=== PATIENT | male | born 1955 | race Caucasian/White ===

== ENCOUNTER 2016-07-27 00:09 | Inpatient (IN) | payer MEDICARE, MEDICAID ==
[2016-07-27] VITALS (8 sets, daily range): BP systolic 103–149; BP diastolic 57–76
[~2016-07-27] VITALS: Ht 185.4 cm; Wt 72.1 kg
[~2016-07-27 00:09] MED LIST: ACETAMINOP160 MG/54 GT; ALBUTEROL SULF8.5 GM INH; ASCORBIC ACID250 MG GT; ATIVAN1 MG ORAL; ATIVAN4 MG/1 ML IVP; ATORVASTATIN CA10 MG NGT; ATORVASTATIN CA10 MG PO; AUGMENTIN 875-1 EAC1 ORAL; AZO CRANBERRY1 EACH PO; BENADRYL50 MG NG; CIPRO500 MG PO; COGENTIN1 MG ORAL; COLACE100 MG ORAL; CRANBERRY425 MG GT; DEPAKENE L250 MG/5 M GT; DEPAKENE250 MG GT; DEPAKENE250 MG NGT; DEPAKOTE500 MG PO; DEXTROSE 50%-WA50 M1 IV; DIFLUCAN200 MG GT; DILANTIN100 MG ORAL; DIVALPROEX SOD500 MG; DOCUSATE SODIU100 M2 GT; DUONEB 0.5-3(2.53 ML HHN; FAMOTIDINE20 MG GT; FLONASE1 SPRAYS NASAL; HALOPERIDOL1 MG ORAL; HEPARIN SO5000 UNIT6 SUBQ; HEPARIN SO5000 UNITS INJ; HUMALOG 75/255 UNIT1; KEPPRA LIQ100 MG/1 M GT; KEPPRA LIQ100 MG/1 M ORAL; KEPPRA XR750 MG NGT; KEPPRA500 MG ORAL; KEPPRA750 MG GT; KLONOPIN0.5 MG NG; LACTULOSE20 GM/301 ORAL; LANTUS SOL100 UNIT/1 SUBQ; LEVAQUIN750 MG ORAL; LEVEMIR FL100 UNIT/1 SUBQ; LEVETIRACETAM750 MG; LISINOPRIL5 MG; LOPRESSOR25 M1 GT; LORAZEPAM2 MG ORAL; LORAZEPAM2 MG PO; MACROBID100 MG ORAL; METOPROLOL TART25 MG GT; MIRALAX119 GM GT; MIRALAX17 G2 GT; MIRALAX17 GM NGT; MORPHINE 22 MG/1 ML IVP; MULTIVITAMINS1 EAC2 GT; MULTIVITAMINS1 EAC2 ORAL; NEXIUM20 M1 GT; NEXIUM40 MG ORAL; NOVOLOG MI100 UNIT/3 SQ; NOVOLOG MI100 UNITS/ SUBQ; NOVOLOG100 UNIT/3 SUBQ; NOVOLOG100 UNIT/5; NOVOLOG100 UNITS1; NUEDEXTA 20-101 EAC1; NUEDEXTA 20-101 EAC1 PO; OCEAN NASAL2 SPRAYS; OMEPRAZOLE20 M2 ORAL; PEPCID20 MG GT; PEPCID20 MG ORAL; PHENYTOIN SODI100 MG; PHOS-NAK PACKE1 EAC1 GT; POTASSIUM20 MEQ/15 GT; PRINIVIL5 MG NGT; PROCHLORPE10 MG/2 ML IVP; PROSCAR5 MG; PROSCAR5 MG GT; PROSCAR5 MG NGT; PROSCAR5 MG ORAL; PROTONIX40 MG ORAL; PROZAC20 MG ORAL; RANITIDINE HCL150 MG GT; RENVELA0.8 GM GT; RESTORIL30 MG GT; RISPERDAL1 MG ORAL; RISPERDAL2 MG NG; RISPERDAL2 MG ORAL; RISPERIDONE1 MG; RISPERIDONE2 MG; ROCEPHIN 11 GM/50 ML IVPB; TAMSULOSIN HCL0.4 MG; TAMSULOSIN HCL0.4 MG NGT; TYLENOL325 MG GT; TYLENOL650 MG/20. ORAL; VALPROIC A250 MG/51 GT; VALPROIC A500 MG/10 GT; VALPROIC A500 MG/10 ORAL; VANCOMYCIN HCL125 MG GT; VANCOMYCIN1 GM/250 M IVPB; VENTOLIN HFA18 GM INH; VITAMIN C500 M1 GT; VITAMIN C500 M1 ORAL; VITAMIN C500 MG/11 GT; WATER IR; ZANTAC150 MG GT; ZINC SULFATE220 M1 GT; insulin novolog
[2016-07-27] MEDS ORDERED: NS 1000ml 2,200 ML IVLG ONE (00:30)
[2016-07-27] MEDS ORDERED: Acetaminophen 650 MG SUPP RECTAL ONE (00:30)
[2016-07-27] MEDS ORDERED: Tubing IV Cassette IV ONE (01:12)
[2016-07-27 01:23] LABS: KETONES,URINE 3+ (NEGATIVE); LEUKOCYTE ESTERASE ,URINE 2+ (NEGATIVE); NITRITE,URINE NEGATIVE (NEGATIVE); PH,URINE 7 (4.5-8.0); PROTEIN,URINE 2+ (NEGATIVE); UROBILINOGEN,URINE 4 MG/DL (0.0-1.0)
[2016-07-27 01:29] LABS: BASOPHILS % (AUTO) 0.9 % (0.0-2.0); EOSINOPHILS % (AUTO) 0.6 % (0.0-3.0); LYMPHOCYTES % (AUTO) 21.3 % (20.0-45.0); MEAN CORPUSCULAR HEMOGLOBIN 22.3 PG (27.0-31.0); MEAN CORPUSCULAR HGB CONC 31.5 G/DL (32.0-36.0); MEAN CORPUSCULAR VOLUME 71 FL (80-99); MONOCYTES % (AUTO) 11.5 % (1.0-10.0); NEUTROPHILS % (AUTO) 65.8 % (45.0-75.0); PLATELET COUNT 149 K/UL (150-450); RED BLOOD COUNT 7.45 M/UL (4.70-6.10); RED CELL DISTRIBUTION WIDTH 14.1 % (11.6-14.8); WHITE BLOOD COUNT 13.6 K/UL (4.8-10.8)
[2016-07-27 01:37] LABS: INR 1.1 (0.9-1.1); PROTHROMBIN TIME 11.2 SEC (9.30-11.50)
[2016-07-27 01:39] LABS: APPEARANCE,URINE SLIGHTLY CLOUDY
[2016-07-27 01:41] LABS: SQUAMOUS EPITHELIAL CELL,UR FEW /LPF (NONE/OCC)
[2016-07-27 01:42] LABS: BACTERIA,URINE FEW /HPF
[2016-07-27 01:44] LABS: ALANINE AMINOTRANSFERASE 23 U/L (3-41); ALBUMIN/GLOBULIN RATIO 0.8 (1.0-2.7); ANION GAP 16 (5-15); ASPARTATE AMINO TRANSFERASE 22 U/L (5-40); CALCIUM 10.1 mg/dL (8.6-10.2); CARBON DIOXIDE 23 mEQ/L (20-30); CHLORIDE 101 mEQ/L (98-107); CREATININE 0.8 mg/dL (0.7-1.2); GLOMERULAR FILTRATION RATE > 60 mL/min (>60); HEMOLYSIS 46; POTASSIUM 4.8 mEQ/L (3.4-4.9); SODIUM 140 mEQ/L (135-145); TOTAL PROTEIN 8.9 g/dL (6.6-8.7)
[2016-07-27 01:50] LABS: TROPONIN I < 0.30 ng/mL (<=0.30)
[2016-07-27 01:52] LABS: REFLEX LACTIC ACID YES OR NO YES
[2016-07-27] MEDS ORDERED: Zosyn 3.375gm inj ONE (01:57)
[2016-07-27] MEDS ORDERED: NS 100 ML ONE (01:58)
--- NOTE | 2016-07-27 03:51 | Emergency Room Report ---
History of Present Illness General Chief Complaint: Malfunctioning Gastric Tube Source: Medical Record, EMS Present Illness HPI This is a 60-year-old male with multiple medical problems. He resides in a longterm and has a feeding tube. He was just here earlier today for G-tube replacement. A new one was placed and he sent back now because of leaking around it. The new G-tube was only a 16 [place]. No other complaint. Unable to get a further history from the patient. Allergies: Coded Allergies: NO KNOWN DRUG ALLERGIES (Unverified Allergy, Unknown, 08/22/15) Patient History Past Medical History: see triage record, old chart reviewed Past Surgical History: other Pertinent Family History: none Social History: Denies: smoking Immunizations: UTD, other Reviewed Nursing Documentation: PMH: Agreed, PSxH: Agreed Nursing Documentation-PMH Hx Cardiac Problems: Yes Hx Hypertension: Yes Hx Pacemaker: No - SEPSIS Hx Asthma: No - NUSCLE WEAKNESS Hx COPD: Yes Hx Diabetes: Yes Hx Cancer: No Hx Seizures: Yes Hx Speech Problem: Yes Hx Aphasia: Yes Hx Weakness: Yes Review of Systems Eye: Denies: blurred vision, eye pain ENT: Denies: ear pain, nose congestion, throat swelling Respiratory: Denies: cough, shortness of breath Cardiovascular: Denies: chest pain, palpitations Gastrointestinal: Denies: abdominal pain, diarrhea, nausea, vomiting Musculoskeletal: Denies: back pain, joint pain Skin: Denies: rash Neurological: Denies: headache, numbness Endocrine: Denies: increased thirst, increased urine Hematologic/Lymphatic: Denies: easy bruising All Other Systems: limited - Secondary to his condition. Patient is nonverbal. Physical Exam Vital Signs Date Time Temp Pulse Resp B/P Pulse Ox O2 Delivery O2 Flow Rate FiO2 07/27/16 00:10 97.0 131 16 104/71 96 Room Air vitals with fever and tachycardia Sp02 EP Interpretation: reviewed, normal General Appearance: mild distress, Chronically Ill Head: normocephalic, atraumatic Eyes: bilateral eye EOMI, bilateral eye PERRL ENT: hearing grossly normal, normal pharynx Neck: full range of motion, supple, no meningismus Respiratory: chest non-tender, lungs clear, normal breath sounds Cardiovascular #1: regular rate, rhythm - Tachycardia, no murmur Gastrointestinal: normal bowel sounds, non tender, no mass, no organomegaly, no bruit, non-distended, other - G-tube area: This to feeding aching from the stoma. Area is erythematous from the secretion. Musculoskeletal: back normal, other - Extremities contracted Skin: warm/dry Medical Decision Making Diagnostic Impression: Primary Impression: Malfunction of gastrostomy tube Additional Impressions: Dehydration UTI (urinary tract infection) Qualified Codes: N30.00 - Acute cystitis without hematuria Sepsis Qualified Codes: A41.9 - Sepsis, unspecified organism ER Course Patient presents with malfunctioning G-tube. I suspect because 2 small. I replaced with a larger size. There is no leakage. I noticed that he was tachycardic and check a rectal temp he was febrile. Source was probably from urine. Antibiotic started. In November of this year, he grew out Proteus sensitive to Zosyn. Lab Results Impression labs show elevated lactic acid. EKG Diagnostic Results Rate: normal, tachycardiac Rhythm: NSR ST Segments: no acute changes Rhythm Strip Diag. Results EP Interpretation: yes Rate: 110 Rhythm: NSR, no PVC's, no ectopy Chest X-Ray Diagnostic Results EP Interpretation: Yes Findings: no consolidation, no effusion, no pneumothorax, no acute cardiopulmonary disease Number of Views: 1 Other X-Ray Diagnostic Results Other X-Ray Diagnostic Results : X-Ray Ordered: KUB with Gastrografin Date: Jul 27, 2016 Time: 03:50 EP Interpretation: Yes Findings: no fractures, no dislocation, no soft tissue swelling Number of Views: 1 CT/MRI/US Diagnostic Results CT/MRI/US Diagnostic Results : Imaging Test Ordered: CT abdomen and pelvis Impression read by radiologist. No acute process. Last Vital Signs Date Time Temp Pulse Resp B/P Pulse Ox O2 Delivery O2 Flow Rate FiO2 07/27/16 02:16 101.1 125 14 117/72 98 Room Air Status: improved Disposition: ADMITTED INPATIENT Condition: Serious Referrals: TONYA GOOD (PCP) JUSTINE MCCARTHY M.D. Jul 27, 2016 03:51
[2016-07-27 05:26] LABS: CKMB < 1.5 ng/mL (< 6.7)
--- NOTE | 2016-07-27 09:21 | Diagnostic Imaging Report ---
Indication: Abdominal pain Technique: Spiral acquisitions obtained through the abdomen and pelvis. No oral contrast utilized, per emergency room physician request No IV contrast utilized, per referring physician request.. Multiplanar reconstructions were generated. Total dose length product 896 mGycm. CTDIvol(s) 15 mGy Comparison: 04/03/2016 Findings: There is a gastrostomy in place. The balloon is somewhat deep within the gastric lumen rather then pulled up against the inferior gastric wall, but position is otherwise satisfactory. Contrast from previous gastrostomy injection is seen with in the colon. There is some nonspecific mild rectal wall thickening. There is no evidence of diverticulosis or diverticulitis. The appendix is normal. No small bowel distention. No free or loculated intraperitoneal air or fluid. The distal esophagus is unremarkable. The duodenum is unremarkable. Lack of IV contrast limits assessment of solid organs. The gallbladder is nondistended, no gross stones. There is equivocal mild wall thickening, probably an artifact of under distention. The liver, bile ducts, pancreas, spleen, adrenals, right kidney are unremarkable. There is very questionably a tiny left renal calyceal calculus. There is an exophytic lesion coming off of the upper pole of the left kidney which measures 14 mm diameter, demonstrates slightly higher than fluid attenuation, is unchanged in size from the most remote exam of 11/14/2015. A cyst of similar size is demonstrated on a renal ultrasound of 04/04/2016. No retroperitoneal or mesenteric mass or adenopathy. No pelvic mass or adenopathy. Metallic densities are again demonstrated in the left buttock region. A Alexander catheter is present within the bladder. Air within the bladder likely relates to the Alexander catheterization. Fat-containing left inguinal hernia is again demonstrated. The lung bases demonstrate some dependent atelectatic changes. The bones are demineralized. There are degenerative changes of the lumbosacral spine. There is a compression fracture deformity of the L1 vertebral body which is unchanged from previous studies there are inferior endplate compression deformities of the T11 and T10 vertebral bodies which are new since the prior exam. There is a chronic left hip fracture deformity which is unchanged Impression: No definite acute process Equivocal mild gallbladder wall thickening, probably artifact of under distention. Consider ultrasound if there is clinical suspicion for acute cholecystitis area of nonspecific mild rectal wall thickening. Proctitis or mass not excludable. Correlate with clinical findings Gastrostomy in place, somewhat deep within the stomach but position otherwise satisfactory. Note contrast in the colon from recent gastrostomy injection Very questionable tiny left nonobstructive renal calyceal calculus Stable left upper pole renal lesion, probably a cyst based on lack of change from prior studies and apparent presence on recent renal ultrasound L1 vertebral body compression fracture deformity, unchanged. T10 and T11 vertebral body inferior endplate compression fracture deformities, new since 04/03/2016. Consider MRI if this is clinically relevant Left hip fracture deformity, also previously described Other findings as noted, including surgical clips in the left buttock, Alexander catheter, fat-containing left inguinal hernia This agrees with the preliminary interpretation provided overnight by [facility]erad[facility] service. The CT scanner at [facility] is accredited by the [employer] and the scans are performed using protocols designed to limit radiation exposure to as low as reasonably achievable to attain images of sufficient resolution adequate for diagnostic evaluation.
--- NOTE | 2016-07-27 11:29 | Diagnostic Imaging Report ---
Indication: Status post gastrostomy replacement Technique: Supine view of the abdomen after injection of water-soluble contrast into gastrostomy Comparison: none Findings: Contrast opacifies the stomach. No contrast extravasation is demonstrated. The bowel gas pattern is unremarkable. Contrast from previous days gastrostomy injection is demonstrated within the colon. Surgical clips are seen in the left lower quadrant, demonstrated on CT to be within the buttock Impression: Satisfactory position of gastrostomy tube Other findings as noted
[2016-07-27] MEDS ORDERED: Nitroglycerin Subl 0.4mg tab (Bottle Of 25) SL PRN (12:45)
[2016-07-27] MEDS ORDERED: DuoNeb 0.5-3(2.5)mg/3ml neb HHN PRN (12:45)
[2016-07-27] MEDS ORDERED: Morphine Sulfate 2mg/ml Inj IVP PRN (12:45)
[2016-07-27] MEDS ORDERED: Miralax 17gm pkt GT PRN (12:45)
--- NOTE | 2016-07-27 12:52 | Consultation ---
History of Present Illness General Date patient seen: Jul 27, 2016 Chief Complaint: Malfunctioning Gastric Tube Referring physician: Dr. Johnson Reason for Consultation: inpatient management of sepsis Present Illness HPI 60-year-old male with Cerebral Palsy, Gtube, [place] [facility] resident He was just in ER for G-tube replacement. He was sent in again because of tachy cardia and leakage form gtube site. Patient cant give any history and all the information is obtained from the chart. Allergies: Coded Allergies: NO KNOWN DRUG ALLERGIES (Unverified Allergy, Unknown, 08/22/15) Medication History Scheduled Ceftriaxone Sod (Ceftriaxone 1 gm-D5w Bag), 1 GM IVPB DAILY, (Reported) Docusate Sodium (Docusate Sodium), 100 MG GT TWICE A DAY, (Reported) Famotidine (Pepcid), 20 MG GT BEDTIME, (Reported) Finasteride* (Proscar*), 5 MG DAILY, (Reported) Finasteride* (Proscar*), 5 MG ORAL DAILY, (Reported) Fluconazole* (Diflucan*), 200 MG GT DAILY, (Reported) Insulin Glargine (Lantus), 13 SUBQ TWICE A DAY, (Reported) Ipratropium/Albuterol Sulfate (DuoNeb 0.5-3(2.5)mg/3ml), 3 ML HHN Q6HR, ( Reported) Levetiracetam (Keppra), 1,500 MG GT Q12HR, (Reported) Metoprolol Tartrate (Metoprolol Tartrate), 25 MG GT EVERY 12 HOURS, (Reported) Ranitidine Hcl* (Zantac*), 300 MG GT DAILY, (Reported) Risperidone* (Risperdal*), 1 MG ORAL BID Valproic Acid (Depakene), 500 MG GT EVERY 12 HOURS, (Reported) Scheduled PRN Acetaminophen (Acetaminophen), 325 MG ORAL EVERY 6 HOURS PRN for Mild Pain/Temp > 100.5, (Reported) Ipratropium/Albuterol Sulfate (DuoNeb 0.5-3(2.5)mg/3ml), 3 ML HHN Q4HR PRN for Shortness of Breath, (Reported) Polyethylene Glycol 3350* (Miralax*), 17 GM GT DAILY PRN for Constipation, ( Reported) Miscellaneous Medications Insulin Aspart (Novolog Flexpen), (Reported) Insuln Asp Prt/Insulin Aspart (Novolog Mix 70-30 Flexpen Syrn), Unknown Dose SQ, (Reported) Patient History Healthcare decision maker Resuscitation status Advanced Directive on File Past Medical/Surgical History Past Medical/Surgical History: (1) Seizure (2) Schizophrenia (3) Diabetes (4) Hypertension (5) cerebral pulsy with advanced mental retardation (6) Malfunction of gastrostomy tube Social History Social History: (1) skilled nursing resident Review of Systems All Other Systems: negative except mentioned in HPI Physical Exam General Appearance: WD/WN Lines, tubes and drains: peripheral, central line, gtube HEENT: normocephalic, atraumatic Neck: non-tender, normal alignment Respiratory/Chest: chest wall non-tender, lungs clear Cardiovascular/Chest: normal peripheral pulses, normal rate Abdomen: normal bowel sounds, non tender Genitourinary/Rectal: normal genital exam Extremities: normal range of motion Last 24 Hour Vital Signs Date Time Temp Pulse Resp B/P Pulse Ox O2 Delivery O2 Flow Rate FiO2 07/27/16 08:07 99.7 103 14 107/57 96 Room Air 07/27/16 08:00 104 07/27/16 07:39 99.7 103 14 107/57 96 Room Air 07/27/16 05:56 99.7 102 14 106/65 100 Room Air 07/27/16 04:20 99.9 107 13 118/67 98 Room Air 07/27/16 02:16 101.1 125 14 117/72 98 Room Air 07/27/16 01:45 101.1 07/27/16 00:10 97.0 131 16 104/71 96 Room Air Intake and Output 07/26/16 07/27/16 19:00 07:00 Intake Total 2300 ml Balance 2300 ml Intake IV Total 2300 ml Laboratory Tests Test 07/27/16 00:50 07/27/16 03:30 White Blood Count 13.6 K/UL (4.8-10.8) H Red Blood Count 7.45 M/UL (4.70-6.10) H Hemoglobin 16.6 G/DL (14.2-18.0) Hematocrit 52.8 % (42.0-52.0) H Mean Corpuscular Volume 71 FL (80-99) L Mean Corpuscular Hemoglobin 22.3 PG (27.0-31.0) L Mean Corpuscular Hemoglobin Concent 31.5 G/DL (32.0-36.0) L Red Cell Distribution Width 14.1 % (11.6-14.8) Platelet Count 149 K/UL (150-450) L Mean Platelet Volume 12.0 FL (6.5-10.1) H Neutrophils (%) (Auto) 65.8 % (45.0-75.0) Lymphocytes (%) (Auto) 21.3 % (20.0-45.0) Monocytes (%) (Auto) 11.5 % (1.0-10.0) H Eosinophils (%) (Auto) 0.6 % (0.0-3.0) Basophils (%) (Auto) 0.9 % (0.0-2.0) Prothrombin Time 11.2 SEC (9.30-11.50) Prothromb Time International Ratio 1.1 (0.9-1.1) Activated Partial Thromboplast Time 20 SEC (23-33) L Urine Color Yellow Urine Appearance Slightly cloudy Urine pH 7 (4.5-8.0) Urine Specific [place] 1.010 (1.005-1.035) Urine Protein 2+ (NEGATIVE) H Urine Glucose (UA) Negative (NEGATIVE) Urine Ketones 3+ (NEGATIVE) H Urine Occult Blood 2+ (NEGATIVE) H Urine Nitrite Negative (NEGATIVE) Urine Bilirubin Negative (NEGATIVE) Urine Urobilinogen 4 MG/DL (0.0-1.0) H Urine Leukocyte Esterase 2+ (NEGATIVE) H Urine RBC 5-10 /HPF (0 - 0) H Urine WBC 5-10 /HPF (0 - 0) H Urine Squamous Epithelial Cells Few /LPF (NONE/OCC) Urine Bacteria Few /HPF (NONE) Sodium Level 140 mEQ/L (135-145) Potassium Level 4.8 mEQ/L (3.4-4.9) Chloride Level 101 mEQ/L (98-107) Carbon Dioxide Level 23 mEQ/L (20-30) Anion Gap 16 (5-15) H Blood Urea Nitrogen 31 mg/dL (7-23) H Creatinine 0.8 mg/dL (0.7-1.2) Estimat Glomerular Filtration Rate > 60 mL/min (>60) Glucose Level 141 mg/dL (74-106) H Lactic Acid Level 4.00 mmol/L (0.66-2.22) H 1.40 mmol/L (0.66-2.22) Calcium Level 10.1 mg/dL (8.6-10.2) Total Bilirubin 0.5 mg/dL (0.0-1.2) Aspartate Amino Transf (AST/SGOT) 22 U/L (5-40) Alanine Aminotransferase (ALT/SGPT) 23 U/L (3-41) Alkaline Phosphatase 121 U/L (40-129) Total Creatine Kinase 23 U/L (38-174) L Creatine Kinase MB < 1.5 ng/mL (< 6.7) Creatine Kinase MB Relative Index Troponin I < 0.30 ng/mL (<=0.30) Total Protein 8.9 g/dL (6.6-8.7) H Albumin 4.1 g/dL (3.5-5.2) Globulin 4.8 g/dL Albumin/Globulin Ratio 0.8 (1.0-2.7) L Height (Feet): 6 Height (Inches): 1.00 Weight (Pounds): 159 Medications Current Medications Medications (Trade) Dose Ordered Sig/Monalisa Route PRN Reason Start Time Stop Time Status Last Admin Dose Admin Acetaminophen (Tylenol) 650 mg Q4H PRN ORAL fever 07/27/16 12:45 08/26/16 12:44 UNV Albuterol/ Ipratropium 3 ml 3 ml EVERY 4 HOURS PRN HHN Shortness of Breath 07/27/16 12:45 08/01/16 12:44 UNV Cefepime HCl 2 gm/ Dextrose 100 ml @ 100 mls/hr EVERY 12 HOURS IV 07/27/16 21:00 08/03/16 20:59 UNV Finasteride (Proscar) 5 mg DAILY GT 07/28/16 09:00 08/27/16 08:59 UNV Heparin Sodium (Porcine) (Heparin 5000 units/ml) 5,000 units EVERY 12 HOURS SUBQ 07/27/16 21:00 08/26/16 20:59 UNV Levetiracetam (Keppra) 1,500 mg Q12HR GT 07/27/16 21:00 08/26/16 20:59 UNV Morphine Sulfate (Morphine Sulfate) 2 mg EVERY 4 HOURS PRN IVP Moderate Pain (Pain Scale 4-6) 07/27/16 12:45 08/03/16 12:44 UNV Nitroglycerin 0.4 mg 0.4 mg Every 5 Minutes PRN SL Prn Chest Pain 07/27/16 12:45 08/26/16 12:44 UNV Ondansetron HCl (Zofran) 4 mg Q6H PRN IVP Nausea & Vomiting 07/27/16 12:45 08/26/16 12:44 UNV Polyethylene Glycol (Miralax) 17 gm DAILYPRN PRN ORAL Constipation 07/27/16 12:45 08/26/16 12:44 UNV Risperidone (RisperDAL) 1 mg BID ORAL 07/27/16 18:00 08/26/16 17:59 UNV Sodium Chloride (0.45% NS 1000ml) 1,000 ml @ 150 mls/hr Q6H40M IV 07/27/16 12:36 08/26/16 12:35 UNV Temazepam (Restoril) 15 mg HSPRN PRN ORAL Insomnia 07/27/16 12:45 08/03/16 12:44 UNV Valproic Acid (Depakene) 500 mg EVERY 12 HOURS ORAL 07/27/16 21:00 08/26/16 20:59 UNV Vancomycin HCl/ Dextrose (Vancomycin/D5W 250ml) 250 ml @ 167 mls/hr Q24H IV 07/28/16 00:30 08/02/16 00:29 UNV Assessment/Plan Problem List: (1) Hypertension ICD Codes: I10 - Hypertension SNOMED: 31108245 (2) Seizure ICD Codes: R56.9 - Convulsions SNOMED: 86701510 (3) Sepsis ICD Codes: A41.9 - Sepsis SNOMED: 82434394 (4) UTI (urinary tract infection) ICD Codes: N39.0 - Urinary tract infection, site not specified SNOMED: 03947094 Qualifiers: Qualified Codes: N30.00 - Acute cystitis without hematuria (5) Malfunction of gastrostomy tube ICD Codes: K94.23 - Gastrostomy malfunction SNOMED: 819593895 (6) skilled nursing resident ICD Codes: Z59.3 - Problems related to living in residential institution SNOMED: 467415865 (7) cerebral pulsy with advanced mental retardation (8) Schizophrenia ICD Codes: F20.9 - Schizophrenia, unspecified SNOMED: 87819042 Assessment/Plan IV fluids IV antibiotics flowers culture dvt prophylaxis monitor bp and heart rate titrate cardiac meds NEEL LUJAN Jul 27, 2016 12:52
--- NOTE | 2016-07-27 13:47 | Cardiology Report ---
APPROVED REPORT EKG Measurement Heart [id number] Sinus tachycardia Otherwise normal ECG
--- NOTE | 2016-07-27 14:11 | Diagnostic Imaging Report ---
Indication: DYSPNEA Technique: One view of the chest Comparison: 12 hours earlier Findings: Lungs and pleural spaces remain clear. Heart size is normal. Contrast from previous gastrostomy studies is seen within the colon Impression: No acute process
[2016-07-27 15:53] LABS: APPEARANCE,URINE CLEAR; KETONES,URINE 4+ (NEGATIVE); LEUKOCYTE ESTERASE ,URINE 1+ (NEGATIVE); NITRITE,URINE NEGATIVE (NEGATIVE); PH,URINE 8 (4.5-8.0); PROTEIN,URINE 2+ (NEGATIVE); UROBILINOGEN,URINE NORMAL MG/DL (0.0-1.0)
[2016-07-27 15:59] LABS: BACTERIA,URINE FEW /HPF
--- NOTE | 2016-07-27 16:53 | Cardiac Electrophysiology PN ---
Subjective Subjective [id number] Objective Last 24 Hour Vital Signs Date Time Temp Pulse Resp B/P Pulse Ox O2 Delivery O2 Flow Rate FiO2 07/27/16 16:00 97.7 136 33 149/76 96 Room Air 07/27/16 12:00 98.1 113 16 103/67 96 Room Air 07/27/16 08:07 99.7 103 14 107/57 96 Room Air 07/27/16 08:00 104 07/27/16 08:00 97.7 103 18 104/64 97 Room Air 07/27/16 07:39 99.7 103 14 107/57 96 Room Air 07/27/16 05:56 99.7 102 14 106/65 100 Room Air 07/27/16 04:20 99.9 107 13 118/67 98 Room Air 07/27/16 02:16 101.1 125 14 117/72 98 Room Air 07/27/16 01:45 101.1 07/27/16 00:10 97.0 131 16 104/71 96 Room Air Intake and Output 07/26/16 07/27/16 19:00 07:00 Intake Total 2300 ml Balance 2300 ml Intake IV Total 2300 ml Laboratory Tests Test 07/27/16 00:50 07/27/16 03:30 07/27/16 15:00 White Blood Count 13.6 K/UL (4.8-10.8) H Red Blood Count 7.45 M/UL (4.70-6.10) H Hemoglobin 16.6 G/DL (14.2-18.0) Hematocrit 52.8 % (42.0-52.0) H Mean Corpuscular Volume 71 FL (80-99) L Mean Corpuscular Hemoglobin 22.3 PG (27.0-31.0) L Mean Corpuscular Hemoglobin Concent 31.5 G/DL (32.0-36.0) L Red Cell Distribution Width 14.1 % (11.6-14.8) Platelet Count 149 K/UL (150-450) L Mean Platelet Volume 12.0 FL (6.5-10.1) H Neutrophils (%) (Auto) 65.8 % (45.0-75.0) Lymphocytes (%) (Auto) 21.3 % (20.0-45.0) Monocytes (%) (Auto) 11.5 % (1.0-10.0) H Eosinophils (%) (Auto) 0.6 % (0.0-3.0) Basophils (%) (Auto) 0.9 % (0.0-2.0) Prothrombin Time 11.2 SEC (9.30-11.50) Prothromb Time International Ratio 1.1 (0.9-1.1) Activated Partial Thromboplast Time 20 SEC (23-33) L Urine Color Yellow Yellow Urine Appearance Slightly cloudy Clear Urine pH 7 (4.5-8.0) 8 (4.5-8.0) Urine Specific [place] 1.010 (1.005-1.035) 1.015 (1.005-1.035) Urine Protein 2+ (NEGATIVE) H 2+ (NEGATIVE) H Urine Glucose (UA) Negative (NEGATIVE) Negative (NEGATIVE) Urine Ketones 3+ (NEGATIVE) H 4+ (NEGATIVE) H Urine Occult Blood 2+ (NEGATIVE) H 1+ (NEGATIVE) H Urine Nitrite Negative (NEGATIVE) Negative (NEGATIVE) Urine Bilirubin Negative (NEGATIVE) Negative (NEGATIVE) Urine Urobilinogen 4 MG/DL (0.0-1.0) H Normal MG/DL (0.0-1.0) Urine Leukocyte Esterase 2+ (NEGATIVE) H 1+ (NEGATIVE) H Urine RBC 5-10 /HPF (0 - 0) H 2-4 /HPF (0 - 0) H Urine WBC 5-10 /HPF (0 - 0) H 5-10 /HPF (0 - 0) H Urine Squamous Epithelial Cells Few /LPF (NONE/OCC) None /LPF (NONE/OCC) Urine Bacteria Few /HPF (NONE) Few /HPF (NONE) Sodium Level 140 mEQ/L (135-145) Potassium Level 4.8 mEQ/L (3.4-4.9) Chloride Level 101 mEQ/L (98-107) Carbon Dioxide Level 23 mEQ/L (20-30) Anion Gap 16 (5-15) H Blood Urea Nitrogen 31 mg/dL (7-23) H Creatinine 0.8 mg/dL (0.7-1.2) Estimat Glomerular Filtration Rate > 60 mL/min (>60) Glucose Level 141 mg/dL (74-106) H Lactic Acid Level 4.00 mmol/L (0.66-2.22) H 1.40 mmol/L (0.66-2.22) Calcium Level 10.1 mg/dL (8.6-10.2) Total Bilirubin 0.5 mg/dL (0.0-1.2) Aspartate Amino Transf (AST/SGOT) 22 U/L (5-40) Alanine Aminotransferase (ALT/SGPT) 23 U/L (3-41) Alkaline Phosphatase 121 U/L (40-129) Total Creatine Kinase 23 U/L (38-174) L Creatine Kinase MB < 1.5 ng/mL (< 6.7) Creatine Kinase MB Relative Index Troponin I < 0.30 ng/mL (<=0.30) Total Protein 8.9 g/dL (6.6-8.7) H Albumin 4.1 g/dL (3.5-5.2) Globulin 4.8 g/dL Albumin/Globulin Ratio 0.8 (1.0-2.7) L HUMPHREY FRANCO Jul 27, 2016 16:53
--- NOTE | 2016-07-27 17:29 | Wound Care Consultation ---
Wound Assessment Wound Assessment #1: Wound Present on Admission: Yes New Wound: No Status Change of Wound: No Wound Location Body Site Modif: right Wound Location Body Site: heel Wound Type: pressure ulcer Terry Test: Does not Terry Pressure Ulcer Stage: deep tissue injury Wound Thickness: Full Thickness Wound Length: 5.0 Wound Width: 5.0 Wound Depth: utd Percent of Wound Purple/Maroon: 100 Wound Drainage Amount: None Wound Drainage Odor: None/Absent Tissue Surrounding Wound: Erythemic Wound General Appearance: Asymptomatic, Reddened Wound Assessment #2: Wound Number: #2 Wound Present on Admission: Yes New Wound: No Status Change of Wound: No Wound Location Body Site Modif: right Wound Location Body Site: toe - 2nd Wound Type: pressure ulcer Terry Test: Does not Terry Pressure Ulcer Stage: deep tissue injury Wound Thickness: Full Thickness Wound Length: 0.5 Wound Width: 0.5 Wound Depth: utd Percent of Wound Purple/Maroon: 100 Wound Drainage Amount: None Wound Drainage Odor: None/Absent Tissue Surrounding Wound: Intact Wound General Appearance: Asymptomatic, Reddened Wound Assessment #3: Wound Number: #3 Wound Present on Admission: Yes New Wound: No Status Change of Wound: No Wound Location Body Site Modif: right Wound Location Body Site: toe - 3rd Wound Type: pressure ulcer Terry Test: Does not Terry Pressure Ulcer Stage: deep tissue injury Wound Thickness: Full Thickness Wound Length: 0.3 Wound Width: 0.3 Wound Depth: utd Percent of Wound Purple/Maroon: 100 Wound Drainage Amount: None Wound Drainage Odor: None/Absent Tissue Surrounding Wound: Intact Wound General Appearance: Asymptomatic, Reddened Wound Assessment #4: Wound Number: #4 Wound Present on Admission: Yes New Wound: No Status Change of Wound: No Wound Location Body Site Modif: right Wound Location Body Site: toe - 4th Wound Type: pressure ulcer Terry Test: Does not Terry Pressure Ulcer Stage: deep tissue injury Wound Thickness: Full Thickness Wound Length: 0.3 Wound Width: 0.3 Wound Depth: utd Percent of Wound Purple/Maroon: 100 Wound Drainage Amount: None Wound Drainage Odor: None/Absent Tissue Surrounding Wound: Intact Wound General Appearance: Asymptomatic, Reddened Wound Comment #1 Right heel DTI #2 Right 2nd, 3rd,and 4th toe DTI #3 GT site redness with erosion Recommendation -Keep clean and dry -Turn and reposition -Local wound care as ordered -Optimize nutrition -Offload both heels -Low air loss overlay mattress -Assess and f/u accordingly for any changes PAIGE ZIMMERMAN RN Jul 27, 2016 17:29
[2016-07-27] MEDS: Heparin 5000 units/ml inj SUBQ SCH (20:34)
[2016-07-27] MEDS: Valproic Acid 250mg/5ml Liquid GT SCH (20:36)
[2016-07-27] MEDS: levETIRAcetam 500mg/5ml Liquid GT SCH (20:36)
--- NOTE | 2016-07-27 22:27 | Consultation ---
DATE OF CONSULTATION: 07/27/2016 CARDIOLOGY CONSULTATION CONSULTING PHYSICIAN: Sage Araujo M.D. REFERRING PHYSICIAN: Donaldo Johnson D.O. REASON FOR CONSULTATION: Tachycardia with heart rate in the 140s. HISTORY OF PRESENT ILLNESS: The patient is a 60-year-old gentleman with history of cerebral palsy and history of G-tube, who is a correction resident was in the ER for G-tube replacement. He was sent again because of tachycardia and leakage from the G-tube site. The patient is nonverbal and old information was obtained from review of the records and discussion with the nurse and Dr. Gracia. While the patient was in the , the patient was found to be tachycardia with heart rate up to 140s. Cardiology consultation was obtained for further evaluation. PAST MEDICAL HISTORY: 1. Hypertension. 2. History of cerebral palsy. 3. History of dysphagia status post G-tube. 4. Seizure disorder. 5. Schizophrenia. MEDICATIONS: Include Proscar, Diflucan, Lantus, Keppra, Risperdal, and . FAMILY HISTORY: Noncontributory. REVIEW OF SYSTEMS: Cannot be obtained. PHYSICAL EXAMINATION: VITAL SIGNS: Blood pressure is 149/76, pulse 130, respiration 33, and temperature 97.7 degrees. HEAD AND NECK: Shows no JVD. LUNGS: Coarse rhonchi. CARDIOVASCULAR: Irregularly irrregular S1 and S2 with no gallop or murmur. Tachycardic. ABDOMEN: Status post G-tube was clamped. EXTREMITIES: No pitting edema. LABORATORY DATA: His laboratories showed white count 13.7, hematocrit of 16.6, and hematocrit 32.8. Sodium 140, potassium 4.8, BUN 31, creatinine 0.8, and glucose 141. Troponin is negative. ASSESSMENT AND PLAN: 1. Tachycardia. He had an EKG that showed like sinus tachycardia. There is no clear evidence of atrial fibrillation or atrial flutter. It is likely to patient's sepsis. We will give the patient intravenous fluids and continue the patient on intravenous antibiotic. Hopefully, we does not reassure that his heart rate is going to improve. The patient is likely also dehydrated in view of patient's azotemia with BUN of 31 and creatinine of 0.8. His troponin is negative. 2. Gastrostomy tube malfunction. The tube is clamped. The patient is on intravenous antibiotics. 3. Cerebral palsy. 4. Seizure disorder. 5. Schizophrenia. An echocardiogram will also be ordered for further evaluation. Thank you very much, Dr. Johnson, for allowing me to participate in the care of this patient. Please do not hesitate to contact me for any questions regarding my evaluation. The case was discussed with Dr. Gracia as well. Sage Araujo M.D. DR: MYESHA JOB#: [id number] CC:
[2016-07-28] VITALS (8 sets, daily range): BP systolic 84–109; BP diastolic 52–71
[2016-07-28 06:46] LABS: BASOPHILS % (AUTO) 0.6 % (0.0-2.0); EOSINOPHILS % (AUTO) 1.1 % (0.0-3.0); LYMPHOCYTES % (AUTO) 7.8 % (20.0-45.0); MEAN CORPUSCULAR HEMOGLOBIN 22.2 PG (27.0-31.0); MEAN CORPUSCULAR HGB CONC 31.3 G/DL (32.0-36.0); MEAN CORPUSCULAR VOLUME 71 FL (80-99); MEAN PLATELET VOLUME 9.6 FL (6.5-10.1); MONOCYTES % (AUTO) 14.1 % (1.0-10.0); NEUTROPHILS % (AUTO) 76.5 % (45.0-75.0); PLATELET COUNT 188 K/UL (150-450); RED BLOOD COUNT 5.37 M/UL (4.70-6.10); RED CELL DISTRIBUTION WIDTH 13.2 % (11.6-14.8); WHITE BLOOD COUNT 13.2 K/UL (4.8-10.8)
[2016-07-28 06:56] LABS: ALANINE AMINOTRANSFERASE 14 U/L (3-41); ALBUMIN/GLOBULIN RATIO 0.9 (1.0-2.7); ANION GAP 16 (5-15); ASPARTATE AMINO TRANSFERASE 11 U/L (5-40); CALCIUM 8.4 mg/dL (8.6-10.2); CARBON DIOXIDE 21 mEQ/L (20-30); CHLORIDE 104 mEQ/L (98-107); CREATININE 0.7 mg/dL (0.7-1.2); GLOMERULAR FILTRATION RATE > 60 mL/min (>60); HEMOLYSIS 3; SODIUM 141 mEQ/L (135-145); TOTAL PROTEIN 6.5 g/dL (6.6-8.7)
[2016-07-28 07:22] LABS: TROPONIN I < 0.30 ng/mL (<=0.30)
[2016-07-28] MEDS: Valproic Acid 250mg/5ml Liquid GT SCH ×2 (09:41→21:03)
[2016-07-28] MEDS: levETIRAcetam 500mg/5ml Liquid GT SCH ×2 (09:42→21:03)
[2016-07-28] MEDS: Heparin 5000 units/ml inj SUBQ SCH ×2 (09:44→21:11)
--- NOTE | 2016-07-28 11:32 | Pulmonology Progress Note ---
Assessment/Plan Problems: (1) Hypertension (2) Seizure (3) Sepsis (4) UTI (urinary tract infection) (5) Malfunction of gastrostomy tube (6) [facility] resident (7) cerebral pulsy with advanced mental retardation (8) Schizophrenia Respiratory: monitor respiratory rate Cardiac: continue to monitor HR/BP Renal: F/U I&O, keep IV fluid Infectious Disease: check cultures, continue antibiotics Gastrointestinal: hold feedings, other - GI evaluaiton Endocrine: continue sliding scale insulin Hematologic: monitor H/H, transfuse if hgb<8.5 Neurologic: PRN Ativan, PRN Morphine, keep patient comfortable Affect: PRN ativan Time Spent (Minutes): 40 Notes Reviewed: district manager in training, cardio Discussed with: nurses, consultants, case fitter Subjective ROS Limited/Unobtainable: Yes Allergies: Coded Allergies: NO KNOWN DRUG ALLERGIES (Unverified Allergy, Unknown, 08/22/15) Objective Last 24 Hour Vital Signs Date Time Temp Pulse Resp B/P Pulse Ox O2 Delivery O2 Flow Rate FiO2 07/28/16 08:01 97.7 20 98/52 99 Room Air 07/28/16 08:00 87 07/28/16 04:00 97.7 103 21 100/55 96 Room Air 07/28/16 03:47 93 07/28/16 00:00 97.8 93 19 99/71 99 Room Air 07/27/16 23:42 96 07/27/16 20:00 127 07/27/16 20:00 98.1 121 20 115/71 97 Room Air 07/27/16 16:00 97.7 136 33 149/76 96 Room Air 07/27/16 16:00 112 07/27/16 12:00 98.1 113 16 103/67 96 Room Air Intake and Output 07/27/16 07/28/16 19:00 07:00 Intake Total 650 ml 1135 ml Output Total 400 ml 725 ml Balance 250 ml 410 ml Intake Oral 1 ml IV Total 650 ml 1134 ml Output Urine Total 400 ml 725 ml # Bowel Movements 4 General Appearance: WD/WN HEENT: normocephalic Respiratory/Chest: chest wall non-tender, lungs clear Cardiovascular: normal peripheral pulses, normal rate Abdomen: normal bowel sounds, soft, non tender Genitourinary: normal external genitalia Extremities: no cyanosis Skin: no rash, no ulcers Neurologic/Psychiatric: assembler golf 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 head II-XII grossly normal Lymphatic: no neck adenopathy Microbiology Date/Time Source Procedure Growth Status 07/27/16 01:10 Blood Blood Culture - Preliminary NO GROWTH AFTER 24 HOURS Resulted 07/27/16 00:50 Blood Blood Culture - Preliminary NO GROWTH AFTER 24 HOURS Resulted Laboratory Tests 07/27/16 15:00: Urine Color Yellow, Urine Appearance Clear, Urine pH 8, Urine Specific [place] 1.015, Urine Protein 2+H, Urine Glucose (UA) Negative, Urine Ketones 4+H, Urine Occult Blood 1+H, Urine Nitrite Negative, Urine Bilirubin Negative, Urine Urobilinogen Normal, Urine Leukocyte Esterase 1+H, Urine RBC 2-4H, Urine WBC 5- 10H, Urine Squamous Epithelial Cells None, Urine Bacteria Few 07/28/16 06:10: White Blood Count 13.2H, Red Blood Count 5.37, Hemoglobin 11.9L, Hematocrit 38.1L, Mean Corpuscular Volume 71L, Mean Corpuscular Hemoglobin 22.2L, Mean Corpuscular Hemoglobin Concent 31.3L, Red Cell Distribution Width 13.2, Platelet Count 188, Mean Platelet Volume 9.6, Neutrophils (%) (Auto) 76.5H, Lymphocytes (%) (Auto) 7.8L, Monocytes (%) (Auto) 14.1H, Eosinophils (%) (Auto) 1.1, Basophils (%) (Auto) 0.6, Sodium Level 141, Potassium Level 4.0, Chloride Level 104, Carbon Dioxide Level 21, Anion Gap 16H, Blood Urea Nitrogen 16, Creatinine 0.7, Estimat Glomerular Filtration Rate > 60, Glucose Level 135H, Calcium Level 8.4L, Total Bilirubin 0.5, Aspartate Amino Transf (AST/SGOT) 11, Alanine Aminotransferase (ALT/SGPT) 14, Alkaline Phosphatase 81, Troponin I < 0.30, Pro-B-Type Natriuretic Peptide 187H, Total Protein 6.5L, Albumin 3.2L, Globulin 3.3, Albumin/Globulin Ratio 0.9L Current Medications Medications (Trade) Dose Ordered Sig/Monalisa Route PRN Reason Start Time Stop Time Status Last Admin Dose Admin Acetaminophen (Tylenol) 650 mg Q4H PRN ORAL fever 07/27/16 12:45 08/26/16 12:44 Albuterol/ Ipratropium 3 ml 3 ml Q4H PRN HHN Shortness of Breath 07/27/16 12:45 08/01/16 12:44 Cefepime HCl 2 gm/ Dextrose 100 ml @ 100 mls/hr Q12H IV 07/27/16 14:30 08/03/16 14:29 07/28/16 02:00 Finasteride (Proscar) 5 mg DAILY GT 07/28/16 09:00 08/27/16 08:59 07/28/16 09:00 Heparin Sodium (Porcine) (Heparin 5000 units/ml) 5,000 units EVERY 12 HOURS SUBQ 07/27/16 21:00 08/26/16 20:59 07/28/16 09:44 Levetiracetam (Keppra) 1,500 mg Q12HR GT 07/27/16 21:00 08/26/16 20:59 07/28/16 09:42 Morphine Sulfate (Morphine Sulfate) 2 mg Q4H PRN IVP Moderate Pain (Pain Scale 4-6) 07/27/16 12:45 08/03/16 12:44 Nitroglycerin 0.4 mg 0.4 mg Q5M X 3 DOSES PRN SL Prn Chest Pain 07/27/16 12:45 08/26/16 12:44 Ondansetron HCl (Zofran) 4 mg Q6H PRN IVP Nausea & Vomiting 07/27/16 12:45 08/26/16 12:44 Polyethylene Glycol (Miralax) 17 gm DAILYPRN PRN GT Constipation 07/27/16 12:45 08/26/16 12:44 Risperidone (RisperDAL) 1 mg BID ORAL 07/27/16 18:00 08/26/16 17:59 07/28/16 09:40 Sodium Chloride (0.45% NS 1000ml) 1,000 ml @ 150 mls/hr Q6H40M IV 07/27/16 14:00 08/26/16 13:59 07/28/16 09:46 Temazepam (Restoril) 15 mg HSPRN PRN GT Insomnia 07/27/16 12:45 08/03/16 12:44 Valproic Acid (Depakene) 500 mg EVERY 12 HOURS GT 07/27/16 21:00 08/26/16 20:59 12/31/16 09:41 Vancomycin HCl/ Dextrose (Vancomycin/D5W 250ml) 250 ml @ 167 mls/hr Q12H IVPB 07/27/16 15:30 08/01/16 15:29 07/28/16 03:01 NEEL LUJAN Jul 28, 2016 11:32
[2016-07-28] MEDS ORDERED: Morphine Sulfate 2mg/ml Inj IVP PRN (13:00)
[2016-07-28] MEDS ORDERED: Nitroglycerin Subl 0.4mg tab (Bottle Of 25) SL PRN (14:15)
--- NOTE | 2016-07-28 14:37 | Diagnostic Imaging Report ---
Indication: SOB Technique: One view of the chest Comparison: 04/03/2016 Findings: Contrast from recent gastrostomy injection is seen within the colon. Lungs and pleural space are clear except for minimal right perihilar atelectasis. Heart size is normal. There is no significant interim change Impression: No acute process
[2016-07-28] MEDS ORDERED: LORazepam 1mg tab ORAL PRN (14:45)
[2016-07-28] MEDS ORDERED: LORazepam 1mg tab GT PRN (14:58)
[2016-07-28] MEDS ORDERED: Miralax 17gm pkt GT PRN (15:00)
[2016-07-28] MEDS ORDERED: DuoNeb 0.5-3(2.5)mg/3ml neb HHN PRN (15:00)
--- NOTE | 2016-07-28 15:11 | General Progress Note ---
Assessment/Plan Problem List: (1) Acute lower UTI (2) Seizure disorder, complex partial ICD Codes: G40.209 - Localization-related (focal) (partial) symptomatic epilepsy and epileptic syndromes with complex partial seizures, not intractable , without status epilepticus SNOMED: 244840703 (3) Seizure ICD Codes: R56.9 - Seizure SNOMED: 81373885 (4) Hyperlipidemia ICD Codes: E78.5 - Hyperlipidemia SNOMED: 67914509 (5) Schizophrenia ICD Codes: F20.9 - Schizophrenia, unspecified SNOMED: 88732389 (6) Diabetes ICD Codes: E11.9 - Diabetes SNOMED: 00840605 (7) Sepsis ICD Codes: A41.9 - Sepsis SNOMED: 22599287 Status: progressing Assessment/Plan afebrile abx per pulmonary vitals stable cp reviewed chart and labs Subjective ROS Limited/Unobtainable: Yes Constitutional: Reports: no symptoms Allergies: Coded Allergies: NO KNOWN DRUG ALLERGIES (Unverified Allergy, Unknown, 08/22/15) Objective Last 24 Hour Vital Signs Date Time Temp Pulse Resp B/P Pulse Ox O2 Delivery O2 Flow Rate FiO2 07/28/16 12:00 83 07/28/16 12:00 97.8 19 105/61 99 Room Air 07/28/16 08:01 97.7 20 98/52 99 Room Air 07/28/16 08:00 87 07/28/16 04:00 97.7 103 21 100/55 96 Room Air 07/28/16 03:47 93 07/28/16 00:00 97.8 93 19 99/71 99 Room Air 07/27/16 23:42 96 07/27/16 20:00 127 07/27/16 20:00 98.1 121 20 115/71 97 Room Air 07/27/16 16:00 97.7 136 33 149/76 96 Room Air 07/27/16 16:00 112 Intake and Output 07/27/16 07/28/16 19:00 07:00 Intake Total 650 ml 1135 ml Output Total 400 ml 725 ml Balance 250 ml 410 ml Intake Oral 1 ml IV Total 650 ml 1134 ml Output Urine Total 400 ml 725 ml # Bowel Movements 4 Laboratory Tests 07/28/16 06:10: White Blood Count 13.2H, Red Blood Count 5.37, Hemoglobin 11.9L, Hematocrit 38.1L, Mean Corpuscular Volume 71L, Mean Corpuscular Hemoglobin 22.2L, Mean Corpuscular Hemoglobin Concent 31.3L, Red Cell Distribution Width 13.2, Platelet Count 188, Mean Platelet Volume 9.6, Neutrophils (%) (Auto) 76.5H, Lymphocytes (%) (Auto) 7.8L, Monocytes (%) (Auto) 14.1H, Eosinophils (%) (Auto) 1.1, Basophils (%) (Auto) 0.6, Sodium Level 141, Potassium Level 4.0, Chloride Level 104, Carbon Dioxide Level 21, Anion Gap 16H, Blood Urea Nitrogen 16, Creatinine 0.7, Estimat Glomerular Filtration Rate > 60, Glucose Level 135H, Calcium Level 8.4L, Total Bilirubin 0.5, Aspartate Amino Transf (AST/SGOT) 11, Alanine Aminotransferase (ALT/SGPT) 14, Alkaline Phosphatase 81, Troponin I < 0.30, Pro-B-Type Natriuretic Peptide 187H, Total Protein 6.5L, Albumin 3.2L, Globulin 3.3, Albumin/Globulin Ratio 0.9L Height (Feet): 6 Height (Inches): 1.00 Weight (Pounds): 159 EENT: PERRL/EOMI Neck: supple Cardiovascular: normal rate Respiratory/Chest: lungs clear Abdomen: soft Amy Martínez MD Jul 28, 2016 15:11
--- NOTE | 2016-07-28 15:19 | General Progress Note ---
Assessment/Plan Assessment/Plan Assessment (1) Seizure (2) Schizophrenia (3) Diabetes (4) Hypertension (5) cerebral pulsy with advanced mental retardation (6) Malfunction of gastrostomy tube - leakage Recommendations - Trial of TF - GT repositioned - Check C Diff - May need G to J conversion Subjective Allergies: Coded Allergies: NO KNOWN DRUG ALLERGIES (Unverified Allergy, Unknown, 08/22/15) Objective Last 24 Hour Vital Signs Date Time Temp Pulse Resp B/P Pulse Ox O2 Delivery O2 Flow Rate FiO2 07/28/16 12:00 83 07/28/16 12:00 97.8 19 105/61 99 Room Air 07/28/16 08:01 97.7 20 98/52 99 Room Air 07/28/16 08:00 87 07/28/16 04:00 97.7 103 21 100/55 96 Room Air 07/28/16 03:47 93 07/28/16 00:00 97.8 93 19 99/71 99 Room Air 07/27/16 23:42 96 07/27/16 20:00 127 07/27/16 20:00 98.1 121 20 115/71 97 Room Air 07/27/16 16:00 97.7 136 33 149/76 96 Room Air 07/27/16 16:00 112 Intake and Output 07/27/16 07/28/16 19:00 07:00 Intake Total 650 ml 1135 ml Output Total 400 ml 725 ml Balance 250 ml 410 ml Intake Oral 1 ml IV Total 650 ml 1134 ml Output Urine Total 400 ml 725 ml # Bowel Movements 4 Laboratory Tests 07/28/16 06:10: White Blood Count 13.2H, Red Blood Count 5.37, Hemoglobin 11.9L, Hematocrit 38.1L, Mean Corpuscular Volume 71L, Mean Corpuscular Hemoglobin 22.2L, Mean Corpuscular Hemoglobin Concent 31.3L, Red Cell Distribution Width 13.2, Platelet Count 188, Mean Platelet Volume 9.6, Neutrophils (%) (Auto) 76.5H, Lymphocytes (%) (Auto) 7.8L, Monocytes (%) (Auto) 14.1H, Eosinophils (%) (Auto) 1.1, Basophils (%) (Auto) 0.6, Sodium Level 141, Potassium Level 4.0, Chloride Level 104, Carbon Dioxide Level 21, Anion Gap 16H, Blood Urea Nitrogen 16, Creatinine 0.7, Estimat Glomerular Filtration Rate > 60, Glucose Level 135H, Calcium Level 8.4L, Total Bilirubin 0.5, Aspartate Amino Transf (AST/SGOT) 11, Alanine Aminotransferase (ALT/SGPT) 14, Alkaline Phosphatase 81, Troponin I < 0.30, Pro-B-Type Natriuretic Peptide 187H, Total Protein 6.5L, Albumin 3.2L, Globulin 3.3, Albumin/Globulin Ratio 0.9L Height (Feet): 6 Height (Inches): 1.00 Weight (Pounds): 159 ANTHONYEVONKIMBERLY Jul 28, 2016 15:19
--- NOTE | 2016-07-28 15:21 | Cardiac Electrophysiology PN ---
Assessment/Plan Assessment/Plan 1. Sinus Tachycardia. With no evidence of atrial fibrillation or atrial flutter. It is likely to patient's sepsis. Continue intravenous fluids and intravenous antibiotic. The patient is likely also dehydrated in view of patient's azotemia with BUN of 31 and creatinine of 0.8. His troponin is negative. 2. Gastrostomy tube malfunction. The tube is clamped. The patient is on intravenous antibiotics. 3. Cerebral palsy. 4. Seizure disorder. 5. Schizophrenia. DIXON SORENSEN DC tele Subjective Subjective Nonverbal. No events overnight. Comfortable. Objective Last 24 Hour Vital Signs Date Time Temp Pulse Resp B/P Pulse Ox O2 Delivery O2 Flow Rate FiO2 07/28/16 12:00 83 07/28/16 12:00 97.8 19 105/61 99 Room Air 07/28/16 08:01 97.7 20 98/52 99 Room Air 07/28/16 08:00 87 07/28/16 04:00 97.7 103 21 100/55 96 Room Air 07/28/16 03:47 93 07/28/16 00:00 97.8 93 19 99/71 99 Room Air 07/27/16 23:42 96 07/27/16 20:00 127 07/27/16 20:00 98.1 121 20 115/71 97 Room Air 07/27/16 16:00 97.7 136 33 149/76 96 Room Air 07/27/16 16:00 112 Intake and Output 07/27/16 07/28/16 19:00 07:00 Intake Total 650 ml 1135 ml Output Total 400 ml 725 ml Balance 250 ml 410 ml Intake Oral 1 ml IV Total 650 ml 1134 ml Output Urine Total 400 ml 725 ml # Bowel Movements 4 Laboratory Tests Test 07/28/16 06:10 White Blood Count 13.2 K/UL (4.8-10.8) H Red Blood Count 5.37 M/UL (4.70-6.10) Hemoglobin 11.9 G/DL (14.2-18.0) L Hematocrit 38.1 % (42.0-52.0) L Mean Corpuscular Volume 71 FL (80-99) L Mean Corpuscular Hemoglobin 22.2 PG (27.0-31.0) L Mean Corpuscular Hemoglobin Concent 31.3 G/DL (32.0-36.0) L Red Cell Distribution Width 13.2 % (11.6-14.8) Platelet Count 188 K/UL (150-450) Mean Platelet Volume 9.6 FL (6.5-10.1) Neutrophils (%) (Auto) 76.5 % (45.0-75.0) H Lymphocytes (%) (Auto) 7.8 % (20.0-45.0) L Monocytes (%) (Auto) 14.1 % (1.0-10.0) H Eosinophils (%) (Auto) 1.1 % (0.0-3.0) Basophils (%) (Auto) 0.6 % (0.0-2.0) Sodium Level 141 mEQ/L (135-145) Potassium Level 4.0 mEQ/L (3.4-4.9) Chloride Level 104 mEQ/L (98-107) Carbon Dioxide Level 21 mEQ/L (20-30) Anion Gap 16 (5-15) H Blood Urea Nitrogen 16 mg/dL (7-23) Creatinine 0.7 mg/dL (0.7-1.2) Estimat Glomerular Filtration Rate > 60 mL/min (>60) Glucose Level 135 mg/dL (74-106) H Calcium Level 8.4 mg/dL (8.6-10.2) L Total Bilirubin 0.5 mg/dL (0.0-1.2) Aspartate Amino Transf (AST/SGOT) 11 U/L (5-40) Alanine Aminotransferase (ALT/SGPT) 14 U/L (3-41) Alkaline Phosphatase 81 U/L (40-129) Troponin I < 0.30 ng/mL (<=0.30) Pro-B-Type Natriuretic Peptide 187 pg/mL (0-125) H Total Protein 6.5 g/dL (6.6-8.7) L Albumin 3.2 g/dL (3.5-5.2) L Globulin 3.3 g/dL Albumin/Globulin Ratio 0.9 (1.0-2.7) L Microbiology Date/Time Source Procedure Growth Status 07/27/16 01:10 Blood Blood Culture - Preliminary NO GROWTH AFTER 24 HOURS Resulted 07/27/16 00:50 Blood Blood Culture - Preliminary NO GROWTH AFTER 24 HOURS Resulted Objective HEAD AND NECK: Shows no JVD. LUNGS: Coarse rhonchi. CARDIOVASCULAR: Irregularly irrregular S1 and S2 with no gallop or murmur. Tachycardic. ABDOMEN: Status post G-tube was clamped. EXTREMITIES: No pitting edema. HUMPHREY FRANCO Jul 28, 2016 15:21
[2016-07-28] MEDS ORDERED: Tubing IV Secondary IV ONE (17:23)
[2016-07-28] MEDS ORDERED: 1/2 NS 1000ml IV ONE (17:23)
[2016-07-29] VITALS: BP 98/60
--- NOTE | 2016-07-29 00:48 | Consultation ---
DATE OF CONSULTATION: 07/28/2016 GASTROLOGY CONSULTATION CHIEF COMPLAINT: I was asked to see this patient by Dr. Lucie Gracia for evaluation of gastrostomy tube leakage. HISTORY OF PRESENT ILLNESS: The patient is a debilitated 60-year-old white male with a significant medical problems including gastrostomy, tracheostomy and catheter removal, who was brought into the hospital. The patient was noted to have leaking around the gastrostomy tube. Therefore, this consultation was requested. The patient himself is unable to provide any history and most of the information was obtained from the chart. PAST MEDICAL HISTORY: History of hypertension, history of cerebral palsy, history dysphagia status gastrostomy placement, history of schizophrenia and seizure disorder. MEDICATIONS: See chart for details. FAMILY HISTORY: Noncontributory and not available. SOCIAL HISTORY: The patient resides in a detention and requires round the clock care. REVIEW OF SYSTEMS: Otherwise negative. PHYSICAL EXAMINATION: GENERAL: The patient is a debilitated white man, seen in his room. HEENT: Normocephalic and atraumatic. NECK: Supple. CHEST: Coarse breath sounds. CARDIOVASCULAR: Regular rate. ABDOMEN: Soft. Gastrostomy tube appear to be in good position, does not appear to have significant leakage. It was flushed easily. EXTREMITIES: Contractures. NEUROLOGIC: Notable for cerebral palsy. LABORATORY AND DIAGNOSTIC DATA: Laboratory data was noted. ASSESSMENT: Gastrostomy tube appears to be in good position, it was flushed usually, but it does have leakage around it. I will try the patient on some gastrostomy tube feeding the G-tube was mild and compression tension. Should this not follow a problem in further evaluation including possible gastrostomy, jejunostomy conversion may be necessary. In the meantime, the patient's head should be elevated and I will follow him closely with you. RECOMMENDATIONS: Per above discussion and per orders written in the chart. Thank you for asking me to participate in the care of this patient. Jenny Krueger M.D. DR: DANYA JOB#: [id number] CC:
[2016-07-29 04:00] VITALS: BP 95/54
[2016-07-29 07:52] LABS: BASOPHILS % (AUTO) 1.4 % (0.0-2.0); EOSINOPHILS % (AUTO) 4.7 % (0.0-3.0); LYMPHOCYTES % (AUTO) 15.5 % (20.0-45.0); MEAN CORPUSCULAR HEMOGLOBIN 21.8 PG (27.0-31.0); MEAN CORPUSCULAR HGB CONC 30.7 G/DL (32.0-36.0); MEAN CORPUSCULAR VOLUME 71 FL (80-99); MONOCYTES % (AUTO) 13.2 % (1.0-10.0); NEUTROPHILS % (AUTO) 65.2 % (45.0-75.0); PLATELET COUNT 224 K/UL (150-450); RED BLOOD COUNT 5.57 M/UL (4.70-6.10); RED CELL DISTRIBUTION WIDTH 13.4 % (11.6-14.8); WHITE BLOOD COUNT 9.1 K/UL (4.8-10.8)
[2016-07-29 08:00] VITALS: BP 102/72
[2016-07-29 08:20] LABS: ALANINE AMINOTRANSFERASE 13 U/L (3-41); ALBUMIN/GLOBULIN RATIO 0.8 (1.0-2.7); ANION GAP 16 (5-15); ASPARTATE AMINO TRANSFERASE 10 U/L (5-40); CALCIUM 8.8 mg/dL (8.6-10.2); CARBON DIOXIDE 24 mEQ/L (20-30); CHLORIDE 104 mEQ/L (98-107); CREATININE 0.7 mg/dL (0.7-1.2); GLOMERULAR FILTRATION RATE > 60 mL/min (>60); HEMOLYSIS 0; MAGNESIUM 1.9 mg/dL (1.7-2.5); PHOSPHORUS 2.7 mg/dL (2.5-4.8); POTASSIUM 3.9 mEQ/L (3.4-4.9); SODIUM 144 mEQ/L (135-145); TOTAL PROTEIN 7.1 g/dL (6.6-8.7)
--- NOTE | 2016-07-29 08:38 | Consultation ---
DATE OF CONSULTATION: 07/27/2016 HISTORY OF PRESENT ILLNESS: This is a 60-year-old male patient with sepsis and pneumonia. He has confusion and disorganized thought process. This patient is confused and disorganized. The patient came into the hospital on 07/27/2016. He came in because of sepsis and pneumonia, but he has confusion and disorganized thought process, history of paranoid schizophrenia, as well as psychiatric consultation requested. He came in because he had cerebral palsy and G-tube. He had tachycardia. I believe his G-tube sent to [facility] from his facility, which is [facility]. I saw and assessed him at the bedside. He is still confused, disorganized, and altered in mental status, but denies suicidal or homicidal thoughts. PAST MEDICAL HISTORY: The patient has a history of urinary tract infection, hypoglycemia, pancytopenia, hyperlipidemia, seizure disorder, urinary tract infection, hypertension, cerebral palsy. MEDICATIONS ON ADMISSION: This patient is on a psychotropic med regimen consisting of Depakene syrup 500 mg per G-tube twice a day, Risperdal 1 mg twice a day, and of as far as his of care of far as his. ALLERGIES: He has no known drug allergies. SUBSTANCE ABUSE HISTORY: No history of any drug or alcohol use. SOCIAL HISTORY: Financially supported by [employer] and Medicare. He lives in a group home at [facility]. MENTAL STATUS EXAMINATION: This is a 60-year-old male with slight psychomotor retardation. Mood is depressed. Affect guarded and restricted. Thought process is disorganized and illogical. Denies any current suicidal or homicidal thoughts. His insight and judgment is poor. DIAGNOSIS: Paranoid schizophrenia with acute exacerbation. PLAN: Plan for this patient is to treat him with Depakote 500 mg per G-tube q.12 hours and Risperdal 1 mg twice a day to reduce agitation. Continue treatment with psychotropic medications to stabilize his mood. I would like to thank, Dr. Johnson, for this interesting consultation. Chart reviewed and discussed with staff. Seen and assessed at bedside. Enrrique Escudero M.D. DR: MUKUND JOB#: [id number] CC:
--- NOTE | 2016-07-29 08:38 | Progress Note ---
DATE: 07/28/2016 FOLLOWUP NOTE: The patient is a 60-year-old male. On this patient, I am going to add a dose of Ativan as needed, the patient is on psychiatric medication because just in case he continues to get intermittent bouts of agitation, so this patient Ativan 1 mg as p.r.n. to help reduce anxiety and agitation and he will continue to be followed by psychiatry throughout hospital course. Chart is reviewed and discussed with the staff. Seen and assessed at the bedside. Enrrique Escudero M.D. DR: Esa JOB#: [id number] CC:
[2016-07-29 09:00] LABS: ERYTHROCYTE SEDIMENTATION RATE 55 MM/HR (0-20)
[2016-07-29 12:00] VITALS: BP 102/64
[2016-07-29] MEDS: Valproic Acid 250mg/5ml Liquid GT SCH ×2 (12:41→21:27)
[2016-07-29] MEDS: levETIRAcetam 500mg/5ml Liquid GT SCH ×2 (12:43→21:27)
[2016-07-29] MEDS: Heparin 5000 units/ml inj SUBQ SCH ×2 (13:10→21:29)
--- NOTE | 2016-07-29 13:34 | General Progress Note ---
Assessment/Plan Assessment/Plan Assessment (1) Seizure (2) Schizophrenia (3) Diabetes (4) Hypertension (5) cerebral pulsy with advanced mental retardation (6) Malfunction of gastrostomy tube - leakage (7) Anemia Recommendations - Trial of TF - GT replaced - check Iron panel and Stool OB - Check C Diff - May need G to J conversion Subjective Allergies: Coded Allergies: NO KNOWN DRUG ALLERGIES (Unverified Allergy, Unknown, 08/22/15) Subjective awake minimally interactive GT fell out --> replaced with 22 Fr GT catheter by d/w RN re leak Objective Last 24 Hour Vital Signs Date Time Temp Pulse Resp B/P Pulse Ox O2 Delivery O2 Flow Rate FiO2 07/29/16 08:00 97.0 94 18 102/72 100 Room Air 07/29/16 04:00 96.8 81 18 95/54 98 Room Air 07/29/16 00:00 97.3 85 18 98/60 96 Room Air 07/28/16 22:00 99/65 07/28/16 20:30 94/54 07/28/16 20:00 97.7 90 18 84/57 98 07/28/16 16:00 97.7 18 109/64 98 Room Air Intake and Output 07/28/16 07/29/16 19:00 07:00 Intake Total 750 ml 1550 ml Output Total 950 ml 1450 ml Balance -200 ml 100 ml Free Water 100 ml 50 ml IV Total 650 ml 1500 ml Output Urine Total 950 ml 1450 ml Laboratory Tests 07/29/16 02:00: Vancomycin Level Trough 14.7H 07/29/16 04:45: White Blood Count 9.1, Red Blood Count 5.57, Hemoglobin 12.2L, Hematocrit 39.6L , Mean Corpuscular Volume 71L, Mean Corpuscular Hemoglobin 21.8L, Mean Corpuscular Hemoglobin Concent 30.7L, Red Cell Distribution Width 13.4, Platelet Count 224, Mean Platelet Volume 10.0, Neutrophils (%) (Auto) 65.2, Lymphocytes (%) (Auto) 15.5L, Monocytes (%) (Auto) 13.2H, Eosinophils (%) (Auto ) 4.7H, Basophils (%) (Auto) 1.4, Erythrocyte Sedimentation Rate 55H, Sodium Level 144, Potassium Level 3.9, Chloride Level 104, Carbon Dioxide Level 24, Anion Gap 16H, Blood Urea Nitrogen 6L, Creatinine 0.7, Estimat Glomerular Filtration Rate > 60, Glucose Level 93, Calcium Level 8.8, Phosphorus Level 2.7 , Magnesium Level 1.9, Total Bilirubin 0.6, Aspartate Amino Transf (AST/SGOT) 10 , Alanine Aminotransferase (ALT/SGPT) 13, Alkaline Phosphatase 85, Total Protein 7.1, Albumin 3.2L, Globulin 3.9, Albumin/Globulin Ratio 0.8L Height (Feet): 6 Height (Inches): 1.00 Weight (Pounds): 159 Objective Debilitated WM NCAT supple CTA RRR Soft ND NT, (++) GT site erythema with sattelite redness no edema (+) OBS GLORIA CRUZ Jul 29, 2016 13:34
[2016-07-29 14:03] LABS: HEMOLYSIS 11; IRON 50 ug/dL (59-158); TOTAL IRON BINDING CAPACITY 183 ug/dL (250-400)
[2016-07-29] MEDS ORDERED: 1/2 NS 1000ml IV ONE (14:44)
[2016-07-29 16:00] VITALS: BP 102/59
[2016-07-29 20:00] VITALS: BP 96/60
[2016-07-29] MEDS: Vancomycin oral 125mg/2.5ml GT SCH (20:50)
--- NOTE | 2016-07-29 21:29 | Infectious Diseases Prog Note ---
Assessment/Plan Problems: (1) Sepsis Assessment & Plan: Due to UTI and C. diff colitis. Less likely cellulitis. Improved. (2) C. difficile colitis Assessment & Plan: Agree with vancomycin PO. Plan a 10-day course probably. (3) Pyuria Assessment & Plan: Rule-out UTI. Urine culture noted - probably post-antibiotics? Plan an empiric course of cefepime. (4) Dermatitis Assessment & Plan: Mostly chemical around the PEG site. Less likely cellulitis. Continue with vancomycin IV for now. Continue with topica care. (5) Pressure ulcer Assessment & Plan: Multiple DTI. On empiric vancomycin. Topical care. Wound care follow-up. Assessment/Plan Infectious Diseases Consultation Note Fela Leal M.D., Ph.D. (Office: [phone], Pager: [phone]) Thank you for the consultation! Please do not hesitate to call with questions. Cell/Txt msg is [phone]. Referring Physician: Dr. Amy Martínez Reason for consultation: C. diff colitis. Chief Complaint: PEG malfunction. ID: Gee Leach is a 60 year-old male. HPI: (History obtained from: Chart given patient's mental status.) Patient was sent urgently to the ED for evaluation of abdominal distention. Complaint onset was acute and started several days prior to admission. Location of the complaint is the gastrointestinal system. Timing of the complaint is constant. The context for the complaint is patient has history of prior episode but no history of liver disease or cirrhosis. Complaint quality is stable and unchanged. The complaint severity is moderate. No associated symptom. Modifying factors are none. In the ED, patient had leukocytosis and pyuria. Her CXR was read as clear. Today patient's C. diff came back positive. ID consulted for sepsis and C. diff colitis. This appears to be his baseline. On visit, patient is calm but unable to provide much further history. Past Medical History: Cerebral palsy, HTN, Dysphagia s/p PEG, Seizure disorder, Psychiatric disorder. Family History: Not available secondary to patient's mental status. Social History: Tobacco: None currently. EtOH: None currently. Illicit drugs: None currently. Residence: [facility]. Medications: Reviewed. Antibiotics: Vancomycin IV. Vancomycin pGT. Cefepime. Review of systems: Limited secondary to patient's mental status. Constitutional: Not available. Eye: Not available. ENT: Not available. Cardiovascular: Not available. Respiratory: Not available. Gastrointestinal: Not available. Genitourinary: Not available. Musculoskeletal: Not available. Integumentary: Not available. Neurological: Not available. Psychiatric: Not available. Endocrine: Not available. Hematological: Not available. Allergy & Immunology: NKDA. Physical Exam - Vitals: Reveiwed and as noted below. General: Alert. Frail. Eyes: [place] conjunctivae. PERRL. ENMT: Oropharynx clear. Nose/ears are atraumatic. Neck: Neck is symmetrical. No thyroid tenderness. Respiratory: Decreased breath sounds throughout. Normal effort. Cardiovascular: Regular rate and rhythm. No peripheral edema. Gastrointestinal: Soft, non-tender with normoactive bowel sounds. No umbilical hernia. Lymphatic: No cervical or supraclavicular lymphadenopathy. Musculoskeletal: Decreased muscle bulk. Contractures. Skin: Normal palpation. Neurologic: Unable to assess cranial nerves or sensory due to patient condition. Psychiatric: Alert but oriented only to self. Chest: Symmetric. Genitourinary: Deferred. Laboratory: Reviewed and noted. Micro: Extended review of culture results shows: MRSA. UCx - NGTD. Imaging: Images were reviewed personally. CXR - No acute change. Subjective Allergies: Coded Allergies: NO KNOWN DRUG ALLERGIES (Unverified Allergy, Unknown, 08/22/15) Objective Vital Signs Last 24 Hour Vital Signs Date Time Temp Pulse Resp B/P Pulse Ox O2 Delivery O2 Flow Rate FiO2 07/29/16 20:00 97.3 99 22 96/60 94 Room Air 07/29/16 16:00 95.5 95 22 102/59 97 Room Air 07/29/16 12:00 97.6 87 18 102/64 98 Room Air 07/29/16 08:00 97.0 94 18 102/72 100 Room Air 07/29/16 04:00 96.8 81 18 95/54 98 Room Air 07/29/16 00:00 97.3 85 18 98/60 96 Room Air 07/28/16 22:00 99/65 Height (Feet): 6 Height (Inches): 1.00 Weight (Pounds): 159 Microbiology Date/Time Source Procedure Growth Status 07/27/16 15:00 Blood Blood Culture - Preliminary NO GROWTH AFTER 24 HOURS Resulted 07/27/16 14:45 Blood Blood Culture - Preliminary NO GROWTH AFTER 24 HOURS Resulted 07/27/16 01:10 Blood Blood Culture - Preliminary NO GROWTH AFTER 48 HOURS Resulted 07/27/16 00:50 Blood Blood Culture - Preliminary NO GROWTH AFTER 48 HOURS Resulted 07/28/16 02:00 Sputum Gram Stain - Final Resulted 07/28/16 02:00 Sputum Sputum Culture - Preliminary Resulted 07/28/16 19:50 Stool Clostridium difficile Toxin Assay - Final Complete 07/28/16 04:30 Indwelling Cath Urine Culture - Preliminary NO GROWTH Resulted Laboratory Tests Test 07/29/16 02:00 07/29/16 04:45 Vancomycin Level Trough 14.7 ug/mL (5.0-12.0) H White Blood Count 9.1 K/UL (4.8-10.8) Red Blood Count 5.57 M/UL (4.70-6.10) Hemoglobin 12.2 G/DL (14.2-18.0) L Hematocrit 39.6 % (42.0-52.0) L Mean Corpuscular Volume 71 FL (80-99) L Mean Corpuscular Hemoglobin 21.8 PG (27.0-31.0) L Mean Corpuscular Hemoglobin Concent 30.7 G/DL (32.0-36.0) L Red Cell Distribution Width 13.4 % (11.6-14.8) Platelet Count 224 K/UL (150-450) Mean Platelet Volume 10.0 FL (6.5-10.1) Neutrophils (%) (Auto) 65.2 % (45.0-75.0) Lymphocytes (%) (Auto) 15.5 % (20.0-45.0) L Monocytes (%) (Auto) 13.2 % (1.0-10.0) H Eosinophils (%) (Auto) 4.7 % (0.0-3.0) H Basophils (%) (Auto) 1.4 % (0.0-2.0) Erythrocyte Sedimentation Rate 55 MM/HR (0-20) H Sodium Level 144 mEQ/L (135-145) Potassium Level 3.9 mEQ/L (3.4-4.9) Chloride Level 104 mEQ/L (98-107) Carbon Dioxide Level 24 mEQ/L (20-30) Anion Gap 16 (5-15) H Blood Urea Nitrogen 6 mg/dL (7-23) L Creatinine 0.7 mg/dL (0.7-1.2) Estimat Glomerular Filtration Rate > 60 mL/min (>60) Glucose Level 93 mg/dL (74-106) Calcium Level 8.8 mg/dL (8.6-10.2) Phosphorus Level 2.7 mg/dL (2.5-4.8) Magnesium Level 1.9 mg/dL (1.7-2.5) Iron Level 50 ug/dL (59-158) L Total Iron Binding Capacity 183 ug/dL (250-400) L Percent Iron Saturation 27 % (15-50) Unsaturated Iron Binding 133 ug/dL (112-346) Total Bilirubin 0.6 mg/dL (0.0-1.2) Aspartate Amino Transf (AST/SGOT) 10 U/L (5-40) Alanine Aminotransferase (ALT/SGPT) 13 U/L (3-41) Alkaline Phosphatase 85 U/L (40-129) Total Protein 7.1 g/dL (6.6-8.7) Albumin 3.2 g/dL (3.5-5.2) L Globulin 3.9 g/dL Albumin/Globulin Ratio 0.8 (1.0-2.7) L Current Medications Medications (Trade) Dose Ordered Sig/Monalisa Route PRN Reason Start Time Stop Time Status Last Admin Dose Admin Acetaminophen (Tylenol) 650 mg Q4H PRN ORAL fever 07/28/16 15:00 08/27/16 14:59 Albuterol/ Ipratropium (DuoNeb 0.5-3(2.5)mg/3ml) 3 ml Q4H PRN HHN Shortness of Breath 07/28/16 15:00 08/02/16 14:59 Cefepime HCl/ Dextrose (Maxipime/D5W 100ml) 100 ml @ 100 mls/hr Q12HR@0200,1400 IV 07/29/16 02:00 08/02/16 01:59 07/29/16 14:58 Clotrimazole (Lotrimin) 1 applic THREE TIMES A DAY TOPIC 07/29/16 14:30 08/28/16 14:29 07/29/16 15:12 Finasteride (Proscar) 5 mg DAILY GT 07/29/16 09:00 08/28/16 08:59 07/29/16 12:44 Heparin Sodium (Porcine) (Heparin 5000 units/ml) 5,000 units EVERY 12 HOURS SUBQ 07/28/16 21:00 08/27/16 20:59 07/29/16 13:10 Levetiracetam (Keppra) 1,500 mg Q12HR GT 07/28/16 21:00 08/27/16 20:59 07/29/16 12:43 Lorazepam (Ativan) 1 mg Q6H PRN GT For Anxiety 07/28/16 14:58 08/04/16 14:44 Morphine Sulfate (Morphine Sulfate) 2 mg Q4H PRN IVP Moderate Pain (Pain Scale 4-6) 07/28/16 13:00 08/04/16 12:59 Nitroglycerin (Ntg) 0.4 mg Q5M X 3 DOSES PRN SL Prn Chest Pain 07/28/16 14:15 08/27/16 14:14 Ondansetron HCl (Zofran) 4 mg Q6H PRN IVP Nausea & Vomiting 07/28/16 15:00 08/27/16 14:59 Polyethylene Glycol (Miralax) 17 gm DAILYPRN PRN GT Constipation 07/28/16 15:00 08/27/16 14:59 Risperidone (RisperDAL) 1 mg BID ORAL 07/28/16 18:00 08/27/16 17:59 07/29/16 19:02 Sodium Chloride 1,000 ml @ 150 mls/hr Q6H40M IV 07/28/16 15:00 08/27/16 14:59 07/29/16 19:04 Temazepam (Restoril) 15 mg HSPRN PRN GT Insomnia 07/28/16 15:00 08/04/16 14:59 Valproic Acid (Depakene) 500 mg EVERY 12 HOURS GT 07/28/16 21:00 08/27/16 20:59 07/29/16 12:41 Vancomycin HCl (Vanco rx to dose) 1 ea DAILY PRN MISC PRN RX PROTOCOL 07/28/16 15:00 08/27/16 14:59 Vancomycin HCl 125 mg 125 mg Q6H GT 07/29/16 20:00 08/05/16 19:59 07/29/16 20:50 Vancomycin HCl/ Dextrose (Vancomycin/D5W 250ml) 250 ml @ 167 mls/hr Q12H IVPB 07/29/16 19:00 08/03/16 18:59 07/29/16 19:07 FELA LEAL Jul 29, 2016 21:29
[2016-07-30] VITALS: BP 99/59
--- NOTE | 2016-07-30 00:07 | Progress Note ---
DATE: 07/29/2016 SUBJECTIVE: This is a 60-year-old male patient with sepsis and pneumonia. PLAN: I am going to continue treatment with psychotropic medications to stabilize his mood. Encourage him to interact appropriately with staff. Seen and assessed at bedside. Chart reviewed. Discussed with staff. Enrrique Escudero M.D. DR: DEMETRIUS JOB#: [id number] CC:
--- NOTE | 2016-07-30 03:26 | Consultation ---
DATE OF CONSULTATION: TREATING ATTENDING PHYSICIAN: Donaldo Johnson D.O. SUBJECTIVE: The patient is a 60-year-old male. This patient was admitted to the hospital for sepsis and pneumonia. Psychotherapeutic services due to his level of confusion, disorientation and altered mental status. The patient also has a history of paranoid schizophrenia. This clinician assessed this patient. The patient is awake, confused, disorganized, and altered in his mental status. He has been agitated during the daytime. At this time, there is no indication . There is no indication of suicidal or homicidal thoughts of ideation. The patient is anxious. This clinician assessed this patient. PAST MEDICAL HISTORY: Includes a history of hyperlipidemia, seizure disorder, UTI, hypertension, cerebral palsy, hypoglycemia, and thrombocytopenia. ALLERGIES: The patient has no known drug allergies. SUBSTANCE ABUSE HISTORY: There is no indication of alcohol use, illicit substance use, or smoking cigarettes. 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 The patient has had multiple inpatient psychiatric hospitalizations and has been treated with psychotropic medications. SOCIAL HISTORY: The patient is a 60-year-old male. The patient lives in a long term. He is financially sustained to Medicare and [employer]. MENTAL STATUS EXAMINATION: The patient is alert and oriented x1 to person. Mood is depressed. Affect is congruent. Thought process, disorganized. Thought content is confused. The patient has poor attention and concentration. Poor insight, judgment, and impulse control. DIAGNOSES: AXIS I: Paranoid schizophrenia with acute exacerbation. AXIS II: Deferred. AXIS III: Per History and Physical. PLAN: This clinician assessed the patient. Provided the patient with supportive psychotherapy and reality orientation. Encouraging the patient to participate in his treatment. Continue with medication management and behavioral management. This clinician has reviewed the patient's chart. Discussed the chart with nursing staff. Gordo Adams PsyD. DR: ADINA JOB#: [id number] CC:
[2016-07-30 04:00] VITALS: BP 105/65
[2016-07-30] MEDS: Vancomycin oral 125mg/2.5ml GT SCH ×4 (04:27→20:28)
[2016-07-30 08:15] VITALS: BP_SYST 111; BP_DIAS 63; BP_DIAS 98
[2016-07-30] MEDS: Valproic Acid 250mg/5ml Liquid GT SCH ×2 (08:20→20:28)
[2016-07-30] MEDS: levETIRAcetam 500mg/5ml Liquid GT SCH ×2 (08:21→20:28)
[2016-07-30] MEDS: Heparin 5000 units/ml inj SUBQ SCH ×2 (08:25→20:33)
--- NOTE | 2016-07-30 11:49 | General Progress Note ---
Assessment/Plan Problem List: (1) Acute lower UTI (2) Seizure disorder, complex partial ICD Codes: G40.209 - Localization-related (focal) (partial) symptomatic epilepsy and epileptic syndromes with complex partial seizures, not intractable , without status epilepticus SNOMED: 063153536 (3) Seizure ICD Codes: R56.9 - Seizure SNOMED: 38771488 (4) Hyperlipidemia ICD Codes: E78.5 - Hyperlipidemia SNOMED: 16406498 (5) Schizophrenia ICD Codes: F20.9 - Schizophrenia, unspecified SNOMED: 98509682 (6) Diabetes ICD Codes: E11.9 - Diabetes SNOMED: 53665680 (7) Sepsis ICD Codes: A41.9 - Sepsis SNOMED: 02217562 Status: progressing Assessment/Plan afebrile vitals stable no acute events no wheezing reviewed chart and labs Subjective ROS Limited/Unobtainable: Yes Constitutional: Reports: no symptoms Allergies: Coded Allergies: NO KNOWN DRUG ALLERGIES (Unverified Allergy, Unknown, 08/22/15) Objective Last 24 Hour Vital Signs Date Time Temp Pulse Resp B/P Pulse Ox O2 Delivery O2 Flow Rate FiO2 07/30/16 08:15 96.1 84 18 111/98 98 Room Air 07/30/16 04:00 96.6 55 19 105/65 94 Room Air 07/30/16 00:00 97.5 90 20 99/59 97 Room Air 07/29/16 20:00 97.3 99 22 96/60 94 Room Air 07/29/16 16:00 95.5 95 22 102/59 97 Room Air 07/29/16 12:00 97.6 87 18 102/64 98 Room Air Intake and Output 07/29/16 07/30/16 19:00 07:00 Intake Total 305 ml 670 ml Output Total 500 ml 600 ml Balance -195 ml 70 ml Intake Oral 120 ml Free Water 65 ml 30 ml IV Total 550 ml Tube Feeding 120 ml 90 ml Output Urine Total 500 ml 600 ml # Bowel Movements 2 2 Laboratory Tests 07/30/16 04:00: Stool Occult Blood [Pending] Height (Feet): 6 Height (Inches): 1.00 Weight (Pounds): 159 EENT: PERRL/EOMI Neck: supple Cardiovascular: normal rate Respiratory/Chest: lungs clear Abdomen: soft Amy Martínez MD Jul 30, 2016 11:49
[2016-07-30 11:51] VITALS: BP 102/68
--- NOTE | 2016-07-30 15:38 | Infectious Diseases Prog Note ---
Assessment/Plan Problems: (1) C. difficile colitis Assessment & Plan: will continue vancomycin orally for two weeks , avoid antibiotics, antacids and Imodium (2) Malfunction of percutaneous endoscopic gastrostomy (PEG) tube Assessment & Plan: S/P replacement, GI is following (3) Diabetes Assessment & Plan: recommend tight glycemic control to keep fasting less than 120, and premeal less than 130 (4) Dermatitis Assessment & Plan: due to bile acid irritation from the G tube site leakage, continue local skin care and G tube care Subjective ROS Limited/Unobtainable: Yes Allergies: Coded Allergies: NO KNOWN DRUG ALLERGIES (Unverified Allergy, Unknown, 08/22/15) Subjective he is demented, resting in bed, afebrile, not in distress Objective Vital Signs Last 24 Hour Vital Signs Date Time Temp Pulse Resp B/P Pulse Ox O2 Delivery O2 Flow Rate FiO2 07/30/16 11:51 97.4 81 18 102/68 97 Room Air 07/30/16 08:15 96.1 84 18 111/63 98 Room Air 07/30/16 04:00 96.6 55 19 105/65 94 Room Air 07/30/16 00:00 97.5 90 20 99/59 97 Room Air 07/29/16 20:00 97.3 99 22 96/60 94 Room Air 07/29/16 16:00 95.5 95 22 102/59 97 Room Air Height (Feet): 6 Height (Inches): 1.00 Weight (Pounds): 159 General Appearance: WD/WN, no acute distress HEENT: normocephalic, atraumatic, anicteric Respiratory/Chest: chest wall non-tender, lungs clear, normal breath sounds, no respiratory distress, no accessory muscle use Cardiovascular: normal peripheral pulses, normal rate, regular rhythm, no gallop/murmur Abdomen: normal bowel sounds, soft, non tender, no organomegaly, non distended , no mass, no scars, other - G tube site looks better with mild skin irritation Extremities: no cyanosis, no clubbing Skin: no rash, no lesions Microbiology Date/Time Source Procedure Growth Status 07/28/16 02:00 Sputum Gram Stain - Final Resulted 07/28/16 02:00 Sputum Sputum Culture - Preliminary Resulted 07/28/16 19:50 Stool Clostridium difficile Toxin Assay - Final Complete 07/28/16 04:30 Indwelling Cath Urine Culture - Preliminary NO GROWTH AFTER 24 HOURS Resulted Laboratory Tests Test 07/30/16 04:00 Stool Occult Blood Negative (NEGATIVE) Current Medications Medications (Trade) Dose Ordered Sig/Monalisa Route PRN Reason Start Time Stop Time Status Last Admin Dose Admin Acetaminophen (Tylenol) 650 mg Q4H PRN ORAL fever 07/28/16 15:00 08/27/16 14:59 Albuterol/ Ipratropium (DuoNeb 0.5-3(2.5)mg/3ml) 3 ml Q4H PRN HHN Shortness of Breath 07/28/16 15:00 08/02/16 14:59 Clotrimazole (Lotrimin) 1 applic THREE TIMES A DAY TOPIC 07/29/16 14:30 08/28/16 14:29 07/30/16 13:27 Finasteride (Proscar) 5 mg DAILY GT 07/29/16 09:00 08/28/16 08:59 07/30/16 08:21 Heparin Sodium (Porcine) (Heparin 5000 units/ml) 5,000 units EVERY 12 HOURS SUBQ 07/28/16 21:00 08/27/16 20:59 07/30/16 08:25 Levetiracetam (Keppra) 1,500 mg Q12HR GT 07/28/16 21:00 08/27/16 20:59 07/30/16 08:21 Lorazepam (Ativan) 1 mg Q6H PRN GT For Anxiety 07/28/16 14:58 08/04/16 14:44 Morphine Sulfate (Morphine Sulfate) 2 mg Q4H PRN IVP Moderate Pain (Pain Scale 4-6) 07/28/16 13:00 08/04/16 12:59 Nitroglycerin (Ntg) 0.4 mg Q5M X 3 DOSES PRN SL Prn Chest Pain 07/28/16 14:15 08/27/16 14:14 Ondansetron HCl (Zofran) 4 mg Q6H PRN IVP Nausea & Vomiting 07/28/16 15:00 08/27/16 14:59 Polyethylene Glycol (Miralax) 17 gm DAILYPRN PRN GT Constipation 07/28/16 15:00 08/27/16 14:59 Risperidone (RisperDAL) 1 mg BID ORAL 07/28/16 18:00 08/27/16 17:59 07/30/16 08:21 Temazepam (Restoril) 15 mg HSPRN PRN GT Insomnia 07/28/16 15:00 08/04/16 14:59 Valproic Acid (Depakene) 500 mg EVERY 12 HOURS GT 07/28/16 21:00 08/27/16 20:59 07/30/16 08:20 Vancomycin HCl (Vanco rx to dose) 1 ea DAILY PRN MISC PRN RX PROTOCOL 07/28/16 15:00 08/27/16 14:59 Vancomycin HCl (Vancomycin) 125 mg Q6H GT 07/29/16 20:00 08/05/16 19:59 07/30/16 14:25 Tavo Ramirez M.D. Jul 30, 2016 15:38
[2016-07-30 15:45] VITALS: BP 101/67
--- NOTE | 2016-07-30 17:35 | Cardiac Electrophysiology PN ---
Assessment/Plan Assessment/Plan 1. Sinus Tachycardia. Due to sepsis with no evidence of atrial fibrillation or atrial flutter. Continue intravenous fluids and intravenous antibiotic. The patient is likely also dehydrated in view of patient's azotemia with BUN of 31 and creatinine of 0.8. His troponin is negative. 2. Gastrostomy tube malfunction. The tube is clamped. The patient is on intravenous antibiotics. 3. Cerebral palsy. 4. Seizure disorder. 5. Schizophrenia. 6. C diff on Antibiotics per ID DW RN Subjective Subjective Nonverbal. No events overnight. On Abx for C diff. Objective Last 24 Hour Vital Signs Date Time Temp Pulse Resp B/P Pulse Ox O2 Delivery O2 Flow Rate FiO2 07/30/16 15:45 97.7 80 17 101/67 99 Room Air 07/30/16 11:51 97.4 81 18 102/68 97 Room Air 07/30/16 08:15 96.1 84 18 111/63 98 Room Air 07/30/16 04:00 96.6 55 19 105/65 94 Room Air 07/30/16 00:00 97.5 90 20 99/59 97 Room Air 07/29/16 20:00 97.3 99 22 96/60 94 Room Air Intake and Output 07/29/16 07/30/16 19:00 07:00 Intake Total 305 ml 670 ml Output Total 500 ml 600 ml Balance -195 ml 70 ml Intake Oral 120 ml Free Water 65 ml 30 ml IV Total 550 ml Tube Feeding 120 ml 90 ml Output Urine Total 500 ml 600 ml # Bowel Movements 2 2 Laboratory Tests Test 07/30/16 04:00 Stool Occult Blood Negative (NEGATIVE) Microbiology Date/Time Source Procedure Growth Status 07/28/16 02:00 Sputum Gram Stain - Final Resulted 07/28/16 02:00 Sputum Sputum Culture - Preliminary Resulted 07/28/16 19:50 Stool Clostridium difficile Toxin Assay - Final Complete 07/28/16 04:30 Indwelling Cath Urine Culture - Preliminary NO GROWTH AFTER 24 HOURS Resulted Objective HEAD AND NECK: Shows no JVD. LUNGS: Coarse rhonchi. CARDIOVASCULAR: Irregularly irregular S1 and S2 with no gallop or murmur. Tachycardic. ABDOMEN: Status post G-tube was clamped. EXTREMITIES: No pitting edema. HUMPHREY FRANCO Jul 30, 2016 17:35
--- NOTE | 2016-07-30 17:44 | General Progress Note ---
Assessment/Plan Assessment/Plan Assessment (1) Seizure (2) Schizophrenia (3) Diabetes (4) Hypertension (5) cerebral palsy with advanced mental retardation (6) Malfunction of gastrostomy tube - leakage (7) Anemia (8) C Diff Colitis Recommendations - Continue TF - GT replaced - Iron panel and Stool OB noted - Abx for C Diff Subjective Allergies: Coded Allergies: NO KNOWN DRUG ALLERGIES (Unverified Allergy, Unknown, 08/22/15) Subjective awake minimally interactive tolerating TF being Rx'd for C Diff Objective Last 24 Hour Vital Signs Date Time Temp Pulse Resp B/P Pulse Ox O2 Delivery O2 Flow Rate FiO2 07/30/16 15:45 97.7 80 17 101/67 99 Room Air 07/30/16 11:51 97.4 81 18 102/68 97 Room Air 07/30/16 08:15 96.1 84 18 111/63 98 Room Air 07/30/16 04:00 96.6 55 19 105/65 94 Room Air 07/30/16 00:00 97.5 90 20 99/59 97 Room Air 07/29/16 20:00 97.3 99 22 96/60 94 Room Air Intake and Output 07/29/16 07/30/16 18:59 06:59 Intake Total 425 ml 700 ml Output Total 500 ml 600 ml Balance -75 ml 100 ml Intake Oral 120 ml Free Water 65 ml 30 ml IV Total 150 ml 550 ml Tube Feeding 90 ml 120 ml Output Urine Total 500 ml 600 ml # Bowel Movements 2 2 Laboratory Tests 07/30/16 04:00: Stool Occult Blood Negative Height (Feet): 6 Height (Inches): 1.00 Weight (Pounds): 159 Objective Debilitated WM NCAT supple CTA RRR Soft ND NT, (++) GT site erythema with sattelite redness no edema (+) OBS GLORIA CRUZ Jul 30, 2016 17:44
[2016-07-30] MEDS ORDERED: 1/2 NS 1000ml IV ONE (17:47)
--- NOTE | 2016-07-30 18:20 | Pulmonology Progress Note ---
Assessment/Plan Problems: (1) Hypertension (2) Seizure (3) Sepsis (4) UTI (urinary tract infection) (5) Malfunction of gastrostomy tube (6) halfway resident (7) cerebral pulsy with advanced mental retardation (8) Schizophrenia Assessment/Plan Plan Tight BP and BG control Aspiration precautions Seizure precautions Continue ANTBX Subjective ROS Limited/Unobtainable: No Respiratory: Reports: productive cough, shortness of breath, sputum Allergies: Coded Allergies: NO KNOWN DRUG ALLERGIES (Unverified Allergy, Unknown, 08/22/15) Objective Last 24 Hour Vital Signs Date Time Temp Pulse Resp B/P Pulse Ox O2 Delivery O2 Flow Rate FiO2 07/30/16 15:45 97.7 80 17 101/67 99 Room Air 07/30/16 11:51 97.4 81 18 102/68 97 Room Air 07/30/16 08:15 96.1 84 18 111/63 98 Room Air 07/30/16 04:00 96.6 55 19 105/65 94 Room Air 07/30/16 00:00 97.5 90 20 99/59 97 Room Air 07/29/16 20:00 97.3 99 22 96/60 94 Room Air Intake and Output 07/29/16 07/30/16 19:00 07:00 Intake Total 305 ml 670 ml Output Total 500 ml 600 ml Balance -195 ml 70 ml Intake Oral 120 ml Free Water 65 ml 30 ml IV Total 550 ml Tube Feeding 120 ml 90 ml Output Urine Total 500 ml 600 ml # Bowel Movements 2 2 General Appearance: WD/WN HEENT: normocephalic, atraumatic, anicteric, PERRL Respiratory/Chest: chest wall non-tender, lungs clear, normal breath sounds Cardiovascular: normal peripheral pulses, normal rate, regular rhythm, regularly irregular Abdomen: normal bowel sounds, soft, non tender, no organomegaly Genitourinary: normal external genitalia Extremities: no cyanosis, no clubbing Skin: no rash 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, no motor/sensory deficits Microbiology Date/Time Source Procedure Growth Status 07/28/16 02:00 Sputum Gram Stain - Final Resulted 07/28/16 02:00 Sputum Sputum Culture - Preliminary Resulted 07/28/16 19:50 Stool Clostridium difficile Toxin Assay - Final Complete 07/28/16 04:30 Indwelling Cath Urine Culture - Preliminary NO GROWTH AFTER 24 HOURS Resulted Laboratory Tests 07/30/16 04:00: Stool Occult Blood Negative Current Medications Medications (Trade) Dose Ordered Sig/Monalisa Route PRN Reason Start Time Stop Time Status Last Admin Dose Admin Acetaminophen (Tylenol) 650 mg Q4H PRN ORAL fever 07/28/16 15:00 08/27/16 14:59 Albuterol/ Ipratropium (DuoNeb 0.5-3(2.5)mg/3ml) 3 ml Q4H PRN HHN Shortness of Breath 07/28/16 15:00 08/02/16 14:59 Clotrimazole (Lotrimin) 1 applic THREE TIMES A DAY TOPIC 07/29/16 14:30 08/28/16 14:29 07/30/16 13:27 Finasteride (Proscar) 5 mg DAILY GT 07/29/16 09:00 08/28/16 08:59 07/30/16 08:21 Heparin Sodium (Porcine) (Heparin 5000 units/ml) 5,000 units EVERY 12 HOURS SUBQ 07/28/16 21:00 08/27/16 20:59 07/30/16 08:25 Levetiracetam (Keppra) 1,500 mg Q12HR GT 07/28/16 21:00 08/27/16 20:59 07/30/16 08:21 Lorazepam (Ativan) 1 mg Q6H PRN GT For Anxiety 07/28/16 14:58 08/04/16 14:44 Morphine Sulfate (Morphine Sulfate) 2 mg Q4H PRN IVP Moderate Pain (Pain Scale 4-6) 07/28/16 13:00 08/04/16 12:59 Nitroglycerin (Ntg) 0.4 mg Q5M X 3 DOSES PRN SL Prn Chest Pain 07/28/16 14:15 08/27/16 14:14 Ondansetron HCl (Zofran) 4 mg Q6H PRN IVP Nausea & Vomiting 07/28/16 15:00 08/27/16 14:59 Polyethylene Glycol (Miralax) 17 gm DAILYPRN PRN GT Constipation 07/28/16 15:00 08/27/16 14:59 Risperidone (RisperDAL) 1 mg BID ORAL 07/28/16 18:00 08/27/16 17:59 07/30/16 08:21 Temazepam (Restoril) 15 mg HSPRN PRN GT Insomnia 07/28/16 15:00 08/04/16 14:59 Valproic Acid (Depakene) 500 mg EVERY 12 HOURS GT 07/28/16 21:00 08/27/16 20:59 07/30/16 08:20 Vancomycin HCl (Vancomycin) 125 mg Q6H GT 07/29/16 20:00 08/05/16 19:59 07/30/16 14:25 NEEL LUJAN Jul 30, 2016 18:20
[2016-07-30 20:04] VITALS: BP 91/55
[2016-07-31] VITALS (7 sets, daily range): BP systolic 93–109; BP diastolic 55–70
[2016-07-31] MEDS: Vancomycin oral 125mg/2.5ml GT SCH ×4 (01:05→20:04)
--- NOTE | 2016-07-31 04:58 | Progress Note ---
DATE: 07/30/2016 NOTE: "POOR AUDIO QUALITY" TREATING ATTENDING PHYSICIAN: Donaldo Johnson D.O. SUBJECTIVE: The patient is a 60-year-old male with a diagnosis of paranoid schizophrenia. The patient altered mental status, confused, and disorganized. The patient during the daytime. treatment prior to intoxication . PLAN: This clinician assessed this patient and supportive psychotherapy and reality orientation. Encouraging the patient to participate in treatment milieu. increasing the patient's psychotic medication treatment. Continue with medication management and behavioral management. This clinician has reviewed the patient's chart and discussed the treatment with nursing staff. Gordo Adams PsyD. DR: DEYANIRA JOB#: [id number] CC:
[2016-07-31 06:22] LABS: BASOPHILS % (AUTO) 0.6 % (0.0-2.0); EOSINOPHILS % (AUTO) 4.6 % (0.0-3.0); LYMPHOCYTES % (AUTO) 23.8 % (20.0-45.0); MEAN CORPUSCULAR HEMOGLOBIN 21.9 PG (27.0-31.0); MEAN CORPUSCULAR HGB CONC 30.5 G/DL (32.0-36.0); MEAN CORPUSCULAR VOLUME 72 FL (80-99); MEAN PLATELET VOLUME 8.7 FL (6.5-10.1); NEUTROPHILS % (AUTO) 60.9 % (45.0-75.0); PLATELET COUNT 252 K/UL (150-450); RED BLOOD COUNT 5.26 M/UL (4.70-6.10); WHITE BLOOD COUNT 6.9 K/UL (4.8-10.8)
[2016-07-31 07:01] LABS: ALANINE AMINOTRANSFERASE 9 U/L (3-41); ALBUMIN/GLOBULIN RATIO 0.8 (1.0-2.7); ANION GAP 14 (5-15); ASPARTATE AMINO TRANSFERASE 9 U/L (5-40); CALCIUM 8.9 mg/dL (8.6-10.2); CARBON DIOXIDE 27 mEQ/L (20-30); CHLORIDE 104 mEQ/L (98-107); CREATININE 0.5 mg/dL (0.7-1.2); GLOMERULAR FILTRATION RATE > 60 mL/min (>60); HEMOLYSIS 0; MAGNESIUM 2.2 mg/dL (1.7-2.5); PHOSPHORUS 3.1 mg/dL (2.5-4.8); POTASSIUM 3.5 mEQ/L (3.4-4.9); SODIUM 145 mEQ/L (135-145); TOTAL PROTEIN 6.6 g/dL (6.6-8.7)
[2016-07-31] MEDS: Valproic Acid 250mg/5ml Liquid GT SCH ×2 (09:37→20:58)
[2016-07-31] MEDS: levETIRAcetam 500mg/5ml Liquid GT SCH ×2 (09:38→20:57)
[2016-07-31] MEDS: Heparin 5000 units/ml inj SUBQ SCH ×2 (10:26→21:01)
--- NOTE | 2016-07-31 10:43 | GI Progress Note ---
Assessment/Plan Problems: (1) C. difficile colitis ICD Codes: A04.7 - Enterocolitis due to Clostridium difficile SNOMED: 953957837 (2) Malfunction of percutaneous endoscopic gastrostomy (PEG) tube ICD Codes: K94.23 - Gastrostomy malfunction SNOMED: 372986357 (3) Pancytopenia ICD Codes: D61.818 - Other pancytopenia SNOMED: 421073689 Status: unchanged Status Narrative Discussed with Dr. Light. Assessment/Plan Assessment (1) Seizure (2) Schizophrenia (3) Diabetes (4) Hypertension (5) cerebral palsy with advanced mental retardation (6) Malfunction of gastrostomy tube - leakage (7) Anemia (8) C Diff Colitis Recommendations - Continue TF - GT replaced - Iron panel WNL - stool OB negative - Abx for C Diff Subjective Subjective limited Objective Last 24 Hour Vital Signs Date Time Temp Pulse Resp B/P Pulse Ox O2 Delivery O2 Flow Rate FiO2 07/31/16 10:35 88 109/70 95 Room Air 07/31/16 08:18 86 18 Room Air 21 07/31/16 08:00 98.6 124 20 100/61 93 Room Air 07/31/16 04:00 96.0 96 18 107/62 96 07/31/16 00:00 97.9 90 18 98/62 94 Room Air 07/30/16 20:04 98.1 81 18 91/55 94 Room Air 07/30/16 15:45 97.7 80 17 101/67 99 Room Air 07/30/16 11:51 97.4 81 18 102/68 97 Room Air Intake and Output 07/30/16 07/31/16 18:59 06:59 Intake Total 580 ml 135 ml Output Total 750 ml 400 ml Balance -170 ml -265 ml IV Total 250 ml Tube Feeding 330 ml 135 ml Output Urine Total 750 ml 400 ml # Bowel Movements 1 Laboratory Tests Test 07/31/16 04:50 White Blood Count 6.9 K/UL (4.8-10.8) Red Blood Count 5.26 M/UL (4.70-6.10) Hemoglobin 11.5 G/DL (14.2-18.0) L Hematocrit 37.7 % (42.0-52.0) L Mean Corpuscular Volume 72 FL (80-99) L Mean Corpuscular Hemoglobin 21.9 PG (27.0-31.0) L Mean Corpuscular Hemoglobin Concent 30.5 G/DL (32.0-36.0) L Red Cell Distribution Width 13.0 % (11.6-14.8) Platelet Count 252 K/UL (150-450) Mean Platelet Volume 8.7 FL (6.5-10.1) Neutrophils (%) (Auto) 60.9 % (45.0-75.0) Lymphocytes (%) (Auto) 23.8 % (20.0-45.0) Monocytes (%) (Auto) 10.0 % (1.0-10.0) Eosinophils (%) (Auto) 4.6 % (0.0-3.0) H Basophils (%) (Auto) 0.6 % (0.0-2.0) Sodium Level 145 mEQ/L (135-145) Potassium Level 3.5 mEQ/L (3.4-4.9) Chloride Level 104 mEQ/L (98-107) Carbon Dioxide Level 27 mEQ/L (20-30) Anion Gap 14 (5-15) Blood Urea Nitrogen 12 mg/dL (7-23) Creatinine 0.5 mg/dL (0.7-1.2) L Estimat Glomerular Filtration Rate > 60 mL/min (>60) Glucose Level 114 mg/dL (74-106) H Calcium Level 8.9 mg/dL (8.6-10.2) Phosphorus Level 3.1 mg/dL (2.5-4.8) Magnesium Level 2.2 mg/dL (1.7-2.5) Total Bilirubin < 0.2 mg/dL (0.0-1.2) Aspartate Amino Transf (AST/SGOT) 9 U/L (5-40) Alanine Aminotransferase (ALT/SGPT) 9 U/L (3-41) Alkaline Phosphatase 79 U/L (40-129) Total Protein 6.6 g/dL (6.6-8.7) Albumin 3.0 g/dL (3.5-5.2) L Globulin 3.6 g/dL Albumin/Globulin Ratio 0.8 (1.0-2.7) L Height (Feet): 6 Height (Inches): 1.00 Weight (Pounds): 159 General Appearance: no apparent distress, alert Cardiovascular: normal rate Respiratory/Chest: normal breath sounds, no respiratory distress Abdominal Exam: normal bowel sounds, non tender, soft, GT site - c/d/i Chery Mcfarland N.P. Jul 31, 2016 10:43
--- NOTE | 2016-07-31 15:09 | General Progress Note ---
Assessment/Plan Problem List: (1) Acute lower UTI (2) Seizure disorder, complex partial ICD Codes: G40.209 - Localization-related (focal) (partial) symptomatic epilepsy and epileptic syndromes with complex partial seizures, not intractable , without status epilepticus SNOMED: 168485759 (3) Seizure ICD Codes: R56.9 - Seizure SNOMED: 25587114 (4) Hyperlipidemia ICD Codes: E78.5 - Hyperlipidemia SNOMED: 23444095 (5) Schizophrenia ICD Codes: F20.9 - Schizophrenia, unspecified SNOMED: 65766632 (6) Diabetes ICD Codes: E11.9 - Diabetes SNOMED: 20387445 (7) Sepsis ICD Codes: A41.9 - Sepsis SNOMED: 61884490 Status: progressing Assessment/Plan vitals stable no acute event sepsis and pna are improving vitals stable reviewed chart and labs Subjective ROS Limited/Unobtainable: Yes Constitutional: Reports: no symptoms Allergies: Coded Allergies: NO KNOWN DRUG ALLERGIES (Unverified Allergy, Unknown, 08/22/15) Objective Last 24 Hour Vital Signs Date Time Temp Pulse Resp B/P Pulse Ox O2 Delivery O2 Flow Rate FiO2 07/31/16 13:13 96.6 88 18 108/67 97 Room Air 07/31/16 10:35 88 109/70 95 Room Air 07/31/16 08:18 86 18 Room Air 21 07/31/16 08:00 98.6 124 20 100/61 93 Room Air 07/31/16 04:00 96.0 96 18 107/62 96 07/31/16 00:00 97.9 90 18 98/62 94 Room Air 07/30/16 20:04 98.1 81 18 91/55 94 Room Air 07/30/16 15:45 97.7 80 17 101/67 99 Room Air Intake and Output 07/30/16 07/31/16 18:59 06:59 Intake Total 580 ml 135 ml Output Total 750 ml 400 ml Balance -170 ml -265 ml IV Total 250 ml Tube Feeding 330 ml 135 ml Output Urine Total 750 ml 400 ml # Bowel Movements 1 Laboratory Tests 07/31/16 04:50: White Blood Count 6.9, Red Blood Count 5.26, Hemoglobin 11.5L, Hematocrit 37.7L , Mean Corpuscular Volume 72L, Mean Corpuscular Hemoglobin 21.9L, Mean Corpuscular Hemoglobin Concent 30.5L, Red Cell Distribution Width 13.0, Platelet Count 252, Mean Platelet Volume 8.7, Neutrophils (%) (Auto) 60.9, Lymphocytes (%) (Auto) 23.8, Monocytes (%) (Auto) 10.0, Eosinophils (%) (Auto) 4.6H, Basophils (%) (Auto) 0.6, Sodium Level 145, Potassium Level 3.5, Chloride Level 104, Carbon Dioxide Level 27, Anion Gap 14, Blood Urea Nitrogen 12, Creatinine 0.5L, Estimat Glomerular Filtration Rate > 60, Glucose Level 114H, Calcium Level 8.9, Phosphorus Level 3.1, Magnesium Level 2.2, Total Bilirubin < 0.2, Aspartate Amino Transf (AST/SGOT) 9, Alanine Aminotransferase (ALT/SGPT) 9 , Alkaline Phosphatase 79, Total Protein 6.6, Albumin 3.0L, Globulin 3.6, Albumin/Globulin Ratio 0.8L Height (Feet): 6 Height (Inches): 1.00 Weight (Pounds): 159 EENT: PERRL/EOMI Cardiovascular: normal rate Amy Martínez MD Jul 31, 2016 15:09
--- NOTE | 2016-07-31 17:46 | Cardiac Electrophysiology PN ---
Assessment/Plan Assessment/Plan 1. Sinus Tachycardia due to sepsis and dehydration . No atrial fibrillation. Continue intravenous antibiotic and fluids. His troponin is negative. 2. Gastrostomy tube malfunction. GT replaced 3. Cerebral palsy. 4. Seizure disorder. 5. Schizophrenia. 6. C diff on Antibiotics per ID DW RN Subjective Subjective Nonverbal. On Abx for C diff.No cardiac events overnight. Objective Last 24 Hour Vital Signs Date Time Temp Pulse Resp B/P Pulse Ox O2 Delivery O2 Flow Rate FiO2 07/31/16 16:00 97.0 85 18 93/63 97 Room Air 07/31/16 13:13 96.6 88 18 108/67 97 Room Air 07/31/16 10:35 88 109/70 95 Room Air 07/31/16 08:18 86 18 Room Air 21 07/31/16 08:00 98.6 124 20 100/61 93 Room Air 07/31/16 04:00 96.0 96 18 107/62 96 07/31/16 00:00 97.9 90 18 98/62 94 Room Air 07/30/16 20:04 98.1 81 18 91/55 94 Room Air Intake and Output 07/30/16 07/31/16 18:59 06:59 Intake Total 580 ml 135 ml Output Total 750 ml 400 ml Balance -170 ml -265 ml IV Total 250 ml Tube Feeding 330 ml 135 ml Output Urine Total 750 ml 400 ml # Bowel Movements 1 Laboratory Tests Test 07/31/16 04:50 White Blood Count 6.9 K/UL (4.8-10.8) Red Blood Count 5.26 M/UL (4.70-6.10) Hemoglobin 11.5 G/DL (14.2-18.0) L Hematocrit 37.7 % (42.0-52.0) L Mean Corpuscular Volume 72 FL (80-99) L Mean Corpuscular Hemoglobin 21.9 PG (27.0-31.0) L Mean Corpuscular Hemoglobin Concent 30.5 G/DL (32.0-36.0) L Red Cell Distribution Width 13.0 % (11.6-14.8) Platelet Count 252 K/UL (150-450) Mean Platelet Volume 8.7 FL (6.5-10.1) Neutrophils (%) (Auto) 60.9 % (45.0-75.0) Lymphocytes (%) (Auto) 23.8 % (20.0-45.0) Monocytes (%) (Auto) 10.0 % (1.0-10.0) Eosinophils (%) (Auto) 4.6 % (0.0-3.0) H Basophils (%) (Auto) 0.6 % (0.0-2.0) Sodium Level 145 mEQ/L (135-145) Potassium Level 3.5 mEQ/L (3.4-4.9) Chloride Level 104 mEQ/L (98-107) Carbon Dioxide Level 27 mEQ/L (20-30) Anion Gap 14 (5-15) Blood Urea Nitrogen 12 mg/dL (7-23) Creatinine 0.5 mg/dL (0.7-1.2) L Estimat Glomerular Filtration Rate > 60 mL/min (>60) Glucose Level 114 mg/dL (74-106) H Calcium Level 8.9 mg/dL (8.6-10.2) Phosphorus Level 3.1 mg/dL (2.5-4.8) Magnesium Level 2.2 mg/dL (1.7-2.5) Total Bilirubin < 0.2 mg/dL (0.0-1.2) Aspartate Amino Transf (AST/SGOT) 9 U/L (5-40) Alanine Aminotransferase (ALT/SGPT) 9 U/L (3-41) Alkaline Phosphatase 79 U/L (40-129) Total Protein 6.6 g/dL (6.6-8.7) Albumin 3.0 g/dL (3.5-5.2) L Globulin 3.6 g/dL Albumin/Globulin Ratio 0.8 (1.0-2.7) L Microbiology Date/Time Source Procedure Growth Status 07/28/16 19:50 Stool Clostridium difficile Toxin Assay - Final Complete Objective HEAD AND NECK: Shows no JVD. LUNGS: Coarse rhonchi. CARDIOVASCULAR: Irregularly irregular S1 and S2 with no gallop or murmur. Tachycardic. ABDOMEN: Status post G-tube was clamped. EXTREMITIES: No pitting edema. HUMPHREY FRANCO Jul 31, 2016 17:46
--- NOTE | 2016-07-31 17:51 | Infectious Diseases Prog Note ---
Assessment/Plan Problems: (1) C. difficile colitis Assessment & Plan: will continue vancomycin orally for two weeks , avoid antibiotics, antacids and Imodium (2) Malfunction of percutaneous endoscopic gastrostomy (PEG) tube Assessment & Plan: S/P replacement, GI is following (3) Diabetes Assessment & Plan: recommend tight glycemic control to keep fasting less than 120, and premeal less than 130 (4) Dermatitis Assessment & Plan: due to bile acid irritation from the G tube site leakage, continue local skin care and G tube care (5) Pseudomonas aeruginosa colonization Assessment & Plan: in the sputum, no evidence of pneumonia, no need for antibiotics therapy Subjective ROS Limited/Unobtainable: Yes Allergies: Coded Allergies: NO KNOWN DRUG ALLERGIES (Unverified Allergy, Unknown, 08/22/15) Subjective he is demented, resting in bed, afebrile, not in distress Objective Vital Signs Last 24 Hour Vital Signs Date Time Temp Pulse Resp B/P Pulse Ox O2 Delivery O2 Flow Rate FiO2 07/31/16 16:00 97.0 85 18 93/63 97 Room Air 07/31/16 13:13 96.6 88 18 108/67 97 Room Air 07/31/16 10:35 88 109/70 95 Room Air 07/31/16 08:18 86 18 Room Air 21 07/31/16 08:00 98.6 124 20 100/61 93 Room Air 07/31/16 04:00 96.0 96 18 107/62 96 07/31/16 00:00 97.9 90 18 98/62 94 Room Air 07/30/16 20:04 98.1 81 18 91/55 94 Room Air Height (Feet): 6 Height (Inches): 1.00 Weight (Pounds): 159 General Appearance: WD/WN, no acute distress HEENT: normocephalic, atraumatic, anicteric, mucous membranes moist Respiratory/Chest: chest wall non-tender, lungs clear, normal breath sounds, no respiratory distress, no accessory muscle use Cardiovascular: normal peripheral pulses, normal rate, regular rhythm, no gallop/murmur Abdomen: normal bowel sounds, soft, non tender, no organomegaly, non distended , no mass, no scars Extremities: no cyanosis, no clubbing Skin: no rash, no lesions Microbiology Date/Time Source Procedure Growth Status 07/28/16 19:50 Stool Clostridium difficile Toxin Assay - Final Complete Laboratory Tests Test 07/31/16 04:50 White Blood Count 6.9 K/UL (4.8-10.8) Red Blood Count 5.26 M/UL (4.70-6.10) Hemoglobin 11.5 G/DL (14.2-18.0) L Hematocrit 37.7 % (42.0-52.0) L Mean Corpuscular Volume 72 FL (80-99) L Mean Corpuscular Hemoglobin 21.9 PG (27.0-31.0) L Mean Corpuscular Hemoglobin Concent 30.5 G/DL (32.0-36.0) L Red Cell Distribution Width 13.0 % (11.6-14.8) Platelet Count 252 K/UL (150-450) Mean Platelet Volume 8.7 FL (6.5-10.1) Neutrophils (%) (Auto) 60.9 % (45.0-75.0) Lymphocytes (%) (Auto) 23.8 % (20.0-45.0) Monocytes (%) (Auto) 10.0 % (1.0-10.0) Eosinophils (%) (Auto) 4.6 % (0.0-3.0) H Basophils (%) (Auto) 0.6 % (0.0-2.0) Sodium Level 145 mEQ/L (135-145) Potassium Level 3.5 mEQ/L (3.4-4.9) Chloride Level 104 mEQ/L (98-107) Carbon Dioxide Level 27 mEQ/L (20-30) Anion Gap 14 (5-15) Blood Urea Nitrogen 12 mg/dL (7-23) Creatinine 0.5 mg/dL (0.7-1.2) L Estimat Glomerular Filtration Rate > 60 mL/min (>60) Glucose Level 114 mg/dL (74-106) H Calcium Level 8.9 mg/dL (8.6-10.2) Phosphorus Level 3.1 mg/dL (2.5-4.8) Magnesium Level 2.2 mg/dL (1.7-2.5) Total Bilirubin < 0.2 mg/dL (0.0-1.2) Aspartate Amino Transf (AST/SGOT) 9 U/L (5-40) Alanine Aminotransferase (ALT/SGPT) 9 U/L (3-41) Alkaline Phosphatase 79 U/L (40-129) Total Protein 6.6 g/dL (6.6-8.7) Albumin 3.0 g/dL (3.5-5.2) L Globulin 3.6 g/dL Albumin/Globulin Ratio 0.8 (1.0-2.7) L Current Medications Medications (Trade) Dose Ordered Sig/Monalisa Route PRN Reason Start Time Stop Time Status Last Admin Dose Admin Acetaminophen (Tylenol) 650 mg Q4H PRN ORAL fever 07/28/16 15:00 08/27/16 14:59 Albuterol/ Ipratropium (DuoNeb 0.5-3(2.5)mg/3ml) 3 ml Q4H PRN HHN Shortness of Breath 07/28/16 15:00 08/02/16 14:59 Clotrimazole (Lotrimin) 1 applic THREE TIMES A DAY TOPIC 07/29/16 14:30 08/28/16 14:29 07/31/16 13:48 Finasteride (Proscar) 5 mg DAILY GT 07/29/16 09:00 08/28/16 08:59 07/31/16 09:38 Heparin Sodium (Porcine) (Heparin 5000 units/ml) 5,000 units EVERY 12 HOURS SUBQ 07/28/16 21:00 08/27/16 20:59 07/31/16 10:26 Levetiracetam (Keppra) 1,500 mg Q12HR GT 07/28/16 21:00 08/27/16 20:59 07/31/16 09:38 Lorazepam (Ativan) 1 mg Q6H PRN GT For Anxiety 07/28/16 14:58 08/04/16 14:44 Morphine Sulfate (Morphine Sulfate) 2 mg Q4H PRN IVP Moderate Pain (Pain Scale 4-6) 07/28/16 13:00 08/04/16 12:59 Nitroglycerin (Ntg) 0.4 mg Q5M X 3 DOSES PRN SL Prn Chest Pain 07/28/16 14:15 08/27/16 14:14 Ondansetron HCl (Zofran) 4 mg Q6H PRN IVP Nausea & Vomiting 07/28/16 15:00 08/27/16 14:59 Polyethylene Glycol (Miralax) 17 gm DAILYPRN PRN GT Constipation 07/28/16 15:00 08/27/16 14:59 Risperidone (RisperDAL) 1 mg BID ORAL 07/28/16 18:00 08/27/16 17:59 07/31/16 09:38 Temazepam (Restoril) 15 mg HSPRN PRN GT Insomnia 07/28/16 15:00 08/04/16 14:59 Valproic Acid (Depakene) 500 mg EVERY 12 HOURS GT 07/28/16 21:00 08/27/16 20:59 07/31/16 09:37 Vancomycin HCl (Vancomycin) 125 mg Q6H GT 07/29/16 20:00 08/05/16 19:59 07/31/16 15:00 Tavo Ramirez M.D. Jul 31, 2016 17:51
--- NOTE | 2016-07-31 17:51 | Pulmonology Progress Note ---
Assessment/Plan Problems: (1) Hypertension (2) Seizure (3) Sepsis (4) UTI (urinary tract infection) (5) Malfunction of gastrostomy tube (6) snf resident (7) cerebral pulsy with advanced mental retardation (8) Schizophrenia Assessment/Plan Plan Tight BP and BG control Gastroenterology to follow up Holding feeding IVF hydration Aspiration precautions Seizure precautions Subjective Constitutional: Reports: anorexia, fatigue Gastrointestinal/Abdominal: Reports: bloating, constipation, nausea Allergies: Coded Allergies: NO KNOWN DRUG ALLERGIES (Unverified Allergy, Unknown, 08/22/15) Objective Last 24 Hour Vital Signs Date Time Temp Pulse Resp B/P Pulse Ox O2 Delivery O2 Flow Rate FiO2 07/31/16 16:00 97.0 85 18 93/63 97 Room Air 07/31/16 13:13 96.6 88 18 108/67 97 Room Air 07/31/16 10:35 88 109/70 95 Room Air 07/31/16 08:18 86 18 Room Air 21 07/31/16 08:00 98.6 124 20 100/61 93 Room Air 07/31/16 04:00 96.0 96 18 107/62 96 07/31/16 00:00 97.9 90 18 98/62 94 Room Air 07/30/16 20:04 98.1 81 18 91/55 94 Room Air Intake and Output 07/30/16 07/31/16 19:00 07:00 Intake Total 610 ml 105 ml Output Total 750 ml 400 ml Balance -140 ml -295 ml IV Total 250 ml Tube Feeding 360 ml 105 ml Output Urine Total 750 ml 400 ml # Bowel Movements 1 General Appearance: no acute distress HEENT: normocephalic, atraumatic, PERRL Respiratory/Chest: chest wall non-tender, decreased breath sounds, accessory muscle use Cardiovascular: normal peripheral pulses, normal rate, regular rhythm, no JVD Abdomen: hypoactive bowel sounds, distended, guarding, tender, rebound tenderness, other - dysfunctional feeding tube Genitourinary: normal external genitalia Skin: no rash, no lesions 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, no motor/sensory deficits Microbiology Date/Time Source Procedure Growth Status 07/28/16 19:50 Stool Clostridium difficile Toxin Assay - Final Complete Laboratory Tests 07/31/16 04:50: White Blood Count 6.9, Red Blood Count 5.26, Hemoglobin 11.5L, Hematocrit 37.7L , Mean Corpuscular Volume 72L, Mean Corpuscular Hemoglobin 21.9L, Mean Corpuscular Hemoglobin Concent 30.5L, Red Cell Distribution Width 13.0, Platelet Count 252, Mean Platelet Volume 8.7, Neutrophils (%) (Auto) 60.9, Lymphocytes (%) (Auto) 23.8, Monocytes (%) (Auto) 10.0, Eosinophils (%) (Auto) 4.6H, Basophils (%) (Auto) 0.6, Sodium Level 145, Potassium Level 3.5, Chloride Level 104, Carbon Dioxide Level 27, Anion Gap 14, Blood Urea Nitrogen 12, Creatinine 0.5L, Estimat Glomerular Filtration Rate > 60, Glucose Level 114H, Calcium Level 8.9, Phosphorus Level 3.1, Magnesium Level 2.2, Total Bilirubin < 0.2, Aspartate Amino Transf (AST/SGOT) 9, Alanine Aminotransferase (ALT/SGPT) 9 , Alkaline Phosphatase 79, Total Protein 6.6, Albumin 3.0L, Globulin 3.6, Albumin/Globulin Ratio 0.8L Current Medications Medications (Trade) Dose Ordered Sig/Monalisa Route PRN Reason Start Time Stop Time Status Last Admin Dose Admin Acetaminophen (Tylenol) 650 mg Q4H PRN ORAL fever 07/28/16 15:00 08/27/16 14:59 Albuterol/ Ipratropium (DuoNeb 0.5-3(2.5)mg/3ml) 3 ml Q4H PRN HHN Shortness of Breath 07/28/16 15:00 08/02/16 14:59 Clotrimazole (Lotrimin) 1 applic THREE TIMES A DAY TOPIC 07/29/16 14:30 08/28/16 14:29 07/31/16 13:48 Finasteride (Proscar) 5 mg DAILY GT 07/29/16 09:00 08/28/16 08:59 07/31/16 09:38 Heparin Sodium (Porcine) (Heparin 5000 units/ml) 5,000 units EVERY 12 HOURS SUBQ 07/28/16 21:00 08/27/16 20:59 07/31/16 10:26 Levetiracetam (Keppra) 1,500 mg Q12HR GT 07/28/16 21:00 08/27/16 20:59 1/3/17 09:38 Lorazepam (Ativan) 1 mg Q6H PRN GT For Anxiety 07/28/16 14:58 08/04/16 14:44 Morphine Sulfate (Morphine Sulfate) 2 mg Q4H PRN IVP Moderate Pain (Pain Scale 4-6) 07/28/16 13:00 08/04/16 12:59 Nitroglycerin (Ntg) 0.4 mg Q5M X 3 DOSES PRN SL Prn Chest Pain 07/28/16 14:15 08/27/16 14:14 Ondansetron HCl (Zofran) 4 mg Q6H PRN IVP Nausea & Vomiting 07/28/16 15:00 08/27/16 14:59 Polyethylene Glycol (Miralax) 17 gm DAILYPRN PRN GT Constipation 07/28/16 15:00 08/27/16 14:59 Risperidone (RisperDAL) 1 mg BID ORAL 07/28/16 18:00 08/27/16 17:59 07/31/16 09:38 Temazepam (Restoril) 15 mg HSPRN PRN GT Insomnia 07/28/16 15:00 08/04/16 14:59 Valproic Acid (Depakene) 500 mg EVERY 12 HOURS GT 07/28/16 21:00 08/27/16 20:59 07/31/16 09:37 Vancomycin HCl (Vancomycin) 125 mg Q6H GT 07/29/16 20:00 08/05/16 19:59 07/31/16 15:00 NEEL LUJAN Jul 31, 2016 17:51
[2016-08-01] VITALS (7 sets, daily range): BP systolic 95–127; BP diastolic 56–71
[2016-08-01] MEDS: Vancomycin oral 125mg/2.5ml GT SCH ×4 (02:56→20:42)
[2016-08-01 06:16] LABS: BASOPHILS % (AUTO) 0.8 % (0.0-2.0); EOSINOPHILS % (AUTO) 4.3 % (0.0-3.0); LYMPHOCYTES % (AUTO) 23.7 % (20.0-45.0); MEAN CORPUSCULAR HEMOGLOBIN 22.2 PG (27.0-31.0); MEAN CORPUSCULAR HGB CONC 30.6 G/DL (32.0-36.0); MEAN CORPUSCULAR VOLUME 73 FL (80-99); MEAN PLATELET VOLUME 9.3 FL (6.5-10.1); MONOCYTES % (AUTO) 11.3 % (1.0-10.0); NEUTROPHILS % (AUTO) 59.9 % (45.0-75.0); PLATELET COUNT 272 K/UL (150-450); RED BLOOD COUNT 5.63 M/UL (4.70-6.10); RED CELL DISTRIBUTION WIDTH 12.8 % (11.6-14.8); WHITE BLOOD COUNT 8.2 K/UL (4.8-10.8)
[2016-08-01 06:25] LABS: ANION GAP 11 (5-15); CALCIUM 9.2 mg/dL (8.6-10.2); CARBON DIOXIDE 29 mEQ/L (20-30); CHLORIDE 106 mEQ/L (98-107); CREATININE 0.6 mg/dL (0.7-1.2); GLOMERULAR FILTRATION RATE > 60 mL/min (>60); HEMOLYSIS 0; POTASSIUM 3.7 mEQ/L (3.4-4.9); SODIUM 146 mEQ/L (135-145)
[2016-08-01] MEDS: Valproic Acid 250mg/5ml Liquid GT SCH ×2 (09:00→20:42)
[2016-08-01] MEDS: levETIRAcetam 500mg/5ml Liquid GT SCH ×2 (09:02→20:42)
[2016-08-01] MEDS: Heparin 5000 units/ml inj SUBQ SCH ×2 (09:05→20:44)
--- NOTE | 2016-08-01 10:18 | GI Progress Note ---
Assessment/Plan Problems: (1) C. difficile colitis ICD Codes: A04.7 - Enterocolitis due to Clostridium difficile SNOMED: 965293807 (2) Malfunction of percutaneous endoscopic gastrostomy (PEG) tube ICD Codes: K94.23 - Gastrostomy malfunction SNOMED: 789178048 (3) Pancytopenia ICD Codes: D61.818 - Other pancytopenia SNOMED: 419725464 Status: stable Status Narrative Discussed with Dr. Light. Assessment/Plan Assessment (1) Seizure (2) Schizophrenia (3) Diabetes (4) Hypertension (5) cerebral palsy with advanced mental retardation (6) Malfunction of gastrostomy tube - leakage (7) Anemia (8) C Diff Colitis Recommendations - Continue TF - GT replaced - Iron panel WNL - stool OB negative - Abx for C Diff Subjective Subjective limited Objective Last 24 Hour Vital Signs Date Time Temp Pulse Resp B/P Pulse Ox O2 Delivery O2 Flow Rate FiO2 08/01/16 08:49 98.4 87 20 99/68 98 Room Air 08/01/16 04:00 97.3 18 127/71 98 Room Air 08/01/16 00:00 96.9 86 20 97/64 97 Room Air 07/31/16 20:00 96.4 98 22 95/55 95 Room Air 07/31/16 16:00 97.0 85 18 93/63 97 Room Air 07/31/16 13:13 96.6 88 18 108/67 97 Room Air 07/31/16 10:35 88 109/70 95 Room Air Intake and Output 07/31/16 08/01/16 19:00 07:00 Intake Total 570 ml 555 ml Output Total 400 ml 750 ml Balance 170 ml -195 ml Free Water 30 ml 60 ml Tube Feeding 540 ml 495 ml Output Urine Total 400 ml 750 ml Laboratory Tests Test 08/01/16 04:40 White Blood Count 8.2 K/UL (4.8-10.8) Red Blood Count 5.63 M/UL (4.70-6.10) Hemoglobin 12.5 G/DL (14.2-18.0) L Hematocrit 40.9 % (42.0-52.0) L Mean Corpuscular Volume 73 FL (80-99) L Mean Corpuscular Hemoglobin 22.2 PG (27.0-31.0) L Mean Corpuscular Hemoglobin Concent 30.6 G/DL (32.0-36.0) L Red Cell Distribution Width 12.8 % (11.6-14.8) Platelet Count 272 K/UL (150-450) Mean Platelet Volume 9.3 FL (6.5-10.1) Neutrophils (%) (Auto) 59.9 % (45.0-75.0) Lymphocytes (%) (Auto) 23.7 % (20.0-45.0) Monocytes (%) (Auto) 11.3 % (1.0-10.0) H Eosinophils (%) (Auto) 4.3 % (0.0-3.0) H Basophils (%) (Auto) 0.8 % (0.0-2.0) Sodium Level 146 mEQ/L (135-145) H Potassium Level 3.7 mEQ/L (3.4-4.9) Chloride Level 106 mEQ/L (98-107) Carbon Dioxide Level 29 mEQ/L (20-30) Anion Gap 11 (5-15) Blood Urea Nitrogen 20 mg/dL (7-23) Creatinine 0.6 mg/dL (0.7-1.2) L Estimat Glomerular Filtration Rate > 60 mL/min (>60) Glucose Level 123 mg/dL (74-106) H Calcium Level 9.2 mg/dL (8.6-10.2) Height (Feet): 6 Height (Inches): 1.00 Weight (Pounds): 159 General Appearance: no apparent distress, alert Cardiovascular: normal rate Respiratory/Chest: normal breath sounds, no respiratory distress Abdominal Exam: normal bowel sounds, non tender, soft, GT site - c/d/i Chery Mcfarland N.PAnna Aug 01, 2016 10:18
--- NOTE | 2016-08-01 14:55 | General Progress Note ---
Assessment/Plan Problem List: (1) Acute lower UTI (2) Seizure disorder, complex partial ICD Codes: G40.209 - Localization-related (focal) (partial) symptomatic epilepsy and epileptic syndromes with complex partial seizures, not intractable , without status epilepticus SNOMED: 241455739 (3) Seizure ICD Codes: R56.9 - Seizure SNOMED: 82249410 (4) Hyperlipidemia ICD Codes: E78.5 - Hyperlipidemia SNOMED: 46174793 (5) Schizophrenia ICD Codes: F20.9 - Schizophrenia, unspecified SNOMED: 24368326 (6) Diabetes ICD Codes: E11.9 - Diabetes SNOMED: 96845718 (7) Sepsis ICD Codes: A41.9 - Sepsis SNOMED: 37903698 Status: progressing Assessment/Plan afebrile vitals stable no wheezing reviewed chart and labs clinically improving Subjective ROS Limited/Unobtainable: Yes Constitutional: Reports: no symptoms Allergies: Coded Allergies: NO KNOWN DRUG ALLERGIES (Unverified Allergy, Unknown, 08/22/15) Objective Last 24 Hour Vital Signs Date Time Temp Pulse Resp B/P Pulse Ox O2 Delivery O2 Flow Rate FiO2 08/01/16 12:00 97.0 93 20 95/56 95 Room Air 08/01/16 08:49 98.4 87 20 99/68 98 Room Air 08/01/16 04:00 97.3 18 127/71 98 Room Air 08/01/16 00:00 96.9 86 20 97/64 97 Room Air 07/31/16 20:00 96.4 98 22 95/55 95 Room Air 07/31/16 16:00 97.0 85 18 93/63 97 Room Air Intake and Output 07/31/16 08/01/16 19:00 07:00 Intake Total 570 ml 600 ml Output Total 400 ml 750 ml Balance 170 ml -150 ml Free Water 30 ml 60 ml Tube Feeding 540 ml 540 ml Output Urine Total 400 ml 750 ml Laboratory Tests 08/01/16 04:40: White Blood Count 8.2, Red Blood Count 5.63, Hemoglobin 12.5L, Hematocrit 40.9L , Mean Corpuscular Volume 73L, Mean Corpuscular Hemoglobin 22.2L, Mean Corpuscular Hemoglobin Concent 30.6L, Red Cell Distribution Width 12.8, Platelet Count 272, Mean Platelet Volume 9.3, Neutrophils (%) (Auto) 59.9, Lymphocytes (%) (Auto) 23.7, Monocytes (%) (Auto) 11.3H, Eosinophils (%) (Auto) 4.3H, Basophils (%) (Auto) 0.8, Sodium Level 146H, Potassium Level 3.7, Chloride Level 106, Carbon Dioxide Level 29, Anion Gap 11, Blood Urea Nitrogen 20, Creatinine 0.6L, Estimat Glomerular Filtration Rate > 60, Glucose Level 123H , Calcium Level 9.2 Height (Feet): 6 Height (Inches): 1.00 Weight (Pounds): 159 EENT: PERRL/EOMI Neck: supple Cardiovascular: normal rate Respiratory/Chest: lungs clear Abdomen: soft Amy Martínez MD Aug 01, 2016 14:55
--- NOTE | 2016-08-01 15:57 | Progress Note ---
DATE: 07/31/2016 PSYCHOTHERAPY CONSULTATION PROGRESS NOTE: TREATING ATTENDING PHYSICIAN: Donaldo Johnson D.O. SUBJECTIVE: The patient is a 60-year-old male with a diagnosis of paranoid schizophrenia. The patient has been very disorganized, confused, and altered mental status, unable to get a viable plan for self-care and safety. The patient has been irritable and agitated. The patient has been managed . The patient has reality orientation, , mental status. Encouraging the patient to participate in treatment. Continue with medication management and behavioral management. This clinician has reviewed the patient's chart and discussed the treatment with nursing staff. Gordo Adams PsyD. DR: JENNIFER JOB#: [id number] CC:
--- NOTE | 2016-08-01 16:10 | Cardiac Electrophysiology PN ---
Assessment/Plan Assessment/Plan 1. Sinus Tachycardia due to sepsis and dehydration . No atrial fibrillation or mi. 2. Gastrostomy tube malfunction. GT replaced 3. Cerebral palsy. 4. Seizure disorder. 5. Schizophrenia. 6. C diff on Antibiotics per ID DW RN Subjective Subjective Nonverbal. RN at bedside.On nonmonitored bed.No cardiac events overnight. Objective Last 24 Hour Vital Signs Date Time Temp Pulse Resp B/P Pulse Ox O2 Delivery O2 Flow Rate FiO2 08/01/16 12:00 97.0 93 20 95/56 95 Room Air 08/01/16 08:49 98.4 87 20 99/68 98 Room Air 08/01/16 04:00 97.3 18 127/71 98 Room Air 08/01/16 00:00 96.9 86 20 97/64 97 Room Air 07/31/16 20:00 96.4 98 22 95/55 95 Room Air Intake and Output 07/31/16 08/01/16 18:59 06:59 Intake Total 525 ml 600 ml Output Total 400 ml 750 ml Balance 125 ml -150 ml Free Water 30 ml 60 ml Tube Feeding 495 ml 540 ml Output Urine Total 400 ml 750 ml Laboratory Tests Test 08/01/16 04:40 White Blood Count 8.2 K/UL (4.8-10.8) Red Blood Count 5.63 M/UL (4.70-6.10) Hemoglobin 12.5 G/DL (14.2-18.0) L Hematocrit 40.9 % (42.0-52.0) L Mean Corpuscular Volume 73 FL (80-99) L Mean Corpuscular Hemoglobin 22.2 PG (27.0-31.0) L Mean Corpuscular Hemoglobin Concent 30.6 G/DL (32.0-36.0) L Red Cell Distribution Width 12.8 % (11.6-14.8) Platelet Count 272 K/UL (150-450) Mean Platelet Volume 9.3 FL (6.5-10.1) Neutrophils (%) (Auto) 59.9 % (45.0-75.0) Lymphocytes (%) (Auto) 23.7 % (20.0-45.0) Monocytes (%) (Auto) 11.3 % (1.0-10.0) H Eosinophils (%) (Auto) 4.3 % (0.0-3.0) H Basophils (%) (Auto) 0.8 % (0.0-2.0) Sodium Level 146 mEQ/L (135-145) H Potassium Level 3.7 mEQ/L (3.4-4.9) Chloride Level 106 mEQ/L (98-107) Carbon Dioxide Level 29 mEQ/L (20-30) Anion Gap 11 (5-15) Blood Urea Nitrogen 20 mg/dL (7-23) Creatinine 0.6 mg/dL (0.7-1.2) L Estimat Glomerular Filtration Rate > 60 mL/min (>60) Glucose Level 123 mg/dL (74-106) H Calcium Level 9.2 mg/dL (8.6-10.2) Objective HEAD AND NECK: Shows no JVD. LUNGS: Coarse rhonchi. CARDIOVASCULAR: Irregularly irregular S1 and S2 with no gallop or murmur. Tachycardic. ABDOMEN: Status post G-tube EXTREMITIES: No pitting edema. HUMPHREY FRANCO Aug 01, 2016 16:10
--- NOTE | 2016-08-01 17:21 | Infectious Diseases Prog Note ---
Assessment/Plan Problems: (1) C. difficile colitis Assessment & Plan: will continue vancomycin orally for two weeks , avoid antibiotics, antacids and Imodium (2) Malfunction of percutaneous endoscopic gastrostomy (PEG) tube Assessment & Plan: S/P replacement, GI is following (3) Diabetes Assessment & Plan: recommend tight glycemic control to keep fasting less than 120, and premeal less than 130 (4) Dermatitis Assessment & Plan: due to bile acid irritation from the G tube site leakage, continue local skin care and G tube care (5) Pseudomonas aeruginosa colonization Assessment & Plan: in the sputum, no evidence of pneumonia, no need for antibiotics therapy Subjective ROS Limited/Unobtainable: Yes Allergies: Coded Allergies: NO KNOWN DRUG ALLERGIES (Unverified Allergy, Unknown, 08/22/15) Subjective he is demented, resting in bed, afebrile, not in distress Objective Vital Signs Last 24 Hour Vital Signs Date Time Temp Pulse Resp B/P Pulse Ox O2 Delivery O2 Flow Rate FiO2 08/01/16 16:00 97.5 90 20 98/63 95 Room Air 08/01/16 12:00 97.0 93 20 95/56 95 Room Air 08/01/16 08:49 98.4 87 20 99/68 98 Room Air 08/01/16 04:00 97.3 18 127/71 98 Room Air 08/01/16 00:00 96.9 86 20 97/64 97 Room Air 07/31/16 20:00 96.4 98 22 95/55 95 Room Air Height (Feet): 6 Height (Inches): 1.00 Weight (Pounds): 159 General Appearance: WD/WN, no acute distress HEENT: normocephalic, atraumatic, anicteric, mucous membranes moist Respiratory/Chest: chest wall non-tender, lungs clear, normal breath sounds, no respiratory distress, no accessory muscle use Cardiovascular: normal peripheral pulses, normal rate, regular rhythm Abdomen: normal bowel sounds, soft, non tender, no organomegaly, non distended , no mass Extremities: no cyanosis, no clubbing Skin: no rash, no lesions Laboratory Tests Test 08/01/16 04:40 White Blood Count 8.2 K/UL (4.8-10.8) Red Blood Count 5.63 M/UL (4.70-6.10) Hemoglobin 12.5 G/DL (14.2-18.0) L Hematocrit 40.9 % (42.0-52.0) L Mean Corpuscular Volume 73 FL (80-99) L Mean Corpuscular Hemoglobin 22.2 PG (27.0-31.0) L Mean Corpuscular Hemoglobin Concent 30.6 G/DL (32.0-36.0) L Red Cell Distribution Width 12.8 % (11.6-14.8) Platelet Count 272 K/UL (150-450) Mean Platelet Volume 9.3 FL (6.5-10.1) Neutrophils (%) (Auto) 59.9 % (45.0-75.0) Lymphocytes (%) (Auto) 23.7 % (20.0-45.0) Monocytes (%) (Auto) 11.3 % (1.0-10.0) H Eosinophils (%) (Auto) 4.3 % (0.0-3.0) H Basophils (%) (Auto) 0.8 % (0.0-2.0) Sodium Level 146 mEQ/L (135-145) H Potassium Level 3.7 mEQ/L (3.4-4.9) Chloride Level 106 mEQ/L (98-107) Carbon Dioxide Level 29 mEQ/L (20-30) Anion Gap 11 (5-15) Blood Urea Nitrogen 20 mg/dL (7-23) Creatinine 0.6 mg/dL (0.7-1.2) L Estimat Glomerular Filtration Rate > 60 mL/min (>60) Glucose Level 123 mg/dL (74-106) H Calcium Level 9.2 mg/dL (8.6-10.2) Current Medications Medications (Trade) Dose Ordered Sig/Monalisa Route PRN Reason Start Time Stop Time Status Last Admin Dose Admin Acetaminophen (Tylenol) 650 mg Q4H PRN ORAL fever 07/28/16 15:00 08/27/16 14:59 Albuterol/ Ipratropium (DuoNeb 0.5-3(2.5)mg/3ml) 3 ml Q4H PRN HHN Shortness of Breath 07/28/16 15:00 08/02/16 14:59 Clotrimazole (Lotrimin) 1 applic THREE TIMES A DAY TOPIC 07/29/16 14:30 08/28/16 14:29 1/4/17 13:30 Finasteride (Proscar) 5 mg DAILY GT 07/29/16 09:00 08/28/16 08:59 08/01/16 09:01 Heparin Sodium (Porcine) (Heparin 5000 units/ml) 5,000 units EVERY 12 HOURS SUBQ 07/28/16 21:00 08/27/16 20:59 08/01/16 09:05 Levetiracetam (Keppra) 1,500 mg Q12HR GT 07/28/16 21:00 08/27/16 20:59 08/01/16 09:02 Lorazepam (Ativan) 1 mg Q6H PRN GT For Anxiety 07/28/16 14:58 08/04/16 14:44 Morphine Sulfate (Morphine Sulfate) 2 mg Q4H PRN IVP Moderate Pain (Pain Scale 4-6) 07/28/16 13:00 08/04/16 12:59 Nitroglycerin (Ntg) 0.4 mg Q5M X 3 DOSES PRN SL Prn Chest Pain 07/28/16 14:15 08/27/16 14:14 Ondansetron HCl (Zofran) 4 mg Q6H PRN IVP Nausea & Vomiting 07/28/16 15:00 08/27/16 14:59 Polyethylene Glycol (Miralax) 17 gm DAILYPRN PRN GT Constipation 07/28/16 15:00 08/27/16 14:59 Risperidone (RisperDAL) 1 mg BID ORAL 07/28/16 18:00 08/27/16 17:59 08/01/16 09:01 Temazepam (Restoril) 15 mg HSPRN PRN GT Insomnia 07/28/16 15:00 08/04/16 14:59 Valproic Acid (Depakene) 500 mg EVERY 12 HOURS GT 07/28/16 21:00 08/27/16 20:59 08/01/16 09:00 Vancomycin HCl (Vancomycin) 125 mg Q6H GT 07/29/16 20:00 08/05/16 19:59 08/01/16 13:30 Tavo Ramirez M.D. Aug 01, 2016 17:21
--- NOTE | 2016-08-01 18:12 | Pulmonology Progress Note ---
Assessment/Plan Problems: (1) Hypertension (2) Seizure (3) Sepsis (4) UTI (urinary tract infection) (5) Malfunction of gastrostomy tube (6) custodial resident (7) cerebral pulsy with advanced mental retardation (8) Schizophrenia Assessment/Plan Plan Tight BP and BG control Gastroenterology to follow up Holding feeding IVF hydration Aspiration precautions Seizure precautions Subjective ROS Limited/Unobtainable: Yes Constitutional: Reports: anorexia, fatigue Neurologic: Reports: confusion, seizures, weakness Allergies: Coded Allergies: NO KNOWN DRUG ALLERGIES (Unverified Allergy, Unknown, 08/22/15) Objective Last 24 Hour Vital Signs Date Time Temp Pulse Resp B/P Pulse Ox O2 Delivery O2 Flow Rate FiO2 08/01/16 16:00 97.5 90 20 98/63 95 Room Air 08/01/16 12:00 97.0 93 20 95/56 95 Room Air 08/01/16 08:49 98.4 87 20 99/68 98 Room Air 08/01/16 04:00 97.3 18 127/71 98 Room Air 08/01/16 00:00 96.9 86 20 97/64 97 Room Air 07/31/16 20:00 96.4 98 22 95/55 95 Room Air Intake and Output 07/31/16 08/01/16 19:00 07:00 Intake Total 570 ml 600 ml Output Total 400 ml 750 ml Balance 170 ml -150 ml Free Water 30 ml 60 ml Tube Feeding 540 ml 540 ml Output Urine Total 400 ml 750 ml General Appearance: no acute distress HEENT: normocephalic, atraumatic, PERRL Respiratory/Chest: chest wall non-tender, decreased breath sounds, accessory muscle use Cardiovascular: normal peripheral pulses, normal rate, regular rhythm, no JVD Abdomen: normal bowel sounds, soft, non tender, no organomegaly Genitourinary: normal external genitalia Extremities: no cyanosis Skin: no rash, no lesions 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, no motor/sensory deficits Laboratory Tests 08/01/16 04:40: White Blood Count 8.2, Red Blood Count 5.63, Hemoglobin 12.5L, Hematocrit 40.9L , Mean Corpuscular Volume 73L, Mean Corpuscular Hemoglobin 22.2L, Mean Corpuscular Hemoglobin Concent 30.6L, Red Cell Distribution Width 12.8, Platelet Count 272, Mean Platelet Volume 9.3, Neutrophils (%) (Auto) 59.9, Lymphocytes (%) (Auto) 23.7, Monocytes (%) (Auto) 11.3H, Eosinophils (%) (Auto) 4.3H, Basophils (%) (Auto) 0.8, Sodium Level 146H, Potassium Level 3.7, Chloride Level 106, Carbon Dioxide Level 29, Anion Gap 11, Blood Urea Nitrogen 20, Creatinine 0.6L, Estimat Glomerular Filtration Rate > 60, Glucose Level 123H , Calcium Level 9.2 Current Medications Medications (Trade) Dose Ordered Sig/Monalisa Route PRN Reason Start Time Stop Time Status Last Admin Dose Admin Acetaminophen (Tylenol) 650 mg Q4H PRN ORAL fever 07/28/16 15:00 08/27/16 14:59 Albuterol/ Ipratropium (DuoNeb 0.5-3(2.5)mg/3ml) 3 ml Q4H PRN HHN Shortness of Breath 07/28/16 15:00 08/02/16 14:59 Clotrimazole (Lotrimin) 1 applic THREE TIMES A DAY TOPIC 07/29/16 14:30 08/28/16 14:29 08/01/16 17:42 Finasteride (Proscar) 5 mg DAILY GT 07/29/16 09:00 08/28/16 08:59 08/01/16 09:01 Heparin Sodium (Porcine) (Heparin 5000 units/ml) 5,000 units EVERY 12 HOURS SUBQ 07/28/16 21:00 08/27/16 20:59 08/01/16 09:05 Levetiracetam (Keppra) 1,500 mg Q12HR GT 07/28/16 21:00 08/27/16 20:59 08/01/16 09:02 Lorazepam (Ativan) 1 mg Q6H PRN GT For Anxiety 07/28/16 14:58 08/04/16 14:44 Morphine Sulfate (Morphine Sulfate) 2 mg Q4H PRN IVP Moderate Pain (Pain Scale 4-6) 07/28/16 13:00 08/04/16 12:59 Nitroglycerin (Ntg) 0.4 mg Q5M X 3 DOSES PRN SL Prn Chest Pain 07/28/16 14:15 08/27/16 14:14 Ondansetron HCl (Zofran) 4 mg Q6H PRN IVP Nausea & Vomiting 07/28/16 15:00 08/27/16 14:59 Polyethylene Glycol (Miralax) 17 gm DAILYPRN PRN GT Constipation 07/28/16 15:00 08/27/16 14:59 Risperidone (RisperDAL) 1 mg BID ORAL 07/28/16 18:00 08/27/16 17:59 08/01/16 17:42 Temazepam (Restoril) 15 mg HSPRN PRN GT Insomnia 07/28/16 15:00 08/04/16 14:59 Valproic Acid (Depakene) 500 mg EVERY 12 HOURS GT 07/28/16 21:00 08/27/16 20:59 08/01/16 09:00 Vancomycin HCl (Vancomycin) 125 mg Q6H GT 07/29/16 20:00 08/05/16 19:59 08/01/16 13:30 NEEL LUJAN Aug 01, 2016 18:12
[2016-08-02] VITALS: BP 96/61
[2016-08-02] MEDS: Vancomycin oral 125mg/2.5ml GT SCH ×4 (03:03→18:03)
[2016-08-02 04:00] VITALS: BP 90/57
--- NOTE | 2016-08-02 06:07 | Consultation ---
DATE OF CONSULTATION: 08/01/2016 PSYCHOTHERAPY CONSULTATION PROGRESS NOTE: CONSULTING PHYSICIAN: Gordo Adams M.D. TREATING ATTENDING: Donaldo Johnson D.O. HISTORY OF PRESENT ILLNESS: The patient is a 60-year-old male under the care of Dr. Donaldo Johnson awake the patient has been irritable, agitated, and anxious treatment. has poor insight, poor judgment, and poor impulse control. Requires hospitalization for stabilization of his symptoms. providing the patient with supportive psychotherapy, reality orientation, and coping skills. Encouraging the patient to participate in treatment. Continue with medication management and behavioral management. This clinician has reviewed the patient's chart. Discussed the treatment with nursing staff. Gordo Adams PsyD. DR: Donna JOB#: [id number] CC:
[2016-08-02 07:03] LABS: BASOPHILS % (AUTO) 0.7 % (0.0-2.0); EOSINOPHILS % (AUTO) 2.9 % (0.0-3.0); LYMPHOCYTES % (AUTO) 23.3 % (20.0-45.0); MEAN CORPUSCULAR HEMOGLOBIN 22.7 PG (27.0-31.0); MEAN CORPUSCULAR HGB CONC 31.1 G/DL (32.0-36.0); MEAN CORPUSCULAR VOLUME 73 FL (80-99); MEAN PLATELET VOLUME 8.2 FL (6.5-10.1); NEUTROPHILS % (AUTO) 64.1 % (45.0-75.0); PLATELET COUNT 280 K/UL (150-450); RED BLOOD COUNT 5.49 M/UL (4.70-6.10); RED CELL DISTRIBUTION WIDTH 12.9 % (11.6-14.8); WHITE BLOOD COUNT 8.6 K/UL (4.8-10.8)
[2016-08-02 07:19] LABS: ANION GAP 11 (5-15); CALCIUM 9.3 mg/dL (8.6-10.2); CARBON DIOXIDE 28 mEQ/L (20-30); CHLORIDE 106 mEQ/L (98-107); CREATININE 0.6 mg/dL (0.7-1.2); GLOMERULAR FILTRATION RATE > 60 mL/min (>60); HEMOLYSIS 0; POTASSIUM 4.5 mEQ/L (3.4-4.9); SODIUM 145 mEQ/L (135-145)
[2016-08-02] MEDS: Valproic Acid 250mg/5ml Liquid GT SCH ×2 (08:33→22:31)
[2016-08-02] MEDS: levETIRAcetam 500mg/5ml Liquid GT SCH ×2 (08:34→22:32)
[2016-08-02] MEDS: Heparin 5000 units/ml inj SUBQ SCH ×2 (08:35→22:38)
[2016-08-02 08:47] VITALS: BP 91/65
--- NOTE | 2016-08-02 11:47 | GI Progress Note ---
Assessment/Plan Problems: (1) C. difficile colitis ICD Codes: A04.7 - Enterocolitis due to Clostridium difficile SNOMED: 884571584 (2) Malfunction of percutaneous endoscopic gastrostomy (PEG) tube ICD Codes: K94.23 - Gastrostomy malfunction SNOMED: 552753794 (3) Pancytopenia ICD Codes: D61.818 - Other pancytopenia SNOMED: 951651640 Status: stable Status Narrative Discussed with Dr. Light. Assessment/Plan Assessment (1) Seizure (2) Schizophrenia (3) Diabetes (4) Hypertension (5) cerebral palsy with advanced mental retardation (6) Malfunction of gastrostomy tube - leakage (7) Anemia (8) C Diff Colitis Recommendations - ok for DC per GI standpoint - Continue TF - GT replaced/site care daily/prn - Iron panel WNL - stool OB negative - Abx for C Diff Subjective Subjective limited Objective Last 24 Hour Vital Signs Date Time Temp Pulse Resp B/P Pulse Ox O2 Delivery O2 Flow Rate FiO2 08/02/16 10:35 80 18 Room Air 08/02/16 08:47 98.4 85 20 91/65 97 Room Air 08/02/16 04:00 97.5 92 18 90/57 95 Room Air 08/02/16 00:00 97.2 73 18 96/61 96 Room Air 08/01/16 20:00 97.2 98 20 95/63 94 Room Air 08/01/16 19:00 88 18 Room Air 21 08/01/16 16:00 97.5 90 20 98/63 95 Room Air 08/01/16 12:00 97.0 93 20 95/56 95 Room Air Intake and Output 08/01/16 08/02/16 19:00 07:00 Intake Total 570 ml 660 ml Output Total 350 ml 1300 ml Balance 220 ml -640 ml Free Water 30 ml 120 ml Tube Feeding 540 ml 540 ml Output Urine Total 350 ml 1300 ml # Bowel Movements 1 Laboratory Tests Test 08/02/16 05:50 White Blood Count 8.6 K/UL (4.8-10.8) Red Blood Count 5.49 M/UL (4.70-6.10) Hemoglobin 12.5 G/DL (14.2-18.0) L Hematocrit 40.1 % (42.0-52.0) L Mean Corpuscular Volume 73 FL (80-99) L Mean Corpuscular Hemoglobin 22.7 PG (27.0-31.0) L Mean Corpuscular Hemoglobin Concent 31.1 G/DL (32.0-36.0) L Red Cell Distribution Width 12.9 % (11.6-14.8) Platelet Count 280 K/UL (150-450) Mean Platelet Volume 8.2 FL (6.5-10.1) Neutrophils (%) (Auto) 64.1 % (45.0-75.0) Lymphocytes (%) (Auto) 23.3 % (20.0-45.0) Monocytes (%) (Auto) 9.0 % (1.0-10.0) Eosinophils (%) (Auto) 2.9 % (0.0-3.0) Basophils (%) (Auto) 0.7 % (0.0-2.0) Sodium Level 145 mEQ/L (135-145) Potassium Level 4.5 mEQ/L (3.4-4.9) Chloride Level 106 mEQ/L (98-107) Carbon Dioxide Level 28 mEQ/L (20-30) Anion Gap 11 (5-15) Blood Urea Nitrogen 23 mg/dL (7-23) Creatinine 0.6 mg/dL (0.7-1.2) L Estimat Glomerular Filtration Rate > 60 mL/min (>60) Glucose Level 110 mg/dL (74-106) H Calcium Level 9.3 mg/dL (8.6-10.2) Height (Feet): 6 Height (Inches): 1.00 Weight (Pounds): 159 General Appearance: no apparent distress, alert Cardiovascular: normal rate Respiratory/Chest: no respiratory distress Abdominal Exam: site - c/d/i Chery Mcfarland N.P. Aug 02, 2016 11:47
[2016-08-02 12:08] VITALS: BP 99/66
--- NOTE | 2016-08-02 12:54 | General Progress Note ---
Assessment/Plan Problem List: (1) Acute lower UTI (2) Seizure disorder, complex partial ICD Codes: G40.209 - Localization-related (focal) (partial) symptomatic epilepsy and epileptic syndromes with complex partial seizures, not intractable , without status epilepticus SNOMED: 686185522 (3) Seizure ICD Codes: R56.9 - Seizure SNOMED: 74443897 (4) Hyperlipidemia ICD Codes: E78.5 - Hyperlipidemia SNOMED: 65866161 (5) Schizophrenia ICD Codes: F20.9 - Schizophrenia, unspecified SNOMED: 98195468 (6) Diabetes ICD Codes: E11.9 - Diabetes SNOMED: 67901742 (7) Sepsis ICD Codes: A41.9 - Sepsis SNOMED: 09033201 Status: progressing Assessment/Plan vitals stable dm htn afebrile vitals stable no acute events Subjective ROS Limited/Unobtainable: Yes Constitutional: Reports: no symptoms Allergies: Coded Allergies: NO KNOWN DRUG ALLERGIES (Unverified Allergy, Unknown, 08/22/15) Objective Last 24 Hour Vital Signs Date Time Temp Pulse Resp B/P Pulse Ox O2 Delivery O2 Flow Rate FiO2 08/02/16 12:08 98.0 82 20 99/66 97 Room Air 08/02/16 10:35 80 18 Room Air 21 08/02/16 08:47 98.4 85 20 91/65 97 Room Air 08/02/16 04:00 97.5 92 18 90/57 95 Room Air 08/02/16 00:00 97.2 73 18 96/61 96 Room Air 08/01/16 20:00 97.2 98 20 95/63 94 Room Air 08/01/16 19:00 88 18 Room Air 21 08/01/16 16:00 97.5 90 20 98/63 95 Room Air Intake and Output 08/01/16 08/02/16 19:00 07:00 Intake Total 570 ml 660 ml Output Total 350 ml 1300 ml Balance 220 ml -640 ml Free Water 30 ml 120 ml Tube Feeding 540 ml 540 ml Output Urine Total 350 ml 1300 ml # Bowel Movements 1 Laboratory Tests 08/02/16 05:50: White Blood Count 8.6, Red Blood Count 5.49, Hemoglobin 12.5L, Hematocrit 40.1L , Mean Corpuscular Volume 73L, Mean Corpuscular Hemoglobin 22.7L, Mean Corpuscular Hemoglobin Concent 31.1L, Red Cell Distribution Width 12.9, Platelet Count 280, Mean Platelet Volume 8.2, Neutrophils (%) (Auto) 64.1, Lymphocytes (%) (Auto) 23.3, Monocytes (%) (Auto) 9.0, Eosinophils (%) (Auto) 2.9, Basophils (%) (Auto) 0.7, Sodium Level 145, Potassium Level 4.5, Chloride Level 106, Carbon Dioxide Level 28, Anion Gap 11, Blood Urea Nitrogen 23, Creatinine 0.6L, Estimat Glomerular Filtration Rate > 60, Glucose Level 110H, Calcium Level 9.3 Height (Feet): 6 Height (Inches): 1.00 Weight (Pounds): 159 EENT: PERRL/EOMI Neck: supple Cardiovascular: normal rate Respiratory/Chest: lungs clear Amy Martínez MD Aug 02, 2016 12:54
[2016-08-02 16:13] VITALS: BP 100/63
--- NOTE | 2016-08-02 17:03 | Infectious Diseases Prog Note ---
Assessment/Plan Problems: (1) C. difficile colitis Assessment & Plan: will continue vancomycin orally for two weeks , avoid antibiotics, antacids and Imodium (2) Malfunction of percutaneous endoscopic gastrostomy (PEG) tube Assessment & Plan: S/P replacement, GI is following (3) Diabetes Assessment & Plan: recommend tight glycemic control to keep fasting less than 120, and premeal less than 130 (4) Dermatitis Assessment & Plan: due to bile acid irritation from the G tube site leakage, continue local skin care and G tube care (5) Pseudomonas aeruginosa colonization Assessment & Plan: in the sputum, no evidence of pneumonia, no need for antibiotics therapy Subjective Constitutional: Reports: no symptoms HEENT: Reports: no symptoms Respiratory: Reports: no symptoms Cardiovascular: Reports: no symptoms Gastrointestinal/Abdominal: Reports: no symptoms Genitourinary: Reports: no symptoms Neurologic: Reports: no symptoms Psychiatric: Reports: no symptoms Skin: Reports: no symptoms Allergies: Coded Allergies: NO KNOWN DRUG ALLERGIES (Unverified Allergy, Unknown, 08/22/15) Subjective he is demented, resting in bed, afebrile, not in distress Objective Vital Signs Last 24 Hour Vital Signs Date Time Temp Pulse Resp B/P Pulse Ox O2 Delivery O2 Flow Rate FiO2 08/02/16 16:13 97.5 84 14 100/63 98 Room Air 08/02/16 12:08 98.0 82 20 99/66 97 Room Air 08/02/16 10:35 80 18 Room Air 21 08/02/16 08:47 98.4 85 20 91/65 97 Room Air 08/02/16 04:00 97.5 92 18 90/57 95 Room Air 08/02/16 00:00 97.2 73 18 96/61 96 Room Air 08/01/16 20:00 97.2 98 20 95/63 94 Room Air 08/01/16 19:00 88 18 Room Air 21 Height (Feet): 6 Height (Inches): 1.00 Weight (Pounds): 159 General Appearance: WD/WN, no acute distress HEENT: normocephalic, atraumatic, anicteric, mucous membranes moist Respiratory/Chest: chest wall non-tender, lungs clear, normal breath sounds, no respiratory distress, no accessory muscle use Cardiovascular: normal peripheral pulses, normal rate, regular rhythm, no gallop/murmur Abdomen: normal bowel sounds, soft, non tender, no organomegaly, non distended , no mass Extremities: no cyanosis, no clubbing Skin: no rash, no lesions Laboratory Tests Test 08/02/16 05:50 White Blood Count 8.6 K/UL (4.8-10.8) Red Blood Count 5.49 M/UL (4.70-6.10) Hemoglobin 12.5 G/DL (14.2-18.0) L Hematocrit 40.1 % (42.0-52.0) L Mean Corpuscular Volume 73 FL (80-99) L Mean Corpuscular Hemoglobin 22.7 PG (27.0-31.0) L Mean Corpuscular Hemoglobin Concent 31.1 G/DL (32.0-36.0) L Red Cell Distribution Width 12.9 % (11.6-14.8) Platelet Count 280 K/UL (150-450) Mean Platelet Volume 8.2 FL (6.5-10.1) Neutrophils (%) (Auto) 64.1 % (45.0-75.0) Lymphocytes (%) (Auto) 23.3 % (20.0-45.0) Monocytes (%) (Auto) 9.0 % (1.0-10.0) Eosinophils (%) (Auto) 2.9 % (0.0-3.0) Basophils (%) (Auto) 0.7 % (0.0-2.0) Sodium Level 145 mEQ/L (135-145) Potassium Level 4.5 mEQ/L (3.4-4.9) Chloride Level 106 mEQ/L (98-107) Carbon Dioxide Level 28 mEQ/L (20-30) Anion Gap 11 (5-15) Blood Urea Nitrogen 23 mg/dL (7-23) Creatinine 0.6 mg/dL (0.7-1.2) L Estimat Glomerular Filtration Rate > 60 mL/min (>60) Glucose Level 110 mg/dL (74-106) H Calcium Level 9.3 mg/dL (8.6-10.2) Current Medications Medications (Trade) Dose Ordered Sig/Monalisa Route PRN Reason Start Time Stop Time Status Last Admin Dose Admin Acetaminophen (Tylenol) 650 mg Q4H PRN ORAL fever 07/28/16 15:00 08/27/16 14:59 Clotrimazole (Lotrimin) 1 applic THREE TIMES A DAY TOPIC 07/29/16 14:30 08/28/16 14:29 08/02/16 12:57 Finasteride (Proscar) 5 mg DAILY GT 07/29/16 09:00 08/28/16 08:59 08/02/16 08:33 Heparin Sodium (Porcine) (Heparin 5000 units/ml) 5,000 units EVERY 12 HOURS SUBQ 07/28/16 21:00 08/27/16 20:59 08/02/16 08:35 Levetiracetam (Keppra) 1,500 mg Q12HR GT 07/28/16 21:00 08/27/16 20:59 08/02/16 08:34 Lorazepam (Ativan) 1 mg Q6H PRN GT For Anxiety 07/28/16 14:58 08/04/16 14:44 Morphine Sulfate (Morphine Sulfate) 2 mg Q4H PRN IVP Moderate Pain (Pain Scale 4-6) 07/28/16 13:00 08/04/16 12:59 Nitroglycerin (Ntg) 0.4 mg Q5M X 3 DOSES PRN SL Prn Chest Pain 07/28/16 14:15 08/27/16 14:14 Ondansetron HCl (Zofran) 4 mg Q6H PRN IVP Nausea & Vomiting 07/28/16 15:00 08/27/16 14:59 Polyethylene Glycol (Miralax) 17 gm DAILYPRN PRN GT Constipation 07/28/16 15:00 08/27/16 14:59 Risperidone (RisperDAL) 1 mg BID ORAL 07/28/16 18:00 08/27/16 17:59 08/02/16 08:33 Temazepam (Restoril) 15 mg HSPRN PRN GT Insomnia 07/28/16 15:00 08/04/16 14:59 Valproic Acid (Depakene) 500 mg EVERY 12 HOURS GT 07/28/16 21:00 08/27/16 20:59 08/02/16 08:33 Vancomycin HCl (Vancomycin) 125 mg Q6H GT 07/29/16 20:00 08/05/16 19:59 08/02/16 14:03 Tavo Ramirez M.D. Aug 02, 2016 17:03
--- NOTE | 2016-08-02 18:32 | Cardiac Electrophysiology PN ---
Assessment/Plan Assessment/Plan 1. Sinus Tachycardia due to sepsis and dehydration. 2. Gastrostomy tube malfunction. GT replaced 3. Cerebral palsy. 4. Seizure disorder. 5. Schizophrenia. 6. C. diff on Antibiotics DW RN Subjective Subjective Nonverbal.No cardiac events overnight.Gets GT feeding. Objective Last 24 Hour Vital Signs Date Time Temp Pulse Resp B/P Pulse Ox O2 Delivery O2 Flow Rate FiO2 08/02/16 16:13 97.5 84 14 100/63 98 Room Air 08/02/16 12:08 98.0 82 20 99/66 97 Room Air 08/02/16 10:35 80 18 Room Air 21 08/02/16 08:47 98.4 85 20 91/65 97 Room Air 08/02/16 04:00 97.5 92 18 90/57 95 Room Air 08/02/16 00:00 97.2 73 18 96/61 96 Room Air 08/01/16 20:00 97.2 98 20 95/63 94 Room Air 08/01/16 19:00 88 18 Room Air 21 Intake and Output 08/01/16 08/02/16 19:00 07:00 Intake Total 570 ml 660 ml Output Total 350 ml 1300 ml Balance 220 ml -640 ml Free Water 30 ml 120 ml Tube Feeding 540 ml 540 ml Output Urine Total 350 ml 1300 ml # Bowel Movements 1 Laboratory Tests Test 08/02/16 05:50 White Blood Count 8.6 K/UL (4.8-10.8) Red Blood Count 5.49 M/UL (4.70-6.10) Hemoglobin 12.5 G/DL (14.2-18.0) L Hematocrit 40.1 % (42.0-52.0) L Mean Corpuscular Volume 73 FL (80-99) L Mean Corpuscular Hemoglobin 22.7 PG (27.0-31.0) L Mean Corpuscular Hemoglobin Concent 31.1 G/DL (32.0-36.0) L Red Cell Distribution Width 12.9 % (11.6-14.8) Platelet Count 280 K/UL (150-450) Mean Platelet Volume 8.2 FL (6.5-10.1) Neutrophils (%) (Auto) 64.1 % (45.0-75.0) Lymphocytes (%) (Auto) 23.3 % (20.0-45.0) Monocytes (%) (Auto) 9.0 % (1.0-10.0) Eosinophils (%) (Auto) 2.9 % (0.0-3.0) Basophils (%) (Auto) 0.7 % (0.0-2.0) Sodium Level 145 mEQ/L (135-145) Potassium Level 4.5 mEQ/L (3.4-4.9) Chloride Level 106 mEQ/L (98-107) Carbon Dioxide Level 28 mEQ/L (20-30) Anion Gap 11 (5-15) Blood Urea Nitrogen 23 mg/dL (7-23) Creatinine 0.6 mg/dL (0.7-1.2) L Estimat Glomerular Filtration Rate > 60 mL/min (>60) Glucose Level 110 mg/dL (74-106) H Calcium Level 9.3 mg/dL (8.6-10.2) Objective HEAD AND NECK: Shows no JVD. LUNGS: Coarse rhonchi. CARDIOVASCULAR: Irregularly irregular S1 and S2 with no gallop or murmur. Tachycardic. ABDOMEN: G-tube intact EXTREMITIES: No pitting edema. HUMPHREY FRANCO Aug 02, 2016 18:32
--- NOTE | 2016-08-02 18:35 | Pulmonology Progress Note ---
Assessment/Plan Problems: (1) Hypertension (2) Seizure (3) Sepsis (4) UTI (urinary tract infection) (5) Malfunction of gastrostomy tube (6) [facility] resident (7) cerebral pulsy with advanced mental retardation (8) Schizophrenia Assessment/Plan Assessment/Plan Plan Tight BP and BG control Aspiration precautions Seizure precautions Continue ANTBX Subjective ROS Limited/Unobtainable: Yes Constitutional: Reports: anorexia, fatigue Gastrointestinal/Abdominal: Reports: bloating, constipation, nausea Neurologic: Reports: confusion, weakness Allergies: Coded Allergies: NO KNOWN DRUG ALLERGIES (Unverified Allergy, Unknown, 08/22/15) Objective Last 24 Hour Vital Signs Date Time Temp Pulse Resp B/P Pulse Ox O2 Delivery O2 Flow Rate FiO2 08/02/16 16:13 97.5 84 14 100/63 98 Room Air 08/02/16 12:08 98.0 82 20 99/66 97 Room Air 08/02/16 10:35 80 18 Room Air 21 08/02/16 08:47 98.4 85 20 91/65 97 Room Air 08/02/16 04:00 97.5 92 18 90/57 95 Room Air 08/02/16 00:00 97.2 73 18 96/61 96 Room Air 08/01/16 20:00 97.2 98 20 95/63 94 Room Air 08/01/16 19:00 88 18 Room Air 21 Intake and Output 08/01/16 08/02/16 19:00 07:00 Intake Total 570 ml 660 ml Output Total 350 ml 1300 ml Balance 220 ml -640 ml Free Water 30 ml 120 ml Tube Feeding 540 ml 540 ml Output Urine Total 350 ml 1300 ml # Bowel Movements 1 General Appearance: no acute distress HEENT: normocephalic, atraumatic, PERRL Respiratory/Chest: chest wall non-tender, decreased breath sounds, accessory muscle use, rhonchi Cardiovascular: normal peripheral pulses, normal rate, regular rhythm, no JVD Abdomen: hypoactive bowel sounds, distended, guarding, tender, rebound tenderness, other - dysfunctional feeding tube Genitourinary: normal external genitalia Extremities: no cyanosis Skin: no rash, no lesions Neurologic/Psychiatric: abnormal CN, motor weakness, sensory deficit, disoriented, unresponsiveness, aphasia, depressed affect Laboratory Tests 08/02/16 05:50: White Blood Count 8.6, Red Blood Count 5.49, Hemoglobin 12.5L, Hematocrit 40.1L , Mean Corpuscular Volume 73L, Mean Corpuscular Hemoglobin 22.7L, Mean Corpuscular Hemoglobin Concent 31.1L, Red Cell Distribution Width 12.9, Platelet Count 280, Mean Platelet Volume 8.2, Neutrophils (%) (Auto) 64.1, Lymphocytes (%) (Auto) 23.3, Monocytes (%) (Auto) 9.0, Eosinophils (%) (Auto) 2.9, Basophils (%) (Auto) 0.7, Sodium Level 145, Potassium Level 4.5, Chloride Level 106, Carbon Dioxide Level 28, Anion Gap 11, Blood Urea Nitrogen 23, Creatinine 0.6L, Estimat Glomerular Filtration Rate > 60, Glucose Level 110H, Calcium Level 9.3 Current Medications Medications (Trade) Dose Ordered Sig/Monalisa Route PRN Reason Start Time Stop Time Status Last Admin Dose Admin Acetaminophen (Tylenol) 650 mg Q4H PRN ORAL fever 07/28/16 15:00 08/27/16 14:59 Clotrimazole (Lotrimin) 1 applic THREE TIMES A DAY TOPIC 07/29/16 14:30 08/28/16 14:29 08/02/16 18:04 Finasteride (Proscar) 5 mg DAILY GT 07/29/16 09:00 08/28/16 08:59 08/02/16 08:33 Heparin Sodium (Porcine) (Heparin 5000 units/ml) 5,000 units EVERY 12 HOURS SUBQ 07/28/16 21:00 08/27/16 20:59 08/02/16 08:35 Levetiracetam (Keppra) 1,500 mg Q12HR GT 07/28/16 21:00 08/27/16 20:59 08/02/16 08:34 Lorazepam (Ativan) 1 mg Q6H PRN GT For Anxiety 07/28/16 14:58 08/04/16 14:44 Morphine Sulfate (Morphine Sulfate) 2 mg Q4H PRN IVP Moderate Pain (Pain Scale 4-6) 07/28/16 13:00 08/04/16 12:59 Nitroglycerin (Ntg) 0.4 mg Q5M X 3 DOSES PRN SL Prn Chest Pain 07/28/16 14:15 08/27/16 14:14 Ondansetron HCl (Zofran) 4 mg Q6H PRN IVP Nausea & Vomiting 07/28/16 15:00 08/27/16 14:59 Polyethylene Glycol (Miralax) 17 gm DAILYPRN PRN GT Constipation 07/28/16 15:00 08/27/16 14:59 Risperidone (RisperDAL) 1 mg BID ORAL 07/28/16 18:00 08/27/16 17:59 08/02/16 18:03 Temazepam (Restoril) 15 mg HSPRN PRN GT Insomnia 07/28/16 15:00 08/04/16 14:59 Valproic Acid (Depakene) 500 mg EVERY 12 HOURS GT 07/28/16 21:00 08/27/16 20:59 08/02/16 08:33 Vancomycin HCl (Vancomycin) 125 mg Q6H GT 07/29/16 20:00 08/05/16 19:59 08/02/16 18:03 NEEL LUJAN Aug 02, 2016 18:35
[2016-08-02 20:00] VITALS: BP 107/67
[2016-08-03] VITALS: BP 105/66
[2016-08-03] MEDS: Vancomycin oral 125mg/2.5ml GT SCH ×4 (02:08→20:45)
[2016-08-03 04:00] VITALS: BP 93/59
[2016-08-03 08:00] VITALS: BP 90/61
[2016-08-03] MEDS: Valproic Acid 250mg/5ml Liquid GT SCH ×2 (08:58→20:45)
[2016-08-03] MEDS: Heparin 5000 units/ml inj SUBQ SCH ×2 (09:05→21:00)
--- NOTE | 2016-08-03 09:21 | Pulmonology Progress Note ---
Assessment/Plan Assessment/Plan ASSESSMENT sepsis ST 2 to sepsis and dehydration C dif colitis dehydration dysphagia, G tub malfunctioning G tube, s/p replacement seizure disorder cerebral palsy with advanced mental retardation anemia PLAN OF CARE [facility] floor tachycardia resolved off IVF abx, ID follows Vanco po x 2 weeks sputum cx + Pseudomonas- colonized as per ID CXR negative O2 HHN prn urine cx and blood cx negative s/p IVF strict aspiration precautions, GT feeding, monitor tolerance, site care secure precautions, continue Depakote and Keppra DVT prophylaxis monitor HH, at baseline, stool OB negative dc plan as per pMD case discussed and evaluated by supervising physician Subjective Allergies: Coded Allergies: NO KNOWN DRUG ALLERGIES (Unverified Allergy, Unknown, 08/22/15) Subjective afebrile, no leukocytosis, no signs of respiratory distress diarrhea diminished Objective Last 24 Hour Vital Signs Date Time Temp Pulse Resp B/P Pulse Ox O2 Delivery O2 Flow Rate FiO2 08/03/16 04:00 97.2 88 18 93/59 95 Room Air 08/03/16 00:00 97.7 95 17 105/66 95 Room Air 08/02/16 20:00 97.0 96 14 107/67 98 Room Air 08/02/16 19:00 83 16 Room Air 21 08/02/16 16:13 97.5 84 14 100/63 98 Room Air 08/02/16 12:08 98.0 82 20 99/66 97 Room Air 08/02/16 10:35 80 18 Room Air 21 Intake and Output 08/02/16 08/03/16 18:59 06:59 Intake Total 700 ml 700 ml Output Total 400 ml 375 ml Balance 300 ml 325 ml Free Water 160 ml 160 ml Tube Feeding 540 ml 540 ml Output Urine Total 400 ml 375 ml # Bowel Movements 2 2 General Appearance: no acute distress, cachetic, other - bedridden, nonverbal, chronically ill looking HEENT: normocephalic, atraumatic, anicteric, no JVD Respiratory/Chest: no respiratory distress, no accessory muscle use, decreased breath sounds Cardiovascular: normal rate, regularly irregular Abdomen: normal bowel sounds, soft, non tender, non distended, other - G tube Genitourinary: normal external genitalia Extremities: no edema Neurologic/Psychiatric: abnormal gait - bedridden , other - contracted LE, bedridden, nonverbal Musculoskeletal: atrophy - BLE, Current Medications Medications (Trade) Dose Ordered Sig/Monalisa Route PRN Reason Start Time Stop Time Status Last Admin Dose Admin Acetaminophen (Tylenol) 650 mg Q4H PRN ORAL fever 07/28/16 15:00 08/27/16 14:59 Clotrimazole (Lotrimin) 1 applic THREE TIMES A DAY TOPIC 07/29/16 14:30 08/28/16 14:29 08/02/16 18:04 Finasteride (Proscar) 5 mg DAILY GT 07/29/16 09:00 08/28/16 08:59 08/03/16 08:58 Heparin Sodium (Porcine) (Heparin 5000 units/ml) 5,000 units EVERY 12 HOURS SUBQ 07/28/16 21:00 08/27/16 20:59 08/03/16 09:05 Levetiracetam (Keppra) 1,500 mg Q12HR GT 07/28/16 21:00 08/27/16 20:59 08/02/16 22:32 Lorazepam (Ativan) 1 mg Q6H PRN GT For Anxiety 07/28/16 14:58 08/04/16 14:44 Morphine Sulfate (Morphine Sulfate) 2 mg Q4H PRN IVP Moderate Pain (Pain Scale 4-6) 07/28/16 13:00 08/04/16 12:59 Nitroglycerin (Ntg) 0.4 mg Q5M X 3 DOSES PRN SL Prn Chest Pain 07/28/16 14:15 08/27/16 14:14 Ondansetron HCl (Zofran) 4 mg Q6H PRN IVP Nausea & Vomiting 07/28/16 15:00 08/27/16 14:59 Polyethylene Glycol (Miralax) 17 gm DAILYPRN PRN GT Constipation 07/28/16 15:00 08/27/16 14:59 Risperidone (RisperDAL) 1 mg BID ORAL 07/28/16 18:00 08/27/16 17:59 08/02/16 18:03 Temazepam (Restoril) 15 mg HSPRN PRN GT Insomnia 07/28/16 15:00 08/04/16 14:59 Valproic Acid (Depakene) 500 mg EVERY 12 HOURS GT 07/28/16 21:00 08/27/16 20:59 08/03/16 08:58 Vancomycin HCl (Vancomycin) 125 mg Q6H GT 07/29/16 20:00 08/05/16 19:59 08/03/16 08:58 Thang (Mitch)Lia NP Aug 03, 2016 09:21
--- NOTE | 2016-08-03 10:00 | Cardiac Electrophysiology PN ---
Assessment/Plan Assessment/Plan 1. Sinus Tachycardia due to sepsis and dehydration.Resolved 2. Gastrostomy tube malfunction. GT intact 3. Cerebral palsy. 4. Seizure disorder. 5. Schizophrenia. 6. C. diff on GT Bárbara METCALF RN Subjective Subjective Nonverbal.Comfortable with no cardiac events overnight on GT feeding. Objective Last 24 Hour Vital Signs Date Time Temp Pulse Resp B/P Pulse Ox O2 Delivery O2 Flow Rate FiO2 08/03/16 08:00 96.8 86 16 90/61 95 Room Air 08/03/16 04:00 97.2 88 18 93/59 95 Room Air 08/03/16 00:00 97.7 95 17 105/66 95 Room Air 08/02/16 20:00 97.0 96 14 107/67 98 Room Air 08/02/16 19:00 83 16 Room Air 21 08/02/16 16:13 97.5 84 14 100/63 98 Room Air 08/02/16 12:08 98.0 82 20 99/66 97 Room Air 08/02/16 10:35 80 18 Room Air 21 Intake and Output 08/02/16 08/03/16 19:00 07:00 Intake Total 700 ml 655 ml Output Total 400 ml 375 ml Balance 300 ml 280 ml Free Water 160 ml 160 ml Tube Feeding 540 ml 495 ml Output Urine Total 400 ml 375 ml # Bowel Movements 2 2 Labs Test 08/02/16 05:50 White Blood Count 8.6 K/UL (4.8-10.8) Red Blood Count 5.49 M/UL (4.70-6.10) Hemoglobin 12.5 G/DL (14.2-18.0) Hematocrit 40.1 % (42.0-52.0) Mean Corpuscular Volume 73 FL (80-99) Mean Corpuscular Hemoglobin 22.7 PG (27.0-31.0) Mean Corpuscular Hemoglobin Concent 31.1 G/DL (32.0-36.0) Red Cell Distribution Width 12.9 % (11.6-14.8) Platelet Count 280 K/UL (150-450) Mean Platelet Volume 8.2 FL (6.5-10.1) Neutrophils (%) (Auto) 64.1 % (45.0-75.0) Lymphocytes (%) (Auto) 23.3 % (20.0-45.0) Monocytes (%) (Auto) 9.0 % (1.0-10.0) Eosinophils (%) (Auto) 2.9 % (0.0-3.0) Basophils (%) (Auto) 0.7 % (0.0-2.0) Sodium Level 145 mEQ/L (135-145) Potassium Level 4.5 mEQ/L (3.4-4.9) Chloride Level 106 mEQ/L (98-107) Carbon Dioxide Level 28 mEQ/L (20-30) Anion Gap 11 (5-15) Blood Urea Nitrogen 23 mg/dL (7-23) Creatinine 0.6 mg/dL (0.7-1.2) Estimat Glomerular Filtration Rate > 60 mL/min (>60) Glucose Level 110 mg/dL (74-106) Calcium Level 9.3 mg/dL (8.6-10.2) Current Medications Medications (Trade) Dose Ordered Sig/Monalisa Route PRN Reason Start Time Stop Time Status Last Admin Dose Admin Acetaminophen (Tylenol) 650 mg Q4H PRN ORAL fever 07/28/16 15:00 08/27/16 14:59 Clotrimazole (Lotrimin) 1 applic THREE TIMES A DAY TOPIC 07/29/16 14:30 08/28/16 14:29 08/02/16 18:04 Finasteride (Proscar) 5 mg DAILY GT 07/29/16 09:00 08/28/16 08:59 08/03/16 08:58 Heparin Sodium (Porcine) (Heparin 5000 units/ml) 5,000 units EVERY 12 HOURS SUBQ 07/28/16 21:00 08/27/16 20:59 08/03/16 09:05 Levetiracetam (Keppra) 1,500 mg Q12HR GT 07/28/16 21:00 08/27/16 20:59 08/02/16 22:32 Lorazepam (Ativan) 1 mg Q6H PRN GT For Anxiety 07/28/16 14:58 08/04/16 14:44 Morphine Sulfate (Morphine Sulfate) 2 mg Q4H PRN IVP Moderate Pain (Pain Scale 4-6) 07/28/16 13:00 08/04/16 12:59 Nitroglycerin (Ntg) 0.4 mg Q5M X 3 DOSES PRN SL Prn Chest Pain 07/28/16 14:15 08/27/16 14:14 Ondansetron HCl (Zofran) 4 mg Q6H PRN IVP Nausea & Vomiting 07/28/16 15:00 08/27/16 14:59 Polyethylene Glycol (Miralax) 17 gm DAILYPRN PRN GT Constipation 07/28/16 15:00 08/27/16 14:59 Risperidone (RisperDAL) 1 mg BID ORAL 07/28/16 18:00 08/27/16 17:59 08/02/16 18:03 Temazepam (Restoril) 15 mg HSPRN PRN GT Insomnia 07/28/16 15:00 08/04/16 14:59 Valproic Acid (Depakene) 500 mg EVERY 12 HOURS GT 07/28/16 21:00 08/27/16 20:59 08/03/16 08:58 Vancomycin HCl (Vancomycin) 125 mg Q6H GT 07/29/16 20:00 08/05/16 19:59 08/03/16 08:58 Objective HEAD AND NECK: Shows no JVD. LUNGS: Coarse rhonchi. CARDIOVASCULAR: Irregularly irregular S1 and S2 with no gallop or murmur. Tachycardic. ABDOMEN: G-tube intact EXTREMITIES: No pitting edema. HUMPHREY FRANCO Aug 03, 2016 10:00
[2016-08-03] MEDS: levETIRAcetam 500mg/5ml Liquid GT SCH ×2 (10:55→20:45)
[2016-08-03 12:00] VITALS: BP 95/59
--- NOTE | 2016-08-03 13:14 | GI Progress Note ---
Assessment/Plan Problems: (1) C. difficile colitis ICD Codes: A04.7 - Enterocolitis due to Clostridium difficile SNOMED: 412125311 (2) Malfunction of percutaneous endoscopic gastrostomy (PEG) tube ICD Codes: K94.23 - Gastrostomy malfunction SNOMED: 820298263 (3) Pancytopenia ICD Codes: D61.818 - Other pancytopenia SNOMED: 335613048 Status: stable, unchanged Status Narrative Discussed with Dr. Light. Assessment/Plan Assessment (1) Seizure (2) Schizophrenia (3) Diabetes (4) Hypertension (5) cerebral palsy with advanced mental retardation (6) Malfunction of gastrostomy tube - leakage (7) Anemia (8) C Diff Colitis Recommendations - ok for DC per GI standpoint - Continue TF - GT replaced/site care daily/prn - Iron panel WNL - stool OB negative - Abx for C Diff Subjective Subjective limited Objective Last 24 Hour Vital Signs Date Time Temp Pulse Resp B/P Pulse Ox O2 Delivery O2 Flow Rate FiO2 08/03/16 08:00 96.8 86 16 90/61 95 Room Air 08/03/16 04:00 97.2 88 18 93/59 95 Room Air 08/03/16 00:00 97.7 95 17 105/66 95 Room Air 08/02/16 20:00 97.0 96 14 107/67 98 Room Air 08/02/16 19:00 83 16 Room Air 21 08/02/16 16:13 97.5 84 14 100/63 98 Room Air Intake and Output 08/02/16 08/03/16 19:00 07:00 Intake Total 700 ml 655 ml Output Total 400 ml 375 ml Balance 300 ml 280 ml Free Water 160 ml 160 ml Tube Feeding 540 ml 495 ml Output Urine Total 400 ml 375 ml # Bowel Movements 2 2 Height (Feet): 6 Height (Inches): 1.00 Weight (Pounds): 159 General Appearance: no apparent distress, alert Cardiovascular: normal rate Respiratory/Chest: no respiratory distress Abdominal Exam: site - c/d/i Chery Mcfarland N.P. Aug 03, 2016 13:14
[2016-08-03] MEDS ORDERED: Sterile Water Irrig 1000ml IRRIG ONE (15:19)
[2016-08-03 16:00] VITALS: BP 92/52
--- NOTE | 2016-08-03 16:01 | General Progress Note ---
Assessment/Plan Problem List: (1) Acute lower UTI (2) Seizure disorder, complex partial ICD Codes: G40.209 - Localization-related (focal) (partial) symptomatic epilepsy and epileptic syndromes with complex partial seizures, not intractable , without status epilepticus SNOMED: 537440019 (3) Seizure ICD Codes: R56.9 - Seizure SNOMED: 24637043 (4) Hyperlipidemia ICD Codes: E78.5 - Hyperlipidemia SNOMED: 02736644 (5) Schizophrenia ICD Codes: F20.9 - Schizophrenia, unspecified SNOMED: 93577814 (6) Diabetes ICD Codes: E11.9 - Diabetes SNOMED: 98262633 (7) Sepsis ICD Codes: A41.9 - Sepsis SNOMED: 47788584 Status: progressing Assessment/Plan afebrile vitals stable no wheezing dm htn psych depression reviewed chart and labs Subjective ROS Limited/Unobtainable: Yes Allergies: Coded Allergies: NO KNOWN DRUG ALLERGIES (Unverified Allergy, Unknown, 08/22/15) Objective Last 24 Hour Vital Signs Date Time Temp Pulse Resp B/P Pulse Ox O2 Delivery O2 Flow Rate FiO2 08/03/16 12:00 96.6 15 95/59 96 Room Air 08/03/16 08:00 96.8 86 16 90/61 95 Room Air 08/03/16 04:00 97.2 88 18 93/59 95 Room Air 08/03/16 00:00 97.7 95 17 105/66 95 Room Air 08/02/16 20:00 97.0 96 14 107/67 98 Room Air 08/02/16 19:00 83 16 Room Air 21 08/02/16 16:13 97.5 84 14 100/63 98 Room Air Intake and Output 08/02/16 08/03/16 18:59 06:59 Intake Total 700 ml 700 ml Output Total 400 ml 375 ml Balance 300 ml 325 ml Free Water 160 ml 160 ml Tube Feeding 540 ml 540 ml Output Urine Total 400 ml 375 ml # Bowel Movements 2 2 Height (Feet): 6 Height (Inches): 1.00 Weight (Pounds): 159 EENT: PERRL/EOMI Neck: supple Cardiovascular: normal rate Respiratory/Chest: lungs clear Abdomen: soft Amy Martínez MD Aug 03, 2016 16:01
--- NOTE | 2016-08-03 16:50 | Infectious Diseases Prog Note ---
Assessment/Plan Problems: (1) C. difficile colitis Assessment & Plan: will continue vancomycin orally for two weeks , avoid antibiotics, antacids and Imodium (2) Malfunction of percutaneous endoscopic gastrostomy (PEG) tube Assessment & Plan: S/P replacement, GI is following (3) Diabetes Assessment & Plan: recommend tight glycemic control to keep fasting less than 120, and premeal less than 130 (4) Dermatitis Assessment & Plan: due to bile acid irritation from the G tube site leakage, continue local skin care and G tube care (5) Pseudomonas aeruginosa colonization Assessment & Plan: in the sputum, no evidence of pneumonia, no need for antibiotics therapy Subjective ROS Limited/Unobtainable: Yes Allergies: Coded Allergies: NO KNOWN DRUG ALLERGIES (Unverified Allergy, Unknown, 08/22/15) Subjective he is demented, resting in bed, afebrile, not in distress Objective Vital Signs Last 24 Hour Vital Signs Date Time Temp Pulse Resp B/P Pulse Ox O2 Delivery O2 Flow Rate FiO2 08/03/16 12:00 96.6 15 95/59 96 Room Air 08/03/16 08:00 96.8 86 16 90/61 95 Room Air 08/03/16 04:00 97.2 88 18 93/59 95 Room Air 08/03/16 00:00 97.7 95 17 105/66 95 Room Air 08/02/16 20:00 97.0 96 14 107/67 98 Room Air 08/02/16 19:00 83 16 Room Air 21 Height (Feet): 6 Height (Inches): 1.00 Weight (Pounds): 159 General Appearance: WD/WN, no acute distress HEENT: normocephalic, atraumatic, anicteric Respiratory/Chest: chest wall non-tender, lungs clear, normal breath sounds, no respiratory distress, no accessory muscle use Cardiovascular: normal peripheral pulses, normal rate, regular rhythm Abdomen: normal bowel sounds, soft, non tender, no organomegaly, non distended , no mass Extremities: no cyanosis, no clubbing Skin: no rash, no lesions, no ulcers Current Medications Medications (Trade) Dose Ordered Sig/Monalisa Route PRN Reason Start Time Stop Time Status Last Admin Dose Admin Acetaminophen (Tylenol) 650 mg Q4H PRN ORAL fever 07/28/16 15:00 08/27/16 14:59 Clotrimazole (Lotrimin) 1 applic THREE TIMES A DAY TOPIC 07/29/16 14:30 08/28/16 14:29 08/03/16 12:50 Finasteride (Proscar) 5 mg DAILY GT 07/29/16 09:00 08/28/16 08:59 08/03/16 08:58 Heparin Sodium (Porcine) (Heparin 5000 units/ml) 5,000 units EVERY 12 HOURS SUBQ 07/28/16 21:00 08/27/16 20:59 08/03/16 09:05 Levetiracetam (Keppra) 1,500 mg Q12HR GT 07/28/16 21:00 08/27/16 20:59 08/03/16 10:55 Lorazepam (Ativan) 1 mg Q6H PRN GT For Anxiety 07/28/16 14:58 08/04/16 14:44 Morphine Sulfate (Morphine Sulfate) 2 mg Q4H PRN IVP Moderate Pain (Pain Scale 4-6) 07/28/16 13:00 08/04/16 12:59 Nitroglycerin (Ntg) 0.4 mg Q5M X 3 DOSES PRN SL Prn Chest Pain 07/28/16 14:15 08/27/16 14:14 Ondansetron HCl (Zofran) 4 mg Q6H PRN IVP Nausea & Vomiting 07/28/16 15:00 08/27/16 14:59 Polyethylene Glycol (Miralax) 17 gm DAILYPRN PRN GT Constipation 07/28/16 15:00 08/27/16 14:59 Risperidone (RisperDAL) 1 mg BID ORAL 07/28/16 18:00 08/27/16 17:59 08/03/16 10:55 Temazepam (Restoril) 15 mg HSPRN PRN GT Insomnia 07/28/16 15:00 08/04/16 14:59 Valproic Acid (Depakene) 500 mg EVERY 12 HOURS GT 07/28/16 21:00 08/27/16 20:59 08/03/16 08:58 Vancomycin HCl (Vancomycin) 125 mg Q6H GT 07/29/16 20:00 08/05/16 19:59 08/03/16 12:55 Tavo Ramirez M.D. Aug 03, 2016 16:50
[2016-08-03 20:00] VITALS: BP 99/61
--- NOTE | 2016-08-03 20:08 | Progress Note ---
DATE: 08/02/2016 Psychotherapy Consultation Progress Note CONSULTING PHYSICIAN: Gordo Adams M.D. TREATING ATTENDING: Donaldo Johnson D.O. HISTORY OF PRESENT ILLNESS: The patient is a 60-year-old male. The patient has been very confused and disorganized thoughts in his mood status. The patient has diagnosis of paranoid schizophrenia with acute exacerbation. He has been very helpless, hopeless, depressed and himself. He has poor attention and concentration. Poor insight, judgment, and impulse control. IMPRESSION: This clinician assessed this patient today. Provided the patient with supportive psychotherapy, reality orientation, and monitor the patient's mental status. Continue with medication management and behavioral management. This clinician has reviewed the patient's chart. Discussed the treatment with nursing staff. Gordo Adams PsyD. DR: ADINA JOB#: [id number] CC:
[2016-08-04] VITALS: BP 89/59
--- NOTE | 2016-08-04 01:57 | Progress Note ---
DATE: 08/03/2016 PSYCHOTHERAPY CONSULTATION PROGRESS NOTE TREATING ATTENDING PHYSICIAN: Donaldo Johnson D.O. SUBJECTIVE: The patient is a 60-year-old male. The patient has been very helpless and hopeless, altered mental status, confused and disorganized, irritable during the daytime. . MENTAL STATUS EXAMINATION: Mood is depressed. Affect is blunted. Thought process is disorganized. The patient has poor attention and concentration, poor insight, judgment, and impulse control. PLAN: This clinician assessed the patient. Provided the patient with supportive psychotherapy, reality orientation, and coping skills. Encouraging the patient to participate in treatment. Continue with medication management and behavioral management. This clinician has reviewed the patient's chart and discussed the treatment with nursing staff. Gordo Adams PsyD. DR: Roberta JOB#: [id number] CC:
[2016-08-04] MEDS: Vancomycin oral 125mg/2.5ml GT SCH ×4 (02:57→21:29)
[2016-08-04 04:00] VITALS: BP 92/63
[2016-08-04 07:11] LABS: BASOPHILS % (AUTO) 0.9 % (0.0-2.0); EOSINOPHILS % (AUTO) 3.6 % (0.0-3.0); LYMPHOCYTES % (AUTO) 30.6 % (20.0-45.0); MEAN CORPUSCULAR HEMOGLOBIN 22.9 PG (27.0-31.0); MEAN CORPUSCULAR HGB CONC 32.4 G/DL (32.0-36.0); MEAN CORPUSCULAR VOLUME 71 FL (80-99); MEAN PLATELET VOLUME 9.2 FL (6.5-10.1); MONOCYTES % (AUTO) 10.1 % (1.0-10.0); NEUTROPHILS % (AUTO) 54.8 % (45.0-75.0); PLATELET COUNT 305 K/UL (150-450); RED BLOOD COUNT 5.55 M/UL (4.70-6.10); RED CELL DISTRIBUTION WIDTH 13.5 % (11.6-14.8); WHITE BLOOD COUNT 7.9 K/UL (4.8-10.8)
[2016-08-04 07:18] LABS: ANION GAP 12 (5-15); CALCIUM 9.2 mg/dL (8.6-10.2); CARBON DIOXIDE 28 mEQ/L (20-30); CHLORIDE 104 mEQ/L (98-107); CREATININE 0.6 mg/dL (0.7-1.2); GLOMERULAR FILTRATION RATE > 60 mL/min (>60); HEMOLYSIS 2; POTASSIUM 4.7 mEQ/L (3.4-4.9); SODIUM 144 mEQ/L (135-145)
[2016-08-04] MEDS: levETIRAcetam 500mg/5ml Liquid GT SCH ×2 (08:23→21:29)
[2016-08-04] MEDS: Valproic Acid 250mg/5ml Liquid GT SCH ×2 (08:23→21:28)
[2016-08-04] MEDS: Heparin 5000 units/ml inj SUBQ SCH ×2 (08:28→21:33)
[2016-08-04 08:33] VITALS: BP 97/58
--- NOTE | 2016-08-04 09:10 | Pulmonology Progress Note ---
Assessment/Plan Assessment/Plan ASSESSMENT sepsis ST 2 to sepsis and dehydration C dif colitis dehydration dysphagia, G tub malfunctioning G tube, s/p replacement seizure disorder cerebral palsy with advanced mental retardation anemia PLAN OF CARE MS floor tachycardia resolved off IVF abx, ID follows Vanco po x 2 weeks total sputum cx + Pseudomonas- colonized as per ID CXR negative O2 HHN prn urine cx and blood cx negative s/p IVF strict aspiration precautions, GT feeding, monitor tolerance, site care secure precautions, continue Depakote and Keppra DVT prophylaxis monitor HH, at baseline, stool OB negative dc plan as per pMD case discussed and evaluated by supervising physician Subjective Allergies: Coded Allergies: NO KNOWN DRUG ALLERGIES (Unverified Allergy, Unknown, 08/22/15) Subjective afebrile, no leukocytosis, no signs of respiratory distress diarrhea diminished tachy overall resolved Objective Last 24 Hour Vital Signs Date Time Temp Pulse Resp B/P Pulse Ox O2 Delivery O2 Flow Rate FiO2 08/04/16 08:33 98.2 90 20 97/58 95 Room Air 08/04/16 04:00 97.3 93 19 92/63 93 Room Air 08/04/16 00:00 97.5 102 19 89/59 94 Room Air 08/03/16 20:00 97.8 88 18 99/61 96 Room Air 08/03/16 16:00 97.5 96 18 92/52 95 Room Air 08/03/16 12:00 96.6 15 95/59 96 Room Air Intake and Output 08/03/16 08/04/16 19:00 07:00 Intake Total 790 ml 760 ml Output Total 680 ml 950 ml Balance 110 ml -190 ml Free Water 250 ml 310 ml Tube Feeding 540 ml 450 ml Output Urine Total 680 ml 950 ml # Bowel Movements 2 3 Objective General Appearance: no acute distress, cachetic, bedridden, nonverbal, chronically ill looking HEENT: normocephalic, atraumatic, anicteric, no JVD Respiratory/Chest: no respiratory distress, no accessory muscle use, decreased breath sounds Cardiovascular: normal rate, regularly irregular Abdomen: normal bowel sounds, soft, non tender, non distended, G tube Genitourinary: normal external genitalia Extremities: no edema Neurologic/Psychiatric: abnormal gait - bedridden , contracted LE, bedridden, nonverbal Musculoskeletal: atrophy BLE with contractures Laboratory Tests 08/04/16 05:10: White Blood Count 7.9, Red Blood Count 5.55, Hemoglobin 12.7L, Hematocrit 39.2L , Mean Corpuscular Volume 71L, Mean Corpuscular Hemoglobin 22.9L, Mean Corpuscular Hemoglobin Concent 32.4, Red Cell Distribution Width 13.5, Platelet Count 305, Mean Platelet Volume 9.2, Neutrophils (%) (Auto) 54.8, Lymphocytes (% ) (Auto) 30.6, Monocytes (%) (Auto) 10.1H, Eosinophils (%) (Auto) 3.6H, Basophils (%) (Auto) 0.9, Sodium Level 144, Potassium Level 4.7, Chloride Level 104, Carbon Dioxide Level 28, Anion Gap 12, Blood Urea Nitrogen 29H, Creatinine 0.6L, Estimat Glomerular Filtration Rate > 60, Glucose Level 123H, Calcium Level 9.2 Current Medications Medications (Trade) Dose Ordered Sig/Monalisa Route PRN Reason Start Time Stop Time Status Last Admin Dose Admin Acetaminophen (Tylenol) 650 mg Q4H PRN ORAL fever 07/28/16 15:00 08/27/16 14:59 Clotrimazole (Lotrimin) 1 applic THREE TIMES A DAY TOPIC 07/29/16 14:30 08/28/16 14:29 08/04/16 08:28 Finasteride (Proscar) 5 mg DAILY GT 07/29/16 09:00 08/28/16 08:59 08/04/16 08:23 Heparin Sodium (Porcine) (Heparin 5000 units/ml) 5,000 units EVERY 12 HOURS SUBQ 07/28/16 21:00 08/27/16 20:59 08/04/16 08:28 Levetiracetam (Keppra) 1,500 mg Q12HR GT 07/28/16 21:00 08/27/16 20:59 08/04/16 08:23 Lorazepam (Ativan) 1 mg Q6H PRN GT For Anxiety 07/28/16 14:58 08/04/16 14:44 Morphine Sulfate (Morphine Sulfate) 2 mg Q4H PRN IVP Moderate Pain (Pain Scale 4-6) 07/28/16 13:00 08/04/16 12:59 Nitroglycerin (Ntg) 0.4 mg Q5M X 3 DOSES PRN SL Prn Chest Pain 07/28/16 14:15 08/27/16 14:14 Ondansetron HCl (Zofran) 4 mg Q6H PRN IVP Nausea & Vomiting 07/28/16 15:00 08/27/16 14:59 Polyethylene Glycol (Miralax) 17 gm DAILYPRN PRN GT Constipation 07/28/16 15:00 08/27/16 14:59 Risperidone (RisperDAL) 1 mg BID ORAL 07/28/16 18:00 08/27/16 17:59 08/04/16 08:23 Temazepam (Restoril) 15 mg HSPRN PRN GT Insomnia 07/28/16 15:00 08/04/16 14:59 Valproic Acid (Depakene) 500 mg EVERY 12 HOURS GT 07/28/16 21:00 08/27/16 20:59 08/04/16 08:23 Vancomycin HCl (Vancomycin) 125 mg Q6H GT 07/29/16 20:00 08/05/16 19:59 08/04/16 08:23 Thang Hernandezhayley)Lia NP Aug 04, 2016 09:10
[2016-08-04] MEDS ORDERED: DuoNeb 0.5-3(2.5)mg/3ml neb HHN PRN (09:15)
[2016-08-04 12:15] VITALS: BP 99/56
--- NOTE | 2016-08-04 12:27 | General Progress Note ---
Assessment/Plan Problem List: (1) Acute lower UTI (2) Seizure disorder, complex partial ICD Codes: G40.209 - Localization-related (focal) (partial) symptomatic epilepsy and epileptic syndromes with complex partial seizures, not intractable , without status epilepticus SNOMED: 408920095 (3) Seizure ICD Codes: R56.9 - Seizure SNOMED: 37858004 (4) Hyperlipidemia ICD Codes: E78.5 - Hyperlipidemia SNOMED: 24775571 (5) Schizophrenia ICD Codes: F20.9 - Schizophrenia, unspecified SNOMED: 98284523 (6) Diabetes ICD Codes: E11.9 - Diabetes SNOMED: 47685649 (7) Sepsis ICD Codes: A41.9 - Sepsis SNOMED: 87849055 Status: progressing Assessment/Plan afebrile vitals stable no wheezing no acute events no wheezing Subjective ROS Limited/Unobtainable: Yes Constitutional: Reports: no symptoms Allergies: Coded Allergies: NO KNOWN DRUG ALLERGIES (Unverified Allergy, Unknown, 08/22/15) Objective Last 24 Hour Vital Signs Date Time Temp Pulse Resp B/P Pulse Ox O2 Delivery O2 Flow Rate FiO2 08/04/16 12:15 98.4 94 20 99/56 96 Room Air 08/04/16 08:33 98.2 90 20 97/58 95 Room Air 08/04/16 04:00 97.3 93 19 92/63 93 Room Air 08/04/16 00:00 97.5 102 19 89/59 94 Room Air 08/03/16 20:00 97.8 88 18 99/61 96 Room Air 08/03/16 16:00 97.5 96 18 92/52 95 Room Air Intake and Output 08/03/16 08/04/16 19:00 07:00 Intake Total 790 ml 835 ml Output Total 680 ml 950 ml Balance 110 ml -115 ml Free Water 250 ml 340 ml Tube Feeding 540 ml 495 ml Output Urine Total 680 ml 950 ml # Bowel Movements 2 3 Laboratory Tests 08/04/16 05:10: White Blood Count 7.9, Red Blood Count 5.55, Hemoglobin 12.7L, Hematocrit 39.2L , Mean Corpuscular Volume 71L, Mean Corpuscular Hemoglobin 22.9L, Mean Corpuscular Hemoglobin Concent 32.4, Red Cell Distribution Width 13.5, Platelet Count 305, Mean Platelet Volume 9.2, Neutrophils (%) (Auto) 54.8, Lymphocytes (% ) (Auto) 30.6, Monocytes (%) (Auto) 10.1H, Eosinophils (%) (Auto) 3.6H, Basophils (%) (Auto) 0.9, Sodium Level 144, Potassium Level 4.7, Chloride Level 104, Carbon Dioxide Level 28, Anion Gap 12, Blood Urea Nitrogen 29H, Creatinine 0.6L, Estimat Glomerular Filtration Rate > 60, Glucose Level 123H, Calcium Level 9.2 Height (Feet): 6 Height (Inches): 1.00 Weight (Pounds): 159 EENT: PERRL/EOMI Neck: supple Cardiovascular: normal rate Abdomen: soft Amy Martínez MD Aug 04, 2016 12:27
[2016-08-04] MEDS ORDERED: Morphine Sulfate 2mg/ml Inj IVP PRN (13:00)
--- NOTE | 2016-08-04 13:24 | Cardiac Electrophysiology PN ---
Assessment/Plan Assessment/Plan 1. Sinus Tachycardia due to sepsis and dehydration.Resolved 2. Gastrostomy tube malfunction. GT intact 3. Cerebral palsy. 4. Seizure disorder. 5. Schizophrenia. 6. C. diff on GT Vanco 7. Placement DW RN Subjective Subjective Nonverbal with no cardiac events overnight on GT feeding. Objective Last 24 Hour Vital Signs Date Time Temp Pulse Resp B/P Pulse Ox O2 Delivery O2 Flow Rate FiO2 08/04/16 12:15 98.4 94 20 99/56 96 Room Air 08/04/16 08:33 98.2 90 20 97/58 95 Room Air 08/04/16 04:00 97.3 93 19 92/63 93 Room Air 08/04/16 00:00 97.5 102 19 89/59 94 Room Air 08/03/16 20:00 97.8 88 18 99/61 96 Room Air 08/03/16 16:00 97.5 96 18 92/52 95 Room Air Intake and Output 08/03/16 08/04/16 19:00 07:00 Intake Total 790 ml 835 ml Output Total 680 ml 950 ml Balance 110 ml -115 ml Free Water 250 ml 340 ml Tube Feeding 540 ml 495 ml Output Urine Total 680 ml 950 ml # Bowel Movements 2 3 Laboratory Tests Test 08/04/16 05:10 White Blood Count 7.9 K/UL (4.8-10.8) Red Blood Count 5.55 M/UL (4.70-6.10) Hemoglobin 12.7 G/DL (14.2-18.0) L Hematocrit 39.2 % (42.0-52.0) L Mean Corpuscular Volume 71 FL (80-99) L Mean Corpuscular Hemoglobin 22.9 PG (27.0-31.0) L Mean Corpuscular Hemoglobin Concent 32.4 G/DL (32.0-36.0) Red Cell Distribution Width 13.5 % (11.6-14.8) Platelet Count 305 K/UL (150-450) Mean Platelet Volume 9.2 FL (6.5-10.1) Neutrophils (%) (Auto) 54.8 % (45.0-75.0) Lymphocytes (%) (Auto) 30.6 % (20.0-45.0) Monocytes (%) (Auto) 10.1 % (1.0-10.0) H Eosinophils (%) (Auto) 3.6 % (0.0-3.0) H Basophils (%) (Auto) 0.9 % (0.0-2.0) Sodium Level 144 mEQ/L (135-145) Potassium Level 4.7 mEQ/L (3.4-4.9) Chloride Level 104 mEQ/L (98-107) Carbon Dioxide Level 28 mEQ/L (20-30) Anion Gap 12 (5-15) Blood Urea Nitrogen 29 mg/dL (7-23) H Creatinine 0.6 mg/dL (0.7-1.2) L Estimat Glomerular Filtration Rate > 60 mL/min (>60) Glucose Level 123 mg/dL (74-106) H Calcium Level 9.2 mg/dL (8.6-10.2) Objective HEAD AND NECK: Shows no JVD. LUNGS: Coarse rhonchi. CARDIOVASCULAR: Irregularly irregular S1 and S2 with no gallop or murmur. Tachycardic. ABDOMEN: G-tube intact EXTREMITIES: No pitting edema. HUMPHREY FRANCO Aug 04, 2016 13:24
[2016-08-04] MEDS ORDERED: LORazepam 1mg tab GT PRN (14:58)
--- NOTE | 2016-08-04 15:19 | Infectious Diseases Prog Note ---
Assessment/Plan Problems: (1) C. difficile colitis Assessment & Plan: will continue vancomycin orally for two weeks , avoid antibiotics, antacids and Imodium (2) Malfunction of percutaneous endoscopic gastrostomy (PEG) tube Assessment & Plan: S/P replacement, GI is following (3) Diabetes Assessment & Plan: recommend tight glycemic control to keep fasting less than 120, and premeal less than 130 (4) Dermatitis Assessment & Plan: due to bile acid irritation from the G tube site leakage, continue local skin care and G tube care (5) Pseudomonas aeruginosa colonization Assessment & Plan: in the sputum, no evidence of pneumonia, no need for antibiotics therapy Subjective ROS Limited/Unobtainable: Yes Allergies: Coded Allergies: NO KNOWN DRUG ALLERGIES (Unverified Allergy, Unknown, 08/22/15) Subjective he is demented, resting in bed, afebrile, not in distress Objective Vital Signs Last 24 Hour Vital Signs Date Time Temp Pulse Resp B/P Pulse Ox O2 Delivery O2 Flow Rate FiO2 08/04/16 12:15 98.4 94 20 99/56 96 Room Air 08/04/16 08:33 98.2 90 20 97/58 95 Room Air 08/04/16 04:00 97.3 93 19 92/63 93 Room Air 08/04/16 00:00 97.5 102 19 89/59 94 Room Air 08/03/16 20:00 97.8 88 18 99/61 96 Room Air 08/03/16 16:00 97.5 96 18 92/52 95 Room Air Height (Feet): 6 Height (Inches): 1.00 Weight (Pounds): 159 General Appearance: WD/WN, no acute distress HEENT: normocephalic, atraumatic, anicteric Respiratory/Chest: chest wall non-tender, lungs clear, normal breath sounds, no respiratory distress, no accessory muscle use Cardiovascular: normal peripheral pulses, normal rate, regular rhythm, no gallop/murmur Abdomen: normal bowel sounds, soft, non tender, no organomegaly, non distended , no mass, other - peg tube site dermatitis Extremities: no cyanosis, no clubbing Skin: no rash, no lesions Laboratory Tests Test 08/04/16 05:10 White Blood Count 7.9 K/UL (4.8-10.8) Red Blood Count 5.55 M/UL (4.70-6.10) Hemoglobin 12.7 G/DL (14.2-18.0) L Hematocrit 39.2 % (42.0-52.0) L Mean Corpuscular Volume 71 FL (80-99) L Mean Corpuscular Hemoglobin 22.9 PG (27.0-31.0) L Mean Corpuscular Hemoglobin Concent 32.4 G/DL (32.0-36.0) Red Cell Distribution Width 13.5 % (11.6-14.8) Platelet Count 305 K/UL (150-450) Mean Platelet Volume 9.2 FL (6.5-10.1) Neutrophils (%) (Auto) 54.8 % (45.0-75.0) Lymphocytes (%) (Auto) 30.6 % (20.0-45.0) Monocytes (%) (Auto) 10.1 % (1.0-10.0) H Eosinophils (%) (Auto) 3.6 % (0.0-3.0) H Basophils (%) (Auto) 0.9 % (0.0-2.0) Sodium Level 144 mEQ/L (135-145) Potassium Level 4.7 mEQ/L (3.4-4.9) Chloride Level 104 mEQ/L (98-107) Carbon Dioxide Level 28 mEQ/L (20-30) Anion Gap 12 (5-15) Blood Urea Nitrogen 29 mg/dL (7-23) H Creatinine 0.6 mg/dL (0.7-1.2) L Estimat Glomerular Filtration Rate > 60 mL/min (>60) Glucose Level 123 mg/dL (74-106) H Calcium Level 9.2 mg/dL (8.6-10.2) Current Medications Medications (Trade) Dose Ordered Sig/Monalisa Route PRN Reason Start Time Stop Time Status Last Admin Dose Admin Acetaminophen (Tylenol) 650 mg Q4H PRN ORAL fever 07/28/16 15:00 08/27/16 14:59 Albuterol/ Ipratropium (DuoNeb 0.5-3(2.5)mg/3ml) 3 ml Q4H PRN HHN Shortness of Breath 08/04/16 09:15 08/09/16 09:14 Clotrimazole (Lotrimin) 1 applic THREE TIMES A DAY TOPIC 07/29/16 14:30 08/28/16 14:29 08/04/16 13:30 Finasteride (Proscar) 5 mg DAILY GT 07/29/16 09:00 08/28/16 08:59 08/04/16 08:23 Heparin Sodium (Porcine) (Heparin 5000 units/ml) 5,000 units EVERY 12 HOURS SUBQ 07/28/16 21:00 08/27/16 20:59 08/04/16 08:28 Levetiracetam (Keppra) 1,500 mg Q12HR GT 07/28/16 21:00 08/27/16 20:59 08/04/16 08:23 Lorazepam (Ativan) 1 mg Q6H PRN GT For Anxiety 08/04/16 14:58 08/10/16 14:58 Morphine Sulfate (Morphine Sulfate) 2 mg Q4H PRN IVP Moderate Pain (Pain Scale 4-6) 08/04/16 13:00 08/11/16 13:00 Nitroglycerin (Ntg) 0.4 mg Q5M X 3 DOSES PRN SL Prn Chest Pain 07/28/16 14:15 08/27/16 14:14 Ondansetron HCl (Zofran) 4 mg Q6H PRN IVP Nausea & Vomiting 07/28/16 15:00 08/27/16 14:59 Polyethylene Glycol (Miralax) 17 gm DAILYPRN PRN GT Constipation 07/28/16 15:00 08/27/16 14:59 Risperidone (RisperDAL) 1 mg BID ORAL 07/28/16 18:00 08/27/16 17:59 08/04/16 08:23 Temazepam (Restoril) 15 mg HSPRN PRN GT Insomnia 08/04/16 09:15 08/11/16 09:15 Valproic Acid (Depakene) 500 mg EVERY 12 HOURS GT 07/28/16 21:00 08/27/16 20:59 08/04/16 08:23 Vancomycin HCl (Vancomycin) 125 mg Q6H GT 07/29/16 20:00 08/05/16 19:59 08/04/16 13:30 Tavo Ramirez M.D. Aug 04, 2016 15:19
[2016-08-04 16:01] VITALS: BP 99/62
[2016-08-04 20:00] VITALS: BP 93/65
[2016-08-05] VITALS: BP 92/58
[2016-08-05] MEDS: Vancomycin oral 125mg/2.5ml GT SCH ×4 (02:21→21:25)
[2016-08-05 04:00] VITALS: BP 96/61
[2016-08-05 08:00] VITALS: BP 94/69
[2016-08-05] MEDS: levETIRAcetam 500mg/5ml Liquid GT SCH ×2 (09:07→21:27)
[2016-08-05] MEDS: Heparin 5000 units/ml inj SUBQ SCH ×2 (09:09→21:26)
[2016-08-05] MEDS: Valproic Acid 250mg/5ml Liquid GT SCH ×2 (09:23→21:27)
--- NOTE | 2016-08-05 10:26 | General Progress Note ---
Assessment/Plan Problem List: (1) Pneumonia ICD Codes: J18.9 - Pneumonia, unspecified organism SNOMED: 555221313 (2) Sepsis ICD Codes: A41.9 - Sepsis, unspecified organism SNOMED: 18967587 (3) Attention to G-tube ICD Codes: Z43.1 - Encounter for attention to gastrostomy SNOMED: 082346291, 557171801 (4) Altered level of consciousness ICD Codes: R40.4 - Transient alteration of awareness SNOMED: 3433893 (5) Seizure disorder, partial, intractable ICD Codes: G40.119 - Seizure disorder, partial, intractable SNOMED: 453026593 Status: stable, progressing, tolerating diet Assessment/Plan o2 pulm tx abx ot pt diet psyc care cbc bmp in am Subjective Constitutional: Reports: weakness Allergies: Coded Allergies: NO KNOWN DRUG ALLERGIES (Unverified Allergy, Unknown, 08/22/15) All Systems: reviewed and negative except above Subjective sleepy calm Objective Last 24 Hour Vital Signs Date Time Temp Pulse Resp B/P Pulse Ox O2 Delivery O2 Flow Rate FiO2 08/05/16 07:56 92 18 Room Air 21 08/05/16 04:00 97.7 91 18 96/61 93 Room Air 08/05/16 00:00 97.9 101 18 92/58 95 Room Air 08/04/16 22:38 100 18 Room Air 08/04/16 20:00 98.1 101 18 93/65 93 Room Air 08/04/16 16:01 98.6 86 20 99/62 96 Room Air 08/04/16 12:15 98.4 94 20 99/56 96 Room Air Intake and Output 08/04/16 08/05/16 19:00 07:00 Intake Total 670 ml 630 ml Output Total 250 ml 700 ml Balance 420 ml -70 ml Free Water 130 ml 90 ml Tube Feeding 540 ml 540 ml Output Urine Total 250 ml 700 ml # Bowel Movements 2 Height (Feet): 6 Height (Inches): 1.00 Weight (Pounds): 159 General Appearance: lethargic, confused EENT: normal ENT inspection Neck: normal alignment Cardiovascular: normal peripheral pulses, normal rate, regular rhythm Respiratory/Chest: chest wall non-tender, lungs clear, normal breath sounds Abdomen: normal bowel sounds, non tender, soft Extremities: normal inspection Edema: no edema noted Arm (L), no edema noted Arm (R), no edema noted Leg (L), no edema noted Leg (R), no edema noted Pedal (L), no edema noted Pedal (R), no edema noted Generalized Neurologic: motor weakness Skin: normal pigmentation, warm/dry TONYA GOOD Aug 05, 2016 10:26
--- NOTE | 2016-08-05 10:31 | Cardiology Report ---
APPROVED REPORT EXAM: Two-dimensional and M-mode echocardiogram with Doppler and color Doppler. INDICATION Congestive Heart Failure M-Mode DIMENSIONS Left Atrium (MM)3.2 (1.6-4.0cm) Aortic Root2.7 (2.0-3.7cm) Aortic Cusp Exc.1.7 (1.5-2.0cm) Technically difficult study due to poor acoustic windows. M-mode measurements not obtainable due to cardiac structure. Normal left ventricular chamber size, systolic function and wall motion. Left ventricular ejection fraction estimated to be 60-65 %. No evidence of left ventricular hypertrophy. No evidence of pericardial fat or effusion. Mild left atrial enlargement. Right cardiac chamber sizes are within normal limits. Focal aortic valve sclerosis with adequate cusp excursion Thickened mitral valve leaflets with normal excursion. Mitral annulus and aortic root calcification. Pulmonic valve not well visualized. Normal tricuspid valve structure. IVC is normal in size with physiologic collapse. A color flow and spectral Doppler study was performed and revealed: No aortic regurgitation. No mitral regurgitation. Left ventricular diastolic dysfunction grade 1. No tricuspid regurgitation. Tricuspid systolic velocities suggests peak right ventricular systolic pressure of 11 mmHg
--- NOTE | 2016-08-05 11:58 | General Progress Note ---
Assessment/Plan Problem List: (1) Seizure disorder, partial, intractable ICD Codes: G40.119 - Seizure disorder, partial, intractable SNOMED: 479979249 (2) Altered level of consciousness ICD Codes: R40.4 - Transient alteration of awareness SNOMED: 1184641 (3) cerebral pulsy with advanced mental retardation (4) Hypertension ICD Codes: I10 - Hypertension SNOMED: 76334644 (5) Diabetes ICD Codes: E11.9 - Diabetes SNOMED: 47871875 Assessment/Plan TF fu labs fu neurology Subjective ROS Limited/Unobtainable: Yes Allergies: Coded Allergies: NO KNOWN DRUG ALLERGIES (Unverified Allergy, Unknown, 08/22/15) All Systems: reviewed and negative except above Objective Last 24 Hour Vital Signs Date Time Temp Pulse Resp B/P Pulse Ox O2 Delivery O2 Flow Rate FiO2 08/05/16 08:00 97.3 96 18 94/69 95 Room Air 08/05/16 07:56 92 18 Room Air 21 08/05/16 04:00 97.7 91 18 96/61 93 Room Air 08/05/16 00:00 97.9 101 18 92/58 95 Room Air 08/04/16 22:38 100 18 Room Air 08/04/16 20:00 98.1 101 18 93/65 93 Room Air 08/04/16 16:01 98.6 86 20 99/62 96 Room Air 08/04/16 12:15 98.4 94 20 99/56 96 Room Air Intake and Output 08/04/16 08/05/16 19:00 07:00 Intake Total 670 ml 630 ml Output Total 250 ml 700 ml Balance 420 ml -70 ml Free Water 130 ml 90 ml Tube Feeding 540 ml 540 ml Output Urine Total 250 ml 700 ml # Bowel Movements 2 Height (Feet): 6 Height (Inches): 1.00 Weight (Pounds): 159 General Appearance: no apparent distress EENT: normal ENT inspection Neck: supple Cardiovascular: normal rate Respiratory/Chest: decreased breath sounds Abdomen: normal bowel sounds, non tender, soft Extremities: non-tender BUTCH ALMAGUER Aug 05, 2016 11:58
[2016-08-05 12:00] VITALS: BP 100/69
--- NOTE | 2016-08-05 13:55 | Wound Nurse Progress Note ---
Wound RN Progress Note Wound Consult Reassessment done on this Pt. GT site with redness looks better from the last time I saw this Pt. Cont same treatment as ordered with Triad cream for GT site. Right heel with DTI no skin breakdown noted as well as the toes. will cont the same treatment. will reassess the Pt in a timely manner and as needed for any changes. PAIGE ZIMMERMAN RN Aug 05, 2016 13:55
--- NOTE | 2016-08-05 13:57 | Cardiac Electrophysiology PN ---
Assessment/Plan Assessment/Plan 1. Sinus Tachycardia due to sepsis and dehydration.Resolved 2. Gastrostomy tube malfunction. GT intact 3. Cerebral palsy. 4. Seizure disorder. 5. Schizophrenia. 6. C. diff on GT Vanco 7. Placement DW RN DC planning Subjective Subjective Nonverbal with no events getting GT feeding. Objective Last 24 Hour Vital Signs Date Time Temp Pulse Resp B/P Pulse Ox O2 Delivery O2 Flow Rate FiO2 08/05/16 08:00 97.3 96 18 94/69 95 Room Air 08/05/16 07:56 92 18 Room Air 21 08/05/16 04:00 97.7 91 18 96/61 93 Room Air 08/05/16 00:00 97.9 101 18 92/58 95 Room Air 08/04/16 22:38 100 18 Room Air 08/04/16 20:00 98.1 101 18 93/65 93 Room Air 08/04/16 16:01 98.6 86 20 99/62 96 Room Air Intake and Output 08/04/16 08/05/16 19:00 07:00 Intake Total 670 ml 630 ml Output Total 250 ml 700 ml Balance 420 ml -70 ml Free Water 130 ml 90 ml Tube Feeding 540 ml 540 ml Output Urine Total 250 ml 700 ml # Bowel Movements 2 Labs Test 08/04/16 05:10 White Blood Count 7.9 K/UL (4.8-10.8) Red Blood Count 5.55 M/UL (4.70-6.10) Hemoglobin 12.7 G/DL (14.2-18.0) Hematocrit 39.2 % (42.0-52.0) Mean Corpuscular Volume 71 FL (80-99) Mean Corpuscular Hemoglobin 22.9 PG (27.0-31.0) Mean Corpuscular Hemoglobin Concent 32.4 G/DL (32.0-36.0) Red Cell Distribution Width 13.5 % (11.6-14.8) Platelet Count 305 K/UL (150-450) Mean Platelet Volume 9.2 FL (6.5-10.1) Neutrophils (%) (Auto) 54.8 % (45.0-75.0) Lymphocytes (%) (Auto) 30.6 % (20.0-45.0) Monocytes (%) (Auto) 10.1 % (1.0-10.0) Eosinophils (%) (Auto) 3.6 % (0.0-3.0) Basophils (%) (Auto) 0.9 % (0.0-2.0) Sodium Level 144 mEQ/L (135-145) Potassium Level 4.7 mEQ/L (3.4-4.9) Chloride Level 104 mEQ/L (98-107) Carbon Dioxide Level 28 mEQ/L (20-30) Anion Gap 12 (5-15) Blood Urea Nitrogen 29 mg/dL (7-23) Creatinine 0.6 mg/dL (0.7-1.2) Estimat Glomerular Filtration Rate > 60 mL/min (>60) Glucose Level 123 mg/dL (74-106) Calcium Level 9.2 mg/dL (8.6-10.2) Objective HEAD AND NECK: Shows no JVD. LUNGS: Coarse rhonchi. CARDIOVASCULAR: Irregularly irregular S1 and S2 with no gallop or murmur. Tachycardic. ABDOMEN: G-tube intact EXTREMITIES: No pitting edema. HUMPHREY FRANCO Aug 05, 2016 13:57
--- NOTE | 2016-08-05 14:02 | Pulmonology Progress Note ---
Assessment/Plan Assessment/Plan ASSESSMENT sepsis ST 2 to sepsis and dehydration C dif colitis dehydration dysphagia, G tub malfunctioning G tube, s/p replacement seizure disorder cerebral palsy with advanced mental retardation anemia PLAN OF CARE MS floor tachycardia resolved off IVF abx, ID follows Vanco po x 2 weeks total sputum cx + Pseudomonas- colonized as per ID CXR negative O2 HHN prn urine cx and blood cx negative strict aspiration precautions, GT feeding, monitor tolerance, site care secure precautions, continue Depakote and Keppra DVT prophylaxis monitor HH, at baseline, stool OB negative dc plan as per PMD case discussed and evaluated by supervising physician Subjective Allergies: Coded Allergies: NO KNOWN DRUG ALLERGIES (Unverified Allergy, Unknown, 08/22/15) Subjective afebrile, no leukocytosis, no signs of respiratory distress diarrhea decreased tachy resolved Objective Last 24 Hour Vital Signs Date Time Temp Pulse Resp B/P Pulse Ox O2 Delivery O2 Flow Rate FiO2 08/05/16 08:00 97.3 96 18 94/69 95 Room Air 08/05/16 07:56 92 18 Room Air 21 08/05/16 04:00 97.7 91 18 96/61 93 Room Air 08/05/16 00:00 97.9 101 18 92/58 95 Room Air 08/04/16 22:38 100 18 Room Air 08/04/16 20:00 98.1 101 18 93/65 93 Room Air 08/04/16 16:01 98.6 86 20 99/62 96 Room Air Intake and Output 08/04/16 08/05/16 19:00 07:00 Intake Total 670 ml 630 ml Output Total 250 ml 700 ml Balance 420 ml -70 ml Free Water 130 ml 90 ml Tube Feeding 540 ml 540 ml Output Urine Total 250 ml 700 ml # Bowel Movements 2 Objective General Appearance: no acute distress, cachetic, bedridden, nonverbal, chronically ill looking HEENT: normocephalic, atraumatic, anicteric, no JVD Respiratory/Chest: no respiratory distress, no accessory muscle use, decreased breath sounds Cardiovascular: normal rate, regularly irregular Abdomen: normal bowel sounds, soft, non tender, non distended, G tube Genitourinary: normal external genitalia Extremities: no edema Neurologic/Psychiatric: abnormal gait - bedridden , contracted LE, bedridden, nonverbal Musculoskeletal: atrophy BLE with contractures Current Medications Medications (Trade) Dose Ordered Sig/Monalisa Route PRN Reason Start Time Stop Time Status Last Admin Dose Admin Acetaminophen (Tylenol) 650 mg Q4H PRN ORAL fever 07/28/16 15:00 08/27/16 14:59 Albuterol/ Ipratropium (DuoNeb 0.5-3(2.5)mg/3ml) 3 ml Q4H PRN HHN Shortness of Breath 08/04/16 09:15 08/09/16 09:14 Clotrimazole (Lotrimin) 1 applic THREE TIMES A DAY TOPIC 07/29/16 14:30 08/28/16 14:29 08/05/16 09:09 Finasteride (Proscar) 5 mg DAILY GT 07/29/16 09:00 08/28/16 08:59 08/05/16 09:07 Heparin Sodium (Porcine) (Heparin 5000 units/ml) 5,000 units EVERY 12 HOURS SUBQ 07/28/16 21:00 08/27/16 20:59 08/05/16 09:09 Levetiracetam (Keppra) 1,500 mg Q12HR GT 07/28/16 21:00 08/27/16 20:59 08/05/16 09:07 Lorazepam (Ativan) 1 mg Q6H PRN GT For Anxiety 08/04/16 14:58 08/10/16 14:58 Morphine Sulfate (Morphine Sulfate) 2 mg Q4H PRN IVP Moderate Pain (Pain Scale 4-6) 08/04/16 13:00 08/11/16 13:00 Nitroglycerin (Ntg) 0.4 mg Q5M X 3 DOSES PRN SL Prn Chest Pain 07/28/16 14:15 08/27/16 14:14 Ondansetron HCl (Zofran) 4 mg Q6H PRN IVP Nausea & Vomiting 07/28/16 15:00 08/27/16 14:59 Polyethylene Glycol (Miralax) 17 gm DAILYPRN PRN GT Constipation 07/28/16 15:00 08/27/16 14:59 Risperidone (RisperDAL) 1 mg BID ORAL 07/28/16 18:00 08/27/16 17:59 08/05/16 09:07 Temazepam (Restoril) 15 mg HSPRN PRN GT Insomnia 08/04/16 09:15 08/11/16 09:15 Valproic Acid (Depakene) 500 mg EVERY 12 HOURS GT 07/28/16 21:00 08/27/16 20:59 08/05/16 09:23 Vancomycin HCl (Vancomycin) 125 mg Q6H GT 07/29/16 20:00 08/12/16 19:59 08/05/16 09:07 Thang Rao)Lia NP Aug 05, 2016 14:02
[2016-08-05 16:00] VITALS: BP 102/64
--- NOTE | 2016-08-05 18:18 | Infectious Diseases Prog Note ---
Assessment/Plan Problems: (1) C. difficile colitis Assessment & Plan: will continue vancomycin orally for two weeks , avoid antibiotics, antacids and Imodium (2) Malfunction of percutaneous endoscopic gastrostomy (PEG) tube Assessment & Plan: S/P replacement, GI is following (3) Diabetes Assessment & Plan: recommend tight glycemic control to keep fasting less than 120, and premeal less than 130 (4) Dermatitis Assessment & Plan: due to bile acid irritation from the G tube site leakage, continue local skin care and G tube care (5) Pseudomonas aeruginosa colonization Assessment & Plan: in the sputum, no evidence of pneumonia, no need for antibiotics therapy Subjective ROS Limited/Unobtainable: Yes Allergies: Coded Allergies: NO KNOWN DRUG ALLERGIES (Unverified Allergy, Unknown, 08/22/15) Subjective he is demented, resting in bed, afebrile, not in distress Objective Vital Signs Last 24 Hour Vital Signs Date Time Temp Pulse Resp B/P Pulse Ox O2 Delivery O2 Flow Rate FiO2 08/05/16 16:00 98.4 110 18 102/64 95 Room Air 08/05/16 12:00 97.7 108 18 100/69 95 Room Air 08/05/16 08:00 97.3 96 18 94/69 95 Room Air 08/05/16 07:56 92 18 Room Air 21 08/05/16 04:00 97.7 91 18 96/61 93 Room Air 08/05/16 00:00 97.9 101 18 92/58 95 Room Air 08/04/16 22:38 100 18 Room Air 08/04/16 20:00 98.1 101 18 93/65 93 Room Air Height (Feet): 6 Height (Inches): 1.00 Weight (Pounds): 159 General Appearance: WD/WN, no acute distress HEENT: normocephalic, atraumatic, anicteric Respiratory/Chest: chest wall non-tender, lungs clear, normal breath sounds, no respiratory distress Cardiovascular: normal peripheral pulses, normal rate, regular rhythm, no gallop/murmur Abdomen: normal bowel sounds, soft, non tender, no organomegaly, non distended , no mass, no scars Extremities: no cyanosis, no clubbing Skin: no rash, no lesions, other - contact dermatitis around the G tube Current Medications Medications (Trade) Dose Ordered Sig/Monalisa Route PRN Reason Start Time Stop Time Status Last Admin Dose Admin Acetaminophen (Tylenol) 650 mg Q4H PRN ORAL fever 07/28/16 15:00 08/27/16 14:59 Albuterol/ Ipratropium (DuoNeb 0.5-3(2.5)mg/3ml) 3 ml Q4H PRN HHN Shortness of Breath 08/04/16 09:15 08/09/16 09:14 Clotrimazole (Lotrimin) 1 applic THREE TIMES A DAY TOPIC 07/29/16 14:30 08/28/16 14:29 08/05/16 14:56 Finasteride (Proscar) 5 mg DAILY GT 07/29/16 09:00 08/28/16 08:59 08/05/16 09:07 Heparin Sodium (Porcine) (Heparin 5000 units/ml) 5,000 units EVERY 12 HOURS SUBQ 07/28/16 21:00 08/27/16 20:59 08/05/16 09:09 Levetiracetam (Keppra) 1,500 mg Q12HR GT 07/28/16 21:00 08/27/16 20:59 08/05/16 09:07 Lorazepam (Ativan) 1 mg Q6H PRN GT For Anxiety 08/04/16 14:58 08/10/16 14:58 Morphine Sulfate (Morphine Sulfate) 2 mg Q4H PRN IVP Moderate Pain (Pain Scale 4-6) 08/04/16 13:00 08/11/16 13:00 Nitroglycerin (Ntg) 0.4 mg Q5M X 3 DOSES PRN SL Prn Chest Pain 07/28/16 14:15 08/27/16 14:14 Ondansetron HCl (Zofran) 4 mg Q6H PRN IVP Nausea & Vomiting 07/28/16 15:00 08/27/16 14:59 Polyethylene Glycol (Miralax) 17 gm DAILYPRN PRN GT Constipation 07/28/16 15:00 08/27/16 14:59 Risperidone (RisperDAL) 1 mg BID ORAL 07/28/16 18:00 08/27/16 17:59 08/05/16 09:07 Temazepam (Restoril) 15 mg HSPRN PRN GT Insomnia 08/04/16 09:15 08/11/16 09:15 Valproic Acid (Depakene) 500 mg EVERY 12 HOURS GT 07/28/16 21:00 08/27/16 20:59 08/05/16 09:23 Vancomycin HCl (Vancomycin) 125 mg Q6H GT 07/29/16 20:00 08/12/16 19:59 08/05/16 15:06 Tavo Ramirez M.D. Aug 05, 2016 18:18
[2016-08-05 20:00] VITALS: BP 103/67
[2016-08-06] VITALS: BP 116/69
[2016-08-06] MEDS: Vancomycin oral 125mg/2.5ml GT SCH ×4 (01:54→19:53)
[2016-08-06 04:00] VITALS: BP 109/73
[2016-08-06 06:31] LABS: BASOPHILS % (AUTO) 0.7 % (0.0-2.0); EOSINOPHILS % (AUTO) 0.8 % (0.0-3.0); LYMPHOCYTES % (AUTO) 15.4 % (20.0-45.0); MEAN CORPUSCULAR HGB CONC 29.9 G/DL (32.0-36.0); MEAN CORPUSCULAR VOLUME 74 FL (80-99); MEAN PLATELET VOLUME 8.3 FL (6.5-10.1); MONOCYTES % (AUTO) 8.5 % (1.0-10.0); NEUTROPHILS % (AUTO) 74.7 % (45.0-75.0); PLATELET COUNT 336 K/UL (150-450); RED BLOOD COUNT 6.01 M/UL (4.70-6.10); RED CELL DISTRIBUTION WIDTH 13.6 % (11.6-14.8); WHITE BLOOD COUNT 13.1 K/UL (4.8-10.8)
[2016-08-06 06:55] LABS: ANION GAP 16 (5-15); CALCIUM 9.4 mg/dL (8.6-10.2); CARBON DIOXIDE 25 mEQ/L (20-30); CHLORIDE 101 mEQ/L (98-107); CREATININE 0.6 mg/dL (0.7-1.2); GLOMERULAR FILTRATION RATE > 60 mL/min (>60); HEMOLYSIS 0; POTASSIUM 4.4 mEQ/L (3.4-4.9); SODIUM 142 mEQ/L (135-145)
[2016-08-06 08:00] VITALS: BP 111/74
[2016-08-06] MEDS: levETIRAcetam 500mg/5ml Liquid GT SCH ×2 (08:34→21:40)
[2016-08-06] MEDS: Valproic Acid 250mg/5ml Liquid GT SCH ×2 (08:35→21:40)
[2016-08-06] MEDS: Heparin 5000 units/ml inj SUBQ SCH ×2 (08:37→21:42)
--- NOTE | 2016-08-06 11:33 | GI Progress Note ---
Assessment/Plan Problems: (1) C. difficile colitis ICD Codes: A04.7 - Enterocolitis due to Clostridium difficile SNOMED: 018048700 (2) Malfunction of percutaneous endoscopic gastrostomy (PEG) tube ICD Codes: K94.23 - Gastrostomy malfunction SNOMED: 789439797 (3) Pancytopenia ICD Codes: D61.818 - Other pancytopenia SNOMED: 910548503 Status: unchanged Status Narrative Discussed with Dr. Light. Assessment/Plan Assessment (1) Seizure (2) Schizophrenia (3) Diabetes (4) Hypertension (5) cerebral palsy with advanced mental retardation (6) Malfunction of gastrostomy tube - leakage (7) Anemia (8) C Diff Colitis Recommendations - ok for DC per GI standpoint - Continue TF - GT replaced/site care daily/prn - Iron panel WNL - stool OB negative - Abx for C Diff Subjective Subjective limited Objective Last 24 Hour Vital Signs Date Time Temp Pulse Resp B/P Pulse Ox O2 Delivery O2 Flow Rate FiO2 08/06/16 08:30 86 18 Room Air 21 08/06/16 08:00 97.9 120 20 111/74 95 Room Air 08/06/16 04:43 99.0 119 08/06/16 04:00 101.5 120 22 109/73 94 Room Air 08/06/16 00:00 99.0 116 20 116/69 94 Room Air 08/05/16 20:05 88 18 Room Air 21 08/05/16 20:00 98.2 102 20 103/67 95 Room Air 08/05/16 18:46 85 08/05/16 16:00 98.4 110 18 102/64 95 Room Air 08/05/16 12:00 97.7 108 18 100/69 95 Room Air Intake and Output 08/05/16 08/06/16 19:00 07:00 Intake Total 300 ml 135 ml Output Total 500 ml 575 ml Balance -200 ml -440 ml Free Water 30 ml Tube Feeding 270 ml 135 ml Output Urine Total 500 ml 575 ml # Bowel Movements 1 Laboratory Tests Test 08/06/16 05:55 White Blood Count 13.1 K/UL (4.8-10.8) H Red Blood Count 6.01 M/UL (4.70-6.10) Hemoglobin 13.2 G/DL (14.2-18.0) L Hematocrit 44.3 % (42.0-52.0) Mean Corpuscular Volume 74 FL (80-99) L Mean Corpuscular Hemoglobin 22.0 PG (27.0-31.0) L Mean Corpuscular Hemoglobin Concent 29.9 G/DL (32.0-36.0) L Red Cell Distribution Width 13.6 % (11.6-14.8) Platelet Count 336 K/UL (150-450) Mean Platelet Volume 8.3 FL (6.5-10.1) Neutrophils (%) (Auto) 74.7 % (45.0-75.0) Lymphocytes (%) (Auto) 15.4 % (20.0-45.0) L Monocytes (%) (Auto) 8.5 % (1.0-10.0) Eosinophils (%) (Auto) 0.8 % (0.0-3.0) Basophils (%) (Auto) 0.7 % (0.0-2.0) Sodium Level 142 mEQ/L (135-145) Potassium Level 4.4 mEQ/L (3.4-4.9) Chloride Level 101 mEQ/L (98-107) Carbon Dioxide Level 25 mEQ/L (20-30) Anion Gap 16 (5-15) H Blood Urea Nitrogen 31 mg/dL (7-23) H Creatinine 0.6 mg/dL (0.7-1.2) L Estimat Glomerular Filtration Rate > 60 mL/min (>60) Glucose Level 155 mg/dL (74-106) H Calcium Level 9.4 mg/dL (8.6-10.2) Height (Feet): 6 Height (Inches): 1.00 Weight (Pounds): 159 General Appearance: alert Cardiovascular: normal rate, tachycardia Respiratory/Chest: no respiratory distress Abdominal Exam: other - [facility] Chery Melgar N.P. Aug 06, 2016 11:33
[2016-08-06 12:00] VITALS: BP 103/64
--- NOTE | 2016-08-06 14:24 | General Progress Note ---
Assessment/Plan Problem List: (1) Pneumonia ICD Codes: J18.9 - Pneumonia, unspecified organism SNOMED: 970769052 (2) Sepsis ICD Codes: A41.9 - Sepsis, unspecified organism SNOMED: 63524558 (3) Attention to G-tube ICD Codes: Z43.1 - Encounter for attention to gastrostomy SNOMED: 278256054, 337533437 (4) Altered level of consciousness ICD Codes: R40.4 - Transient alteration of awareness SNOMED: 7223766 (5) Seizure disorder, partial, intractable ICD Codes: G40.119 - Seizure disorder, partial, intractable SNOMED: 628146380 Status: stable, progressing, tolerating diet Assessment/Plan o2 pulm tx abx ot pt diet psyc care cbc bmp in am Subjective Constitutional: Reports: weakness Allergies: Coded Allergies: NO KNOWN DRUG ALLERGIES (Unverified Allergy, Unknown, 08/22/15) All Systems: reviewed and negative except above Subjective sleepy calm Objective Last 24 Hour Vital Signs Date Time Temp Pulse Resp B/P Pulse Ox O2 Delivery O2 Flow Rate FiO2 08/06/16 12:00 97.9 108 18 103/64 96 Room Air 08/06/16 08:30 86 18 Room Air 21 08/06/16 08:00 97.9 120 20 111/74 95 Room Air 08/06/16 04:43 99.0 119 08/06/16 04:00 101.5 120 22 109/73 94 Room Air 08/06/16 00:00 99.0 116 20 116/69 94 Room Air 08/05/16 20:05 88 18 Room Air 21 08/05/16 20:00 98.2 102 20 103/67 95 Room Air 08/05/16 18:46 85 08/05/16 16:00 98.4 110 18 102/64 95 Room Air Intake and Output 08/05/16 08/06/16 19:00 07:00 Intake Total 300 ml 180 ml Output Total 500 ml 575 ml Balance -200 ml -395 ml Free Water 30 ml Tube Feeding 270 ml 180 ml Output Urine Total 500 ml 575 ml # Bowel Movements 1 Laboratory Tests 08/06/16 05:55: White Blood Count 13.1H, Red Blood Count 6.01, Hemoglobin 13.2L, Hematocrit 44.3 , Mean Corpuscular Volume 74L, Mean Corpuscular Hemoglobin 22.0L, Mean Corpuscular Hemoglobin Concent 29.9L, Red Cell Distribution Width 13.6, Platelet Count 336, Mean Platelet Volume 8.3, Neutrophils (%) (Auto) 74.7, Lymphocytes (%) (Auto) 15.4L, Monocytes (%) (Auto) 8.5, Eosinophils (%) (Auto) 0.8, Basophils (%) (Auto) 0.7, Sodium Level 142, Potassium Level 4.4, Chloride Level 101, Carbon Dioxide Level 25, Anion Gap 16H, Blood Urea Nitrogen 31H, Creatinine 0.6L, Estimat Glomerular Filtration Rate > 60, Glucose Level 155H, Calcium Level 9.4 Height (Feet): 6 Height (Inches): 1.00 Weight (Pounds): 159 General Appearance: lethargic EENT: normal ENT inspection Neck: normal alignment Cardiovascular: normal peripheral pulses, normal rate, regular rhythm Respiratory/Chest: chest wall non-tender, lungs clear, decreased breath sounds Abdomen: normal bowel sounds, non tender, soft Extremities: normal inspection Edema: no edema noted Arm (L), no edema noted Arm (R), no edema noted Leg (L), no edema noted Leg (R), no edema noted Pedal (L), no edema noted Pedal (R), no edema noted Generalized Neurologic: motor weakness Skin: normal pigmentation, warm/dry TONYA GOOD Aug 06, 2016 14:24
[2016-08-06 16:00] VITALS: BP 96/68
[2016-08-06] MEDS ORDERED: Amikacin Rx to dose MISC PRN (17:00)
--- NOTE | 2016-08-06 17:02 | Infectious Diseases Prog Note ---
Assessment/Plan Problems: (1) Sepsis Assessment & Plan: with fever and leukocytosis, will start amikacin to cover for possible pseudomonas aeruginosa pneumonia and vancomycin empirically for now , check CXR, and send blood culture (2) C. difficile colitis Assessment & Plan: will continue vancomycin orally for two weeks , avoid antibiotics, antacids and Imodium (3) Malfunction of percutaneous endoscopic gastrostomy (PEG) tube Assessment & Plan: S/P replacement, GI is following (4) Diabetes Assessment & Plan: recommend tight glycemic control to keep fasting less than 120, and premeal less than 130 (5) Dermatitis Assessment & Plan: due to bile acid irritation from the G tube site leakage, continue local skin care and G tube care Subjective ROS Limited/Unobtainable: Yes Allergies: Coded Allergies: NO KNOWN DRUG ALLERGIES (Unverified Allergy, Unknown, 08/22/15) Subjective he is nonverbal, demented, resting in bed, developed fever today , no diarrhea as per nursing staff. Objective Vital Signs Last 24 Hour Vital Signs Date Time Temp Pulse Resp B/P Pulse Ox O2 Delivery O2 Flow Rate FiO2 08/06/16 12:00 97.9 108 18 103/64 96 Room Air 08/06/16 08:30 86 18 Room Air 21 08/06/16 08:00 97.9 120 20 111/74 95 Room Air 08/06/16 04:43 99.0 119 08/06/16 04:00 101.5 120 22 109/73 94 Room Air 08/06/16 00:00 99.0 116 20 116/69 94 Room Air 08/05/16 20:05 88 18 Room Air 21 08/05/16 20:00 98.2 102 20 103/67 95 Room Air 08/05/16 18:46 85 Height (Feet): 6 Height (Inches): 1.00 Weight (Pounds): 159 General Appearance: WD/WN, no acute distress HEENT: normocephalic, atraumatic, anicteric, mucous membranes moist Respiratory/Chest: chest wall non-tender, lungs clear, normal breath sounds, no respiratory distress, no accessory muscle use Cardiovascular: normal peripheral pulses, normal rate, regular rhythm, no gallop/murmur Abdomen: normal bowel sounds, soft, non tender, no organomegaly, non distended , no mass, no scars Extremities: no cyanosis, no clubbing Skin: no rash, no lesions Laboratory Tests Test 08/06/16 05:55 White Blood Count 13.1 K/UL (4.8-10.8) H Red Blood Count 6.01 M/UL (4.70-6.10) Hemoglobin 13.2 G/DL (14.2-18.0) L Hematocrit 44.3 % (42.0-52.0) Mean Corpuscular Volume 74 FL (80-99) L Mean Corpuscular Hemoglobin 22.0 PG (27.0-31.0) L Mean Corpuscular Hemoglobin Concent 29.9 G/DL (32.0-36.0) L Red Cell Distribution Width 13.6 % (11.6-14.8) Platelet Count 336 K/UL (150-450) Mean Platelet Volume 8.3 FL (6.5-10.1) Neutrophils (%) (Auto) 74.7 % (45.0-75.0) Lymphocytes (%) (Auto) 15.4 % (20.0-45.0) L Monocytes (%) (Auto) 8.5 % (1.0-10.0) Eosinophils (%) (Auto) 0.8 % (0.0-3.0) Basophils (%) (Auto) 0.7 % (0.0-2.0) Sodium Level 142 mEQ/L (135-145) Potassium Level 4.4 mEQ/L (3.4-4.9) Chloride Level 101 mEQ/L (98-107) Carbon Dioxide Level 25 mEQ/L (20-30) Anion Gap 16 (5-15) H Blood Urea Nitrogen 31 mg/dL (7-23) H Creatinine 0.6 mg/dL (0.7-1.2) L Estimat Glomerular Filtration Rate > 60 mL/min (>60) Glucose Level 155 mg/dL (74-106) H Calcium Level 9.4 mg/dL (8.6-10.2) Current Medications Medications (Trade) Dose Ordered Sig/Monalisa Route PRN Reason Start Time Stop Time Status Last Admin Dose Admin Acetaminophen (Tylenol) 650 mg Q4H PRN ORAL fever 07/28/16 15:00 08/27/16 14:59 Albuterol/ Ipratropium (DuoNeb 0.5-3(2.5)mg/3ml) 3 ml Q4H PRN HHN Shortness of Breath 08/04/16 09:15 08/09/16 09:14 Amikacin Protocol (Amikacin pharmacy to dose) 1 ea DAILY PRN MISC Per rx protocol 08/06/16 17:00 09/05/16 16:59 UNV Clotrimazole (Lotrimin) 1 applic THREE TIMES A DAY TOPIC 07/29/16 14:30 08/28/16 14:29 08/06/16 12:07 Finasteride (Proscar) 5 mg DAILY GT 07/29/16 09:00 08/28/16 08:59 08/06/16 08:39 Heparin Sodium (Porcine) (Heparin 5000 units/ml) 5,000 units EVERY 12 HOURS SUBQ 07/28/16 21:00 08/27/16 20:59 08/06/16 08:37 Levetiracetam (Keppra) 1,500 mg Q12HR GT 07/28/16 21:00 08/27/16 20:59 08/06/16 08:34 Lorazepam (Ativan) 1 mg Q6H PRN GT For Anxiety 08/04/16 14:58 08/10/16 14:58 Morphine Sulfate (Morphine Sulfate) 2 mg Q4H PRN IVP Moderate Pain (Pain Scale 4-6) 08/04/16 13:00 08/11/16 13:00 Nitroglycerin (Ntg) 0.4 mg Q5M X 3 DOSES PRN SL Prn Chest Pain 07/28/16 14:15 08/27/16 14:14 Ondansetron HCl (Zofran) 4 mg Q6H PRN IVP Nausea & Vomiting 07/28/16 15:00 08/27/16 14:59 Polyethylene Glycol (Miralax) 17 gm DAILYPRN PRN GT Constipation 07/28/16 15:00 08/27/16 14:59 Risperidone (RisperDAL) 1 mg BID ORAL 07/28/16 18:00 08/27/16 17:59 08/06/16 08:35 Temazepam (Restoril) 15 mg HSPRN PRN GT Insomnia 08/04/16 09:15 08/11/16 09:15 Valproic Acid (Depakene) 500 mg EVERY 12 HOURS GT 07/28/16 21:00 08/27/16 20:59 08/06/16 08:35 Vancomycin HCl (Vancomycin) 125 mg Q6H GT 07/29/16 20:00 08/12/16 19:59 08/06/16 14:19 Tavo Ramirez M.D. Aug 06, 2016 17:02
--- NOTE | 2016-08-06 17:34 | Pulmonology Progress Note ---
Assessment/Plan Problems: (1) Hypertension (2) Seizure (3) Sepsis (4) UTI (urinary tract infection) (5) Malfunction of gastrostomy tube (6) [facility] resident (7) cerebral pulsy with advanced mental retardation (8) Schizophrenia Assessment/Plan Assessment/Plan Plan Tight BP and BG control Aspiration precautions Seizure precautions Continue ANTBX GI to follow up with resect to repairing feeding tube Subjective ROS Limited/Unobtainable: Yes Constitutional: Reports: anorexia, fatigue Gastrointestinal/Abdominal: Reports: bloating, constipation, nausea Allergies: Coded Allergies: NO KNOWN DRUG ALLERGIES (Unverified Allergy, Unknown, 08/22/15) Objective Last 24 Hour Vital Signs Date Time Temp Pulse Resp B/P Pulse Ox O2 Delivery O2 Flow Rate FiO2 08/06/16 16:00 98.2 103 21 96/68 95 Room Air 08/06/16 12:00 97.9 108 18 103/64 96 Room Air 08/06/16 08:30 86 18 Room Air 21 08/06/16 08:00 97.9 120 20 111/74 95 Room Air 08/06/16 04:43 99.0 119 08/06/16 04:00 101.5 120 22 109/73 94 Room Air 08/06/16 00:00 99.0 116 20 116/69 94 Room Air 08/05/16 20:05 88 18 Room Air 21 08/05/16 20:00 98.2 102 20 103/67 95 Room Air 08/05/16 18:46 85 Intake and Output 08/05/16 08/06/16 19:00 07:00 Intake Total 300 ml 180 ml Output Total 500 ml 575 ml Balance -200 ml -395 ml Free Water 30 ml Tube Feeding 270 ml 180 ml Output Urine Total 500 ml 575 ml # Bowel Movements 1 HEENT: normocephalic, atraumatic, PERRL Respiratory/Chest: chest wall non-tender, normal breath sounds, no respiratory distress Cardiovascular: normal peripheral pulses, normal rate, regular rhythm, no JVD Abdomen: normal bowel sounds, distended, guarding, tender, other - dysfunctional feeding tube Genitourinary: normal external genitalia Extremities: no cyanosis Skin: no rash, no lesions Neurologic/Psychiatric: 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 grossly normal, responsive, disoriented, depressed affect Laboratory Tests 08/06/16 05:55: White Blood Count 13.1H, Red Blood Count 6.01, Hemoglobin 13.2L, Hematocrit 44.3 , Mean Corpuscular Volume 74L, Mean Corpuscular Hemoglobin 22.0L, Mean Corpuscular Hemoglobin Concent 29.9L, Red Cell Distribution Width 13.6, Platelet Count 336, Mean Platelet Volume 8.3, Neutrophils (%) (Auto) 74.7, Lymphocytes (%) (Auto) 15.4L, Monocytes (%) (Auto) 8.5, Eosinophils (%) (Auto) 0.8, Basophils (%) (Auto) 0.7, Sodium Level 142, Potassium Level 4.4, Chloride Level 101, Carbon Dioxide Level 25, Anion Gap 16H, Blood Urea Nitrogen 31H, Creatinine 0.6L, Estimat Glomerular Filtration Rate > 60, Glucose Level 155H, Calcium Level 9.4 Current Medications Medications (Trade) Dose Ordered Sig/Monalisa Route PRN Reason Start Time Stop Time Status Last Admin Dose Admin Acetaminophen (Tylenol) 650 mg Q4H PRN ORAL fever 07/28/16 15:00 08/27/16 14:59 Albuterol/ Ipratropium (DuoNeb 0.5-3(2.5)mg/3ml) 3 ml Q4H PRN HHN Shortness of Breath 08/04/16 09:15 08/09/16 09:14 Amikacin Protocol 1 ea 1 ea DAILY PRN MISC Per rx protocol 08/06/16 17:00 09/05/16 16:59 UNV Clotrimazole (Lotrimin) 1 applic THREE TIMES A DAY TOPIC 07/29/16 14:30 08/28/16 14:29 08/06/16 12:07 Finasteride (Proscar) 5 mg DAILY GT 07/29/16 09:00 08/28/16 08:59 08/06/16 08:39 Heparin Sodium (Porcine) (Heparin 5000 units/ml) 5,000 units EVERY 12 HOURS SUBQ 07/28/16 21:00 08/27/16 20:59 08/06/16 08:37 Levetiracetam (Keppra) 1,500 mg Q12HR GT 07/28/16 21:00 08/27/16 20:59 08/06/16 08:34 Lorazepam (Ativan) 1 mg Q6H PRN GT For Anxiety 08/04/16 14:58 08/10/16 14:58 Morphine Sulfate (Morphine Sulfate) 2 mg Q4H PRN IVP Moderate Pain (Pain Scale 4-6) 08/04/16 13:00 08/11/16 13:00 Nitroglycerin (Ntg) 0.4 mg Q5M X 3 DOSES PRN SL Prn Chest Pain 07/28/16 14:15 08/27/16 14:14 Ondansetron HCl (Zofran) 4 mg Q6H PRN IVP Nausea & Vomiting 07/28/16 15:00 08/27/16 14:59 Polyethylene Glycol (Miralax) 17 gm DAILYPRN PRN GT Constipation 07/28/16 15:00 08/27/16 14:59 Risperidone (RisperDAL) 1 mg BID ORAL 07/28/16 18:00 08/27/16 17:59 08/06/16 08:35 Temazepam (Restoril) 15 mg HSPRN PRN GT Insomnia 08/04/16 09:15 08/11/16 09:15 Valproic Acid (Depakene) 500 mg EVERY 12 HOURS GT 07/28/16 21:00 08/27/16 20:59 08/06/16 08:35 Vancomycin HCl (Vancomycin) 125 mg Q6H GT 07/29/16 20:00 08/12/16 19:59 08/06/16 14:19 Vancomycin HCl/ Dextrose (Vancomycin/D5W 250ml) 250 ml @ 167 mls/hr Q12HR IVPB 08/06/16 17:00 08/11/16 16:59 NEEL HUBER Aug 06, 2016 17:34
[2016-08-06 20:00] VITALS: BP 108/67
[2016-08-07] VITALS (7 sets, daily range): BP systolic 86–135; BP diastolic 52–69
[2016-08-07] MEDS: Vancomycin oral 125mg/2.5ml GT SCH ×4 (01:22→22:33)
[2016-08-07] MEDS: levETIRAcetam 500mg/5ml Liquid GT SCH ×2 (08:08→22:34)
[2016-08-07] MEDS: Valproic Acid 250mg/5ml Liquid GT SCH ×2 (08:10→22:33)
[2016-08-07] MEDS: Heparin 5000 units/ml inj SUBQ SCH ×2 (08:11→22:35)
[2016-08-07 08:37] LABS: EOSINOPHILS % (AUTO) 2.7 % (0.0-3.0); LYMPHOCYTES % (AUTO) 19.7 % (20.0-45.0); MEAN CORPUSCULAR HEMOGLOBIN 21.4 PG (27.0-31.0); MEAN CORPUSCULAR HGB CONC 29.5 G/DL (32.0-36.0); MEAN CORPUSCULAR VOLUME 73 FL (80-99); MONOCYTES % (AUTO) 11.4 % (1.0-10.0); NEUTROPHILS % (AUTO) 65.3 % (45.0-75.0); PLATELET COUNT 356 K/UL (150-450); RED BLOOD COUNT 6.04 M/UL (4.70-6.10); RED CELL DISTRIBUTION WIDTH 13.8 % (11.6-14.8)
[2016-08-07 08:45] LABS: ANION GAP 13 (5-15); CALCIUM 9.4 mg/dL (8.6-10.2); CARBON DIOXIDE 27 mEQ/L (20-30); CHLORIDE 102 mEQ/L (98-107); CREATININE 0.7 mg/dL (0.7-1.2); GLOMERULAR FILTRATION RATE > 60 mL/min (>60); HEMOLYSIS 1; POTASSIUM 4.6 mEQ/L (3.4-4.9); SODIUM 142 mEQ/L (135-145)
--- NOTE | 2016-08-07 11:33 | GI Progress Note ---
Assessment/Plan Problems: (1) C. difficile colitis ICD Codes: A04.7 - Enterocolitis due to Clostridium difficile SNOMED: 471755134 (2) Malfunction of percutaneous endoscopic gastrostomy (PEG) tube ICD Codes: K94.23 - Gastrostomy malfunction SNOMED: 427769064 (3) Pancytopenia ICD Codes: D61.818 - Other pancytopenia SNOMED: 970982344 Status: stable, unchanged Status Narrative Discussed with Dr. Light. Assessment/Plan Assessment (1) Seizure (2) Schizophrenia (3) Diabetes (4) Hypertension (5) cerebral palsy with advanced mental retardation (6) Malfunction of gastrostomy tube - leakage (7) Anemia (8) C Diff Colitis Recommendations - ok for DC per GI standpoint - Continue TF - GT replaced/site care daily/prn - Iron panel WNL - stool OB negative - Abx for C Diff - ordered H2 Subjective Subjective limited Objective Last 24 Hour Vital Signs Date Time Temp Pulse Resp B/P Pulse Ox O2 Delivery O2 Flow Rate FiO2 08/07/16 08:00 97.2 101 18 90/52 94 Room Air 08/07/16 07:56 93 20 Room Air 21 08/07/16 04:00 98.1 104 22 93/60 98 Room Air 08/07/16 00:00 98.1 108 22 105/65 95 Room Air 08/06/16 20:00 98.2 100 20 108/67 96 Room Air 08/06/16 19:30 90 20 Room Air 21 08/06/16 16:00 98.2 103 21 96/68 95 Room Air 08/06/16 12:00 97.9 108 18 103/64 96 Room Air Intake and Output 08/06/16 08/07/16 19:00 07:00 Intake Total 660 ml 526 ml Output Total 300 ml 600 ml Balance 360 ml -74 ml Free Water 120 ml 30 ml IV Total 271 ml Tube Feeding 540 ml 225 ml Output Urine Total 300 ml 600 ml # Bowel Movements 1 Laboratory Tests Test 08/07/16 08:00 White Blood Count 10.0 K/UL (4.8-10.8) Red Blood Count 6.04 M/UL (4.70-6.10) Hemoglobin 12.9 G/DL (14.2-18.0) L Hematocrit 43.9 % (42.0-52.0) Mean Corpuscular Volume 73 FL (80-99) L Mean Corpuscular Hemoglobin 21.4 PG (27.0-31.0) L Mean Corpuscular Hemoglobin Concent 29.5 G/DL (32.0-36.0) L Red Cell Distribution Width 13.8 % (11.6-14.8) Platelet Count 356 K/UL (150-450) Mean Platelet Volume 9.0 FL (6.5-10.1) Neutrophils (%) (Auto) 65.3 % (45.0-75.0) Lymphocytes (%) (Auto) 19.7 % (20.0-45.0) L Monocytes (%) (Auto) 11.4 % (1.0-10.0) H Eosinophils (%) (Auto) 2.7 % (0.0-3.0) Basophils (%) (Auto) 1.0 % (0.0-2.0) Sodium Level 142 mEQ/L (135-145) Potassium Level 4.6 mEQ/L (3.4-4.9) Chloride Level 102 mEQ/L (98-107) Carbon Dioxide Level 27 mEQ/L (20-30) Anion Gap 13 (5-15) Blood Urea Nitrogen 34 mg/dL (7-23) H Creatinine 0.7 mg/dL (0.7-1.2) Estimat Glomerular Filtration Rate > 60 mL/min (>60) Glucose Level 168 mg/dL (74-106) H Calcium Level 9.4 mg/dL (8.6-10.2) Random Amikacin Level 2.5 ug/mL Height (Feet): 6 Height (Inches): 1.00 Weight (Pounds): 159 General Appearance: no apparent distress, alert Cardiovascular: normal rate Respiratory/Chest: normal breath sounds, no respiratory distress Abdominal Exam: site Chery Mcfarland N.P. Aug 07, 2016 11:33
--- NOTE | 2016-08-07 14:33 | General Progress Note ---
Assessment/Plan Problem List: (1) Pneumonia ICD Codes: J18.9 - Pneumonia, unspecified organism SNOMED: 897733951 (2) Sepsis ICD Codes: A41.9 - Sepsis, unspecified organism SNOMED: 81436029 (3) Attention to G-tube ICD Codes: Z43.1 - Encounter for attention to gastrostomy SNOMED: 576307546, 598213051 (4) Altered level of consciousness ICD Codes: R40.4 - Transient alteration of awareness SNOMED: 0897313 (5) Seizure disorder, partial, intractable ICD Codes: G40.119 - Seizure disorder, partial, intractable SNOMED: 003052752 Status: stable, progressing, tolerating diet Assessment/Plan o2 pulm tx abx ot pt diet psyc care dc if clear by pulm and id Subjective Constitutional: Reports: weakness Allergies: Coded Allergies: NO KNOWN DRUG ALLERGIES (Unverified Allergy, Unknown, 08/22/15) All Systems: reviewed and negative except above Subjective sleepy calm Objective Last 24 Hour Vital Signs Date Time Temp Pulse Resp B/P Pulse Ox O2 Delivery O2 Flow Rate FiO2 08/07/16 12:00 97.7 117 18 135/69 95 Room Air 08/07/16 08:00 97.2 101 18 90/52 94 Room Air 08/07/16 07:56 93 20 Room Air 21 08/07/16 04:00 98.1 104 22 93/60 98 Room Air 08/07/16 00:00 98.1 108 22 105/65 95 Room Air 08/06/16 20:00 98.2 100 20 108/67 96 Room Air 08/06/16 19:30 90 20 Room Air 21 08/06/16 16:00 98.2 103 21 96/68 95 Room Air Intake and Output 08/06/16 08/07/16 19:00 07:00 Intake Total 660 ml 526 ml Output Total 300 ml 600 ml Balance 360 ml -74 ml Free Water 120 ml 30 ml IV Total 271 ml Tube Feeding 540 ml 225 ml Output Urine Total 300 ml 600 ml # Bowel Movements 1 Laboratory Tests 08/07/16 08:00: White Blood Count 10.0, Red Blood Count 6.04, Hemoglobin 12.9L, Hematocrit 43.9 , Mean Corpuscular Volume 73L, Mean Corpuscular Hemoglobin 21.4L, Mean Corpuscular Hemoglobin Concent 29.5L, Red Cell Distribution Width 13.8, Platelet Count 356, Mean Platelet Volume 9.0, Neutrophils (%) (Auto) 65.3, Lymphocytes (%) (Auto) 19.7L, Monocytes (%) (Auto) 11.4H, Eosinophils (%) (Auto ) 2.7, Basophils (%) (Auto) 1.0, Sodium Level 142, Potassium Level 4.6, Chloride Level 102, Carbon Dioxide Level 27, Anion Gap 13, Blood Urea Nitrogen 34H, Creatinine 0.7, Estimat Glomerular Filtration Rate > 60, Glucose Level 168H , Calcium Level 9.4, Random Amikacin Level 2.5 Height (Feet): 6 Height (Inches): 1.00 Weight (Pounds): 159 General Appearance: lethargic, confused EENT: normal ENT inspection Neck: normal alignment Cardiovascular: normal peripheral pulses, normal rate, regular rhythm Respiratory/Chest: chest wall non-tender, lungs clear, normal breath sounds Abdomen: normal bowel sounds, non tender, soft Extremities: normal inspection Edema: no edema noted Arm (L), no edema noted Arm (R), no edema noted Leg (L), no edema noted Leg (R), no edema noted Pedal (L), no edema noted Pedal (R), no edema noted Generalized Neurologic: motor weakness Skin: normal pigmentation, warm/dry TONYA GOOD Aug 07, 2016 14:33
[2016-08-07] MEDS ORDERED: VANCOMYCIN HCL125 MG PO (15:28)
[2016-08-07] MEDS ORDERED: VANCOMYCIN1 GM/2502 IVPB (15:29)
[2016-08-07] MEDS ORDERED: AMIKIN500 MG/2 M IM (15:33)
[2016-08-07] MEDS ORDERED: AMIKACIN S500 MG/2 M IJ (15:33)
--- NOTE | 2016-08-07 18:23 | Pulmonology Progress Note ---
Assessment/Plan Problems: (1) Hypertension (2) Seizure (3) Sepsis (4) UTI (urinary tract infection) (5) Malfunction of gastrostomy tube (6) alf resident (7) cerebral pulsy with advanced mental retardation (8) Schizophrenia Assessment/Plan Assessment/Plan Plan Tight BP and BG control Aspiration precautions Seizure precautions Continue ANTBX Subjective ROS Limited/Unobtainable: Yes Constitutional: Reports: anorexia, fatigue Gastrointestinal/Abdominal: Reports: bloating, nausea Neurologic: Reports: confusion, weakness Allergies: Coded Allergies: NO KNOWN DRUG ALLERGIES (Unverified Allergy, Unknown, 08/22/15) Objective Last 24 Hour Vital Signs Date Time Temp Pulse Resp B/P Pulse Ox O2 Delivery O2 Flow Rate FiO2 08/07/16 16:00 97.2 94 20 94/60 94 Room Air 08/07/16 12:00 97.7 117 18 135/69 95 Room Air 08/07/16 08:00 97.2 101 18 90/52 94 Room Air 08/07/16 07:56 93 20 Room Air 21 08/07/16 04:00 98.1 104 22 93/60 98 Room Air 08/07/16 00:00 98.1 108 22 105/65 95 Room Air 08/06/16 20:00 98.2 100 20 108/67 96 Room Air 08/06/16 19:30 90 20 Room Air 21 Intake and Output 08/06/16 08/07/16 19:00 07:00 Intake Total 660 ml 526 ml Output Total 300 ml 600 ml Balance 360 ml -74 ml Free Water 120 ml 30 ml IV Total 271 ml Tube Feeding 540 ml 225 ml Output Urine Total 300 ml 600 ml # Bowel Movements 1 General Appearance: no acute distress HEENT: normocephalic, atraumatic, PERRL Respiratory/Chest: chest wall non-tender, decreased breath sounds, accessory muscle use Cardiovascular: normal peripheral pulses, normal rate, regular rhythm, no JVD Abdomen: normal bowel sounds, absent bowel sounds, distended, rebound tenderness, other - dysfunctional feeding tube Genitourinary: normal external genitalia Extremities: no cyanosis Skin: lesions 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, responsive, disoriented, depressed affect Laboratory Tests 08/07/16 08:00: White Blood Count 10.0, Red Blood Count 6.04, Hemoglobin 12.9L, Hematocrit 43.9 , Mean Corpuscular Volume 73L, Mean Corpuscular Hemoglobin 21.4L, Mean Corpuscular Hemoglobin Concent 29.5L, Red Cell Distribution Width 13.8, Platelet Count 356, Mean Platelet Volume 9.0, Neutrophils (%) (Auto) 65.3, Lymphocytes (%) (Auto) 19.7L, Monocytes (%) (Auto) 11.4H, Eosinophils (%) (Auto ) 2.7, Basophils (%) (Auto) 1.0, Sodium Level 142, Potassium Level 4.6, Chloride Level 102, Carbon Dioxide Level 27, Anion Gap 13, Blood Urea Nitrogen 34H, Creatinine 0.7, Estimat Glomerular Filtration Rate > 60, Glucose Level 168H , Calcium Level 9.4, Random Amikacin Level 2.5 Current Medications Medications (Trade) Dose Ordered Sig/Monalisa Route PRN Reason Start Time Stop Time Status Last Admin Dose Admin Acetaminophen (Tylenol) 650 mg Q4H PRN ORAL fever 07/28/16 15:00 08/27/16 14:59 Albuterol/ Ipratropium (DuoNeb 0.5-3(2.5)mg/3ml) 3 ml Q4H PRN HHN Shortness of Breath 08/04/16 09:15 08/09/16 09:14 Amikacin Protocol 1 ea 1 ea DAILY PRN MISC Per rx protocol 08/06/16 17:00 09/05/16 16:59 Amikacin Sulfate/ Sodium Chloride (Amikin/Sodium Chloride 100ml bag) 104 ml @ 200 mls/hr Q24H IV 08/06/16 20:00 08/13/16 19:59 08/06/16 21:04 Clotrimazole (Lotrimin) 1 applic THREE TIMES A DAY TOPIC 07/29/16 14:30 08/28/16 14:29 08/07/16 17:20 Famotidine (Pepcid I.v.) 20 mg Q12HR IVP 08/07/16 21:00 09/06/16 20:59 Finasteride (Proscar) 5 mg DAILY GT 07/29/16 09:00 08/28/16 08:59 08/07/16 08:07 Heparin Sodium (Porcine) (Heparin 5000 units/ml) 5,000 units EVERY 12 HOURS SUBQ 07/28/16 21:00 08/27/16 20:59 08/07/16 08:11 Levetiracetam (Keppra) 1,500 mg Q12HR GT 07/28/16 21:00 08/27/16 20:59 08/07/16 08:08 Lorazepam (Ativan) 1 mg Q6H PRN GT For Anxiety 08/04/16 14:58 08/10/16 14:58 Morphine Sulfate (Morphine Sulfate) 2 mg Q4H PRN IVP Moderate Pain (Pain Scale 4-6) 08/04/16 13:00 08/11/16 13:00 Nitroglycerin (Ntg) 0.4 mg Q5M X 3 DOSES PRN SL Prn Chest Pain 07/28/16 14:15 08/27/16 14:14 Ondansetron HCl (Zofran) 4 mg Q6H PRN IVP Nausea & Vomiting 07/28/16 15:00 08/27/16 14:59 Polyethylene Glycol (Miralax) 17 gm DAILYPRN PRN GT Constipation 07/28/16 15:00 08/27/16 14:59 Risperidone (RisperDAL) 1 mg BID ORAL 07/28/16 18:00 08/27/16 17:59 08/07/16 17:20 Temazepam (Restoril) 15 mg HSPRN PRN GT Insomnia 08/04/16 09:15 08/11/16 09:15 Valproic Acid (Depakene) 500 mg EVERY 12 HOURS GT 07/28/16 21:00 08/27/16 20:59 08/07/16 08:10 Vancomycin HCl (Vancomycin) 125 mg Q6H GT 07/29/16 20:00 08/12/16 19:59 08/07/16 13:38 Vancomycin HCl 1.25 gm/Dextrose 250 ml @ 167 mls/hr Q12HR IVPB 08/06/16 21:00 08/11/16 20:59 08/07/16 08:13 NEEL LUJAN Aug 07, 2016 18:23
--- NOTE | 2016-08-07 18:28 | Infectious Diseases Prog Note ---
Assessment/Plan Problems: (1) Sepsis Assessment & Plan: with fever and leukocytosis, continue amikacin to cover for possible pseudomonas aeruginosa pneumonia and vancomycin empirically for two weeks , await blood culture . EOT 08/21/16 (2) C. difficile colitis Assessment & Plan: will continue vancomycin orally for two weeks total , avoid antacids and Imodium, EOT 08/12/16 (3) Malfunction of percutaneous endoscopic gastrostomy (PEG) tube Assessment & Plan: S/P replacement, GI is following (4) Diabetes Assessment & Plan: recommend tight glycemic control to keep fasting less than 120, and premeal less than 130 (5) Dermatitis Assessment & Plan: due to bile acid irritation from the G tube site leakage, continue local skin care and G tube care Subjective ROS Limited/Unobtainable: Yes Allergies: Coded Allergies: NO KNOWN DRUG ALLERGIES (Unverified Allergy, Unknown, 08/22/15) Subjective he is nonverbal, demented, resting in bed, developed fever today , no diarrhea as per nursing staff. Objective Vital Signs Last 24 Hour Vital Signs Date Time Temp Pulse Resp B/P Pulse Ox O2 Delivery O2 Flow Rate FiO2 08/07/16 16:00 97.2 94 20 94/60 94 Room Air 08/07/16 12:00 97.7 117 18 135/69 95 Room Air 08/07/16 08:00 97.2 101 18 90/52 94 Room Air 08/07/16 07:56 93 20 Room Air 21 08/07/16 04:00 98.1 104 22 93/60 98 Room Air 08/07/16 00:00 98.1 108 22 105/65 95 Room Air 08/06/16 20:00 98.2 100 20 108/67 96 Room Air 08/06/16 19:30 90 20 Room Air 21 Height (Feet): 6 Height (Inches): 1.00 Weight (Pounds): 159 General Appearance: WD/WN, no acute distress HEENT: normocephalic, atraumatic, anicteric Respiratory/Chest: chest wall non-tender, lungs clear, normal breath sounds, no respiratory distress, no accessory muscle use Cardiovascular: normal peripheral pulses, normal rate, regular rhythm, no gallop/murmur Abdomen: normal bowel sounds, soft, non tender, no organomegaly, non distended , no mass Extremities: no cyanosis, no clubbing Skin: no rash, no lesions Laboratory Tests Test 08/07/16 08:00 White Blood Count 10.0 K/UL (4.8-10.8) Red Blood Count 6.04 M/UL (4.70-6.10) Hemoglobin 12.9 G/DL (14.2-18.0) L Hematocrit 43.9 % (42.0-52.0) Mean Corpuscular Volume 73 FL (80-99) L Mean Corpuscular Hemoglobin 21.4 PG (27.0-31.0) L Mean Corpuscular Hemoglobin Concent 29.5 G/DL (32.0-36.0) L Red Cell Distribution Width 13.8 % (11.6-14.8) Platelet Count 356 K/UL (150-450) Mean Platelet Volume 9.0 FL (6.5-10.1) Neutrophils (%) (Auto) 65.3 % (45.0-75.0) Lymphocytes (%) (Auto) 19.7 % (20.0-45.0) L Monocytes (%) (Auto) 11.4 % (1.0-10.0) H Eosinophils (%) (Auto) 2.7 % (0.0-3.0) Basophils (%) (Auto) 1.0 % (0.0-2.0) Sodium Level 142 mEQ/L (135-145) Potassium Level 4.6 mEQ/L (3.4-4.9) Chloride Level 102 mEQ/L (98-107) Carbon Dioxide Level 27 mEQ/L (20-30) Anion Gap 13 (5-15) Blood Urea Nitrogen 34 mg/dL (7-23) H Creatinine 0.7 mg/dL (0.7-1.2) Estimat Glomerular Filtration Rate > 60 mL/min (>60) Glucose Level 168 mg/dL (74-106) H Calcium Level 9.4 mg/dL (8.6-10.2) Random Amikacin Level 2.5 ug/mL Current Medications Medications (Trade) Dose Ordered Sig/Monalisa Route PRN Reason Start Time Stop Time Status Last Admin Dose Admin Acetaminophen (Tylenol) 650 mg Q4H PRN ORAL fever 07/28/16 15:00 08/27/16 14:59 Albuterol/ Ipratropium (DuoNeb 0.5-3(2.5)mg/3ml) 3 ml Q4H PRN HHN Shortness of Breath 08/04/16 09:15 08/09/16 09:14 Amikacin Protocol 1 ea 1 ea DAILY PRN MISC Per rx protocol 08/06/16 17:00 09/05/16 16:59 Amikacin Sulfate/ Sodium Chloride (Amikin/Sodium Chloride 100ml bag) 104 ml @ 200 mls/hr Q24H IV 08/06/16 20:00 08/13/16 19:59 08/06/16 21:04 Clotrimazole (Lotrimin) 1 applic THREE TIMES A DAY TOPIC 07/29/16 14:30 08/28/16 14:29 08/07/16 17:20 Famotidine (Pepcid I.v.) 20 mg Q12HR IVP 08/07/16 21:00 09/06/16 20:59 Finasteride (Proscar) 5 mg DAILY GT 07/29/16 09:00 08/28/16 08:59 08/07/16 08:07 Heparin Sodium (Porcine) (Heparin 5000 units/ml) 5,000 units EVERY 12 HOURS SUBQ 07/28/16 21:00 08/27/16 20:59 08/07/16 08:11 Levetiracetam (Keppra) 1,500 mg Q12HR GT 07/28/16 21:00 08/27/16 20:59 08/07/16 08:08 Lorazepam (Ativan) 1 mg Q6H PRN GT For Anxiety 08/04/16 14:58 08/10/16 14:58 Morphine Sulfate (Morphine Sulfate) 2 mg Q4H PRN IVP Moderate Pain (Pain Scale 4-6) 08/04/16 13:00 08/11/16 13:00 Nitroglycerin (Ntg) 0.4 mg Q5M X 3 DOSES PRN SL Prn Chest Pain 07/28/16 14:15 08/27/16 14:14 Ondansetron HCl (Zofran) 4 mg Q6H PRN IVP Nausea & Vomiting 07/28/16 15:00 08/27/16 14:59 Polyethylene Glycol (Miralax) 17 gm DAILYPRN PRN GT Constipation 07/28/16 15:00 08/27/16 14:59 Risperidone (RisperDAL) 1 mg BID ORAL 07/28/16 18:00 08/27/16 17:59 08/07/16 17:20 Temazepam (Restoril) 15 mg HSPRN PRN GT Insomnia 08/04/16 09:15 08/11/16 09:15 Valproic Acid (Depakene) 500 mg EVERY 12 HOURS GT 07/28/16 21:00 08/27/16 20:59 08/07/16 08:10 Vancomycin HCl (Vancomycin) 125 mg Q6H GT 07/29/16 20:00 08/12/16 19:59 08/07/16 13:38 Vancomycin HCl 1.25 gm/Dextrose 250 ml @ 167 mls/hr Q12HR IVPB 08/06/16 21:00 08/11/16 20:59 08/07/16 08:13 Tavo Ramirez M.D. Aug 07, 2016 18:28
--- NOTE | 2016-08-07 18:39 | Cardiac Electrophysiology PN ---
Assessment/Plan Assessment/Plan 1. Sinus Tachycardia due to sepsis and dehydration.Resolved 2. Gastrostomy tube malfunction. Resolved 3. Cerebral palsy. 4. Seizure disorder. 5. Schizophrenia. 6. C. diff on GT Vanco 7. Placement DW RN Subjective Subjective Nonverbal with no events seems comfortable Objective Last 24 Hour Vital Signs Date Time Temp Pulse Resp B/P Pulse Ox O2 Delivery O2 Flow Rate FiO2 08/07/16 16:00 97.2 94 20 94/60 94 Room Air 08/07/16 12:00 97.7 117 18 135/69 95 Room Air 08/07/16 08:00 97.2 101 18 90/52 94 Room Air 08/07/16 07:56 93 20 Room Air 21 08/07/16 04:00 98.1 104 22 93/60 98 Room Air 08/07/16 00:00 98.1 108 22 105/65 95 Room Air 08/06/16 20:00 98.2 100 20 108/67 96 Room Air 08/06/16 19:30 90 20 Room Air 21 Intake and Output 08/06/16 08/07/16 19:00 07:00 Intake Total 660 ml 526 ml Output Total 300 ml 600 ml Balance 360 ml -74 ml Free Water 120 ml 30 ml IV Total 271 ml Tube Feeding 540 ml 225 ml Output Urine Total 300 ml 600 ml # Bowel Movements 1 Laboratory Tests Test 08/07/16 08:00 White Blood Count 10.0 K/UL (4.8-10.8) Red Blood Count 6.04 M/UL (4.70-6.10) Hemoglobin 12.9 G/DL (14.2-18.0) L Hematocrit 43.9 % (42.0-52.0) Mean Corpuscular Volume 73 FL (80-99) L Mean Corpuscular Hemoglobin 21.4 PG (27.0-31.0) L Mean Corpuscular Hemoglobin Concent 29.5 G/DL (32.0-36.0) L Red Cell Distribution Width 13.8 % (11.6-14.8) Platelet Count 356 K/UL (150-450) Mean Platelet Volume 9.0 FL (6.5-10.1) Neutrophils (%) (Auto) 65.3 % (45.0-75.0) Lymphocytes (%) (Auto) 19.7 % (20.0-45.0) L Monocytes (%) (Auto) 11.4 % (1.0-10.0) H Eosinophils (%) (Auto) 2.7 % (0.0-3.0) Basophils (%) (Auto) 1.0 % (0.0-2.0) Sodium Level 142 mEQ/L (135-145) Potassium Level 4.6 mEQ/L (3.4-4.9) Chloride Level 102 mEQ/L (98-107) Carbon Dioxide Level 27 mEQ/L (20-30) Anion Gap 13 (5-15) Blood Urea Nitrogen 34 mg/dL (7-23) H Creatinine 0.7 mg/dL (0.7-1.2) Estimat Glomerular Filtration Rate > 60 mL/min (>60) Glucose Level 168 mg/dL (74-106) H Calcium Level 9.4 mg/dL (8.6-10.2) Random Amikacin Level 2.5 ug/mL Objective HEAD AND NECK: Shows no JVD. LUNGS: Coarse rhonchi. CARDIOVASCULAR: Irregularly irregular S1 and S2 with no gallop or murmur. Tachycardic. ABDOMEN: G-tube intact EXTREMITIES: No pitting edema. HUMPHREY FRANCO Aug 07, 2016 18:39
[2016-08-07] MEDS ORDERED: Famotidine 20 MG/ 2ML VIAL IVP SCH (21:00)
[2016-08-08 00:10] VITALS: BP 97/58
[2016-08-08] MEDS: Vancomycin oral 125mg/2.5ml GT SCH ×4 (02:52→18:36)
[2016-08-08 04:00] VITALS: BP 99/58
[2016-08-08] MEDS: Valproic Acid 250mg/5ml Liquid GT SCH ×2 (08:58→21:45)
[2016-08-08] MEDS: levETIRAcetam 500mg/5ml Liquid GT SCH ×2 (08:59→21:46)
[2016-08-08] MEDS: Heparin 5000 units/ml inj SUBQ SCH ×2 (09:02→21:48)
[2016-08-08 09:13] LABS: EOSINOPHILS % (AUTO) 5.2 % (0.0-3.0); LYMPHOCYTES % (AUTO) 22.7 % (20.0-45.0); MEAN CORPUSCULAR HEMOGLOBIN 22.2 PG (27.0-31.0); MEAN CORPUSCULAR HGB CONC 31.4 G/DL (32.0-36.0); MEAN CORPUSCULAR VOLUME 71 FL (80-99); MEAN PLATELET VOLUME 9.1 FL (6.5-10.1); MONOCYTES % (AUTO) 12.2 % (1.0-10.0); NEUTROPHILS % (AUTO) 58.9 % (45.0-75.0); PLATELET COUNT 326 K/UL (150-450); RED BLOOD COUNT 5.52 M/UL (4.70-6.10); RED CELL DISTRIBUTION WIDTH 13.7 % (11.6-14.8); WHITE BLOOD COUNT 8.2 K/UL (4.8-10.8)
[2016-08-08 09:25] LABS: ANION GAP 12 (5-15); CALCIUM 9.2 mg/dL (8.6-10.2); CARBON DIOXIDE 28 mEQ/L (20-30); CHLORIDE 104 mEQ/L (98-107); CREATININE 0.7 mg/dL (0.7-1.2); GLOMERULAR FILTRATION RATE > 60 mL/min (>60); HEMOLYSIS 0; SODIUM 144 mEQ/L (135-145)
--- NOTE | 2016-08-08 10:33 | Cardiac Electrophysiology PN ---
Assessment/Plan Assessment/Plan 1. Sinus Tachycardia due to sepsis and dehydration that resolved 2. Gastrostomy tube malfunction thst resolved 3. Cerebral palsy. 4. Seizure disorder. 5. Schizophrenia. 6. C. diff on GT Vanco 7. Placement issue DW RN Subjective Subjective No new events seems comfortable. RN at bedside. Awaiting placement. Objective Last 24 Hour Vital Signs Date Time Temp Pulse Resp B/P Pulse Ox O2 Delivery O2 Flow Rate FiO2 08/08/16 04:00 97.5 99 20 99/58 97 Room Air 08/08/16 00:10 98.1 101 20 97/58 98 Room Air 08/07/16 20:36 103 18 Room Air 21 08/07/16 19:48 97.7 102 20 108/67 96 Room Air 08/07/16 19:00 97.0 100 20 86/60 94 Room Air 08/07/16 16:00 97.2 94 20 94/60 94 Room Air 08/07/16 12:00 97.7 117 18 135/69 95 Room Air Intake and Output 08/07/16 08/08/16 18:59 06:59 Intake Total 630 ml 830 ml Output Total 300 ml 1000 ml Balance 330 ml -170 ml Free Water 90 ml 90 ml IV Total 200 ml Tube Feeding 540 ml 540 ml Output Urine Total 300 ml 1000 ml # Bowel Movements 1 Laboratory Tests Test 08/08/16 08:25 White Blood Count 8.2 K/UL (4.8-10.8) Red Blood Count 5.52 M/UL (4.70-6.10) Hemoglobin 12.2 G/DL (14.2-18.0) L Hematocrit 38.9 % (42.0-52.0) L Mean Corpuscular Volume 71 FL (80-99) L Mean Corpuscular Hemoglobin 22.2 PG (27.0-31.0) L Mean Corpuscular Hemoglobin Concent 31.4 G/DL (32.0-36.0) L Red Cell Distribution Width 13.7 % (11.6-14.8) Platelet Count 326 K/UL (150-450) Mean Platelet Volume 9.1 FL (6.5-10.1) Neutrophils (%) (Auto) 58.9 % (45.0-75.0) Lymphocytes (%) (Auto) 22.7 % (20.0-45.0) Monocytes (%) (Auto) 12.2 % (1.0-10.0) H Eosinophils (%) (Auto) 5.2 % (0.0-3.0) H Basophils (%) (Auto) 1.0 % (0.0-2.0) Sodium Level 144 mEQ/L (135-145) Potassium Level 4.0 mEQ/L (3.4-4.9) Chloride Level 104 mEQ/L (98-107) Carbon Dioxide Level 28 mEQ/L (20-30) Anion Gap 12 (5-15) Blood Urea Nitrogen 34 mg/dL (7-23) H Creatinine 0.7 mg/dL (0.7-1.2) Estimat Glomerular Filtration Rate > 60 mL/min (>60) Glucose Level 135 mg/dL (74-106) H Calcium Level 9.2 mg/dL (8.6-10.2) Vancomycin Level Trough 11.5 ug/mL (5.0-12.0) Current Medications Medications (Trade) Dose Ordered Sig/Monalisa Route PRN Reason Start Time Stop Time Status Last Admin Dose Admin Acetaminophen (Tylenol) 650 mg Q4H PRN ORAL fever 07/28/16 15:00 08/27/16 14:59 Albuterol/ Ipratropium (DuoNeb 0.5-3(2.5)mg/3ml) 3 ml Q4H PRN HHN Shortness of Breath 08/04/16 09:15 08/09/16 09:14 Amikacin Protocol 1 ea 1 ea DAILY PRN MISC Per rx protocol 08/06/16 17:00 09/05/16 16:59 Amikacin Sulfate/ Sodium Chloride (Amikin/Sodium Chloride 100ml bag) 104 ml @ 200 mls/hr Q24H IV 08/06/16 20:00 08/13/16 19:59 08/07/16 22:10 Clotrimazole (Lotrimin) 1 applic THREE TIMES A DAY TOPIC 07/29/16 14:30 08/28/16 14:29 08/08/16 09:04 Finasteride (Proscar) 5 mg DAILY GT 07/29/16 09:00 08/28/16 08:59 08/08/16 09:03 Heparin Sodium (Porcine) (Heparin 5000 units/ml) 5,000 units EVERY 12 HOURS SUBQ 07/28/16 21:00 08/27/16 20:59 08/08/16 09:02 Levetiracetam (Keppra) 1,500 mg Q12HR GT 07/28/16 21:00 08/27/16 20:59 08/08/16 08:59 Lorazepam (Ativan) 1 mg Q6H PRN GT For Anxiety 08/04/16 14:58 08/10/16 14:58 Morphine Sulfate (Morphine Sulfate) 2 mg Q4H PRN IVP Moderate Pain (Pain Scale 4-6) 08/04/16 13:00 08/11/16 13:00 Nitroglycerin (Ntg) 0.4 mg Q5M X 3 DOSES PRN SL Prn Chest Pain 07/28/16 14:15 08/27/16 14:14 Ondansetron HCl (Zofran) 4 mg Q6H PRN IVP Nausea & Vomiting 07/28/16 15:00 08/27/16 14:59 Polyethylene Glycol (Miralax) 17 gm DAILYPRN PRN GT Constipation 07/28/16 15:00 08/27/16 14:59 Risperidone (RisperDAL) 1 mg BID ORAL 07/28/16 18:00 08/27/16 17:59 08/08/16 08:59 Temazepam (Restoril) 15 mg HSPRN PRN GT Insomnia 08/04/16 09:15 08/11/16 09:15 Valproic Acid (Depakene) 500 mg EVERY 12 HOURS GT 07/28/16 21:00 08/27/16 20:59 08/08/16 08:58 Vancomycin HCl (Vancomycin) 125 mg Q6H GT 07/29/16 20:00 08/12/16 19:59 08/08/16 08:58 Vancomycin HCl 1.25 gm/Dextrose 250 ml @ 167 mls/hr Q12HR IVPB 08/06/16 21:00 08/11/16 20:59 08/08/16 09:00 Microbiology Date/Time Source Procedure Growth Status 08/06/16 21:25 Blood Blood Culture - Preliminary NO GROWTH AFTER 24 HOURS Resulted Objective HEAD AND NECK: Shows no JVD. LUNGS: Coarse rhonchi. CARDIOVASCULAR: Irregularly irregular S1 and S2 with no gallop or murmur. Tachycardic. ABDOMEN: G-tube intact EXTREMITIES: No pitting edema. HUMPHREY FRANCO Aug 08, 2016 10:33
[2016-08-08 12:00] VITALS: BP 102/70
--- NOTE | 2016-08-08 15:23 | General Progress Note ---
Assessment/Plan Problem List: (1) Pneumonia ICD Codes: J18.9 - Pneumonia, unspecified organism SNOMED: 538827014 (2) Sepsis ICD Codes: A41.9 - Sepsis, unspecified organism SNOMED: 37998147 (3) Attention to G-tube ICD Codes: Z43.1 - Encounter for attention to gastrostomy SNOMED: 439866275, 979120120 (4) Altered level of consciousness ICD Codes: R40.4 - Transient alteration of awareness SNOMED: 4963712 (5) Seizure disorder, partial, intractable ICD Codes: G40.119 - Seizure disorder, partial, intractable SNOMED: 349748495 Status: stable, progressing, tolerating diet Assessment/Plan o2 pulm tx abx ot pt diet psyc care dc if clear by pulm and id Subjective Constitutional: Reports: weakness Allergies: Coded Allergies: NO KNOWN DRUG ALLERGIES (Unverified Allergy, Unknown, 08/22/15) All Systems: reviewed and negative except above Subjective sleepy calm Objective Last 24 Hour Vital Signs Date Time Temp Pulse Resp B/P Pulse Ox O2 Delivery O2 Flow Rate FiO2 08/08/16 12:00 98.1 100 21 102/70 97 Room Air 08/08/16 04:00 97.5 99 20 99/58 97 Room Air 08/08/16 00:10 98.1 101 20 97/58 98 Room Air 08/07/16 20:36 103 18 Room Air 21 08/07/16 19:48 97.7 102 20 108/67 96 Room Air 08/07/16 19:00 97.0 100 20 86/60 94 Room Air 08/07/16 16:00 97.2 94 20 94/60 94 Room Air Intake and Output 08/07/16 08/08/16 19:00 07:00 Intake Total 630 ml 785 ml Output Total 300 ml 1000 ml Balance 330 ml -215 ml Free Water 90 ml 90 ml IV Total 200 ml Tube Feeding 540 ml 495 ml Output Urine Total 300 ml 1000 ml # Bowel Movements 1 Laboratory Tests 08/08/16 08:25: White Blood Count 8.2, Red Blood Count 5.52, Hemoglobin 12.2L, Hematocrit 38.9L , Mean Corpuscular Volume 71L, Mean Corpuscular Hemoglobin 22.2L, Mean Corpuscular Hemoglobin Concent 31.4L, Red Cell Distribution Width 13.7, Platelet Count 326, Mean Platelet Volume 9.1, Neutrophils (%) (Auto) 58.9, Lymphocytes (%) (Auto) 22.7, Monocytes (%) (Auto) 12.2H, Eosinophils (%) (Auto) 5.2H, Basophils (%) (Auto) 1.0, Sodium Level 144, Potassium Level 4.0, Chloride Level 104, Carbon Dioxide Level 28, Anion Gap 12, Blood Urea Nitrogen 34H, Creatinine 0.7, Estimat Glomerular Filtration Rate > 60, Glucose Level 135H, Calcium Level 9.2, Vancomycin Level Trough 11.5 Height (Feet): 6 Height (Inches): 1.00 Weight (Pounds): 159 General Appearance: lethargic, confused EENT: normal ENT inspection Neck: normal alignment Cardiovascular: normal peripheral pulses, normal rate, regular rhythm Respiratory/Chest: chest wall non-tender, lungs clear, normal breath sounds Abdomen: normal bowel sounds, non tender, soft Extremities: normal inspection Edema: no edema noted Arm (L), no edema noted Arm (R), no edema noted Leg (L), no edema noted Leg (R), no edema noted Pedal (L), no edema noted Pedal (R), no edema noted Generalized Neurologic: motor weakness Skin: normal pigmentation, warm/dry TONYA GOOD Aug 08, 2016 15:23
[2016-08-08 16:00] VITALS: BP 111/72
--- NOTE | 2016-08-08 16:03 | GI Progress Note ---
Assessment/Plan Problems: (1) C. difficile colitis ICD Codes: A04.7 - Enterocolitis due to Clostridium difficile SNOMED: 797030757 (2) Malfunction of percutaneous endoscopic gastrostomy (PEG) tube ICD Codes: K94.23 - Gastrostomy malfunction SNOMED: 436567832 (3) Pancytopenia ICD Codes: D61.818 - Other pancytopenia SNOMED: 318106699 Status: stable, unchanged Status Narrative Discussed with Dr. Light. Assessment/Plan Assessment (1) Seizure (2) Schizophrenia (3) Diabetes (4) Hypertension (5) cerebral palsy with advanced mental retardation (6) Malfunction of gastrostomy tube - leakage (7) Anemia (8) C Diff Colitis Recommendations - ok for DC per GI standpoint - Continue TF - GT replaced/site care daily/prn - Iron panel WNL - stool OB negative - Abx for C Diff - H2 Subjective Subjective limited Objective Last 24 Hour Vital Signs Date Time Temp Pulse Resp B/P Pulse Ox O2 Delivery O2 Flow Rate FiO2 08/08/16 12:00 98.1 100 21 102/70 97 Room Air 08/08/16 04:00 97.5 99 20 99/58 97 Room Air 08/08/16 00:10 98.1 101 20 97/58 98 Room Air 08/07/16 20:36 103 18 Room Air 21 08/07/16 19:48 97.7 102 20 108/67 96 Room Air 08/07/16 19:00 97.0 100 20 86/60 94 Room Air Intake and Output 08/07/16 08/08/16 19:00 07:00 Intake Total 630 ml 785 ml Output Total 300 ml 1000 ml Balance 330 ml -215 ml Free Water 90 ml 90 ml IV Total 200 ml Tube Feeding 540 ml 495 ml Output Urine Total 300 ml 1000 ml # Bowel Movements 1 Laboratory Tests Test 08/08/16 08:25 White Blood Count 8.2 K/UL (4.8-10.8) Red Blood Count 5.52 M/UL (4.70-6.10) Hemoglobin 12.2 G/DL (14.2-18.0) L Hematocrit 38.9 % (42.0-52.0) L Mean Corpuscular Volume 71 FL (80-99) L Mean Corpuscular Hemoglobin 22.2 PG (27.0-31.0) L Mean Corpuscular Hemoglobin Concent 31.4 G/DL (32.0-36.0) L Red Cell Distribution Width 13.7 % (11.6-14.8) Platelet Count 326 K/UL (150-450) Mean Platelet Volume 9.1 FL (6.5-10.1) Neutrophils (%) (Auto) 58.9 % (45.0-75.0) Lymphocytes (%) (Auto) 22.7 % (20.0-45.0) Monocytes (%) (Auto) 12.2 % (1.0-10.0) H Eosinophils (%) (Auto) 5.2 % (0.0-3.0) H Basophils (%) (Auto) 1.0 % (0.0-2.0) Sodium Level 144 mEQ/L (135-145) Potassium Level 4.0 mEQ/L (3.4-4.9) Chloride Level 104 mEQ/L (98-107) Carbon Dioxide Level 28 mEQ/L (20-30) Anion Gap 12 (5-15) Blood Urea Nitrogen 34 mg/dL (7-23) H Creatinine 0.7 mg/dL (0.7-1.2) Estimat Glomerular Filtration Rate > 60 mL/min (>60) Glucose Level 135 mg/dL (74-106) H Calcium Level 9.2 mg/dL (8.6-10.2) Vancomycin Level Trough 11.5 ug/mL (5.0-12.0) Height (Feet): 6 Height (Inches): 1.00 Weight (Pounds): 159 General Appearance: no apparent distress Cardiovascular: normal rate Respiratory/Chest: no respiratory distress Abdominal Exam: GT site - c/d/i Chery Mcfarland N.P. Aug 08, 2016 16:03
--- NOTE | 2016-08-08 18:38 | Infectious Diseases Prog Note ---
Assessment/Plan Problems: (1) Sepsis Assessment & Plan: continue amikacin to cover for possible pseudomonas aeruginosa pneumonia and vancomycin empirically for two weeks , await final blood culture . EOT 08/21/16 (2) C. difficile colitis Assessment & Plan: will continue vancomycin orally for two weeks total , avoid antacids and Imodium, EOT 08/12/16 (3) Malfunction of percutaneous endoscopic gastrostomy (PEG) tube Assessment & Plan: S/P replacement, GI is following (4) Diabetes Assessment & Plan: recommend tight glycemic control to keep fasting less than 120, and premeal less than 130 (5) Dermatitis Assessment & Plan: due to bile acid irritation from the G tube site leakage, continue local skin care and G tube care Subjective ROS Limited/Unobtainable: Yes Allergies: Coded Allergies: NO KNOWN DRUG ALLERGIES (Unverified Allergy, Unknown, 08/22/15) Subjective he is nonverbal, demented, resting in bed, developed fever today , no diarrhea as per nursing staff. Objective Vital Signs Last 24 Hour Vital Signs Date Time Temp Pulse Resp B/P Pulse Ox O2 Delivery O2 Flow Rate FiO2 08/08/16 16:00 98.2 100 22 111/72 94 Room Air 08/08/16 12:00 98.1 100 21 102/70 97 Room Air 08/08/16 07:25 91 18 Room Air 21 08/08/16 04:00 97.5 99 20 99/58 97 Room Air 08/08/16 00:10 98.1 101 20 97/58 98 Room Air 08/07/16 20:36 103 18 Room Air 21 08/07/16 19:48 97.7 102 20 108/67 96 Room Air 08/07/16 19:00 97.0 100 20 86/60 94 Room Air Height (Feet): 6 Height (Inches): 1.00 Weight (Pounds): 159 General Appearance: WD/WN, no acute distress HEENT: normocephalic, atraumatic, anicteric, mucous membranes moist Respiratory/Chest: normal breath sounds, no respiratory distress, no accessory muscle use, decreased breath sounds Cardiovascular: normal peripheral pulses, normal rate, regular rhythm, no gallop/murmur Abdomen: normal bowel sounds, soft, non tender, no organomegaly, non distended , no mass, no scars Extremities: no cyanosis, no clubbing Skin: no rash, no lesions, other - dermatitis at the tube feeding site Microbiology Date/Time Source Procedure Growth Status 08/06/16 21:25 Blood Blood Culture - Preliminary NO GROWTH AFTER 24 HOURS Resulted Laboratory Tests Test 08/08/16 08:25 White Blood Count 8.2 K/UL (4.8-10.8) Red Blood Count 5.52 M/UL (4.70-6.10) Hemoglobin 12.2 G/DL (14.2-18.0) L Hematocrit 38.9 % (42.0-52.0) L Mean Corpuscular Volume 71 FL (80-99) L Mean Corpuscular Hemoglobin 22.2 PG (27.0-31.0) L Mean Corpuscular Hemoglobin Concent 31.4 G/DL (32.0-36.0) L Red Cell Distribution Width 13.7 % (11.6-14.8) Platelet Count 326 K/UL (150-450) Mean Platelet Volume 9.1 FL (6.5-10.1) Neutrophils (%) (Auto) 58.9 % (45.0-75.0) Lymphocytes (%) (Auto) 22.7 % (20.0-45.0) Monocytes (%) (Auto) 12.2 % (1.0-10.0) H Eosinophils (%) (Auto) 5.2 % (0.0-3.0) H Basophils (%) (Auto) 1.0 % (0.0-2.0) Sodium Level 144 mEQ/L (135-145) Potassium Level 4.0 mEQ/L (3.4-4.9) Chloride Level 104 mEQ/L (98-107) Carbon Dioxide Level 28 mEQ/L (20-30) Anion Gap 12 (5-15) Blood Urea Nitrogen 34 mg/dL (7-23) H Creatinine 0.7 mg/dL (0.7-1.2) Estimat Glomerular Filtration Rate > 60 mL/min (>60) Glucose Level 135 mg/dL (74-106) H Calcium Level 9.2 mg/dL (8.6-10.2) Vancomycin Level Trough 11.5 ug/mL (5.0-12.0) Current Medications Medications (Trade) Dose Ordered Sig/Monalisa Route PRN Reason Start Time Stop Time Status Last Admin Dose Admin Acetaminophen (Tylenol) 650 mg Q4H PRN ORAL fever 07/28/16 15:00 08/27/16 14:59 Albuterol/ Ipratropium (DuoNeb 0.5-3(2.5)mg/3ml) 3 ml Q4H PRN HHN Shortness of Breath 08/04/16 09:15 08/09/16 09:14 Amikacin Protocol 1 ea 1 ea DAILY PRN MISC Per rx protocol 08/06/16 17:00 09/05/16 16:59 Amikacin Sulfate 1000 mg/Sodium Chloride 104 ml @ 200 mls/hr Q24H IV 08/06/16 20:00 08/13/16 19:59 08/07/16 22:10 Clotrimazole (Lotrimin) 1 applic THREE TIMES A DAY TOPIC 07/29/16 14:30 08/28/16 14:29 08/08/16 14:32 Finasteride (Proscar) 5 mg DAILY GT 07/29/16 09:00 08/28/16 08:59 08/08/16 09:03 Heparin Sodium (Porcine) (Heparin 5000 units/ml) 5,000 units EVERY 12 HOURS SUBQ 07/28/16 21:00 08/27/16 20:59 08/08/16 09:02 Levetiracetam (Keppra) 1,500 mg Q12HR GT 07/28/16 21:00 08/27/16 20:59 08/08/16 08:59 Lorazepam (Ativan) 1 mg Q6H PRN GT For Anxiety 08/04/16 14:58 08/10/16 14:58 Morphine Sulfate (Morphine Sulfate) 2 mg Q4H PRN IVP Moderate Pain (Pain Scale 4-6) 08/04/16 13:00 08/11/16 13:00 Nitroglycerin (Ntg) 0.4 mg Q5M X 3 DOSES PRN SL Prn Chest Pain 07/28/16 14:15 08/27/16 14:14 Ondansetron HCl (Zofran) 4 mg Q6H PRN IVP Nausea & Vomiting 07/28/16 15:00 08/27/16 14:59 Polyethylene Glycol (Miralax) 17 gm DAILYPRN PRN GT Constipation 07/28/16 15:00 08/27/16 14:59 Risperidone (RisperDAL) 1 mg BID ORAL 07/28/16 18:00 08/27/16 17:59 08/08/16 08:59 Temazepam (Restoril) 15 mg HSPRN PRN GT Insomnia 08/04/16 09:15 08/11/16 09:15 Valproic Acid (Depakene) 500 mg EVERY 12 HOURS GT 07/28/16 21:00 08/27/16 20:59 08/08/16 08:58 Vancomycin HCl (Vancomycin) 125 mg Q6H GT 07/29/16 20:00 08/12/16 19:59 08/08/16 15:08 Vancomycin HCl/ Dextrose (Vancomycin/D5W 250ml) 300 ml @ 150 mls/hr Q12HR IVPB 08/08/16 21:00 08/13/16 20:59 Tavo Ramirez M.D. Aug 08, 2016 18:38
--- NOTE | 2016-08-08 19:01 | Pulmonology Progress Note ---
Assessment/Plan Problems: (1) Hypertension (2) Seizure (3) Sepsis (4) UTI (urinary tract infection) (5) Malfunction of gastrostomy tube (6) [facility] resident (7) cerebral pulsy with advanced mental retardation (8) Schizophrenia Assessment/Plan Assessment/Plan Plan Tight BP and BG control Aspiration precautions Seizure precautions Continue ANTBX Subjective ROS Limited/Unobtainable: Yes Constitutional: Reports: anorexia, fatigue Neurologic: Reports: confusion, weakness Allergies: Coded Allergies: NO KNOWN DRUG ALLERGIES (Unverified Allergy, Unknown, 08/22/15) Objective Last 24 Hour Vital Signs Date Time Temp Pulse Resp B/P Pulse Ox O2 Delivery O2 Flow Rate FiO2 08/08/16 16:00 98.2 100 22 111/72 94 Room Air 08/08/16 12:00 98.1 100 21 102/70 97 Room Air 08/08/16 07:25 91 18 Room Air 21 08/08/16 04:00 97.5 99 20 99/58 97 Room Air 08/08/16 00:10 98.1 101 20 97/58 98 Room Air 08/07/16 20:36 103 18 Room Air 21 08/07/16 19:48 97.7 102 20 108/67 96 Room Air Intake and Output 08/07/16 08/08/16 19:00 07:00 Intake Total 630 ml 785 ml Output Total 300 ml 1000 ml Balance 330 ml -215 ml Free Water 90 ml 90 ml IV Total 200 ml Tube Feeding 540 ml 495 ml Output Urine Total 300 ml 1000 ml # Bowel Movements 1 General Appearance: no acute distress HEENT: normocephalic, atraumatic, PERRL Respiratory/Chest: chest wall non-tender, chest wall tender, decreased breath sounds, accessory muscle use Cardiovascular: normal peripheral pulses, normal rate, regular rhythm, no JVD Abdomen: hypoactive bowel sounds, absent bowel sounds, distended, guarding, tender, rebound tenderness, other - dysfunctional feeding tube Genitourinary: normal external genitalia Extremities: no cyanosis Skin: no rash, no lesions 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, responsive, disoriented, depressed affect Microbiology Date/Time Source Procedure Growth Status 08/06/16 21:25 Blood Blood Culture - Preliminary NO GROWTH AFTER 24 HOURS Resulted Laboratory Tests 08/08/16 08:25: White Blood Count 8.2, Red Blood Count 5.52, Hemoglobin 12.2L, Hematocrit 38.9L , Mean Corpuscular Volume 71L, Mean Corpuscular Hemoglobin 22.2L, Mean Corpuscular Hemoglobin Concent 31.4L, Red Cell Distribution Width 13.7, Platelet Count 326, Mean Platelet Volume 9.1, Neutrophils (%) (Auto) 58.9, Lymphocytes (%) (Auto) 22.7, Monocytes (%) (Auto) 12.2H, Eosinophils (%) (Auto) 5.2H, Basophils (%) (Auto) 1.0, Sodium Level 144, Potassium Level 4.0, Chloride Level 104, Carbon Dioxide Level 28, Anion Gap 12, Blood Urea Nitrogen 34H, Creatinine 0.7, Estimat Glomerular Filtration Rate > 60, Glucose Level 135H, Calcium Level 9.2, Vancomycin Level Trough 11.5 Current Medications Medications (Trade) Dose Ordered Sig/Monalisa Route PRN Reason Start Time Stop Time Status Last Admin Dose Admin Acetaminophen (Tylenol) 650 mg Q4H PRN ORAL fever 07/28/16 15:00 08/27/16 14:59 Albuterol/ Ipratropium (DuoNeb 0.5-3(2.5)mg/3ml) 3 ml Q4H PRN HHN Shortness of Breath 08/04/16 09:15 08/09/16 09:14 Amikacin Protocol 1 ea 1 ea DAILY PRN MISC Per rx protocol 08/06/16 17:00 09/05/16 16:59 Amikacin Sulfate 1000 mg/Sodium Chloride 104 ml @ 200 mls/hr Q24H IV 08/06/16 20:00 08/13/16 19:59 08/08/16 18:36 Clotrimazole (Lotrimin) 1 applic THREE TIMES A DAY TOPIC 07/29/16 14:30 08/28/16 14:29 08/08/16 18:35 Finasteride (Proscar) 5 mg DAILY GT 07/29/16 09:00 08/28/16 08:59 08/08/16 09:03 Heparin Sodium (Porcine) (Heparin 5000 units/ml) 5,000 units EVERY 12 HOURS SUBQ 07/28/16 21:00 08/27/16 20:59 08/08/16 09:02 Levetiracetam (Keppra) 1,500 mg Q12HR GT 07/28/16 21:00 08/27/16 20:59 08/08/16 08:59 Lorazepam (Ativan) 1 mg Q6H PRN GT For Anxiety 08/04/16 14:58 08/10/16 14:58 Morphine Sulfate (Morphine Sulfate) 2 mg Q4H PRN IVP Moderate Pain (Pain Scale 4-6) 08/04/16 13:00 08/11/16 13:00 Nitroglycerin (Ntg) 0.4 mg Q5M X 3 DOSES PRN SL Prn Chest Pain 07/28/16 14:15 08/27/16 14:14 Ondansetron HCl (Zofran) 4 mg Q6H PRN IVP Nausea & Vomiting 07/28/16 15:00 08/27/16 14:59 Polyethylene Glycol (Miralax) 17 gm DAILYPRN PRN GT Constipation 07/28/16 15:00 08/27/16 14:59 Risperidone (RisperDAL) 1 mg BID ORAL 07/28/16 18:00 08/27/16 17:59 08/08/16 18:35 Temazepam (Restoril) 15 mg HSPRN PRN GT Insomnia 08/04/16 09:15 08/11/16 09:15 Valproic Acid (Depakene) 500 mg EVERY 12 HOURS GT 07/28/16 21:00 08/27/16 20:59 08/08/16 08:58 Vancomycin HCl (Vancomycin) 125 mg Q6H GT 07/29/16 20:00 08/12/16 19:59 08/08/16 18:36 Vancomycin HCl/ Dextrose (Vancomycin/D5W 250ml) 300 ml @ 150 mls/hr Q12HR IVPB 08/08/16 21:00 08/13/16 20:59 NEEL LUJAN Aug 08, 2016 19:01
[2016-08-08 20:00] VITALS: BP 99/68
[2016-08-08] MEDS: Vancomycin 1.5 GM in D5W 300 ML IVPB SCH (21:46)
[2016-08-09] VITALS: BP 109/75
[2016-08-09] MEDS: Vancomycin oral 125mg/2.5ml GT SCH ×4 (02:00→17:53)
[2016-08-09 04:00] VITALS: BP 100/62
[2016-08-09 07:45] LABS: EOSINOPHILS % (AUTO) 4.2 % (0.0-3.0); MEAN CORPUSCULAR HEMOGLOBIN 22.1 PG (27.0-31.0); MEAN CORPUSCULAR HGB CONC 31.4 G/DL (32.0-36.0); MEAN CORPUSCULAR VOLUME 70 FL (80-99); MEAN PLATELET VOLUME 9.8 FL (6.5-10.1); MONOCYTES % (AUTO) 8.2 % (1.0-10.0); NEUTROPHILS % (AUTO) 61.5 % (45.0-75.0); PLATELET COUNT 348 K/UL (150-450); RED BLOOD COUNT 5.51 M/UL (4.70-6.10); RED CELL DISTRIBUTION WIDTH 13.3 % (11.6-14.8); WHITE BLOOD COUNT 8.3 K/UL (4.8-10.8)
[2016-08-09 07:55] LABS: ANION GAP 16 (5-15); CALCIUM 9.1 mg/dL (8.6-10.2); CARBON DIOXIDE 25 mEQ/L (20-30); CHLORIDE 102 mEQ/L (98-107); CREATININE 0.7 mg/dL (0.7-1.2); GLOMERULAR FILTRATION RATE > 60 mL/min (>60); HEMOLYSIS 1; POTASSIUM 4.1 mEQ/L (3.4-4.9); SODIUM 143 mEQ/L (135-145)
[2016-08-09 08:28] VITALS: BP 103/71
[2016-08-09] MEDS: Valproic Acid 250mg/5ml Liquid GT SCH ×2 (08:35→21:17)
[2016-08-09] MEDS: levETIRAcetam 500mg/5ml Liquid GT SCH ×2 (08:35→21:17)
[2016-08-09] MEDS: Vancomycin 1.5 GM in D5W 300 ML IVPB SCH ×2 (08:55→22:28)
[2016-08-09] MEDS: Heparin 5000 units/ml inj SUBQ SCH ×2 (10:59→21:20)
[2016-08-09 12:23] VITALS: BP 110/75
--- NOTE | 2016-08-09 14:54 | General Progress Note ---
Assessment/Plan Problem List: (1) Pneumonia ICD Codes: J18.9 - Pneumonia, unspecified organism SNOMED: 804496985 (2) Sepsis ICD Codes: A41.9 - Sepsis, unspecified organism SNOMED: 58362684 (3) Attention to G-tube ICD Codes: Z43.1 - Encounter for attention to gastrostomy SNOMED: 712931326, 458653032 (4) Altered level of consciousness ICD Codes: R40.4 - Transient alteration of awareness SNOMED: 2863734 (5) Seizure disorder, partial, intractable ICD Codes: G40.119 - Seizure disorder, partial, intractable SNOMED: 515327060 Status: stable, progressing, tolerating diet Assessment/Plan o2 pulm tx abx ot pt diet psyc care dc if clear by pulm and id Subjective Constitutional: Reports: weakness Allergies: Coded Allergies: NO KNOWN DRUG ALLERGIES (Unverified Allergy, Unknown, 08/22/15) All Systems: reviewed and negative except above Subjective sleepy calm Objective Last 24 Hour Vital Signs Date Time Temp Pulse Resp B/P Pulse Ox O2 Delivery O2 Flow Rate FiO2 08/09/16 12:23 98.0 105 20 110/75 99 Room Air 08/09/16 08:28 98.4 109 20 103/71 94 Room Air 08/09/16 07:08 89 18 Room Air 21 08/09/16 04:00 96.8 105 18 100/62 95 Room Air 08/09/16 00:00 97.2 104 18 109/75 95 Room Air 08/08/16 20:00 98 18 Room Air 21 08/08/16 20:00 97.2 100 19 99/68 99 Room Air 08/08/16 16:00 98.2 100 22 111/72 94 Room Air Intake and Output 08/08/16 08/09/16 19:00 07:00 Intake Total 490 ml 1119 ml Output Total 300 ml 550 ml Balance 190 ml 569 ml Free Water 130 ml 220 ml IV Total 404 ml Tube Feeding 360 ml 495 ml Output Urine Total 300 ml 550 ml # Voids 1 Laboratory Tests 08/09/16 05:50: White Blood Count 8.3, Red Blood Count 5.51, Hemoglobin 12.2L, Hematocrit 38.7L , Mean Corpuscular Volume 70L, Mean Corpuscular Hemoglobin 22.1L, Mean Corpuscular Hemoglobin Concent 31.4L, Red Cell Distribution Width 13.3, Platelet Count 348, Mean Platelet Volume 9.8, Neutrophils (%) (Auto) 61.5, Lymphocytes (%) (Auto) 25.0, Monocytes (%) (Auto) 8.2, Eosinophils (%) (Auto) 4.2H, Basophils (%) (Auto) 1.0, Sodium Level 143, Potassium Level 4.1, Chloride Level 102, Carbon Dioxide Level 25, Anion Gap 16H, Blood Urea Nitrogen 32H, Creatinine 0.7, Estimat Glomerular Filtration Rate > 60, Glucose Level 126H, Calcium Level 9.1 Height (Feet): 6 Height (Inches): 1.00 Weight (Pounds): 159 General Appearance: lethargic EENT: normal ENT inspection Neck: normal alignment Cardiovascular: normal peripheral pulses, normal rate, regular rhythm Respiratory/Chest: chest wall non-tender, lungs clear, normal breath sounds Abdomen: normal bowel sounds, non tender, soft Extremities: normal inspection Edema: no edema noted Arm (L), no edema noted Arm (R), no edema noted Leg (L), no edema noted Leg (R), no edema noted Pedal (L), no edema noted Pedal (R), no edema noted Generalized Neurologic: motor weakness Skin: normal pigmentation, warm/dry TONYA GOOD Aug 09, 2016 14:54
--- NOTE | 2016-08-09 15:11 | GI Progress Note ---
Assessment/Plan Problems: (1) C. difficile colitis ICD Codes: A04.7 - Enterocolitis due to Clostridium difficile SNOMED: 733104418 (2) Malfunction of percutaneous endoscopic gastrostomy (PEG) tube ICD Codes: K94.23 - Gastrostomy malfunction SNOMED: 658322355 (3) Pancytopenia ICD Codes: D61.818 - Other pancytopenia SNOMED: 036909735 Status: stable, unchanged Status Narrative Discussed with Dr. Light. Assessment/Plan Assessment (1) Seizure (2) Schizophrenia (3) Diabetes (4) Hypertension (5) cerebral palsy with advanced mental retardation (6) Malfunction of gastrostomy tube - leakage (7) Anemia (8) C Diff Colitis Recommendations - ok for DC per GI standpoint - Continue TF - GT replaced/site care daily/prn - Iron panel WNL - stool OB negative - Abx for C Diff - H2 Subjective Subjective limited Objective Last 24 Hour Vital Signs Date Time Temp Pulse Resp B/P Pulse Ox O2 Delivery O2 Flow Rate FiO2 08/09/16 12:23 98.0 105 20 110/75 99 Room Air 08/09/16 08:28 98.4 109 20 103/71 94 Room Air 08/09/16 07:08 89 18 Room Air 21 08/09/16 04:00 96.8 105 18 100/62 95 Room Air 08/09/16 00:00 97.2 104 18 109/75 95 Room Air 08/08/16 20:00 98 18 Room Air 21 08/08/16 20:00 97.2 100 19 99/68 99 Room Air 08/08/16 16:00 98.2 100 22 111/72 94 Room Air Intake and Output 08/08/16 08/09/16 19:00 07:00 Intake Total 490 ml 1119 ml Output Total 300 ml 550 ml Balance 190 ml 569 ml Free Water 130 ml 220 ml IV Total 404 ml Tube Feeding 360 ml 495 ml Output Urine Total 300 ml 550 ml # Voids 1 Laboratory Tests Test 08/09/16 05:50 White Blood Count 8.3 K/UL (4.8-10.8) Red Blood Count 5.51 M/UL (4.70-6.10) Hemoglobin 12.2 G/DL (14.2-18.0) L Hematocrit 38.7 % (42.0-52.0) L Mean Corpuscular Volume 70 FL (80-99) L Mean Corpuscular Hemoglobin 22.1 PG (27.0-31.0) L Mean Corpuscular Hemoglobin Concent 31.4 G/DL (32.0-36.0) L Red Cell Distribution Width 13.3 % (11.6-14.8) Platelet Count 348 K/UL (150-450) Mean Platelet Volume 9.8 FL (6.5-10.1) Neutrophils (%) (Auto) 61.5 % (45.0-75.0) Lymphocytes (%) (Auto) 25.0 % (20.0-45.0) Monocytes (%) (Auto) 8.2 % (1.0-10.0) Eosinophils (%) (Auto) 4.2 % (0.0-3.0) H Basophils (%) (Auto) 1.0 % (0.0-2.0) Sodium Level 143 mEQ/L (135-145) Potassium Level 4.1 mEQ/L (3.4-4.9) Chloride Level 102 mEQ/L (98-107) Carbon Dioxide Level 25 mEQ/L (20-30) Anion Gap 16 (5-15) H Blood Urea Nitrogen 32 mg/dL (7-23) H Creatinine 0.7 mg/dL (0.7-1.2) Estimat Glomerular Filtration Rate > 60 mL/min (>60) Glucose Level 126 mg/dL (74-106) H Calcium Level 9.1 mg/dL (8.6-10.2) Height (Feet): 6 Height (Inches): 1.00 Weight (Pounds): 159 General Appearance: no apparent distress Cardiovascular: normal rate Respiratory/Chest: normal breath sounds Abdominal Exam: normal bowel sounds, non tender, soft, GT site - c/d/i Chery Mcfarland N.P. Aug 09, 2016 15:11
--- NOTE | 2016-08-09 15:45 | Infectious Diseases Prog Note ---
Assessment/Plan Problems: (1) Sepsis Assessment & Plan: continue amikacin to cover for pseudomonas aeruginosa pneumonia and vancomycin empirically for two weeks , blood culture showed no growth so far. EOT 08/21/16 (2) C. difficile colitis Assessment & Plan: will continue vancomycin orally for two weeks total , avoid antacids and Imodium, EOT 08/12/16 (3) Malfunction of percutaneous endoscopic gastrostomy (PEG) tube Assessment & Plan: S/P replacement, GI is following (4) Diabetes Assessment & Plan: recommend tight glycemic control to keep fasting less than 120, and premeal less than 130 (5) Dermatitis Assessment & Plan: due to bile acid irritation from the G tube site leakage, continue local skin care and G tube care Subjective ROS Limited/Unobtainable: Yes Allergies: Coded Allergies: NO KNOWN DRUG ALLERGIES (Unverified Allergy, Unknown, 08/22/15) Subjective he is nonverbal, demented, resting in bed, developed fever today , no diarrhea as per nursing staff. Objective Vital Signs Last 24 Hour Vital Signs Date Time Temp Pulse Resp B/P Pulse Ox O2 Delivery O2 Flow Rate FiO2 08/09/16 12:23 98.0 105 20 110/75 99 Room Air 08/09/16 08:28 98.4 109 20 103/71 94 Room Air 08/09/16 07:08 89 18 Room Air 21 08/09/16 04:00 96.8 105 18 100/62 95 Room Air 08/09/16 00:00 97.2 104 18 109/75 95 Room Air 08/08/16 20:00 98 18 Room Air 21 08/08/16 20:00 97.2 100 19 99/68 99 Room Air 08/08/16 16:00 98.2 100 22 111/72 94 Room Air Height (Feet): 6 Height (Inches): 1.00 Weight (Pounds): 159 General Appearance: WD/WN, no acute distress HEENT: normocephalic, atraumatic, anicteric, mucous membranes moist Respiratory/Chest: chest wall non-tender, normal breath sounds, no respiratory distress, no accessory muscle use, decreased breath sounds Cardiovascular: normal peripheral pulses, normal rate, regular rhythm, no gallop/murmur, no JVD Abdomen: normal bowel sounds, soft, non tender, no organomegaly, non distended , no mass, no scars Extremities: no cyanosis, no clubbing Skin: no rash, no lesions, no ulcers Microbiology Date/Time Source Procedure Growth Status 08/06/16 21:25 Blood Blood Culture - Preliminary NO GROWTH AFTER 48 HOURS Resulted Laboratory Tests Test 08/09/16 05:50 White Blood Count 8.3 K/UL (4.8-10.8) Red Blood Count 5.51 M/UL (4.70-6.10) Hemoglobin 12.2 G/DL (14.2-18.0) L Hematocrit 38.7 % (42.0-52.0) L Mean Corpuscular Volume 70 FL (80-99) L Mean Corpuscular Hemoglobin 22.1 PG (27.0-31.0) L Mean Corpuscular Hemoglobin Concent 31.4 G/DL (32.0-36.0) L Red Cell Distribution Width 13.3 % (11.6-14.8) Platelet Count 348 K/UL (150-450) Mean Platelet Volume 9.8 FL (6.5-10.1) Neutrophils (%) (Auto) 61.5 % (45.0-75.0) Lymphocytes (%) (Auto) 25.0 % (20.0-45.0) Monocytes (%) (Auto) 8.2 % (1.0-10.0) Eosinophils (%) (Auto) 4.2 % (0.0-3.0) H Basophils (%) (Auto) 1.0 % (0.0-2.0) Sodium Level 143 mEQ/L (135-145) Potassium Level 4.1 mEQ/L (3.4-4.9) Chloride Level 102 mEQ/L (98-107) Carbon Dioxide Level 25 mEQ/L (20-30) Anion Gap 16 (5-15) H Blood Urea Nitrogen 32 mg/dL (7-23) H Creatinine 0.7 mg/dL (0.7-1.2) Estimat Glomerular Filtration Rate > 60 mL/min (>60) Glucose Level 126 mg/dL (74-106) H Calcium Level 9.1 mg/dL (8.6-10.2) Current Medications Medications (Trade) Dose Ordered Sig/Monalisa Route PRN Reason Start Time Stop Time Status Last Admin Dose Admin Acetaminophen (Tylenol) 650 mg Q4H PRN ORAL fever 07/28/16 15:00 08/27/16 14:59 Amikacin Protocol 1 ea 1 ea DAILY PRN MISC Per rx protocol 08/06/16 17:00 09/05/16 16:59 Amikacin Sulfate 1000 mg/Sodium Chloride 104 ml @ 200 mls/hr Q24H IV 08/06/16 20:00 08/13/16 19:59 08/08/16 18:36 Clotrimazole (Lotrimin) 1 applic THREE TIMES A DAY TOPIC 07/29/16 14:30 08/28/16 14:29 08/09/16 14:32 Finasteride (Proscar) 5 mg DAILY GT 07/29/16 09:00 08/28/16 08:59 08/09/16 08:35 Heparin Sodium (Porcine) (Heparin 5000 units/ml) 5,000 units EVERY 12 HOURS SUBQ 07/28/16 21:00 08/27/16 20:59 08/09/16 10:59 Levetiracetam (Keppra) 1,500 mg Q12HR GT 07/28/16 21:00 08/27/16 20:59 08/09/16 08:35 Lorazepam (Ativan) 1 mg Q6H PRN GT For Anxiety 08/04/16 14:58 08/10/16 14:58 Morphine Sulfate (Morphine Sulfate) 2 mg Q4H PRN IVP Moderate Pain (Pain Scale 4-6) 08/04/16 13:00 08/11/16 13:00 Nitroglycerin (Ntg) 0.4 mg Q5M X 3 DOSES PRN SL Prn Chest Pain 07/28/16 14:15 08/27/16 14:14 Ondansetron HCl (Zofran) 4 mg Q6H PRN IVP Nausea & Vomiting 07/28/16 15:00 08/27/16 14:59 Polyethylene Glycol (Miralax) 17 gm DAILYPRN PRN GT Constipation 07/28/16 15:00 08/27/16 14:59 Risperidone (RisperDAL) 1 mg BID ORAL 07/28/16 18:00 08/27/16 17:59 08/09/16 08:35 Temazepam (Restoril) 15 mg HSPRN PRN GT Insomnia 08/04/16 09:15 08/11/16 09:15 Valproic Acid (Depakene) 500 mg EVERY 12 HOURS GT 07/28/16 21:00 08/27/16 20:59 08/09/16 08:35 Vancomycin HCl (Vancomycin) 125 mg Q6H GT 07/29/16 20:00 08/12/16 19:59 08/09/16 14:33 Vancomycin HCl/ Dextrose (Vancomycin/D5W 250ml) 300 ml @ 150 mls/hr Q12HR IVPB 08/08/16 21:00 08/13/16 20:59 08/09/16 08:55 Tavo Ramirez M.D. Aug 09, 2016 15:45
[2016-08-09 16:24] VITALS: BP 106/72
--- NOTE | 2016-08-09 17:26 | Cardiac Electrophysiology PN ---
Assessment/Plan Assessment/Plan 1. Sinus Tachycardia due to sepsis and dehydration that resolved 2. Gastrostomy tube malfunction that resolved 3. Cerebral palsy. 4. Seizure disorder. 5. Schizophrenia. 6. C. diff on GT Vanco 7. Placement issue DW RN Will sign off Will be glad to reevaluate if any new issues arise Subjective Subjective No new events RN at bedside. Pending placement. Objective Last 24 Hour Vital Signs Date Time Temp Pulse Resp B/P Pulse Ox O2 Delivery O2 Flow Rate FiO2 08/09/16 16:24 98.4 110 20 106/72 99 Room Air 08/09/16 12:23 98.0 105 20 110/75 99 Room Air 08/09/16 08:28 98.4 109 20 103/71 94 Room Air 08/09/16 07:08 89 18 Room Air 21 08/09/16 04:00 96.8 105 18 100/62 95 Room Air 08/09/16 00:00 97.2 104 18 109/75 95 Room Air 08/08/16 20:00 98 18 Room Air 21 08/08/16 20:00 97.2 100 19 99/68 99 Room Air Intake and Output 08/08/16 08/09/16 19:00 07:00 Intake Total 490 ml 1119 ml Output Total 300 ml 550 ml Balance 190 ml 569 ml Free Water 130 ml 220 ml IV Total 404 ml Tube Feeding 360 ml 495 ml Output Urine Total 300 ml 550 ml # Voids 1 Laboratory Tests Test 08/09/16 05:50 White Blood Count 8.3 K/UL (4.8-10.8) Red Blood Count 5.51 M/UL (4.70-6.10) Hemoglobin 12.2 G/DL (14.2-18.0) L Hematocrit 38.7 % (42.0-52.0) L Mean Corpuscular Volume 70 FL (80-99) L Mean Corpuscular Hemoglobin 22.1 PG (27.0-31.0) L Mean Corpuscular Hemoglobin Concent 31.4 G/DL (32.0-36.0) L Red Cell Distribution Width 13.3 % (11.6-14.8) Platelet Count 348 K/UL (150-450) Mean Platelet Volume 9.8 FL (6.5-10.1) Neutrophils (%) (Auto) 61.5 % (45.0-75.0) Lymphocytes (%) (Auto) 25.0 % (20.0-45.0) Monocytes (%) (Auto) 8.2 % (1.0-10.0) Eosinophils (%) (Auto) 4.2 % (0.0-3.0) H Basophils (%) (Auto) 1.0 % (0.0-2.0) Sodium Level 143 mEQ/L (135-145) Potassium Level 4.1 mEQ/L (3.4-4.9) Chloride Level 102 mEQ/L (98-107) Carbon Dioxide Level 25 mEQ/L (20-30) Anion Gap 16 (5-15) H Blood Urea Nitrogen 32 mg/dL (7-23) H Creatinine 0.7 mg/dL (0.7-1.2) Estimat Glomerular Filtration Rate > 60 mL/min (>60) Glucose Level 126 mg/dL (74-106) H Calcium Level 9.1 mg/dL (8.6-10.2) Microbiology Date/Time Source Procedure Growth Status 08/06/16 21:25 Blood Blood Culture - Preliminary NO GROWTH AFTER 48 HOURS Resulted Objective HEAD AND NECK: Shows no JVD. LUNGS: Coarse rhonchi. CARDIOVASCULAR: Irregularly irregular S1 and S2 with no gallop or murmur. Tachycardic. ABDOMEN: G-tube intact EXTREMITIES: No pitting edema. HUMPHREY FRANCO Aug 09, 2016 17:26
--- NOTE | 2016-08-09 19:16 | Pulmonology Progress Note ---
Assessment/Plan Problems: (1) Hypertension (2) Seizure (3) Sepsis (4) UTI (urinary tract infection) (5) Malfunction of gastrostomy tube (6) care home resident (7) cerebral pulsy with advanced mental retardation (8) Schizophrenia Assessment/Plan Plan Tight BP and BG control Aspiration precautions Seizure precautions Continue ANTBX Subjective ROS Limited/Unobtainable: Yes Constitutional: Reports: anorexia, fatigue Gastrointestinal/Abdominal: Reports: bloating, constipation, nausea Neurologic: Reports: confusion, weakness Allergies: Coded Allergies: NO KNOWN DRUG ALLERGIES (Unverified Allergy, Unknown, 08/22/15) Objective Last 24 Hour Vital Signs Date Time Temp Pulse Resp B/P Pulse Ox O2 Delivery O2 Flow Rate FiO2 08/09/16 16:24 98.4 110 20 106/72 99 Room Air 08/09/16 12:23 98.0 105 20 110/75 99 Room Air 08/09/16 08:28 98.4 109 20 103/71 94 Room Air 08/09/16 07:08 89 18 Room Air 21 08/09/16 04:00 96.8 105 18 100/62 95 Room Air 08/09/16 00:00 97.2 104 18 109/75 95 Room Air 08/08/16 20:00 98 18 Room Air 21 08/08/16 20:00 97.2 100 19 99/68 99 Room Air Intake and Output 08/08/16 08/09/16 19:00 07:00 Intake Total 490 ml 1119 ml Output Total 300 ml 550 ml Balance 190 ml 569 ml Free Water 130 ml 220 ml IV Total 404 ml Tube Feeding 360 ml 495 ml Output Urine Total 300 ml 550 ml # Voids 1 General Appearance: no acute distress HEENT: normocephalic, atraumatic, PERRL Respiratory/Chest: chest wall non-tender, decreased breath sounds, accessory muscle use, rhonchi Cardiovascular: normal peripheral pulses, normal rate, regular rhythm, no JVD Abdomen: hypoactive bowel sounds, distended, guarding, tender, rebound tenderness, other Genitourinary: normal external genitalia Extremities: no cyanosis Skin: no rash 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, responsive, disoriented, depressed affect Microbiology Date/Time Source Procedure Growth Status 08/06/16 21:25 Blood Blood Culture - Preliminary NO GROWTH AFTER 48 HOURS Resulted Laboratory Tests 08/09/16 05:50: White Blood Count 8.3, Red Blood Count 5.51, Hemoglobin 12.2L, Hematocrit 38.7L , Mean Corpuscular Volume 70L, Mean Corpuscular Hemoglobin 22.1L, Mean Corpuscular Hemoglobin Concent 31.4L, Red Cell Distribution Width 13.3, Platelet Count 348, Mean Platelet Volume 9.8, Neutrophils (%) (Auto) 61.5, Lymphocytes (%) (Auto) 25.0, Monocytes (%) (Auto) 8.2, Eosinophils (%) (Auto) 4.2H, Basophils (%) (Auto) 1.0, Sodium Level 143, Potassium Level 4.1, Chloride Level 102, Carbon Dioxide Level 25, Anion Gap 16H, Blood Urea Nitrogen 32H, Creatinine 0.7, Estimat Glomerular Filtration Rate > 60, Glucose Level 126H, Calcium Level 9.1 Current Medications Medications (Trade) Dose Ordered Sig/Monalisa Route PRN Reason Start Time Stop Time Status Last Admin Dose Admin Acetaminophen (Tylenol) 650 mg Q4H PRN ORAL fever 07/28/16 15:00 08/27/16 14:59 Amikacin Protocol 1 ea 1 ea DAILY PRN MISC Per rx protocol 08/06/16 17:00 09/05/16 16:59 Amikacin Sulfate 1000 mg/Sodium Chloride 104 ml @ 200 mls/hr Q24H IV 08/06/16 20:00 08/20/16 23:59 08/08/16 18:36 Clotrimazole (Lotrimin) 1 applic THREE TIMES A DAY TOPIC 07/29/16 14:30 08/28/16 14:29 08/09/16 17:53 Finasteride (Proscar) 5 mg DAILY GT 07/29/16 09:00 08/28/16 08:59 08/09/16 08:35 Heparin Sodium (Porcine) (Heparin 5000 units/ml) 5,000 units EVERY 12 HOURS SUBQ 07/28/16 21:00 08/27/16 20:59 08/09/16 10:59 Levetiracetam (Keppra) 1,500 mg Q12HR GT 07/28/16 21:00 08/27/16 20:59 08/09/16 08:35 Lorazepam (Ativan) 1 mg Q6H PRN GT For Anxiety 08/04/16 14:58 08/10/16 14:58 Morphine Sulfate (Morphine Sulfate) 2 mg Q4H PRN IVP Moderate Pain (Pain Scale 4-6) 08/04/16 13:00 08/11/16 13:00 Nitroglycerin (Ntg) 0.4 mg Q5M X 3 DOSES PRN SL Prn Chest Pain 07/28/16 14:15 08/27/16 14:14 Ondansetron HCl (Zofran) 4 mg Q6H PRN IVP Nausea & Vomiting 07/28/16 15:00 08/27/16 14:59 Polyethylene Glycol (Miralax) 17 gm DAILYPRN PRN GT Constipation 07/28/16 15:00 08/27/16 14:59 Risperidone (RisperDAL) 1 mg BID ORAL 07/28/16 18:00 08/27/16 17:59 08/09/16 17:52 Temazepam (Restoril) 15 mg HSPRN PRN GT Insomnia 08/04/16 09:15 08/11/16 09:15 Valproic Acid (Depakene) 500 mg EVERY 12 HOURS GT 07/28/16 21:00 08/27/16 20:59 08/09/16 08:35 Vancomycin HCl (Vancomycin) 125 mg Q6H GT 07/29/16 20:00 08/12/16 19:59 08/09/16 17:53 Vancomycin HCl/ Dextrose (Vancomycin/D5W 250ml) 300 ml @ 150 mls/hr Q12HR IVPB 08/08/16 21:00 08/20/16 23:59 08/09/16 08:55 NEEL LUJAN Aug 09, 2016 19:16
[2016-08-09 20:00] VITALS: BP 98/62
[2016-08-10] VITALS (7 sets, daily range): BP systolic 91–105; BP diastolic 56–68
[2016-08-10] MEDS: Vancomycin oral 125mg/2.5ml GT SCH ×4 (02:03→18:38)
[2016-08-10] MEDS: Valproic Acid 250mg/5ml Liquid GT SCH ×2 (08:35→22:18)
[2016-08-10] MEDS: levETIRAcetam 500mg/5ml Liquid GT SCH ×2 (08:35→22:18)
[2016-08-10] MEDS: Heparin 5000 units/ml inj SUBQ SCH ×2 (08:36→22:24)
--- NOTE | 2016-08-10 08:45 | General Progress Note ---
Assessment/Plan Problem List: (1) Pneumonia ICD Codes: J18.9 - Pneumonia, unspecified organism SNOMED: 246772599 (2) Sepsis ICD Codes: A41.9 - Sepsis, unspecified organism SNOMED: 49717910 (3) Attention to G-tube ICD Codes: Z43.1 - Encounter for attention to gastrostomy SNOMED: 228598664, 825019216 (4) Altered level of consciousness ICD Codes: R40.4 - Transient alteration of awareness SNOMED: 6342181 (5) Seizure disorder, partial, intractable ICD Codes: G40.119 - Seizure disorder, partial, intractable SNOMED: 050883854 Status: stable, progressing, tolerating diet Assessment/Plan o2 pulm tx abx ot pt diet psyc care dc if clear by pulm and id Subjective Constitutional: Reports: weakness Allergies: Coded Allergies: NO KNOWN DRUG ALLERGIES (Unverified Allergy, Unknown, 08/22/15) All Systems: reviewed and negative except above Subjective sleepy calm Objective Last 24 Hour Vital Signs Date Time Temp Pulse Resp B/P Pulse Ox O2 Delivery O2 Flow Rate FiO2 08/10/16 08:34 98.0 87 18 96/59 98 Room Air 08/10/16 04:00 97.7 93 18 94/68 96 Room Air 08/10/16 00:00 97.5 104 18 94/61 97 Room Air 08/09/16 20:00 97.7 97 18 98/62 99 Room Air 08/09/16 16:24 98.4 110 20 106/72 99 Room Air 08/09/16 12:23 98.0 105 20 110/75 99 Room Air Intake and Output 08/09/16 08/10/16 19:00 07:00 Intake Total 970 ml 1179 ml Output Total 400 ml Balance 570 ml 1179 ml Free Water 130 ml 280 ml IV Total 300 ml 404 ml Tube Feeding 540 ml 495 ml Output Urine Total 400 ml Height (Feet): 6 Height (Inches): 1.00 Weight (Pounds): 159 General Appearance: lethargic EENT: normal ENT inspection Neck: normal alignment Cardiovascular: normal peripheral pulses, normal rate, regular rhythm Respiratory/Chest: chest wall non-tender, lungs clear, normal breath sounds Abdomen: normal bowel sounds, non tender, soft Extremities: normal inspection Edema: no edema noted Arm (L), no edema noted Arm (R), no edema noted Leg (L), no edema noted Leg (R), no edema noted Pedal (L), no edema noted Pedal (R), no edema noted Generalized Neurologic: motor weakness Skin: normal pigmentation, warm/dry TONYA GOOD Aug 10, 2016 08:45
[2016-08-10 09:22] LABS: BASOPHILS % (AUTO) 0.9 % (0.0-2.0); EOSINOPHILS % (AUTO) 6.8 % (0.0-3.0); LYMPHOCYTES % (AUTO) 23.7 % (20.0-45.0); MEAN CORPUSCULAR HEMOGLOBIN 21.5 PG (27.0-31.0); MEAN CORPUSCULAR HGB CONC 30.6 G/DL (32.0-36.0); MEAN CORPUSCULAR VOLUME 70 FL (80-99); MEAN PLATELET VOLUME 8.9 FL (6.5-10.1); MONOCYTES % (AUTO) 12.5 % (1.0-10.0); PLATELET COUNT 329 K/UL (150-450); RED BLOOD COUNT 5.52 M/UL (4.70-6.10); RED CELL DISTRIBUTION WIDTH 13.7 % (11.6-14.8); WHITE BLOOD COUNT 7.3 K/UL (4.8-10.8)
[2016-08-10 09:49] LABS: ANION GAP 14 (5-15); CALCIUM 8.9 mg/dL (8.6-10.2); CARBON DIOXIDE 26 mEQ/L (20-30); CHLORIDE 102 mEQ/L (98-107); CREATININE 0.6 mg/dL (0.7-1.2); GLOMERULAR FILTRATION RATE > 60 mL/min (>60); HEMOLYSIS 0; POTASSIUM 4.2 mEQ/L (3.4-4.9); SODIUM 142 mEQ/L (135-145)
[2016-08-10] MEDS: Vancomycin 1.5 GM in D5W 300 ML IVPB SCH ×2 (10:17→21:00)
--- NOTE | 2016-08-10 13:45 | GI Progress Note ---
Assessment/Plan Problems: (1) C. difficile colitis ICD Codes: A04.7 - Enterocolitis due to Clostridium difficile SNOMED: 770802040 (2) Malfunction of percutaneous endoscopic gastrostomy (PEG) tube ICD Codes: K94.23 - Gastrostomy malfunction SNOMED: 169372227 (3) Pancytopenia ICD Codes: D61.818 - Other pancytopenia SNOMED: 979956731 Status: stable, unchanged Status Narrative Discussed with Dr. Light. Assessment/Plan Assessment (1) Seizure (2) Schizophrenia (3) Diabetes (4) Hypertension (5) cerebral palsy with advanced mental retardation (6) Malfunction of gastrostomy tube - leakage (7) Anemia (8) C Diff Colitis Recommendations - ok for DC per GI standpoint - Continue TF - GT replaced/site care daily/prn - Iron panel WNL - stool OB negative - Abx for C Diff - H2 Subjective Subjective limited Objective Last 24 Hour Vital Signs Date Time Temp Pulse Resp B/P Pulse Ox O2 Delivery O2 Flow Rate FiO2 08/10/16 11:42 98.4 86 18 105/65 99 Room Air 08/10/16 08:34 98.0 87 18 96/59 98 Room Air 08/10/16 04:00 97.7 93 18 94/68 96 Room Air 08/10/16 00:00 97.5 104 18 94/61 97 Room Air 08/09/16 20:00 97.7 97 18 98/62 99 Room Air 08/09/16 16:24 98.4 110 20 106/72 99 Room Air Intake and Output 08/09/16 08/10/16 19:00 07:00 Intake Total 970 ml 1179 ml Output Total 400 ml Balance 570 ml 1179 ml Free Water 130 ml 280 ml IV Total 300 ml 404 ml Tube Feeding 540 ml 495 ml Output Urine Total 400 ml Laboratory Tests Test 08/10/16 08:30 White Blood Count 7.3 K/UL (4.8-10.8) Red Blood Count 5.52 M/UL (4.70-6.10) Hemoglobin 11.9 G/DL (14.2-18.0) L Hematocrit 38.8 % (42.0-52.0) L Mean Corpuscular Volume 70 FL (80-99) L Mean Corpuscular Hemoglobin 21.5 PG (27.0-31.0) L Mean Corpuscular Hemoglobin Concent 30.6 G/DL (32.0-36.0) L Red Cell Distribution Width 13.7 % (11.6-14.8) Platelet Count 329 K/UL (150-450) Mean Platelet Volume 8.9 FL (6.5-10.1) Neutrophils (%) (Auto) 56.0 % (45.0-75.0) Lymphocytes (%) (Auto) 23.7 % (20.0-45.0) Monocytes (%) (Auto) 12.5 % (1.0-10.0) H Eosinophils (%) (Auto) 6.8 % (0.0-3.0) H Basophils (%) (Auto) 0.9 % (0.0-2.0) Sodium Level 142 mEQ/L (135-145) Potassium Level 4.2 mEQ/L (3.4-4.9) Chloride Level 102 mEQ/L (98-107) Carbon Dioxide Level 26 mEQ/L (20-30) Anion Gap 14 (5-15) Blood Urea Nitrogen 30 mg/dL (7-23) H Creatinine 0.6 mg/dL (0.7-1.2) L Estimat Glomerular Filtration Rate > 60 mL/min (>60) Glucose Level 145 mg/dL (74-106) H Calcium Level 8.9 mg/dL (8.6-10.2) Vancomycin Level Trough 15.4 ug/mL (5.0-12.0) H Height (Feet): 6 Height (Inches): 1.00 Weight (Pounds): 159 General Appearance: alert Cardiovascular: normal rate Respiratory/Chest: normal breath sounds, no respiratory distress Abdominal Exam: normal bowel sounds, non tender, soft, GT site - c/d/i Chery Mcfarland NCalvin Aug 10, 2016 13:45
--- NOTE | 2016-08-10 16:54 | Pulmonology Progress Note ---
Assessment/Plan Problems: (1) Hypertension (2) Seizure (3) Sepsis (4) UTI (urinary tract infection) (5) Malfunction of gastrostomy tube (6) custodial resident (7) cerebral pulsy with advanced mental retardation (8) Schizophrenia Assessment/Plan Assessment/Plan Plan Tight BP and BG control Aspiration precautions Seizure precautions Continue ANTBX Subjective ROS Limited/Unobtainable: Yes Constitutional: Reports: anorexia, fatigue Gastrointestinal/Abdominal: Reports: bloating, constipation, nausea Neurologic: Reports: confusion, weakness Allergies: Coded Allergies: NO KNOWN DRUG ALLERGIES (Unverified Allergy, Unknown, 08/22/15) Objective Last 24 Hour Vital Signs Date Time Temp Pulse Resp B/P Pulse Ox O2 Delivery O2 Flow Rate FiO2 08/10/16 15:31 97.3 88 20 91/56 95 Room Air 08/10/16 11:42 98.4 86 18 105/65 99 Room Air 08/10/16 08:34 98.0 87 18 96/59 98 Room Air 08/10/16 04:00 97.7 93 18 94/68 96 Room Air 08/10/16 00:00 97.5 104 18 94/61 97 Room Air 08/09/16 20:00 97.7 97 18 98/62 99 Room Air Intake and Output 08/09/16 08/10/16 19:00 07:00 Intake Total 970 ml 1224 ml Output Total 400 ml Balance 570 ml 1224 ml Free Water 130 ml 280 ml IV Total 300 ml 404 ml Tube Feeding 540 ml 540 ml Output Urine Total 400 ml General Appearance: no acute distress HEENT: normocephalic, atraumatic, PERRL Respiratory/Chest: chest wall non-tender, decreased breath sounds, accessory muscle use Cardiovascular: normal peripheral pulses, normal rate, regular rhythm, no JVD Abdomen: hypoactive bowel sounds, distended, guarding, tender, rebound tenderness Genitourinary: normal external genitalia Extremities: no cyanosis Skin: no rash, no lesions 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, 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, disoriented, depressed affect Laboratory Tests 08/10/16 08:30: White Blood Count 7.3, Red Blood Count 5.52, Hemoglobin 11.9L, Hematocrit 38.8L , Mean Corpuscular Volume 70L, Mean Corpuscular Hemoglobin 21.5L, Mean Corpuscular Hemoglobin Concent 30.6L, Red Cell Distribution Width 13.7, Platelet Count 329, Mean Platelet Volume 8.9, Neutrophils (%) (Auto) 56.0, Lymphocytes (%) (Auto) 23.7, Monocytes (%) (Auto) 12.5H, Eosinophils (%) (Auto) 6.8H, Basophils (%) (Auto) 0.9, Sodium Level 142, Potassium Level 4.2, Chloride Level 102, Carbon Dioxide Level 26, Anion Gap 14, Blood Urea Nitrogen 30H, Creatinine 0.6L, Estimat Glomerular Filtration Rate > 60, Glucose Level 145H, Calcium Level 8.9, Vancomycin Level Trough 15.4H Current Medications Medications (Trade) Dose Ordered Sig/Monalisa Route PRN Reason Start Time Stop Time Status Last Admin Dose Admin Acetaminophen (Tylenol) 650 mg Q4H PRN ORAL fever 07/28/16 15:00 08/27/16 14:59 Amikacin Protocol 1 ea 1 ea DAILY PRN MISC Per rx protocol 08/06/16 17:00 09/05/16 16:59 Amikacin Sulfate 1000 mg/Sodium Chloride 104 ml @ 200 mls/hr Q24H IV 08/06/16 20:00 08/20/16 23:59 08/09/16 21:16 Clotrimazole (Lotrimin) 1 applic THREE TIMES A DAY TOPIC 07/29/16 14:30 08/28/16 14:29 08/10/16 13:30 Finasteride (Proscar) 5 mg DAILY GT 07/29/16 09:00 08/28/16 08:59 08/10/16 08:34 Heparin Sodium (Porcine) (Heparin 5000 units/ml) 5,000 units EVERY 12 HOURS SUBQ 07/28/16 21:00 08/27/16 20:59 08/10/16 08:36 Levetiracetam (Keppra) 1,500 mg Q12HR GT 07/28/16 21:00 08/27/16 20:59 08/10/16 08:35 Morphine Sulfate (Morphine Sulfate) 2 mg Q4H PRN IVP Moderate Pain (Pain Scale 4-6) 08/04/16 13:00 08/11/16 13:00 Nitroglycerin (Ntg) 0.4 mg Q5M X 3 DOSES PRN SL Prn Chest Pain 07/28/16 14:15 08/27/16 14:14 Ondansetron HCl (Zofran) 4 mg Q6H PRN IVP Nausea & Vomiting 07/28/16 15:00 08/27/16 14:59 Polyethylene Glycol (Miralax) 17 gm DAILYPRN PRN GT Constipation 07/28/16 15:00 08/27/16 14:59 Risperidone (RisperDAL) 1 mg BID ORAL 07/28/16 18:00 08/27/16 17:59 08/10/16 09:44 Temazepam (Restoril) 15 mg HSPRN PRN GT Insomnia 08/04/16 09:15 08/11/16 09:15 Valproic Acid (Depakene) 500 mg EVERY 12 HOURS GT 07/28/16 21:00 08/27/16 20:59 08/10/16 08:35 Vancomycin HCl (Vancomycin) 125 mg Q6H GT 07/29/16 20:00 08/12/16 23:59 08/10/16 13:30 Vancomycin HCl/ Dextrose (Vancomycin/D5W 250ml) 300 ml @ 150 mls/hr Q12HR IVPB 08/08/16 21:00 08/20/16 23:59 08/10/16 10:17 NEEL LUJAN Aug 10, 2016 16:54
[2016-08-10] MEDS ORDERED: Sterile Water For Irrig 2000ml IRRIG ONE (18:15)
[2016-08-10] MEDS ORDERED: Tubing IV Secondary IV ONE (18:15)
--- NOTE | 2016-08-10 19:22 | Infectious Diseases Prog Note ---
Assessment/Plan Problems: (1) Sepsis Assessment & Plan: continue amikacin to cover for pseudomonas aeruginosa pneumonia and vancomycin empirically for two weeks , blood culture showed no growth so far. EOT 08/21/16 (2) C. difficile colitis Assessment & Plan: will continue vancomycin orally for two weeks total , avoid antacids and Imodium, EOT 08/12/16 (3) Malfunction of percutaneous endoscopic gastrostomy (PEG) tube Assessment & Plan: S/P replacement, GI is following (4) Diabetes Assessment & Plan: recommend tight glycemic control to keep fasting less than 120, and premeal less than 130 (5) Dermatitis Assessment & Plan: due to bile acid irritation from the G tube site leakage, continue local skin care and G tube care Subjective ROS Limited/Unobtainable: Yes Allergies: Coded Allergies: NO KNOWN DRUG ALLERGIES (Unverified Allergy, Unknown, 08/22/15) Subjective he is nonverbal, demented, resting in bed, developed fever today , no diarrhea as per nursing staff. Objective Vital Signs Last 24 Hour Vital Signs Date Time Temp Pulse Resp B/P Pulse Ox O2 Delivery O2 Flow Rate FiO2 08/10/16 15:31 97.3 88 20 91/56 95 Room Air 08/10/16 11:42 98.4 86 18 105/65 99 Room Air 08/10/16 08:34 98.0 87 18 96/59 98 Room Air 08/10/16 04:00 97.7 93 18 94/68 96 Room Air 08/10/16 00:00 97.5 104 18 94/61 97 Room Air 08/09/16 20:00 97.7 97 18 98/62 99 Room Air Height (Feet): 6 Height (Inches): 1.00 Weight (Pounds): 159 General Appearance: WD/WN, no acute distress HEENT: normocephalic, atraumatic, anicteric, PERRL Respiratory/Chest: chest wall non-tender, lungs clear, normal breath sounds, no respiratory distress, no accessory muscle use Cardiovascular: normal peripheral pulses, normal rate, regular rhythm, no gallop/murmur, no JVD Abdomen: normal bowel sounds, soft, non tender, no organomegaly, non distended , no mass, no scars Extremities: no cyanosis, no clubbing Skin: no rash, no lesions, no ulcers Laboratory Tests Test 08/10/16 08:30 White Blood Count 7.3 K/UL (4.8-10.8) Red Blood Count 5.52 M/UL (4.70-6.10) Hemoglobin 11.9 G/DL (14.2-18.0) L Hematocrit 38.8 % (42.0-52.0) L Mean Corpuscular Volume 70 FL (80-99) L Mean Corpuscular Hemoglobin 21.5 PG (27.0-31.0) L Mean Corpuscular Hemoglobin Concent 30.6 G/DL (32.0-36.0) L Red Cell Distribution Width 13.7 % (11.6-14.8) Platelet Count 329 K/UL (150-450) Mean Platelet Volume 8.9 FL (6.5-10.1) Neutrophils (%) (Auto) 56.0 % (45.0-75.0) Lymphocytes (%) (Auto) 23.7 % (20.0-45.0) Monocytes (%) (Auto) 12.5 % (1.0-10.0) H Eosinophils (%) (Auto) 6.8 % (0.0-3.0) H Basophils (%) (Auto) 0.9 % (0.0-2.0) Sodium Level 142 mEQ/L (135-145) Potassium Level 4.2 mEQ/L (3.4-4.9) Chloride Level 102 mEQ/L (98-107) Carbon Dioxide Level 26 mEQ/L (20-30) Anion Gap 14 (5-15) Blood Urea Nitrogen 30 mg/dL (7-23) H Creatinine 0.6 mg/dL (0.7-1.2) L Estimat Glomerular Filtration Rate > 60 mL/min (>60) Glucose Level 145 mg/dL (74-106) H Calcium Level 8.9 mg/dL (8.6-10.2) Vancomycin Level Trough 15.4 ug/mL (5.0-12.0) H Current Medications Medications (Trade) Dose Ordered Sig/Monalisa Route PRN Reason Start Time Stop Time Status Last Admin Dose Admin Acetaminophen (Tylenol) 650 mg Q4H PRN ORAL fever 07/28/16 15:00 08/27/16 14:59 Amikacin Protocol 1 ea 1 ea DAILY PRN MISC Per rx protocol 08/06/16 17:00 2/8/17 16:59 Amikacin Sulfate 1000 mg/Sodium Chloride 104 ml @ 200 mls/hr Q24H IV 08/06/16 20:00 08/20/16 23:59 08/09/16 21:16 Clotrimazole (Lotrimin) 1 applic THREE TIMES A DAY TOPIC 07/29/16 14:30 08/28/16 14:29 08/10/16 18:37 Finasteride (Proscar) 5 mg DAILY GT 07/29/16 09:00 08/28/16 08:59 08/10/16 08:34 Heparin Sodium (Porcine) (Heparin 5000 units/ml) 5,000 units EVERY 12 HOURS SUBQ 07/28/16 21:00 08/27/16 20:59 08/10/16 08:36 Levetiracetam (Keppra) 1,500 mg Q12HR GT 07/28/16 21:00 08/27/16 20:59 08/10/16 08:35 Morphine Sulfate (Morphine Sulfate) 2 mg Q4H PRN IVP Moderate Pain (Pain Scale 4-6) 08/04/16 13:00 08/11/16 13:00 Nitroglycerin (Ntg) 0.4 mg Q5M X 3 DOSES PRN SL Prn Chest Pain 07/28/16 14:15 08/27/16 14:14 Ondansetron HCl (Zofran) 4 mg Q6H PRN IVP Nausea & Vomiting 07/28/16 15:00 08/27/16 14:59 Polyethylene Glycol (Miralax) 17 gm DAILYPRN PRN GT Constipation 07/28/16 15:00 08/27/16 14:59 Risperidone (RisperDAL) 1 mg BID ORAL 07/28/16 18:00 08/27/16 17:59 08/10/16 18:37 Temazepam (Restoril) 15 mg HSPRN PRN GT Insomnia 08/04/16 09:15 08/11/16 09:15 Valproic Acid (Depakene) 500 mg EVERY 12 HOURS GT 07/28/16 21:00 08/27/16 20:59 08/10/16 08:35 Vancomycin HCl (Vancomycin) 125 mg Q6H GT 07/29/16 20:00 08/12/16 23:59 08/10/16 18:38 Vancomycin HCl/ Dextrose (Vancomycin/D5W 250ml) 300 ml @ 150 mls/hr Q12HR IVPB 08/08/16 21:00 08/20/16 23:59 08/10/16 10:17 Tavo Ramirez M.D. Aug 10, 2016 19:22
[2016-08-11] VITALS (7 sets, daily range): BP systolic 89–111; BP diastolic 56–72
[2016-08-11] MEDS: Vancomycin 1.5 GM in D5W 300 ML IVPB SCH ×2 (01:10→14:00)
[2016-08-11] MEDS: Vancomycin oral 125mg/2.5ml GT SCH ×4 (02:00→19:49)
[2016-08-11 07:26] LABS: BASOPHILS % (AUTO) 0.9 % (0.0-2.0); EOSINOPHILS % (AUTO) 6.7 % (0.0-3.0); LYMPHOCYTES % (AUTO) 33.3 % (20.0-45.0); MEAN CORPUSCULAR HEMOGLOBIN 22.2 PG (27.0-31.0); MEAN CORPUSCULAR HGB CONC 31.8 G/DL (32.0-36.0); MEAN CORPUSCULAR VOLUME 70 FL (80-99); MEAN PLATELET VOLUME 9.1 FL (6.5-10.1); MONOCYTES % (AUTO) 5.5 % (1.0-10.0); NEUTROPHILS % (AUTO) 53.6 % (45.0-75.0); PLATELET COUNT 327 K/UL (150-450); RED BLOOD COUNT 5.29 M/UL (4.70-6.10)
[2016-08-11 07:34] LABS: ANION GAP 15 (5-15); CALCIUM 8.7 mg/dL (8.6-10.2); CARBON DIOXIDE 25 mEQ/L (20-30); CHLORIDE 100 mEQ/L (98-107); CREATININE 0.6 mg/dL (0.7-1.2); GLOMERULAR FILTRATION RATE > 60 mL/min (>60); HEMOLYSIS 2; POTASSIUM 4.2 mEQ/L (3.4-4.9); SODIUM 140 mEQ/L (135-145)
[2016-08-11] MEDS: Valproic Acid 250mg/5ml Liquid GT SCH ×2 (08:48→20:50)
[2016-08-11] MEDS: levETIRAcetam 500mg/5ml Liquid GT SCH ×2 (08:49→20:50)
[2016-08-11] MEDS: Heparin 5000 units/ml inj SUBQ SCH ×2 (09:00→20:51)
--- NOTE | 2016-08-11 13:43 | General Progress Note ---
Assessment/Plan Problem List: (1) Acute lower UTI (2) Seizure disorder, complex partial ICD Codes: G40.209 - Localization-related (focal) (partial) symptomatic epilepsy and epileptic syndromes with complex partial seizures, not intractable , without status epilepticus SNOMED: 256626633 (3) Seizure ICD Codes: R56.9 - Seizure SNOMED: 40776706 (4) Hyperlipidemia ICD Codes: E78.5 - Hyperlipidemia SNOMED: 89980402 (5) Schizophrenia ICD Codes: F20.9 - Schizophrenia, unspecified SNOMED: 45796493 (6) Diabetes ICD Codes: E11.9 - Diabetes SNOMED: 27082016 (7) Sepsis ICD Codes: A41.9 - Sepsis SNOMED: 75371134 Status: progressing Assessment/Plan reviewed chart an labs no acute events vitals stable afebrile Subjective ROS Limited/Unobtainable: Yes Constitutional: Reports: no symptoms Allergies: Coded Allergies: NO KNOWN DRUG ALLERGIES (Unverified Allergy, Unknown, 08/22/15) Objective Last 24 Hour Vital Signs Date Time Temp Pulse Resp B/P Pulse Ox O2 Delivery O2 Flow Rate FiO2 08/11/16 12:02 98.0 86 20 99/62 99 Room Air 08/11/16 08:25 98.2 88 20 101/66 99 Room Air 08/11/16 04:18 97.2 93 18 101/65 96 Room Air 08/10/16 23:51 97.9 92 19 100/60 96 Room Air 08/10/16 20:00 98.8 90 20 97/59 96 Room Air 08/10/16 15:31 97.3 88 20 91/56 95 Room Air Intake and Output 08/10/16 08/11/16 19:00 07:00 Intake Total 1000 ml 715 ml Output Total 200 ml 950 ml Balance 800 ml -235 ml Free Water 160 ml 220 ml IV Total 300 ml Tube Feeding 540 ml 495 ml Output Urine Total 200 ml 950 ml # Bowel Movements 1 Laboratory Tests 08/11/16 04:55: White Blood Count 8.0, Red Blood Count 5.29, Hemoglobin 11.7L, Hematocrit 36.9L , Mean Corpuscular Volume 70L, Mean Corpuscular Hemoglobin 22.2L, Mean Corpuscular Hemoglobin Concent 31.8L, Red Cell Distribution Width 13.0, Platelet Count 327, Mean Platelet Volume 9.1, Neutrophils (%) (Auto) 53.6, Lymphocytes (%) (Auto) 33.3, Monocytes (%) (Auto) 5.5, Eosinophils (%) (Auto) 6.7H, Basophils (%) (Auto) 0.9, Sodium Level 140, Potassium Level 4.2, Chloride Level 100, Carbon Dioxide Level 25, Anion Gap 15, Blood Urea Nitrogen 26H, Creatinine 0.6L, Estimat Glomerular Filtration Rate > 60, Glucose Level 133H, Calcium Level 8.7 Height (Feet): 6 Height (Inches): 1.00 Weight (Pounds): 159 EENT: PERRL/EOMI Neck: supple Cardiovascular: normal rate Respiratory/Chest: lungs clear Abdomen: soft Amy Martínez MD Aug 11, 2016 13:43
--- NOTE | 2016-08-11 15:24 | Infectious Diseases Prog Note ---
Assessment/Plan Problems: (1) Sepsis Assessment & Plan: continue amikacin to cover for pseudomonas aeruginosa pneumonia and vancomycin empirically for two weeks , blood culture showed no growth so far. EOT 08/21/16 (2) C. difficile colitis Assessment & Plan: will continue vancomycin orally for two weeks total , avoid antacids and Imodium, EOT 08/12/16 (3) Malfunction of percutaneous endoscopic gastrostomy (PEG) tube Assessment & Plan: S/P replacement, GI is following (4) Diabetes Assessment & Plan: recommend tight glycemic control to keep fasting less than 120, and premeal less than 130 (5) Dermatitis Assessment & Plan: due to bile acid irritation from the G tube site leakage, continue local skin care and G tube care Subjective ROS Limited/Unobtainable: Yes Allergies: Coded Allergies: NO KNOWN DRUG ALLERGIES (Unverified Allergy, Unknown, 08/22/15) Subjective he is nonverbal, demented, resting in bed, developed fever today , no diarrhea as per nursing staff. Objective Vital Signs Last 24 Hour Vital Signs Date Time Temp Pulse Resp B/P Pulse Ox O2 Delivery O2 Flow Rate FiO2 08/11/16 12:02 98.0 86 20 99/62 99 Room Air 08/11/16 08:25 98.2 88 20 101/66 99 Room Air 08/11/16 04:18 97.2 93 18 101/65 96 Room Air 08/10/16 23:51 97.9 92 19 100/60 96 Room Air 08/10/16 20:00 98.8 90 20 97/59 96 Room Air 08/10/16 15:31 97.3 88 20 91/56 95 Room Air Height (Feet): 6 Height (Inches): 1.00 Weight (Pounds): 159 General Appearance: WD/WN, no acute distress HEENT: normocephalic, atraumatic, anicteric, mucous membranes moist Respiratory/Chest: chest wall non-tender, lungs clear, normal breath sounds, no respiratory distress, no accessory muscle use Cardiovascular: normal peripheral pulses, normal rate, regular rhythm, no gallop/murmur Abdomen: normal bowel sounds, soft, non tender, no organomegaly, non distended , no mass Extremities: no cyanosis, no clubbing Skin: no rash, no lesions Laboratory Tests Test 08/11/16 04:55 White Blood Count 8.0 K/UL (4.8-10.8) Red Blood Count 5.29 M/UL (4.70-6.10) Hemoglobin 11.7 G/DL (14.2-18.0) L Hematocrit 36.9 % (42.0-52.0) L Mean Corpuscular Volume 70 FL (80-99) L Mean Corpuscular Hemoglobin 22.2 PG (27.0-31.0) L Mean Corpuscular Hemoglobin Concent 31.8 G/DL (32.0-36.0) L Red Cell Distribution Width 13.0 % (11.6-14.8) Platelet Count 327 K/UL (150-450) Mean Platelet Volume 9.1 FL (6.5-10.1) Neutrophils (%) (Auto) 53.6 % (45.0-75.0) Lymphocytes (%) (Auto) 33.3 % (20.0-45.0) Monocytes (%) (Auto) 5.5 % (1.0-10.0) Eosinophils (%) (Auto) 6.7 % (0.0-3.0) H Basophils (%) (Auto) 0.9 % (0.0-2.0) Sodium Level 140 mEQ/L (135-145) Potassium Level 4.2 mEQ/L (3.4-4.9) Chloride Level 100 mEQ/L (98-107) Carbon Dioxide Level 25 mEQ/L (20-30) Anion Gap 15 (5-15) Blood Urea Nitrogen 26 mg/dL (7-23) H Creatinine 0.6 mg/dL (0.7-1.2) L Estimat Glomerular Filtration Rate > 60 mL/min (>60) Glucose Level 133 mg/dL (74-106) H Calcium Level 8.7 mg/dL (8.6-10.2) Current Medications Medications (Trade) Dose Ordered Sig/Monalisa Route PRN Reason Start Time Stop Time Status Last Admin Dose Admin Acetaminophen (Tylenol) 650 mg Q4H PRN ORAL fever 07/28/16 15:00 08/27/16 14:59 Amikacin Protocol 1 ea 1 ea DAILY PRN MISC Per rx protocol 08/06/16 17:00 09/05/16 16:59 Amikacin Sulfate 1000 mg/Sodium Chloride 104 ml @ 200 mls/hr Q24H IV 08/06/16 20:00 08/20/16 23:59 08/10/16 22:18 Clotrimazole (Lotrimin) 1 applic THREE TIMES A DAY TOPIC 07/29/16 14:30 08/28/16 14:29 08/11/16 13:55 Finasteride (Proscar) 5 mg DAILY GT 07/29/16 09:00 08/28/16 08:59 08/11/16 08:49 Heparin Sodium (Porcine) (Heparin 5000 units/ml) 5,000 units EVERY 12 HOURS SUBQ 07/28/16 21:00 08/27/16 20:59 08/11/16 09:00 Levetiracetam (Keppra) 1,500 mg Q12HR GT 07/28/16 21:00 08/27/16 20:59 08/11/16 08:49 Nitroglycerin (Ntg) 0.4 mg Q5M X 3 DOSES PRN SL Prn Chest Pain 07/28/16 14:15 08/27/16 14:14 Ondansetron HCl (Zofran) 4 mg Q6H PRN IVP Nausea & Vomiting 07/28/16 15:00 08/27/16 14:59 Polyethylene Glycol (Miralax) 17 gm DAILYPRN PRN GT Constipation 07/28/16 15:00 08/27/16 14:59 Risperidone (RisperDAL) 1 mg BID ORAL 07/28/16 18:00 08/27/16 17:59 08/11/16 08:49 Valproic Acid (Depakene) 500 mg EVERY 12 HOURS GT 07/28/16 21:00 08/27/16 20:59 08/11/16 08:48 Vancomycin HCl (Vancomycin) 125 mg Q6H GT 07/29/16 20:00 08/12/16 23:59 08/11/16 14:38 Vancomycin HCl/ Dextrose (Vancomycin/D5W 250ml) 300 ml @ 150 mls/hr Q12HR@0100,1300 IVPB 08/11/16 13:00 08/16/16 12:59 08/11/16 14:00 Tavo Ramirez M.D. Aug 11, 2016 15:24
--- NOTE | 2016-08-11 16:20 | Pulmonology Progress Note ---
Assessment/Plan Problems: (1) Hypertension (2) Seizure (3) Sepsis (4) UTI (urinary tract infection) (5) Malfunction of gastrostomy tube (6) prison resident (7) cerebral pulsy with advanced mental retardation (8) Schizophrenia Assessment/Plan Assessment/Plan GI to follow up LOC and mentation monitored Tight BP and BG control Aspiration precautions Seizure precautions Continue ANTBX Subjective ROS Limited/Unobtainable: Yes Constitutional: Reports: fatigue Neurologic: Reports: confusion, weakness Allergies: Coded Allergies: NO KNOWN DRUG ALLERGIES (Unverified Allergy, Unknown, 08/22/15) Objective Last 24 Hour Vital Signs Date Time Temp Pulse Resp B/P Pulse Ox O2 Delivery O2 Flow Rate FiO2 08/11/16 16:07 98.7 91 20 91/66 95 Room Air 08/11/16 12:02 98.0 86 20 99/62 99 Room Air 08/11/16 08:25 98.2 88 20 101/66 99 Room Air 08/11/16 04:18 97.2 93 18 101/65 96 Room Air 08/10/16 23:51 97.9 92 19 100/60 96 Room Air 08/10/16 20:00 98.8 90 20 97/59 96 Room Air Intake and Output 08/10/16 08/11/16 19:00 07:00 Intake Total 1000 ml 715 ml Output Total 200 ml 950 ml Balance 800 ml -235 ml Free Water 160 ml 220 ml IV Total 300 ml Tube Feeding 540 ml 495 ml Output Urine Total 200 ml 950 ml # Bowel Movements 1 General Appearance: no acute distress HEENT: normocephalic, atraumatic, PERRL Respiratory/Chest: chest wall non-tender, decreased breath sounds, accessory muscle use, rhonchi Cardiovascular: normal peripheral pulses, normal rate, regular rhythm, no JVD Abdomen: normal bowel sounds, soft, non tender, no organomegaly Genitourinary: normal external genitalia Extremities: no cyanosis Skin: lesions Neurologic/Psychiatric: abnormal CN, motor weakness, sensory deficit, disoriented, unresponsiveness, depressed affect Laboratory Tests 08/11/16 04:55: White Blood Count 8.0, Red Blood Count 5.29, Hemoglobin 11.7L, Hematocrit 36.9L , Mean Corpuscular Volume 70L, Mean Corpuscular Hemoglobin 22.2L, Mean Corpuscular Hemoglobin Concent 31.8L, Red Cell Distribution Width 13.0, Platelet Count 327, Mean Platelet Volume 9.1, Neutrophils (%) (Auto) 53.6, Lymphocytes (%) (Auto) 33.3, Monocytes (%) (Auto) 5.5, Eosinophils (%) (Auto) 6.7H, Basophils (%) (Auto) 0.9, Sodium Level 140, Potassium Level 4.2, Chloride Level 100, Carbon Dioxide Level 25, Anion Gap 15, Blood Urea Nitrogen 26H, Creatinine 0.6L, Estimat Glomerular Filtration Rate > 60, Glucose Level 133H, Calcium Level 8.7 Current Medications Medications (Trade) Dose Ordered Sig/Monalisa Route PRN Reason Start Time Stop Time Status Last Admin Dose Admin Acetaminophen (Tylenol) 650 mg Q4H PRN ORAL fever 07/28/16 15:00 08/27/16 14:59 Amikacin Protocol 1 ea 1 ea DAILY PRN MISC Per rx protocol 08/06/16 17:00 09/05/16 16:59 Amikacin Sulfate 1000 mg/Sodium Chloride 104 ml @ 200 mls/hr Q24H IV 08/06/16 20:00 08/20/16 23:59 08/10/16 22:18 Clotrimazole (Lotrimin) 1 applic THREE TIMES A DAY TOPIC 07/29/16 14:30 08/28/16 14:29 08/11/16 13:55 Finasteride (Proscar) 5 mg DAILY GT 07/29/16 09:00 08/28/16 08:59 08/11/16 08:49 Heparin Sodium (Porcine) (Heparin 5000 units/ml) 5,000 units EVERY 12 HOURS SUBQ 07/28/16 21:00 08/27/16 20:59 08/11/16 09:00 Levetiracetam (Keppra) 1,500 mg Q12HR GT 07/28/16 21:00 08/27/16 20:59 08/11/16 08:49 Nitroglycerin (Ntg) 0.4 mg Q5M X 3 DOSES PRN SL Prn Chest Pain 07/28/16 14:15 08/27/16 14:14 Ondansetron HCl (Zofran) 4 mg Q6H PRN IVP Nausea & Vomiting 07/28/16 15:00 08/27/16 14:59 Polyethylene Glycol (Miralax) 17 gm DAILYPRN PRN GT Constipation 07/28/16 15:00 08/27/16 14:59 Risperidone (RisperDAL) 1 mg BID ORAL 07/28/16 18:00 08/27/16 17:59 08/11/16 08:49 Valproic Acid (Depakene) 500 mg EVERY 12 HOURS GT 07/28/16 21:00 08/27/16 20:59 08/11/16 08:48 Vancomycin HCl (Vancomycin) 125 mg Q6H GT 07/29/16 20:00 08/12/16 23:59 08/11/16 14:38 Vancomycin HCl/ Dextrose (Vancomycin/D5W 250ml) 300 ml @ 150 mls/hr Q12HR@0100,1300 IVPB 08/11/16 13:00 08/16/16 12:59 08/11/16 14:00 NEEL LUJAN Aug 11, 2016 16:20
[2016-08-12] MEDS: Vancomycin 1.5 GM in D5W 300 ML IVPB SCH ×2 (00:57→14:39)
[2016-08-12] MEDS: Vancomycin oral 125mg/2.5ml GT SCH ×4 (02:12→20:08)
[2016-08-12 04:09] VITALS: BP 96/60
[2016-08-12 08:00] VITALS: BP 91/65
[2016-08-12] MEDS: Valproic Acid 250mg/5ml Liquid GT SCH ×2 (08:22→21:31)
[2016-08-12] MEDS: levETIRAcetam 500mg/5ml Liquid GT SCH ×2 (08:22→21:31)
[2016-08-12] MEDS: Heparin 5000 units/ml inj SUBQ SCH ×2 (08:36→21:32)
[2016-08-12 12:00] VITALS: BP 100/60
--- NOTE | 2016-08-12 13:33 | General Progress Note ---
Assessment/Plan Problem List: (1) Acute lower UTI (2) Seizure disorder, complex partial ICD Codes: G40.209 - Localization-related (focal) (partial) symptomatic epilepsy and epileptic syndromes with complex partial seizures, not intractable , without status epilepticus SNOMED: 993920396 (3) Seizure ICD Codes: R56.9 - Seizure SNOMED: 00603876 (4) Hyperlipidemia ICD Codes: E78.5 - Hyperlipidemia SNOMED: 78251380 (5) Schizophrenia ICD Codes: F20.9 - Schizophrenia, unspecified SNOMED: 74296403 (6) Diabetes ICD Codes: E11.9 - Diabetes SNOMED: 39362750 (7) Sepsis ICD Codes: A41.9 - Sepsis SNOMED: 70151705 Status: progressing Assessment/Plan reviewed chart an labs dm afebrile vitals stable no wheezing reviewed chart and labs Subjective ROS Limited/Unobtainable: Yes Constitutional: Reports: no symptoms Allergies: Coded Allergies: NO KNOWN DRUG ALLERGIES (Unverified Allergy, Unknown, 08/22/15) Objective Last 24 Hour Vital Signs Date Time Temp Pulse Resp B/P Pulse Ox O2 Delivery O2 Flow Rate FiO2 08/12/16 12:00 98.2 74 20 100/60 99 Room Air 08/12/16 08:00 97.2 78 20 91/65 97 Room Air 08/12/16 04:09 98.1 93 18 96/60 97 Room Air 08/11/16 23:58 97.3 93 19 111/72 97 Room Air 08/11/16 21:00 93/63 08/11/16 20:14 97.0 91 20 89/56 100 Room Air 08/11/16 16:07 98.7 91 20 91/66 95 Room Air Intake and Output 08/11/16 08/12/16 19:00 07:00 Intake Total 645 ml 944 ml Output Total 400 ml 650 ml Balance 245 ml 294 ml Free Water 30 ml 180 ml IV Total 300 ml 404 ml Tube Feeding 315 ml 360 ml Output Urine Total 400 ml 650 ml # Voids 1 Height (Feet): 6 Height (Inches): 1.00 Weight (Pounds): 159 EENT: PERRL/EOMI Neck: normal inspection Cardiovascular: normal rate Respiratory/Chest: lungs clear Abdomen: soft Amy Martínez MD Aug 12, 2016 13:32
[2016-08-12 16:00] VITALS: BP 99/65
--- NOTE | 2016-08-12 17:43 | Infectious Diseases Prog Note ---
Assessment/Plan Problems: (1) Sepsis Assessment & Plan: continue amikacin to cover for pseudomonas aeruginosa pneumonia and vancomycin empirically for two weeks , blood culture showed no growth so far. EOT 08/21/16 (2) C. difficile colitis Assessment & Plan: will continue vancomycin orally for two weeks total , avoid antacids and Imodium, EOT 08/12/16 (3) Malfunction of percutaneous endoscopic gastrostomy (PEG) tube Assessment & Plan: S/P replacement, GI is following (4) Diabetes Assessment & Plan: recommend tight glycemic control to keep fasting less than 120, and premeal less than 130 (5) Dermatitis Assessment & Plan: due to bile acid irritation from the G tube site leakage, continue local skin care and G tube care Subjective ROS Limited/Unobtainable: Yes Allergies: Coded Allergies: NO KNOWN DRUG ALLERGIES (Unverified Allergy, Unknown, 08/22/15) Subjective he is nonverbal, demented, resting in bed, developed fever today , no diarrhea as per nursing staff. Objective Vital Signs Last 24 Hour Vital Signs Date Time Temp Pulse Resp B/P Pulse Ox O2 Delivery O2 Flow Rate FiO2 08/12/16 12:00 98.2 74 20 100/60 99 Room Air 08/12/16 08:00 97.2 78 20 91/65 97 Room Air 08/12/16 04:09 98.1 93 18 96/60 97 Room Air 08/11/16 23:58 97.3 93 19 111/72 97 Room Air 08/11/16 21:00 93/63 08/11/16 20:14 97.0 91 20 89/56 100 Room Air Height (Feet): 6 Height (Inches): 1.00 Weight (Pounds): 159 General Appearance: WD/WN, no acute distress HEENT: normocephalic, atraumatic, anicteric, mucous membranes moist, PERRL Respiratory/Chest: chest wall non-tender, lungs clear, normal breath sounds, no respiratory distress, no accessory muscle use Cardiovascular: normal peripheral pulses, normal rate, regular rhythm, no gallop/murmur Abdomen: normal bowel sounds, soft, non tender, no organomegaly, non distended , no mass, no scars Extremities: no cyanosis, no clubbing Skin: no rash, no lesions, no ulcers Current Medications Medications (Trade) Dose Ordered Sig/Monalisa Route PRN Reason Start Time Stop Time Status Last Admin Dose Admin Acetaminophen (Tylenol) 650 mg Q4H PRN ORAL fever 07/28/16 15:00 08/27/16 14:59 Amikacin Protocol 1 ea 1 ea DAILY PRN MISC Per rx protocol 08/06/16 17:00 09/05/16 16:59 Amikacin Sulfate 1000 mg/Sodium Chloride 104 ml @ 200 mls/hr Q24H IV 08/06/16 20:00 08/20/16 23:59 08/11/16 19:49 Clotrimazole (Lotrimin) 1 applic THREE TIMES A DAY TOPIC 07/29/16 14:30 08/28/16 14:29 08/12/16 14:25 Finasteride (Proscar) 5 mg DAILY GT 07/29/16 09:00 08/28/16 08:59 08/12/16 08:23 Heparin Sodium (Porcine) (Heparin 5000 units/ml) 5,000 units EVERY 12 HOURS SUBQ 07/28/16 21:00 08/27/16 20:59 08/12/16 08:36 Levetiracetam (Keppra) 1,500 mg Q12HR GT 07/28/16 21:00 08/27/16 20:59 08/12/16 08:22 Nitroglycerin (Ntg) 0.4 mg Q5M X 3 DOSES PRN SL Prn Chest Pain 07/28/16 14:15 08/27/16 14:14 Ondansetron HCl (Zofran) 4 mg Q6H PRN IVP Nausea & Vomiting 07/28/16 15:00 08/27/16 14:59 Polyethylene Glycol (Miralax) 17 gm DAILYPRN PRN GT Constipation 07/28/16 15:00 08/27/16 14:59 Risperidone (RisperDAL) 1 mg BID ORAL 07/28/16 18:00 08/27/16 17:59 08/12/16 08:23 Valproic Acid (Depakene) 500 mg EVERY 12 HOURS GT 07/28/16 21:00 08/27/16 20:59 08/12/16 08:22 Vancomycin HCl (Vancomycin) 125 mg Q6H GT 07/29/16 20:00 08/12/16 23:59 08/12/16 14:25 Vancomycin HCl/ Dextrose (Vancomycin/D5W 250ml) 300 ml @ 150 mls/hr Q12HR@0100,1300 IVPB 08/11/16 13:00 08/16/16 12:59 08/12/16 14:39 Tavo Ramirez M.D. Aug 12, 2016 17:43
--- NOTE | 2016-08-12 19:13 | Pulmonology Progress Note ---
Assessment/Plan Problems: (1) Hypertension (2) Seizure (3) Sepsis (4) UTI (urinary tract infection) (5) Malfunction of gastrostomy tube (6) longterm resident (7) cerebral pulsy with advanced mental retardation (8) Schizophrenia Assessment/Plan Plan Tight BP and BG control Aspiration precautions Seizure precautions Continue ANTBX Subjective ROS Limited/Unobtainable: Yes Neurologic: Reports: confusion, seizures, weakness Allergies: Coded Allergies: NO KNOWN DRUG ALLERGIES (Unverified Allergy, Unknown, 08/22/15) Objective Last 24 Hour Vital Signs Date Time Temp Pulse Resp B/P Pulse Ox O2 Delivery O2 Flow Rate FiO2 08/12/16 16:00 98.0 76 20 99/65 97 Room Air 08/12/16 12:00 98.2 74 20 100/60 99 Room Air 08/12/16 08:00 97.2 78 20 91/65 97 Room Air 08/12/16 04:09 98.1 93 18 96/60 97 Room Air 08/11/16 23:58 97.3 93 19 111/72 97 Room Air 08/11/16 21:00 93/63 08/11/16 20:14 97.0 91 20 89/56 100 Room Air Intake and Output 08/11/16 08/12/16 19:00 07:00 Intake Total 645 ml 944 ml Output Total 400 ml 650 ml Balance 245 ml 294 ml Free Water 30 ml 180 ml IV Total 300 ml 404 ml Tube Feeding 315 ml 360 ml Output Urine Total 400 ml 650 ml # Voids 1 General Appearance: no acute distress HEENT: normocephalic, atraumatic, PERRL Respiratory/Chest: chest wall non-tender, normal breath sounds, no respiratory distress Cardiovascular: normal peripheral pulses, normal rate, regular rhythm, no JVD Abdomen: normal bowel sounds, soft, non tender, no organomegaly, non distended Genitourinary: normal external genitalia Extremities: no cyanosis 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, no motor/sensory deficits Current Medications Medications (Trade) Dose Ordered Sig/Monalisa Route PRN Reason Start Time Stop Time Status Last Admin Dose Admin Acetaminophen (Tylenol) 650 mg Q4H PRN ORAL fever 07/28/16 15:00 08/27/16 14:59 Amikacin Protocol 1 ea 1 ea DAILY PRN MISC Per rx protocol 08/06/16 17:00 09/05/16 16:59 Amikacin Sulfate 1000 mg/Sodium Chloride 104 ml @ 200 mls/hr Q24H IV 08/06/16 20:00 08/20/16 23:59 08/11/16 19:49 Clotrimazole (Lotrimin) 1 applic THREE TIMES A DAY TOPIC 07/29/16 14:30 08/28/16 14:29 08/12/16 14:25 Finasteride (Proscar) 5 mg DAILY GT 07/29/16 09:00 08/28/16 08:59 08/12/16 08:23 Heparin Sodium (Porcine) (Heparin 5000 units/ml) 5,000 units EVERY 12 HOURS SUBQ 07/28/16 21:00 08/27/16 20:59 08/12/16 08:36 Levetiracetam (Keppra) 1,500 mg Q12HR GT 07/28/16 21:00 08/27/16 20:59 08/12/16 08:22 Nitroglycerin (Ntg) 0.4 mg Q5M X 3 DOSES PRN SL Prn Chest Pain 07/28/16 14:15 08/27/16 14:14 Ondansetron HCl (Zofran) 4 mg Q6H PRN IVP Nausea & Vomiting 07/28/16 15:00 08/27/16 14:59 Polyethylene Glycol (Miralax) 17 gm DAILYPRN PRN GT Constipation 07/28/16 15:00 08/27/16 14:59 Risperidone (RisperDAL) 1 mg BID ORAL 07/28/16 18:00 08/27/16 17:59 08/12/16 08:23 Valproic Acid (Depakene) 500 mg EVERY 12 HOURS GT 07/28/16 21:00 08/27/16 20:59 08/12/16 08:22 Vancomycin HCl (Vancomycin) 125 mg Q6H GT 07/29/16 20:00 08/12/16 23:59 08/12/16 14:25 Vancomycin HCl/ Dextrose (Vancomycin/D5W 250ml) 300 ml @ 150 mls/hr Q12HR@0100,1300 IVPB 08/11/16 13:00 08/16/16 12:59 08/12/16 14:39 NEEL LUJAN Aug 12, 2016 19:13
[2016-08-12 20:00] VITALS: BP 93/60
[2016-08-13] VITALS: BP 91/59
[2016-08-13] MEDS: Vancomycin 1.5 GM in D5W 300 ML IVPB SCH ×2 (00:43→12:32)
[2016-08-13 04:00] VITALS: BP 88/60
[2016-08-13 08:00] VITALS: BP 105/57
[2016-08-13] MEDS: Valproic Acid 250mg/5ml Liquid GT SCH ×2 (08:56→20:19)
[2016-08-13] MEDS: levETIRAcetam 500mg/5ml Liquid GT SCH ×2 (08:56→20:19)
[2016-08-13] MEDS: Heparin 5000 units/ml inj SUBQ SCH ×2 (08:58→20:19)
--- NOTE | 2016-08-13 10:33 | GI Progress Note ---
Assessment/Plan Problems: (1) C. difficile colitis ICD Codes: A04.7 - Enterocolitis due to Clostridium difficile SNOMED: 332080071 (2) Malfunction of percutaneous endoscopic gastrostomy (PEG) tube ICD Codes: K94.23 - Gastrostomy malfunction SNOMED: 287557927 (3) Pancytopenia ICD Codes: D61.818 - Other pancytopenia SNOMED: 549121814 Status: stable, unchanged Status Narrative Discussed with Dr. Light. Assessment/Plan Assessment (1) Seizure (2) Schizophrenia (3) Diabetes (4) Hypertension (5) cerebral palsy with advanced mental retardation (6) Malfunction of gastrostomy tube - leakage (7) Anemia (8) C Diff Colitis Recommendations - ok for DC per GI standpoint - Continue TF - GT replaced/site care daily/prn - Iron panel WNL - stool OB negative - Abx for C Diff - H2 Subjective Subjective limited Objective Last 24 Hour Vital Signs Date Time Temp Pulse Resp B/P Pulse Ox O2 Delivery O2 Flow Rate FiO2 08/13/16 08:00 97.5 93 19 105/57 96 Room Air 08/13/16 04:00 97.7 79 18 88/60 97 Room Air 08/13/16 00:00 97.5 94 22 91/59 97 Room Air 08/12/16 20:00 97.7 86 20 93/60 98 Room Air 08/12/16 16:00 98.0 76 20 99/65 97 Room Air 08/12/16 12:00 98.2 74 20 100/60 99 Room Air Intake and Output 08/12/16 08/13/16 19:00 07:00 Intake Total 390 ml 524 ml Output Total 350 ml 1175 ml Balance 40 ml -651 ml Free Water 30 ml 60 ml IV Total 104 ml Tube Feeding 360 ml 360 ml Output Urine Total 350 ml 1175 ml # Voids 1 # Bowel Movements 2 Height (Feet): 6 Height (Inches): 1.00 Weight (Pounds): 159 General Appearance: no apparent distress, alert Cardiovascular: normal rate Respiratory/Chest: normal breath sounds, no respiratory distress Abdominal Exam: normal bowel sounds, soft, GT site - c/d/i Chery Mcfarland N.P. Aug 13, 2016 10:33
--- NOTE | 2016-08-13 11:51 | General Progress Note ---
Assessment/Plan Problem List: (1) Acute lower UTI (2) Seizure disorder, complex partial ICD Codes: G40.209 - Localization-related (focal) (partial) symptomatic epilepsy and epileptic syndromes with complex partial seizures, not intractable , without status epilepticus SNOMED: 093458485 (3) Seizure ICD Codes: R56.9 - Seizure SNOMED: 79243112 (4) Hyperlipidemia ICD Codes: E78.5 - Hyperlipidemia SNOMED: 49626977 (5) Schizophrenia ICD Codes: F20.9 - Schizophrenia, unspecified SNOMED: 95008352 (6) Diabetes ICD Codes: E11.9 - Diabetes SNOMED: 58660075 (7) Sepsis ICD Codes: A41.9 - Sepsis SNOMED: 39241371 Status: progressing Assessment/Plan dm check bg afebrile vitlas stable no change Subjective ROS Limited/Unobtainable: Yes Constitutional: Reports: no symptoms Allergies: Coded Allergies: NO KNOWN DRUG ALLERGIES (Unverified Allergy, Unknown, 08/22/15) Objective Last 24 Hour Vital Signs Date Time Temp Pulse Resp B/P Pulse Ox O2 Delivery O2 Flow Rate FiO2 08/13/16 08:00 97.5 93 19 105/57 96 Room Air 08/13/16 04:00 97.7 79 18 88/60 97 Room Air 08/13/16 00:00 97.5 94 22 91/59 97 Room Air 08/12/16 20:00 97.7 86 20 93/60 98 Room Air 08/12/16 16:00 98.0 76 20 99/65 97 Room Air 08/12/16 12:00 98.2 74 20 100/60 99 Room Air Intake and Output 08/12/16 08/13/16 19:00 07:00 Intake Total 390 ml 524 ml Output Total 350 ml 1175 ml Balance 40 ml -651 ml Free Water 30 ml 60 ml IV Total 104 ml Tube Feeding 360 ml 360 ml Output Urine Total 350 ml 1175 ml # Voids 1 # Bowel Movements 2 Height (Feet): 6 Height (Inches): 1.00 Weight (Pounds): 159 EENT: PERRL/EOMI Neck: supple Cardiovascular: normal rate Respiratory/Chest: lungs clear Abdomen: non tender Amy Martínez MD Aug 13, 2016 11:51
[2016-08-13 12:00] VITALS: BP 95/61
--- NOTE | 2016-08-13 12:31 | Cardiac Electrophysiology PN ---
Assessment/Plan Assessment/Plan 1. Sinus Tachycardia due to sepsis and dehydration 2. Sepsis. On amikacin to cover for pseudomonas aeruginosa pneumonia and vancomycin empirically for two weeks 3. Cerebral palsy. 4. Seizure disorder. 5. Schizophrenia. 6. C. diff on GT Vanco 7. S/P Gastrostomy tube malfunction. Subjective Subjective Comfortable in NAD. Getting G tube feeding. Objective Last 24 Hour Vital Signs Date Time Temp Pulse Resp B/P Pulse Ox O2 Delivery O2 Flow Rate FiO2 08/13/16 12:00 97.9 91 19 95/61 95 Room Air 08/13/16 08:00 97.5 93 19 105/57 96 Room Air 08/13/16 04:00 97.7 79 18 88/60 97 Room Air 08/13/16 00:00 97.5 94 22 91/59 97 Room Air 08/12/16 20:00 97.7 86 20 93/60 98 Room Air 08/12/16 16:00 98.0 76 20 99/65 97 Room Air Intake and Output 08/12/16 08/13/16 19:00 07:00 Intake Total 390 ml 524 ml Output Total 350 ml 1175 ml Balance 40 ml -651 ml Free Water 30 ml 60 ml IV Total 104 ml Tube Feeding 360 ml 360 ml Output Urine Total 350 ml 1175 ml # Voids 1 # Bowel Movements 2 Current Medications Medications (Trade) Dose Ordered Sig/Monalisa Route PRN Reason Start Time Stop Time Status Last Admin Dose Admin Acetaminophen (Tylenol) 650 mg Q4H PRN ORAL fever 07/28/16 15:00 08/27/16 14:59 Amikacin Protocol 1 ea 1 ea DAILY PRN MISC Per rx protocol 08/06/16 17:00 09/05/16 16:59 Amikacin Sulfate 1000 mg/Sodium Chloride 104 ml @ 200 mls/hr Q24H IV 08/06/16 20:00 08/20/16 23:59 08/12/16 20:08 Clotrimazole (Lotrimin) 1 applic THREE TIMES A DAY TOPIC 07/29/16 14:30 08/28/16 14:29 08/13/16 08:55 Finasteride (Proscar) 5 mg DAILY GT 07/29/16 09:00 08/28/16 08:59 08/13/16 08:56 Heparin Sodium (Porcine) (Heparin 5000 units/ml) 5,000 units EVERY 12 HOURS SUBQ 07/28/16 21:00 08/27/16 20:59 08/13/16 08:58 Levetiracetam (Keppra) 1,500 mg Q12HR GT 07/28/16 21:00 08/27/16 20:59 08/13/16 08:56 Nitroglycerin (Ntg) 0.4 mg Q5M X 3 DOSES PRN SL Prn Chest Pain 07/28/16 14:15 08/27/16 14:14 Ondansetron HCl (Zofran) 4 mg Q6H PRN IVP Nausea & Vomiting 07/28/16 15:00 08/27/16 14:59 Polyethylene Glycol (Miralax) 17 gm DAILYPRN PRN GT Constipation 07/28/16 15:00 08/27/16 14:59 Risperidone (RisperDAL) 1 mg BID ORAL 07/28/16 18:00 08/27/16 17:59 08/13/16 08:56 Valproic Acid (Depakene) 500 mg EVERY 12 HOURS GT 07/28/16 21:00 08/27/16 20:59 08/13/16 08:56 Vancomycin HCl/ Dextrose (Vancomycin/D5W 250ml) 300 ml @ 150 mls/hr Q12HR@0100,1300 IVPB 08/11/16 13:00 08/16/16 12:59 08/13/16 00:43 Objective HEAD AND NECK: Shows no JVD. LUNGS: Coarse rhonchi. CARDIOVASCULAR: Irregularly irregular S1 and S2 with no gallop or murmur. Tachycardic. ABDOMEN: G-tube intact EXTREMITIES: No pitting edema. HUMPHREY FRANCO Aug 13, 2016 12:31
--- NOTE | 2016-08-13 16:05 | Infectious Diseases Prog Note ---
Assessment/Plan Problems: (1) Sepsis Assessment & Plan: continue amikacin to cover for pseudomonas aeruginosa pneumonia and vancomycin empirically for two weeks , blood culture showed no growth so far. EOT 08/21/16 (2) C. difficile colitis Assessment & Plan: received vancomycin orally for two weeks total , improved. (3) Malfunction of percutaneous endoscopic gastrostomy (PEG) tube Assessment & Plan: S/P replacement, GI is following (4) Diabetes Assessment & Plan: recommend tight glycemic control to keep fasting less than 120, and premeal less than 130 (5) Dermatitis Assessment & Plan: due to bile acid irritation from the G tube site leakage, continue local skin care and G tube care Subjective ROS Limited/Unobtainable: Yes Allergies: Coded Allergies: NO KNOWN DRUG ALLERGIES (Unverified Allergy, Unknown, 08/22/15) Subjective he is nonverbal, demented, resting in bed, developed fever today , no diarrhea as per nursing staff. Objective Vital Signs Last 24 Hour Vital Signs Date Time Temp Pulse Resp B/P Pulse Ox O2 Delivery O2 Flow Rate FiO2 08/13/16 12:00 97.9 91 19 95/61 95 Room Air 08/13/16 08:00 97.5 93 19 105/57 96 Room Air 08/13/16 04:00 97.7 79 18 88/60 97 Room Air 08/13/16 00:00 97.5 94 22 91/59 97 Room Air 08/12/16 20:00 97.7 86 20 93/60 98 Room Air Height (Feet): 6 Height (Inches): 1.00 Weight (Pounds): 159 General Appearance: WD/WN, no acute distress HEENT: normocephalic, atraumatic, anicteric, mucous membranes moist Respiratory/Chest: chest wall non-tender, lungs clear, normal breath sounds, no respiratory distress, no accessory muscle use Cardiovascular: normal peripheral pulses, normal rate, regular rhythm, no gallop/murmur Abdomen: normal bowel sounds, soft, non tender, no organomegaly, non distended , no mass Extremities: no cyanosis, no clubbing Skin: no rash, no lesions Current Medications Medications (Trade) Dose Ordered Sig/Monalisa Route PRN Reason Start Time Stop Time Status Last Admin Dose Admin Acetaminophen (Tylenol) 650 mg Q4H PRN ORAL fever 07/28/16 15:00 08/27/16 14:59 Amikacin Protocol 1 ea 1 ea DAILY PRN MISC Per rx protocol 08/06/16 17:00 09/05/16 16:59 Amikacin Sulfate 1000 mg/Sodium Chloride 104 ml @ 200 mls/hr Q24H IV 08/06/16 20:00 08/20/16 23:59 08/12/16 20:08 Clotrimazole (Lotrimin) 1 applic THREE TIMES A DAY TOPIC 07/29/16 14:30 08/28/16 14:29 08/13/16 12:32 Finasteride (Proscar) 5 mg DAILY GT 07/29/16 09:00 08/28/16 08:59 08/13/16 08:56 Heparin Sodium (Porcine) (Heparin 5000 units/ml) 5,000 units EVERY 12 HOURS SUBQ 07/28/16 21:00 08/27/16 20:59 08/13/16 08:58 Levetiracetam (Keppra) 1,500 mg Q12HR GT 07/28/16 21:00 08/27/16 20:59 08/13/16 08:56 Nitroglycerin (Ntg) 0.4 mg Q5M X 3 DOSES PRN SL Prn Chest Pain 07/28/16 14:15 08/27/16 14:14 Ondansetron HCl (Zofran) 4 mg Q6H PRN IVP Nausea & Vomiting 07/28/16 15:00 08/27/16 14:59 Polyethylene Glycol (Miralax) 17 gm DAILYPRN PRN GT Constipation 07/28/16 15:00 08/27/16 14:59 Risperidone (RisperDAL) 1 mg BID ORAL 07/28/16 18:00 08/27/16 17:59 08/13/16 08:56 Valproic Acid (Depakene) 500 mg EVERY 12 HOURS GT 07/28/16 21:00 08/27/16 20:59 08/13/16 08:56 Vancomycin HCl/ Dextrose (Vancomycin/D5W 250ml) 300 ml @ 150 mls/hr Q12HR@0100,1300 IVPB 08/11/16 13:00 08/16/16 12:59 08/13/16 12:32 Tavo Ramirez M.D. Aug 13, 2016 16:05
[2016-08-13 16:09] VITALS: BP 94/62
--- NOTE | 2016-08-13 16:21 | Pulmonology Progress Note ---
Assessment/Plan Problems: (1) Hypertension (2) Seizure (3) Sepsis (4) UTI (urinary tract infection) (5) Malfunction of gastrostomy tube (6) skilled nursing resident (7) cerebral pulsy with advanced mental retardation (8) Schizophrenia Assessment/Plan Plan Tight BP and BG control Aspiration precautions Seizure precautions Continue ANTBX Subjective Constitutional: Reports: anorexia, fatigue Neurologic: Reports: seizures, weakness Allergies: Coded Allergies: NO KNOWN DRUG ALLERGIES (Unverified Allergy, Unknown, 08/22/15) Objective Last 24 Hour Vital Signs Date Time Temp Pulse Resp B/P Pulse Ox O2 Delivery O2 Flow Rate FiO2 08/13/16 16:09 100.4 95 19 94/62 98 Room Air 08/13/16 12:00 97.9 91 19 95/61 95 Room Air 08/13/16 08:00 97.5 93 19 105/57 96 Room Air 08/13/16 04:00 97.7 79 18 88/60 97 Room Air 08/13/16 00:00 97.5 94 22 91/59 97 Room Air 08/12/16 20:00 97.7 86 20 93/60 98 Room Air Intake and Output 08/12/16 08/13/16 19:00 07:00 Intake Total 390 ml 569 ml Output Total 350 ml 1175 ml Balance 40 ml -606 ml Free Water 30 ml 60 ml IV Total 104 ml Tube Feeding 360 ml 405 ml Output Urine Total 350 ml 1175 ml # Voids 1 # Bowel Movements 2 General Appearance: no acute distress HEENT: normocephalic, atraumatic, PERRL Respiratory/Chest: chest wall non-tender, lungs clear Cardiovascular: normal peripheral pulses, normal rate, regular rhythm, no JVD Abdomen: normal bowel sounds, soft, non tender, no organomegaly Genitourinary: normal external genitalia Extremities: no cyanosis Skin: no rash, no lesions 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, no motor/sensory deficits Current Medications Medications (Trade) Dose Ordered Sig/Monalisa Route PRN Reason Start Time Stop Time Status Last Admin Dose Admin Acetaminophen (Tylenol) 650 mg Q4H PRN ORAL fever 07/28/16 15:00 08/27/16 14:59 Amikacin Protocol 1 ea 1 ea DAILY PRN MISC Per rx protocol 08/06/16 17:00 09/05/16 16:59 Amikacin Sulfate 1000 mg/Sodium Chloride 104 ml @ 200 mls/hr Q24H IV 08/06/16 20:00 08/20/16 23:59 08/12/16 20:08 Clotrimazole (Lotrimin) 1 applic THREE TIMES A DAY TOPIC 07/29/16 14:30 08/28/16 14:29 08/13/16 12:32 Finasteride (Proscar) 5 mg DAILY GT 07/29/16 09:00 08/28/16 08:59 08/13/16 08:56 Heparin Sodium (Porcine) (Heparin 5000 units/ml) 5,000 units EVERY 12 HOURS SUBQ 07/28/16 21:00 08/27/16 20:59 08/13/16 08:58 Levetiracetam (Keppra) 1,500 mg Q12HR GT 07/28/16 21:00 08/27/16 20:59 08/13/16 08:56 Nitroglycerin (Ntg) 0.4 mg Q5M X 3 DOSES PRN SL Prn Chest Pain 07/28/16 14:15 08/27/16 14:14 Ondansetron HCl (Zofran) 4 mg Q6H PRN IVP Nausea & Vomiting 07/28/16 15:00 08/27/16 14:59 Polyethylene Glycol (Miralax) 17 gm DAILYPRN PRN GT Constipation 07/28/16 15:00 08/27/16 14:59 Risperidone (RisperDAL) 1 mg BID ORAL 07/28/16 18:00 08/27/16 17:59 08/13/16 08:56 Valproic Acid (Depakene) 500 mg EVERY 12 HOURS GT 07/28/16 21:00 08/27/16 20:59 08/13/16 08:56 Vancomycin HCl/ Dextrose (Vancomycin/D5W 250ml) 300 ml @ 150 mls/hr Q12HR@0100,1300 IVPB 08/11/16 13:00 08/16/16 12:59 08/13/16 12:32 NEEL LUJAN Aug 13, 2016 16:21
[2016-08-13 20:09] VITALS: BP 95/66
[2016-08-14] VITALS: BP 100/62
[2016-08-14] MEDS: Vancomycin 1.5 GM in D5W 300 ML IVPB SCH ×2 (00:31→17:24)
[2016-08-14 04:00] VITALS: BP 92/61
[2016-08-14 07:29] LABS: BASOPHILS % (AUTO) 0.8 % (0.0-2.0); EOSINOPHILS % (AUTO) 4.9 % (0.0-3.0); LYMPHOCYTES % (AUTO) 30.5 % (20.0-45.0); MEAN CORPUSCULAR HEMOGLOBIN 21.6 PG (27.0-31.0); MEAN CORPUSCULAR VOLUME 70 FL (80-99); MEAN PLATELET VOLUME 9.5 FL (6.5-10.1); MONOCYTES % (AUTO) 9.5 % (1.0-10.0); NEUTROPHILS % (AUTO) 54.3 % (45.0-75.0); PLATELET COUNT 352 K/UL (150-450); RED BLOOD COUNT 5.73 M/UL (4.70-6.10); RED CELL DISTRIBUTION WIDTH 13.7 % (11.6-14.8); WHITE BLOOD COUNT 7.4 K/UL (4.8-10.8)
[2016-08-14 07:38] LABS: ANION GAP 13 (5-15); CALCIUM 9.3 mg/dL (8.6-10.2); CARBON DIOXIDE 28 mEQ/L (20-30); CHLORIDE 96 mEQ/L (98-107); CREATININE 0.7 mg/dL (0.7-1.2); GLOMERULAR FILTRATION RATE > 60 mL/min (>60); HEMOLYSIS 4; SODIUM 137 mEQ/L (135-145)
[2016-08-14 08:11] VITALS: BP 95/64
--- NOTE | 2016-08-14 10:28 | GI Progress Note ---
Assessment/Plan Problems: (1) C. difficile colitis ICD Codes: A04.7 - Enterocolitis due to Clostridium difficile SNOMED: 140078314 (2) Malfunction of percutaneous endoscopic gastrostomy (PEG) tube ICD Codes: K94.23 - Gastrostomy malfunction SNOMED: 488960889 (3) Pancytopenia ICD Codes: D61.818 - Other pancytopenia SNOMED: 814822920 Status: stable, unchanged Status Narrative Discussed with Dr. Light. Assessment/Plan Assessment (1) Seizure (2) Schizophrenia (3) Diabetes (4) Hypertension (5) cerebral palsy with advanced mental retardation (6) Malfunction of gastrostomy tube - leakage (7) Anemia (8) C Diff Colitis Recommendations - ok for DC per GI standpoint - Continue TF - GT replaced/site care daily/prn - Iron panel WNL - stool OB negative - Abx for C Diff - H2 Subjective Subjective limited Objective Last 24 Hour Vital Signs Date Time Temp Pulse Resp B/P Pulse Ox O2 Delivery O2 Flow Rate FiO2 08/14/16 08:11 98.4 88 20 95/64 95 Room Air 08/14/16 04:00 97.3 96 18 92/61 95 Room Air 08/14/16 00:00 97.7 97 18 100/62 96 Room Air 08/13/16 20:09 98.1 93 21 95/66 94 Room Air 08/13/16 17:29 98.1 08/13/16 16:09 100.4 95 19 94/62 98 Room Air 08/13/16 12:00 97.9 91 19 95/61 95 Room Air Intake and Output 08/13/16 08/14/16 19:00 07:00 Intake Total 930 ml 1034 ml Output Total 500 ml 600 ml Balance 430 ml 434 ml Free Water 90 ml 90 ml IV Total 300 ml 404 ml Tube Feeding 540 ml 540 ml Output Urine Total 500 ml 600 ml # Voids 1 # Bowel Movements 1 Laboratory Tests Test 08/14/16 05:45 White Blood Count 7.4 K/UL (4.8-10.8) Red Blood Count 5.73 M/UL (4.70-6.10) Hemoglobin 12.4 G/DL (14.2-18.0) L Hematocrit 39.9 % (42.0-52.0) L Mean Corpuscular Volume 70 FL (80-99) L Mean Corpuscular Hemoglobin 21.6 PG (27.0-31.0) L Mean Corpuscular Hemoglobin Concent 31.0 G/DL (32.0-36.0) L Red Cell Distribution Width 13.7 % (11.6-14.8) Platelet Count 352 K/UL (150-450) Mean Platelet Volume 9.5 FL (6.5-10.1) Neutrophils (%) (Auto) 54.3 % (45.0-75.0) Lymphocytes (%) (Auto) 30.5 % (20.0-45.0) Monocytes (%) (Auto) 9.5 % (1.0-10.0) Eosinophils (%) (Auto) 4.9 % (0.0-3.0) H Basophils (%) (Auto) 0.8 % (0.0-2.0) Sodium Level 137 mEQ/L (135-145) Potassium Level 4.0 mEQ/L (3.4-4.9) Chloride Level 96 mEQ/L (98-107) L Carbon Dioxide Level 28 mEQ/L (20-30) Anion Gap 13 (5-15) Blood Urea Nitrogen 23 mg/dL (7-23) Creatinine 0.7 mg/dL (0.7-1.2) Estimat Glomerular Filtration Rate > 60 mL/min (>60) Glucose Level 103 mg/dL (74-106) Calcium Level 9.3 mg/dL (8.6-10.2) Pro-B-Type Natriuretic Peptide 60 pg/mL (0-125) Height (Feet): 6 Height (Inches): 1.00 Weight (Pounds): 159 General Appearance: no apparent distress Cardiovascular: normal rate Respiratory/Chest: normal breath sounds, no respiratory distress Abdominal Exam: normal bowel sounds, non tender, soft, GT site - c/d/i Chery Mcfarland N.P. Aug 14, 2016 10:28
[2016-08-14] MEDS: Heparin 5000 units/ml inj SUBQ SCH ×2 (10:41→21:58)
[2016-08-14] MEDS: levETIRAcetam 500mg/5ml Liquid GT SCH ×2 (10:44→21:51)
[2016-08-14] MEDS: Valproic Acid 250mg/5ml Liquid GT SCH ×2 (10:44→21:51)
[2016-08-14 11:56] VITALS: BP 99/65
--- NOTE | 2016-08-14 13:36 | General Progress Note ---
Assessment/Plan Problem List: (1) Pneumonia ICD Codes: J18.9 - Pneumonia, unspecified organism SNOMED: 179207597 (2) Sepsis ICD Codes: A41.9 - Sepsis, unspecified organism SNOMED: 39236560 (3) Attention to G-tube ICD Codes: Z43.1 - Encounter for attention to gastrostomy SNOMED: 709493180, 341251929 (4) Altered level of consciousness ICD Codes: R40.4 - Transient alteration of awareness SNOMED: 1036051 (5) Seizure disorder, partial, intractable ICD Codes: G40.119 - Seizure disorder, partial, intractable SNOMED: 868913131 Status: stable, progressing, tolerating diet Assessment/Plan o2 pulm tx abx ot pt diet psyc care dc if clear by pulm and id Subjective Constitutional: Reports: weakness Allergies: Coded Allergies: NO KNOWN DRUG ALLERGIES (Unverified Allergy, Unknown, 08/22/15) All Systems: reviewed and negative except above Subjective sleepy calm Objective Last 24 Hour Vital Signs Date Time Temp Pulse Resp B/P Pulse Ox O2 Delivery O2 Flow Rate FiO2 08/14/16 11:56 98.0 86 20 99/65 95 Room Air 08/14/16 08:11 98.4 88 20 95/64 95 Room Air 08/14/16 04:00 97.3 96 18 92/61 95 Room Air 08/14/16 00:00 97.7 97 18 100/62 96 Room Air 08/13/16 20:09 98.1 93 21 95/66 94 Room Air 08/13/16 17:29 98.1 08/13/16 16:09 100.4 95 19 94/62 98 Room Air Intake and Output 08/13/16 08/14/16 18:59 06:59 Intake Total 930 ml 1034 ml Output Total 500 ml 600 ml Balance 430 ml 434 ml Free Water 90 ml 90 ml IV Total 300 ml 404 ml Tube Feeding 540 ml 540 ml Output Urine Total 500 ml 600 ml # Voids 1 # Bowel Movements 1 Laboratory Tests 08/14/16 05:45: White Blood Count 7.4, Red Blood Count 5.73, Hemoglobin 12.4L, Hematocrit 39.9L , Mean Corpuscular Volume 70L, Mean Corpuscular Hemoglobin 21.6L, Mean Corpuscular Hemoglobin Concent 31.0L, Red Cell Distribution Width 13.7, Platelet Count 352, Mean Platelet Volume 9.5, Neutrophils (%) (Auto) 54.3, Lymphocytes (%) (Auto) 30.5, Monocytes (%) (Auto) 9.5, Eosinophils (%) (Auto) 4.9H, Basophils (%) (Auto) 0.8, Sodium Level 137, Potassium Level 4.0, Chloride Level 96L, Carbon Dioxide Level 28, Anion Gap 13, Blood Urea Nitrogen 23, Creatinine 0.7, Estimat Glomerular Filtration Rate > 60, Glucose Level 103, Calcium Level 9.3, Pro-B-Type Natriuretic Peptide 60 Height (Feet): 6 Height (Inches): 1.00 Weight (Pounds): 159 General Appearance: lethargic EENT: normal ENT inspection Neck: normal alignment Cardiovascular: normal peripheral pulses, normal rate, regular rhythm Respiratory/Chest: chest wall non-tender, lungs clear, normal breath sounds Abdomen: normal bowel sounds, non tender, soft Extremities: normal inspection Edema: no edema noted Arm (L), no edema noted Arm (R), no edema noted Leg (L), no edema noted Leg (R), no edema noted Pedal (L), no edema noted Pedal (R), no edema noted Generalized Neurologic: motor weakness Skin: normal pigmentation, warm/dry TONYA GOOD Aug 14, 2016 13:36
--- NOTE | 2016-08-14 14:56 | Diagnostic Imaging Report ---
Indications: Cough Technique: Portable AP chest Findings: Comparison: None Cardiac silhouette remains normal in size. Pulmonary vasculature remains within normal limits. Lungs and pleura remain clear. IMPRESSION: No evidence of acute disease, unchanged
[2016-08-14 15:57] VITALS: BP 90/62
--- NOTE | 2016-08-14 16:56 | Infectious Diseases Prog Note ---
Assessment/Plan Problems: (1) Sepsis Assessment & Plan: continue amikacin to cover for pseudomonas aeruginosa pneumonia and vancomycin empirically for two weeks , blood culture showed no growth so far. EOT 08/21/16 (2) C. difficile colitis Assessment & Plan: received vancomycin orally for two weeks total , improved. (3) Malfunction of percutaneous endoscopic gastrostomy (PEG) tube Assessment & Plan: S/P replacement, GI is following (4) Diabetes Assessment & Plan: recommend tight glycemic control to keep fasting less than 120, and premeal less than 130 (5) Dermatitis Assessment & Plan: due to bile acid irritation from the G tube site leakage, continue local skin care and G tube care Subjective ROS Limited/Unobtainable: Yes Allergies: Coded Allergies: NO KNOWN DRUG ALLERGIES (Unverified Allergy, Unknown, 08/22/15) Subjective he is nonverbal, demented, resting in bed, developed fever today , no diarrhea as per nursing staff. Objective Vital Signs Last 24 Hour Vital Signs Date Time Temp Pulse Resp B/P Pulse Ox O2 Delivery O2 Flow Rate FiO2 08/14/16 15:57 98.4 87 19 90/62 97 Room Air 08/14/16 11:56 98.0 86 20 99/65 95 Room Air 08/14/16 08:11 98.4 88 20 95/64 95 Room Air 08/14/16 04:00 97.3 96 18 92/61 95 Room Air 08/14/16 00:00 97.7 97 18 100/62 96 Room Air 08/13/16 20:09 98.1 93 21 95/66 94 Room Air 08/13/16 17:29 98.1 Height (Feet): 6 Height (Inches): 1.00 Weight (Pounds): 159 General Appearance: WD/WN, no acute distress HEENT: normocephalic, atraumatic, anicteric, mucous membranes moist Respiratory/Chest: chest wall non-tender, lungs clear, normal breath sounds, no respiratory distress, no accessory muscle use Cardiovascular: normal peripheral pulses, normal rate, regular rhythm, no gallop/murmur Abdomen: normal bowel sounds, soft, non tender, no organomegaly, non distended , no mass Extremities: no cyanosis, no clubbing Skin: no rash, no lesions Laboratory Tests Test 08/14/16 05:45 White Blood Count 7.4 K/UL (4.8-10.8) Red Blood Count 5.73 M/UL (4.70-6.10) Hemoglobin 12.4 G/DL (14.2-18.0) L Hematocrit 39.9 % (42.0-52.0) L Mean Corpuscular Volume 70 FL (80-99) L Mean Corpuscular Hemoglobin 21.6 PG (27.0-31.0) L Mean Corpuscular Hemoglobin Concent 31.0 G/DL (32.0-36.0) L Red Cell Distribution Width 13.7 % (11.6-14.8) Platelet Count 352 K/UL (150-450) Mean Platelet Volume 9.5 FL (6.5-10.1) Neutrophils (%) (Auto) 54.3 % (45.0-75.0) Lymphocytes (%) (Auto) 30.5 % (20.0-45.0) Monocytes (%) (Auto) 9.5 % (1.0-10.0) Eosinophils (%) (Auto) 4.9 % (0.0-3.0) H Basophils (%) (Auto) 0.8 % (0.0-2.0) Sodium Level 137 mEQ/L (135-145) Potassium Level 4.0 mEQ/L (3.4-4.9) Chloride Level 96 mEQ/L (98-107) L Carbon Dioxide Level 28 mEQ/L (20-30) Anion Gap 13 (5-15) Blood Urea Nitrogen 23 mg/dL (7-23) Creatinine 0.7 mg/dL (0.7-1.2) Estimat Glomerular Filtration Rate > 60 mL/min (>60) Glucose Level 103 mg/dL (74-106) Calcium Level 9.3 mg/dL (8.6-10.2) Pro-B-Type Natriuretic Peptide 60 pg/mL (0-125) Current Medications Medications (Trade) Dose Ordered Sig/Monalisa Route PRN Reason Start Time Stop Time Status Last Admin Dose Admin Acetaminophen (Tylenol) 650 mg Q4H PRN ORAL fever 07/28/16 15:00 08/27/16 14:59 08/13/16 16:26 Amikacin Protocol 1 ea 1 ea DAILY PRN MISC Per rx protocol 08/06/16 17:00 09/05/16 16:59 Amikacin Sulfate 1000 mg/Sodium Chloride 104 ml @ 200 mls/hr Q24H IV 08/06/16 20:00 08/21/16 19:59 08/13/16 20:52 Clotrimazole (Lotrimin) 1 applic THREE TIMES A DAY TOPIC 07/29/16 14:30 08/28/16 14:29 08/14/16 14:08 Finasteride (Proscar) 5 mg DAILY GT 07/29/16 09:00 08/28/16 08:59 08/14/16 10:45 Heparin Sodium (Porcine) (Heparin 5000 units/ml) 5,000 units EVERY 12 HOURS SUBQ 07/28/16 21:00 08/27/16 20:59 08/14/16 10:41 Levetiracetam (Keppra) 1,500 mg Q12HR GT 07/28/16 21:00 08/27/16 20:59 08/14/16 10:44 Nitroglycerin (Ntg) 0.4 mg Q5M X 3 DOSES PRN SL Prn Chest Pain 07/28/16 14:15 08/27/16 14:14 Ondansetron HCl (Zofran) 4 mg Q6H PRN IVP Nausea & Vomiting 07/28/16 15:00 08/27/16 14:59 Polyethylene Glycol (Miralax) 17 gm DAILYPRN PRN GT Constipation 07/28/16 15:00 08/27/16 14:59 Risperidone (RisperDAL) 1 mg BID ORAL 07/28/16 18:00 08/27/16 17:59 08/14/16 10:45 Valproic Acid (Depakene) 500 mg EVERY 12 HOURS GT 07/28/16 21:00 08/27/16 20:59 08/14/16 10:44 Vancomycin HCl/ Dextrose (Vancomycin/D5W 250ml) 300 ml @ 150 mls/hr Q12HR@0100,1300 IVPB 08/11/16 13:00 08/21/16 12:59 08/14/16 00:31 Tavo Ramirez M.D. Aug 14, 2016 16:56
--- NOTE | 2016-08-14 17:04 | Cardiac Electrophysiology PN ---
Assessment/Plan Assessment/Plan 1. Sinus Tachycardia due to sepsis and dehydration. Improved. 2. Sepsis. On amikacin to cover for pseudomonas aeruginosa pneumonia and vancomycin 3. Cerebral palsy. 4. Seizure disorder. 5. Schizophrenia. 6. C. diff 7. S/P Gastrostomy tube malfunction. DW Dr Graica Subjective Subjective Comfortable in NAD. Getting G tube feeding.awaiting placement. Objective Last 24 Hour Vital Signs Date Time Temp Pulse Resp B/P Pulse Ox O2 Delivery O2 Flow Rate FiO2 08/14/16 15:57 98.4 87 19 90/62 97 Room Air 08/14/16 11:56 98.0 86 20 99/65 95 Room Air 08/14/16 08:11 98.4 88 20 95/64 95 Room Air 08/14/16 04:00 97.3 96 18 92/61 95 Room Air 08/14/16 00:00 97.7 97 18 100/62 96 Room Air 08/13/16 20:09 98.1 93 21 95/66 94 Room Air 08/13/16 17:29 98.1 Intake and Output 08/13/16 08/14/16 19:00 07:00 Intake Total 930 ml 1034 ml Output Total 500 ml 600 ml Balance 430 ml 434 ml Free Water 90 ml 90 ml IV Total 300 ml 404 ml Tube Feeding 540 ml 540 ml Output Urine Total 500 ml 600 ml # Voids 1 # Bowel Movements 1 Laboratory Tests Test 08/14/16 05:45 White Blood Count 7.4 K/UL (4.8-10.8) Red Blood Count 5.73 M/UL (4.70-6.10) Hemoglobin 12.4 G/DL (14.2-18.0) L Hematocrit 39.9 % (42.0-52.0) L Mean Corpuscular Volume 70 FL (80-99) L Mean Corpuscular Hemoglobin 21.6 PG (27.0-31.0) L Mean Corpuscular Hemoglobin Concent 31.0 G/DL (32.0-36.0) L Red Cell Distribution Width 13.7 % (11.6-14.8) Platelet Count 352 K/UL (150-450) Mean Platelet Volume 9.5 FL (6.5-10.1) Neutrophils (%) (Auto) 54.3 % (45.0-75.0) Lymphocytes (%) (Auto) 30.5 % (20.0-45.0) Monocytes (%) (Auto) 9.5 % (1.0-10.0) Eosinophils (%) (Auto) 4.9 % (0.0-3.0) H Basophils (%) (Auto) 0.8 % (0.0-2.0) Sodium Level 137 mEQ/L (135-145) Potassium Level 4.0 mEQ/L (3.4-4.9) Chloride Level 96 mEQ/L (98-107) L Carbon Dioxide Level 28 mEQ/L (20-30) Anion Gap 13 (5-15) Blood Urea Nitrogen 23 mg/dL (7-23) Creatinine 0.7 mg/dL (0.7-1.2) Estimat Glomerular Filtration Rate > 60 mL/min (>60) Glucose Level 103 mg/dL (74-106) Calcium Level 9.3 mg/dL (8.6-10.2) Pro-B-Type Natriuretic Peptide 60 pg/mL (0-125) Objective HEAD AND NECK: Shows no JVD. LUNGS: Coarse rhonchi. CARDIOVASCULAR: Irregularly irregular S1 and S2 with no gallop or murmur. Tachycardic. ABDOMEN: G-tube intact EXTREMITIES: No pitting edema. HUMPHREY FRANCO Aug 14, 2016 17:04
--- NOTE | 2016-08-14 17:09 | Pulmonology Progress Note ---
Assessment/Plan Problems: (1) Hypertension (2) Seizure (3) Sepsis (4) UTI (urinary tract infection) (5) Malfunction of gastrostomy tube (6) snf resident (7) cerebral pulsy with advanced mental retardation (8) Schizophrenia Assessment/Plan Plan Tight BP and BG control Aspiration precautions Seizure precautions Continue ANTBX Subjective ROS Limited/Unobtainable: Yes Gastrointestinal/Abdominal: Reports: bloating, nausea, vomiting Neurologic: Reports: confusion, weakness Allergies: Coded Allergies: NO KNOWN DRUG ALLERGIES (Unverified Allergy, Unknown, 08/22/15) Objective Last 24 Hour Vital Signs Date Time Temp Pulse Resp B/P Pulse Ox O2 Delivery O2 Flow Rate FiO2 08/14/16 15:57 98.4 87 19 90/62 97 Room Air 08/14/16 11:56 98.0 86 20 99/65 95 Room Air 08/14/16 08:11 98.4 88 20 95/64 95 Room Air 08/14/16 04:00 97.3 96 18 92/61 95 Room Air 08/14/16 00:00 97.7 97 18 100/62 96 Room Air 08/13/16 20:09 98.1 93 21 95/66 94 Room Air 08/13/16 17:29 98.1 Intake and Output 08/13/16 08/14/16 19:00 07:00 Intake Total 930 ml 1034 ml Output Total 500 ml 600 ml Balance 430 ml 434 ml Free Water 90 ml 90 ml IV Total 300 ml 404 ml Tube Feeding 540 ml 540 ml Output Urine Total 500 ml 600 ml # Voids 1 # Bowel Movements 1 General Appearance: no acute distress HEENT: normocephalic, atraumatic, anicteric, PERRL Respiratory/Chest: chest wall non-tender, decreased breath sounds, accessory muscle use Cardiovascular: normal peripheral pulses, normal rate, regular rhythm, no JVD Abdomen: hypoactive bowel sounds, distended, guarding, tender, rebound tenderness, other - dysfuntional feeding tube Extremities: no cyanosis Skin: rash, lesions Neurologic/Psychiatric: abnormal CN, motor weakness, sensory deficit, disoriented, unresponsiveness Laboratory Tests 08/14/16 05:45: White Blood Count 7.4, Red Blood Count 5.73, Hemoglobin 12.4L, Hematocrit 39.9L , Mean Corpuscular Volume 70L, Mean Corpuscular Hemoglobin 21.6L, Mean Corpuscular Hemoglobin Concent 31.0L, Red Cell Distribution Width 13.7, Platelet Count 352, Mean Platelet Volume 9.5, Neutrophils (%) (Auto) 54.3, Lymphocytes (%) (Auto) 30.5, Monocytes (%) (Auto) 9.5, Eosinophils (%) (Auto) 4.9H, Basophils (%) (Auto) 0.8, Sodium Level 137, Potassium Level 4.0, Chloride Level 96L, Carbon Dioxide Level 28, Anion Gap 13, Blood Urea Nitrogen 23, Creatinine 0.7, Estimat Glomerular Filtration Rate > 60, Glucose Level 103, Calcium Level 9.3, Pro-B-Type Natriuretic Peptide 60 Current Medications Medications (Trade) Dose Ordered Sig/Monalisa Route PRN Reason Start Time Stop Time Status Last Admin Dose Admin Acetaminophen (Tylenol) 650 mg Q4H PRN ORAL fever 07/28/16 15:00 08/27/16 14:59 08/13/16 16:26 Amikacin Protocol 1 ea 1 ea DAILY PRN MISC Per rx protocol 08/06/16 17:00 09/05/16 16:59 Amikacin Sulfate 1000 mg/Sodium Chloride 104 ml @ 200 mls/hr Q24H IV 08/06/16 20:00 08/21/16 19:59 08/13/16 20:52 Clotrimazole (Lotrimin) 1 applic THREE TIMES A DAY TOPIC 07/29/16 14:30 08/28/16 14:29 08/14/16 14:08 Finasteride (Proscar) 5 mg DAILY GT 07/29/16 09:00 08/28/16 08:59 08/14/16 10:45 Heparin Sodium (Porcine) (Heparin 5000 units/ml) 5,000 units EVERY 12 HOURS SUBQ 07/28/16 21:00 08/27/16 20:59 08/14/16 10:41 Levetiracetam (Keppra) 1,500 mg Q12HR GT 07/28/16 21:00 08/27/16 20:59 08/14/16 10:44 Nitroglycerin (Ntg) 0.4 mg Q5M X 3 DOSES PRN SL Prn Chest Pain 07/28/16 14:15 08/27/16 14:14 Ondansetron HCl (Zofran) 4 mg Q6H PRN IVP Nausea & Vomiting 07/28/16 15:00 08/27/16 14:59 Polyethylene Glycol (Miralax) 17 gm DAILYPRN PRN GT Constipation 07/28/16 15:00 08/27/16 14:59 Risperidone (RisperDAL) 1 mg BID ORAL 07/28/16 18:00 08/27/16 17:59 08/14/16 10:45 Valproic Acid (Depakene) 500 mg EVERY 12 HOURS GT 07/28/16 21:00 08/27/16 20:59 08/14/16 10:44 Vancomycin HCl/ Dextrose (Vancomycin/D5W 250ml) 300 ml @ 150 mls/hr Q12HR@0100,1300 IVPB 08/11/16 13:00 08/21/16 12:59 08/14/16 00:31 NEEL LUJAN Aug 14, 2016 17:09
[2016-08-14 20:02] VITALS: BP 89/60
[2016-08-15] VITALS (7 sets, daily range): BP systolic 90–99; BP diastolic 48–93
[2016-08-15] MEDS: Vancomycin 1.5 GM in D5W 300 ML IVPB SCH ×2 (00:35→13:07)
[2016-08-15 06:28] LABS: BASOPHILS % (AUTO) 1.1 % (0.0-2.0); EOSINOPHILS % (AUTO) 5.3 % (0.0-3.0); LYMPHOCYTES % (AUTO) 31.7 % (20.0-45.0); MEAN CORPUSCULAR HGB CONC 31.8 G/DL (32.0-36.0); MEAN CORPUSCULAR VOLUME 69 FL (80-99); MEAN PLATELET VOLUME 9.4 FL (6.5-10.1); MONOCYTES % (AUTO) 10.9 % (1.0-10.0); PLATELET COUNT 325 K/UL (150-450); RED BLOOD COUNT 5.46 M/UL (4.70-6.10); RED CELL DISTRIBUTION WIDTH 13.9 % (11.6-14.8); WHITE BLOOD COUNT 7.2 K/UL (4.8-10.8)
[2016-08-15 07:00] LABS: ANION GAP 14 (5-15); CARBON DIOXIDE 22 mEQ/L (20-30); CHLORIDE 97 mEQ/L (98-107); CREATININE 0.6 mg/dL (0.7-1.2); GLOMERULAR FILTRATION RATE > 60 mL/min (>60); HEMOLYSIS 3; POTASSIUM 4.7 mEQ/L (3.4-4.9); SODIUM 133 mEQ/L (135-145)
[2016-08-15] MEDS: Heparin 5000 units/ml inj SUBQ SCH ×2 (09:27→21:24)
[2016-08-15] MEDS: levETIRAcetam 500mg/5ml Liquid GT SCH ×2 (09:30→21:15)
[2016-08-15] MEDS: Valproic Acid 250mg/5ml Liquid GT SCH ×2 (09:30→21:14)
--- NOTE | 2016-08-15 10:45 | GI Progress Note ---
Assessment/Plan Problems: (1) C. difficile colitis ICD Codes: A04.7 - Enterocolitis due to Clostridium difficile SNOMED: 305229039 (2) Malfunction of percutaneous endoscopic gastrostomy (PEG) tube ICD Codes: K94.23 - Gastrostomy malfunction SNOMED: 691546126 (3) Pancytopenia ICD Codes: D61.818 - Other pancytopenia SNOMED: 749309446 Status: stable, unchanged Status Narrative Discussed with Dr. Light. Assessment/Plan Assessment (1) Seizure (2) Schizophrenia (3) Diabetes (4) Hypertension (5) cerebral palsy with advanced mental retardation (6) Malfunction of gastrostomy tube - leakage (7) Anemia (8) C Diff Colitis Recommendations - ok for DC per GI standpoint - Continue TF - GT replaced/site care daily/prn - Iron panel WNL - stool OB negative - Abx for C Diff - H2 Subjective Subjective limited Objective Last 24 Hour Vital Signs Date Time Temp Pulse Resp B/P Pulse Ox O2 Delivery O2 Flow Rate FiO2 08/15/16 08:27 98.4 94 20 92/63 97 Room Air 08/15/16 04:00 97.0 97 18 92/57 97 Room Air 08/15/16 00:00 97.3 96 18 90/48 95 Room Air 08/14/16 20:02 97.7 90 18 89/60 98 Room Air 08/14/16 15:57 98.4 87 19 90/62 97 Room Air 08/14/16 11:56 98.0 86 20 99/65 95 Room Air Intake and Output 08/14/16 08/15/16 19:00 07:00 Intake Total 540 ml 850 ml Output Total 150 ml 300 ml Balance 390 ml 550 ml Free Water 100 ml IV Total 300 ml Tube Feeding 540 ml 450 ml Output Urine Total 150 ml 300 ml # Voids 1 Laboratory Tests Test 08/15/16 04:45 White Blood Count 7.2 K/UL (4.8-10.8) Red Blood Count 5.46 M/UL (4.70-6.10) Hemoglobin 12.0 G/DL (14.2-18.0) L Hematocrit 37.7 % (42.0-52.0) L Mean Corpuscular Volume 69 FL (80-99) L Mean Corpuscular Hemoglobin 22.0 PG (27.0-31.0) L Mean Corpuscular Hemoglobin Concent 31.8 G/DL (32.0-36.0) L Red Cell Distribution Width 13.9 % (11.6-14.8) Platelet Count 325 K/UL (150-450) Mean Platelet Volume 9.4 FL (6.5-10.1) Neutrophils (%) (Auto) 51.0 % (45.0-75.0) Lymphocytes (%) (Auto) 31.7 % (20.0-45.0) Monocytes (%) (Auto) 10.9 % (1.0-10.0) H Eosinophils (%) (Auto) 5.3 % (0.0-3.0) H Basophils (%) (Auto) 1.1 % (0.0-2.0) Sodium Level 133 mEQ/L (135-145) L Potassium Level 4.7 mEQ/L (3.4-4.9) Chloride Level 97 mEQ/L (98-107) L Carbon Dioxide Level 22 mEQ/L (20-30) Anion Gap 14 (5-15) Blood Urea Nitrogen 24 mg/dL (7-23) H Creatinine 0.6 mg/dL (0.7-1.2) L Estimat Glomerular Filtration Rate > 60 mL/min (>60) Glucose Level 111 mg/dL (74-106) H Calcium Level 9.0 mg/dL (8.6-10.2) Height (Feet): 6 Height (Inches): 1.00 Weight (Pounds): 159 General Appearance: no apparent distress, alert Cardiovascular: normal rate Respiratory/Chest: normal breath sounds, no respiratory distress Abdominal Exam: normal bowel sounds, non tender, soft, GT site - c/d/i Chery Mcfarland NCalvin Aug 15, 2016 10:45
--- NOTE | 2016-08-15 14:35 | General Progress Note ---
Assessment/Plan Problem List: (1) Pneumonia ICD Codes: J18.9 - Pneumonia, unspecified organism SNOMED: 417428856 (2) Sepsis ICD Codes: A41.9 - Sepsis, unspecified organism SNOMED: 31915847 (3) Attention to G-tube ICD Codes: Z43.1 - Encounter for attention to gastrostomy SNOMED: 346722457, 714336803 (4) Altered level of consciousness ICD Codes: R40.4 - Transient alteration of awareness SNOMED: 0321530 (5) Seizure disorder, partial, intractable ICD Codes: G40.119 - Seizure disorder, partial, intractable SNOMED: 374954169 Status: stable, progressing, tolerating diet Assessment/Plan o2 pulm tx abx ot pt diet psyc care dc if clear by pulm and id Subjective Constitutional: Reports: weakness Allergies: Coded Allergies: NO KNOWN DRUG ALLERGIES (Unverified Allergy, Unknown, 08/22/15) All Systems: reviewed and negative except above Subjective sleepy calm Objective Last 24 Hour Vital Signs Date Time Temp Pulse Resp B/P Pulse Ox O2 Delivery O2 Flow Rate FiO2 08/15/16 11:48 98.2 88 20 97/57 98 Room Air 08/15/16 08:27 98.4 94 20 92/63 97 Room Air 08/15/16 04:00 97.0 97 18 92/57 97 Room Air 08/15/16 00:00 97.3 96 18 90/48 95 Room Air 08/14/16 20:02 97.7 90 18 89/60 98 Room Air 08/14/16 15:57 98.4 87 19 90/62 97 Room Air Intake and Output 08/14/16 08/15/16 19:00 07:00 Intake Total 540 ml 850 ml Output Total 150 ml 300 ml Balance 390 ml 550 ml Free Water 100 ml IV Total 300 ml Tube Feeding 540 ml 450 ml Output Urine Total 150 ml 300 ml # Voids 1 Laboratory Tests 08/15/16 04:45: White Blood Count 7.2, Red Blood Count 5.46, Hemoglobin 12.0L, Hematocrit 37.7L , Mean Corpuscular Volume 69L, Mean Corpuscular Hemoglobin 22.0L, Mean Corpuscular Hemoglobin Concent 31.8L, Red Cell Distribution Width 13.9, Platelet Count 325, Mean Platelet Volume 9.4, Neutrophils (%) (Auto) 51.0, Lymphocytes (%) (Auto) 31.7, Monocytes (%) (Auto) 10.9H, Eosinophils (%) (Auto) 5.3H, Basophils (%) (Auto) 1.1, Sodium Level 133L, Potassium Level 4.7, Chloride Level 97L, Carbon Dioxide Level 22, Anion Gap 14, Blood Urea Nitrogen 24H, Creatinine 0.6L, Estimat Glomerular Filtration Rate > 60, Glucose Level 111H, Calcium Level 9.0 Height (Feet): 6 Height (Inches): 1.00 Weight (Pounds): 159 General Appearance: lethargic EENT: normal ENT inspection Neck: normal alignment Cardiovascular: normal peripheral pulses, normal rate, regular rhythm Respiratory/Chest: chest wall non-tender, lungs clear, normal breath sounds Abdomen: normal bowel sounds, non tender, soft Extremities: normal inspection Edema: no edema noted Arm (L), no edema noted Arm (R), no edema noted Leg (L), no edema noted Leg (R), no edema noted Pedal (L), no edema noted Pedal (R), no edema noted Generalized Neurologic: motor weakness Skin: normal pigmentation, warm/dry TONYA GOOD Aug 15, 2016 14:34
--- NOTE | 2016-08-15 15:46 | Cardiac Electrophysiology PN ---
Assessment/Plan Assessment/Plan 1. Sinus Tachycardia due to sepsis and dehydration. 2. Pseudomonas aeruginosa pneumonia and sepsis. On amikacin and vancomycin 3. Cerebral palsy. 4. Seizure disorder. 5. Schizophrenia. 6. C. diff 7. S/P Gastrostomy tube malfunction. DW Dr Gracia Subjective Subjective Comfortable in NAD.On broadspectrum iv antibiotics. Objective Last 24 Hour Vital Signs Date Time Temp Pulse Resp B/P Pulse Ox O2 Delivery O2 Flow Rate FiO2 08/15/16 11:48 98.2 88 20 97/57 98 Room Air 08/15/16 08:27 98.4 94 20 92/63 97 Room Air 08/15/16 04:00 97.0 97 18 92/57 97 Room Air 08/15/16 00:00 97.3 96 18 90/48 95 Room Air 08/14/16 20:02 97.7 90 18 89/60 98 Room Air 08/14/16 15:57 98.4 87 19 90/62 97 Room Air Intake and Output 08/14/16 08/15/16 19:00 07:00 Intake Total 540 ml 850 ml Output Total 150 ml 300 ml Balance 390 ml 550 ml Free Water 100 ml IV Total 300 ml Tube Feeding 540 ml 450 ml Output Urine Total 150 ml 300 ml # Voids 1 Laboratory Tests Test 08/15/16 04:45 White Blood Count 7.2 K/UL (4.8-10.8) Red Blood Count 5.46 M/UL (4.70-6.10) Hemoglobin 12.0 G/DL (14.2-18.0) L Hematocrit 37.7 % (42.0-52.0) L Mean Corpuscular Volume 69 FL (80-99) L Mean Corpuscular Hemoglobin 22.0 PG (27.0-31.0) L Mean Corpuscular Hemoglobin Concent 31.8 G/DL (32.0-36.0) L Red Cell Distribution Width 13.9 % (11.6-14.8) Platelet Count 325 K/UL (150-450) Mean Platelet Volume 9.4 FL (6.5-10.1) Neutrophils (%) (Auto) 51.0 % (45.0-75.0) Lymphocytes (%) (Auto) 31.7 % (20.0-45.0) Monocytes (%) (Auto) 10.9 % (1.0-10.0) H Eosinophils (%) (Auto) 5.3 % (0.0-3.0) H Basophils (%) (Auto) 1.1 % (0.0-2.0) Sodium Level 133 mEQ/L (135-145) L Potassium Level 4.7 mEQ/L (3.4-4.9) Chloride Level 97 mEQ/L (98-107) L Carbon Dioxide Level 22 mEQ/L (20-30) Anion Gap 14 (5-15) Blood Urea Nitrogen 24 mg/dL (7-23) H Creatinine 0.6 mg/dL (0.7-1.2) L Estimat Glomerular Filtration Rate > 60 mL/min (>60) Glucose Level 111 mg/dL (74-106) H Calcium Level 9.0 mg/dL (8.6-10.2) Current Medications Medications (Trade) Dose Ordered Sig/Monalisa Route PRN Reason Start Time Stop Time Status Last Admin Dose Admin Acetaminophen (Tylenol) 650 mg Q4H PRN ORAL fever 07/28/16 15:00 08/27/16 14:59 08/13/16 16:26 Amikacin Protocol 1 ea 1 ea DAILY PRN MISC Per rx protocol 08/06/16 17:00 09/05/16 16:59 Amikacin Sulfate 1000 mg/Sodium Chloride 104 ml @ 200 mls/hr Q24H IV 08/06/16 20:00 08/21/16 19:59 08/14/16 22:16 Clotrimazole (Lotrimin) 1 applic THREE TIMES A DAY TOPIC 07/29/16 14:30 08/28/16 14:29 08/15/16 13:09 Finasteride (Proscar) 5 mg DAILY GT 07/29/16 09:00 08/28/16 08:59 08/15/16 09:30 Heparin Sodium (Porcine) (Heparin 5000 units/ml) 5,000 units EVERY 12 HOURS SUBQ 07/28/16 21:00 08/27/16 20:59 08/15/16 09:27 Levetiracetam (Keppra) 1,500 mg Q12HR GT 07/28/16 21:00 08/27/16 20:59 08/15/16 09:30 Nitroglycerin (Ntg) 0.4 mg Q5M X 3 DOSES PRN SL Prn Chest Pain 07/28/16 14:15 08/27/16 14:14 Ondansetron HCl (Zofran) 4 mg Q6H PRN IVP Nausea & Vomiting 07/28/16 15:00 08/27/16 14:59 Polyethylene Glycol (Miralax) 17 gm DAILYPRN PRN GT Constipation 07/28/16 15:00 08/27/16 14:59 Risperidone (RisperDAL) 1 mg BID ORAL 07/28/16 18:00 08/27/16 17:59 08/15/16 09:31 Valproic Acid (Depakene) 500 mg EVERY 12 HOURS GT 07/28/16 21:00 08/27/16 20:59 08/15/16 09:30 Vancomycin HCl/ Dextrose (Vancomycin/D5W 250ml) 300 ml @ 150 mls/hr Q12HR@0100,1300 IVPB 08/11/16 13:00 08/21/16 12:59 08/15/16 13:07 Objective HEAD AND NECK: Shows no JVD. LUNGS: Coarse rhonchi. CARDIOVASCULAR: Irregularly irregular S1 and S2 with no gallop or murmur. Tachycardic. ABDOMEN: G-tube intact EXTREMITIES: No pitting edema. HUMPHREY FRANCO Aug 15, 2016 15:46
--- NOTE | 2016-08-15 17:12 | Infectious Diseases Prog Note ---
Assessment/Plan Problems: (1) Sepsis Assessment & Plan: continue amikacin to cover for pseudomonas aeruginosa pneumonia and vancomycin empirically for two weeks , blood culture showed no growth so far. EOT 08/21/16 (2) C. difficile colitis Assessment & Plan: received vancomycin orally for two weeks total , improved. (3) Malfunction of percutaneous endoscopic gastrostomy (PEG) tube Assessment & Plan: S/P replacement, GI is following (4) Diabetes Assessment & Plan: recommend tight glycemic control to keep fasting less than 120, and premeal less than 130 (5) Dermatitis Assessment & Plan: due to bile acid irritation from the G tube site leakage, continue local skin care and G tube care Subjective ROS Limited/Unobtainable: Yes Allergies: Coded Allergies: NO KNOWN DRUG ALLERGIES (Unverified Allergy, Unknown, 08/22/15) Subjective he is nonverbal, demented, resting in bed, developed fever today , no diarrhea as per nursing staff. Objective Vital Signs Last 24 Hour Vital Signs Date Time Temp Pulse Resp B/P Pulse Ox O2 Delivery O2 Flow Rate FiO2 08/15/16 16:21 98.0 85 20 99/68 98 Room Air 08/15/16 11:48 98.2 88 20 97/57 98 Room Air 08/15/16 08:27 98.4 94 20 92/63 97 Room Air 08/15/16 04:00 97.0 97 18 92/57 97 Room Air 08/15/16 00:00 97.3 96 18 90/48 95 Room Air 08/14/16 20:02 97.7 90 18 89/60 98 Room Air Height (Feet): 6 Height (Inches): 1.00 Weight (Pounds): 159 General Appearance: WD/WN, no acute distress HEENT: normocephalic, atraumatic, anicteric, mucous membranes moist, PERRL Respiratory/Chest: chest wall non-tender, lungs clear, normal breath sounds, no respiratory distress, no accessory muscle use Cardiovascular: normal peripheral pulses, normal rate, regular rhythm, no gallop/murmur, no JVD Abdomen: normal bowel sounds, soft, non tender, no organomegaly, non distended , no mass Extremities: no cyanosis, no clubbing Skin: no rash, no lesions, no ulcers Laboratory Tests Test 08/15/16 04:45 White Blood Count 7.2 K/UL (4.8-10.8) Red Blood Count 5.46 M/UL (4.70-6.10) Hemoglobin 12.0 G/DL (14.2-18.0) L Hematocrit 37.7 % (42.0-52.0) L Mean Corpuscular Volume 69 FL (80-99) L Mean Corpuscular Hemoglobin 22.0 PG (27.0-31.0) L Mean Corpuscular Hemoglobin Concent 31.8 G/DL (32.0-36.0) L Red Cell Distribution Width 13.9 % (11.6-14.8) Platelet Count 325 K/UL (150-450) Mean Platelet Volume 9.4 FL (6.5-10.1) Neutrophils (%) (Auto) 51.0 % (45.0-75.0) Lymphocytes (%) (Auto) 31.7 % (20.0-45.0) Monocytes (%) (Auto) 10.9 % (1.0-10.0) H Eosinophils (%) (Auto) 5.3 % (0.0-3.0) H Basophils (%) (Auto) 1.1 % (0.0-2.0) Sodium Level 133 mEQ/L (135-145) L Potassium Level 4.7 mEQ/L (3.4-4.9) Chloride Level 97 mEQ/L (98-107) L Carbon Dioxide Level 22 mEQ/L (20-30) Anion Gap 14 (5-15) Blood Urea Nitrogen 24 mg/dL (7-23) H Creatinine 0.6 mg/dL (0.7-1.2) L Estimat Glomerular Filtration Rate > 60 mL/min (>60) Glucose Level 111 mg/dL (74-106) H Calcium Level 9.0 mg/dL (8.6-10.2) Current Medications Medications (Trade) Dose Ordered Sig/Monalisa Route PRN Reason Start Time Stop Time Status Last Admin Dose Admin Acetaminophen (Tylenol) 650 mg Q4H PRN ORAL fever 07/28/16 15:00 08/27/16 14:59 08/13/16 16:26 Amikacin Protocol 1 ea 1 ea DAILY PRN MISC Per rx protocol 08/06/16 17:00 09/05/16 16:59 Amikacin Sulfate 1000 mg/Sodium Chloride 104 ml @ 200 mls/hr Q24H IV 08/06/16 20:00 08/21/16 19:59 08/14/16 22:16 Clotrimazole (Lotrimin) 1 applic THREE TIMES A DAY TOPIC 07/29/16 14:30 08/28/16 14:29 08/15/16 13:09 Finasteride (Proscar) 5 mg DAILY GT 07/29/16 09:00 08/28/16 08:59 08/15/16 09:30 Heparin Sodium (Porcine) (Heparin 5000 units/ml) 5,000 units EVERY 12 HOURS SUBQ 07/28/16 21:00 08/27/16 20:59 08/15/16 09:27 Levetiracetam (Keppra) 1,500 mg Q12HR GT 07/28/16 21:00 08/27/16 20:59 08/15/16 09:30 Nitroglycerin (Ntg) 0.4 mg Q5M X 3 DOSES PRN SL Prn Chest Pain 07/28/16 14:15 08/27/16 14:14 Ondansetron HCl (Zofran) 4 mg Q6H PRN IVP Nausea & Vomiting 07/28/16 15:00 08/27/16 14:59 Polyethylene Glycol (Miralax) 17 gm DAILYPRN PRN GT Constipation 07/28/16 15:00 08/27/16 14:59 Risperidone (RisperDAL) 1 mg BID ORAL 07/28/16 18:00 08/27/16 17:59 08/15/16 09:31 Valproic Acid (Depakene) 500 mg EVERY 12 HOURS GT 07/28/16 21:00 08/27/16 20:59 08/15/16 09:30 Vancomycin HCl/ Dextrose (Vancomycin/D5W 250ml) 300 ml @ 150 mls/hr Q12HR@0100,1300 IVPB 08/11/16 13:00 08/21/16 12:59 08/15/16 13:07 Tavo Ramirez M.D. Aug 15, 2016 17:12
--- NOTE | 2016-08-15 18:00 | Pulmonology Progress Note ---
Assessment/Plan Problems: (1) Hypertension (2) Seizure (3) Sepsis (4) UTI (urinary tract infection) (5) Malfunction of gastrostomy tube (6) [facility] resident (7) cerebral pulsy with advanced mental retardation (8) Schizophrenia Assessment/Plan Plan Tight BP and BG control Aspiration precautions Seizure precautions Continue ANTBX Subjective ROS Limited/Unobtainable: No Constitutional: Reports: anorexia Gastrointestinal/Abdominal: Reports: bloating, constipation, nausea Genitourinary: Reports: dysuria, frequency, urgency Allergies: Coded Allergies: NO KNOWN DRUG ALLERGIES (Unverified Allergy, Unknown, 08/22/15) Objective Last 24 Hour Vital Signs Date Time Temp Pulse Resp B/P Pulse Ox O2 Delivery O2 Flow Rate FiO2 08/15/16 16:21 98.0 85 20 99/68 98 Room Air 08/15/16 11:48 98.2 88 20 97/57 98 Room Air 08/15/16 08:27 98.4 94 20 92/63 97 Room Air 08/15/16 04:00 97.0 97 18 92/57 97 Room Air 08/15/16 00:00 97.3 96 18 90/48 95 Room Air 08/14/16 20:02 97.7 90 18 89/60 98 Room Air Intake and Output 08/14/16 08/15/16 19:00 07:00 Intake Total 540 ml 850 ml Output Total 150 ml 300 ml Balance 390 ml 550 ml Free Water 100 ml IV Total 300 ml Tube Feeding 540 ml 450 ml Output Urine Total 150 ml 300 ml # Voids 1 General Appearance: no acute distress HEENT: normocephalic, atraumatic, anicteric, PERRL Respiratory/Chest: chest wall non-tender, decreased breath sounds, accessory muscle use Cardiovascular: normal peripheral pulses, normal rate, regular rhythm, no JVD Abdomen: absent bowel sounds, distended, guarding, tender, rebound tenderness Genitourinary: normal external genitalia Extremities: no cyanosis Skin: no rash 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 normal, no motor/sensory deficits Laboratory Tests 08/15/16 04:45: White Blood Count 7.2, Red Blood Count 5.46, Hemoglobin 12.0L, Hematocrit 37.7L , Mean Corpuscular Volume 69L, Mean Corpuscular Hemoglobin 22.0L, Mean Corpuscular Hemoglobin Concent 31.8L, Red Cell Distribution Width 13.9, Platelet Count 325, Mean Platelet Volume 9.4, Neutrophils (%) (Auto) 51.0, Lymphocytes (%) (Auto) 31.7, Monocytes (%) (Auto) 10.9H, Eosinophils (%) (Auto) 5.3H, Basophils (%) (Auto) 1.1, Sodium Level 133L, Potassium Level 4.7, Chloride Level 97L, Carbon Dioxide Level 22, Anion Gap 14, Blood Urea Nitrogen 24H, Creatinine 0.6L, Estimat Glomerular Filtration Rate > 60, Glucose Level 111H, Calcium Level 9.0 Current Medications Medications (Trade) Dose Ordered Sig/Monalisa Route PRN Reason Start Time Stop Time Status Last Admin Dose Admin Acetaminophen (Tylenol) 650 mg Q4H PRN ORAL fever 07/28/16 15:00 08/27/16 14:59 08/13/16 16:26 Amikacin Protocol 1 ea 1 ea DAILY PRN MISC Per rx protocol 08/06/16 17:00 09/05/16 16:59 Amikacin Sulfate 1000 mg/Sodium Chloride 104 ml @ 200 mls/hr Q24H IV 08/06/16 20:00 08/21/16 19:59 08/14/16 22:16 Clotrimazole (Lotrimin) 1 applic THREE TIMES A DAY TOPIC 07/29/16 14:30 08/28/16 14:29 08/15/16 17:39 Finasteride (Proscar) 5 mg DAILY GT 07/29/16 09:00 08/28/16 08:59 08/15/16 09:30 Heparin Sodium (Porcine) (Heparin 5000 units/ml) 5,000 units EVERY 12 HOURS SUBQ 07/28/16 21:00 08/27/16 20:59 08/15/16 09:27 Levetiracetam (Keppra) 1,500 mg Q12HR GT 07/28/16 21:00 08/27/16 20:59 08/15/16 09:30 Nitroglycerin (Ntg) 0.4 mg Q5M X 3 DOSES PRN SL Prn Chest Pain 07/28/16 14:15 08/27/16 14:14 Ondansetron HCl (Zofran) 4 mg Q6H PRN IVP Nausea & Vomiting 07/28/16 15:00 08/27/16 14:59 Polyethylene Glycol (Miralax) 17 gm DAILYPRN PRN GT Constipation 07/28/16 15:00 08/27/16 14:59 Risperidone (RisperDAL) 1 mg BID ORAL 07/28/16 18:00 08/27/16 17:59 08/15/16 17:39 Valproic Acid (Depakene) 500 mg EVERY 12 HOURS GT 07/28/16 21:00 08/27/16 20:59 08/15/16 09:30 Vancomycin HCl/ Dextrose (Vancomycin/D5W 250ml) 300 ml @ 150 mls/hr Q12HR@0100,1300 IVPB 08/11/16 13:00 08/21/16 12:59 08/15/16 13:07 NEEL LUJAN Aug 15, 2016 18:00
[2016-08-16] MEDS: Vancomycin 1.5 GM in D5W 300 ML IVPB SCH ×2 (00:41→12:48)
[2016-08-16 04:00] VITALS: BP 90/60
[2016-08-16 07:00] LABS: BASOPHILS % (AUTO) 1.1 % (0.0-2.0); EOSINOPHILS % (AUTO) 5.2 % (0.0-3.0); LYMPHOCYTES % (AUTO) 30.6 % (20.0-45.0); MEAN CORPUSCULAR HEMOGLOBIN 21.8 PG (27.0-31.0); MEAN CORPUSCULAR HGB CONC 31.3 G/DL (32.0-36.0); MEAN CORPUSCULAR VOLUME 70 FL (80-99); MONOCYTES % (AUTO) 10.8 % (1.0-10.0); NEUTROPHILS % (AUTO) 52.3 % (45.0-75.0); PLATELET COUNT 311 K/UL (150-450); RED BLOOD COUNT 5.34 M/UL (4.70-6.10); RED CELL DISTRIBUTION WIDTH 13.7 % (11.6-14.8)
[2016-08-16 07:41] LABS: ANION GAP 14 (5-15); CALCIUM 8.9 mg/dL (8.6-10.2); CARBON DIOXIDE 25 mEQ/L (20-30); CHLORIDE 96 mEQ/L (98-107); CREATININE 0.6 mg/dL (0.7-1.2); GLOMERULAR FILTRATION RATE > 60 mL/min (>60); HEMOLYSIS 3; POTASSIUM 4.5 mEQ/L (3.4-4.9); SODIUM 135 mEQ/L (135-145)
[2016-08-16 08:13] VITALS: BP 96/59
[2016-08-16] MEDS: Valproic Acid 250mg/5ml Liquid GT SCH ×2 (10:27→20:48)
[2016-08-16] MEDS: levETIRAcetam 500mg/5ml Liquid GT SCH ×2 (10:28→20:48)
[2016-08-16] MEDS: Heparin 5000 units/ml inj SUBQ SCH ×2 (10:29→20:49)
--- NOTE | 2016-08-16 10:33 | GI Progress Note ---
Assessment/Plan Problems: (1) C. difficile colitis ICD Codes: A04.7 - Enterocolitis due to Clostridium difficile SNOMED: 818320059 (2) Malfunction of percutaneous endoscopic gastrostomy (PEG) tube ICD Codes: K94.23 - Gastrostomy malfunction SNOMED: 901430976 (3) Pancytopenia ICD Codes: D61.818 - Other pancytopenia SNOMED: 475476880 Status: stable, unchanged Status Narrative Discussed with . Assessment/Plan Assessment (1) Seizure (2) Schizophrenia (3) Diabetes (4) Hypertension (5) cerebral palsy with advanced mental retardation (6) Malfunction of gastrostomy tube - leakage (7) Anemia (8) C Diff Colitis Recommendations - ok for DC per GI standpoint - Continue TF - GT replaced/site care daily/prn - Iron panel WNL - stool OB negative - Abx for C Diff - H2 Subjective Subjective limited Objective Last 24 Hour Vital Signs Date Time Temp Pulse Resp B/P Pulse Ox O2 Delivery O2 Flow Rate FiO2 08/16/16 08:13 97.6 90 20 96/59 98 Room Air 08/16/16 04:00 96.8 92 18 90/60 97 Room Air 08/15/16 23:08 97.5 90 18 96/93 97 08/15/16 20:00 97.5 92 18 90/62 96 Room Air 08/15/16 16:21 98.0 85 20 99/68 98 Room Air 08/15/16 11:48 98.2 88 20 97/57 98 Room Air Intake and Output 08/15/16 08/16/16 19:00 07:00 Intake Total 690 ml 914 ml Output Total 450 ml 350 ml Balance 240 ml 564 ml Free Water 150 ml 60 ml IV Total 404 ml Tube Feeding 540 ml 450 ml Output Urine Total 450 ml 350 ml # Bowel Movements 1 Laboratory Tests Test 08/16/16 05:40 White Blood Count 7.0 K/UL (4.8-10.8) Red Blood Count 5.34 M/UL (4.70-6.10) Hemoglobin 11.6 G/DL (14.2-18.0) L Hematocrit 37.1 % (42.0-52.0) L Mean Corpuscular Volume 70 FL (80-99) L Mean Corpuscular Hemoglobin 21.8 PG (27.0-31.0) L Mean Corpuscular Hemoglobin Concent 31.3 G/DL (32.0-36.0) L Red Cell Distribution Width 13.7 % (11.6-14.8) Platelet Count 311 K/UL (150-450) Mean Platelet Volume 10.0 FL (6.5-10.1) Neutrophils (%) (Auto) 52.3 % (45.0-75.0) Lymphocytes (%) (Auto) 30.6 % (20.0-45.0) Monocytes (%) (Auto) 10.8 % (1.0-10.0) H Eosinophils (%) (Auto) 5.2 % (0.0-3.0) H Basophils (%) (Auto) 1.1 % (0.0-2.0) Sodium Level 135 mEQ/L (135-145) Potassium Level 4.5 mEQ/L (3.4-4.9) Chloride Level 96 mEQ/L (98-107) L Carbon Dioxide Level 25 mEQ/L (20-30) Anion Gap 14 (5-15) Blood Urea Nitrogen 22 mg/dL (7-23) Creatinine 0.6 mg/dL (0.7-1.2) L Estimat Glomerular Filtration Rate > 60 mL/min (>60) Glucose Level 91 mg/dL (74-106) Calcium Level 8.9 mg/dL (8.6-10.2) Height (Feet): 6 Height (Inches): 1.00 Weight (Pounds): 159 General Appearance: no apparent distress, alert Cardiovascular: normal rate Respiratory/Chest: normal breath sounds, no respiratory distress Abdominal Exam: site - c/d/i Chery Mcfarland N.P. Aug 16, 2016 10:33
[2016-08-16 12:05] VITALS: BP 94/62
--- NOTE | 2016-08-16 14:58 | General Progress Note ---
Assessment/Plan Problem List: (1) Pneumonia ICD Codes: J18.9 - Pneumonia, unspecified organism SNOMED: 999625514 (2) Sepsis ICD Codes: A41.9 - Sepsis, unspecified organism SNOMED: 66466731 (3) Attention to G-tube ICD Codes: Z43.1 - Encounter for attention to gastrostomy SNOMED: 853718777, 981528566 (4) Altered level of consciousness ICD Codes: R40.4 - Transient alteration of awareness SNOMED: 4979470 (5) Seizure disorder, partial, intractable ICD Codes: G40.119 - Seizure disorder, partial, intractable SNOMED: 352811083 Status: stable, progressing, tolerating diet Assessment/Plan o2 pulm tx abx ot pt diet psyc care dc if clear by pulm and id Subjective Constitutional: Reports: weakness Allergies: Coded Allergies: NO KNOWN DRUG ALLERGIES (Unverified Allergy, Unknown, 08/22/15) All Systems: reviewed and negative except above Subjective sleepy calm Objective Last 24 Hour Vital Signs Date Time Temp Pulse Resp B/P Pulse Ox O2 Delivery O2 Flow Rate FiO2 08/16/16 12:05 98.2 95 20 94/62 98 Room Air 08/16/16 08:13 97.6 90 20 96/59 98 Room Air 08/16/16 04:00 96.8 92 18 90/60 97 Room Air 08/15/16 23:08 97.5 90 18 96/93 97 08/15/16 20:00 97.5 92 18 90/62 96 Room Air 08/15/16 16:21 98.0 85 20 99/68 98 Room Air Intake and Output 08/15/16 08/16/16 19:00 07:00 Intake Total 690 ml 914 ml Output Total 450 ml 350 ml Balance 240 ml 564 ml Free Water 150 ml 60 ml IV Total 404 ml Tube Feeding 540 ml 450 ml Output Urine Total 450 ml 350 ml # Bowel Movements 1 Laboratory Tests 08/16/16 05:40: White Blood Count 7.0, Red Blood Count 5.34, Hemoglobin 11.6L, Hematocrit 37.1L , Mean Corpuscular Volume 70L, Mean Corpuscular Hemoglobin 21.8L, Mean Corpuscular Hemoglobin Concent 31.3L, Red Cell Distribution Width 13.7, Platelet Count 311, Mean Platelet Volume 10.0, Neutrophils (%) (Auto) 52.3, Lymphocytes (%) (Auto) 30.6, Monocytes (%) (Auto) 10.8H, Eosinophils (%) (Auto) 5.2H, Basophils (%) (Auto) 1.1, Sodium Level 135, Potassium Level 4.5, Chloride Level 96L, Carbon Dioxide Level 25, Anion Gap 14, Blood Urea Nitrogen 22, Creatinine 0.6L, Estimat Glomerular Filtration Rate > 60, Glucose Level 91, Calcium Level 8.9 Height (Feet): 6 Height (Inches): 1.00 Weight (Pounds): 159 General Appearance: lethargic EENT: normal ENT inspection Neck: normal alignment Cardiovascular: normal peripheral pulses, normal rate, regular rhythm Respiratory/Chest: chest wall non-tender, lungs clear, normal breath sounds Abdomen: normal bowel sounds, non tender, soft Extremities: normal inspection Edema: no edema noted Arm (L), no edema noted Arm (R), no edema noted Leg (L), no edema noted Leg (R), no edema noted Pedal (L), no edema noted Pedal (R), no edema noted Generalized Neurologic: motor weakness Skin: normal pigmentation, warm/dry TONYA GOOD Aug 16, 2016 14:58
[2016-08-16 16:00] VITALS: BP 101/64
--- NOTE | 2016-08-16 16:03 | Cardiac Electrophysiology PN ---
Assessment/Plan Assessment/Plan 1. Sinus Tachycardia due to sepsis and dehydration. 2. Pseudomonas aeruginosa pneumonia and sepsis. On amikacin. 3. Cerebral palsy. 4. Seizure disorder.Keppra 5. Schizophrenia. Risperdal 6. C. Diff On Vancomycin. 7. S/P Gastrostomy tube malfunction. Subjective Subjective Comfortable in NAD.On broadspectrum iv antibiotics.Off tele. Objective Last 24 Hour Vital Signs Date Time Temp Pulse Resp B/P Pulse Ox O2 Delivery O2 Flow Rate FiO2 08/16/16 12:05 98.2 95 20 94/62 98 Room Air 08/16/16 08:13 97.6 90 20 96/59 98 Room Air 08/16/16 04:00 96.8 92 18 90/60 97 Room Air 08/15/16 23:08 97.5 90 18 96/93 97 08/15/16 20:00 97.5 92 18 90/62 96 Room Air 08/15/16 16:21 98.0 85 20 99/68 98 Room Air Intake and Output 08/15/16 08/16/16 19:00 07:00 Intake Total 690 ml 914 ml Output Total 450 ml 350 ml Balance 240 ml 564 ml Free Water 150 ml 60 ml IV Total 404 ml Tube Feeding 540 ml 450 ml Output Urine Total 450 ml 350 ml # Bowel Movements 1 Laboratory Tests Test 08/16/16 05:40 White Blood Count 7.0 K/UL (4.8-10.8) Red Blood Count 5.34 M/UL (4.70-6.10) Hemoglobin 11.6 G/DL (14.2-18.0) L Hematocrit 37.1 % (42.0-52.0) L Mean Corpuscular Volume 70 FL (80-99) L Mean Corpuscular Hemoglobin 21.8 PG (27.0-31.0) L Mean Corpuscular Hemoglobin Concent 31.3 G/DL (32.0-36.0) L Red Cell Distribution Width 13.7 % (11.6-14.8) Platelet Count 311 K/UL (150-450) Mean Platelet Volume 10.0 FL (6.5-10.1) Neutrophils (%) (Auto) 52.3 % (45.0-75.0) Lymphocytes (%) (Auto) 30.6 % (20.0-45.0) Monocytes (%) (Auto) 10.8 % (1.0-10.0) H Eosinophils (%) (Auto) 5.2 % (0.0-3.0) H Basophils (%) (Auto) 1.1 % (0.0-2.0) Sodium Level 135 mEQ/L (135-145) Potassium Level 4.5 mEQ/L (3.4-4.9) Chloride Level 96 mEQ/L (98-107) L Carbon Dioxide Level 25 mEQ/L (20-30) Anion Gap 14 (5-15) Blood Urea Nitrogen 22 mg/dL (7-23) Creatinine 0.6 mg/dL (0.7-1.2) L Estimat Glomerular Filtration Rate > 60 mL/min (>60) Glucose Level 91 mg/dL (74-106) Calcium Level 8.9 mg/dL (8.6-10.2) Objective HEAD AND NECK: Shows no JVD. LUNGS: Coarse rhonchi. CARDIOVASCULAR: Irregularly irregular S1 and S2 with no gallop or murmur. Tachycardic. ABDOMEN: G-tube intact EXTREMITIES: No pitting edema. HUMPHREY FRANCO Aug 16, 2016 16:03
--- NOTE | 2016-08-16 17:35 | Infectious Diseases Prog Note ---
Assessment/Plan Problems: (1) Sepsis Assessment & Plan: continue amikacin to cover for pseudomonas aeruginosa pneumonia and vancomycin empirically for two weeks , blood culture showed no growth so far. EOT 08/21/16 (2) C. difficile colitis Assessment & Plan: received vancomycin orally for two weeks total , improved. (3) Malfunction of percutaneous endoscopic gastrostomy (PEG) tube Assessment & Plan: S/P replacement, GI is following (4) Diabetes Assessment & Plan: recommend tight glycemic control to keep fasting less than 120, and premeal less than 130 (5) Dermatitis Assessment & Plan: due to bile acid irritation from the G tube site leakage, continue local skin care and G tube care Subjective ROS Limited/Unobtainable: Yes Allergies: Coded Allergies: NO KNOWN DRUG ALLERGIES (Unverified Allergy, Unknown, 08/22/15) Subjective he is nonverbal, demented, resting in bed, developed fever today , no diarrhea as per nursing staff. Objective Vital Signs Last 24 Hour Vital Signs Date Time Temp Pulse Resp B/P Pulse Ox O2 Delivery O2 Flow Rate FiO2 08/16/16 16:00 99.0 93 22 101/64 96 Room Air 08/16/16 12:05 98.2 95 20 94/62 98 Room Air 08/16/16 08:13 97.6 90 20 96/59 98 Room Air 08/16/16 04:00 96.8 92 18 90/60 97 Room Air 08/15/16 23:08 97.5 90 18 96/93 97 08/15/16 20:00 97.5 92 18 90/62 96 Room Air Height (Feet): 6 Height (Inches): 1.00 Weight (Pounds): 159 General Appearance: WD/WN, no acute distress HEENT: normocephalic, atraumatic, anicteric, mucous membranes moist Respiratory/Chest: chest wall non-tender, lungs clear, normal breath sounds, no respiratory distress, no accessory muscle use Cardiovascular: normal peripheral pulses, normal rate, regular rhythm, no gallop/murmur, no JVD Abdomen: normal bowel sounds, soft, non tender, no organomegaly, non distended , no mass Extremities: no cyanosis, no clubbing Skin: no rash, no lesions, no ulcers Laboratory Tests Test 08/16/16 05:40 White Blood Count 7.0 K/UL (4.8-10.8) Red Blood Count 5.34 M/UL (4.70-6.10) Hemoglobin 11.6 G/DL (14.2-18.0) L Hematocrit 37.1 % (42.0-52.0) L Mean Corpuscular Volume 70 FL (80-99) L Mean Corpuscular Hemoglobin 21.8 PG (27.0-31.0) L Mean Corpuscular Hemoglobin Concent 31.3 G/DL (32.0-36.0) L Red Cell Distribution Width 13.7 % (11.6-14.8) Platelet Count 311 K/UL (150-450) Mean Platelet Volume 10.0 FL (6.5-10.1) Neutrophils (%) (Auto) 52.3 % (45.0-75.0) Lymphocytes (%) (Auto) 30.6 % (20.0-45.0) Monocytes (%) (Auto) 10.8 % (1.0-10.0) H Eosinophils (%) (Auto) 5.2 % (0.0-3.0) H Basophils (%) (Auto) 1.1 % (0.0-2.0) Sodium Level 135 mEQ/L (135-145) Potassium Level 4.5 mEQ/L (3.4-4.9) Chloride Level 96 mEQ/L (98-107) L Carbon Dioxide Level 25 mEQ/L (20-30) Anion Gap 14 (5-15) Blood Urea Nitrogen 22 mg/dL (7-23) Creatinine 0.6 mg/dL (0.7-1.2) L Estimat Glomerular Filtration Rate > 60 mL/min (>60) Glucose Level 91 mg/dL (74-106) Calcium Level 8.9 mg/dL (8.6-10.2) Current Medications Medications (Trade) Dose Ordered Sig/Monalisa Route PRN Reason Start Time Stop Time Status Last Admin Dose Admin Acetaminophen (Tylenol) 650 mg Q4H PRN ORAL fever 07/28/16 15:00 08/27/16 14:59 08/13/16 16:26 Amikacin Protocol 1 ea 1 ea DAILY PRN MISC Per rx protocol 08/06/16 17:00 09/05/16 16:59 Amikacin Sulfate 1000 mg/Sodium Chloride 104 ml @ 200 mls/hr Q24H IV 08/06/16 20:00 08/21/16 19:59 08/15/16 21:19 Clotrimazole (Lotrimin) 1 applic THREE TIMES A DAY TOPIC 07/29/16 14:30 08/28/16 14:29 08/16/16 14:39 Finasteride (Proscar) 5 mg DAILY GT 07/29/16 09:00 08/28/16 08:59 08/16/16 10:28 Heparin Sodium (Porcine) (Heparin 5000 units/ml) 5,000 units EVERY 12 HOURS SUBQ 07/28/16 21:00 08/27/16 20:59 08/16/16 10:29 Levetiracetam (Keppra) 1,500 mg Q12HR GT 07/28/16 21:00 08/27/16 20:59 08/16/16 10:28 Nitroglycerin (Ntg) 0.4 mg Q5M X 3 DOSES PRN SL Prn Chest Pain 07/28/16 14:15 08/27/16 14:14 Ondansetron HCl (Zofran) 4 mg Q6H PRN IVP Nausea & Vomiting 07/28/16 15:00 08/27/16 14:59 Polyethylene Glycol (Miralax) 17 gm DAILYPRN PRN GT Constipation 07/28/16 15:00 08/27/16 14:59 Risperidone (RisperDAL) 1 mg BID ORAL 07/28/16 18:00 08/27/16 17:59 08/16/16 10:28 Valproic Acid (Depakene) 500 mg EVERY 12 HOURS GT 07/28/16 21:00 08/27/16 20:59 08/16/16 10:27 Vancomycin HCl/ Dextrose (Vancomycin/D5W 250ml) 300 ml @ 150 mls/hr Q12HR@0100,1300 IVPB 08/11/16 13:00 08/21/16 12:59 08/16/16 12:48 Tavo Ramirez M.D. Aug 16, 2016 17:35
--- NOTE | 2016-08-16 18:07 | Pulmonology Progress Note ---
Assessment/Plan Problems: (1) Hypertension (2) Seizure (3) Sepsis (4) UTI (urinary tract infection) (5) Malfunction of gastrostomy tube (6) snf resident (7) cerebral pulsy with advanced mental retardation (8) Schizophrenia Assessment/Plan improving all labs and notes revewed Tight BP and BG control Aspiration precautions Seizure precautions Continue ANTBX Subjective ROS Limited/Unobtainable: Yes Allergies: Coded Allergies: NO KNOWN DRUG ALLERGIES (Unverified Allergy, Unknown, 08/22/15) All Systems: reviewed and negative except above Objective Last 24 Hour Vital Signs Date Time Temp Pulse Resp B/P Pulse Ox O2 Delivery O2 Flow Rate FiO2 08/16/16 16:00 99.0 93 22 101/64 96 Room Air 08/16/16 12:05 98.2 95 20 94/62 98 Room Air 08/16/16 08:13 97.6 90 20 96/59 98 Room Air 08/16/16 04:00 96.8 92 18 90/60 97 Room Air 08/15/16 23:08 97.5 90 18 96/93 97 08/15/16 20:00 97.5 92 18 90/62 96 Room Air Intake and Output 08/15/16 08/16/16 19:00 07:00 Intake Total 690 ml 914 ml Output Total 450 ml 350 ml Balance 240 ml 564 ml Free Water 150 ml 60 ml IV Total 404 ml Tube Feeding 540 ml 450 ml Output Urine Total 450 ml 350 ml # Bowel Movements 1 General Appearance: WD/WN HEENT: normocephalic Respiratory/Chest: chest wall non-tender, lungs clear Cardiovascular: normal peripheral pulses, normal rate Abdomen: normal bowel sounds, soft, non tender Skin: no rash 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 Lymphatic: no neck adenopathy Laboratory Tests 08/16/16 05:40: White Blood Count 7.0, Red Blood Count 5.34, Hemoglobin 11.6L, Hematocrit 37.1L , Mean Corpuscular Volume 70L, Mean Corpuscular Hemoglobin 21.8L, Mean Corpuscular Hemoglobin Concent 31.3L, Red Cell Distribution Width 13.7, Platelet Count 311, Mean Platelet Volume 10.0, Neutrophils (%) (Auto) 52.3, Lymphocytes (%) (Auto) 30.6, Monocytes (%) (Auto) 10.8H, Eosinophils (%) (Auto) 5.2H, Basophils (%) (Auto) 1.1, Sodium Level 135, Potassium Level 4.5, Chloride Level 96L, Carbon Dioxide Level 25, Anion Gap 14, Blood Urea Nitrogen 22, Creatinine 0.6L, Estimat Glomerular Filtration Rate > 60, Glucose Level 91, Calcium Level 8.9 Current Medications Medications (Trade) Dose Ordered Sig/Monalisa Route PRN Reason Start Time Stop Time Status Last Admin Dose Admin Acetaminophen (Tylenol) 650 mg Q4H PRN ORAL fever 07/28/16 15:00 08/27/16 14:59 08/13/16 16:26 Amikacin Protocol 1 ea 1 ea DAILY PRN MISC Per rx protocol 08/06/16 17:00 09/05/16 16:59 Amikacin Sulfate 1000 mg/Sodium Chloride 104 ml @ 200 mls/hr Q24H IV 08/06/16 20:00 08/21/16 19:59 08/15/16 21:19 Clotrimazole (Lotrimin) 1 applic THREE TIMES A DAY TOPIC 07/29/16 14:30 08/28/16 14:29 08/16/16 17:54 Finasteride (Proscar) 5 mg DAILY GT 07/29/16 09:00 08/28/16 08:59 08/16/16 10:28 Heparin Sodium (Porcine) (Heparin 5000 units/ml) 5,000 units EVERY 12 HOURS SUBQ 07/28/16 21:00 08/27/16 20:59 08/16/16 10:29 Levetiracetam (Keppra) 1,500 mg Q12HR GT 07/28/16 21:00 08/27/16 20:59 08/16/16 10:28 Nitroglycerin (Ntg) 0.4 mg Q5M X 3 DOSES PRN SL Prn Chest Pain 07/28/16 14:15 08/27/16 14:14 Ondansetron HCl (Zofran) 4 mg Q6H PRN IVP Nausea & Vomiting 07/28/16 15:00 08/27/16 14:59 Polyethylene Glycol (Miralax) 17 gm DAILYPRN PRN GT Constipation 07/28/16 15:00 08/27/16 14:59 Risperidone (RisperDAL) 1 mg BID ORAL 07/28/16 18:00 08/27/16 17:59 08/16/16 17:54 Valproic Acid (Depakene) 500 mg EVERY 12 HOURS GT 07/28/16 21:00 08/27/16 20:59 08/16/16 10:27 Vancomycin HCl/ Dextrose (Vancomycin/D5W 250ml) 300 ml @ 150 mls/hr Q12HR@0100,1300 IVPB 08/11/16 13:00 08/21/16 12:59 08/16/16 12:48 NEEL LUJAN Aug 16, 2016 18:07
[2016-08-16 20:00] VITALS: BP 90/60
--- NOTE | 2016-08-16 20:57 | Progress Note ---
DATE: 07/30/2016 PSYCHIATRIC PROGRESS NOTE SUBJECTIVE: The patient is a 60-year-old male patient, who is confused and disorganized. Poor cognition secondary to the progression of his medical illness. PLAN: We will continue treatment per G-tube q.12 hours and Risperdal 1 mg twice a day. The chart was reviewed and discussed with staff. Enrrique Escudero M.D. DR: JAVIER JOB#: [id number] CC:
--- NOTE | 2016-08-16 21:08 | Progress Note ---
DATE: 07/31/2016 SUBJECTIVE: This is a 60-year-old patient. PLAN: The patient is treated with Depakene 500 mg per G-tube q.12 hours and Risperdal 1 mg twice a day. Enrrique Escudero M.D. DR: DEMETRIUS JOB#: [id number] CC:
--- NOTE | 2016-08-16 21:17 | Progress Note ---
DATE: 08/05/2016 SUBJECTIVE: This is a 60-year-old patient. He is confused and disorganized. PLAN: Continue treatment with Depakene 500 mg per G-tube q.12 hours and Risperdal 1 mg twice a day. Chart reviewed and discussed with staff. Seen and assessed at bedside. Enrrique Escudero M.D. DR: DEMETRIUS JOB#: [id number] CC:
--- NOTE | 2016-08-16 21:17 | Progress Note ---
DATE: 08/03/2016 PSYCHIATRIC PROGRESS NOTE PLAN: We will treat this patient with 500 mg per G-tube q.12 hours and Risperdal 1 mg twice a day to reduce any further decline in his cognition and reduce agitation. Chart was reviewed and discussed with staff. He was seen and assessed in his room. Enrrique Escudero M.D. DR: JAVIER JOB#: [id number] CC:
--- NOTE | 2016-08-16 21:17 | Progress Note ---
DATE: 08/01/2016 SUBJECTIVE: This is a 60-year-old male. PLAN: The patient is treated with Depakene 500 mg per G-tube q.12 hours and Risperdal 1 mg twice a day. Chart reviewed and discussed with staff. schizoaffective bipolar type. Enrrique Escudero M.D. DR: DEMETRIUS JOB#: [id number] CC:
--- NOTE | 2016-08-16 21:27 | Progress Note ---
DATE: 08/10/2016 SUBJECTIVE: This is a 60-year-old male patient. PLAN: Plan for this patient is to treat him with a psych med regimen consistent of Depakene 500 mg per G-tube q.12 hours and Risperdal 1 mg twice a day. Chart reviewed. Discussed with staff. Seen and assessed at bedside. Enrrique Escudero M.D. DR: DEMETRIUS JOB#: [id number] CC:
--- NOTE | 2016-08-16 21:27 | Progress Note ---
DATE: 08/02/2016 SUBJECTIVE: This is a 60-year-old male treated with Depakote 500 mg twice a day and 1 mg twice a day to stabilize his mood. Chart reviewed and discussed with staff. The patient is seen and assessed in his room. Enrrique Escudero M.D. DR: Teodora JOB#: [id number] CC:
--- NOTE | 2016-08-16 21:28 | Progress Note ---
DATE: 08/12/2016 SUBJECTIVE: The patient is a 60-year-old male patient. The patient is on Depakote 500 mg per G-tube q.12 h. and Risperdal 1 mg twice a day. Chart was reviewed and discussed with staff. The patient was seen and assessed at bedside. Enrrique Escudero M.D. DR: JORDAN JOB#: [id number] CC:
--- NOTE | 2016-08-16 21:28 | Progress Note ---
DATE: 08/08/2016 SUBJECTIVE: The patient is treated with Depakene 500 mg p.o. per G-tube q.12 h. and Risperdal 1 mg twice a day. PLAN: Chart reviewed. Discussed with staff. Seen and assessed at bedside. Continue treatment with Risperdal 1 mg twice a day and Depakene 500 mg per G-tube q.12 h. Enrrique Escudero M.D. DR: MARKELL JOB#: [id number] CC:
--- NOTE | 2016-08-16 21:28 | Progress Note ---
DATE: 08/04/2016 SUBJECTIVE: The patient is seen and assessed in his room. PLAN: Plan is to treat him with Depakene 500 mg per G-tube q.12 h. and Risperdal 1 mg twice a day. Chart reviewed and discussed with staff. Seen and assessed at bedside. Enrrique Escudero M.D. DR: RANI JOB#: [id number] CC:
--- NOTE | 2016-08-16 21:37 | Progress Note ---
DATE: 08/09/2016 We will treat this patient with Depakene 500 mg twice a day per G-tube q.12 h. and Risperdal 1 mg twice a day. Chart reviewed and discussed with staff. Seen and assessed at bedside. Continue treatment with psychotropic medications to stabilize his mood. Encourage him to interact appropriately with staff. Supportive therapy provided. Enrrique Escudero M.D. DR: MUKUND JOB#: [id number] CC:
--- NOTE | 2016-08-16 21:37 | Progress Note ---
DATE: 08/11/2016 SUBJECTIVE: This is a 60-year-old male patient. PLAN: Treat him with Depakene 500 mg per G-tube q.12 hours and Risperdal 1 mg twice a day to stabilize his mood. with psychiatric problems. The patient is seen and assessed in his room. Chart reviewed. Discussed with staff. Enrrique Escudero M.D. DR: DEMETRIUS JOB#: [id number] CC:
--- NOTE | 2016-08-16 21:47 | Progress Note ---
DATE: 08/07/2016 SUBJECTIVE: This is a 60-year-old patient. PLAN: The patient is treated with Depakene 500 mg per G-tube q.12 hours and Risperdal 1 mg twice a day. Chart reviewed and discussed with staff. Seen and assessed at bedside. Enrrique Escudero M.D. DR: DEMETRIUS JOB#: [id number] CC:
--- NOTE | 2016-08-16 21:58 | Progress Note ---
DATE: 08/06/2016 PLAN: The patient is treated with Risperdal 1 mg twice a day and Depakene 500 mg q.12 hours. Chart was reviewed and discussed with staff. He was seen and assessed at bedside. Enrrique Escudero M.D. DR: JAVIER JOB#: [id number] CC:
[2016-08-17] VITALS (7 sets, daily range): BP systolic 91–122; BP diastolic 61–71
[2016-08-17] MEDS: Vancomycin 1.5 GM in D5W 300 ML IVPB SCH ×2 (01:42→14:28)
[2016-08-17 07:12] LABS: BASOPHILS % (AUTO) 1.1 % (0.0-2.0); EOSINOPHILS % (AUTO) 4.6 % (0.0-3.0); MEAN CORPUSCULAR HEMOGLOBIN 21.7 PG (27.0-31.0); MEAN CORPUSCULAR HGB CONC 31.3 G/DL (32.0-36.0); MEAN CORPUSCULAR VOLUME 70 FL (80-99); MEAN PLATELET VOLUME 10.5 FL (6.5-10.1); NEUTROPHILS % (AUTO) 56.3 % (45.0-75.0); PLATELET COUNT 312 K/UL (150-450); RED BLOOD COUNT 5.66 M/UL (4.70-6.10); RED CELL DISTRIBUTION WIDTH 13.8 % (11.6-14.8); WHITE BLOOD COUNT 7.9 K/UL (4.8-10.8)
--- NOTE | 2016-08-17 07:19 | Pulmonology Progress Note ---
Assessment/Plan Assessment/Plan ASSESSMENT sepsis ST 2 to sepsis and dehydration -resolved C dif colitis PNA dehydration dysphagia, G tube malfunctioning G tube, s/p replacement seizure disorder cerebral palsy with advanced mental retardation anemia PLAN OF CARE MS floor tachycardia resolved cardio follows, BP on low side,baseline off IVF abx, ID follows stool+ Cdif, Vanco po x 2 weeks total sputum cx + Pseudomonas- colonized as per ID urine and blood cx negative CXR negative O2 HHN prn strict aspiration precautions, GT feeding, monitor tolerance, site care secure precautions, continue Depakote and Keppra DVT prophylaxis monitor HH, at baseline, stool OB negative dc plan as per PMD case discussed and evaluated by supervising physician Subjective Allergies: Coded Allergies: NO KNOWN DRUG ALLERGIES (Unverified Allergy, Unknown, 08/22/15) Subjective afebrile, no leukocytosis, no signs of respiratory distress diarrhea decreased tachy resolved tolerates TF Objective Last 24 Hour Vital Signs Date Time Temp Pulse Resp B/P Pulse Ox O2 Delivery O2 Flow Rate FiO2 08/17/16 03:56 97.2 97 18 91/67 97 Room Air 08/17/16 00:00 97.7 99 18 94/61 95 Room Air 08/16/16 20:00 98.1 94 20 90/60 96 Room Air 08/16/16 16:00 99.0 93 22 101/64 96 Room Air 08/16/16 12:05 98.2 95 20 94/62 98 Room Air 08/16/16 08:13 97.6 90 20 96/59 98 Room Air Intake and Output 08/16/16 08/17/16 18:59 06:59 Intake Total 705 ml 910 ml Output Total 800 ml 1700 ml Balance -95 ml -790 ml Intake Oral 100 ml Free Water 160 ml 70 ml IV Total 300 ml Tube Feeding 445 ml 540 ml Output Urine Total 800 ml 1700 ml # Voids 1 1 # Bowel Movements 1 2 Objective General Appearance: no acute distress, cachetic, bedridden, nonverbal, chronically ill looking HEENT: normocephalic, atraumatic, anicteric, no JVD Respiratory/Chest: no respiratory distress, no accessory muscle use, decreased breath sounds Cardiovascular: normal rate, regularly irregular Abdomen: normal bowel sounds, soft, non tender, non distended, G tube Genitourinary: normal external genitalia Extremities: no edema Neurologic/Psychiatric: abnormal gait, bedridden , contracted LE, bedridden, nonverbal Musculoskeletal: atrophy BLE with contractures Laboratory Tests 08/17/16 04:55: White Blood Count 7.9, Red Blood Count 5.66, Hemoglobin 12.3L, Hematocrit 39.3L , Mean Corpuscular Volume 70L, Mean Corpuscular Hemoglobin 21.7L, Mean Corpuscular Hemoglobin Concent 31.3L, Red Cell Distribution Width 13.8, Platelet Count 312, Mean Platelet Volume 10.5H, Neutrophils (%) (Auto) 56.3, Lymphocytes (%) (Auto) 25.0, Monocytes (%) (Auto) 13.0H, Eosinophils (%) (Auto) 4.6H, Basophils (%) (Auto) 1.1, Sodium Level [Pending], Potassium Level [Pending ], Chloride Level [Pending], Carbon Dioxide Level [Pending], Blood Urea Nitrogen [Pending], Creatinine [Pending], Estimat Glomerular Filtration Rate [ Pending], Glucose Level [Pending], Calcium Level [Pending] Current Medications Medications (Trade) Dose Ordered Sig/Monalisa Route PRN Reason Start Time Stop Time Status Last Admin Dose Admin Acetaminophen (Tylenol) 650 mg Q4H PRN ORAL fever 07/28/16 15:00 08/27/16 14:59 08/13/16 16:26 Amikacin Protocol 1 ea 1 ea DAILY PRN MISC Per rx protocol 08/06/16 17:00 09/05/16 16:59 Amikacin Sulfate 1000 mg/Sodium Chloride 104 ml @ 200 mls/hr Q24H IV 08/06/16 20:00 08/21/16 19:59 08/16/16 20:47 Clotrimazole (Lotrimin) 1 applic THREE TIMES A DAY TOPIC 07/29/16 14:30 08/28/16 14:29 08/16/16 17:54 Finasteride (Proscar) 5 mg DAILY GT 07/29/16 09:00 08/28/16 08:59 08/16/16 10:28 Heparin Sodium (Porcine) (Heparin 5000 units/ml) 5,000 units EVERY 12 HOURS SUBQ 07/28/16 21:00 08/27/16 20:59 1/19/17 20:49 Levetiracetam (Keppra) 1,500 mg Q12HR GT 07/28/16 21:00 08/27/16 20:59 08/16/16 20:48 Nitroglycerin (Ntg) 0.4 mg Q5M X 3 DOSES PRN SL Prn Chest Pain 07/28/16 14:15 08/27/16 14:14 Ondansetron HCl (Zofran) 4 mg Q6H PRN IVP Nausea & Vomiting 07/28/16 15:00 08/27/16 14:59 Polyethylene Glycol (Miralax) 17 gm DAILYPRN PRN GT Constipation 07/28/16 15:00 08/27/16 14:59 Risperidone (RisperDAL) 1 mg BID ORAL 07/28/16 18:00 08/27/16 17:59 08/16/16 17:54 Valproic Acid (Depakene) 500 mg EVERY 12 HOURS GT 07/28/16 21:00 08/27/16 20:59 08/16/16 20:48 Vancomycin HCl/ Dextrose (Vancomycin/D5W 250ml) 300 ml @ 150 mls/hr Q12HR@0100,1300 IVPB 08/11/16 13:00 08/21/16 12:59 08/17/16 01:42 Thang Hernandezhayley)Lia NP Aug 17, 2016 07:19
[2016-08-17 07:22] LABS: ANION GAP 14 (5-15); CARBON DIOXIDE 24 mEQ/L (20-30); CHLORIDE 98 mEQ/L (98-107); CREATININE 0.6 mg/dL (0.7-1.2); GLOMERULAR FILTRATION RATE > 60 mL/min (>60); HEMOLYSIS 2; POTASSIUM 4.5 mEQ/L (3.4-4.9); SODIUM 136 mEQ/L (135-145)
[2016-08-17] MEDS ORDERED: DuoNeb 0.5-3(2.5)mg/3ml neb HHN PRN (07:30)
[2016-08-17] MEDS: Heparin 5000 units/ml inj SUBQ SCH ×2 (09:43→20:10)
[2016-08-17] MEDS: levETIRAcetam 500mg/5ml Liquid GT SCH ×2 (09:44→20:10)
[2016-08-17] MEDS: Valproic Acid 250mg/5ml Liquid GT SCH ×2 (11:01→20:09)
--- NOTE | 2016-08-17 11:37 | GI Progress Note ---
Assessment/Plan Problems: (1) C. difficile colitis ICD Codes: A04.7 - Enterocolitis due to Clostridium difficile SNOMED: 312342517 (2) Malfunction of percutaneous endoscopic gastrostomy (PEG) tube ICD Codes: K94.23 - Gastrostomy malfunction SNOMED: 316877182 (3) Pancytopenia ICD Codes: D61.818 - Other pancytopenia SNOMED: 074395865 Status: stable, unchanged Status Narrative Discussed with Dr. Light. Assessment/Plan Assessment (1) Seizure (2) Schizophrenia (3) Diabetes (4) Hypertension (5) cerebral palsy with advanced mental retardation (6) Malfunction of gastrostomy tube - leakage (7) Anemia (8) C Diff Colitis Recommendations - ok for DC per GI standpoint - Continue TF - GT replaced/site care daily/prn - Iron panel WNL - stool OB negative - Abx for C Diff - H2 Subjective Subjective limited Objective Last 24 Hour Vital Signs Date Time Temp Pulse Resp B/P Pulse Ox O2 Delivery O2 Flow Rate FiO2 08/17/16 08:30 98.2 96 18 110/69 98 Room Air 08/17/16 03:56 97.2 97 18 91/67 97 Room Air 08/17/16 00:00 97.7 99 18 94/61 95 Room Air 08/16/16 20:00 98.1 94 20 90/60 96 Room Air 08/16/16 16:00 99.0 93 22 101/64 96 Room Air 08/16/16 12:05 98.2 95 20 94/62 98 Room Air Intake and Output 08/16/16 08/17/16 19:00 07:00 Intake Total 750 ml 865 ml Output Total 800 ml 1700 ml Balance -50 ml -835 ml Intake Oral 100 ml Free Water 160 ml 70 ml IV Total 300 ml Tube Feeding 490 ml 495 ml Output Urine Total 800 ml 1700 ml # Voids 1 1 # Bowel Movements 1 2 Laboratory Tests Test 08/17/16 04:55 White Blood Count 7.9 K/UL (4.8-10.8) Red Blood Count 5.66 M/UL (4.70-6.10) Hemoglobin 12.3 G/DL (14.2-18.0) L Hematocrit 39.3 % (42.0-52.0) L Mean Corpuscular Volume 70 FL (80-99) L Mean Corpuscular Hemoglobin 21.7 PG (27.0-31.0) L Mean Corpuscular Hemoglobin Concent 31.3 G/DL (32.0-36.0) L Red Cell Distribution Width 13.8 % (11.6-14.8) Platelet Count 312 K/UL (150-450) Mean Platelet Volume 10.5 FL (6.5-10.1) H Neutrophils (%) (Auto) 56.3 % (45.0-75.0) Lymphocytes (%) (Auto) 25.0 % (20.0-45.0) Monocytes (%) (Auto) 13.0 % (1.0-10.0) H Eosinophils (%) (Auto) 4.6 % (0.0-3.0) H Basophils (%) (Auto) 1.1 % (0.0-2.0) Sodium Level 136 mEQ/L (135-145) Potassium Level 4.5 mEQ/L (3.4-4.9) Chloride Level 98 mEQ/L (98-107) Carbon Dioxide Level 24 mEQ/L (20-30) Anion Gap 14 (5-15) Blood Urea Nitrogen 17 mg/dL (7-23) Creatinine 0.6 mg/dL (0.7-1.2) L Estimat Glomerular Filtration Rate > 60 mL/min (>60) Glucose Level 121 mg/dL (74-106) H Calcium Level 9.0 mg/dL (8.6-10.2) Height (Feet): 6 Height (Inches): 1.00 Weight (Pounds): 159 General Appearance: alert Cardiovascular: normal rate Respiratory/Chest: normal breath sounds, no respiratory distress Abdominal Exam: GT site - c/d/i Objective no changes Chery Mcfarland N.P. Aug 17, 2016 11:37
[2016-08-17] MEDS ORDERED: Amikacin 1,000 MG in NS 110 ML IV SCH (14:15)
--- NOTE | 2016-08-17 14:19 | General Progress Note ---
Assessment/Plan Problem List: (1) Pneumonia ICD Codes: J18.9 - Pneumonia, unspecified organism SNOMED: 460658044 (2) Sepsis ICD Codes: A41.9 - Sepsis, unspecified organism SNOMED: 04800349 (3) Attention to G-tube ICD Codes: Z43.1 - Encounter for attention to gastrostomy SNOMED: 896356442, 657255858 (4) Altered level of consciousness ICD Codes: R40.4 - Transient alteration of awareness SNOMED: 3298191 (5) Seizure disorder, partial, intractable ICD Codes: G40.119 - Seizure disorder, partial, intractable SNOMED: 066798137 Status: stable, progressing, tolerating diet Assessment/Plan o2 pulm tx abx ot pt diet psyc care dc if clear by pulm and id Subjective Constitutional: Reports: weakness Allergies: Coded Allergies: NO KNOWN DRUG ALLERGIES (Unverified Allergy, Unknown, 08/22/15) All Systems: reviewed and negative except above Subjective sleepy calm Objective Last 24 Hour Vital Signs Date Time Temp Pulse Resp B/P Pulse Ox O2 Delivery O2 Flow Rate FiO2 08/17/16 11:51 98.4 95 20 122/71 96 Room Air 08/17/16 08:30 98.2 96 18 110/69 98 Room Air 08/17/16 03:56 97.2 97 18 91/67 97 Room Air 08/17/16 00:00 97.7 99 18 94/61 95 Room Air 08/16/16 20:00 98.1 94 20 90/60 96 Room Air 08/16/16 16:00 99.0 93 22 101/64 96 Room Air Intake and Output 08/16/16 08/17/16 19:00 07:00 Intake Total 750 ml 865 ml Output Total 800 ml 1700 ml Balance -50 ml -835 ml Intake Oral 100 ml Free Water 160 ml 70 ml IV Total 300 ml Tube Feeding 490 ml 495 ml Output Urine Total 800 ml 1700 ml # Voids 1 1 # Bowel Movements 1 2 Laboratory Tests 08/17/16 04:55: White Blood Count 7.9, Red Blood Count 5.66, Hemoglobin 12.3L, Hematocrit 39.3L , Mean Corpuscular Volume 70L, Mean Corpuscular Hemoglobin 21.7L, Mean Corpuscular Hemoglobin Concent 31.3L, Red Cell Distribution Width 13.8, Platelet Count 312, Mean Platelet Volume 10.5H, Neutrophils (%) (Auto) 56.3, Lymphocytes (%) (Auto) 25.0, Monocytes (%) (Auto) 13.0H, Eosinophils (%) (Auto) 4.6H, Basophils (%) (Auto) 1.1, Sodium Level 136, Potassium Level 4.5, Chloride Level 98, Carbon Dioxide Level 24, Anion Gap 14, Blood Urea Nitrogen 17, Creatinine 0.6L, Estimat Glomerular Filtration Rate > 60, Glucose Level 121H, Calcium Level 9.0 08/17/16 11:45: Vancomycin Level Trough 18.3H Height (Feet): 6 Height (Inches): 1.00 Weight (Pounds): 159 General Appearance: lethargic, confused EENT: normal ENT inspection Neck: normal alignment Cardiovascular: normal peripheral pulses, normal rate, regular rhythm Respiratory/Chest: chest wall non-tender, lungs clear, normal breath sounds Abdomen: normal bowel sounds, non tender, soft Extremities: normal inspection Edema: no edema noted Arm (L), no edema noted Arm (R), no edema noted Leg (L), no edema noted Leg (R), no edema noted Pedal (L), no edema noted Pedal (R), no edema noted Generalized Neurologic: motor weakness Skin: normal pigmentation, warm/dry TONYA GOOD Aug 17, 2016 14:19
--- NOTE | 2016-08-17 16:49 | Cardiac Electrophysiology PN ---
Assessment/Plan Assessment/Plan 1. Sinus Tachycardia due to sepsis and dehydration. 2. Pseudomonas aeruginosa pneumonia and sepsis. On amikacin. 3. Cerebral palsy. 4. Seizure disorder.Keppra 5. Schizophrenia. Risperdal 6. C. Diff On Vancomycin. 7. S/P Gastrostomy tube malfunction. Subjective Subjective Comfortable in NAD.No significant change. On broadspectrum iv antibiotics.On Med surge. Objective Last 24 Hour Vital Signs Date Time Temp Pulse Resp B/P Pulse Ox O2 Delivery O2 Flow Rate FiO2 08/17/16 16:09 98.4 102 20 102/71 98 Room Air 08/17/16 11:51 98.4 95 20 122/71 96 Room Air 08/17/16 08:30 98.2 96 18 110/69 98 Room Air 08/17/16 03:56 97.2 97 18 91/67 97 Room Air 08/17/16 00:00 97.7 99 18 94/61 95 Room Air 08/16/16 20:00 98.1 94 20 90/60 96 Room Air Intake and Output 08/16/16 08/17/16 19:00 07:00 Intake Total 750 ml 865 ml Output Total 800 ml 1700 ml Balance -50 ml -835 ml Intake Oral 100 ml Free Water 160 ml 70 ml IV Total 300 ml Tube Feeding 490 ml 495 ml Output Urine Total 800 ml 1700 ml # Voids 1 1 # Bowel Movements 1 2 Laboratory Tests Test 08/17/16 04:55 08/17/16 11:45 White Blood Count 7.9 K/UL (4.8-10.8) Red Blood Count 5.66 M/UL (4.70-6.10) Hemoglobin 12.3 G/DL (14.2-18.0) L Hematocrit 39.3 % (42.0-52.0) L Mean Corpuscular Volume 70 FL (80-99) L Mean Corpuscular Hemoglobin 21.7 PG (27.0-31.0) L Mean Corpuscular Hemoglobin Concent 31.3 G/DL (32.0-36.0) L Red Cell Distribution Width 13.8 % (11.6-14.8) Platelet Count 312 K/UL (150-450) Mean Platelet Volume 10.5 FL (6.5-10.1) H Neutrophils (%) (Auto) 56.3 % (45.0-75.0) Lymphocytes (%) (Auto) 25.0 % (20.0-45.0) Monocytes (%) (Auto) 13.0 % (1.0-10.0) H Eosinophils (%) (Auto) 4.6 % (0.0-3.0) H Basophils (%) (Auto) 1.1 % (0.0-2.0) Sodium Level 136 mEQ/L (135-145) Potassium Level 4.5 mEQ/L (3.4-4.9) Chloride Level 98 mEQ/L (98-107) Carbon Dioxide Level 24 mEQ/L (20-30) Anion Gap 14 (5-15) Blood Urea Nitrogen 17 mg/dL (7-23) Creatinine 0.6 mg/dL (0.7-1.2) L Estimat Glomerular Filtration Rate > 60 mL/min (>60) Glucose Level 121 mg/dL (74-106) H Calcium Level 9.0 mg/dL (8.6-10.2) Vancomycin Level Trough 18.3 ug/mL (5.0-12.0) H Objective HEAD AND NECK: Shows no JVD. LUNGS: Coarse rhonchi. CARDIOVASCULAR: Irregularly irregular S1 and S2 with no gallop or murmur. Tachycardic. ABDOMEN: G-tube intact EXTREMITIES: No pitting edema. HUMPHREY FRANCO Aug 17, 2016 16:49
--- NOTE | 2016-08-17 17:29 | Infectious Diseases Prog Note ---
Assessment/Plan Problems: (1) Sepsis Assessment & Plan: continue amikacin to cover for pseudomonas aeruginosa pneumonia and vancomycin empirically for two weeks , blood culture showed no growth so far. EOT 08/21/16 (2) C. difficile colitis Assessment & Plan: received vancomycin orally for two weeks total , improved. (3) Malfunction of percutaneous endoscopic gastrostomy (PEG) tube Assessment & Plan: S/P replacement, GI is following (4) Diabetes Assessment & Plan: recommend tight glycemic control to keep fasting less than 120, and premeal less than 130 (5) Dermatitis Assessment & Plan: due to bile acid irritation from the G tube site leakage, continue local skin care and G tube care Subjective ROS Limited/Unobtainable: Yes Allergies: Coded Allergies: NO KNOWN DRUG ALLERGIES (Unverified Allergy, Unknown, 08/22/15) Subjective he is nonverbal, demented, resting in bed, developed fever today , no diarrhea as per nursing staff. Objective Vital Signs Last 24 Hour Vital Signs Date Time Temp Pulse Resp B/P Pulse Ox O2 Delivery O2 Flow Rate FiO2 08/17/16 16:09 98.4 102 20 102/71 98 Room Air 08/17/16 11:51 98.4 95 20 122/71 96 Room Air 08/17/16 08:30 98.2 96 18 110/69 98 Room Air 08/17/16 03:56 97.2 97 18 91/67 97 Room Air 08/17/16 00:00 97.7 99 18 94/61 95 Room Air 08/16/16 20:00 98.1 94 20 90/60 96 Room Air Height (Feet): 6 Height (Inches): 1.00 Weight (Pounds): 159 General Appearance: WD/WN, no acute distress HEENT: normocephalic, atraumatic, anicteric, mucous membranes moist Respiratory/Chest: chest wall non-tender, lungs clear, normal breath sounds, no respiratory distress, no accessory muscle use Cardiovascular: normal peripheral pulses, normal rate, regular rhythm, no gallop/murmur, no JVD Abdomen: normal bowel sounds, soft, non tender, no organomegaly, non distended , no mass, no scars Extremities: no cyanosis, no clubbing Skin: no rash, no lesions Laboratory Tests Test 08/17/16 04:55 08/17/16 11:45 White Blood Count 7.9 K/UL (4.8-10.8) Red Blood Count 5.66 M/UL (4.70-6.10) Hemoglobin 12.3 G/DL (14.2-18.0) L Hematocrit 39.3 % (42.0-52.0) L Mean Corpuscular Volume 70 FL (80-99) L Mean Corpuscular Hemoglobin 21.7 PG (27.0-31.0) L Mean Corpuscular Hemoglobin Concent 31.3 G/DL (32.0-36.0) L Red Cell Distribution Width 13.8 % (11.6-14.8) Platelet Count 312 K/UL (150-450) Mean Platelet Volume 10.5 FL (6.5-10.1) H Neutrophils (%) (Auto) 56.3 % (45.0-75.0) Lymphocytes (%) (Auto) 25.0 % (20.0-45.0) Monocytes (%) (Auto) 13.0 % (1.0-10.0) H Eosinophils (%) (Auto) 4.6 % (0.0-3.0) H Basophils (%) (Auto) 1.1 % (0.0-2.0) Sodium Level 136 mEQ/L (135-145) Potassium Level 4.5 mEQ/L (3.4-4.9) Chloride Level 98 mEQ/L (98-107) Carbon Dioxide Level 24 mEQ/L (20-30) Anion Gap 14 (5-15) Blood Urea Nitrogen 17 mg/dL (7-23) Creatinine 0.6 mg/dL (0.7-1.2) L Estimat Glomerular Filtration Rate > 60 mL/min (>60) Glucose Level 121 mg/dL (74-106) H Calcium Level 9.0 mg/dL (8.6-10.2) Vancomycin Level Trough 18.3 ug/mL (5.0-12.0) H Current Medications Medications (Trade) Dose Ordered Sig/Monalisa Route PRN Reason Start Time Stop Time Status Last Admin Dose Admin Acetaminophen (Tylenol) 650 mg Q4H PRN ORAL fever 07/28/16 15:00 08/27/16 14:59 08/13/16 16:26 Albuterol/ Ipratropium 3 ml 3 ml Q4H PRN HHN Shortness of Breath 08/17/16 07:30 08/22/16 07:29 Amikacin Protocol 1 ea 1 ea DAILY PRN MISC Per rx protocol 08/06/16 17:00 09/05/16 16:59 Amikacin Sulfate 1000 mg/Sodium Chloride 114 ml @ 228 mls/hr Q24H IV 08/17/16 20:00 08/22/16 19:59 Clotrimazole (Lotrimin) 1 applic THREE TIMES A DAY TOPIC 07/29/16 14:30 08/28/16 14:29 08/17/16 14:28 Finasteride (Proscar) 5 mg DAILY GT 07/29/16 09:00 08/28/16 08:59 08/17/16 09:44 Heparin Sodium (Porcine) (Heparin 5000 units/ml) 5,000 units EVERY 12 HOURS SUBQ 07/28/16 21:00 08/27/16 20:59 08/17/16 09:43 Levetiracetam (Keppra) 1,500 mg Q12HR GT 07/28/16 21:00 08/27/16 20:59 08/17/16 09:44 Nitroglycerin (Ntg) 0.4 mg Q5M X 3 DOSES PRN SL Prn Chest Pain 07/28/16 14:15 08/27/16 14:14 Ondansetron HCl (Zofran) 4 mg Q6H PRN IVP Nausea & Vomiting 07/28/16 15:00 08/27/16 14:59 Polyethylene Glycol (Miralax) 17 gm DAILYPRN PRN GT Constipation 07/28/16 15:00 08/27/16 14:59 Risperidone (RisperDAL) 1 mg BID ORAL 07/28/16 18:00 08/27/16 17:59 08/17/16 09:44 Valproic Acid (Depakene) 500 mg EVERY 12 HOURS GT 07/28/16 21:00 08/27/16 20:59 08/17/16 11:01 Vancomycin HCl/ Dextrose (Vancomycin/D5W) 300 ml @ 150 mls/hr Q12HR@0100,1300 IVPB 08/11/16 13:00 08/17/16 18:00 08/17/16 14:28 Vancomycin HCl/ Dextrose (Vancomycin/D5W) 325 ml @ 162.5 mls/ hr Q12HR@0100,1300 IVPB 08/18/16 01:00 08/22/16 00:59 Tavo Ramirez M.D. Aug 17, 2016 17:29
[2016-08-17] MEDS: Amikacin 1,000 MG in NS 110 ML IV SCH (19:40)
[2016-08-18] MEDS: Vancomycin 1.5 GM in D5W 325 ML IVPB SCH ×2 (01:01→13:55)
[2016-08-18 04:47] VITALS: BP 113/78
[2016-08-18 07:55] LABS: ANION GAP 15 (5-15); CARBON DIOXIDE 24 mEQ/L (20-30); CHLORIDE 94 mEQ/L (98-107); CREATININE 0.6 mg/dL (0.7-1.2); GLOMERULAR FILTRATION RATE > 60 mL/min (>60); HEMOLYSIS 2; POTASSIUM 4.4 mEQ/L (3.4-4.9); SODIUM 133 mEQ/L (135-145)
[2016-08-18 08:20] VITALS: BP 109/72
[2016-08-18 08:41] LABS: BASOPHILS % (AUTO) 1.1 % (0.0-2.0); EOSINOPHILS % (AUTO) 3.1 % (0.0-3.0); LYMPHOCYTES % (AUTO) 22.5 % (20.0-45.0); MEAN CORPUSCULAR HEMOGLOBIN 21.6 PG (27.0-31.0); MEAN CORPUSCULAR HGB CONC 30.1 G/DL (32.0-36.0); MEAN CORPUSCULAR VOLUME 72 FL (80-99); MEAN PLATELET VOLUME 8.1 FL (6.5-10.1); MONOCYTES % (AUTO) 12.8 % (1.0-10.0); NEUTROPHILS % (AUTO) 60.6 % (45.0-75.0); PLATELET COUNT 323 K/UL (150-450); RED BLOOD COUNT 5.84 M/UL (4.70-6.10); RED CELL DISTRIBUTION WIDTH 13.4 % (11.6-14.8); WHITE BLOOD COUNT 8.9 K/UL (4.8-10.8)
--- NOTE | 2016-08-18 08:45 | General Progress Note ---
Assessment/Plan Problem List: (1) Pneumonia ICD Codes: J18.9 - Pneumonia, unspecified organism SNOMED: 288410555 (2) Sepsis ICD Codes: A41.9 - Sepsis, unspecified organism SNOMED: 81943624 (3) Attention to G-tube ICD Codes: Z43.1 - Encounter for attention to gastrostomy SNOMED: 027582894, 021087305 (4) Altered level of consciousness ICD Codes: R40.4 - Transient alteration of awareness SNOMED: 4386903 (5) Seizure disorder, partial, intractable ICD Codes: G40.119 - Seizure disorder, partial, intractable SNOMED: 808661173 Status: stable, progressing, tolerating diet Assessment/Plan o2 pulm tx abx ot pt diet psyc care dc if clear by pulm and id Subjective Constitutional: Reports: weakness Allergies: Coded Allergies: NO KNOWN DRUG ALLERGIES (Unverified Allergy, Unknown, 08/22/15) All Systems: reviewed and negative except above Subjective sleepy calm Objective Last 24 Hour Vital Signs Date Time Temp Pulse Resp B/P Pulse Ox O2 Delivery O2 Flow Rate FiO2 08/18/16 08:20 97.9 107 20 109/72 96 Room Air 08/18/16 04:47 97.4 107 18 113/78 96 Room Air 08/17/16 23:57 97.8 104 18 109/64 95 Room Air 08/17/16 20:00 97.3 102 22 95/66 98 Room Air 08/17/16 16:09 98.4 102 20 102/71 98 Room Air 08/17/16 11:51 98.4 95 20 122/71 96 Room Air Intake and Output 08/17/16 08/18/16 19:00 07:00 Intake Total 945 ml 439.0 ml Output Total 600 ml 700 ml Balance 345 ml -261.0 ml Intake Oral 0 ml Free Water 150 ml IV Total 300 ml 439.0 ml Tube Feeding 495 ml Output Urine Total 600 ml 700 ml Laboratory Tests 08/17/16 11:45: Vancomycin Level Trough 18.3H 08/18/16 04:50: White Blood Count [Pending], Red Blood Count [Pending], Hemoglobin [Pending], Hematocrit [Pending], Mean Corpuscular Volume [Pending], Mean Corpuscular Hemoglobin [Pending], Mean Corpuscular Hemoglobin Concent [Pending], Red Cell Distribution Width [Pending], Platelet Count [Pending], Mean Platelet Volume [ Pending], Neutrophils (%) (Auto) [Pending], Lymphocytes (%) (Auto) [Pending], Monocytes (%) (Auto) [Pending], Eosinophils (%) (Auto) [Pending], Basophils (%) (Auto) [Pending], Sodium Level 133L, Potassium Level 4.4, Chloride Level 94L, Carbon Dioxide Level 24, Anion Gap 15, Blood Urea Nitrogen 20, Creatinine 0.6L, Estimat Glomerular Filtration Rate > 60, Glucose Level 130H, Calcium Level 9.0 Height (Feet): 6 Height (Inches): 1.00 Weight (Pounds): 159 General Appearance: lethargic EENT: normal ENT inspection Neck: normal alignment Cardiovascular: normal peripheral pulses, normal rate, regular rhythm Respiratory/Chest: chest wall non-tender, lungs clear, normal breath sounds Abdomen: normal bowel sounds, non tender, soft Extremities: normal inspection Edema: no edema noted Arm (L), no edema noted Arm (R), no edema noted Leg (L), no edema noted Leg (R), no edema noted Pedal (L), no edema noted Pedal (R), no edema noted Generalized Neurologic: motor weakness Skin: normal pigmentation, warm/dry TONYA GOOD Aug 18, 2016 08:45
[2016-08-18] MEDS: Valproic Acid 250mg/5ml Liquid GT SCH ×2 (10:34→20:43)
[2016-08-18] MEDS: levETIRAcetam 500mg/5ml Liquid GT SCH ×2 (10:34→20:43)
[2016-08-18] MEDS: Heparin 5000 units/ml inj SUBQ SCH ×2 (10:44→20:44)
[2016-08-18 11:46] VITALS: BP 110/75
--- NOTE | 2016-08-18 14:56 | Infectious Diseases Prog Note ---
Assessment/Plan Problems: (1) Sepsis Assessment & Plan: continue amikacin to cover for pseudomonas aeruginosa pneumonia and vancomycin empirically for two weeks , blood culture showed no growth so far. EOT 08/21/16 (2) C. difficile colitis Assessment & Plan: received vancomycin orally for two weeks total , improved. (3) Malfunction of percutaneous endoscopic gastrostomy (PEG) tube Assessment & Plan: S/P replacement, GI is following (4) Diabetes Assessment & Plan: recommend tight glycemic control to keep fasting less than 120, and premeal less than 130 (5) Dermatitis Assessment & Plan: due to bile acid irritation from the G tube site leakage, continue local skin care and G tube care Subjective ROS Limited/Unobtainable: Yes Allergies: Coded Allergies: NO KNOWN DRUG ALLERGIES (Unverified Allergy, Unknown, 08/22/15) Subjective he is nonverbal, demented, resting in bed, developed fever today , no diarrhea as per nursing staff. Objective Vital Signs Last 24 Hour Vital Signs Date Time Temp Pulse Resp B/P Pulse Ox O2 Delivery O2 Flow Rate FiO2 08/18/16 11:46 98.2 75 20 110/75 98 Room Air 08/18/16 08:20 97.9 107 20 109/72 96 Room Air 08/18/16 08:02 107 20 Room Air 08/18/16 04:47 97.4 107 18 113/78 96 Room Air 08/17/16 23:57 97.8 104 18 109/64 95 Room Air 08/17/16 20:00 97.3 102 22 95/66 98 Room Air 08/17/16 16:09 98.4 102 20 102/71 98 Room Air Height (Feet): 6 Height (Inches): 1.00 Weight (Pounds): 159 General Appearance: WD/WN, no acute distress HEENT: normocephalic, atraumatic, anicteric, mucous membranes moist Respiratory/Chest: chest wall non-tender, lungs clear, normal breath sounds, no respiratory distress, no accessory muscle use Cardiovascular: normal peripheral pulses, normal rate, regular rhythm, no gallop/murmur Abdomen: normal bowel sounds, soft, non tender, no organomegaly, non distended , no mass Extremities: no cyanosis, no clubbing Skin: no rash, no lesions, no ulcers Laboratory Tests Test 08/18/16 04:50 White Blood Count 8.9 K/UL (4.8-10.8) Red Blood Count 5.84 M/UL (4.70-6.10) Hemoglobin 12.6 G/DL (14.2-18.0) L Hematocrit 41.8 % (42.0-52.0) L Mean Corpuscular Volume 72 FL (80-99) L Mean Corpuscular Hemoglobin 21.6 PG (27.0-31.0) L Mean Corpuscular Hemoglobin Concent 30.1 G/DL (32.0-36.0) L Red Cell Distribution Width 13.4 % (11.6-14.8) Platelet Count 323 K/UL (150-450) Mean Platelet Volume 8.1 FL (6.5-10.1) Neutrophils (%) (Auto) 60.6 % (45.0-75.0) Lymphocytes (%) (Auto) 22.5 % (20.0-45.0) Monocytes (%) (Auto) 12.8 % (1.0-10.0) H Eosinophils (%) (Auto) 3.1 % (0.0-3.0) H Basophils (%) (Auto) 1.1 % (0.0-2.0) Sodium Level 133 mEQ/L (135-145) L Potassium Level 4.4 mEQ/L (3.4-4.9) Chloride Level 94 mEQ/L (98-107) L Carbon Dioxide Level 24 mEQ/L (20-30) Anion Gap 15 (5-15) Blood Urea Nitrogen 20 mg/dL (7-23) Creatinine 0.6 mg/dL (0.7-1.2) L Estimat Glomerular Filtration Rate > 60 mL/min (>60) Glucose Level 130 mg/dL (74-106) H Calcium Level 9.0 mg/dL (8.6-10.2) Current Medications Medications (Trade) Dose Ordered Sig/Moanlisa Route PRN Reason Start Time Stop Time Status Last Admin Dose Admin Acetaminophen (Tylenol) 650 mg Q4H PRN ORAL fever 07/28/16 15:00 08/27/16 14:59 08/13/16 16:26 Albuterol/ Ipratropium 3 ml 3 ml Q4H PRN HHN Shortness of Breath 08/17/16 07:30 08/22/16 07:29 Amikacin Protocol (Amikacin pharmacy to dose) 1 ea DAILY PRN MISC Per rx protocol 08/06/16 17:00 09/05/16 16:59 Amikacin Sulfate 1000 mg/Sodium Chloride 114 ml @ 228 mls/hr Q24H IV 08/17/16 20:00 08/22/16 19:59 08/17/16 19:40 Clotrimazole (Lotrimin) 1 applic THREE TIMES A DAY TOPIC 07/29/16 14:30 08/28/16 14:29 08/18/16 13:55 Finasteride (Proscar) 5 mg DAILY GT 07/29/16 09:00 08/28/16 08:59 08/18/16 10:34 Heparin Sodium (Porcine) (Heparin 5000 units/ml) 5,000 units EVERY 12 HOURS SUBQ 07/28/16 21:00 08/27/16 20:59 08/18/16 10:44 Levetiracetam (Keppra) 1,500 mg Q12HR GT 07/28/16 21:00 08/27/16 20:59 08/18/16 10:34 Nitroglycerin (Ntg) 0.4 mg Q5M X 3 DOSES PRN SL Prn Chest Pain 07/28/16 14:15 08/27/16 14:14 Ondansetron HCl (Zofran) 4 mg Q6H PRN IVP Nausea & Vomiting 07/28/16 15:00 08/27/16 14:59 Polyethylene Glycol (Miralax) 17 gm DAILYPRN PRN GT Constipation 07/28/16 15:00 08/27/16 14:59 Risperidone (RisperDAL) 1 mg BID ORAL 07/28/16 18:00 08/27/16 17:59 08/18/16 10:35 Valproic Acid (Depakene) 500 mg EVERY 12 HOURS GT 07/28/16 21:00 08/27/16 20:59 08/18/16 10:34 Vancomycin HCl/ Dextrose (Vancomycin/D5W) 325 ml @ 162.5 mls/ hr Q12HR@0100,1300 IVPB 08/18/16 01:00 08/22/16 00:59 08/18/16 13:55 Tavo Ramirez M.D. Aug 18, 2016 14:56
[2016-08-18] MEDS ORDERED: Tubing IV Secondary IV ONE ×4 (15:19→16:08)
[2016-08-18] MEDS ORDERED: NS 275ml ONE ×2 (15:55→15:59)
[2016-08-18 16:16] VITALS: BP 108/69
--- NOTE | 2016-08-18 16:54 | Pulmonology Progress Note ---
Assessment/Plan Assessment/Plan ASSESSMENT sepsis ST 2 to sepsis and dehydration -resolved C dif colitis PNA dehydration dysphagia, G tube malfunctioning G tube, s/p replacement seizure disorder cerebral palsy with advanced mental retardation anemia PLAN OF CARE MS floor tachycardia resolved cardio follows, BP on low side,baseline off IVF abx, ID follows stool+ Cdif, Vanco po x 2 weeks total sputum cx + Pseudomonas- colonized as per ID urine and blood cx negative CXR negative O2 HHN prn strict aspiration precautions, GT feeding, monitor tolerance, site care secure precautions, continue Depakote and Keppra DVT prophylaxis monitor HH, at baseline, stool OB negative dc plan as per PMD case discussed and evaluated by supervising physician Subjective Allergies: Coded Allergies: NO KNOWN DRUG ALLERGIES (Unverified Allergy, Unknown, 08/22/15) Subjective afebrile, no leukocytosis, no signs of respiratory distress diarrhea decreased tolerates TF Objective Last 24 Hour Vital Signs Date Time Temp Pulse Resp B/P Pulse Ox O2 Delivery O2 Flow Rate FiO2 08/18/16 16:16 98.4 108 20 108/69 96 Room Air 08/18/16 11:46 98.2 75 20 110/75 98 Room Air 08/18/16 08:20 97.9 107 20 109/72 96 Room Air 08/18/16 08:02 107 20 Room Air 08/18/16 04:47 97.4 107 18 113/78 96 Room Air 08/17/16 23:57 97.8 104 18 109/64 95 Room Air 08/17/16 20:00 97.3 102 22 95/66 98 Room Air Intake and Output 08/17/16 08/18/16 19:00 07:00 Intake Total 945 ml 484.0 ml Output Total 600 ml 700 ml Balance 345 ml -216.0 ml Intake Oral 0 ml Free Water 150 ml IV Total 300 ml 439.0 ml Tube Feeding 495 ml 45 ml Output Urine Total 600 ml 700 ml Objective General Appearance: no acute distress, cachetic, bedridden, nonverbal, chronically ill looking HEENT: normocephalic, atraumatic, anicteric, no JVD Respiratory/Chest: no respiratory distress, no accessory muscle use, decreased breath sounds Cardiovascular: normal rate, regularly irregular Abdomen: normal bowel sounds, soft, non tender, non distended, G tube Genitourinary: normal external genitalia Extremities: no edema Neurologic/Psychiatric: abnormal gait, bedridden , contracted LE, bedridden, nonverbal Musculoskeletal: atrophy BLE with contractures Laboratory Tests 08/18/16 04:50: White Blood Count 8.9, Red Blood Count 5.84, Hemoglobin 12.6L, Hematocrit 41.8L , Mean Corpuscular Volume 72L, Mean Corpuscular Hemoglobin 21.6L, Mean Corpuscular Hemoglobin Concent 30.1L, Red Cell Distribution Width 13.4, Platelet Count 323, Mean Platelet Volume 8.1, Neutrophils (%) (Auto) 60.6, Lymphocytes (%) (Auto) 22.5, Monocytes (%) (Auto) 12.8H, Eosinophils (%) (Auto) 3.1H, Basophils (%) (Auto) 1.1, Sodium Level 133L, Potassium Level 4.4, Chloride Level 94L, Carbon Dioxide Level 24, Anion Gap 15, Blood Urea Nitrogen 20, Creatinine 0.6L, Estimat Glomerular Filtration Rate > 60, Glucose Level 130H , Calcium Level 9.0 Current Medications Medications (Trade) Dose Ordered Sig/Monalisa Route PRN Reason Start Time Stop Time Status Last Admin Dose Admin Acetaminophen (Tylenol) 650 mg Q4H PRN ORAL fever 07/28/16 15:00 08/27/16 14:59 08/13/16 16:26 Albuterol/ Ipratropium 3 ml 3 ml Q4H PRN HHN Shortness of Breath 08/17/16 07:30 08/22/16 07:29 Amikacin Protocol (Amikacin pharmacy to dose) 1 ea DAILY PRN MISC Per rx protocol 08/06/16 17:00 09/05/16 16:59 Amikacin Sulfate 1000 mg/Sodium Chloride 114 ml @ 228 mls/hr Q24H IV 08/17/16 20:00 08/22/16 19:59 08/17/16 19:40 Clotrimazole (Lotrimin) 1 applic THREE TIMES A DAY TOPIC 07/29/16 14:30 08/28/16 14:29 08/18/16 13:55 Finasteride (Proscar) 5 mg DAILY GT 07/29/16 09:00 08/28/16 08:59 08/18/16 10:34 Heparin Sodium (Porcine) (Heparin 5000 units/ml) 5,000 units EVERY 12 HOURS SUBQ 07/28/16 21:00 08/27/16 20:59 08/18/16 10:44 Levetiracetam (Keppra) 1,500 mg Q12HR GT 07/28/16 21:00 08/27/16 20:59 08/18/16 10:34 Nitroglycerin (Ntg) 0.4 mg Q5M X 3 DOSES PRN SL Prn Chest Pain 07/28/16 14:15 08/27/16 14:14 Ondansetron HCl (Zofran) 4 mg Q6H PRN IVP Nausea & Vomiting 07/28/16 15:00 08/27/16 14:59 Polyethylene Glycol (Miralax) 17 gm DAILYPRN PRN GT Constipation 07/28/16 15:00 08/27/16 14:59 Risperidone (RisperDAL) 1 mg BID ORAL 07/28/16 18:00 08/27/16 17:59 08/18/16 10:35 Valproic Acid (Depakene) 500 mg EVERY 12 HOURS GT 07/28/16 21:00 08/27/16 20:59 08/18/16 10:34 Vancomycin HCl/ Dextrose (Vancomycin/D5W) 325 ml @ 162.5 mls/ hr Q12HR@0100,1300 IVPB 08/18/16 01:00 08/22/16 00:59 08/18/16 13:55 Thang Hernandezhayley)Lia NP Aug 18, 2016 16:54
--- NOTE | 2016-08-18 18:01 | Cardiac Electrophysiology PN ---
Assessment/Plan Assessment/Plan 1. Sinus Tachycardia due to sepsis and dehydration. 2. Pseudomonas aeruginosa pneumonia and sepsis. On iv amikacin. 3. Cerebral palsy. 4. Seizure disorder.Keppra 5. Schizophrenia. Risperdal 6. C. Diff On Vancomycin via GT. 7. S/P Gastrostomy tube malfunction. DIXON RN Subjective Subjective Comfortable in NAD.No significant change. On broadspectrum iv antibiotics. Objective Last 24 Hour Vital Signs Date Time Temp Pulse Resp B/P Pulse Ox O2 Delivery O2 Flow Rate FiO2 08/18/16 16:16 98.4 108 20 108/69 96 Room Air 08/18/16 11:46 98.2 75 20 110/75 98 Room Air 08/18/16 08:20 97.9 107 20 109/72 96 Room Air 08/18/16 08:02 107 20 Room Air 08/18/16 04:47 97.4 107 18 113/78 96 Room Air 08/17/16 23:57 97.8 104 18 109/64 95 Room Air 08/17/16 20:00 97.3 102 22 95/66 98 Room Air Intake and Output 08/17/16 08/18/16 19:00 07:00 Intake Total 945 ml 484.0 ml Output Total 600 ml 700 ml Balance 345 ml -216.0 ml Intake Oral 0 ml Free Water 150 ml IV Total 300 ml 439.0 ml Tube Feeding 495 ml 45 ml Output Urine Total 600 ml 700 ml Laboratory Tests Test 08/18/16 04:50 White Blood Count 8.9 K/UL (4.8-10.8) Red Blood Count 5.84 M/UL (4.70-6.10) Hemoglobin 12.6 G/DL (14.2-18.0) L Hematocrit 41.8 % (42.0-52.0) L Mean Corpuscular Volume 72 FL (80-99) L Mean Corpuscular Hemoglobin 21.6 PG (27.0-31.0) L Mean Corpuscular Hemoglobin Concent 30.1 G/DL (32.0-36.0) L Red Cell Distribution Width 13.4 % (11.6-14.8) Platelet Count 323 K/UL (150-450) Mean Platelet Volume 8.1 FL (6.5-10.1) Neutrophils (%) (Auto) 60.6 % (45.0-75.0) Lymphocytes (%) (Auto) 22.5 % (20.0-45.0) Monocytes (%) (Auto) 12.8 % (1.0-10.0) H Eosinophils (%) (Auto) 3.1 % (0.0-3.0) H Basophils (%) (Auto) 1.1 % (0.0-2.0) Sodium Level 133 mEQ/L (135-145) L Potassium Level 4.4 mEQ/L (3.4-4.9) Chloride Level 94 mEQ/L (98-107) L Carbon Dioxide Level 24 mEQ/L (20-30) Anion Gap 15 (5-15) Blood Urea Nitrogen 20 mg/dL (7-23) Creatinine 0.6 mg/dL (0.7-1.2) L Estimat Glomerular Filtration Rate > 60 mL/min (>60) Glucose Level 130 mg/dL (74-106) H Calcium Level 9.0 mg/dL (8.6-10.2) Objective HEAD AND NECK: Shows no JVD. LUNGS: Coarse rhonchi. CARDIOVASCULAR: Irregularly irregular S1 and S2 with no gallop or murmur. Tachycardic. ABDOMEN: G-tube intact EXTREMITIES: No pitting edema. HUMPHREY FRANCO Aug 18, 2016 18:01
[2016-08-18 20:00] VITALS: BP 93/59
[2016-08-18] MEDS: Amikacin 1,000 MG in NS 110 ML IV SCH (20:43)
[2016-08-19] VITALS (7 sets, daily range): BP systolic 90–107; BP diastolic 58–75
[2016-08-19] MEDS: Vancomycin 1.5 GM in D5W 325 ML IVPB SCH ×2 (01:42→12:12)
--- NOTE | 2016-08-19 08:31 | General Progress Note ---
Assessment/Plan Problem List: (1) Seizure disorder, partial, intractable ICD Codes: G40.119 - Seizure disorder, partial, intractable SNOMED: 900431706 (2) Altered level of consciousness ICD Codes: R40.4 - Transient alteration of awareness SNOMED: 8841508 (3) cerebral pulsy with advanced mental retardation (4) Hypertension ICD Codes: I10 - Hypertension SNOMED: 17845482 (5) Diabetes ICD Codes: E11.9 - Diabetes SNOMED: 39880569 Assessment/Plan TF fu labs fu neurology neg stool ob treat for C.diff Subjective ROS Limited/Unobtainable: No Allergies: Coded Allergies: NO KNOWN DRUG ALLERGIES (Unverified Allergy, Unknown, 08/22/15) Objective Last 24 Hour Vital Signs Date Time Temp Pulse Resp B/P Pulse Ox O2 Delivery O2 Flow Rate FiO2 08/19/16 04:00 98.4 100 20 107/75 94 Room Air 08/19/16 00:00 98.2 107 20 97/58 96 Room Air 08/18/16 20:00 97.5 110 22 93/59 94 Room Air 08/18/16 19:20 95 18 Room Air 21 08/18/16 16:16 98.4 108 20 108/69 96 Room Air 08/18/16 11:46 98.2 75 20 110/75 98 Room Air Intake and Output 08/18/16 08/19/16 19:00 07:00 Intake Total 505 ml 1039.0 ml Output Total 350 ml 350 ml Balance 155 ml 689.0 ml Free Water 100 ml 150 ml IV Total 439.0 ml Tube Feeding 405 ml 450 ml Output Urine Total 350 ml 350 ml # Bowel Movements 3 Height (Feet): 6 Height (Inches): 1.00 Weight (Pounds): 159 General Appearance: no apparent distress EENT: normal ENT inspection Neck: supple Cardiovascular: normal rate Respiratory/Chest: decreased breath sounds Abdomen: normal bowel sounds, non tender, soft Extremities: non-tender BUTCH ALMAGUER Aug 19, 2016 08:31
--- NOTE | 2016-08-19 08:59 | General Progress Note ---
Assessment/Plan Problem List: (1) Pneumonia ICD Codes: J18.9 - Pneumonia, unspecified organism SNOMED: 123076996 (2) Sepsis ICD Codes: A41.9 - Sepsis, unspecified organism SNOMED: 21286111 (3) Attention to G-tube ICD Codes: Z43.1 - Encounter for attention to gastrostomy SNOMED: 704954341, 121033199 (4) Altered level of consciousness ICD Codes: R40.4 - Transient alteration of awareness SNOMED: 5447303 (5) Seizure disorder, partial, intractable ICD Codes: G40.119 - Seizure disorder, partial, intractable SNOMED: 283165024 Status: stable, progressing, tolerating diet Assessment/Plan o2 pulm tx abx ot pt diet psyc care cbc bmp am dc if clear by pulm and id Subjective Constitutional: Reports: weakness Allergies: Coded Allergies: NO KNOWN DRUG ALLERGIES (Unverified Allergy, Unknown, 08/22/15) All Systems: reviewed and negative except above Subjective sleepy calm Objective Last 24 Hour Vital Signs Date Time Temp Pulse Resp B/P Pulse Ox O2 Delivery O2 Flow Rate FiO2 08/19/16 08:10 100 18 Room Air 21 08/19/16 04:00 98.4 100 20 107/75 94 Room Air 08/19/16 00:00 98.2 107 20 97/58 96 Room Air 08/18/16 20:00 97.5 110 22 93/59 94 Room Air 08/18/16 19:20 95 18 Room Air 21 08/18/16 16:16 98.4 108 20 108/69 96 Room Air 08/18/16 11:46 98.2 75 20 110/75 98 Room Air Intake and Output 08/18/16 08/19/16 19:00 07:00 Intake Total 505 ml 1039.0 ml Output Total 350 ml 350 ml Balance 155 ml 689.0 ml Free Water 100 ml 150 ml IV Total 439.0 ml Tube Feeding 405 ml 450 ml Output Urine Total 350 ml 350 ml # Bowel Movements 3 Height (Feet): 6 Height (Inches): 1.00 Weight (Pounds): 159 General Appearance: lethargic, confused EENT: normal ENT inspection Neck: normal alignment Cardiovascular: normal peripheral pulses, normal rate, regular rhythm Respiratory/Chest: chest wall non-tender, lungs clear, normal breath sounds Abdomen: normal bowel sounds, non tender, soft Extremities: normal inspection Edema: no edema noted Arm (L), no edema noted Arm (R), no edema noted Leg (L), no edema noted Leg (R), no edema noted Pedal (L), no edema noted Pedal (R), no edema noted Generalized Neurologic: motor weakness Skin: normal pigmentation, warm/dry TONYA GOOD Aug 19, 2016 08:59
[2016-08-19] MEDS: Valproic Acid 250mg/5ml Liquid GT SCH ×2 (10:38→19:57)
[2016-08-19] MEDS: levETIRAcetam 500mg/5ml Liquid GT SCH ×2 (10:39→20:01)
[2016-08-19] MEDS: Heparin 5000 units/ml inj SUBQ SCH ×2 (10:39→20:01)
[2016-08-19] MEDS ORDERED: Tubing IV Secondary IV ONE (11:31)
[2016-08-19] MEDS ORDERED: NS 275ml ONE (11:31)
--- NOTE | 2016-08-19 12:36 | Pulmonology Progress Note ---
Assessment/Plan Assessment/Plan ASSESSMENT sepsis ST 2 to sepsis and dehydration -resolved C dif colitis PNA dehydration dysphagia, G tube malfunctioning G tube, s/p replacement seizure disorder cerebral palsy with advanced mental retardation anemia PLAN OF CARE MS floor tachycardia resolved cardio follows, BP on low side,baseline off IVF abx, ID follows stool+ Cdif, Vanco po x 2 weeks total sputum cx + Pseudomonas- colonized as per ID urine and blood cx negative CXR negative O2 HHN prn strict aspiration precautions, GT feeding, monitor tolerance, site care secure precautions, continue Depakote and Keppra DVT prophylaxis monitor HH, at baseline, stool OB negative dc plan as per PMD case discussed and evaluated by supervising physician Subjective Allergies: Coded Allergies: NO KNOWN DRUG ALLERGIES (Unverified Allergy, Unknown, 08/22/15) Subjective afebrile, no leukocytosis, no signs of respiratory distress tolerates TF Objective Last 24 Hour Vital Signs Date Time Temp Pulse Resp B/P Pulse Ox O2 Delivery O2 Flow Rate FiO2 08/19/16 08:10 100 18 Room Air 08/19/16 08:00 97.2 103 18 90/63 97 Room Air 08/19/16 04:00 98.4 100 20 107/75 94 Room Air 08/19/16 00:00 98.2 107 20 97/58 96 Room Air 08/18/16 20:00 97.5 110 22 93/59 94 Room Air 08/18/16 19:20 95 18 Room Air 21 08/18/16 16:16 98.4 108 20 108/69 96 Room Air Intake and Output 08/18/16 08/19/16 19:00 07:00 Intake Total 505 ml 1039.0 ml Output Total 350 ml 350 ml Balance 155 ml 689.0 ml Free Water 100 ml 150 ml IV Total 439.0 ml Tube Feeding 405 ml 450 ml Output Urine Total 350 ml 350 ml # Bowel Movements 3 Objective General Appearance: no acute distress, cachetic, bedridden, nonverbal, chronically ill looking HEENT: normocephalic, atraumatic, anicteric, no JVD Respiratory/Chest: no respiratory distress, no accessory muscle use, decreased breath sounds Cardiovascular: normal rate, regularly irregular Abdomen: normal bowel sounds, soft, non tender, non distended, G tube Genitourinary: normal external genitalia Extremities: no edema Neurologic/Psychiatric: abnormal gait, bedridden , contracted LE, bedridden, nonverbal Musculoskeletal: atrophy BLE with contractures Current Medications Medications (Trade) Dose Ordered Sig/Monalisa Route PRN Reason Start Time Stop Time Status Last Admin Dose Admin Acetaminophen (Tylenol) 650 mg Q4H PRN ORAL fever 07/28/16 15:00 08/27/16 14:59 08/13/16 16:26 Albuterol/ Ipratropium 3 ml 3 ml Q4H PRN HHN Shortness of Breath 08/17/16 07:30 08/22/16 07:29 Amikacin Protocol (Amikacin pharmacy to dose) 1 ea DAILY PRN MISC Per rx protocol 08/06/16 17:00 09/05/16 16:59 Amikacin Sulfate 1000 mg/Sodium Chloride 114 ml @ 228 mls/hr Q24H IV 08/17/16 20:00 08/22/16 19:59 08/18/16 20:43 Clotrimazole (Lotrimin) 1 applic THREE TIMES A DAY TOPIC 07/29/16 14:30 08/28/16 14:29 08/19/16 12:10 Finasteride (Proscar) 5 mg DAILY GT 07/29/16 09:00 08/28/16 08:59 08/19/16 10:40 Heparin Sodium (Porcine) (Heparin 5000 units/ml) 5,000 units EVERY 12 HOURS SUBQ 07/28/16 21:00 08/27/16 20:59 08/19/16 10:39 Levetiracetam (Keppra) 1,500 mg Q12HR GT 07/28/16 21:00 08/27/16 20:59 08/19/16 10:39 Nitroglycerin (Ntg) 0.4 mg Q5M X 3 DOSES PRN SL Prn Chest Pain 07/28/16 14:15 08/27/16 14:14 Ondansetron HCl (Zofran) 4 mg Q6H PRN IVP Nausea & Vomiting 07/28/16 15:00 08/27/16 14:59 Polyethylene Glycol (Miralax) 17 gm DAILYPRN PRN GT Constipation 07/28/16 15:00 08/27/16 14:59 Risperidone (RisperDAL) 1 mg BID ORAL 07/28/16 18:00 08/27/16 17:59 08/19/16 10:40 Valproic Acid (Depakene) 500 mg EVERY 12 HOURS GT 07/28/16 21:00 08/27/16 20:59 08/19/16 10:38 Vancomycin HCl/ Dextrose (Vancomycin/D5W) 325 ml @ 162.5 mls/ hr Q12HR@0100,1300 IVPB 08/18/16 01:00 08/22/16 00:59 08/19/16 12:12 Thang Rao)Lia NP Aug 19, 2016 12:36
--- NOTE | 2016-08-19 16:32 | Infectious Diseases Prog Note ---
Assessment/Plan Problems: (1) Sepsis Assessment & Plan: continue amikacin to cover for pseudomonas aeruginosa pneumonia and vancomycin empirically for two weeks , blood culture showed no growth so far. EOT 08/21/16 (2) C. difficile colitis Assessment & Plan: received vancomycin orally for two weeks total , improved. (3) Malfunction of percutaneous endoscopic gastrostomy (PEG) tube Assessment & Plan: S/P replacement, GI is following (4) Diabetes Assessment & Plan: recommend tight glycemic control to keep fasting less than 120, and premeal less than 130 (5) Dermatitis Assessment & Plan: due to bile acid irritation from the G tube site leakage, continue local skin care and G tube care Subjective ROS Limited/Unobtainable: Yes Allergies: Coded Allergies: NO KNOWN DRUG ALLERGIES (Unverified Allergy, Unknown, 08/22/15) Subjective he is nonverbal, demented, resting in bed, developed fever today , no diarrhea as per nursing staff. Objective Vital Signs Last 24 Hour Vital Signs Date Time Temp Pulse Resp B/P Pulse Ox O2 Delivery O2 Flow Rate FiO2 08/19/16 12:00 98.1 96 18 99/70 Room Air 08/19/16 08:10 100 18 Room Air 21 08/19/16 08:00 97.2 103 18 90/63 97 Room Air 08/19/16 04:00 98.4 100 20 107/75 94 Room Air 08/19/16 00:00 98.2 107 20 97/58 96 Room Air 08/18/16 20:00 97.5 110 22 93/59 94 Room Air 08/18/16 19:20 95 18 Room Air 21 Height (Feet): 6 Height (Inches): 1.00 Weight (Pounds): 159 General Appearance: WD/WN, no acute distress HEENT: normocephalic, atraumatic, anicteric, mucous membranes moist Respiratory/Chest: chest wall non-tender, lungs clear, normal breath sounds, no respiratory distress, no accessory muscle use Cardiovascular: normal peripheral pulses, normal rate, regular rhythm, no gallop/murmur, no JVD Abdomen: normal bowel sounds, soft, non tender, no organomegaly, non distended , no mass, no scars Extremities: no cyanosis, no clubbing Skin: no rash, no lesions, no ulcers Current Medications Medications (Trade) Dose Ordered Sig/Monalisa Route PRN Reason Start Time Stop Time Status Last Admin Dose Admin Acetaminophen (Tylenol) 650 mg Q4H PRN ORAL fever 07/28/16 15:00 08/27/16 14:59 08/13/16 16:26 Albuterol/ Ipratropium 3 ml 3 ml Q4H PRN HHN Shortness of Breath 08/17/16 07:30 08/22/16 07:29 Amikacin Protocol (Amikacin pharmacy to dose) 1 ea DAILY PRN MISC Per rx protocol 08/06/16 17:00 09/05/16 16:59 Amikacin Sulfate 1000 mg/Sodium Chloride 114 ml @ 228 mls/hr Q24H IV 08/17/16 20:00 08/22/16 19:59 08/18/16 20:43 Clotrimazole (Lotrimin) 1 applic THREE TIMES A DAY TOPIC 07/29/16 14:30 08/28/16 14:29 08/19/16 12:10 Finasteride (Proscar) 5 mg DAILY GT 07/29/16 09:00 08/28/16 08:59 08/19/16 10:40 Heparin Sodium (Porcine) (Heparin 5000 units/ml) 5,000 units EVERY 12 HOURS SUBQ 07/28/16 21:00 08/27/16 20:59 08/19/16 10:39 Levetiracetam (Keppra) 1,500 mg Q12HR GT 07/28/16 21:00 08/27/16 20:59 08/19/16 10:39 Nitroglycerin (Ntg) 0.4 mg Q5M X 3 DOSES PRN SL Prn Chest Pain 07/28/16 14:15 08/27/16 14:14 Ondansetron HCl (Zofran) 4 mg Q6H PRN IVP Nausea & Vomiting 07/28/16 15:00 08/27/16 14:59 Polyethylene Glycol (Miralax) 17 gm DAILYPRN PRN GT Constipation 07/28/16 15:00 08/27/16 14:59 Risperidone (RisperDAL) 1 mg BID ORAL 07/28/16 18:00 08/27/16 17:59 08/19/16 10:40 Valproic Acid (Depakene) 500 mg EVERY 12 HOURS GT 07/28/16 21:00 08/27/16 20:59 08/19/16 10:38 Vancomycin HCl/ Dextrose (Vancomycin/D5W) 325 ml @ 162.5 mls/ hr Q12HR@0100,1300 IVPB 08/18/16 01:00 08/22/16 00:59 08/19/16 12:12 Tavo Ramirez M.D. Aug 19, 2016 16:32
[2016-08-19] MEDS: Amikacin 1,000 MG in NS 110 ML IV SCH (19:57)
[2016-08-20] MEDS: Vancomycin 1.5 GM in D5W 325 ML IVPB SCH ×2 (00:47→12:28)
--- NOTE | 2016-08-20 02:08 | Progress Note ---
DATE: 08/16/2016 The patient is a 60-year-old male. The patient with sepsis and pneumonia. Treated with Depakene 500 mg per G-tube twice a day Risperdal 1 mg p.o. twice a day. Chart reviewed and discussed with staff. Seen and assessed at bedside. Enrrique Escudero M.D. DR: Jaswinder JOB#: [id number] CC:
--- NOTE | 2016-08-20 02:08 | Progress Note ---
DATE: 08/19/2016 The patient with medication regimen consisting of Risperdal 1 mg twice a day and Depakene 500 mg per G-tube twice a day. Chart reviewed and discussed with staff. Seen and assessed at bedside. Enrrique Escudero M.D. DR: Jaswinder JOB#: [id number] CC:
[2016-08-20 04:00] VITALS: BP 118/66
--- NOTE | 2016-08-20 04:47 | Progress Note ---
DATE: 08/13/2016 This is a 60-year-old patient with sepsis and pneumonia. Continue treating this patient with Depakote 500 mg per G-tube twice a day and also treat this patient with Risperdal 1 mg twice a day to reduce agitation and irritability. Continue to treat him with psychotropic medications to stabilize his mood. Seen and assessed at bedside. Enrrique Escudero M.D. DR: MUKUND JOB#: [id number] CC:
--- NOTE | 2016-08-20 06:17 | Progress Note ---
DATE: 08/17/2016 This is a 60-year-old male with sepsis and pneumonia. He is schizoaffective, bipolar type, and continue treatment with per G-tube q.12 hours and Risperdal twice a day. Chart reviewed and discussed with staff. Enrrique Escudero M.D. DR: Jaswinder JOB#: [id number] CC:
[2016-08-20 07:08] LABS: BASOPHILS % (AUTO) 0.9 % (0.0-2.0); EOSINOPHILS % (AUTO) 4.5 % (0.0-3.0); LYMPHOCYTES % (AUTO) 23.7 % (20.0-45.0); MEAN CORPUSCULAR HEMOGLOBIN 21.8 PG (27.0-31.0); MEAN CORPUSCULAR HGB CONC 30.1 G/DL (32.0-36.0); MEAN CORPUSCULAR VOLUME 72 FL (80-99); MEAN PLATELET VOLUME 9.3 FL (6.5-10.1); MONOCYTES % (AUTO) 11.1 % (1.0-10.0); NEUTROPHILS % (AUTO) 59.8 % (45.0-75.0); PLATELET COUNT 281 K/UL (150-450); RED BLOOD COUNT 5.27 M/UL (4.70-6.10); RED CELL DISTRIBUTION WIDTH 13.8 % (11.6-14.8); WHITE BLOOD COUNT 9.5 K/UL (4.8-10.8)
[2016-08-20 07:27] LABS: ANION GAP 17 (5-15); CALCIUM 9.1 mg/dL (8.6-10.2); CARBON DIOXIDE 25 mEQ/L (20-30); CHLORIDE 97 mEQ/L (98-107); CREATININE 0.6 mg/dL (0.7-1.2); GLOMERULAR FILTRATION RATE > 60 mL/min (>60); HEMOLYSIS 0; POTASSIUM 4.4 mEQ/L (3.4-4.9); SODIUM 139 mEQ/L (135-145)
[2016-08-20] MEDS: levETIRAcetam 500mg/5ml Liquid GT SCH ×2 (08:05→21:47)
[2016-08-20] MEDS: Valproic Acid 250mg/5ml Liquid GT SCH ×2 (08:05→21:44)
[2016-08-20] MEDS: Heparin 5000 units/ml inj SUBQ SCH ×2 (08:06→21:45)
[2016-08-20 08:37] VITALS: BP 94/58
--- NOTE | 2016-08-20 11:37 | Progress Note ---
DATE: 08/18/2016 SUBJECTIVE: The patient has sepsis and pneumonia. Treat him with Risperdal 1 mg twice a day for psychosis and agitation. Also Depakene 500 mg per G-tube twice a day for both seizure prophylaxis and mood stabilization. Chart reviewed and discussed with staff. Seen and assessed at bedside. Enrrique Escudero M.D. DR: ANGELI JOB#: [id number] CC:
[2016-08-20 12:42] VITALS: BP 89/58
--- NOTE | 2016-08-20 13:36 | GI Progress Note ---
Assessment/Plan Problems: (1) C. difficile colitis ICD Codes: A04.7 - Enterocolitis due to Clostridium difficile SNOMED: 488234751 (2) Malfunction of percutaneous endoscopic gastrostomy (PEG) tube ICD Codes: K94.23 - Gastrostomy malfunction SNOMED: 190586471 (3) Pancytopenia ICD Codes: D61.818 - Other pancytopenia SNOMED: 941277347 Status: stable Status Narrative Discussed with Dr. Light. Assessment/Plan Assessment (1) Seizure (2) Schizophrenia (3) Diabetes (4) Hypertension (5) cerebral palsy with advanced mental retardation (6) Malfunction of gastrostomy tube - leakage (7) Anemia (8) C Diff Colitis Recommendations - ok for DC per GI standpoint - Continue TF - GT replaced/site care daily/prn - Iron panel WNL - stool OB negative - Abx for C Diff - H2 Subjective Subjective limited Objective Last 24 Hour Vital Signs Date Time Temp Pulse Resp B/P Pulse Ox O2 Delivery O2 Flow Rate FiO2 08/20/16 12:42 97.3 99 19 89/58 93 Room Air 08/20/16 08:37 96.9 100 19 94/58 98 Room Air 08/20/16 07:51 104 20 Room Air 21 08/20/16 04:00 98.2 107 18 118/66 93 Room Air 08/19/16 23:39 97.7 105 18 95/59 94 Room Air 08/19/16 21:49 101 20 Room Air 21 08/19/16 20:00 97.7 101 18 96/66 96 Room Air 08/19/16 16:00 97.7 97 18 101/65 94 Room Air Intake and Output 08/19/16 08/20/16 19:00 07:00 Intake Total 590 ml 1034.0 ml Output Total 3150 ml 700 ml Balance -2560 ml 334.0 ml Free Water 50 ml 100 ml IV Total 439.0 ml Tube Feeding 540 ml 495 ml Output Urine Total 3150 ml 700 ml # Bowel Movements 1 1 Laboratory Tests Test 08/20/16 05:30 White Blood Count 9.5 K/UL (4.8-10.8) Red Blood Count 5.27 M/UL (4.70-6.10) Hemoglobin 11.5 G/DL (14.2-18.0) L Hematocrit 38.2 % (42.0-52.0) L Mean Corpuscular Volume 72 FL (80-99) L Mean Corpuscular Hemoglobin 21.8 PG (27.0-31.0) L Mean Corpuscular Hemoglobin Concent 30.1 G/DL (32.0-36.0) L Red Cell Distribution Width 13.8 % (11.6-14.8) Platelet Count 281 K/UL (150-450) Mean Platelet Volume 9.3 FL (6.5-10.1) Neutrophils (%) (Auto) 59.8 % (45.0-75.0) Lymphocytes (%) (Auto) 23.7 % (20.0-45.0) Monocytes (%) (Auto) 11.1 % (1.0-10.0) H Eosinophils (%) (Auto) 4.5 % (0.0-3.0) H Basophils (%) (Auto) 0.9 % (0.0-2.0) Sodium Level 139 mEQ/L (135-145) Potassium Level 4.4 mEQ/L (3.4-4.9) Chloride Level 97 mEQ/L (98-107) L Carbon Dioxide Level 25 mEQ/L (20-30) Anion Gap 17 (5-15) H Blood Urea Nitrogen 23 mg/dL (7-23) Creatinine 0.6 mg/dL (0.7-1.2) L Estimat Glomerular Filtration Rate > 60 mL/min (>60) Glucose Level 113 mg/dL (74-106) H Calcium Level 9.1 mg/dL (8.6-10.2) Height (Feet): 6 Height (Inches): 1.00 Weight (Pounds): 159 General Appearance: no apparent distress, alert Cardiovascular: normal rate Respiratory/Chest: normal breath sounds, no respiratory distress Abdominal Exam: normal bowel sounds, non tender, soft, GT site - c/d/i Objective no changes Chery Mcfarland N.P. Aug 20, 2016 13:36
--- NOTE | 2016-08-20 13:43 | General Progress Note ---
Assessment/Plan Problem List: (1) Pneumonia ICD Codes: J18.9 - Pneumonia, unspecified organism SNOMED: 484751660 (2) Sepsis ICD Codes: A41.9 - Sepsis, unspecified organism SNOMED: 17862189 (3) Attention to G-tube ICD Codes: Z43.1 - Encounter for attention to gastrostomy SNOMED: 583033894, 611140268 (4) Altered level of consciousness ICD Codes: R40.4 - Transient alteration of awareness SNOMED: 5710861 (5) Seizure disorder, partial, intractable ICD Codes: G40.119 - Seizure disorder, partial, intractable SNOMED: 804707416 Status: stable, progressing, tolerating diet Assessment/Plan o2 pulm tx abx ot pt diet psyc care dc if clear by pulm and id Subjective Constitutional: Reports: weakness Allergies: Coded Allergies: NO KNOWN DRUG ALLERGIES (Unverified Allergy, Unknown, 08/22/15) All Systems: reviewed and negative except above Subjective sleepy calm Objective Last 24 Hour Vital Signs Date Time Temp Pulse Resp B/P Pulse Ox O2 Delivery O2 Flow Rate FiO2 08/20/16 12:42 97.3 99 19 89/58 93 Room Air 08/20/16 08:37 96.9 100 19 94/58 98 Room Air 08/20/16 07:51 104 20 Room Air 21 08/20/16 04:00 98.2 107 18 118/66 93 Room Air 08/19/16 23:39 97.7 105 18 95/59 94 Room Air 08/19/16 21:49 101 20 Room Air 21 08/19/16 20:00 97.7 101 18 96/66 96 Room Air 08/19/16 16:00 97.7 97 18 101/65 94 Room Air Intake and Output 08/19/16 08/20/16 19:00 07:00 Intake Total 590 ml 1034.0 ml Output Total 3150 ml 700 ml Balance -2560 ml 334.0 ml Free Water 50 ml 100 ml IV Total 439.0 ml Tube Feeding 540 ml 495 ml Output Urine Total 3150 ml 700 ml # Bowel Movements 1 1 Laboratory Tests 08/20/16 05:30: White Blood Count 9.5, Red Blood Count 5.27, Hemoglobin 11.5L, Hematocrit 38.2L , Mean Corpuscular Volume 72L, Mean Corpuscular Hemoglobin 21.8L, Mean Corpuscular Hemoglobin Concent 30.1L, Red Cell Distribution Width 13.8, Platelet Count 281, Mean Platelet Volume 9.3, Neutrophils (%) (Auto) 59.8, Lymphocytes (%) (Auto) 23.7, Monocytes (%) (Auto) 11.1H, Eosinophils (%) (Auto) 4.5H, Basophils (%) (Auto) 0.9, Sodium Level 139, Potassium Level 4.4, Chloride Level 97L, Carbon Dioxide Level 25, Anion Gap 17H, Blood Urea Nitrogen 23, Creatinine 0.6L, Estimat Glomerular Filtration Rate > 60, Glucose Level 113H, Calcium Level 9.1 Height (Feet): 6 Height (Inches): 1.00 Weight (Pounds): 159 General Appearance: lethargic, confused EENT: normal ENT inspection Neck: normal alignment Cardiovascular: normal peripheral pulses, normal rate, regular rhythm Respiratory/Chest: chest wall non-tender, lungs clear, normal breath sounds Abdomen: normal bowel sounds, non tender, soft Extremities: normal inspection Edema: no edema noted Arm (L), no edema noted Arm (R), no edema noted Leg (L), no edema noted Leg (R), no edema noted Pedal (L), no edema noted Pedal (R), no edema noted Generalized Neurologic: motor weakness Skin: normal pigmentation, warm/dry TONYA GOOD Aug 20, 2016 13:43
--- NOTE | 2016-08-20 14:07 | Progress Note ---
DATE: 08/14/2016 SUBJECTIVE: The patient has sepsis and pneumonia. Continue treatments the patient with Risperdal 1 mg twice a day and Depakote 500 mg twice a day to stabilize his mood. Chart reviewed and discussed with staff. The patient is seen and assessed in his room. Enrrique Escudero M.D. DR: ANGELI JOB#: [id number] CC:
--- NOTE | 2016-08-20 14:07 | Progress Note ---
DATE: 08/15/2016 SUBJECTIVE: The patient has sepsis and pneumonia, but he also has schizoaffective bipolar type. PLAN: Stabilize his mood with Risperdal 1 mg p.o. twice a day and Depakene 500 mg per G-tube q. 12h. Chart reviewed. Discussed with staff. Enrrique Escudero M.D. DR: ANGELI JOB#: [id number] CC:
--- NOTE | 2016-08-20 15:27 | Progress Note ---
DATE: 08/18/2016 He had sepsis and pneumonia. I am going to treat him with Risperdal 1 mg twice a day and Depakene syrup 500 mg twice a day as seizure prophylaxis and mood stabilization. Enrrique Escudero M.D. DR: MUKUND JOB#: [id number] CC:
[2016-08-20 16:00] VITALS: BP 114/70
--- NOTE | 2016-08-20 17:53 | Infectious Diseases Prog Note ---
Assessment/Plan Problems: (1) Sepsis Assessment & Plan: continue amikacin to cover for pseudomonas aeruginosa pneumonia and vancomycin empirically for two weeks , blood culture showed no growth so far. EOT 08/21/16 (2) C. difficile colitis Assessment & Plan: received vancomycin orally for two weeks total , improved. (3) Malfunction of percutaneous endoscopic gastrostomy (PEG) tube Assessment & Plan: S/P replacement, GI is following (4) Diabetes Assessment & Plan: recommend tight glycemic control to keep fasting less than 120, and premeal less than 130 (5) Dermatitis Assessment & Plan: due to bile acid irritation from the G tube site leakage, continue local skin care and G tube care Subjective ROS Limited/Unobtainable: Yes Allergies: Coded Allergies: NO KNOWN DRUG ALLERGIES (Unverified Allergy, Unknown, 08/22/15) Subjective he is nonverbal, demented, resting in bed, developed fever today , no diarrhea as per nursing staff. Objective Vital Signs Last 24 Hour Vital Signs Date Time Temp Pulse Resp B/P Pulse Ox O2 Delivery O2 Flow Rate FiO2 08/20/16 16:00 97.7 103 19 114/70 100 Room Air 08/20/16 12:42 97.3 99 19 89/58 93 Room Air 08/20/16 08:37 96.9 100 19 94/58 98 Room Air 08/20/16 07:51 104 20 Room Air 21 08/20/16 04:00 98.2 107 18 118/66 93 Room Air 08/19/16 23:39 97.7 105 18 95/59 94 Room Air 08/19/16 21:49 101 20 Room Air 21 08/19/16 20:00 97.7 101 18 96/66 96 Room Air Height (Feet): 6 Height (Inches): 1.00 Weight (Pounds): 159 General Appearance: WD/WN, no acute distress HEENT: normocephalic, atraumatic, anicteric, mucous membranes moist Respiratory/Chest: chest wall non-tender, lungs clear, normal breath sounds, no respiratory distress, no accessory muscle use Cardiovascular: normal peripheral pulses, normal rate, regular rhythm, no gallop/murmur Abdomen: normal bowel sounds, soft, non tender, no organomegaly, non distended , no mass Extremities: no cyanosis, no clubbing Skin: no rash, no lesions Laboratory Tests Test 08/20/16 05:30 White Blood Count 9.5 K/UL (4.8-10.8) Red Blood Count 5.27 M/UL (4.70-6.10) Hemoglobin 11.5 G/DL (14.2-18.0) L Hematocrit 38.2 % (42.0-52.0) L Mean Corpuscular Volume 72 FL (80-99) L Mean Corpuscular Hemoglobin 21.8 PG (27.0-31.0) L Mean Corpuscular Hemoglobin Concent 30.1 G/DL (32.0-36.0) L Red Cell Distribution Width 13.8 % (11.6-14.8) Platelet Count 281 K/UL (150-450) Mean Platelet Volume 9.3 FL (6.5-10.1) Neutrophils (%) (Auto) 59.8 % (45.0-75.0) Lymphocytes (%) (Auto) 23.7 % (20.0-45.0) Monocytes (%) (Auto) 11.1 % (1.0-10.0) H Eosinophils (%) (Auto) 4.5 % (0.0-3.0) H Basophils (%) (Auto) 0.9 % (0.0-2.0) Sodium Level 139 mEQ/L (135-145) Potassium Level 4.4 mEQ/L (3.4-4.9) Chloride Level 97 mEQ/L (98-107) L Carbon Dioxide Level 25 mEQ/L (20-30) Anion Gap 17 (5-15) H Blood Urea Nitrogen 23 mg/dL (7-23) Creatinine 0.6 mg/dL (0.7-1.2) L Estimat Glomerular Filtration Rate > 60 mL/min (>60) Glucose Level 113 mg/dL (74-106) H Calcium Level 9.1 mg/dL (8.6-10.2) Current Medications Medications (Trade) Dose Ordered Sig/Monalisa Route PRN Reason Start Time Stop Time Status Last Admin Dose Admin Acetaminophen (Tylenol) 650 mg Q4H PRN ORAL fever 07/28/16 15:00 08/27/16 14:59 08/13/16 16:26 Albuterol/ Ipratropium 3 ml 3 ml Q4H PRN HHN Shortness of Breath 08/17/16 07:30 1/25/17 07:29 Amikacin Protocol (Amikacin pharmacy to dose) 1 ea DAILY PRN MISC Per rx protocol 08/06/16 17:00 09/05/16 16:59 Amikacin Sulfate 1000 mg/Sodium Chloride 114 ml @ 228 mls/hr Q24H IV 08/17/16 20:00 08/22/16 19:59 08/19/16 19:57 Clotrimazole (Lotrimin) 1 applic THREE TIMES A DAY TOPIC 07/29/16 14:30 08/28/16 14:29 08/20/16 12:27 Finasteride (Proscar) 5 mg DAILY GT 07/29/16 09:00 08/28/16 08:59 08/20/16 08:05 Heparin Sodium (Porcine) (Heparin 5000 units/ml) 5,000 units EVERY 12 HOURS SUBQ 07/28/16 21:00 08/27/16 20:59 08/20/16 08:06 Levetiracetam (Keppra) 1,500 mg Q12HR GT 07/28/16 21:00 08/27/16 20:59 08/20/16 08:05 Nitroglycerin (Ntg) 0.4 mg Q5M X 3 DOSES PRN SL Prn Chest Pain 07/28/16 14:15 08/27/16 14:14 Ondansetron HCl (Zofran) 4 mg Q6H PRN IVP Nausea & Vomiting 07/28/16 15:00 08/27/16 14:59 Polyethylene Glycol (Miralax) 17 gm DAILYPRN PRN GT Constipation 07/28/16 15:00 08/27/16 14:59 Risperidone (RisperDAL) 1 mg BID ORAL 07/28/16 18:00 08/27/16 17:59 08/20/16 08:04 Valproic Acid (Depakene) 500 mg EVERY 12 HOURS GT 07/28/16 21:00 08/27/16 20:59 08/20/16 08:05 Vancomycin HCl/ Dextrose (Vancomycin/D5W) 325 ml @ 162.5 mls/ hr Q12HR@0100,1300 IVPB 08/18/16 01:00 08/22/16 00:59 08/20/16 12:28 Tavo Ramirez M.D. Aug 20, 2016 17:52
--- NOTE | 2016-08-20 18:55 | Cardiac Electrophysiology PN ---
Assessment/Plan Assessment/Plan 1. Sinus Tachycardia due to sepsis and dehydration. Better now. 2. Pseudomonas aeruginosa pneumonia and sepsis. On iv amikacin. 3. Cerebral palsy. 4. Seizure disorder.Keppra 5. Schizophrenia. Risperdal 6. C. Diff On Vancomycin via GT. 7. S/P Gastrostomy Subjective Subjective Comfortable in NAD. On broadspectrum iv antibiotics. Objective Last 24 Hour Vital Signs Date Time Temp Pulse Resp B/P Pulse Ox O2 Delivery O2 Flow Rate FiO2 08/20/16 16:00 97.7 103 19 114/70 100 Room Air 08/20/16 12:42 97.3 99 19 89/58 93 Room Air 08/20/16 08:37 96.9 100 19 94/58 98 Room Air 08/20/16 07:51 104 20 Room Air 21 08/20/16 04:00 98.2 107 18 118/66 93 Room Air 08/19/16 23:39 97.7 105 18 95/59 94 Room Air 08/19/16 21:49 101 20 Room Air 21 08/19/16 20:00 97.7 101 18 96/66 96 Room Air Intake and Output 08/19/16 08/20/16 19:00 07:00 Intake Total 590 ml 1079.0 ml Output Total 3150 ml 700 ml Balance -2560 ml 379.0 ml Free Water 50 ml 100 ml IV Total 439.0 ml Tube Feeding 540 ml 540 ml Output Urine Total 3150 ml 700 ml # Bowel Movements 1 1 Laboratory Tests Test 08/20/16 05:30 White Blood Count 9.5 K/UL (4.8-10.8) Red Blood Count 5.27 M/UL (4.70-6.10) Hemoglobin 11.5 G/DL (14.2-18.0) L Hematocrit 38.2 % (42.0-52.0) L Mean Corpuscular Volume 72 FL (80-99) L Mean Corpuscular Hemoglobin 21.8 PG (27.0-31.0) L Mean Corpuscular Hemoglobin Concent 30.1 G/DL (32.0-36.0) L Red Cell Distribution Width 13.8 % (11.6-14.8) Platelet Count 281 K/UL (150-450) Mean Platelet Volume 9.3 FL (6.5-10.1) Neutrophils (%) (Auto) 59.8 % (45.0-75.0) Lymphocytes (%) (Auto) 23.7 % (20.0-45.0) Monocytes (%) (Auto) 11.1 % (1.0-10.0) H Eosinophils (%) (Auto) 4.5 % (0.0-3.0) H Basophils (%) (Auto) 0.9 % (0.0-2.0) Sodium Level 139 mEQ/L (135-145) Potassium Level 4.4 mEQ/L (3.4-4.9) Chloride Level 97 mEQ/L (98-107) L Carbon Dioxide Level 25 mEQ/L (20-30) Anion Gap 17 (5-15) H Blood Urea Nitrogen 23 mg/dL (7-23) Creatinine 0.6 mg/dL (0.7-1.2) L Estimat Glomerular Filtration Rate > 60 mL/min (>60) Glucose Level 113 mg/dL (74-106) H Calcium Level 9.1 mg/dL (8.6-10.2) Objective HEAD AND NECK: Shows no JVD. LUNGS: Coarse rhonchi. CARDIOVASCULAR: Irregularly irregular S1 and S2 with no gallop or murmur. Tachycardic. ABDOMEN: G-tube intact EXTREMITIES: No pitting edema. HUMPHREY FRANCO Aug 20, 2016 18:55
[2016-08-20 20:00] VITALS: BP 101/63
[2016-08-20] MEDS: Amikacin 1,000 MG in NS 110 ML IV SCH (21:44)
--- NOTE | 2016-08-20 23:31 | Pulmonology Progress Note ---
Assessment/Plan Problems: (1) Hypertension (2) Seizure (3) Sepsis (4) UTI (urinary tract infection) (5) Malfunction of gastrostomy tube (6) alf resident (7) cerebral pulsy with advanced mental retardation (8) Schizophrenia Assessment/Plan Assessment/Plan GI to follow up LOC and mentation monitored Tight BP and BG control Aspiration precautions Seizure precautions Continue ANTBX Subjective Neurologic: Reports: confusion, seizures Allergies: Coded Allergies: NO KNOWN DRUG ALLERGIES (Unverified Allergy, Unknown, 08/22/15) Objective Last 24 Hour Vital Signs Date Time Temp Pulse Resp B/P Pulse Ox O2 Delivery O2 Flow Rate FiO2 08/20/16 20:00 98.6 92 22 101/63 95 Room Air 08/20/16 19:30 95 20 Room Air 21 08/20/16 16:00 97.7 103 19 114/70 100 Room Air 08/20/16 12:42 97.3 99 19 89/58 93 Room Air 08/20/16 08:37 96.9 100 19 94/58 98 Room Air 08/20/16 07:51 104 20 Room Air 21 08/20/16 04:00 98.2 107 18 118/66 93 Room Air 08/19/16 23:39 97.7 105 18 95/59 94 Room Air Intake and Output 08/19/16 08/20/16 19:00 07:00 Intake Total 590 ml 1079.0 ml Output Total 3150 ml 700 ml Balance -2560 ml 379.0 ml Free Water 50 ml 100 ml IV Total 439.0 ml Tube Feeding 540 ml 540 ml Output Urine Total 3150 ml 700 ml # Bowel Movements 1 1 General Appearance: no acute distress HEENT: normocephalic, atraumatic, PERRL Respiratory/Chest: chest wall non-tender, lungs clear Cardiovascular: normal peripheral pulses, normal rate, regular rhythm Abdomen: normal bowel sounds, soft, non tender, no organomegaly Genitourinary: normal external genitalia Skin: no rash Neurologic/Psychiatric: international manager II-XII grossly normal, no motor/sensory deficits Laboratory Tests 08/20/16 05:30: White Blood Count 9.5, Red Blood Count 5.27, Hemoglobin 11.5L, Hematocrit 38.2L , Mean Corpuscular Volume 72L, Mean Corpuscular Hemoglobin 21.8L, Mean Corpuscular Hemoglobin Concent 30.1L, Red Cell Distribution Width 13.8, Platelet Count 281, Mean Platelet Volume 9.3, Neutrophils (%) (Auto) 59.8, Lymphocytes (%) (Auto) 23.7, Monocytes (%) (Auto) 11.1H, Eosinophils (%) (Auto) 4.5H, Basophils (%) (Auto) 0.9, Sodium Level 139, Potassium Level 4.4, Chloride Level 97L, Carbon Dioxide Level 25, Anion Gap 17H, Blood Urea Nitrogen 23, Creatinine 0.6L, Estimat Glomerular Filtration Rate > 60, Glucose Level 113H, Calcium Level 9.1 Current Medications Medications (Trade) Dose Ordered Sig/Monalisa Route PRN Reason Start Time Stop Time Status Last Admin Dose Admin Acetaminophen (Tylenol) 650 mg Q4H PRN ORAL fever 07/28/16 15:00 08/27/16 14:59 08/13/16 16:26 Albuterol/ Ipratropium 3 ml 3 ml Q4H PRN HHN Shortness of Breath 08/17/16 07:30 08/22/16 07:29 Amikacin Protocol (Amikacin pharmacy to dose) 1 ea DAILY PRN MISC Per rx protocol 08/06/16 17:00 09/05/16 16:59 Amikacin Sulfate 1000 mg/Sodium Chloride 114 ml @ 228 mls/hr Q24H IV 08/17/16 20:00 08/22/16 19:59 08/20/16 21:44 Clotrimazole (Lotrimin) 1 applic THREE TIMES A DAY TOPIC 07/29/16 14:30 08/28/16 14:29 08/20/16 17:54 Finasteride (Proscar) 5 mg DAILY GT 07/29/16 09:00 08/28/16 08:59 08/20/16 08:05 Heparin Sodium (Porcine) (Heparin 5000 units/ml) 5,000 units EVERY 12 HOURS SUBQ 07/28/16 21:00 08/27/16 20:59 08/20/16 21:45 Levetiracetam (Keppra) 1,500 mg Q12HR GT 07/28/16 21:00 08/27/16 20:59 08/20/16 21:47 Nitroglycerin (Ntg) 0.4 mg Q5M X 3 DOSES PRN SL Prn Chest Pain 12/31/16 14:15 08/27/16 14:14 Ondansetron HCl (Zofran) 4 mg Q6H PRN IVP Nausea & Vomiting 07/28/16 15:00 08/27/16 14:59 Polyethylene Glycol (Miralax) 17 gm DAILYPRN PRN GT Constipation 07/28/16 15:00 08/27/16 14:59 Risperidone (RisperDAL) 1 mg BID ORAL 07/28/16 18:00 08/27/16 17:59 08/20/16 17:54 Valproic Acid (Depakene) 500 mg EVERY 12 HOURS GT 07/28/16 21:00 08/27/16 20:59 08/20/16 21:44 Vancomycin HCl/ Dextrose (Vancomycin/D5W) 325 ml @ 162.5 mls/ hr Q12HR@0100,1300 IVPB 08/18/16 01:00 08/22/16 00:59 08/20/16 12:28 NEEL LUJAN Aug 20, 2016 23:31
[2016-08-21] VITALS (7 sets, daily range): BP systolic 92–97; BP diastolic 55–65
[2016-08-21] MEDS: Vancomycin 1.5 GM in D5W 325 ML IVPB SCH ×2 (00:23→13:20)
[2016-08-21 07:31] LABS: BASOPHILS % (AUTO) 0.6 % (0.0-2.0); EOSINOPHILS % (AUTO) 4.8 % (0.0-3.0); LYMPHOCYTES % (AUTO) 22.4 % (20.0-45.0); MEAN CORPUSCULAR HEMOGLOBIN 21.8 PG (27.0-31.0); MEAN CORPUSCULAR HGB CONC 30.8 G/DL (32.0-36.0); MEAN CORPUSCULAR VOLUME 71 FL (80-99); MEAN PLATELET VOLUME 8.6 FL (6.5-10.1); MONOCYTES % (AUTO) 11.4 % (1.0-10.0); NEUTROPHILS % (AUTO) 60.8 % (45.0-75.0); PLATELET COUNT 258 K/UL (150-450); RED BLOOD COUNT 5.11 M/UL (4.70-6.10); RED CELL DISTRIBUTION WIDTH 13.2 % (11.6-14.8); WHITE BLOOD COUNT 8.4 K/UL (4.8-10.8)
[2016-08-21 07:49] LABS: ANION GAP 12 (5-15); CALCIUM 8.9 mg/dL (8.6-10.2); CARBON DIOXIDE 25 mEQ/L (20-30); CHLORIDE 98 mEQ/L (98-107); CREATININE 0.5 mg/dL (0.7-1.2); GLOMERULAR FILTRATION RATE > 60 mL/min (>60); HEMOLYSIS 0; POTASSIUM 4.4 mEQ/L (3.4-4.9); SODIUM 135 mEQ/L (135-145)
[2016-08-21] MEDS: Valproic Acid 250mg/5ml Liquid GT SCH ×2 (08:17→20:14)
[2016-08-21] MEDS: levETIRAcetam 500mg/5ml Liquid GT SCH ×2 (08:18→20:15)
[2016-08-21] MEDS: Heparin 5000 units/ml inj SUBQ SCH ×2 (08:19→20:16)
--- NOTE | 2016-08-21 09:19 | GI Progress Note ---
Assessment/Plan Problems: (1) C. difficile colitis ICD Codes: A04.7 - Enterocolitis due to Clostridium difficile SNOMED: 448821020 (2) Malfunction of percutaneous endoscopic gastrostomy (PEG) tube ICD Codes: K94.23 - Gastrostomy malfunction SNOMED: 996287793 (3) Pancytopenia ICD Codes: D61.818 - Other pancytopenia SNOMED: 066973176 Status: stable, unchanged Status Narrative Discussed with Dr. Light. Assessment/Plan Assessment (1) Seizure (2) Schizophrenia (3) Diabetes (4) Hypertension (5) cerebral palsy with advanced mental retardation (6) Malfunction of gastrostomy tube - leakage (7) Anemia (8) C Diff Colitis Recommendations - ok for DC per GI standpoint - Continue TF - GT replaced/site care daily/prn - Iron panel WNL - stool OB negative - Abx for C Diff - H2 Subjective Subjective limited Objective Last 24 Hour Vital Signs Date Time Temp Pulse Resp B/P Pulse Ox O2 Delivery O2 Flow Rate FiO2 08/21/16 08:46 97.5 101 20 97/65 97 Room Air 08/21/16 07:56 100 20 Room Air 21 08/21/16 04:00 98.4 100 23 95/58 99 Room Air 08/21/16 00:05 97.7 101 22 97/57 98 Room Air 08/20/16 20:00 98.6 92 22 101/63 95 Room Air 08/20/16 19:30 95 20 Room Air 21 08/20/16 16:00 97.7 103 19 114/70 100 Room Air 08/20/16 12:42 97.3 99 19 89/58 93 Room Air Intake and Output 08/20/16 08/21/16 18:59 06:59 Intake Total 360 ml 854.0 ml Output Total 250 ml 450 ml Balance 110 ml 404.0 ml Free Water 100 ml IV Total 439.0 ml Tube Feeding 360 ml 315 ml Output Urine Total 250 ml 450 ml # Voids 1 Laboratory Tests Test 08/21/16 04:45 08/21/16 04:55 Sodium Level 135 mEQ/L (135-145) Potassium Level 4.4 mEQ/L (3.4-4.9) Chloride Level 98 mEQ/L (98-107) Carbon Dioxide Level 25 mEQ/L (20-30) Anion Gap 12 (5-15) Blood Urea Nitrogen 20 mg/dL (7-23) Creatinine 0.5 mg/dL (0.7-1.2) L Estimat Glomerular Filtration Rate > 60 mL/min (>60) Glucose Level 109 mg/dL (74-106) H Calcium Level 8.9 mg/dL (8.6-10.2) White Blood Count 8.4 K/UL (4.8-10.8) Red Blood Count 5.11 M/UL (4.70-6.10) Hemoglobin 11.2 G/DL (14.2-18.0) L Hematocrit 36.2 % (42.0-52.0) L Mean Corpuscular Volume 71 FL (80-99) L Mean Corpuscular Hemoglobin 21.8 PG (27.0-31.0) L Mean Corpuscular Hemoglobin Concent 30.8 G/DL (32.0-36.0) L Red Cell Distribution Width 13.2 % (11.6-14.8) Platelet Count 258 K/UL (150-450) Mean Platelet Volume 8.6 FL (6.5-10.1) Neutrophils (%) (Auto) 60.8 % (45.0-75.0) Lymphocytes (%) (Auto) 22.4 % (20.0-45.0) Monocytes (%) (Auto) 11.4 % (1.0-10.0) H Eosinophils (%) (Auto) 4.8 % (0.0-3.0) H Basophils (%) (Auto) 0.6 % (0.0-2.0) Height (Feet): 6 Height (Inches): 1.00 Weight (Pounds): 159 General Appearance: no apparent distress, alert Cardiovascular: normal rate Respiratory/Chest: normal breath sounds, no respiratory distress Abdominal Exam: GT site - c/d/i Objective no changes Chery Mcfarland N.P. Aug 21, 2016 09:19
--- NOTE | 2016-08-21 15:15 | General Progress Note ---
Assessment/Plan Problem List: (1) Pneumonia ICD Codes: J18.9 - Pneumonia, unspecified organism SNOMED: 741913823 (2) Sepsis ICD Codes: A41.9 - Sepsis, unspecified organism SNOMED: 19839169 (3) Attention to G-tube ICD Codes: Z43.1 - Encounter for attention to gastrostomy SNOMED: 303762497, 053894918 (4) Altered level of consciousness ICD Codes: R40.4 - Transient alteration of awareness SNOMED: 4837834 (5) Seizure disorder, partial, intractable ICD Codes: G40.119 - Seizure disorder, partial, intractable SNOMED: 129286913 Status: stable, progressing, tolerating diet Assessment/Plan o2 pulm tx abx ot pt diet psyc care dc if clear by pulm and id Subjective Constitutional: Reports: weakness Allergies: Coded Allergies: NO KNOWN DRUG ALLERGIES (Unverified Allergy, Unknown, 08/22/15) All Systems: reviewed and negative except above Subjective sleepy calm Objective Last 24 Hour Vital Signs Date Time Temp Pulse Resp B/P Pulse Ox O2 Delivery O2 Flow Rate FiO2 08/21/16 11:58 97.0 101 18 96/55 97 Room Air 08/21/16 08:46 97.5 101 20 97/65 97 Room Air 08/21/16 07:56 100 20 Room Air 08/21/16 04:00 98.4 100 23 95/58 99 Room Air 08/21/16 00:05 97.7 101 22 97/57 98 Room Air 08/20/16 20:00 98.6 92 22 101/63 95 Room Air 08/20/16 19:30 95 20 Room Air 21 08/20/16 16:00 97.7 103 19 114/70 100 Room Air Intake and Output 08/20/16 08/21/16 19:00 07:00 Intake Total 315 ml 854.0 ml Output Total 250 ml 450 ml Balance 65 ml 404.0 ml Free Water 100 ml IV Total 439.0 ml Tube Feeding 315 ml 315 ml Output Urine Total 250 ml 450 ml # Voids 1 Laboratory Tests 08/21/16 04:45: Sodium Level 135, Potassium Level 4.4, Chloride Level 98, Carbon Dioxide Level 25, Anion Gap 12, Blood Urea Nitrogen 20, Creatinine 0.5L, Estimat Glomerular Filtration Rate > 60, Glucose Level 109H, Calcium Level 8.9 08/21/16 04:55: White Blood Count 8.4, Red Blood Count 5.11, Hemoglobin 11.2L, Hematocrit 36.2L , Mean Corpuscular Volume 71L, Mean Corpuscular Hemoglobin 21.8L, Mean Corpuscular Hemoglobin Concent 30.8L, Red Cell Distribution Width 13.2, Platelet Count 258, Mean Platelet Volume 8.6, Neutrophils (%) (Auto) 60.8, Lymphocytes (%) (Auto) 22.4, Monocytes (%) (Auto) 11.4H, Eosinophils (%) (Auto) 4.8H, Basophils (%) (Auto) 0.6 Height (Feet): 6 Height (Inches): 1.00 Weight (Pounds): 159 General Appearance: lethargic EENT: normal ENT inspection Neck: normal alignment Cardiovascular: normal peripheral pulses, normal rate, regular rhythm Respiratory/Chest: chest wall non-tender, lungs clear, normal breath sounds Abdomen: normal bowel sounds, non tender, soft Extremities: normal inspection Edema: no edema noted Arm (L), no edema noted Arm (R), no edema noted Leg (L), no edema noted Leg (R), no edema noted Pedal (L), no edema noted Pedal (R), no edema noted Generalized Neurologic: motor weakness Skin: normal pigmentation, warm/dry TONYA GOOD Aug 21, 2016 15:15
--- NOTE | 2016-08-21 16:30 | Cardiac Electrophysiology PN ---
Assessment/Plan Assessment/Plan 1. Sinus Tachycardia due to sepsis and dehydration. 2. Pseudomonas aeruginosa pneumonia and sepsis. On iv amikacin and vancomycin. 3. Cerebral palsy. 4. Seizure disorder.Keppra 5. Schizophrenia. Risperdal 6. C. Diff On Vancomycin via GT. 7. S/P Gastrostomy DW RN Subjective Subjective Comfortable in NAD. On iv antibiotics.RN at bedside. Objective Last 24 Hour Vital Signs Date Time Temp Pulse Resp B/P Pulse Ox O2 Delivery O2 Flow Rate FiO2 08/21/16 11:58 97.0 101 18 96/55 97 Room Air 08/21/16 08:46 97.5 101 20 97/65 97 Room Air 08/21/16 07:56 100 20 Room Air 21 08/21/16 04:00 98.4 100 23 95/58 99 Room Air 08/21/16 00:05 97.7 101 22 97/57 98 Room Air 08/20/16 20:00 98.6 92 22 101/63 95 Room Air 08/20/16 19:30 95 20 Room Air 21 Intake and Output 08/20/16 08/21/16 19:00 07:00 Intake Total 315 ml 854.0 ml Output Total 250 ml 450 ml Balance 65 ml 404.0 ml Free Water 100 ml IV Total 439.0 ml Tube Feeding 315 ml 315 ml Output Urine Total 250 ml 450 ml # Voids 1 Laboratory Tests Test 08/21/16 04:45 08/21/16 04:55 Sodium Level 135 mEQ/L (135-145) Potassium Level 4.4 mEQ/L (3.4-4.9) Chloride Level 98 mEQ/L (98-107) Carbon Dioxide Level 25 mEQ/L (20-30) Anion Gap 12 (5-15) Blood Urea Nitrogen 20 mg/dL (7-23) Creatinine 0.5 mg/dL (0.7-1.2) L Estimat Glomerular Filtration Rate > 60 mL/min (>60) Glucose Level 109 mg/dL (74-106) H Calcium Level 8.9 mg/dL (8.6-10.2) White Blood Count 8.4 K/UL (4.8-10.8) Red Blood Count 5.11 M/UL (4.70-6.10) Hemoglobin 11.2 G/DL (14.2-18.0) L Hematocrit 36.2 % (42.0-52.0) L Mean Corpuscular Volume 71 FL (80-99) L Mean Corpuscular Hemoglobin 21.8 PG (27.0-31.0) L Mean Corpuscular Hemoglobin Concent 30.8 G/DL (32.0-36.0) L Red Cell Distribution Width 13.2 % (11.6-14.8) Platelet Count 258 K/UL (150-450) Mean Platelet Volume 8.6 FL (6.5-10.1) Neutrophils (%) (Auto) 60.8 % (45.0-75.0) Lymphocytes (%) (Auto) 22.4 % (20.0-45.0) Monocytes (%) (Auto) 11.4 % (1.0-10.0) H Eosinophils (%) (Auto) 4.8 % (0.0-3.0) H Basophils (%) (Auto) 0.6 % (0.0-2.0) Objective HEAD AND NECK: Shows no JVD. LUNGS: Coarse rhonchi. CARDIOVASCULAR: Irregularly irregular S1 and S2 with no gallop or murmur. Tachycardic. ABDOMEN: G-tube intact EXTREMITIES: No pitting edema. HUMPHREY FRANCO Aug 21, 2016 16:30
--- NOTE | 2016-08-21 17:29 | Infectious Diseases Prog Note ---
Assessment/Plan Problems: (1) Sepsis Assessment & Plan: continue amikacin to cover for pseudomonas aeruginosa pneumonia and vancomycin empirically for two weeks , blood culture showed no growth so far. EOT 08/21/16 (2) C. difficile colitis Assessment & Plan: received vancomycin orally for two weeks total , improved. (3) Malfunction of percutaneous endoscopic gastrostomy (PEG) tube Assessment & Plan: S/P replacement, GI is following (4) Diabetes Assessment & Plan: recommend tight glycemic control to keep fasting less than 120, and premeal less than 130 (5) Dermatitis Assessment & Plan: due to bile acid irritation from the G tube site leakage, continue local skin care and G tube care Subjective ROS Limited/Unobtainable: Yes Allergies: Coded Allergies: NO KNOWN DRUG ALLERGIES (Unverified Allergy, Unknown, 08/22/15) Subjective he is nonverbal, demented, resting in bed, developed fever today , no diarrhea as per nursing staff. Objective Vital Signs Last 24 Hour Vital Signs Date Time Temp Pulse Resp B/P Pulse Ox O2 Delivery O2 Flow Rate FiO2 08/21/16 16:00 97.9 95 19 92/58 94 Room Air 08/21/16 11:58 97.0 101 18 96/55 97 Room Air 08/21/16 08:46 97.5 101 20 97/65 97 Room Air 08/21/16 07:56 100 20 Room Air 21 08/21/16 04:00 98.4 100 23 95/58 99 Room Air 08/21/16 00:05 97.7 101 22 97/57 98 Room Air 08/20/16 20:00 98.6 92 22 101/63 95 Room Air 08/20/16 19:30 95 20 Room Air 21 Height (Feet): 6 Height (Inches): 1.00 Weight (Pounds): 159 General Appearance: WD/WN, no acute distress HEENT: normocephalic, atraumatic, anicteric, mucous membranes moist Respiratory/Chest: chest wall non-tender, lungs clear, normal breath sounds, no respiratory distress, no accessory muscle use Cardiovascular: normal peripheral pulses, normal rate, regular rhythm, no gallop/murmur Abdomen: normal bowel sounds, soft, non tender, no organomegaly, non distended , no mass Extremities: no cyanosis, no clubbing Skin: no rash, no lesions, no ulcers Laboratory Tests Test 08/21/16 04:45 08/21/16 04:55 Sodium Level 135 mEQ/L (135-145) Potassium Level 4.4 mEQ/L (3.4-4.9) Chloride Level 98 mEQ/L (98-107) Carbon Dioxide Level 25 mEQ/L (20-30) Anion Gap 12 (5-15) Blood Urea Nitrogen 20 mg/dL (7-23) Creatinine 0.5 mg/dL (0.7-1.2) L Estimat Glomerular Filtration Rate > 60 mL/min (>60) Glucose Level 109 mg/dL (74-106) H Calcium Level 8.9 mg/dL (8.6-10.2) White Blood Count 8.4 K/UL (4.8-10.8) Red Blood Count 5.11 M/UL (4.70-6.10) Hemoglobin 11.2 G/DL (14.2-18.0) L Hematocrit 36.2 % (42.0-52.0) L Mean Corpuscular Volume 71 FL (80-99) L Mean Corpuscular Hemoglobin 21.8 PG (27.0-31.0) L Mean Corpuscular Hemoglobin Concent 30.8 G/DL (32.0-36.0) L Red Cell Distribution Width 13.2 % (11.6-14.8) Platelet Count 258 K/UL (150-450) Mean Platelet Volume 8.6 FL (6.5-10.1) Neutrophils (%) (Auto) 60.8 % (45.0-75.0) Lymphocytes (%) (Auto) 22.4 % (20.0-45.0) Monocytes (%) (Auto) 11.4 % (1.0-10.0) H Eosinophils (%) (Auto) 4.8 % (0.0-3.0) H Basophils (%) (Auto) 0.6 % (0.0-2.0) Current Medications Medications (Trade) Dose Ordered Sig/Monalisa Route PRN Reason Start Time Stop Time Status Last Admin Dose Admin Acetaminophen (Tylenol) 650 mg Q4H PRN ORAL fever 07/28/16 15:00 08/27/16 14:59 08/13/16 16:26 Albuterol/ Ipratropium 3 ml 3 ml Q4H PRN HHN Shortness of Breath 08/17/16 07:30 08/22/16 07:29 Amikacin Protocol (Amikacin pharmacy to dose) 1 ea DAILY PRN MISC Per rx protocol 08/06/16 17:00 09/05/16 16:59 Amikacin Sulfate 1000 mg/Sodium Chloride 114 ml @ 228 mls/hr Q24H IV 08/17/16 20:00 08/22/16 19:59 08/20/16 21:44 Clotrimazole (Lotrimin) 1 applic THREE TIMES A DAY TOPIC 07/29/16 14:30 08/28/16 14:29 08/21/16 17:23 Finasteride (Proscar) 5 mg DAILY GT 07/29/16 09:00 08/28/16 08:59 08/21/16 08:17 Heparin Sodium (Porcine) (Heparin 5000 units/ml) 5,000 units EVERY 12 HOURS SUBQ 07/28/16 21:00 08/27/16 20:59 08/21/16 08:19 Levetiracetam (Keppra) 1,500 mg Q12HR GT 07/28/16 21:00 08/27/16 20:59 08/21/16 08:18 Nitroglycerin (Ntg) 0.4 mg Q5M X 3 DOSES PRN SL Prn Chest Pain 07/28/16 14:15 08/27/16 14:14 Ondansetron HCl (Zofran) 4 mg Q6H PRN IVP Nausea & Vomiting 07/28/16 15:00 08/27/16 14:59 Polyethylene Glycol (Miralax) 17 gm DAILYPRN PRN GT Constipation 07/28/16 15:00 08/27/16 14:59 Risperidone (RisperDAL) 1 mg BID ORAL 07/28/16 18:00 08/27/16 17:59 08/21/16 17:23 Valproic Acid (Depakene) 500 mg EVERY 12 HOURS GT 07/28/16 21:00 08/27/16 20:59 08/21/16 08:17 Vancomycin HCl/ Dextrose (Vancomycin/D5W) 325 ml @ 162.5 mls/ hr Q12HR@0100,1300 IVPB 08/18/16 01:00 08/22/16 00:59 08/21/16 13:20 Tavo Ramirez M.D. Aug 21, 2016 17:29
[2016-08-21] MEDS: Amikacin 1,000 MG in NS 110 ML IV SCH (20:14)
--- NOTE | 2016-08-21 23:59 | Pulmonology Progress Note ---
Assessment/Plan Problems: (1) Hypertension (2) Seizure (3) Sepsis (4) UTI (urinary tract infection) (5) Malfunction of gastrostomy tube (6) snf resident (7) cerebral pulsy with advanced mental retardation (8) Schizophrenia Assessment/Plan Assessment/Plan GI to follow up LOC and mentation monitored Tight BP and BG control Aspiration precautions Seizure precautions Continue ANTBX Subjective ROS Limited/Unobtainable: Yes Neurologic: Reports: seizures Allergies: Coded Allergies: NO KNOWN DRUG ALLERGIES (Unverified Allergy, Unknown, 08/22/15) Objective Last 24 Hour Vital Signs Date Time Temp Pulse Resp B/P Pulse Ox O2 Delivery O2 Flow Rate FiO2 08/21/16 21:17 97.7 109 18 97/63 94 Room Air 08/21/16 20:19 108 20 Room Air 21 08/21/16 20:00 97.7 109 18 97/63 95 Room Air 08/21/16 16:00 97.9 95 19 92/58 94 Room Air 08/21/16 11:58 97.0 101 18 96/55 97 Room Air 08/21/16 08:46 97.5 101 20 97/65 97 Room Air 08/21/16 07:56 100 20 Room Air 21 08/21/16 04:00 98.4 100 23 95/58 99 Room Air 08/21/16 00:05 97.7 101 22 97/57 98 Room Air Intake and Output 08/20/16 08/21/16 19:00 07:00 Intake Total 315 ml 854.0 ml Output Total 250 ml 450 ml Balance 65 ml 404.0 ml Free Water 100 ml IV Total 439.0 ml Tube Feeding 315 ml 315 ml Output Urine Total 250 ml 450 ml # Voids 1 General Appearance: no acute distress HEENT: normocephalic, atraumatic, PERRL Respiratory/Chest: chest wall non-tender, normal breath sounds, no respiratory distress Cardiovascular: normal peripheral pulses, normal rate, regular rhythm, no JVD Abdomen: hyperactive bowel sounds, distended, guarding, tender Extremities: no cyanosis Skin: rash, lesions Neurologic/Psychiatric: abnormal CN, motor weakness, disoriented, unresponsiveness, aphasia, depressed affect Laboratory Tests 08/21/16 04:45: Sodium Level 135, Potassium Level 4.4, Chloride Level 98, Carbon Dioxide Level 25, Anion Gap 12, Blood Urea Nitrogen 20, Creatinine 0.5L, Estimat Glomerular Filtration Rate > 60, Glucose Level 109H, Calcium Level 8.9 08/21/16 04:55: White Blood Count 8.4, Red Blood Count 5.11, Hemoglobin 11.2L, Hematocrit 36.2L , Mean Corpuscular Volume 71L, Mean Corpuscular Hemoglobin 21.8L, Mean Corpuscular Hemoglobin Concent 30.8L, Red Cell Distribution Width 13.2, Platelet Count 258, Mean Platelet Volume 8.6, Neutrophils (%) (Auto) 60.8, Lymphocytes (%) (Auto) 22.4, Monocytes (%) (Auto) 11.4H, Eosinophils (%) (Auto) 4.8H, Basophils (%) (Auto) 0.6 Current Medications Medications (Trade) Dose Ordered Sig/Monalisa Route PRN Reason Start Time Stop Time Status Last Admin Dose Admin Acetaminophen (Tylenol) 650 mg Q4H PRN ORAL fever 07/28/16 15:00 08/27/16 14:59 08/13/16 16:26 Albuterol/ Ipratropium 3 ml 3 ml Q4H PRN HHN Shortness of Breath 08/17/16 07:30 08/22/16 07:29 Amikacin Protocol (Amikacin pharmacy to dose) 1 ea DAILY PRN MISC Per rx protocol 08/06/16 17:00 09/05/16 16:59 Amikacin Sulfate 1000 mg/Sodium Chloride 114 ml @ 228 mls/hr Q24H IV 08/17/16 20:00 08/22/16 19:59 08/21/16 20:14 Clotrimazole (Lotrimin) 1 applic THREE TIMES A DAY TOPIC 07/29/16 14:30 08/28/16 14:29 08/21/16 17:23 Finasteride (Proscar) 5 mg DAILY GT 07/29/16 09:00 08/28/16 08:59 08/21/16 08:17 Heparin Sodium (Porcine) (Heparin 5000 units/ml) 5,000 units EVERY 12 HOURS SUBQ 07/28/16 21:00 08/27/16 20:59 08/21/16 20:16 Levetiracetam (Keppra) 1,500 mg Q12HR GT 07/28/16 21:00 08/27/16 20:59 08/21/16 20:15 Nitroglycerin (Ntg) 0.4 mg Q5M X 3 DOSES PRN SL Prn Chest Pain 07/28/16 14:15 08/27/16 14:14 Ondansetron HCl (Zofran) 4 mg Q6H PRN IVP Nausea & Vomiting 07/28/16 15:00 08/27/16 14:59 Polyethylene Glycol (Miralax) 17 gm DAILYPRN PRN GT Constipation 07/28/16 15:00 08/27/16 14:59 Risperidone (RisperDAL) 1 mg BID ORAL 07/28/16 18:00 08/27/16 17:59 08/21/16 17:23 Valproic Acid (Depakene) 500 mg EVERY 12 HOURS GT 07/28/16 21:00 08/27/16 20:59 08/21/16 20:14 Vancomycin HCl/ Dextrose (Vancomycin/D5W) 325 ml @ 162.5 mls/ hr Q12HR@0100,1300 IVPB 08/18/16 01:00 08/22/16 00:59 08/21/16 13:20 NEEL LUJAN Aug 21, 2016 23:59
[2016-08-22] VITALS: BP 101/67
[2016-08-22 04:00] VITALS: BP 101/66
[2016-08-22 07:25] LABS: EOSINOPHILS % (AUTO) 5.3 % (0.0-3.0); LYMPHOCYTES % (AUTO) 23.7 % (20.0-45.0); MEAN CORPUSCULAR HEMOGLOBIN 21.5 PG (27.0-31.0); MEAN CORPUSCULAR HGB CONC 30.5 G/DL (32.0-36.0); MEAN CORPUSCULAR VOLUME 70 FL (80-99); MEAN PLATELET VOLUME 9.5 FL (6.5-10.1); MONOCYTES % (AUTO) 11.8 % (1.0-10.0); NEUTROPHILS % (AUTO) 58.2 % (45.0-75.0); PLATELET COUNT 272 K/UL (150-450); RED BLOOD COUNT 5.46 M/UL (4.70-6.10); RED CELL DISTRIBUTION WIDTH 13.3 % (11.6-14.8); WHITE BLOOD COUNT 8.4 K/UL (4.8-10.8)
[2016-08-22] MEDS: levETIRAcetam 500mg/5ml Liquid GT SCH ×2 (07:37→20:11)
[2016-08-22] MEDS: Valproic Acid 250mg/5ml Liquid GT SCH ×2 (07:38→20:11)
[2016-08-22] MEDS: Heparin 5000 units/ml inj SUBQ SCH ×2 (07:42→20:10)
[2016-08-22 07:47] LABS: ANION GAP 15 (5-15); CARBON DIOXIDE 24 mEQ/L (20-30); CHLORIDE 98 mEQ/L (98-107); CREATININE 0.6 mg/dL (0.7-1.2); GLOMERULAR FILTRATION RATE > 60 mL/min (>60); HEMOLYSIS 1; POTASSIUM 4.5 mEQ/L (3.4-4.9); SODIUM 137 mEQ/L (135-145)
[2016-08-22 08:00] VITALS: BP 99/66
[2016-08-22 12:00] VITALS: BP 96/61
--- NOTE | 2016-08-22 13:27 | General Progress Note ---
Assessment/Plan Problem List: (1) Pneumonia ICD Codes: J18.9 - Pneumonia, unspecified organism SNOMED: 964905008 (2) Sepsis ICD Codes: A41.9 - Sepsis, unspecified organism SNOMED: 93156219 (3) Attention to G-tube ICD Codes: Z43.1 - Encounter for attention to gastrostomy SNOMED: 668169922, 230743374 (4) Altered level of consciousness ICD Codes: R40.4 - Transient alteration of awareness SNOMED: 6212956 (5) Seizure disorder, partial, intractable ICD Codes: G40.119 - Seizure disorder, partial, intractable SNOMED: 708826068 Status: stable, progressing, tolerating diet Assessment/Plan o2 pulm tx abx ot pt diet psyc care dc if clear by pulm and id Subjective Constitutional: Reports: weakness Allergies: Coded Allergies: NO KNOWN DRUG ALLERGIES (Unverified Allergy, Unknown, 08/22/15) All Systems: reviewed and negative except above Subjective sleepy calm Objective Last 24 Hour Vital Signs Date Time Temp Pulse Resp B/P Pulse Ox O2 Delivery O2 Flow Rate FiO2 08/22/16 12:00 97.7 90 19 96/61 96 Room Air 08/22/16 11:50 103 18 Room Air 08/22/16 08:00 97.9 99 20 99/66 96 Room Air 08/22/16 04:00 97.9 103 16 101/66 96 Room Air 08/22/16 00:00 97.7 105 16 101/67 96 Room Air 08/21/16 21:17 97.7 109 18 97/63 94 Room Air 08/21/16 20:19 108 20 Room Air 21 08/21/16 20:00 97.7 109 18 97/63 95 Room Air 08/21/16 16:00 97.9 95 19 92/58 94 Room Air Intake and Output 08/21/16 08/22/16 19:00 07:00 Intake Total 545 ml 363 ml Output Total 350 ml 1100 ml Balance 195 ml -737 ml Free Water 50 ml IV Total 228 ml Tube Feeding 495 ml 135 ml Output Urine Total 350 ml 1100 ml # Bowel Movements 1 1 Laboratory Tests 08/22/16 05:15: White Blood Count 8.4, Red Blood Count 5.46, Hemoglobin 11.7L, Hematocrit 38.5L , Mean Corpuscular Volume 70L, Mean Corpuscular Hemoglobin 21.5L, Mean Corpuscular Hemoglobin Concent 30.5L, Red Cell Distribution Width 13.3, Platelet Count 272, Mean Platelet Volume 9.5, Neutrophils (%) (Auto) 58.2, Lymphocytes (%) (Auto) 23.7, Monocytes (%) (Auto) 11.8H, Eosinophils (%) (Auto) 5.3H, Basophils (%) (Auto) 1.0, Sodium Level 137, Potassium Level 4.5, Chloride Level 98, Carbon Dioxide Level 24, Anion Gap 15, Blood Urea Nitrogen 21, Creatinine 0.6L, Estimat Glomerular Filtration Rate > 60, Glucose Level 109H, Calcium Level 9.0 Height (Feet): 6 Height (Inches): 1.00 Weight (Pounds): 159 General Appearance: lethargic EENT: normal ENT inspection Neck: normal alignment Cardiovascular: normal peripheral pulses, normal rate, regular rhythm Respiratory/Chest: chest wall non-tender, lungs clear, normal breath sounds Abdomen: normal bowel sounds, non tender, soft Extremities: normal inspection Edema: no edema noted Arm (L), no edema noted Arm (R), no edema noted Leg (L), no edema noted Leg (R), no edema noted Pedal (L), no edema noted Pedal (R), no edema noted Generalized Neurologic: motor weakness Skin: normal pigmentation, warm/dry TONYA GOOD Aug 22, 2016 13:27
--- NOTE | 2016-08-22 14:42 | GI Progress Note ---
Assessment/Plan Problems: (1) C. difficile colitis ICD Codes: A04.7 - Enterocolitis due to Clostridium difficile SNOMED: 489799324 (2) Malfunction of percutaneous endoscopic gastrostomy (PEG) tube ICD Codes: K94.23 - Gastrostomy malfunction SNOMED: 293316197 (3) Pancytopenia ICD Codes: D61.818 - Other pancytopenia SNOMED: 237468977 Status: stable, unchanged Status Narrative Discussed with Dr. Light. Assessment/Plan Assessment (1) Seizure (2) Schizophrenia (3) Diabetes (4) Hypertension (5) cerebral palsy with advanced mental retardation (6) Malfunction of gastrostomy tube - leakage (7) Anemia (8) C Diff Colitis Recommendations - ok for DC per GI standpoint - Continue TF - GT replaced/site care daily/prn - Iron panel WNL - stool OB negative - Abx for C Diff - H2 Subjective Subjective limited Objective Last 24 Hour Vital Signs Date Time Temp Pulse Resp B/P Pulse Ox O2 Delivery O2 Flow Rate FiO2 08/22/16 12:00 97.7 90 19 96/61 96 Room Air 08/22/16 11:50 103 18 Room Air 08/22/16 08:00 97.9 99 20 99/66 96 Room Air 08/22/16 04:00 97.9 103 16 101/66 96 Room Air 08/22/16 00:00 97.7 105 16 101/67 96 Room Air 08/21/16 21:17 97.7 109 18 97/63 94 Room Air 08/21/16 20:19 108 20 Room Air 21 08/21/16 20:00 97.7 109 18 97/63 95 Room Air 08/21/16 16:00 97.9 95 19 92/58 94 Room Air Intake and Output 08/21/16 08/22/16 19:00 07:00 Intake Total 545 ml 363 ml Output Total 350 ml 1100 ml Balance 195 ml -737 ml Free Water 50 ml IV Total 228 ml Tube Feeding 495 ml 135 ml Output Urine Total 350 ml 1100 ml # Bowel Movements 1 1 Laboratory Tests Test 08/22/16 05:15 White Blood Count 8.4 K/UL (4.8-10.8) Red Blood Count 5.46 M/UL (4.70-6.10) Hemoglobin 11.7 G/DL (14.2-18.0) L Hematocrit 38.5 % (42.0-52.0) L Mean Corpuscular Volume 70 FL (80-99) L Mean Corpuscular Hemoglobin 21.5 PG (27.0-31.0) L Mean Corpuscular Hemoglobin Concent 30.5 G/DL (32.0-36.0) L Red Cell Distribution Width 13.3 % (11.6-14.8) Platelet Count 272 K/UL (150-450) Mean Platelet Volume 9.5 FL (6.5-10.1) Neutrophils (%) (Auto) 58.2 % (45.0-75.0) Lymphocytes (%) (Auto) 23.7 % (20.0-45.0) Monocytes (%) (Auto) 11.8 % (1.0-10.0) H Eosinophils (%) (Auto) 5.3 % (0.0-3.0) H Basophils (%) (Auto) 1.0 % (0.0-2.0) Sodium Level 137 mEQ/L (135-145) Potassium Level 4.5 mEQ/L (3.4-4.9) Chloride Level 98 mEQ/L (98-107) Carbon Dioxide Level 24 mEQ/L (20-30) Anion Gap 15 (5-15) Blood Urea Nitrogen 21 mg/dL (7-23) Creatinine 0.6 mg/dL (0.7-1.2) L Estimat Glomerular Filtration Rate > 60 mL/min (>60) Glucose Level 109 mg/dL (74-106) H Calcium Level 9.0 mg/dL (8.6-10.2) Height (Feet): 6 Height (Inches): 1.00 Weight (Pounds): 159 General Appearance: no apparent distress, alert Cardiovascular: normal rate Respiratory/Chest: normal breath sounds, no respiratory distress Abdominal Exam: normal bowel sounds, non tender, soft, GT site - c/d/i Objective no changes Chery Mcfarland N.P. Aug 22, 2016 14:42
--- NOTE | 2016-08-22 14:49 | History and Physical ---
History of Present Illness General Date patient seen: Jul 27, 2016 Present Illness HPI Allergies: Coded Allergies: NO KNOWN DRUG ALLERGIES (Unverified Allergy, Unknown, 08/22/15) Medication History Scheduled Amikacin Sulfate (Amikacin Sulfate*), 1,000 MG IJ QOD, (Reported) Ceftriaxone Sod (Ceftriaxone 1 gm-D5w Bag), 1 GM IVPB DAILY, (Reported) Docusate Sodium (Docusate Sodium), 100 MG GT TWICE A DAY, (Reported) Famotidine (Pepcid), 20 MG GT BEDTIME, (Reported) Finasteride* (Proscar*), 5 MG DAILY, (Reported) Finasteride* (Proscar*), 5 MG ORAL DAILY, (Reported) Fluconazole* (Diflucan*), 200 MG GT DAILY, (Reported) Insulin Glargine (Lantus), 13 SUBQ TWICE A DAY, (Reported) Ipratropium/Albuterol Sulfate (DuoNeb 0.5-3(2.5)mg/3ml), 3 ML HHN Q6HR, ( Reported) Levetiracetam (Keppra), 1,500 MG GT Q12HR, (Reported) Metoprolol Tartrate (Metoprolol Tartrate), 25 MG GT EVERY 12 HOURS, (Reported) Ranitidine Hcl* (Zantac*), 300 MG GT DAILY, (Reported) Risperidone* (Risperdal*), 1 MG ORAL BID Valproic Acid (Depakene), 500 MG GT EVERY 12 HOURS, (Reported) Vancomycin Hcl (Vancomycin Hcl), 125 MG PO FOUR TIMES A DAY, (Reported) Vancomycin Hcl/D5w (Vancomycin-D5w 1 G/250 Ml), 1.25 GM IVPB Q12HR, (Reported) Scheduled PRN Acetaminophen (Acetaminophen), 325 MG ORAL EVERY 6 HOURS PRN for Mild Pain/Temp > 100.5, (Reported) Ipratropium/Albuterol Sulfate (DuoNeb 0.5-3(2.5)mg/3ml), 3 ML HHN Q4HR PRN for Shortness of Breath, (Reported) Polyethylene Glycol 3350* (Miralax*), 17 GM GT DAILY PRN for Constipation, ( Reported) Miscellaneous Medications Amikacin Sulfate (Amikin), 1,000 MG IM, (Reported) Insulin Aspart (Novolog Flexpen), (Reported) Insuln Asp Prt/Insulin Aspart (Novolog Mix 70-30 Flexpen Syrn), Unknown Dose SQ, (Reported) Patient History Healthcare decision maker Resuscitation status Advanced Directive on File Past Medical/Surgical History Past Medical/Surgical History: (1) Schizophrenia (2) cerebral pulsy with advanced mental retardation (3) Hypertension (4) Diabetes (5) PEG (percutaneous endoscopic gastrostomy) adjustment/replacement/removal (6) Seizure disorder, partial, intractable (7) Malfunction of percutaneous endoscopic gastrostomy (PEG) tube Review of Systems ROS Narrative Physical Exam Physical Exam Narrative Last 24 Hour Vital Signs Date Time Temp Pulse Resp B/P Pulse Ox O2 Delivery O2 Flow Rate FiO2 08/22/16 12:00 97.7 90 19 96/61 96 Room Air 08/22/16 11:50 103 18 Room Air 21 08/22/16 08:00 97.9 99 20 99/66 96 Room Air 08/22/16 04:00 97.9 103 16 101/66 96 Room Air 08/22/16 00:00 97.7 105 16 101/67 96 Room Air 08/21/16 21:17 97.7 109 18 97/63 94 Room Air 08/21/16 20:19 108 20 Room Air 21 08/21/16 20:00 97.7 109 18 97/63 95 Room Air 08/21/16 16:00 97.9 95 19 92/58 94 Room Air Intake and Output 08/21/16 08/22/16 19:00 07:00 Intake Total 545 ml 363 ml Output Total 350 ml 1100 ml Balance 195 ml -737 ml Free Water 50 ml IV Total 228 ml Tube Feeding 495 ml 135 ml Output Urine Total 350 ml 1100 ml # Bowel Movements 1 1 Laboratory Tests Test 08/22/16 05:15 White Blood Count 8.4 K/UL (4.8-10.8) Red Blood Count 5.46 M/UL (4.70-6.10) Hemoglobin 11.7 G/DL (14.2-18.0) L Hematocrit 38.5 % (42.0-52.0) L Mean Corpuscular Volume 70 FL (80-99) L Mean Corpuscular Hemoglobin 21.5 PG (27.0-31.0) L Mean Corpuscular Hemoglobin Concent 30.5 G/DL (32.0-36.0) L Red Cell Distribution Width 13.3 % (11.6-14.8) Platelet Count 272 K/UL (150-450) Mean Platelet Volume 9.5 FL (6.5-10.1) Neutrophils (%) (Auto) 58.2 % (45.0-75.0) Lymphocytes (%) (Auto) 23.7 % (20.0-45.0) Monocytes (%) (Auto) 11.8 % (1.0-10.0) H Eosinophils (%) (Auto) 5.3 % (0.0-3.0) H Basophils (%) (Auto) 1.0 % (0.0-2.0) Sodium Level 137 mEQ/L (135-145) Potassium Level 4.5 mEQ/L (3.4-4.9) Chloride Level 98 mEQ/L (98-107) Carbon Dioxide Level 24 mEQ/L (20-30) Anion Gap 15 (5-15) Blood Urea Nitrogen 21 mg/dL (7-23) Creatinine 0.6 mg/dL (0.7-1.2) L Estimat Glomerular Filtration Rate > 60 mL/min (>60) Glucose Level 109 mg/dL (74-106) H Calcium Level 9.0 mg/dL (8.6-10.2) Height (Feet): 6 Height (Inches): 1.00 Weight (Pounds): 159 Medications Current Medications Medications (Trade) Dose Ordered Sig/Monalisa Route PRN Reason Start Time Stop Time Status Last Admin Dose Admin Acetaminophen (Tylenol) 650 mg Q4H PRN ORAL fever 07/28/16 15:00 08/27/16 14:59 08/13/16 16:26 Amikacin Protocol 1 ea 1 ea DAILY PRN MISC Per rx protocol 08/06/16 17:00 09/05/16 16:59 Amikacin Sulfate/ Sodium Chloride (Amikin/Sodium Chloride) 114 ml @ 228 mls/hr Q24H IV 08/17/16 20:00 08/22/16 19:59 08/21/16 20:14 Clotrimazole (Lotrimin) 1 applic THREE TIMES A DAY TOPIC 07/29/16 14:30 08/28/16 14:29 08/22/16 13:55 Finasteride (Proscar) 5 mg DAILY GT 07/29/16 09:00 08/28/16 08:59 08/22/16 07:38 Heparin Sodium (Porcine) (Heparin 5000 units/ml) 5,000 units EVERY 12 HOURS SUBQ 07/28/16 21:00 08/27/16 20:59 08/22/16 07:42 Levetiracetam (Keppra) 1,500 mg Q12HR GT 07/28/16 21:00 08/27/16 20:59 08/22/16 07:37 Nitroglycerin (Ntg) 0.4 mg Q5M X 3 DOSES PRN SL Prn Chest Pain 07/28/16 14:15 08/27/16 14:14 Ondansetron HCl (Zofran) 4 mg Q6H PRN IVP Nausea & Vomiting 07/28/16 15:00 08/27/16 14:59 Polyethylene Glycol (Miralax) 17 gm DAILYPRN PRN GT Constipation 07/28/16 15:00 08/27/16 14:59 Risperidone (RisperDAL) 1 mg BID ORAL 07/28/16 18:00 08/27/16 17:59 08/22/16 07:38 Valproic Acid (Depakene) 500 mg EVERY 12 HOURS GT 07/28/16 21:00 08/27/16 20:59 08/22/16 07:38 Assessment/Plan Assessment/Plan Lia Desir NP (Vanchtein) Aug 22, 2016 14:49
--- NOTE | 2016-08-22 14:56 | History & Physical ---
History and Physical History & Physicial HISTORY AND PHYSICAL History of Present Illness General Date patient seen: Jul 27, 2016 Chief Complaint: Malfunctioning Gastric Tube Referring physician: Dr. Johnson Reason for Consultation: inpatient management of sepsis Present Illness HPI 60-year-old male with Cerebral Palsy, Gtube, longterm resident He was just in ER for G-tube replacement. He was sent in again because of tachy cardia and leakage form gtube site. Patient cant give any history and all the information is obtained from the chart. Allergies: Coded Allergies: NO KNOWN DRUG ALLERGIES (Unverified Allergy, Unknown, 08/22/15) Medication History Scheduled Ceftriaxone Sod (Ceftriaxone 1 gm-D5w Bag), 1 GM IVPB DAILY, (Reported) Docusate Sodium (Docusate Sodium), 100 MG GT TWICE A DAY, (Reported) Famotidine (Pepcid), 20 MG GT BEDTIME, (Reported) Finasteride* (Proscar*), 5 MG DAILY, (Reported) Finasteride* (Proscar*), 5 MG ORAL DAILY, (Reported) Fluconazole* (Diflucan*), 200 MG GT DAILY, (Reported) Insulin Glargine (Lantus), 13 SUBQ TWICE A DAY, (Reported) Ipratropium/Albuterol Sulfate (DuoNeb 0.5-3(2.5)mg/3ml), 3 ML HHN Q6HR, ( Reported) Levetiracetam (Keppra), 1,500 MG GT Q12HR, (Reported) Metoprolol Tartrate (Metoprolol Tartrate), 25 MG GT EVERY 12 HOURS, (Reported) Ranitidine Hcl* (Zantac*), 300 MG GT DAILY, (Reported) Risperidone* (Risperdal*), 1 MG ORAL BID Valproic Acid (Depakene), 500 MG GT EVERY 12 HOURS, (Reported) Scheduled PRN Acetaminophen (Acetaminophen), 325 MG ORAL EVERY 6 HOURS PRN for Mild Pain/Temp > 100.5, (Reported) Ipratropium/Albuterol Sulfate (DuoNeb 0.5-3(2.5)mg/3ml), 3 ML HHN Q4HR PRN for Shortness of Breath, (Reported) Polyethylene Glycol 3350* (Miralax*), 17 GM GT DAILY PRN for Constipation, ( Reported) Miscellaneous Medications Insulin Aspart (Novolog Flexpen), (Reported) Insuln Asp Prt/Insulin Aspart (Novolog Mix 70-30 Flexpen Syrn), Unknown Dose SQ, (Reported) Patient History Healthcare decision maker Resuscitation status Advanced Directive on File Past Medical/Surgical History Past Medical/Surgical History: (1) Seizure (2) Schizophrenia (3) Diabetes (4) Hypertension (5) cerebral pulsy with advanced mental retardation (6) Malfunction of gastrostomy tube Social History Social History: (1) shelter resident ROS Review of Systems All Other Systems: negative except mentioned in HPI Physical Exam Physical Exam General Appearance: WD/WN Lines, tubes and drains: peripheral, central line, gtube HEENT: normocephalic, atraumatic Neck: non-tender, normal alignment Respiratory/Chest: chest wall non-tender, lungs clear Cardiovascular/Chest: normal peripheral pulses, normal rate Abdomen: normal bowel sounds, non tender Genitourinary/Rectal: normal genital exam Extremities: normal range of motion Last 24 Hour Vital Signs Date Time Temp Pulse Resp B/P Pulse Ox O2 Delivery O2 Flow Rate FiO2 07/27/16 08:07 99.7 103 14 107/57 96 Room Air 07/27/16 08:00 104 07/27/16 07:39 99.7 103 14 107/57 96 Room Air 07/27/16 05:56 99.7 102 14 106/65 100 Room Air 07/27/16 04:20 99.9 107 13 118/67 98 Room Air 07/27/16 02:16 101.1 125 14 117/72 98 Room Air 07/27/16 01:45 101.1 07/27/16 00:10 97.0 131 16 104/71 96 Room Air Intake and Output 07/26/16 07/27/16 19:00 07:00 Intake Total 2300 ml Balance 2300 ml Intake IV Total 2300 ml Laboratory Tests Test 07/27/16 00:50 07/27/16 03:30 White Blood Count 13.6 K/UL (4.8-10.8) H Red Blood Count 7.45 M/UL (4.70-6.10) H Hemoglobin 16.6 G/DL (14.2-18.0) Hematocrit 52.8 % (42.0-52.0) H Mean Corpuscular Volume 71 FL (80-99) L Mean Corpuscular Hemoglobin 22.3 PG (27.0-31.0) L Mean Corpuscular Hemoglobin Concent 31.5 G/DL (32.0-36.0) L Red Cell Distribution Width 14.1 % (11.6-14.8) Platelet Count 149 K/UL (150-450) L Mean Platelet Volume 12.0 FL (6.5-10.1) H Neutrophils (%) (Auto) 65.8 % (45.0-75.0) Lymphocytes (%) (Auto) 21.3 % (20.0-45.0) Monocytes (%) (Auto) 11.5 % (1.0-10.0) H Eosinophils (%) (Auto) 0.6 % (0.0-3.0) Basophils (%) (Auto) 0.9 % (0.0-2.0) Prothrombin Time 11.2 SEC (9.30-11.50) Prothromb Time International Ratio 1.1 (0.9-1.1) Activated Partial Thromboplast Time 20 SEC (23-33) L Urine Color Yellow Urine Appearance Slightly cloudy Urine pH 7 (4.5-8.0) Urine Specific Staley 1.010 (1.005-1.035) Urine Protein 2+ (NEGATIVE) H Urine Glucose (UA) Negative (NEGATIVE) Urine Ketones 3+ (NEGATIVE) H Urine Occult Blood 2+ (NEGATIVE) H Urine Nitrite Negative (NEGATIVE) Urine Bilirubin Negative (NEGATIVE) Urine Urobilinogen 4 MG/DL (0.0-1.0) H Urine Leukocyte Esterase 2+ (NEGATIVE) H Urine RBC 5-10 /HPF (0 - 0) H Urine WBC 5-10 /HPF (0 - 0) H Urine Squamous Epithelial Cells Few /LPF (NONE/OCC) Urine Bacteria Few /HPF (NONE) Sodium Level 140 mEQ/L (135-145) Potassium Level 4.8 mEQ/L (3.4-4.9) Chloride Level 101 mEQ/L (98-107) Carbon Dioxide Level 23 mEQ/L (20-30) Anion Gap 16 (5-15) H Blood Urea Nitrogen 31 mg/dL (7-23) H Creatinine 0.8 mg/dL (0.7-1.2) Estimat Glomerular Filtration Rate > 60 mL/min (>60) Glucose Level 141 mg/dL (74-106) H Lactic Acid Level 4.00 mmol/L (0.66-2.22) H 1.40 mmol/L (0.66-2.22) Calcium Level 10.1 mg/dL (8.6-10.2) Total Bilirubin 0.5 mg/dL (0.0-1.2) Aspartate Amino Transf (AST/SGOT) 22 U/L (5-40) Alanine Aminotransferase (ALT/SGPT) 23 U/L (3-41) Alkaline Phosphatase 121 U/L (40-129) Total Creatine Kinase 23 U/L (38-174) L Creatine Kinase MB < 1.5 ng/mL (< 6.7) Creatine Kinase MB Relative Index Troponin I < 0.30 ng/mL (<=0.30) Total Protein 8.9 g/dL (6.6-8.7) H Albumin 4.1 g/dL (3.5-5.2) Globulin 4.8 g/dL Albumin/Globulin Ratio 0.8 (1.0-2.7) L Height (Feet): 6 Height (Inches): 1.00 Weight (Pounds): 159 Medications Current Medications Medications (Trade) Dose Ordered Sig/Monalisa Route PRN Reason Start Time Stop Time Status Last Admin Dose Admin Acetaminophen (Tylenol) 650 mg Q4H PRN ORAL fever 07/27/16 12:45 08/26/16 12:44 UNV Albuterol/ Ipratropium 3 ml 3 ml EVERY 4 HOURS PRN HHN Shortness of Breath 07/27/16 12:45 08/01/16 12:44 UNV Cefepime HCl 2 gm/ Dextrose 100 ml @ 100 mls/hr EVERY 12 HOURS IV 07/27/16 21:00 08/03/16 20:59 UNV Finasteride (Proscar) 5 mg DAILY GT 07/28/16 09:00 08/27/16 08:59 UNV Heparin Sodium (Porcine) (Heparin 5000 units/ml) 5,000 units EVERY 12 HOURS SUBQ 07/27/16 21:00 08/26/16 20:59 UNV Levetiracetam (Keppra) 1,500 mg Q12HR GT 07/27/16 21:00 08/26/16 20:59 UNV Morphine Sulfate (Morphine Sulfate) 2 mg EVERY 4 HOURS PRN IVP Moderate Pain (Pain Scale 4-6) 07/27/16 12:45 08/03/16 12:44 UNV Nitroglycerin 0.4 mg 0.4 mg Every 5 Minutes PRN SL Prn Chest Pain 07/27/16 12:45 08/26/16 12:44 UNV Ondansetron HCl (Zofran) 4 mg Q6H PRN IVP Nausea & Vomiting 07/27/16 12:45 08/26/16 12:44 UNV Polyethylene Glycol (Miralax) 17 gm DAILYPRN PRN ORAL Constipation 07/27/16 12:45 08/26/16 12:44 UNV Risperidone (RisperDAL) 1 mg BID ORAL 07/27/16 18:00 08/26/16 17:59 UNV Sodium Chloride (0.45% NS 1000ml) 1,000 ml @ 150 mls/hr Q6H40M IV 07/27/16 12:36 08/26/16 12:35 UNV Temazepam (Restoril) 15 mg HSPRN PRN ORAL Insomnia 07/27/16 12:45 08/03/16 12:44 UNV Valproic Acid (Depakene) 500 mg EVERY 12 HOURS ORAL 07/27/16 21:00 08/26/16 20:59 UNV Vancomycin HCl/ Dextrose (Vancomycin/D5W 250ml) 250 ml @ 167 mls/hr Q24H IV 07/28/16 00:30 08/02/16 00:29 UNV Assessment/Plan Assessment/Plan Problem List: (1) Hypertension ICD Codes: I10 - Hypertension SNOMED: 18506219 (2) Seizure ICD Codes: R56.9 - Convulsions SNOMED: 78749973 (3) Sepsis ICD Codes: A41.9 - Sepsis SNOMED: 25152566 (4) UTI (urinary tract infection) ICD Codes: N39.0 - Urinary tract infection, site not specified SNOMED: 00103515 Qualifiers: Qualified Codes: N30.00 - Acute cystitis without hematuria (5) Malfunction of gastrostomy tube ICD Codes: K94.23 - Gastrostomy malfunction SNOMED: 603001467 (6) shelter resident ICD Codes: Z59.3 - Problems related to living in residential institution SNOMED: 197533012 (7) cerebral pulsy with advanced mental retardation (8) Schizophrenia ICD Codes: F20.9 - Schizophrenia, unspecified SNOMED: 78172467 Assessment/Plan IV fluids IV antibiotics flowers culture dvt prophylaxis monitor bp and heart rate titrate cardiac meds NEEL LUJAN Jul 27, 2016 12:52 Thang (AndreasLia pathak NP Aug 22, 2016 14:56
[2016-08-22 16:00] VITALS: BP 95/61
--- NOTE | 2016-08-22 17:32 | Cardiac Electrophysiology PN ---
Assessment/Plan Assessment/Plan 1. Sinus Tachycardia due to sepsis and dehydration. Better. 2. Pseudomonas aeruginosa pneumonia and sepsis. On iv amikacin. Vancomycin DCed.. 3. Cerebral palsy. 4. Seizure disorder.Keppra 5. Schizophrenia. Risperdal 6. C. Diff 7. S/P Gastrostomy Subjective Subjective Comfortable in NAD. On iv antibiotics. No new events Objective Last 24 Hour Vital Signs Date Time Temp Pulse Resp B/P Pulse Ox O2 Delivery O2 Flow Rate FiO2 08/22/16 16:00 98.2 91 22 95/61 93 Room Air 08/22/16 12:00 97.7 90 19 96/61 96 Room Air 08/22/16 11:50 103 18 Room Air 21 08/22/16 08:00 97.9 99 20 99/66 96 Room Air 08/22/16 04:00 97.9 103 16 101/66 96 Room Air 08/22/16 00:00 97.7 105 16 101/67 96 Room Air 08/21/16 21:17 97.7 109 18 97/63 94 Room Air 08/21/16 20:19 108 20 Room Air 21 08/21/16 20:00 97.7 109 18 97/63 95 Room Air Intake and Output 08/21/16 08/22/16 19:00 07:00 Intake Total 545 ml 363 ml Output Total 350 ml 1100 ml Balance 195 ml -737 ml Free Water 50 ml IV Total 228 ml Tube Feeding 495 ml 135 ml Output Urine Total 350 ml 1100 ml # Bowel Movements 1 1 Laboratory Tests Test 08/22/16 05:15 White Blood Count 8.4 K/UL (4.8-10.8) Red Blood Count 5.46 M/UL (4.70-6.10) Hemoglobin 11.7 G/DL (14.2-18.0) L Hematocrit 38.5 % (42.0-52.0) L Mean Corpuscular Volume 70 FL (80-99) L Mean Corpuscular Hemoglobin 21.5 PG (27.0-31.0) L Mean Corpuscular Hemoglobin Concent 30.5 G/DL (32.0-36.0) L Red Cell Distribution Width 13.3 % (11.6-14.8) Platelet Count 272 K/UL (150-450) Mean Platelet Volume 9.5 FL (6.5-10.1) Neutrophils (%) (Auto) 58.2 % (45.0-75.0) Lymphocytes (%) (Auto) 23.7 % (20.0-45.0) Monocytes (%) (Auto) 11.8 % (1.0-10.0) H Eosinophils (%) (Auto) 5.3 % (0.0-3.0) H Basophils (%) (Auto) 1.0 % (0.0-2.0) Sodium Level 137 mEQ/L (135-145) Potassium Level 4.5 mEQ/L (3.4-4.9) Chloride Level 98 mEQ/L (98-107) Carbon Dioxide Level 24 mEQ/L (20-30) Anion Gap 15 (5-15) Blood Urea Nitrogen 21 mg/dL (7-23) Creatinine 0.6 mg/dL (0.7-1.2) L Estimat Glomerular Filtration Rate > 60 mL/min (>60) Glucose Level 109 mg/dL (74-106) H Calcium Level 9.0 mg/dL (8.6-10.2) Objective HEAD AND NECK: Shows no JVD. LUNGS: Coarse rhonchi. CARDIOVASCULAR: Irregularly irregular S1 and S2 with no gallop or murmur. Tachycardic. ABDOMEN: G-tube intact EXTREMITIES: No pitting edema. HUMPHREY FRANCO Aug 22, 2016 17:32
--- NOTE | 2016-08-22 17:44 | Infectious Diseases Prog Note ---
Assessment/Plan Problems: (1) Sepsis Assessment & Plan: improved, received amikacin and vancomycin empirically for two weeks , blood culture showed no growth so far. D/C ABX today (2) C. difficile colitis Assessment & Plan: received vancomycin orally for two weeks total , improved. (3) Malfunction of percutaneous endoscopic gastrostomy (PEG) tube Assessment & Plan: S/P replacement, GI is following (4) Diabetes Assessment & Plan: recommend tight glycemic control to keep fasting less than 120, and premeal less than 130 (5) Dermatitis Assessment & Plan: due to bile acid irritation from the G tube site leakage, continue local skin care and G tube care Subjective ROS Limited/Unobtainable: Yes Allergies: Coded Allergies: NO KNOWN DRUG ALLERGIES (Unverified Allergy, Unknown, 08/22/15) Subjective he is nonverbal, demented, resting in bed, developed fever today , no diarrhea as per nursing staff. Objective Vital Signs Last 24 Hour Vital Signs Date Time Temp Pulse Resp B/P Pulse Ox O2 Delivery O2 Flow Rate FiO2 08/22/16 16:00 98.2 91 22 95/61 93 Room Air 08/22/16 12:00 97.7 90 19 96/61 96 Room Air 08/22/16 11:50 103 18 Room Air 21 08/22/16 08:00 97.9 99 20 99/66 96 Room Air 08/22/16 04:00 97.9 103 16 101/66 96 Room Air 08/22/16 00:00 97.7 105 16 101/67 96 Room Air 08/21/16 21:17 97.7 109 18 97/63 94 Room Air 08/21/16 20:19 108 20 Room Air 21 08/21/16 20:00 97.7 109 18 97/63 95 Room Air Height (Feet): 6 Height (Inches): 1.00 Weight (Pounds): 159 General Appearance: WD/WN, no acute distress HEENT: normocephalic, atraumatic, anicteric, mucous membranes moist Respiratory/Chest: chest wall non-tender, lungs clear, normal breath sounds, no respiratory distress, no accessory muscle use Cardiovascular: normal peripheral pulses, normal rate, regular rhythm, no gallop/murmur Abdomen: normal bowel sounds, soft, non tender, no organomegaly, non distended , no mass Extremities: no cyanosis, no clubbing Skin: no rash, no lesions, no ulcers Laboratory Tests Test 08/22/16 05:15 White Blood Count 8.4 K/UL (4.8-10.8) Red Blood Count 5.46 M/UL (4.70-6.10) Hemoglobin 11.7 G/DL (14.2-18.0) L Hematocrit 38.5 % (42.0-52.0) L Mean Corpuscular Volume 70 FL (80-99) L Mean Corpuscular Hemoglobin 21.5 PG (27.0-31.0) L Mean Corpuscular Hemoglobin Concent 30.5 G/DL (32.0-36.0) L Red Cell Distribution Width 13.3 % (11.6-14.8) Platelet Count 272 K/UL (150-450) Mean Platelet Volume 9.5 FL (6.5-10.1) Neutrophils (%) (Auto) 58.2 % (45.0-75.0) Lymphocytes (%) (Auto) 23.7 % (20.0-45.0) Monocytes (%) (Auto) 11.8 % (1.0-10.0) H Eosinophils (%) (Auto) 5.3 % (0.0-3.0) H Basophils (%) (Auto) 1.0 % (0.0-2.0) Sodium Level 137 mEQ/L (135-145) Potassium Level 4.5 mEQ/L (3.4-4.9) Chloride Level 98 mEQ/L (98-107) Carbon Dioxide Level 24 mEQ/L (20-30) Anion Gap 15 (5-15) Blood Urea Nitrogen 21 mg/dL (7-23) Creatinine 0.6 mg/dL (0.7-1.2) L Estimat Glomerular Filtration Rate > 60 mL/min (>60) Glucose Level 109 mg/dL (74-106) H Calcium Level 9.0 mg/dL (8.6-10.2) Current Medications Medications (Trade) Dose Ordered Sig/Monalisa Route PRN Reason Start Time Stop Time Status Last Admin Dose Admin Acetaminophen (Tylenol) 650 mg Q4H PRN ORAL fever 07/28/16 15:00 08/27/16 14:59 08/13/16 16:26 Amikacin Protocol 1 ea 1 ea DAILY PRN MISC Per rx protocol 08/06/16 17:00 09/05/16 16:59 Amikacin Sulfate/ Sodium Chloride (Amikin/Sodium Chloride) 114 ml @ 228 mls/hr Q24H IV 08/17/16 20:00 08/22/16 19:59 08/21/16 20:14 Clotrimazole (Lotrimin) 1 applic THREE TIMES A DAY TOPIC 07/29/16 14:30 08/28/16 14:29 08/22/16 17:15 Finasteride (Proscar) 5 mg DAILY GT 07/29/16 09:00 08/28/16 08:59 08/22/16 07:38 Heparin Sodium (Porcine) (Heparin 5000 units/ml) 5,000 units EVERY 12 HOURS SUBQ 07/28/16 21:00 08/27/16 20:59 08/22/16 07:42 Levetiracetam (Keppra) 1,500 mg Q12HR GT 07/28/16 21:00 08/27/16 20:59 08/22/16 07:37 Nitroglycerin (Ntg) 0.4 mg Q5M X 3 DOSES PRN SL Prn Chest Pain 07/28/16 14:15 08/27/16 14:14 Ondansetron HCl (Zofran) 4 mg Q6H PRN IVP Nausea & Vomiting 07/28/16 15:00 08/27/16 14:59 Polyethylene Glycol (Miralax) 17 gm DAILYPRN PRN GT Constipation 07/28/16 15:00 08/27/16 14:59 Risperidone (RisperDAL) 1 mg BID ORAL 07/28/16 18:00 08/27/16 17:59 08/22/16 17:15 Valproic Acid (Depakene) 500 mg EVERY 12 HOURS GT 07/28/16 21:00 08/27/16 20:59 08/22/16 07:38 Tavo Ramirez M.D. Aug 22, 2016 17:43
[2016-08-22 20:00] VITALS: BP 94/61
--- NOTE | 2016-08-22 22:54 | Pulmonology Progress Note ---
Assessment/Plan Problems: (1) Hypertension (2) Seizure (3) Sepsis (4) UTI (urinary tract infection) (5) Malfunction of gastrostomy tube (6) assisted resident (7) cerebral pulsy with advanced mental retardation (8) Schizophrenia Assessment/Plan Assessment/Plan GI to follow up LOC and mentation monitored Tight BP and BG control Aspiration precautions Seizure precautions Continue ANTBX Subjective ROS Limited/Unobtainable: Yes Genitourinary: Reports: hematuria Neurologic: Reports: confusion, seizures Allergies: Coded Allergies: NO KNOWN DRUG ALLERGIES (Unverified Allergy, Unknown, 08/22/15) Objective Last 24 Hour Vital Signs Date Time Temp Pulse Resp B/P Pulse Ox O2 Delivery O2 Flow Rate FiO2 08/22/16 20:00 97.3 100 22 94/61 100 Room Air 08/22/16 19:00 100 20 Room Air 21 08/22/16 16:00 98.2 91 22 95/61 93 Room Air 08/22/16 12:00 97.7 90 19 96/61 96 Room Air 08/22/16 11:50 103 18 Room Air 08/22/16 08:00 97.9 99 20 99/66 96 Room Air 08/22/16 04:00 97.9 103 16 101/66 96 Room Air 08/22/16 00:00 97.7 105 16 101/67 96 Room Air Intake and Output 08/21/16 08/22/16 19:00 07:00 Intake Total 545 ml 363 ml Output Total 350 ml 1100 ml Balance 195 ml -737 ml Free Water 50 ml IV Total 228 ml Tube Feeding 495 ml 135 ml Output Urine Total 350 ml 1100 ml # Bowel Movements 1 1 General Appearance: no acute distress HEENT: normocephalic, atraumatic, mucous membranes moist, PERRL Respiratory/Chest: chest wall non-tender, decreased breath sounds, accessory muscle use Cardiovascular: normal peripheral pulses, normal rate, regular rhythm, no JVD Abdomen: normal bowel sounds, soft, non tender, no organomegaly Genitourinary: normal external genitalia Extremities: no cyanosis Skin: rash, lesions, ulcers Neurologic/Psychiatric: abnormal CN, motor weakness, disoriented, unresponsiveness, aphasia, depressed affect Laboratory Tests 08/22/16 05:15: White Blood Count 8.4, Red Blood Count 5.46, Hemoglobin 11.7L, Hematocrit 38.5L , Mean Corpuscular Volume 70L, Mean Corpuscular Hemoglobin 21.5L, Mean Corpuscular Hemoglobin Concent 30.5L, Red Cell Distribution Width 13.3, Platelet Count 272, Mean Platelet Volume 9.5, Neutrophils (%) (Auto) 58.2, Lymphocytes (%) (Auto) 23.7, Monocytes (%) (Auto) 11.8H, Eosinophils (%) (Auto) 5.3H, Basophils (%) (Auto) 1.0, Sodium Level 137, Potassium Level 4.5, Chloride Level 98, Carbon Dioxide Level 24, Anion Gap 15, Blood Urea Nitrogen 21, Creatinine 0.6L, Estimat Glomerular Filtration Rate > 60, Glucose Level 109H, Calcium Level 9.0 Current Medications Medications (Trade) Dose Ordered Sig/Monalisa Route PRN Reason Start Time Stop Time Status Last Admin Dose Admin Acetaminophen (Tylenol) 650 mg Q4H PRN ORAL fever 07/28/16 15:00 08/27/16 14:59 08/13/16 16:26 Clotrimazole (Lotrimin) 1 applic THREE TIMES A DAY TOPIC 07/29/16 14:30 08/28/16 14:29 08/22/16 17:15 Finasteride (Proscar) 5 mg DAILY GT 07/29/16 09:00 08/28/16 08:59 08/22/16 07:38 Heparin Sodium (Porcine) (Heparin 5000 units/ml) 5,000 units EVERY 12 HOURS SUBQ 07/28/16 21:00 08/27/16 20:59 08/22/16 20:10 Levetiracetam (Keppra) 1,500 mg Q12HR GT 07/28/16 21:00 08/27/16 20:59 08/22/16 20:11 Nitroglycerin (Ntg) 0.4 mg Q5M X 3 DOSES PRN SL Prn Chest Pain 07/28/16 14:15 08/27/16 14:14 Ondansetron HCl (Zofran) 4 mg Q6H PRN IVP Nausea & Vomiting 07/28/16 15:00 08/27/16 14:59 Polyethylene Glycol (Miralax) 17 gm DAILYPRN PRN GT Constipation 07/28/16 15:00 08/27/16 14:59 Risperidone (RisperDAL) 1 mg BID ORAL 07/28/16 18:00 08/27/16 17:59 08/22/16 17:15 Valproic Acid (Depakene) 500 mg EVERY 12 HOURS GT 07/28/16 21:00 08/27/16 20:59 08/22/16 20:11 NEEL LUJAN Aug 22, 2016 22:54
[2016-08-23] VITALS: BP 94/56
[2016-08-23 04:00] VITALS: BP 101/70
[2016-08-23 07:34] LABS: BASOPHILS % (AUTO) 0.7 % (0.0-2.0); EOSINOPHILS % (AUTO) 3.8 % (0.0-3.0); LYMPHOCYTES % (AUTO) 22.3 % (20.0-45.0); MEAN CORPUSCULAR HEMOGLOBIN 21.5 PG (27.0-31.0); MEAN CORPUSCULAR HGB CONC 31.2 G/DL (32.0-36.0); MEAN CORPUSCULAR VOLUME 69 FL (80-99); MEAN PLATELET VOLUME 9.1 FL (6.5-10.1); NEUTROPHILS % (AUTO) 62.2 % (45.0-75.0); PLATELET COUNT 277 K/UL (150-450); RED BLOOD COUNT 5.42 M/UL (4.70-6.10); RED CELL DISTRIBUTION WIDTH 13.4 % (11.6-14.8); WHITE BLOOD COUNT 7.9 K/UL (4.8-10.8)
[2016-08-23 07:57] LABS: ANION GAP 13 (5-15); CALCIUM 9.1 mg/dL (8.6-10.2); CARBON DIOXIDE 26 mEQ/L (20-30); CHLORIDE 100 mEQ/L (98-107); CREATININE 0.7 mg/dL (0.7-1.2); GLOMERULAR FILTRATION RATE > 60 mL/min (>60); HEMOLYSIS 0; POTASSIUM 4.4 mEQ/L (3.4-4.9); SODIUM 139 mEQ/L (135-145)
[2016-08-23 08:00] VITALS: BP 99/69
[2016-08-23] MEDS: Heparin 5000 units/ml inj SUBQ SCH (08:01)
[2016-08-23] MEDS: Valproic Acid 250mg/5ml Liquid GT SCH (08:02)
[2016-08-23] MEDS: levETIRAcetam 500mg/5ml Liquid GT SCH (08:02)
[2016-08-23 12:00] VITALS: BP 103/64
--- NOTE | 2016-08-23 14:25 | GI Progress Note ---
Assessment/Plan Problems: (1) C. difficile colitis ICD Codes: A04.7 - Enterocolitis due to Clostridium difficile SNOMED: 958767235 (2) Malfunction of percutaneous endoscopic gastrostomy (PEG) tube ICD Codes: K94.23 - Gastrostomy malfunction SNOMED: 771702135 (3) Pancytopenia ICD Codes: D61.818 - Other pancytopenia SNOMED: 729713188 Status: stable Status Narrative Discussed with Dr. Light. Assessment/Plan Assessment (1) Seizure (2) Schizophrenia (3) Diabetes (4) Hypertension (5) cerebral palsy with advanced mental retardation (6) Malfunction of gastrostomy tube - leakage (7) Anemia (8) C Diff Colitis Recommendations - ok for DC per GI standpoint - Continue TF - GT replaced/site care daily/prn - Iron panel WNL - stool OB negative - Abx for C Diff >> completed - H2 Subjective Subjective limited Objective Last 24 Hour Vital Signs Date Time Temp Pulse Resp B/P Pulse Ox O2 Delivery O2 Flow Rate FiO2 08/23/16 12:00 98.2 102 19 103/64 98 Room Air 08/23/16 08:25 105 20 Room Air 21 08/23/16 08:00 97.7 91 18 99/69 100 Room Air 08/23/16 04:00 98.1 104 18 101/70 97 Room Air 08/23/16 00:00 97.7 99 20 94/56 95 Room Air 08/22/16 20:00 97.3 100 22 94/61 100 Room Air 08/22/16 19:00 100 20 Room Air 21 08/22/16 16:00 98.2 91 22 95/61 93 Room Air Intake and Output 08/22/16 08/23/16 19:00 07:00 Intake Total 640 ml 660 ml Output Total 450 ml 700 ml Balance 190 ml -40 ml Free Water 100 ml 120 ml Tube Feeding 540 ml 540 ml Output Urine Total 450 ml 700 ml Laboratory Tests Test 08/23/16 05:45 White Blood Count 7.9 K/UL (4.8-10.8) Red Blood Count 5.42 M/UL (4.70-6.10) Hemoglobin 11.7 G/DL (14.2-18.0) L Hematocrit 37.5 % (42.0-52.0) L Mean Corpuscular Volume 69 FL (80-99) L Mean Corpuscular Hemoglobin 21.5 PG (27.0-31.0) L Mean Corpuscular Hemoglobin Concent 31.2 G/DL (32.0-36.0) L Red Cell Distribution Width 13.4 % (11.6-14.8) Platelet Count 277 K/UL (150-450) Mean Platelet Volume 9.1 FL (6.5-10.1) Neutrophils (%) (Auto) 62.2 % (45.0-75.0) Lymphocytes (%) (Auto) 22.3 % (20.0-45.0) Monocytes (%) (Auto) 11.0 % (1.0-10.0) H Eosinophils (%) (Auto) 3.8 % (0.0-3.0) H Basophils (%) (Auto) 0.7 % (0.0-2.0) Sodium Level 139 mEQ/L (135-145) Potassium Level 4.4 mEQ/L (3.4-4.9) Chloride Level 100 mEQ/L (98-107) Carbon Dioxide Level 26 mEQ/L (20-30) Anion Gap 13 (5-15) Blood Urea Nitrogen 27 mg/dL (7-23) H Creatinine 0.7 mg/dL (0.7-1.2) Estimat Glomerular Filtration Rate > 60 mL/min (>60) Glucose Level 119 mg/dL (74-106) H Calcium Level 9.1 mg/dL (8.6-10.2) Height (Feet): 6 Height (Inches): 1.00 Weight (Pounds): 159 General Appearance: no apparent distress, alert Cardiovascular: normal rate Respiratory/Chest: normal breath sounds, no respiratory distress Abdominal Exam: normal bowel sounds, non tender, soft, GT site - c/d/i Objective no changes Chery Mcfarland N.P. Aug 23, 2016 14:25
--- NOTE | 2016-08-23 15:27 | General Progress Note ---
Assessment/Plan Problem List: (1) Pneumonia ICD Codes: J18.9 - Pneumonia, unspecified organism SNOMED: 060214951 (2) Sepsis ICD Codes: A41.9 - Sepsis, unspecified organism SNOMED: 98186554 (3) Attention to G-tube ICD Codes: Z43.1 - Encounter for attention to gastrostomy SNOMED: 963063208, 100209797 (4) Altered level of consciousness ICD Codes: R40.4 - Transient alteration of awareness SNOMED: 4351852 (5) Seizure disorder, partial, intractable ICD Codes: G40.119 - Seizure disorder, partial, intractable SNOMED: 795729804 Status: stable, progressing, tolerating diet Assessment/Plan o2 pulm tx abx ot pt diet psyc care dc if clear by pulm and id Subjective Constitutional: Reports: weakness Allergies: Coded Allergies: NO KNOWN DRUG ALLERGIES (Unverified Allergy, Unknown, 08/22/15) All Systems: reviewed and negative except above Subjective sleepy calm Objective Last 24 Hour Vital Signs Date Time Temp Pulse Resp B/P Pulse Ox O2 Delivery O2 Flow Rate FiO2 08/23/16 12:00 98.2 102 19 103/64 98 Room Air 08/23/16 08:25 105 20 Room Air 21 08/23/16 08:00 97.7 91 18 99/69 100 Room Air 08/23/16 04:00 98.1 104 18 101/70 97 Room Air 08/23/16 00:00 97.7 99 20 94/56 95 Room Air 08/22/16 20:00 97.3 100 22 94/61 100 Room Air 08/22/16 19:00 100 20 Room Air 21 08/22/16 16:00 98.2 91 22 95/61 93 Room Air Intake and Output 08/22/16 08/23/16 19:00 07:00 Intake Total 640 ml 660 ml Output Total 450 ml 700 ml Balance 190 ml -40 ml Free Water 100 ml 120 ml Tube Feeding 540 ml 540 ml Output Urine Total 450 ml 700 ml Laboratory Tests 08/23/16 05:45: White Blood Count 7.9, Red Blood Count 5.42, Hemoglobin 11.7L, Hematocrit 37.5L , Mean Corpuscular Volume 69L, Mean Corpuscular Hemoglobin 21.5L, Mean Corpuscular Hemoglobin Concent 31.2L, Red Cell Distribution Width 13.4, Platelet Count 277, Mean Platelet Volume 9.1, Neutrophils (%) (Auto) 62.2, Lymphocytes (%) (Auto) 22.3, Monocytes (%) (Auto) 11.0H, Eosinophils (%) (Auto) 3.8H, Basophils (%) (Auto) 0.7, Sodium Level 139, Potassium Level 4.4, Chloride Level 100, Carbon Dioxide Level 26, Anion Gap 13, Blood Urea Nitrogen 27H, Creatinine 0.7, Estimat Glomerular Filtration Rate > 60, Glucose Level 119H, Calcium Level 9.1 Height (Feet): 6 Height (Inches): 1.00 Weight (Pounds): 159 General Appearance: lethargic EENT: normal ENT inspection Neck: normal alignment Cardiovascular: normal peripheral pulses, normal rate, regular rhythm Respiratory/Chest: chest wall non-tender, lungs clear, normal breath sounds Abdomen: normal bowel sounds, non tender, soft Extremities: normal inspection Edema: no edema noted Arm (L), no edema noted Arm (R), no edema noted Leg (L), no edema noted Leg (R), no edema noted Pedal (L), no edema noted Pedal (R), no edema noted Generalized Neurologic: motor weakness Skin: normal pigmentation, warm/dry TONYA GOOD Aug 23, 2016 15:27
[2016-08-23 16:14] VITALS: BP 95/59
[2016-08-23] MEDS ORDERED: PROSCAR5 MG GT (16:14)
[2016-08-23] MEDS ORDERED: CLOTRIMAZOLE15 GM TOPIC (16:14)
[2016-08-23] MEDS ORDERED: HEPARIN SO5000 UNIT2 SUBQ (16:14)
[2016-08-23] MEDS ORDERED: KEPPRA1000 MG GT (16:16)
[2016-08-23] MEDS ORDERED: ZOFRAN4 M3 ORAL (16:17)
[2016-08-23] MEDS ORDERED: NITROGLYCERIN0.4 MG SL (16:17)
[2016-08-23] MEDS ORDERED: MIRALAX17 G2 ORAL (16:17)
[2016-08-23] MEDS ORDERED: RISPERDAL1 MG/1 ML GT (16:18)
[2016-08-23] MEDS ORDERED: DEPAKENE250 MG/5 M GT (16:18)
--- NOTE | 2016-08-23 17:41 | Cardiac Electrophysiology PN ---
Assessment/Plan Assessment/Plan 1. Sinus Tachycardia due to sepsis and dehydration. Better. 2. Pseudomonas aeruginosa pneumonia and sepsis. Amikacin DCed. 3. Cerebral palsy. 4. Seizure disorder.Keppra 5. Schizophrenia. Risperdal 6. C. Diff Colitis 7. S/P Gastrostomy Subjective Subjective Comfortable in NAD on iv antibiotics. Objective Last 24 Hour Vital Signs Date Time Temp Pulse Resp B/P Pulse Ox O2 Delivery O2 Flow Rate FiO2 08/23/16 16:14 97.4 105 20 95/59 95 Room Air 08/23/16 12:00 98.2 102 19 103/64 98 Room Air 08/23/16 08:25 105 20 Room Air 21 08/23/16 08:00 97.7 91 18 99/69 100 Room Air 08/23/16 04:00 98.1 104 18 101/70 97 Room Air 08/23/16 00:00 97.7 99 20 94/56 95 Room Air 08/22/16 20:00 97.3 100 22 94/61 100 Room Air 08/22/16 19:00 100 20 Room Air 21 Intake and Output 08/22/16 08/23/16 19:00 07:00 Intake Total 640 ml 660 ml Output Total 450 ml 700 ml Balance 190 ml -40 ml Free Water 100 ml 120 ml Tube Feeding 540 ml 540 ml Output Urine Total 450 ml 700 ml Laboratory Tests Test 08/23/16 05:45 White Blood Count 7.9 K/UL (4.8-10.8) Red Blood Count 5.42 M/UL (4.70-6.10) Hemoglobin 11.7 G/DL (14.2-18.0) L Hematocrit 37.5 % (42.0-52.0) L Mean Corpuscular Volume 69 FL (80-99) L Mean Corpuscular Hemoglobin 21.5 PG (27.0-31.0) L Mean Corpuscular Hemoglobin Concent 31.2 G/DL (32.0-36.0) L Red Cell Distribution Width 13.4 % (11.6-14.8) Platelet Count 277 K/UL (150-450) Mean Platelet Volume 9.1 FL (6.5-10.1) Neutrophils (%) (Auto) 62.2 % (45.0-75.0) Lymphocytes (%) (Auto) 22.3 % (20.0-45.0) Monocytes (%) (Auto) 11.0 % (1.0-10.0) H Eosinophils (%) (Auto) 3.8 % (0.0-3.0) H Basophils (%) (Auto) 0.7 % (0.0-2.0) Sodium Level 139 mEQ/L (135-145) Potassium Level 4.4 mEQ/L (3.4-4.9) Chloride Level 100 mEQ/L (98-107) Carbon Dioxide Level 26 mEQ/L (20-30) Anion Gap 13 (5-15) Blood Urea Nitrogen 27 mg/dL (7-23) H Creatinine 0.7 mg/dL (0.7-1.2) Estimat Glomerular Filtration Rate > 60 mL/min (>60) Glucose Level 119 mg/dL (74-106) H Calcium Level 9.1 mg/dL (8.6-10.2) Objective HEAD AND NECK: Shows no JVD. LUNGS: Coarse rhonchi. CARDIOVASCULAR: Irregularly irregular S1 and S2 with no gallop or murmur. Tachycardic. ABDOMEN: G-tube intact EXTREMITIES: No pitting edema. HUMPHREY FRANCO Aug 23, 2016 17:41
--- NOTE | 2016-08-23 17:42 | Pulmonology Progress Note ---
Assessment/Plan Problems: (1) Hypertension (2) Seizure (3) Sepsis (4) UTI (urinary tract infection) (5) Malfunction of gastrostomy tube (6) skilled nursing resident (7) cerebral pulsy with advanced mental retardation (8) Schizophrenia Assessment/Plan Assessment/Plan GI to follow up LOC and mentation monitored Tight BP and BG control Aspiration precautions Seizure precautions Continue ANTBX Subjective ROS Limited/Unobtainable: Yes Genitourinary: Reports: hematuria Neurologic: Reports: confusion, seizures Allergies: Coded Allergies: NO KNOWN DRUG ALLERGIES (Unverified Allergy, Unknown, 08/22/15) Objective Last 24 Hour Vital Signs Date Time Temp Pulse Resp B/P Pulse Ox O2 Delivery O2 Flow Rate FiO2 08/23/16 16:14 97.4 105 20 95/59 95 Room Air 08/23/16 12:00 98.2 102 19 103/64 98 Room Air 08/23/16 08:25 105 20 Room Air 21 08/23/16 08:00 97.7 91 18 99/69 100 Room Air 08/23/16 04:00 98.1 104 18 101/70 97 Room Air 08/23/16 00:00 97.7 99 20 94/56 95 Room Air 08/22/16 20:00 97.3 100 22 94/61 100 Room Air 08/22/16 19:00 100 20 Room Air 21 Intake and Output 08/22/16 08/23/16 19:00 07:00 Intake Total 640 ml 660 ml Output Total 450 ml 700 ml Balance 190 ml -40 ml Free Water 100 ml 120 ml Tube Feeding 540 ml 540 ml Output Urine Total 450 ml 700 ml General Appearance: no acute distress HEENT: normocephalic, atraumatic, PERRL Respiratory/Chest: chest wall non-tender, decreased breath sounds Cardiovascular: normal peripheral pulses, normal rate, regular rhythm, no JVD Abdomen: normal bowel sounds, soft, non tender, no organomegaly Extremities: no cyanosis Skin: rash, lesions, ulcers Neurologic/Psychiatric: abnormal CN, motor weakness, unresponsiveness, aphasia , depressed affect Laboratory Tests 08/23/16 05:45: White Blood Count 7.9, Red Blood Count 5.42, Hemoglobin 11.7L, Hematocrit 37.5L , Mean Corpuscular Volume 69L, Mean Corpuscular Hemoglobin 21.5L, Mean Corpuscular Hemoglobin Concent 31.2L, Red Cell Distribution Width 13.4, Platelet Count 277, Mean Platelet Volume 9.1, Neutrophils (%) (Auto) 62.2, Lymphocytes (%) (Auto) 22.3, Monocytes (%) (Auto) 11.0H, Eosinophils (%) (Auto) 3.8H, Basophils (%) (Auto) 0.7, Sodium Level 139, Potassium Level 4.4, Chloride Level 100, Carbon Dioxide Level 26, Anion Gap 13, Blood Urea Nitrogen 27H, Creatinine 0.7, Estimat Glomerular Filtration Rate > 60, Glucose Level 119H, Calcium Level 9.1 Current Medications Medications (Trade) Dose Ordered Sig/Monalisa Route PRN Reason Start Time Stop Time Status Last Admin Dose Admin Acetaminophen (Tylenol) 650 mg Q4H PRN ORAL fever 07/28/16 15:00 08/27/16 14:59 08/13/16 16:26 Clotrimazole (Lotrimin) 1 applic THREE TIMES A DAY TOPIC 07/29/16 14:30 08/28/16 14:29 08/23/16 17:31 Finasteride (Proscar) 5 mg DAILY GT 07/29/16 09:00 08/28/16 08:59 08/23/16 08:02 Heparin Sodium (Porcine) (Heparin 5000 units/ml) 5,000 units EVERY 12 HOURS SUBQ 07/28/16 21:00 08/27/16 20:59 08/23/16 08:01 Levetiracetam (Keppra) 1,500 mg Q12HR GT 07/28/16 21:00 08/27/16 20:59 08/23/16 08:02 Nitroglycerin (Ntg) 0.4 mg Q5M X 3 DOSES PRN SL Prn Chest Pain 07/28/16 14:15 08/27/16 14:14 Ondansetron HCl (Zofran) 4 mg Q6H PRN IVP Nausea & Vomiting 07/28/16 15:00 08/27/16 14:59 Polyethylene Glycol (Miralax) 17 gm DAILYPRN PRN GT Constipation 07/28/16 15:00 08/27/16 14:59 Risperidone (RisperDAL) 1 mg BID ORAL 07/28/16 18:00 08/27/16 17:59 08/23/16 17:31 Valproic Acid (Depakene) 500 mg EVERY 12 HOURS GT 07/28/16 21:00 08/27/16 20:59 08/23/16 08:02 NEEL LUJAN Aug 23, 2016 17:42
--- NOTE | 2016-08-23 17:53 | Infectious Diseases Prog Note ---
Assessment/Plan Problems: (1) Sepsis Assessment & Plan: improved, received amikacin and vancomycin empirically for two weeks , blood culture showed no growth so far. off ABX (2) C. difficile colitis Assessment & Plan: received vancomycin orally for two weeks total , improved. (3) Malfunction of percutaneous endoscopic gastrostomy (PEG) tube Assessment & Plan: S/P replacement, GI is following (4) Diabetes Assessment & Plan: recommend tight glycemic control to keep fasting less than 120, and premeal less than 130 (5) Dermatitis Assessment & Plan: due to bile acid irritation from the G tube site leakage, continue local skin care and G tube care Subjective ROS Limited/Unobtainable: Yes Allergies: Coded Allergies: NO KNOWN DRUG ALLERGIES (Unverified Allergy, Unknown, 08/22/15) Subjective he is nonverbal, demented, resting in bed, developed fever today , no diarrhea as per nursing staff. Objective Vital Signs Last 24 Hour Vital Signs Date Time Temp Pulse Resp B/P Pulse Ox O2 Delivery O2 Flow Rate FiO2 08/23/16 16:14 97.4 105 20 95/59 95 Room Air 08/23/16 12:00 98.2 102 19 103/64 98 Room Air 08/23/16 08:25 105 20 Room Air 21 08/23/16 08:00 97.7 91 18 99/69 100 Room Air 08/23/16 04:00 98.1 104 18 101/70 97 Room Air 08/23/16 00:00 97.7 99 20 94/56 95 Room Air 08/22/16 20:00 97.3 100 22 94/61 100 Room Air 08/22/16 19:00 100 20 Room Air 21 Height (Feet): 6 Height (Inches): 1.00 Weight (Pounds): 159 General Appearance: WD/WN, no acute distress HEENT: normocephalic, atraumatic, anicteric, mucous membranes moist Respiratory/Chest: chest wall non-tender, lungs clear, normal breath sounds, no respiratory distress, no accessory muscle use Cardiovascular: normal peripheral pulses, normal rate, regular rhythm, no gallop/murmur, no JVD Abdomen: normal bowel sounds, soft, non tender, no organomegaly, non distended , no mass Extremities: no cyanosis, no clubbing Skin: no rash, no lesions Laboratory Tests Test 08/23/16 05:45 White Blood Count 7.9 K/UL (4.8-10.8) Red Blood Count 5.42 M/UL (4.70-6.10) Hemoglobin 11.7 G/DL (14.2-18.0) L Hematocrit 37.5 % (42.0-52.0) L Mean Corpuscular Volume 69 FL (80-99) L Mean Corpuscular Hemoglobin 21.5 PG (27.0-31.0) L Mean Corpuscular Hemoglobin Concent 31.2 G/DL (32.0-36.0) L Red Cell Distribution Width 13.4 % (11.6-14.8) Platelet Count 277 K/UL (150-450) Mean Platelet Volume 9.1 FL (6.5-10.1) Neutrophils (%) (Auto) 62.2 % (45.0-75.0) Lymphocytes (%) (Auto) 22.3 % (20.0-45.0) Monocytes (%) (Auto) 11.0 % (1.0-10.0) H Eosinophils (%) (Auto) 3.8 % (0.0-3.0) H Basophils (%) (Auto) 0.7 % (0.0-2.0) Sodium Level 139 mEQ/L (135-145) Potassium Level 4.4 mEQ/L (3.4-4.9) Chloride Level 100 mEQ/L (98-107) Carbon Dioxide Level 26 mEQ/L (20-30) Anion Gap 13 (5-15) Blood Urea Nitrogen 27 mg/dL (7-23) H Creatinine 0.7 mg/dL (0.7-1.2) Estimat Glomerular Filtration Rate > 60 mL/min (>60) Glucose Level 119 mg/dL (74-106) H Calcium Level 9.1 mg/dL (8.6-10.2) Current Medications Medications (Trade) Dose Ordered Sig/Monalisa Route PRN Reason Start Time Stop Time Status Last Admin Dose Admin Acetaminophen (Tylenol) 650 mg Q4H PRN ORAL fever 07/28/16 15:00 08/27/16 14:59 08/13/16 16:26 Clotrimazole (Lotrimin) 1 applic THREE TIMES A DAY TOPIC 07/29/16 14:30 08/28/16 14:29 08/23/16 17:31 Finasteride (Proscar) 5 mg DAILY GT 07/29/16 09:00 08/28/16 08:59 08/23/16 08:02 Heparin Sodium (Porcine) (Heparin 5000 units/ml) 5,000 units EVERY 12 HOURS SUBQ 07/28/16 21:00 08/27/16 20:59 08/23/16 08:01 Levetiracetam (Keppra) 1,500 mg Q12HR GT 07/28/16 21:00 08/27/16 20:59 08/23/16 08:02 Nitroglycerin (Ntg) 0.4 mg Q5M X 3 DOSES PRN SL Prn Chest Pain 07/28/16 14:15 08/27/16 14:14 Ondansetron HCl (Zofran) 4 mg Q6H PRN IVP Nausea & Vomiting 07/28/16 15:00 08/27/16 14:59 Polyethylene Glycol (Miralax) 17 gm DAILYPRN PRN GT Constipation 07/28/16 15:00 08/27/16 14:59 Risperidone (RisperDAL) 1 mg BID ORAL 07/28/16 18:00 08/27/16 17:59 08/23/16 17:31 Valproic Acid (Depakene) 500 mg EVERY 12 HOURS GT 07/28/16 21:00 08/27/16 20:59 08/23/16 08:02 Tavo Ramirez M.D. Aug 23, 2016 17:53
--- NOTE | 2016-08-24 20:24 | Discharge Summary ---
Discharge Summary Hospital Course Date of Admission Jul 27, 2016 at 02:53 Date of Discharge Aug 23, 2016 at 20:00 Admitting Diagnosis sepsis, pneumonia HPI Gee Leach is a 60 year old male who was admitted on Jul 27, 2016 at 02: 53 for Sepsis,Pneumonia Hospital Course [id number] Discharge Discharge Disposition Patient was discharged to SNF/Subacute Facility(03) Discharge Diagnoses: Mala Couch NP Aug 24, 2016 20:24
--- NOTE | 2016-08-25 02:28 | Discharge Summary 2 SIG ---
DATE OF ADMISSION: 07/27/2016 DATE OF DISCHARGE: 08/23/2016 CONSULTANTS: 1. Leonides Light M.D. 2. Tavo Ramirez M.D. 3. Lucie Gracia M.D. 4. Sage Araujo M.D. 5. Enrrique Escudero M.D. BRIEF HOSPITAL COURSE: The patient is a 60-year-old male, who was brought into emergency department for complaints of malfunctioning G-tube. The patient had a recent G-tube placement and was sent back because of leaking around this G-tube site from ED. At ED, a new G-tube was placed. However, on repeat check, the patient was febrile and was admitted for possible sepsis. ID was consulted. Infectious Disease specialist was consulted. The patient's sepsis is possible due to urinary tract infection, less likely cellulitis and was started with vancomycin and G-tube for possible C. difficile colitis. Dermatitis around PEG tube site, was given local wound care, and was given IV empiric vancomycin. He came in with multiple pressure sores, right heel DTI, right second, third, and fourth toe DTI. Wound care nurse was consulted and was provided wound care. He was diagnosed with paranoid schizophrenia and was given Depakote and Risperdal. G-tube feedings were started. C. difficile was positive. Sputum culture showed growth of Pseudomonas MDR with usual respiratory presley. He was given amikacin to cover for Pseudomonas aeruginosa and vancomycin. The patient had a lengthy stay as there was a problem with the patient placement due to limited coverage insurance. The patient was eventually discharged on 08/23/2016. The patient was discharged to [facility]. FINAL DIAGNOSES: 1. Sepsis. 2. Clostridium difficile colitis. 3. Malfunction of percutaneous endoscopic gastrostomy tube, status post replacement. 4. Diabetes. 5. Dermatitis around gastrostomy tube site secondary to leak. 6. Cerebral palsy with advanced mental retardation. 7. Paranoid schizophrenia. 8. Seizure disorder. 9. Deep tissue injury on the right heel, right second, third, and fourth toes present on admission. Donaldo Johnson, D.O. I have been assigned to dictate discharge summary on this account and I was not involved in the patient's management. Mala Couch N.P. DR: BREN JOB#: [id number] CC: KELVIN
--- NOTE | 2016-08-26 22:57 | Progress Note ---
DATE: 08/22/2016 Plan for this patient is to treat him with psychotropic medications to stabilize his mood. Chart reviewed. Discussed with the staff. Seen and assessed at bedside. Enrrique Escudero M.D. DR: DEMETRIUS JOB#: [id number] CC:
--- NOTE | 2016-08-26 23:27 | Progress Note ---
DATE: 08/23/2016 PLAN: Treat him with psychotropic medications to prevent any further decline in his cognition. Chart reviewed and discussed with staff. Seen and assessed at bedside. Behavioral management provided. Enrrique Escudero M.D. DR: MARKELL JOB#: [id number] CC:
--- NOTE | 2016-08-27 02:37 | Progress Note ---
DATE: 08/21/2016 SUBJECTIVE: The patient is a 60-year-old male patient, who is depressed, confused, and altered mental status. PLAN: I will continue treatment with psychotropic medications to stabilize the mood and encourage him to interact appropriately with staff. Chart reviewed and discussed with staff. Seen and assessed at bedside. Enrrique Escudero M.D. DR: Wojciech JOB#: [id number] CC:
--- NOTE | 2016-08-27 02:47 | Progress Note ---
DATE: 08/20/2016 SUBJECTIVE: He is a 60-year-old male patient with sepsis and pneumonia. PLAN: I am going to continue treatment with psychotropic medications to stabilize his mood. Encourage him to interact appropriately with staff. Continue treatment with psychotropic medications to reduce agitation. Seen and assessed at bedside. Chart reviewed and discussed with staff. Enrrique Escudero M.D. DR: Wojciech JOB#: [id number] CC:
== END 2016-08-23 20:00 | DRG 871 ==
LOC: EDUNIT# 00:09 → EDBD 00:09 → EMR 01:02 → 2W 02:53 → EDBEDREQ 07:19 → 4W 07-28 15:30
DX: A41.52 Sepsis due to Pseudomonas (principal); J15.1 Pneumonia due to Pseudomonas; D61.818 Other pancytopenia; G40.119 Localization-related (focal) (partial) symptomatic epilepsy and epileptic syndromes with simple partial seizures, intractable, without status epilepticus; A04.7 Enterocolitis due to Clostridium difficile; E86.0 Dehydration; K94.23 Gastrostomy malfunction; N39.0 Urinary tract infection, site not specified; F20.0 Paranoid schizophrenia; G80.9 Cerebral palsy, unspecified; F79 Unspecified intellectual disabilities; I10 Essential (primary) hypertension; E11.9 Type 2 diabetes mellitus without complications; D64.9 Anemia, unspecified; L30.8 Other specified dermatitis; R13.10 Dysphagia, unspecified; E78.5 Hyperlipidemia, unspecified
CPT/HCPCS: 36415; 43760; 71010; 74000; 74176; 80048; 80053; 80150; 80202; 81001; 81003; 82270; 82550; 82553; 82962; 83540; 83550; 83605; 83735; 83880; 84100; 84484; 85025; 85610; 85651; 85730; 87040; 87070; 87086; 87181; 87205; 87493; 93005; 93306; 94664; 97803

== ENCOUNTER 2016-12-13 13:42 | Emergency (ER) | payer MEDICARE, MEDICAID ==
[~2016-12-13] VITALS: Ht 165.1 cm; Wt 68.0 kg
[~2016-12-13 13:42] MED LIST changes: +AMIKACIN S500 MG/2 M IJ; +AMIKIN500 MG/2 M IM; +CLOTRIMAZOLE15 GM TOPIC; +DEPAKENE250 MG/5 M GT; +HEPARIN SO5000 UNIT2 SUBQ; +KEPPRA1000 MG GT; +MIRALAX17 G2 ORAL; +NITROGLYCERIN0.4 MG SL; +RISPERDAL1 MG/1 ML GT; +VANCOMYCIN HCL125 MG PO; +VANCOMYCIN1 GM/2502 IVPB; +ZOFRAN4 M3 ORAL
--- NOTE | 2016-12-13 14:14 | Emergency Room Report ---
History of Present Illness General Chief Complaint: General Complaint Source: Patient Present Illness HPI 61-year-old male presents emergency department complaining of G-tube fell out this morning at approximately 11:15 AM. Patient is nonverbal on presents with paperwork from senior living describing incident. Patient has a history of cerebral palsy, diabetes, BPH, urinary retention, GERD. History of present illness and ROS is limited. Allergies: Coded Allergies: NO KNOWN DRUG ALLERGIES (Unverified Allergy, Unknown, 08/22/15) Patient History Limited by: medical condition - cerebral palsy and non-verbal Past Medical History: see triage record, DM, GERD Past Surgical History: none Pertinent Family History: none Immunizations: UTD Reviewed Nursing Documentation: PMH: Agreed, PSxH: Agreed Nursing Documentation-PMH Hx Cardiac Problems: Yes Hx Hypertension: Yes Hx Pacemaker: No Hx Asthma: No Hx COPD: Yes Hx Diabetes: No Hx Cancer: No Hx Gastrointestinal Problems: No Hx Dialysis: No Hx Neurological Problems: No Hx Cerebrovascular Accident: Yes Hx Seizures: No Hx Speech Problem: Yes Hx Aphasia: Yes Hx Weakness: Yes Review of Systems All Other Systems: limited - limited due to pt. being non-verbal, HPI gathered from senior living documentation Physical Exam Vital Signs Date Time Temp Pulse Resp B/P Pulse Ox O2 Delivery O2 Flow Rate FiO2 12/13/16 13:47 98.2 90 20 110/60 98 Room Air Sp02 EP Interpretation: reviewed, normal General Appearance: no apparent distress, alert, non-toxic, Chronically Ill Head: normocephalic, atraumatic Eyes: bilateral eye PERRL, bilateral eye normal inspection ENT: hearing grossly normal, no angioedema Respiratory: lungs clear, normal breath sounds, speaking full sentences Cardiovascular #1: regular rate, rhythm, no edema Gastrointestinal: normal bowel sounds, non tender, soft, no guarding, no rebound, other - there is a duvall catheter in place at the site of G-Tube, no evidence of infeciton noted, no bleeding noted. Rectal: deferred Neurologic: alert Skin: normal color, no rash, warm/dry, well hydrated Lymphatic: no adenopathy Procedures Additional Procedure Procedure Narrative G- TUBE REPLACEMENT: - The urinary catheter was deflated and removed from the G-Tube site. - G- Tube Replacement performed at bed side in a sterile fashion. Pt. was prepped and draped in a sterile fashion a new size 22 G-tube was lubricated and inserted into the stoma, after advancement the tube was carefully withdrawn as the balloon was filled with 5cc of air. the tube flushed easily and gastric contents were retrieved. - Pt tolerated well. There were no complications Medical Decision Making PA Attestation Dr. elise is my supervising Physician whom patient management has been discussed with. Diagnostic Impression: Primary Impression: Malfunction of gastrostomy tube ER Course Pt. presents to the ED c/o requiring G-tube replacement due to dislodged G-tube. Ddx considered but are not limited to G-tube malfunction, closure of the stoma, infection Vital signs: are WNL, pt. is afebrile H&PE are most consistent with nonfunctioning G-tube requiring replacement due to dislodgement of the tube. There is no evidence of infection, and the previous G-Tube stoma is currently being held open with a 22 urinary catheter. ED INTERVENTIONS: - The urinary catheter was deflated and removed from the G-Tube site. - G- Tube Replacement performed at bed side in a sterile fashion. Pt. was prepped and draped in a sterile fashion a new size 22 G-tube was lubricated and inserted into the stoma, after advancement the tube was carefully withdrawn as the balloon was filled with 5cc of air. the tube flushed easily and gastric contents were retrieved. - Pt tolerated well. There were no complications ORDERS: -Abdominal KUB with Gastrografin shows satisfactory placement of the new G-Tube per radiology report. - Ambulance transport back to the custodial was facilitated. DISCHARGE: At this time pt. is stable for d/c to home. Will provide printed patient care instructions, and any necessary prescriptions. Care plan and follow up instructions have been discussed with the patient prior to discharge. Last Vital Signs Date Time Temp Pulse Resp B/P Pulse Ox O2 Delivery O2 Flow Rate FiO2 12/13/16 13:47 98.2 90 20 110/60 98 Room Air Disposition: HOME, SELF-CARE Condition: Stable Patient Instructions: Gastrostomy Tube Replacement, Care After Additional Instructions: Take medications as directed. Follow up with PCP in 3-5 days Return sooner to ED if new symptoms occur, or current symptoms become worse. - Please note that this Emergency Department Report was dictated using [email or web address] data warehouse architect technology software, occasionally this can lead to erroneous entry secondary to interpretation by the dictation equipment. Cynthia Del Cid December 13, 2016 14:14
[2016-12-13 14:44] VITALS: BP 110/60
[2016-12-13 17:40] VITALS: BP 111/72
--- NOTE | 2016-12-14 11:27 | Diagnostic Imaging Report ---
Indications: Percutaneous gastrostomy tube replacement Technique: Portable AP view of the abdomen with administration of water soluble contrast through gastrostomy tube Findings: Comparison: 3016 Percutaneous gastrostomy tube is present in the stomach. Injected contrast opacifies lumens of the tube, stomach both proximal and distal to the tube, and proximal small bowel. All are normal in caliber. No extraluminal contrast extravasation is demonstrated. Abdomen and pelvis incompletely imaged. Visualized portions of bowel gas pattern unremarkable. Degenerative changes are present in the lumbar spine. Surgical clips again noted in the left hemipelvis. IMPRESSION: Percutaneous gastrostomy tube in stomach. No evidence of obstruction or extravasation. No other evidence of acute abdominopelvic disease, with limitation as described. Chronic changes as described.
== END 2016-12-13 17:50 | disposition home or self-care (01) ==
LOC: EDBD 13:42 → EMR 14:18
DX: K94.23 Gastrostomy malfunction (principal); Y83.3 Surgical operation with formation of external stoma as the cause of abnormal reaction of the patient, or of later complication, without mention of misadventure at the time of the procedure; Y92.89 Other specified places as the place of occurrence of the external cause; J44.9 Chronic obstructive pulmonary disease, unspecified; I10 Essential (primary) hypertension; Z86.73 Personal history of transient ischemic attack (TIA), and cerebral infarction without residual deficits
CPT/HCPCS: 43760; 74000; 99283; Q9963

== ENCOUNTER 2017-03-24 10:52 | Emergency (ER) | payer MEDICARE, MEDICAID ==
[~2017-03-24] VITALS: Ht 177.8 cm; Wt 81.6 kg
[2017-03-24 10:52] VITALS: BP_SYST 101; BP_DIAS 59; BP_DIAS 72
--- NOTE | 2017-03-24 11:15 | Emergency Room Report ---
History of Present Illness General Chief Complaint: Malfunctioning Gastric Tube Source: Medical Record, EMS Present Illness HPI 61-year-old male, past medical history of diabetes, cerebral palsy, sent from prison as patient was noted to pull his G-tube. EMS states that now the G -tube is not functioning properly. No other known complaints. Allergies: Coded Allergies: NO KNOWN DRUG ALLERGIES (Unverified Allergy, Unknown, 08/22/15) Patient History Past Medical History: see triage record Past Surgical History: unable to obtain Pertinent Family History: unable to obtain Reviewed Nursing Documentation: PMH: Agreed, PSxH: Agreed Nursing Documentation-PMH Hx Cardiac Problems: Yes Hx Hypertension: Yes Hx Pacemaker: No Hx Asthma: No Hx Diabetes: No Hx Cancer: No Hx Dialysis: No Hx Neurological Problems: No Hx Cerebrovascular Accident: Yes Hx Seizures: Yes Hx Speech Problem: Yes Hx Aphasia: Yes Hx Weakness: Yes Review of Systems All Other Systems: limited - nonverbal Physical Exam Vital Signs Date Time Temp Pulse Resp B/P (MAP) Pulse Ox O2 Delivery O2 Flow Rate FiO2 03/24/17 10:49 97.9 86 14 100/72 97 Room Air Sp02 EP Interpretation: reviewed, normal General Appearance: other - chronically ill appearing middle aged male, awake, bed bound, non verbal Head: normocephalic, atraumatic Eyes: bilateral eye normal inspection, bilateral eye PERRL, bilateral eye EOMI ENT: normal ENT inspection, normal pharynx, moist mucus membranes Neck: normal inspection, full range of motion, supple Respiratory: normal inspection, lungs clear, normal breath sounds, no respiratory distress, no retraction, no wheezing, chest symmetrical Cardiovascular #1: normal inspection, regular rate, rhythm, no edema, normal capillary refill Cardiovascular #2: 2+ radial (R), 2+ radial (L) Gastrointestinal: soft, other - peg tube in place, unable to fully flush. abdomen soft, no grimace to deep palpation Musculoskeletal: normal inspection, back normal, normal range of motion, non- tender Neurologic: alert, other - bedbound, nonverbal, not ff commands Psychiatric: normal inspection, judgement/insight normal, memory normal Skin: normal inspection, normal color, no rash, warm/dry, well hydrated, normal turgor Procedures Additional Procedure Procedure Narrative G-tube replacement Sterile precautions 22 Jamaican G-tube replaced, balloon inflated with 20 mL of sterile water, flushed well, gastric contents aspirated, will confirm placement with x-ray study Medical Decision Making Diagnostic Impression: Primary Impression: Malfunction of gastrostomy tube ER Course 61 yo M with malfunctioning gtube G tube malfunction Plan: replace G tube ff by study to confirm placement ER course: G tube replaced, study confirms placement Disposition: Patient is to be discharged to nursing facility. Please note that this Emergency Department Report was dictated using [employer] hunter technology software, occasionally this can lead to erroneous entry secondary to interpretation by the dictation equipment Other X-Ray Diagnostic Results Other X-Ray Diagnostic Results : X-Ray ordered: Abd XR with gastrograffin # of Views/Limited Vs Complete: 1 View Indication: Other EP Interpretation: Yes Impression: Other - G tube in place Interpreting ER Provider: Electronically signed by Dusty Dukes MD Last Vital Signs Date Time Temp Pulse Resp B/P (MAP) Pulse Ox O2 Delivery O2 Flow Rate FiO2 03/24/17 10:52 97.8 86 16 101/72 97 Room Air Disposition: XFER SNF Condition: Improved Dusty Dukes M.D. Mar 24, 2017 11:15
[2017-03-24] MEDS ORDERED: ACETAMINOPHEN325 M1 ORAL (11:45)
[2017-03-24] MEDS ORDERED: MULTI-DELYN237 ML GT (11:45)
[2017-03-24] MEDS ORDERED: TYLENOL EXTRA500 MG GT (11:45)
[2017-03-24] MEDS ORDERED: MILK OF MA400 MG/51 ORAL (11:45)
[2017-03-24] MEDS ORDERED: BISACODYL5 MG GT (11:45)
[2017-03-24] MEDS ORDERED: OMEPRAZOLE20 M3 GT (11:45)
[2017-03-24] MEDS ORDERED: VIMPAT100 MG GT (11:45)
[2017-03-24 13:08] VITALS: BP 112/76
[2017-03-24 14:24] VITALS: BP 112/76
--- NOTE | 2017-03-25 12:10 | Diagnostic Imaging Report ---
Indication: Gastrostomy injection Comparison: 12/13/16 Single view of the abdomen obtained Gastrostomy balloon is in the antrum of the stomach. There is contrast in the stomach. No leak identified. Impression: Unremarkable gastrostomy
--- NOTE | 2017-03-26 21:08 | Emergency Room Report ---
History of Present Illness General Chief Complaint: Malfunctioning Gastric Tube Source: Medical Record, EMS Present Illness Allergies: Coded Allergies: NO KNOWN DRUG ALLERGIES (Unverified Allergy, Unknown, 08/22/15) Nursing Documentation-PMH Hx Cardiac Problems: Yes Hx Hypertension: Yes Hx Pacemaker: No Hx Asthma: No Hx Diabetes: No Hx Cancer: No Hx Dialysis: No Hx Neurological Problems: No Hx Cerebrovascular Accident: Yes Hx Seizures: Yes Hx Speech Problem: Yes Hx Aphasia: Yes Hx Weakness: Yes Physical Exam Vital Signs Date Time Temp Pulse Resp B/P (MAP) Pulse Ox O2 Delivery O2 Flow Rate FiO2 03/24/17 10:49 97.9 86 14 100/72 97 Room Air Medical Decision Making Diagnostic Impression: Primary Impression: Malfunction of gastrostomy tube Additional Impression: Malfunction of percutaneous endoscopic gastrostomy (PEG) tube Other X-Ray Diagnostic Results Other X-Ray Diagnostic Results : X-Ray ordered: Abd XR # of Views/Limited Vs Complete: 1 View Indication: Other - G tube placement Interpretation: other - G tube in place Impression: No acute disease Interpreting ER Provider: Electronically signed by Dusty Dukes MD Last Vital Signs Date Time Temp Pulse Resp B/P (MAP) Pulse Ox O2 Delivery O2 Flow Rate FiO2 03/24/17 14:24 98.6 82 19 112/76 96 Room Air Disposition: SNF Condition: Improved Referrals: TONYA GOOD (PCP) Patient Instructions: Gastrostomy Tube Home Guide, Adult Dusty Dukes M.D. Mar 26, 2017 21:08
== END 2017-03-24 14:26 ==
LOC: EDBD 10:52 → EMR 11:05
DX: K94.23 Gastrostomy malfunction (principal); I10 Essential (primary) hypertension; Z86.73 Personal history of transient ischemic attack (TIA), and cerebral infarction without residual deficits
CPT/HCPCS: 43760; 74000; 99284; Q9963

== ENCOUNTER 2017-07-15 23:33 | Inpatient (IN) | payer MEDICARE, MEDICAID ==
[~2017-07-15] VITALS: Ht 177.8 cm; Wt 93.0 kg
[~2017-07-15 23:33] MED LIST changes: +ACETAMINOPHEN325 M1 ORAL; +BISACODYL5 MG GT; +MILK OF MA400 MG/51 ORAL; +MULTI-DELYN237 ML GT; +OMEPRAZOLE20 M3 GT; +TYLENOL EXTRA500 MG GT; +VIMPAT100 MG GT
[2017-07-16] MEDS ORDERED: Cefepime HCl 1 GM in NS 55 ML IV SCH (00:15)
[2017-07-16 03:31] LABS: BASOPHILS % (AUTO) 1.1 % (0.0-2.0); EOSINOPHILS % (AUTO) 2.9 % (0.0-3.0); LYMPHOCYTES % (AUTO) 33.9 % (20.0-45.0); MEAN CORPUSCULAR HEMOGLOBIN 22.1 PG (27.0-31.0); MEAN CORPUSCULAR HGB CONC 30.6 G/DL (32.0-36.0); MEAN CORPUSCULAR VOLUME 72 FL (80-99); PLATELET COUNT 205 K/UL (150-450); RED BLOOD COUNT 6.28 M/UL (4.70-6.10); RED CELL DISTRIBUTION WIDTH 14.1 % (11.6-14.8); WHITE BLOOD COUNT 6.8 K/UL (4.8-10.8)
[2017-07-16 03:55] LABS: ANION GAP 13 mmol/L (5-15); CALCIUM 9.2 MG/DL (8.5-10.1); CARBON DIOXIDE 24 MMOL/L (21-32); CHLORIDE 104 MMOL/L (98-107); GLOMERULAR FILTRATION RATE > 60 mL/min (>60); POTASSIUM 4.2 MMOL/L (3.5-5.1); SODIUM 140 MMOL/L (136-145)
[2017-07-16] MEDS ORDERED: Cefepime 1gm vial ONE (03:57)
[2017-07-16 04:08] LABS: ALANINE AMINOTRANSFERASE 16 U/L (12-78); ALBUMIN/GLOBULIN RATIO 0.7 (1.0-2.7); ASPARTATE AMINO TRANSFERASE 12 U/L (15-37); CKMB 0.9 NG/ML (0.0-3.6); TOTAL PROTEIN 8.2 G/DL (6.4-8.2)
[2017-07-16 04:10] LABS: REFLEX LACTIC ACID YES OR NO YES
[2017-07-16 05:34] VITALS: BP 117/75
--- NOTE | 2017-07-16 06:12 | Emergency Room Report ---
History of Present Illness General Chief Complaint: Dyspnea/Respdistress Present Illness HPI Patient 61-year-old male brought in by EMS after increased difficulty breathing. Patient prior history of seizure disorder as well as chronic neurologic impairment. The patient G-tube dependent. History is markedly limited by patient's baseline mental status. History is obtained from EMS as well as old records. The patient noted have increased tachypnea. The patient been noted to be intermittently agitated previously Allergies: Coded Allergies: NO KNOWN DRUG ALLERGIES (Unverified Allergy, Unknown, 08/22/15) Patient History Past Medical History: see triage record, old chart reviewed Reviewed Nursing Documentation: PMH: Agreed, PSxH: Agreed Nursing Documentation-PMH Hx Cardiac Problems: Yes Hx Hypertension: Yes Hx Pacemaker: No Hx Asthma: No Hx Diabetes: No Hx Cancer: No Hx Dialysis: No Hx Neurological Problems: Yes - PARKINSONS,CEREBRAL PALSY Hx Cerebrovascular Accident: Yes Hx Seizures: Yes Hx Speech Problem: Yes Hx Aphasia: Yes Hx Weakness: Yes Review of Systems All Other Systems: limited - by mental status Physical Exam Vital Signs Date Time Temp Pulse Resp B/P (MAP) Pulse Ox O2 Delivery O2 Flow Rate FiO2 07/15/17 23:28 99.0 101 16 105/49 97 Nasal Cannula 2.0 Sp02 EP Interpretation: reviewed, normal General Appearance: normal inspection, well appearing, Chronically Ill Head: atraumatic ENT: normal ENT inspection, hearing grossly normal, normal voice Neck: normal inspection, supple, no bony tend, limited range of motion Respiratory: normal inspection, no retraction, wheezing Cardiovascular #1: regular rate, rhythm, no edema Gastrointestinal: non tender, soft, no guarding, no hernia, other - gtube site c/d/i Genitourinary: no CVA tenderness Musculoskeletal: decreased range of motion Neurologic: normal inspection, alert, responsive, motor weakness - lower extremity Psychiatric: depressed affect Skin: normal inspection, normal color, no rash Medical Decision Making Diagnostic Impression: Primary Impression: Feeding by G-tube Additional Impressions: Lactic acidosis Seizure disorder ER Course The patient presented to shortness of breath. Differential included but was not limited to anemia, pneumonia, pneumothorax, myocardial infarction, pericardial effusion, congestive heart failure, acidosis. Because of complexity of patient's case laboratory testing and imaging studies were ordered. Lab studies are notable for elevated lactic acid level..Dr. Amy Martínez was contacted for inpatient management due to covering physician Labs Test 07/16/17 03:02 White Blood Count 6.8 K/UL (4.8-10.8) Red Blood Count 6.28 M/UL (4.70-6.10) Hemoglobin 13.9 G/DL (14.2-18.0) Hematocrit 45.4 % (42.0-52.0) Mean Corpuscular Volume 72 FL (80-99) Mean Corpuscular Hemoglobin 22.1 PG (27.0-31.0) Mean Corpuscular Hemoglobin Concent 30.6 G/DL (32.0-36.0) Red Cell Distribution Width 14.1 % (11.6-14.8) Platelet Count 205 K/UL (150-450) Mean Platelet Volume 12.0 FL (6.5-10.1) Neutrophils (%) (Auto) 51.0 % (45.0-75.0) Lymphocytes (%) (Auto) 33.9 % (20.0-45.0) Monocytes (%) (Auto) 11.0 % (1.0-10.0) Eosinophils (%) (Auto) 2.9 % (0.0-3.0) Basophils (%) (Auto) 1.1 % (0.0-2.0) Sodium Level 140 MMOL/L (136-145) Potassium Level 4.2 MMOL/L (3.5-5.1) Chloride Level 104 MMOL/L (98-107) Carbon Dioxide Level 24 MMOL/L (21-32) Anion Gap 13 mmol/L (5-15) Blood Urea Nitrogen 23 mg/dL (7-18) Creatinine 1.0 MG/DL (0.55-1.30) Estimat Glomerular Filtration Rate > 60 mL/min (>60) Glucose Level 116 MG/DL (74-106) Lactic Acid Level 6.50 mmol/L (0.66-2.22) Calcium Level 9.2 MG/DL (8.5-10.1) Total Bilirubin 0.4 MG/DL (0.2-1.0) Aspartate Amino Transf (AST/SGOT) 12 U/L (15-37) Alanine Aminotransferase (ALT/SGPT) 16 U/L (12-78) Alkaline Phosphatase 84 U/L (46-116) Total Creatine Kinase 38 U/L (26-308) Creatine Kinase MB 0.9 NG/ML (0.0-3.6) Creatine Kinase MB Relative Index 2.3 Troponin I 0.000 ng/mL (0.000-0.056) Pro-B-Type Natriuretic Peptide 96 pg/mL (0-125) Total Protein 8.2 G/DL (6.4-8.2) Albumin 3.5 G/DL (3.4-5.0) Globulin 4.7 g/dL Albumin/Globulin Ratio 0.7 (1.0-2.7) EKG Diagnostic Results Rate: normal Rhythm: NSR ST Segments: no acute changes Last Vital Signs Date Time Temp Pulse Resp B/P (MAP) Pulse Ox O2 Delivery O2 Flow Rate FiO2 07/16/17 05:34 99.0 100 16 117/75 97 Nasal Cannula 2.0 Status: unchanged Disposition: ADMITTED INPATIENT Condition: Serious Referrals: TONYA GOOD (PCP) Ever Babcock Jul 16, 2017 06:12
[2017-07-16 09:00] VITALS: BP 105/71
--- NOTE | 2017-07-16 09:25 | Consultation ---
Consult Note Assessment/Plan dict suggest neuro consult ordered ROSINA, steroids KAVON CARROLL Jul 16, 2017 09:25
[2017-07-16] MEDS ORDERED: Acetaminophen 650mg/20.3ml GT PRN (10:45)
[2017-07-16] MEDS ORDERED: Albuterol/Ipratropium 3ml neb INH PRN (11:00)
[2017-07-16] MEDS ORDERED: Valproic Acid 250mg/5ml Liquid GT SCH (12:00)
[2017-07-16] MEDS ORDERED: LORazepam 1mg tab GT PRN (12:15)
--- NOTE | 2017-07-16 12:46 | GI Initial Consult Note ---
History of Present Illness General Date patient seen: Jul 16, 2017 Time patient seen: 12:45 Reason for Hospitalization: Dyspnea/Respdistress Referring physician: KRISTEN LOVE Reason for Consultation: GT site leakage Present Illness HPI Patient 61-year-old male brought in by EMS after increased difficulty breathing. Patient prior history of seizure disorder as well as chronic neurologic impairment. The patient G-tube dependent. History is markedly limited by patient's baseline mental status. History is obtained from EMS as well as old records. The patient noted have increased tachypnea. The patient been noted to be intermittently agitated previously. GI consulted for GT leakage/management. HPI as noted above. ROS limited. Pt seen on floor, awake A&O NAD with no active s/sx of N/V/D. No remarkable reports per RN. Patient resting comfortably. Presents today with mild anemia. Previous history as noted per chart. (1) Seizure (2) Schizophrenia (3) Diabetes (4) Hypertension (5) cerebral palsy with advanced mental retardation (6) Malfunction of gastrostomy tube - leakage (7) Anemia (8) C Diff Colitis Home Meds Reported Medications Bisacodyl* (DULCOLAX*) 5 Mg Tablet.dr, 5 MG GT PRN for Constipation, #10 TAB 0 Refills 03/24/17 Omeprazole (OMEPRAZOLE) 20 Mg Tablet.dr, 20 MG GT DAILY, TAB 03/24/17 Multivitamin Liquid* (MULTI-DELYN*) 237 Ml Liquid, 5 ML GT DAILY, ML 03/24/17 Magnesium Hydroxide* (MILK OF MAGNESIA*) 400 Mg/5 Ml Oral.susp, 30 ML ORAL HS Y for Constipation, ML 03/24/17 Lacosamide (VIMPAT) 100 Mg Tablet, 100 MG GT EVERY 12 HOURS, TAB 03/24/17 Acetaminophen* (ACETAMINOPHEN 325MG TABLET*) 325 Mg Tablet, 650 MG ORAL Q4H Y for Fever/Headache/Mild Pain, TAB 03/24/17 Acetaminophen* (TYLENOL EXTRA STRENGTH*) 500 Mg Tablet, 500 MG GT Q4HR Y for Moderate Pain (Pain Scale 4-6), TAB 0 Refills 03/24/17 Valproate Sodium (DEPAKENE) 250 Mg/5 Ml Solution, 500 MG GT Q12HR 08/23/16 Risperidone (RISPERDAL) 1 Mg/1 Ml Solution, 1 MG GT BID 08/23/16 Ondansetron* (ZOFRAN*) 4 Mg Tablet, 4 MG ORAL Q6H Y for Nausea & Vomiting, TAB 08/23/16 Nitroglycerin (NITROGLYCERIN) 0.4 Mg Tab.subl, 0.4 MG SL q5mns x three doses Y for chest pain, TAB 08/23/16 Levetiracetam (KEPPRA) 1,000 Mg Tablet, 1500 MG GT Q12HR, #30 TAB 0 Refills 08/23/16 Heparin Sod (Porcine) (HEPARIN SODIUM*) 5 000/1 Ml Vial, 5000 UNITS SUBQ EVERY 12 HOURS, VIAL 08/23/16 Finasteride* (PROSCAR*) 5 Mg Tablet, 5 MG GT DAILY, #30 TAB 0 Refills 08/23/16 Clotrimazole* (LOTRIMIN*) 15 Gm Cream..g., 1 APPLIC TOPIC TWICE A DAY for gt site, GM 08/23/16 Finasteride* (PROSCAR*) 5 Mg Tablet, 5 MG GT DAILY, #30 TAB 0 Refills 03/09/16 Famotidine (PEPCID) 20 Mg Tablet, 20 MG ORAL BEDTIME, #7 TAB 0 Refills 03/09/16 Valproate Sodium (VALPROIC ACID) 500 Mg/10 Ml Solution, 500 MG GT, ML 03/09/16 Ranitidine Hcl* (ZANTAC*) 150 Mg Tablet, 300 MG GT DAILY, #30 TAB 0 Refills 12/27/15 Polyethylene Glycol 3350* (MIRALAX*) 17 Gm Powd.pack, 17 GM GT DAILY Y for Constipation, PACKET 11/21/15 Ipratropium/Albuterol Sulfate (DuoNeb 0.5-3(2.5)mg/3ml) 3 Ml Ampul.neb, 3 ML HHN Q4HR Y for Shortness of Breath, EA 11/21/15 Acetaminophen (Acetaminophen) 650 Mg/20.3 Ml Soln, 325 MG ORAL EVERY 6 HOURS Y for Mild Pain/Temp > 100.5, ML 0 Refills 08/13/15 Docusate Sodium (DOCUSATE SODIUM) 100 Mg Tablet, 100 MG GT TWICE A DAY, #30 TAB 0 Refills 08/13/15 Metoprolol Tartrate (Metoprolol Tartrate) 25 Mg Tab, 25 MG GT EVERY 12 HOURS, TAB 08/13/15 Ipratropium/Albuterol Sulfate (DuoNeb 0.5-3(2.5)mg/3ml) 3 Ml Ampul.neb, 3 ML HHN Q6HR, EA 08/13/15 Lorazepam (ATIVAN) 4 Mg/1 Ml Vial, 0.5 MG IVP Q4HR Y for For Anxiety, VIAL 04/09/15 Acetaminophen* (ACETAMINOPHEN*) 160 Mg/5 Ml Solution, 650 MG GT Q4HR Y for Mild Pain/Temp > 100.5, ML 04/09/15 Levetiracetam (KEPPRA) 750 Mg Tablet, 750 MG GT EVERY 12 HOURS, TAB 04/09/15 Water For Irrigation,Sterile (WATER) 500 Ml Irrig.soln, 1000 ML IR for 2 Days 04/09/15 Vancomycin/0.9% Sod Chloride (VANCOMYCIN-0.9% NACL 1 G/250) 1 Gm/250 Ml Plast..bag, 1 GM IVPB Q8HR for 4 Days, BAG 04/09/15 Ranitidine Hcl* (ZANTAC*) 150 Mg Tablet, 150 MG GT BID, TAB 04/09/15 Prochlorperazine Edisylate* (COMPAZINE*) 10 Mg/2 Ml Vial, 10 MG IVP Q6H Y for Nausea & Vomiting, VIAL 04/09/15 Potassium Chloride (Potassium Chloride) 20 Meq/15 Ml Liqd, 40 MEQ GT BID, ML 04/09/15 Polyethylene Glycol 3350* (MIRALAX*) 17 Gm Powd.pack, 17 GM GT DAILY Y for Constipation, PACKET 04/09/15 Morphine Sulfate* (MORPHINE SULFATE*) 2 Mg/1 Ml Cartridge, 2 MG IVP Q4HR Y for For Pain, EA 04/09/15 Metoprolol Tartrate* (METOPROLOL TARTRATE*) 25 Mg Tablet, 25 MG GT EVERY 12 HOURS, TAB 04/09/15 Insulin Detemir (LEVEMIR FLEXPEN) 100 Unit/1 Ml Insuln.pen, 15 UNITS SUBQ EVERY 12 HOURS, #300 UNITS 0 Refills 04/09/15 Ipratropium/Albuterol Sulfate (DuoNeb 0.5-3(2.5)mg/3ml) 3 Ml Ampul.neb, 3 ML HHN Q6HR for Shortness of Breath, EA 04/09/15 [insulin novolog] No Conflict Check 04/09/15 Dextrose 50 % In Water (DEXTROSE 50%-WATER VIAL) 50 Ml Vial, 50 ML IV Y for Hypoglycemia, VIAL 04/09/15 Med list reviewed/reconciled: Yes Allergies: Coded Allergies: NO KNOWN DRUG ALLERGIES (Unverified Allergy, Unknown, 08/22/15) Patient History Limited by: medical condition History Provided By: Medical Record PMH Narrative Past Medical History: see triage record, old chart reviewed Reviewed Nursing Documentation: PMH: Agreed, PSxH: Agreed Nursing Documentation-PMH Hx Cardiac Problems: Yes Hx Hypertension: Yes Hx Pacemaker: No Hx Asthma: No Hx Diabetes: No Hx Cancer: No Hx Dialysis: No Hx Neurological Problems: Yes - PARKINSONS,CEREBRAL PALSY Hx Cerebrovascular Accident: Yes Hx Seizures: Yes Hx Speech Problem: Yes Hx Aphasia: Yes Hx Weakness: Yes Review of Systems All Other Systems: limited Physical Exam Vital Signs Date Time Temp Pulse Resp B/P (MAP) Pulse Ox O2 Delivery O2 Flow Rate FiO2 07/15/17 23:28 99.0 101 16 105/49 97 Nasal Cannula 2.0 Sp02 EP Interpretation: reviewed, normal Labs Laboratory Tests Test 07/16/17 03:02 07/16/17 06:20 White Blood Count 6.8 K/UL (4.8-10.8) Red Blood Count 6.28 M/UL (4.70-6.10) H Hemoglobin 13.9 G/DL (14.2-18.0) L Hematocrit 45.4 % (42.0-52.0) Mean Corpuscular Volume 72 FL (80-99) L Mean Corpuscular Hemoglobin 22.1 PG (27.0-31.0) L Mean Corpuscular Hemoglobin Concent 30.6 G/DL (32.0-36.0) L Red Cell Distribution Width 14.1 % (11.6-14.8) Platelet Count 205 K/UL (150-450) Mean Platelet Volume 12.0 FL (6.5-10.1) H Neutrophils (%) (Auto) 51.0 % (45.0-75.0) Lymphocytes (%) (Auto) 33.9 % (20.0-45.0) Monocytes (%) (Auto) 11.0 % (1.0-10.0) H Eosinophils (%) (Auto) 2.9 % (0.0-3.0) Basophils (%) (Auto) 1.1 % (0.0-2.0) Sodium Level 140 MMOL/L (136-145) Potassium Level 4.2 MMOL/L (3.5-5.1) Chloride Level 104 MMOL/L (98-107) Carbon Dioxide Level 24 MMOL/L (21-32) Anion Gap 13 mmol/L (5-15) Blood Urea Nitrogen 23 mg/dL (7-18) H Creatinine 1.0 MG/DL (0.55-1.30) Estimat Glomerular Filtration Rate > 60 mL/min (>60) Glucose Level 116 MG/DL (74-106) H Lactic Acid Level 6.50 mmol/L (0.66-2.22) H 1.50 mmol/L (0.66-2.22) Calcium Level 9.2 MG/DL (8.5-10.1) Total Bilirubin 0.4 MG/DL (0.2-1.0) Aspartate Amino Transf (AST/SGOT) 12 U/L (15-37) L Alanine Aminotransferase (ALT/SGPT) 16 U/L (12-78) Alkaline Phosphatase 84 U/L (46-116) Total Creatine Kinase 38 U/L (26-308) Creatine Kinase MB 0.9 NG/ML (0.0-3.6) Creatine Kinase MB Relative Index 2.3 Troponin I 0.000 ng/mL (0.000-0.056) Pro-B-Type Natriuretic Peptide 96 pg/mL (0-125) Total Protein 8.2 G/DL (6.4-8.2) Albumin 3.5 G/DL (3.4-5.0) Globulin 4.7 g/dL Albumin/Globulin Ratio 0.7 (1.0-2.7) L General Appearance: well appearing, no apparent distress, alert Head: normocephalic EENT: PERRL/EOMI, normal ENT inspection Neck: supple Respiratory: normal breath sounds, no respiratory distress Cardiovascular: normal rate Gastrointestinal: normal inspection, non tender, soft, normal bowel sounds, non -distended, gt - c/d/i Rectal: deferred Genitourinary: deferred Musculoskeletal: normal inspection, back normal Neurologic: normal inspection, alert, responsive Skin: normal inspection, normal color, no rash, warm/dry, palpation normal, well hydrated Lymphatic: normal inspection, no adenopathy Current Medications Current Medications Medications (Trade) Dose Ordered Sig/Monalisa Route PRN Reason Start Time Stop Time Status Last Admin Dose Admin Acetaminophen (Tylenol) 650 mg Q4HR PRN GT Fever/Headache/Mild Pain 07/16/17 10:45 08/15/17 10:44 Albuterol/ Ipratropium (Albuterol/ Ipratropium) 3 ml Q4H PRN INH Shortness of Breath 07/16/17 11:00 07/21/17 10:59 Bisacodyl (Dulcolax) 5 mg DAILYPRN PRN ORAL CONSTIPATION 07/16/17 11:45 08/15/17 11:44 UNV Dextrose/Sodium Chloride 1,000 ml @ 50 mls/hr Q20H IV 07/16/17 12:30 08/15/17 12:29 Docusate Sodium (Colace) 100 mg TWICE A DAY GT 07/16/17 18:00 08/15/17 17:59 Finasteride (Proscar) 5 mg DAILY ORAL 07/17/17 09:00 08/16/17 08:59 Lacosamide (Vimpat) 100 mg Q12HR ORAL 07/16/17 12:00 08/15/17 11:59 Levetiracetam (Keppra) 2,000 mg Q12HR GT 07/16/17 11:00 08/15/17 10:59 UNV Lorazepam (Ativan) 2 mg Q6H PRN GT Agitation 07/16/17 12:15 07/23/17 12:14 Methylprednisolone Sodium Succinate (Solu-MEDROL) 40 mg EVERY 8 HOURS IVP 07/16/17 14:00 08/15/17 13:59 Ondansetron HCl (Zofran) 4 mg Q6H PRN GT Nausea & Vomiting 07/16/17 11:45 08/15/17 11:44 Ranitidine HCl (Zantac) 150 mg Q12HR GT 07/16/17 21:00 08/15/17 20:59 Valproic Acid (Depakene) 750 mg EVERY 12 HOURS GT 07/16/17 21:00 08/15/17 20:59 GI: Plan Problems: (1) alf resident (2) Feeding by G-tube (3) Diabetes Plan symptomatic treatment at this time GTFs per dietary GT site care daily/prn monitor H&H, prn transfusion H2B fu labs Discussed with Dr. Light. Thank you for this patient referral, we will follow. Chery Mcfarland N.P. Jul 16, 2017 12:46
[2017-07-16] MEDS: D5NS 1,000 ML IV SCH (13:34)
[2017-07-16] MEDS: Lacosamide 100 MG TABLET ORAL SCH ×2 (13:36→21:27)
[2017-07-16] MEDS: levETIRAcetam 500mg/5ml Liquid GT SCH ×2 (13:37→21:27)
[2017-07-16] MEDS: Solu-MEDROL 40mg Inj IVP SCH ×2 (13:38→21:27)
--- NOTE | 2017-07-16 15:00 | Consultation ---
DATE OF CONSULTATION: 07/16/2017 PULMONARY CONSULTATION HISTORY OF PRESENT ILLNESS: The patient is a 61-year-old man brought in from a skilled nursing because of wheezing and respiratory distress with low saturation. He has dementia and can provide no additional history. He was seen in the emergency department and similar findings were noted. There was no report on x-ray available. Admission was arranged and I was called in to see him in consultation. PAST MEDICAL HISTORY: COPD, Parkinson disease, cerebral palsy, diabetes, anemia, chronic kidney disease, G-tube, schizophrenia, urinary retention, and seizure disorder on multiple seizure medications. MEDICATIONS: Reviewed and reconciled. ALLERGIES: None. REVIEW OF SYSTEMS: Cannot be obtained. PHYSICAL EXAMINATION: GENERAL: The patient is awake, but stares at the ceiling. He does not respond appropriately. VITAL SIGNS: The heart rate is 100, temperature 99 degrees, respirations 16, blood pressure 117/75 and saturation is 97% to 100% on two liters. He is overweight. His skin is warm and dry. HEENT: The head is normocephalic. NECK: No jugular venous distention. CHEST: Mild wheezing. CARDIAC: Rhythm is regular. ABDOMEN: Soft and nontender. Liver and spleen not enlarged. Gastric tube is in place. EXTREMITIES: No clubbing, cyanosis, or edema. LABORATORY AND DIAGNOSTIC DATA: Laboratory studies show normal white count, hemoglobin is 13.9, and platelets are normal. Chemistry shows creatinine is 1.02 and blood sugar 116. Lactic acid is markedly elevated at 6.50, but repeat was normal at 1.5 within three hours. IMPRESSION: 1. Chronic obstructive pulmonary disease exacerbation. 2. Dementia. 3. Cerebral palsy. 4. Parkinson disease. 5. Dysphagia with gastric tube. 6. Seizure disorder. DISCUSSION AND PLAN: The marked elevation of lactic acid did clear quickly, may be an indication that he had a seizure that precipitated this event, however, it was un witnessed. He is on four antiseizure medications and these will be continued. I would suggest Neurology consultation. We will treat with bronchodilators and steroids and I will follow closely with you. Gee Marvin M.D. DR: MAT JOB#: [id number] CC: Amy Martínez M.D.; Fax#: [phone] GEE MARVIN M.D. ; FAX#: [phone]
[2017-07-16 15:56] LABS: APPEARANCE,URINE CLEAR; KETONES,URINE NEGATIVE (NEGATIVE); LEUKOCYTE ESTERASE ,URINE 1+ (NEGATIVE); NITRITE,URINE NEGATIVE (NEGATIVE); PH,URINE 7 (4.5-8.0); PROTEIN,URINE NEGATIVE (NEGATIVE); UROBILINOGEN,URINE NORMAL MG/DL (0.0-1.0)
[2017-07-16 16:00] VITALS: BP 127/71
[2017-07-16 16:15] LABS: BACTERIA,URINE OCCASIONAL /HPF; WBC,URINE 15-20 /HPF (0 - 0)
--- NOTE | 2017-07-16 17:24 | Diagnostic Imaging Report ---
Indication: Reason For Exam: SOB Technique: One view of the chest Comparison: 08/07/2016 Findings: Suboptimal inspiration with crowding of the bronchovascular markings. Lungs and pleural spaces otherwise clear. Normal heart size. No significant interim change Impression: No acute process
[2017-07-16] MEDS: Docusate 100mg/10ml Liq GT SCH (18:00)
--- NOTE | 2017-07-16 18:13 | Cardiology Report ---
APPROVED REPORT EKG Measurement Heart [id number] Normal sinus rhythm Normal ECG
[2017-07-16 21:00] VITALS: BP 132/54
[2017-07-16] MEDS: Valproic Acid 250mg/5ml Liquid GT SCH (21:28)
--- NOTE | 2017-07-16 23:25 | Consultation ---
History of Present Illness General Chief Complaint: Dyspnea/Respdistress Referring physician: KRISTEN LOVE Reason for Consultation: GT site leakage Present Illness HPI 61-year-old man brought in from a residential because of wheezing and respiratory distress with low saturation. He has dementia and can provide no additional history. Allergies: Coded Allergies: NO KNOWN DRUG ALLERGIES (Unverified Allergy, Unknown, 08/22/15) Medication History Scheduled Bisacodyl* (Dulcolax*), 5 MG GT PRN, (Reported) Clotrimazole* (Lotrimin*), 1 APPLIC TOPIC TWICE A DAY, (Reported) Docusate Sodium (Docusate Sodium), 100 MG GT TWICE A DAY, (Reported) Famotidine (Pepcid), 20 MG ORAL BEDTIME, (Reported) Finasteride* (Proscar*), 5 MG GT DAILY, (Reported) Finasteride* (Proscar*), 5 MG GT DAILY, (Reported) Heparin Sod (Porcine) (Heparin Sodium*), 5,000 UNITS SUBQ EVERY 12 HOURS, ( Reported) Insulin Detemir (Levemir Flexpen), 15 UNITS SUBQ EVERY 12 HOURS, (Reported) Ipratropium/Albuterol Sulfate (DuoNeb 0.5-3(2.5)mg/3ml), 3 ML HHN Q6HR, ( Reported) Ipratropium/Albuterol Sulfate (DuoNeb 0.5-3(2.5)mg/3ml), 3 ML HHN Q6HR, ( Reported) Lacosamide (Vimpat), 100 MG GT EVERY 12 HOURS, (Reported) Levetiracetam (Keppra), 750 MG GT EVERY 12 HOURS, (Reported) Levetiracetam (Keppra), 1,500 MG GT Q12HR, (Reported) Metoprolol Tartrate (Metoprolol Tartrate), 25 MG GT EVERY 12 HOURS, (Reported) Metoprolol Tartrate* (Metoprolol Tartrate*), 25 MG GT EVERY 12 HOURS, (Reported) Multivitamin Liquid* (Multi-Delyn*), 5 ML GT DAILY, (Reported) Omeprazole (Omeprazole), 20 MG GT DAILY, (Reported) Potassium Chloride (Potassium Chloride), 40 MEQ GT BID, (Reported) Ranitidine Hcl* (Zantac*), 150 MG GT BID, (Reported) Ranitidine Hcl* (Zantac*), 300 MG GT DAILY, (Reported) Risperidone (Risperdal), 1 MG GT BID, (Reported) Valproate Sodium (Depakene), 500 MG GT Q12HR, (Reported) Vancomycin/0.9% Sod Chloride (Vancomycin-0.9% Nacl 1 G/250), 1 GM IVPB Q8HR, ( Reported) Scheduled PRN Acetaminophen (Acetaminophen), 325 MG ORAL EVERY 6 HOURS PRN for Mild Pain/Temp > 100.5, (Reported) Acetaminophen* (Acetaminophen*), 650 MG GT Q4HR PRN for Mild Pain/Temp > 100.5, (Reported) Acetaminophen* (Tylenol Extra Strength*), 500 MG GT Q4HR PRN for Moderate Pain ( Pain Scale 4-6), (Reported) Acetaminophen* (Acetaminophen 325MG Tablet*), 650 MG ORAL Q4H PRN for Fever/ Headache/Mild Pain, (Reported) Dextrose 50 % In Water (Dextrose 50%-Water Vial), 50 ML IV for Hypoglycemia, ( Reported) Ipratropium/Albuterol Sulfate (DuoNeb 0.5-3(2.5)mg/3ml), 3 ML HHN Q4HR PRN for Shortness of Breath, (Reported) Lorazepam (Ativan), 0.5 MG IVP Q4HR PRN for For Anxiety, (Reported) Magnesium Hydroxide* (Milk Of Magnesia*), 30 ML ORAL HS PRN for Constipation, ( Reported) Morphine Sulfate* (Morphine Sulfate*), 2 MG IVP Q4HR PRN for For Pain, (Reported ) Nitroglycerin (Nitroglycerin), 0.4 MG SL q5mns x three doses PRN for chest pain, (Reported) Ondansetron* (Zofran*), 4 MG ORAL Q6H PRN for Nausea & Vomiting, (Reported) Polyethylene Glycol 3350* (Miralax*), 17 GM GT DAILY PRN for Constipation, ( Reported) Polyethylene Glycol 3350* (Miralax*), 17 GM GT DAILY PRN for Constipation, ( Reported) Prochlorperazine Edisylate* (Compazine*), 10 MG IVP Q6H PRN for Nausea & Vomiting, (Reported) Miscellaneous Medications Valproate Sodium (Valproic Acid), 500 MG GT, (Reported) Water For Irrigation,Sterile (Water), 1,000 ML IR, (Reported) [insulin novolog], (Reported) Patient History Healthcare decision maker Resuscitation status Advanced Directive on File Physical Exam Last 24 Hour Vital Signs Date Time Temp Pulse Resp B/P (MAP) Pulse Ox O2 Delivery O2 Flow Rate FiO2 07/16/17 21:00 97.7 73 18 132/54 Nasal Cannula 07/16/17 16:00 97.1 97 20 127/71 99 07/16/17 11:30 2.0 07/16/17 09:00 96.0 79 17 105/71 99 07/16/17 06:42 99.0 100 16 117/75 97 Nasal Cannula 2.0 07/16/17 05:34 99.0 100 16 117/75 97 Nasal Cannula 2.0 07/16/17 00:30 101 16 Nasal Cannula 2.0 07/15/17 23:28 99.0 101 16 105/49 97 Nasal Cannula 2.0 Intake and Output 07/16/17 07/17/17 19:00 07:00 Intake Total 2050 ml Balance 2050 ml Free Water 1800 ml IV Total 250 ml # Voids 3 Laboratory Tests Test 07/16/17 03:02 07/16/17 06:20 07/16/17 15:00 White Blood Count 6.8 K/UL (4.8-10.8) Red Blood Count 6.28 M/UL (4.70-6.10) H Hemoglobin 13.9 G/DL (14.2-18.0) L Hematocrit 45.4 % (42.0-52.0) Mean Corpuscular Volume 72 FL (80-99) L Mean Corpuscular Hemoglobin 22.1 PG (27.0-31.0) L Mean Corpuscular Hemoglobin Concent 30.6 G/DL (32.0-36.0) L Red Cell Distribution Width 14.1 % (11.6-14.8) Platelet Count 205 K/UL (150-450) Mean Platelet Volume 12.0 FL (6.5-10.1) H Neutrophils (%) (Auto) 51.0 % (45.0-75.0) Lymphocytes (%) (Auto) 33.9 % (20.0-45.0) Monocytes (%) (Auto) 11.0 % (1.0-10.0) H Eosinophils (%) (Auto) 2.9 % (0.0-3.0) Basophils (%) (Auto) 1.1 % (0.0-2.0) Sodium Level 140 MMOL/L (136-145) Potassium Level 4.2 MMOL/L (3.5-5.1) Chloride Level 104 MMOL/L (98-107) Carbon Dioxide Level 24 MMOL/L (21-32) Anion Gap 13 mmol/L (5-15) Blood Urea Nitrogen 23 mg/dL (7-18) H Creatinine 1.0 MG/DL (0.55-1.30) Estimat Glomerular Filtration Rate > 60 mL/min (>60) Glucose Level 116 MG/DL (74-106) H Lactic Acid Level 6.50 mmol/L (0.66-2.22) H 1.50 mmol/L (0.66-2.22) Calcium Level 9.2 MG/DL (8.5-10.1) Total Bilirubin 0.4 MG/DL (0.2-1.0) Aspartate Amino Transf (AST/SGOT) 12 U/L (15-37) L Alanine Aminotransferase (ALT/SGPT) 16 U/L (12-78) Alkaline Phosphatase 84 U/L (46-116) Total Creatine Kinase 38 U/L (26-308) Creatine Kinase MB 0.9 NG/ML (0.0-3.6) Creatine Kinase MB Relative Index 2.3 Troponin I 0.000 ng/mL (0.000-0.056) Pro-B-Type Natriuretic Peptide 96 pg/mL (0-125) Total Protein 8.2 G/DL (6.4-8.2) Albumin 3.5 G/DL (3.4-5.0) Globulin 4.7 g/dL Albumin/Globulin Ratio 0.7 (1.0-2.7) L Urine Color Pale yellow Urine Appearance Clear Urine pH 7 (4.5-8.0) Urine Specific [place] 1.010 (1.005-1.035) Urine Protein Negative (NEGATIVE) Urine Glucose (UA) Negative (NEGATIVE) Urine Ketones Negative (NEGATIVE) Urine Occult Blood 1+ (NEGATIVE) H Urine Nitrite Negative (NEGATIVE) Urine Bilirubin Negative (NEGATIVE) Urine Urobilinogen Normal MG/DL (0.0-1.0) Urine Leukocyte Esterase 1+ (NEGATIVE) H Urine RBC 5-10 /HPF (0 - 0) H Urine WBC 15-20 /HPF (0 - 0) H Urine Squamous Epithelial Cells None /LPF (NONE/OCC) Urine Bacteria Occasional /HPF (NONE) Microbiology Date/Time Source Procedure Growth Status 07/16/17 18:55 Nasal Nares Influenza Types A,B Antigen (YAZ) - Final Complete Height (Feet): 5 Height (Inches): 10.00 Weight (Pounds): 205 Medications Current Medications Medications (Trade) Dose Ordered Sig/Monalisa Route PRN Reason Start Time Stop Time Status Last Admin Dose Admin Acetaminophen (Tylenol) 650 mg Q4HR PRN GT Fever/Headache/Mild Pain 07/16/17 10:45 08/15/17 10:44 Albuterol/ Ipratropium (Albuterol/ Ipratropium) 3 ml Q4H PRN INH Shortness of Breath 07/16/17 11:00 07/21/17 10:59 Bisacodyl (Dulcolax) 10 mg DAILYPRN PRN RECTAL Constipation 07/16/17 13:00 08/15/17 12:59 Dextrose/Sodium Chloride 1,000 ml @ 50 mls/hr Q20H IV 07/16/17 12:30 08/15/17 12:29 07/16/17 13:34 Docusate Sodium (Colace) 100 mg TWICE A DAY GT 07/16/17 18:00 08/15/17 17:59 07/16/17 18:00 Finasteride (Proscar) 5 mg DAILY ORAL 07/17/17 09:00 08/16/17 08:59 Lacosamide (Vimpat) 100 mg Q12HR ORAL 07/16/17 12:00 08/15/17 11:59 07/16/17 21:27 Levetiracetam (Keppra) 2,000 mg Q12HR GT 07/16/17 13:00 08/15/17 12:59 07/16/17 21:27 Lorazepam (Ativan) 2 mg Q6H PRN GT Agitation 07/16/17 12:15 07/23/17 12:14 Methylprednisolone Sodium Succinate (Solu-MEDROL) 40 mg EVERY 8 HOURS IVP 07/16/17 14:00 08/15/17 13:59 07/16/17 21:27 Ondansetron HCl (Zofran) 4 mg Q6H PRN GT Nausea & Vomiting 07/16/17 11:45 08/15/17 11:44 Ranitidine HCl (Zantac) 150 mg Q12HR GT 07/16/17 21:00 08/15/17 20:59 07/16/17 21:27 Valproic Acid (Depakene) 750 mg EVERY 12 HOURS GT 07/16/17 21:00 08/15/17 20:59 07/16/17 21:28 Kathleen Euceda M.D. Jul 16, 2017 23:25
--- NOTE | 2017-07-16 23:32 | Consultation ---
DATE OF CONSULTATION: 07/16/2017 INFECTIOUS DISEASES CONSULTATION CONSULTING PHYSICIAN: Sanjay Thomas M.D. PRIMARY ATTENDING PHYSICIAN: Amy Martínez M.D. REASON FOR CONSULTATION: Systemic inflammatory response, sepsis. HISTORY OF PRESENT ILLNESS: This is a 61-year-old intermediate resident, admitted today because of shortness of breath, wheezing, chest congestion, and hypoxia. No fever and leukocytosis was found in the patient, but he had lactic acidosis and tachycardia at the time of admission. PAST MEDICAL HISTORY: Significant for cerebral palsy, mental retardation, hypertension, status post G-tube placement, diabetes mellitus, and seizure disorder. MEDICATIONS: Getting Proscar, , Zantac, losartan, methylprednisone, valproic acid, , D5 normal saline at 50 mL/hour, bisacodyl, Zofran, albuterol, ipratropium inhaler, Keppra, Tylenol. Gets the dose of cefepime in the ER. ALLERGIES: No known drug allergies. SOCIAL HISTORY: [facility] resident with poor mental functional status. No history of alcohol, drug abuse, or smoking. PHYSICAL EXAMINATION: VITAL SIGNS: Temperature 96, pulse 79, and blood pressure 105/71. HEAD AND NECK: [place] conjunctivae. HEART: Regular. LUNGS: Clear. ABDOMEN: Soft, obese. G-tube in place. EXTREMITIES: Has no edema. LABORATORY AND DIAGNOSTIC DATA: WBC 6.8, hemoglobin 13.9, hematocrit 45.4, and platelet is 205. Sodium 142, potassium 4.2, chloride 104, bicarbonate 24, BUN 23, creatinine 1, and glucose 116. Lactic acid level is 6.5 coming down to 1.5. Chest x-ray showed poor expansion, likely was expiratory view. IMPRESSION: Lactic acidosis, tachycardia at the time of admission with hypoxemia, and shortness of breath and wheezing. We will try to rule out sepsis. We will try to rule out urinary tract infection. The patient has seizure disorder, diabetes mellitus, and hypertension. RECOMMENDATION: We will follow up the UA, urine culture, and blood culture. We will start antibiotic if the patient develops fever and leukocytosis. At the end of my exam, I thank, Dr. Martínez, for involving me in the care of this patient. Sanjay Thomas M.D. DR: Rayray JOB#: [id number] CC:
[2017-07-17] VITALS: BP 104/65
[2017-07-17 04:00] VITALS: BP 91/60
--- NOTE | 2017-07-17 05:00 | History and Physical Report ---
DATE OF ADMISSION: 07/16/[address] Donaldo Johnson's patient. I am covering Dr. Donaldo Johnson. HISTORY OF PRESENT ILLNESS: The patient is admitted for aspiration pneumonia, diabetes mellitus, has increased difficulty breathing, has a history of seizures, and is G-tube dependent. The patient was initially tachypneic, rule out aspiration pneumonia. The patient also had hypoxia. The patient is a poor historian, but does complain of shortness of breath and cough. PAST MEDICAL HISTORY: Right-sided paraparesis, failure to thrive, history of proteinemia, history of CVA, sepsis, dysphagia, hypertension, hyperlipidemia, history of C. difficile, seizures, history of dermatitis, history of decubitus ulcer, history of BPH, NIDDM as well as GERD, constipation, and mood disorder. PAST SURGICAL HISTORY: G-tube. MEDICATIONS: Tylenol, famotidine, finasteride, heparin, insulin, Keppra, lorazepam, metoprolol, polyethylene glycol, Depakote. ALLERGIES: No known allergies. SOCIAL HISTORY: Denies smoking. FAMILY HISTORY: Unable to obtain. REVIEW OF SYSTEMS: He is a poor historian. PHYSICAL EXAMINATION: VITAL SIGNS: Temperature is 99 degrees, pulse is 100, blood pressure /75. HEENT: PERRLA. NECK: Supple. No lymphadenopathy. CHEST: Clear to auscultation. GASTROINTESTINAL: With G-tube. Abdomen is soft. Positive bowel sounds. CARDIOVASCULAR: Regular rate and rhythm. NEUROLOGIC: Reflexes on both sides. He has generalized weakness. LABORATORY AND DIAGNOSTIC DATA: WBC of 6.8, hemoglobin 13.9, and platelets 205. Sodium 140, potassium 4.2, glucose of 116, BUN of 23, and creatinine 1. ASSESSMENT AND PLAN: Rule out aspiration pneumonia tachypnea, hypoxia, and azotemia. I have asked Dr. Lake as well as Dr. Light to see the patient as well as Dr. Thomas for the treatment of the G-tube site as well as for the treatment of aspiration pneumonia as well as congestive heart failure treatment. Amy Martínez M.D. DR: MARQUIS JOB#: [id number] CC:
[2017-07-17] MEDS: Solu-MEDROL 40mg Inj IVP SCH ×3 (05:02→23:06)
[2017-07-17 07:01] LABS: BASOPHILS % (AUTO) 0.4 % (0.0-2.0); LYMPHOCYTES % (AUTO) 15.1 % (20.0-45.0); MEAN CORPUSCULAR HEMOGLOBIN 22.4 PG (27.0-31.0); MEAN CORPUSCULAR HGB CONC 30.6 G/DL (32.0-36.0); MEAN CORPUSCULAR VOLUME 73 FL (80-99); MEAN PLATELET VOLUME 11.5 FL (6.5-10.1); MONOCYTES % (AUTO) 2.7 % (1.0-10.0); NEUTROPHILS % (AUTO) 81.9 % (45.0-75.0); PLATELET COUNT 202 K/UL (150-450); RED BLOOD COUNT 6.41 M/UL (4.70-6.10); RED CELL DISTRIBUTION WIDTH 14.5 % (11.6-14.8); WHITE BLOOD COUNT 6.9 K/UL (4.8-10.8)
[2017-07-17 07:28] LABS: ALANINE AMINOTRANSFERASE 15 U/L (12-78); ALBUMIN/GLOBULIN RATIO 0.7 (1.0-2.7); ANION GAP 9 mmol/L (5-15); ASPARTATE AMINO TRANSFERASE 14 U/L (15-37); CARBON DIOXIDE 24 MMOL/L (21-32); CHLORIDE 107 MMOL/L (98-107); CREATININE 0.8 MG/DL (0.55-1.30); GLOMERULAR FILTRATION RATE > 60 mL/min (>60); POTASSIUM 4.5 MMOL/L (3.5-5.1); SODIUM 140 MMOL/L (136-145); TOTAL PROTEIN 8.4 G/DL (6.4-8.2)
[2017-07-17 07:35] LABS: IRON 60 ug/dL (50-175); TOTAL IRON BINDING CAPACITY 290 ug/dL (250-450)
[2017-07-17 08:34] VITALS: BP 124/73
[2017-07-17] MEDS: Docusate 100mg/10ml Liq GT SCH ×2 (09:33→18:42)
[2017-07-17] MEDS: Valproic Acid 250mg/5ml Liquid GT SCH ×2 (09:33→23:03)
[2017-07-17] MEDS: Lacosamide 100 MG TABLET ORAL SCH ×2 (09:35→23:04)
[2017-07-17] MEDS: levETIRAcetam 500mg/5ml Liquid GT SCH ×2 (09:36→23:03)
[2017-07-17] MEDS: D5NS 1,000 ML IV SCH (09:37)
--- NOTE | 2017-07-17 11:08 | Infectious Diseases Prog Note ---
Assessment/Plan Assessment/Plan A; SIRS COPD Dementia Seizure disorder Pyuria, UC negative P: Observe off antibiotic Subjective ROS Limited/Unobtainable: Yes Allergies: Coded Allergies: NO KNOWN DRUG ALLERGIES (Unverified Allergy, Unknown, 08/22/15) Objective Vital Signs Last 24 Hour Vital Signs Date Time Temp Pulse Resp B/P (MAP) Pulse Ox O2 Delivery O2 Flow Rate FiO2 07/17/17 10:05 113 20 Room Air 21 07/17/17 08:34 97.4 101 21 124/73 97 07/17/17 04:00 97.3 73 21 91/60 98 07/17/17 04:00 Nasal Cannula 2.0 07/17/17 00:00 97.2 68 20 104/65 Nasal Cannula 07/17/17 00:00 Nasal Cannula 2.0 07/16/17 21:00 97.7 73 18 132/54 Nasal Cannula 07/16/17 20:00 Nasal Cannula 2.0 07/16/17 16:00 97.1 97 20 127/71 99 07/16/17 11:30 2.0 Height (Feet): 5 Height (Inches): 10.00 Weight (Pounds): 205 General Appearance: no acute distress HEENT: mucous membranes moist Respiratory/Chest: lungs clear Cardiovascular: normal rate Abdomen: soft, non tender, other - Gt feeding Extremities: no edema Neurologic/Psychiatric: alert, aphasia Microbiology Date/Time Source Procedure Growth Status 07/16/17 03:23 Blood Blood Culture - Preliminary NO GROWTH AFTER 24 HOURS Resulted 07/16/17 03:02 Blood Blood Culture - Preliminary NO GROWTH AFTER 24 HOURS Resulted 07/16/17 18:55 Nasal Nares Influenza Types A,B Antigen (YAZ) - Final Complete 07/16/17 15:00 Straight Cath Urine Culture - Preliminary NO GROWTH Resulted Laboratory Tests Test 07/16/17 15:00 07/17/17 05:10 Urine Color Pale yellow Urine Appearance Clear Urine pH 7 (4.5-8.0) Urine Specific [place] 1.010 (1.005-1.035) Urine Protein Negative (NEGATIVE) Urine Glucose (UA) Negative (NEGATIVE) Urine Ketones Negative (NEGATIVE) Urine Occult Blood 1+ (NEGATIVE) H Urine Nitrite Negative (NEGATIVE) Urine Bilirubin Negative (NEGATIVE) Urine Urobilinogen Normal MG/DL (0.0-1.0) Urine Leukocyte Esterase 1+ (NEGATIVE) H Urine RBC 5-10 /HPF (0 - 0) H Urine WBC 15-20 /HPF (0 - 0) H Urine Squamous Epithelial Cells None /LPF (NONE/OCC) Urine Bacteria Occasional /HPF (NONE) White Blood Count 6.9 K/UL (4.8-10.8) Red Blood Count 6.41 M/UL (4.70-6.10) H Hemoglobin 14.4 G/DL (14.2-18.0) Hematocrit 47.0 % (42.0-52.0) Mean Corpuscular Volume 73 FL (80-99) L Mean Corpuscular Hemoglobin 22.4 PG (27.0-31.0) L Mean Corpuscular Hemoglobin Concent 30.6 G/DL (32.0-36.0) L Red Cell Distribution Width 14.5 % (11.6-14.8) Platelet Count 202 K/UL (150-450) Mean Platelet Volume 11.5 FL (6.5-10.1) H Neutrophils (%) (Auto) 81.9 % (45.0-75.0) H Lymphocytes (%) (Auto) 15.1 % (20.0-45.0) L Monocytes (%) (Auto) 2.7 % (1.0-10.0) Eosinophils (%) (Auto) 0.0 % (0.0-3.0) Basophils (%) (Auto) 0.4 % (0.0-2.0) Sodium Level 140 MMOL/L (136-145) Potassium Level 4.5 MMOL/L (3.5-5.1) Chloride Level 107 MMOL/L (98-107) Carbon Dioxide Level 24 MMOL/L (21-32) Anion Gap 9 mmol/L (5-15) Blood Urea Nitrogen 21 mg/dL (7-18) H Creatinine 0.8 MG/DL (0.55-1.30) Estimat Glomerular Filtration Rate > 60 mL/min (>60) Glucose Level 148 MG/DL (74-106) H Calcium Level 9.0 MG/DL (8.5-10.1) Iron Level 60 ug/dL (50-175) Total Iron Binding Capacity 290 ug/dL (250-450) Percent Iron Saturation 21 % (15-50) Unsaturated Iron Binding 230 ug/dL (112-346) Total Bilirubin 0.5 MG/DL (0.2-1.0) Aspartate Amino Transf (AST/SGOT) 14 U/L (15-37) L Alanine Aminotransferase (ALT/SGPT) 15 U/L (12-78) Alkaline Phosphatase 84 U/L (46-116) Total Protein 8.4 G/DL (6.4-8.2) H Albumin 3.4 G/DL (3.4-5.0) Globulin 5.0 g/dL Albumin/Globulin Ratio 0.7 (1.0-2.7) L Current Medications Medications (Trade) Dose Ordered Sig/Monalisa Route PRN Reason Start Time Stop Time Status Last Admin Dose Admin Acetaminophen (Tylenol) 650 mg Q4HR PRN GT Fever/Headache/Mild Pain 07/16/17 10:45 08/15/17 10:44 Albuterol/ Ipratropium (Albuterol/ Ipratropium) 3 ml Q4H PRN INH Shortness of Breath 07/16/17 11:00 07/21/17 10:59 Bisacodyl (Dulcolax) 10 mg DAILYPRN PRN RECTAL Constipation 07/16/17 13:00 08/15/17 12:59 Dextrose/Sodium Chloride 1,000 ml @ 50 mls/hr Q20H IV 07/16/17 12:30 08/15/17 12:29 07/17/17 09:37 Docusate Sodium (Colace) 100 mg TWICE A DAY GT 07/16/17 18:00 08/15/17 17:59 07/17/17 09:33 Finasteride (Proscar) 5 mg DAILY ORAL 07/17/17 09:00 08/16/17 08:59 07/17/17 09:35 Lacosamide (Vimpat) 100 mg Q12HR ORAL 07/16/17 12:00 08/15/17 11:59 07/17/17 09:35 Levetiracetam (Keppra) 2,000 mg Q12HR GT 07/16/17 13:00 08/15/17 12:59 07/17/17 09:36 Lorazepam (Ativan) 2 mg Q6H PRN GT Agitation 07/16/17 12:15 07/23/17 12:14 Methylprednisolone Sodium Succinate (Solu-MEDROL) 40 mg EVERY 8 HOURS IVP 07/16/17 14:00 08/15/17 13:59 07/17/17 05:02 Ondansetron HCl (Zofran) 4 mg Q6H PRN GT Nausea & Vomiting 07/16/17 11:45 08/15/17 11:44 Ranitidine HCl (Zantac) 150 mg Q12HR GT 07/16/17 21:00 08/15/17 20:59 07/17/17 09:35 Valproic Acid (Depakene) 750 mg EVERY 12 HOURS GT 07/16/17 21:00 08/15/17 20:59 07/17/17 09:33 TANMAY COSBY Jul 17, 2017 11:08
--- NOTE | 2017-07-17 11:25 | GI Progress Note ---
Assessment/Plan Problems: (1) Feeding by G-tube ICD Codes: Z93.1 - Feeding by G-tube SNOMED: 305035102 (2) Malfunction of percutaneous endoscopic gastrostomy (PEG) tube ICD Codes: K94.23 - Gastrostomy malfunction SNOMED: 821372234 (3) Attention to G-tube ICD Codes: Z43.1 - Encounter for attention to gastrostomy SNOMED: 487279565, 102247198 (4) Dehydration ICD Codes: E86.0 - Dehydration SNOMED: 86518856 Status: unchanged Status Narrative Discussed with Dr. Light. Assessment/Plan symptomatic treatment at this time GTFs per dietary GT site care daily/prn monitor H&H, prn transfusion H2B fu labs Subjective Subjective limited Objective Last 24 Hour Vital Signs Date Time Temp Pulse Resp B/P (MAP) Pulse Ox O2 Delivery O2 Flow Rate FiO2 07/17/17 10:05 113 20 Room Air 21 07/17/17 08:34 97.4 101 21 124/73 97 07/17/17 04:00 97.3 73 21 91/60 98 07/17/17 04:00 Nasal Cannula 2.0 07/17/17 00:00 97.2 68 20 104/65 Nasal Cannula 07/17/17 00:00 Nasal Cannula 2.0 07/16/17 21:00 97.7 73 18 132/54 Nasal Cannula 07/16/17 20:00 Nasal Cannula 2.0 07/16/17 16:00 97.1 97 20 127/71 99 07/16/17 11:30 2.0 Laboratory Tests Test 07/16/17 15:00 07/17/17 05:10 Urine Color Pale yellow Urine Appearance Clear Urine pH 7 (4.5-8.0) Urine Specific [place] 1.010 (1.005-1.035) Urine Protein Negative (NEGATIVE) Urine Glucose (UA) Negative (NEGATIVE) Urine Ketones Negative (NEGATIVE) Urine Occult Blood 1+ (NEGATIVE) H Urine Nitrite Negative (NEGATIVE) Urine Bilirubin Negative (NEGATIVE) Urine Urobilinogen Normal MG/DL (0.0-1.0) Urine Leukocyte Esterase 1+ (NEGATIVE) H Urine RBC 5-10 /HPF (0 - 0) H Urine WBC 15-20 /HPF (0 - 0) H Urine Squamous Epithelial Cells None /LPF (NONE/OCC) Urine Bacteria Occasional /HPF (NONE) White Blood Count 6.9 K/UL (4.8-10.8) Red Blood Count 6.41 M/UL (4.70-6.10) H Hemoglobin 14.4 G/DL (14.2-18.0) Hematocrit 47.0 % (42.0-52.0) Mean Corpuscular Volume 73 FL (80-99) L Mean Corpuscular Hemoglobin 22.4 PG (27.0-31.0) L Mean Corpuscular Hemoglobin Concent 30.6 G/DL (32.0-36.0) L Red Cell Distribution Width 14.5 % (11.6-14.8) Platelet Count 202 K/UL (150-450) Mean Platelet Volume 11.5 FL (6.5-10.1) H Neutrophils (%) (Auto) 81.9 % (45.0-75.0) H Lymphocytes (%) (Auto) 15.1 % (20.0-45.0) L Monocytes (%) (Auto) 2.7 % (1.0-10.0) Eosinophils (%) (Auto) 0.0 % (0.0-3.0) Basophils (%) (Auto) 0.4 % (0.0-2.0) Sodium Level 140 MMOL/L (136-145) Potassium Level 4.5 MMOL/L (3.5-5.1) Chloride Level 107 MMOL/L (98-107) Carbon Dioxide Level 24 MMOL/L (21-32) Anion Gap 9 mmol/L (5-15) Blood Urea Nitrogen 21 mg/dL (7-18) H Creatinine 0.8 MG/DL (0.55-1.30) Estimat Glomerular Filtration Rate > 60 mL/min (>60) Glucose Level 148 MG/DL (74-106) H Calcium Level 9.0 MG/DL (8.5-10.1) Iron Level 60 ug/dL (50-175) Total Iron Binding Capacity 290 ug/dL (250-450) Percent Iron Saturation 21 % (15-50) Unsaturated Iron Binding 230 ug/dL (112-346) Total Bilirubin 0.5 MG/DL (0.2-1.0) Aspartate Amino Transf (AST/SGOT) 14 U/L (15-37) L Alanine Aminotransferase (ALT/SGPT) 15 U/L (12-78) Alkaline Phosphatase 84 U/L (46-116) Total Protein 8.4 G/DL (6.4-8.2) H Albumin 3.4 G/DL (3.4-5.0) Globulin 5.0 g/dL Albumin/Globulin Ratio 0.7 (1.0-2.7) L Microbiology Date/Time Source Procedure Growth Status 07/16/17 18:55 Nasal Nares Influenza Types A,B Antigen (YAZ) - Final Complete 07/16/17 15:00 Straight Cath Urine Culture - Preliminary NO GROWTH Resulted Height (Feet): 5 Height (Inches): 10.00 Weight (Pounds): 205 General Appearance: WD/WN, no apparent distress, alert Cardiovascular: normal rate Respiratory/Chest: normal breath sounds, no respiratory distress Abdominal Exam: normal bowel sounds, non tender, soft, GT site - c/d/i Extremities: non-tender Chery Mcfarland N.P. Jul 17, 2017 11:25
[2017-07-17 11:33] VITALS: BP 125/75
[2017-07-17] MEDS ORDERED: D5NS 1000ml IV ONE (14:40)
[2017-07-17] MEDS ORDERED: Sterile Water Irrig 1000ml IRRIG ONE (14:40)
[2017-07-17 15:59] VITALS: BP 106/72
--- NOTE | 2017-07-17 17:17 | Pulmonology Progress Note ---
Assessment/Plan Assessment/Plan 1. Chronic obstructive pulmonary disease exacerbation. 2. Dementia. 3. Cerebral palsy. 4. Parkinson disease. 5. Dysphagia with gastric tube. 6. Seizure disorder. pulm status better taper steroids cont HHN will follow Subjective ROS Limited/Unobtainable: Yes Allergies: Coded Allergies: NO KNOWN DRUG ALLERGIES (Unverified Allergy, Unknown, 08/22/15) Objective Last 24 Hour Vital Signs Date Time Temp Pulse Resp B/P (MAP) Pulse Ox O2 Delivery O2 Flow Rate FiO2 07/17/17 15:59 97.7 92 20 106/72 97 07/17/17 11:33 97.5 104 20 125/75 96 07/17/17 10:05 113 20 Room Air 21 07/17/17 08:34 97.4 101 21 124/73 97 07/17/17 04:00 97.3 73 21 91/60 98 07/17/17 04:00 Nasal Cannula 2.0 07/17/17 00:00 97.2 68 20 104/65 Nasal Cannula 07/17/17 00:00 Nasal Cannula 2.0 07/16/17 21:00 97.7 73 18 132/54 Nasal Cannula 07/16/17 20:00 Nasal Cannula 2.0 Intake and Output 07/16/17 07/17/17 19:00 07:00 Intake Total 2065 ml 1105 ml Balance 2065 ml 1105 ml Free Water 1800 ml 260 ml IV Total 250 ml 600 ml Tube Feeding 15 ml 245 ml # Voids 3 3 General Appearance: no acute distress Respiratory/Chest: expiratory wheezing Cardiovascular: normal rate Microbiology Date/Time Source Procedure Growth Status 07/16/17 03:23 Blood Blood Culture - Preliminary NO GROWTH AFTER 24 HOURS Resulted 07/16/17 03:02 Blood Blood Culture - Preliminary NO GROWTH AFTER 24 HOURS Resulted 07/16/17 18:55 Nasal Nares Influenza Types A,B Antigen (YAZ) - Final Complete 07/16/17 15:00 Straight Cath Urine Culture - Preliminary NO GROWTH Resulted Laboratory Tests 07/17/17 05:10: White Blood Count 6.9, Red Blood Count 6.41H, Hemoglobin 14.4, Hematocrit 47.0, Mean Corpuscular Volume 73L, Mean Corpuscular Hemoglobin 22.4L, Mean Corpuscular Hemoglobin Concent 30.6L, Red Cell Distribution Width 14.5, Platelet Count 202, Mean Platelet Volume 11.5H, Neutrophils (%) (Auto) 81.9H, Lymphocytes (%) (Auto) 15.1L, Monocytes (%) (Auto) 2.7, Eosinophils (%) (Auto) 0.0, Basophils (%) (Auto) 0.4, Sodium Level 140, Potassium Level 4.5, Chloride Level 107, Carbon Dioxide Level 24, Anion Gap 9, Blood Urea Nitrogen 21H, Creatinine 0.8, Estimat Glomerular Filtration Rate > 60, Glucose Level 148H, Calcium Level 9.0, Iron Level 60, Total Iron Binding Capacity 290, Percent Iron Saturation 21, Unsaturated Iron Binding 230, Total Bilirubin 0.5, Aspartate Amino Transf (AST/SGOT) 14L, Alanine Aminotransferase (ALT/SGPT) 15, Alkaline Phosphatase 84, Total Protein 8.4H, Albumin 3.4, Globulin 5.0, Albumin/Globulin Ratio 0.7L Current Medications Medications (Trade) Dose Ordered Sig/Monalisa Route PRN Reason Start Time Stop Time Status Last Admin Dose Admin Acetaminophen (Tylenol) 650 mg Q4HR PRN GT Fever/Headache/Mild Pain 07/16/17 10:45 08/15/17 10:44 Albuterol/ Ipratropium (Albuterol/ Ipratropium) 3 ml Q4H PRN INH Shortness of Breath 07/16/17 11:00 07/21/17 10:59 Bisacodyl (Dulcolax) 10 mg DAILYPRN PRN RECTAL Constipation 07/16/17 13:00 08/15/17 12:59 Dextrose/Sodium Chloride 1,000 ml @ 50 mls/hr Q20H IV 07/16/17 12:30 08/15/17 12:29 07/17/17 09:37 Docusate Sodium (Colace) 100 mg TWICE A DAY GT 07/16/17 18:00 08/15/17 17:59 07/17/17 09:33 Finasteride (Proscar) 5 mg DAILY ORAL 07/17/17 09:00 08/16/17 08:59 07/17/17 09:35 Lacosamide (Vimpat) 100 mg Q12HR ORAL 07/16/17 12:00 08/15/17 11:59 07/17/17 09:35 Levetiracetam (Keppra) 2,000 mg Q12HR GT 07/16/17 13:00 08/15/17 12:59 07/17/17 09:36 Lorazepam (Ativan) 2 mg Q6H PRN GT Agitation 07/16/17 12:15 07/23/17 12:14 Methylprednisolone Sodium Succinate (Solu-MEDROL) 40 mg EVERY 8 HOURS IVP 07/16/17 14:00 08/15/17 13:59 07/17/17 15:27 Ondansetron HCl (Zofran) 4 mg Q6H PRN GT Nausea & Vomiting 07/16/17 11:45 08/15/17 11:44 Ranitidine HCl (Zantac) 150 mg Q12HR GT 07/16/17 21:00 08/15/17 20:59 07/17/17 09:35 Risperidone (RisperDAL) 1 mg BEDTIME ORAL 07/17/17 21:00 08/16/17 20:59 Valproic Acid (Depakene) 750 mg EVERY 12 HOURS GT 07/16/17 21:00 08/15/17 20:59 07/17/17 09:33 KAVON CARROLL Jul 17, 2017 17:17
[2017-07-17 20:00] VITALS: BP 92/64
--- NOTE | 2017-07-17 20:34 | General Progress Note ---
Assessment/Plan Problem List: (1) Noncompliance with medication regimen ICD Codes: Z91.14 - Patient's other noncompliance with medication regimen SNOMED: 543971016 (2) Lactic acidosis ICD Codes: E87.2 - Acidosis SNOMED: 55122224 (3) Hyperglycemia ICD Codes: R73.9 - Hyperglycemia, unspecified SNOMED: 78572562 (4) Paraparesis of both lower limbs ICD Codes: G82.20 - Paraparesis of both lower limbs SNOMED: 7992799 (5) Respiratory failure ICD Codes: J96.90 - Respiratory failure SNOMED: 272869663 (6) Pneumonia ICD Codes: J18.9 - Pneumonia, unspecified organism SNOMED: 281273141 Status: progressing Assessment/Plan resp insuff pna afebrile pna improving abx per id afebrile Subjective ROS Limited/Unobtainable: Yes Constitutional: Reports: no symptoms Allergies: Coded Allergies: NO KNOWN DRUG ALLERGIES (Unverified Allergy, Unknown, 08/22/15) Objective Last 24 Hour Vital Signs Date Time Temp Pulse Resp B/P (MAP) Pulse Ox O2 Delivery O2 Flow Rate FiO2 07/17/17 20:10 83 18 Nasal Cannula 2.0 28 07/17/17 20:10 Nasal Cannula 2.0 28 07/17/17 20:10 98 Nasal Cannula 2.0 28 07/17/17 20:00 81 20 92/64 98 Room Air 07/17/17 15:59 97.7 92 20 106/72 97 07/17/17 11:33 97.5 104 20 125/75 96 07/17/17 10:05 113 20 Room Air 21 07/17/17 08:34 97.4 101 21 124/73 97 07/17/17 04:00 97.3 73 21 91/60 98 07/17/17 04:00 Nasal Cannula 2.0 07/17/17 00:00 97.2 68 20 104/65 Nasal Cannula 07/17/17 00:00 Nasal Cannula 2.0 07/16/17 21:00 97.7 73 18 132/54 Nasal Cannula Intake and Output 07/16/17 07/17/17 19:00 07:00 Intake Total 2065 ml 1140 ml Balance 2065 ml 1140 ml Free Water 1800 ml 260 ml IV Total 250 ml 600 ml Tube Feeding 15 ml 280 ml # Voids 3 3 Laboratory Tests 07/17/17 05:10: White Blood Count 6.9, Red Blood Count 6.41H, Hemoglobin 14.4, Hematocrit 47.0, Mean Corpuscular Volume 73L, Mean Corpuscular Hemoglobin 22.4L, Mean Corpuscular Hemoglobin Concent 30.6L, Red Cell Distribution Width 14.5, Platelet Count 202, Mean Platelet Volume 11.5H, Neutrophils (%) (Auto) 81.9H, Lymphocytes (%) (Auto) 15.1L, Monocytes (%) (Auto) 2.7, Eosinophils (%) (Auto) 0.0, Basophils (%) (Auto) 0.4, Sodium Level 140, Potassium Level 4.5, Chloride Level 107, Carbon Dioxide Level 24, Anion Gap 9, Blood Urea Nitrogen 21H, Creatinine 0.8, Estimat Glomerular Filtration Rate > 60, Glucose Level 148H, Calcium Level 9.0, Iron Level 60, Total Iron Binding Capacity 290, Percent Iron Saturation 21, Unsaturated Iron Binding 230, Total Bilirubin 0.5, Aspartate Amino Transf (AST/SGOT) 14L, Alanine Aminotransferase (ALT/SGPT) 15, Alkaline Phosphatase 84, Total Protein 8.4H, Albumin 3.4, Globulin 5.0, Albumin/Globulin Ratio 0.7L 07/17/17 17:00: Stool Occult Blood [Pending] Height (Feet): 5 Height (Inches): 10.00 Weight (Pounds): 205 Cardiovascular: normal rate Amy Martínez MD Jul 17, 2017 20:34
--- NOTE | 2017-07-17 22:45 | Progress Note ---
DATE: 07/17/2017 SUBJECTIVE: The patient is calm and cooperative. No behavior issues. The patient is nonverbal and is not engaged during evaluation, mostly due to cognitive impairment and psychotic symptoms. MENTAL STATUS EXAMINATION: The patient is alert, oriented, nonverbal. Mood is neutral. Affect is flat. Thought process, there is paucity of thought content. Thought content, no suicidal or homicidal ideation. Cognition is impaired. ASSESSMENT: 1. Schizophrenia. 2. Catatonia. 3. Cognitive impairment. PLAN: 1. We will continue the risperidone 1 mg at bedtime and Depakote 750 mg b.i.d. 2. We will continue to follow and readjust the medications. Kathleen Euceda M.D. DR: Bacilio JOB#: [id number] CC:
[2017-07-18] VITALS: BP 99/80
[2017-07-18 03:34] VITALS: BP 93/58
[2017-07-18] MEDS: D5NS 1,000 ML IV SCH (05:42)
[2017-07-18] MEDS: Solu-MEDROL 40mg Inj IVP SCH ×2 (05:51→13:41)
[2017-07-18 07:10] LABS: BASOPHILS % (AUTO) 0.2 % (0.0-2.0); LYMPHOCYTES % (AUTO) 12.4 % (20.0-45.0); MEAN CORPUSCULAR HEMOGLOBIN 22.7 PG (27.0-31.0); MEAN CORPUSCULAR HGB CONC 30.9 G/DL (32.0-36.0); MEAN CORPUSCULAR VOLUME 73 FL (80-99); MEAN PLATELET VOLUME 11.5 FL (6.5-10.1); MONOCYTES % (AUTO) 5.5 % (1.0-10.0); NEUTROPHILS % (AUTO) 81.9 % (45.0-75.0); PLATELET COUNT 216 K/UL (150-450); RED BLOOD COUNT 5.69 M/UL (4.70-6.10); RED CELL DISTRIBUTION WIDTH 14.4 % (11.6-14.8); WHITE BLOOD COUNT 11.7 K/UL (4.8-10.8)
[2017-07-18 08:00] VITALS: BP 118/57
[2017-07-18 08:05] LABS: ALANINE AMINOTRANSFERASE 14 U/L (12-78); ALBUMIN/GLOBULIN RATIO 0.7 (1.0-2.7); ANION GAP 10 mmol/L (5-15); ASPARTATE AMINO TRANSFERASE 27 U/L (15-37); CALCIUM 8.6 MG/DL (8.5-10.1); CARBON DIOXIDE 23 MMOL/L (21-32); CHLORIDE 109 MMOL/L (98-107); CREATININE 0.8 MG/DL (0.55-1.30); GLOMERULAR FILTRATION RATE > 60 mL/min (>60); POTASSIUM 5.3 MMOL/L (3.5-5.1); SODIUM 142 MMOL/L (136-145); TOTAL PROTEIN 7.3 G/DL (6.4-8.2)
[2017-07-18] MEDS: Lacosamide 100 MG TABLET ORAL SCH ×2 (08:33→21:32)
[2017-07-18] MEDS: Valproic Acid 250mg/5ml Liquid GT SCH ×2 (08:34→21:31)
[2017-07-18] MEDS: Docusate 100mg/10ml Liq GT SCH ×2 (08:34→17:53)
[2017-07-18] MEDS: levETIRAcetam 500mg/5ml Liquid GT SCH ×2 (08:35→21:32)
--- NOTE | 2017-07-18 10:59 | Infectious Diseases Prog Note ---
Assessment/Plan Assessment/Plan A; SIRS COPD Dementia Seizure disorder Pyuria, UC negative P: Observe off antibiotic Subjective ROS Limited/Unobtainable: Yes Allergies: Coded Allergies: NO KNOWN DRUG ALLERGIES (Unverified Allergy, Unknown, 08/22/15) Objective Vital Signs Last 24 Hour Vital Signs Date Time Temp Pulse Resp B/P (MAP) Pulse Ox O2 Delivery O2 Flow Rate FiO2 07/18/17 08:32 80 18 Nasal Cannula 2.0 28 07/18/17 08:32 Nasal Cannula 2.0 28 07/18/17 08:32 98 Nasal Cannula 2.0 28 07/18/17 08:00 97.5 83 20 118/57 98 07/18/17 04:32 96 Room Air 07/18/17 03:34 96.8 82 20 93/58 96 Room Air 07/18/17 00:00 97 Room Air 07/18/17 00:00 96.6 105 20 99/80 97 Room Air 07/17/17 20:10 83 18 Nasal Cannula 2.0 28 07/17/17 20:10 Nasal Cannula 2.0 28 07/17/17 20:10 98 Nasal Cannula 2.0 28 07/17/17 20:00 98 Room Air 07/17/17 20:00 81 20 92/64 98 Room Air 07/17/17 15:59 97.7 92 20 106/72 97 07/17/17 11:33 97.5 104 20 125/75 96 Height (Feet): 5 Height (Inches): 10.00 Weight (Pounds): 205 General Appearance: no acute distress HEENT: mucous membranes moist Respiratory/Chest: lungs clear Cardiovascular: normal rate Abdomen: soft, non tender, other - GT feeding Neurologic/Psychiatric: other - sleeping Microbiology Date/Time Source Procedure Growth Status 07/16/17 03:23 Blood Blood Culture - Preliminary NO GROWTH AFTER 48 HOURS Resulted 07/16/17 03:02 Blood Blood Culture - Preliminary NO GROWTH AFTER 48 HOURS Resulted 07/16/17 18:55 Nasal Nares Influenza Types A,B Antigen (YAZ) - Final Complete 07/16/17 15:00 Straight Cath Urine Culture - Preliminary NO GROWTH AFTER 24 HOURS Resulted Laboratory Tests Test 07/17/17 17:00 07/18/17 04:35 Stool Occult Blood Pending White Blood Count 11.7 K/UL (4.8-10.8) #H Red Blood Count 5.69 M/UL (4.70-6.10) Hemoglobin 12.9 G/DL (14.2-18.0) L Hematocrit 41.8 % (42.0-52.0) L Mean Corpuscular Volume 73 FL (80-99) L Mean Corpuscular Hemoglobin 22.7 PG (27.0-31.0) L Mean Corpuscular Hemoglobin Concent 30.9 G/DL (32.0-36.0) L Red Cell Distribution Width 14.4 % (11.6-14.8) Platelet Count 216 K/UL (150-450) Mean Platelet Volume 11.5 FL (6.5-10.1) H Neutrophils (%) (Auto) 81.9 % (45.0-75.0) H Lymphocytes (%) (Auto) 12.4 % (20.0-45.0) L Monocytes (%) (Auto) 5.5 % (1.0-10.0) Eosinophils (%) (Auto) 0.0 % (0.0-3.0) Basophils (%) (Auto) 0.2 % (0.0-2.0) Sodium Level 142 MMOL/L (136-145) Potassium Level 5.3 MMOL/L (3.5-5.1) H Chloride Level 109 MMOL/L (98-107) H Carbon Dioxide Level 23 MMOL/L (21-32) Anion Gap 10 mmol/L (5-15) Blood Urea Nitrogen 25 mg/dL (7-18) H Creatinine 0.8 MG/DL (0.55-1.30) Estimat Glomerular Filtration Rate > 60 mL/min (>60) Glucose Level 145 MG/DL (74-106) H Calcium Level 8.6 MG/DL (8.5-10.1) Total Bilirubin 0.3 MG/DL (0.2-1.0) Aspartate Amino Transf (AST/SGOT) 27 U/L (15-37) Alanine Aminotransferase (ALT/SGPT) 14 U/L (12-78) Alkaline Phosphatase 75 U/L (46-116) Total Protein 7.3 G/DL (6.4-8.2) Albumin 3.0 G/DL (3.4-5.0) L Globulin 4.3 g/dL Albumin/Globulin Ratio 0.7 (1.0-2.7) L Current Medications Medications (Trade) Dose Ordered Sig/Monalisa Route PRN Reason Start Time Stop Time Status Last Admin Dose Admin Acetaminophen (Tylenol) 650 mg Q4HR PRN GT Fever/Headache/Mild Pain 07/16/17 10:45 08/15/17 10:44 Albuterol/ Ipratropium (Albuterol/ Ipratropium) 3 ml Q4H PRN INH Shortness of Breath 07/16/17 11:00 07/21/17 10:59 Bisacodyl (Dulcolax) 10 mg DAILYPRN PRN RECTAL Constipation 07/16/17 13:00 08/15/17 12:59 Dextrose/Sodium Chloride 1,000 ml @ 50 mls/hr Q20H IV 07/16/17 12:30 08/15/17 12:29 07/18/17 05:42 Docusate Sodium (Colace) 100 mg TWICE A DAY GT 07/16/17 18:00 08/15/17 17:59 07/18/17 08:34 Finasteride (Proscar) 5 mg DAILY ORAL 07/17/17 09:00 08/16/17 08:59 07/18/17 08:33 Lacosamide (Vimpat) 100 mg Q12HR ORAL 07/16/17 12:00 08/15/17 11:59 07/18/17 08:33 Levetiracetam (Keppra) 2,000 mg Q12HR GT 07/16/17 13:00 08/15/17 12:59 07/18/17 08:35 Lorazepam (Ativan) 2 mg Q6H PRN GT Agitation 07/16/17 12:15 07/23/17 12:14 Methylprednisolone Sodium Succinate (Solu-MEDROL) 20 mg EVERY 8 HOURS IVP 07/17/17 22:00 08/16/17 21:59 07/18/17 05:51 Ondansetron HCl (Zofran) 4 mg Q6H PRN GT Nausea & Vomiting 07/16/17 11:45 08/15/17 11:44 Ranitidine HCl (Zantac) 150 mg Q12HR GT 07/16/17 21:00 08/15/17 20:59 07/18/17 08:34 Risperidone (RisperDAL) 1 mg BEDTIME ORAL 07/17/17 21:00 08/16/17 20:59 07/17/17 23:04 Sodium Polystyrene Sulfonate (Kayexalate) 30 gm ONCE ONCE ORAL 07/18/17 11:00 07/18/17 11:01 Valproic Acid (Depakene) 750 mg EVERY 12 HOURS GT 07/16/17 21:00 08/15/17 20:59 07/18/17 08:34 TANMAY COSBY Jul 18, 2017 10:59
[2017-07-18] MEDS: Sodium Polystyrene Sulfonate 15gm Powder ORAL ONE ×2 (11:00→11:19)
--- NOTE | 2017-07-18 11:46 | GI Progress Note ---
Assessment/Plan Problems: (1) Feeding by G-tube ICD Codes: Z93.1 - Feeding by G-tube SNOMED: 284532295 (2) Malfunction of percutaneous endoscopic gastrostomy (PEG) tube ICD Codes: K94.23 - Gastrostomy malfunction SNOMED: 944424534 (3) Attention to G-tube ICD Codes: Z43.1 - Encounter for attention to gastrostomy SNOMED: 515621012, 280701615 (4) Dehydration ICD Codes: E86.0 - Dehydration SNOMED: 54961681 Status: unchanged Status Narrative Discussed with Dr. Light. Assessment/Plan symptomatic treatment at this time GTFs per dietary GT site care daily/prn monitor H&H, prn transfusion H2B fu labs, OB stool Subjective Subjective limited Objective Last 24 Hour Vital Signs Date Time Temp Pulse Resp B/P (MAP) Pulse Ox O2 Delivery O2 Flow Rate FiO2 07/18/17 08:32 80 18 Nasal Cannula 2.0 28 07/18/17 08:32 Nasal Cannula 2.0 28 07/18/17 08:32 98 Nasal Cannula 2.0 28 07/18/17 08:00 97.5 83 20 118/57 98 07/18/17 04:32 96 Room Air 07/18/17 03:34 96.8 82 20 93/58 96 Room Air 07/18/17 00:00 97 Room Air 07/18/17 00:00 96.6 105 20 99/80 97 Room Air 07/17/17 20:10 83 18 Nasal Cannula 2.0 28 07/17/17 20:10 Nasal Cannula 2.0 28 07/17/17 20:10 98 Nasal Cannula 2.0 28 07/17/17 20:00 98 Room Air 07/17/17 20:00 81 20 92/64 98 Room Air 07/17/17 15:59 97.7 92 20 106/72 97 Intake and Output 07/17/17 07/18/17 19:00 07:00 Intake Total 660 ml 1210 ml Output Total 450 ml Balance 210 ml 1210 ml Intake Oral 0 ml Free Water 200 ml IV Total 50 ml 550 ml Tube Feeding 410 ml 660 ml Output Urine Total 450 ml # Voids 2 2 # Bowel Movements 2 1 Laboratory Tests Test 07/17/17 17:00 07/18/17 04:35 Stool Occult Blood Pending White Blood Count 11.7 K/UL (4.8-10.8) #H Red Blood Count 5.69 M/UL (4.70-6.10) Hemoglobin 12.9 G/DL (14.2-18.0) L Hematocrit 41.8 % (42.0-52.0) L Mean Corpuscular Volume 73 FL (80-99) L Mean Corpuscular Hemoglobin 22.7 PG (27.0-31.0) L Mean Corpuscular Hemoglobin Concent 30.9 G/DL (32.0-36.0) L Red Cell Distribution Width 14.4 % (11.6-14.8) Platelet Count 216 K/UL (150-450) Mean Platelet Volume 11.5 FL (6.5-10.1) H Neutrophils (%) (Auto) 81.9 % (45.0-75.0) H Lymphocytes (%) (Auto) 12.4 % (20.0-45.0) L Monocytes (%) (Auto) 5.5 % (1.0-10.0) Eosinophils (%) (Auto) 0.0 % (0.0-3.0) Basophils (%) (Auto) 0.2 % (0.0-2.0) Sodium Level 142 MMOL/L (136-145) Potassium Level 5.3 MMOL/L (3.5-5.1) H Chloride Level 109 MMOL/L (98-107) H Carbon Dioxide Level 23 MMOL/L (21-32) Anion Gap 10 mmol/L (5-15) Blood Urea Nitrogen 25 mg/dL (7-18) H Creatinine 0.8 MG/DL (0.55-1.30) Estimat Glomerular Filtration Rate > 60 mL/min (>60) Glucose Level 145 MG/DL (74-106) H Calcium Level 8.6 MG/DL (8.5-10.1) Total Bilirubin 0.3 MG/DL (0.2-1.0) Aspartate Amino Transf (AST/SGOT) 27 U/L (15-37) Alanine Aminotransferase (ALT/SGPT) 14 U/L (12-78) Alkaline Phosphatase 75 U/L (46-116) Total Protein 7.3 G/DL (6.4-8.2) Albumin 3.0 G/DL (3.4-5.0) L Globulin 4.3 g/dL Albumin/Globulin Ratio 0.7 (1.0-2.7) L Height (Feet): 5 Height (Inches): 10.00 Weight (Pounds): 205 General Appearance: alert Cardiovascular: normal rate Respiratory/Chest: no respiratory distress, other - 2LNC Abdominal Exam: soft Chery Mcfarland N.P. Jul 18, 2017 11:46
[2017-07-18 12:00] VITALS: BP 108/73
--- NOTE | 2017-07-18 15:41 | Pulmonology Progress Note ---
Assessment/Plan Assessment/Plan 1. Chronic obstructive pulmonary disease exacerbation, resolving 2. Dementia. 3. Cerebral palsy. 4. Parkinson disease. 5. Dysphagia with gastric tube. 6. Seizure disorder. pulm status better taper steroids cont HHN DC plan per Dr Martínez Subjective ROS Limited/Unobtainable: Yes Allergies: Coded Allergies: NO KNOWN DRUG ALLERGIES (Unverified Allergy, Unknown, 08/22/15) Objective Last 24 Hour Vital Signs Date Time Temp Pulse Resp B/P (MAP) Pulse Ox O2 Delivery O2 Flow Rate FiO2 07/18/17 12:00 98.0 100 20 108/73 97 07/18/17 08:32 80 18 Nasal Cannula 2.0 28 07/18/17 08:32 Nasal Cannula 2.0 28 07/18/17 08:32 98 Nasal Cannula 2.0 28 07/18/17 08:00 97.5 83 20 118/57 98 07/18/17 04:32 96 Room Air 07/18/17 03:34 96.8 82 20 93/58 96 Room Air 07/18/17 00:00 97 Room Air 07/18/17 00:00 96.6 105 20 99/80 97 Room Air 07/17/17 20:10 83 18 Nasal Cannula 2.0 28 07/17/17 20:10 Nasal Cannula 2.0 28 07/17/17 20:10 98 Nasal Cannula 2.0 28 07/17/17 20:00 98 Room Air 07/17/17 20:00 81 20 92/64 98 Room Air 07/17/17 15:59 97.7 92 20 106/72 97 Intake and Output 07/17/17 07/18/17 19:00 07:00 Intake Total 660 ml 1260 ml Output Total 450 ml Balance 210 ml 1260 ml Intake Oral 0 ml Free Water 200 ml IV Total 50 ml 600 ml Tube Feeding 410 ml 660 ml Output Urine Total 450 ml # Voids 2 2 # Bowel Movements 2 1 General Appearance: no acute distress Respiratory/Chest: lungs clear Cardiovascular: normal rate Microbiology Date/Time Source Procedure Growth Status 07/16/17 03:23 Blood Blood Culture - Preliminary NO GROWTH AFTER 48 HOURS Resulted 07/16/17 03:02 Blood Blood Culture - Preliminary NO GROWTH AFTER 48 HOURS Resulted 07/16/17 18:55 Nasal Nares Influenza Types A,B Antigen (YAZ) - Final Complete 07/16/17 15:00 Straight Cath Urine Culture - Preliminary NO GROWTH AFTER 24 HOURS Resulted Laboratory Tests 07/17/17 17:00: Stool Occult Blood Negative 07/18/17 04:35: White Blood Count 11.7#H, Red Blood Count 5.69, Hemoglobin 12.9L, Hematocrit 41.8L, Mean Corpuscular Volume 73L, Mean Corpuscular Hemoglobin 22.7L, Mean Corpuscular Hemoglobin Concent 30.9L, Red Cell Distribution Width 14.4, Platelet Count 216, Mean Platelet Volume 11.5H, Neutrophils (%) (Auto) 81.9H, Lymphocytes (%) (Auto) 12.4L, Monocytes (%) (Auto) 5.5, Eosinophils (%) (Auto) 0.0, Basophils (%) (Auto) 0.2, Sodium Level 142, Potassium Level 5.3H, Chloride Level 109H, Carbon Dioxide Level 23, Anion Gap 10, Blood Urea Nitrogen 25H, Creatinine 0.8, Estimat Glomerular Filtration Rate > 60, Glucose Level 145H, Calcium Level 8.6, Total Bilirubin 0.3, Aspartate Amino Transf (AST/SGOT) 27, Alanine Aminotransferase (ALT/SGPT) 14, Alkaline Phosphatase 75, Total Protein 7.3, Albumin 3.0L, Globulin 4.3, Albumin/Globulin Ratio 0.7L Current Medications Medications (Trade) Dose Ordered Sig/Monalisa Route PRN Reason Start Time Stop Time Status Last Admin Dose Admin Acetaminophen (Tylenol) 650 mg Q4HR PRN GT Fever/Headache/Mild Pain 07/16/17 10:45 08/15/17 10:44 Albuterol/ Ipratropium (Albuterol/ Ipratropium) 3 ml Q4H PRN INH Shortness of Breath 07/16/17 11:00 07/21/17 10:59 Bisacodyl (Dulcolax) 10 mg DAILYPRN PRN RECTAL Constipation 07/16/17 13:00 08/15/17 12:59 Dextrose/Sodium Chloride 1,000 ml @ 50 mls/hr Q20H IV 07/16/17 12:30 08/15/17 12:29 07/18/17 05:42 Docusate Sodium (Colace) 100 mg TWICE A DAY GT 07/16/17 18:00 08/15/17 17:59 07/18/17 08:34 Finasteride (Proscar) 5 mg DAILY ORAL 07/17/17 09:00 08/16/17 08:59 07/18/17 08:33 Lacosamide (Vimpat) 100 mg Q12HR ORAL 07/16/17 12:00 08/15/17 11:59 07/18/17 08:33 Levetiracetam (Keppra) 2,000 mg Q12HR GT 07/16/17 13:00 08/15/17 12:59 07/18/17 08:35 Lorazepam (Ativan) 2 mg Q6H PRN GT Agitation 07/16/17 12:15 07/23/17 12:14 Methylprednisolone Sodium Succinate (Solu-MEDROL) 20 mg EVERY 8 HOURS IVP 07/17/17 22:00 08/16/17 21:59 07/18/17 13:41 Ondansetron HCl (Zofran) 4 mg Q6H PRN GT Nausea & Vomiting 07/16/17 11:45 08/15/17 11:44 Ranitidine HCl (Zantac) 150 mg Q12HR GT 07/16/17 21:00 08/15/17 20:59 07/18/17 08:34 Risperidone (RisperDAL) 1 mg BEDTIME ORAL 07/17/17 21:00 08/16/17 20:59 07/17/17 23:04 Valproic Acid (Depakene) 750 mg EVERY 12 HOURS GT 07/16/17 21:00 08/15/17 20:59 07/18/17 08:34 KAVON CARROLL Jul 18, 2017 15:41
[2017-07-18 16:00] VITALS: BP 113/71
[2017-07-18 20:00] VITALS: BP 110/65
--- NOTE | 2017-07-18 21:09 | General Progress Note ---
Assessment/Plan Problem List: (1) Noncompliance with medication regimen ICD Codes: Z91.14 - Patient's other noncompliance with medication regimen SNOMED: 492134614 (2) Lactic acidosis ICD Codes: E87.2 - Acidosis SNOMED: 73503429 (3) Hyperglycemia ICD Codes: R73.9 - Hyperglycemia, unspecified SNOMED: 47494125 (4) Paraparesis of both lower limbs ICD Codes: G82.20 - Paraparesis of both lower limbs SNOMED: 8767453 (5) Respiratory failure ICD Codes: J96.90 - Respiratory failure SNOMED: 926053869 (6) Pneumonia ICD Codes: J18.9 - Pneumonia, unspecified organism SNOMED: 335978004 Status: progressing Assessment/Plan pna improving afebrile vitals stable dm elevated bg Subjective ROS Limited/Unobtainable: Yes Constitutional: Reports: no symptoms Allergies: Coded Allergies: NO KNOWN DRUG ALLERGIES (Unverified Allergy, Unknown, 08/22/15) Objective Last 24 Hour Vital Signs Date Time Temp Pulse Resp B/P (MAP) Pulse Ox O2 Delivery O2 Flow Rate FiO2 07/18/17 20:05 98 Nasal Cannula 2.0 28 07/18/17 20:05 Nasal Cannula 2.0 28 07/18/17 20:05 70 18 Nasal Cannula 2.0 28 07/18/17 20:00 97.5 66 20 110/65 98 07/18/17 16:00 98.2 70 20 113/71 100 07/18/17 12:00 98.0 100 20 108/73 97 07/18/17 08:32 80 18 Nasal Cannula 2.0 28 07/18/17 08:32 Nasal Cannula 2.0 28 07/18/17 08:32 98 Nasal Cannula 2.0 28 07/18/17 08:00 97.5 83 20 118/57 98 07/18/17 04:32 96 Room Air 07/18/17 03:34 96.8 82 20 93/58 96 Room Air 07/18/17 00:00 97 Room Air 07/18/17 00:00 96.6 105 20 99/80 97 Room Air Intake and Output 07/17/17 07/18/17 19:00 07:00 Intake Total 660 ml 1260 ml Output Total 450 ml Balance 210 ml 1260 ml Intake Oral 0 ml Free Water 200 ml IV Total 50 ml 600 ml Tube Feeding 410 ml 660 ml Output Urine Total 450 ml # Voids 2 2 # Bowel Movements 2 1 Laboratory Tests 07/18/17 04:35: White Blood Count 11.7#H, Red Blood Count 5.69, Hemoglobin 12.9L, Hematocrit 41.8L, Mean Corpuscular Volume 73L, Mean Corpuscular Hemoglobin 22.7L, Mean Corpuscular Hemoglobin Concent 30.9L, Red Cell Distribution Width 14.4, Platelet Count 216, Mean Platelet Volume 11.5H, Neutrophils (%) (Auto) 81.9H, Lymphocytes (%) (Auto) 12.4L, Monocytes (%) (Auto) 5.5, Eosinophils (%) (Auto) 0.0, Basophils (%) (Auto) 0.2, Sodium Level 142, Potassium Level 5.3H, Chloride Level 109H, Carbon Dioxide Level 23, Anion Gap 10, Blood Urea Nitrogen 25H, Creatinine 0.8, Estimat Glomerular Filtration Rate > 60, Glucose Level 145H, Calcium Level 8.6, Total Bilirubin 0.3, Aspartate Amino Transf (AST/SGOT) 27, Alanine Aminotransferase (ALT/SGPT) 14, Alkaline Phosphatase 75, Total Protein 7.3, Albumin 3.0L, Globulin 4.3, Albumin/Globulin Ratio 0.7L Height (Feet): 5 Height (Inches): 10.00 Weight (Pounds): 205 Cardiovascular: normal rate Amy Martínez MD Jul 18, 2017 21:09
[2017-07-19] VITALS: BP 109/63
[2017-07-19] MEDS: D5NS 1,000 ML IV SCH ×2 (00:06→21:15)
[2017-07-19 04:00] VITALS: BP 112/76
[2017-07-19 06:40] LABS: BASOPHILS % (AUTO) 0.6 % (0.0-2.0); LYMPHOCYTES % (AUTO) 29.5 % (20.0-45.0); MEAN CORPUSCULAR HEMOGLOBIN 22.6 PG (27.0-31.0); MEAN CORPUSCULAR HGB CONC 30.7 G/DL (32.0-36.0); MEAN CORPUSCULAR VOLUME 74 FL (80-99); MEAN PLATELET VOLUME 13.6 FL (6.5-10.1); MONOCYTES % (AUTO) 12.5 % (1.0-10.0); NEUTROPHILS % (AUTO) 57.4 % (45.0-75.0); PLATELET COUNT 175 K/UL (150-450); RED BLOOD COUNT 5.08 M/UL (4.70-6.10); RED CELL DISTRIBUTION WIDTH 14.5 % (11.6-14.8)
[2017-07-19 07:03] LABS: ALANINE AMINOTRANSFERASE 11 U/L (12-78); ALBUMIN/GLOBULIN RATIO 0.7 (1.0-2.7); ANION GAP 5 mmol/L (5-15); ASPARTATE AMINO TRANSFERASE 12 U/L (15-37); CARBON DIOXIDE 31 MMOL/L (21-32); CHLORIDE 112 MMOL/L (98-107); CREATININE 0.8 MG/DL (0.55-1.30); GLOMERULAR FILTRATION RATE > 60 mL/min (>60); POTASSIUM 3.5 MMOL/L (3.5-5.1); SODIUM 148 MMOL/L (136-145); TOTAL PROTEIN 6.3 G/DL (6.4-8.2)
[2017-07-19 08:15] VITALS: BP 102/62
[2017-07-19] MEDS: Docusate 100mg/10ml Liq GT SCH ×2 (08:53→18:09)
[2017-07-19] MEDS: Valproic Acid 250mg/5ml Liquid GT SCH ×2 (08:54→21:10)
[2017-07-19] MEDS: levETIRAcetam 500mg/5ml Liquid GT SCH ×2 (08:55→21:10)
[2017-07-19] MEDS: Lacosamide 100 MG TABLET ORAL SCH ×2 (08:55→21:10)
--- NOTE | 2017-07-19 09:48 | Pulmonology Progress Note ---
Assessment/Plan Assessment/Plan 1. Chronic obstructive pulmonary disease exacerbation, resolving 2. Dementia. 3. Cerebral palsy. 4. Parkinson disease. 5. Dysphagia with gastric tube. 6. Seizure disorder. pulm status improved taper steroids cont HHN DC plan per Dr Martínez Subjective ROS Limited/Unobtainable: Yes Constitutional: Denies: fever Respiratory: Denies: productive cough Allergies: Coded Allergies: NO KNOWN DRUG ALLERGIES (Unverified Allergy, Unknown, 08/22/15) Objective Last 24 Hour Vital Signs Date Time Temp Pulse Resp B/P (MAP) Pulse Ox O2 Delivery O2 Flow Rate FiO2 07/19/17 08:15 97.9 96 22 102/62 99 Room Air 07/19/17 04:00 97.0 63 20 112/76 97 07/19/17 00:00 97.3 67 20 109/63 98 07/18/17 20:05 98 Nasal Cannula 2.0 28 07/18/17 20:05 Nasal Cannula 2.0 28 07/18/17 20:05 70 18 Nasal Cannula 2.0 28 07/18/17 20:00 97.5 66 20 110/65 98 07/18/17 16:00 98.2 70 20 113/71 100 07/18/17 12:00 98.0 100 20 108/73 97 Intake and Output 07/18/17 07/19/17 19:00 07:00 Intake Total 1405 ml 450 ml Balance 1405 ml 450 ml Free Water 200 ml IV Total 600 ml 450 ml Tube Feeding 605 ml # Voids 4 2 # Bowel Movements 1 General Appearance: no acute distress HEENT: atraumatic Respiratory/Chest: rhonchi Cardiovascular: normal rate Microbiology Date/Time Source Procedure Growth Status 07/16/17 18:55 Nasal Nares Influenza Types A,B Antigen (YAZ) - Final Complete 07/16/17 15:00 Straight Cath Urine Culture - Final NO GROWTH AFTER 48 HOURS Complete Laboratory Tests 07/19/17 05:40: White Blood Count 7.0, Red Blood Count 5.08, Hemoglobin 11.5L, Hematocrit 37.4L , Mean Corpuscular Volume 74L, Mean Corpuscular Hemoglobin 22.6L, Mean Corpuscular Hemoglobin Concent 30.7L, Red Cell Distribution Width 14.5, Platelet Count 175, Mean Platelet Volume 13.6H, Neutrophils (%) (Auto) 57.4, Lymphocytes (%) (Auto) 29.5, Monocytes (%) (Auto) 12.5H, Eosinophils (%) (Auto) 0.0, Basophils (%) (Auto) 0.6, Sodium Level 148H, Potassium Level 3.5, Chloride Level 112H, Carbon Dioxide Level 31, Anion Gap 5, Blood Urea Nitrogen 24H, Creatinine 0.8, Estimat Glomerular Filtration Rate > 60, Glucose Level 188H, Calcium Level 7.0L, Total Bilirubin 0.3, Aspartate Amino Transf (AST/SGOT) 12L, Alanine Aminotransferase (ALT/SGPT) 11L, Alkaline Phosphatase 60, Total Protein 6.3L, Albumin 2.6L, Globulin 3.7, Albumin/Globulin Ratio 0.7L Current Medications Medications (Trade) Dose Ordered Sig/Monalisa Route PRN Reason Start Time Stop Time Status Last Admin Dose Admin Acetaminophen (Tylenol) 650 mg Q4HR PRN GT Fever/Headache/Mild Pain 07/16/17 10:45 08/15/17 10:44 Albuterol/ Ipratropium (Albuterol/ Ipratropium) 3 ml Q4H PRN INH Shortness of Breath 07/16/17 11:00 07/21/17 10:59 Bisacodyl (Dulcolax) 10 mg DAILYPRN PRN RECTAL Constipation 07/16/17 13:00 08/15/17 12:59 Dextrose/Sodium Chloride 1,000 ml @ 50 mls/hr Q20H IV 07/16/17 12:30 08/15/17 12:29 07/19/17 00:06 Docusate Sodium (Colace) 100 mg TWICE A DAY GT 07/16/17 18:00 08/15/17 17:59 07/19/17 08:53 Finasteride (Proscar) 5 mg DAILY ORAL 07/17/17 09:00 08/16/17 08:59 07/19/17 08:55 Lacosamide (Vimpat) 100 mg Q12HR ORAL 07/16/17 12:00 08/15/17 11:59 07/19/17 08:55 Levetiracetam (Keppra) 2,000 mg Q12HR GT 07/16/17 13:00 08/15/17 12:59 07/19/17 08:55 Lorazepam (Ativan) 2 mg Q6H PRN GT Agitation 07/16/17 12:15 07/23/17 12:14 Ondansetron HCl (Zofran) 4 mg Q6H PRN GT Nausea & Vomiting 07/16/17 11:45 08/15/17 11:44 Prednisone (predniSONE) 20 mg BID ORAL 07/18/17 18:00 08/17/17 17:59 07/19/17 08:55 Ranitidine HCl (Zantac) 150 mg Q12HR GT 07/16/17 21:00 08/15/17 20:59 07/19/17 08:55 Risperidone (RisperDAL) 1 mg BEDTIME ORAL 07/17/17 21:00 08/16/17 20:59 07/18/17 21:32 Valproic Acid (Depakene) 750 mg EVERY 12 HOURS GT 07/16/17 21:00 08/15/17 20:59 07/19/17 08:54 KAVON CARROLL Jul 19, 2017 09:48
[2017-07-19 12:15] VITALS: BP 104/73
--- NOTE | 2017-07-19 14:57 | GI Progress Note ---
Assessment/Plan Problems: (1) Feeding by G-tube ICD Codes: Z93.1 - Feeding by G-tube SNOMED: 250831064 (2) Malfunction of percutaneous endoscopic gastrostomy (PEG) tube ICD Codes: K94.23 - Gastrostomy malfunction SNOMED: 705531234 (3) Attention to G-tube ICD Codes: Z43.1 - Encounter for attention to gastrostomy SNOMED: 713479660, 654239243 (4) Dehydration ICD Codes: E86.0 - Dehydration SNOMED: 24084933 Status: stable, unchanged Status Narrative Discussed with Dr. Light. Assessment/Plan OB stool negative symptomatic treatment at this time GTFs per dietary GT site care daily/prn monitor H&H, prn transfusion H2B fu labs Subjective Subjective limited Objective Last 24 Hour Vital Signs Date Time Temp Pulse Resp B/P (MAP) Pulse Ox O2 Delivery O2 Flow Rate FiO2 07/19/17 12:15 97.7 90 20 104/73 97 Nasal Cannula 2.0 07/19/17 09:04 99 Room Air 21 07/19/17 09:04 Room Air 21 07/19/17 09:04 94 20 Room Air 21 07/19/17 08:15 97.9 96 22 102/62 99 Room Air 07/19/17 04:00 97.0 63 20 112/76 97 07/19/17 00:00 97.3 67 20 109/63 98 07/18/17 20:05 98 Nasal Cannula 2.0 28 07/18/17 20:05 Nasal Cannula 2.0 28 07/18/17 20:05 70 18 Nasal Cannula 2.0 28 07/18/17 20:00 97.5 66 20 110/65 98 07/18/17 16:00 98.2 70 20 113/71 100 Intake and Output 07/18/17 07/19/17 19:00 07:00 Intake Total 1405 ml 450 ml Balance 1405 ml 450 ml Free Water 200 ml IV Total 600 ml 450 ml Tube Feeding 605 ml # Voids 4 2 # Bowel Movements 1 Laboratory Tests Test 07/19/17 05:40 White Blood Count 7.0 K/UL (4.8-10.8) Red Blood Count 5.08 M/UL (4.70-6.10) Hemoglobin 11.5 G/DL (14.2-18.0) L Hematocrit 37.4 % (42.0-52.0) L Mean Corpuscular Volume 74 FL (80-99) L Mean Corpuscular Hemoglobin 22.6 PG (27.0-31.0) L Mean Corpuscular Hemoglobin Concent 30.7 G/DL (32.0-36.0) L Red Cell Distribution Width 14.5 % (11.6-14.8) Platelet Count 175 K/UL (150-450) Mean Platelet Volume 13.6 FL (6.5-10.1) H Neutrophils (%) (Auto) 57.4 % (45.0-75.0) Lymphocytes (%) (Auto) 29.5 % (20.0-45.0) Monocytes (%) (Auto) 12.5 % (1.0-10.0) H Eosinophils (%) (Auto) 0.0 % (0.0-3.0) Basophils (%) (Auto) 0.6 % (0.0-2.0) Sodium Level 148 MMOL/L (136-145) H Potassium Level 3.5 MMOL/L (3.5-5.1) Chloride Level 112 MMOL/L (98-107) H Carbon Dioxide Level 31 MMOL/L (21-32) Anion Gap 5 mmol/L (5-15) Blood Urea Nitrogen 24 mg/dL (7-18) H Creatinine 0.8 MG/DL (0.55-1.30) Estimat Glomerular Filtration Rate > 60 mL/min (>60) Glucose Level 188 MG/DL (74-106) H Calcium Level 7.0 MG/DL (8.5-10.1) L Total Bilirubin 0.3 MG/DL (0.2-1.0) Aspartate Amino Transf (AST/SGOT) 12 U/L (15-37) L Alanine Aminotransferase (ALT/SGPT) 11 U/L (12-78) L Alkaline Phosphatase 60 U/L (46-116) Total Protein 6.3 G/DL (6.4-8.2) L Albumin 2.6 G/DL (3.4-5.0) L Globulin 3.7 g/dL Albumin/Globulin Ratio 0.7 (1.0-2.7) L Height (Feet): 5 Height (Inches): 10.00 Weight (Pounds): 205 General Appearance: no apparent distress, overweight Cardiovascular: normal rate Respiratory/Chest: normal breath sounds, no respiratory distress, other - 2LC Abdominal Exam: normal bowel sounds, non tender, soft, GT site - c/d/i Extremities: non-tender Chery Mcfarland N.P. Jul 19, 2017 14:57
[2017-07-19 16:15] VITALS: BP 103/64
--- NOTE | 2017-07-19 16:40 | General Progress Note ---
Assessment/Plan Status: stable Subjective Date patient seen: Jul 18, 2017 Neurologic/Psychiatric: Reports: depressed Allergies: Coded Allergies: NO KNOWN DRUG ALLERGIES (Unverified Allergy, Unknown, 08/22/15) Objective Last 24 Hour Vital Signs Date Time Temp Pulse Resp B/P (MAP) Pulse Ox O2 Delivery O2 Flow Rate FiO2 07/19/17 16:15 97.1 67 21 103/64 97 Nasal Cannula 2.0 07/19/17 12:15 97.7 90 20 104/73 97 Nasal Cannula 2.0 07/19/17 09:04 99 Room Air 21 07/19/17 09:04 Room Air 21 07/19/17 09:04 94 20 Room Air 21 07/19/17 08:15 97.9 96 22 102/62 99 Room Air 07/19/17 04:00 97.0 63 20 112/76 97 07/19/17 00:00 97.3 67 20 109/63 98 07/18/17 20:05 98 Nasal Cannula 2.0 28 07/18/17 20:05 Nasal Cannula 2.0 28 07/18/17 20:05 70 18 Nasal Cannula 2.0 28 07/18/17 20:00 97.5 66 20 110/65 98 Intake and Output 07/18/17 07/19/17 19:00 07:00 Intake Total 1405 ml 450 ml Balance 1405 ml 450 ml Free Water 200 ml IV Total 600 ml 450 ml Tube Feeding 605 ml # Voids 4 2 # Bowel Movements 1 Laboratory Tests 07/19/17 05:40: White Blood Count 7.0, Red Blood Count 5.08, Hemoglobin 11.5L, Hematocrit 37.4L , Mean Corpuscular Volume 74L, Mean Corpuscular Hemoglobin 22.6L, Mean Corpuscular Hemoglobin Concent 30.7L, Red Cell Distribution Width 14.5, Platelet Count 175, Mean Platelet Volume 13.6H, Neutrophils (%) (Auto) 57.4, Lymphocytes (%) (Auto) 29.5, Monocytes (%) (Auto) 12.5H, Eosinophils (%) (Auto) 0.0, Basophils (%) (Auto) 0.6, Sodium Level 148H, Potassium Level 3.5, Chloride Level 112H, Carbon Dioxide Level 31, Anion Gap 5, Blood Urea Nitrogen 24H, Creatinine 0.8, Estimat Glomerular Filtration Rate > 60, Glucose Level 188H, Calcium Level 7.0L, Total Bilirubin 0.3, Aspartate Amino Transf (AST/SGOT) 12L, Alanine Aminotransferase (ALT/SGPT) 11L, Alkaline Phosphatase 60, Total Protein 6.3L, Albumin 2.6L, Globulin 3.7, Albumin/Globulin Ratio 0.7L Height (Feet): 5 Height (Inches): 10.00 Weight (Pounds): 205 General Appearance: WD/WN, no apparent distress Neurologic: disoriented, unresponsive Kathleen Euceda M.D. Jul 19, 2017 16:40
--- NOTE | 2017-07-19 16:42 | Infectious Diseases Prog Note ---
Assessment/Plan Assessment/Plan A; SIRS COPD Dementia Seizure disorder Pyuria, UC negative P: Observe off antibiotic Agree with discharge Subjective ROS Limited/Unobtainable: Yes Allergies: Coded Allergies: NO KNOWN DRUG ALLERGIES (Unverified Allergy, Unknown, 08/22/15) Objective Vital Signs Last 24 Hour Vital Signs Date Time Temp Pulse Resp B/P (MAP) Pulse Ox O2 Delivery O2 Flow Rate FiO2 07/19/17 16:15 97.1 67 21 103/64 97 Nasal Cannula 2.0 07/19/17 12:15 97.7 90 20 104/73 97 Nasal Cannula 2.0 07/19/17 09:04 99 Room Air 21 07/19/17 09:04 Room Air 21 07/19/17 09:04 94 20 Room Air 21 07/19/17 08:15 97.9 96 22 102/62 99 Room Air 07/19/17 04:00 97.0 63 20 112/76 97 07/19/17 00:00 97.3 67 20 109/63 98 07/18/17 20:05 98 Nasal Cannula 2.0 28 07/18/17 20:05 Nasal Cannula 2.0 28 07/18/17 20:05 70 18 Nasal Cannula 2.0 28 07/18/17 20:00 97.5 66 20 110/65 98 Height (Feet): 5 Height (Inches): 10.00 Weight (Pounds): 205 General Appearance: no acute distress HEENT: mucous membranes moist Respiratory/Chest: lungs clear Cardiovascular: normal rate Abdomen: soft, non tender, other - GT feeding Extremities: no edema Neurologic/Psychiatric: alert, aphasia Microbiology Date/Time Source Procedure Growth Status 07/16/17 18:55 Nasal Nares Influenza Types A,B Antigen (YAZ) - Final Complete Laboratory Tests Test 07/19/17 05:40 White Blood Count 7.0 K/UL (4.8-10.8) Red Blood Count 5.08 M/UL (4.70-6.10) Hemoglobin 11.5 G/DL (14.2-18.0) L Hematocrit 37.4 % (42.0-52.0) L Mean Corpuscular Volume 74 FL (80-99) L Mean Corpuscular Hemoglobin 22.6 PG (27.0-31.0) L Mean Corpuscular Hemoglobin Concent 30.7 G/DL (32.0-36.0) L Red Cell Distribution Width 14.5 % (11.6-14.8) Platelet Count 175 K/UL (150-450) Mean Platelet Volume 13.6 FL (6.5-10.1) H Neutrophils (%) (Auto) 57.4 % (45.0-75.0) Lymphocytes (%) (Auto) 29.5 % (20.0-45.0) Monocytes (%) (Auto) 12.5 % (1.0-10.0) H Eosinophils (%) (Auto) 0.0 % (0.0-3.0) Basophils (%) (Auto) 0.6 % (0.0-2.0) Sodium Level 148 MMOL/L (136-145) H Potassium Level 3.5 MMOL/L (3.5-5.1) Chloride Level 112 MMOL/L (98-107) H Carbon Dioxide Level 31 MMOL/L (21-32) Anion Gap 5 mmol/L (5-15) Blood Urea Nitrogen 24 mg/dL (7-18) H Creatinine 0.8 MG/DL (0.55-1.30) Estimat Glomerular Filtration Rate > 60 mL/min (>60) Glucose Level 188 MG/DL (74-106) H Calcium Level 7.0 MG/DL (8.5-10.1) L Total Bilirubin 0.3 MG/DL (0.2-1.0) Aspartate Amino Transf (AST/SGOT) 12 U/L (15-37) L Alanine Aminotransferase (ALT/SGPT) 11 U/L (12-78) L Alkaline Phosphatase 60 U/L (46-116) Total Protein 6.3 G/DL (6.4-8.2) L Albumin 2.6 G/DL (3.4-5.0) L Globulin 3.7 g/dL Albumin/Globulin Ratio 0.7 (1.0-2.7) L Current Medications Medications (Trade) Dose Ordered Sig/Monalisa Route PRN Reason Start Time Stop Time Status Last Admin Dose Admin Acetaminophen (Tylenol) 650 mg Q4HR PRN GT Fever/Headache/Mild Pain 07/16/17 10:45 08/15/17 10:44 Albuterol/ Ipratropium (Albuterol/ Ipratropium) 3 ml Q4H PRN INH Shortness of Breath 07/16/17 11:00 07/21/17 10:59 Bisacodyl (Dulcolax) 10 mg DAILYPRN PRN RECTAL Constipation 07/16/17 13:00 08/15/17 12:59 Dextrose/Sodium Chloride 1,000 ml @ 50 mls/hr Q20H IV 07/16/17 12:30 08/15/17 12:29 07/19/17 00:06 Docusate Sodium (Colace) 100 mg TWICE A DAY GT 07/16/17 18:00 08/15/17 17:59 07/19/17 08:53 Finasteride (Proscar) 5 mg DAILY ORAL 07/17/17 09:00 08/16/17 08:59 07/19/17 08:55 Lacosamide (Vimpat) 100 mg Q12HR ORAL 07/16/17 12:00 08/15/17 11:59 07/19/17 08:55 Levetiracetam (Keppra) 2,000 mg Q12HR GT 07/16/17 13:00 08/15/17 12:59 07/19/17 08:55 Lorazepam (Ativan) 2 mg Q6H PRN GT Agitation 07/16/17 12:15 07/23/17 12:14 Ondansetron HCl (Zofran) 4 mg Q6H PRN GT Nausea & Vomiting 07/16/17 11:45 08/15/17 11:44 Prednisone (predniSONE) 20 mg BID ORAL 07/18/17 18:00 08/17/17 17:59 07/19/17 08:55 Ranitidine HCl (Zantac) 150 mg Q12HR GT 07/16/17 21:00 08/15/17 20:59 07/19/17 08:55 Risperidone (RisperDAL) 1 mg BEDTIME ORAL 07/17/17 21:00 08/16/17 20:59 07/18/17 21:32 Valproic Acid (Depakene) 750 mg EVERY 12 HOURS GT 07/16/17 21:00 08/15/17 20:59 07/19/17 08:54 TANMAY COSBY Jul 19, 2017 16:42
--- NOTE | 2017-07-19 17:07 | Wound Care Consultation ---
Wound Assessment Wound Assessment : Wound Number: 1 Wound Present on Admission: Yes New Wound: No Status Change of Wound: No Wound Location Body Site: back - left anterior upper thigh area Wound Type: rash Terry Test: Does not Terry Percent of Wound [place]/Red: 100 Wound Drainage Amount: None Wound Drainage Odor: None/Absent Tissue Surrounding Wound: Intact Wound General Appearance: Reddened Wound Comment #1 Rashes on back and left anterior upper thigh area Recommendation -Local wound care per protocol -Keep clean and dry -Optimize nutrition -Assess and f/u accordingly for any changes PAIGE ZIMMERMAN RN Jul 19, 2017 17:07
[2017-07-19 20:00] VITALS: BP 104/68
--- NOTE | 2017-07-19 20:57 | General Progress Note ---
Assessment/Plan Problem List: (1) Noncompliance with medication regimen ICD Codes: Z91.14 - Patient's other noncompliance with medication regimen SNOMED: 065579641 (2) Lactic acidosis ICD Codes: E87.2 - Acidosis SNOMED: 68528334 (3) Hyperglycemia ICD Codes: R73.9 - Hyperglycemia, unspecified SNOMED: 46502553 (4) Paraparesis of both lower limbs ICD Codes: G82.20 - Paraparesis of both lower limbs SNOMED: 9771335 (5) Respiratory failure ICD Codes: J96.90 - Respiratory failure SNOMED: 769008837 (6) Pneumonia ICD Codes: J18.9 - Pneumonia, unspecified organism SNOMED: 085840355 Status: progressing Assessment/Plan pna improving dm elevated bg not hypoxic afebrile Subjective ROS Limited/Unobtainable: Yes Allergies: Coded Allergies: NO KNOWN DRUG ALLERGIES (Unverified Allergy, Unknown, 08/22/15) Objective Last 24 Hour Vital Signs Date Time Temp Pulse Resp B/P (MAP) Pulse Ox O2 Delivery O2 Flow Rate FiO2 07/19/17 20:18 Room Air 07/19/17 20:18 97 Room Air 07/19/17 20:17 66 18 Nasal Cannula 21 07/19/17 20:00 97.7 60 21 104/68 99 07/19/17 16:15 97.1 67 21 103/64 97 Nasal Cannula 2.0 07/19/17 12:15 97.7 90 20 104/73 97 Nasal Cannula 2.0 07/19/17 09:04 99 Room Air 07/19/17 09:04 Room Air 07/19/17 09:04 94 20 Room Air 07/19/17 08:15 97.9 96 22 102/62 99 Room Air 07/19/17 04:00 97.0 63 20 112/76 97 07/19/17 00:00 97.3 67 20 109/63 98 Intake and Output 07/18/17 07/19/17 19:00 07:00 Intake Total 1405 ml 450 ml Balance 1405 ml 450 ml Free Water 200 ml IV Total 600 ml 450 ml Tube Feeding 605 ml # Voids 4 2 # Bowel Movements 1 Laboratory Tests 07/19/17 05:40: White Blood Count 7.0, Red Blood Count 5.08, Hemoglobin 11.5L, Hematocrit 37.4L , Mean Corpuscular Volume 74L, Mean Corpuscular Hemoglobin 22.6L, Mean Corpuscular Hemoglobin Concent 30.7L, Red Cell Distribution Width 14.5, Platelet Count 175, Mean Platelet Volume 13.6H, Neutrophils (%) (Auto) 57.4, Lymphocytes (%) (Auto) 29.5, Monocytes (%) (Auto) 12.5H, Eosinophils (%) (Auto) 0.0, Basophils (%) (Auto) 0.6, Sodium Level 148H, Potassium Level 3.5, Chloride Level 112H, Carbon Dioxide Level 31, Anion Gap 5, Blood Urea Nitrogen 24H, Creatinine 0.8, Estimat Glomerular Filtration Rate > 60, Glucose Level 188H, Calcium Level 7.0L, Total Bilirubin 0.3, Aspartate Amino Transf (AST/SGOT) 12L, Alanine Aminotransferase (ALT/SGPT) 11L, Alkaline Phosphatase 60, Total Protein 6.3L, Albumin 2.6L, Globulin 3.7, Albumin/Globulin Ratio 0.7L Height (Feet): 5 Height (Inches): 10.00 Weight (Pounds): 205 Respiratory/Chest: lungs clear Amy Martínez MD Jul 19, 2017 20:57
--- NOTE | 2017-07-19 23:30 | Progress Note ---
DATE: 07/19/2017 SUBJECTIVE: The patient is in room, calm, staring at the ceiling, and is not able to be engaged. He is in a catatonic position. The patient is not engaged. It seems like he is having depressed mood. MENTAL STATUS EXAMINATION: The patient is alert and nonverbal. Mood is neutral. Affect is flat. Thought process, there is a paucity of thought content. Thought content, no suicidal or homicidal ideations. ASSESSMENT: 1. Schizophrenia. 2. Cognitive impairment. PLAN: 1. We will continue current medications. 2. We will continue to follow and readjust the medications. Kathleen Euceda M.D. DR: JANELL JOB#: [id number] CC:
[2017-07-20] VITALS: BP 106/58
[2017-07-20 04:00] VITALS: BP 102/62
[2017-07-20 07:58] VITALS: BP 105/67
--- NOTE | 2017-07-20 08:04 | General Progress Note ---
Assessment/Plan Problem List: (1) Anemia ICD Codes: D64.9 - Anemia, unspecified SNOMED: 907856690 (2) [facility] resident ICD Codes: Z59.3 - Problems related to living in residential institution SNOMED: 737266290 (3) Paraparesis of both lower limbs ICD Codes: G82.20 - Paraparesis of both lower limbs SNOMED: 9292664 (4) Malfunction of percutaneous endoscopic gastrostomy (PEG) tube ICD Codes: K94.23 - Gastrostomy malfunction SNOMED: 635840513 (5) Feeding by G-tube ICD Codes: Z93.1 - Feeding by G-tube SNOMED: 405120832 (6) Diabetes ICD Codes: E11.9 - Diabetes SNOMED: 57393960 (7) Seizure ICD Codes: R56.9 - Unspecified convulsions SNOMED: 56370243 Assessment/Plan GTF reduced to 50 cc GT care and flush stable H&H negative stool ob fu Subjective ROS Limited/Unobtainable: No Allergies: Coded Allergies: NO KNOWN DRUG ALLERGIES (Unverified Allergy, Unknown, 08/22/15) Objective Last 24 Hour Vital Signs Date Time Temp Pulse Resp B/P (MAP) Pulse Ox O2 Delivery O2 Flow Rate FiO2 07/20/17 07:58 97.3 55 20 105/67 100 07/20/17 04:00 97.3 51 18 102/62 100 07/20/17 00:00 97.3 62 20 106/58 97 Nasal Cannula 07/19/17 20:18 Room Air 07/19/17 20:18 97 Room Air 07/19/17 20:17 66 18 Nasal Cannula 21 07/19/17 20:00 97.7 60 21 104/68 99 07/19/17 16:15 97.1 67 21 103/64 97 Nasal Cannula 2.0 07/19/17 12:15 97.7 90 20 104/73 97 Nasal Cannula 2.0 07/19/17 09:04 99 Room Air 21 07/19/17 09:04 Room Air 21 07/19/17 09:04 94 20 Room Air 21 07/19/17 08:15 97.9 96 22 102/62 99 Room Air Intake and Output 07/19/17 07/20/17 19:00 07:00 Intake Total 1405 ml 1415 ml Balance 1405 ml 1415 ml Free Water 200 ml 260 ml IV Total 600 ml 550 ml Tube Feeding 605 ml 605 ml # Voids 5 3 Height (Feet): 5 Height (Inches): 10.00 Weight (Pounds): 205 General Appearance: no apparent distress EENT: normal ENT inspection Neck: supple Cardiovascular: normal rate Respiratory/Chest: decreased breath sounds Abdomen: normal bowel sounds, non tender, soft Extremities: non-tender BUTCH ALMAGUER Jul 20, 2017 08:04
--- NOTE | 2017-07-20 09:27 | General Progress Note ---
Assessment/Plan Problem List: (1) Noncompliance with medication regimen ICD Codes: Z91.14 - Patient's other noncompliance with medication regimen SNOMED: 684598915 (2) Lactic acidosis ICD Codes: E87.2 - Acidosis SNOMED: 87587836 (3) Hyperglycemia ICD Codes: R73.9 - Hyperglycemia, unspecified SNOMED: 95318520 (4) Paraparesis of both lower limbs ICD Codes: G82.20 - Paraparesis of both lower limbs SNOMED: 3204429 (5) Respiratory failure ICD Codes: J96.90 - Respiratory failure SNOMED: 346770412 (6) Pneumonia ICD Codes: J18.9 - Pneumonia, unspecified organism SNOMED: 158554043 Status: progressing Assessment/Plan gave dc order if ok w dr tran and dr cam labs ok not hypoxic Subjective ROS Limited/Unobtainable: Yes Allergies: Coded Allergies: NO KNOWN DRUG ALLERGIES (Unverified Allergy, Unknown, 08/22/15) Objective Last 24 Hour Vital Signs Date Time Temp Pulse Resp B/P (MAP) Pulse Ox O2 Delivery O2 Flow Rate FiO2 07/20/17 07:58 97.3 55 20 105/67 100 07/20/17 06:38 Room Air 21 07/20/17 06:38 75 18 Room Air 21 07/20/17 06:38 99 Room Air 21 07/20/17 04:00 97.3 51 18 102/62 100 07/20/17 00:00 97.3 62 20 106/58 97 Nasal Cannula 07/19/17 20:18 Room Air 07/19/17 20:18 97 Room Air 07/19/17 20:17 66 18 Nasal Cannula 21 07/19/17 20:00 97.7 60 21 104/68 99 07/19/17 16:15 97.1 67 21 103/64 97 Nasal Cannula 2.0 07/19/17 12:15 97.7 90 20 104/73 97 Nasal Cannula 2.0 Intake and Output 07/19/17 07/20/17 19:00 07:00 Intake Total 1405 ml 1415 ml Balance 1405 ml 1415 ml Free Water 200 ml 260 ml IV Total 600 ml 550 ml Tube Feeding 605 ml 605 ml # Voids 5 3 Height (Feet): 5 Height (Inches): 10.00 Weight (Pounds): 205 Hadadz,Ali MD Jul 20, 2017 09:27
[2017-07-20] MEDS: levETIRAcetam 500mg/5ml Liquid GT SCH (09:53)
[2017-07-20] MEDS: Docusate 100mg/10ml Liq GT SCH (09:54)
[2017-07-20] MEDS: Valproic Acid 250mg/5ml Liquid GT SCH (09:54)
[2017-07-20] MEDS: Lacosamide 100 MG TABLET ORAL SCH (09:55)
--- NOTE | 2017-07-20 10:40 | Infectious Diseases Prog Note ---
Assessment/Plan Assessment/Plan antibiotics : none A 1. UTI 2. seizures 3. COPD 4. dementia P 1. continue off antibiotics 2. okay for discharge from ID perspective Subjective ROS Limited/Unobtainable: Yes Allergies: Coded Allergies: NO KNOWN DRUG ALLERGIES (Unverified Allergy, Unknown, 08/22/15) Objective Vital Signs Last 24 Hour Vital Signs Date Time Temp Pulse Resp B/P (MAP) Pulse Ox O2 Delivery O2 Flow Rate FiO2 07/20/17 07:58 97.3 55 20 105/67 100 07/20/17 06:38 Room Air 21 07/20/17 06:38 75 18 Room Air 21 07/20/17 06:38 99 Room Air 21 07/20/17 04:00 97.3 51 18 102/62 100 07/20/17 00:00 97.3 62 20 106/58 97 Nasal Cannula 07/19/17 20:18 Room Air 07/19/17 20:18 97 Room Air 07/19/17 20:17 66 18 Nasal Cannula 21 07/19/17 20:00 97.7 60 21 104/68 99 07/19/17 16:15 97.1 67 21 103/64 97 Nasal Cannula 2.0 07/19/17 12:15 97.7 90 20 104/73 97 Nasal Cannula 2.0 Height (Feet): 5 Height (Inches): 10.00 Weight (Pounds): 205 Respiratory/Chest: lungs clear Cardiovascular: normal rate, regular rhythm, no gallop/murmur Abdomen: soft, non tender, other - GT Extremities: no edema LIYAH CORTEZ Jul 20, 2017 10:40
[2017-07-20] MEDS ORDERED: DULCOLAX10 MG RC (11:20)
[2017-07-20] MEDS ORDERED: FLEET ENEMA133 ML RECTAL (11:20)
[2017-07-20] MEDS ORDERED: GLUCAGON W/DILUE1 MG IJ (11:23)
[2017-07-20] MEDS ORDERED: LEVEMIR FL100 UNIT/2 SQ (11:25)
[2017-07-20] MEDS ORDERED: KEPPRA LIQ100 MG/1 M ORAL (11:26)
[2017-07-20] MEDS ORDERED: SENNA LAXATIVE1 EAC1 GT (11:29)
[2017-07-20] MEDS ORDERED: VALPROIC A500 MG/10 ORAL (11:30)
[2017-07-20] MEDS ORDERED: ASCORBIC ACID500 MG ORAL (11:31)
[2017-07-20] MEDS ORDERED: ZINC SULFATE220 M1 ORAL (11:32)
[2017-07-20 11:34] VITALS: BP 97/55
--- NOTE | 2017-07-20 20:45 | Progress Note ---
DATE: 07/20/2017 SUBJECTIVE: The patient is calm, is catatonic, not answering the questions. He is nonverbal. Compliant with medication. He is on actually G-tube. MENTAL STATUS EXAMINATION: The patient is alert and oriented x0. Mood is neutral. Affect is flat. Thought process, there is a paucity of thought content. Thought content, no suicidal or homicidal ideation. ASSESSMENT: 1. Cognitive impairment. 2. Catatonia. 3. Schizophrenia by history. PLAN: We will continue current medications. Kathleen Euceda M.D. DR: Tereza JOB#: [id number] CC:
--- NOTE | 2017-07-24 19:53 | Discharge Summary ---
Discharge Summary Hospital Course Date of Admission Jul 16, 2017 at 03:43 Date of Discharge Jul 20, 2017 at 15:38 Admitting Diagnosis HYPOXIA HPI Gee Leach is a 61 year old male who was admitted on Jul 16, 2017 at 03: 43 for Hypoxia Hospital Course dc summary #[id number] Discharge Medications Continued Medications: Acetaminophen (Acetaminophen) 650 Mg/20.3 Ml Soln 325 MG ORAL EVERY 6 HOURS PRN for Mild Pain/Temp > 100.5, ML 0 Refills Acetaminophen* (Acetaminophen 325MG Tablet*) 325 Mg Tablet 650 MG ORAL Q4H PRN for Fever/Headache/Mild Pain, TAB Ascorbic Acid* (Ascorbic Acid*) 500 Mg Tablet 500 MG ORAL DAILY, TAB Bisacodyl (Dulcolax) 10 Mg Supp.rect 10 MG RC NEEDED PRN for Constipation, SUPP Clotrimazole* (Lotrimin*) 15 Gm Cream..g. 1 APPLIC TOPIC TWICE A DAY for gt site, GM Dextrose 50 % In Water (Dextrose 50%-Water Vial) 50 Ml Vial 50 ML IV PRN for Hypoglycemia, VIAL Docusate Sodium (Docusate Sodium) 100 Mg Tablet 100 MG GT TWICE A DAY, #30 TAB 0 Refills Famotidine (Pepcid) 20 Mg Tablet 20 MG ORAL BEDTIME, #7 TAB 0 Refills Finasteride* (Proscar*) 5 Mg Tablet 5 MG GT DAILY, #30 TAB 0 Refills Glucagon (Glucagen) 1 Mg/1 Ml Vial 1 MG IJ NEEDED PRN for Hypoglycemia, VIAL Insulin Detemir (Levemir Flextouch) 100 Unit/1 Ml Insuln.pen 15 UNIT SQ ACBREAKFAST, EA Ipratropium/Albuterol Sulfate (DuoNeb 0.5-3(2.5)mg/3ml) 3 Ml Ampul.neb 3 ML HHN Q4HR PRN for Shortness of Breath, EA Lacosamide (Vimpat) 100 Mg Tablet 100 MG GT EVERY 12 HOURS, TAB Levetiracetam (Keppra) 100 Mg/1 Ml Solution 20 ML ORAL Q12HR, #300 ML 0 Refills Magnesium Hydroxide* (Milk Of Magnesia*) 400 Mg/5 Ml Oral.susp 30 ML ORAL HS PRN for Constipation, ML Multivitamin Liquid* (Multi-Delyn*) 237 Ml Liquid 5 ML GT DAILY, ML Na Phos,M-B/Na Phos,Di-Ba* (Fleet Enema*) 133 Ml Enema 133 ML RECTAL DAILY PRN for Constipation, ML 0 Refills Omeprazole (Omeprazole) 20 Mg Tablet.dr 20 MG GT DAILY, TAB Risperidone (Risperdal) 1 Mg/1 Ml Solution 1 MG GT BID Sennosides/Docusate Sodium (Senna Laxative Tablet) 1 Each Tablet 2 EACH GT QHS, TAB Valproate Sodium (Depakene) 250 Mg/5 Ml Solution 750 MG GT Q12HR Zinc Sulfate (Zinc Sulfate*) 220 Mg Capsule 220 MG ORAL DAILY, CAP 0 Refills Discharge Condition Upon Discharge: stable Discharge Disposition Patient was discharged to SNF/Subacute Facility(03) Discharge Diagnoses: Discharge Instructions Discharge Instructions Special Instructions I have been assigned to complete a D/C Summary on this account. I was not involved in the patient management Lia Desir NP (Vanchtein) Jul 24, 2017 19:53
--- NOTE | 2017-07-25 | Discharge Summary 2 SIG ---
DATE OF ADMISSION: 07/16/2017 DATE OF DISCHARGE: 07/20/2017 REASON FOR ADMISSION: 61-year-old male, resident of the long term facility with past medical history significant for Parkinson disease, cerebral palsy, seizure disorder, and dysphagia with G-tube, presented with difficulty breathing. Upon evaluation in the emergency room, the patient was found to be in lactic acidosis. Lactic acid- 6.5. Troponin was negative. Pro BNP- 96. EKG revealed normal sinus rhythm, no acute ischemic changes. Urinalysis showed pyuria. Chest x-ray was negative for any acute cardiopulmonary pathology. The patient had hypoxia, shortness of breath, and wheezing. BUN-23 and creatinine 1.0. The patient was admitted with COPD exacerbation, dysphagia with G-tube, rule out UTI, seizure disorder, cerebral palsy, dementia, and dehydration. HOSPITAL COURSE: The patient was admitted. Pulmonary, GI, ID, and Psychiatric consults were requested. Aerospace Manager closely followed the patient. The patient was on supplemental oxygen to keep saturation above 92%. Pulmonary toilet was provided. The patient was started on IV steroids, which were gradually tapered. Nebulizing treatment with bronchodilator therapy was provided. Respiratory status was improving. According to information operator, marked elevation of lactic acid was transient, possibly may be attributed that he had a seizure episode that precipitated elevation in lactic acid, however, it was unwitnessed. The patient was on four different antiepileptic medications, which were continued. No seizure activity was observed . GI followed the patient closely and treated symptomatically. Strict aspiration precautions were maintained. G-tube feeding resumed. G-tube site care was provided. Hemoglobin and hematocrit were closely monitored and remained stable. Stool OB was negative. The patient was on GI prophylaxis with H2 mary carmen. H ID closely followed for possible UTI. Urinalysis with evidence of pyuria, however, urine culture was negative. Blood culture negative. Influenza screen negative. Chest x-ray as mentioned above was clear for an acute cardiopulmonary pathology. The patient was closely observed and monitored off antibiotics. The patient was afebrile, no leukocytosis. Patient was on initially on IV fluids. Prior to discharge, BUN down to 24 and creatinine -0.8. Psychiatrist closely evaluated the patient. The patient with schizophrenia, catatonia, and cognitive impairment. Psychiatric medication regimen was continued. No seizure activity while in the hospital. The patient was slowly improving. The patient was stable for discharge. FINAL DIAGNOSES: 1. Chronic obstructive pulmonary disease exacerbation. 2. Systemic inflammatory response syndrome. 3. Dysphagia with gastrostomy tube. 4. Lactic acidosis. 5. Cerebral palsy. 6. Seizure disorder. 7. Dementia. 8. Parkinson Disease. 9. Dehydration. 10. Schizophrenia. 11. Cognitive impairment. 12. Catatonia. DISCHARGE MEDICATIONS: See medication reconciliation list. DISCHARGE INSTRUCTIONS: The patient was discharged to long term facility. FOLLOWUP: Follow up with medical doctor at the facility. Amy Martínez M.D. I have been assigned to dictate discharge summary on this account and I was not involved in the patient's management. [facility]: EVARISTO JOB#: [id number] CC: KELVIN
== END 2017-07-20 15:38 | DRG 191 ==
LOC: EDBD 23:33 → EMR 07-16 02:36 → EDBEDREQ 07-16 03:43 → 4E 07-16 03:43 → EDBEDREQ 07-16 05:45 → 4E 07-16 06:26
DX: J44.1 Chronic obstructive pulmonary disease with (acute) exacerbation (principal); R65.10 Systemic inflammatory response syndrome (SIRS) of non-infectious origin without acute organ dysfunction; E87.2 Acidosis; F03.90 Unspecified dementia, unspecified severity, without behavioral disturbance, psychotic disturbance, mood disturbance, and anxiety; E11.65 Type 2 diabetes mellitus with hyperglycemia; G20 Parkinson's disease; E86.0 Dehydration; K94.23 Gastrostomy malfunction; F20.2 Catatonic schizophrenia; R13.10 Dysphagia, unspecified; G80.9 Cerebral palsy, unspecified; G40.909 Epilepsy, unspecified, not intractable, without status epilepticus; Z86.73 Personal history of transient ischemic attack (TIA), and cerebral infarction without residual deficits; I10 Essential (primary) hypertension; E78.5 Hyperlipidemia, unspecified; K21.9 Gastro-esophageal reflux disease without esophagitis; Z79.4 Long term (current) use of insulin; F78 Other intellectual disabilities; Y83.3 Surgical operation with formation of external stoma as the cause of abnormal reaction of the patient, or of later complication, without mention of misadventure at the time of the procedure; Z91.14 Patient's other noncompliance with medication regimen; D64.9 Anemia, unspecified; R09.02 Hypoxemia; R06.02 Shortness of breath
CPT/HCPCS: 36415; 71010; 80053; 81001; 82270; 82378; 82550; 82553; 82962; 83540; 83550; 83605; 83880; 84484; 85025; 86710; 87040; 87086; 93005; 94664; 94760; 99285

== ENCOUNTER 2017-08-08 16:32 | Emergency (ER) | payer MEDICARE, MEDICAID ==
[~2017-08-08] VITALS: Ht 172.7 cm; Wt 77.1 kg
[~2017-08-08 16:32] MED LIST changes: +ASCORBIC ACID500 MG ORAL; +DULCOLAX10 MG RC; +FLEET ENEMA133 ML RECTAL; +GLUCAGON W/DILUE1 MG IJ; +LEVEMIR FL100 UNIT/2 SQ; +SENNA LAXATIVE1 EAC1 GT; +ZINC SULFATE220 M1 ORAL
[2017-08-08 17:00] VITALS: BP 107/63
[2017-08-08 19:00] VITALS: BP 108/62
[2017-08-08 21:43] VITALS: BP 96/64
[2017-08-08 22:36] VITALS: BP 96/64
--- NOTE | 2017-08-08 22:40 | Emergency Room Report ---
History of Present Illness General Chief Complaint: General Complaint Source: Medical Record Present Illness HPI 61-year-old male presents to ED for G-tube placement. came out at skilled nursing today. nursing staff replaced with duvall catheter. Upon arrival patient showing no signs of distress. Patient has encephalopathy and is unable to provide any additional history at this time. No nausea or vomiting. No other aggravating or relieving factors. No other associated symptoms Allergies: Coded Allergies: NO KNOWN DRUG ALLERGIES (Unverified Allergy, Unknown, 08/22/15) Patient History Past Medical History: HTN, COPD, CVA/TIA, other - encephalopathy Past Surgical History: other - gtube Pertinent Family History: none Social History: Denies: smoking, alcohol use, drug use Immunizations: UTD Reviewed Nursing Documentation: PMH: Agreed, PSxH: Agreed Nursing Documentation-PMH Hx Cardiac Problems: Yes Hx Hypertension: Yes Hx Pacemaker: No Hx Asthma: No Hx COPD: Yes Hx Diabetes: Yes Hx Cancer: No Hx Gastrointestinal Problems: Yes - GTUBE Hx Dialysis: No Hx Neurological Problems: Yes - PARKINSONS,CEREBRAL PALSY Hx Cerebrovascular Accident: Yes Hx Parkinson's Disease: Yes Hx Seizures: Yes Hx Epilepsy: Yes Hx Cerebral Palsy: Yes Hx Speech Problem: Yes Hx Aphasia: Yes Hx Weakness: Yes Review of Systems All Other Systems: limited Physical Exam Vital Signs Date Time Temp Pulse Resp B/P (MAP) Pulse Ox O2 Delivery O2 Flow Rate FiO2 08/08/17 16:33 93 16 107/70 98 08/08/17 17:00 98.0 Room Air Sp02 EP Interpretation: reviewed, normal General Appearance: other - nonverbal Head: normocephalic Eyes: bilateral eye normal inspection, bilateral eye PERRL ENT: normal ENT inspection Neck: normal inspection Respiratory: chest non-tender, lungs clear, normal breath sounds, speaking full sentences Cardiovascular #1: regular rate, rhythm, no edema Gastrointestinal: other - Gtube site patent, C/D/I Rectal: deferred Genitourinary: no CVA tenderness Musculoskeletal: normal inspection Neurologic: other - nonverbal Psychiatric: other - nonverbal Skin: normal inspection Lymphatic: normal inspection Procedures Additional Procedure Procedure Narrative G-tube placement Patient placed on stretcher. Old G-tube is removed by deflating the balloon using syringe. G-tube site is inspected with no contraindications to G-tube placement. G-tube slowly inserted until resistance is met; G-tube balloon is slowly filled with 20 mL of normal saline and slowly retracted back until resistance is met. G-tube placement is confirmed with KUB study using Gastrografin Medical Decision Making Diagnostic Impression: Primary Impression: Malfunction of percutaneous endoscopic gastrostomy (PEG) tube ER Course Hospital Course 61-year-old male presents to ED for G-tube placement. Clinical course Patient placed on stretcher. After initial history and physical I replaced G- tube and inflate the balloon. G-tube placement confirmed with KUB study. Patient remained stable without any signs of distress. [facility] called and patient subsequently discharged back to facility. Diagnosis - malfunction of G tube stable and discharged back to facility. Followup with PMD. Return to ED if symptoms recur or worsen Other X-Ray Diagnostic Results Other X-Ray Diagnostic Results : X-Ray ordered: KUB # of Views/Limited Vs Complete: 1 View Indication: Other - gtube placement Interpretation: nonspecific bowel gas, no sbo, other - Gtube in place Impression: Other - Gtube in place Electronically Signed by: Electronically signed by Gage Pinedo MD Last Vital Signs Date Time Temp Pulse Resp B/P (MAP) Pulse Ox O2 Delivery O2 Flow Rate FiO2 08/08/17 21:43 98.0 86 16 96/64 98 Room Air Status: improved Disposition: XFER SNF Condition: Stable Referrals: TONYA GOOD (PCP) Patient Instructions: Gastrostomy Tube Replacement, Care After GAGE PINEDO M.D. Aug 08, 2017 22:40
--- NOTE | 2017-08-09 11:50 | Diagnostic Imaging Report ---
Indication: Gastrostomy tube replacement Technique: XRAY Abdomen 1v Comparison: 03/24/2017 Findings: Film obtained after injection of contrast. Gastrostomy tube demonstrates opacification of the stomach and duodenum. No extravasation of contrast identified. Bowel gas pattern is nonobstructive. Imaged lungs are clear. Impression: Contrast administered via gastrostomy tube is intraluminal. No evidence of leak. This corresponds with the [facility] preliminary report.
== END 2017-08-08 22:36 ==
LOC: EDBD 16:32 → EMR 17:00
DX: K94.23 Gastrostomy malfunction (principal); Y83.3 Surgical operation with formation of external stoma as the cause of abnormal reaction of the patient, or of later complication, without mention of misadventure at the time of the procedure; Y92.129 Unspecified place in nursing home as the place of occurrence of the external cause; G93.40 Encephalopathy, unspecified; J44.9 Chronic obstructive pulmonary disease, unspecified; I10 Essential (primary) hypertension; G20 Parkinson's disease; I63.9 Cerebral infarction, unspecified
CPT/HCPCS: 43760; 74018; 99283

== ENCOUNTER 2017-11-10 10:32 | Emergency (ER) | payer MEDICAID, MEDICARE ==
[~2017-11-10] VITALS: Ht 180.3 cm; Wt 81.6 kg
[2017-11-10 10:27] VITALS: BP 111/65
[2017-11-10] MEDS ORDERED: ALBUTEROL2.5 MG/3 M INH (10:37)
[2017-11-10] MEDS ORDERED: DULCOLAX10 MG RC (10:37)
[2017-11-10] MEDS ORDERED: LORAZEPAM1 MG GT (10:37)
[2017-11-10] MEDS ORDERED: LEVETIRACE100 MG/1 M GT (10:40)
[2017-11-10] MEDS ORDERED: MOM30 ML GT (10:40)
[2017-11-10] MEDS ORDERED: MILK OF MA400 MG/51 GT (11:02)
[2017-11-10] MEDS ORDERED: ZOFRAN4 M3 GT (11:02)
[2017-11-10] MEDS ORDERED: ACETAMINOPHEN325 M1 GT (11:02)
[2017-11-10] MEDS ORDERED: RISPERDAL1 MG GT (11:02)
[2017-11-10] MEDS ORDERED: VITAMIN C500 M1 GT (11:02)
[2017-11-10] MEDS ORDERED: VALPROIC A250 MG/5 M GT (11:02)
--- NOTE | 2017-11-10 11:42 | Emergency Room Report ---
History of Present Illness General Chief Complaint: Malfunctioning Gastric Tube Source: EMS Present Illness HPI G tube came out earlier today. Uncertain how this happened. It was 22 micronesian. 18 ga duvall was placed. No alleged fevers, vomiting. Patient ebullic and unable to state whether pain or other complaints. In past, psych consults have been able to communicate with patient. He does not communicate now. H/O cerebral palsy and schizophrenia. H/O seizures in past. On 3 meds: Vimpat, Valproic acid and Keppra. Also has ativan ordered. Most recent admission d/c dx: 1. Chronic obstructive pulmonary disease exacerbation. 2. Systemic inflammatory response syndrome. 3. Dysphagia with gastrostomy tube. 4. Lactic acidosis. 5. Cerebral palsy. 6. Seizure disorder. 7. Dementia. 8. Parkinson Disease. 9. Dehydration. 10. Schizophrenia. 11. Cognitive impairment. 12. Catatonia. Allergies: Coded Allergies: NO KNOWN DRUG ALLERGIES (Unverified Allergy, Unknown, 08/22/15) Patient History Limited by: medical condition Past Medical History: see triage record, old chart reviewed Social History: Denies: smoking, alcohol use Social History Narrative SNF Reviewed Nursing Documentation: PMH: Agreed; PSxH: Agreed Nursing Documentation-PMH Past Medical History: No History, Except For Hx Cardiac Problems: Yes Hx Hypertension: Yes Hx Pacemaker: No Hx Asthma: No Hx COPD: Yes Hx Diabetes: Yes Hx Cancer: No Hx Gastrointestinal Problems: Yes - Dysphagia Hx Dialysis: No History Of Psychiatric Problem: Yes - schizophrenia Hx Cerebrovascular Accident: Yes Hx Parkinson's Disease: Yes Hx Seizures: Yes Hx Epilepsy: Yes Hx Cerebral Palsy: Yes Hx Speech Problem: Yes Hx Aphasia: Yes Hx Weakness: Yes Review of Systems All Other Systems: limited Physical Exam Vital Signs Date Time Temp Pulse Resp B/P (MAP) Pulse Ox O2 Delivery O2 Flow Rate FiO2 11/10/17 10:17 97.7 96 20 110/80 96 Room Air 97.7 Sp02 EP Interpretation: reviewed, normal General Appearance: other - eyes open but not responsive to voice or pain, Chronically Ill Eyes: bilateral eye normal inspection, bilateral eye PERRL ENT: moist mucus membranes Neck: other - not spontaneously moving neck Respiratory: lungs clear, normal breath sounds, no respiratory distress Cardiovascular #1: regular rate, rhythm Cardiovascular #2: 2+ radial (R) Gastrointestinal: normal inspection, normal bowel sounds, non tender, soft, non -distended, other - G tube site with duvall Musculoskeletal: other - some extensor contractures LE, not UE Neurologic: DTRs symmetric, motor weakness, other - eyes open but not respond to voice or painful stimuli Psychiatric: depressed affect - vegetative state Skin: normal color Procedures Additional Procedure Procedure Narrative Attempted [address] 20 micronesian passed. Stomach contents return. Medical Decision Making Diagnostic Impression: Primary Impression: Visit for feeding tube placement Additional Impressions: Feeding by G-tube Impaired verbal communication Seizure disorder cerebral pulsy with advanced mental retardation Schizophrenia Qualified Codes: F20.9 - Schizophrenia, unspecified ER Course Patient with G tube coming out. Needs replacement. Appear euvolemic and not toxic. Vegetative state neurologically. G tube replace - one size less (20 fx). Tolerated well. Patient stable for outpatient observation and treatment. Last Vital Signs Date Time Temp Pulse Resp B/P (MAP) Pulse Ox O2 Delivery O2 Flow Rate FiO2 11/10/17 13:16 97.7 78 13 114/68 98 Room Air 97.7 Status: improved Disposition: [facility] SNF Condition: Improved Referrals: TONYA GOOD (PCP) Alex Renee M.D. Nov 10, 2017 11:42
[2017-11-10 13:00] VITALS: BP 114/68
[2017-11-10 13:16] VITALS: BP 114/68
--- NOTE | 2017-11-11 08:20 | Diagnostic Imaging Report ---
Indication: Status post gastrostomy replacement Technique: Supine view of the abdomen after injection of water-soluble contrast into gastrostomy Comparison: 11/06/2017 Findings: Contrast opacifies the stomach. No contrast extravasation is demonstrated. The bowel gas pattern is unremarkable. Contrast from the previous exam is seen in the colon Impression: Satisfactory position of gastrostomy tube This agrees with the preliminary interpretation provided by the emergency room physician
== END 2017-11-10 13:16 ==
LOC: EDBD 10:32 → EMR 11:06
DX: K94.29 Other complications of gastrostomy (principal); G40.909 Epilepsy, unspecified, not intractable, without status epilepticus; G80.9 Cerebral palsy, unspecified; F79 Unspecified intellectual disabilities; F20.9 Schizophrenia, unspecified; I10 Essential (primary) hypertension; J44.9 Chronic obstructive pulmonary disease, unspecified; E11.9 Type 2 diabetes mellitus without complications; G20 Parkinson's disease; Z86.73 Personal history of transient ischemic attack (TIA), and cerebral infarction without residual deficits; F02.80 Dementia in other diseases classified elsewhere, unspecified severity, without behavioral disturbance, psychotic disturbance, mood disturbance, and anxiety
CPT/HCPCS: 74018; 99283

== ENCOUNTER 2018-01-30 23:02 | Inpatient (IN) | payer MEDICARE, MEDICAID ==
[~2018-01-30] VITALS: Ht 177.8 cm; Wt 70.3 kg
[~2018-01-30 23:02] MED LIST changes: +ACETAMINOPHEN325 M1 GT; +ALBUTEROL2.5 MG/3 M INH; +LEVETIRACE100 MG/1 M GT; +LORAZEPAM1 MG GT; +MILK OF MA400 MG/51 GT; +MOM30 ML GT; +RISPERDAL1 MG GT; +VALPROIC A250 MG/5 M GT; +ZOFRAN4 M3 GT
[2018-01-30 23:41] VITALS: BP 122/84
[2018-01-31] VITALS (8 sets, daily range): BP systolic 102–132; BP diastolic 62–84
[2018-01-31] MEDS ORDERED: Acetaminophen 500mg (ES) tab ORAL ONE
[2018-01-31] MEDS ORDERED: Vancomycin 1.5gm/D5W 250ml 250 ML IVPB ONE (00:30)
[2018-01-31] MEDS ORDERED: Cefepime HCl 1 GM in D5W 55 ML IVPB ONE (00:30)
[2018-01-31 00:35] LABS: EOSINOPHILS % (AUTO) 0.1 % (0.0-3.0); HEMATOCRIT 53.2 % (42.0-52.0); HEMOGLOBIN 16.8 G/DL (14.2-18.0); LYMPHOCYTES % (AUTO) 5.3 % (20.0-45.0); MEAN CORPUSCULAR VOLUME 74 FL (80-99); MONOCYTES % (AUTO) 10.6 % (1.0-10.0); NEUTROPHILS % (AUTO) 83.1 % (45.0-75.0); PLATELET COUNT 119 K/UL (150-450); RED BLOOD COUNT 7.21 M/UL (4.70-6.10); RED CELL DISTRIBUTION WIDTH 14.5 % (11.6-14.8); WHITE BLOOD COUNT 17.1 K/UL (4.8-10.8)
[2018-01-31 00:48] LABS: INR 1.1 (0.9-1.1)
[2018-01-31 01:01] LABS: ALANINE AMINOTRANSFERASE 10 U/L (12-78); ALBUMIN 3.6 G/DL (3.4-5.0); ALBUMIN/GLOBULIN RATIO 0.7 (1.0-2.7); ALKALINE PHOSPHATASE 94 U/L (46-116); ANION GAP 19 mmol/L (5-15); ASPARTATE AMINO TRANSFERASE 11 U/L (15-37); BILIRUBIN,TOTAL 0.7 MG/DL (0.2-1.0); BLOOD UREA NITROGEN 43 mg/dL (7-18); CALCIUM 9.7 MG/DL (8.5-10.1); CARBON DIOXIDE 20 MMOL/L (21-32); CHLORIDE 112 MMOL/L (98-107); CKMB < 0.5 NG/ML (0.0-3.6); CREATINE KINASE 146 U/L (26-308); CREATININE 2.3 MG/DL (0.55-1.30); POTASSIUM 4.4 MMOL/L (3.5-5.1); SODIUM 151 MMOL/L (136-145)
[2018-01-31] MEDS ORDERED: Insulin Human Regular 100units/ml 3ml IV ONE ×3 (01:15→05:00)
[2018-01-31 02:05] LABS: APPEARANCE,URINE CLEAR; BILIRUBIN, URINE NEGATIVE (NEGATIVE); COLOR,URINE PALE YELLOW; GLUCOSE, URINE (UA) 4+ (NEGATIVE); KETONES,URINE 3+ (NEGATIVE); LEUKOCYTE ESTERASE ,URINE NEGATIVE (NEGATIVE); NITRITE,URINE NEGATIVE (NEGATIVE); PH,URINE 5 (4.5-8.0); PROTEIN,URINE 2+ (NEGATIVE); UROBILINOGEN,URINE NORMAL MG/DL (0.0-1.0)
--- NOTE | 2018-01-31 04:57 | Emergency Room Report ---
History of Present Illness General Chief Complaint: Altered Level of Consciousness Source: Medical Record, EMS Present Illness HPI This is an unfortunate 62-year-old male with multiple audible problems coming from a intermediate. He has a history of CVA, hypertension, diabetes. He presents with altered mental status. Per EMS, decreased mentation for one day. At baseline he was able to answer yes or no and more awake. Now unresponsive. Moans to painful stimuli. Unknown fever. Has respiratory distress. Allergies: Coded Allergies: NO KNOWN DRUG ALLERGIES (Unverified Allergy, Unknown, 08/22/15) Patient History Past Medical History: see triage record, old chart reviewed, DM, HTN, CAD, CVA/ TIA Past Surgical History: other Pertinent Family History: none Social History: Denies: smoking Immunizations: other Reviewed Nursing Documentation: PMH: Agreed; PSxH: Agreed Nursing Documentation-PMH Past Medical History: No History, Except For Hx Cardiac Problems: Yes Hx Hypertension: Yes Hx Pacemaker: No Hx Asthma: No Hx COPD: Yes Hx Diabetes: Yes - dm2 Hx Cancer: No Hx Gastrointestinal Problems: Yes - Dysphagia, Hx Dialysis: No - BPH Hx Cerebrovascular Accident: Yes Hx Parkinson's Disease: Yes Hx Seizures: Yes Hx Epilepsy: Yes Hx Cerebral Palsy: Yes Hx Speech Problem: Yes Hx Aphasia: Yes Hx Weakness: Yes Review of Systems Respiratory: Reports: cough, shortness of breath All Other Systems: limited - secondary to patient condition Physical Exam Vital Signs Date Time Temp Pulse Resp B/P (MAP) Pulse Ox O2 Delivery O2 Flow Rate FiO2 01/30/18 23:03 102.0 160 16 131/81 98 Room Air 102.0 01/30/18 23:41 100 vitals with fever, tachycardia, hypoxia Sp02 EP Interpretation: abnormal General Appearance: severe distress, Chronically Ill, Stupor Eyes: bilateral eye PERRL ENT: dry mucus membranes Neck: other - neck is stiff Respiratory: respiratory distress, decreased breath sounds, accessory muscle use, crackles, rhonchi Cardiovascular #1: tachycardia Gastrointestinal: non tender, soft, other - G-tube intact Musculoskeletal: other - sacral flap Neurologic: other - grimace to painful stimuli Skin: other - warm to the touch Procedures Critical Care Time Critical Care Time Critical care is mandated in this patient who presented with sepsis from pneumonia. Patient require my urgent intervention to attenuate the risks of metabolic collapse which may lead to cardiovascular collapse and . Critical care time is 75 minutes excluding any reportable procedure. Critical care time included evaluation, multiple reevaluation, looking at old charts, interpreting laboratory and diagnostic data, discussing case with patient and family and consultants, and charting. Central Line Central Line : Consent: Emergent Central Line Lumen: triple Maximal Sterile Barrier Tech: yes cap, yes mask, yes sterile gown, yes sterile gloves, yes large sterile sheet, yes hand hygiene, yes chlorhexidine prep Central Line Postion: internal jugular (R) Complications: none Central Line Post Position: sutured, good blood return, position confirmed w / CXR Attempts: One Patient Tolerated: Well Complications: None Progress I place a right internal jugular central line for IV access. This was done with ultrasound guided. No complication. Medical Decision Making Diagnostic Impression: Primary Impression: Severe sepsis without septic shock Additional Impressions: Healthcare-associated pneumonia ARF (acute renal failure) Qualified Codes: N17.9 - Acute kidney failure, unspecified Hyperosmolar syndrome Hyperglycemia due to type 1 diabetes mellitus Proteinuria Qualified Codes: R80.9 - Proteinuria, unspecified Toxic metabolic encephalopathy ER Course Patient presents with severe sepsis secondary to health care associated pneumonia. Antibiotics given. He is also very dehydrated. He is given multiple boluses of normal saline. He is maintaining his airway right now. I see no need for intubation. Heart rate improved after IV fluid and Tylenol for fever. Insulin given for hyperglycemia. Prognosis is poor. Will admit to stepdown unit. I contacted Dr. Johnson and Basil for admission. Lab Results Impression labs with leukocytosis EKG Diagnostic Results Rate: tachycardiac Rhythm: NSR ST Segments: other - NSST changes Rhythm Strip Diag. Results Rhythm Strip Time: 05:07 EP Interpretation: yes Rate: 115 Rhythm: NSR, no PVC's, no ectopy Chest X-Ray Diagnostic Results Chest X-Ray Diagnostic Results #1: Chest X-Ray Ordered: Yes # of Views/Limited/Complete: 1 View Indication: Shortness of Breath EP Interpretation: Yes Interpretation: no effusion, no pneumothorax, other - RML infiltrate Impression: Other - RML infiltrate Electronically Signed by: Angel Luis Mcfarland MD Chest X-Ray Diagnostic Results #2: Chest X-Ray Ordered: Yes # of Views/Limited/Complete: 1 View Indication: Other - line placement EP Interpretation: Yes Interpretation: no effusion, no pneumothorax, other - central line in good position. Impression: Other - central line in good position. Electronically Signed by: Angel Luis Mcfarland MD Last Vital Signs Date Time Temp Pulse Resp B/P (MAP) Pulse Ox O2 Delivery O2 Flow Rate FiO2 01/31/18 01:08 100.5 143 22 132/82 98 Non-Rebreather 100 100.5 Status: improved Disposition: ADMITTED INPATIENT Condition: Critical Referrals: Donaldo Johnson DO (PCP) ANGEL LUIS MCFARLAND M.D. Jan 31, 2018 04:57
--- NOTE | 2018-01-31 10:42 | General Progress Note ---
Progress Note Progress Note [id number] full consult dictated Michelle Stanley MD Jan 31, 2018 10:42
--- NOTE | 2018-01-31 11:07 | Diagnostic Imaging Report ---
Indication: Dyspnea Comparison: 07/16/2017 A single view chest radiograph was obtained. Findings: Lung volumes are low. Heart size is normal. Bones are slightly osteopenic. IMPRESSION: No acute findings
[2018-01-31] MEDS ORDERED: Albuterol/Ipratropium 3ml neb HHN PRN (11:15)
[2018-01-31] MEDS ORDERED: LORazepam 1mg tab GT PRN (11:15)
[2018-01-31] MEDS ORDERED: Milk of Magnesia 30ml Ud GT PRN (11:15)
[2018-01-31] MEDS ORDERED: Acetaminophen 650mg/20.3ml ORAL PRN (11:15)
[2018-01-31] MEDS ORDERED: Albuterol ud Inhalation HHN PRN (11:15)
[2018-01-31] MEDS ORDERED: Promethazine/Codeine 5ml UD ORAL PRN (11:45)
--- NOTE | 2018-01-31 11:53 | Consultation ---
History of Present Illness General Date patient seen: Jan 31, 2018 Chief Complaint: Altered Level of Consciousness Present Illness HPI 62-year-old male with hx of CVA, bed bound, Gtube feeding, DM, snf resident brought in by paramedics with CC of altered mental status. Per EMS, decreased mentation for one day. At baseline he was able to answer yes or no and more awake. Now unresponsive. Moans to painful stimuli. Unknown fever. Has respiratory distress. He was febrile, tachycardic, and had a "critically" high BS. Allergies: Coded Allergies: NO KNOWN DRUG ALLERGIES (Unverified Allergy, Unknown, 08/22/15) Medication History Scheduled Ascorbic Acid* (Vitamin C*), 500 MG GT TWICE A DAY, (Reported) Clotrimazole* (Lotrimin*), 1 APPLIC TOPIC TWICE A DAY, (Reported) Docusate Sodium (Docusate Sodium), 100 MG GT TWICE A DAY, (Reported) Famotidine (Pepcid), 20 MG ORAL BEDTIME, (Reported) Finasteride* (Proscar*), 5 MG GT DAILY, (Reported) Heparin Sod (Porcine) (Heparin Sodium*), 5,000 UNITS SUBQ EVERY 12 HOURS, ( Reported) Insulin Detemir (Levemir Flextouch), 15 UNIT SQ ACBREAKFAST, (Reported) Lacosamide (Vimpat), 100 MG GT EVERY 12 HOURS, (Reported) Levetiracetam* (Levetiracetam*), 2,000 MG GT BID, (Reported) Magnesium Hydroxide (Milk of Magnesia), 30 ML GT BEDTIME, (Reported) Metoprolol Tartrate (Metoprolol Tartrate), 25 MG GT EVERY 12 HOURS, (Reported) Metoprolol Tartrate* (Metoprolol Tartrate*), 25 MG GT EVERY 12 HOURS, (Reported) Multivitamin Liquid* (Multi-Delyn*), 5 ML GT DAILY, (Reported) Omeprazole (Omeprazole), 20 MG GT DAILY, (Reported) Potassium Chloride (Potassium Chloride), 40 MEQ GT BID, (Reported) Ranitidine Hcl* (Zantac*), 150 MG GT BID, (Reported) Risperidone* (Risperdal*), 1 MG GT DAILY, (Reported) Sennosides/Docusate Sodium (Senna Laxative Tablet), 2 EACH GT QHS, (Reported) Valproate Sodium (Valproic Acid), 750 MG GT EVERY 12 HOURS, (Reported) Zinc Sulfate (Zinc Sulfate*), 220 MG ORAL DAILY, (Reported) Scheduled PRN Acetaminophen (Acetaminophen), 325 MG ORAL EVERY 6 HOURS PRN for Mild Pain/Temp > 100.5, (Reported) Acetaminophen* (Acetaminophen 325MG Tablet*), 650 MG ORAL Q4H PRN for Fever/ Headache/Mild Pain, (Reported) Acetaminophen* (Acetaminophen 325MG Tablet*), 650 MG GT Q4H PRN for Fever/ Headache/Mild Pain, (Reported) Albuterol Sulfate* (Albuterol Sulfate Hhn*), 3 ML INH Q4H PRN for Shortness of Breath, (Reported) Bisacodyl (Dulcolax), 10 MG RC DAILY PRN for Constipation, (Reported) Dextrose 50 % In Water (Dextrose 50%-Water Vial), 50 ML IV for Hypoglycemia, ( Reported) Glucagon (Glucagen), 1 MG IJ NEEDED PRN for Hypoglycemia, (Reported) Ipratropium/Albuterol Sulfate (DuoNeb 0.5-3(2.5)mg/3ml), 3 ML HHN Q4HR PRN for Shortness of Breath, (Reported) Lorazepam* (Lorazepam*), 1 MG GT EVERY 12 HOURS PRN for For Anxiety, (Reported) Morphine Sulfate* (Morphine Sulfate*), 2 MG IVP Q4HR PRN for For Pain, (Reported ) Na Phos,M-B/Na Phos,Di-Ba* (Fleet Enema*), 133 ML RECTAL DAILY PRN for Constipation, (Reported) Nitroglycerin (Nitroglycerin), 0.4 MG SL q5mns x three doses PRN for chest pain, (Reported) Ondansetron* (Zofran*), 4 MG GT Q6H PRN for Nausea & Vomiting, (Reported) Polyethylene Glycol 3350* (Miralax*), 17 GM GT DAILY PRN for Constipation, ( Reported) Prochlorperazine Edisylate* (Compazine*), 10 MG IVP Q6H PRN for Nausea & Vomiting, (Reported) Miscellaneous Medications Magnesium Hydroxide* (Milk Of Magnesia*), 30 ML GT, (Reported) Water For Irrigation,Sterile (Water), 1,000 ML IR, (Reported) [insulin novolog], (Reported) Patient History Healthcare decision maker Resuscitation status Full Code Advanced Directive on File No Past Medical/Surgical History Past Medical/Surgical History: (1) Seizure disorder (2) Seizure disorder, complex partial (3) PEG (percutaneous endoscopic gastrostomy) adjustment/replacement/removal (4) cerebral pulsy with advanced mental retardation Review of Systems All Other Systems: negative except mentioned in HPI Physical Exam General Appearance: WD/WN Lines, tubes and drains: peripheral HEENT: normocephalic, atraumatic Neck: non-tender, normal alignment Respiratory/Chest: rhonchi - left, rhonchi - right Cardiovascular/Chest: normal peripheral pulses, normal rate Abdomen: normal bowel sounds, non tender Genitourinary/Rectal: normal genital exam, normal rectal exam Extremities: normal range of motion, non-tender, normal inspection Last 24 Hour Vital Signs Date Time Temp Pulse Resp B/P (MAP) Pulse Ox O2 Delivery O2 Flow Rate FiO2 01/31/18 08:00 98.9 109 20 111/64 92 Nasal Cannula 4.0 98.9 01/31/18 08:00 108 01/31/18 06:10 98.2 111 20 109/69 95 Non-Rebreather 100 98.2 01/31/18 06:02 99.9 111 24 118/78 94 Nasal Cannula 3.0 01/31/18 05:14 99.9 115 22 118/76 98 Non-Rebreather 100 99.9 01/31/18 01:29 100.1 01/31/18 01:08 100.5 143 22 132/82 98 Non-Rebreather 100 100.5 01/31/18 01:05 102.0 161 25 122/84 98 Non-Rebreather 100 102.0 01/31/18 00:30 102.0 01/30/18 23:41 102.0 25 122/84 98 Non-Rebreather 100 102.0 01/30/18 23:03 102.0 160 16 131/81 98 Room Air 102.0 Intake and Output 01/30/18 01/31/18 19:00 07:00 Intake Total 4505 ml Balance 4505 ml Intake Free Water 100 ml IV Total 4405 ml Laboratory Tests Test 01/30/18 23:55 7/6/18 01:20 01/31/18 02:25 01/31/18 05:00 White Blood Count 17.1 K/UL (4.8-10.8) H Red Blood Count 7.21 M/UL (4.70-6.10) H Hemoglobin 16.8 G/DL (14.2-18.0) Hematocrit 53.2 % (42.0-52.0) H Mean Corpuscular Volume 74 FL (80-99) L Mean Corpuscular Hemoglobin 23.3 PG (27.0-31.0) L Mean Corpuscular Hemoglobin Concent 31.6 G/DL (32.0-36.0) L Red Cell Distribution Width 14.5 % (11.6-14.8) Platelet Count 119 K/UL (150-450) L Mean Platelet Volume 9.8 FL (6.5-10.1) Neutrophils (%) (Auto) 83.1 % (45.0-75.0) H Lymphocytes (%) (Auto) 5.3 % (20.0-45.0) L Monocytes (%) (Auto) 10.6 % (1.0-10.0) H Eosinophils (%) (Auto) 0.1 % (0.0-3.0) Basophils (%) (Auto) 1.0 % (0.0-2.0) Prothrombin Time 11.7 SEC (9.30-11.50) H Prothromb Time International Ratio 1.1 (0.9-1.1) Activated Partial Thromboplast Time 26 SEC (23-33) Sodium Level 151 MMOL/L (136-145) H Potassium Level 4.4 MMOL/L (3.5-5.1) Chloride Level 112 MMOL/L (98-107) H Carbon Dioxide Level 20 MMOL/L (21-32) L Anion Gap 19 mmol/L (5-15) H Blood Urea Nitrogen 43 mg/dL (7-18) H Creatinine 2.3 MG/DL (0.55-1.30) H Estimat Glomerular Filtration Rate 29.2 mL/min (>60) Glucose Level 686 MG/DL (74-106) *H Lactic Acid Level 7.90 mmol/L (0.4-2.0) H 3.70 mmol/L (0.66-2.22) H Calcium Level 9.7 MG/DL (8.5-10.1) Total Bilirubin 0.7 MG/DL (0.2-1.0) Aspartate Amino Transf (AST/SGOT) 11 U/L (15-37) L Alanine Aminotransferase (ALT/SGPT) 10 U/L (12-78) L Alkaline Phosphatase 94 U/L (46-116) Total Creatine Kinase 146 U/L (26-308) Creatine Kinase MB < 0.5 NG/ML (0.0-3.6) Creatine Kinase MB Relative Index 0.3 Troponin I 0.041 ng/mL (0.000-0.056) Total Protein 9.1 G/DL (6.4-8.2) H Albumin 3.6 G/DL (3.4-5.0) Globulin 5.5 g/dL Albumin/Globulin Ratio 0.7 (1.0-2.7) L Urine Color Pale yellow Urine Appearance Clear Urine pH 5 (4.5-8.0) Urine Specific [place] 1.010 (1.005-1.035) Urine Protein 2+ (NEGATIVE) H Urine Glucose (UA) 4+ (NEGATIVE) H Urine Ketones 3+ (NEGATIVE) H Urine Occult Blood 1+ (NEGATIVE) H Urine Nitrite Negative (NEGATIVE) Urine Bilirubin Negative (NEGATIVE) Urine Urobilinogen Normal MG/DL (0.0-1.0) Urine Leukocyte Esterase Negative (NEGATIVE) Urine RBC 2-4 /HPF (0 - 0) H Urine WBC 0-2 /HPF (0 - 0) Urine Squamous Epithelial Cells None /LPF (NONE/OCC) Urine Bacteria Few /HPF (NONE) Arterial Blood pH 7.347 (7.350-7.450) Arterial Blood Partial Pressure CO2 36.6 mmHg (35.0-45.0) Arterial Blood Partial Pressure O2 95.6 mmHg (75.0-100.0) Arterial Blood HCO3 19.6 mmol/L (22.0-26.0) L Arterial Blood Oxygen Saturation 96.6 % (92.0-98.0) Arterial Blood Base Excess -5.3 Jonathan Test Positive Height (Feet): 5 Height (Inches): 10.00 Weight (Pounds): 155 Medications Current Medications Medications (Trade) Dose Ordered Sig/Monalisa Route PRN Reason Start Time Stop Time Status Last Admin Dose Admin Acetaminophen (Tylenol) 650 mg Q4H PRN ORAL Fever/Headache/Mild Pain 01/31/18 11:15 03/02/18 11:14 UNV Acetaminophen (Tylenol) 650 mg Q4H PRN ORAL Fever/Headache/Mild Pain 01/31/18 11:15 03/02/18 11:14 UNV Albuterol Sulfate (Proventil) 2.5 mg Q4H PRN HHN Shortness of Breath 01/31/18 11:15 02/05/18 11:14 UNV Albuterol/ Ipratropium (Albuterol/ Ipratropium) 3 ml Q4HR PRN HHN Shortness of Breath 01/31/18 11:15 02/05/18 11:14 UNV Ascorbic Acid (Vitamin C) 500 mg TWICE A DAY GT 01/31/18 18:00 03/02/18 17:59 UNV Bisacodyl (Dulcolax) 10 mg DAILY PRN RECTAL Constipation 01/31/18 11:15 03/02/18 11:14 UNV Clotrimazole (Lotrimin) 1 applic TWICE A DAY TOPIC 01/31/18 18:00 03/02/18 17:59 UNV Dextrose (Dextrose 50%) 25 ml STAT PRN IV Hypoglycemia 01/31/18 11:15 03/02/18 11:14 UNV Dextrose (Dextrose 50%) 50 ml STAT PRN IV Hypoglycemia 01/31/18 11:15 03/02/18 11:14 UNV Docusate Sodium (Colace) 100 mg TWICE A DAY ORAL 01/31/18 18:00 03/02/18 17:59 UNV Famotidine (Pepcid) 20 mg BEDTIME ORAL 01/31/18 21:00 03/02/18 20:59 UNV Finasteride (Proscar) 5 mg DAILY ORAL 02/01/18 09:00 03/03/18 08:59 UNV Heparin Sodium (Porcine) (Heparin 5000 units/ml) 5,000 units EVERY 12 HOURS SUBQ 01/31/18 21:00 03/02/18 20:59 UNV Insulin Aspart (NovoLOG) BEFORE MEALS AND HS SUBQ 01/31/18 11:30 03/02/18 11:29 UNV Lacosamide (Vimpat) 100 mg EVERY 12 HOURS ORAL 01/31/18 21:00 03/02/18 20:59 UNV Levetiracetam (Keppra) 2,000 mg BID GT 01/31/18 18:00 03/02/18 17:59 UNV Lorazepam (Ativan) 1 mg EVERY 12 HOURS PRN GT For Anxiety 01/31/18 11:15 02/07/18 11:14 UNV Magnesium Hydroxide (Mom) 30 ml BEDTIME GT 01/31/18 21:00 03/02/18 20:59 UNV Magnesium Hydroxide (Mom) 30 ml PRN PRN GT Constipation 01/31/18 11:15 03/02/18 11:14 UNV Metoprolol Tartrate (Lopressor) 25 mg EVERY 12 HOURS GT 01/31/18 21:00 03/02/18 20:59 UNV Risperidone (RisperDAL) 1 mg DAILY GT 02/01/18 09:00 03/03/18 08:59 UNV Senna/Docusate Sodium (Gerda-Colace) 1 tab QHS ORAL 01/31/18 21:00 03/02/18 20:59 UNV Zinc Sulfate (Zinc Sulfate) 220 mg DAILY ORAL 02/01/18 09:00 03/03/18 08:59 UNV Assessment/Plan Problem List: (1) Severe sepsis without septic shock ICD Codes: R65.20 - Severe sepsis without septic shock SNOMED: 52456428 (2) Toxic metabolic encephalopathy ICD Codes: G92 - Toxic encephalopathy SNOMED: 428734923, 41923072 (3) Pneumonia ICD Codes: J18.9 - Pneumonia, unspecified organism SNOMED: 643306008 (4) Feeding by G-tube ICD Codes: Z93.1 - Feeding by G-tube SNOMED: 330503653 (5) cerebral pulsy with advanced mental retardation (6) Seizure disorder, complex partial ICD Codes: G40.209 - Localization-related (focal) (partial) symptomatic epilepsy and epileptic syndromes with complex partial seizures, not intractable , without status epilepticus SNOMED: 138528807 Assessment/Plan iv abx check sputum iv fluids renal w/u anemia w/u dvt prophylaxis Lucie Gracia MD Jan 31, 2018 11:53
--- NOTE | 2018-01-31 12:21 | Infectious Diseases Prog Note ---
Assessment/Plan Assessment/Plan ID consult dictated # [id number] Subjective Allergies: Coded Allergies: NO KNOWN DRUG ALLERGIES (Unverified Allergy, Unknown, 08/22/15) Objective Vital Signs Last 24 Hour Vital Signs Date Time Temp Pulse Resp B/P (MAP) Pulse Ox O2 Delivery O2 Flow Rate FiO2 01/31/18 12:00 109 20 Nasal Cannula 4.0 36 01/31/18 08:00 98.9 109 20 111/64 92 Nasal Cannula 4.0 98.9 01/31/18 08:00 108 01/31/18 06:10 98.2 111 20 109/69 95 Non-Rebreather 100 98.2 01/31/18 06:02 99.9 111 24 118/78 94 Nasal Cannula 3.0 01/31/18 05:14 99.9 115 22 118/76 98 Non-Rebreather 100 99.9 01/31/18 01:29 100.1 01/31/18 01:08 100.5 143 22 132/82 98 Non-Rebreather 100 100.5 01/31/18 01:05 102.0 161 25 122/84 98 Non-Rebreather 100 102.0 01/31/18 00:30 102.0 01/30/18 23:41 102.0 25 122/84 98 Non-Rebreather 100 102.0 01/30/18 23:03 102.0 160 16 131/81 98 Room Air 102.0 Height (Feet): 5 Height (Inches): 10.00 Weight (Pounds): 155 Laboratory Tests Test 01/30/18 23:55 01/31/18 01:20 01/31/18 02:25 01/31/18 05:00 White Blood Count 17.1 K/UL (4.8-10.8) H Red Blood Count 7.21 M/UL (4.70-6.10) H Hemoglobin 16.8 G/DL (14.2-18.0) Hematocrit 53.2 % (42.0-52.0) H Mean Corpuscular Volume 74 FL (80-99) L Mean Corpuscular Hemoglobin 23.3 PG (27.0-31.0) L Mean Corpuscular Hemoglobin Concent 31.6 G/DL (32.0-36.0) L Red Cell Distribution Width 14.5 % (11.6-14.8) Platelet Count 119 K/UL (150-450) L Mean Platelet Volume 9.8 FL (6.5-10.1) Neutrophils (%) (Auto) 83.1 % (45.0-75.0) H Lymphocytes (%) (Auto) 5.3 % (20.0-45.0) L Monocytes (%) (Auto) 10.6 % (1.0-10.0) H Eosinophils (%) (Auto) 0.1 % (0.0-3.0) Basophils (%) (Auto) 1.0 % (0.0-2.0) Prothrombin Time 11.7 SEC (9.30-11.50) H Prothromb Time International Ratio 1.1 (0.9-1.1) Activated Partial Thromboplast Time 26 SEC (23-33) Sodium Level 151 MMOL/L (136-145) H Potassium Level 4.4 MMOL/L (3.5-5.1) Chloride Level 112 MMOL/L (98-107) H Carbon Dioxide Level 20 MMOL/L (21-32) L Anion Gap 19 mmol/L (5-15) H Blood Urea Nitrogen 43 mg/dL (7-18) H Creatinine 2.3 MG/DL (0.55-1.30) H Estimat Glomerular Filtration Rate 29.2 mL/min (>60) Glucose Level 686 MG/DL (74-106) *H Lactic Acid Level 7.90 mmol/L (0.4-2.0) H 3.70 mmol/L (0.66-2.22) H Calcium Level 9.7 MG/DL (8.5-10.1) Total Bilirubin 0.7 MG/DL (0.2-1.0) Aspartate Amino Transf (AST/SGOT) 11 U/L (15-37) L Alanine Aminotransferase (ALT/SGPT) 10 U/L (12-78) L Alkaline Phosphatase 94 U/L (46-116) Total Creatine Kinase 146 U/L (26-308) Creatine Kinase MB < 0.5 NG/ML (0.0-3.6) Creatine Kinase MB Relative Index 0.3 Troponin I 0.041 ng/mL (0.000-0.056) Total Protein 9.1 G/DL (6.4-8.2) H Albumin 3.6 G/DL (3.4-5.0) Globulin 5.5 g/dL Albumin/Globulin Ratio 0.7 (1.0-2.7) L Urine Color Pale yellow Urine Appearance Clear Urine pH 5 (4.5-8.0) Urine Specific [place] 1.010 (1.005-1.035) Urine Protein 2+ (NEGATIVE) H Urine Glucose (UA) 4+ (NEGATIVE) H Urine Ketones 3+ (NEGATIVE) H Urine Occult Blood 1+ (NEGATIVE) H Urine Nitrite Negative (NEGATIVE) Urine Bilirubin Negative (NEGATIVE) Urine Urobilinogen Normal MG/DL (0.0-1.0) Urine Leukocyte Esterase Negative (NEGATIVE) Urine RBC 2-4 /HPF (0 - 0) H Urine WBC 0-2 /HPF (0 - 0) Urine Squamous Epithelial Cells None /LPF (NONE/OCC) Urine Bacteria Few /HPF (NONE) Arterial Blood pH 7.347 (7.350-7.450) Arterial Blood Partial Pressure CO2 36.6 mmHg (35.0-45.0) Arterial Blood Partial Pressure O2 95.6 mmHg (75.0-100.0) Arterial Blood HCO3 19.6 mmol/L (22.0-26.0) L Arterial Blood Oxygen Saturation 96.6 % (92.0-98.0) Arterial Blood Base Excess -5.3 Jonathan Test Positive Current Medications Medications (Trade) Dose Ordered Sig/Monalisa Route PRN Reason Start Time Stop Time Status Last Admin Dose Admin Acetaminophen (Tylenol) 650 mg Q4H PRN ORAL Fever/Headache/Mild Pain 01/31/18 11:15 03/02/18 11:14 Albuterol/ Ipratropium (Albuterol/ Ipratropium) 3 ml Q4H PRN HHN Shortness of Breath 01/31/18 11:15 02/05/18 11:14 Ascorbic Acid (Vitamin C) 500 mg TWICE A DAY GT 01/31/18 18:00 03/02/18 17:59 Bisacodyl (Dulcolax) 10 mg DAILYPRN PRN RECTAL Constipation 01/31/18 11:15 03/02/18 11:14 Cefepime HCl 1 gm/ Dextrose 55 ml @ 110 mls/hr EVERY 12 HOURS IVPB 01/31/18 11:45 02/07/18 11:44 UNV Clotrimazole (Lotrimin) 1 applic TWICE A DAY TOPIC 01/31/18 18:00 03/02/18 17:59 UNV Dextrose (Dextrose 50%) 25 ml STAT PRN IV Hypoglycemia 01/31/18 11:15 03/02/18 11:14 Dextrose (Dextrose 50%) 50 ml STAT PRN IV Hypoglycemia 01/31/18 11:15 03/02/18 11:14 Docusate Sodium (Colace) 100 mg TWICE A DAY GT 01/31/18 18:00 03/02/18 17:59 Famotidine (Pepcid) 20 mg BEDTIME ORAL 01/31/18 21:00 03/02/18 20:59 Finasteride (Proscar) 5 mg DAILY ORAL 02/01/18 09:00 03/03/18 08:59 Heparin Sodium (Porcine) (Heparin 5000 units/ml) 5,000 units EVERY 12 HOURS SUBQ 01/31/18 21:00 03/02/18 20:59 Insulin Aspart (NovoLOG) BEFORE MEALS AND HS SUBQ 01/31/18 16:30 03/02/18 16:29 Lacosamide (Vimpat) 100 mg EVERY 12 HOURS ORAL 01/31/18 21:00 03/02/18 20:59 Levalbuterol HCl (Xopenex) 1.25 mg TIDRT HHN 01/31/18 13:00 02/05/18 12:59 Levetiracetam (Keppra) 2,000 mg BID GT 01/31/18 18:00 03/02/18 17:59 Lorazepam (Ativan) 1 mg Q12H PRN GT For Anxiety 01/31/18 11:15 02/07/18 11:14 Magnesium Hydroxide (Mom) 30 ml BEDTIME GT 01/31/18 21:00 03/02/18 20:59 Magnesium Hydroxide (Mom) 30 ml DAILYPRN PRN GT Constipation 01/31/18 11:15 03/02/18 11:14 Metoprolol Tartrate (Lopressor) 25 mg EVERY 12 HOURS GT 01/31/18 21:00 03/02/18 20:59 Promethazine HCl/ Codeine (Phenergan with Codeine) 5 ml Q4H PRN ORAL For Cough 01/31/18 11:45 03/02/18 11:44 Risperidone (RisperDAL) 1 mg DAILY GT 02/01/18 09:00 03/03/18 08:59 Senna/Docusate Sodium (Gerda-Colace) 1 tab QHS ORAL 01/31/18 21:00 03/02/18 20:59 UNV Zinc Sulfate (Zinc Sulfate) 220 mg DAILY GT 02/01/18 09:00 03/03/18 08:59 Sanjay Thomas MD Jan 31, 2018 12:21
[2018-01-31] MEDS: Levalbuterol Inh UD 1.25mg/0.5ml HHN SCH ×2 (13:11→20:21)
--- NOTE | 2018-01-31 14:14 | Cardiology Report ---
APPROVED REPORT EKG Measurement Heart [id number] [place] [id number] Sinus tachycardia Septal infarct, age undetermined T wave abnormality, consider inferior ischemia Abnormal ECG
--- NOTE | 2018-01-31 17:00 | Consultation ---
DATE OF CONSULTATION: 01/31/2018 CONSULTING PHYSICIAN: Michelle Stanley M.D. REFERRING PHYSICIAN: Amy Martínez M.D., covering for Dr. Donaldo Johnson REASON FOR CONSULTATION: Hypernatremia, electrolyte abnormality, and abnormal renal function. HISTORY OF PRESENT ILLNESS: The patient is an unfortunate 62-year-old male with multiple medical problems, including history of seizure disorder, history of CVA, history of Parkinson disease, history of cerebral palsy, history of hypertension, COPD, history of diabetes with possible diabetic nephropathy, history of dysphagia and G-tube placement who was brought into [facility] from a long-term for evaluation of worsening of the mental status. In the ER, the patient was found to have a sodium of 151, also the glucose was around 600. The patient was found to be septic and started on broad-spectrum antibiotics and multiple boluses of IV fluids. His vital signs, he was also found to have temperature of 102. His pulse was as high as 160, and blood pressure was borderline at 131/80. The patient resuscitated with IV antibiotics. He was consequently transferred to monitored bed. I was called for management of renal disease and electrolyte imbalance. Unfortunately, the patient is unable to provide meaningful history for me. So, I was called for so most of my history obtained through reviewing the information from the emergency room and from long-term. PAST MEDICAL HISTORY: 1. History of diabetes. 2. History of hypertension. 3. History of CVA. 4. History of TIA. 5. History of cerebral palsy. 6. History of aphasia. 7. History of dysphagia, status post PEG placement. 8. History of decubitus ulcer. 9. History of hypertension. 10. History of COPD. MEDICATIONS: At long-term are including, 1. Albuterol and Atrovent p.r.n. shortness of breath. 2. Colace 100 p.o. b.i.d. 3. Zocor 10 mg p.o. p.r.n. 4. Finasteride 5 mg p.o. daily. 5. Glucagon p.r.n. 6. Keppra 200 via G-tube every 12 hours. 7. Lacosamide 100 mg daily. 8. Milk of magnesia p.r.n. 9. MVI 1 tablet p.o. daily. 10. Vitamin C 500 mg p.o. daily. 11. Valproic acid 750 daily. 12. Tylenol 650 mg q.6 h. p.r.n. pain. 13. 5 mg p.r.n. agitation. FAMILY HISTORY: Noncontributory. PAST SURGICAL HISTORY: History of PEG placement. REVIEW OF SYSTEMS: Unable to obtain due to the patient's condition and mental status. PHYSICAL EXAMINATION: VITAL SIGNS: Currently, the patient has a temperature of 100.5, blood pressure 132/82, pulse rate is 143, respiratory rate of 18. HEAD AND NECK: No JVP. No LAD. No thyromegaly. Extraocular movements intact. Pupils are reactive to light and accommodation. LUNGS: Decreased breathing sounds on both sides. CARDIAC: Regular rate and rhythm. S1 and S2. No murmur. No rub. ABDOMEN: Soft, nontender, and nondistended. EXTREMITIES: Trace edema. No clubbing. No cyanosis. LABORATORY STUDIES: Sodium 141, potassium 4.4, chloride 112, bicarbonate 20, BUN of 42, creatinine of 2.3, glucose of 686, calcium is 9.7, total bilirubin of 0.3, AST of 11, ALT of 10, total protein of 9.1, albumin of 3.6. Guaiac within normal limits. UA revealed specific gravity of 1.010, pH of 5, protein 2+, glucose 4+, ketones 3+, blood 1+, rbc of 2 to 3. CBC revealed WBC count of 17,000, hemoglobin of 16.8, hematocrit of 53, platelet count of 119. ASSESSMENT: 1. Hypernatremia. 2. Acute renal failure. 3. Chronic kidney disease. 4. Possible diabetic nephropathy. 5. Uncontrolled diabetes. 6. Severe anion gap acidosis with lactic acid of 2.9. 7. Sepsis. 8. Positive urinary tract infection. PLAN: Plan for the patient is to obtain a random urine protein-creatinine ratio to calculate the proteinuria, check the urine sodium and creatinine to calculate fractional excretion of sodium. Start the patient on quarter normal saline, free water via G-tube. Restart the patient on home medications. Broad-spectrum antibiotics. Again, i would like to thank, Dr. Martínez, for allowing me to participate in the care of this patient. Michelle Stanley M.D. DR: ERIK JOB#: [id number] CC:
[2018-01-31] MEDS: NovoLOG Insulin Flexpen SUBQ SCH ×3 (17:27→21:05)
[2018-01-31] MEDS: levETIRAcetam 500mg/5ml Liquid GT SCH (18:04)
[2018-01-31] MEDS: Ascorbic Acid 500mg tab GT SCH (18:04)
[2018-01-31] MEDS: Docusate 100mg/10ml Liq GT SCH (18:04)
--- NOTE | 2018-01-31 19:37 | Cardiology Progress Note ---
Assessment/Plan Assessment/Plan The patient is seen and examined, full consult note will be dictated. Objective Last 24 Hour Vital Signs Date Time Temp Pulse Resp B/P (MAP) Pulse Ox O2 Delivery O2 Flow Rate FiO2 01/31/18 17:05 Venturi Mask 15.0 01/31/18 16:00 98.1 115 24 114/76 (89) 97 98.1 01/31/18 16:00 121 01/31/18 13:35 Venturi Mask 10.0 45 01/31/18 13:12 107 22 89 Venturi Mask 10.0 45 01/31/18 13:06 36 01/31/18 13:06 108 20 87 Nasal Cannula 4.0 36 01/31/18 12:00 109 01/31/18 12:00 109 20 Nasal Cannula 4.0 36 01/31/18 12:00 97.9 109 107/62 (77) 97.9 01/31/18 08:00 98.9 109 20 111/64 92 Nasal Cannula 4.0 98.9 01/31/18 08:00 108 01/31/18 06:10 98.2 111 20 109/69 95 Non-Rebreather 100 98.2 01/31/18 06:02 99.9 111 24 118/78 94 Nasal Cannula 3.0 01/31/18 05:14 99.9 115 22 118/76 98 Non-Rebreather 100 99.9 01/31/18 01:29 100.1 01/31/18 01:08 100.5 143 22 132/82 98 Non-Rebreather 100 100.5 01/31/18 01:05 102.0 161 25 122/84 98 Non-Rebreather 100 102.0 01/31/18 00:30 102.0 01/30/18 23:41 102.0 25 122/84 98 Non-Rebreather 100 102.0 01/30/18 23:03 102.0 160 16 131/81 98 Room Air 102.0 Intake and Output 01/30/18 01/31/18 19:00 07:00 Intake Total 4505 ml Balance 4505 ml Intake Free Water 100 ml IV Total 4405 ml Laboratory Tests Test 01/30/18 23:55 01/31/18 01:20 01/31/18 02:25 01/31/18 05:00 White Blood Count 17.1 K/UL (4.8-10.8) H Red Blood Count 7.21 M/UL (4.70-6.10) H Hemoglobin 16.8 G/DL (14.2-18.0) Hematocrit 53.2 % (42.0-52.0) H Mean Corpuscular Volume 74 FL (80-99) L Mean Corpuscular Hemoglobin 23.3 PG (27.0-31.0) L Mean Corpuscular Hemoglobin Concent 31.6 G/DL (32.0-36.0) L Red Cell Distribution Width 14.5 % (11.6-14.8) Platelet Count 119 K/UL (150-450) L Mean Platelet Volume 9.8 FL (6.5-10.1) Neutrophils (%) (Auto) 83.1 % (45.0-75.0) H Lymphocytes (%) (Auto) 5.3 % (20.0-45.0) L Monocytes (%) (Auto) 10.6 % (1.0-10.0) H Eosinophils (%) (Auto) 0.1 % (0.0-3.0) Basophils (%) (Auto) 1.0 % (0.0-2.0) Prothrombin Time 11.7 SEC (9.30-11.50) H Prothromb Time International Ratio 1.1 (0.9-1.1) Activated Partial Thromboplast Time 26 SEC (23-33) Sodium Level 151 MMOL/L (136-145) H Potassium Level 4.4 MMOL/L (3.5-5.1) Chloride Level 112 MMOL/L (98-107) H Carbon Dioxide Level 20 MMOL/L (21-32) L Anion Gap 19 mmol/L (5-15) H Blood Urea Nitrogen 43 mg/dL (7-18) H Creatinine 2.3 MG/DL (0.55-1.30) H Estimat Glomerular Filtration Rate 29.2 mL/min (>60) Glucose Level 686 MG/DL (74-106) *H Lactic Acid Level 7.90 mmol/L (0.4-2.0) H 3.70 mmol/L (0.66-2.22) H Calcium Level 9.7 MG/DL (8.5-10.1) Total Bilirubin 0.7 MG/DL (0.2-1.0) Aspartate Amino Transf (AST/SGOT) 11 U/L (15-37) L Alanine Aminotransferase (ALT/SGPT) 10 U/L (12-78) L Alkaline Phosphatase 94 U/L (46-116) Total Creatine Kinase 146 U/L (26-308) Creatine Kinase MB < 0.5 NG/ML (0.0-3.6) Creatine Kinase MB Relative Index 0.3 Troponin I 0.041 ng/mL (0.000-0.056) Total Protein 9.1 G/DL (6.4-8.2) H Albumin 3.6 G/DL (3.4-5.0) Globulin 5.5 g/dL Albumin/Globulin Ratio 0.7 (1.0-2.7) L Urine Color Pale yellow Urine Appearance Clear Urine pH 5 (4.5-8.0) Urine Specific [place] 1.010 (1.005-1.035) Urine Protein 2+ (NEGATIVE) H Urine Glucose (UA) 4+ (NEGATIVE) H Urine Ketones 3+ (NEGATIVE) H Urine Occult Blood 1+ (NEGATIVE) H Urine Nitrite Negative (NEGATIVE) Urine Bilirubin Negative (NEGATIVE) Urine Urobilinogen Normal MG/DL (0.0-1.0) Urine Leukocyte Esterase Negative (NEGATIVE) Urine RBC 2-4 /HPF (0 - 0) H Urine WBC 0-2 /HPF (0 - 0) Urine Squamous Epithelial Cells None /LPF (NONE/OCC) Urine Bacteria Few /HPF (NONE) Arterial Blood pH 7.347 (7.350-7.450) Arterial Blood Partial Pressure CO2 36.6 mmHg (35.0-45.0) Arterial Blood Partial Pressure O2 95.6 mmHg (75.0-100.0) Arterial Blood HCO3 19.6 mmol/L (22.0-26.0) L Arterial Blood Oxygen Saturation 96.6 % (92.0-98.0) Arterial Blood Base Excess -5.3 Jonathan Test Positive Sage Banks MD Jan 31, 2018 19:37
--- NOTE | 2018-01-31 20:30 | Consultation ---
DATE OF CONSULTATION: 01/31/2018 INFECTIOUS DISEASE CONSULTATION CONSULTING PHYSICIAN: Sanjay Thomas M.D. PRIMARY ATTENDING PHYSICIAN: Donaldo Johnson D.O. REFERRING PHYSICIAN: Amy Martínez M.D. REASON FOR CONSULT: Sepsis. HISTORY OF PRESENT ILLNESS: The patient is a 62-year-old male, admitted this morning from a intermediate facility because of altered mental status. The patient had also fever of 102 degrees in the ER, had pulse of 116, altered mental status was for one day. He had acidosis, acute renal failure and hyperglycemia with a blood glucose of 686. He is not a source of history. PAST MEDICAL HISTORY: Cerebral palsy and severe mental retardation, dysphagia, status post G-tube placement, BPH, diabetes mellitus, hypertension, and seizure disorder. ALLERGIES: No known drug allergy. MEDICATIONS: Getting Proscar, Risperdal, zinc, famotidine, heparin, lacosamide, milk of magnesia, metoprolol, senna, aspart, vitamin C, clotrimazole, Colace, Keppra, insulin, levalbuterol, cefepime, promethazine, Tylenol, bisacodyl, lorazepam, albuterol and ipratropium inhaler. SOCIAL HISTORY: [facility] resident with poor mental and functional status. REVIEW OF SYSTEMS: None obtainable. PHYSICAL EXAMINATION: GENERAL: At the time of examination, no acute distress. VITAL SIGNS: Temperature 98.6 degrees, pulse 109, and blood pressure 111/64. HEAD AND NECK: [place] conjunctivae. Has right internal jugular central line. HEART: Tachycardic. LUNGS: Some coarse sounds bilaterally. ABDOMEN: Soft. G-tube feeding. Nontender. EXTREMITY: He has no edema. NEUROLOGIC: Nonresponsive. LABORATORY AND DIAGNOSTIC DATA: Laboratories, WBC 17.1, hemoglobin 16.8, hematocrit 53.2 and platelet count 119. Sodium 151, potassium 4.4, chloride 112, bicarbonate 20, BUN 43, creatinine 2.3, and glucose is 686. Lactic acid was 7.9, came to 3.7. Chest x-ray, no acute disease. UA, wbc's 0 to 2, leukocyte esterase negative and nitrite negative. IMPRESSION: Sepsis with fever, lactic acidosis, cannot is rule out an early pneumonia. The patient had developed acute renal failure and uncontrolled diabetes mellitus. He has mental retardation and cerebral palsy. He has dysphagia status post G-tube and has hypernatremia. RECOMMENDATION: We will continue cefepime. We will follow up the culture. We will repeat chest x-ray in 1 or 2 days. If tests were negative, we will consider abdominal ultrasound to rule out intra-abdominal infection. At the end of my exam, I thank Dr. Martínez for involving me in the care of this patient. Sanjay Thomas M.D. DR: BILLY JOB#: [id number] CC:
[2018-01-31] MEDS: Heparin 5000 units/ml inj SUBQ SCH (21:00)
[2018-01-31] MEDS ORDERED: Docusate Sod/Senna tab ORAL SCH (21:00)
[2018-01-31] MEDS: Metoprolol 25mg tab GT SCH (21:00)
[2018-01-31] MEDS: Milk of Magnesia 30ml Ud GT SCH (21:03)
[2018-01-31] MEDS: Lacosamide 100 MG TABLET ORAL SCH (21:03)
[2018-01-31] MEDS: Levemir Flexpen SUBQ SCH (21:04)
--- NOTE | 2018-01-31 21:30 | History and Physical Report ---
DATE OF ADMISSION: 01/31/2018 I am covering for Dr. Donaldo Johnson. This is Dr. Donaldo Johnson's patient. HISTORY OF PRESENT ILLNESS: The patient is admitted for sepsis and pneumonia. The patient is lethargic and cannot obtain any history at this point. The patient also has basically elevated WBC and a very hemoconcentrated hemoglobin, most likely due to acute renal failure. The patient also had elevated blood sugar of 686 and sodium of 151, BUN of 22, and creatinine 2.3. So, the patient is being admitted for hypernatremia, dehydration, lethargy, nonketotic hyperglycemia, acute renal failure, severe dehydration, sepsis, pneumonia, and again cannot obtain any history at this point. PAST MEDICAL HISTORY: Significant for psychosis, hypertension, seizure disorder, NIDDM, BPH, GERD, constipation, history of paraplegia of both lower extremity, malnutrition, cerebral palsy, and advanced mental retardation. PAST SURGICAL HISTORY: PEG. MEDICATIONS: Finasteride, Pepcid, Colace, Keppra, metoprolol, multivitamin, omeprazole, ranitidine, risperidone, and Senokot. ALLERGIES: No known allergies. FAMILY HISTORY: Unable to obtain. SOCIAL HISTORY: Unable to obtain. REVIEW OF SYSTEMS: Unable to obtain. PHYSICAL EXAMINATION: GENERAL: The patient is lethargic. VITAL SIGNS: Temperature 98.2, pulse is 111, and blood pressure 109/69. HEENT: PERRLA. NECK: Supple. CHEST: Clear to auscultation. CARDIOVASCULAR: Tachycardic. ABDOMEN: Distended, however, soft. Positive bowel sounds. SKIN: The patient does have ecchymosis. NEUROLOGIC: Cannot obtain neurological exam. The patient is lethargic. Responsive to noxious stimuli. Barely grimaces. LABORATORY DATA: WBC of 17.1, hemoglobin of 16.8, and platelets of 119,000. Sodium 151, potassium 4.4, BUN of 43, creatinine 3.2, and glucose of 686. AST of 11, ALT of 10, and alkaline phosphatase of 94. ASSESSMENT AND PLAN: 1. Altered mental status. 2. Hypernatremia. 3. Severe dehydration. 4. Acute renal failure. 5. Nonketotic hyperglycemia. 6. Lactic acidosis. 7. Pneumonia and sepsis. PLAN: I have asked Dr. Gracia, Dr. Thomas, Dr. Stanley, Dr. Schmitt, and Dr. Banks to see the patient for the above-mentioned diagnoses and treatment. Amy Martínez M.D. DR: RENAY JOB#: [id number] CC:
[2018-02-01] VITALS: BP 107/71
[2018-02-01 03:56] VITALS: BP 143/74
[2018-02-01 06:03] LABS: BASOPHILS % (AUTO) 0.7 % (0.0-2.0); EOSINOPHILS % (AUTO) 0.1 % (0.0-3.0); HEMATOCRIT 44.1 % (42.0-52.0); HEMOGLOBIN 13.5 G/DL (14.2-18.0); LYMPHOCYTES % (AUTO) 13.8 % (20.0-45.0); MEAN CORPUSCULAR VOLUME 74 FL (80-99); MONOCYTES % (AUTO) 7.7 % (1.0-10.0); NEUTROPHILS % (AUTO) 77.6 % (45.0-75.0); PLATELET COUNT 138 K/UL (150-450); RED BLOOD COUNT 5.99 M/UL (4.70-6.10); RED CELL DISTRIBUTION WIDTH 14.6 % (11.6-14.8); WHITE BLOOD COUNT 13.8 K/UL (4.8-10.8)
[2018-02-01] MEDS: NovoLOG Insulin Flexpen SUBQ SCH ×7 (06:06→21:22)
[2018-02-01 06:15] LABS: ALANINE AMINOTRANSFERASE 15 U/L (12-78); ALBUMIN 2.7 G/DL (3.4-5.0); ALBUMIN/GLOBULIN RATIO 0.7 (1.0-2.7); ALKALINE PHOSPHATASE 72 U/L (46-116); ANION GAP 7 mmol/L (5-15); ASPARTATE AMINO TRANSFERASE 22 U/L (15-37); BILIRUBIN,TOTAL 0.5 MG/DL (0.2-1.0); BLOOD UREA NITROGEN 28 mg/dL (7-18); CARBON DIOXIDE 27 MMOL/L (21-32); CHLORIDE 122 MMOL/L (98-107); PHOSPHORUS 1.5 MG/DL (2.5-4.9); POTASSIUM 3.5 MMOL/L (3.5-5.1); SODIUM 156 MMOL/L (136-145)
[2018-02-01] MEDS: Levalbuterol Inh UD 1.25mg/0.5ml HHN SCH ×3 (07:03→19:03)
[2018-02-01 08:00] VITALS: BP 113/67
[2018-02-01] MEDS ORDERED: Cefepime HCl 1 GM in D5W 55 ML IVPB SCH (09:00)
[2018-02-01] MEDS ORDERED: Sterile Water Irrig 1000ml IRRIG ONE (09:00)
[2018-02-01] MEDS: Docusate 100mg/10ml Liq GT SCH ×2 (09:43→17:24)
[2018-02-01] MEDS: Heparin 5000 units/ml inj SUBQ SCH ×2 (09:47→21:21)
[2018-02-01] MEDS: Ascorbic Acid 500mg tab GT SCH ×2 (09:48→17:23)
[2018-02-01] MEDS: Metoprolol 25mg tab GT SCH ×2 (09:48→21:00)
[2018-02-01] MEDS: Zinc Sulfate 220mg cap GT SCH (09:49)
[2018-02-01] MEDS: Lacosamide 100 MG TABLET ORAL SCH ×2 (09:49→21:20)
[2018-02-01] MEDS: levETIRAcetam 500mg/5ml Liquid GT SCH ×2 (09:49→17:23)
--- NOTE | 2018-02-01 11:28 | Pulmonology Progress Note ---
Assessment/Plan Problems: (1) Severe sepsis without septic shock (2) Toxic metabolic encephalopathy (3) Pneumonia (4) Feeding by G-tube (5) cerebral pulsy with advanced mental retardation (6) Seizure disorder, complex partial Assessment/Plan improving respiratory treatment check electrolytes all reviewed cardio and ID appreciated pt/ot tolerating diet Subjective ROS Limited/Unobtainable: No Constitutional: Reports: no symptoms HEENT: Repors: no symptoms Respiratory: Reports: no symptoms Allergies: Coded Allergies: NO KNOWN DRUG ALLERGIES (Unverified Allergy, Unknown, 08/22/15) Objective Last 24 Hour Vital Signs Date Time Temp Pulse Resp B/P (MAP) Pulse Ox O2 Delivery O2 Flow Rate FiO2 02/01/18 09:48 108 113/67 02/01/18 08:00 98.6 105 22 113/67 (82) 96 98.6 02/01/18 08:00 108 02/01/18 07:09 105 20 97 Venturi Mask 14.0 55 02/01/18 07:04 105 20 97 Venturi Mask 14.0 55 02/01/18 07:00 Venturi Mask 14.0 55 02/01/18 04:00 115 02/01/18 04:00 Venturi Mask 15.0 02/01/18 03:56 97.9 113 22 143/74 (97) 94 97.9 02/01/18 00:00 97.4 111 20 107/71 (83) 97 97.4 02/01/18 00:00 117 02/01/18 00:00 Venturi Mask 15.0 01/31/18 21:00 119 102/74 01/31/18 20:34 119 25 94 Venturi Mask 14.0 55 01/31/18 20:21 Venturi Mask 14.0 55 01/31/18 20:21 114 25 Venturi Mask 14.0 55 01/31/18 20:21 114 25 96 Venturi Mask 14.0 55 01/31/18 20:00 Venturi Mask 15.0 01/31/18 20:00 97.7 120 22 102/74 (83) 95 97.7 01/31/18 20:00 118 01/31/18 17:05 Venturi Mask 15.0 01/31/18 16:00 98.1 115 24 114/76 (89) 97 98.1 01/31/18 16:00 121 7/6/18 13:35 Venturi Mask 10.0 45 01/31/18 13:12 107 22 89 Venturi Mask 10.0 45 01/31/18 13:06 36 01/31/18 13:06 108 20 87 Nasal Cannula 4.0 36 01/31/18 12:00 109 01/31/18 12:00 109 20 Nasal Cannula 4.0 36 01/31/18 12:00 97.9 109 107/62 (77) 97.9 Intake and Output 01/31/18 02/01/18 19:00 07:00 Intake Total 770 ml 1960 ml Output Total 1500 ml 600 ml Balance -730 ml 1360 ml Intake Free Water 500 ml 750 ml IV Total 50 ml 600 ml Tube Feeding 220 ml 610 ml Output Urine Total 1500 ml 600 ml # Bowel Movements 2 General Appearance: WD/WN HEENT: normocephalic Respiratory/Chest: chest wall non-tender Cardiovascular: normal peripheral pulses, normal rate Abdomen: normal bowel sounds, soft, non tender Extremities: no cyanosis, no clubbing Neurologic/Psychiatric: yoga coordinator II-XII grossly normal Microbiology Date/Time Source Procedure Growth Status 01/30/18 23:55 Blood Blood Culture - Preliminary NO GROWTH AFTER 24 HOURS Resulted 01/30/18 23:55 Blood Blood Culture - Preliminary NO GROWTH AFTER 24 HOURS Resulted 01/31/18 13:30 Sputum Gram Stain - Final Resulted 01/31/18 13:30 Sputum Sputum Culture Pending Resulted Laboratory Tests 02/01/18 05:37: White Blood Count 13.8H, Red Blood Count 5.99, Hemoglobin 13.5L, Hematocrit 44.1 , Mean Corpuscular Volume 74L, Mean Corpuscular Hemoglobin 22.5L, Mean Corpuscular Hemoglobin Concent 30.6L, Red Cell Distribution Width 14.6, Platelet Count 138L, Mean Platelet Volume 10.3H, Neutrophils (%) (Auto) 77.6H, Lymphocytes (%) (Auto) 13.8L, Monocytes (%) (Auto) 7.7, Eosinophils (%) (Auto) 0.1, Basophils (%) (Auto) 0.7, Erythrocyte Sedimentation Rate [Pending], Sodium Level 156H, Potassium Level 3.5, Chloride Level 122H, Carbon Dioxide Level 27, Anion Gap 7, Blood Urea Nitrogen 28H, Creatinine 1.0#, Estimat Glomerular Filtration Rate > 60, Glucose Level 283#H, Calcium Level 9.0, Phosphorus Level 1.5L, Magnesium Level 2.4, Total Bilirubin 0.5, Aspartate Amino Transf (AST/SGOT ) 22, Alanine Aminotransferase (ALT/SGPT) 15, Alkaline Phosphatase 72, C- Reactive Protein, Quantitative 19.6H, Total Protein 6.8, Albumin 2.7L, Globulin 4.1, Albumin/Globulin Ratio 0.7L Current Medications Medications (Trade) Dose Ordered Sig/Monalisa Route PRN Reason Start Time Stop Time Status Last Admin Dose Admin Acetaminophen (Tylenol) 650 mg Q4H PRN ORAL Fever/Headache/Mild Pain 01/31/18 11:15 03/02/18 11:14 Albuterol/ Ipratropium (Albuterol/ Ipratropium) 3 ml Q4H PRN HHN Shortness of Breath 01/31/18 11:15 02/05/18 11:14 Ascorbic Acid (Vitamin C) 500 mg TWICE A DAY GT 01/31/18 18:00 03/02/18 17:59 02/01/18 09:48 Bisacodyl (Dulcolax) 10 mg DAILYPRN PRN RECTAL Constipation 01/31/18 11:15 03/02/18 11:14 Cefepime HCl 1 gm/ Dextrose 55 ml @ 110 mls/hr DAILY IVPB 02/01/18 09:00 02/08/18 08:59 02/01/18 09:50 Chlorhexidine Gluconate (Palak-Hex 2%) 1 applic DAILY@1999 TOPIC 02/01/18 20:00 03/03/18 19:59 Clotrimazole (Lotrimin) 1 applic TWICE A DAY TOPIC 01/31/18 18:00 03/02/18 17:59 UNV Dextrose 1,000 ml @ 50 mls/hr Q20H IV 01/31/18 17:45 03/02/18 17:44 01/31/18 18:04 Dextrose (Dextrose 50%) 25 ml STAT PRN IV Hypoglycemia 01/31/18 15:30 03/02/18 15:29 Dextrose (Dextrose 50%) 50 ml STAT PRN IV Hypoglycemia 01/31/18 15:30 03/02/18 15:29 Docusate Sodium (Colace) 100 mg TWICE A DAY GT 01/31/18 18:00 03/02/18 17:59 02/01/18 09:43 Famotidine (Pepcid) 20 mg BEDTIME ORAL 01/31/18 21:00 03/02/18 20:59 01/31/18 21:03 Finasteride (Proscar) 5 mg DAILY ORAL 02/01/18 09:00 03/03/18 08:59 02/01/18 09:43 Heparin Sodium (Porcine) (Heparin 5000 units/ml) 5,000 units EVERY 12 HOURS SUBQ 01/31/18 21:00 03/02/18 20:59 02/01/18 09:47 Insulin Aspart (NovoLOG) BEFORE MEALS AND HS SUBQ 01/31/18 16:30 03/02/18 16:29 02/01/18 06:06 Insulin Aspart (NovoLOG) 8 units NOVOTIAC SUBQ 01/31/18 16:50 03/02/18 16:49 02/01/18 06:06 Insulin Detemir (Levemir) 24 units BEDTIME SUBQ 01/31/18 21:00 03/02/18 20:59 01/31/18 21:04 Lacosamide (Vimpat) 100 mg EVERY 12 HOURS ORAL 01/31/18 21:00 03/02/18 20:59 02/01/18 09:49 Levalbuterol HCl (Xopenex) 1.25 mg TIDRT HHN 01/31/18 13:00 02/05/18 12:59 02/01/18 07:03 Levetiracetam (Keppra) 2,000 mg BID GT 01/31/18 18:00 03/02/18 17:59 02/01/18 09:49 Lorazepam (Ativan) 1 mg Q12H PRN GT For Anxiety 01/31/18 11:15 02/07/18 11:14 Magnesium Hydroxide (Mom) 30 ml BEDTIME GT 01/31/18 21:00 03/02/18 20:59 01/31/18 21:03 Magnesium Hydroxide (Mom) 30 ml DAILYPRN PRN GT Constipation 01/31/18 11:15 03/02/18 11:14 Metoprolol Tartrate (Lopressor) 25 mg EVERY 12 HOURS GT 01/31/18 21:00 03/02/18 20:59 02/01/18 09:48 Promethazine HCl/ Codeine (Phenergan with Codeine) 5 ml Q4H PRN ORAL For Cough 01/31/18 11:45 03/02/18 11:44 Risperidone (RisperDAL) 1 mg DAILY GT 02/01/18 09:00 03/03/18 08:59 02/01/18 09:49 Zinc Sulfate (Zinc Sulfate) 220 mg DAILY GT 02/01/18 09:00 03/03/18 08:59 02/01/18 09:49 Lucie Gracai MD Feb 01, 2018 11:28
--- NOTE | 2018-02-01 11:34 | Nephrology Progress Note ---
Assessment/Plan Assessment 1. Hypernatremia. 2. Acute renal failure. 3. Chronic kidney disease. 4. Possible diabetic nephropathy. 5. Uncontrolled diabetes. 6. Severe anion gap acidosis with lactic acid of 2.9. 7. Sepsis. 8. Positive urinary tract infection. Plan continue free water continue d5w monitoring renal function avoid NSAID replace electrolyte as need it Subjective ROS Limited/Unobtainable: Yes Objective Objective Last 24 Hour Vital Signs Date Time Temp Pulse Resp B/P (MAP) Pulse Ox O2 Delivery O2 Flow Rate FiO2 02/01/18 09:48 108 113/67 02/01/18 08:00 98.6 105 22 113/67 (82) 96 98.6 02/01/18 08:00 108 02/01/18 07:09 105 20 97 Venturi Mask 14.0 55 02/01/18 07:04 105 20 97 Venturi Mask 14.0 55 02/01/18 07:00 Venturi Mask 14.0 55 02/01/18 04:00 115 02/01/18 04:00 Venturi Mask 15.0 02/01/18 03:56 97.9 113 22 143/74 (97) 94 97.9 02/01/18 00:00 97.4 111 20 107/71 (83) 97 97.4 02/01/18 00:00 117 02/01/18 00:00 Venturi Mask 15.0 01/31/18 21:00 119 102/74 01/31/18 20:34 119 25 94 Venturi Mask 14.0 55 01/31/18 20:21 Venturi Mask 14.0 55 01/31/18 20:21 114 25 Venturi Mask 14.0 55 01/31/18 20:21 114 25 96 Venturi Mask 14.0 55 01/31/18 20:00 Venturi Mask 15.0 01/31/18 20:00 97.7 120 22 102/74 (83) 95 97.7 01/31/18 20:00 118 01/31/18 17:05 Venturi Mask 15.0 01/31/18 16:00 98.1 115 24 114/76 (89) 97 98.1 01/31/18 16:00 121 01/31/18 13:35 Venturi Mask 10.0 45 01/31/18 13:12 107 22 89 Venturi Mask 10.0 45 01/31/18 13:06 36 01/31/18 13:06 108 20 87 Nasal Cannula 4.0 36 01/31/18 12:00 109 01/31/18 12:00 109 20 Nasal Cannula 4.0 36 01/31/18 12:00 97.9 109 107/62 (77) 97.9 Intake and Output 01/31/18 02/01/18 19:00 07:00 Intake Total 770 ml 1960 ml Output Total 1500 ml 600 ml Balance -730 ml 1360 ml Intake Free Water 500 ml 750 ml IV Total 50 ml 600 ml Tube Feeding 220 ml 610 ml Output Urine Total 1500 ml 600 ml # Bowel Movements 2 Laboratory Tests 02/01/18 05:37: White Blood Count 13.8H, Red Blood Count 5.99, Hemoglobin 13.5L, Hematocrit 44.1 , Mean Corpuscular Volume 74L, Mean Corpuscular Hemoglobin 22.5L, Mean Corpuscular Hemoglobin Concent 30.6L, Red Cell Distribution Width 14.6, Platelet Count 138L, Mean Platelet Volume 10.3H, Neutrophils (%) (Auto) 77.6H, Lymphocytes (%) (Auto) 13.8L, Monocytes (%) (Auto) 7.7, Eosinophils (%) (Auto) 0.1, Basophils (%) (Auto) 0.7, Erythrocyte Sedimentation Rate [Pending], Sodium Level 156H, Potassium Level 3.5, Chloride Level 122H, Carbon Dioxide Level 27, Anion Gap 7, Blood Urea Nitrogen 28H, Creatinine 1.0#, Estimat Glomerular Filtration Rate > 60, Glucose Level 283#H, Calcium Level 9.0, Phosphorus Level 1.5L, Magnesium Level 2.4, Total Bilirubin 0.5, Aspartate Amino Transf (AST/SGOT ) 22, Alanine Aminotransferase (ALT/SGPT) 15, Alkaline Phosphatase 72, C- Reactive Protein, Quantitative 19.6H, Total Protein 6.8, Albumin 2.7L, Globulin 4.1, Albumin/Globulin Ratio 0.7L Height (Feet): 5 Height (Inches): 10.00 Weight (Pounds): 155 Objective HEAD AND NECK: No JVP. No LAD. No thyromegaly. Extraocular movements intact. Pupils are reactive to light and accommodation. LUNGS: Decreased breathing sounds on both sides. CARDIAC: Regular rate and rhythm. S1 and S2. No murmur. No rub. ABDOMEN: Soft, nontender, and nondistended. EXTREMITIES: Trace edema. No clubbing. No cyanosis. Michelle Stanley MD Feb 01, 2018 11:34
[2018-02-01 12:00] VITALS: BP 108/63
--- NOTE | 2018-02-01 15:58 | General Progress Note ---
Assessment/Plan Problem List: (1) ARF (acute renal failure) ICD Codes: N17.9 - Acute kidney failure, unspecified SNOMED: 70282659 (2) UTI (urinary tract infection) ICD Codes: N39.0 - Urinary tract infection, site not specified SNOMED: 69006217 (3) Altered level of consciousness ICD Codes: R40.4 - Transient alteration of awareness SNOMED: 8015514 (4) Dehydration ICD Codes: E86.0 - Dehydration SNOMED: 84848788 (5) Acute renal failure ICD Codes: N17.9 - Acute renal failure SNOMED: 58291818 (6) Hypernatremia ICD Codes: E87.0 - Hyperosmolality and hypernatremia SNOMED: 46118860 Status: progressing Assessment/Plan ams lethargic hypernatremia dry sepsis abxp pe ir reviewed chart and labs and meds Subjective ROS Limited/Unobtainable: Yes Constitutional: Reports: no symptoms Allergies: Coded Allergies: NO KNOWN DRUG ALLERGIES (Unverified Allergy, Unknown, 08/22/15) Objective Last 24 Hour Vital Signs Date Time Temp Pulse Resp B/P (MAP) Pulse Ox O2 Delivery O2 Flow Rate FiO2 02/01/18 13:35 101 24 99 Venturi Mask 14.0 55 02/01/18 13:26 100 24 97 Venturi Mask 14.0 55 02/01/18 12:00 98.9 95 21 108/63 (78) 97 98.9 02/01/18 12:00 Venturi Mask 14.0 02/01/18 12:00 98 02/01/18 09:48 108 113/67 02/01/18 08:00 98.6 105 22 113/67 (82) 96 98.6 02/01/18 08:00 Venturi Mask 14.0 02/01/18 08:00 108 02/01/18 07:09 105 20 97 Venturi Mask 14.0 55 02/01/18 07:04 105 20 97 Venturi Mask 14.0 55 02/01/18 07:00 Venturi Mask 14.0 55 02/01/18 04:00 115 02/01/18 04:00 Venturi Mask 15.0 02/01/18 03:56 97.9 113 22 143/74 (97) 94 97.9 02/01/18 00:00 97.4 111 20 107/71 (83) 97 97.4 02/01/18 00:00 117 02/01/18 00:00 Venturi Mask 15.0 01/31/18 21:00 119 102/74 01/31/18 20:34 119 25 94 Venturi Mask 14.0 55 01/31/18 20:21 Venturi Mask 14.0 55 01/31/18 20:21 114 25 Venturi Mask 14.0 55 01/31/18 20:21 114 25 96 Venturi Mask 14.0 55 01/31/18 20:00 Venturi Mask 15.0 01/31/18 20:00 97.7 120 22 102/74 (83) 95 97.7 01/31/18 20:00 118 01/31/18 17:05 Venturi Mask 15.0 01/31/18 16:00 98.1 115 24 114/76 (89) 97 98.1 01/31/18 16:00 121 Intake and Output 01/31/18 02/01/18 19:00 07:00 Intake Total 770 ml 1960 ml Output Total 1500 ml 600 ml Balance -730 ml 1360 ml Intake Free Water 500 ml 750 ml IV Total 50 ml 600 ml Tube Feeding 220 ml 610 ml Output Urine Total 1500 ml 600 ml # Bowel Movements 2 Laboratory Tests 02/01/18 05:37: White Blood Count 13.8H, Red Blood Count 5.99, Hemoglobin 13.5L, Hematocrit 44.1 , Mean Corpuscular Volume 74L, Mean Corpuscular Hemoglobin 22.5L, Mean Corpuscular Hemoglobin Concent 30.6L, Red Cell Distribution Width 14.6, Platelet Count 138L, Mean Platelet Volume 10.3H, Neutrophils (%) (Auto) 77.6H, Lymphocytes (%) (Auto) 13.8L, Monocytes (%) (Auto) 7.7, Eosinophils (%) (Auto) 0.1, Basophils (%) (Auto) 0.7, Erythrocyte Sedimentation Rate 26H, Sodium Level 156H, Potassium Level 3.5, Chloride Level 122H, Carbon Dioxide Level 27, Anion Gap 7, Blood Urea Nitrogen 28H, Creatinine 1.0#, Estimat Glomerular Filtration Rate > 60, Glucose Level 283#H, Calcium Level 9.0, Phosphorus Level 1.5L, Magnesium Level 2.4, Total Bilirubin 0.5, Aspartate Amino Transf (AST/SGOT) 22, Alanine Aminotransferase (ALT/SGPT) 15, Alkaline Phosphatase 72, C-Reactive Protein, Quantitative 19.6H, Total Protein 6.8, Albumin 2.7L, Globulin 4.1, Albumin/Globulin Ratio 0.7L Height (Feet): 5 Height (Inches): 10.00 Weight (Pounds): 155 Neck: supple Cardiovascular: normal rate Respiratory/Chest: lungs clear Amy Martínez MD Feb 01, 2018 15:58
[2018-02-01 16:00] VITALS: BP 97/57
--- NOTE | 2018-02-01 17:00 | Consultation ---
DATE OF CONSULTATION: 01/31/2018 CARDIOLOGY CONSULTATION CONSULTING PHYSICIAN: Sage Banks M.D. REFERRING PHYSICIAN: 1. Amy Martínez M.D. 2. Donaldo Johnson D.O. REASON FOR CONSULTATION: Management of tachycardia. HISTORY OF PRESENT ILLNESS: The patient is a very unfortunate 62-year-old gentleman, who is brought in from the nursing facility for evaluation and management of decrease in altered mental status for about one day. At the time of evaluation in the emergency department, the patient was not responsive and was only moaning to painful stimuli and was found to have respiratory distress. Initial vital signs in the emergency department, blood pressure was 131/81 and pulse of 160 beats per minute. He was febrile with temperature of 102.0. Evaluation in the emergency department, confirmed severe sepsis secondary to healthcare-associated pneumonia. Antibiotics were given. The patient was noted to be severely dehydrated with a very high serum sodium as well as acute kidney injury, therefore, received multiple boluses of normal saline. The patient's heart rate improved after intravenous fluid and Tylenol for fever. Insulin was also given for severe hyperglycemia noted at the time of arrival to the hospital. The patient was admitted to step-down unit for further evaluation and management. Cardiology consultation was made at the request of Dr. Martínez, who is covering for Dr. Donaldo Johnson for evaluation and management of tachycardia. A 12-lead electrocardiogram in the emergency department confirmed sinus tachycardia at the rate of [address] and T-wave abnormalities. PAST MEDICAL HISTORY: 1. Hypertension. 2. History of chronic obstructive pulmonary disease. 3. History of diabetes mellitus type 2. 4. History of BPH. 5. History of dysphagia, status post G-tube placement. 6. History of Parkinson disease. 7. History of CVA. 8. History of seizure disorder. 9. History of cerebral palsy/altered speech. 10. History of coronary artery disease. PAST SURGICAL HISTORY: PEG placement. MEDICATIONS: List of medications from nursing facility includes, 1. Acetaminophen 325 mg every 6 hours p.r.n. pain and temperature above 100.5. 2. Albuterol 3 mL inhaler q.4 h. p.r.n. shortness of breath. 3. Vitamin C 500 mg G-tube twice daily. 4. Dulcolax 10 mg rectal daily p.r.n. constipation. 5. Lotrimin cream 1 application topically twice daily. 6. Colace 100 mg G-tube twice daily. 7. Pepcid 20 mg G-tube at night time. 8. Proscar 5 mg G-tube daily. 9. Glucagon 1 mg IJ as needed p.r.n. for hyperglycemia. 10. Heparin sodium 5000 units subcutaneous q.12 hours. 11. Levemir insulin 15 units subcutaneous before meals and breakfast. 12. DuoNeb 0.5 to 3 mg per 3 mL q.4 hours shortness of breath. 13. Vimpat 100 mg G-tube q.12 h. 14. Keppra 2000 mg G-tube twice daily. 15. Lorazepam 1 mg G-tube q.12 hours p.r.n. anxiety. 16. Milk of magnesia 30 mL G-tube at bedtime. 17. Metoprolol 25 mg G-tube q.12 hours. 18. Morphine sulfate 2 mg IV push q.4 h p.r.n. pain. 19. Multivitamin liquid 5 G-tube daily. 20. Fleet enema 133 mL rectal daily p.r.n. constipation. 21. Nitroglycerin 0.4 mg subcutaneous q.5 minutes p.r.n. chest pain x3 doses. 22. Omeprazole 20 mg G-tube daily. 23. Zofran 4 mg G-tube q.6 hours p.r.n. nausea and vomiting. 24. MiraLAX 17 g G-tube daily p.r.n. constipation. 25. Potassium chloride 40 mEq G-tube twice daily. 26. Compazine 10 mg IV push q.6 h. p.r.n. nausea and vomiting. 27. Ranitidine 150 mg G-tube twice daily. 28. Risperdal 1 mg G-tube daily. 29. Senna two tablets G-tube at bedtime. 30. Valproic acid 750 G-tube q.12 hours. 31. Zinc sulfate 220 mg G-tube daily. ALLERGIES: No known drug allergies. SOCIAL HISTORY: No history of tobacco, alcohol, or illicit drug use. FAMILY HISTORY: No premature coronary disease in the first-degree relatives. REVIEW OF SYSTEMS: Cannot be obtained as the patient is nonverbal. PHYSICAL EXAMINATION: VITAL SIGNS: Blood pressure is 131/81, respirations of 16, pulse of 160, temperature of 102 degrees Fahrenheit, and O2 saturation 98% on room air. GENERAL: The patient is a very unfortunate 62-year-old gentleman, in [id number] respiratory distress, chronically ill, stupor. HEENT: Atraumatic and normocephalic. Anicteric. Conjunctival pallor. Pupils are equal, round, and reactive to light and accommodation. NECK: JVP is less than 5 cm. Neck is stiff. Dry mucosal membranes. No carotid bruit. CARDIOVASCULAR: Normal S1 and S2. Regular rate and rhythm. Tachycardic. PMI is at fourth intercostal space at the midclavicular line. LUNGS: Diminished breath sounds with the use of accessory muscle. There is presence of rhonchi and crackles in both bases. GASTROINTESTINAL: Soft, nontender, and nondistended. Presence of a G-tube. EXTREMITIES: No evidence of edema, clubbing, or cyanosis. There is presence of a sacral flap. LABORATORY FINDINGS: WBC was 17.1, hemoglobin of 16.8, hematocrit of 53.2, and platelet count is 119,000. Sodium 151, potassium was 4.4, chloride 112, bicarb is 20, BUN of 43, creatinine 2.3, glucose 686, and calcium 9.7. Magnesium is 2.4. Troponin I was 0.041. INR is 1.1. ASSESSMENT AND PLAN: The patient is a very unfortunate 62-year-old gentleman seen in Cardiology consultation. 1. Sinus tachycardia is most likely a combination of sepsis, severe hypovolemia, as he manages on free water deficit as serum sodium is remarkably elevated. This could also be due to osmosis diuresis that is associated with hyperglycemia. The patient requires to have free water via G-tube as well as saline administration with a confucianism of serum sodium. At this time, there is no indication for use of AV lolly agents as tachycardia is likely due to above condition. The patient, in the meantime, also will be receiving intravenous antibiotics for underlying sepsis. 2. History of cerebrovascular accident. I would recommend a combination of aspirin and statin for long-term secondary preventive measures. 3. Diabetes mellitus. 4. Hypertension. 5. Acute kidney injury. 6. Hypernatremia. 7. Urinary tract infection. I would like to thank, Dr. Martínez and Dr. Johnson, for the courtesy of this consultation. Sage Banks M.D. DR: MARTY JOB#: [id number] CC:
[2018-02-01 20:00] VITALS: BP 102/59
[2018-02-01] MEDS: Dyna-Hex 2% Top Sol 2oz TOPIC SCH (20:18)
[2018-02-01] MEDS: Cefepime HCl 1 GM in D5W 110 ML IVPB SCH (21:19)
[2018-02-01] MEDS: Milk of Magnesia 30ml Ud GT SCH (21:19)
[2018-02-01] MEDS: Levemir Flexpen SUBQ SCH (21:21)
[2018-02-02] VITALS: BP 101/68
[2018-02-02 04:00] VITALS: BP 110/57
[2018-02-02 04:53] LABS: BASOPHILS % (AUTO) 0.9 % (0.0-2.0); EOSINOPHILS % (AUTO) 1.9 % (0.0-3.0); HEMATOCRIT 37.2 % (42.0-52.0); HEMOGLOBIN 11.9 G/DL (14.2-18.0); LYMPHOCYTES % (AUTO) 18.2 % (20.0-45.0); MEAN CORPUSCULAR VOLUME 73 FL (80-99); MONOCYTES % (AUTO) 8.7 % (1.0-10.0); NEUTROPHILS % (AUTO) 70.3 % (45.0-75.0); PLATELET COUNT 107 K/UL (150-450); RED BLOOD COUNT 5.09 M/UL (4.70-6.10); WHITE BLOOD COUNT 10.3 K/UL (4.8-10.8)
[2018-02-02 05:08] LABS: ALANINE AMINOTRANSFERASE 19 U/L (12-78); ALBUMIN 2.4 G/DL (3.4-5.0); ALBUMIN/GLOBULIN RATIO 0.6 (1.0-2.7); ALKALINE PHOSPHATASE 70 U/L (46-116); ANION GAP 6 mmol/L (5-15); ASPARTATE AMINO TRANSFERASE 26 U/L (15-37); BILIRUBIN,TOTAL 0.3 MG/DL (0.2-1.0); BLOOD UREA NITROGEN 23 mg/dL (7-18); CALCIUM 8.2 MG/DL (8.5-10.1); CARBON DIOXIDE 26 MMOL/L (21-32); CHLORIDE 114 MMOL/L (98-107); CREATININE 0.8 MG/DL (0.55-1.30); PHOSPHORUS 2.2 MG/DL (2.5-4.9); POTASSIUM 3.2 MMOL/L (3.5-5.1); SODIUM 146 MMOL/L (136-145)
[2018-02-02] MEDS: NovoLOG Insulin Flexpen SUBQ SCH ×7 (06:33→21:11)
[2018-02-02] MEDS: Levalbuterol Inh UD 1.25mg/0.5ml HHN SCH ×3 (07:47→18:59)
[2018-02-02 08:00] VITALS: BP 116/69
[2018-02-02] MEDS: levETIRAcetam 500mg/5ml Liquid GT SCH ×2 (09:23→17:23)
[2018-02-02] MEDS: Cefepime HCl 1 GM in D5W 110 ML IVPB SCH ×2 (09:23→21:17)
[2018-02-02] MEDS: Docusate 100mg/10ml Liq GT SCH ×2 (09:23→17:26)
[2018-02-02] MEDS: Ascorbic Acid 500mg tab GT SCH ×2 (09:24→17:27)
[2018-02-02] MEDS: Metoprolol 25mg tab GT SCH ×2 (09:24→20:52)
[2018-02-02] MEDS: Zinc Sulfate 220mg cap GT SCH (09:24)
[2018-02-02] MEDS: Lacosamide 100 MG TABLET ORAL SCH ×2 (09:26→20:52)
[2018-02-02] MEDS: Heparin 5000 units/ml inj SUBQ SCH ×2 (09:29→20:56)
--- NOTE | 2018-02-02 10:09 | Infectious Diseases Prog Note ---
Assessment/Plan Assessment/Plan A: Sepsis improving Acute renal failure improving DM Cerebral palsy Lactic acidosis Tachycardia P: Continue Cefepime Will f/u cultures Subjective ROS Limited/Unobtainable: Yes Allergies: Coded Allergies: NO KNOWN DRUG ALLERGIES (Unverified Allergy, Unknown, 08/22/15) Objective Vital Signs Last 24 Hour Vital Signs Date Time Temp Pulse Resp B/P (MAP) Pulse Ox O2 Delivery O2 Flow Rate FiO2 02/02/18 09:26 99.4 02/02/18 09:24 104 116/69 02/02/18 08:00 99.4 104 19 116/69 (85) 97 99.4 02/02/18 08:00 99.4 104 19 116/69 (85) 97 99.4 02/02/18 08:00 Venturi Mask 02/02/18 08:00 110 02/02/18 07:55 108 25 96 Venturi Mask 14.0 55 02/02/18 07:47 Venturi Mask 14.0 55 02/02/18 07:47 104 25 95 Venturi Mask 14.0 55 02/02/18 04:00 99.1 109 20 110/57 (74) 99 99.1 02/02/18 04:00 102 02/02/18 04:00 Venturi Mask 14.0 02/02/18 00:00 98.8 101 22 101/68 (79) 99 98.8 02/02/18 00:00 101 02/02/18 00:00 Venturi Mask 14.0 02/01/18 21:00 115 102/59 02/01/18 20:00 Venturi Mask 14.0 02/01/18 20:00 113 02/01/18 20:00 98.7 115 20 102/59 (73) 97 98.7 02/01/18 19:05 Venturi Mask 14.0 55 02/01/18 19:00 104 22 96 Venturi Mask 14.0 55 02/01/18 19:00 102 22 98 Venturi Mask 14.0 55 02/01/18 16:00 97.9 96 20 97/57 (70) 97 97.9 02/01/18 16:00 Venturi Mask 14.0 02/01/18 16:00 105 02/01/18 13:35 101 24 99 Venturi Mask 14.0 55 02/01/18 13:26 100 24 97 Venturi Mask 14.0 55 02/01/18 12:00 98.9 95 21 108/63 (78) 97 98.9 02/01/18 12:00 Venturi Mask 14.0 02/01/18 12:00 98 Height (Feet): 5 Height (Inches): 10.00 Weight (Pounds): 155 HEENT: mucous membranes moist Respiratory/Chest: lungs clear, other - Oxygen by mask Cardiovascular: tachycardia, other - RIJ central line Abdomen: soft, non tender, other - GT feeding Extremities: no edema Skin: ulcers, other - and blister on Left leg Neurologic/Psychiatric: unresponsiveness, aphasia Microbiology Date/Time Source Procedure Growth Status 01/30/18 23:55 Blood Blood Culture - Preliminary NO GROWTH AFTER 48 HOURS Resulted 01/30/18 23:55 Blood Blood Culture - Preliminary NO GROWTH AFTER 48 HOURS Resulted 01/31/18 13:30 Sputum Gram Stain - Final Resulted 01/31/18 13:30 Sputum Culture - Preliminary Gram Negative Rudy Resulted 01/31/18 05:40 Rectum - Final Carbapenem Resistant Organism Complete Laboratory Tests Test 02/02/18 04:00 White Blood Count 10.3 K/UL (4.8-10.8) Red Blood Count 5.09 M/UL (4.70-6.10) Hemoglobin 11.9 G/DL (14.2-18.0) L Hematocrit 37.2 % (42.0-52.0) L Mean Corpuscular Volume 73 FL (80-99) L Mean Corpuscular Hemoglobin 23.3 PG (27.0-31.0) L Mean Corpuscular Hemoglobin Concent 31.9 G/DL (32.0-36.0) L Red Cell Distribution Width 14.0 % (11.6-14.8) Platelet Count 107 K/UL (150-450) L Mean Platelet Volume 12.0 FL (6.5-10.1) H Neutrophils (%) (Auto) 70.3 % (45.0-75.0) Lymphocytes (%) (Auto) 18.2 % (20.0-45.0) L Monocytes (%) (Auto) 8.7 % (1.0-10.0) Eosinophils (%) (Auto) 1.9 % (0.0-3.0) Basophils (%) (Auto) 0.9 % (0.0-2.0) Sodium Level 146 MMOL/L (136-145) #H Potassium Level 3.2 MMOL/L (3.5-5.1) L Chloride Level 114 MMOL/L (98-107) H Carbon Dioxide Level 26 MMOL/L (21-32) Anion Gap 6 mmol/L (5-15) Blood Urea Nitrogen 23 mg/dL (7-18) H Creatinine 0.8 MG/DL (0.55-1.30) Estimat Glomerular Filtration Rate > 60 mL/min (>60) Glucose Level 260 MG/DL (74-106) H Calcium Level 8.2 MG/DL (8.5-10.1) L Phosphorus Level 2.2 MG/DL (2.5-4.9) L Magnesium Level 2.0 MG/DL (1.8-2.4) Total Bilirubin 0.3 MG/DL (0.2-1.0) Aspartate Amino Transf (AST/SGOT) 26 U/L (15-37) Alanine Aminotransferase (ALT/SGPT) 19 U/L (12-78) Alkaline Phosphatase 70 U/L (46-116) Total Protein 6.2 G/DL (6.4-8.2) L Albumin 2.4 G/DL (3.4-5.0) L Globulin 3.8 g/dL Albumin/Globulin Ratio 0.6 (1.0-2.7) L Current Medications Medications (Trade) Dose Ordered Sig/Monalias Route PRN Reason Start Time Stop Time Status Last Admin Dose Admin Acetaminophen (Tylenol) 650 mg Q4H PRN ORAL Fever/Headache/Mild Pain 01/31/18 11:15 03/02/18 11:14 02/02/18 09:26 Albuterol/ Ipratropium (Albuterol/ Ipratropium) 3 ml Q4H PRN HHN Shortness of Breath 01/31/18 11:15 02/05/18 11:14 Ascorbic Acid (Vitamin C) 500 mg TWICE A DAY GT 01/31/18 18:00 03/02/18 17:59 02/02/18 09:24 Bisacodyl (Dulcolax) 10 mg DAILYPRN PRN RECTAL Constipation 01/31/18 11:15 03/02/18 11:14 Cefepime HCl 1 gm/ Dextrose 110 ml @ 220 mls/hr Q12HR IVPB 02/01/18 21:00 02/08/18 20:59 02/02/18 09:23 Chlorhexidine Gluconate (Palak-Hex 2%) 1 applic DAILY@2000 TOPIC 02/01/18 20:00 03/03/18 19:59 02/01/18 20:18 Dextrose 1,000 ml @ 50 mls/hr Q20H IV 01/31/18 17:45 03/02/18 17:44 02/02/18 09:26 Dextrose (Dextrose 50%) 25 ml STAT PRN IV Hypoglycemia 01/31/18 15:30 03/02/18 15:29 Dextrose (Dextrose 50%) 50 ml STAT PRN IV Hypoglycemia 01/31/18 15:30 03/02/18 15:29 Docusate Sodium (Colace) 100 mg TWICE A DAY GT 01/31/18 18:00 03/02/18 17:59 02/02/18 09:23 Famotidine (Pepcid) 20 mg BEDTIME ORAL 01/31/18 21:00 03/02/18 20:59 02/01/18 21:19 Finasteride (Proscar) 5 mg DAILY ORAL 02/01/18 09:00 03/03/18 08:59 02/02/18 09:24 Heparin Sodium (Porcine) (Heparin 5000 units/ml) 5,000 units EVERY 12 HOURS SUBQ 01/31/18 21:00 03/02/18 20:59 02/02/18 09:29 Insulin Aspart (NovoLOG) BEFORE MEALS AND HS SUBQ 01/31/18 16:30 03/02/18 16:29 02/02/18 06:33 Insulin Aspart (NovoLOG) 8 units NOVOTIAC SUBQ 01/31/18 16:50 03/02/18 16:49 02/02/18 06:34 Insulin Detemir (Levemir) 24 units BEDTIME SUBQ 01/31/18 21:00 03/02/18 20:59 02/01/18 21:21 Lacosamide (Vimpat) 100 mg EVERY 12 HOURS ORAL 01/31/18 21:00 03/02/18 20:59 02/02/18 09:26 Levalbuterol HCl (Xopenex) 1.25 mg TIDRT HHN 01/31/18 13:00 02/05/18 12:59 02/02/18 07:47 Levetiracetam (Keppra) 2,000 mg BID GT 01/31/18 18:00 03/02/18 17:59 02/02/18 09:23 Lorazepam (Ativan) 1 mg Q12H PRN GT For Anxiety 01/31/18 11:15 02/07/18 11:14 Magnesium Hydroxide (Mom) 30 ml BEDTIME GT 01/31/18 21:00 03/02/18 20:59 02/01/18 21:19 Magnesium Hydroxide (Mom) 30 ml DAILYPRN PRN GT Constipation 01/31/18 11:15 03/02/18 11:14 Metoprolol Tartrate (Lopressor) 25 mg EVERY 12 HOURS GT 01/31/18 21:00 03/02/18 20:59 02/02/18 09:24 Promethazine HCl/ Codeine (Phenergan with Codeine) 5 ml Q4H PRN ORAL For Cough 01/31/18 11:45 03/02/18 11:44 Risperidone (RisperDAL) 1 mg DAILY GT 02/01/18 09:00 03/03/18 08:59 02/02/18 09:24 Zinc Sulfate (Zinc Sulfate) 220 mg DAILY GT 02/01/18 09:00 03/03/18 08:59 02/02/18 09:24 Sanjay Thomas MD Feb 02, 2018 10:09
[2018-02-02] MEDS ORDERED: Sterile Water Irrig 1000ml IRRIG ONE (11:09)
[2018-02-02] MEDS ORDERED: NS 275ml ONE (11:09)
[2018-02-02 12:00] VITALS: BP 96/61
--- NOTE | 2018-02-02 12:29 | Cardiology Progress Note ---
Assessment/Plan Assessment/Plan 1. Sinus tachycardia, hemodynamically more stable continue hydration with electrolyte correction. Control fever, continue ABx. Continue metoprolol. Normal LV systolic function in Jun 2016 with LVEF at 65%. 2. History of cerebrovascular accident. 3. Diabetes mellitus. 4. Hypertension. 5. Acute kidney injury, improved with hydration. 6. Hypernatremia, resolved. 7. Urinary tract infection. Subjective Subjective Sinus tachycardia at 104. Objective Last 24 Hour Vital Signs Date Time Temp Pulse Resp B/P (MAP) Pulse Ox O2 Delivery O2 Flow Rate FiO2 02/02/18 10:25 99.4 02/02/18 09:26 99.4 02/02/18 09:24 104 116/69 02/02/18 08:00 99.4 104 19 116/69 (85) 97 99.4 02/02/18 08:00 99.4 104 19 116/69 (85) 97 99.4 02/02/18 08:00 Venturi Mask 02/02/18 08:00 110 02/02/18 07:55 108 25 96 Venturi Mask 14.0 55 02/02/18 07:47 Venturi Mask 14.0 55 02/02/18 07:47 104 25 95 Venturi Mask 14.0 55 02/02/18 04:00 99.1 109 20 110/57 (74) 99 99.1 02/02/18 04:00 102 02/02/18 04:00 Venturi Mask 14.0 02/02/18 00:00 98.8 101 22 101/68 (79) 99 98.8 02/02/18 00:00 101 02/02/18 00:00 Venturi Mask 14.0 02/01/18 21:00 115 102/59 02/01/18 20:00 Venturi Mask 14.0 02/01/18 20:00 113 02/01/18 20:00 98.7 115 20 102/59 (73) 97 98.7 02/01/18 19:05 Venturi Mask 14.0 55 02/01/18 19:00 104 22 96 Venturi Mask 14.0 55 02/01/18 19:00 102 22 98 Venturi Mask 14.0 55 02/01/18 16:00 97.9 96 20 97/57 (70) 97 97.9 02/01/18 16:00 Venturi Mask 14.0 7/7/18 16:00 105 02/01/18 13:35 101 24 99 Venturi Mask 14.0 55 02/01/18 13:26 100 24 97 Venturi Mask 14.0 55 Intake and Output 02/01/18 02/02/18 19:00 07:00 Intake Total 1630 ml 1990 ml Output Total 400 ml 550 ml Balance 1230 ml 1440 ml Intake Free Water 780 ml 500 ml IV Total 500 ml 710 ml Tube Feeding 350 ml 780 ml Output Urine Total 400 ml 550 ml # Bowel Movements 3 2 Laboratory Tests Test 02/02/18 04:00 White Blood Count 10.3 K/UL (4.8-10.8) Red Blood Count 5.09 M/UL (4.70-6.10) Hemoglobin 11.9 G/DL (14.2-18.0) L Hematocrit 37.2 % (42.0-52.0) L Mean Corpuscular Volume 73 FL (80-99) L Mean Corpuscular Hemoglobin 23.3 PG (27.0-31.0) L Mean Corpuscular Hemoglobin Concent 31.9 G/DL (32.0-36.0) L Red Cell Distribution Width 14.0 % (11.6-14.8) Platelet Count 107 K/UL (150-450) L Mean Platelet Volume 12.0 FL (6.5-10.1) H Neutrophils (%) (Auto) 70.3 % (45.0-75.0) Lymphocytes (%) (Auto) 18.2 % (20.0-45.0) L Monocytes (%) (Auto) 8.7 % (1.0-10.0) Eosinophils (%) (Auto) 1.9 % (0.0-3.0) Basophils (%) (Auto) 0.9 % (0.0-2.0) Sodium Level 146 MMOL/L (136-145) #H Potassium Level 3.2 MMOL/L (3.5-5.1) L Chloride Level 114 MMOL/L (98-107) H Carbon Dioxide Level 26 MMOL/L (21-32) Anion Gap 6 mmol/L (5-15) Blood Urea Nitrogen 23 mg/dL (7-18) H Creatinine 0.8 MG/DL (0.55-1.30) Estimat Glomerular Filtration Rate > 60 mL/min (>60) Glucose Level 260 MG/DL (74-106) H Calcium Level 8.2 MG/DL (8.5-10.1) L Phosphorus Level 2.2 MG/DL (2.5-4.9) L Magnesium Level 2.0 MG/DL (1.8-2.4) Total Bilirubin 0.3 MG/DL (0.2-1.0) Aspartate Amino Transf (AST/SGOT) 26 U/L (15-37) Alanine Aminotransferase (ALT/SGPT) 19 U/L (12-78) Alkaline Phosphatase 70 U/L (46-116) Total Protein 6.2 G/DL (6.4-8.2) L Albumin 2.4 G/DL (3.4-5.0) L Globulin 3.8 g/dL Albumin/Globulin Ratio 0.6 (1.0-2.7) L Microbiology Date/Time Source Procedure Growth Status 01/30/18 23:55 Blood Blood Culture - Preliminary NO GROWTH AFTER 48 HOURS Resulted 01/30/18 23:55 Blood Blood Culture - Preliminary NO GROWTH AFTER 48 HOURS Resulted 01/31/18 13:30 Sputum Gram Stain - Final Resulted 01/31/18 13:30 Sputum Culture - Preliminary Gram Negative Rudy Resulted 01/31/18 05:40 Rectum - Preliminary Carbapenem Resistant Organism Resulted Objective HEENT: Atraumatic and normocephalic. Anicteric. Conjunctival pallor. Pupils are equal, round, and reactive to light and accommodation. NECK: JVP is less than 5 cm. Neck is stiff. Dry mucosal membranes. No carotid bruit. CARDIOVASCULAR: Normal S1 and S2. Regular rate and rhythm. Tachycardic. PMI is at fourth intercostal space at the midclavicular line. LUNGS: Diminished breath sounds with the use of accessory muscle. There is presence of rhonchi and crackles in both bases. GASTROINTESTINAL: Soft, nontender, and nondistended. Presence of a G-tube. EXTREMITIES: No evidence of edema, clubbing, or cyanosis. There is presence of a sacral flap. Sage Banks MD Feb 02, 2018 12:29
--- NOTE | 2018-02-02 12:41 | General Progress Note ---
Assessment/Plan Problem List: (1) ARF (acute renal failure) ICD Codes: N17.9 - Acute kidney failure, unspecified SNOMED: 20606601 (2) UTI (urinary tract infection) ICD Codes: N39.0 - Urinary tract infection, site not specified SNOMED: 60134677 (3) Altered level of consciousness ICD Codes: R40.4 - Transient alteration of awareness SNOMED: 1262629 (4) Dehydration ICD Codes: E86.0 - Dehydration SNOMED: 16344705 (5) Acute renal failure ICD Codes: N17.9 - Acute renal failure SNOMED: 65932505 (6) Hypernatremia ICD Codes: E87.0 - Hyperosmolality and hypernatremia SNOMED: 85899778 Status: progressing Assessment/Plan ams lethargic hypernatremia improving dry sepsis abxp pe ir needs free water to bring down na Subjective ROS Limited/Unobtainable: Yes Allergies: Coded Allergies: NO KNOWN DRUG ALLERGIES (Unverified Allergy, Unknown, 08/22/15) Objective Last 24 Hour Vital Signs Date Time Temp Pulse Resp B/P (MAP) Pulse Ox O2 Delivery O2 Flow Rate FiO2 02/02/18 12:00 Venturi Mask 02/02/18 10:25 99.4 02/02/18 09:26 99.4 02/02/18 09:24 104 116/69 02/02/18 08:00 99.4 104 19 116/69 (85) 97 99.4 02/02/18 08:00 99.4 104 19 116/69 (85) 97 99.4 02/02/18 08:00 Venturi Mask 02/02/18 08:00 110 02/02/18 07:55 108 25 96 Venturi Mask 14.0 55 02/02/18 07:47 Venturi Mask 14.0 55 02/02/18 07:47 104 25 95 Venturi Mask 14.0 55 02/02/18 04:00 99.1 109 20 110/57 (74) 99 99.1 02/02/18 04:00 102 02/02/18 04:00 Venturi Mask 14.0 02/02/18 00:00 98.8 101 22 101/68 (79) 99 98.8 02/02/18 00:00 101 02/02/18 00:00 Venturi Mask 14.0 02/01/18 21:00 115 102/59 02/01/18 20:00 Venturi Mask 14.0 02/01/18 20:00 113 02/01/18 20:00 98.7 115 20 102/59 (73) 97 98.7 02/01/18 19:05 Venturi Mask 14.0 55 02/01/18 19:00 104 22 96 Venturi Mask 14.0 55 02/01/18 19:00 102 22 98 Venturi Mask 14.0 55 02/01/18 16:00 97.9 96 20 97/57 (70) 97 97.9 02/01/18 16:00 Venturi Mask 14.0 02/01/18 16:00 105 02/01/18 13:35 101 24 99 Venturi Mask 14.0 55 02/01/18 13:26 100 24 97 Venturi Mask 14.0 55 Intake and Output 02/01/18 02/02/18 19:00 07:00 Intake Total 1630 ml 1990 ml Output Total 400 ml 550 ml Balance 1230 ml 1440 ml Intake Free Water 780 ml 500 ml IV Total 500 ml 710 ml Tube Feeding 350 ml 780 ml Output Urine Total 400 ml 550 ml # Bowel Movements 3 2 Laboratory Tests 02/02/18 04:00: White Blood Count 10.3, Red Blood Count 5.09, Hemoglobin 11.9L, Hematocrit 37.2L , Mean Corpuscular Volume 73L, Mean Corpuscular Hemoglobin 23.3L, Mean Corpuscular Hemoglobin Concent 31.9L, Red Cell Distribution Width 14.0, Platelet Count 107L, Mean Platelet Volume 12.0H, Neutrophils (%) (Auto) 70.3, Lymphocytes (%) (Auto) 18.2L, Monocytes (%) (Auto) 8.7, Eosinophils (%) (Auto) 1.9, Basophils (%) (Auto) 0.9, Sodium Level 146#H, Potassium Level 3.2L, Chloride Level 114H, Carbon Dioxide Level 26, Anion Gap 6, Blood Urea Nitrogen 23H, Creatinine 0.8, Estimat Glomerular Filtration Rate > 60, Glucose Level 260H , Calcium Level 8.2L, Phosphorus Level 2.2L, Magnesium Level 2.0, Total Bilirubin 0.3, Aspartate Amino Transf (AST/SGOT) 26, Alanine Aminotransferase ( ALT/SGPT) 19, Alkaline Phosphatase 70, Total Protein 6.2L, Albumin 2.4L, Globulin 3.8, Albumin/Globulin Ratio 0.6L Height (Feet): 5 Height (Inches): 10.00 Weight (Pounds): 155 Neck: supple Cardiovascular: normal rate Respiratory/Chest: lungs clear Amy Martínez MD Feb 02, 2018 12:41
[2018-02-02 16:00] VITALS: BP 99/61
--- NOTE | 2018-02-02 17:45 | Nephrology Progress Note ---
Assessment/Plan Assessment 1. Hypernatremia. 2. Acute renal failure. 3. Chronic kidney disease. 4. Possible diabetic nephropathy. 5. Uncontrolled diabetes. 6. Severe anion gap acidosis with lactic acid of 2.9. 7. Sepsis. 8. Positive urinary tract infection. Plan continue free water continue d5w monitoring renal function avoid NSAID replace electrolyte as need it Subjective ROS Limited/Unobtainable: Yes Constitutional: Reports: no symptoms HEENT: Reports: no symptoms Genitourinary: Reports: no symptoms Neurologic/Psychiatric: Reports: no symptoms Objective Objective Last 24 Hour Vital Signs Date Time Temp Pulse Resp B/P (MAP) Pulse Ox O2 Delivery O2 Flow Rate FiO2 02/02/18 16:00 98.4 96 19 99/61 (74) 99 98.4 02/02/18 13:28 97 25 98 Venturi Mask 14.0 55 02/02/18 13:19 104 25 98 Venturi Mask 14.0 55 02/02/18 12:00 104 02/02/18 12:00 98.6 96 20 96/61 (73) 98 98.6 02/02/18 12:00 Venturi Mask 02/02/18 10:25 99.4 02/02/18 09:26 99.4 02/02/18 09:24 104 116/69 02/02/18 08:00 99.4 104 19 116/69 (85) 97 99.4 02/02/18 08:00 99.4 104 19 116/69 (85) 97 99.4 02/02/18 08:00 Venturi Mask 02/02/18 08:00 110 02/02/18 07:55 108 25 96 Venturi Mask 14.0 55 02/02/18 07:47 Venturi Mask 14.0 55 02/02/18 07:47 104 25 95 Venturi Mask 14.0 55 02/02/18 04:00 99.1 109 20 110/57 (74) 99 99.1 02/02/18 04:00 102 02/02/18 04:00 Venturi Mask 14.0 02/02/18 00:00 98.8 101 22 101/68 (79) 99 98.8 02/02/18 00:00 101 02/02/18 00:00 Venturi Mask 14.0 02/01/18 21:00 115 102/59 02/01/18 20:00 Venturi Mask 14.0 02/01/18 20:00 113 02/01/18 20:00 98.7 115 20 102/59 (73) 97 98.7 02/01/18 19:05 Venturi Mask 14.0 55 02/01/18 19:00 104 22 96 Venturi Mask 14.0 55 02/01/18 19:00 102 22 98 Venturi Mask 14.0 55 Intake and Output 02/01/18 02/02/18 19:00 07:00 Intake Total 1630 ml 1990 ml Output Total 400 ml 550 ml Balance 1230 ml 1440 ml Intake Free Water 780 ml 500 ml IV Total 500 ml 710 ml Tube Feeding 350 ml 780 ml Output Urine Total 400 ml 550 ml # Bowel Movements 3 2 Laboratory Tests 02/02/18 04:00: White Blood Count 10.3, Red Blood Count 5.09, Hemoglobin 11.9L, Hematocrit 37.2L , Mean Corpuscular Volume 73L, Mean Corpuscular Hemoglobin 23.3L, Mean Corpuscular Hemoglobin Concent 31.9L, Red Cell Distribution Width 14.0, Platelet Count 107L, Mean Platelet Volume 12.0H, Neutrophils (%) (Auto) 70.3, Lymphocytes (%) (Auto) 18.2L, Monocytes (%) (Auto) 8.7, Eosinophils (%) (Auto) 1.9, Basophils (%) (Auto) 0.9, Sodium Level 146#H, Potassium Level 3.2L, Chloride Level 114H, Carbon Dioxide Level 26, Anion Gap 6, Blood Urea Nitrogen 23H, Creatinine 0.8, Estimat Glomerular Filtration Rate > 60, Glucose Level 260H , Calcium Level 8.2L, Phosphorus Level 2.2L, Magnesium Level 2.0, Total Bilirubin 0.3, Aspartate Amino Transf (AST/SGOT) 26, Alanine Aminotransferase ( ALT/SGPT) 19, Alkaline Phosphatase 70, Total Protein 6.2L, Albumin 2.4L, Globulin 3.8, Albumin/Globulin Ratio 0.6L Height (Feet): 5 Height (Inches): 10.00 Weight (Pounds): 155 Objective HEAD AND NECK: No JVP. No LAD. No thyromegaly. Extraocular movements intact. Pupils are reactive to light and accommodation. LUNGS: Decreased breathing sounds on both sides. CARDIAC: Regular rate and rhythm. S1 and S2. No murmur. No rub. ABDOMEN: Soft, nontender, and nondistended. EXTREMITIES: Trace edema. No clubbing. No cyanosis. Michelle Stanley MD Feb 02, 2018 17:45
[2018-02-02] MEDS ORDERED: Phospha 250 Neutral tab ORAL ONE (18:00)
--- NOTE | 2018-02-02 18:09 | Pulmonology Progress Note ---
Assessment/Plan Problems: (1) Severe sepsis without septic shock (2) Toxic metabolic encephalopathy (3) Pneumonia (4) Feeding by G-tube (5) cerebral pulsy with advanced mental retardation (6) Seizure disorder, complex partial Assessment/Plan cxr reviewed 02/03 not much change respiratory treatment check electrolytes all reviewed cardio and ID appreciated pt/ot tolerating diet Subjective ROS Limited/Unobtainable: No Constitutional: Reports: no symptoms HEENT: Repors: no symptoms Respiratory: Reports: no symptoms Allergies: Coded Allergies: NO KNOWN DRUG ALLERGIES (Unverified Allergy, Unknown, 08/22/15) Objective Last 24 Hour Vital Signs Date Time Temp Pulse Resp B/P (MAP) Pulse Ox O2 Delivery O2 Flow Rate FiO2 02/02/18 16:00 Venturi Mask 02/02/18 16:00 94 02/02/18 16:00 98.4 96 19 99/61 (74) 99 98.4 02/02/18 13:28 97 25 98 Venturi Mask 14.0 55 02/02/18 13:19 104 25 98 Venturi Mask 14.0 55 02/02/18 12:00 104 02/02/18 12:00 98.6 96 20 96/61 (73) 98 98.6 02/02/18 12:00 Venturi Mask 02/02/18 10:25 99.4 02/02/18 09:26 99.4 02/02/18 09:24 104 116/69 02/02/18 08:00 99.4 104 19 116/69 (85) 97 99.4 02/02/18 08:00 99.4 104 19 116/69 (85) 97 99.4 02/02/18 08:00 Venturi Mask 02/02/18 08:00 110 02/02/18 07:55 108 25 96 Venturi Mask 14.0 55 02/02/18 07:47 Venturi Mask 14.0 55 02/02/18 07:47 104 25 95 Venturi Mask 14.0 55 02/02/18 04:00 99.1 109 20 110/57 (74) 99 99.1 02/02/18 04:00 102 02/02/18 04:00 Venturi Mask 14.0 02/02/18 00:00 98.8 101 22 101/68 (79) 99 98.8 02/02/18 00:00 101 02/02/18 00:00 Venturi Mask 14.0 02/01/18 21:00 115 102/59 02/01/18 20:00 Venturi Mask 14.0 02/01/18 20:00 113 02/01/18 20:00 98.7 115 20 102/59 (73) 97 98.7 02/01/18 19:05 Venturi Mask 14.0 55 02/01/18 19:00 104 22 96 Venturi Mask 14.0 55 02/01/18 19:00 102 22 98 Venturi Mask 14.0 55 Intake and Output 02/01/18 02/02/18 19:00 07:00 Intake Total 1630 ml 1990 ml Output Total 400 ml 550 ml Balance 1230 ml 1440 ml Intake Free Water 780 ml 500 ml IV Total 500 ml 710 ml Tube Feeding 350 ml 780 ml Output Urine Total 400 ml 550 ml # Bowel Movements 3 2 General Appearance: WD/WN HEENT: normocephalic Respiratory/Chest: chest wall non-tender, lungs clear Cardiovascular: normal peripheral pulses, normal rate Abdomen: normal bowel sounds, soft, non tender Extremities: no cyanosis, no clubbing Neurologic/Psychiatric: manager investment banking II-XII grossly normal Microbiology Date/Time Source Procedure Growth Status 01/30/18 23:55 Blood Blood Culture - Preliminary NO GROWTH AFTER 48 HOURS Resulted 01/30/18 23:55 Blood Blood Culture - Preliminary NO GROWTH AFTER 48 HOURS Resulted 01/31/18 13:30 Sputum Gram Stain - Final Resulted 01/31/18 13:30 Sputum Culture - Preliminary Gram Negative Rudy Resulted 01/31/18 05:40 Rectum - Preliminary Carbapenem Resistant Organism Resulted Laboratory Tests 02/02/18 04:00: White Blood Count 10.3, Red Blood Count 5.09, Hemoglobin 11.9L, Hematocrit 37.2L , Mean Corpuscular Volume 73L, Mean Corpuscular Hemoglobin 23.3L, Mean Corpuscular Hemoglobin Concent 31.9L, Red Cell Distribution Width 14.0, Platelet Count 107L, Mean Platelet Volume 12.0H, Neutrophils (%) (Auto) 70.3, Lymphocytes (%) (Auto) 18.2L, Monocytes (%) (Auto) 8.7, Eosinophils (%) (Auto) 1.9, Basophils (%) (Auto) 0.9, Sodium Level 146#H, Potassium Level 3.2L, Chloride Level 114H, Carbon Dioxide Level 26, Anion Gap 6, Blood Urea Nitrogen 23H, Creatinine 0.8, Estimat Glomerular Filtration Rate > 60, Glucose Level 260H , Calcium Level 8.2L, Phosphorus Level 2.2L, Magnesium Level 2.0, Total Bilirubin 0.3, Aspartate Amino Transf (AST/SGOT) 26, Alanine Aminotransferase ( ALT/SGPT) 19, Alkaline Phosphatase 70, Total Protein 6.2L, Albumin 2.4L, Globulin 3.8, Albumin/Globulin Ratio 0.6L Current Medications Medications (Trade) Dose Ordered Sig/Monalisa Route PRN Reason Start Time Stop Time Status Last Admin Dose Admin Acetaminophen (Tylenol) 650 mg Q4H PRN ORAL Fever/Headache/Mild Pain 01/31/18 11:15 03/02/18 11:14 02/02/18 09:26 Albuterol/ Ipratropium (Albuterol/ Ipratropium) 3 ml Q4H PRN HHN Shortness of Breath 01/31/18 11:15 02/05/18 11:14 Ascorbic Acid (Vitamin C) 500 mg TWICE A DAY GT 01/31/18 18:00 03/02/18 17:59 02/02/18 17:27 Bisacodyl (Dulcolax) 10 mg DAILYPRN PRN RECTAL Constipation 01/31/18 11:15 03/02/18 11:14 Cefepime HCl 1 gm/ Dextrose 110 ml @ 220 mls/hr Q12HR IVPB 02/01/18 21:00 02/08/18 20:59 02/02/18 09:23 Chlorhexidine Gluconate (Palak-Hex 2%) 1 applic DAILY@2000 TOPIC 02/01/18 20:00 03/03/18 19:59 02/01/18 20:18 Dextrose 1,000 ml @ 50 mls/hr Q20H IV 01/31/18 17:45 03/02/18 17:44 02/02/18 09:26 Dextrose (Dextrose 50%) 25 ml STAT PRN IV Hypoglycemia 01/31/18 15:30 03/02/18 15:29 Dextrose (Dextrose 50%) 50 ml STAT PRN IV Hypoglycemia 01/31/18 15:30 03/02/18 15:29 Docusate Sodium (Colace) 100 mg TWICE A DAY GT 01/31/18 18:00 03/02/18 17:59 02/02/18 17:26 Famotidine (Pepcid) 20 mg BEDTIME ORAL 01/31/18 21:00 03/02/18 20:59 02/01/18 21:19 Finasteride (Proscar) 5 mg DAILY ORAL 02/01/18 09:00 03/03/18 08:59 02/02/18 09:24 Heparin Sodium (Porcine) (Heparin 5000 units/ml) 5,000 units EVERY 12 HOURS SUBQ 01/31/18 21:00 03/02/18 20:59 02/02/18 09:29 Insulin Aspart (NovoLOG) BEFORE MEALS AND HS SUBQ 01/31/18 16:30 03/02/18 16:29 02/02/18 16:30 Insulin Aspart (NovoLOG) 8 units NOVOTIAC SUBQ 01/31/18 16:50 03/02/18 16:49 02/02/18 17:21 Insulin Detemir (Levemir) 24 units BEDTIME SUBQ 01/31/18 21:00 03/02/18 20:59 02/01/18 21:21 Lacosamide (Vimpat) 100 mg EVERY 12 HOURS ORAL 01/31/18 21:00 03/02/18 20:59 02/02/18 09:26 Levalbuterol HCl (Xopenex) 1.25 mg TIDRT HHN 01/31/18 13:00 02/05/18 12:59 02/02/18 13:19 Levetiracetam (Keppra) 2,000 mg BID GT 01/31/18 18:00 03/02/18 17:59 02/02/18 17:23 Lorazepam (Ativan) 1 mg Q12H PRN GT For Anxiety 01/31/18 11:15 02/07/18 11:14 Magnesium Hydroxide (Mom) 30 ml BEDTIME GT 01/31/18 21:00 03/02/18 20:59 02/01/18 21:19 Magnesium Hydroxide (Mom) 30 ml DAILYPRN PRN GT Constipation 01/31/18 11:15 03/02/18 11:14 Metoprolol Tartrate (Lopressor) 25 mg EVERY 12 HOURS GT 01/31/18 21:00 03/02/18 20:59 02/02/18 09:24 Promethazine HCl/ Codeine (Phenergan with Codeine) 5 ml Q4H PRN ORAL For Cough 01/31/18 11:45 03/02/18 11:44 Risperidone (RisperDAL) 1 mg DAILY GT 02/01/18 09:00 03/03/18 08:59 02/02/18 09:24 Zinc Sulfate (Zinc Sulfate) 220 mg DAILY GT 02/01/18 09:00 03/03/18 08:59 02/02/18 09:24 Lucie Gracia MD Feb 02, 2018 18:09
[2018-02-02 20:00] VITALS: BP 111/59
[2018-02-02] MEDS: Milk of Magnesia 30ml Ud GT SCH (20:52)
[2018-02-02] MEDS: Dyna-Hex 2% Top Sol 2oz TOPIC SCH (20:52)
[2018-02-02] MEDS: Levemir Flexpen SUBQ SCH (20:57)
[2018-02-03] VITALS: BP 100/64
[2018-02-03 04:00] VITALS: BP 101/53
[2018-02-03] MEDS: NovoLOG Insulin Flexpen SUBQ SCH ×5 (06:24→20:36)
--- NOTE | 2018-02-03 06:56 | General Progress Note ---
Assessment/Plan Problem List: (1) Altered level of consciousness ICD Codes: R40.4 - Transient alteration of awareness SNOMED: 7632457 (2) Diabetes mellitus out of control ICD Codes: E11.65 - Diabetes mellitus out of control SNOMED: 344679937 (3) Feeding by G-tube ICD Codes: Z93.1 - Feeding by G-tube SNOMED: 378252517 (4) Toxic metabolic encephalopathy ICD Codes: G92 - Toxic encephalopathy SNOMED: 895553194, [id number] Assessment/Plan DC mealtime Novolog change Levemir to 25 units bid continue NISS Subjective ROS Limited/Unobtainable: Yes Allergies: Coded Allergies: NO KNOWN DRUG ALLERGIES (Unverified Allergy, Unknown, 08/22/15) Subjective events noted Objective Last 24 Hour Vital Signs Date Time Temp Pulse Resp B/P (MAP) Pulse Ox O2 Delivery O2 Flow Rate FiO2 02/03/18 04:00 Venturi Mask 02/03/18 04:00 99.4 93 20 101/53 (69) 99 99.4 02/03/18 00:00 Venturi Mask 02/03/18 00:00 99.0 93 21 100/64 (76) 99 99.0 02/02/18 20:52 109 111/59 02/02/18 20:00 108 02/02/18 20:00 Venturi Mask 02/02/18 20:00 98.9 109 20 111/59 (76) 99 98.9 02/02/18 19:07 103 22 98 Venturi Mask 14.0 55 02/02/18 19:01 Venturi Mask 14.0 55 02/02/18 18:59 100 22 98 Venturi Mask 14.0 55 02/02/18 16:00 Venturi Mask 02/02/18 16:00 94 02/02/18 16:00 98.4 96 19 99/61 (74) 99 98.4 02/02/18 13:28 97 25 98 Venturi Mask 14.0 55 02/02/18 13:19 104 25 98 Venturi Mask 14.0 55 02/02/18 12:00 104 02/02/18 12:00 98.6 96 20 96/61 (73) 98 98.6 02/02/18 12:00 Venturi Mask 02/02/18 10:25 99.4 02/02/18 09:26 99.4 02/02/18 09:24 104 116/69 02/02/18 08:00 99.4 104 19 116/69 (85) 97 99.4 02/02/18 08:00 99.4 104 19 116/69 (85) 97 99.4 02/02/18 08:00 Venturi Mask 02/02/18 08:00 110 02/02/18 07:55 108 25 96 Venturi Mask 14.0 55 02/02/18 07:47 Venturi Mask 14.0 55 02/02/18 07:47 104 25 95 Venturi Mask 14.0 55 Intake and Output 02/02/18 02/03/18 19:00 07:00 Intake Total 1555 ml 1335 ml Output Total 800 ml Balance 755 ml 1335 ml Intake Free Water 50 ml IV Total 710 ml 635 ml Tube Feeding 845 ml 650 ml Output Urine Total 800 ml Height (Feet): 5 Height (Inches): 10.00 Weight (Pounds): 155 General Appearance: no apparent distress Neck: normal alignment Cardiovascular: normal rate Respiratory/Chest: decreased breath sounds Abdomen: normal bowel sounds Pelvis: normal external exam Objective Current Medications Medications (Trade) Dose Ordered Sig/Monalisa Route PRN Reason Start Time Stop Time Status Last Admin Dose Admin Acetaminophen (Tylenol) 650 mg Q4H PRN ORAL Fever/Headache/Mild Pain 01/31/18 11:15 03/02/18 11:14 02/02/18 09:26 Albuterol/ Ipratropium (Albuterol/ Ipratropium) 3 ml Q4H PRN HHN Shortness of Breath 01/31/18 11:15 02/05/18 11:14 Ascorbic Acid (Vitamin C) 500 mg TWICE A DAY GT 01/31/18 18:00 03/02/18 17:59 02/02/18 17:27 Bisacodyl (Dulcolax) 10 mg DAILYPRN PRN RECTAL Constipation 01/31/18 11:15 03/02/18 11:14 Cefepime HCl 1 gm/ Dextrose 110 ml @ 220 mls/hr Q12HR IVPB 02/01/18 21:00 02/08/18 20:59 02/02/18 21:17 Chlorhexidine Gluconate (Palak-Hex 2%) 1 applic DAILY@2000 TOPIC 02/01/18 20:00 03/03/18 19:59 02/02/18 20:52 Dextrose 1,000 ml @ 50 mls/hr Q20H IV 01/31/18 17:45 03/02/18 17:44 02/03/18 06:18 Dextrose (Dextrose 50%) 25 ml STAT PRN IV Hypoglycemia 01/31/18 15:30 03/02/18 15:29 Dextrose (Dextrose 50%) 50 ml STAT PRN IV Hypoglycemia 01/31/18 15:30 03/02/18 15:29 Docusate Sodium (Colace) 100 mg TWICE A DAY GT 01/31/18 18:00 03/02/18 17:59 02/02/18 17:26 Famotidine (Pepcid) 20 mg BEDTIME ORAL 01/31/18 21:00 03/02/18 20:59 02/02/18 20:52 Finasteride (Proscar) 5 mg DAILY ORAL 02/01/18 09:00 03/03/18 08:59 02/02/18 09:24 Heparin Sodium (Porcine) (Heparin 5000 units/ml) 5,000 units EVERY 12 HOURS SUBQ 01/31/18 21:00 03/02/18 20:59 02/02/18 20:56 Insulin Aspart (NovoLOG) BEFORE MEALS AND HS SUBQ 01/31/18 16:30 03/02/18 16:29 02/03/18 06:24 Insulin Aspart (NovoLOG) 8 units NOVOTIAC SUBQ 01/31/18 16:50 03/02/18 16:49 02/03/18 06:24 Insulin Detemir (Levemir) 24 units BEDTIME SUBQ 01/31/18 21:00 03/02/18 20:59 02/02/18 20:57 Lacosamide (Vimpat) 100 mg EVERY 12 HOURS ORAL 01/31/18 21:00 03/02/18 20:59 02/02/18 20:52 Levalbuterol HCl (Xopenex) 1.25 mg TIDRT N 01/31/18 13:00 02/05/18 12:59 02/02/18 18:59 Levetiracetam (Keppra) 2,000 mg BID GT 01/31/18 18:00 03/02/18 17:59 7/8/18 17:23 Lorazepam (Ativan) 1 mg Q12H PRN GT For Anxiety 01/31/18 11:15 02/07/18 11:14 Magnesium Hydroxide (Mom) 30 ml BEDTIME GT 01/31/18 21:00 03/02/18 20:59 02/02/18 20:52 Magnesium Hydroxide (Mom) 30 ml DAILYPRN PRN GT Constipation 01/31/18 11:15 03/02/18 11:14 Metoprolol Tartrate (Lopressor) 25 mg EVERY 12 HOURS GT 01/31/18 21:00 03/02/18 20:59 02/02/18 20:52 Promethazine HCl/ Codeine (Phenergan with Codeine) 5 ml Q4H PRN ORAL For Cough 01/31/18 11:45 03/02/18 11:44 Risperidone (RisperDAL) 1 mg DAILY GT 02/01/18 09:00 03/03/18 08:59 02/02/18 09:24 Zinc Sulfate (Zinc Sulfate) 220 mg DAILY GT 02/01/18 09:00 03/03/18 08:59 02/02/18 09:24 Item Value Date Time Bedside Blood Glucose 219 mg/dl H 02/03/18 0624 Bedside Blood Glucose 227 mg/dl H 02/02/18 2111 Bedside Blood Glucose 259 mg/dl H 02/02/18 1721 Bedside Blood Glucose 266 mg/dl H 02/02/18 1153 Bedside Blood Glucose 225 mg/dl H 02/02/18 0634 Juancho Schmitt MD Feb 03, 2018 06:56
[2018-02-03] MEDS: Levalbuterol Inh UD 1.25mg/0.5ml HHN SCH ×3 (07:27→19:10)
--- NOTE | 2018-02-03 07:35 | Nephrology Progress Note ---
Assessment/Plan Assessment 1. Hypernatremia. 2. Acute renal failure. 3. Chronic kidney disease. 4. Possible diabetic nephropathy. 5. Uncontrolled diabetes. 6. Severe anion gap acidosis with lactic acid of 2.9. 7. Sepsis. 8. Positive urinary tract infection. Plan continue free water continue d5w monitoring renal function avoid NSAID replace electrolyte as need it Objective Objective Last 24 Hour Vital Signs Date Time Temp Pulse Resp B/P (MAP) Pulse Ox O2 Delivery O2 Flow Rate FiO2 02/03/18 07:27 Venturi Mask 14.0 55 02/03/18 07:27 92 20 99 Venturi Mask 14.0 55 02/03/18 04:00 Venturi Mask 02/03/18 04:00 99.4 93 20 101/53 (69) 99 99.4 02/03/18 00:00 Venturi Mask 02/03/18 00:00 99.0 93 21 100/64 (76) 99 99.0 02/02/18 20:52 109 111/59 02/02/18 20:00 108 02/02/18 20:00 Venturi Mask 02/02/18 20:00 98.9 109 20 111/59 (76) 99 98.9 02/02/18 19:07 103 22 98 Venturi Mask 14.0 55 02/02/18 19:01 Venturi Mask 14.0 55 02/02/18 18:59 100 22 98 Venturi Mask 14.0 55 02/02/18 16:00 Venturi Mask 02/02/18 16:00 94 02/02/18 16:00 98.4 96 19 99/61 (74) 99 98.4 02/02/18 13:28 97 25 98 Venturi Mask 14.0 55 02/02/18 13:19 104 25 98 Venturi Mask 14.0 55 02/02/18 12:00 104 02/02/18 12:00 98.6 96 20 96/61 (73) 98 98.6 02/02/18 12:00 Venturi Mask 02/02/18 10:25 99.4 02/02/18 09:26 99.4 02/02/18 09:24 104 116/69 02/02/18 08:00 99.4 104 19 116/69 (85) 97 99.4 02/02/18 08:00 99.4 104 19 116/69 (85) 97 99.4 02/02/18 08:00 Venturi Mask 02/02/18 08:00 110 02/02/18 07:55 108 25 96 Venturi Mask 14.0 55 02/02/18 07:47 Venturi Mask 14.0 55 02/02/18 07:47 104 25 95 Venturi Mask 14.0 55 Intake and Output 02/02/18 02/03/18 19:00 07:00 Intake Total 1555 ml 1335 ml Output Total 800 ml Balance 755 ml 1335 ml Intake Free Water 50 ml IV Total 710 ml 635 ml Tube Feeding 845 ml 650 ml Output Urine Total 800 ml Height (Feet): 5 Height (Inches): 10.00 Weight (Pounds): 155 Objective HEAD AND NECK: No JVP. No LAD. No thyromegaly. Extraocular movements intact. Pupils are reactive to light and accommodation. LUNGS: Decreased breathing sounds on both sides. CARDIAC: Regular rate and rhythm. S1 and S2. No murmur. No rub. ABDOMEN: Soft, nontender, and nondistended. EXTREMITIES: Trace edema. No clubbing. No cyanosis. Michelle Stanley MD Feb 03, 2018 07:35
[2018-02-03 08:00] VITALS: BP 106/61
[2018-02-03] MEDS: Heparin 5000 units/ml inj SUBQ SCH ×2 (09:00→20:35)
[2018-02-03] MEDS: Metoprolol 25mg tab GT SCH ×2 (09:00→20:32)
[2018-02-03] MEDS: Docusate 100mg/10ml Liq GT SCH ×2 (09:25→18:21)
[2018-02-03] MEDS: Ascorbic Acid 500mg tab GT SCH ×2 (09:26→18:21)
[2018-02-03] MEDS: Zinc Sulfate 220mg cap GT SCH (09:26)
[2018-02-03] MEDS: Lacosamide 100 MG TABLET ORAL SCH ×2 (09:26→20:33)
[2018-02-03] MEDS: levETIRAcetam 500mg/5ml Liquid GT SCH ×2 (09:26→18:22)
[2018-02-03] MEDS: Cefepime HCl 1 GM in D5W 110 ML IVPB SCH ×2 (09:26→20:49)
[2018-02-03] MEDS: Levemir Flexpen SUBQ SCH ×2 (10:21→18:23)
--- NOTE | 2018-02-03 11:35 | Pulmonology Progress Note ---
Assessment/Plan Problems: (1) Severe sepsis without septic shock (2) Toxic metabolic encephalopathy (3) Pneumonia (4) Feeding by G-tube (5) cerebral pulsy with advanced mental retardation (6) Seizure disorder, complex partial Assessment/Plan looks more awak on Face mask respiratory treatment check electrolytes all reviewed cardio and ID appreciated pt/ot tolerating diet Subjective ROS Limited/Unobtainable: No Constitutional: Reports: no symptoms HEENT: Repors: no symptoms Respiratory: Reports: no symptoms Allergies: Coded Allergies: NO KNOWN DRUG ALLERGIES (Unverified Allergy, Unknown, 08/22/15) Objective Last 24 Hour Vital Signs Date Time Temp Pulse Resp B/P (MAP) Pulse Ox O2 Delivery O2 Flow Rate FiO2 02/03/18 09:00 Venturi Mask 14.0 Venturi Mask 02/03/18 09:00 99 106/61 02/03/18 08:00 99.1 99 24 106/61 (76) 97 99.1 02/03/18 08:00 102 02/03/18 07:33 92 20 99 Venturi Mask 14.0 55 02/03/18 07:27 Venturi Mask 14.0 55 02/03/18 07:27 92 20 99 Venturi Mask 14.0 55 02/03/18 04:00 Venturi Mask 02/03/18 04:00 99.4 93 20 101/53 (69) 99 99.4 02/03/18 04:00 91 02/03/18 00:00 Venturi Mask 02/03/18 00:00 99.0 93 21 100/64 (76) 99 99.0 02/02/18 20:52 109 111/59 02/02/18 20:00 108 02/02/18 20:00 Venturi Mask 02/02/18 20:00 98.9 109 20 111/59 (76) 99 98.9 02/02/18 19:07 103 22 98 Venturi Mask 14.0 55 02/02/18 19:01 Venturi Mask 14.0 55 02/02/18 18:59 100 22 98 Venturi Mask 14.0 55 02/02/18 16:00 Venturi Mask 02/02/18 16:00 94 02/02/18 16:00 98.4 96 19 99/61 (74) 99 98.4 02/02/18 13:28 97 25 98 Venturi Mask 14.0 55 02/02/18 13:19 104 25 98 Venturi Mask 14.0 55 02/02/18 12:00 104 02/02/18 12:00 98.6 96 20 96/61 (73) 98 98.6 02/02/18 12:00 Venturi Mask Intake and Output 02/02/18 02/03/18 19:00 07:00 Intake Total 1555 ml 1450 ml Output Total 800 ml Balance 755 ml 1450 ml Intake Free Water 50 ml IV Total 710 ml 685 ml Tube Feeding 845 ml 715 ml Output Urine Total 800 ml General Appearance: WD/WN HEENT: normocephalic Respiratory/Chest: chest wall non-tender, lungs clear Cardiovascular: normal peripheral pulses, normal rate Abdomen: normal bowel sounds, soft, non tender Genitourinary: normal external genitalia Skin: no ulcers Lymphatic: no neck adenopathy Microbiology Date/Time Source Procedure Growth Status 01/31/18 13:30 Sputum Gram Stain - Final Resulted 01/31/18 13:30 Sputum Culture - Preliminary Proteus Mirabilis Klebsiella Pneumoniae Escherichia Coli - Esbl Resulted Current Medications Medications (Trade) Dose Ordered Sig/Monalisa Route PRN Reason Start Time Stop Time Status Last Admin Dose Admin Acetaminophen (Tylenol) 650 mg Q4H PRN ORAL Fever/Headache/Mild Pain 01/31/18 11:15 03/02/18 11:14 02/02/18 09:26 Albuterol/ Ipratropium (Albuterol/ Ipratropium) 3 ml Q4H PRN HHN Shortness of Breath 01/31/18 11:15 02/05/18 11:14 Ascorbic Acid (Vitamin C) 500 mg TWICE A DAY GT 01/31/18 18:00 03/02/18 17:59 02/03/18 09:26 Bisacodyl (Dulcolax) 10 mg DAILYPRN PRN RECTAL Constipation 01/31/18 11:15 03/02/18 11:14 Cefepime HCl 1 gm/ Dextrose 110 ml @ 220 mls/hr Q12HR IVPB 02/01/18 21:00 02/08/18 20:59 02/03/18 09:26 Chlorhexidine Gluconate (Palak-Hex 2%) 1 applic DAILY@2000 TOPIC 02/01/18 20:00 03/03/18 19:59 7/8/18 20:52 Dextrose 1,000 ml @ 50 mls/hr Q20H IV 01/31/18 17:45 03/02/18 17:44 02/03/18 06:18 Dextrose (Dextrose 50%) 25 ml STAT PRN IV Hypoglycemia 01/31/18 15:30 03/02/18 15:29 Dextrose (Dextrose 50%) 50 ml STAT PRN IV Hypoglycemia 01/31/18 15:30 03/02/18 15:29 Docusate Sodium (Colace) 100 mg TWICE A DAY GT 01/31/18 18:00 03/02/18 17:59 02/03/18 09:25 Famotidine (Pepcid) 20 mg BEDTIME ORAL 01/31/18 21:00 03/02/18 20:59 02/02/18 20:52 Finasteride (Proscar) 5 mg DAILY ORAL 02/01/18 09:00 03/03/18 08:59 02/03/18 09:26 Heparin Sodium (Porcine) (Heparin 5000 units/ml) 5,000 units EVERY 12 HOURS SUBQ 01/31/18 21:00 03/02/18 20:59 02/02/18 20:56 Insulin Aspart (NovoLOG) BEFORE MEALS AND HS SUBQ 01/31/18 16:30 03/02/18 16:29 02/03/18 06:24 Insulin Detemir (Levemir) 25 units BID SUBQ 02/03/18 09:00 03/02/18 20:59 02/03/18 10:21 Lacosamide (Vimpat) 100 mg EVERY 12 HOURS ORAL 01/31/18 21:00 03/02/18 20:59 02/03/18 09:26 Levalbuterol HCl (Xopenex) 1.25 mg TIDRT HHN 01/31/18 13:00 02/05/18 12:59 02/03/18 07:27 Levetiracetam (Keppra) 2,000 mg BID GT 01/31/18 18:00 03/02/18 17:59 02/03/18 09:26 Lorazepam (Ativan) 1 mg Q12H PRN GT For Anxiety 01/31/18 11:15 02/07/18 11:14 Magnesium Hydroxide (Mom) 30 ml BEDTIME GT 01/31/18 21:00 03/02/18 20:59 02/02/18 20:52 Magnesium Hydroxide (Mom) 30 ml DAILYPRN PRN GT Constipation 01/31/18 11:15 03/02/18 11:14 Metoprolol Tartrate (Lopressor) 25 mg EVERY 12 HOURS GT 01/31/18 21:00 03/02/18 20:59 02/02/18 20:52 Promethazine HCl/ Codeine (Phenergan with Codeine) 5 ml Q4H PRN ORAL For Cough 01/31/18 11:45 03/02/18 11:44 Risperidone (RisperDAL) 1 mg DAILY GT 02/01/18 09:00 03/03/18 08:59 02/03/18 09:26 Zinc Sulfate (Zinc Sulfate) 220 mg DAILY GT 02/01/18 09:00 03/03/18 08:59 02/03/18 09:26 Lucie Gracia MD Feb 03, 2018 11:35
[2018-02-03 12:00] VITALS: BP 98/57
--- NOTE | 2018-02-03 12:40 | Diagnostic Imaging Report ---
Indication: Dyspnea Comparison: 01/31/2018 A single view chest radiograph was obtained. Findings: Mild interstitial edema suspected currently. The jugular line is again noted with the tip in the right atrium. Heart size is stable. IMPRESSION: Suspicion of mild interstitial edema
--- NOTE | 2018-02-03 14:28 | General Progress Note ---
Assessment/Plan Problem List: (1) ARF (acute renal failure) ICD Codes: N17.9 - Acute kidney failure, unspecified SNOMED: 40495736 (2) UTI (urinary tract infection) ICD Codes: N39.0 - Urinary tract infection, site not specified SNOMED: 34428383 (3) Altered level of consciousness ICD Codes: R40.4 - Transient alteration of awareness SNOMED: 6634066 (4) Dehydration ICD Codes: E86.0 - Dehydration SNOMED: 00992597 (5) Acute renal failure ICD Codes: N17.9 - Acute renal failure SNOMED: 32256866 (6) Hypernatremia ICD Codes: E87.0 - Hyperosmolality and hypernatremia SNOMED: 57417074 Status: progressing Assessment/Plan pna still lethargic abx per id mildly improving hypernatremia improving dry sepsis Subjective ROS Limited/Unobtainable: Yes Constitutional: Reports: no symptoms Allergies: Coded Allergies: NO KNOWN DRUG ALLERGIES (Unverified Allergy, Unknown, 08/22/15) Objective Last 24 Hour Vital Signs Date Time Temp Pulse Resp B/P (MAP) Pulse Ox O2 Delivery O2 Flow Rate FiO2 02/03/18 12:35 90 20 99 Venturi Mask 8.0 40 02/03/18 12:29 90 20 96 Venturi Mask 8.0 40 02/03/18 12:00 Venturi Mask 14.0 Venturi Mask 02/03/18 12:00 93 02/03/18 12:00 98.4 86 28 98/57 (71) 97 98.4 02/03/18 09:00 Venturi Mask 14.0 Venturi Mask 02/03/18 09:00 99 106/61 02/03/18 08:00 99.1 99 24 106/61 (76) 97 99.1 02/03/18 08:00 102 02/03/18 07:33 92 20 99 Venturi Mask 14.0 55 02/03/18 07:27 Venturi Mask 14.0 55 02/03/18 07:27 92 20 99 Venturi Mask 14.0 55 02/03/18 04:00 Venturi Mask 02/03/18 04:00 99.4 93 20 101/53 (69) 99 99.4 02/03/18 04:00 91 02/03/18 00:00 Venturi Mask 02/03/18 00:00 99.0 93 21 100/64 (76) 99 99.0 02/02/18 20:52 109 111/59 02/02/18 20:00 108 02/02/18 20:00 Venturi Mask 02/02/18 20:00 98.9 109 20 111/59 (76) 99 98.9 02/02/18 19:07 103 22 98 Venturi Mask 14.0 55 02/02/18 19:01 Venturi Mask 14.0 55 02/02/18 18:59 100 22 98 Venturi Mask 14.0 55 02/02/18 16:00 Venturi Mask 02/02/18 16:00 94 02/02/18 16:00 98.4 96 19 99/61 (74) 99 98.4 Intake and Output 02/02/18 02/03/18 19:00 07:00 Intake Total 1555 ml 1450 ml Output Total 800 ml Balance 755 ml 1450 ml Intake Free Water 50 ml IV Total 710 ml 685 ml Tube Feeding 845 ml 715 ml Output Urine Total 800 ml Height (Feet): 5 Height (Inches): 10.00 Weight (Pounds): 155 Neck: supple Cardiovascular: normal rate Respiratory/Chest: lungs clear Abdomen: soft Amy Martínez MD Feb 03, 2018 14:28
[2018-02-03 16:00] VITALS: BP 100/62
--- NOTE | 2018-02-03 16:10 | Diagnostic Imaging Report ---
Indication: Line placement Comparison: 01/30/2018 A single view chest radiograph was obtained. Findings: Right jugular line in good position. The tip is projected over the right atrium. There is no pneumothorax. No change otherwise. IMPRESSION: Right jugular line in good position. No pneumothorax. Study was received for dictation 02/03/2018.
[2018-02-03 20:00] VITALS: BP 102/61
[2018-02-03] MEDS: Dyna-Hex 2% Top Sol 2oz TOPIC SCH (20:32)
[2018-02-03] MEDS: Milk of Magnesia 30ml Ud GT SCH (20:33)
--- NOTE | 2018-02-03 22:00 | Cardiology Progress Note ---
Assessment/Plan Assessment/Plan 1. Sinus tachycardia, Continue metoprolol. Normal LV systolic function in Jun 2016 with LVEF at 65%. 2. History of cerebrovascular accident. 3. Diabetes mellitus. 4. Hypertension. 5. Acute kidney injury, improved with hydration. 6. Hypernatremia, resolved. 7. Urinary tract infection. Subjective Subjective Sinus rhythm at 99. Objective Last 24 Hour Vital Signs Date Time Temp Pulse Resp B/P (MAP) Pulse Ox O2 Delivery O2 Flow Rate FiO2 02/03/18 20:32 99 102/61 02/03/18 19:25 92 20 99 Venturi Mask 8.0 40 02/03/18 19:11 Venturi Mask 8.0 40 02/03/18 19:10 94 20 98 Venturi Mask 8.0 40 02/03/18 16:00 98 02/03/18 16:00 Venturi Mask 14.0 Venturi Mask 02/03/18 16:00 97.7 98 22 100/62 (75) 97 97.7 02/03/18 12:35 90 20 99 Venturi Mask 8.0 40 02/03/18 12:29 90 20 96 Venturi Mask 8.0 40 02/03/18 12:00 Venturi Mask 14.0 Venturi Mask 02/03/18 12:00 93 02/03/18 12:00 98.4 86 28 98/57 (71) 97 98.4 02/03/18 09:00 Venturi Mask 14.0 Venturi Mask 02/03/18 09:00 99 106/61 02/03/18 08:00 99.1 99 24 106/61 (76) 97 99.1 02/03/18 08:00 102 02/03/18 07:33 92 20 99 Venturi Mask 14.0 55 02/03/18 07:27 Venturi Mask 14.0 55 02/03/18 07:27 92 20 99 Venturi Mask 14.0 55 02/03/18 04:00 Venturi Mask 02/03/18 04:00 99.4 93 20 101/53 (69) 99 99.4 02/03/18 04:00 91 02/03/18 00:00 Venturi Mask 02/03/18 00:00 99.0 93 21 100/64 (76) 99 99.0 Intake and Output 02/02/18 02/03/18 19:00 07:00 Intake Total 1555 ml 1450 ml Output Total 800 ml Balance 755 ml 1450 ml Intake Free Water 50 ml IV Total 710 ml 685 ml Tube Feeding 845 ml 715 ml Output Urine Total 800 ml 2D Echo: Echo from Jun 2017: EF 60-65%, Grade I LVDD, LAE, RVSP 11 mmHg Objective HEENT: Atraumatic and normocephalic. Anicteric. Conjunctival pallor. Pupils are equal, round, and reactive to light and accommodation. NECK: JVP is less than 5 cm. Neck is stiff. Dry mucosal membranes. No carotid bruit. CARDIOVASCULAR: Normal S1 and S2. Regular rate and rhythm. Tachycardic. PMI is at fourth intercostal space at the midclavicular line. LUNGS: Diminished breath sounds with the use of accessory muscle. There is presence of rhonchi and crackles in both bases. GASTROINTESTINAL: Soft, nontender, and nondistended. Presence of a G-tube. EXTREMITIES: No evidence of edema, clubbing, or cyanosis. There is presence of a sacral flap. Sage Banks MD Feb 03, 2018 22:00
[2018-02-04] VITALS: BP 111/68
[2018-02-04 04:00] VITALS: BP 130/67
[2018-02-04 04:49] LABS: BASOPHILS % (AUTO) 1.2 % (0.0-2.0); EOSINOPHILS % (AUTO) 7.4 % (0.0-3.0); HEMATOCRIT 34.6 % (42.0-52.0); HEMOGLOBIN 10.6 G/DL (14.2-18.0); LYMPHOCYTES % (AUTO) 23.3 % (20.0-45.0); MEAN CORPUSCULAR VOLUME 72 FL (80-99); PLATELET COUNT 111 K/UL (150-450); RED BLOOD COUNT 4.81 M/UL (4.70-6.10); RED CELL DISTRIBUTION WIDTH 13.6 % (11.6-14.8); WHITE BLOOD COUNT 6.3 K/UL (4.8-10.8)
[2018-02-04 05:07] LABS: ALANINE AMINOTRANSFERASE 18 U/L (12-78); ALBUMIN 2.2 G/DL (3.4-5.0); ALBUMIN/GLOBULIN RATIO 0.6 (1.0-2.7); ALKALINE PHOSPHATASE 60 U/L (46-116); ANION GAP 4 mmol/L (5-15); ASPARTATE AMINO TRANSFERASE 19 U/L (15-37); BILIRUBIN,TOTAL 0.3 MG/DL (0.2-1.0); BLOOD UREA NITROGEN 17 mg/dL (7-18); CALCIUM 7.9 MG/DL (8.5-10.1); CARBON DIOXIDE 31 MMOL/L (21-32); CHLORIDE 108 MMOL/L (98-107); CREATININE 0.7 MG/DL (0.55-1.30); POTASSIUM 3.2 MMOL/L (3.5-5.1); SODIUM 143 MMOL/L (136-145)
[2018-02-04] MEDS: NovoLOG Insulin Flexpen SUBQ SCH ×4 (06:30→22:01)
[2018-02-04] MEDS: Levalbuterol Inh UD 1.25mg/0.5ml HHN SCH ×3 (06:58→19:04)
--- NOTE | 2018-02-04 06:58 | General Progress Note ---
Assessment/Plan Problem List: (1) Altered level of consciousness ICD Codes: R40.4 - Transient alteration of awareness SNOMED: 5264182 (2) Diabetes mellitus out of control ICD Codes: E11.65 - Diabetes mellitus out of control SNOMED: 736451766 (3) Feeding by G-tube ICD Codes: Z93.1 - Feeding by G-tube SNOMED: 570128176 (4) Toxic metabolic encephalopathy ICD Codes: G92 - Toxic encephalopathy SNOMED: 902791616, 27329961 Assessment/Plan continue Levemir to 25 units bid continue NISS q 6 hours Subjective ROS Limited/Unobtainable: Yes Allergies: Coded Allergies: NO KNOWN DRUG ALLERGIES (Unverified Allergy, Unknown, 08/22/15) Subjective events noted Objective Last 24 Hour Vital Signs Date Time Temp Pulse Resp B/P (MAP) Pulse Ox O2 Delivery O2 Flow Rate FiO2 02/04/18 04:00 Venturi Mask 14.0 Venturi Mask 02/04/18 04:00 99.2 85 18 130/67 (88) 97 99.2 02/04/18 03:43 89 02/04/18 00:00 Venturi Mask 14.0 Venturi Mask 02/04/18 00:00 99.0 87 24 111/68 (82) 98 99.0 02/03/18 23:52 85 02/03/18 20:32 99 102/61 02/03/18 20:00 98.8 99 20 102/61 (75) 95 98.8 02/03/18 20:00 Venturi Mask 14.0 Venturi Mask 02/03/18 19:25 92 20 99 Venturi Mask 8.0 40 02/03/18 19:12 90 02/03/18 19:11 Venturi Mask 8.0 40 02/03/18 19:10 94 20 98 Venturi Mask 8.0 40 02/03/18 16:00 98 02/03/18 16:00 Venturi Mask 14.0 Venturi Mask 02/03/18 16:00 97.7 98 22 100/62 (75) 97 97.7 02/03/18 12:35 90 20 99 Venturi Mask 8.0 40 02/03/18 12:29 90 20 96 Venturi Mask 8.0 40 02/03/18 12:00 Venturi Mask 14.0 Venturi Mask 02/03/18 12:00 93 02/03/18 12:00 98.4 86 28 98/57 (71) 97 98.4 02/03/18 09:00 Venturi Mask 14.0 Venturi Mask 02/03/18 09:00 99 106/61 02/03/18 08:00 99.1 99 24 106/61 (76) 97 99.1 02/03/18 08:00 102 02/03/18 07:33 92 20 99 Venturi Mask 14.0 55 02/03/18 07:27 Venturi Mask 14.0 55 02/03/18 07:27 92 20 99 Venturi Mask 14.0 55 Intake and Output 02/03/18 02/04/18 19:00 07:00 Intake Total 1115 ml 1111.6 ml Output Total 700 ml Balance 415 ml 1111.6 ml Intake Free Water 110 ml IV Total 660 ml 481.6 ml Tube Feeding 455 ml 520 ml Output Urine Total 700 ml # Bowel Movements 3 1 Laboratory Tests 02/04/18 03:30: White Blood Count 6.3, Red Blood Count 4.81, Hemoglobin 10.6L, Hematocrit 34.6L , Mean Corpuscular Volume 72L, Mean Corpuscular Hemoglobin 22.1L, Mean Corpuscular Hemoglobin Concent 30.6L, Red Cell Distribution Width 13.6, Platelet Count 111L, Mean Platelet Volume 10.6H, Neutrophils (%) (Auto) 58.0, Lymphocytes (%) (Auto) 23.3, Monocytes (%) (Auto) 10.0, Eosinophils (%) (Auto) 7.4H, Basophils (%) (Auto) 1.2, Sodium Level 143, Potassium Level 3.2L, Chloride Level 108H, Carbon Dioxide Level 31, Anion Gap 4L, Blood Urea Nitrogen 17, Creatinine 0.7, Estimat Glomerular Filtration Rate > 60, Glucose Level 131H , Calcium Level 7.9L, Phosphorus Level 2.0L, Magnesium Level 2.2, Total Bilirubin 0.3, Aspartate Amino Transf (AST/SGOT) 19, Alanine Aminotransferase ( ALT/SGPT) 18, Alkaline Phosphatase 60, Total Protein 6.0L, Albumin 2.2L, Globulin 3.8, Albumin/Globulin Ratio 0.6L Height (Feet): 5 Height (Inches): 10.00 Weight (Pounds): 155 General Appearance: no apparent distress Neck: normal alignment Cardiovascular: normal rate Respiratory/Chest: decreased breath sounds Abdomen: normal bowel sounds Objective Current Medications Medications (Trade) Dose Ordered Sig/Monalisa Route PRN Reason Start Time Stop Time Status Last Admin Dose Admin Acetaminophen (Tylenol) 650 mg Q4H PRN ORAL Fever/Headache/Mild Pain 01/31/18 11:15 03/02/18 11:14 02/02/18 09:26 Albuterol/ Ipratropium (Albuterol/ Ipratropium) 3 ml Q4H PRN HHN Shortness of Breath 01/31/18 11:15 02/05/18 11:14 Ascorbic Acid (Vitamin C) 500 mg TWICE A DAY GT 01/31/18 18:00 03/02/18 17:59 02/03/18 18:21 Bisacodyl (Dulcolax) 10 mg DAILYPRN PRN RECTAL Constipation 01/31/18 11:15 03/02/18 11:14 Cefepime HCl 1 gm/ Dextrose 110 ml @ 220 mls/hr Q12HR IVPB 02/01/18 21:00 02/08/18 20:59 02/03/18 20:49 Chlorhexidine Gluconate (Palak-Hex 2%) 1 applic DAILY@2000 TOPIC 02/01/18 20:00 03/03/18 19:59 02/03/18 20:32 Dextrose 1,000 ml @ 50 mls/hr Q20H IV 01/31/18 17:45 03/02/18 17:44 02/04/18 02:34 Dextrose (Dextrose 50%) 25 ml STAT PRN IV Hypoglycemia 01/31/18 15:30 03/02/18 15:29 Dextrose (Dextrose 50%) 50 ml STAT PRN IV Hypoglycemia 01/31/18 15:30 03/02/18 15:29 Docusate Sodium (Colace) 100 mg TWICE A DAY GT 01/31/18 18:00 03/02/18 17:59 02/03/18 18:21 Famotidine (Pepcid) 20 mg BEDTIME ORAL 01/31/18 21:00 03/02/18 20:59 02/03/18 20:33 Finasteride (Proscar) 5 mg DAILY ORAL 02/01/18 09:00 03/03/18 08:59 02/03/18 09:26 Heparin Sodium (Porcine) (Heparin 5000 units/ml) 5,000 units EVERY 12 HOURS SUBQ 01/31/18 21:00 03/02/18 20:59 02/03/18 20:35 Insulin Aspart (NovoLOG) BEFORE MEALS AND HS SUBQ 01/31/18 16:30 03/02/18 16:29 02/04/18 06:30 Insulin Detemir (Levemir) 25 units BID SUBQ 02/03/18 09:00 03/02/18 20:59 02/03/18 18:23 Lacosamide (Vimpat) 100 mg EVERY 12 HOURS ORAL 01/31/18 21:00 03/02/18 20:59 02/03/18 20:33 Levalbuterol HCl (Xopenex) 1.25 mg TIDRT HHN 01/31/18 13:00 02/05/18 12:59 02/03/18 19:10 Levetiracetam (Keppra) 2,000 mg BID GT 01/31/18 18:00 03/02/18 17:59 02/03/18 18:22 Lorazepam (Ativan) 1 mg Q12H PRN GT For Anxiety 01/31/18 11:15 02/07/18 11:14 Magnesium Hydroxide (Mom) 30 ml BEDTIME GT 01/31/18 21:00 03/02/18 20:59 02/03/18 20:33 Magnesium Hydroxide (Mom) 30 ml DAILYPRN PRN GT Constipation 01/31/18 11:15 03/02/18 11:14 Metoprolol Tartrate (Lopressor) 25 mg EVERY 12 HOURS GT 01/31/18 21:00 03/02/18 20:59 02/02/18 20:52 Promethazine HCl/ Codeine (Phenergan with Codeine) 5 ml Q4H PRN ORAL For Cough 01/31/18 11:45 03/02/18 11:44 Risperidone (RisperDAL) 1 mg DAILY GT 02/01/18 09:00 03/03/18 08:59 02/03/18 09:26 Zinc Sulfate (Zinc Sulfate) 220 mg DAILY GT 02/01/18 09:00 03/03/18 08:59 02/03/18 09:26 Item Value Date Time Bedside Blood Glucose 159 mg/dl H 02/04/18 0630 Bedside Blood Glucose 172 mg/dl H 02/03/18 2100 Bedside Blood Glucose 156 mg/dl H 02/03/18 1823 Bedside Blood Glucose 220 mg/dl H 02/03/18 1201 Bedside Blood Glucose 219 mg/dl H 02/03/18 1021 Bedside Blood Glucose 219 mg/dl H 02/03/18 0624 Juancho Schmitt MD Feb 04, 2018 06:58
[2018-02-04 08:00] VITALS: BP 108/65
[2018-02-04] MEDS: Metoprolol 25mg tab GT SCH ×2 (09:00→20:43)
[2018-02-04] MEDS: Docusate 100mg/10ml Liq GT SCH ×2 (09:40→17:28)
[2018-02-04] MEDS: Zinc Sulfate 220mg cap GT SCH (09:40)
[2018-02-04] MEDS: Ascorbic Acid 500mg tab GT SCH ×2 (09:41→17:28)
[2018-02-04] MEDS: levETIRAcetam 500mg/5ml Liquid GT SCH ×2 (09:41→17:28)
[2018-02-04] MEDS: Lacosamide 100 MG TABLET ORAL SCH ×2 (09:41→20:42)
[2018-02-04] MEDS: Heparin 5000 units/ml inj SUBQ SCH ×2 (09:42→20:45)
[2018-02-04] MEDS: Levemir Flexpen SUBQ SCH ×2 (09:43→17:29)
[2018-02-04] MEDS: Cefepime HCl 1 GM in D5W 110 ML IVPB SCH (09:55)
--- NOTE | 2018-02-04 11:42 | Pulmonology Progress Note ---
Assessment/Plan Problems: (1) Severe sepsis without septic shock (2) Toxic metabolic encephalopathy (3) Pneumonia (4) Feeding by G-tube (5) cerebral pulsy with advanced mental retardation (6) Seizure disorder, complex partial Assessment/Plan K supplement looks more awake on Face mask respiratory treatment check electrolytes all reviewed cardio and ID appreciated pt/ot tolerating diet Subjective ROS Limited/Unobtainable: No Constitutional: Reports: no symptoms HEENT: Repors: no symptoms Allergies: Coded Allergies: NO KNOWN DRUG ALLERGIES (Unverified Allergy, Unknown, 08/22/15) Objective Last 24 Hour Vital Signs Date Time Temp Pulse Resp B/P (MAP) Pulse Ox O2 Delivery O2 Flow Rate FiO2 02/04/18 09:00 113 108/65 02/04/18 08:00 98.6 102 20 108/65 (79) 98 98.6 02/04/18 08:00 Venturi Mask 14.0 Venturi Mask 02/04/18 08:00 113 02/04/18 07:06 90 20 99 Venturi Mask 8.0 40 02/04/18 06:56 Venturi Mask 8.0 40 02/04/18 06:56 88 20 98 Venturi Mask 8.0 40 02/04/18 04:00 Venturi Mask 14.0 Venturi Mask 02/04/18 04:00 99.2 85 18 130/67 (88) 97 99.2 02/04/18 03:43 89 02/04/18 00:00 Venturi Mask 14.0 Venturi Mask 02/04/18 00:00 99.0 87 24 111/68 (82) 98 99.0 02/03/18 23:52 85 02/03/18 20:32 99 102/61 02/03/18 20:00 98.8 99 20 102/61 (75) 95 98.8 02/03/18 20:00 Venturi Mask 14.0 Venturi Mask 02/03/18 19:25 92 20 99 Venturi Mask 8.0 40 02/03/18 19:12 90 02/03/18 19:11 Venturi Mask 8.0 40 02/03/18 19:10 94 20 98 Venturi Mask 8.0 40 02/03/18 16:00 98 02/03/18 16:00 Venturi Mask 14.0 Venturi Mask 02/03/18 16:00 97.7 98 22 100/62 (75) 97 97.7 02/03/18 12:35 90 20 99 Venturi Mask 8.0 40 02/03/18 12:29 90 20 96 Venturi Mask 8.0 40 02/03/18 12:00 Venturi Mask 14.0 Venturi Mask 02/03/18 12:00 93 02/03/18 12:00 98.4 86 28 98/57 (71) 97 98.4 Intake and Output 02/03/18 02/04/18 19:00 07:00 Intake Total 1115 ml 1571.6 ml Output Total 700 ml 750 ml Balance 415 ml 821.6 ml Intake Free Water 110 ml IV Total 660 ml 681.6 ml Tube Feeding 455 ml 780 ml Output Urine Total 700 ml 750 ml # Bowel Movements 3 2 General Appearance: WD/WN HEENT: normocephalic, anicteric Respiratory/Chest: rhonchi Cardiovascular: normal peripheral pulses, regular rhythm Abdomen: soft, non tender, no organomegaly Genitourinary: normal external genitalia Extremities: no cyanosis Neurologic/Psychiatric: application development liaison II-XII grossly normal, no motor/sensory deficits Lymphatic: no neck adenopathy Laboratory Tests 02/04/18 03:30: White Blood Count 6.3, Red Blood Count 4.81, Hemoglobin 10.6L, Hematocrit 34.6L , Mean Corpuscular Volume 72L, Mean Corpuscular Hemoglobin 22.1L, Mean Corpuscular Hemoglobin Concent 30.6L, Red Cell Distribution Width 13.6, Platelet Count 111L, Mean Platelet Volume 10.6H, Neutrophils (%) (Auto) 58.0, Lymphocytes (%) (Auto) 23.3, Monocytes (%) (Auto) 10.0, Eosinophils (%) (Auto) 7.4H, Basophils (%) (Auto) 1.2, Sodium Level 143, Potassium Level 3.2L, Chloride Level 108H, Carbon Dioxide Level 31, Anion Gap 4L, Blood Urea Nitrogen 17, Creatinine 0.7, Estimat Glomerular Filtration Rate > 60, Glucose Level 131H , Calcium Level 7.9L, Phosphorus Level 2.0L, Magnesium Level 2.2, Total Bilirubin 0.3, Aspartate Amino Transf (AST/SGOT) 19, Alanine Aminotransferase ( ALT/SGPT) 18, Alkaline Phosphatase 60, Total Protein 6.0L, Albumin 2.2L, Globulin 3.8, Albumin/Globulin Ratio 0.6L Current Medications Medications (Trade) Dose Ordered Sig/Monalisa Route PRN Reason Start Time Stop Time Status Last Admin Dose Admin Acetaminophen (Tylenol) 650 mg Q4H PRN ORAL Fever/Headache/Mild Pain 01/31/18 11:15 03/02/18 11:14 02/02/18 09:26 Albuterol/ Ipratropium (Albuterol/ Ipratropium) 3 ml Q4H PRN HHN Shortness of Breath 01/31/18 11:15 02/05/18 11:14 Ascorbic Acid (Vitamin C) 500 mg TWICE A DAY GT 01/31/18 18:00 03/02/18 17:59 02/04/18 09:41 Bisacodyl (Dulcolax) 10 mg DAILYPRN PRN RECTAL Constipation 01/31/18 11:15 03/02/18 11:14 Cefepime HCl 1 gm/ Dextrose 110 ml @ 220 mls/hr Q12HR IVPB 02/01/18 21:00 02/08/18 20:59 02/04/18 09:55 Chlorhexidine Gluconate (Palak-Hex 2%) 1 applic DAILY@2000 TOPIC 02/01/18 20:00 03/03/18 19:59 02/03/18 20:32 Dextrose 1,000 ml @ 50 mls/hr Q20H IV 01/31/18 17:45 03/02/18 17:44 02/04/18 02:34 Dextrose (Dextrose 50%) 25 ml STAT PRN IV Hypoglycemia 01/31/18 15:30 03/02/18 15:29 Dextrose (Dextrose 50%) 50 ml STAT PRN IV Hypoglycemia 01/31/18 15:30 03/02/18 15:29 Docusate Sodium (Colace) 100 mg TWICE A DAY GT 01/31/18 18:00 03/02/18 17:59 02/04/18 09:40 Famotidine (Pepcid) 20 mg BEDTIME ORAL 01/31/18 21:00 03/02/18 20:59 02/03/18 20:33 Finasteride (Proscar) 5 mg DAILY ORAL 02/01/18 09:00 03/03/18 08:59 02/04/18 09:40 Heparin Sodium (Porcine) (Heparin 5000 units/ml) 5,000 units EVERY 12 HOURS SUBQ 01/31/18 21:00 03/02/18 20:59 02/04/18 09:42 Insulin Aspart (NovoLOG) BEFORE MEALS AND HS SUBQ 01/31/18 16:30 03/02/18 16:29 02/04/18 06:30 Insulin Detemir (Levemir) 25 units BID SUBQ 02/03/18 09:00 03/02/18 20:59 02/04/18 09:43 Lacosamide (Vimpat) 100 mg EVERY 12 HOURS ORAL 01/31/18 21:00 03/02/18 20:59 02/04/18 09:41 Levalbuterol HCl (Xopenex) 1.25 mg TIDRT HHN 01/31/18 13:00 02/05/18 12:59 02/04/18 06:58 Levetiracetam (Keppra) 2,000 mg BID GT 01/31/18 18:00 03/02/18 17:59 02/04/18 09:41 Lorazepam (Ativan) 1 mg Q12H PRN GT For Anxiety 01/31/18 11:15 02/07/18 11:14 Magnesium Hydroxide (Mom) 30 ml BEDTIME GT 01/31/18 21:00 03/02/18 20:59 02/03/18 20:33 Magnesium Hydroxide (Mom) 30 ml DAILYPRN PRN GT Constipation 01/31/18 11:15 03/02/18 11:14 Metoprolol Tartrate (Lopressor) 25 mg EVERY 12 HOURS GT 01/31/18 21:00 03/02/18 20:59 02/02/18 20:52 Potassium Chloride (K-Dur) 40 meq ONCE ONCE ORAL 02/04/18 11:45 02/04/18 11:46 UNV Promethazine HCl/ Codeine (Phenergan with Codeine) 5 ml Q4H PRN ORAL For Cough 01/31/18 11:45 03/02/18 11:44 Risperidone (RisperDAL) 1 mg DAILY GT 02/01/18 09:00 03/03/18 08:59 02/04/18 09:40 Zinc Sulfate (Zinc Sulfate) 220 mg DAILY GT 02/01/18 09:00 03/03/18 08:59 02/04/18 09:40 Lucie Gracia MD Feb 04, 2018 11:42
[2018-02-04 12:00] VITALS: BP 109/70
--- NOTE | 2018-02-04 12:05 | Infectious Diseases Prog Note ---
"Assessment/Plan Assessment/Plan antibiotics : cefepime A 1. proteus | klebsiella | e.coli UTI 2. leucocytosis improving 3. diabetes mellitus 4, cerebral palsy P 1. d/c cefepime 2. start meropenem 3. will follow up cultures Subjective ROS Limited/Unobtainable: Yes Allergies: Coded Allergies: NO KNOWN DRUG ALLERGIES (Unverified Allergy, Unknown, 08/22/15) Objective Vital Signs Last 24 Hour Vital Signs Date Time Temp Pulse Resp B/P (MAP) Pulse Ox O2 Delivery O2 Flow Rate FiO2 02/04/18 09:00 113 108/65 02/04/18 08:00 98.6 102 20 108/65 (79) 98 98.6 02/04/18 08:00 Venturi Mask 14.0 Venturi Mask 02/04/18 08:00 113 02/04/18 07:06 90 20 99 Venturi Mask 8.0 40 02/04/18 06:56 Venturi Mask 8.0 40 02/04/18 06:56 88 20 98 Venturi Mask 8.0 40 02/04/18 04:00 Venturi Mask 14.0 Venturi Mask 02/04/18 04:00 99.2 85 18 130/67 (88) 97 99.2 02/04/18 03:43 89 02/04/18 00:00 Venturi Mask 14.0 Venturi Mask 02/04/18 00:00 99.0 87 24 111/68 (82) 98 99.0 02/03/18 23:52 85 02/03/18 20:32 99 102/61 02/03/18 20:00 98.8 99 20 102/61 (75) 95 98.8 02/03/18 20:00 Venturi Mask 14.0 Venturi Mask 02/03/18 19:25 92 20 99 Venturi Mask 8.0 40 02/03/18 19:12 90 02/03/18 19:11 Venturi Mask 8.0 40 02/03/18 19:10 94 20 98 Venturi Mask 8.0 40 02/03/18 16:00 98 02/03/18 16:00 Venturi Mask 14.0 Venturi Mask 02/03/18 16:00 97.7 98 22 100/62 (75) 97 97.7 02/03/18 12:35 90 20 99 Venturi Mask 8.0 40 02/03/18 12:29 90 20 96 Venturi Mask 8.0 40 Height (Feet): 5 Height (Inches): 10.00 Weight (Pounds): 155 Respiratory/Chest: lungs clear Cardiovascular: normal rate, regular rhythm, no gallop/murmur Abdomen: soft, non tender, other - GT Extremities: no edema, other - right IJ catheter Laboratory Tests Test 02/04/18 03:30 White Blood Count 6.3 K/UL (4.8-10.8) Red Blood Count 4.81 M/UL (4.70-6.10) Hemoglobin 10.6 G/DL (14.2-18.0) L Hematocrit 34.6 % (42.0-52.0) L Mean Corpuscular Volume 72 FL (80-99) L Mean Corpuscular Hemoglobin 22.1 PG (27.0-31.0) L Mean Corpuscular Hemoglobin Concent 30.6 G/DL (32.0-36.0) L Red Cell Distribution Width 13.6 % (11.6-14.8) Platelet Count 111 K/UL (150-450) L Mean Platelet Volume 10.6 FL (6.5-10.1) H Neutrophils (%) (Auto) 58.0 % (45.0-75.0) Lymphocytes (%) (Auto) 23.3 % (20.0-45.0) Monocytes (%) (Auto) 10.0 % (1.0-10.0) Eosinophils (%) (Auto) 7.4 % (0.0-3.0) H Basophils (%) (Auto) 1.2 % (0.0-2.0) Sodium Level 143 MMOL/L (136-145) Potassium Level 3.2 MMOL/L (3.5-5.1) L Chloride Level 108 MMOL/L (98-107) H Carbon Dioxide Level 31 MMOL/L (21-32) Anion Gap 4 mmol/L (5-15) L Blood Urea Nitrogen 17 mg/dL (7-18) Creatinine 0.7 MG/DL (0.55-1.30) Estimat Glomerular Filtration Rate > 60 mL/min (>60) Glucose Level 131 MG/DL (74-106) H Calcium Level 7.9 MG/DL (8.5-10.1) L Phosphorus Level 2.0 MG/DL (2.5-4.9) L Magnesium Level 2.2 MG/DL (1.8-2.4) Total Bilirubin 0.3 MG/DL (0.2-1.0) Aspartate Amino Transf (AST/SGOT) 19 U/L (15-37) Alanine Aminotransferase (ALT/SGPT) 18 U/L (12-78) Alkaline Phosphatase 60 U/L (46-116) Total Protein 6.0 G/DL (6.4-8.2) L Albumin 2.2 G/DL (3.4-5.0) L Globulin 3.8 g/dL Albumin/Globulin Ratio 0.6 (1.0-2.7) L Current Medications Medications (Trade) Dose Ordered Sig/Monalisa Route PRN Reason Start Time Stop Time Status Last Admin Dose Admin Acetaminophen (Tylenol) 650 mg Q4H PRN ORAL Fever/Headache/Mild Pain 01/31/18 11:15 03/02/18 11:14 02/02/18 09:26 Albuterol/ Ipratropium (Albuterol/ Ipratropium) 3 ml Q4H PRN HHN Shortness of Breath 01/31/18 11:15 02/05/18 11:14 Ascorbic Acid (Vitamin C) 500 mg TWICE A DAY GT 01/31/18 18:00 03/02/18 17:59 02/04/18 09:41 Bisacodyl (Dulcolax) 10 mg DAILYPRN PRN RECTAL Constipation 01/31/18 11:15 03/02/18 11:14 Cefepime HCl 1 gm/ Dextrose 110 ml @ 220 mls/hr Q12HR IVPB 02/01/18 21:00 02/08/18 20:59 02/04/18 09:55 Chlorhexidine Gluconate (Palak-Hex 2%) 1 applic DAILY@2000 TOPIC 02/01/18 20:00 03/03/18 19:59 02/03/18 20:32 Dextrose 1,000 ml @ 50 mls/hr Q20H IV 01/31/18 17:45 03/02/18 17:44 02/04/18 02:34 Dextrose (Dextrose 50%) 25 ml STAT PRN IV Hypoglycemia 01/31/18 15:30 03/02/18 15:29 Dextrose (Dextrose 50%) 50 ml STAT PRN IV Hypoglycemia 01/31/18 15:30 03/02/18 15:29 Docusate Sodium (Colace) 100 mg TWICE A DAY GT 01/31/18 18:00 03/02/18 17:59 02/04/18 09:40 Famotidine (Pepcid) 20 mg BEDTIME ORAL 01/31/18 21:00 03/02/18 20:59 02/03/18 20:33 Finasteride (Proscar) 5 mg DAILY ORAL 02/01/18 09:00 03/03/18 08:59 02/04/18 09:40 Heparin Sodium (Porcine) (Heparin 5000 units/ml) 5,000 units EVERY 12 HOURS SUBQ 01/31/18 21:00 03/02/18 20:59 02/04/18 09:42 Insulin Aspart (NovoLOG) BEFORE MEALS AND HS SUBQ 01/31/18 16:30 03/02/18 16:29 02/04/18 06:30 Insulin Detemir (Levemir) 25 units BID SUBQ 02/03/18 09:00 03/02/18 20:59 02/04/18 09:43 Lacosamide (Vimpat) 100 mg EVERY 12 HOURS ORAL 01/31/18 21:00 03/02/18 20:59 02/04/18 09:41 Levalbuterol HCl (Xopenex) 1.25 mg TIDRT HHN 01/31/18 13:00 02/05/18 12:59 02/04/18 06:58 Levetiracetam (Keppra) 2,000 mg BID GT 01/31/18 18:00 03/02/18 17:59 02/04/18 09:41 Lorazepam (Ativan) 1 mg Q12H PRN GT For Anxiety 01/31/18 11:15 02/07/18 11:14 Magnesium Hydroxide (Mom) 30 ml BEDTIME GT 01/31/18 21:00 03/02/18 20:59 02/03/18 20:33 Magnesium Hydroxide (Mom) 30 ml DAILYPRN PRN GT Constipation 01/31/18 11:15 03/02/18 11:14 Metoprolol Tartrate (Lopressor) 25 mg EVERY 12 HOURS GT 01/31/18 21:00 8/5/18 20:59 02/02/18 20:52 Potassium Chloride (K-Dur) 40 meq ONCE ONCE ORAL 02/04/18 11:45 02/04/18 11:46 UNV Promethazine HCl/ Codeine (Phenergan with Codeine) 5 ml Q4H PRN ORAL For Cough 01/31/18 11:45 03/02/18 11:44 Risperidone (RisperDAL) 1 mg DAILY GT 02/01/18 09:00 03/03/18 08:59 02/04/18 09:40 Zinc Sulfate (Zinc Sulfate) 220 mg DAILY GT 02/01/18 09:00 03/03/18 08:59 02/04/18 09:40 LIYAH CORTEZ Feb 04, 2018 12:05"
[2018-02-04] MEDS: Meropenem 500 MG in NS 55 ML IVPB SCH ×2 (14:02→22:00)
[2018-02-04 16:00] VITALS: BP 101/69
--- NOTE | 2018-02-04 17:23 | General Progress Note ---
Assessment/Plan Problem List: (1) ARF (acute renal failure) ICD Codes: N17.9 - Acute kidney failure, unspecified SNOMED: 79170650 (2) UTI (urinary tract infection) ICD Codes: N39.0 - Urinary tract infection, site not specified SNOMED: 89459355 (3) Altered level of consciousness ICD Codes: R40.4 - Transient alteration of awareness SNOMED: 9644163 (4) Dehydration ICD Codes: E86.0 - Dehydration SNOMED: 85560836 (5) Acute renal failure ICD Codes: N17.9 - Acute renal failure SNOMED: 62752936 (6) Hypernatremia ICD Codes: E87.0 - Hyperosmolality and hypernatremia SNOMED: 99872099 Status: progressing Assessment/Plan afebrile pna still confused and lethargic needs more fluids and abx dry sepsis Subjective ROS Limited/Unobtainable: Yes Allergies: Coded Allergies: NO KNOWN DRUG ALLERGIES (Unverified Allergy, Unknown, 08/22/15) Objective Last 24 Hour Vital Signs Date Time Temp Pulse Resp B/P (MAP) Pulse Ox O2 Delivery O2 Flow Rate FiO2 02/04/18 16:02 112 02/04/18 16:00 97.9 83 22 101/69 (80) 97 97.9 02/04/18 13:06 86 20 99 Venturi Mask 8.0 40 02/04/18 12:56 92 18 97 Venturi Mask 8.0 40 02/04/18 12:00 Venturi Mask 14.0 Venturi Mask 02/04/18 12:00 98.4 103 24 109/70 (83) 97 98.4 02/04/18 12:00 101 02/04/18 09:00 113 108/65 02/04/18 08:00 98.6 102 20 108/65 (79) 98 98.6 02/04/18 08:00 Venturi Mask 14.0 Venturi Mask 02/04/18 08:00 113 02/04/18 07:06 90 20 99 Venturi Mask 8.0 40 02/04/18 06:56 Venturi Mask 8.0 40 02/04/18 06:56 88 20 98 Venturi Mask 8.0 40 02/04/18 04:00 Venturi Mask 14.0 Venturi Mask 02/04/18 04:00 99.2 85 18 130/67 (88) 97 99.2 02/04/18 03:43 89 02/04/18 00:00 Venturi Mask 14.0 Venturi Mask 02/04/18 00:00 99.0 87 24 111/68 (82) 98 99.0 02/03/18 23:52 85 02/03/18 20:32 99 102/61 02/03/18 20:00 98.8 99 20 102/61 (75) 95 98.8 02/03/18 20:00 Venturi Mask 14.0 Venturi Mask 02/03/18 19:25 92 20 99 Venturi Mask 8.0 40 02/03/18 19:12 90 02/03/18 19:11 Venturi Mask 8.0 40 02/03/18 19:10 94 20 98 Venturi Mask 8.0 40 Intake and Output 02/03/18 02/04/18 19:00 07:00 Intake Total 1115 ml 1571.6 ml Output Total 700 ml 750 ml Balance 415 ml 821.6 ml Intake Free Water 110 ml IV Total 660 ml 681.6 ml Tube Feeding 455 ml 780 ml Output Urine Total 700 ml 750 ml # Bowel Movements 3 2 Laboratory Tests 02/04/18 03:30: White Blood Count 6.3, Red Blood Count 4.81, Hemoglobin 10.6L, Hematocrit 34.6L , Mean Corpuscular Volume 72L, Mean Corpuscular Hemoglobin 22.1L, Mean Corpuscular Hemoglobin Concent 30.6L, Red Cell Distribution Width 13.6, Platelet Count 111L, Mean Platelet Volume 10.6H, Neutrophils (%) (Auto) 58.0, Lymphocytes (%) (Auto) 23.3, Monocytes (%) (Auto) 10.0, Eosinophils (%) (Auto) 7.4H, Basophils (%) (Auto) 1.2, Sodium Level 143, Potassium Level 3.2L, Chloride Level 108H, Carbon Dioxide Level 31, Anion Gap 4L, Blood Urea Nitrogen 17, Creatinine 0.7, Estimat Glomerular Filtration Rate > 60, Glucose Level 131H , Calcium Level 7.9L, Phosphorus Level 2.0L, Magnesium Level 2.2, Total Bilirubin 0.3, Aspartate Amino Transf (AST/SGOT) 19, Alanine Aminotransferase ( ALT/SGPT) 18, Alkaline Phosphatase 60, Total Protein 6.0L, Albumin 2.2L, Globulin 3.8, Albumin/Globulin Ratio 0.6L Height (Feet): 5 Height (Inches): 10.00 Weight (Pounds): 155 General Appearance: confused Cardiovascular: regular rhythm Respiratory/Chest: lungs clear Amy Martínez MD Feb 04, 2018 17:23
--- NOTE | 2018-02-04 18:38 | Nephrology Progress Note ---
Assessment/Plan Assessment 1. Hypernatremia.resolved 2. Acute renal failure. 3. Chronic kidney disease. 4. Possible diabetic nephropathy. 5. Uncontrolled diabetes. 6. Severe anion gap acidosis with lactic acid of 2.9. 7. Sepsis. 8. Positive urinary tract infection. Plan continue free water continue d5w monitoring renal function avoid NSAID replace electrolyte as need it Subjective ROS Limited/Unobtainable: Yes Constitutional: Reports: no symptoms HEENT: Reports: no symptoms Neurologic/Psychiatric: Reports: no symptoms Objective Objective Last 24 Hour Vital Signs Date Time Temp Pulse Resp B/P (MAP) Pulse Ox O2 Delivery O2 Flow Rate FiO2 02/04/18 16:02 112 02/04/18 16:00 Venturi Mask 14.0 Venturi Mask 02/04/18 16:00 97.9 83 22 101/69 (80) 97 97.9 02/04/18 13:06 86 20 99 Venturi Mask 8.0 40 02/04/18 12:56 92 18 97 Venturi Mask 8.0 40 02/04/18 12:00 Venturi Mask 14.0 Venturi Mask 02/04/18 12:00 98.4 103 24 109/70 (83) 97 98.4 02/04/18 12:00 101 02/04/18 09:00 113 108/65 02/04/18 08:00 98.6 102 20 108/65 (79) 98 98.6 02/04/18 08:00 Venturi Mask 14.0 Venturi Mask 02/04/18 08:00 113 02/04/18 07:06 90 20 99 Venturi Mask 8.0 40 02/04/18 06:56 Venturi Mask 8.0 40 02/04/18 06:56 88 20 98 Venturi Mask 8.0 40 02/04/18 04:00 Venturi Mask 14.0 Venturi Mask 02/04/18 04:00 99.2 85 18 130/67 (88) 97 99.2 02/04/18 03:43 89 02/04/18 00:00 Venturi Mask 14.0 Venturi Mask 02/04/18 00:00 99.0 87 24 111/68 (82) 98 99.0 02/03/18 23:52 85 02/03/18 20:32 99 102/61 02/03/18 20:00 98.8 99 20 102/61 (75) 95 98.8 02/03/18 20:00 Venturi Mask 14.0 Venturi Mask 02/03/18 19:25 92 20 99 Venturi Mask 8.0 40 02/03/18 19:12 90 02/03/18 19:11 Venturi Mask 8.0 40 02/03/18 19:10 94 20 98 Venturi Mask 8.0 40 Intake and Output 02/03/18 02/04/18 19:00 07:00 Intake Total 1115 ml 1571.6 ml Output Total 700 ml 750 ml Balance 415 ml 821.6 ml Intake Free Water 110 ml IV Total 660 ml 681.6 ml Tube Feeding 455 ml 780 ml Output Urine Total 700 ml 750 ml # Bowel Movements 3 2 Laboratory Tests 02/04/18 03:30: White Blood Count 6.3, Red Blood Count 4.81, Hemoglobin 10.6L, Hematocrit 34.6L , Mean Corpuscular Volume 72L, Mean Corpuscular Hemoglobin 22.1L, Mean Corpuscular Hemoglobin Concent 30.6L, Red Cell Distribution Width 13.6, Platelet Count 111L, Mean Platelet Volume 10.6H, Neutrophils (%) (Auto) 58.0, Lymphocytes (%) (Auto) 23.3, Monocytes (%) (Auto) 10.0, Eosinophils (%) (Auto) 7.4H, Basophils (%) (Auto) 1.2, Sodium Level 143, Potassium Level 3.2L, Chloride Level 108H, Carbon Dioxide Level 31, Anion Gap 4L, Blood Urea Nitrogen 17, Creatinine 0.7, Estimat Glomerular Filtration Rate > 60, Glucose Level 131H , Calcium Level 7.9L, Phosphorus Level 2.0L, Magnesium Level 2.2, Total Bilirubin 0.3, Aspartate Amino Transf (AST/SGOT) 19, Alanine Aminotransferase ( ALT/SGPT) 18, Alkaline Phosphatase 60, Total Protein 6.0L, Albumin 2.2L, Globulin 3.8, Albumin/Globulin Ratio 0.6L Height (Feet): 5 Height (Inches): 10.00 Weight (Pounds): 155 Objective HEAD AND NECK: No JVP. No LAD. No thyromegaly. Extraocular movements intact. Pupils are reactive to light and accommodation. LUNGS: Decreased breathing sounds on both sides. CARDIAC: Regular rate and rhythm. S1 and S2. No murmur. No rub. ABDOMEN: Soft, nontender, and nondistended. EXTREMITIES: Trace edema. No clubbing. No cyanosis. Michelle Stanley MD Feb 04, 2018 18:37
[2018-02-04 20:00] VITALS: BP 111/66
--- NOTE | 2018-02-04 20:03 | Cardiology Progress Note ---
Assessment/Plan Assessment/Plan 1. Sinus tachycardia, resolving, continue metoprolol. Normal LV systolic function in Jun 2016 with LVEF at 65%. 2. History of cerebrovascular accident. 3. Diabetes mellitus. 4. Hypertension. 5. Acute kidney injury, improved with hydration. 6. Hypernatremia, resolved. 7. Urinary tract infection. Subjective Subjective Sinus rhythm at 93. Objective Last 24 Hour Vital Signs Date Time Temp Pulse Resp B/P (MAP) Pulse Ox O2 Delivery O2 Flow Rate FiO2 02/04/18 19:07 93 20 99 Venturi Mask 8.0 40 02/04/18 19:05 Venturi Mask 8.0 40 02/04/18 19:05 91 18 98 Venturi Mask 8.0 40 02/04/18 16:02 112 02/04/18 16:00 Venturi Mask 14.0 Venturi Mask 02/04/18 16:00 97.9 83 22 101/69 (80) 97 97.9 02/04/18 13:06 86 20 99 Venturi Mask 8.0 40 02/04/18 12:56 92 18 97 Venturi Mask 8.0 40 02/04/18 12:00 Venturi Mask 14.0 Venturi Mask 02/04/18 12:00 98.4 103 24 109/70 (83) 97 98.4 02/04/18 12:00 101 02/04/18 09:00 113 108/65 02/04/18 08:00 98.6 102 20 108/65 (79) 98 98.6 02/04/18 08:00 Venturi Mask 14.0 Venturi Mask 02/04/18 08:00 113 02/04/18 07:06 90 20 99 Venturi Mask 8.0 40 02/04/18 06:56 Venturi Mask 8.0 40 02/04/18 06:56 88 20 98 Venturi Mask 8.0 40 02/04/18 04:00 Venturi Mask 14.0 Venturi Mask 02/04/18 04:00 99.2 85 18 130/67 (88) 97 99.2 02/04/18 03:43 89 02/04/18 00:00 Venturi Mask 14.0 Venturi Mask 02/04/18 00:00 99.0 87 24 111/68 (82) 98 99.0 02/03/18 23:52 85 02/03/18 20:32 99 102/61 Intake and Output 02/03/18 02/04/18 19:00 07:00 Intake Total 1115 ml 1571.6 ml Output Total 700 ml 750 ml Balance 415 ml 821.6 ml Intake Free Water 110 ml IV Total 660 ml 681.6 ml Tube Feeding 455 ml 780 ml Output Urine Total 700 ml 750 ml # Bowel Movements 3 2 2D Echo: EF 60-65%, LAE, RVSP 11 mmHg, Grade I LVDD Laboratory Tests Test 02/04/18 03:30 White Blood Count 6.3 K/UL (4.8-10.8) Red Blood Count 4.81 M/UL (4.70-6.10) Hemoglobin 10.6 G/DL (14.2-18.0) L Hematocrit 34.6 % (42.0-52.0) L Mean Corpuscular Volume 72 FL (80-99) L Mean Corpuscular Hemoglobin 22.1 PG (27.0-31.0) L Mean Corpuscular Hemoglobin Concent 30.6 G/DL (32.0-36.0) L Red Cell Distribution Width 13.6 % (11.6-14.8) Platelet Count 111 K/UL (150-450) L Mean Platelet Volume 10.6 FL (6.5-10.1) H Neutrophils (%) (Auto) 58.0 % (45.0-75.0) Lymphocytes (%) (Auto) 23.3 % (20.0-45.0) Monocytes (%) (Auto) 10.0 % (1.0-10.0) Eosinophils (%) (Auto) 7.4 % (0.0-3.0) H Basophils (%) (Auto) 1.2 % (0.0-2.0) Sodium Level 143 MMOL/L (136-145) Potassium Level 3.2 MMOL/L (3.5-5.1) L Chloride Level 108 MMOL/L (98-107) H Carbon Dioxide Level 31 MMOL/L (21-32) Anion Gap 4 mmol/L (5-15) L Blood Urea Nitrogen 17 mg/dL (7-18) Creatinine 0.7 MG/DL (0.55-1.30) Estimat Glomerular Filtration Rate > 60 mL/min (>60) Glucose Level 131 MG/DL (74-106) H Calcium Level 7.9 MG/DL (8.5-10.1) L Phosphorus Level 2.0 MG/DL (2.5-4.9) L Magnesium Level 2.2 MG/DL (1.8-2.4) Total Bilirubin 0.3 MG/DL (0.2-1.0) Aspartate Amino Transf (AST/SGOT) 19 U/L (15-37) Alanine Aminotransferase (ALT/SGPT) 18 U/L (12-78) Alkaline Phosphatase 60 U/L (46-116) Total Protein 6.0 G/DL (6.4-8.2) L Albumin 2.2 G/DL (3.4-5.0) L Globulin 3.8 g/dL Albumin/Globulin Ratio 0.6 (1.0-2.7) L Objective HEENT: Atraumatic and normocephalic. Anicteric. Conjunctival pallor. Pupils are equal, round, and reactive to light and accommodation. NECK: JVP is less than 5 cm. Neck is stiff. Dry mucosal membranes. No carotid bruit. CARDIOVASCULAR: Normal S1 and S2. Regular rate and rhythm. Tachycardic. PMI is at fourth intercostal space at the midclavicular line. LUNGS: Diminished breath sounds with the use of accessory muscle. There is presence of rhonchi and crackles in both bases. GASTROINTESTINAL: Soft, nontender, and nondistended. Presence of a G-tube. EXTREMITIES: No evidence of edema, clubbing, or cyanosis. There is presence of a sacral flap. Sage Banks MD Feb 04, 2018 20:03
[2018-02-04] MEDS: Milk of Magnesia 30ml Ud GT SCH (20:42)
[2018-02-04] MEDS: Dyna-Hex 2% Top Sol 2oz TOPIC SCH (20:42)
[2018-02-05] VITALS: BP 109/70
[2018-02-05 04:00] VITALS: BP 115/67
[2018-02-05] MEDS: NovoLOG Insulin Flexpen SUBQ SCH ×4 (06:45→21:00)
[2018-02-05] MEDS: Levalbuterol Inh UD 1.25mg/0.5ml HHN SCH (06:48)
[2018-02-05 06:49] LABS: BASOPHILS % (AUTO) 0.9 % (0.0-2.0); HEMOGLOBIN 10.7 G/DL (14.2-18.0); LYMPHOCYTES % (AUTO) 27.5 % (20.0-45.0); MEAN CORPUSCULAR VOLUME 72 FL (80-99); MONOCYTES % (AUTO) 7.3 % (1.0-10.0); NEUTROPHILS % (AUTO) 58.3 % (45.0-75.0); PLATELET COUNT 139 K/UL (150-450); RED BLOOD COUNT 4.72 M/UL (4.70-6.10); RED CELL DISTRIBUTION WIDTH 13.4 % (11.6-14.8)
[2018-02-05] MEDS: Meropenem 500 MG in NS 55 ML IVPB SCH ×3 (07:00→21:42)
--- NOTE | 2018-02-05 07:09 | General Progress Note ---
Assessment/Plan Problem List: (1) Altered level of consciousness ICD Codes: R40.4 - Transient alteration of awareness SNOMED: 1694855 (2) Diabetes mellitus out of control ICD Codes: E11.65 - Diabetes mellitus out of control SNOMED: 146235074 (3) Feeding by G-tube ICD Codes: Z93.1 - Feeding by G-tube SNOMED: 597823512 (4) Toxic metabolic encephalopathy ICD Codes: G92 - Toxic encephalopathy SNOMED: 304634390, 16293079 Assessment/Plan continue Levemir to 25 units bid continue NISS q 6 hours Subjective ROS Limited/Unobtainable: Yes Allergies: Coded Allergies: NO KNOWN DRUG ALLERGIES (Unverified Allergy, Unknown, 08/22/15) Subjective events noted Objective Last 24 Hour Vital Signs Date Time Temp Pulse Resp B/P (MAP) Pulse Ox O2 Delivery O2 Flow Rate FiO2 02/05/18 06:48 Venturi Mask 8.0 40 02/05/18 06:48 85 18 99 Venturi Mask 8.0 40 02/05/18 04:00 81 02/05/18 04:00 Venturi Mask 14.0 Venturi Mask 02/05/18 04:00 98.0 96 22 115/67 (83) 97 98.0 02/05/18 00:00 88 02/05/18 00:00 98.8 96 22 109/70 (83) 97 98.8 02/05/18 00:00 Venturi Mask 14.0 Venturi Mask 02/04/18 20:43 93 110/69 02/04/18 20:00 96 02/04/18 20:00 Venturi Mask 14.0 Venturi Mask 02/04/18 20:00 99.0 95 22 111/66 (81) 97 99.0 02/04/18 19:07 93 20 99 Venturi Mask 8.0 40 02/04/18 19:05 Venturi Mask 8.0 40 02/04/18 19:05 91 18 98 Venturi Mask 8.0 40 02/04/18 16:02 112 02/04/18 16:00 Venturi Mask 14.0 Venturi Mask 02/04/18 16:00 97.9 83 22 101/69 (80) 97 97.9 02/04/18 13:06 86 20 99 Venturi Mask 8.0 40 02/04/18 12:56 92 18 97 Venturi Mask 8.0 40 02/04/18 12:00 Venturi Mask 14.0 Venturi Mask 02/04/18 12:00 98.4 103 24 109/70 (83) 97 98.4 02/04/18 12:00 101 02/04/18 09:00 113 108/65 02/04/18 08:00 98.6 102 20 108/65 (79) 98 98.6 02/04/18 08:00 Venturi Mask 14.0 Venturi Mask 02/04/18 08:00 113 Intake and Output 02/04/18 02/05/18 19:00 07:00 Intake Total 1920 ml 1580 ml Output Total 2000 ml 2000 ml Balance -80 ml -420 ml Intake Free Water 650 ml 200 ml IV Total 815 ml 605 ml Tube Feeding 455 ml 715 ml Other 60 ml Output Urine Total 2000 ml 2000 ml # Bowel Movements 4 2 Laboratory Tests 02/05/18 04:30: White Blood Count 6.0, Red Blood Count 4.72, Hemoglobin 10.7L, Hematocrit 34.0L , Mean Corpuscular Volume 72L, Mean Corpuscular Hemoglobin 22.6L, Mean Corpuscular Hemoglobin Concent 31.4L, Red Cell Distribution Width 13.4, Platelet Count 139L, Mean Platelet Volume 9.2, Neutrophils (%) (Auto) 58.3, Lymphocytes (%) (Auto) 27.5, Monocytes (%) (Auto) 7.3, Eosinophils (%) (Auto) 6.0H, Basophils (%) (Auto) 0.9, Sodium Level [Pending], Potassium Level [Pending ], Chloride Level [Pending], Carbon Dioxide Level [Pending], Blood Urea Nitrogen [Pending], Creatinine [Pending], Estimat Glomerular Filtration Rate [ Pending], Glucose Level [Pending], Calcium Level [Pending], Phosphorus Level [ Pending], Magnesium Level [Pending], Total Bilirubin [Pending], Aspartate Amino Transf (AST/SGOT) [Pending], Alanine Aminotransferase (ALT/SGPT) [Pending], Alkaline Phosphatase [Pending], Total Protein [Pending], Albumin [Pending], Globulin [Pending] Height (Feet): 5 Height (Inches): 10.00 Weight (Pounds): 155 General Appearance: no apparent distress Neck: normal alignment Cardiovascular: normal rate Respiratory/Chest: lungs clear Abdomen: normal bowel sounds Pelvis: normal external exam Objective Current Medications Medications (Trade) Dose Ordered Sig/Monalisa Route PRN Reason Start Time Stop Time Status Last Admin Dose Admin Acetaminophen (Tylenol) 650 mg Q4H PRN ORAL Fever/Headache/Mild Pain 01/31/18 11:15 03/02/18 11:14 02/02/18 09:26 Albuterol/ Ipratropium (Albuterol/ Ipratropium) 3 ml Q4H PRN HHN Shortness of Breath 01/31/18 11:15 02/05/18 11:14 Ascorbic Acid (Vitamin C) 500 mg TWICE A DAY GT 01/31/18 18:00 03/02/18 17:59 02/04/18 17:28 Bisacodyl (Dulcolax) 10 mg DAILYPRN PRN RECTAL Constipation 01/31/18 11:15 03/02/18 11:14 Chlorhexidine Gluconate (Palak-Hex 2%) 1 applic DAILY@2000 TOPIC 02/01/18 20:00 03/03/18 19:59 02/04/18 20:42 Dextrose 1,000 ml @ 50 mls/hr Q20H IV 01/31/18 17:45 03/02/18 17:44 02/04/18 21:01 Dextrose (Dextrose 50%) 25 ml STAT PRN IV Hypoglycemia 01/31/18 15:30 03/02/18 15:29 Dextrose (Dextrose 50%) 50 ml STAT PRN IV Hypoglycemia 01/31/18 15:30 03/02/18 15:29 Docusate Sodium (Colace) 100 mg TWICE A DAY GT 01/31/18 18:00 03/02/18 17:59 02/04/18 17:28 Famotidine (Pepcid) 20 mg BEDTIME ORAL 01/31/18 21:00 03/02/18 20:59 02/04/18 20:43 Finasteride (Proscar) 5 mg DAILY ORAL 02/01/18 09:00 03/03/18 08:59 02/04/18 09:40 Heparin Sodium (Porcine) (Heparin 5000 units/ml) 5,000 units EVERY 12 HOURS SUBQ 01/31/18 21:00 8/5/18 20:59 02/04/18 20:45 Insulin Aspart (NovoLOG) BEFORE MEALS AND HS SUBQ 01/31/18 16:30 03/02/18 16:29 02/05/18 06:45 Insulin Detemir (Levemir) 25 units BID SUBQ 02/03/18 09:00 03/02/18 20:59 02/04/18 17:29 Lacosamide (Vimpat) 100 mg EVERY 12 HOURS ORAL 01/31/18 21:00 03/02/18 20:59 02/04/18 20:42 Levalbuterol HCl (Xopenex) 1.25 mg TIDRT HHN 01/31/18 13:00 02/05/18 12:59 02/05/18 06:48 Levetiracetam (Keppra) 2,000 mg BID GT 01/31/18 18:00 03/02/18 17:59 02/04/18 17:28 Lorazepam (Ativan) 1 mg Q12H PRN GT For Anxiety 01/31/18 11:15 02/07/18 11:14 Magnesium Hydroxide (Mom) 30 ml BEDTIME GT 01/31/18 21:00 03/02/18 20:59 02/04/18 20:42 Magnesium Hydroxide (Mom) 30 ml DAILYPRN PRN GT Constipation 01/31/18 11:15 03/02/18 11:14 Meropenem 500 mg/ Sodium Chloride 55 ml @ 110 mls/hr EVERY 8 HOURS IVPB 02/04/18 14:00 02/09/18 13:59 02/05/18 07:00 Metoprolol Tartrate (Lopressor) 25 mg EVERY 12 HOURS GT 01/31/18 21:00 03/02/18 20:59 02/04/18 20:43 Promethazine HCl/ Codeine (Phenergan with Codeine) 5 ml Q4H PRN ORAL For Cough 01/31/18 11:45 03/02/18 11:44 Risperidone (RisperDAL) 1 mg DAILY GT 02/01/18 09:00 03/03/18 08:59 02/04/18 09:40 Zinc Sulfate (Zinc Sulfate) 220 mg DAILY GT 02/01/18 09:00 03/03/18 08:59 02/04/18 09:40 Item Value Date Time Bedside Blood Glucose 131 mg/dl H 02/05/18 0645 Bedside Blood Glucose 200 mg/dl H 02/04/18 2201 Bedside Blood Glucose 142 mg/dl H 02/04/18 1729 Bedside Blood Glucose 179 mg/dl H 02/04/18 1206 Bedside Blood Glucose 159 mg/dl H 02/04/18 0943 Bedside Blood Glucose 159 mg/dl H 02/04/18 0630 Juancho Schmitt MD Feb 05, 2018 07:09
[2018-02-05 07:38] LABS: ALANINE AMINOTRANSFERASE 26 U/L (12-78); ALBUMIN 2.3 G/DL (3.4-5.0); ALBUMIN/GLOBULIN RATIO 0.5 (1.0-2.7); ALKALINE PHOSPHATASE 70 U/L (46-116); ANION GAP 6 mmol/L (5-15); ASPARTATE AMINO TRANSFERASE 24 U/L (15-37); BILIRUBIN,TOTAL 0.4 MG/DL (0.2-1.0); BLOOD UREA NITROGEN 13 mg/dL (7-18); CALCIUM 8.3 MG/DL (8.5-10.1); CARBON DIOXIDE 28 MMOL/L (21-32); CHLORIDE 107 MMOL/L (98-107); CREATININE 0.7 MG/DL (0.55-1.30); PHOSPHORUS 2.8 MG/DL (2.5-4.9); POTASSIUM 3.6 MMOL/L (3.5-5.1); SODIUM 141 MMOL/L (136-145)
[2018-02-05 08:00] VITALS: BP 95/66
[2018-02-05] MEDS: Docusate 100mg/10ml Liq GT SCH ×2 (08:52→18:19)
[2018-02-05] MEDS: Lacosamide 100 MG TABLET ORAL SCH ×2 (08:53→21:00)
[2018-02-05] MEDS: Ascorbic Acid 500mg tab GT SCH ×2 (08:53→18:19)
[2018-02-05] MEDS: Zinc Sulfate 220mg cap GT SCH (08:53)
[2018-02-05] MEDS: Heparin 5000 units/ml inj SUBQ SCH ×2 (08:58→21:00)
[2018-02-05] MEDS: Metoprolol 25mg tab GT SCH ×2 (09:00→21:01)
[2018-02-05] MEDS: Levemir Flexpen SUBQ SCH ×2 (09:01→18:50)
[2018-02-05] MEDS: levETIRAcetam 500mg/5ml Liquid GT SCH ×2 (09:58→18:19)
--- NOTE | 2018-02-05 11:26 | Pulmonology Progress Note ---
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 (6) Seizure disorder, complex partial Assessment/Plan K supplement looks more awake on Face mask respiratory treatment check electrolytes all reviewed cardio and ID appreciated pt/ot tolerating diet Subjective ROS Limited/Unobtainable: No Constitutional: Reports: no symptoms HEENT: Repors: no symptoms Respiratory: Reports: no symptoms Allergies: Coded Allergies: NO KNOWN DRUG ALLERGIES (Unverified Allergy, Unknown, 08/22/15) Objective Last 24 Hour Vital Signs Date Time Temp Pulse Resp B/P (MAP) Pulse Ox O2 Delivery O2 Flow Rate FiO2 02/05/18 09:00 103 95/66 02/05/18 08:00 Venturi Mask 14.0 Venturi Mask 02/05/18 08:00 98.2 103 16 95/66 (76) 100 98.2 02/05/18 08:00 104 02/05/18 06:56 88 20 99 Venturi Mask 8.0 40 02/05/18 06:48 Venturi Mask 8.0 40 02/05/18 06:48 85 18 99 Venturi Mask 8.0 40 02/05/18 04:00 81 02/05/18 04:00 Venturi Mask 14.0 Venturi Mask 02/05/18 04:00 98.0 96 22 115/67 (83) 97 98.0 02/05/18 00:00 88 02/05/18 00:00 98.8 96 22 109/70 (83) 97 98.8 02/05/18 00:00 Venturi Mask 14.0 Venturi Mask 02/04/18 20:43 93 110/69 02/04/18 20:00 96 02/04/18 20:00 Venturi Mask 14.0 Venturi Mask 02/04/18 20:00 99.0 95 22 111/66 (81) 97 99.0 02/04/18 19:07 93 20 99 Venturi Mask 8.0 40 02/04/18 19:05 Venturi Mask 8.0 40 02/04/18 19:05 91 18 98 Venturi Mask 8.0 40 02/04/18 16:02 112 02/04/18 16:00 Venturi Mask 14.0 Venturi Mask 02/04/18 16:00 97.9 83 22 101/69 (80) 97 97.9 02/04/18 13:06 86 20 99 Venturi Mask 8.0 40 02/04/18 12:56 92 18 97 Venturi Mask 8.0 40 02/04/18 12:00 Venturi Mask 14.0 Venturi Mask 02/04/18 12:00 98.4 103 24 109/70 (83) 97 98.4 02/04/18 12:00 101 Intake and Output 02/04/18 02/05/18 19:00 07:00 Intake Total 1920 ml 1645 ml Output Total 2000 ml 2000 ml Balance -80 ml -355 ml Intake Free Water 650 ml 200 ml IV Total 815 ml 605 ml Tube Feeding 455 ml 780 ml Other 60 ml Output Urine Total 2000 ml 2000 ml # Bowel Movements 4 2 General Appearance: WD/WN HEENT: normocephalic, atraumatic Respiratory/Chest: chest wall non-tender, lungs clear Cardiovascular: normal peripheral pulses, normal rate, no JVD Abdomen: soft, non tender, non distended, no scars Extremities: no clubbing Skin: no rash Laboratory Tests 02/05/18 04:30: White Blood Count 6.0, Red Blood Count 4.72, Hemoglobin 10.7L, Hematocrit 34.0L , Mean Corpuscular Volume 72L, Mean Corpuscular Hemoglobin 22.6L, Mean Corpuscular Hemoglobin Concent 31.4L, Red Cell Distribution Width 13.4, Platelet Count 139L, Mean Platelet Volume 9.2, Neutrophils (%) (Auto) 58.3, Lymphocytes (%) (Auto) 27.5, Monocytes (%) (Auto) 7.3, Eosinophils (%) (Auto) 6.0H, Basophils (%) (Auto) 0.9, Sodium Level 141, Potassium Level 3.6, Chloride Level 107, Carbon Dioxide Level 28, Anion Gap 6, Blood Urea Nitrogen 13, Creatinine 0.7, Estimat Glomerular Filtration Rate > 60, Glucose Level 99, Calcium Level 8.3L, Phosphorus Level 2.8, Magnesium Level 2.2, Total Bilirubin 0.4, Aspartate Amino Transf (AST/SGOT) 24, Alanine Aminotransferase (ALT/SGPT) 26, Alkaline Phosphatase 70, Total Protein 6.5, Albumin 2.3L, Globulin 4.2, Albumin/Globulin Ratio 0.5L Current Medications Medications (Trade) Dose Ordered Sig/Monalisa Route PRN Reason Start Time Stop Time Status Last Admin Dose Admin Acetaminophen (Tylenol) 650 mg Q4H PRN ORAL Fever/Headache/Mild Pain 01/31/18 11:15 03/02/18 11:14 02/02/18 09:26 Ascorbic Acid (Vitamin C) 500 mg TWICE A DAY GT 01/31/18 18:00 03/02/18 17:59 02/05/18 08:53 Bisacodyl (Dulcolax) 10 mg DAILYPRN PRN RECTAL Constipation 01/31/18 11:15 03/02/18 11:14 Chlorhexidine Gluconate (Palak-Hex 2%) 1 applic DAILY@2000 TOPIC 02/01/18 20:00 03/03/18 19:59 02/04/18 20:42 Dextrose 1,000 ml @ 50 mls/hr Q20H IV 01/31/18 17:45 03/02/18 17:44 02/04/18 21:01 Dextrose (Dextrose 50%) 25 ml STAT PRN IV Hypoglycemia 01/31/18 15:30 03/02/18 15:29 Dextrose (Dextrose 50%) 50 ml STAT PRN IV Hypoglycemia 01/31/18 15:30 03/02/18 15:29 Docusate Sodium (Colace) 100 mg TWICE A DAY GT 01/31/18 18:00 03/02/18 17:59 02/05/18 08:52 Famotidine (Pepcid) 20 mg BEDTIME ORAL 01/31/18 21:00 03/02/18 20:59 02/04/18 20:43 Finasteride (Proscar) 5 mg DAILY ORAL 02/01/18 09:00 03/03/18 08:59 02/05/18 08:53 Heparin Sodium (Porcine) (Heparin 5000 units/ml) 5,000 units EVERY 12 HOURS SUBQ 01/31/18 21:00 03/02/18 20:59 02/05/18 08:58 Insulin Aspart (NovoLOG) BEFORE MEALS AND HS SUBQ 01/31/18 16:30 03/02/18 16:29 02/05/18 06:45 Insulin Detemir (Levemir) 25 units BID SUBQ 02/03/18 09:00 03/02/18 20:59 02/05/18 09:01 Lacosamide (Vimpat) 100 mg EVERY 12 HOURS ORAL 01/31/18 21:00 03/02/18 20:59 02/05/18 08:53 Levalbuterol HCl (Xopenex) 1.25 mg TIDRT HHN 01/31/18 13:00 02/05/18 12:59 02/05/18 06:48 Levetiracetam (Keppra) 2,000 mg BID GT 01/31/18 18:00 03/02/18 17:59 02/05/18 09:58 Lorazepam (Ativan) 1 mg Q12H PRN GT For Anxiety 01/31/18 11:15 02/07/18 11:14 Magnesium Hydroxide (Mom) 30 ml BEDTIME GT 01/31/18 21:00 03/02/18 20:59 02/04/18 20:42 Magnesium Hydroxide (Mom) 30 ml DAILYPRN PRN GT Constipation 01/31/18 11:15 03/02/18 11:14 Meropenem 500 mg/ Sodium Chloride 55 ml @ 110 mls/hr EVERY 8 HOURS IVPB 02/04/18 14:00 02/09/18 13:59 02/05/18 07:00 Metoprolol Tartrate (Lopressor) 25 mg EVERY 12 HOURS GT 01/31/18 21:00 03/02/18 20:59 02/04/18 20:43 Promethazine HCl/ Codeine (Phenergan with Codeine) 5 ml Q4H PRN ORAL For Cough 01/31/18 11:45 03/02/18 11:44 Risperidone (RisperDAL) 1 mg DAILY GT 02/01/18 09:00 03/03/18 08:59 02/05/18 08:53 Zinc Sulfate (Zinc Sulfate) 220 mg DAILY GT 02/01/18 09:00 03/03/18 08:59 02/05/18 08:53 Lucie Gracia MD Feb 05, 2018 11:26
[2018-02-05 12:00] VITALS: BP 103/65
--- NOTE | 2018-02-05 12:09 | Consultation ---
History of Present Illness General Date patient seen: Feb 02, 2018 Chief Complaint: Altered Level of Consciousness Present Illness HPI 62-year-old male with multiple medical problems, including history of seizure disorder, history of CVA, history of Parkinson disease, history of cerebral palsy, history of hypertension, COPD, history of diabetes. the pt pw altered mental status and has been more confused. the pt has hx of schizoaffective d/o and was on risperdal and depakote prior to admission. Allergies: Coded Allergies: NO KNOWN DRUG ALLERGIES (Unverified Allergy, Unknown, 08/22/15) Medication History Scheduled Ascorbic Acid* (Vitamin C*), 500 MG GT TWICE A DAY, (Reported) Clotrimazole* (Lotrimin*), 1 APPLIC TOPIC TWICE A DAY, (Reported) Docusate Sodium (Docusate Sodium), 100 MG GT TWICE A DAY, (Reported) Famotidine (Pepcid), 20 MG ORAL BEDTIME, (Reported) Finasteride* (Proscar*), 5 MG GT DAILY, (Reported) Heparin Sod (Porcine) (Heparin Sodium*), 5,000 UNITS SUBQ EVERY 12 HOURS, ( Reported) Insulin Detemir (Levemir Flextouch), 15 UNIT SQ ACBREAKFAST, (Reported) Lacosamide (Vimpat), 100 MG GT EVERY 12 HOURS, (Reported) Levetiracetam* (Levetiracetam*), 2,000 MG GT BID, (Reported) Magnesium Hydroxide (Milk of Magnesia), 30 ML GT BEDTIME, (Reported) Metoprolol Tartrate (Metoprolol Tartrate), 25 MG GT EVERY 12 HOURS, (Reported) Metoprolol Tartrate* (Metoprolol Tartrate*), 25 MG GT EVERY 12 HOURS, (Reported) Multivitamin Liquid* (Multi-Delyn*), 5 ML GT DAILY, (Reported) Omeprazole (Omeprazole), 20 MG GT DAILY, (Reported) Potassium Chloride (Potassium Chloride), 40 MEQ GT BID, (Reported) Ranitidine Hcl* (Zantac*), 150 MG GT BID, (Reported) Risperidone* (Risperdal*), 1 MG GT DAILY, (Reported) Sennosides/Docusate Sodium (Senna Laxative Tablet), 2 EACH GT QHS, (Reported) Valproate Sodium (Valproic Acid), 750 MG GT EVERY 12 HOURS, (Reported) Zinc Sulfate (Zinc Sulfate*), 220 MG ORAL DAILY, (Reported) Scheduled PRN Acetaminophen (Acetaminophen), 325 MG ORAL EVERY 6 HOURS PRN for Mild Pain/Temp > 100.5, (Reported) Acetaminophen* (Acetaminophen 325MG Tablet*), 650 MG ORAL Q4H PRN for Fever/ Headache/Mild Pain, (Reported) Acetaminophen* (Acetaminophen 325MG Tablet*), 650 MG GT Q4H PRN for Fever/ Headache/Mild Pain, (Reported) Albuterol Sulfate* (Albuterol Sulfate Hhn*), 3 ML INH Q4H PRN for Shortness of Breath, (Reported) Bisacodyl (Dulcolax), 10 MG RC DAILY PRN for Constipation, (Reported) Dextrose 50 % In Water (Dextrose 50%-Water Vial), 50 ML IV for Hypoglycemia, ( Reported) Glucagon (Glucagen), 1 MG IJ NEEDED PRN for Hypoglycemia, (Reported) Ipratropium/Albuterol Sulfate (DuoNeb 0.5-3(2.5)mg/3ml), 3 ML HHN Q4HR PRN for Shortness of Breath, (Reported) Lorazepam* (Lorazepam*), 1 MG GT EVERY 12 HOURS PRN for For Anxiety, (Reported) Morphine Sulfate* (Morphine Sulfate*), 2 MG IVP Q4HR PRN for For Pain, (Reported ) Na Phos,M-B/Na Phos,Di-Ba* (Fleet Enema*), 133 ML RECTAL DAILY PRN for Constipation, (Reported) Nitroglycerin (Nitroglycerin), 0.4 MG SL q5mns x three doses PRN for chest pain, (Reported) Ondansetron* (Zofran*), 4 MG GT Q6H PRN for Nausea & Vomiting, (Reported) Polyethylene Glycol 3350* (Miralax*), 17 GM GT DAILY PRN for Constipation, ( Reported) Prochlorperazine Edisylate* (Compazine*), 10 MG IVP Q6H PRN for Nausea & Vomiting, (Reported) Miscellaneous Medications Magnesium Hydroxide* (Milk Of Magnesia*), 30 ML GT, (Reported) Water For Irrigation,Sterile (Water), 1,000 ML IR, (Reported) [insulin novolog], (Reported) Patient History Limited by: medical condition History Provided By: Medical Record, PMD Healthcare decision maker Resuscitation status Full Code Advanced Directive on File No Past Medical/Surgical History Past Medical/Surgical History: (1) Nasal fracture (2) Pansinusitis (3) Adrenal insufficiency (4) Positive blood culture (5) Hyponatremia (6) Hyponatremia (7) Respiratory distress (8) Uncontrolled seizures (9) MODS (multiple organ dysfunction syndrome) (10) Severe sepsis (11) Hypotension (12) Line sepsis (13) JULIO CÉSAR (acute kidney injury) (14) Hyperosmolar coma (15) Failure to thrive (16) Hyperglycemia (17) Hypernatremia (18) Hypokalemia (19) Cellulitis, perineum (20) PEG (percutaneous endoscopic gastrostomy) adjustment/replacement/removal (21) UTI (lower urinary tract infection) (22) Penile discharge (23) Heel sore (24) Colonization with VRE (vancomycin-resistant enterococcus) (25) MRSA colonization (26) Acute lower UTI (27) Tachycardia (28) Epileptic seizure, generalized (29) UTI (urinary tract infection) (30) Dehydration (31) Seizure (32) Hypertension (33) Hyperlipidemia (34) Seizure (35) Acute lower UTI (36) C. difficile colitis (37) Pyuria (38) Dermatitis (39) Pressure ulcer (40) Malfunction of percutaneous endoscopic gastrostomy (PEG) tube (41) Pancytopenia (42) Pseudomonas aeruginosa colonization (43) Sepsis (44) Pneumonia (45) Altered level of consciousness (46) Seizure disorder, partial, intractable (47) Malfunction of gastrostomy tube (48) Diabetes (49) Hypoxia (50) Dehydration (51) Attention to G-tube (52) Lactic acidosis (53) Hyperglycemia (54) Respiratory failure (55) Noncompliance with medication regimen (56) Paraparesis of both lower limbs (57) Anemia (58) Seizure (59) Malfunction of percutaneous endoscopic gastrostomy (PEG) tube (60) Impaired verbal communication (61) Schizophrenia (62) Visit for feeding tube placement (63) Healthcare-associated pneumonia (64) Hyperosmolar syndrome (65) Toxic metabolic encephalopathy (66) Hyperglycemia due to type 1 diabetes mellitus (67) Severe sepsis without septic shock (68) Proteinuria (69) Sepsis (70) Seizure disorder (71) Seizure disorder, complex partial (72) PEG (percutaneous endoscopic gastrostomy) adjustment/replacement/removal (73) cerebral pulsy with advanced mental retardation (74) Pneumonia (75) Feeding by G-tube (76) Dehydration (77) Acute renal failure (78) Hypernatremia (79) UTI (urinary tract infection) (80) ARF (acute renal failure) (81) Altered level of consciousness (82) Altered level of consciousness (83) Diabetes mellitus out of control (84) Sepsis Review of Systems Psychiatric: Reports: anxiety, depressed feelings Physical Exam General Appearance: no apparent distress, alert, confused Last 24 Hour Vital Signs Date Time Temp Pulse Resp B/P (MAP) Pulse Ox O2 Delivery O2 Flow Rate FiO2 02/05/18 09:00 103 95/66 02/05/18 08:00 Venturi Mask 14.0 Venturi Mask 02/05/18 08:00 98.2 103 16 95/66 (76) 100 98.2 02/05/18 08:00 104 02/05/18 06:56 88 20 99 Venturi Mask 8.0 40 02/05/18 06:48 Venturi Mask 8.0 40 02/05/18 06:48 85 18 99 Venturi Mask 8.0 40 02/05/18 04:00 81 02/05/18 04:00 Venturi Mask 14.0 Venturi Mask 02/05/18 04:00 98.0 96 22 115/67 (83) 97 98.0 02/05/18 00:00 88 02/05/18 00:00 98.8 96 22 109/70 (83) 97 98.8 02/05/18 00:00 Venturi Mask 14.0 Venturi Mask 02/04/18 20:43 93 110/69 02/04/18 20:00 96 02/04/18 20:00 Venturi Mask 14.0 Venturi Mask 02/04/18 20:00 99.0 95 22 111/66 (81) 97 99.0 02/04/18 19:07 93 20 99 Venturi Mask 8.0 40 02/04/18 19:05 Venturi Mask 8.0 40 02/04/18 19:05 91 18 98 Venturi Mask 8.0 40 02/04/18 16:02 112 02/04/18 16:00 Venturi Mask 14.0 Venturi Mask 02/04/18 16:00 97.9 83 22 101/69 (80) 97 97.9 02/04/18 13:06 86 20 99 Venturi Mask 8.0 40 02/04/18 12:56 92 18 97 Venturi Mask 8.0 40 Intake and Output 02/04/18 02/05/18 19:00 07:00 Intake Total 1920 ml 1645 ml Output Total 2000 ml 2000 ml Balance -80 ml -355 ml Intake Free Water 650 ml 200 ml IV Total 815 ml 605 ml Tube Feeding 455 ml 780 ml Other 60 ml Output Urine Total 2000 ml 2000 ml # Bowel Movements 4 2 Laboratory Tests Test 02/05/18 04:30 White Blood Count 6.0 K/UL (4.8-10.8) Red Blood Count 4.72 M/UL (4.70-6.10) Hemoglobin 10.7 G/DL (14.2-18.0) L Hematocrit 34.0 % (42.0-52.0) L Mean Corpuscular Volume 72 FL (80-99) L Mean Corpuscular Hemoglobin 22.6 PG (27.0-31.0) L Mean Corpuscular Hemoglobin Concent 31.4 G/DL (32.0-36.0) L Red Cell Distribution Width 13.4 % (11.6-14.8) Platelet Count 139 K/UL (150-450) L Mean Platelet Volume 9.2 FL (6.5-10.1) Neutrophils (%) (Auto) 58.3 % (45.0-75.0) Lymphocytes (%) (Auto) 27.5 % (20.0-45.0) Monocytes (%) (Auto) 7.3 % (1.0-10.0) Eosinophils (%) (Auto) 6.0 % (0.0-3.0) H Basophils (%) (Auto) 0.9 % (0.0-2.0) Sodium Level 141 MMOL/L (136-145) Potassium Level 3.6 MMOL/L (3.5-5.1) Chloride Level 107 MMOL/L (98-107) Carbon Dioxide Level 28 MMOL/L (21-32) Anion Gap 6 mmol/L (5-15) Blood Urea Nitrogen 13 mg/dL (7-18) Creatinine 0.7 MG/DL (0.55-1.30) Estimat Glomerular Filtration Rate > 60 mL/min (>60) Glucose Level 99 MG/DL (74-106) Calcium Level 8.3 MG/DL (8.5-10.1) L Phosphorus Level 2.8 MG/DL (2.5-4.9) Magnesium Level 2.2 MG/DL (1.8-2.4) Total Bilirubin 0.4 MG/DL (0.2-1.0) Aspartate Amino Transf (AST/SGOT) 24 U/L (15-37) Alanine Aminotransferase (ALT/SGPT) 26 U/L (12-78) Alkaline Phosphatase 70 U/L (46-116) Total Protein 6.5 G/DL (6.4-8.2) Albumin 2.3 G/DL (3.4-5.0) L Globulin 4.2 g/dL Albumin/Globulin Ratio 0.5 (1.0-2.7) L Height (Feet): 5 Height (Inches): 10.00 Weight (Pounds): 155 Medications Current Medications Medications (Trade) Dose Ordered Sig/Monalisa Route PRN Reason Start Time Stop Time Status Last Admin Dose Admin Acetaminophen (Tylenol) 650 mg Q4H PRN ORAL Fever/Headache/Mild Pain 01/31/18 11:15 03/02/18 11:14 02/02/18 09:26 Ascorbic Acid (Vitamin C) 500 mg TWICE A DAY GT 01/31/18 18:00 03/02/18 17:59 02/05/18 08:53 Bisacodyl (Dulcolax) 10 mg DAILYPRN PRN RECTAL Constipation 01/31/18 11:15 03/02/18 11:14 Chlorhexidine Gluconate (Palak-Hex 2%) 1 applic DAILY@2000 TOPIC 02/01/18 20:00 03/03/18 19:59 02/04/18 20:42 Dextrose 1,000 ml @ 50 mls/hr Q20H IV 01/31/18 17:45 03/02/18 17:44 02/04/18 21:01 Dextrose (Dextrose 50%) 25 ml STAT PRN IV Hypoglycemia 01/31/18 15:30 03/02/18 15:29 Dextrose (Dextrose 50%) 50 ml STAT PRN IV Hypoglycemia 01/31/18 15:30 03/02/18 15:29 Docusate Sodium (Colace) 100 mg TWICE A DAY GT 01/31/18 18:00 03/02/18 17:59 02/05/18 08:52 Famotidine (Pepcid) 20 mg BEDTIME ORAL 01/31/18 21:00 03/02/18 20:59 02/04/18 20:43 Finasteride (Proscar) 5 mg DAILY ORAL 02/01/18 09:00 03/03/18 08:59 02/05/18 08:53 Heparin Sodium (Porcine) (Heparin 5000 units/ml) 5,000 units EVERY 12 HOURS SUBQ 01/31/18 21:00 03/02/18 20:59 02/05/18 08:58 Insulin Aspart (NovoLOG) BEFORE MEALS AND HS SUBQ 01/31/18 16:30 03/02/18 16:29 02/05/18 06:45 Insulin Detemir (Levemir) 25 units BID SUBQ 02/03/18 09:00 03/02/18 20:59 02/05/18 09:01 Lacosamide (Vimpat) 100 mg EVERY 12 HOURS ORAL 01/31/18 21:00 03/02/18 20:59 02/05/18 08:53 Levalbuterol HCl (Xopenex) 1.25 mg TIDRT HHN 01/31/18 13:00 02/05/18 12:59 02/05/18 06:48 Levetiracetam (Keppra) 2,000 mg BID GT 01/31/18 18:00 03/02/18 17:59 02/05/18 09:58 Lorazepam (Ativan) 1 mg Q12H PRN GT For Anxiety 01/31/18 11:15 02/07/18 11:14 Magnesium Hydroxide (Mom) 30 ml BEDTIME GT 01/31/18 21:00 03/02/18 20:59 02/04/18 20:42 Magnesium Hydroxide (Mom) 30 ml DAILYPRN PRN GT Constipation 01/31/18 11:15 03/02/18 11:14 Meropenem 500 mg/ Sodium Chloride 55 ml @ 110 mls/hr EVERY 8 HOURS IVPB 02/04/18 14:00 02/09/18 13:59 02/05/18 07:00 Metoprolol Tartrate (Lopressor) 25 mg EVERY 12 HOURS GT 01/31/18 21:00 03/02/18 20:59 02/04/18 20:43 Promethazine HCl/ Codeine (Phenergan with Codeine) 5 ml Q4H PRN ORAL For Cough 01/31/18 11:45 03/02/18 11:44 Risperidone (RisperDAL) 1 mg DAILY GT 02/01/18 09:00 03/03/18 08:59 02/05/18 08:53 Zinc Sulfate (Zinc Sulfate) 220 mg DAILY GT 02/01/18 09:00 03/03/18 08:59 02/05/18 08:53 Assessment/Plan Status: stable Assessment/Plan encephalopathy bells palsy schizoaffective d/o risperdal 1mg po daily Kathleen Euceda MD Feb 05, 2018 12:09
--- NOTE | 2018-02-05 12:10 | General Progress Note ---
Assessment/Plan Assessment/Plan encephalopathy bells palsy schizoaffective d/o risperdal 1mg po qhs depakote er 50mg qhs Subjective Date patient seen: Feb 05, 2018 Neurologic/Psychiatric: Reports: anxiety, depressed Allergies: Coded Allergies: NO KNOWN DRUG ALLERGIES (Unverified Allergy, Unknown, 08/22/15) Objective Last 24 Hour Vital Signs Date Time Temp Pulse Resp B/P (MAP) Pulse Ox O2 Delivery O2 Flow Rate FiO2 02/05/18 09:00 103 95/66 02/05/18 08:00 Venturi Mask 14.0 Venturi Mask 02/05/18 08:00 98.2 103 16 95/66 (76) 100 98.2 02/05/18 08:00 104 02/05/18 06:56 88 20 99 Venturi Mask 8.0 40 02/05/18 06:48 Venturi Mask 8.0 40 02/05/18 06:48 85 18 99 Venturi Mask 8.0 40 02/05/18 04:00 81 02/05/18 04:00 Venturi Mask 14.0 Venturi Mask 02/05/18 04:00 98.0 96 22 115/67 (83) 97 98.0 02/05/18 00:00 88 02/05/18 00:00 98.8 96 22 109/70 (83) 97 98.8 02/05/18 00:00 Venturi Mask 14.0 Venturi Mask 02/04/18 20:43 93 110/69 02/04/18 20:00 96 02/04/18 20:00 Venturi Mask 14.0 Venturi Mask 02/04/18 20:00 99.0 95 22 111/66 (81) 97 99.0 02/04/18 19:07 93 20 99 Venturi Mask 8.0 40 02/04/18 19:05 Venturi Mask 8.0 40 02/04/18 19:05 91 18 98 Venturi Mask 8.0 40 02/04/18 16:02 112 02/04/18 16:00 Venturi Mask 14.0 Venturi Mask 02/04/18 16:00 97.9 83 22 101/69 (80) 97 97.9 02/04/18 13:06 86 20 99 Venturi Mask 8.0 40 02/04/18 12:56 92 18 97 Venturi Mask 8.0 40 Intake and Output 02/04/18 02/05/18 19:00 07:00 Intake Total 1920 ml 1645 ml Output Total 2000 ml 2000 ml Balance -80 ml -355 ml Intake Free Water 650 ml 200 ml IV Total 815 ml 605 ml Tube Feeding 455 ml 780 ml Other 60 ml Output Urine Total 2000 ml 2000 ml # Bowel Movements 4 2 Laboratory Tests 02/05/18 04:30: White Blood Count 6.0, Red Blood Count 4.72, Hemoglobin 10.7L, Hematocrit 34.0L , Mean Corpuscular Volume 72L, Mean Corpuscular Hemoglobin 22.6L, Mean Corpuscular Hemoglobin Concent 31.4L, Red Cell Distribution Width 13.4, Platelet Count 139L, Mean Platelet Volume 9.2, Neutrophils (%) (Auto) 58.3, Lymphocytes (%) (Auto) 27.5, Monocytes (%) (Auto) 7.3, Eosinophils (%) (Auto) 6.0H, Basophils (%) (Auto) 0.9, Sodium Level 141, Potassium Level 3.6, Chloride Level 107, Carbon Dioxide Level 28, Anion Gap 6, Blood Urea Nitrogen 13, Creatinine 0.7, Estimat Glomerular Filtration Rate > 60, Glucose Level 99, Calcium Level 8.3L, Phosphorus Level 2.8, Magnesium Level 2.2, Total Bilirubin 0.4, Aspartate Amino Transf (AST/SGOT) 24, Alanine Aminotransferase (ALT/SGPT) 26, Alkaline Phosphatase 70, Total Protein 6.5, Albumin 2.3L, Globulin 4.2, Albumin/Globulin Ratio 0.5L Height (Feet): 5 Height (Inches): 10.00 Weight (Pounds): 155 General Appearance: no apparent distress, alert, confused Kathleen Euceda MD Feb 05, 2018 12:09
[2018-02-05] MEDS ORDERED: LORazepam 1mg tab ORAL PRN ×2 (13:00→18:00)
[2018-02-05 16:00] VITALS: BP 94/62
--- NOTE | 2018-02-05 16:23 | Nephrology Progress Note ---
Assessment/Plan Assessment 1. Hypernatremia.resolved 2. Acute renal failure. 3. Chronic kidney disease. 4. Possible diabetic nephropathy. 5. Uncontrolled diabetes. 6. Severe anion gap acidosis with lactic acid of 2.9. 7. Sepsis. 8. Positive urinary tract infection. Plan continue free water continue d5w monitoring renal function avoid NSAID replace electrolyte as need it Subjective ROS Limited/Unobtainable: Yes Constitutional: Reports: no symptoms HEENT: Reports: no symptoms Genitourinary: Reports: no symptoms Neurologic/Psychiatric: Reports: no symptoms Objective Objective Last 24 Hour Vital Signs Date Time Temp Pulse Resp B/P (MAP) Pulse Ox O2 Delivery O2 Flow Rate FiO2 02/05/18 16:00 Nasal Cannula 2.0 Nasal Cannula 2.0 02/05/18 12:00 88 02/05/18 12:00 97.3 87 18 103/65 (78) 99 97.3 02/05/18 12:00 Nasal Cannula 2.0 Venturi Mask 02/05/18 09:00 103 95/66 02/05/18 08:00 Venturi Mask 14.0 Venturi Mask 02/05/18 08:00 98.2 103 16 95/66 (76) 100 98.2 02/05/18 08:00 104 02/05/18 06:56 88 20 99 Venturi Mask 8.0 40 02/05/18 06:48 Venturi Mask 8.0 40 02/05/18 06:48 85 18 99 Venturi Mask 8.0 40 02/05/18 04:00 81 02/05/18 04:00 Venturi Mask 14.0 Venturi Mask 02/05/18 04:00 98.0 96 22 115/67 (83) 97 98.0 02/05/18 00:00 88 02/05/18 00:00 98.8 96 22 109/70 (83) 97 98.8 02/05/18 00:00 Venturi Mask 14.0 Venturi Mask 02/04/18 20:43 93 110/69 02/04/18 20:00 96 02/04/18 20:00 Venturi Mask 14.0 Venturi Mask 02/04/18 20:00 99.0 95 22 111/66 (81) 97 99.0 02/04/18 19:07 93 20 99 Venturi Mask 8.0 40 02/04/18 19:05 Venturi Mask 8.0 40 02/04/18 19:05 91 18 98 Venturi Mask 8.0 40 Intake and Output 02/04/18 02/05/18 19:00 07:00 Intake Total 1920 ml 1645 ml Output Total 2000 ml 2000 ml Balance -80 ml -355 ml Intake Free Water 650 ml 200 ml IV Total 815 ml 605 ml Tube Feeding 455 ml 780 ml Other 60 ml Output Urine Total 2000 ml 2000 ml # Bowel Movements 4 2 Laboratory Tests 02/05/18 04:30: White Blood Count 6.0, Red Blood Count 4.72, Hemoglobin 10.7L, Hematocrit 34.0L , Mean Corpuscular Volume 72L, Mean Corpuscular Hemoglobin 22.6L, Mean Corpuscular Hemoglobin Concent 31.4L, Red Cell Distribution Width 13.4, Platelet Count 139L, Mean Platelet Volume 9.2, Neutrophils (%) (Auto) 58.3, Lymphocytes (%) (Auto) 27.5, Monocytes (%) (Auto) 7.3, Eosinophils (%) (Auto) 6.0H, Basophils (%) (Auto) 0.9, Sodium Level 141, Potassium Level 3.6, Chloride Level 107, Carbon Dioxide Level 28, Anion Gap 6, Blood Urea Nitrogen 13, Creatinine 0.7, Estimat Glomerular Filtration Rate > 60, Glucose Level 99, Calcium Level 8.3L, Phosphorus Level 2.8, Magnesium Level 2.2, Total Bilirubin 0.4, Aspartate Amino Transf (AST/SGOT) 24, Alanine Aminotransferase (ALT/SGPT) 26, Alkaline Phosphatase 70, Total Protein 6.5, Albumin 2.3L, Globulin 4.2, Albumin/Globulin Ratio 0.5L Height (Feet): 5 Height (Inches): 10.00 Weight (Pounds): 155 Objective HEAD AND NECK: No JVP. No LAD. No thyromegaly. Extraocular movements intact. Pupils are reactive to light and accommodation. LUNGS: Decreased breathing sounds on both sides. CARDIAC: Regular rate and rhythm. S1 and S2. No murmur. No rub. ABDOMEN: Soft, nontender, and nondistended. EXTREMITIES: Trace edema. No clubbing. No cyanosis. Michelle Stanley MD Feb 05, 2018 16:23
[2018-02-05] MEDS ORDERED: Promethazine/Codeine 5ml UD ORAL PRN (17:30)
[2018-02-05] MEDS ORDERED: LORazepam 1mg tab GT PRN (18:00)
[2018-02-05] MEDS ORDERED: Milk of Magnesia 30ml Ud GT PRN (18:00)
[2018-02-05 20:00] VITALS: BP 130/69
[2018-02-05] MEDS ORDERED: Dyna-Hex 2% Top Sol 2oz TOPIC SCH (20:00)
--- NOTE | 2018-02-05 20:20 | Cardiology Progress Note ---
Assessment/Plan Assessment/Plan 1. Sinus tachycardia, on metoprolol. Normal LV systolic function in Jun 2016 with LVEF at 65%. 2. History of cerebrovascular accident. 3. Diabetes mellitus. 4. Hypertension. 5. Acute kidney injury, improved with hydration. 6. Hypernatremia, resolved. 7. Urinary tract infection. Subjective Subjective Sinus rhythm at 96. Non-verbal. Objective Last 24 Hour Vital Signs Date Time Temp Pulse Resp B/P (MAP) Pulse Ox O2 Delivery O2 Flow Rate FiO2 02/05/18 16:00 98.1 96 16 94/62 (73) 97 98.1 02/05/18 16:00 Nasal Cannula 2.0 Nasal Cannula 2.0 02/05/18 16:00 84 02/05/18 12:00 88 02/05/18 12:00 97.3 87 18 103/65 (78) 99 97.3 02/05/18 12:00 Nasal Cannula 2.0 Venturi Mask 02/05/18 09:00 103 95/66 02/05/18 08:00 Venturi Mask 14.0 Venturi Mask 02/05/18 08:00 98.2 103 16 95/66 (76) 100 98.2 02/05/18 08:00 104 02/05/18 06:56 88 20 99 Venturi Mask 8.0 40 02/05/18 06:48 Venturi Mask 8.0 40 02/05/18 06:48 85 18 99 Venturi Mask 8.0 40 02/05/18 04:00 81 02/05/18 04:00 Venturi Mask 14.0 Venturi Mask 02/05/18 04:00 98.0 96 22 115/67 (83) 97 98.0 02/05/18 00:00 88 02/05/18 00:00 98.8 96 22 109/70 (83) 97 98.8 02/05/18 00:00 Venturi Mask 14.0 Venturi Mask 02/04/18 20:43 93 110/69 Intake and Output 02/04/18 02/05/18 19:00 07:00 Intake Total 1920 ml 1645 ml Output Total 2000 ml 2000 ml Balance -80 ml -355 ml Intake Free Water 650 ml 200 ml IV Total 815 ml 605 ml Tube Feeding 455 ml 780 ml Other 60 ml Output Urine Total 2000 ml 2000 ml # Bowel Movements 4 2 2D Echo: EF 60-65%, LAE, Grade I LVDD, RVSP 11 mmHg Laboratory Tests Test 02/05/18 04:30 White Blood Count 6.0 K/UL (4.8-10.8) Red Blood Count 4.72 M/UL (4.70-6.10) Hemoglobin 10.7 G/DL (14.2-18.0) L Hematocrit 34.0 % (42.0-52.0) L Mean Corpuscular Volume 72 FL (80-99) L Mean Corpuscular Hemoglobin 22.6 PG (27.0-31.0) L Mean Corpuscular Hemoglobin Concent 31.4 G/DL (32.0-36.0) L Red Cell Distribution Width 13.4 % (11.6-14.8) Platelet Count 139 K/UL (150-450) L Mean Platelet Volume 9.2 FL (6.5-10.1) Neutrophils (%) (Auto) 58.3 % (45.0-75.0) Lymphocytes (%) (Auto) 27.5 % (20.0-45.0) Monocytes (%) (Auto) 7.3 % (1.0-10.0) Eosinophils (%) (Auto) 6.0 % (0.0-3.0) H Basophils (%) (Auto) 0.9 % (0.0-2.0) Sodium Level 141 MMOL/L (136-145) Potassium Level 3.6 MMOL/L (3.5-5.1) Chloride Level 107 MMOL/L (98-107) Carbon Dioxide Level 28 MMOL/L (21-32) Anion Gap 6 mmol/L (5-15) Blood Urea Nitrogen 13 mg/dL (7-18) Creatinine 0.7 MG/DL (0.55-1.30) Estimat Glomerular Filtration Rate > 60 mL/min (>60) Glucose Level 99 MG/DL (74-106) Calcium Level 8.3 MG/DL (8.5-10.1) L Phosphorus Level 2.8 MG/DL (2.5-4.9) Magnesium Level 2.2 MG/DL (1.8-2.4) Total Bilirubin 0.4 MG/DL (0.2-1.0) Aspartate Amino Transf (AST/SGOT) 24 U/L (15-37) Alanine Aminotransferase (ALT/SGPT) 26 U/L (12-78) Alkaline Phosphatase 70 U/L (46-116) Total Protein 6.5 G/DL (6.4-8.2) Albumin 2.3 G/DL (3.4-5.0) L Globulin 4.2 g/dL Albumin/Globulin Ratio 0.5 (1.0-2.7) L Objective HEENT: Atraumatic and normocephalic. Anicteric. Conjunctival pallor. Pupils are equal, round, and reactive to light and accommodation. NECK: JVP is less than 5 cm. Neck is stiff. Dry mucosal membranes. No carotid bruit. CARDIOVASCULAR: Normal S1 and S2. Regular rate and rhythm. PMI is at fourth intercostal space at the midclavicular line. LUNGS: Diminished breath sounds with the use of accessory muscle. There is presence of rhonchi and crackles in both bases. GASTROINTESTINAL: Soft, nontender, and nondistended. Presence of a G-tube. EXTREMITIES: No evidence of edema, clubbing, or cyanosis. There is presence of a sacral flap. Sage Banks MD Feb 05, 2018 20:20
[2018-02-05] MEDS ORDERED: Depakote ER 500mg tab ORAL SCH ×2 (21:00)
[2018-02-05] MEDS ORDERED: Milk of Magnesia 30ml Ud GT SCH (21:00)
--- NOTE | 2018-02-05 22:04 | General Progress Note ---
Assessment/Plan Problem List: (1) ARF (acute renal failure) ICD Codes: N17.9 - Acute kidney failure, unspecified SNOMED: 86296710 (2) UTI (urinary tract infection) ICD Codes: N39.0 - Urinary tract infection, site not specified SNOMED: 01229713 (3) Altered level of consciousness ICD Codes: R40.4 - Transient alteration of awareness SNOMED: 6027999 (4) Dehydration ICD Codes: E86.0 - Dehydration SNOMED: 91029555 (5) Acute renal failure ICD Codes: N17.9 - Acute renal failure SNOMED: 52813183 (6) Hypernatremia ICD Codes: E87.0 - Hyperosmolality and hypernatremia SNOMED: 70681719 Status: progressing Assessment/Plan dehydrated needs fluid uti abx per id pna still confused and lethargic sepsis Subjective ROS Limited/Unobtainable: Yes Allergies: Coded Allergies: NO KNOWN DRUG ALLERGIES (Unverified Allergy, Unknown, 08/22/15) Objective Last 24 Hour Vital Signs Date Time Temp Pulse Resp B/P (MAP) Pulse Ox O2 Delivery O2 Flow Rate FiO2 02/05/18 21:01 89 130/69 02/05/18 20:20 97 Nasal Cannula 8.0 40 02/05/18 20:19 8.0 40 02/05/18 16:00 98.1 96 16 94/62 (73) 97 98.1 02/05/18 16:00 Nasal Cannula 2.0 Nasal Cannula 2.0 02/05/18 16:00 84 02/05/18 12:00 88 02/05/18 12:00 97.3 87 18 103/65 (78) 99 97.3 02/05/18 12:00 Nasal Cannula 2.0 Venturi Mask 02/05/18 09:00 103 95/66 02/05/18 08:00 Venturi Mask 14.0 Venturi Mask 02/05/18 08:00 98.2 103 16 95/66 (76) 100 98.2 02/05/18 08:00 104 02/05/18 06:56 88 20 99 Venturi Mask 8.0 40 02/05/18 06:48 Venturi Mask 8.0 40 02/05/18 06:48 85 18 99 Venturi Mask 8.0 40 02/05/18 04:00 81 02/05/18 04:00 Venturi Mask 14.0 Venturi Mask 02/05/18 04:00 98.0 96 22 115/67 (83) 97 98.0 02/05/18 00:00 88 02/05/18 00:00 98.8 96 22 109/70 (83) 97 98.8 02/05/18 00:00 Venturi Mask 14.0 Venturi Mask Intake and Output 02/04/18 02/05/18 19:00 07:00 Intake Total 1920 ml 1645 ml Output Total 2000 ml 2000 ml Balance -80 ml -355 ml Intake Free Water 650 ml 200 ml IV Total 815 ml 605 ml Tube Feeding 455 ml 780 ml Other 60 ml Output Urine Total 2000 ml 2000 ml # Bowel Movements 4 2 Laboratory Tests 02/05/18 04:30: White Blood Count 6.0, Red Blood Count 4.72, Hemoglobin 10.7L, Hematocrit 34.0L , Mean Corpuscular Volume 72L, Mean Corpuscular Hemoglobin 22.6L, Mean Corpuscular Hemoglobin Concent 31.4L, Red Cell Distribution Width 13.4, Platelet Count 139L, Mean Platelet Volume 9.2, Neutrophils (%) (Auto) 58.3, Lymphocytes (%) (Auto) 27.5, Monocytes (%) (Auto) 7.3, Eosinophils (%) (Auto) 6.0H, Basophils (%) (Auto) 0.9, Sodium Level 141, Potassium Level 3.6, Chloride Level 107, Carbon Dioxide Level 28, Anion Gap 6, Blood Urea Nitrogen 13, Creatinine 0.7, Estimat Glomerular Filtration Rate > 60, Glucose Level 99, Calcium Level 8.3L, Phosphorus Level 2.8, Magnesium Level 2.2, Total Bilirubin 0.4, Aspartate Amino Transf (AST/SGOT) 24, Alanine Aminotransferase (ALT/SGPT) 26, Alkaline Phosphatase 70, Total Protein 6.5, Albumin 2.3L, Globulin 4.2, Albumin/Globulin Ratio 0.5L Height (Feet): 5 Height (Inches): 10.00 Weight (Pounds): 155 Neck: supple Cardiovascular: normal rate Respiratory/Chest: lungs clear Abdomen: non tender, soft Amy Martínez MD Feb 05, 2018 22:04
[2018-02-06] VITALS: BP 107/68
[2018-02-06 04:00] VITALS: BP 100/74
[2018-02-06] MEDS: Meropenem 500 MG in NS 55 ML IVPB SCH ×2 (05:38→13:56)
[2018-02-06] MEDS: NovoLOG Insulin Flexpen SUBQ SCH ×2 (05:44→13:59)
--- NOTE | 2018-02-06 06:20 | General Progress Note ---
Assessment/Plan Problem List: (1) Altered level of consciousness ICD Codes: R40.4 - Transient alteration of awareness SNOMED: 9285303 (2) Diabetes mellitus out of control ICD Codes: E11.65 - Diabetes mellitus out of control SNOMED: 289441609 (3) Feeding by G-tube ICD Codes: Z93.1 - Feeding by G-tube SNOMED: 278900838 (4) Toxic metabolic encephalopathy ICD Codes: G92 - Toxic encephalopathy SNOMED: 488453814, 85169820 Assessment/Plan continue Levemir to 25 units bid continue NISS q 6 hours Subjective ROS Limited/Unobtainable: Yes Allergies: Coded Allergies: NO KNOWN DRUG ALLERGIES (Unverified Allergy, Unknown, 08/22/15) Subjective events noted - glucose values are well controlled Objective Last 24 Hour Vital Signs Date Time Temp Pulse Resp B/P (MAP) Pulse Ox O2 Delivery O2 Flow Rate FiO2 02/06/18 04:00 98.3 99 18 100/74 (83) 95 98.3 02/06/18 00:00 98.2 91 20 107/68 (81) 96 98.2 02/05/18 21:01 89 130/69 02/05/18 21:00 Room Air Room Air 02/05/18 20:20 97 Nasal Cannula 8.0 40 02/05/18 20:19 8.0 40 02/05/18 20:00 98.6 89 20 130/69 (89) 96 98.6 02/05/18 16:00 98.1 96 16 94/62 (73) 97 98.1 02/05/18 16:00 Nasal Cannula 2.0 Nasal Cannula 2.0 02/05/18 16:00 84 02/05/18 12:00 88 02/05/18 12:00 97.3 87 18 103/65 (78) 99 97.3 02/05/18 12:00 Nasal Cannula 2.0 Venturi Mask 02/05/18 09:00 103 95/66 02/05/18 08:00 Venturi Mask 14.0 Venturi Mask 02/05/18 08:00 98.2 103 16 95/66 (76) 100 98.2 02/05/18 08:00 104 02/05/18 06:56 88 20 99 Venturi Mask 8.0 40 02/05/18 06:48 Venturi Mask 8.0 40 02/05/18 06:48 85 18 99 Venturi Mask 8.0 40 Intake and Output 02/05/18 02/06/18 19:00 07:00 Intake Total 1335 ml 740 ml Output Total 1100 ml Balance 235 ml 740 ml Intake Free Water 120 ml 360 ml IV Total 505 ml 55 ml Tube Feeding 650 ml 325 ml Other 60 ml Output Urine Total 1100 ml # Bowel Movements 1 Height (Feet): 5 Height (Inches): 10.00 Weight (Pounds): 155 General Appearance: no apparent distress Neck: normal alignment Cardiovascular: normal rate Respiratory/Chest: lungs clear Abdomen: normal bowel sounds Objective Current Medications Medications (Trade) Dose Ordered Sig/Monalisa Route PRN Reason Start Time Stop Time Status Last Admin Dose Admin Acetaminophen (Tylenol) 650 mg Q4H PRN ORAL Fever/Headache/Mild Pain 02/05/18 19:15 03/02/18 11:14 Ascorbic Acid (Vitamin C) 500 mg TWICE A DAY GT 02/05/18 18:00 03/02/18 17:59 02/05/18 18:19 Bisacodyl (Dulcolax) 10 mg DAILYPRN PRN RECTAL Constipation 02/05/18 18:00 03/07/18 17:59 Chlorhexidine Gluconate (Palak-Hex 2%) 1 applic DAILY@1999 TOPIC 02/05/18 20:00 03/03/18 19:59 02/05/18 20:59 Dextrose (Dextrose 50%) 25 ml STAT PRN IV Hypoglycemia 02/05/18 18:00 03/07/18 17:59 Dextrose (Dextrose 50%) 50 ml STAT PRN IV Hypoglycemia 02/05/18 18:00 03/07/18 17:59 Divalproex Sodium (Depakote ER) 500 mg BEDTIME ORAL 02/05/18 21:00 03/07/18 20:59 02/05/18 21:00 Docusate Sodium (Colace) 100 mg TWICE A DAY GT 02/05/18 18:00 03/02/18 17:59 02/05/18 18:19 Famotidine (Pepcid) 20 mg BEDTIME ORAL 02/05/18 21:00 03/02/18 20:59 02/05/18 21:00 Finasteride (Proscar) 5 mg DAILY ORAL 02/06/18 09:00 03/03/18 08:59 Heparin Sodium (Porcine) (Heparin 5000 units/ml) 5,000 units EVERY 12 HOURS SUBQ 02/05/18 21:00 03/02/18 20:59 Insulin Aspart (NovoLOG) BEFORE MEALS AND HS SUBQ 02/05/18 21:00 03/02/18 16:29 02/06/18 05:44 Insulin Detemir (Levemir) 25 units BID SUBQ 02/05/18 18:00 03/02/18 20:59 02/05/18 18:50 Lacosamide (Vimpat) 100 mg EVERY 12 HOURS ORAL 02/05/18 21:00 03/02/18 20:59 02/05/18 21:00 Levetiracetam (Keppra) 2,000 mg BID GT 02/05/18 18:00 03/02/18 17:59 02/05/18 18:19 Lorazepam (Ativan) 1 mg Q12H PRN GT For Anxiety 02/05/18 18:00 02/07/18 17:59 Lorazepam (Ativan) 2 mg Q6H PRN ORAL For Anxiety 02/05/18 18:00 02/12/18 17:59 Magnesium Hydroxide (Mom) 30 ml BEDTIME GT 02/05/18 21:00 03/02/18 20:59 02/05/18 20:59 Magnesium Hydroxide (Mom) 30 ml DAILYPRN PRN GT Constipation 02/05/18 18:00 03/07/18 17:59 Meropenem 500 mg/ Sodium Chloride 55 ml @ 110 mls/hr EVERY 8 HOURS IVPB 02/05/18 22:00 02/09/18 13:59 02/06/18 05:38 Metoprolol Tartrate (Lopressor) 25 mg EVERY 12 HOURS GT 02/05/18 21:00 03/02/18 20:59 02/05/18 21:01 Promethazine HCl/ Codeine (Phenergan with Codeine) 5 ml Q4H PRN ORAL For Cough 02/05/18 17:30 03/02/18 17:29 Risperidone (RisperDAL) 1 mg BEDTIME GT 02/05/18 21:00 03/07/18 20:59 02/05/18 21:00 Zinc Sulfate (Zinc Sulfate) 220 mg DAILY GT 02/06/18 09:00 03/03/18 08:59 Item Value Date Time Bedside Blood Glucose 138 mg/dl H 02/06/18 0545 Bedside Blood Glucose 137 mg/dl H 02/06/18 0000 Bedside Blood Glucose 100 mg/dl 02/05/18 2100 Bedside Blood Glucose 134 mg/dl H 02/05/18 1850 Bedside Blood Glucose 168 mg/dl H 02/05/18 1220 Bedside Blood Glucose 183 mg/dl H 02/05/18 0901 Bedside Blood Glucose 131 mg/dl H 02/05/18 0645 Juancho Schmitt MD Feb 06, 2018 06:20
[2018-02-06 08:00] VITALS: BP 102/66
[2018-02-06] MEDS ORDERED: Zinc Sulfate 220mg cap GT SCH (09:00)
[2018-02-06] MEDS: Heparin 5000 units/ml inj SUBQ SCH (09:00)
[2018-02-06] MEDS: Docusate 100mg/10ml Liq GT SCH (09:24)
[2018-02-06] MEDS: levETIRAcetam 500mg/5ml Liquid GT SCH (09:24)
[2018-02-06] MEDS: Lacosamide 100 MG TABLET ORAL SCH (09:25)
[2018-02-06] MEDS: Ascorbic Acid 500mg tab GT SCH (09:25)
[2018-02-06] MEDS: Metoprolol 25mg tab GT SCH (09:26)
[2018-02-06] MEDS: Levemir Flexpen SUBQ SCH (09:28)
[2018-02-06 10:21] LABS: ALANINE AMINOTRANSFERASE 29 U/L (12-78); ALBUMIN 2.4 G/DL (3.4-5.0); ALBUMIN/GLOBULIN RATIO 0.6 (1.0-2.7); ALKALINE PHOSPHATASE 74 U/L (46-116); ANION GAP 6 mmol/L (5-15); ASPARTATE AMINO TRANSFERASE 27 U/L (15-37); BILIRUBIN,TOTAL 0.2 MG/DL (0.2-1.0); BLOOD UREA NITROGEN 17 mg/dL (7-18); CALCIUM 8.1 MG/DL (8.5-10.1); CARBON DIOXIDE 27 MMOL/L (21-32); CHLORIDE 104 MMOL/L (98-107); CREATININE 0.8 MG/DL (0.55-1.30); PHOSPHORUS 2.8 MG/DL (2.5-4.9); POTASSIUM 4.1 MMOL/L (3.5-5.1); SODIUM 137 MMOL/L (136-145)
--- NOTE | 2018-02-06 10:50 | Nephrology Progress Note ---
Assessment/Plan Assessment 1. Hypernatremia.resolved 2. Acute renal failure. 3. Chronic kidney disease. 4. Possible diabetic nephropathy. 5. Uncontrolled diabetes. 6. Severe anion gap acidosis with lactic acid of 2.9. 7. Sepsis. 8. Positive urinary tract infection. Plan continue free water D/C IVF monitoring renal function avoid NSAID replace electrolyte as need it Subjective Constitutional: Reports: no symptoms HEENT: Reports: no symptoms Genitourinary: Reports: no symptoms Neurologic/Psychiatric: Reports: no symptoms Objective Objective Last 24 Hour Vital Signs Date Time Temp Pulse Resp B/P (MAP) Pulse Ox O2 Delivery O2 Flow Rate FiO2 02/06/18 09:26 99 100/74 02/06/18 08:00 98.7 95 18 102/66 (78) 97 98.7 02/06/18 04:00 98.3 99 18 100/74 (83) 95 98.3 02/06/18 00:00 98.2 91 20 107/68 (81) 96 98.2 02/05/18 21:01 89 130/69 02/05/18 21:00 Room Air Room Air 02/05/18 20:20 97 Nasal Cannula 8.0 40 02/05/18 20:19 8.0 40 02/05/18 20:00 98.6 89 20 130/69 (89) 96 98.6 02/05/18 16:00 98.1 96 16 94/62 (73) 97 98.1 02/05/18 16:00 Nasal Cannula 2.0 Nasal Cannula 2.0 02/05/18 16:00 84 02/05/18 12:00 88 02/05/18 12:00 97.3 87 18 103/65 (78) 99 97.3 02/05/18 12:00 Nasal Cannula 2.0 Venturi Mask Intake and Output 02/05/18 02/06/18 19:00 07:00 Intake Total 1335 ml 1610 ml Output Total 1100 ml 1500 ml Balance 235 ml 110 ml Intake Free Water 120 ml 720 ml IV Total 505 ml 110 ml Tube Feeding 650 ml 780 ml Other 60 ml Output Urine Total 1100 ml 1500 ml # Bowel Movements 1 Laboratory Tests 02/06/18 09:55: Sodium Level 137, Potassium Level 4.1, Chloride Level 104, Carbon Dioxide Level 27, Anion Gap 6, Blood Urea Nitrogen 17, Creatinine 0.8, Estimat Glomerular Filtration Rate > 60, Glucose Level 158H, Calcium Level 8.1L, Phosphorus Level 2.8, Magnesium Level 2.1, Total Bilirubin 0.2, Aspartate Amino Transf (AST/SGOT ) 27, Alanine Aminotransferase (ALT/SGPT) 29, Alkaline Phosphatase 74, C- Reactive Protein, Quantitative 4.7H, Total Protein 6.4, Albumin 2.4L, Globulin 4.0, Albumin/Globulin Ratio 0.6L Height (Feet): 5 Height (Inches): 10.00 Weight (Pounds): 155 Objective HEAD AND NECK: No JVP. No LAD. No thyromegaly. Extraocular movements intact. Pupils are reactive to light and accommodation. LUNGS: Decreased breathing sounds on both sides. CARDIAC: Regular rate and rhythm. S1 and S2. No murmur. No rub. ABDOMEN: Soft, nontender, and nondistended. EXTREMITIES: Trace edema. No clubbing. No cyanosis. Michelle Stanley MD Feb 06, 2018 10:50
--- NOTE | 2018-02-06 11:08 | General Progress Note ---
Assessment/Plan Problem List: (1) ARF (acute renal failure) ICD Codes: N17.9 - Acute kidney failure, unspecified SNOMED: 28707147 (2) UTI (urinary tract infection) ICD Codes: N39.0 - Urinary tract infection, site not specified SNOMED: 29597544 (3) Altered level of consciousness ICD Codes: R40.4 - Transient alteration of awareness SNOMED: 9534915 (4) Dehydration ICD Codes: E86.0 - Dehydration SNOMED: 01575462 (5) Acute renal failure ICD Codes: N17.9 - Acute renal failure SNOMED: 33598994 (6) Hypernatremia ICD Codes: E87.0 - Hyperosmolality and hypernatremia SNOMED: 26211049 Status: progressing Assessment/Plan lytes normalized w fluid challenge afebrile gave dc order back to facility abx per id sepsis Subjective ROS Limited/Unobtainable: Yes Allergies: Coded Allergies: NO KNOWN DRUG ALLERGIES (Unverified Allergy, Unknown, 08/22/15) Objective Last 24 Hour Vital Signs Date Time Temp Pulse Resp B/P (MAP) Pulse Ox O2 Delivery O2 Flow Rate FiO2 02/06/18 09:26 99 100/74 02/06/18 08:00 98.7 95 18 102/66 (78) 97 98.7 02/06/18 04:00 98.3 99 18 100/74 (83) 95 98.3 02/06/18 00:00 98.2 91 20 107/68 (81) 96 98.2 02/05/18 21:01 89 130/69 02/05/18 21:00 Room Air Room Air 02/05/18 20:20 97 Nasal Cannula 8.0 40 02/05/18 20:19 8.0 40 02/05/18 20:00 98.6 89 20 130/69 (89) 96 98.6 02/05/18 16:00 98.1 96 16 94/62 (73) 97 98.1 02/05/18 16:00 Nasal Cannula 2.0 Nasal Cannula 2.0 02/05/18 16:00 84 02/05/18 12:00 88 02/05/18 12:00 97.3 87 18 103/65 (78) 99 97.3 02/05/18 12:00 Nasal Cannula 2.0 Venturi Mask Intake and Output 02/05/18 02/06/18 19:00 07:00 Intake Total 1335 ml 1610 ml Output Total 1100 ml 1500 ml Balance 235 ml 110 ml Intake Free Water 120 ml 720 ml IV Total 505 ml 110 ml Tube Feeding 650 ml 780 ml Other 60 ml Output Urine Total 1100 ml 1500 ml # Bowel Movements 1 Laboratory Tests 02/06/18 09:55: Sodium Level 137, Potassium Level 4.1, Chloride Level 104, Carbon Dioxide Level 27, Anion Gap 6, Blood Urea Nitrogen 17, Creatinine 0.8, Estimat Glomerular Filtration Rate > 60, Glucose Level 158H, Calcium Level 8.1L, Phosphorus Level 2.8, Magnesium Level 2.1, Total Bilirubin 0.2, Aspartate Amino Transf (AST/SGOT ) 27, Alanine Aminotransferase (ALT/SGPT) 29, Alkaline Phosphatase 74, C- Reactive Protein, Quantitative 4.7H, Total Protein 6.4, Albumin 2.4L, Globulin 4.0, Albumin/Globulin Ratio 0.6L Height (Feet): 5 Height (Inches): 10.00 Weight (Pounds): 155 Respiratory/Chest: lungs clear Abdomen: soft Amy Martínez MD Feb 06, 2018 11:07
--- NOTE | 2018-02-06 11:39 | General Progress Note ---
Assessment/Plan Status: stable, progressing Assessment/Plan encephalopathy bells palsy schizoaffective d/o risperdal 1mg po qhs depakote er 50mg qhs Subjective Date patient seen: Feb 06, 2018 Neurologic/Psychiatric: Reports: anxiety, depressed, emotional problems Allergies: Coded Allergies: NO KNOWN DRUG ALLERGIES (Unverified Allergy, Unknown, 08/22/15) Objective Last 24 Hour Vital Signs Date Time Temp Pulse Resp B/P (MAP) Pulse Ox O2 Delivery O2 Flow Rate FiO2 02/06/18 09:26 99 100/74 02/06/18 08:00 98.7 95 18 102/66 (78) 97 98.7 02/06/18 04:00 98.3 99 18 100/74 (83) 95 98.3 02/06/18 00:00 98.2 91 20 107/68 (81) 96 98.2 02/05/18 21:01 89 130/69 02/05/18 21:00 Room Air Room Air 02/05/18 20:20 97 Nasal Cannula 8.0 40 02/05/18 20:19 8.0 40 02/05/18 20:00 98.6 89 20 130/69 (89) 96 98.6 02/05/18 16:00 98.1 96 16 94/62 (73) 97 98.1 02/05/18 16:00 Nasal Cannula 2.0 Nasal Cannula 2.0 02/05/18 16:00 84 02/05/18 12:00 88 02/05/18 12:00 97.3 87 18 103/65 (78) 99 97.3 02/05/18 12:00 Nasal Cannula 2.0 Venturi Mask Intake and Output 02/05/18 02/06/18 19:00 07:00 Intake Total 1335 ml 1610 ml Output Total 1100 ml 1500 ml Balance 235 ml 110 ml Intake Free Water 120 ml 720 ml IV Total 505 ml 110 ml Tube Feeding 650 ml 780 ml Other 60 ml Output Urine Total 1100 ml 1500 ml # Bowel Movements 1 Laboratory Tests 02/06/18 09:55: Sodium Level 137, Potassium Level 4.1, Chloride Level 104, Carbon Dioxide Level 27, Anion Gap 6, Blood Urea Nitrogen 17, Creatinine 0.8, Estimat Glomerular Filtration Rate > 60, Glucose Level 158H, Calcium Level 8.1L, Phosphorus Level 2.8, Magnesium Level 2.1, Total Bilirubin 0.2, Aspartate Amino Transf (AST/SGOT ) 27, Alanine Aminotransferase (ALT/SGPT) 29, Alkaline Phosphatase 74, C- Reactive Protein, Quantitative 4.7H, Total Protein 6.4, Albumin 2.4L, Globulin 4.0, Albumin/Globulin Ratio 0.6L Height (Feet): 5 Height (Inches): 10.00 Weight (Pounds): 155 General Appearance: WD/WN, no apparent distress, alert, confused Kathleen Euceda MD Feb 06, 2018 11:39
--- NOTE | 2018-02-06 11:52 | Infectious Diseases Prog Note ---
"Assessment/Plan Assessment/Plan antibiotics : meropenem A 1. proteus | klebsiella | e.coli pneumonia 2. leucocytosis improving 3. diabetes mellitus 4, cerebral palsy P 1. continue meropenem 4 more days 2. will follow up cultures Subjective ROS Limited/Unobtainable: Yes Allergies: Coded Allergies: NO KNOWN DRUG ALLERGIES (Unverified Allergy, Unknown, 08/22/15) Objective Vital Signs Last 24 Hour Vital Signs Date Time Temp Pulse Resp B/P (MAP) Pulse Ox O2 Delivery O2 Flow Rate FiO2 02/06/18 09:26 99 100/74 02/06/18 08:00 98.7 95 18 102/66 (78) 97 98.7 02/06/18 04:00 98.3 99 18 100/74 (83) 95 98.3 02/06/18 00:00 98.2 91 20 107/68 (81) 96 98.2 02/05/18 21:01 89 130/69 02/05/18 21:00 Room Air Room Air 02/05/18 20:20 97 Nasal Cannula 8.0 40 02/05/18 20:19 8.0 40 02/05/18 20:00 98.6 89 20 130/69 (89) 96 98.6 02/05/18 16:00 98.1 96 16 94/62 (73) 97 98.1 02/05/18 16:00 Nasal Cannula 2.0 Nasal Cannula 2.0 02/05/18 16:00 84 02/05/18 12:00 88 02/05/18 12:00 97.3 87 18 103/65 (78) 99 97.3 02/05/18 12:00 Nasal Cannula 2.0 Venturi Mask Height (Feet): 5 Height (Inches): 10.00 Weight (Pounds): 155 Respiratory/Chest: lungs clear Cardiovascular: normal rate, regular rhythm, no gallop/murmur Abdomen: soft, non tender, other - GT Extremities: no edema, other - right IJ catheter Laboratory Tests Test 02/06/18 09:55 Sodium Level 137 MMOL/L (136-145) Potassium Level 4.1 MMOL/L (3.5-5.1) Chloride Level 104 MMOL/L (98-107) Carbon Dioxide Level 27 MMOL/L (21-32) Anion Gap 6 mmol/L (5-15) Blood Urea Nitrogen 17 mg/dL (7-18) Creatinine 0.8 MG/DL (0.55-1.30) Estimat Glomerular Filtration Rate > 60 mL/min (>60) Glucose Level 158 MG/DL (74-106) H Calcium Level 8.1 MG/DL (8.5-10.1) L Phosphorus Level 2.8 MG/DL (2.5-4.9) Magnesium Level 2.1 MG/DL (1.8-2.4) Total Bilirubin 0.2 MG/DL (0.2-1.0) Aspartate Amino Transf (AST/SGOT) 27 U/L (15-37) Alanine Aminotransferase (ALT/SGPT) 29 U/L (12-78) Alkaline Phosphatase 74 U/L (46-116) C-Reactive Protein, Quantitative 4.7 mg/dL (0.00-0.90) H Total Protein 6.4 G/DL (6.4-8.2) Albumin 2.4 G/DL (3.4-5.0) L Globulin 4.0 g/dL Albumin/Globulin Ratio 0.6 (1.0-2.7) L Current Medications Medications (Trade) Dose Ordered Sig/Monalisa Route PRN Reason Start Time Stop Time Status Last Admin Dose Admin Acetaminophen (Tylenol) 650 mg Q4H PRN ORAL Fever/Headache/Mild Pain 02/05/18 19:15 03/02/18 11:14 Ascorbic Acid (Vitamin C) 500 mg TWICE A DAY GT 02/05/18 18:00 03/02/18 17:59 02/06/18 09:25 Bisacodyl (Dulcolax) 10 mg DAILYPRN PRN RECTAL Constipation 02/05/18 18:00 03/07/18 17:59 Chlorhexidine Gluconate (Palak-Hex 2%) 1 applic DAILY@1999 TOPIC 02/05/18 20:00 03/03/18 19:59 02/05/18 20:59 Dextrose (Dextrose 50%) 25 ml STAT PRN IV Hypoglycemia 02/05/18 18:00 03/07/18 17:59 Dextrose (Dextrose 50%) 50 ml STAT PRN IV Hypoglycemia 02/05/18 18:00 03/07/18 17:59 Divalproex Sodium (Depakote ER) 500 mg BEDTIME ORAL 02/05/18 21:00 03/07/18 20:59 02/05/18 21:00 Docusate Sodium (Colace) 100 mg TWICE A DAY GT 02/05/18 18:00 03/02/18 17:59 02/06/18 09:24 Famotidine (Pepcid) 20 mg BEDTIME ORAL 02/05/18 21:00 03/02/18 20:59 02/05/18 21:00 Finasteride (Proscar) 5 mg DAILY ORAL 02/06/18 09:00 03/03/18 08:59 02/06/18 09:27 Heparin Sodium (Porcine) (Heparin 5000 units/ml) 5,000 units EVERY 12 HOURS SUBQ 02/05/18 21:00 03/02/18 20:59 Insulin Aspart (NovoLOG) BEFORE MEALS AND HS SUBQ 02/05/18 21:00 03/02/18 16:29 02/06/18 05:44 Insulin Detemir (Levemir) 25 units BID SUBQ 02/05/18 18:00 03/02/18 20:59 02/06/18 09:28 Lacosamide (Vimpat) 100 mg EVERY 12 HOURS ORAL 02/05/18 21:00 03/02/18 20:59 02/06/18 09:25 Levetiracetam (Keppra) 2,000 mg BID GT 02/05/18 18:00 03/02/18 17:59 02/06/18 09:24 Lorazepam (Ativan) 1 mg Q12H PRN GT For Anxiety 02/05/18 18:00 02/07/18 17:59 Lorazepam (Ativan) 2 mg Q6H PRN ORAL For Anxiety 02/05/18 18:00 02/12/18 17:59 Magnesium Hydroxide (Mom) 30 ml BEDTIME GT 02/05/18 21:00 03/02/18 20:59 02/05/18 20:59 Magnesium Hydroxide (Mom) 30 ml DAILYPRN PRN GT Constipation 02/05/18 18:00 03/07/18 17:59 Meropenem 500 mg/ Sodium Chloride 55 ml @ 110 mls/hr EVERY 8 HOURS IVPB 02/05/18 22:00 02/09/18 13:59 02/06/18 05:38 Metoprolol Tartrate (Lopressor) 25 mg EVERY 12 HOURS GT 02/05/18 21:00 03/02/18 20:59 02/06/18 09:26 Promethazine HCl/ Codeine (Phenergan with Codeine) 5 ml Q4H PRN ORAL For Cough 02/05/18 17:30 03/02/18 17:29 Risperidone (RisperDAL) 1 mg BEDTIME GT 02/05/18 21:00 03/07/18 20:59 02/05/18 21:00 Zinc Sulfate (Zinc Sulfate) 220 mg DAILY GT 02/06/18 09:00 03/03/18 08:59 02/06/18 09:25 LIYAH CORTEZ Feb 06, 2018 11:52"
[2018-02-06 12:00] VITALS: BP 163/71
[2018-02-06] MEDS ORDERED: MEROPENEM500 MG IV (12:05)
--- NOTE | 2018-02-06 12:24 | Pulmonology Progress Note ---
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 (6) Seizure disorder, complex partial Assessment/Plan K supplement looks more awake on Face mask respiratory treatment check electrolytes all reviewed cardio and ID appreciated pt/ot tolerating diet Subjective ROS Limited/Unobtainable: Yes Constitutional: Reports: no symptoms HEENT: Repors: no symptoms Respiratory: Reports: no symptoms Allergies: Coded Allergies: NO KNOWN DRUG ALLERGIES (Unverified Allergy, Unknown, 08/22/15) Objective Last 24 Hour Vital Signs Date Time Temp Pulse Resp B/P (MAP) Pulse Ox O2 Delivery O2 Flow Rate FiO2 02/06/18 09:26 99 100/74 02/06/18 08:00 98.7 95 18 102/66 (78) 97 98.7 02/06/18 04:00 98.3 99 18 100/74 (83) 95 98.3 02/06/18 00:00 98.2 91 20 107/68 (81) 96 98.2 02/05/18 21:01 89 130/69 02/05/18 21:00 Room Air Room Air 02/05/18 20:20 97 Nasal Cannula 8.0 40 02/05/18 20:19 8.0 40 02/05/18 20:00 98.6 89 20 130/69 (89) 96 98.6 02/05/18 16:00 98.1 96 16 94/62 (73) 97 98.1 02/05/18 16:00 Nasal Cannula 2.0 Nasal Cannula 2.0 02/05/18 16:00 84 Intake and Output 02/05/18 02/06/18 19:00 07:00 Intake Total 1335 ml 1610 ml Output Total 1100 ml 1500 ml Balance 235 ml 110 ml Intake Free Water 120 ml 720 ml IV Total 505 ml 110 ml Tube Feeding 650 ml 780 ml Other 60 ml Output Urine Total 1100 ml 1500 ml # Bowel Movements 1 General Appearance: WD/WN HEENT: normocephalic, atraumatic Respiratory/Chest: chest wall non-tender, lungs clear Cardiovascular: normal peripheral pulses, normal rate, regular rhythm Abdomen: normal bowel sounds, soft, non tender Genitourinary: normal external genitalia Extremities: no cyanosis Neurologic/Psychiatric: copy chief II-XII grossly normal Laboratory Tests 02/06/18 09:55: Sodium Level 137, Potassium Level 4.1, Chloride Level 104, Carbon Dioxide Level 27, Anion Gap 6, Blood Urea Nitrogen 17, Creatinine 0.8, Estimat Glomerular Filtration Rate > 60, Glucose Level 158H, Calcium Level 8.1L, Phosphorus Level 2.8, Magnesium Level 2.1, Total Bilirubin 0.2, Aspartate Amino Transf (AST/SGOT ) 27, Alanine Aminotransferase (ALT/SGPT) 29, Alkaline Phosphatase 74, C- Reactive Protein, Quantitative 4.7H, Total Protein 6.4, Albumin 2.4L, Globulin 4.0, Albumin/Globulin Ratio 0.6L Current Medications Medications (Trade) Dose Ordered Sig/Monalisa Route PRN Reason Start Time Stop Time Status Last Admin Dose Admin Acetaminophen (Tylenol) 650 mg Q4H PRN ORAL Fever/Headache/Mild Pain 02/05/18 19:15 03/02/18 11:14 Ascorbic Acid (Vitamin C) 500 mg TWICE A DAY GT 02/05/18 18:00 03/02/18 17:59 02/06/18 09:25 Bisacodyl (Dulcolax) 10 mg DAILYPRN PRN RECTAL Constipation 02/05/18 18:00 03/07/18 17:59 Chlorhexidine Gluconate (Palak-Hex 2%) 1 applic DAILY@2000 TOPIC 02/05/18 20:00 03/03/18 19:59 02/05/18 20:59 Dextrose (Dextrose 50%) 25 ml STAT PRN IV Hypoglycemia 02/05/18 18:00 03/07/18 17:59 Dextrose (Dextrose 50%) 50 ml STAT PRN IV Hypoglycemia 02/05/18 18:00 03/07/18 17:59 Divalproex Sodium (Depakote ER) 500 mg BEDTIME ORAL 02/05/18 21:00 03/07/18 20:59 02/05/18 21:00 Docusate Sodium (Colace) 100 mg TWICE A DAY GT 02/05/18 18:00 03/02/18 17:59 02/06/18 09:24 Famotidine (Pepcid) 20 mg BEDTIME ORAL 02/05/18 21:00 03/02/18 20:59 02/05/18 21:00 Finasteride (Proscar) 5 mg DAILY ORAL 02/06/18 09:00 03/03/18 08:59 02/06/18 09:27 Heparin Sodium (Porcine) (Heparin 5000 units/ml) 5,000 units EVERY 12 HOURS SUBQ 02/05/18 21:00 03/02/18 20:59 Insulin Aspart (NovoLOG) BEFORE MEALS AND HS SUBQ 02/05/18 21:00 03/02/18 16:29 02/06/18 05:44 Insulin Detemir (Levemir) 25 units BID SUBQ 02/05/18 18:00 03/02/18 20:59 02/06/18 09:28 Lacosamide (Vimpat) 100 mg EVERY 12 HOURS ORAL 02/05/18 21:00 03/02/18 20:59 02/06/18 09:25 Levetiracetam (Keppra) 2,000 mg BID GT 02/05/18 18:00 03/02/18 17:59 02/06/18 09:24 Lorazepam (Ativan) 1 mg Q12H PRN GT For Anxiety 02/05/18 18:00 02/07/18 17:59 Lorazepam (Ativan) 2 mg Q6H PRN ORAL For Anxiety 02/05/18 18:00 02/12/18 17:59 Magnesium Hydroxide (Mom) 30 ml BEDTIME GT 02/05/18 21:00 03/02/18 20:59 02/05/18 20:59 Magnesium Hydroxide (Mom) 30 ml DAILYPRN PRN GT Constipation 02/05/18 18:00 03/07/18 17:59 Meropenem 500 mg/ Sodium Chloride 55 ml @ 110 mls/hr EVERY 8 HOURS IVPB 02/05/18 22:00 02/09/18 13:59 02/06/18 05:38 Metoprolol Tartrate (Lopressor) 25 mg EVERY 12 HOURS GT 02/05/18 21:00 03/02/18 20:59 02/06/18 09:26 Promethazine HCl/ Codeine (Phenergan with Codeine) 5 ml Q4H PRN ORAL For Cough 02/05/18 17:30 03/02/18 17:29 Risperidone (RisperDAL) 1 mg BEDTIME GT 02/05/18 21:00 03/07/18 20:59 02/05/18 21:00 Zinc Sulfate (Zinc Sulfate) 220 mg DAILY GT 02/06/18 09:00 03/03/18 08:59 02/06/18 09:25 Lucie Gracia MD Feb 06, 2018 12:24
[2018-02-06 13:29] LABS: BASOPHILS % (AUTO) 1.1 % (0.0-2.0); EOSINOPHILS % (AUTO) 7.6 % (0.0-3.0); HEMATOCRIT 35.1 % (42.0-52.0); HEMOGLOBIN 11.1 G/DL (14.2-18.0); LYMPHOCYTES % (AUTO) 28.9 % (20.0-45.0); MEAN CORPUSCULAR VOLUME 72 FL (80-99); MONOCYTES % (AUTO) 8.7 % (1.0-10.0); NEUTROPHILS % (AUTO) 53.7 % (45.0-75.0); PLATELET COUNT 197 K/UL (150-450); RED BLOOD COUNT 4.86 M/UL (4.70-6.10); RED CELL DISTRIBUTION WIDTH 13.5 % (11.6-14.8); WHITE BLOOD COUNT 5.5 K/UL (4.8-10.8)
[2018-02-06] MEDS ORDERED: Tubing IV Secondary IV ONE (17:19)
[2018-02-06 18:02] LABS: BASOPHILS % (AUTO) 1.1 % (0.0-2.0); EOSINOPHILS % (AUTO) 7.9 % (0.0-3.0); HEMOGLOBIN 10.9 G/DL (14.2-18.0); LYMPHOCYTES % (AUTO) 38.6 % (20.0-45.0); MEAN CORPUSCULAR VOLUME 72 FL (80-99); MONOCYTES % (AUTO) 11.3 % (1.0-10.0); PLATELET COUNT 193 K/UL (150-450); RED BLOOD COUNT 4.85 M/UL (4.70-6.10); RED CELL DISTRIBUTION WIDTH 13.5 % (11.6-14.8); WHITE BLOOD COUNT 5.4 K/UL (4.8-10.8)
--- NOTE | 2018-02-07 06:49 | Discharge Summary ---
Discharge Summary Discharge Summary _ DATE OF ADMISSION: 01/31/2018 DATE OF DISCHARGE: 02/06/2018 CONSULTANTS: Dr. Lucie Euceda BRIEF HOSPITAL COURSE: Patient is a 62-year-old male, who is a patient of Dr. Donaldo Johnson, with multiple medical problems was brought in by EMS from long term for evaluation of altered level of consciousness. He has history of CVA, hypertension, diabetes, seizure disorder, dysphagia on G-tube, cerebral palsy and was reported to have decreased mentation for one day. At baseline, patient was able to answer yes or no, however, was now unresponsive, but moans to painful stimuli. He has respiratory distress, unknown fever. On evaluation at ED, he was noted to be febrile with temperature of 102. He was tachycardic, heart rate was up to 160. Blood work showed leukocytosis with WBC of 17, lactic acid was 7.9. He was noted to be dehydrated and has acute kidney injury, creatinine was elevated to 2.3, BUN was 43. Sodium was elevated to 151 and chloride was 112. Glucose was critically high at 686. He required IV hydration; a central line to the right internal jugular was inserted for IV access. He was given IV hydration and Tylenol. He was started on IV vancomycin and cefepime. He was given insulin for hyperglycemia. He was then admitted to stepdown unit for evaluation of altered mental status/encephalopathy , sepsis, hypernatremia, renal failure, nonketotic hyperglycemia and lactic acidosis. He was followed by infectious disease specialist. He was started empirically on cefepime pending culture results. He was given IV hydration and was given free water via G-tube. He was placed on respiratory treatments. Respiratory status was monitored. Potassium went down to 3.2. He was given potassium supplements. He was tachycardic, and electrocardiogram showed sinus tachycardia with no acute ST to T wave abnormalities. He was continued on metoprolol tartrate 25 mg every 12 hours. He had normal left ventricular systolic function last June 2016 with LVEF of 65%. He had elevated blood sugar, he was placed on Glucerna tube feeding. Blood sugars were monitored and was seen by message and delivery service pricer. Mealtime was discontinued. He was given Levemir 25 mg twice a day and NovoLog sliding scale. Patient was altered and had been more confused. He has history of schizoaffective disorder and was on Risperdal and Depakote. He was diagnosed with encephalopathy and was continued on same medications. Sputum culture showed growth of Proteus mirabilis, Klebsiella and Escherichia coli ESBL. Cefepime was discontinued and was given meropenem. Fever resolved. Leukocytosis resolved. He was eventually discharged back to long term. FINAL DIAGNOSES: Sepsis Proteus/Klebsiella/Escherichia coli pneumonia Toxic-metabolic encephalopathy Seizure disorder Cerebral palsy with advanced mental retardation Hypernatremia, resolved Acute renal failure Chronic kidney disease Diabetes mellitus, out of control with possible diabetic nephropathy Dysphagia with feeding via G-tube Sinus tachycardia Hypertension Old CVA Schizoaffective disorder DISPOSITION: Patient was discharged to [facility]. DISCHARGE MEDICATIONS: Refer to Discharge Medication List. I have been assigned to dictate discharge summary on this account, and I was not involved in the patient's management. Mala Couch NP Feb 07, 2018 06:49
== END 2018-02-06 17:20 | DRG 871 ==
LOC: EDBD 23:02 → EMR 23:20 → EDBEDREQ 01-31 02:20 → 2W 01-31 02:31 → EDBEDREQ 01-31 03:15 → 4E 02-05 17:36
DX: A41.9 Sepsis, unspecified organism (principal); G92 Toxic encephalopathy; J15.5 Pneumonia due to Escherichia coli; J15.0 Pneumonia due to Klebsiella pneumoniae; J15.6 Pneumonia due to other Gram-negative bacteria; G82.20 Paraplegia, unspecified; E87.0 Hyperosmolality and hypernatremia; N17.9 Acute kidney failure, unspecified; Z43.1 Encounter for attention to gastrostomy; R47.01 Aphasia; N39.0 Urinary tract infection, site not specified; F72 Severe intellectual disabilities; R65.20 Severe sepsis without septic shock; G40.909 Epilepsy, unspecified, not intractable, without status epilepticus; N40.0 Benign prostatic hyperplasia without lower urinary tract symptoms; K21.9 Gastro-esophageal reflux disease without esophagitis; G80.9 Cerebral palsy, unspecified; E86.0 Dehydration; E11.65 Type 2 diabetes mellitus with hyperglycemia; E11.21 Type 2 diabetes mellitus with diabetic nephropathy; R13.10 Dysphagia, unspecified; Z86.73 Personal history of transient ischemic attack (TIA), and cerebral infarction without residual deficits; F25.9 Schizoaffective disorder, unspecified; J44.9 Chronic obstructive pulmonary disease, unspecified; I12.9 Hypertensive chronic kidney disease with stage 1 through stage 4 chronic kidney disease, or unspecified chronic kidney disease; N18.9 Chronic kidney disease, unspecified; G51.0 Bell's palsy
CPT/HCPCS: 36415; 36600; 71045; 80053; 81003; 82550; 82553; 82803; 82962; 83605; 83735; 84100; 84484; 85025; 85610; 85651; 85730; 86140; 87040; 87070; 87081; 87181; 87205; 93005; 94640; 94664; 94760; 99291; C9399; J1815; J8499; S5561

== ENCOUNTER 2018-03-20 14:19 | Emergency (ER) | payer MEDICARE, MEDICAID ==
[~2018-03-20] VITALS: Ht 172.7 cm; Wt 81.6 kg
[~2018-03-20 14:19] MED LIST changes: +MEROPENEM500 MG IV
[2018-03-20 14:50] VITALS: BP 99/60
--- NOTE | 2018-03-20 16:18 | Diagnostic Imaging Report ---
Indication: Gastrostomy tube replacement. Technique: XRAY Abdomen 1v Comparison: 11/10/2017 Findings: No frontal image of the abdomen was obtained after injection of oral contrast via the gastrostomy tube. Dense contrast is noted within the gastrostomy tube retention balloon. Injected contrast opacifies the stomach and proximal small bowel. No definite extraluminal extravasation of contrast identified. Bowel gas pattern is nonspecific there are degenerative changes of the spine with some unchanged compression deformities of lower thoracic vertebral bodies. IMPRESSION: Gastrostomy tube in the stomach. No extraluminal extravasation of contrast identified.
--- NOTE | 2018-03-20 19:15 | Emergency Room Report ---
History of Present Illness General Chief Complaint: Malfunctioning Gastric Tube Source: Medical Record, EMS Present Illness HPI 62-year-old male presents ED for evaluation. Patient presenting from [facility] facility for [facility]-tube placement. Patient has a G-tube in place but currently taking from this morning as per nursing staff. Upon arrival patient showing no signs of distress. Patient is nonverbal at baseline. No reported nausea or vomiting. No other aggravating relieving factors. No other associated symptoms Allergies: Coded Allergies: NO KNOWN DRUG ALLERGIES (Unverified Allergy, Unknown, 08/22/15) Patient History Past Medical History: DM, HTN, COPD, other - dysphagia Past Surgical History: none Pertinent Family History: none Social History: Denies: smoking, alcohol use, drug use Immunizations: UTD Reviewed Nursing Documentation: PMH: Agreed; PSxH: Agreed Nursing Documentation-PMH Hx Cardiac Problems: Yes Hx Hypertension: Yes Hx Pacemaker: No Hx Asthma: No Hx COPD: Yes Hx Diabetes: Yes - dm2 Hx Cancer: No Hx Gastrointestinal Problems: Yes - Dysphagia, Hx Dialysis: No - BPH Hx Cerebrovascular Accident: Yes Hx Parkinson's Disease: Yes Hx Seizures: Yes Hx Epilepsy: Yes Hx Cerebral Palsy: Yes Hx Speech Problem: Yes Hx Aphasia: Yes Hx Weakness: Yes Review of Systems All Other Systems: limited Physical Exam Vital Signs Date Time Temp Pulse Resp B/P (MAP) Pulse Ox O2 Delivery O2 Flow Rate FiO2 03/20/18 14:40 98.0 81 14 99/60 96 Room Air 98.1 Sp02 EP Interpretation: reviewed, normal General Appearance: no apparent distress, non-toxic, other - nonverbal Head: normocephalic Eyes: bilateral eye normal inspection, bilateral eye PERRL ENT: normal ENT inspection Neck: normal inspection Respiratory: chest non-tender, lungs clear, normal breath sounds, speaking full sentences Cardiovascular #1: regular rate, rhythm, no edema Gastrointestinal: normal bowel sounds, non tender, soft, non-distended, no guarding, no rebound, other - Gtube site C/D/I Rectal: deferred Genitourinary: no CVA tenderness Musculoskeletal: normal inspection Neurologic: other - nonverbal Psychiatric: other - nonverbal Skin: normal inspection Lymphatic: normal inspection Procedures Additional Procedure Procedure Narrative G-tube placement Patient placed on stretcher. Old G-tube is removed by deflating the balloon using syringe. G-tube site is inspected with no contraindications to G-tube placement. G-tube slowly inserted until resistance is met; 20 F G-tube balloon is slowly filled with 20 mL of normal saline and slowly retracted back until resistance is met. G-tube placement is confirmed with KUB study using Gastrografin Medical Decision Making Diagnostic Impression: Primary Impression: Malfunction of gastrostomy tube ER Course Hospital Course 62-year-old male presents to ED for G-tube placement. leaking at longterm Clinical course Patient placed on stretcher. After initial history and physical I replaced G- tube and inflate the balloon. G-tube placement confirmed with KUB study. Patient remained stable without any signs of distress. intermediate called and patient subsequently discharged back to facility. Diagnosis - malfunction of G tube stable and discharged back to facility. Followup with PMD. Return to ED if symptoms recur or worsen Other X-Ray Diagnostic Results Other X-Ray Diagnostic Results : X-Ray ordered: KUB # of Views/Limited Vs Complete: 1 View Indication: Other - gtube placement Interpretation: nonspecific bowel gas, no sbo, other - Gtube in place Impression: No acute disease Electronically Signed by: Electronically signed by Gage Pinedo MD Last Vital Signs Date Time Temp Pulse Resp B/P (MAP) Pulse Ox O2 Delivery O2 Flow Rate FiO2 03/20/18 14:50 98.1 77 16 99/60 96 Room Air 98.1 Status: improved Disposition: XFER SNF Condition: Stable Referrals: Donaldo Johnson DO (PCP) Patient Instructions: Gastrostomy Tube Home Guide, Adult Gage Pinedo MD Mar 20, 2018 19:15
[2018-03-20 19:45] VITALS: BP 102/69
== END 2018-03-20 19:45 ==
LOC: EDBD 14:19 → EMR 15:17
DX: K94.23 Gastrostomy malfunction (principal); G40.909 Epilepsy, unspecified, not intractable, without status epilepticus; G80.9 Cerebral palsy, unspecified; G20 Parkinson's disease; Z86.73 Personal history of transient ischemic attack (TIA), and cerebral infarction without residual deficits; I10 Essential (primary) hypertension; J44.9 Chronic obstructive pulmonary disease, unspecified; E11.9 Type 2 diabetes mellitus without complications
CPT/HCPCS: 43760; 74018; 99283; Q9963

== ENCOUNTER 2018-07-05 09:33 | Emergency (ER) | payer MEDICARE, MEDICAID ==
[~2018-07-05] VITALS: Ht 177.8 cm; Wt 77.1 kg
[2018-07-05 09:54] VITALS: BP 103/70
--- NOTE | 2018-07-05 10:05 | Emergency Room Report ---
History of Present Illness General Chief Complaint: Malfunctioning Gastric Tube Source: Patient, EMS Present Illness HPI Patient is 62-year-old male brought in by EMS after the accidental G-tube removal. Patient prior history of G-tube dependence. Alexander had been placed into the stoma. The patient had a been noted to have some skin rash to the area. He had not been febrile. The patient been noted to have some leaking from the area. Allergies: Coded Allergies: NO KNOWN DRUG ALLERGIES (Unverified Allergy, Unknown, 08/22/15) Patient History Past Medical History: see triage record Reviewed Nursing Documentation: PMH: Agreed; PSxH: Agreed Nursing Documentation-PMH Past Medical History: No History, Except For Hx Cardiac Problems: Yes Hx Hypertension: Yes Hx Pacemaker: No Hx Asthma: No Hx COPD: Yes Hx Diabetes: Yes - dm2 Hx Cancer: No Hx Gastrointestinal Problems: Yes - Dysphagia, Hx Dialysis: No - BPH Hx Cerebrovascular Accident: Yes Hx Parkinson's Disease: Yes Hx Seizures: Yes Hx Epilepsy: Yes Hx Cerebral Palsy: Yes Hx Speech Problem: Yes Hx Aphasia: Yes Hx Weakness: Yes Review of Systems All Other Systems: limited - by mental status Physical Exam Vital Signs Date Time Temp Pulse Resp B/P (MAP) Pulse Ox O2 Delivery O2 Flow Rate FiO2 07/05/18 09:25 98.2 82 18 103/70 98 Room Air General Appearance: no apparent distress, Chronically Ill Head: atraumatic Neck: supple, limited range of motion Respiratory: normal inspection, lungs clear, no respiratory distress, speaking full sentences Cardiovascular #1: normal inspection Gastrointestinal: soft, other - stoma patent, Neurologic: motor weakness - bilateral upper extremity Psychiatric: mood/affect normal Skin: other - slight erythema to adhesive area near gtube without warmth or drainage Medical Decision Making Diagnostic Impression: Primary Impression: PEG (percutaneous endoscopic gastrostomy) adjustment/replacement/removal ER Course Patient presented for G-tube replacement. Gastrostomy tube was replaced with sterile technique 22 peruvian gtube at 4cm. Post procedure x-ray showed adequate gastrostomy tube placement. Patient tolerated well without complications. The patient was noted to have some discoloration to the area around his G-tube which appears to be a contact dermatitis. Does not appear to be any evidence of cellulitis at this time. The patient was discharged back to longterm. Patient was return for persistent vomiting, other concerns. Last Vital Signs Date Time Temp Pulse Resp B/P (MAP) Pulse Ox O2 Delivery O2 Flow Rate FiO2 07/05/18 09:25 98.2 82 18 103/70 98 Room Air Status: improved Disposition: [facility] Condition: Stable Ever Babcock MD Jul 05, 2018 10:05
--- NOTE | 2018-07-05 11:13 | Diagnostic Imaging Report ---
EXAM: XR Abdomen, 1 View CLINICAL HISTORY: TUBE PLCMT TECHNIQUE: Frontal supine view of the abdomen/pelvis. COMPARISON: No relevant prior studies available. FINDINGS: Gastrointestinal tract: Injected contrast is seen within the stomach and bowel. Bones/joints: No acute fracture. Tubes, lines and devices: Percutaneous g-tube is intraluminal. IMPRESSION: Percutaneous g-tube is intraluminal.
[2018-07-05 15:49] VITALS: BP 103/70
== END 2018-07-05 14:00 ==
LOC: EDBD 09:33 → EMR 10:02
DX: Z43.1 Encounter for attention to gastrostomy (principal); R21 Rash and other nonspecific skin eruption; I10 Essential (primary) hypertension; J44.9 Chronic obstructive pulmonary disease, unspecified; E11.9 Type 2 diabetes mellitus without complications; G40.909 Epilepsy, unspecified, not intractable, without status epilepticus; G80.9 Cerebral palsy, unspecified
CPT/HCPCS: 74018; 99283

== ENCOUNTER 2018-11-16 11:06 | Emergency (ER) | payer MEDICARE, MEDICAID ==
[~2018-11-16] VITALS: Ht 170.2 cm; Wt 72.6 kg
--- NOTE | 2018-11-16 11:15 | NUR ---
ED Nurse Note: PT BROUGHT IN BY AMULANCE FROM [facility] DUE TO G-TUBE MALFUNCTION. PT AOX0 AND NONVERBAL BUT RESPONSIVE TO VOICE. PT PRESENTS WITH 22F G-TUBE TO LEFT UPPER ABDOMEN. AT BEDSIDE FOR REPLACEMENT. OF NOTE, PT PRESENTS WITH WOUND TO RIGHT HEEL THAT IS DRESSED FROM FACILITY. PT ALSO PRESENTS WITH DARKENING TO COCCYX AREA.
[2018-11-16] MEDS ORDERED: VIMPAT10 MG/1 ML GT (11:17)
--- NOTE | 2018-11-16 11:20 | NUR ---
ED Nurse Note: EXISTING G-TUBE TAKEN OUT AND REPLACED WITH NEW 22F G-TUBE BY DR. HERNANDEZ. AWAITING XRAY FOR PLACEMENT VERIFICATION.
[2018-11-16 11:32] VITALS: BP 112/76
--- NOTE | 2018-11-16 11:49 | NUR ---
ED Nurse Note: XRAY AT BEDSIDE. 30ML OF GASTROGRAFIN PUSHED THROUGH G-TUBE AND FLUSHED WITH 30ML OF WATER. PT TOLERATED WELL.
--- NOTE | 2018-11-16 12:07 | Emergency Room Report ---
History of Present Illness General Chief Complaint: Malfunctioning Gastric Tube Source: Medical Record, EMS Present Illness HPI Patient sent from nursing facility with reports of malfunctioning feeding tube It's unclear exactly when this feeding tube was last changed however nursing staff was attempting to provide medication and stated the patient and was unable to flush the feeding tube Patient himself is chronically debilitated cannot provide any input History of present illness does remain limited for that reason There was no reports of fevers or rash Allergies: Coded Allergies: NO KNOWN DRUG ALLERGIES (Unverified Allergy, Unknown, 08/22/15) Patient History Past Medical History: see triage record Pertinent Family History: none Reviewed Nursing Documentation: PMH: Agreed; PSxH: Agreed Nursing Documentation-PMH Past Medical History: No History, Except For Hx Cardiac Problems: Yes Hx Hypertension: Yes Hx Pacemaker: No Hx Asthma: No Hx COPD: Yes Hx Diabetes: Yes - dm2 Hx Cancer: No Hx Gastrointestinal Problems: Yes - Dysphagia, Hx Dialysis: No - BPH Hx Cerebrovascular Accident: Yes Hx Parkinson's Disease: Yes Hx Seizures: Yes Hx Epilepsy: Yes Hx Cerebral Palsy: Yes Hx Speech Problem: Yes Hx Aphasia: Yes Hx Weakness: Yes Review of Systems All Other Systems: negative except mentioned in HPI Physical Exam Vital Signs Date Time Temp Pulse Resp B/P (MAP) Pulse Ox O2 Delivery O2 Flow Rate FiO2 11/16/18 11:07 98.1 81 18 101/71 95 Room Air Sp02 EP Interpretation: reviewed, normal General Appearance: no apparent distress Head: normocephalic, atraumatic Eyes: bilateral eye PERRL, bilateral eye EOMI ENT: normal pharynx Neck: supple Respiratory: lungs clear, no retraction, no accessory muscle use Cardiovascular #1: regular rate, rhythm Gastrointestinal: other - Feeding tube appears to have several areas of leaking holes in the tube Musculoskeletal: normal inspection Neurologic: responsive - to physical stimuli only Skin: normal color, no rash Lymphatic: no adenopathy Procedures Additional Procedure Procedure Narrative The feeding tube in place had the balloon deflated it was removed appropriately a new feeding tube was placed through the stoma without any resistance Balloon inflated with 20 mL of fluid Patient started procedure well and x-rays obtained for placement Medical Decision Making Diagnostic Impression: Primary Impression: Malfunction of gastrostomy tube ER Course The feeding tube was replaced as noted above Patient started procedure well repeat x-ray shows appropriate placement and patient stable for close outpatient follow-up Other X-Ray Diagnostic Results Other X-Ray Diagnostic Results : X-Ray ordered: kub # of Views/Limited Vs Complete: 1 View Indication: Other - Tube placement EP Interpretation: Yes Interpretation: no dislocation, no soft tissue swelling, other - No obvious extravasation appropriate placement Impression: No acute disease Electronically Signed by: Amy Bullock DO Last Vital Signs Date Time Temp Pulse Resp B/P (MAP) Pulse Ox O2 Delivery O2 Flow Rate FiO2 11/16/18 11:32 98.2 84 16 112/76 97 Room Air Status: improved Disposition: XFER SNF Condition: Improved Patient Instructions: Gastrostomy Tube Home Guide, Adult Additional Instructions: Patient is provided with the discharge instructions notified to follow up with primary doctor in the next 2-3 days otherwise return to the er with any worsening symptoms. Please note that this report is being documented using [employer] technology. This can lead to erroneous entry secondary to incorrect interpretation by the dictating instrument. Amy Bullock DO Nov 16, 2018 12:07
--- NOTE | 2018-11-16 12:33 | NUR ---
ED Nurse Note: [facility] CALLED FOR REPORT. REPORT GIVEN TO [facility] THOMPSON WHO STATES FACILITY IS READY TO REACCEPT PT. TRANSPORTATION ARRANGED WITH [facility].
--- NOTE | 2018-11-16 12:40 | NUR ---
ED Nurse Note: [facility] AT BEDSIDE FOR PT TRANSFER AND REPORT GIVEN TO EMS. PT TAKEN BACK TO [facility]IA AMBULANCE WITH ALL BELONGINGS ACCOMPANIED BY EMS. VSS.
[2018-11-16 12:44] VITALS: BP 108/72
== END 2018-11-16 12:45 ==
LOC: EDBD 11:06 → EMR 12:40
DX: K94.23 Gastrostomy malfunction (principal); I10 Essential (primary) hypertension; E11.9 Type 2 diabetes mellitus without complications; G20 Parkinson's disease; G40.909 Epilepsy, unspecified, not intractable, without status epilepticus; Z86.73 Personal history of transient ischemic attack (TIA), and cerebral infarction without residual deficits
CPT/HCPCS: 74018; 99284

== ENCOUNTER 2019-03-11 13:12 | Emergency (ER) | payer MEDICARE, MEDICAID ==
[~2019-03-11] VITALS: Ht 167.6 cm; Wt 72.6 kg
[~2019-03-11 13:12] MED LIST changes: +VIMPAT10 MG/1 ML GT
--- NOTE | 2019-03-11 13:16 | NUR ---
ED Nurse Note: Pt brought in by EMS from [facility] due to G tube replacement, size 18. Per EMS, pt pulled out his G tube this morning and a catheter is in place to prevent closure. Pt is awake but non verbal with flat affect. No respiratory distress.
--- NOTE | 2019-03-11 13:33 | Emergency Room Report ---
History of Present Illness General Chief Complaint: Malfunctioning Gastric Tube Source: Medical Record, EMS Present Illness HPI Patient presents after his gastrostomy tube was dislodged. He is here for replacement. There is no history of inflammation around the site. There is no history of bleeding. There is no history of fever. He was admitted January 2018 with these discharge diagnoses: Sepsis Proteus/Klebsiella/Escherichia coli pneumonia Toxic-metabolic encephalopathy Seizure disorder Cerebral palsy with advanced mental retardation Hypernatremia, resolved Acute renal failure Chronic kidney disease Diabetes mellitus, out of control with possible diabetic nephropathy Dysphagia with feeding via G-tube Sinus tachycardia Hypertension Old CVA Schizoaffective disorder Allergies: Coded Allergies: NO KNOWN DRUG ALLERGIES (Unverified Allergy, Unknown, 08/22/15) Patient History Limited by: medical condition Past Medical History: see triage record, old chart reviewed Past Surgical History: other - Gastrostomy tube Social History Narrative [facility] facility Reviewed Nursing Documentation: PMH: Agreed; PSxH: Agreed Nursing Documentation-PMH Past Medical History: No History, Except For Hx Cardiac Problems: Yes Hx Hypertension: Yes Hx Pacemaker: No Hx Asthma: No Hx COPD: Yes Hx Diabetes: Yes - dm2 Hx Cancer: No Hx Gastrointestinal Problems: Yes - Dysphagia, Hx Dialysis: No - BPH Hx Cerebrovascular Accident: Yes Hx Parkinson's Disease: Yes Hx Seizures: Yes Hx Epilepsy: Yes Hx Cerebral Palsy: Yes Hx Speech Problem: Yes Hx Aphasia: Yes Hx Weakness: Yes Review of Systems All Other Systems: limited Physical Exam Vital Signs Date Time Temp Pulse Resp B/P (MAP) Pulse Ox O2 Delivery O2 Flow Rate FiO2 03/11/19 13:12 97.9 79 16 96/65 (75) 94 Room Air Sp02 EP Interpretation: reviewed, normal - Slightly low as interpreted by me General Appearance: no apparent distress, Chronically Ill Head: normocephalic, atraumatic Eyes: bilateral eye normal inspection, bilateral eye PERRL ENT: moist mucus membranes Neck: supple Respiratory: lungs clear, normal breath sounds, no respiratory distress Cardiovascular #1: regular rate, rhythm Cardiovascular #2: 2+ radial (R) Gastrointestinal: non tender, soft, non-distended, other - Alexander catheter in place Musculoskeletal: other - Contractures Neurologic: DTRs symmetric, motor weakness - All 4 extremities, sensory deficit , other - Minimally following voice of examiner Psychiatric: other - Occasional outbursts profanity and shouting Skin: normal color, other - In the past he has had multiple decubiti of the lower extremities Procedures Additional Procedure Procedure Narrative 18 Kinyarwanda Alexander catheter removed. 22 Kinyarwanda gastrostomy tube inserted with ease. Insufflation and aspiration of gastric contents with ease. Patient tolerated the procedure well. Medical Decision Making Diagnostic Impression: Primary Impression: Malfunction of gastrostomy tube Additional Impressions: Schizophrenia Qualified Codes: F20.9 - Schizophrenia, unspecified Paraparesis of both lower limbs ER Course Patient here after gastrostomy tube was dislodged. Vital signs are stable and the patient does not appear toxic. Gastrostomy tube will be replaced. Please see procedure notes. X-ray with successful placement of gastrostomy tube. Patient stable for outpatient observation and treatment. Other X-Ray Diagnostic Results Other X-Ray Diagnostic Results : X-Ray ordered: abd # of Views/Limited Vs Complete: 1 View Indication: Other EP Interpretation: Yes Interpretation: nonspecific bowel gas, no sbo, other - gastrograffin in stomach Impression: Other Electronically Signed by: Electronically signed by Alex Renee MD Last Vital Signs Date Time Temp Pulse Resp B/P (MAP) Pulse Ox O2 Delivery O2 Flow Rate FiO2 03/11/19 14:44 98.1 74 17 106/74 98 Room Air Status: improved Disposition: XFER SNF Condition: Stable Alex Renee MD Mar 11, 2019 13:33
[2019-03-11 13:34] VITALS: BP 108/72
--- NOTE | 2019-03-11 13:35 | NUR ---
ED Nurse Note: REPORT RECEIVED FROM EDU FAULKNER. XRAY AT BEDSIDE FOR GTUBE PLACEMENT VERIFICATION.
--- NOTE | 2019-03-11 13:37 | NUR ---
ED Nurse Note: 60ML OF GASTROGRAFIN ADMINISTERED VIA GTUBE. GTUBE FLUSHED WITH WATER FOLLOWING XRAY. PT TOLERATED WELL.
--- NOTE | 2019-03-11 14:34 | NUR ---
ED Nurse Note: EDVIN MURO CALLED. REPORT GIVEN TO EDU TRUJILLO. FACILITY READY TO ACCEPT PT AND AWARE OF [facility] ETA OF 1515.
--- NOTE | 2019-03-11 14:43 | NUR ---
ED Nurse Note: [facility] AT BEDSIDE. REPORT GIVEN TO EMS. PT TAKEN BACK TO [facility] VIA AMBULANCE WITH ALL BELONGINGS ACCOMPANIED BY EMS. VSS.
[2019-03-11 14:44] VITALS: BP 106/74
--- NOTE | 2019-03-11 15:24 | Diagnostic Imaging Report ---
Indication: Gastrostomy tube placement Comparison: None Single view of the abdomen obtained Findings: Gastrostomy tube is projected over the body of the stomach. There is contrast in the stomach. There is no extravasation of contrast identified. IMPRESSION: Gastrostomy is in the stomach mid body.
== END 2019-03-11 14:45 ==
LOC: EDBD 13:12 → EMR 13:50
DX: K94.23 Gastrostomy malfunction (principal); F20.9 Schizophrenia, unspecified; G82.20 Paraplegia, unspecified; E11.9 Type 2 diabetes mellitus without complications; J44.9 Chronic obstructive pulmonary disease, unspecified; I10 Essential (primary) hypertension; G20 Parkinson's disease; Z86.73 Personal history of transient ischemic attack (TIA), and cerebral infarction without residual deficits; G40.909 Epilepsy, unspecified, not intractable, without status epilepticus; G80.9 Cerebral palsy, unspecified
CPT/HCPCS: 43762; 74018; 99284; Q9963

== ENCOUNTER → 2019-05-30 | Emergency (ER) | payer MEDICARE, MEDICAID ==
[~2019-05-30] VITALS: Ht 175.3 cm; Wt 81.6 kg
--- NOTE | 2019-05-30 11:05 | NUR ---
ED Nurse Note: Pt SUSANNAH from [facility] for G-tube replacement. Staffs at [facility] found G-tube "fell out" this morning. Skin around stoma noted moist with redness. NO discharge. Pt does NOT answer questions appropriately, baseline. Vital signs stable upon arrival. Will cont to monitor.
--- NOTE | 2019-05-30 11:10 | Emergency Room Report ---
History of Present Illness General Chief Complaint: Malfunctioning Gastric Tube Source: EMS Present Illness HPI Patient is a 63-year-old male brought in by [facility] after G-tube had become dislodged. Patient had prior history of G-tube dependence. He had a Alexander catheter replaced in the stoma. Patient history is markedly limited by patient's mental status. He had some prior history of psychosis. Allergies: Coded Allergies: NO KNOWN DRUG ALLERGIES (Unverified Allergy, Unknown, 08/22/15) Patient History Past Medical History: see triage record Reviewed Nursing Documentation: PMH: Agreed; PSxH: Agreed Nursing Documentation-PMH Hx Cardiac Problems: Yes Hx Hypertension: Yes Hx Pacemaker: No Hx Asthma: No Hx COPD: Yes Hx Diabetes: Yes - dm2 Hx Cancer: No Hx Gastrointestinal Problems: Yes - Dysphagia, Hx Dialysis: No - BPH Hx Cerebrovascular Accident: Yes Hx Parkinson's Disease: Yes Hx Seizures: Yes Hx Epilepsy: Yes Hx Cerebral Palsy: Yes Hx Speech Problem: Yes Hx Aphasia: Yes Hx Weakness: Yes Review of Systems All Other Systems: limited - Review of systems: Review systems is limited by patient's being a poor historian Physical Exam Vital Signs Date Time Temp Pulse Resp B/P (MAP) Pulse Ox O2 Delivery O2 Flow Rate FiO2 05/30/19 10:51 98.1 74 16 106/71 (83) 97 Sp02 EP Interpretation: reviewed, normal General Appearance: normal inspection, alert, Chronically Ill Head: atraumatic ENT: normal ENT inspection, hearing grossly normal, normal voice Neck: normal inspection, supple, no bony tend, limited range of motion Respiratory: normal inspection, lungs clear, normal breath sounds, no respiratory distress, no retraction, no wheezing Cardiovascular #1: regular rate, rhythm, no edema Gastrointestinal: normal inspection, soft, other - Stoma patent with some small amount of blood noted Genitourinary: no CVA tenderness Musculoskeletal: normal inspection, back normal, normal range of motion Neurologic: normal inspection, alert, responsive, other - Repetitive speech and counting Psychiatric: anxious Medical Decision Making Diagnostic Impression: Primary Impression: PEG (percutaneous endoscopic gastrostomy) adjustment/replacement/removal ER Course Patient presented for G-tube replacement. Patient's Alexander catheter was removed from the gastrostomy stoma. Skin was prepped with ChloraPrep. Easily placed a 22 [place] gastrostomy tube. Balloon was inflated to 20 cc with sterile water. Patient tolerated this well. Post procedure KUB showed adequate G-tube placement. Gastric contents were present in the tube. Patient was sent back to nursing facility via BLS ambulance. Patient currently in stable condition. Last Vital Signs Date Time Temp Pulse Resp B/P (MAP) Pulse Ox O2 Delivery O2 Flow Rate FiO2 05/30/19 10:51 98.1 74 16 106/71 (83) 97 Status: improved Disposition: [facility] SNF Condition: Stable Ever Babcock MD May 30, 2019 11:10
--- NOTE | 2019-05-30 11:20 | NUR ---
ED Nurse Note: G-tube size 22F replaced by Dr. Babcock, RN at bedside assisting.
--- NOTE | 2019-05-30 11:20 | NUR ---
ED Nurse Note: X-ray abdomen KUB done at bedside for confirmation.
--- NOTE | 2019-05-30 11:31 | Diagnostic Imaging Report ---
EXAM: XR Abdomen, 2 Views CLINICAL HISTORY: TUBE PLACEMENT TECHNIQUE: Frontal view of the abdomen pelvis with upright view of the abdomen. COMPARISON: No relevant prior studies available. FINDINGS IMPRESSION: Contrast infused into the feeding tube fills the distal stomach and the duodenal sweep. No clear extraluminal contrast. Inspissated stool distending the rectum. Leftward pelvic surgical clips.
--- NOTE | 2019-05-30 11:40 | NUR ---
ED Nurse Note: Report given to Rosalia - nurse at [facility]. Awaiting for transportation.
[2019-05-30 11:57] VITALS: BP 130/72
--- NOTE | 2019-05-30 11:57 | NUR ---
ER DISCHARGE NOTE: Patient is cleared to be discharged per ERMD, pt is confused, on room air, with stable vital signs. ambulance personnel ([facility])was given dc instructions, pt. id removed. pt. left with all belongings.
== END ==
LOC: EDUNIT# 10:48 → EDBD 10:49 → EMR 12:03
DX: K94.29 Other complications of gastrostomy (principal); I10 Essential (primary) hypertension; J44.9 Chronic obstructive pulmonary disease, unspecified; E11.9 Type 2 diabetes mellitus without complications; N40.0 Benign prostatic hyperplasia without lower urinary tract symptoms; Z86.73 Personal history of transient ischemic attack (TIA), and cerebral infarction without residual deficits; G40.909 Epilepsy, unspecified, not intractable, without status epilepticus; G20 Parkinson's disease; G80.9 Cerebral palsy, unspecified
CPT/HCPCS: 74018; 99283

== ENCOUNTER 2019-07-16 20:23 | Inpatient (IN) | payer MEDICARE, MEDICAID ==
[~2019-07-16] VITALS: Ht 170.2 cm; Wt 74.8 kg
[2019-07-16 20:30] VITALS: BP 117/71
--- NOTE | 2019-07-16 20:30 | NUR ---
ED Nurse Note: brought in by medina from [facility] s/p seizure at 1700 and c/o generalized weakness. patient presents with spontaneous eye opening; withdraws to painful stimuli. no acute distress. vss. presents with no seizure activity. gtube noted; flushed and patent. changed into gown; attached to monitor. seizure precautions observed; head of bed raised; seizure pads placed. side rails raised; bed locked at lowest position.
--- NOTE | 2019-07-16 21:15 | NUR ---
ED Nurse Note: iv access established. blood vre cre mrsa swabs collected; sent down to lab.
[2019-07-16 21:34] LABS: BASOPHILS % (AUTO) 1.6 % (0.0-2.0); EOSINOPHILS % (AUTO) 0.2 % (0.0-3.0); HEMATOCRIT 48.5 % (42.0-52.0); HEMOGLOBIN 15.2 G/DL (14.2-18.0); LYMPHOCYTES % (AUTO) 18.2 % (20.0-45.0); MEAN CORPUSCULAR VOLUME 70 FL (80-99); MONOCYTES % (AUTO) 7.6 % (1.0-10.0); NEUTROPHILS % (AUTO) 72.5 % (45.0-75.0); PLATELET COUNT 154 K/UL (150-450); RED BLOOD COUNT 6.92 M/UL (4.70-6.10); RED CELL DISTRIBUTION WIDTH 13.2 % (11.6-14.8); WHITE BLOOD COUNT 9.7 K/UL (4.8-10.8)
[2019-07-16 21:55] LABS: ANION GAP 12 mmol/L (5-15); BLOOD UREA NITROGEN 29 mg/dL (7-18); CARBON DIOXIDE 24 MMOL/L (21-32); CHLORIDE 105 MMOL/L (98-107); POTASSIUM 5.1 MMOL/L (3.5-5.1); SODIUM 141 MMOL/L (136-145)
[2019-07-16 21:59] LABS: ALANINE AMINOTRANSFERASE 23 U/L (12-78); ALBUMIN 3.9 G/DL (3.4-5.0); ALBUMIN/GLOBULIN RATIO 0.8 (1.0-2.7); ALKALINE PHOSPHATASE 110 U/L (46-116); ASPARTATE AMINO TRANSFERASE 16 U/L (15-37); BILIRUBIN,TOTAL 0.4 MG/DL (0.2-1.0)
--- NOTE | 2019-07-16 22:00 | NUR ---
ED Nurse Note: skin assessment: skin dry and flaky. old healed wound noted on right leg. otherwise, skin intact.
--- NOTE | 2019-07-16 22:22 | Emergency Room Report ---
History of Present Illness General Chief Complaint: Seizure Present Illness HPI Patient is a 63-year-old male brought in by ambulance for increased generalized weakness and recent seizure. Patient prior history of seizure disorder and has petit mall seizures. He is G-tube dependent. Patient had been noted to have increased seizure activity with a seizure approximately 2 hours prior to arrival. History is markedly limited by patient's mental status. He is normally on Keppra as well as other seizure medications. Allergies: Coded Allergies: NO KNOWN DRUG ALLERGIES (Unverified Allergy, Unknown, 07/16/19) Patient History Past Medical History: see triage record Reviewed Nursing Documentation: PMH: Agreed; PSxH: Agreed Nursing Documentation-PMH Hx Cardiac Problems: Yes Hx Hypertension: Yes Hx Pacemaker: No Hx Asthma: No Hx COPD: Yes Hx Diabetes: Yes - dm2 Hx Cancer: No Hx Gastrointestinal Problems: Yes - Dysphagia, Hx Dialysis: No - BPH Hx Cerebrovascular Accident: Yes Hx Parkinson's Disease: Yes Hx Seizures: Yes Hx Epilepsy: Yes Hx Cerebral Palsy: Yes Hx Speech Problem: Yes Hx Aphasia: Yes Hx Weakness: Yes Review of Systems All Other Systems: limited - Review of systems: Review systems is limited by patient's being a poor historian Physical Exam Vital Signs Date Time Temp Pulse Resp B/P (MAP) Pulse Ox O2 Delivery O2 Flow Rate FiO2 07/16/19 20:26 97.2 108 18 117/71 (86) 93 07/16/19 20:30 Nasal Cannula 2.0 General Appearance: alert, Chronically Ill Eyes: bilateral eye PERRL ENT: hearing grossly normal Neck: limited range of motion Respiratory: lungs clear Cardiovascular #1: no edema, tachycardia Gastrointestinal: non tender, other Neurologic: motor weakness, responsive, other - Repetitive speech Psychiatric: depressed affect Skin: no rash Medical Decision Making Diagnostic Impression: Primary Impression: Uncontrolled seizures ER Course Patient presented for seizure. Differential diagnosis include was not limited to electrolyte abnormality, urinary tract infection, subtherapeutic anticonvulsant among others. Because of complexity of patient's case laboratory tests and imaging studies were ordered. Patient was noted to have some prior history of seizure disorder. He did not appear to be any acute distress. Patient did not show any evidence of acute infection however he is very difficult to assess given mental limitations. Dr. Donaldo Johnson was contacted for inpatient management due to primary care physician Laboratory Tests Test 07/19/19 05:21 White Blood Count 8.9 K/UL (4.8-10.8) Red Blood Count 6.24 M/UL (4.70-6.10) H Hemoglobin 13.9 G/DL (14.2-18.0) L Hematocrit 43.9 % (42.0-52.0) Mean Corpuscular Volume 70 FL (80-99) L Mean Corpuscular Hemoglobin 22.2 PG (27.0-31.0) L Mean Corpuscular Hemoglobin Concent 31.6 G/DL (32.0-36.0) L Red Cell Distribution Width 13.1 % (11.6-14.8) Platelet Count 235 K/UL (150-450) Mean Platelet Volume 8.8 FL (6.5-10.1) Neutrophils (%) (Auto) 61.6 % (45.0-75.0) Lymphocytes (%) (Auto) 24.6 % (20.0-45.0) Monocytes (%) (Auto) 11.8 % (1.0-10.0) H Eosinophils (%) (Auto) 1.2 % (0.0-3.0) Basophils (%) (Auto) 0.8 % (0.0-2.0) Sodium Level 148 MMOL/L (136-145) H Potassium Level 4.2 MMOL/L (3.5-5.1) Chloride Level 111 MMOL/L (98-107) H Carbon Dioxide Level 28 MMOL/L (21-32) Anion Gap 10 mmol/L (5-15) Blood Urea Nitrogen 34 mg/dL (7-18) H Creatinine 0.8 MG/DL (0.55-1.30) Estimate Glomerular Filtration Rate > 60 mL/min (>60) Glucose Level 144 MG/DL (74-106) H Calcium Level 9.9 MG/DL (8.5-10.1) Magnesium Level 2.3 MG/DL (1.8-2.4) Last Vital Signs Date Time Temp Pulse Resp B/P (MAP) Pulse Ox O2 Delivery O2 Flow Rate FiO2 07/16/19 20:30 97.2 114 18 117/71 93 Nasal Cannula 2.0 Status: improved Disposition: ADMITTED INPATIENT Condition: Stable Referrals: Donaldo Johnson DO (PCP) Ever Babcock MD Jul 16, 2019 22:22
[2019-07-16 22:30] VITALS: BP 109/69
[2019-07-16] MEDS ORDERED: Morphine Sulfate 2mg/ml Inj(IV/IM USE ONLY) IVP PRN (22:30)
[2019-07-16] MEDS ORDERED: LORazepam Inj 2mg/ml 1ml IV PRN (22:30)
[2019-07-16] MEDS ORDERED: Miralax 17gm pkt ORAL PRN (22:30)
[2019-07-16] MEDS ORDERED: Zolpidem 5mg tab ORAL PRN (23:00)
--- NOTE | 2019-07-16 23:00 | NUR ---
TRANSFER TO FLOOR: Patient transferred to tele 202-2 as ordered, per karen dodd. Report given to lana galindo. patient in stable condition. patient transferred to floor via gurney with rn and [facility]tech. belongings and admission packet sent with patient; belongings list completed with receiving rn. endorsed integumentary to receiving rn.
--- NOTE | 2019-07-16 23:30 | NUR ---
NURSE NOTES: Received report from Scott Shields RN regarding patient's transfer to TELE floor from ED, arrived via gurney and transferred to bed. Patient is awake, non-verbal and is responsive to tactile stimuli. Head to toe assessment initiated and skin checked and noted bilateral heel dryness and right heel DTI, WC protocol ordered. IV line intact and patent SL; on GTF with prescribed formula running as ordered, tolerated well with no A/R observed. Placed on continuous cardiac monitoring per protocol. Safety and seizure precaution in place; siderails X3 up and padded, call light within reach, bed in lowest position and free from clutter, brakes and alarm on at all times, suction equipment at bedside. Will continue plan of care Orders received and carried out per
[2019-07-17] VITALS: BP 104/75
[2019-07-17 04:00] VITALS: BP 123/74
[2019-07-17] MEDS: NovoLOG Insulin Flexpen SUBQ SCH ×4 (06:30→21:07)
--- NOTE | 2019-07-17 07:18 | NUR ---
HAND-OFF: Report given to Keily Valle RN. Patient in bed in stable condition, endorsed plan of care.
--- NOTE | 2019-07-17 07:38 | NUR ---
Report Received from Julio SORENSEN, Patient resting with closed eyes, non-verbal and is responsive to tactile stimuli. skin intact, skin discoloration noted on right heel, iv intact and patent ; on GTF with prescribed formula running as ordered, tolerated well with no A/R observed. Per report "patient experienced 90 sec seizure around 0330 am. Safety and seizure precaution in place;patient resting with closed eyes, no s/s of pain or agitation noted at this time. side rails up x 3 and padded, call light within reach, bed in lowest position and free from clutter, brakes and alarm on at all times, suction equipment at bedside. Will continue plan of car
[2019-07-17 08:11] LABS: BASOPHILS % (AUTO) 0.4 % (0.0-2.0); HEMATOCRIT 50.6 % (42.0-52.0); HEMOGLOBIN 16.1 G/DL (14.2-18.0); LYMPHOCYTES % (AUTO) 8.8 % (20.0-45.0); MEAN CORPUSCULAR VOLUME 70 FL (80-99); MONOCYTES % (AUTO) 6.9 % (1.0-10.0); NEUTROPHILS % (AUTO) 83.8 % (45.0-75.0); PLATELET COUNT 230 K/UL (150-450); RED BLOOD COUNT 7.19 M/UL (4.70-6.10); RED CELL DISTRIBUTION WIDTH 13.3 % (11.6-14.8); WHITE BLOOD COUNT 10.2 K/UL (4.8-10.8)
[2019-07-17 08:14] VITALS: BP 114/68
[2019-07-17 08:29] LABS: ALANINE AMINOTRANSFERASE 18 U/L (12-78); ALBUMIN 3.9 G/DL (3.4-5.0); ALBUMIN/GLOBULIN RATIO 0.8 (1.0-2.7); ALKALINE PHOSPHATASE 108 U/L (46-116); ANION GAP 10 mmol/L (5-15); ASPARTATE AMINO TRANSFERASE 13 U/L (15-37); BILIRUBIN,TOTAL 0.4 MG/DL (0.2-1.0); BLOOD UREA NITROGEN 29 mg/dL (7-18); CALCIUM 9.8 MG/DL (8.5-10.1); CARBON DIOXIDE 26 MMOL/L (21-32); CHLORIDE 107 MMOL/L (98-107); CREATININE 0.9 MG/DL (0.55-1.30); SODIUM 143 MMOL/L (136-145)
--- NOTE | 2019-07-17 08:41 | Consultation ---
History of Present Illness General Date patient seen: Jul 17, 2019 Time patient seen: 08:00 Chief Complaint: Seizure Referring physician: dr Johnson Reason for Consultation: COPD, asp risk Present Illness HPI 63 years old male with past medical history of COPD, diabetes mellitus type 2, dysphagia, feeding by G-tube, Parkinson disease, seizure disorder, history of cerebral palsy, hypertension, was brought by ambulance due to recent seizure activity and generalized weakness. Seizure occurred about 2 hours prior to arrival to ED. History was limited given patient's mental status. Upon evaluation in emergency department patient was placed on supplemental oxygen . Laboratory work-up revealed no leukocytosis , stable electrolytes . BUN slightly elevated 29 , creatinine 1.0 . Glucose 128. Patient subsequently admitted for further management. Allergies: Coded Allergies: NO KNOWN DRUG ALLERGIES (Unverified Allergy, Unknown, 07/16/19) Medication History Scheduled Ascorbic Acid* (Vitamin C*), 500 MG GT TWICE A DAY, (Reported) Clotrimazole* (Lotrimin*), 1 APPLIC TOPIC TWICE A DAY, (Reported) Docusate Sodium (Docusate Sodium), 100 MG GT TWICE A DAY, (Reported) Famotidine (Pepcid), 20 MG ORAL BEDTIME, (Reported) Finasteride* (Proscar*), 5 MG GT DAILY, (Reported) Heparin Sod (Porcine) (Heparin Sodium*), 5,000 UNITS SUBQ EVERY 12 HOURS, ( Reported) Insulin Detemir (Levemir Flextouch), 15 UNIT SQ ACBREAKFAST, (Reported) Lacosamide (Vimpat), 100 MG GT EVERY 12 HOURS, (Reported) Levetiracetam* (Levetiracetam*), 2,000 MG GT BID, (Reported) Magnesium Hydroxide (Milk of Magnesia), 30 ML GT BEDTIME, (Reported) Meropenem (Meropenem), 500 MG IV Q8HR, (Reported) Metoprolol Tartrate (Metoprolol Tartrate), 25 MG GT EVERY 12 HOURS, (Reported) Metoprolol Tartrate* (Metoprolol Tartrate*), 25 MG GT EVERY 12 HOURS, (Reported) Multivitamin Liquid* (Multi-Delyn*), 5 ML GT DAILY, (Reported) Omeprazole (Omeprazole), 20 MG GT DAILY, (Reported) Potassium Chloride (Potassium Chloride), 40 MEQ GT BID, (Reported) Ranitidine Hcl* (Zantac*), 150 MG GT BID, (Reported) Risperidone* (Risperdal*), 1 MG GT DAILY, (Reported) Sennosides/Docusate Sodium (Senna Laxative Tablet), 2 EACH GT QHS, (Reported) Valproate Sodium (Valproic Acid), 750 MG GT EVERY 12 HOURS, (Reported) Zinc Sulfate (Zinc Sulfate*), 220 MG ORAL DAILY, (Reported) Scheduled PRN Acetaminophen* (Acetaminophen 325MG Tablet*), 650 MG GT Q4H PRN for Fever/ Headache/Mild Pain, (Reported) Albuterol Sulfate* (Albuterol Sulfate Hhn*), 3 ML INH Q4H PRN for Shortness of Breath, (Reported) Bisacodyl (Dulcolax), 10 MG RC DAILY PRN for Constipation, (Reported) Dextrose 50 % In Water (Dextrose 50%-Water Vial), 50 ML IV for Hypoglycemia, ( Reported) Glucagon (Glucagen), 1 MG IJ NEEDED PRN for Hypoglycemia, (Reported) Ipratropium/Albuterol Sulfate (DuoNeb 0.5-3(2.5)mg/3ml), 3 ML HHN Q4HR PRN for Shortness of Breath, (Reported) Lorazepam* (Lorazepam*), 1 MG GT EVERY 12 HOURS PRN for For Anxiety, (Reported) Morphine Sulfate* (Morphine Sulfate*), 2 MG IVP Q4HR PRN for For Pain, (Reported ) Na Phos,M-B/Na Phos,Di-Ba* (Fleet Enema*), 133 ML RECTAL DAILY PRN for Constipation, (Reported) Nitroglycerin (Nitroglycerin), 0.4 MG SL q5mns x three doses PRN for chest pain, (Reported) Ondansetron* (Zofran*), 4 MG GT Q6H PRN for Nausea & Vomiting, (Reported) Polyethylene Glycol 3350* (Miralax*), 17 GM GT DAILY PRN for Constipation, ( Reported) Prochlorperazine Edisylate* (Compazine*), 10 MG IVP Q6H PRN for Nausea & Vomiting, (Reported) Miscellaneous Medications Lacosamide (Vimpat), 10 MG GT, (Reported) Lacosamide (Vimpat), 100 MG GT, (Reported) Magnesium Hydroxide* (Milk Of Magnesia*), 30 ML GT, (Reported) Valproate Sodium (Valproic Acid), 500 MG GT, (Reported) Water For Irrigation,Sterile (Water), 1,000 ML IR, (Reported) [insulin novolog], (Reported) Patient History Healthcare decision maker Resuscitation status Full Code Advanced Directive on File Past Medical/Surgical History Past Medical/Surgical History: (1) PEG (percutaneous endoscopic gastrostomy) adjustment/replacement/removal (2) cerebral pulsy with advanced mental retardation (3) Feeding by G-tube (4) Dehydration (5) Acute renal failure (6) UTI (urinary tract infection) (7) Altered level of consciousness (8) Diabetes mellitus out of control (9) Dehydration (10) Dermatitis (11) Diabetes (12) Anemia (13) Respiratory distress (14) Failure to thrive (15) Pancytopenia (16) Hypertension (17) Uncontrolled seizures (18) Attention to G-tube (19) Seizure disorder, partial, intractable (20) JULIO CÉSAR (acute kidney injury) Review of Systems ROS Narrative Not available given patients mental status Physical Exam General Appearance: no apparent distress, other - bedridden, chronically ill loooking male in NAD Lines, tubes and drains: peripheral HEENT: normocephalic, anicteric Neck: normal inspection Respiratory/Chest: lungs clear, no respiratory distress, no accessory muscle use Cardiovascular/Chest: normal peripheral pulses, normal rate, regular rhythm, no JVD Abdomen: normal bowel sounds, non tender, soft, feeding tube - G tube Extremities: no edema Skin Exam: warm/dry Neurologic: abnormal gait, other - not verbally responsive Musculoskeletal: atrophy - BLE Last 24 Hour Vital Signs Date Time Temp Pulse Resp B/P (MAP) Pulse Ox O2 Delivery O2 Flow Rate FiO2 07/17/19 08:14 97.9 95 20 114/68 (83) 97 07/17/19 04:00 2.0 07/17/19 04:00 109 07/17/19 04:00 97.9 108 18 123/74 (90) 96 07/17/19 03:30 161 07/17/19 00:00 97.3 106 16 104/75 (85) 99 07/17/19 00:00 97 07/17/19 00:00 2.0 07/16/19 23:42 Nasal Cannula 2.0 07/16/19 23:00 97.2 110 20 109/69 96 Nasal Cannula 2.0 07/16/19 22:30 97.2 110 20 109/69 96 Nasal Cannula 2.0 07/16/19 20:30 97.2 114 18 117/71 93 Nasal Cannula 2.0 07/16/19 20:30 108 18 Nasal Cannula 2.0 07/16/19 20:26 97.2 108 18 117/71 (86) 93 Intake and Output 07/16/19 07/17/19 19:00 07:00 Intake Total 30 ml Balance 30 ml Intake Tube Feeding 30 ml # Voids 2 # Bowel Movements 1 Laboratory Tests Test 07/16/19 21:15 07/17/19 05:26 White Blood Count 9.7 K/UL (4.8-10.8) 10.2 K/UL (4.8-10.8) Red Blood Count 6.92 M/UL (4.70-6.10) H 7.19 M/UL (4.70-6.10) H Hemoglobin 15.2 G/DL (14.2-18.0) 16.1 G/DL (14.2-18.0) Hematocrit 48.5 % (42.0-52.0) 50.6 % (42.0-52.0) Mean Corpuscular Volume 70 FL (80-99) L 70 FL (80-99) L Mean Corpuscular Hemoglobin 22.0 PG (27.0-31.0) L 22.4 PG (27.0-31.0) L Mean Corpuscular Hemoglobin Concent 31.5 G/DL (32.0-36.0) L 31.8 G/DL (32.0-36.0) L Red Cell Distribution Width 13.2 % (11.6-14.8) 13.3 % (11.6-14.8) Platelet Count 154 K/UL (150-450) 230 K/UL (150-450) Mean Platelet Volume 9.5 FL (6.5-10.1) 9.5 FL (6.5-10.1) Neutrophils (%) (Auto) 72.5 % (45.0-75.0) 83.8 % (45.0-75.0) H Lymphocytes (%) (Auto) 18.2 % (20.0-45.0) L 8.8 % (20.0-45.0) L Monocytes (%) (Auto) 7.6 % (1.0-10.0) 6.9 % (1.0-10.0) Eosinophils (%) (Auto) 0.2 % (0.0-3.0) 0.0 % (0.0-3.0) Basophils (%) (Auto) 1.6 % (0.0-2.0) 0.4 % (0.0-2.0) Sodium Level 141 MMOL/L (136-145) 143 MMOL/L (136-145) Potassium Level 5.1 MMOL/L (3.5-5.1) 5.0 MMOL/L (3.5-5.1) Chloride Level 105 MMOL/L (98-107) 107 MMOL/L (98-107) Carbon Dioxide Level 24 MMOL/L (21-32) 26 MMOL/L (21-32) Anion Gap 12 mmol/L (5-15) 10 mmol/L (5-15) Blood Urea Nitrogen 29 mg/dL (7-18) H 29 mg/dL (7-18) H Creatinine 1.0 MG/DL (0.55-1.30) 0.9 MG/DL (0.55-1.30) Estimat Glomerular Filtration Rate > 60 mL/min (>60) > 60 mL/min (>60) Glucose Level 128 MG/DL (74-106) H 147 MG/DL (74-106) H Calcium Level 10.0 MG/DL (8.5-10.1) 9.8 MG/DL (8.5-10.1) Total Bilirubin 0.4 MG/DL (0.2-1.0) 0.4 MG/DL (0.2-1.0) Aspartate Amino Transf (AST/SGOT) 16 U/L (15-37) 13 U/L (15-37) L Alanine Aminotransferase (ALT/SGPT) 23 U/L (12-78) 18 U/L (12-78) Alkaline Phosphatase 110 U/L (46-116) 108 U/L (46-116) Total Protein 8.7 G/DL (6.4-8.2) H 8.6 G/DL (6.4-8.2) H Albumin 3.9 G/DL (3.4-5.0) 3.9 G/DL (3.4-5.0) Globulin 4.8 g/dL 4.7 g/dL Albumin/Globulin Ratio 0.8 (1.0-2.7) L 0.8 (1.0-2.7) L Microbiology Date/Time Source Procedure Growth Status 07/16/19 21:15 Rectum Received Height (Feet): 5 Height (Inches): 7.00 Weight (Pounds): 165 Medications Current Medications Medications (Trade) Dose Ordered Sig/Monalisa Route PRN Reason Start Time Stop Time Status Last Admin Dose Admin Acetaminophen (Tylenol) 650 mg Q4H PRN ORAL fever 07/16/19 22:30 08/15/19 22:29 Dextrose (Dextrose 50%) 25 ml Q30M PRN IV Hypoglycemia 07/16/19 22:30 08/15/19 22:29 Famotidine (Pepcid) 20 mg BEDTIME ORAL 07/17/19 21:00 08/16/19 20:59 Finasteride (Proscar) 5 mg DAILY ORAL 07/17/19 09:00 08/16/19 08:59 Heparin Sodium (Porcine) (Heparin 5000 units/ml) 5,000 units EVERY 12 HOURS SUBQ 07/17/19 09:00 08/16/19 08:59 Insulin Aspart (NovoLOG) BEFORE MEALS AND HS SUBQ 07/17/19 06:30 08/16/19 06:29 Levetiracetam (Keppra) 2,000 mg BID GT 07/17/19 09:00 08/16/19 08:59 Lorazepam (Ativan 2mg/ml 1ml) 2 mg EVERY HOUR PRN IV seizures 07/16/19 22:30 07/23/19 22:29 07/17/19 03:46 Metoprolol Tartrate (Lopressor) 25 mg EVERY 12 HOURS GT 07/17/19 09:00 08/16/19 08:59 Morphine Sulfate (Morphine Sulfate) 1 mg EVERY 4 HOURS PRN IVP For Pain 07/16/19 22:30 07/23/19 22:29 Ondansetron HCl (Zofran) 4 mg Q6H PRN IVP Nausea & Vomiting 07/16/19 22:30 08/15/19 22:29 Polyethylene Glycol (Miralax) 17 gm HSPRN PRN ORAL Constipation 07/16/19 22:30 08/15/19 22:29 Risperidone (RisperDAL) 1 mg DAILY GT 07/17/19 09:00 08/16/19 08:59 Zolpidem Tartrate (Ambien) 5 mg HSPRN PRN ORAL Insomnia 07/16/19 23:00 07/23/19 22:59 Assessment/Plan Assessment/Plan: ASSESSMENT seizure disorder with breakthrough seizure episode acute encephalopathy on chronic mental retardation COPD Dysphagia feeding by G-tube Hypertension Diabetes mellitus Cerebral palsy PLAN OF CARE tele seizure precautions continue Keppra LFT stable despite high dose of Keppra consider neuro eval as per primary physician O2 HHN prn CXR aspir precautions, GT feeding BP management with BB, optimize further as needed BS management with SSI DVT GI prophylaxis bowel regimen supportive care case discussed and evaluated by supervising physician Lia Desir NP Jul 17, 2019 08:41
[2019-07-17] MEDS: levETIRAcetam 500mg/5ml Liquid GT SCH ×2 (09:20→16:28)
[2019-07-17] MEDS: Heparin 5000 units/ml inj SUBQ SCH ×2 (09:21→20:58)
--- NOTE | 2019-07-17 11:00 | Diagnostic Imaging Report ---
Indication: Shortness of breath Technique: One view of the chest Comparison: 02/03/2018 Findings: Previously demonstrated central venous catheter is no longer evident. Inspiration is suboptimal. There is some atelectasis in the right perihilar region. Lungs and pleural spaces are otherwise clear. The heart size is normal Impression: No acute process
--- NOTE | 2019-07-17 11:08 | NUR ---
RADIOLOGY DEPT., CHEST X-RAY DONE-P.DYE
[2019-07-17 11:19] VITALS: BP 101/72
--- NOTE | 2019-07-17 14:16 | NUR ---
RD ASSESSMENT & RECOMMENDATIONS SEE CARE ACTIVITY FOR COMPLETE ASSESSMENT DAILY ESTIMATED NEEDS: Needs based on DM, WOUND (71kg) 25-30 kcals/kg 3969-8526 total kcals 1.25-1.5 g protein/kg 88-106 g total protein 25-30 mL/kg 1824-3844 total fluid mLs NUTRITION DIAGNOSIS: 1) Swallowing difficulty R/T dysphagia, hx CVA as evidenced by pt on PEG feeding. CURRENT TF:Glucerna 1.2 @ 30ml/hr x 24 hrs ENTERAL NUTRITION RECOMMENDATIONS: Glucerna 1.2 @ 65ml/hr x 24 hrs to provide 1560ml, 1872kcal, 94g prot, 1256ml free water * INCREASE goal rate to 65ml/hr x 24 hrs -> advance 10ml q 4-6 hrs as tolerated to goal rate * HOB>30 degrees * Water flush of 120ml q 4 hrs ADDITIONAL RECOMMENDATIONS: 1) Calibrated bed scale for accurate wts -> per SNF: HT=68", JM=592eol (07/04/19) 2) Check lytes daily, replete as needed 3) F/up w/ WC eval -> add Rashid 1ptk BID for skin integrity -> TF rec @ goal will provide 100% RDI
[2019-07-17 16:00] VITALS: BP 106/78
--- NOTE | 2019-07-17 16:30 | History and Physical Report ---
DATE OF ADMISSION: 07/16/2019 TIME SEEN: 2 p.m. CONSULTANTS: 1. Lucie Gracia M.D. 2. . 3. Joseph Winters M.D. CHIEF COMPLAINT: Shortness of breath, seizure, tachycardia, weakness. BRIEF HISTORY: This is a 63-year-old male from [facility], presented with above-mentioned diagnosis was admitted to telemetry for treatment, currently O2 NC, sleeping in bed, nonverbal. REVIEW OF SYSTEMS: Unavailable. PAST MEDICAL HISTORY: Seizure, decubitus, organic brain syndrome, acute renal failure, schizophrenia, weakness, failure to thrive, diabetes. PAST SURGICAL HISTORY: G-tube. MEDICATIONS: Include famotidine, finasteride, levetiracetam, metoprolol, Risperdal, insulin, zolpidem, polyethylene glycol, morphine, Zofran. ALLERGIES: Denies. SOCIAL HISTORY: Unable to obtain secondary to the patient's condition. PHYSICAL EXAMINATION: GENERAL: Lethargic in bed, O2 NC, nonverbal. VITAL SIGNS: Temperature 97, pulse 82, respiratory rate 20, blood pressure 101/72. CARDIOVASCULAR: No murmur. LUNGS: Poor exchange. ABDOMEN: Bowel sounds distant. EXTREMITIES: No cyanosis, clubbing, or edema. NEUROLOGIC: The patient is flaccid in bed, not following directions. LABORATORY DATA: Labs, at this time, show CBC is normal. BMP show BUN 29, glucose 147, otherwise normal. ASSESSMENT: 1. Seizure. 2. Shortness of breath. 3. Weakness. 4. Tachycardia. 5. Decubitus ulcer. 6. OBS. 7. Acute renal failure. 8. Schizophrenia. 9. Failure to thrive. 10. Diabetes. PLAN: 1. Resume home medications. 2. Blood pressure, blood sugar, pain control. 3. G-tube feed, O2 and pulmonary treatment as needed. 4. Seizure control. 5. PT and dietary evaluation. 6. CBC and BMP in the morning. Donaldo Johnson D.O. DR: Rose Mary JOB#: [id number] CC:
--- NOTE | 2019-07-17 16:45 | NUR ---
CASE MANAGEMENT:REVIEW 63 YR OLD MALE BIBA FROM [facility] CC;SEIZURE SI;EPILEPTIC SEIZURE 97.1 108 18 117/71 93% RA BUN 29 RBC 6.92 ALB 0.8 IS;IV NS ADMITTED TO TELE DCP; DC TO SNF
--- NOTE | 2019-07-17 19:21 | NUR ---
HAND-OFF: Report given to Bacos RN.
--- NOTE | 2019-07-17 19:33 | Cardiology Progress Note ---
Assessment/Plan Assessment/Plan [id number] Objective Last 24 Hour Vital Signs Date Time Temp Pulse Resp B/P (MAP) Pulse Ox O2 Delivery O2 Flow Rate FiO2 07/17/19 16:46 2.0 07/17/19 16:00 97.9 102 20 106/78 (87) 100 07/17/19 12:00 2.0 07/17/19 12:00 84 07/17/19 11:19 97.3 82 20 101/72 (82) 98 07/17/19 09:21 95 114/68 07/17/19 09:00 Nasal Cannula 2.0 07/17/19 08:14 97.9 95 20 114/68 (83) 97 07/17/19 08:00 2.0 07/17/19 08:00 97 07/17/19 04:00 2.0 07/17/19 04:00 109 07/17/19 04:00 97.9 108 18 123/74 (90) 96 07/17/19 03:30 161 07/17/19 00:00 97.3 106 16 104/75 (85) 99 07/17/19 00:00 97 07/17/19 00:00 2.0 07/16/19 23:42 Nasal Cannula 2.0 07/16/19 23:00 97.2 110 20 109/69 96 Nasal Cannula 2.0 07/16/19 22:30 97.2 110 20 109/69 96 Nasal Cannula 2.0 07/16/19 20:30 97.2 114 18 117/71 93 Nasal Cannula 2.0 07/16/19 20:30 108 18 Nasal Cannula 2.0 07/16/19 20:26 97.2 108 18 117/71 (86) 93 Intake and Output 07/16/19 07/17/19 19:00 07:00 Intake Total 30 ml Balance 30 ml Intake Tube Feeding 30 ml # Voids 2 # Bowel Movements 1 Laboratory Tests Test 07/16/19 21:15 07/17/19 05:26 White Blood Count 9.7 K/UL (4.8-10.8) 10.2 K/UL (4.8-10.8) Red Blood Count 6.92 M/UL (4.70-6.10) H 7.19 M/UL (4.70-6.10) H Hemoglobin 15.2 G/DL (14.2-18.0) 16.1 G/DL (14.2-18.0) Hematocrit 48.5 % (42.0-52.0) 50.6 % (42.0-52.0) Mean Corpuscular Volume 70 FL (80-99) L 70 FL (80-99) L Mean Corpuscular Hemoglobin 22.0 PG (27.0-31.0) L 22.4 PG (27.0-31.0) L Mean Corpuscular Hemoglobin Concent 31.5 G/DL (32.0-36.0) L 31.8 G/DL (32.0-36.0) L Red Cell Distribution Width 13.2 % (11.6-14.8) 13.3 % (11.6-14.8) Platelet Count 154 K/UL (150-450) 230 K/UL (150-450) Mean Platelet Volume 9.5 FL (6.5-10.1) 9.5 FL (6.5-10.1) Neutrophils (%) (Auto) 72.5 % (45.0-75.0) 83.8 % (45.0-75.0) H Lymphocytes (%) (Auto) 18.2 % (20.0-45.0) L 8.8 % (20.0-45.0) L Monocytes (%) (Auto) 7.6 % (1.0-10.0) 6.9 % (1.0-10.0) Eosinophils (%) (Auto) 0.2 % (0.0-3.0) 0.0 % (0.0-3.0) Basophils (%) (Auto) 1.6 % (0.0-2.0) 0.4 % (0.0-2.0) Sodium Level 141 MMOL/L (136-145) 143 MMOL/L (136-145) Potassium Level 5.1 MMOL/L (3.5-5.1) 5.0 MMOL/L (3.5-5.1) Chloride Level 105 MMOL/L (98-107) 107 MMOL/L (98-107) Carbon Dioxide Level 24 MMOL/L (21-32) 26 MMOL/L (21-32) Anion Gap 12 mmol/L (5-15) 10 mmol/L (5-15) Blood Urea Nitrogen 29 mg/dL (7-18) H 29 mg/dL (7-18) H Creatinine 1.0 MG/DL (0.55-1.30) 0.9 MG/DL (0.55-1.30) Estimat Glomerular Filtration Rate > 60 mL/min (>60) > 60 mL/min (>60) Glucose Level 128 MG/DL (74-106) H 147 MG/DL (74-106) H Calcium Level 10.0 MG/DL (8.5-10.1) 9.8 MG/DL (8.5-10.1) Total Bilirubin 0.4 MG/DL (0.2-1.0) 0.4 MG/DL (0.2-1.0) Aspartate Amino Transf (AST/SGOT) 16 U/L (15-37) 13 U/L (15-37) L Alanine Aminotransferase (ALT/SGPT) 23 U/L (12-78) 18 U/L (12-78) Alkaline Phosphatase 110 U/L (46-116) 108 U/L (46-116) Total Protein 8.7 G/DL (6.4-8.2) H 8.6 G/DL (6.4-8.2) H Albumin 3.9 G/DL (3.4-5.0) 3.9 G/DL (3.4-5.0) Globulin 4.8 g/dL 4.7 g/dL Albumin/Globulin Ratio 0.8 (1.0-2.7) L 0.8 (1.0-2.7) L Microbiology Date/Time Source Procedure Growth Status 07/16/19 21:15 Rectum Received Joseph Winters MD Jul 17, 2019 19:32
[2019-07-17 20:00] VITALS: BP 103/66
--- NOTE | 2019-07-17 20:18 | NUR ---
NURSE NOTES: Received patient from Mark, RN , stable condition alert not oriented, responsive to stimuli, not able to make needs known, Gtube patent, Iv left hand g 18 SL, asymptomatic, patent, bed low&locked, side rails upx3, side rails padded, call light within reach, will continue to monitor and reassess
[2019-07-17] MEDS: Metoprolol Tartrate 12.5mg TAB GT SCH (20:57)
--- NOTE | 2019-07-17 22:00 | Consultation ---
DATE OF CONSULTATION: 07/17/2019 CARDIOLOGY CONSULTATION CONSULTING PHYSICIAN: Joseph Winters M.D. REFERRING PHYSICIAN: Donaldo Johnson D.O. REASON FOR REFERRAL: Tachycardia. HISTORY OF PRESENT ILLNESS: This is an unfortunate middle-aged gentleman with multiple medical problems. The patient is a resident of convalescent facility. He was transferred because of lethargy, weakness, generalized seizure, and recent seizures. The patient with history of prior seizure disorder and has had petit mal seizures before. He is G-tube dependent, noted to have increased seizure activity recently for approximately 2 hours prior to arrival. The patient is not able to provide any meaningful history whatsoever. Information was obtained from review of the patient's chart. The patient usually is on Keppra for seizure control. He was noted to have tachycardia, therefore this consultation requested. PAST MEDICAL HISTORY: Positive for history of sepsis secondary to previous Klebsiella and E. coli pneumonia, toxic metabolic encephalopathy, seizure disorder, cerebral palsy with advanced mental retardation, hyponatremia, acute on chronic renal failure, diabetes mellitus, dysphagia with G-tube, sinus tachycardia, hypertension, old CVA, schizoaffective disorder, and reported history of coronary disease although details of coronary disease is really not clear. PAST SURGICAL HISTORY: Positive for PEG placement. ALLERGIES: He is not allergic to any medications. SOCIAL HISTORY: No history of tobacco, alcohol, or drug use before. FAMILY HISTORY: No premature coronary artery disease in first degree relatives. REVIEW OF SYSTEMS: Unable to obtain. PHYSICAL EXAMINATION: GENERAL: Shows to be an elderly middle-aged gentleman, not communicative or responsive. NECK: Supple. No jugular venous distention. LUNGS: Clear to auscultation and percussion anteriorly. CARDIAC: Borderline tachycardia. No heaves or thrills noted. ABDOMEN: Soft, nontender. G-tube is present. EXTREMITIES: There is no edema, no clubbing or cyanosis. LABORATORY VALUES: The patient's telemetry data shows sinus tachycardia with episodes of extreme sinus tachycardia being noted at approximately 3 o'clock in the morning today while the patient was having seizures according to the documentation here. Otherwise, EKG, sinus tachycardia, rate 106, no ST-T abnormalities being documented. The patient has a white count of 10, hemoglobin of 16.1, and platelet count of 230. Chemistry, sodium 142, potassium 5.0, chloride 107, bicarb 26, BUN of 29, creatinine 0.9, glucose 147. Liver function tests are normal. Imaging was performed, includes a chest x-ray that was performed today that basically showed no acute processes. ASSESSMENT AND PLAN: 1. Sinus tachycardia secondary to seizures. 2. Seizure disorder. 3. Cerebral palsy. 4. Mental retardation. 5. G-tube dependent. This patient was seen in cardiac consultation. The patient has some episodes of sinus tachycardia likely secondary to seizures or volume related. I think may be in light of the fact that he , venous duplex study of the lower extremities should be performed to further evaluate and does not appear to be hypoxic, however. It is likely that the tachycardia may be related to the seizures as the underlying cause. He has had sinus tachycardia of 161 earlier, that was at the time of the actual seizures as well. Intravenous fluids will be continued. The patient will be followed. Echocardiogram will be ordered for evaluation. Consider evaluation of the urine to make sure there is no evidence of urinary tract infection. Joseph Winters M.D. DR: Pippa JOB#: [id number] CC:
[2019-07-18] VITALS: BP 101/65
[2019-07-18 04:50] VITALS: BP 107/67
[2019-07-18] MEDS: NovoLOG Insulin Flexpen SUBQ SCH ×4 (06:31→22:01)
--- NOTE | 2019-07-18 07:35 | NUR ---
HAND-OFF: Report given to EDU Jarrell, patient in stable condition, plan of care endorsed.
[2019-07-18 07:41] LABS: BASOPHILS % (AUTO) 1.1 % (0.0-2.0); EOSINOPHILS % (AUTO) 1.4 % (0.0-3.0); HEMATOCRIT 44.4 % (42.0-52.0); HEMOGLOBIN 14.1 G/DL (14.2-18.0); LYMPHOCYTES % (AUTO) 36.5 % (20.0-45.0); MEAN CORPUSCULAR VOLUME 71 FL (80-99); MONOCYTES % (AUTO) 13.6 % (1.0-10.0); NEUTROPHILS % (AUTO) 47.4 % (45.0-75.0); PLATELET COUNT 235 K/UL (150-450); RED BLOOD COUNT 6.27 M/UL (4.70-6.10); RED CELL DISTRIBUTION WIDTH 13.5 % (11.6-14.8); WHITE BLOOD COUNT 6.2 K/UL (4.8-10.8)
--- NOTE | 2019-07-18 07:52 | NUR ---
NURSE NOTES: Patient received from Marielena Robert RN. Patient stable with no s/sx of ditress. RR even and unlabored. Feeding infusing at 60mL/hr. Side rails padded and up x3, call light within reach, bed low and locked. Will continue to monitor.
[2019-07-18 08:00] VITALS: BP 102/72
[2019-07-18 08:18] LABS: ANION GAP 9 mmol/L (5-15); BLOOD UREA NITROGEN 33 mg/dL (7-18); CALCIUM 9.2 MG/DL (8.5-10.1); CARBON DIOXIDE 24 MMOL/L (21-32); CHLORIDE 109 MMOL/L (98-107); SODIUM 142 MMOL/L (136-145)
--- NOTE | 2019-07-18 08:35 | General Progress Note ---
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 SNOMED: 858916247 (4) Decubitus ulcer ICD Codes: L89.90 - Pressure ulcer of unspecified site, unspecified stage SNOMED: 747736025 (5) ARF (acute renal failure) ICD Codes: N17.9 - Acute kidney failure, unspecified SNOMED: 66071795 (6) Diabetes ICD Codes: E11.9 - Type 2 diabetes mellitus without complications SNOMED: 59880355 (7) FTT (failure to thrive) in adult ICD Codes: R62.7 - Adult failure to thrive SNOMED: 413946301 (8) Seizure ICD Codes: R56.9 - Seizure SNOMED: 17362711 (9) Altered level of consciousness ICD Codes: R40.4 - Transient alteration of awareness SNOMED: 9639654 Status: unchanged Assessment/Plan: o2 pulm tx seizure control sound care pt diet cbc bmp am Subjective Constitutional: Reports: weakness Allergies: Coded Allergies: NO KNOWN DRUG ALLERGIES (Unverified Allergy, Unknown, 07/16/19) All Systems: reviewed and negative except above Subjective o2nc sleep Objective Last 24 Hour Vital Signs Date Time Temp Pulse Resp B/P (MAP) Pulse Ox O2 Delivery O2 Flow Rate FiO2 07/18/19 08:00 98.6 86 18 102/72 (82) 95 07/18/19 04:50 98.3 96 16 107/67 (80) 98 07/18/19 04:15 2.0 07/18/19 04:00 96 07/18/19 00:00 98.6 96 16 101/65 (77) 98 07/18/19 00:00 96 07/17/19 21:00 Nasal Cannula 2.0 07/17/19 20:57 113 103/66 07/17/19 20:00 108 07/17/19 20:00 98.6 113 20 103/66 (78) 96 07/17/19 20:00 2.0 07/17/19 16:46 2.0 07/17/19 16:00 97.9 102 20 106/78 (87) 100 07/17/19 12:00 2.0 07/17/19 12:00 84 07/17/19 11:19 97.3 82 20 101/72 (82) 98 07/17/19 09:21 95 114/68 07/17/19 09:00 Nasal Cannula 2.0 Intake and Output 07/17/19 07/18/19 19:00 07:00 Intake Total 700 ml Balance 700 ml Intake Oral 700 ml # Voids 2 3 # Bowel Movements 1 1 Laboratory Tests 07/18/19 06:21: White Blood Count 6.2, Red Blood Count 6.27H, Hemoglobin 14.1L, Hematocrit 44.4 , Mean Corpuscular Volume 71L, Mean Corpuscular Hemoglobin 22.4L, Mean Corpuscular Hemoglobin Concent 31.7L, Red Cell Distribution Width 13.5, Platelet Count 235, Mean Platelet Volume 10.4H, Neutrophils (%) (Auto) 47.4, Lymphocytes (%) (Auto) 36.5, Monocytes (%) (Auto) 13.6H, Eosinophils (%) (Auto) 1.4, Basophils (%) (Auto) 1.1, Sodium Level 142, Potassium Level 4.0, Chloride Level 109H, Carbon Dioxide Level 24, Anion Gap 9, Blood Urea Nitrogen 33H, Creatinine 1.0, Estimat Glomerular Filtration Rate > 60, Glucose Level 162H, Calcium Level 9.2, Thyroid Stimulating Hormone (TSH) 2.103 Height (Feet): 5 Height (Inches): 7.00 Weight (Pounds): 165 General Appearance: lethargic EENT: normal ENT inspection Neck: normal alignment Cardiovascular: normal peripheral pulses, normal rate, regular rhythm Respiratory/Chest: chest wall non-tender, lungs clear, normal breath sounds Abdomen: normal bowel sounds, non tender, soft Extremities: normal inspection Edema: no edema noted Arm (L), no edema noted Arm (R), no edema noted Leg (L), no edema noted Leg (R), no edema noted Pedal (L), no edema noted Pedal (R), no edema noted Generalized Neurologic: motor weakness Skin: normal pigmentation, warm/dry Donaldo Johnson DO Jul 18, 2019 08:35
[2019-07-18] MEDS: Metoprolol Tartrate 12.5mg TAB GT SCH ×2 (09:00→21:59)
[2019-07-18] MEDS: Heparin 5000 units/ml inj SUBQ SCH ×2 (09:05→21:59)
[2019-07-18] MEDS: levETIRAcetam 500mg/5ml Liquid GT SCH ×2 (09:05→17:14)
[2019-07-18 12:00] VITALS: BP 104/70
--- NOTE | 2019-07-18 12:21 | NUR ---
NURSE NOTES: Pt observed pulling on gtube x2. Restrainst applied for safety.
--- NOTE | 2019-07-18 12:34 | NUR ---
CARDIOLOGY: [facility] ROOM : 202-2 [id number] Temporary 2-D ECHO REPORT Technically difficult study due to poor acoustical windows & pt's position . Normal left ventricular chamber size, systolic function and wall motion to extent visualized. Left ventricular ejection fraction estimated to be 60-65%. No evidence of left ventricular hypertrophy . No evidence of pericardial effusion. All other cardiac chamber sizes are within normal limits. Focal aortic valve sclerosis with adequate cusp excursion. Thickened mitral valve leaflets with normal excursion. Mitral annulus and aortic root calcification. Pulmonic valve not well visualized. Normal tricuspid valve structure. Subcostal views not obtainbale due to GI-tube. A color flow and spectral Doppler study was performed and revealed: No aortic insufficiency. Trace mitral regurgitation. Mitral diastolic velocities suggest reduced left ventricular relaxation c/w mild LV diastolic dysfunction (Grade I ). Trace tricuspid regurgitation. Tricuspid systolic velocities suggests peak right ventricular systolic pressure of 14 mmHg.
--- NOTE | 2019-07-18 12:44 | Pulmonology Progress Note ---
Assessment/Plan Assessment/Plan ASSESSMENT seizure disorder with breakthrough seizure episode acute encephalopathy on chronic mental retardation COPD Dysphagia feeding by G-tube Hypertension Diabetes mellitus Cerebral palsy PLAN OF CARE tele seizure precaution continue Keppra LFT stable despite high dose of Keppra consider neuro eval as per primary physician O2 HHN prn CXR stable aspir precautions, GT feeding BP management with BB, optimize further as needed ST resolved , likely due to seizures as per cardio BS management with SSI DVT GI prophylaxis bowel regimen supportive care case discussed and evaluated by supervising physician Subjective Allergies: Coded Allergies: NO KNOWN DRUG ALLERGIES (Unverified Allergy, Unknown, 07/16/19) Subjective remains afebrile, no leukocytosis no further seizures tachy resolved Objective Last 24 Hour Vital Signs Date Time Temp Pulse Resp B/P (MAP) Pulse Ox O2 Delivery O2 Flow Rate FiO2 07/18/19 09:00 2.0 07/18/19 09:00 86 102/72 07/18/19 09:00 Nasal Cannula 2.0 07/18/19 08:00 98.6 86 18 102/72 (82) 95 07/18/19 04:50 98.3 96 16 107/67 (80) 98 07/18/19 04:15 2.0 07/18/19 04:00 96 07/18/19 00:00 98.6 96 16 101/65 (77) 98 07/18/19 00:00 96 07/17/19 21:00 Nasal Cannula 2.0 07/17/19 20:57 113 103/66 07/17/19 20:00 108 07/17/19 20:00 98.6 113 20 103/66 (78) 96 07/17/19 20:00 2.0 07/17/19 16:46 2.0 07/17/19 16:00 97.9 102 20 106/78 (87) 100 Intake and Output 07/17/19 07/18/19 19:00 07:00 Intake Total 700 ml Balance 700 ml Intake Oral 700 ml # Voids 2 3 # Bowel Movements 1 1 Objective General Appearance: no apparent distress, bedridden, chronically ill looking male in NAD Lines, tubes and drains: peripheral HEENT: normocephalic, anicteric Neck: normal inspection Respiratory/Chest: lungs clear, no respiratory distress, no accessory muscle use Cardiovascular/Chest: normal peripheral pulses, normal rate, regular rhythm, no JVD Abdomen: normal bowel sounds, non tender, soft, feeding tube/ G tube Extremities: no edema Skin Exam: warm/dry Neurologic: abnormal gait, not verbally responsive Musculoskeletal: atrophy - BLE Microbiology Date/Time Source Procedure Growth Status 07/16/19 21:15 Rectum Received Laboratory Tests 07/18/19 06:21: White Blood Count 6.2, Red Blood Count 6.27H, Hemoglobin 14.1L, Hematocrit 44.4 , Mean Corpuscular Volume 71L, Mean Corpuscular Hemoglobin 22.4L, Mean Corpuscular Hemoglobin Concent 31.7L, Red Cell Distribution Width 13.5, Platelet Count 235, Mean Platelet Volume 10.4H, Neutrophils (%) (Auto) 47.4, Lymphocytes (%) (Auto) 36.5, Monocytes (%) (Auto) 13.6H, Eosinophils (%) (Auto) 1.4, Basophils (%) (Auto) 1.1, Sodium Level 142, Potassium Level 4.0, Chloride Level 109H, Carbon Dioxide Level 24, Anion Gap 9, Blood Urea Nitrogen 33H, Creatinine 1.0, Estimat Glomerular Filtration Rate > 60, Glucose Level 162H, Calcium Level 9.2, Thyroid Stimulating Hormone (TSH) 2.103 Current Medications Medications (Trade) Dose Ordered Sig/Monalisa Route PRN Reason Start Time Stop Time Status Last Admin Dose Admin Acetaminophen (Tylenol) 650 mg Q4H PRN ORAL fever 07/16/19 22:30 08/15/19 22:29 Dextrose (Dextrose 50%) 25 ml Q30M PRN IV Hypoglycemia 07/16/19 22:30 08/15/19 22:29 Famotidine (Pepcid) 20 mg BEDTIME ORAL 07/17/19 21:00 08/16/19 20:59 07/17/19 20:57 Finasteride (Proscar) 5 mg DAILY ORAL 07/17/19 09:00 08/16/19 08:59 07/18/19 09:05 Heparin Sodium (Porcine) (Heparin 5000 units/ml) 5,000 units EVERY 12 HOURS SUBQ 07/17/19 09:00 08/16/19 08:59 07/18/19 09:05 Insulin Aspart (NovoLOG) BEFORE MEALS AND HS SUBQ 07/17/19 06:30 08/16/19 06:29 07/18/19 11:26 Levetiracetam (Keppra) 2,000 mg BID GT 07/17/19 09:00 08/16/19 08:59 07/18/19 09:05 Lorazepam (Ativan 2mg/ml 1ml) 2 mg EVERY HOUR PRN IV seizures 07/16/19 22:30 07/23/19 22:29 07/17/19 03:46 Metoprolol Tartrate (Lopressor) 12.5 mg Q12HR GT 07/17/19 21:00 08/16/19 20:59 07/17/19 20:57 Morphine Sulfate (Morphine Sulfate) 1 mg EVERY 4 HOURS PRN IVP For Pain 07/16/19 22:30 07/23/19 22:29 Ondansetron HCl (Zofran) 4 mg Q6H PRN IVP Nausea & Vomiting 07/16/19 22:30 08/15/19 22:29 Polyethylene Glycol (Miralax) 17 gm HSPRN PRN ORAL Constipation 07/16/19 22:30 08/15/19 22:29 Risperidone (RisperDAL) 1 mg DAILY GT 07/17/19 09:00 08/16/19 08:59 07/18/19 09:05 Zolpidem Tartrate (Ambien) 5 mg HSPRN PRN ORAL Insomnia 07/16/19 23:00 07/23/19 22:59 Lia Desir NP Jul 18, 2019 12:44
--- NOTE | 2019-07-18 15:39 | NUR ---
PT Note PT eval completed. Patient is at baseline level of function. No f/u PT recommended at this time.
[2019-07-18 16:00] VITALS: BP 105/80
--- NOTE | 2019-07-18 18:34 | Cardiology Progress Note ---
Assessment/Plan Problem List: (1) Sinus tachycardia (2) Altered level of consciousness (3) Seizure Status: stable, unchanged Status Narrative Pt adm with seizures - keppra adjusted per primary team He has sinus tachycardia - uncertain cause . Does not appear septic. ? vol depletion Assessment/Plan Continue b blockers consider short trial of IV fluids Management of seizures per primary team Subjective ROS Limited/Unobtainable: Yes Subjective Cardiology - coverage for Dr. Winters Pt awake, stating he has "low blood sugar." Does not answer questions. hx unreliable Objective Last 24 Hour Vital Signs Date Time Temp Pulse Resp B/P (MAP) Pulse Ox O2 Delivery O2 Flow Rate FiO2 07/18/19 16:00 98.1 60 18 105/80 (88) 100 07/18/19 12:00 116 07/18/19 12:00 96.7 86 20 104/70 (81) 96 07/18/19 12:00 2.0 07/18/19 09:00 2.0 07/18/19 09:00 86 102/72 07/18/19 09:00 Nasal Cannula 2.0 07/18/19 08:00 98.6 86 18 102/72 (82) 95 07/18/19 08:00 98 07/18/19 04:50 98.3 96 16 107/67 (80) 98 07/18/19 04:15 2.0 07/18/19 04:00 96 07/18/19 00:00 98.6 96 16 101/65 (77) 98 07/18/19 00:00 96 07/17/19 21:00 Nasal Cannula 2.0 07/17/19 20:57 113 103/66 07/17/19 20:00 108 07/17/19 20:00 98.6 113 20 103/66 (78) 96 07/17/19 20:00 2.0 General Appearance: WD/WN, no apparent distress EENT: PERRL/EOMI Neck: no JVD Rhythm: ST Cardiovascular: regular rhythm, no gallop/murmur, tachycardia Respiratory/Chest: lungs clear - clear anteriorly Abdomen: non tender, soft Extremities: no swelling Intake and Output 07/17/19 07/18/19 19:00 07:00 Intake Total 700 ml Balance 700 ml Intake Oral 700 ml # Voids 2 3 # Bowel Movements 1 1 Laboratory Tests Test 07/18/19 06:21 White Blood Count 6.2 K/UL (4.8-10.8) Red Blood Count 6.27 M/UL (4.70-6.10) H Hemoglobin 14.1 G/DL (14.2-18.0) L Hematocrit 44.4 % (42.0-52.0) Mean Corpuscular Volume 71 FL (80-99) L Mean Corpuscular Hemoglobin 22.4 PG (27.0-31.0) L Mean Corpuscular Hemoglobin Concent 31.7 G/DL (32.0-36.0) L Red Cell Distribution Width 13.5 % (11.6-14.8) Platelet Count 235 K/UL (150-450) Mean Platelet Volume 10.4 FL (6.5-10.1) H Neutrophils (%) (Auto) 47.4 % (45.0-75.0) Lymphocytes (%) (Auto) 36.5 % (20.0-45.0) Monocytes (%) (Auto) 13.6 % (1.0-10.0) H Eosinophils (%) (Auto) 1.4 % (0.0-3.0) Basophils (%) (Auto) 1.1 % (0.0-2.0) Sodium Level 142 MMOL/L (136-145) Potassium Level 4.0 MMOL/L (3.5-5.1) Chloride Level 109 MMOL/L (98-107) H Carbon Dioxide Level 24 MMOL/L (21-32) Anion Gap 9 mmol/L (5-15) Blood Urea Nitrogen 33 mg/dL (7-18) H Creatinine 1.0 MG/DL (0.55-1.30) Estimat Glomerular Filtration Rate > 60 mL/min (>60) Glucose Level 162 MG/DL (74-106) H Calcium Level 9.2 MG/DL (8.5-10.1) Thyroid Stimulating Hormone (TSH) 2.103 uiU/mL (0.358-3.740) Microbiology Date/Time Source Procedure Growth Status 07/16/19 21:15 Rectum Received aDri Nevarez MD Jul 18, 2019 18:34
[2019-07-18 20:00] VITALS: BP 122/63
--- NOTE | 2019-07-18 20:28 | NUR ---
HAND-OFF: Report given to Alejandrina Alvarez RN. Patient stable, endorsed plan of care.
--- NOTE | 2019-07-18 20:30 | NUR ---
NURSE NOTES: Patient received from EDU Phillips. Patient stable with no s/sx of ditress. RR even and unlabored. Feeding GT infusing at 60mL/hr, no residual. Side rails padded and up x3, call light within reach, bed low and locked. bilateral soft wrist restraints on as pt was pulling at GT. HOb up for aspiration precautions. Will continue to monitor.
--- NOTE | 2019-07-18 21:45 | NUR ---
NURSE NOTES: I called Dr Nevarez as pt had 8 beats of V tach. Dr Nevarez said to order BMP and magnesium for the morning 07/19 at 0400. Order carried out.
[2019-07-19] VITALS: BP 109/59
[2019-07-19 04:00] VITALS: BP 124/78
[2019-07-19] MEDS: NovoLOG Insulin Flexpen SUBQ SCH ×3 (06:49→17:33)
[2019-07-19 07:25] LABS: BASOPHILS % (AUTO) 0.8 % (0.0-2.0); EOSINOPHILS % (AUTO) 1.2 % (0.0-3.0); HEMATOCRIT 43.9 % (42.0-52.0); HEMOGLOBIN 13.9 G/DL (14.2-18.0); LYMPHOCYTES % (AUTO) 24.6 % (20.0-45.0); MEAN CORPUSCULAR VOLUME 70 FL (80-99); MONOCYTES % (AUTO) 11.8 % (1.0-10.0); NEUTROPHILS % (AUTO) 61.6 % (45.0-75.0); PLATELET COUNT 235 K/UL (150-450); RED BLOOD COUNT 6.24 M/UL (4.70-6.10); RED CELL DISTRIBUTION WIDTH 13.1 % (11.6-14.8); WHITE BLOOD COUNT 8.9 K/UL (4.8-10.8)
--- NOTE | 2019-07-19 07:25 | NUR ---
HAND-OFF: Report given to EDU Salinas.
--- NOTE | 2019-07-19 07:25 | NUR ---
NURSE NOTES: Received report from Esther SORENSEN. Alert and disoriented. No c/o pain and no acute distress noted. No seizure aura noted. HOB elevated 30degree. Side rails x2 up for safety. On bilateral wrist restraints patent and no skin breakdown noted. Noted stage 1 to Left foot. Floated heels. G-tube feeding running with GLUCERNA 1.2 @60ml/hr patent and asymptomatic. Will continue to plan of care.
[2019-07-19 07:32] LABS: ANION GAP 10 mmol/L (5-15); BLOOD UREA NITROGEN 34 mg/dL (7-18); CALCIUM 9.9 MG/DL (8.5-10.1); CARBON DIOXIDE 28 MMOL/L (21-32); CHLORIDE 111 MMOL/L (98-107); CREATININE 0.8 MG/DL (0.55-1.30); POTASSIUM 4.2 MMOL/L (3.5-5.1); SODIUM 148 MMOL/L (136-145)
[2019-07-19 08:00] VITALS: BP 124/78
[2019-07-19] MEDS: Metoprolol Tartrate 12.5mg TAB GT SCH ×2 (09:14→21:46)
[2019-07-19] MEDS: levETIRAcetam 500mg/5ml Liquid GT SCH ×2 (09:14→17:33)
[2019-07-19] MEDS: Heparin 5000 units/ml inj SUBQ SCH ×2 (09:15→21:47)
--- NOTE | 2019-07-19 10:04 | NUR ---
NURSE NOTES: Notified to Dr. Gracia regarding Na: 148 AND BUN/BC: 34/0.8 today.
--- NOTE | 2019-07-19 10:45 | General Progress Note ---
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 SNOMED: 213249302 (4) Decubitus ulcer ICD Codes: L89.90 - Pressure ulcer of unspecified site, unspecified stage SNOMED: 610223382 (5) ARF (acute renal failure) ICD Codes: N17.9 - Acute kidney failure, unspecified SNOMED: 88796317 (6) Diabetes ICD Codes: E11.9 - Type 2 diabetes mellitus without complications SNOMED: 48104217 (7) FTT (failure to thrive) in adult ICD Codes: R62.7 - Adult failure to thrive SNOMED: 773536589 (8) Seizure ICD Codes: R56.9 - Seizure SNOMED: 44610939 (9) Altered level of consciousness ICD Codes: R40.4 - Transient alteration of awareness SNOMED: 6988832 Status: stable, progressing Assessment/Plan: o2 pulm tx seizure control sound care pt diet cbc bmp am Subjective Constitutional: Reports: weakness Allergies: Coded Allergies: NO KNOWN DRUG ALLERGIES (Unverified Allergy, Unknown, 07/16/19) All Systems: reviewed and negative except above Subjective o2nc sleep Objective Last 24 Hour Vital Signs Date Time Temp Pulse Resp B/P (MAP) Pulse Ox O2 Delivery O2 Flow Rate FiO2 07/19/19 09:14 112 124/78 07/19/19 09:00 Nasal Cannula 2.0 07/19/19 08:00 2.0 07/19/19 08:00 97.9 112 20 124/78 (93) 99 07/19/19 04:03 2.0 07/19/19 04:00 105 07/19/19 04:00 98.0 102 16 124/78 (93) 98 07/19/19 00:00 111 07/19/19 00:00 98.2 102 15 109/59 (76) 98 07/18/19 21:59 125 122/63 07/18/19 21:37 132 07/18/19 21:00 Nasal Cannula 2.0 07/18/19 20:00 98.1 125 16 122/63 (82) 96 07/18/19 20:00 125 07/18/19 20:00 2.0 07/18/19 16:00 2.0 07/18/19 16:00 98.1 60 18 105/80 (88) 100 07/18/19 16:00 126 07/18/19 12:00 116 07/18/19 12:00 96.7 86 20 104/70 (81) 96 07/18/19 12:00 2.0 Intake and Output 07/18/19 07/19/19 19:00 07:00 # Voids 3 # Bowel Movements 1 Laboratory Tests 07/19/19 05:21: White Blood Count 8.9, Red Blood Count 6.24H, Hemoglobin 13.9L, Hematocrit 43.9 , Mean Corpuscular Volume 70L, Mean Corpuscular Hemoglobin 22.2L, Mean Corpuscular Hemoglobin Concent 31.6L, Red Cell Distribution Width 13.1, Platelet Count 235, Mean Platelet Volume 8.8, Neutrophils (%) (Auto) 61.6, Lymphocytes (%) (Auto) 24.6, Monocytes (%) (Auto) 11.8H, Eosinophils (%) (Auto) 1.2, Basophils (%) (Auto) 0.8, Sodium Level 148H, Potassium Level 4.2, Chloride Level 111H, Carbon Dioxide Level 28, Anion Gap 10, Blood Urea Nitrogen 34H, Creatinine 0.8, Estimat Glomerular Filtration Rate > 60, Glucose Level 144H, Calcium Level 9.9, Magnesium Level 2.3 Height (Feet): 5 Height (Inches): 7.00 Weight (Pounds): 165 General Appearance: lethargic EENT: normal ENT inspection Neck: normal alignment Cardiovascular: normal peripheral pulses, normal rate, regular rhythm Respiratory/Chest: chest wall non-tender, lungs clear, normal breath sounds Abdomen: normal bowel sounds, non tender, soft Extremities: normal inspection Edema: no edema noted Arm (L), no edema noted Arm (R), no edema noted Leg (L), no edema noted Leg (R), no edema noted Pedal (L), no edema noted Pedal (R), no edema noted Generalized Neurologic: motor weakness Skin: normal pigmentation, warm/dry Donaldo Johnson DO Jul 19, 2019 10:45
[2019-07-19 12:00] VITALS: BP 107/67
--- NOTE | 2019-07-19 12:56 | Pulmonology Progress Note ---
Assessment/Plan Assessment/Plan ASSESSMENT seizure disorder with breakthrough seizure episode acute encephalopathy on chronic mental retardation COPD Dysphagia feeding by G-tube Hypertension Diabetes mellitus Cerebral palsy PLAN OF CARE tele seizure precaution continue Keppra LFT stable despite high dose of Keppra consider neuro eval as per primary physician O2 HHN prn CXR stable aspir precautions, GT feeding BP management with BB, optimize further as needed ST resolved , likely due to seizures as per cardio BS management with SSI DVT GI prophylaxis bowel regimen supportive care transfer to [place] if ok with cardio case discussed and evaluated by supervising physician Subjective Allergies: Coded Allergies: NO KNOWN DRUG ALLERGIES (Unverified Allergy, Unknown, 07/16/19) Subjective remains afebrile, no leukocytosis no further seizures tachy resolved Objective Last 24 Hour Vital Signs Date Time Temp Pulse Resp B/P (MAP) Pulse Ox O2 Delivery O2 Flow Rate FiO2 07/19/19 12:00 93 07/19/19 12:00 2.0 07/19/19 09:14 112 124/78 07/19/19 09:00 Nasal Cannula 2.0 07/19/19 08:00 110 07/19/19 08:00 2.0 07/19/19 08:00 97.9 112 20 124/78 (93) 99 07/19/19 04:03 2.0 07/19/19 04:00 105 07/19/19 04:00 98.0 102 16 124/78 (93) 98 07/19/19 00:00 111 07/19/19 00:00 98.2 102 15 109/59 (76) 98 07/18/19 21:59 125 122/63 07/18/19 21:37 132 07/18/19 21:00 Nasal Cannula 2.0 07/18/19 20:00 98.1 125 16 122/63 (82) 96 07/18/19 20:00 125 07/18/19 20:00 2.0 07/18/19 16:00 2.0 07/18/19 16:00 98.1 60 18 105/80 (88) 100 07/18/19 16:00 126 Intake and Output 07/18/19 07/19/19 19:00 07:00 # Voids 3 # Bowel Movements 1 Objective General Appearance: no apparent distress, bedridden, chronically ill looking male in NAD Lines, tubes and drains: peripheral HEENT: normocephalic, anicteric Neck: normal inspection Respiratory/Chest: lungs clear, no respiratory distress, no accessory muscle use Cardiovascular/Chest: normal peripheral pulses, normal rate, regular rhythm, no JVD Abdomen: normal bowel sounds, non tender, soft, feeding tube/ G tube Extremities: no edema Skin Exam: warm/dry Neurologic: abnormal gait, not verbally responsive Musculoskeletal: atrophy - BLE Microbiology Date/Time Source Procedure Growth Status 07/16/19 21:15 Nasal Nares MRSA Culture - Final NO METHICILLIN RESISTANT STAPH AUREUS... Complete 07/16/19 21:15 Rectum - Final NO CARBAPENEM-RESISTANT ENTEROBACTERI... Complete 07/16/19 21:15 Rectum VRE Culture - Final NO VANCOMYCIN RESISTANT ENTEROCOCCUS ... Complete Laboratory Tests 07/19/19 05:21: White Blood Count 8.9, Red Blood Count 6.24H, Hemoglobin 13.9L, Hematocrit 43.9 , Mean Corpuscular Volume 70L, Mean Corpuscular Hemoglobin 22.2L, Mean Corpuscular Hemoglobin Concent 31.6L, Red Cell Distribution Width 13.1, Platelet Count 235, Mean Platelet Volume 8.8, Neutrophils (%) (Auto) 61.6, Lymphocytes (%) (Auto) 24.6, Monocytes (%) (Auto) 11.8H, Eosinophils (%) (Auto) 1.2, Basophils (%) (Auto) 0.8, Sodium Level 148H, Potassium Level 4.2, Chloride Level 111H, Carbon Dioxide Level 28, Anion Gap 10, Blood Urea Nitrogen 34H, Creatinine 0.8, Estimat Glomerular Filtration Rate > 60, Glucose Level 144H, Calcium Level 9.9, Magnesium Level 2.3 Current Medications Medications (Trade) Dose Ordered Sig/Monalisa Route PRN Reason Start Time Stop Time Status Last Admin Dose Admin Acetaminophen (Tylenol) 650 mg Q4H PRN ORAL fever 07/16/19 22:30 18 22:29 Dextrose (Dextrose 50%) 25 ml Q30M PRN IV Hypoglycemia 07/16/19 22:30 08/15/19 22:29 Famotidine (Pepcid) 20 mg BEDTIME ORAL 07/17/19 21:00 08/16/19 20:59 07/18/19 21:59 Finasteride (Proscar) 5 mg DAILY ORAL 07/17/19 09:00 08/16/19 08:59 07/19/19 09:14 Heparin Sodium (Porcine) (Heparin 5000 units/ml) 5,000 units EVERY 12 HOURS SUBQ 07/17/19 09:00 08/16/19 08:59 07/19/19 09:15 Insulin Aspart (NovoLOG) Q6HR SUBQ 07/19/19 12:00 08/16/19 06:29 Levetiracetam (Keppra) 2,000 mg BID GT 07/17/19 09:00 08/16/19 08:59 07/19/19 09:14 Lorazepam (Ativan 2mg/ml 1ml) 2 mg EVERY HOUR PRN IV seizures 07/16/19 22:30 07/23/19 22:29 07/17/19 03:46 Metoprolol Tartrate (Lopressor) 12.5 mg Q12HR GT 07/17/19 21:00 08/16/19 20:59 07/19/19 09:14 Morphine Sulfate (Morphine Sulfate) 1 mg EVERY 4 HOURS PRN IVP For Pain 07/16/19 22:30 07/23/19 22:29 Ondansetron HCl (Zofran) 4 mg Q6H PRN IVP Nausea & Vomiting 07/16/19 22:30 08/15/19 22:29 Polyethylene Glycol (Miralax) 17 gm HSPRN PRN ORAL Constipation 07/16/19 22:30 08/15/19 22:29 Risperidone (RisperDAL) 1 mg DAILY GT 07/17/19 09:00 08/16/19 08:59 07/19/19 09:14 Zolpidem Tartrate (Ambien) 5 mg HSPRN PRN ORAL Insomnia 07/16/19 23:00 07/23/19 22:59 Lia Desir NP Jul 19, 2019 12:56
[2019-07-19] MEDS ORDERED: NS Irrig 1000ml ONE (13:51)
--- NOTE | 2019-07-19 14:42 | Cardiology Progress Note ---
Assessment/Plan Problem List: (1) Sinus tachycardia (2) Altered level of consciousness (3) Seizure Status: stable, progressing Status Narrative No seizures noted overnight. On keppra per primary team Sinus tachycardia - ? due to intravascular vol depletion. Po intake relatively low and pt w/ prerenal azotemia Assessment/Plan Continue b blockers Trial of IV fluids followup chem panel in am Management of seizures per primary team Subjective ROS Limited/Unobtainable: Yes Subjective Cardiology - coverage for Dr. Winters Mr Leach is sedated. Objective Last 24 Hour Vital Signs Date Time Temp Pulse Resp B/P (MAP) Pulse Ox O2 Delivery O2 Flow Rate FiO2 07/19/19 12:00 96.8 96 20 107/67 (80) 99 07/19/19 12:00 93 07/19/19 12:00 2.0 07/19/19 09:14 112 124/78 07/19/19 09:00 Nasal Cannula 2.0 07/19/19 08:00 110 07/19/19 08:00 2.0 07/19/19 08:00 97.9 112 20 124/78 (93) 99 07/19/19 04:03 2.0 07/19/19 04:00 105 07/19/19 04:00 98.0 102 16 124/78 (93) 98 07/19/19 00:00 111 07/19/19 00:00 98.2 102 15 109/59 (76) 98 07/18/19 21:59 125 122/63 07/18/19 21:37 132 07/18/19 21:00 Nasal Cannula 2.0 07/18/19 20:00 98.1 125 16 122/63 (82) 96 07/18/19 20:00 125 07/18/19 20:00 2.0 07/18/19 16:00 2.0 07/18/19 16:00 98.1 60 18 105/80 (88) 100 07/18/19 16:00 126 General Appearance: WD/WN, no apparent distress EENT: PERRL/EOMI Neck: no JVD Rhythm: NSR Cardiovascular: normal rate, regular rhythm, no gallop/murmur Respiratory/Chest: lungs clear - clear anteriorly Abdomen: normal bowel sounds, non tender, soft Extremities: no swelling Intake and Output 07/18/19 07/19/19 19:00 07:00 # Voids 3 # Bowel Movements 1 Laboratory Tests Test 07/19/19 05:21 White Blood Count 8.9 K/UL (4.8-10.8) Red Blood Count 6.24 M/UL (4.70-6.10) H Hemoglobin 13.9 G/DL (14.2-18.0) L Hematocrit 43.9 % (42.0-52.0) Mean Corpuscular Volume 70 FL (80-99) L Mean Corpuscular Hemoglobin 22.2 PG (27.0-31.0) L Mean Corpuscular Hemoglobin Concent 31.6 G/DL (32.0-36.0) L Red Cell Distribution Width 13.1 % (11.6-14.8) Platelet Count 235 K/UL (150-450) Mean Platelet Volume 8.8 FL (6.5-10.1) Neutrophils (%) (Auto) 61.6 % (45.0-75.0) Lymphocytes (%) (Auto) 24.6 % (20.0-45.0) Monocytes (%) (Auto) 11.8 % (1.0-10.0) H Eosinophils (%) (Auto) 1.2 % (0.0-3.0) Basophils (%) (Auto) 0.8 % (0.0-2.0) Sodium Level 148 MMOL/L (136-145) H Potassium Level 4.2 MMOL/L (3.5-5.1) Chloride Level 111 MMOL/L (98-107) H Carbon Dioxide Level 28 MMOL/L (21-32) Anion Gap 10 mmol/L (5-15) Blood Urea Nitrogen 34 mg/dL (7-18) H Creatinine 0.8 MG/DL (0.55-1.30) Estimat Glomerular Filtration Rate > 60 mL/min (>60) Glucose Level 144 MG/DL (74-106) H Calcium Level 9.9 MG/DL (8.5-10.1) Magnesium Level 2.3 MG/DL (1.8-2.4) Microbiology Date/Time Source Procedure Growth Status 07/16/19 21:15 Nasal Nares MRSA Culture - Final NO METHICILLIN RESISTANT STAPH AUREUS... Complete 07/16/19 21:15 Rectum - Final NO CARBAPENEM-RESISTANT ENTEROBACTERI... Complete 07/16/19 21:15 Rectum VRE Culture - Final NO VANCOMYCIN RESISTANT ENTEROCOCCUS ... Complete Dari Nevarez MD Jul 19, 2019 14:42
--- NOTE | 2019-07-19 15:45 | Consultation ---
DATE OF CONSULTATION: 07/19/2019 CONSULTING PHYSICIAN: Mendel Hendrickson M.D. REFERRING PHYSICIAN: Donaldo Johnson D.O. REASON FOR CONSULTATION: 1. Dehydration. 2. Hypernatremia. HISTORY OF PRESENT ILLNESS: The patient is a 63-year-old gentleman, admitted from a long-term facility for further evaluation and care of possible shortness of breath, seizure, and tachycardia along with weakness. The patient is being admitted from [facility]. Nonverbal. In no overt distress. PAST MEDICAL HISTORY: 1. Seizure. 2. Decubitus ulcers. 3. Chronic organic brain syndrome. 4. Acute kidney injury. 5. Schizophrenia. 6. Weakness. 7. Diabetes. 8. Failure to thrive. PAST SURGICAL HISTORY: G-tube placement. ALLERGIES: None. SOCIAL HISTORY: No tobacco, alcohol, or illicit drug use. REVIEW OF SYSTEMS: Cannot obtain as the patient is nonverbal. PHYSICAL EXAMINATION: VITAL SIGNS: Blood pressure 124/78, heart rate 112, temperature 97.9, respiratory rate 20. GENERAL: The patient is awake, not otherwise in distress. HEENT: Extraocular muscles are intact. No lymphadenopathy noted. CARDIOVASCULAR: S1, S2. Tachycardic. PULMONARY: Clear to auscultation bilaterally with mild upper rhonchi. ABDOMINAL: Soft and nontender. EXTREMITIES: No edema. LABORATORY DATA: Labs dated 07/19/2019, sodium 148, creatinine 0.8, magnesium 2.3. TSH 2.1. ASSESSMENT AND PLAN: 1. Volume depletion. At this time, the patient is approximately 2 to 3 liters of free water deficit, we will replace. 2. Hypernatremia. Again, we will replace with 250 mL per G-tube every 6 hours and monitor serum sodium. 3. Tachycardia. Management per Cardiology. Let me take this opportunity to thank Dr. Donaldo Johnson. I will continue to cover Dr. Xander Lake until 07/20/2019. Mendel Hendrickson MD DR: ARACELY/LAKISHA JOB#: [id number] CC:
[2019-07-19 16:00] VITALS: BP 105/73
--- NOTE | 2019-07-19 17:59 | NUR ---
NURSE NOTES: Paged Dr. Nevarez to clarify the order of IV hydration NS 500ml @100cc/hr continuous. Awaiting for reply
--- NOTE | 2019-07-19 18:05 | NUR ---
NURSE NOTES: Dr. Nevarez called back. IV NS 500ml @100ml/hr x1 only verified.
--- NOTE | 2019-07-19 19:20 | NUR ---
HAND-OFF: Report given to Esther SORENSEN. Pt remains stable.
--- NOTE | 2019-07-19 19:30 | NUR ---
NURSE NOTES: Received report from EDU Salinas. Alert x1, and disoriented. No c/o pain and no acute distress noted. HOB elevated 30degree. Side rails x2 up for safety. Noted stage 1 to right foot. Floated heels. G-tube feeding running with GLUCERNA 1.2 @60ml/hr patent and asymptomatic, no residual. Will continue to plan of care.
[2019-07-19 20:00] VITALS: BP 113/78
[2019-07-20] VITALS: BP 100/59
[2019-07-20] MEDS: NovoLOG Insulin Flexpen SUBQ SCH ×3 (01:13→11:57)
[2019-07-20 04:00] VITALS: BP 100/68
[2019-07-20 07:00] LABS: BASOPHILS % (AUTO) 0.9 % (0.0-2.0); EOSINOPHILS % (AUTO) 1.4 % (0.0-3.0); HEMATOCRIT 44.1 % (42.0-52.0); HEMOGLOBIN 13.7 G/DL (14.2-18.0); LYMPHOCYTES % (AUTO) 26.4 % (20.0-45.0); MEAN CORPUSCULAR VOLUME 71 FL (80-99); MONOCYTES % (AUTO) 9.8 % (1.0-10.0); NEUTROPHILS % (AUTO) 61.5 % (45.0-75.0); PLATELET COUNT 236 K/UL (150-450); RED BLOOD COUNT 6.19 M/UL (4.70-6.10); RED CELL DISTRIBUTION WIDTH 13.3 % (11.6-14.8); WHITE BLOOD COUNT 8.8 K/UL (4.8-10.8)
--- NOTE | 2019-07-20 07:13 | NUR ---
HAND-OFF: Report given to EDU Olvera.
[2019-07-20 07:23] LABS: ANION GAP 9 mmol/L (5-15); BLOOD UREA NITROGEN 29 mg/dL (7-18); CALCIUM 9.2 MG/DL (8.5-10.1); CARBON DIOXIDE 27 MMOL/L (21-32); CHLORIDE 112 MMOL/L (98-107); CREATININE 0.8 MG/DL (0.55-1.30); POTASSIUM 4.1 MMOL/L (3.5-5.1); SODIUM 148 MMOL/L (136-145)
--- NOTE | 2019-07-20 07:23 | NUR ---
NURSE NOTES: Received report from EDU Santana. Patient is resting in bed, in stable condition. No s/sx of SOB, breathing is even and unlabored. Observed no presence of pain or discomfort at this time. Bed is in lowest position, brakes engaged. Call light is kept within easy reach. Will continue to monitor patient.
[2019-07-20 08:00] VITALS: BP 115/70
[2019-07-20] MEDS: Metoprolol Tartrate 12.5mg TAB GT SCH (08:35)
[2019-07-20] MEDS: levETIRAcetam 500mg/5ml Liquid GT SCH (08:35)
[2019-07-20] MEDS: Heparin 5000 units/ml inj SUBQ SCH (08:37)
--- NOTE | 2019-07-20 10:25 | General Progress Note ---
Assessment/Plan Problem List: (1) SOB (shortness of breath) ICD Codes: R06.02 - Shortness of breath SNOMED: 997748613 (2) Weak ICD Codes: R53.1 - Weakness SNOMED: 90446961 (3) OBS (organic brain syndrome) ICD Codes: F09 - Unspecified mental disorder due to known physiological condition SNOMED: 648250828 (4) Decubitus ulcer ICD Codes: L89.90 - Pressure ulcer of unspecified site, unspecified stage SNOMED: 144042698 (5) ARF (acute renal failure) ICD Codes: N17.9 - Acute kidney failure, unspecified SNOMED: 61199131 (6) Diabetes ICD Codes: E11.9 - Type 2 diabetes mellitus without complications SNOMED: 99522313 (7) FTT (failure to thrive) in adult ICD Codes: R62.7 - Adult failure to thrive SNOMED: 655189311 (8) Seizure ICD Codes: R56.9 - Seizure SNOMED: 98512790 (9) Altered level of consciousness ICD Codes: R40.4 - Transient alteration of awareness SNOMED: 1434574 Status: stable, progressing Assessment/Plan: o2 pulm tx seizure control sound care pt diet cbc bmp am dc plan Subjective Constitutional: Reports: weakness Allergies: Coded Allergies: NO KNOWN DRUG ALLERGIES (Unverified Allergy, Unknown, 07/16/19) All Systems: reviewed and negative except above Subjective o2nc sleep Objective Last 24 Hour Vital Signs Date Time Temp Pulse Resp B/P (MAP) Pulse Ox O2 Delivery O2 Flow Rate FiO2 07/20/19 08:51 Nasal Cannula 2.0 07/20/19 08:35 112 115/70 07/20/19 08:00 2.0 07/20/19 08:00 96.3 112 20 115/70 (85) 94 07/20/19 08:00 108 07/20/19 04:00 98.1 99 21 100/68 (79) 98 07/20/19 04:00 101 07/20/19 04:00 2.0 07/20/19 00:00 98.1 106 20 100/59 (73) 95 07/20/19 00:00 99 07/20/19 00:00 2.0 07/19/19 21:46 107 116/78 07/19/19 21:00 Nasal Cannula 2.0 07/19/19 20:00 98.1 110 20 113/78 (90) 99 07/19/19 20:00 2.0 07/19/19 20:00 107 07/19/19 16:00 99 07/19/19 16:00 97.5 88 20 105/73 (84) 100 07/19/19 16:00 2.0 07/19/19 12:00 96.8 96 20 107/67 (80) 99 07/19/19 12:00 93 07/19/19 12:00 2.0 Intake and Output 07/19/19 07/20/19 19:00 07:00 Intake Total 1010 ml Balance 1010 ml Free Water 350 ml Tube Feeding 660 ml # Voids 2 3 # Bowel Movements 1 Laboratory Tests 07/20/19 05:33: White Blood Count 8.8, Red Blood Count 6.19H, Hemoglobin 13.7L, Hematocrit 44.1 , Mean Corpuscular Volume 71L, Mean Corpuscular Hemoglobin 22.1L, Mean Corpuscular Hemoglobin Concent 31.1L, Red Cell Distribution Width 13.3, Platelet Count 236, Mean Platelet Volume 9.9, Neutrophils (%) (Auto) 61.5, Lymphocytes (%) (Auto) 26.4, Monocytes (%) (Auto) 9.8, Eosinophils (%) (Auto) 1.4, Basophils (%) (Auto) 0.9, Sodium Level 148H, Potassium Level 4.1, Chloride Level 112H, Carbon Dioxide Level 27, Anion Gap 9, Blood Urea Nitrogen 29H, Creatinine 0.8, Estimat Glomerular Filtration Rate > 60, Glucose Level 156H, Calcium Level 9.2 Height (Feet): 5 Height (Inches): 7.00 Weight (Pounds): 165 General Appearance: lethargic EENT: normal ENT inspection Neck: normal alignment Cardiovascular: normal peripheral pulses, normal rate, regular rhythm Respiratory/Chest: chest wall non-tender, lungs clear, normal breath sounds Abdomen: normal bowel sounds, non tender, soft Extremities: normal inspection Edema: no edema noted Arm (L), no edema noted Arm (R), no edema noted Leg (L), no edema noted Leg (R), no edema noted Pedal (L), no edema noted Pedal (R), no edema noted Generalized Neurologic: motor weakness Skin: normal pigmentation, warm/dry Donaldo Johnson DO Jul 20, 2019 10:25
--- NOTE | 2019-07-20 11:38 | NUR ---
CASE MANAGEMENT:DISCHARGE PLANNING CLILNICALS FAXED TO [facility]; [phone] F; [phone] WILL ADMIT TO RM 110-A PER TEGAN UPON DC NEURO AND CARDIO CLEARANCE PENDING DC ORDER PENDING Addendum: 07/20/19 at 1349 by MARYBEL MAO LVN LVN DC PLANNING FOLLOW UP PT TO BE DISCHARGED TO [facility] RM 114-A TRANSPORTATION ARRANGED [facility] [employer] [facility] REPRESENTATIVE ETA [id number] PM TRANSFER REPORT ENDORSED TO [facility]U CHURCH
[2019-07-20 12:00] VITALS: BP 100/63
--- NOTE | 2019-07-20 12:20 | NUR ---
NURSE NOTES: Called and left message with Fátima, for Dr. Winters's office, message regarding that per CM, Dr. Johnson is pending discharge if patient is cleared form cardiology perspective. Awaiting call back from Dr. Winters. Will continue to monitor patient.
--- NOTE | 2019-07-20 12:52 | NUR ---
NURSE NOTES: Contacted Dr. Johnson and clarified regarding discharge instructions, "if cleared by neuro and cardio." Patient is noted without a neurology consult. Dr. Johnson acknowledged and stated "Johann, please call him." Order entered and noted. Called and left message with Dr. Wills regarding neuro consult. Noted.
--- NOTE | 2019-07-20 13:08 | Nephrology Progress Note ---
Assessment/Plan Status: stable, progressing Assessment/Plan: A/P 1) Vasyl- resolved 2) Dehydration- add free water thru PEG 3) Dehydration- free water thru PEG 4) Tachycardia- mgmt per cardiology Subjective Date patient seen: Jul 20, 2019 Time patient seen: 13:06 ROS Limited/Unobtainable: Yes Allergies: Coded Allergies: NO KNOWN DRUG ALLERGIES (Unverified Allergy, Unknown, 07/16/19) Subjective Patient non verbal Objective Last 24 Hour Vital Signs Date Time Temp Pulse Resp B/P (MAP) Pulse Ox O2 Delivery O2 Flow Rate FiO2 07/20/19 12:00 2.0 07/20/19 12:00 96.8 100 20 100/63 (75) 95 07/20/19 12:00 97 07/20/19 08:51 Nasal Cannula 2.0 07/20/19 08:35 112 115/70 07/20/19 08:00 2.0 07/20/19 08:00 96.3 112 20 115/70 (85) 94 07/20/19 08:00 108 07/20/19 04:00 98.1 99 21 100/68 (79) 98 07/20/19 04:00 101 07/20/19 04:00 2.0 07/20/19 00:00 98.1 106 20 100/59 (73) 95 07/20/19 00:00 99 07/20/19 00:00 2.0 07/19/19 21:46 107 116/78 07/19/19 21:00 Nasal Cannula 2.0 07/19/19 20:00 98.1 110 20 113/78 (90) 99 07/19/19 20:00 2.0 07/19/19 20:00 107 07/19/19 16:00 99 07/19/19 16:00 97.5 88 20 105/73 (84) 100 07/19/19 16:00 2.0 Intake and Output 07/19/19 07/20/19 19:00 07:00 Intake Total 1010 ml Balance 1010 ml Free Water 350 ml Tube Feeding 660 ml # Voids 2 3 # Bowel Movements 1 Laboratory Tests 07/20/19 05:33: White Blood Count 8.8, Red Blood Count 6.19H, Hemoglobin 13.7L, Hematocrit 44.1 , Mean Corpuscular Volume 71L, Mean Corpuscular Hemoglobin 22.1L, Mean Corpuscular Hemoglobin Concent 31.1L, Red Cell Distribution Width 13.3, Platelet Count 236, Mean Platelet Volume 9.9, Neutrophils (%) (Auto) 61.5, Lymphocytes (%) (Auto) 26.4, Monocytes (%) (Auto) 9.8, Eosinophils (%) (Auto) 1.4, Basophils (%) (Auto) 0.9, Sodium Level 148H, Potassium Level 4.1, Chloride Level 112H, Carbon Dioxide Level 27, Anion Gap 9, Blood Urea Nitrogen 29H, Creatinine 0.8, Estimat Glomerular Filtration Rate > 60, Glucose Level 156H, Calcium Level 9.2 Height (Feet): 5 Height (Inches): 7.00 Weight (Pounds): 165 General Appearance: no apparent distress EENT: normal ENT inspection Neck: normal alignment Cardiovascular: normal rate, regular rhythm Respiratory/Chest: lungs clear, normal breath sounds Abdomen: non tender, soft Edema: no edema noted Arm (L), no edema noted Arm (R), no edema noted Leg (L), no edema noted Leg (R), no edema noted Pedal (L), no edema noted Pedal (R), no edema noted Generalized Mendel Hendrickson MD Jul 20, 2019 13:08
--- NOTE | 2019-07-20 13:34 | NUR ---
NURSE NOTES: Per Dr. Johnson's instructions for discharge, called and spoke with Dr. Winters regarding clearance from cardiology perspective. Dr. Winters acknowledged and informed me that patient is cleared from cardiology perspective. Order entered, noted, and carried out.
--- NOTE | 2019-07-20 13:59 | NUR ---
NURSE NOTES:WOUND CARE NOTES :Pt presented on admission with non-blanching erythema and boggy R heel extending into plantar aspect. Scattered small dry scabs noted. L heel is pink and blanchable. Non-blanching erythema without induration Sacrum. Historical scar noted across lumbar sacral region. No other skin concerns noted. Tx.Plan:Apply Moisture Barrier paste to sacrum. Cover with Optifoam drsg. Change every 3 days and prn. Apply Cavilon Skin Barrier to both heels. Cover each heel with Optifoam drsg. Change every 7 days and prn. Reposition at least every 2hours or as tolerated. Off-load heels with pillow.
--- NOTE | 2019-07-20 14:25 | NUR ---
NURSE NOTES: Called [facility] and gave report to EDU Blanco.
--- NOTE | 2019-07-20 14:43 | NUR ---
NURSE NOTES: Called [facility] and spoke with EDU Blanco. Informed RN that per ambulance personnel, patient's heart rate is HR 105 bpm, baseline HR is 90s bpm today. Has history and was admitted for sinus tachycardia. EDU Blanco acknowledged and stated okay. Noted. Ambulance personnel made aware of situation. Noted.
--- NOTE | 2019-07-20 14:50 | NUR ---
NURSE NOTES: Patient is discharged per Dr. Johnson to [facility]. Spoke with Bella RN and gave all discharge instructions. IV access removed, no active bleeding noted. Heart monitor removed and returned to dye lab technician, Box #2. ID band removed and placed in shredder. Patient left with ambulance personnel, in stable condition.
--- NOTE | 2019-07-21 10:53 | Discharge Summary ---
Discharge Summary Discharge Summary _ DATE OF ADMISSION: 07/16/2018 DATE OF DISCHARGE: 07/20/2019 DISCHARGED BY: Dr. Johnson REASON FOR ADMISSION: [] 63 years old male with past medical history of COPD, diabetes mellitus type 2 , dysphagia, feeding by G-tube, Parkinson's disease, seizure disorder, history of cerebral palsy, hypertension, was brought by ambulance due to recent seizure activity and generalized weakness. He started about 2 hours prior to arrival to ED. History was limited given patient mental status. Upon evaluation emergency department patient was placed on supplemental oxygen. Laboratory work -up revealed no leukocytosis, stable electrolytes. BUN slightly elevated 29, creatinine 1.0. Glucose 128. Patient subsequently admitted for further management. CONSULTANTS: receiving team member Dr. Winters pulmonary/critical care Dr. Gracia manager meat Dr. Dr.De Sin [facility] COURSE: Patient admitted to telemetry floor. Seizure precaution maintained. Keppra was continued. Patient was maintained on high dose of Keppra. LFT remained stable. No further seizure activity. Supplemental oxygen provided and titrated to keep pulse oximetry above 92%. Bronchodilator therapy via HHN provided as needed. No evidence of COPD exacerbation. Chest x-ray revealed no acute cardiopulmonary pathology. Venous duplex bilateral lower extremity revealed no evidence of acute DVT. Aspiration precaution maintained. G-tube feeding continued with tube feeding formula and goal rate provided as per registered occupational therapist recommendation. Patient demonstrated persistent sinus tachycardia. Casket Coverer followed. Echocardiogram revealed preserved ejection fraction of 60 to 65% no evidence of left ventricular hypertrophy. No evidence of wall motion abnormality to the extent visualized. Right ventricular systolic pressure of 14. Sinus tachycardia was possibly due to intravascular volume depletion as per cardiologic. Beta-mary carmen continued . Sinus tachycardia improved. Blood pressure was managed with beta-mary caremn. Blood sugar was managed with sliding scale of insulin. DVT and GI prophylaxis provided. Bowel regimen instituted. Supportive care provided. Implement Mechanic followed . Patient was on the IV fluids. In addition free water provided via G-tube. Renal parameters and electrolytes were closely monitored. Acute kidney injury resolved Patient clinically stabilized and was ready for transfer to senior care facility for continuation of care. FINAL DIAGNOSES: Seizure disorder with breakthrough seizure episode Acute encephalopathy on chronic mental retardation Acute kidney injury- resolved Dehydration Hypernatremia Sinus tachycardia COPD Dysphagia f, eeding by G-tube Hypertension Diabetes mellitus Cerebral palsy DISCHARGE MEDICATIONS: See Medication Reconciliation list. DISCHARGE INSTRUCTIONS: Patient was discharged to the senior care facility. Follow up with medical doctor at the facility. Lia Desir NP Jul 21, 2019 10:53
== END 2019-07-20 14:50 | DRG 100 ==
LOC: EDUNIT# 20:23 → EDBD 20:23 → EMR 20:45 → 2E 22:00 → EDBEDREQ 22:39
DX: G40.909 Epilepsy, unspecified, not intractable, without status epilepticus (principal); L89.313 Pressure ulcer of right buttock, stage 3; N17.9 Acute kidney failure, unspecified; Z43.1 Encounter for attention to gastrostomy; E87.0 Hyperosmolality and hypernatremia; G93.40 Encephalopathy, unspecified; E86.0 Dehydration; F09 Unspecified mental disorder due to known physiological condition; F20.9 Schizophrenia, unspecified; Z79.4 Long term (current) use of insulin; E11.9 Type 2 diabetes mellitus without complications; R00.0 Tachycardia, unspecified; R62.7 Adult failure to thrive; R13.10 Dysphagia, unspecified; G20 Parkinson's disease; F79 Unspecified intellectual disabilities; J44.9 Chronic obstructive pulmonary disease, unspecified; G80.9 Cerebral palsy, unspecified; I10 Essential (primary) hypertension; Z86.73 Personal history of transient ischemic attack (TIA), and cerebral infarction without residual deficits
CPT/HCPCS: 36415; 71045; 80048; 80053; 82962; 83735; 84443; 85025; 87081; 93005; 93306; 93970; 96360; 99285; J1815; J7030

== ENCOUNTER 2019-10-05 16:02 | Inpatient (IN) | payer MEDICARE, MEDICAID ==
[~2019-10-05] VITALS: Ht 177.8 cm; Wt 76.1 kg
[2019-10-05 16:19] VITALS: BP 122/90
[2019-10-05] MEDS ORDERED: Omnipaque-300 100ml vial INJ PRN (16:45)
[2019-10-05 17:51] LABS: BASOPHILS % (AUTO) 1.2 % (0.0-2.0); EOSINOPHILS % (AUTO) 3.2 % (0.0-3.0); HEMATOCRIT 47.9 % (42.0-52.0); LYMPHOCYTES % (AUTO) 23.1 % (20.0-45.0); MEAN CORPUSCULAR VOLUME 69 FL (80-99); MONOCYTES % (AUTO) 9.3 % (1.0-10.0); NEUTROPHILS % (AUTO) 63.3 % (45.0-75.0); PLATELET COUNT 324 K/UL (150-450); RED BLOOD COUNT 6.89 M/UL (4.70-6.10); RED CELL DISTRIBUTION WIDTH 14.3 % (11.6-14.8); WHITE BLOOD COUNT 9.7 K/UL (4.8-10.8)
[2019-10-05 17:55] LABS: ANION GAP 13 mmol/L (5-15); BLOOD UREA NITROGEN 29 mg/dL (7-18); CALCIUM 9.9 MG/DL (8.5-10.1); CARBON DIOXIDE 30 MMOL/L (21-32); CHLORIDE 104 MMOL/L (98-107); CREATININE 1.1 MG/DL (0.55-1.30); POTASSIUM 3.5 MMOL/L (3.5-5.1); SODIUM 147 MMOL/L (136-145)
[2019-10-05 18:01] LABS: ALANINE AMINOTRANSFERASE 24 U/L (12-78); ALBUMIN 3.6 G/DL (3.4-5.0); ALBUMIN/GLOBULIN RATIO 0.8 (1.0-2.7); ALKALINE PHOSPHATASE 106 U/L (46-116); ASPARTATE AMINO TRANSFERASE 16 U/L (15-37); BILIRUBIN,TOTAL 0.5 MG/DL (0.2-1.0)
[2019-10-05 19:15] VITALS: BP 119/72
--- NOTE | 2019-10-05 19:29 | Emergency Room Report ---
History of Present Illness General Chief Complaint: Abdominal Pain Source: Patient, EMS Present Illness HPI This patient presents from a halfway facility. Plan presents with abdominal pain and inability to have a bowel movement for the past 3 days. Allergies: Coded Allergies: NO KNOWN DRUG ALLERGIES (Unverified Allergy, Unknown, 07/16/19) Patient History Past Medical History: DM, HTN, NM, CAD, COPD, CVA/TIA, dementia, seizures, other - Parkinson's Past Surgical History: other - G-tube Social History: Denies: smoking, alcohol use, drug use Reviewed Nursing Documentation: PMH: Agreed; PSxH: Agreed Nursing Documentation-PMH Hx Cardiac Problems: Yes Hx Hypertension: Yes Hx Pacemaker: No Hx Asthma: No Hx COPD: Yes Hx Diabetes: Yes - dm2 Hx Cancer: No Hx Gastrointestinal Problems: Yes - Dysphagia, Hx Dialysis: No - BPH Hx Cerebrovascular Accident: Yes Hx Parkinson's Disease: Yes Hx Seizures: Yes Hx Epilepsy: Yes Hx Cerebral Palsy: Yes Hx Speech Problem: Yes Hx Aphasia: Yes Hx Weakness: Yes Review of Systems All Other Systems: limited Physical Exam Vital Signs Date Time Temp Pulse Resp B/P (MAP) Pulse Ox O2 Delivery O2 Flow Rate FiO2 10/05/19 16:06 98.4 114 16 124/82 (96) 95 Room Air Sp02 EP Interpretation: reviewed, normal General Appearance: no apparent distress, alert, GCS 15, non-toxic Head: normocephalic, atraumatic Eyes: bilateral eye normal inspection ENT: hearing grossly normal, normal pharynx, no angioedema Neck: normal inspection Respiratory: chest non-tender, lungs clear, normal breath sounds, no respiratory distress, no retraction, no accessory muscle use, speaking full sentences Cardiovascular #1: regular rate, rhythm, no edema Gastrointestinal: soft, no guarding, no rebound, distended, tenderness - Abd ttp diffusely Rectal: normal exam Musculoskeletal: back normal, normal range of motion, non-tender Neurologic: alert, responsive, other - At baseline per report. Psychiatric: mood/affect normal Skin: other - See RN skin exam Medical Decision Making Diagnostic Impression: Primary Impression: Constipation Additional Impression: Fecal impaction ER Course The patient had presented with severe abdominal pain and without a bowel movement for 3 days. He did have a significant bowel movement in the emergency department. It was soft. CT of the abdomen and pelvis did show findings consistent with fecal impaction and constipation. I suspect this patient will need to be properly disimpacted. The patient was not tolerant to this in the emergency department as he may need some sedation for this procedure. He is admitted for further evaluation and treatment. Laboratory Tests Test 10/05/19 17:15 White Blood Count 9.7 K/UL (4.8-10.8) Red Blood Count 6.89 M/UL (4.70-6.10) H Hemoglobin 15.0 G/DL (14.2-18.0) Hematocrit 47.9 % (42.0-52.0) Mean Corpuscular Volume 69 FL (80-99) L Mean Corpuscular Hemoglobin 21.8 PG (27.0-31.0) L Mean Corpuscular Hemoglobin Concent 31.4 G/DL (32.0-36.0) L Red Cell Distribution Width 14.3 % (11.6-14.8) Platelet Count 324 K/UL (150-450) Mean Platelet Volume 10.5 FL (6.5-10.1) H Neutrophils (%) (Auto) 63.3 % (45.0-75.0) Lymphocytes (%) (Auto) 23.1 % (20.0-45.0) Monocytes (%) (Auto) 9.3 % (1.0-10.0) Eosinophils (%) (Auto) 3.2 % (0.0-3.0) H Basophils (%) (Auto) 1.2 % (0.0-2.0) Sodium Level 147 MMOL/L (136-145) H Potassium Level 3.5 MMOL/L (3.5-5.1) Chloride Level 104 MMOL/L (98-107) Carbon Dioxide Level 30 MMOL/L (21-32) Anion Gap 13 mmol/L (5-15) Blood Urea Nitrogen 29 mg/dL (7-18) H Creatinine 1.1 MG/DL (0.55-1.30) Estimate Glomerular Filtration Rate > 60 mL/min (>60) Glucose Level 157 MG/DL (74-106) H Calcium Level 9.9 MG/DL (8.5-10.1) Total Bilirubin 0.5 MG/DL (0.2-1.0) Aspartate Amino Transferase (AST) 16 U/L (15-37) Alanine Aminotransferase (ALT) 24 U/L (12-78) Alkaline Phosphatase 106 U/L (46-116) Total Protein 8.4 G/DL (6.4-8.2) H Albumin 3.6 G/DL (3.4-5.0) Globulin 4.8 g/dL Albumin/Globulin Ratio 0.8 (1.0-2.7) L Lipase 108 U/L (73-393) CT/MRI/US Diagnostic Results CT/MRI/US Diagnostic Results : Imaging Test Ordered: CT abd/pelvis Impression CT ABDOMEN + PELVIS With Contrast: Marked colonic distention of the redundant colon. No evidence of volvulus or mass. Stool throughout the colon with the fecal impaction. Unremarkable appendix. Percutaneous G-tube. Fat-containing left inguinal hernia. Left renal cyst. Chronic appearing compression deformities in the spine. Old left femoral neck fracture. Consolidative atelectasis in the lung bases. Trace amounts of fluid in the peritoneal cavity. Last Vital Signs Date Time Temp Pulse Resp B/P (MAP) Pulse Ox O2 Delivery O2 Flow Rate FiO2 10/05/19 16:19 114 18 Room Air 10/05/19 16:19 98.0 122/90 96 Disposition: ADMITTED INPATIENT Condition: Stable Referrals: Donaldo Johnson DO (PCP) Mague Nunez DO Oct 05, 2019 19:29
--- NOTE | 2019-10-05 19:32 | Diagnostic Imaging Report ---
Clinical Indication: Abdominal distention, constipation Technique: No oral contrast utilized, per emergency room physician request IV administration nonionic contrast. Venous phase spiral acquisition obtained through the abdomen and pelvis. Multiplanar reconstructions were generated. Total dose length product 430 mGycm. CTDIvol(s) 7 mGy. Dose reduction achieved using automated exposure control Comparison: 07/27/2016 Findings: There is marked distention of the rectum by feces, rectal diameter up to 10.3 cm there is minimal wall thickening of the rectum. Considerable stool is also seen throughout the sigmoid and descending colon. The colon proximal to the splenic flexure is markedly distended with gas and to lesser extent fluid. The appendix is normal. Small bowel is nondistended. No evidence of pneumatosis. There is trace free intraperitoneal fluid over the dome of the liver. No free intraperitoneal gas There is a small left inguinal hernia that contains only fat. This is a new finding.. The stomach contains a gastrostomy tube. This appears to be well positioned. The distal esophagus is unremarkable. The duodenum is unremarkable. The gallbladder is not definitely visualized, may be compressed by the distended colon or removed in the interim. No biliary ductal dilatation. The liver, pancreas, spleen, adrenals are unremarkable. The kidneys demonstrate subcentimeter low-attenuation lesions which are too small to characterize, most likely benign simple cortical cysts. No retroperitoneal or mesenteric mass or adenopathy. No pelvic mass or adenopathy. Surgical clips are again demonstrated in the left buttock region. The bones demonstrate old left hip fracture deformity. Compression fracture deformities of L1, T10, and T11 are unchanged. The included lung bases demonstrate bilateral basilar atelectasis and possibly some consolidation on the right. Impression: Marked rectal fecal impaction. Considerable diffuse colonic distention, presumably indicates distal colonic obstruction related to such Trace free intraperitoneal fluid Gastrostomy Bilateral basilar pulmonary parenchymal atelectasis and possibly right-sided consolidation Nonvisualized gallbladder Subcentimeter low-attenuation renal lesions, too small to characterize, most likely benign simple cysts. Other findings as noted, including multiple stable old thoracic and lumbar compression fracture deformities, old healed left hip fracture deformity, small fat-containing left inguinal hernia This agrees with the preliminary interpretation provided overnight by [facility]erad[facility] service. The CT scanner at [facility] is accredited by the [employer] and the scans are performed using protocols designed to limit radiation exposure to as low as reasonably achievable to attain images of sufficient resolution adequate for diagnostic evaluation.
[2019-10-05] MEDS ORDERED: METOPROLOL TART25 MG ORAL (22:02)
[2019-10-05] MEDS ORDERED: NOVOLOG100 UNITS1 (22:02)
[2019-10-05 22:45] VITALS: BP 125/88
[2019-10-05] MEDS ORDERED: Milk of Magnesia 30ml Ud ORAL PRN (23:00)
[2019-10-05] MEDS ORDERED: Fleet's Enema 133ml RECTAL PRN (23:00)
[2019-10-05] MEDS ORDERED: Nitroglycerin Subl 0.4mg tab SL PRN (23:00)
[2019-10-05] MEDS ORDERED: Mylanta II UD 30ml ORAL PRN (23:00)
[2019-10-05] MEDS ORDERED: LORazepam 1mg tab ORAL PRN (23:00)
[2019-10-05] MEDS ORDERED: Morphine Sulfate 2mg/ml Inj(IV/IM USE ONLY) IVP PRN (23:00)
[2019-10-05] MEDS ORDERED: DiphenhydrAMINE 25mg Tab ORAL PRN (23:00)
[2019-10-05 23:30] VITALS: BP 128/80
[2019-10-05] MEDS: D5 1/2NS 1,000 ML IV SCH (23:30)
[2019-10-06 04:00] VITALS: BP 107/86
[2019-10-06 08:00] VITALS: BP 110/70
[2019-10-06] MEDS: levETIRAcetam 500mg/5ml Liquid GT SCH ×2 (09:00→17:26)
[2019-10-06] MEDS: Ascorbic Acid 500mg tab GT SCH ×2 (09:00→17:25)
[2019-10-06] MEDS: Zinc Sulfate 220mg cap ORAL SCH (09:00)
[2019-10-06] MEDS: Docusate 100mg cap ORAL SCH ×2 (09:00→21:32)
[2019-10-06] MEDS: D5 1/2NS 1,000 ML IV SCH ×2 (09:01→20:18)
[2019-10-06] MEDS: Heparin 5000 units/ml inj SUBQ SCH ×2 (09:01→21:42)
[2019-10-06 09:20] LABS: BASOPHILS % (AUTO) 0.9 % (0.0-2.0); EOSINOPHILS % (AUTO) 4.4 % (0.0-3.0); HEMATOCRIT 42.4 % (42.0-52.0); HEMOGLOBIN 13.8 G/DL (14.2-18.0); LYMPHOCYTES % (AUTO) 19.5 % (20.0-45.0); MEAN CORPUSCULAR VOLUME 70 FL (80-99); MONOCYTES % (AUTO) 8.5 % (1.0-10.0); NEUTROPHILS % (AUTO) 66.6 % (45.0-75.0); PLATELET COUNT 288 K/UL (150-450); RED CELL DISTRIBUTION WIDTH 12.9 % (11.6-14.8); WHITE BLOOD COUNT 8.7 K/UL (4.8-10.8)
[2019-10-06 10:00] LABS: ALANINE AMINOTRANSFERASE 10 U/L (12-78); ALBUMIN 3.1 G/DL (3.4-5.0); ALBUMIN/GLOBULIN RATIO 0.8 (1.0-2.7); ALKALINE PHOSPHATASE 87 U/L (46-116); ANION GAP 11 mmol/L (5-15); ASPARTATE AMINO TRANSFERASE 14 U/L (15-37); BILIRUBIN,TOTAL 0.4 MG/DL (0.2-1.0); BLOOD UREA NITROGEN 29 mg/dL (7-18); CALCIUM 8.7 MG/DL (8.5-10.1); CARBON DIOXIDE 27 MMOL/L (21-32); CHLORIDE 106 MMOL/L (98-107); CHOLESTEROL 92 MG/DL (< 200); CREATININE 0.7 MG/DL (0.55-1.30); HDL CHOLESTEROL 23 MG/DL (40-60); POTASSIUM 3.2 MMOL/L (3.5-5.1); SODIUM 144 MMOL/L (136-145); TRIGLYCERIDES 155 MG/DL (30-150)
[2019-10-06 12:00] VITALS: BP 112/68
--- NOTE | 2019-10-06 13:10 | GI Initial Consult Note ---
History of Present Illness General Date patient seen: Oct 06, 2019 Time patient seen: 13:04 Reason for Hospitalization: Abdominal Pain Referring physician: TONYA GOOD Reason for Consultation: FECAL IMPACTION Present Illness HPI [facility]. Plan presents with abdominal pain and inability to have a bowel movement for the past 3 days. GI consulted for fecal impaction. ROS limited, patient nonverbal and gastrostomy tube dependent. Abdominal pelvis CT was performed in the emergency room noted that the patient had marked rectal fecal impaction, considerable diffuse colonic distention presumably indicates distal colonic obstruction related to fecal impaction. The patient's abdomen was assessed, rigid and distended, no tenderness noted, no rebounding or guarding noted, no peritoneal signs noted. History of PEG placement back in 2013. Home Meds Reported Medications Insulin Aspart (Novolog Flexpen) 100 Unit/1 Ml Insuln.pen, for DM 10/05/19 Metoprolol Tartrate* (METOPROLOL TARTRATE*) 25 Mg Tablet, 12.5 MG ORAL EVERY 12 HOURS for HTN, TAB 10/05/19 Lacosamide (VIMPAT) 100 Mg Tablet, 100 MG GT, TAB 05/30/19 Valproate Sodium (VALPROIC ACID) 250 Mg/5 Ml Solution, 500 MG GT 05/30/19 Lacosamide (VIMPAT) 10 Mg/1 Ml Solution, 10 MG GT 11/16/18 Meropenem (MEROPENEM) 500 Mg Vial, 500 MG IV Q8HR for 4 Days, VIAL 02/06/18 Ondansetron* (ZOFRAN*) 4 Mg Tablet, 4 MG GT Q6H PRN for Nausea & Vomiting, TAB 11/10/17 Ascorbic Acid* (VITAMIN C*) 500 Mg Tablet, 500 MG GT TWICE A DAY, TAB 11/10/17 Valproate Sodium (VALPROIC ACID) 250 Mg/5 Ml Solution, 750 MG GT EVERY 12 HOURS 11/10/17 Acetaminophen* (ACETAMINOPHEN 325MG TABLET*) 325 Mg Tablet, 650 MG GT Q4H PRN for Fever/Headache/Mild Pain, TAB 11/10/17 Risperidone* (RISPERDAL*) 1 Mg Tablet, 1 MG GT DAILY, TAB 11/10/17 Magnesium Hydroxide* (MILK OF MAGNESIA*) 400 Mg/5 Ml Oral.susp, 30 ML GT, ML 11/10/17 Magnesium Hydroxide (Milk of Magnesia) 400 Mg/5 Ml Oral.susp, 30 ML GT BEDTIME, ML 11/10/17 Levetiracetam* (LEVETIRACETAM*) 100 Mg/1 Ml Solution, 2000 MG GT BID 11/10/17 Bisacodyl (DULCOLAX) 10 Mg Supp.rect, 10 MG RC DAILY PRN for Constipation, SUPP 11/10/17 Lorazepam* (LORAZEPAM*) 1 Mg Tablet, 1 MG GT EVERY 12 HOURS PRN for For Anxiety , TAB 11/10/17 Albuterol Sulfate* (ALBUTEROL SULFATE HHN*) 2.5 Mg/3 Ml Vial.neb, 3 ML INH Q4H PRN for Shortness of Breath, EA 11/10/17 Zinc Sulfate (ZINC SULFATE*) 220 Mg Capsule, 220 MG ORAL DAILY, CAP 0 Refills 07/20/17 Sennosides/Docusate Sodium (SENNA LAXATIVE TABLET) 1 Each Tablet, 2 EACH GT QHS , TAB 07/20/17 Insulin Detemir (Levemir Flextouch) 100 Unit/1 Ml Insuln.pen, 15 UNIT SQ ACBREAKFAST, EA 07/20/17 Glucagon (Glucagen) 1 Mg/1 Ml Vial, 1 MG IJ NEEDED PRN for Hypoglycemia, VIAL 07/20/17 Na Phos,M-B/Na Phos,Di-Ba* (FLEET ENEMA*) 133 Ml Enema, 133 ML RECTAL DAILY PRN for Constipation, ML 0 Refills 07/20/17 Omeprazole (OMEPRAZOLE) 20 Mg Tablet.dr, 20 MG GT DAILY, TAB 03/24/17 Multivitamin Liquid* (MULTI-DELYN*) 237 Ml Liquid, 5 ML GT DAILY, ML 03/24/17 Lacosamide (VIMPAT) 100 Mg Tablet, 100 MG GT EVERY 12 HOURS, TAB 03/24/17 Nitroglycerin (NITROGLYCERIN) 0.4 Mg Tab.subl, 0.4 MG SL q5mns x three doses PRN for chest pain, TAB 08/23/16 Heparin Sod (Porcine) (HEPARIN SODIUM*) 5 000/1 Ml Vial, 5000 UNITS SUBQ EVERY 12 HOURS, VIAL 08/23/16 Finasteride* (PROSCAR*) 5 Mg Tablet, 5 MG GT DAILY, #30 TAB 0 Refills 08/23/16 Clotrimazole* (LOTRIMIN*) 15 Gm Cream..g., 1 APPLIC TOPIC TWICE A DAY for gt site, GM 08/23/16 Famotidine (PEPCID) 20 Mg Tablet, 20 MG ORAL BEDTIME, #7 TAB 0 Refills 03/09/16 Polyethylene Glycol 3350* (MIRALAX*) 17 Gm Powd.pack, 17 GM GT DAILY PRN for Constipation, PACKET 11/21/15 Ipratropium/Albuterol Sulfate (DuoNeb 0.5-3(2.5)mg/3ml) 3 Ml Ampul.neb, 3 ML HHN Q4HR PRN for Shortness of Breath, EA 11/21/15 Docusate Sodium (DOCUSATE SODIUM) 100 Mg Tablet, 100 MG GT TWICE A DAY, #30 TAB 0 Refills 08/13/15 Metoprolol Tartrate (Metoprolol Tartrate) 25 Mg Tab, 25 MG GT EVERY 12 HOURS, TAB 08/13/15 Water For Irrigation,Sterile (WATER) 500 Ml Irrig.soln, 1000 ML IR for 2 Days 04/09/15 Ranitidine Hcl* (ZANTAC*) 150 Mg Tablet, 150 MG GT BID, TAB 04/09/15 Prochlorperazine Edisylate* (COMPAZINE*) 10 Mg/2 Ml Vial, 10 MG IVP Q6H PRN for Nausea & Vomiting, VIAL 04/09/15 Potassium Chloride (Potassium Chloride) 20 Meq/15 Ml Liqd, 40 MEQ GT BID, ML 04/09/15 Morphine Sulfate* (MORPHINE SULFATE*) 2 Mg/1 Ml Cartridge, 2 MG IVP Q4HR PRN for For Pain, EA 04/09/15 Metoprolol Tartrate* (METOPROLOL TARTRATE*) 25 Mg Tablet, 25 MG GT EVERY 12 HOURS, TAB 04/09/15 [insulin novolog] No Conflict Check 04/09/15 Dextrose 50 % In Water (DEXTROSE 50%-WATER VIAL) 50 Ml Vial, 50 ML IV PRN for Hypoglycemia, VIAL 04/09/15 Med list reviewed/reconciled: Yes Allergies: Coded Allergies: NO KNOWN DRUG ALLERGIES (Unverified Allergy, Unknown, 07/16/19) Patient History Limited by: medical condition History Provided By: Medical Record [facility] Narrative Past Medical History: DM, HTN, GA, CAD, COPD, CVA/TIA, dementia, seizures, other - Parkinson's Past Surgical History: other - G-tube Social History: Denies: smoking, alcohol use, drug use Reviewed Nursing Documentation: PMH: Agreed; PSxH: Agreed Nursing Documentation-PMH Hx Cardiac Problems: Yes Hx Hypertension: Yes Hx Pacemaker: No Hx Asthma: No Hx COPD: Yes Hx Diabetes: Yes - dm2 Hx Cancer: No Hx Gastrointestinal Problems: Yes - Dysphagia, Hx Dialysis: No - BPH Hx Cerebrovascular Accident: Yes Hx Parkinson's Disease: Yes Hx Seizures: Yes Hx Epilepsy: Yes Hx Cerebral Palsy: Yes Hx Speech Problem: Yes Hx Aphasia: Yes Hx Weakness: Yes Social History: Denies: smoking, alcohol use, drug use, other Review of Systems All Other Systems: limited Physical Exam Vital Signs Date Time Temp Pulse Resp B/P (MAP) Pulse Ox O2 Delivery O2 Flow Rate FiO2 10/05/19 16:06 98.4 114 16 124/82 (96) 95 Room Air Sp02 EP Interpretation: reviewed, normal Labs Laboratory Tests Test 10/05/19 17:15 10/06/19 08:05 White Blood Count 9.7 K/UL (4.8-10.8) 8.7 K/UL (4.8-10.8) Red Blood Count 6.89 M/UL (4.70-6.10) H 6.10 M/UL (4.70-6.10) Hemoglobin 15.0 G/DL (14.2-18.0) 13.8 G/DL (14.2-18.0) L Hematocrit 47.9 % (42.0-52.0) 42.4 % (42.0-52.0) Mean Corpuscular Volume 69 FL (80-99) L 70 FL (80-99) L Mean Corpuscular Hemoglobin 21.8 PG (27.0-31.0) L 22.6 PG (27.0-31.0) L Mean Corpuscular Hemoglobin Concent 31.4 G/DL (32.0-36.0) L 32.5 G/DL (32.0-36.0) Red Cell Distribution Width 14.3 % (11.6-14.8) 12.9 % (11.6-14.8) Platelet Count 324 K/UL (150-450) 288 K/UL (150-450) Mean Platelet Volume 10.5 FL (6.5-10.1) H 9.2 FL (6.5-10.1) Neutrophils (%) (Auto) 63.3 % (45.0-75.0) 66.6 % (45.0-75.0) Lymphocytes (%) (Auto) 23.1 % (20.0-45.0) 19.5 % (20.0-45.0) L Monocytes (%) (Auto) 9.3 % (1.0-10.0) 8.5 % (1.0-10.0) Eosinophils (%) (Auto) 3.2 % (0.0-3.0) H 4.4 % (0.0-3.0) H Basophils (%) (Auto) 1.2 % (0.0-2.0) 0.9 % (0.0-2.0) Sodium Level 147 MMOL/L (136-145) H 144 MMOL/L (136-145) Potassium Level 3.5 MMOL/L (3.5-5.1) 3.2 MMOL/L (3.5-5.1) L Chloride Level 104 MMOL/L (98-107) 106 MMOL/L (98-107) Carbon Dioxide Level 30 MMOL/L (21-32) 27 MMOL/L (21-32) Anion Gap 13 mmol/L (5-15) 11 mmol/L (5-15) Blood Urea Nitrogen 29 mg/dL (7-18) H 29 mg/dL (7-18) H Creatinine 1.1 MG/DL (0.55-1.30) 0.7 MG/DL (0.55-1.30) Estimat Glomerular Filtration Rate > 60 mL/min (>60) > 60 mL/min (>60) Glucose Level 157 MG/DL (74-106) H 142 MG/DL (74-106) H Calcium Level 9.9 MG/DL (8.5-10.1) 8.7 MG/DL (8.5-10.1) Total Bilirubin 0.5 MG/DL (0.2-1.0) 0.4 MG/DL (0.2-1.0) Aspartate Amino Transf (AST/SGOT) 16 U/L (15-37) 14 U/L (15-37) L Alanine Aminotransferase (ALT/SGPT) 24 U/L (12-78) 10 U/L (12-78) L Alkaline Phosphatase 106 U/L (46-116) 87 U/L (46-116) Total Protein 8.4 G/DL (6.4-8.2) H 7.1 G/DL (6.4-8.2) Albumin 3.6 G/DL (3.4-5.0) 3.1 G/DL (3.4-5.0) L Globulin 4.8 g/dL 4.0 g/dL Albumin/Globulin Ratio 0.8 (1.0-2.7) L 0.8 (1.0-2.7) L Lipase 108 U/L (73-393) Prothrombin Time 10.4 SEC (9.30-11.50) Prothromb Time International Ratio 1.0 (0.9-1.1) Activated Partial Thromboplast Time 29 SEC (23-33) Hemoglobin A1c 6.2 % (4.3-6.0) H Pro-B-Type Natriuretic Peptide 195 pg/mL (0-125) H Triglycerides Level 155 MG/DL (30-150) H Cholesterol Level 92 MG/DL (< 200) LDL Cholesterol 54 mg/dL (<100) HDL Cholesterol 23 MG/DL (40-60) L Cholesterol/HDL Ratio 4.0 (3.3-4.4) General Appearance: well appearing, no apparent distress, alert Head: normocephalic EENT: PERRL/EOMI, normal ENT inspection Neck: supple Respiratory: normal breath sounds, no respiratory distress Cardiovascular: normal rate Gastrointestinal: non tender, soft, normal bowel sounds, other - see HPI Rectal: deferred Genitourinary: deferred Musculoskeletal: normal inspection, back normal Neurologic: alert, responsive, normal inspection Skin: normal inspection, normal color, no rash, warm/dry, palpation normal, well hydrated Lymphatic: normal inspection, no adenopathy Current Medications Current Medications Medications (Trade) Dose Ordered Sig/Monalisa Route PRN Reason Start Time Stop Time Status Last Admin Dose Admin Acetaminophen (Tylenol) 650 mg Q4H PRN ORAL fever 10/05/19 23:00 11/04/19 22:59 Al Hydroxide/Mg Hydroxide (Mylanta II) 30 ml Q6H PRN ORAL dyspepsia 10/05/19 23:00 11/04/19 22:59 Ascorbic Acid (Vitamin C) 500 mg TWICE A DAY GT 10/06/19 09:00 11/05/19 08:59 10/06/19 09:00 Bisacodyl (Dulcolax) 10 mg HSPRN PRN RECTAL Constipation 10/05/19 23:00 11/04/19 22:59 Clotrimazole (Lotrimin) 1 applic BIDPRN PRN TOPIC rash 10/06/19 12:03 11/05/19 12:02 Dextrose (Dextrose 50%) 25 ml Q30M PRN IV Hypoglycemia 10/05/19 23:00 11/04/19 22:59 Dextrose (Dextrose 50%) 50 ml Q30M PRN IV Hypoglycemia 10/05/19 23:00 11/04/19 22:59 Dextrose/Sodium Chloride 1,000 ml @ 100 mls/hr Q10H IV 10/05/19 23:52 11/04/19 23:51 10/06/19 09:01 Diphenhydramine HCl (Benadryl) 25 mg Q6H PRN ORAL Itching/Pruritis 10/05/19 23:00 11/04/19 22:59 Docusate Sodium (Colace) 100 mg EVERY 12 HOURS ORAL 10/06/19 09:00 11/05/19 08:59 10/06/19 09:00 Famotidine (Pepcid I.v.) 20 mg Q12HR IVP 10/06/19 09:00 11/05/19 08:59 10/06/19 09:00 Finasteride (Proscar) 5 mg DAILY ORAL 10/06/19 09:00 11/05/19 08:59 10/06/19 09:00 Heparin Sodium (Porcine) (Heparin 5000 units/ml) 5,000 units EVERY 12 HOURS SUBQ 10/06/19 09:00 11/20/19 08:59 10/06/19 09:01 Iohexol (OMNIPAQUE-300 100ml) 100 ml NOW PRN INJ Radiology Procedure 10/05/19 16:45 10/07/19 16:34 Levetiracetam (Keppra) 2,000 mg BID GT 10/06/19 09:00 11/05/19 08:59 10/06/19 09:00 Lorazepam (Ativan) 1 mg Q4H PRN ORAL For Anxiety 10/05/19 23:00 10/12/19 22:59 Magnesium Hydroxide (Mom) 30 ml HSPRN PRN ORAL Constipation 10/05/19 23:00 11/04/19 22:59 Morphine Sulfate (Morphine Sulfate) 2 mg EVERY 3 HOURS PRN IVP Moderate Pain (Pain Scale 4-6) 10/05/19 23:00 10/12/19 22:59 Nitroglycerin (Ntg) 0.4 mg Q5M X 3 DOSES PRN SL Prn Chest Pain 10/05/19 23:00 11/04/19 22:59 Ondansetron HCl (Zofran) 4 mg Q6H PRN IVP Nausea & Vomiting 10/05/19 23:00 11/04/19 22:59 Risperidone (RisperDAL) 1 mg DAILY GT 10/06/19 09:00 11/20/19 08:59 10/06/19 09:00 Sodium Phosphate (Fleet's Sodium Phosl Enema) 133 ml DAILY PRN RECTAL Constipation 10/05/19 23:00 11/04/19 22:59 Temazepam (Restoril) 15 mg HSPRN PRN ORAL Insomnia 10/05/19 23:00 10/12/19 22:59 Zinc Sulfate (Zinc Sulfate) 220 mg DAILY ORAL 10/06/19 09:00 11/05/19 08:59 10/06/19 09:00 GI: Plan Problems: (1) Diabetes (2) Anemia (3) Dehydration (4) PEG (percutaneous endoscopic gastrostomy) adjustment/replacement/removal (5) Fecal impaction (6) Constipation Plan Maintain n.p.o. plus IV fluids We will treat fecal impaction with medical management, digital disimpaction if failed Mineral oil GT x1 Mineral oil enema x1 Colace 100 mg 3 times daily Lactulose 30 mg 3 times daily. Electrolyte correction GT site care daily, zinc oxide We will follow with additional recommendations on a daily basis Discussed with Dr. Light. Thank you for this patient referral, we will follow. The patient was seen and examined at bedside and all new and available data was reviewed in the patients chart. I agree with the above findings, impression and plan. (Patient seen earlier today. Signature stamp does not reflect patient encounter time.). - MD Bruna Brody AnhTorsten GAMBLE Oct 06, 2019 13:10
[2019-10-06] MEDS ORDERED: Mineral Oil 30ml ud GT PRN ×2 (13:15→13:30)
[2019-10-06] MEDS ORDERED: Mineral Oil 30ml ud GT SCH (13:16)
[2019-10-06] MEDS ORDERED: Fleet's Mineral Oil Enema RECTAL SCH (13:16)
[2019-10-06 16:00] VITALS: BP 119/59
--- NOTE | 2019-10-06 16:29 | Consultation ---
History of Present Illness General Date patient seen: Oct 06, 2019 Chief Complaint: Abdominal Pain Referring physician: TONYA GOOD Reason for Consultation: FECAL IMPACTION Present Illness HPI This is a 63 year old male that presents from a alf facility for evaluation of abdominal pain, distention, constipation, fecal retention and inability to have a bowel movement for the past 3 days. Surgery called to evaluate and assist in care for abdominal pain distention and fecal impaction. ROS limited, patient nonverbal and gastrostomy tube dependent. Abdominal pelvis CT was performed in the emergency room noted that the patient had marked rectal fecal impaction, considerable diffuse colonic distention presumably indicates distal colonic obstruction related to fecal impaction. The patient's abdomen was assessed, rigid and distended, no tenderness noted, no rebounding or guarding noted, no peritoneal signs noted. History of PEG placement back in 2013. Allergies: Coded Allergies: NO KNOWN DRUG ALLERGIES (Unverified Allergy, Unknown, 07/16/19) Medication History Scheduled Ascorbic Acid* (Vitamin C*), 500 MG GT TWICE A DAY, (Reported) Clotrimazole* (Lotrimin*), 1 APPLIC TOPIC TWICE A DAY, (Reported) Docusate Sodium (Docusate Sodium), 100 MG GT TWICE A DAY, (Reported) Famotidine (Pepcid), 20 MG ORAL BEDTIME, (Reported) Finasteride* (Proscar*), 5 MG GT DAILY, (Reported) Heparin Sod (Porcine) (Heparin Sodium*), 5,000 UNITS SUBQ EVERY 12 HOURS, ( Reported) Insulin Detemir (Levemir Flextouch), 15 UNIT SQ ACBREAKFAST, (Reported) Lacosamide (Vimpat), 100 MG GT EVERY 12 HOURS, (Reported) Levetiracetam* (Levetiracetam*), 2,000 MG GT BID, (Reported) Magnesium Hydroxide (Milk of Magnesia), 30 ML GT BEDTIME, (Reported) Meropenem (Meropenem), 500 MG IV Q8HR, (Reported) Metoprolol Tartrate (Metoprolol Tartrate), 25 MG GT EVERY 12 HOURS, (Reported) Metoprolol Tartrate* (Metoprolol Tartrate*), 25 MG GT EVERY 12 HOURS, (Reported) Metoprolol Tartrate* (Metoprolol Tartrate*), 12.5 MG ORAL EVERY 12 HOURS, ( Reported) Multivitamin Liquid* (Multi-Delyn*), 5 ML GT DAILY, (Reported) Omeprazole (Omeprazole), 20 MG GT DAILY, (Reported) Potassium Chloride (Potassium Chloride), 40 MEQ GT BID, (Reported) Ranitidine Hcl* (Zantac*), 150 MG GT BID, (Reported) Risperidone* (Risperdal*), 1 MG GT DAILY, (Reported) Sennosides/Docusate Sodium (Senna Laxative Tablet), 2 EACH GT QHS, (Reported) Valproate Sodium (Valproic Acid), 750 MG GT EVERY 12 HOURS, (Reported) Zinc Sulfate (Zinc Sulfate*), 220 MG ORAL DAILY, (Reported) Scheduled PRN Acetaminophen* (Acetaminophen 325MG Tablet*), 650 MG GT Q4H PRN for Fever/ Headache/Mild Pain, (Reported) Albuterol Sulfate* (Albuterol Sulfate Hhn*), 3 ML INH Q4H PRN for Shortness of Breath, (Reported) Bisacodyl (Dulcolax), 10 MG RC DAILY PRN for Constipation, (Reported) Dextrose 50 % In Water (Dextrose 50%-Water Vial), 50 ML IV for Hypoglycemia, ( Reported) Glucagon (Glucagen), 1 MG IJ NEEDED PRN for Hypoglycemia, (Reported) Ipratropium/Albuterol Sulfate (DuoNeb 0.5-3(2.5)mg/3ml), 3 ML HHN Q4HR PRN for Shortness of Breath, (Reported) Lorazepam* (Lorazepam*), 1 MG GT EVERY 12 HOURS PRN for For Anxiety, (Reported) Morphine Sulfate* (Morphine Sulfate*), 2 MG IVP Q4HR PRN for For Pain, (Reported ) Na Phos,M-B/Na Phos,Di-Ba* (Fleet Enema*), 133 ML RECTAL DAILY PRN for Constipation, (Reported) Nitroglycerin (Nitroglycerin), 0.4 MG SL q5mns x three doses PRN for chest pain, (Reported) Ondansetron* (Zofran*), 4 MG GT Q6H PRN for Nausea & Vomiting, (Reported) Polyethylene Glycol 3350* (Miralax*), 17 GM GT DAILY PRN for Constipation, ( Reported) Prochlorperazine Edisylate* (Compazine*), 10 MG IVP Q6H PRN for Nausea & Vomiting, (Reported) Miscellaneous Medications Insulin Aspart (Novolog Flexpen), (Reported) Lacosamide (Vimpat), 10 MG GT, (Reported) Lacosamide (Vimpat), 100 MG GT, (Reported) Magnesium Hydroxide* (Milk Of Magnesia*), 30 ML GT, (Reported) Valproate Sodium (Valproic Acid), 500 MG GT, (Reported) Water For Irrigation,Sterile (Water), 1,000 ML IR, (Reported) [insulin novolog], (Reported) Patient History Limited by: medical condition History Provided By: Medical Record, PMD Healthcare decision maker Resuscitation status Advanced Directive on File Past Medical/Surgical History Past Medical/Surgical History: (1) Severe sepsis without septic shock (2) Proteinuria (3) Seizure disorder, complex partial (4) Pneumonia (5) Hypernatremia (6) Pressure ulcer (7) Dehydration (8) Hypokalemia (9) Penile discharge (10) Pyuria (11) Hyperglycemia (12) Hyperglycemia (13) Hyperlipidemia (14) Hypernatremia (15) Hyponatremia (16) Hyponatremia (17) Respiratory failure (18) Nasal fracture (19) Hyperosmolar coma (20) Hypoxia (21) Sepsis (22) Sepsis (23) UTI (urinary tract infection) (24) Adrenal insufficiency (25) Hypotension (26) Pneumonia (27) MODS (multiple organ dysfunction syndrome) (28) UTI (lower urinary tract infection) (29) Severe sepsis (30) Heel sore (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 (53) PEG (percutaneous endoscopic gastrostomy) adjustment/replacement/removal (54) Epileptic seizure, generalized (55) Seizure disorder (56) Tachycardia (57) Seizure (58) Dehydration (59) Acute renal failure (60) Dermatitis (61) Respiratory distress (62) Failure to thrive (63) Pancytopenia (64) UTI (urinary tract infection) (65) Hypertension (66) Altered level of consciousness (67) Attention to G-tube (68) Diabetes mellitus out of control (69) Seizure disorder, partial, intractable (70) Feeding by G-tube (71) JULIO CÉSAR (acute kidney injury) (72) cerebral pulsy with advanced mental retardation (73) Decubitus ulcer (74) Diabetes (75) SOB (shortness of breath) (76) Seizure (77) Weak (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) (79) ARF (acute renal failure) (80) Altered level of consciousness (81) FTT (failure to thrive) in adult (82) Sinus tachycardia (83) Seizure (84) Altered level of consciousness (85) Uncontrolled seizures (86) Constipation (87) Dehydration (88) Anemia (89) Diabetes (90) Fecal impaction (91) PEG (percutaneous endoscopic gastrostomy) adjustment/replacement/removal Review of Systems All Other Systems: negative except mentioned in HPI ROS Narrative cannot obtain given medical condition Physical Exam General Appearance: mild distress Lines, tubes and drains: peripheral HEENT: mucous membranes moist Neck: normal inspection Respiratory/Chest: no respiratory distress, no accessory muscle use, decreased breath sounds Cardiovascular/Chest: normal rate, no gallop/murmur Abdomen: soft, hypoactive bowel sounds, decreased bowel sounds, distended, feeding tube, other Genitourinary/Rectal: duvall Extremities: inflammation, slow capillary refill Skin Exam: warm/dry Neurologic: alert Last 24 Hour Vital Signs Date Time Temp Pulse Resp B/P (MAP) Pulse Ox O2 Delivery O2 Flow Rate FiO2 10/06/19 12:00 97.5 78 20 112/68 (83) 94 10/06/19 08:30 Room Air 10/06/19 08:00 97.3 65 20 110/70 (83) 94 10/06/19 04:00 99.0 96 107/86 (93) 94 110 10/06/19 01:18 Room Air 10/05/19 23:30 98.9 106 128/80 (96) 94 10/05/19 23:00 Room Air 10/05/19 22:45 98.0 86 19 125/88 98 Room Air 10/05/19 22:45 98.0 86 19 125/88 98 Room Air 10/05/19 19:15 97.8 96 19 119/72 98 Room Air Intake and Output 10/05/19 10/06/19 19:00 07:00 Intake Total 1000 ml 1100 ml Balance 1000 ml 1100 ml IV Total 1000 ml 1100 ml # Voids 3 # Bowel Movements 2 Laboratory Tests Test 10/05/19 17:15 10/06/19 08:05 White Blood Count 9.7 K/UL (4.8-10.8) 8.7 K/UL (4.8-10.8) Red Blood Count 6.89 M/UL (4.70-6.10) H 6.10 M/UL (4.70-6.10) Hemoglobin 15.0 G/DL (14.2-18.0) 13.8 G/DL (14.2-18.0) L Hematocrit 47.9 % (42.0-52.0) 42.4 % (42.0-52.0) Mean Corpuscular Volume 69 FL (80-99) L 70 FL (80-99) L Mean Corpuscular Hemoglobin 21.8 PG (27.0-31.0) L 22.6 PG (27.0-31.0) L Mean Corpuscular Hemoglobin Concent 31.4 G/DL (32.0-36.0) L 32.5 G/DL (32.0-36.0) Red Cell Distribution Width 14.3 % (11.6-14.8) 12.9 % (11.6-14.8) Platelet Count 324 K/UL (150-450) 288 K/UL (150-450) Mean Platelet Volume 10.5 FL (6.5-10.1) H 9.2 FL (6.5-10.1) Neutrophils (%) (Auto) 63.3 % (45.0-75.0) 66.6 % (45.0-75.0) Lymphocytes (%) (Auto) 23.1 % (20.0-45.0) 19.5 % (20.0-45.0) L Monocytes (%) (Auto) 9.3 % (1.0-10.0) 8.5 % (1.0-10.0) Eosinophils (%) (Auto) 3.2 % (0.0-3.0) H 4.4 % (0.0-3.0) H Basophils (%) (Auto) 1.2 % (0.0-2.0) 0.9 % (0.0-2.0) Sodium Level 147 MMOL/L (136-145) H 144 MMOL/L (136-145) Potassium Level 3.5 MMOL/L (3.5-5.1) 3.2 MMOL/L (3.5-5.1) L Chloride Level 104 MMOL/L (98-107) 106 MMOL/L (98-107) Carbon Dioxide Level 30 MMOL/L (21-32) 27 MMOL/L (21-32) Anion Gap 13 mmol/L (5-15) 11 mmol/L (5-15) Blood Urea Nitrogen 29 mg/dL (7-18) H 29 mg/dL (7-18) H Creatinine 1.1 MG/DL (0.55-1.30) 0.7 MG/DL (0.55-1.30) Estimat Glomerular Filtration Rate > 60 mL/min (>60) > 60 mL/min (>60) Glucose Level 157 MG/DL (74-106) H 142 MG/DL (74-106) H Calcium Level 9.9 MG/DL (8.5-10.1) 8.7 MG/DL (8.5-10.1) Total Bilirubin 0.5 MG/DL (0.2-1.0) 0.4 MG/DL (0.2-1.0) Aspartate Amino Transf (AST/SGOT) 16 U/L (15-37) 14 U/L (15-37) L Alanine Aminotransferase (ALT/SGPT) 24 U/L (12-78) 10 U/L (12-78) L Alkaline Phosphatase 106 U/L (46-116) 87 U/L (46-116) Total Protein 8.4 G/DL (6.4-8.2) H 7.1 G/DL (6.4-8.2) Albumin 3.6 G/DL (3.4-5.0) 3.1 G/DL (3.4-5.0) L Globulin 4.8 g/dL 4.0 g/dL Albumin/Globulin Ratio 0.8 (1.0-2.7) L 0.8 (1.0-2.7) L Lipase 108 U/L (73-393) Prothrombin Time 10.4 SEC (9.30-11.50) Prothromb Time International Ratio 1.0 (0.9-1.1) Activated Partial Thromboplast Time 29 SEC (23-33) Hemoglobin A1c 6.2 % (4.3-6.0) H Pro-B-Type Natriuretic Peptide 195 pg/mL (0-125) H Triglycerides Level 155 MG/DL (30-150) H Cholesterol Level 92 MG/DL (< 200) LDL Cholesterol 54 mg/dL (<100) HDL Cholesterol 23 MG/DL (40-60) L Cholesterol/HDL Ratio 4.0 (3.3-4.4) Microbiology Date/Time Source Procedure Growth Status 10/05/19 22:05 Rectum Received Height (Feet): 5 Height (Inches): 10.00 Weight (Pounds): 170 Medications Current Medications Medications (Trade) Dose Ordered Sig/Monalisa Route PRN Reason Start Time Stop Time Status Last Admin Dose Admin Acetaminophen (Tylenol) 650 mg Q4H PRN ORAL fever 10/05/19 23:00 11/04/19 22:59 Al Hydroxide/Mg Hydroxide (Mylanta II) 30 ml Q6H PRN ORAL dyspepsia 10/05/19 23:00 11/04/19 22:59 Ascorbic Acid (Vitamin C) 500 mg TWICE A DAY GT 10/06/19 09:00 11/05/19 08:59 10/06/19 09:00 Bisacodyl (Dulcolax) 10 mg HSPRN PRN RECTAL Constipation 10/05/19 23:00 11/04/19 22:59 Clotrimazole (Lotrimin) 1 applic BIDPRN PRN TOPIC rash 10/06/19 12:03 11/05/19 12:02 Dextrose (Dextrose 50%) 25 ml Q30M PRN IV Hypoglycemia 10/05/19 23:00 11/04/19 22:59 Dextrose (Dextrose 50%) 50 ml Q30M PRN IV Hypoglycemia 10/05/19 23:00 11/04/19 22:59 Dextrose/Sodium Chloride 1,000 ml @ 100 mls/hr Q10H IV 10/05/19 23:52 11/04/19 23:51 10/06/19 09:01 Diphenhydramine HCl (Benadryl) 25 mg Q6H PRN ORAL Itching/Pruritis 10/05/19 23:00 11/04/19 22:59 Docusate Sodium (Colace) 100 mg EVERY 12 HOURS ORAL 10/06/19 09:00 11/05/19 08:59 10/06/19 09:00 Famotidine (Pepcid I.v.) 20 mg Q12HR IVP 10/06/19 09:00 11/05/19 08:59 10/06/19 09:00 Finasteride (Proscar) 5 mg DAILY ORAL 10/06/19 09:00 11/05/19 08:59 10/06/19 09:00 Heparin Sodium (Porcine) (Heparin 5000 units/ml) 5,000 units EVERY 12 HOURS SUBQ 10/06/19 09:00 11/20/19 08:59 10/06/19 09:01 Iohexol (OMNIPAQUE-300 100ml) 100 ml NOW PRN INJ Radiology Procedure 10/05/19 16:45 10/07/19 16:34 Lactulose (Cephulac) 30 gm THREE TIMES A DAY GT 10/06/19 18:00 11/05/19 17:59 Levetiracetam (Keppra) 2,000 mg BID GT 10/06/19 09:00 11/05/19 08:59 10/06/19 09:00 Lorazepam (Ativan) 1 mg Q4H PRN ORAL For Anxiety 10/05/19 23:00 10/12/19 22:59 Magnesium Hydroxide (Mom) 30 ml HSPRN PRN ORAL Constipation 10/05/19 23:00 11/04/19 22:59 Mineral Oil (Mineral Oil) 30 ml DAILYPRN PRN GT Constipation 10/06/19 13:30 11/05/19 13:14 Morphine Sulfate (Morphine Sulfate) 2 mg EVERY 3 HOURS PRN IVP Moderate Pain (Pain Scale 4-6) 10/05/19 23:00 10/12/19 22:59 Nitroglycerin (Ntg) 0.4 mg Q5M X 3 DOSES PRN SL Prn Chest Pain 10/05/19 23:00 11/04/19 22:59 Ondansetron HCl (Zofran) 4 mg Q6H PRN IVP Nausea & Vomiting 10/05/19 23:00 11/04/19 22:59 Potassium Chloride (K-Dur) 40 meq ONCE GT 10/06/19 16:15 10/06/19 18:00 Risperidone (RisperDAL) 1 mg DAILY GT 10/06/19 09:00 11/20/19 08:59 10/06/19 09:00 Sodium Phosphate (Fleet's Sodium Phosl Enema) 133 ml DAILY PRN RECTAL Constipation 10/05/19 23:00 11/04/19 22:59 10/06/19 14:42 Temazepam (Restoril) 15 mg HSPRN PRN ORAL Insomnia 10/05/19 23:00 10/12/19 22:59 Zinc Oxide (Zinc Oxide) 1 applic DAILY TOPIC 10/07/19 09:00 11/06/19 08:59 Zinc Sulfate (Zinc Sulfate) 220 mg DAILY ORAL 10/06/19 09:00 11/05/19 08:59 10/06/19 09:00 Assessment/Plan Problem List: (1) Abdominal distention Assessment & Plan: There is marked distention of the rectum by feces, rectal diameter up to 10.3 cm there is minimal wall thickening of the rectum. Considerable stool is also seen throughout the sigmoid and descending colon. The colon proximal to the splenic flexure is markedly distended with gas and to lesser extent fluid. The appendix is normal. Small bowel is nondistended. No evidence of pneumatosis. There is trace free intraperitoneal fluid over the dome of the liver. No free intraperitoneal gas There is a small left inguinal hernia that contains only fat. This is a new finding.. The stomach contains a gastrostomy tube. This appears to be well positioned. The distal esophagus is unremarkable. The duodenum is unremarkable. The gallbladder is not definitely visualized, may be compressed by the distended colon or removed in the interim. No biliary ductal dilatation. The liver, pancreas, spleen, adrenals are unremarkable. The kidneys demonstrate subcentimeter low-attenuation lesions which are too small to characterize, most likely benign simple cortical cysts. No retroperitoneal or mesenteric mass or adenopathy. No pelvic mass or adenopathy. Surgical clips are again demonstrated in the left buttock region. The bones demonstrate old left hip fracture deformity. Compression fracture deformities of L1, T10, and T11 are unchanged. The included lung bases demonstrate bilateral basilar atelectasis and possibly some consolidation on the right. Impression: Marked rectal fecal impaction. Considerable diffuse colonic distention, presumably indicates distal colonic obstruction related to such Trace free intraperitoneal fluid Gastrostomy Bilateral basilar pulmonary parenchymal atelectasis and possibly right-sided consolidation Nonvisualized gallbladder Subcentimeter low-attenuation renal lesions, too small to characterize, most likely benign simple cysts. ICD Codes: R14.0 - Abdominal distension (gaseous) SNOMED: 52113060 (2) Constipation Assessment & Plan: as per GI Mineral oil GT x1 Mineral oil enema x1 Colace 100 mg 3 times daily Lactulose 30 mg 3 times daily. Electrolyte correction GT site care daily, zinc oxide ICD Codes: K59.00 - Constipation, unspecified SNOMED: 45237858 (3) Fecal impaction Assessment & Plan: possible manual disimpaction if necessary ICD Codes: K56.41 - Fecal impaction SNOMED: 22847100 (4) Decubitus ulcer ICD Codes: L89.90 - Pressure ulcer of unspecified site, unspecified stage SNOMED: 804629640 (5) Feeding by G-tube Assessment & Plan: DAILY ESTIMATED NEEDS: Needs based on DM, WOUND (71kg) 25-30 kcals/kg 4898-9503 total kcals 1.25-1.5 g protein/kg 88-106 g total protein 25-30 mL/kg 0234-7791 total fluid mLs NUTRITION DIAGNOSIS: Swallowing difficulty R/T dysphagia, hx CVA as evidenced by pt PEG dependent, NPO at this time. CURRENT TF:NPO ENTERAL NUTRITION RECOMMENDATIONS: Glucerna 1.2 @ 65ml/hr x 24 hrs to provide 1560ml, 1872kcal, 94g prot, 1256ml free water * When medically appropriate, initiate Glucerna 1.2 @ 35ml/hr x 6 hrs -> advance 10ml q 4-6 hrs as tolerated to goal rate * HOB>30 degrees * Water flush of 120ml q 4 hrs ADDITIONAL RECOMMENDATIONS: 1) Calibrated bed scale for accurate wts -> per SNF: HT=68", BB=319qgv (09/28/19) 2) Daily bowel regimen 3) F/up w/ WC eval -> add Rashid 1ptk BID for skin integrity -> TF rec @ goal will provide 100% RDI 4) Rec adding NISS: H/o DM w/ A1C 6.2. ICD Codes: Z93.1 - Feeding by G-tube SNOMED: 927763727 Ziyad Bolaños Oct 06, 2019 16:28
[2019-10-06] MEDS: Lactulose 20gm/30ml UDC GT SCH (17:25)
[2019-10-06 20:00] VITALS: BP 111/94
--- NOTE | 2019-10-06 21:45 | History and Physical Report ---
DATE OF ADMISSION: 10/05/2019 CONSULTANTS: 1. Ziyad Bolaños M.D. 2. Leonides Light M.D. CHIEF COMPLAINT: Fecal impaction. BRIEF HISTORY: This is a 63-year-old male, who was from [facility], presented with the above-mentioned diagnoses, admitted to medical floor for further treatment. Currently, calm, sleeping in bed, and nonverbal. REVIEW OF SYSTEMS: Unavailable. PAST MEDICAL HISTORY: Seizure, gastroesophageal reflux disease, OBS, encephalopathy, and failure to thrive. PAST SURGICAL HISTORY: G-tube. MEDICATIONS: Include 01:03 mineral oil, clotrimazole, heparin, famotidine, ascorbic acid, finasteride, levetiracetam, and risperidone. ALLERGIES: Denies. SOCIAL HISTORY: Unable to obtain secondary to his condition. PHYSICAL EXAMINATION: GENERAL: Lethargic in bed, nonverbal. VITAL SIGNS: Temperature is 97 degrees, pulse 78, respirations 20, and blood pressure 112/68. CARDIOVASCULAR: No murmur. LUNGS: Poor air exchange. ABDOMEN: Bowel sounds distant. EXTREMITIES: Show no cyanosis, clubbing, or edema. NEUROLOGIC: The patient is flaccid in bed, not following directions. LABORATORY AND DIAGNOSTIC DATA: Labs at this time show CBC, hemoglobin 13.8, otherwise CBC is normal. BMP showed potassium 3.2, BUN 29, otherwise glucose 142. BNP is 195. Albumin 3.1. INR is 1.0. PTT 29. ASSESSMENT: 1. Fecal impaction. 2. Seizure. 3. Gastroesophageal reflux disease. 4. Malnutrition. 5. OBS. 6. Encephalitis. PLAN: 1. Resume home medications. 2. OT and PT dietary evaluation. 3. CBC and BMP in the morning. 4. Seizure control. 5. Laxatives as needed. 6. We will continue to follow this patient. Donaldo Johnson D.O. DR: RAFAEL JOB#: [id number] CC:
[2019-10-07] VITALS: BP 112/71
[2019-10-07 04:00] VITALS: BP 119/79
[2019-10-07] MEDS: D5 1/2NS 1,000 ML IV SCH ×2 (05:26→16:08)
[2019-10-07 07:12] LABS: EOSINOPHILS % (AUTO) 5.4 % (0.0-3.0); HEMATOCRIT 39.7 % (42.0-52.0); HEMOGLOBIN 12.6 G/DL (14.2-18.0); LYMPHOCYTES % (AUTO) 27.9 % (20.0-45.0); MEAN CORPUSCULAR VOLUME 70 FL (80-99); MONOCYTES % (AUTO) 8.9 % (1.0-10.0); NEUTROPHILS % (AUTO) 56.9 % (45.0-75.0); PLATELET COUNT 256 K/UL (150-450); RED BLOOD COUNT 5.67 M/UL (4.70-6.10); RED CELL DISTRIBUTION WIDTH 12.9 % (11.6-14.8); WHITE BLOOD COUNT 7.4 K/UL (4.8-10.8)
[2019-10-07 07:43] LABS: ANION GAP 11 mmol/L (5-15); BLOOD UREA NITROGEN 19 mg/dL (7-18); CALCIUM 8.2 MG/DL (8.5-10.1); CARBON DIOXIDE 27 MMOL/L (21-32); CHLORIDE 109 MMOL/L (98-107); CREATININE 0.7 MG/DL (0.55-1.30); PHOSPHORUS 1.9 MG/DL (2.5-4.9); POTASSIUM 3.3 MMOL/L (3.5-5.1); SODIUM 146 MMOL/L (136-145)
[2019-10-07 08:00] VITALS: BP 110/76
[2019-10-07] MEDS: Heparin 5000 units/ml inj SUBQ SCH ×2 (08:38→21:14)
[2019-10-07] MEDS: Docusate 100mg cap ORAL SCH ×2 (08:39→21:00)
[2019-10-07] MEDS: Ascorbic Acid 500mg tab GT SCH ×2 (08:39→18:30)
[2019-10-07] MEDS: Lactulose 20gm/30ml UDC GT SCH ×3 (08:39→18:29)
[2019-10-07] MEDS: Zinc Sulfate 220mg cap ORAL SCH (08:39)
[2019-10-07] MEDS: levETIRAcetam 500mg/5ml Liquid GT SCH ×2 (08:40→18:30)
[2019-10-07] MEDS: Zinc Oxide Oint 2oz TOPIC SCH (09:23)
--- NOTE | 2019-10-07 10:27 | General Progress Note ---
Assessment/Plan Assessment/Plan: GI: Plan Problems: (1) Diabetes (2) Anemia (3) Dehydration (4) PEG (percutaneous endoscopic gastrostomy) adjustment/replacement/removal (5) Fecal impaction (6) Constipation Plan Colace 100 mg 3 times daily Lactulose 30 mg 3 times daily. Electrolyte correction GT site care daily, zinc oxide had 2 bm start GTF fu labs We will follow with additional recommendations on a daily basis Subjective ROS Limited/Unobtainable: No Constitutional: Reports: no symptoms Allergies: Coded Allergies: NO KNOWN DRUG ALLERGIES (Unverified Allergy, Unknown, 07/16/19) Objective Last 24 Hour Vital Signs Date Time Temp Pulse Resp B/P (MAP) Pulse Ox O2 Delivery O2 Flow Rate FiO2 10/07/19 04:00 97.0 96 20 119/79 (92) 96 10/07/19 00:00 97.2 100 20 112/71 (85) 93 10/06/19 21:04 101 94 10/06/19 21:00 Room Air 10/06/19 20:00 98.1 107 22 111/94 (100) 96 10/06/19 16:00 97.0 70 20 119/59 (79) 98 10/06/19 12:00 97.5 78 20 112/68 (83) 94 Intake and Output 10/06/19 10/07/19 19:00 07:00 Intake Total 1550 ml 1000 ml Output Total 600 ml Balance 950 ml 1000 ml Intake Free Water 350 ml IV Total 1200 ml 1000 ml Output Urine Total 600 ml # Bowel Movements 6 3 Laboratory Tests 10/07/19 05:37: White Blood Count 7.4, Red Blood Count 5.67, Hemoglobin 12.6L, Hematocrit 39.7L , Mean Corpuscular Volume 70L, Mean Corpuscular Hemoglobin 22.1L, Mean Corpuscular Hemoglobin Concent 31.6L, Red Cell Distribution Width 12.9, Platelet Count 256, Mean Platelet Volume 8.3, Neutrophils (%) (Auto) 56.9, Lymphocytes (%) (Auto) 27.9, Monocytes (%) (Auto) 8.9, Eosinophils (%) (Auto) 5.4H, Basophils (%) (Auto) 1.0, Sodium Level 146H, Potassium Level 3.3L, Chloride Level 109H, Carbon Dioxide Level 27, Anion Gap 11, Blood Urea Nitrogen 19H, Creatinine 0.7, Estimat Glomerular Filtration Rate > 60, Glucose Level 143H , Calcium Level 8.2L, Phosphorus Level 1.9L, Magnesium Level 2.7H Height (Feet): 5 Height (Inches): 10.00 Weight (Pounds): 167 General Appearance: lethargic EENT: normal ENT inspection Neck: supple Cardiovascular: normal rate Respiratory/Chest: decreased breath sounds Abdomen: normal bowel sounds, non tender, soft Extremities: non-tender Leonides Light MD Oct 07, 2019 10:27
[2019-10-07 12:00] VITALS: BP 110/70
--- NOTE | 2019-10-07 13:58 | General Progress Note ---
Assessment/Plan Problem List: (1) Fecal impaction ICD Codes: K56.41 - Fecal impaction SNOMED: 82445588 (2) Seizure ICD Codes: R56.9 - Unspecified convulsions SNOMED: 76037804 (3) GERD (gastroesophageal reflux disease) ICD Codes: K21.9 - Gastro-esophageal reflux disease without esophagitis SNOMED: 008946897 (4) Malnutrition ICD Codes: E46 - Unspecified protein-calorie malnutrition SNOMED: 51859550 (5) OBS (organic brain syndrome) ICD Codes: F09 - Unspecified mental disorder due to known physiological condition SNOMED: 467828853 (6) Failure to thrive SNOMED: 78418702 (7) Constipation ICD Codes: K59.00 - Constipation, unspecified SNOMED: 45830304 Status: stable, progressing Assessment/Plan: pt diet gi sx f/u cbc bmp am Subjective Constitutional: Reports: weakness Allergies: Coded Allergies: NO KNOWN DRUG ALLERGIES (Unverified Allergy, Unknown, 07/16/19) All Systems: reviewed and negative except above Subjective sleepy calm in bed Objective Last 24 Hour Vital Signs Date Time Temp Pulse Resp B/P (MAP) Pulse Ox O2 Delivery O2 Flow Rate FiO2 10/07/19 12:00 96.4 95 18 110/70 (83) 96 10/07/19 09:00 Room Air 10/07/19 08:00 96.3 80 18 110/76 (87) 98 10/07/19 04:00 97.0 96 20 119/79 (92) 96 10/07/19 00:00 97.2 100 20 112/71 (85) 93 10/06/19 21:04 101 94 10/06/19 21:00 Room Air 10/06/19 20:00 98.1 107 22 111/94 (100) 96 10/06/19 16:00 97.0 70 20 119/59 (79) 98 Intake and Output 10/06/19 10/07/19 19:00 07:00 Intake Total 1550 ml 1000 ml Output Total 600 ml Balance 950 ml 1000 ml Intake Free Water 350 ml IV Total 1200 ml 1000 ml Output Urine Total 600 ml # Bowel Movements 6 3 Laboratory Tests 10/07/19 05:37: White Blood Count 7.4, Red Blood Count 5.67, Hemoglobin 12.6L, Hematocrit 39.7L , Mean Corpuscular Volume 70L, Mean Corpuscular Hemoglobin 22.1L, Mean Corpuscular Hemoglobin Concent 31.6L, Red Cell Distribution Width 12.9, Platelet Count 256, Mean Platelet Volume 8.3, Neutrophils (%) (Auto) 56.9, Lymphocytes (%) (Auto) 27.9, Monocytes (%) (Auto) 8.9, Eosinophils (%) (Auto) 5.4H, Basophils (%) (Auto) 1.0, Sodium Level 146H, Potassium Level 3.3L, Chloride Level 109H, Carbon Dioxide Level 27, Anion Gap 11, Blood Urea Nitrogen 19H, Creatinine 0.7, Estimat Glomerular Filtration Rate > 60, Glucose Level 143H , Calcium Level 8.2L, Phosphorus Level 1.9L, Magnesium Level 2.7H Height (Feet): 5 Height (Inches): 10.00 Weight (Pounds): 167 General Appearance: lethargic EENT: normal ENT inspection Neck: normal alignment Cardiovascular: normal peripheral pulses, normal rate, regular rhythm Respiratory/Chest: chest wall non-tender, lungs clear, normal breath sounds Abdomen: normal bowel sounds, non tender, soft Extremities: normal inspection Edema: no edema noted Arm (L), no edema noted Arm (R), no edema noted Leg (L), no edema noted Leg (R), no edema noted Pedal (L), no edema noted Pedal (R), no edema noted Generalized Neurologic: motor weakness Skin: normal pigmentation, warm/dry Donaldo Johnson DO Oct 07, 2019 13:58
--- NOTE | 2019-10-07 15:09 | Surgery Progress Note ---
Surgery Progress Note Subjective Additional Comments no acute events more comfortable today Objective Last 24 Hour Vital Signs Date Time Temp Pulse Resp B/P (MAP) Pulse Ox O2 Delivery O2 Flow Rate FiO2 10/07/19 12:00 96.4 95 18 110/70 (83) 96 10/07/19 09:00 Room Air 10/07/19 08:00 96.3 80 18 110/76 (87) 98 10/07/19 04:00 97.0 96 20 119/79 (92) 96 10/07/19 00:00 97.2 100 20 112/71 (85) 93 10/06/19 21:04 101 94 10/06/19 21:00 Room Air 10/06/19 20:00 98.1 107 22 111/94 (100) 96 10/06/19 16:00 97.0 70 20 119/59 (79) 98 I&O Intake and Output 10/06/19 10/07/19 19:00 07:00 Intake Total 1550 ml 1000 ml Output Total 600 ml Balance 950 ml 1000 ml Intake Free Water 350 ml IV Total 1200 ml 1000 ml Output Urine Total 600 ml # Bowel Movements 6 3 Dressing: dry Wound: clean Cardiovascular: RSR Abdomen: soft, distended, non-tender, decreased bowel sounds Extremities: no tenderness, no cyanosis Laboratory Tests Test 10/07/19 05:37 White Blood Count 7.4 K/UL (4.8-10.8) Red Blood Count 5.67 M/UL (4.70-6.10) Hemoglobin 12.6 G/DL (14.2-18.0) L Hematocrit 39.7 % (42.0-52.0) L Mean Corpuscular Volume 70 FL (80-99) L Mean Corpuscular Hemoglobin 22.1 PG (27.0-31.0) L Mean Corpuscular Hemoglobin Concent 31.6 G/DL (32.0-36.0) L Red Cell Distribution Width 12.9 % (11.6-14.8) Platelet Count 256 K/UL (150-450) Mean Platelet Volume 8.3 FL (6.5-10.1) Neutrophils (%) (Auto) 56.9 % (45.0-75.0) Lymphocytes (%) (Auto) 27.9 % (20.0-45.0) Monocytes (%) (Auto) 8.9 % (1.0-10.0) Eosinophils (%) (Auto) 5.4 % (0.0-3.0) H Basophils (%) (Auto) 1.0 % (0.0-2.0) Sodium Level 146 MMOL/L (136-145) H Potassium Level 3.3 MMOL/L (3.5-5.1) L Chloride Level 109 MMOL/L (98-107) H Carbon Dioxide Level 27 MMOL/L (21-32) Anion Gap 11 mmol/L (5-15) Blood Urea Nitrogen 19 mg/dL (7-18) H Creatinine 0.7 MG/DL (0.55-1.30) Estimat Glomerular Filtration Rate > 60 mL/min (>60) Glucose Level 143 MG/DL (74-106) H Calcium Level 8.2 MG/DL (8.5-10.1) L Phosphorus Level 1.9 MG/DL (2.5-4.9) L Magnesium Level 2.7 MG/DL (1.8-2.4) H Plan Problems: (1) Abdominal distention Assessment & Plan: There is marked distention of the rectum by feces, rectal diameter up to 10.3 cm there is minimal wall thickening of the rectum. Considerable stool is also seen throughout the sigmoid and descending colon. The colon proximal to the splenic flexure is markedly distended with gas and to lesser extent fluid. The appendix is normal. Small bowel is nondistended. No evidence of pneumatosis. There is trace free intraperitoneal fluid over the dome of the liver. No free intraperitoneal gas There is a small left inguinal hernia that contains only fat. This is a new finding.. The stomach contains a gastrostomy tube. This appears to be well positioned. The distal esophagus is unremarkable. The duodenum is unremarkable. The gallbladder is not definitely visualized, may be compressed by the distended colon or removed in the interim. No biliary ductal dilatation. The liver, pancreas, spleen, adrenals are unremarkable. The kidneys demonstrate subcentimeter low-attenuation lesions which are too small to characterize, most likely benign simple cortical cysts. No retroperitoneal or mesenteric mass or adenopathy. No pelvic mass or adenopathy. Surgical clips are again demonstrated in the left buttock region. The bones demonstrate old left hip fracture deformity. Compression fracture deformities of L1, T10, and T11 are unchanged. The included lung bases demonstrate bilateral basilar atelectasis and possibly some consolidation on the right. Impression: Marked rectal fecal impaction. Considerable diffuse colonic distention, presumably indicates distal colonic obstruction related to such Trace free intraperitoneal fluid Gastrostomy Bilateral basilar pulmonary parenchymal atelectasis and possibly right-sided consolidation Nonvisualized gallbladder Subcentimeter low-attenuation renal lesions, too small to characterize, most likely benign simple cysts. (2) Constipation Assessment & Plan: as per GI Mineral oil GT x1 Mineral oil enema x1 Colace 100 mg 3 times daily Lactulose 30 mg 3 times daily. Electrolyte correction GT site care daily, zinc oxide resume tube feeds (3) Fecal impaction Assessment & Plan: possible manual disimpaction if necessary (4) Decubitus ulcer (5) Feeding by G-tube Assessment & Plan: DAILY ESTIMATED NEEDS: Needs based on DM, WOUND (71kg) 25-30 kcals/kg 2339-7547 total kcals 1.25-1.5 g protein/kg 88-106 g total protein 25-30 mL/kg 7174-7567 total fluid mLs NUTRITION DIAGNOSIS: Swallowing difficulty R/T dysphagia, hx CVA as evidenced by pt PEG dependent, NPO at this time. CURRENT TF:NPO ENTERAL NUTRITION RECOMMENDATIONS: Glucerna 1.2 @ 65ml/hr x 24 hrs to provide 1560ml, 1872kcal, 94g prot, 1256ml free water * When medically appropriate, initiate Glucerna 1.2 @ 35ml/hr x 6 hrs -> advance 10ml q 4-6 hrs as tolerated to goal rate * HOB>30 degrees * Water flush of 120ml q 4 hrs ADDITIONAL RECOMMENDATIONS: 1) Calibrated bed scale for accurate wts -> per SNF: HT=68", [id number] (09/28/19) 2) Daily bowel regimen 3) F/up w/ WC eval -> add Rashid 1ptk BID for skin integrity -> TF rec @ goal will provide 100% RDI 4) Rec adding NISS: H/o DM w/ A1C 6.2. Ziyad Bolaños Oct 07, 2019 15:09
[2019-10-07 16:00] VITALS: BP 118/59
[2019-10-07 20:00] VITALS: BP 111/68
[2019-10-08] VITALS (7 sets, daily range): BP systolic 112–127; BP diastolic 62–72
[2019-10-08] MEDS: D5 1/2NS 1,000 ML IV SCH ×3 (02:28→20:23)
[2019-10-08 06:36] LABS: BASOPHILS % (AUTO) 0.9 % (0.0-2.0); EOSINOPHILS % (AUTO) 6.6 % (0.0-3.0); HEMATOCRIT 38.8 % (42.0-52.0); HEMOGLOBIN 12.3 G/DL (14.2-18.0); LYMPHOCYTES % (AUTO) 20.8 % (20.0-45.0); MEAN CORPUSCULAR VOLUME 70 FL (80-99); MONOCYTES % (AUTO) 7.1 % (1.0-10.0); NEUTROPHILS % (AUTO) 64.6 % (45.0-75.0); PLATELET COUNT 266 K/UL (150-450); RED BLOOD COUNT 5.54 M/UL (4.70-6.10); RED CELL DISTRIBUTION WIDTH 12.8 % (11.6-14.8); WHITE BLOOD COUNT 6.5 K/UL (4.8-10.8)
[2019-10-08 07:06] LABS: ALANINE AMINOTRANSFERASE 18 U/L (12-78); ALBUMIN 2.6 G/DL (3.4-5.0); ALBUMIN/GLOBULIN RATIO 0.7 (1.0-2.7); ALKALINE PHOSPHATASE 87 U/L (46-116); ANION GAP 14 mmol/L (5-15); ASPARTATE AMINO TRANSFERASE 17 U/L (15-37); BILIRUBIN,TOTAL 0.2 MG/DL (0.2-1.0); BLOOD UREA NITROGEN 9 mg/dL (7-18); CARBON DIOXIDE 19 MMOL/L (21-32); CHLORIDE 109 MMOL/L (98-107); CREATININE 0.6 MG/DL (0.55-1.30); POTASSIUM 2.8 MMOL/L (3.5-5.1); SODIUM 142 MMOL/L (136-145)
[2019-10-08] MEDS: levETIRAcetam 500mg/5ml Liquid GT SCH ×2 (08:47→18:43)
[2019-10-08] MEDS: Zinc Sulfate 220mg cap ORAL SCH (08:48)
[2019-10-08] MEDS: Ascorbic Acid 500mg tab GT SCH ×2 (08:48→18:44)
[2019-10-08] MEDS: Heparin 5000 units/ml inj SUBQ SCH ×2 (08:52→20:24)
[2019-10-08] MEDS: Docusate 100mg cap ORAL SCH ×2 (09:00→20:23)
--- NOTE | 2019-10-08 11:47 | GI Progress Note ---
Assessment/Plan Problems: (1) Fecal impaction ICD Codes: K56.41 - Fecal impaction SNOMED: 98059736 (2) Failure to thrive SNOMED: 43705803 (3) Abdominal distention ICD Codes: R14.0 - Abdominal distension (gaseous) SNOMED: 67840799 (4) Malnutrition ICD Codes: E46 - Unspecified protein-calorie malnutrition SNOMED: 65409188 (5) GERD (gastroesophageal reflux disease) ICD Codes: K21.9 - Gastro-esophageal reflux disease without esophagitis SNOMED: 130897849 Status: doing well, stable Status Narrative Discussed with Dr. Light. Assessment/Plan Colace 100 mg 3 times daily titrate bowel regime Electrolyte correction GT site care daily, zinc oxide start GTF, tolerating fu labs We will follow with additional recommendations on a daily basis The patient was seen and examined at bedside and all new and available data was reviewed in the patients chart. I agree with the above findings, impression and plan. (Patient seen earlier today. Signature stamp does not reflect patient encounter time.). - Leonides Light MD Subjective Gastrointestinal/Abdominal: Reports: no symptoms Objective Last 24 Hour Vital Signs Date Time Temp Pulse Resp B/P (MAP) Pulse Ox O2 Delivery O2 Flow Rate FiO2 10/08/19 09:00 Room Air 10/08/19 08:00 98.6 85 19 112/71 (85) 96 10/08/19 04:00 98.2 86 18 124/71 (88) 96 10/08/19 00:00 98.0 88 17 118/62 (80) 96 10/07/19 21:00 Room Air 10/07/19 20:00 97.5 93 17 111/68 (82) 96 10/07/19 16:00 97.8 79 18 118/59 (78) 96 10/07/19 12:00 96.4 95 18 110/70 (83) 96 Intake and Output 10/07/19 10/08/19 19:00 07:00 Intake Total 1310 ml 1960 ml Balance 1310 ml 1960 ml Intake Free Water 200 ml IV Total 1100 ml 1100 ml Tube Feeding 210 ml 660 ml # Bowel Movements 3 8 Laboratory Tests Test 10/08/19 05:25 White Blood Count 6.5 K/UL (4.8-10.8) Red Blood Count 5.54 M/UL (4.70-6.10) Hemoglobin 12.3 G/DL (14.2-18.0) L Hematocrit 38.8 % (42.0-52.0) L Mean Corpuscular Volume 70 FL (80-99) L Mean Corpuscular Hemoglobin 22.3 PG (27.0-31.0) L Mean Corpuscular Hemoglobin Concent 31.8 G/DL (32.0-36.0) L Red Cell Distribution Width 12.8 % (11.6-14.8) Platelet Count 266 K/UL (150-450) Mean Platelet Volume 9.1 FL (6.5-10.1) Neutrophils (%) (Auto) 64.6 % (45.0-75.0) Lymphocytes (%) (Auto) 20.8 % (20.0-45.0) Monocytes (%) (Auto) 7.1 % (1.0-10.0) Eosinophils (%) (Auto) 6.6 % (0.0-3.0) H Basophils (%) (Auto) 0.9 % (0.0-2.0) Sodium Level 142 MMOL/L (136-145) Potassium Level 2.8 MMOL/L (3.5-5.1) L Chloride Level 109 MMOL/L (98-107) H Carbon Dioxide Level 19 MMOL/L (21-32) L Anion Gap 14 mmol/L (5-15) Blood Urea Nitrogen 9 mg/dL (7-18) Creatinine 0.6 MG/DL (0.55-1.30) Estimat Glomerular Filtration Rate > 60 mL/min (>60) Glucose Level 126 MG/DL (74-106) H Calcium Level 8.0 MG/DL (8.5-10.1) L Total Bilirubin 0.2 MG/DL (0.2-1.0) Aspartate Amino Transf (AST/SGOT) 17 U/L (15-37) Alanine Aminotransferase (ALT/SGPT) 18 U/L (12-78) Alkaline Phosphatase 87 U/L (46-116) Total Protein 6.2 G/DL (6.4-8.2) L Albumin 2.6 G/DL (3.4-5.0) L Globulin 3.6 g/dL Albumin/Globulin Ratio 0.7 (1.0-2.7) L Height (Feet): 5 Height (Inches): 10.00 Weight (Pounds): 167 General Appearance: WD/WN, no apparent distress, alert Cardiovascular: normal rate Respiratory/Chest: normal breath sounds, no respiratory distress Abdominal Exam: normal bowel sounds, non tender, soft, GT site Extremities: normal range of motion, non-tender Alex Mcfarland NP Oct 08, 2019 11:47
--- NOTE | 2019-10-08 11:55 | Diagnostic Imaging Report ---
Indication: Abdominal pain Technique: Supine view of the abdomen Comparison: 05/30/2019 Findings: Considerable gas is seen throughout the colon which is upper limits of normal in caliber. No small bowel distention. Surgical clips are seen in the left iliac fossa. Previously demonstrated rectal fecal impaction is no longer evident. There are posttraumatic changes of the left hip noted. Impression: Nonspecific prominent colon gas without definite evidence of obstruction. Other findings as noted
[2019-10-08] MEDS: Zinc Oxide Oint 2oz TOPIC SCH (13:11)
--- NOTE | 2019-10-08 13:25 | General Progress Note ---
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 SNOMED: 473674963 (6) Failure to thrive SNOMED: 41810333 (7) Constipation ICD Codes: K59.00 - Constipation, unspecified SNOMED: 24490725 Status: stable, progressing Assessment/Plan: pt diet gi sx f/u cbc bmp am dc plan Subjective Constitutional: Reports: weakness Allergies: Coded Allergies: NO KNOWN DRUG ALLERGIES (Unverified Allergy, Unknown, 07/16/19) All Systems: reviewed and negative except above Subjective sleepy calm in bed Objective Last 24 Hour Vital Signs Date Time Temp Pulse Resp B/P (MAP) Pulse Ox O2 Delivery O2 Flow Rate FiO2 10/08/19 09:00 Room Air 10/08/19 08:00 98.6 85 19 112/71 (85) 96 10/08/19 04:00 98.2 86 18 124/71 (88) 96 10/08/19 00:00 98.0 88 17 118/62 (80) 96 10/07/19 21:00 Room Air 10/07/19 20:00 97.5 93 17 111/68 (82) 96 10/07/19 16:00 97.8 79 18 118/59 (78) 96 Intake and Output 10/07/19 10/08/19 19:00 07:00 Intake Total 1310 ml 1960 ml Balance 1310 ml 1960 ml Intake Free Water 200 ml IV Total 1100 ml 1100 ml Tube Feeding 210 ml 660 ml # Bowel Movements 3 8 Laboratory Tests 10/08/19 05:25: White Blood Count 6.5, Red Blood Count 5.54, Hemoglobin 12.3L, Hematocrit 38.8L , Mean Corpuscular Volume 70L, Mean Corpuscular Hemoglobin 22.3L, Mean Corpuscular Hemoglobin Concent 31.8L, Red Cell Distribution Width 12.8, Platelet Count 266, Mean Platelet Volume 9.1, Neutrophils (%) (Auto) 64.6, Lymphocytes (%) (Auto) 20.8, Monocytes (%) (Auto) 7.1, Eosinophils (%) (Auto) 6.6H, Basophils (%) (Auto) 0.9, Sodium Level 142, Potassium Level 2.8L, Chloride Level 109H, Carbon Dioxide Level 19L, Anion Gap 14, Blood Urea Nitrogen 9, Creatinine 0.6, Estimat Glomerular Filtration Rate > 60, Glucose Level 126H, Calcium Level 8.0L, Total Bilirubin 0.2, Aspartate Amino Transf (AST /SGOT) 17, Alanine Aminotransferase (ALT/SGPT) 18, Alkaline Phosphatase 87, Total Protein 6.2L, Albumin 2.6L, Globulin 3.6, Albumin/Globulin Ratio 0.7L Height (Feet): 5 Height (Inches): 10.00 Weight (Pounds): 167 General Appearance: lethargic EENT: normal ENT inspection Neck: normal alignment Cardiovascular: normal peripheral pulses, normal rate, regular rhythm Respiratory/Chest: chest wall non-tender, lungs clear, normal breath sounds Abdomen: normal bowel sounds, non tender, soft Extremities: normal inspection Edema: no edema noted Arm (L), no edema noted Arm (R), no edema noted Leg (L), no edema noted Leg (R), no edema noted Pedal (L), no edema noted Pedal (R), no edema noted Generalized Neurologic: motor weakness Skin: normal pigmentation, warm/dry Donaldo Johnson DO Oct 08, 2019 13:25
--- NOTE | 2019-10-08 15:50 | Surgery Progress Note ---
Surgery Progress Note Subjective Symptoms: improved, tolerating diet, voiding well, passing flatus, BM Objective Last 24 Hour Vital Signs Date Time Temp Pulse Resp B/P (MAP) Pulse Ox O2 Delivery O2 Flow Rate FiO2 10/08/19 12:00 98.0 88 17 118/62 (80) 96 10/08/19 09:00 Room Air 10/08/19 08:00 98.6 85 19 112/71 (85) 96 10/08/19 04:00 98.2 86 18 124/71 (88) 96 10/08/19 00:00 98.0 88 17 118/62 (80) 96 10/07/19 21:00 Room Air 10/07/19 20:00 97.5 93 17 111/68 (82) 96 10/07/19 16:00 97.8 79 18 118/59 (78) 96 I&O Intake and Output 10/07/19 10/08/19 19:00 07:00 Intake Total 1310 ml 1960 ml Balance 1310 ml 1960 ml Intake Free Water 200 ml IV Total 1100 ml 1100 ml Tube Feeding 210 ml 660 ml # Bowel Movements 3 8 Cardiovascular: RSR Respiratory: clear Abdomen: soft, flat, non-tender, present bowel sounds, non-distended Extremities: no tenderness, no cyanosis Laboratory Tests Test 10/08/19 05:25 White Blood Count 6.5 K/UL (4.8-10.8) Red Blood Count 5.54 M/UL (4.70-6.10) Hemoglobin 12.3 G/DL (14.2-18.0) L Hematocrit 38.8 % (42.0-52.0) L Mean Corpuscular Volume 70 FL (80-99) L Mean Corpuscular Hemoglobin 22.3 PG (27.0-31.0) L Mean Corpuscular Hemoglobin Concent 31.8 G/DL (32.0-36.0) L Red Cell Distribution Width 12.8 % (11.6-14.8) Platelet Count 266 K/UL (150-450) Mean Platelet Volume 9.1 FL (6.5-10.1) Neutrophils (%) (Auto) 64.6 % (45.0-75.0) Lymphocytes (%) (Auto) 20.8 % (20.0-45.0) Monocytes (%) (Auto) 7.1 % (1.0-10.0) Eosinophils (%) (Auto) 6.6 % (0.0-3.0) H Basophils (%) (Auto) 0.9 % (0.0-2.0) Sodium Level 142 MMOL/L (136-145) Potassium Level 2.8 MMOL/L (3.5-5.1) L Chloride Level 109 MMOL/L (98-107) H Carbon Dioxide Level 19 MMOL/L (21-32) L Anion Gap 14 mmol/L (5-15) Blood Urea Nitrogen 9 mg/dL (7-18) Creatinine 0.6 MG/DL (0.55-1.30) Estimat Glomerular Filtration Rate > 60 mL/min (>60) Glucose Level 126 MG/DL (74-106) H Calcium Level 8.0 MG/DL (8.5-10.1) L Total Bilirubin 0.2 MG/DL (0.2-1.0) Aspartate Amino Transf (AST/SGOT) 17 U/L (15-37) Alanine Aminotransferase (ALT/SGPT) 18 U/L (12-78) Alkaline Phosphatase 87 U/L (46-116) Total Protein 6.2 G/DL (6.4-8.2) L Albumin 2.6 G/DL (3.4-5.0) L Globulin 3.6 g/dL Albumin/Globulin Ratio 0.7 (1.0-2.7) L Plan Problems: (1) Abdominal distention Assessment & Plan: There is marked distention of the rectum by feces, rectal diameter up to 10.3 cm there is minimal wall thickening of the rectum. Considerable stool is also seen throughout the sigmoid and descending colon. The colon proximal to the splenic flexure is markedly distended with gas and to lesser extent fluid. The appendix is normal. Small bowel is nondistended. No evidence of pneumatosis. There is trace free intraperitoneal fluid over the dome of the liver. No free intraperitoneal gas There is a small left inguinal hernia that contains only fat. This is a new finding.. The stomach contains a gastrostomy tube. This appears to be well positioned. The distal esophagus is unremarkable. The duodenum is unremarkable. The gallbladder is not definitely visualized, may be compressed by the distended colon or removed in the interim. No biliary ductal dilatation. The liver, pancreas, spleen, adrenals are unremarkable. The kidneys demonstrate subcentimeter low-attenuation lesions which are too small to characterize, most likely benign simple cortical cysts. No retroperitoneal or mesenteric mass or adenopathy. No pelvic mass or adenopathy. Surgical clips are again demonstrated in the left buttock region. The bones demonstrate old left hip fracture deformity. Compression fracture deformities of L1, T10, and T11 are unchanged. The included lung bases demonstrate bilateral basilar atelectasis and possibly some consolidation on the right. Impression: Marked rectal fecal impaction. Considerable diffuse colonic distention, presumably indicates distal colonic obstruction related to such Trace free intraperitoneal fluid Gastrostomy Bilateral basilar pulmonary parenchymal atelectasis and possibly right-sided consolidation Nonvisualized gallbladder Subcentimeter low-attenuation renal lesions, too small to characterize, most likely benign simple cysts. Findings: Considerable gas is seen throughout the colon which is upper limits of normal in caliber. No small bowel distention. Surgical clips are seen in the left iliac fossa. Previously demonstrated rectal fecal impaction is no longer evident. There are posttraumatic changes of the left hip noted. Impression: Nonspecific prominent colon gas without definite evidence of obstruction. Other findings as noted (2) Constipation Assessment & Plan: as per GI Mineral oil GT x1 Mineral oil enema x1 Colace 100 mg 3 times daily Lactulose 30 mg 3 times daily. Electrolyte correction GT site care daily, zinc oxide resume tube feeds (3) Fecal impaction Assessment & Plan: possible manual disimpaction if necessary (4) Decubitus ulcer (5) Feeding by G-tube Assessment & Plan: DAILY ESTIMATED NEEDS: Needs based on DM, WOUND (71kg) 25-30 kcals/kg 5354-4625 total kcals 1.25-1.5 g protein/kg 88-106 g total protein 25-30 mL/kg 9072-2251 total fluid mLs NUTRITION DIAGNOSIS: Swallowing difficulty R/T dysphagia, hx CVA as evidenced by pt PEG dependent, NPO at this time. CURRENT TF:NPO ENTERAL NUTRITION RECOMMENDATIONS: Glucerna 1.2 @ 65ml/hr x 24 hrs to provide 1560ml, 1872kcal, 94g prot, 1256ml free water * When medically appropriate, initiate Glucerna 1.2 @ 35ml/hr x 6 hrs -> advance 10ml q 4-6 hrs as tolerated to goal rate * HOB>30 degrees * Water flush of 120ml q 4 hrs ADDITIONAL RECOMMENDATIONS: 1) Calibrated bed scale for accurate wts -> per SNF: HT=68", [id number] (09/28/19) 2) Daily bowel regimen 3) F/up w/ WC eval -> add Rashid 1ptk BID for skin integrity -> TF rec @ goal will provide 100% RDI 4) Rec adding NISS: H/o DM w/ A1C 6.2. Additional Comments Improved. No disimpaction necessary. Diet as tolerated. Continue with bowel regimen. Abdominal exam resolved. KUB resolved. Ziyad Bolaños Oct 08, 2019 15:49
--- NOTE | 2019-10-08 23:00 | Consultation ---
DATE OF CONSULTATION: CONSULTING PHYSICIAN: Gordo Adams PsyD. TREATING ATTENDING: Donaldo Johnson D.O. HISTORY OF PRESENT ILLNESS: The patient is a 63-year-old male with history of paranoid schizophrenia. The patient was brought to the hospital with fecal impaction. He has been very confused, disorganized, and for these reasons, he was referred for psychotherapeutic services. When I saw this patient, he is a very poor historian. The patient speaks in one-word answers. He is anxious. The patient counts out loud; however, he is extremely disorganized, altered in his mental status, poor historian and I did a complete review of record. At this time, the patient is a poor historian 00:53. The patient has been anxious and irritable, however, restless. There is no indication of suicidal or homicidal thoughts of ideation. PAST MEDICAL HISTORY: Includes a history of seizures, gastroesophageal reflux, OBS, encephalopathy, failure to thrive. ALLERGIES: The patient has no known drug allergies. SUBSTANCE ABUSE HISTORY: There is no indication of alcohol use, illicit substance use, smoking cigarettes. PAST PSYCHIATRIC HISTORY: The patient has a history of paranoid schizophrenia and has been treated with psychotropic medications in the past. SOCIAL HISTORY: The patient is a 63-year-old single male patient from [facility]. Financially sustained through [facility]. MENTAL STATUS EXAMINATION: The patient is alert, oriented to person. Mood is anxious. Affect is blunted. Thought process, disorganized. He has poor attention and concentration. Poor insight, judgment, and impulse control. DIAGNOSES: 1. Paranoid schizophrenia. 2. OBS, seizures, failure to thrive. 3. Psychosocial stressors are moderate. I assessed this patient and provided him with, 1. Reality orientation, which is focused on improving cognitive level of function, as the patient is very confused and disorganized, oriented to person, place, time, and situation. I attempted to provide him the supportive psychotherapy, which is an approach focused on identifying positive emotions of stress; however, this patient is extremely poor historian, unable to participate in treatment; therefore, an extensive review of records was done. PLAN: To maintain medication compliance with use of positive coping skills when possible. This clinician has reviewed the patient's chart. Discussed the patient's treatment with psychotherapy service including an extensive review of records, 45 minutes. Gordo Adams PsyD. DR: LISA JOB#: [id number] CC:
[2019-10-09 04:00] VITALS: BP 132/69
[2019-10-09] MEDS: D5 1/2NS 1,000 ML IV SCH (05:45)
[2019-10-09 06:47] LABS: BASOPHILS % (AUTO) 1.1 % (0.0-2.0); EOSINOPHILS % (AUTO) 6.9 % (0.0-3.0); HEMATOCRIT 40.3 % (42.0-52.0); HEMOGLOBIN 12.9 G/DL (14.2-18.0); LYMPHOCYTES % (AUTO) 29.2 % (20.0-45.0); MEAN CORPUSCULAR VOLUME 70 FL (80-99); MONOCYTES % (AUTO) 8.9 % (1.0-10.0); NEUTROPHILS % (AUTO) 53.9 % (45.0-75.0); PLATELET COUNT 276 K/UL (150-450); RED CELL DISTRIBUTION WIDTH 12.8 % (11.6-14.8); WHITE BLOOD COUNT 5.3 K/UL (4.8-10.8)
[2019-10-09 07:08] LABS: ANION GAP 10 mmol/L (5-15); BLOOD UREA NITROGEN 9 mg/dL (7-18); CALCIUM 8.3 MG/DL (8.5-10.1); CARBON DIOXIDE 24 MMOL/L (21-32); CHLORIDE 108 MMOL/L (98-107); CREATININE 0.7 MG/DL (0.55-1.30); POTASSIUM 3.4 MMOL/L (3.5-5.1); SODIUM 142 MMOL/L (136-145)
[2019-10-09 08:00] VITALS: BP 114/73
[2019-10-09] MEDS: levETIRAcetam 500mg/5ml Liquid GT SCH (09:48)
[2019-10-09] MEDS: Docusate 100mg cap ORAL SCH (09:49)
[2019-10-09] MEDS: Zinc Sulfate 220mg cap ORAL SCH (09:50)
[2019-10-09] MEDS: Ascorbic Acid 500mg tab GT SCH (09:50)
--- NOTE | 2019-10-09 09:50 | General Progress Note ---
Assessment/Plan Status: stable, progressing Assessment/Plan: Assessment/Plan Problems: (1) Fecal impaction ICD Codes: K56.41 - Fecal impaction SNOMED: 14252659 (2) Failure to thrive SNOMED: 46645466 (3) Abdominal distention ICD Codes: R14.0 - Abdominal distension (gaseous) SNOMED: 89466806 (4) Malnutrition ICD Codes: E46 - Unspecified protein-calorie malnutrition SNOMED: 17830908 (5) GERD (gastroesophageal reflux disease) Assessment/Plan Colace 100 mg 3 times daily titrate bowel regime Electrolyte correction GT site care daily, zinc oxide start GTF, tolerating fu labs We will follow with additional recommendations on a daily basis Subjective ROS Limited/Unobtainable: No Allergies: Coded Allergies: NO KNOWN DRUG ALLERGIES (Unverified Allergy, Unknown, 07/16/19) Objective Last 24 Hour Vital Signs Date Time Temp Pulse Resp B/P (MAP) Pulse Ox O2 Delivery O2 Flow Rate FiO2 10/09/19 08:00 97.4 85 19 114/73 (87) 96 85 10/09/19 04:00 98.1 95 18 132/69 (90) 95 95 10/08/19 23:59 97.6 90 20 121/71 (88) 95 90 10/08/19 21:27 Room Air 10/08/19 20:00 97.3 68 18 127/63 (84) 96 68 10/08/19 16:00 98.1 90 18 114/72 (86) 10/08/19 12:00 98.0 88 17 118/62 (80) 96 Intake and Output 10/08/19 10/09/19 19:00 07:00 Intake Total 2020 ml 340 ml Output Total 100 ml Balance 2020 ml 240 ml Intake Free Water 200 ml 100 ml IV Total 1100 ml Tube Feeding 720 ml 240 ml Output Urine Total 100 ml # Voids 1 # Bowel Movements 1 1 Laboratory Tests 10/09/19 06:05: White Blood Count 5.3, Red Blood Count 5.80, Hemoglobin 12.9L, Hematocrit 40.3L , Mean Corpuscular Volume 70L, Mean Corpuscular Hemoglobin 22.2L, Mean Corpuscular Hemoglobin Concent 32.0, Red Cell Distribution Width 12.8, Platelet Count 276, Mean Platelet Volume 8.7, Neutrophils (%) (Auto) 53.9, Lymphocytes (% ) (Auto) 29.2, Monocytes (%) (Auto) 8.9, Eosinophils (%) (Auto) 6.9H, Basophils (%) (Auto) 1.1, Sodium Level 142, Potassium Level 3.4L, Chloride Level 108H, Carbon Dioxide Level 24, Anion Gap 10, Blood Urea Nitrogen 9, Creatinine 0.7, Estimat Glomerular Filtration Rate > 60, Glucose Level 126H, Calcium Level 8.3L Height (Feet): 5 Height (Inches): 10.00 Weight (Pounds): 167 General Appearance: no apparent distress EENT: normal ENT inspection Neck: supple Cardiovascular: normal rate Respiratory/Chest: decreased breath sounds Abdomen: normal bowel sounds, non tender, soft Extremities: non-tender Leonides Light MD Oct 09, 2019 09:50
[2019-10-09] MEDS: Zinc Oxide Oint 2oz TOPIC SCH (09:53)
[2019-10-09] MEDS: Heparin 5000 units/ml inj SUBQ SCH (09:57)
[2019-10-09 12:00] VITALS: BP 115/79
--- NOTE | 2019-10-09 12:35 | Surgery Progress Note ---
Surgery Progress Note Subjective Symptoms: improved, tolerating diet, passing flatus Objective Last 24 Hour Vital Signs Date Time Temp Pulse Resp B/P (MAP) Pulse Ox O2 Delivery O2 Flow Rate FiO2 10/09/19 09:00 Room Air 10/09/19 08:00 97.4 85 19 114/73 (87) 96 85 10/09/19 04:00 98.1 95 18 132/69 (90) 95 95 10/08/19 23:59 97.6 90 20 121/71 (88) 95 90 10/08/19 21:27 Room Air 10/08/19 20:00 97.3 68 18 127/63 (84) 96 68 10/08/19 16:00 98.1 90 18 114/72 (86) I&O Intake and Output 10/08/19 10/09/19 19:00 07:00 Intake Total 2020 ml 340 ml Output Total 100 ml Balance 2020 ml 240 ml Intake Free Water 200 ml 100 ml IV Total 1100 ml Tube Feeding 720 ml 240 ml Output Urine Total 100 ml # Voids 1 # Bowel Movements 1 1 Dressing: other Wound: other Drains: other Cardiovascular: RSR Respiratory: clear Abdomen: soft, non-tender, present bowel sounds, non-distended Extremities: no edema, no tenderness, no cyanosis Laboratory Tests Test 10/09/19 06:05 White Blood Count 5.3 K/UL (4.8-10.8) Red Blood Count 5.80 M/UL (4.70-6.10) Hemoglobin 12.9 G/DL (14.2-18.0) L Hematocrit 40.3 % (42.0-52.0) L Mean Corpuscular Volume 70 FL (80-99) L Mean Corpuscular Hemoglobin 22.2 PG (27.0-31.0) L Mean Corpuscular Hemoglobin Concent 32.0 G/DL (32.0-36.0) Red Cell Distribution Width 12.8 % (11.6-14.8) Platelet Count 276 K/UL (150-450) Mean Platelet Volume 8.7 FL (6.5-10.1) Neutrophils (%) (Auto) 53.9 % (45.0-75.0) Lymphocytes (%) (Auto) 29.2 % (20.0-45.0) Monocytes (%) (Auto) 8.9 % (1.0-10.0) Eosinophils (%) (Auto) 6.9 % (0.0-3.0) H Basophils (%) (Auto) 1.1 % (0.0-2.0) Sodium Level 142 MMOL/L (136-145) Potassium Level 3.4 MMOL/L (3.5-5.1) L Chloride Level 108 MMOL/L (98-107) H Carbon Dioxide Level 24 MMOL/L (21-32) Anion Gap 10 mmol/L (5-15) Blood Urea Nitrogen 9 mg/dL (7-18) Creatinine 0.7 MG/DL (0.55-1.30) Estimat Glomerular Filtration Rate > 60 mL/min (>60) Glucose Level 126 MG/DL (74-106) H Calcium Level 8.3 MG/DL (8.5-10.1) L Plan Problems: (1) Abdominal distention Assessment & Plan: There is marked distention of the rectum by feces, rectal diameter up to 10.3 cm there is minimal wall thickening of the rectum. Considerable stool is also seen throughout the sigmoid and descending colon. The colon proximal to the splenic flexure is markedly distended with gas and to lesser extent fluid. The appendix is normal. Small bowel is nondistended. No evidence of pneumatosis. There is trace free intraperitoneal fluid over the dome of the liver. No free intraperitoneal gas There is a small left inguinal hernia that contains only fat. This is a new finding.. The stomach contains a gastrostomy tube. This appears to be well positioned. The distal esophagus is unremarkable. The duodenum is unremarkable. The gallbladder is not definitely visualized, may be compressed by the distended colon or removed in the interim. No biliary ductal dilatation. The liver, pancreas, spleen, adrenals are unremarkable. The kidneys demonstrate subcentimeter low-attenuation lesions which are too small to characterize, most likely benign simple cortical cysts. No retroperitoneal or mesenteric mass or adenopathy. No pelvic mass or adenopathy. Surgical clips are again demonstrated in the left buttock region. The bones demonstrate old left hip fracture deformity. Compression fracture deformities of L1, T10, and T11 are unchanged. The included lung bases demonstrate bilateral basilar atelectasis and possibly some consolidation on the right. Impression: Marked rectal fecal impaction. Considerable diffuse colonic distention, presumably indicates distal colonic obstruction related to such Trace free intraperitoneal fluid Gastrostomy Bilateral basilar pulmonary parenchymal atelectasis and possibly right-sided consolidation Nonvisualized gallbladder Subcentimeter low-attenuation renal lesions, too small to characterize, most likely benign simple cysts. Findings: Considerable gas is seen throughout the colon which is upper limits of normal in caliber. No small bowel distention. Surgical clips are seen in the left iliac fossa. Previously demonstrated rectal fecal impaction is no longer evident. There are posttraumatic changes of the left hip noted. Impression: Nonspecific prominent colon gas without definite evidence of obstruction. Other findings as noted (2) Constipation Assessment & Plan: as per GI Mineral oil GT x1 Mineral oil enema x1 Colace 100 mg 3 times daily Lactulose 30 mg 3 times daily. Electrolyte correction GT site care daily, zinc oxide resume tube feeds (3) Fecal impaction Assessment & Plan: possible manual disimpaction if necessary (4) Decubitus ulcer (5) Feeding by G-tube Assessment & Plan: DAILY ESTIMATED NEEDS: Needs based on DM, WOUND (71kg) 25-30 kcals/kg 2429-3396 total kcals 1.25-1.5 g protein/kg 88-106 g total protein 25-30 mL/kg 1376-4385 total fluid mLs NUTRITION DIAGNOSIS: Swallowing difficulty R/T dysphagia, hx CVA as evidenced by pt PEG dependent, NPO at this time. CURRENT TF:NPO ENTERAL NUTRITION RECOMMENDATIONS: Glucerna 1.2 @ 65ml/hr x 24 hrs to provide 1560ml, 1872kcal, 94g prot, 1256ml free water * When medically appropriate, initiate Glucerna 1.2 @ 35ml/hr x 6 hrs -> advance 10ml q 4-6 hrs as tolerated to goal rate * HOB>30 degrees * Water flush of 120ml q 4 hrs ADDITIONAL RECOMMENDATIONS: 1) Calibrated bed scale for accurate wts -> per SNF: HT=68", WW=[id number] (09/28/19) 2) Daily bowel regimen 3) F/up w/ WC eval -> add Rashid 1ptk BID for skin integrity -> TF rec @ goal will provide 100% RDI 4) Rec adding NISS: H/o DM w/ A1C 6.2. Ziyad Bolaños Oct 09, 2019 12:35
[2019-10-09 16:00] VITALS: BP 119/63
[2019-10-09] MEDS ORDERED: RESTORIL15 MG ORAL (16:09)
[2019-10-09] MEDS ORDERED: ZINC OXIDE56.7 GM TOPIC (16:10)
[2019-10-09] MEDS ORDERED: FLEET ENEMA133 M1 RC (16:13)
[2019-10-09] MEDS ORDERED: MYLANTA30 M1 GT (16:16)
[2019-10-09] MEDS ORDERED: D5 1/2NS 1000ml IV ONE (17:24)
--- NOTE | 2019-10-11 13:28 | Discharge Summary ---
Discharge Summary Discharge Summary _ DATE OF ADMISSION: 10/05/2019 DATE OF DISCHARGE: 10/16/2019 DISCHARGED BY: Dr. Donaldo Johnson CONSULTANTS: Juliana Cloud Dr. [facility] COURSE: Patient is a 64-year-old male from [facility] presented to ED due to inability to have a bowel movement for 3 days. He has medical history of dementia, diabetes mellitus, hypertension, OK, coronary artery disease, COPD, seizure disorder, Parkinson's, and has a G-tube. Upon evaluation at ED, blood pressure was stable, heart rate was elevated to 114. He was saturating 95% on room air. Blood work did not show any leukocytosis. Hemoglobin and hematocrit were normal. Electrolytes were normal. Kidney function normal. LFTs normal. CT scan of the abdomen and pelvis showed colonic distention of the redundant colon. No evidence of volvulus or mass. Stool throughout the colon with fecal impaction. Unremarkable appendix. Percutaneous G-tube. He was admitted for fecal impaction. GI and surgeon were consulted. CT scan showed marked rectal fecal impaction, considerable diffuse colonic distention, presumably colonic obstruction related to fecal impaction. The abdomen was assessed, abdomen was rigid, and distended , no tenderness, no rebound, no guarding no peritoneal signs. He was given Colace, lactulose. He was started on G tube feeding. Patient had 2 BMs. He was provided with G-tube care. Zinc oxide was applied. KUB showed nonspecific prominent colon gas without definite evidence of obstruction. Patient was confused, disorganized and has active mental status. He was seen by psychologist. He was diagnosed with paranoid schizophrenia, he was provided reality orientation. He was cleared for discharge back to retirement. FINAL DIAGNOSES: Abdominal distention due to fecal impaction, resolved Feeding via G-tube Failure to thrive Malnutrition GERD Paranoid schizophrenia DISPOSITION: DC back to SNF DISCHARGE MEDICATIONS: Refer to Discharge Medication List. I have been assigned to complete a discharge summary on this account, I was not involved with the patient's management.--TYE Wolf Jacqueline Robles NP Oct 11, 2019 13:28
== END 2019-10-09 17:25 | DRG 388 ==
LOC: EDBD 16:02 → EMR 16:43 → 4E 21:43 → EDBEDREQ 22:10 → 4E 23:36
DX: K56.41 Fecal impaction (principal); G04.90 Encephalitis and encephalomyelitis, unspecified; E46 Unspecified protein-calorie malnutrition; Z43.1 Encounter for attention to gastrostomy; F20.0 Paranoid schizophrenia; E86.0 Dehydration; K21.9 Gastro-esophageal reflux disease without esophagitis; F09 Unspecified mental disorder due to known physiological condition; G20 Parkinson's disease; F02.80 Dementia in other diseases classified elsewhere, unspecified severity, without behavioral disturbance, psychotic disturbance, mood disturbance, and anxiety; E11.9 Type 2 diabetes mellitus without complications; G40.909 Epilepsy, unspecified, not intractable, without status epilepticus
CPT/HCPCS: 36415; 74018; 74177; 80048; 80053; 80061; 83036; 83690; 83735; 83880; 84100; 85025; 85610; 85730; 87081; 96360; 99285; J7030; J8499

== ENCOUNTER 2019-11-20 19:31 | Inpatient (IN) | payer MEDICARE, MEDICAID ==
[~2019-11-20] VITALS: Ht 177.8 cm; Wt 72.6 kg
[~2019-11-20 19:31] MED LIST changes: +FLEET ENEMA133 M1 RC; +METOPROLOL TART25 MG ORAL; +MYLANTA30 M1 GT; +RESTORIL15 MG ORAL; +ZINC OXIDE56.7 GM TOPIC
[2019-11-20 19:45] VITALS: BP 112/50
--- NOTE | 2019-11-20 19:45 | NUR ---
ER Nurse Note: Pt brought in by ambulance from [facility] c/o fever since 11/18. Per EMS, pt was given tylenol at [facility] and temp of 98F. Pt does not present with cough. Pt arrived with g-tube. Pt arrived with heel protectors, skin remains intact. All safety measures met; will continue to monitor.
--- NOTE | 2019-11-20 20:24 | Emergency Room Report ---
History of Present Illness General Chief Complaint: Fever Source: Medical Record Present Illness HPI 64-year-old male presents ED for evaluation of cough and fever. Coming from long-term facility. X1 day. Afebrile in triage. No coughing here. Patient nonverbal. History of paranoid schizophrenia. No signs of distress on arrival. No other aggravating relieving factors. No other associated symptoms Allergies: Coded Allergies: NO KNOWN DRUG ALLERGIES (Unverified Allergy, Unknown, 07/16/19) COVID-19 Screening Contact w/high risk pt: Yes Recent Travel to affected area: No Experienced COVID-19 symptoms?: Yes COVID-19 symptoms experienced: Fever (T>100.4F or >38C), Cough Patient History Past Medical History: DM, HTN, COPD, CVA/TIA, psych hx Past Surgical History: none Pertinent Family History: none Social History: Denies: smoking, alcohol use, drug use Immunizations: UTD Reviewed Nursing Documentation: PMH: Agreed; PSxH: Agreed Nursing Documentation-PMH Hx Cardiac Problems: Yes Hx Hypertension: Yes Hx Pacemaker: No Hx Asthma: No Hx COPD: Yes Hx Diabetes: Yes Hx Cancer: No Hx Gastrointestinal Problems: Yes Hx Dialysis: No - BPH Hx Neurological Problems: Yes Hx Cerebrovascular Accident: Yes Hx Parkinson's Disease: Yes Hx Seizures: Yes Hx Epilepsy: Yes Hx Cerebral Palsy: Yes Hx Speech Problem: Yes Hx Aphasia: Yes Hx Weakness: Yes Review of Systems All Other Systems: limited Physical Exam Vital Signs Date Time Temp Pulse Resp B/P (MAP) Pulse Ox O2 Delivery O2 Flow Rate FiO2 11/20/19 19:32 98.2 84 16 112/50 (70) 94 Room Air Sp02 EP Interpretation: reviewed, normal General Appearance: no apparent distress, GCS 15, non-toxic, other - nonverbal Head: normocephalic, atraumatic Eyes: bilateral eye normal inspection, bilateral eye PERRL ENT: hearing grossly normal, normal pharynx, no angioedema, normal voice Neck: full range of motion, supple/symm/no masses Respiratory: chest non-tender, lungs clear, normal breath sounds, speaking full sentences Cardiovascular #1: regular rate, rhythm, no edema Cardiovascular #2: 2+ carotid (R), 2+ carotid (L), 2+ radial (R), 2+ radial (L) , 2+ dorsalis pedis (R), 2+ dorsalis pedis (L) Gastrointestinal: normal bowel sounds, non tender, soft, non-distended, no guarding, no rebound Rectal: deferred Genitourinary: normal inspection, no CVA tenderness Musculoskeletal: back normal, non-tender Neurologic: alert, other - nonverbal Psychiatric: other - nonverbal Reflexes: 3+ bicep (R), 3+ bicep (L), 3+ tricep (R), 3+ tricep (L), 3+ knee (R) , 3+ knee (L) Skin: other - nonverbal Lymphatic: no adenopathy Medical Decision Making Diagnostic Impression: Primary Impression: Pneumonia Qualified Codes: J18.9 - Pneumonia, unspecified organism ER Course Hospital Course 64-year-old male with fever and cough from long-term facility Differential diagnoses include: Pneumonia, CHF exacerbation, pneumothorax, fluid overload Clinical course Patient placed on stretcher. In isolation room. I wore full PPE. 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 After initial history and physical, I ordered labs, IV fluids, EKG, chest x-ray, blood cultures, UA. Labs -leukopenia noted, hemoglobin/hematocrit stable, electrolytes okay, lactate okay CXR - R sided lobe infiltrate EKG - NSR no acute ischemic changes interpreted by me Given IV fluids. Given antibiotics. COVID swab sent. Resting comfortably. Vitals stable. No respiratory distress. Case discussed with Dr. Johnson and he agreed to the patient to his service for further care and support I feel this is a highly complex case requiring extensive working including EKG/ Rhythm strip, Xray/CT/US, Blood/urine lab work, repeat exams while in ED, and administration of strong opiates/narcotics for pain control, admission to hospital or close patient follow up. Diagnosis - pneumonia Patient admitted to floor in serious condition Labs Test 11/20/19 20:00 White Blood Count 2.6 K/UL (4.8-10.8) Red Blood Count 7.19 M/UL (4.70-6.10) Hemoglobin 15.3 G/DL (14.2-18.0) Hematocrit 50.6 % (42.0-52.0) Mean Corpuscular Volume 70 FL (80-99) Mean Corpuscular Hemoglobin 21.2 PG (27.0-31.0) Mean Corpuscular Hemoglobin Concent 30.2 G/DL (32.0-36.0) Red Cell Distribution Width 14.4 % (11.6-14.8) Platelet Count 118 K/UL (150-450) Mean Platelet Volume 13.1 FL (6.5-10.1) Neutrophils (%) (Auto) % (45.0-75.0) Lymphocytes (%) (Auto) % (20.0-45.0) Monocytes (%) (Auto) % (1.0-10.0) Eosinophils (%) (Auto) % (0.0-3.0) Basophils (%) (Auto) % (0.0-2.0) Differential Total Cells Counted 100 Neutrophils % (Manual) 45 % (45-75) Lymphocytes % (Manual) 43 % (20-45) Monocytes % (Manual) 11 % (1-10) Eosinophils % (Manual) 0 % (0-3) Basophils % (Manual) 1 % (0-2) Band Neutrophils 0 % (0-8) Platelet Estimate Adequate Platelet Morphology Normal Polychromasia 1+ Anisocytosis 1+ Microcytosis 1+ Sodium Level 143 MMOL/L (136-145) Potassium Level 4.3 MMOL/L (3.5-5.1) Chloride Level 103 MMOL/L (98-107) Carbon Dioxide Level 29 MMOL/L (21-32) Anion Gap 12 mmol/L (5-15) Blood Urea Nitrogen 19 mg/dL (7-18) Creatinine 0.8 MG/DL (0.55-1.30) Estimat Glomerular Filtration Rate > 60 mL/min (>60) Glucose Level 107 MG/DL (74-106) Lactic Acid Level 1.70 mmol/L (0.4-2.0) Calcium Level 9.1 MG/DL (8.5-10.1) Total Bilirubin 0.4 MG/DL (0.2-1.0) Aspartate Amino Transf (AST/SGOT) 28 U/L (15-37) Alanine Aminotransferase (ALT/SGPT) 31 U/L (12-78) Alkaline Phosphatase 102 U/L (46-116) Total Protein 8.3 G/DL (6.4-8.2) Albumin 3.6 G/DL (3.4-5.0) Globulin 4.7 g/dL Albumin/Globulin Ratio 0.8 (1.0-2.7) EKG Diagnostic Results Rate: normal Rhythm: NSR ST Segments: no acute changes ASA given to the pt in ED: No Rhythm Strip Diag. Results EP Interpretation: yes Rhythm: NSR, no PVC's, no ectopy Chest X-Ray Diagnostic Results Chest X-Ray Diagnostic Results : Chest X-Ray Ordered: Yes # of Views/Limited/Complete: 1 View Indication: Other EP Interpretation: Yes Interpretation: no pneumothorax, other - pneumonia Impression: Other - pneumonia Electronically Signed by: Electronically signed by Gage Pinedo MD Last Vital Signs Date Time Temp Pulse Resp B/P (MAP) Pulse Ox O2 Delivery O2 Flow Rate FiO2 11/20/19 19:32 98.2 84 16 112/50 (70) 94 Room Air Status: improved Disposition: ADMITTED INPATIENT Condition: Serious Referrals: Donaldo Johnson DO (PCP) Gage Pinedo MD Nov 20, 2019 20:24
[2019-11-20 20:42] LABS: ANION GAP 12 mmol/L (5-15); BLOOD UREA NITROGEN 19 mg/dL (7-18); CALCIUM 9.1 MG/DL (8.5-10.1); CARBON DIOXIDE 29 MMOL/L (21-32); CHLORIDE 103 MMOL/L (98-107); CREATININE 0.8 MG/DL (0.55-1.30); POTASSIUM 4.3 MMOL/L (3.5-5.1); SODIUM 143 MMOL/L (136-145)
[2019-11-20 20:43] LABS: HEMATOCRIT 50.6 % (42.0-52.0); HEMOGLOBIN 15.3 G/DL (14.2-18.0); MEAN CORPUSCULAR VOLUME 70 FL (80-99); PLATELET COUNT 118 K/UL (150-450); RED BLOOD COUNT 7.19 M/UL (4.70-6.10); RED CELL DISTRIBUTION WIDTH 14.4 % (11.6-14.8); WHITE BLOOD COUNT 2.6 K/UL (4.8-10.8)
[2019-11-20 20:45] VITALS: BP 98/65
[2019-11-20] MEDS ORDERED: Cefepime HCl 1 GM in D5W 55 ML IVPB ONE (20:45)
[2019-11-20] MEDS ORDERED: Azithromycin 500 MG in NS 275 ML IV ONE (20:45)
[2019-11-20 20:47] LABS: ALANINE AMINOTRANSFERASE 31 U/L (12-78); ALBUMIN 3.6 G/DL (3.4-5.0); ALBUMIN/GLOBULIN RATIO 0.8 (1.0-2.7); ALKALINE PHOSPHATASE 102 U/L (46-116); ASPARTATE AMINO TRANSFERASE 28 U/L (15-37); BILIRUBIN,TOTAL 0.4 MG/DL (0.2-1.0)
--- NOTE | 2019-11-20 21:13 | Diagnostic Imaging Report ---
EXAM: XR Chest, 1 View CLINICAL HISTORY: COUGH TECHNIQUE: Frontal view of the chest. COMPARISON: 07/17/19. FINDINGS: Lungs: Patchy areas of mild increased hazy opacity are suspected in the right lung. This appears most prominent at the right apex. An acute infectious/inflammatory process should be considered. Pleural space: No definite plain film evidence for pneumothorax. Heart: Unremarkable. No cardiomegaly. Mediastinum: Unremarkable. Bones/joints: There is question of a vertebral body compression fracture of the lower thoracic spine. Degenerative changes of the thoracic spine. IMPRESSION: 1. Patchy areas of mild increased hazy opacity of suspected in the right lung. This appears most prominent at the right apex. An acute infectious/inflammatory process should be considered. 2. There is question of a vertebral body compression fracture of the lower thoracic spine.
--- NOTE | 2019-11-20 22:00 | NUR ---
ER Nurse Note: IV established second nurse on RT hand and RT hand finger; infusing fluids and antibiotics. Condom cath applied and awaiting urine. Blood sent, covid mrsa cre vre swabs sent. Airborne, droplet, contact isolation in place. Pt has mask upon arrival. All safety measures met[facility]
[2019-11-20 23:29] VITALS: BP 104/67
--- NOTE | 2019-11-20 23:37 | NUR ---
ER Nurse Note: On further inspection, pt has blanchable pressure injury on RT heel. Skin intact. Pictures taken and uploaded. Pt also has scabs on LT lower leg. Pt cleaned and linens changed. Awaiting urine. All safety measures met; will continue to [facility].
[2019-11-21] VITALS (8 sets, daily range): BP systolic 96–133; BP diastolic 59–71
--- NOTE | 2019-11-21 01:15 | NUR ---
ER Nurse Note: Bridging orders obtained by MILDRED. Pt transfered to [facility]. 70.0 kg with bedscale. Pt calm, no signs of acute distress. Pt reponds to stimulus, no fever, no cough noted. G-tube intact. No urine produced; condom cath in place. All safety measures met; will continue to [facility].
--- NOTE | 2019-11-21 04:15 | NUR ---
ER Nurse Note: No change in pt condition. No urine output with condom cath. All safety measures met; will continue to [facility].
--- NOTE | 2019-11-21 04:54 | NUR ---
ER Nurse Note: Urine collected and sent to lab; awaiting results.
--- NOTE | 2019-11-21 06:07 | NUR ---
ER Nurse Note: Second RN getting AM labs. Pt does not show signs of pain, resp distress. No cough noted. G-tube patent. Condom cath present. Isolation precautions in place. All safety measures met; will continue to [facility].
[2019-11-21 06:40] LABS: APPEARANCE,URINE CLEAR; BILIRUBIN, URINE NEGATIVE (NEGATIVE); GLUCOSE, URINE (UA) NEGATIVE (NEGATIVE); KETONES,URINE 2+ (NEGATIVE); LEUKOCYTE ESTERASE ,URINE 1+ (NEGATIVE); NITRITE,URINE NEGATIVE (NEGATIVE); PH,URINE 6 (4.5-8.0); PROTEIN,URINE 1+ (NEGATIVE); UROBILINOGEN,URINE NORMAL MG/DL (0.0-1.0)
[2019-11-21 06:40] LABS: BASOPHILS % (AUTO) 0.8 % (0.0-2.0); EOSINOPHILS % (AUTO) 1.5 % (0.0-3.0); LYMPHOCYTES % (AUTO) 31.1 % (20.0-45.0); MEAN CORPUSCULAR VOLUME 68 FL (80-99); MONOCYTES % (AUTO) 14.2 % (1.0-10.0); NEUTROPHILS % (AUTO) 52.4 % (45.0-75.0); PLATELET COUNT 125 K/UL (150-450); RED BLOOD COUNT 5.45 M/UL (4.70-6.10); RED CELL DISTRIBUTION WIDTH 12.6 % (11.6-14.8); WHITE BLOOD COUNT 3.6 K/UL (4.8-10.8)
[2019-11-21 06:42] LABS: COLOR,URINE YELLOW
--- NOTE | 2019-11-21 07:08 | NUR ---
ER Nurse Note: Endorsed care to EDU Jackson for continuity of care. ERMD aware of WBC; no further orders. Pt in bed; no signs of distress.
[2019-11-21 07:18] LABS: ANION GAP 8 mmol/L (5-15); BLOOD UREA NITROGEN 20 mg/dL (7-18); CALCIUM 8.2 MG/DL (8.5-10.1); CARBON DIOXIDE 26 MMOL/L (21-32); CHLORIDE 106 MMOL/L (98-107); CREATININE 0.6 MG/DL (0.55-1.30); POTASSIUM 4.2 MMOL/L (3.5-5.1); SODIUM 140 MMOL/L (136-145)
--- NOTE | 2019-11-21 07:37 | NUR ---
ED Nurse Note: Report received from EDU Worley. Pt lying comfortably in semi-fowlers with no signs of distress. Respirations even and unlabored on room air. Vitals stable as documented.
--- NOTE | 2019-11-21 09:31 | NUR ---
ED Nurse Note: Report given to EDU Schmidt on 4 E.
--- NOTE | 2019-11-21 09:45 | NUR ---
ED Nurse Note: Pt transferred safely to 4E.
--- NOTE | 2019-11-21 09:59 | NUR ---
Patient received in 415-1 Droplet and contact isolation precautions to be initiated for this patient. Patient calm and resting comfortably in bed. Vital signs obtained. See Interventions for details.
[2019-11-21] MEDS ORDERED: HYDROmorphone 1mg/ml Carpuject IVP PRN (11:15)
[2019-11-21] MEDS ORDERED: Albuterol ud Inhalation HHN PRN (11:15)
[2019-11-21] MEDS ORDERED: Zolpidem 5mg tab GT PRN (11:15)
[2019-11-21] MEDS ORDERED: Acetaminophen 650 MG SUPP RECTAL PRN (11:15)
[2019-11-21] MEDS ORDERED: Acetaminophen 650mg/20.3ml GT PRN ×2 (11:30)
[2019-11-21] MEDS ORDERED: Miralax 17gm pkt GT PRN (12:00)
[2019-11-21] MEDS ORDERED: LORazepam 1mg tab GT PRN ×2 (12:00→16:00)
[2019-11-21] MEDS: Pantoprazole Inj IV SCH (13:00)
[2019-11-21] MEDS: Enoxaparin 40mg Inj SUBQ SCH (13:00)
--- NOTE | 2019-11-21 14:00 | History and Physical Report ---
DATE OF ADMISSION: 11/20/2019 DATE AND TIME SEEN: On 11/21/2019 at 9 a.m. CONSULTANTS: 1. Abdifatah Carmichael MD. 2. Pito Song MD. 3. Enrrique Escudero MD. 4. Merrick Wills MD. CHIEF COMPLAINT: Fever, cough. BRIEF HISTORY: This is a 64-year-old male from [facility], presented with above-mentioned diagnosis, sent to [facility], diagnosed with the above. Currently in the ER, awaiting admission. The patient is sleepy in bed, not talking much, mask in place. PAST MEDICAL HISTORY: Includes diabetes, decubitus ulcer, failure to thrive, seizure, acute renal failure, altered mental status. PAST SURGICAL HISTORY: G-tube. MEDICATIONS: Include Zofran, Tylenol, cefepime, azithromycin, and IV fluids. ALLERGIES: Denies. SOCIAL HISTORY: No smoking. No alcohol. No intravenous drug abuse. FAMILY HISTORY: Noncontributory. PHYSICAL EXAMINATION: GENERAL: Lethargic in bed, altered, nonverbal. VITAL SIGNS: Temperature 97 degrees, pulse 81, respirations 18, blood pressure 109/66. HEENT: Normocephalic, atraumatic. NECK: Trachea midline. CARDIOVASCULAR: No peripheral edema. PULMONARY: Slight short of breath on room air. ABDOMEN: No apparent wounds noted. EXTREMITIES: Show no cyanosis, clubbing, or edema. LABORATORY AND DIAGNOSTIC DATA: Labs at this time show white count 3.6, hemoglobin and hematocrit 12/37, platelets 125. BMP shows BUN 20, otherwise BMP is normal. Calcium 8.2. Urinalysis 2+ ketones, 2+ blood, 1+ leukocyte esterase. ASSESSMENT: Fever, cough, UTI, COVID pending, pancytopenia, diabetes, decubitus ulcer, failure to thrive, seizure, acute renal failure, altered mental status. PLAN: Resume home medications. O2 and pulmonary treatment as needed. Antibiotics per Infectious Disease. Blood pressure, blood sugar, and seizure control. Dietary followup. We will Hematology and Dietary evaluation. CBC and BMP in the morning. Donaldo Johnson D.O. DR: FANNY JOB#: [id number] CC:
--- NOTE | 2019-11-21 14:56 | NUR ---
NURSE NOTES: I was told by Charge Nurse, Roxana; that patient's blood culture Gram positive cocci in cluster; MD Johnson notified; waiting for order.
[2019-11-21] MEDS: Meropenem 500mg in NS 55ml IVPB SCH ×2 (15:19→22:23)
--- NOTE | 2019-11-21 16:23 | Consultation ---
History of Present Illness General Date patient seen: Nov 21, 2019 Chief Complaint: Fever Present Illness HPI 64 y/o M with hx of Dm2, HTN, seizure disorder, dysphagia s/p GT, decubitus ulcer, FTT, cerebral palsy, COPD, CVA/TIA, paranoid schizophrenia, non verbal, SNF resident (Zaria Good) presented to ED on 11/19 with 1 day of cough, fever Allergies: Coded Allergies: NO KNOWN DRUG ALLERGIES (Unverified Allergy, Unknown, 07/16/19) Medication History Scheduled Al Hydroxide/mg Hydroxide (Mag-Al Liquid), 30 ML GT Q6HR, (Reported) Ascorbic Acid* (Vitamin C*), 500 MG GT TWICE A DAY, (Reported) Clotrimazole* (Lotrimin*), 1 APPLIC TOPIC TWICE A DAY, (Reported) Docusate Sodium (Docusate Sodium), 100 MG GT TWICE A DAY, (Reported) Famotidine (Pepcid), 20 MG ORAL BEDTIME, (Reported) Finasteride* (Proscar*), 5 MG GT DAILY, (Reported) Heparin Sod (Porcine) (Heparin Sodium*), 5,000 UNITS SUBQ EVERY 12 HOURS, ( Reported) Insulin Detemir (Levemir Flextouch), 15 UNIT SQ ACBREAKFAST, (Reported) Lacosamide (Vimpat), 100 MG GT EVERY 12 HOURS, (Reported) Levetiracetam* (Levetiracetam*), 2,000 MG GT BID, (Reported) Magnesium Hydroxide (Milk of Magnesia), 30 ML GT BEDTIME, (Reported) Meropenem (Meropenem), 500 MG IV Q8HR, (Reported) Metoprolol Tartrate (Metoprolol Tartrate), 25 MG GT EVERY 12 HOURS, (Reported) Metoprolol Tartrate* (Metoprolol Tartrate*), 25 MG GT EVERY 12 HOURS, (Reported) Metoprolol Tartrate* (Metoprolol Tartrate*), 12.5 MG ORAL EVERY 12 HOURS, ( Reported) Multivitamin Liquid* (Multi-Delyn*), 5 ML GT DAILY, (Reported) Omeprazole (Omeprazole), 20 MG GT DAILY, (Reported) Potassium Chloride (Potassium Chloride), 40 MEQ GT BID, (Reported) Ranitidine Hcl* (Zantac*), 150 MG GT BID, (Reported) Risperidone* (Risperdal*), 1 MG GT DAILY, (Reported) Sennosides/Docusate Sodium (Senna Laxative Tablet), 2 EACH GT QHS, (Reported) Valproate Sodium (Valproic Acid), 750 MG GT EVERY 12 HOURS, (Reported) Zinc Sulfate (Zinc Sulfate*), 220 MG ORAL DAILY, (Reported) Scheduled PRN Acetaminophen* (Acetaminophen 325MG Tablet*), 650 MG GT Q4H PRN for Fever/ Headache/Mild Pain, (Reported) Albuterol Sulfate* (Albuterol Sulfate Hhn*), 3 ML INH Q4H PRN for Shortness of Breath, (Reported) Bisacodyl (Dulcolax), 10 MG RC DAILY PRN for Constipation, (Reported) Dextrose 50 % In Water (Dextrose 50%-Water Vial), 50 ML IV for Hypoglycemia, ( Reported) Glucagon (Glucagen), 1 MG IJ NEEDED PRN for Hypoglycemia, (Reported) Ipratropium/Albuterol Sulfate (DuoNeb 0.5-3(2.5)mg/3ml), 3 ML HHN Q4HR PRN for Shortness of Breath, (Reported) Lorazepam* (Lorazepam*), 1 MG GT EVERY 12 HOURS PRN for For Anxiety, (Reported) Morphine Sulfate* (Morphine Sulfate*), 2 MG IVP Q4HR PRN for For Pain, (Reported ) Na Phos,M-B/Na Phos,Di-Ba (Fleet Enema), 133 ML RC DAILY PRN for Constipation, ( Reported) Na Phos,M-B/Na Phos,Di-Ba* (Fleet Enema*), 133 ML RECTAL DAILY PRN for Constipation, (Reported) Nitroglycerin (Nitroglycerin), 0.4 MG SL q5mns x three doses PRN for chest pain, (Reported) Ondansetron* (Zofran*), 4 MG GT Q6H PRN for Nausea & Vomiting, (Reported) Polyethylene Glycol 3350* (Miralax*), 17 GM GT DAILY PRN for Constipation, ( Reported) Prochlorperazine Edisylate* (Compazine*), 10 MG IVP Q6H PRN for Nausea & Vomiting, (Reported) Temazepam* (Restoril*), 15 MG ORAL BEDTIME PRN for Insomnia, (Reported) Miscellaneous Medications Insulin Aspart (Novolog Flexpen), (Reported) Lacosamide (Vimpat), 10 MG GT, (Reported) Lacosamide (Vimpat), 100 MG GT, (Reported) Magnesium Hydroxide* (Milk Of Magnesia*), 30 ML GT, (Reported) Valproate Sodium (Valproic Acid), 500 MG GT, (Reported) Water For Irrigation,Sterile (Water), 1,000 ML IR, (Reported) Zinc Oxide (Zinc Oxide), 1 APPLIC TOPIC, (Reported) [insulin novolog], (Reported) Patient History Healthcare decision maker Resuscitation status Full Code Advanced Directive on File Patient History Narrative Pmhx: as above Shx: Denies: smoking, alcohol use, drug use Fhmx: non contributory Review of Systems All Other Systems: negative except mentioned in HPI Physical Exam Physical Exam Narrative HEENT: Normocephalic, atraumatic. NECK: Trachea midline. CARDIOVASCULAR: No peripheral edema. PULMONARY: Slight short of breath on room air. ABDOMEN: No apparent wounds noted. EXTREMITIES: Show no cyanosis, clubbing, or edema. Last 24 Hour Vital Signs Date Time Temp Pulse Resp B/P (MAP) Pulse Ox O2 Delivery O2 Flow Rate FiO2 11/21/19 12:00 99.1 95 18 99/67 (78) 96 11/21/19 10:02 97.7 89 17 96/59 (71) 93 11/21/19 07:06 86 16 103/71 100 Room Air 11/21/19 06:05 88 18 100/67 97 Room Air 11/21/19 04:14 85 16 100/64 98 Room Air 11/21/19 01:14 97.8 81 18 109/66 100 Room Air 11/20/19 23:29 97.8 83 16 104/67 100 Room Air 11/20/19 20:45 84 18 98/65 100 Room Air 11/20/19 19:45 98.2 84 16 112/50 94 Room Air 11/20/19 19:45 84 16 Room Air 11/20/19 19:32 98.2 84 16 112/50 (70) 94 Room Air Intake and Output 11/20/19 11/21/19 19:00 07:00 Intake Total 1330 ml Balance 1330 ml Intake IV Total 1330 ml Laboratory Tests Test 11/20/19 20:00 11/21/19 04:50 11/21/19 06:15 White Blood Count 2.6 K/UL (4.8-10.8) L 3.6 K/UL (4.8-10.8) L Red Blood Count 7.19 M/UL (4.70-6.10) H 5.45 M/UL (4.70-6.10) Hemoglobin 15.3 G/DL (14.2-18.0) 12.0 G/DL (14.2-18.0) L Hematocrit 50.6 % (42.0-52.0) 37.0 % (42.0-52.0) L Mean Corpuscular Volume 70 FL (80-99) L 68 FL (80-99) L Mean Corpuscular Hemoglobin 21.2 PG (27.0-31.0) L 22.1 PG (27.0-31.0) L Mean Corpuscular Hemoglobin Concent 30.2 G/DL (32.0-36.0) L 32.5 G/DL (32.0-36.0) Red Cell Distribution Width 14.4 % (11.6-14.8) 12.6 % (11.6-14.8) Platelet Count 118 K/UL (150-450) L 125 K/UL (150-450) L Mean Platelet Volume 13.1 FL (6.5-10.1) H 16.5 FL (6.5-10.1) H Neutrophils (%) (Auto) % (45.0-75.0) 52.4 % (45.0-75.0) Lymphocytes (%) (Auto) % (20.0-45.0) 31.1 % (20.0-45.0) Monocytes (%) (Auto) % (1.0-10.0) 14.2 % (1.0-10.0) H Eosinophils (%) (Auto) % (0.0-3.0) 1.5 % (0.0-3.0) Basophils (%) (Auto) % (0.0-2.0) 0.8 % (0.0-2.0) Differential Total Cells Counted 100 Neutrophils % (Manual) 45 % (45-75) Lymphocytes % (Manual) 43 % (20-45) Monocytes % (Manual) 11 % (1-10) H Eosinophils % (Manual) 0 % (0-3) Basophils % (Manual) 1 % (0-2) Band Neutrophils 0 % (0-8) Platelet Estimate Adequate Platelet Morphology Normal Polychromasia 1+ Anisocytosis 1+ Microcytosis 1+ Sodium Level 143 MMOL/L (136-145) 140 MMOL/L (136-145) Potassium Level 4.3 MMOL/L (3.5-5.1) 4.2 MMOL/L (3.5-5.1) Chloride Level 103 MMOL/L (98-107) 106 MMOL/L (98-107) Carbon Dioxide Level 29 MMOL/L (21-32) 26 MMOL/L (21-32) Anion Gap 12 mmol/L (5-15) 8 mmol/L (5-15) Blood Urea Nitrogen 19 mg/dL (7-18) H 20 mg/dL (7-18) H Creatinine 0.8 MG/DL (0.55-1.30) 0.6 MG/DL (0.55-1.30) Estimat Glomerular Filtration Rate > 60 mL/min (>60) > 60 mL/min (>60) Glucose Level 107 MG/DL (74-106) H 86 MG/DL (74-106) Lactic Acid Level 1.70 mmol/L (0.4-2.0) Calcium Level 9.1 MG/DL (8.5-10.1) 8.2 MG/DL (8.5-10.1) L Total Bilirubin 0.4 MG/DL (0.2-1.0) Aspartate Amino Transf (AST/SGOT) 28 U/L (15-37) Alanine Aminotransferase (ALT/SGPT) 31 U/L (12-78) Alkaline Phosphatase 102 U/L (46-116) Total Protein 8.3 G/DL (6.4-8.2) H Albumin 3.6 G/DL (3.4-5.0) Globulin 4.7 g/dL Albumin/Globulin Ratio 0.8 (1.0-2.7) L Urine Color Yellow Urine Appearance Clear Urine pH 6 (4.5-8.0) Urine Specific [place] 1.015 (1.005-1.035) Urine Protein 1+ (NEGATIVE) H Urine Glucose (UA) Negative (NEGATIVE) Urine Ketones 2+ (NEGATIVE) H Urine Blood 2+ (NEGATIVE) H Urine Nitrite Negative (NEGATIVE) Urine Bilirubin Negative (NEGATIVE) Urine Urobilinogen Normal MG/DL (0.0-1.0) Urine Leukocyte Esterase 1+ (NEGATIVE) H Urine RBC 10-15 /HPF (0 - 0) H Urine WBC 5-10 /HPF (0 - 0) H Urine Squamous Epithelial Cells Occasional /LPF Urine Bacteria Occasional /HPF (NONE) Urine Mucus Few /LPF (NONE/OCC) H Microbiology Date/Time Source Procedure Growth Status 11/20/19 20:50 Blood Blood Culture - Preliminary Resulted 11/20/19 20:30 Rectum Received Height (Feet): 5 Height (Inches): 10.00 Weight (Pounds): 150 Medications Current Medications Medications (Trade) Dose Ordered Sig/Monalisa Route PRN Reason Start Time Stop Time Status Last Admin Dose Admin Acetaminophen (Tylenol) 650 mg Q4H PRN GT Mild Pain (Pain Scale 1-3) 11/21/19 11:30 12/21/19 11:29 Acetaminophen (Tylenol) 650 mg Q4H PRN ORAL FEVER, HEADACHE, MILD PAIN 11/21/19 12:00 12/21/19 11:59 Acetaminophen (Tylenol) 650 mg Q4H PRN RECTAL Temp >100.5 11/21/19 11:15 12/21/19 11:14 Al Hydroxide/Mg Hydroxide (Mylanta) 30 ml Q6HR GT 11/21/19 13:15 12/21/19 13:14 11/21/19 15:20 Albuterol Sulfate (Proventil) 2.5 mg Q6H PRN HHN Shortness of Breath 11/21/19 11:15 11/26/19 11:14 Ascorbic Acid (Vitamin C) 500 mg TWICE A DAY GT 11/21/19 18:00 12/21/19 17:59 Bisacodyl (Dulcolax) 10 mg DAILY PRN RECTAL Constipation 11/21/19 12:00 02/19/20 11:59 Dextrose (Dextrose 50%) 25 ml Q30M PRN IV Hypoglycemia 11/21/19 11:15 02/19/20 11:14 Dextrose (Dextrose 50%) 25 ml Q30M PRN IV Hypoglycemia 11/21/19 12:00 02/19/20 11:59 Dextrose (Dextrose 50%) 50 ml Q30M PRN IV Hypoglycemia 11/21/19 12:00 02/19/20 11:59 Docusate Sodium (Colace) 100 mg TWICE A DAY ORAL 11/21/19 18:00 12/21/19 17:59 Enoxaparin Sodium (Lovenox) 40 mg Q24H SUBQ 11/21/19 13:00 02/19/20 12:59 Famotidine (Pepcid) 20 mg BEDTIME ORAL 11/21/19 21:00 02/19/20 20:59 Finasteride (Proscar) 5 mg DAILY ORAL 11/22/19 09:00 02/20/20 08:59 Heparin Sodium (Porcine) (Heparin 5000 units/ml) 5,000 units EVERY 12 HOURS SUBQ 11/21/19 21:00 01/05/20 20:59 Hydromorphone HCl (Dilaudid) 1 mg Q8H PRN IVP Moderate Pain (Pain Scale 4-6) 11/21/19 11:15 11/28/19 11:14 Insulin Aspart (NovoLOG) BEFORE MEALS AND HS SUBQ 11/21/19 16:30 02/19/20 16:29 Insulin Detemir (Levemir) 6 units BEDTIME SUBQ 11/21/19 21:00 02/19/20 20:59 Levetiracetam (Keppra) 2,000 mg BID GT 11/21/19 18:00 12/21/19 17:59 Lorazepam (Ativan) 1 mg EVERY 12 HOURS PRN GT For Anxiety 11/21/19 12:00 11/28/19 11:59 Magnesium Hydroxide (Mom) 30 ml BEDTIME GT 11/21/19 21:00 12/21/19 20:59 Meropenem 500 mg/ Sodium Chloride 55 ml @ 110 mls/hr EVERY 8 HOURS IVPB 11/21/19 14:00 11/26/19 13:59 11/21/19 15:19 Metoprolol Tartrate (Lopressor) 25 mg EVERY 12 HOURS GT 11/21/19 21:00 02/19/20 20:59 Ondansetron HCl (Zofran) 4 mg Q6H PRN GT Nausea & Vomiting 4/25/20 12:00 12/21/19 11:59 Pantoprazole (Protonix) 40 mg DAILY IV 11/21/19 12:00 12/21/19 11:59 11/21/19 13:00 Polyethylene Glycol (Miralax) 17 gm DAILY PRN GT Constipation 11/21/19 12:00 12/21/19 11:59 Risperidone (RisperDAL) 1 mg DAILY GT 11/22/19 09:00 01/06/20 08:59 Temazepam (Restoril) 15 mg BEDTIME PRN ORAL Insomnia 11/21/19 12:00 11/28/19 11:59 Zinc Sulfate (Zinc Sulfate) 220 mg DAILY ORAL 11/22/19 09:00 02/20/20 08:59 Zolpidem Tartrate (Ambien) 5 mg HSPRN PRN GT Insomnia 11/21/19 11:15 11/28/19 11:14 Assessment/Plan Assessment/Plan: Abx: Meropenem 11/20- Cefepime x1 11/19 Azithromycin x1 11/19 Assessment: Pnuemonia- currently at [facility]- r/o COVID19 (resident at [facility] w/ multiple confirmed cases) -CXR: Patchy areas of mild increased hazy opacity of suspected in the right lung. This appears most prominent at the right apex. An acute infectious/ inflammatory process should be considered. There is question of a vertebral body compression fracture of the lower thoracic spine. Gram positive bacteremia- real vs contaminant -11/19 Bcx 1/2 GPC clusters Probable UTI -u/a wbc 5-10, nit neg, leuk +1 Afebrile (reported Fever [employer]) Leukopenia/pancytopenia Dm2 HTN seizure disorder dysphagia s/p GT decubitus ulcer FTT cerebral palsy COPD CVA/TIA paranoid schizophrenia non verbal SNF resident ([facility] Good) Plan: -Start empiric IV Vancomycin for gram positive bacteremia -Continue empiric Meropenem #1 pending cultures -f/u cx -Monitor CBC/CMP, temperatures -Bcx x2 -COVID 19 isolation -f/u SARS-COV2 PCR -PEG care -aspiration precautions Thank you for consulting [facility]. Will continue to follow along with you. Discussed with Dilma Richmond M.D. Nov 21, 2019 16:23
[2019-11-21] MEDS: NovoLOG Insulin Flexpen SUBQ SCH ×2 (16:30→22:23)
[2019-11-21] MEDS: Docusate 100mg cap ORAL SCH (17:17)
[2019-11-21] MEDS: Ascorbic Acid 500mg tab GT SCH (17:17)
[2019-11-21] MEDS: Vancomycin 1gm in Dextrose 275ml IVPB SCH (17:20)
[2019-11-21] MEDS: levETIRAcetam 500mg/5ml Liquid GT SCH (17:20)
--- NOTE | 2019-11-21 17:24 | NUR ---
PT Note PT eval completed. Patient is at baseline level of function. No further PT f/u treatments recommended at this time. Addendum: 11/21/19 at 1725 by GABRIEL PAINTING PT Amended: Links added.
--- NOTE | 2019-11-21 17:55 | NUR ---
NURSE NOTES: Urine culture collected and dropped to the lab; waiting for results;
--- NOTE | 2019-11-21 19:00 | Consultation ---
DATE OF CONSULTATION: 11/21/2019 PULMONARY CONSULTATION CONSULTING PHYSICIAN: Abdifatah Carmichael MD. HISTORY OF PRESENT ILLNESS: This is a 64-year-old male who came to the hospital with cough and fever. He is a [facility] resident. The patient was initially afebrile. He is also nonverbal. He has a history of psych disorder. The patient was seen and evaluated, and admitted to the hospital with history of fever, [facility] status, and cough. The patient was seen and evaluated in the ER and his white count was found to be 2.6 with normal hemoglobin. Chemistries were also unremarkable with negative urinalysis. Initial microbiology has been negative. X-ray of chest was also obtained, which had shown patchy right lung opacity, possibly pneumonia. PAST MEDICAL HISTORY: Notable for diabetes mellitus, hypertension, COPD, CVA, psych disorder. Surgeries, none reported. He also has a history of Parkinson's disorder. REVIEW OF SYSTEMS: Not obtainable. PHYSICAL EXAMINATION: GENERAL: Reveals an older 64-year-old male. He is nonverbal. HEENT: Unremarkable. LUNGS: Clear breath sounds bilaterally. ABDOMEN: Soft. EXTREMITIES: There is no edema. NEUROLOGIC: Nonfocal. LABORATORY AND DIAGNOSTIC DATA: Lab testing discussed above. Imaging discussed above. IMPRESSION: 1. Probable pneumonia. 2. Psych disorder. 3. Diabetes mellitus. 4. Hypertension. 5. Parkinson's. DISCUSSION: Admit to the hospital. Continue home medications. We will provide oxygen and pulmonary hygiene. Currently, the patient is saturating well on nasal oxygen 2 L. We will check COVID-19. Broad-spectrum antibiotics per ID. We will follow carefully. Abdifatah Carmichael M.D. DR: Moy JOB#: [id number] CC:
--- NOTE | 2019-11-21 19:31 | NUR ---
HAND-OFF: Report given to EDU Snow.
--- NOTE | 2019-11-21 19:35 | NUR ---
NURSE NOTES: Patient in bed, awake and confused. No signs of distress or SOB. IV intact and patent. PUI COVID. Condom cath. Bed locked and in lowest position. Bed alarm on. Will continue to monitor the patient.
[2019-11-21] MEDS: Milk of Magnesia 30ml Ud GT SCH (22:23)
[2019-11-21] MEDS: Heparin 5000 units/ml inj SUBQ SCH (22:23)
[2019-11-21] MEDS: Levemir Flexpen SUBQ SCH (22:23)
[2019-11-22] VITALS: BP 92/60
[2019-11-22] MEDS: Vancomycin 1gm in Dextrose 275ml IVPB SCH ×3 (01:09→22:19)
[2019-11-22 04:00] VITALS: BP 95/52
--- NOTE | 2019-11-22 04:14 | Consultation ---
DATE OF CONSULTATION: 11/21/2019 HISTORY OF PRESENT ILLNESS: This is a 64-year-old male patient who is actually admitted to the hospital secondary to cough and fever, rule out COVID-19 infection. He is very confused and disorganized, but he has overlying diagnosis of paranoid schizophrenia so that is why there was a daily psychiatric consultation requested for this patient. I saw and assessed him at bedside. He has a very flat affect. He seems to get agitated irritability, agitation, and mood lability. He is a poor historian, so lot of the information had to be obtained through chart review. He continues to have poor insight into his medical and psychiatric condition. PAST MEDICAL HISTORY: Includes diabetes, decubitus ulcers, failure to thrive, seizure disorder, acute renal failure. ALLERGIES: He has no known drug allergies. MEDICATIONS: Psychotropic medications on admission, he is on Risperdal 1 mg daily and Ativan as needed. SUBSTANCE ABUSE HISTORY: Denies. PAIN ASSESSMENT: 10/05 pain. DEVELOPMENTAL PROBLEMS: Denies. FAMILY PSYCHIATRIC HISTORY: Unknown. SOCIAL HISTORY: The patient is living in [facility], financially supported by [facility] and Medicare. No legal problems. STRENGTHS: He is motivated to get better . PSYCHIATRIC HISTORY: History of paranoid schizophrenia. He has had multiple psychiatric [place] [facility] as well. WEAKNESSES: Impulsive minimal support system. MENTAL STATUS EXAMINATION: This is a 64-year-old male. His appearance is disheveled. His attitude is irritable and agitated. Affect flat. Intellect poor because he does know current events, does not know last four presidents. Mood, depressed and anxious. Motor activity, psychomotor agitation. Attention span is poor because he cannot do serial 7's, spell world backwards, time situation. Speech is nonsensical. Thought process, disorganized and illogical. Thought content, he has auditory hallucinations, paranoia. Perception is poor because he has perceptual disorders such as auditory hallucinations and paranoid delusions. Abstract reasoning is poor because he does not understand proverbs, only has concrete thinking. Insight is poor because he does not recognize his psychiatric condition. Judgment is poor because he cannot make medical decision for himself. DIAGNOSES: 1. Paranoid schizophrenia with acute exacerbation, no secondary. 2. Medical - Diabetes, decubitus ulcers, failure to thrive, seizure disorder, acute renal failure. 3. Psychosocial stressors, financial. 4. Functional impairment, severe. PLAN: I am going to treat this patient with a medication regimen consisting of Risperdal at a dose of 1 mg p.o. daily to reduce agitation and psychosis and I am also going to treat him with mg Risperdal per G-tube daily and also Ativan 1 mg per G-tube q. 6 hours p.r.n. anxiety and agitation. Again, 20 minutes of insight-oriented psychotherapy will help him recognize and understand his medical and cognitive impairment so that he will have better knowledge and understanding on the unit and better impulse control. Chart reviewed and discussed with staff. Seen and assessed at bedside. Enrrique Escudero M.D. DR: LEANDRA JOB#: [id number] CC:
[2019-11-22 06:42] LABS: HEMATOCRIT 38.5 % (42.0-52.0); HEMOGLOBIN 12.4 G/DL (14.2-18.0); MEAN CORPUSCULAR VOLUME 67 FL (80-99); PLATELET COUNT 134 K/UL (150-450); RED BLOOD COUNT 5.72 M/UL (4.70-6.10); RED CELL DISTRIBUTION WIDTH 12.5 % (11.6-14.8)
[2019-11-22 07:01] LABS: ANION GAP 11 mmol/L (5-15); BLOOD UREA NITROGEN 14 mg/dL (7-18); CALCIUM 8.1 MG/DL (8.5-10.1); CARBON DIOXIDE 23 MMOL/L (21-32); CHLORIDE 107 MMOL/L (98-107); CREATININE 0.7 MG/DL (0.55-1.30); POTASSIUM 3.8 MMOL/L (3.5-5.1); SODIUM 141 MMOL/L (136-145)
--- NOTE | 2019-11-22 07:10 | Consultation ---
History of Present Illness General Chief Complaint: Fever Present Illness Allergies: Coded Allergies: NO KNOWN DRUG ALLERGIES (Unverified Allergy, Unknown, 07/16/19) Medication History Scheduled Al Hydroxide/mg Hydroxide (Mag-Al Liquid), 30 ML GT Q6HR, (Reported) Ascorbic Acid* (Vitamin C*), 500 MG GT TWICE A DAY, (Reported) Clotrimazole* (Lotrimin*), 1 APPLIC TOPIC TWICE A DAY, (Reported) Docusate Sodium (Docusate Sodium), 100 MG GT TWICE A DAY, (Reported) Famotidine (Pepcid), 20 MG ORAL BEDTIME, (Reported) Finasteride* (Proscar*), 5 MG GT DAILY, (Reported) Heparin Sod (Porcine) (Heparin Sodium*), 5,000 UNITS SUBQ EVERY 12 HOURS, ( Reported) Insulin Detemir (Levemir Flextouch), 15 UNIT SQ ACBREAKFAST, (Reported) Lacosamide (Vimpat), 100 MG GT EVERY 12 HOURS, (Reported) Levetiracetam* (Levetiracetam*), 2,000 MG GT BID, (Reported) Magnesium Hydroxide (Milk of Magnesia), 30 ML GT BEDTIME, (Reported) Meropenem (Meropenem), 500 MG IV Q8HR, (Reported) Metoprolol Tartrate (Metoprolol Tartrate), 25 MG GT EVERY 12 HOURS, (Reported) Metoprolol Tartrate* (Metoprolol Tartrate*), 25 MG GT EVERY 12 HOURS, (Reported) Metoprolol Tartrate* (Metoprolol Tartrate*), 12.5 MG ORAL EVERY 12 HOURS, ( Reported) Multivitamin Liquid* (Multi-Delyn*), 5 ML GT DAILY, (Reported) Omeprazole (Omeprazole), 20 MG GT DAILY, (Reported) Potassium Chloride (Potassium Chloride), 40 MEQ GT BID, (Reported) Ranitidine Hcl* (Zantac*), 150 MG GT BID, (Reported) Risperidone* (Risperdal*), 1 MG GT DAILY, (Reported) Sennosides/Docusate Sodium (Senna Laxative Tablet), 2 EACH GT QHS, (Reported) Valproate Sodium (Valproic Acid), 750 MG GT EVERY 12 HOURS, (Reported) Zinc Sulfate (Zinc Sulfate*), 220 MG ORAL DAILY, (Reported) Scheduled PRN Acetaminophen* (Acetaminophen 325MG Tablet*), 650 MG GT Q4H PRN for Fever/ Headache/Mild Pain, (Reported) Albuterol Sulfate* (Albuterol Sulfate Hhn*), 3 ML INH Q4H PRN for Shortness of Breath, (Reported) Bisacodyl (Dulcolax), 10 MG RC DAILY PRN for Constipation, (Reported) Dextrose 50 % In Water (Dextrose 50%-Water Vial), 50 ML IV for Hypoglycemia, ( Reported) Glucagon (Glucagen), 1 MG IJ NEEDED PRN for Hypoglycemia, (Reported) Ipratropium/Albuterol Sulfate (DuoNeb 0.5-3(2.5)mg/3ml), 3 ML HHN Q4HR PRN for Shortness of Breath, (Reported) Lorazepam* (Lorazepam*), 1 MG GT EVERY 12 HOURS PRN for For Anxiety, (Reported) Morphine Sulfate* (Morphine Sulfate*), 2 MG IVP Q4HR PRN for For Pain, (Reported ) Na Phos,M-B/Na Phos,Di-Ba (Fleet Enema), 133 ML RC DAILY PRN for Constipation, ( Reported) Na Phos,M-B/Na Phos,Di-Ba* (Fleet Enema*), 133 ML RECTAL DAILY PRN for Constipation, (Reported) Nitroglycerin (Nitroglycerin), 0.4 MG SL q5mns x three doses PRN for chest pain, (Reported) Ondansetron* (Zofran*), 4 MG GT Q6H PRN for Nausea & Vomiting, (Reported) Polyethylene Glycol 3350* (Miralax*), 17 GM GT DAILY PRN for Constipation, ( Reported) Prochlorperazine Edisylate* (Compazine*), 10 MG IVP Q6H PRN for Nausea & Vomiting, (Reported) Temazepam* (Restoril*), 15 MG ORAL BEDTIME PRN for Insomnia, (Reported) Miscellaneous Medications Insulin Aspart (Novolog Flexpen), (Reported) Lacosamide (Vimpat), 10 MG GT, (Reported) Lacosamide (Vimpat), 100 MG GT, (Reported) Magnesium Hydroxide* (Milk Of Magnesia*), 30 ML GT, (Reported) Valproate Sodium (Valproic Acid), 500 MG GT, (Reported) Water For Irrigation,Sterile (Water), 1,000 ML IR, (Reported) Zinc Oxide (Zinc Oxide), 1 APPLIC TOPIC, (Reported) [insulin novolog], (Reported) Patient History Healthcare decision maker Resuscitation status Full Code Advanced Directive on File Physical Exam Last 24 Hour Vital Signs Date Time Temp Pulse Resp B/P (MAP) Pulse Ox O2 Delivery O2 Flow Rate FiO2 11/22/19 04:00 98.2 93 18 95/52 (66) 94 11/22/19 00:00 99.1 95 16 92/60 (71) 94 11/21/19 22:23 110 133/66 11/21/19 21:00 Room Air 11/21/19 20:00 98.2 110 20 133/66 (88) 95 11/21/19 16:47 Room Air 11/21/19 16:00 97.9 103 20 99/64 (76) 93 11/21/19 12:00 99.1 95 18 99/67 (78) 96 11/21/19 10:02 97.7 89 17 96/59 (71) 93 11/21/19 07:06 86 16 103/71 100 Room Air Intake and Output 11/21/19 11/22/19 19:00 07:00 Intake Total 867.416 ml Output Total 450 ml Balance 417.416 ml Intake IV Total 867.416 ml Output Urine Total 450 ml # Voids 3 # Bowel Movements 1 2 Laboratory Tests Test 11/22/19 06:30 White Blood Count 3.0 K/UL (4.8-10.8) L Red Blood Count 5.72 M/UL (4.70-6.10) Hemoglobin 12.4 G/DL (14.2-18.0) L Hematocrit 38.5 % (42.0-52.0) L Mean Corpuscular Volume 67 FL (80-99) L Mean Corpuscular Hemoglobin 21.6 PG (27.0-31.0) L Mean Corpuscular Hemoglobin Concent 32.1 G/DL (32.0-36.0) Red Cell Distribution Width 12.5 % (11.6-14.8) Platelet Count 134 K/UL (150-450) L Mean Platelet Volume 11.0 FL (6.5-10.1) H Neutrophils (%) (Auto) % (45.0-75.0) Lymphocytes (%) (Auto) % (20.0-45.0) Monocytes (%) (Auto) % (1.0-10.0) Eosinophils (%) (Auto) % (0.0-3.0) Basophils (%) (Auto) % (0.0-2.0) Neutrophils % (Manual) Pending Lymphocytes % (Manual) Pending Platelet Estimate Pending Platelet Morphology Pending Activated Partial Thromboplast Time Pending Sodium Level Pending Potassium Level Pending Chloride Level Pending Carbon Dioxide Level Pending Blood Urea Nitrogen Pending Creatinine Pending Estimat Glomerular Filtration Rate Pending Glucose Level Pending Calcium Level Pending Microbiology Date/Time Source Procedure Growth Status 11/21/19 17:45 Urine,Ureter/Kidney Urine Culture - Preliminary NO GROWTH Resulted Height (Feet): 5 Height (Inches): 10.00 Weight (Pounds): 150 Medications Current Medications Medications (Trade) Dose Ordered Sig/Monalisa Route PRN Reason Start Time Stop Time Status Last Admin Dose Admin Acetaminophen (Tylenol) 650 mg Q4H PRN GT Mild Pain (Pain Scale 1-3) 11/21/19 11:30 12/21/19 11:29 Acetaminophen (Tylenol) 650 mg Q4H PRN ORAL FEVER, HEADACHE, MILD PAIN 11/21/19 12:00 12/21/19 11:59 Acetaminophen (Tylenol) 650 mg Q4H PRN RECTAL Temp >100.5 11/21/19 11:15 12/21/19 11:14 Al Hydroxide/Mg Hydroxide (Mylanta) 30 ml Q6HR GT 11/21/19 13:15 12/21/19 13:14 11/22/19 01:06 Albuterol Sulfate (Proventil) 2.5 mg Q6H PRN HHN Shortness of Breath 11/21/19 11:15 11/26/19 11:14 Ascorbic Acid (Vitamin C) 500 mg TWICE A DAY GT 11/21/19 18:00 12/21/19 17:59 11/21/19 17:17 Bisacodyl (Dulcolax) 10 mg DAILY PRN RECTAL Constipation 11/21/19 12:00 02/19/20 11:59 Dextrose (Dextrose 50%) 25 ml Q30M PRN IV Hypoglycemia 11/21/19 12:00 02/19/20 11:59 Dextrose (Dextrose 50%) 50 ml Q30M PRN IV Hypoglycemia 11/21/19 12:00 02/19/20 11:59 Docusate Sodium (Colace) 100 mg TWICE A DAY ORAL 11/21/19 18:00 12/21/19 17:59 11/21/19 17:17 Enoxaparin Sodium (Lovenox) 40 mg Q24H SUBQ 11/21/19 13:00 02/19/20 12:59 Famotidine (Pepcid) 20 mg BEDTIME ORAL 11/21/19 21:00 02/19/20 20:59 11/21/19 22:22 Finasteride (Proscar) 5 mg DAILY ORAL 11/22/19 09:00 02/20/20 08:59 Heparin Sodium (Porcine) (Heparin 5000 units/ml) 5,000 units EVERY 12 HOURS SUBQ 11/21/19 21:00 01/05/20 20:59 Hydromorphone HCl (Dilaudid) 1 mg Q8H PRN IVP Moderate Pain (Pain Scale 4-6) 11/21/19 11:15 11/28/19 11:14 Insulin Aspart (NovoLOG) BEFORE MEALS AND HS SUBQ 11/21/19 16:30 02/19/20 16:29 Insulin Detemir (Levemir) 6 units BEDTIME SUBQ 11/21/19 21:00 02/19/20 20:59 Levetiracetam (Keppra) 2,000 mg BID GT 11/21/19 18:00 12/21/19 17:59 11/21/19 17:20 Lorazepam (Ativan) 1 mg Q6H PRN GT For Anxiety 11/21/19 16:00 11/28/19 15:59 Magnesium Hydroxide (Mom) 30 ml BEDTIME GT 11/21/19 21:00 12/21/19 20:59 Meropenem 500 mg/ Sodium Chloride 55 ml @ 110 mls/hr EVERY 8 HOURS IVPB 11/21/19 14:00 11/26/19 13:59 11/21/19 22:23 Metoprolol Tartrate (Lopressor) 25 mg EVERY 12 HOURS GT 11/21/19:00 02/19/20 20:59 11/21/19 22:23 Ondansetron HCl (Zofran) 4 mg Q6H PRN GT Nausea & Vomiting 11/21/19 12:00 12/21/19 11:59 Pantoprazole (Protonix) 40 mg DAILY IV 11/21/19 12:00 12/21/19 11:59 11/21/19 13:00 Polyethylene Glycol (Miralax) 17 gm DAILY PRN GT Constipation 11/21/19 12:00 12/21/19 11:59 Risperidone (RisperDAL) 1 mg DAILY GT 11/22/19 09:00 01/06/20 08:59 Temazepam (Restoril) 15 mg BEDTIME PRN ORAL Insomnia 11/21/19 12:00 11/28/19 11:59 Vancomycin HCl (Vanco rx to dose) 1 ea DAILY PRN MISC Per rx protocol 11/21/19 16:15 12/21/19 16:14 Vancomycin HCl 1 gm/Dextrose 275 ml @ 183.708 mls/hr Q8H IVPB 11/21/19 18:00 11/26/19 17:59 11/22/19 01:09 Zinc Sulfate (Zinc Sulfate) 220 mg DAILY ORAL 11/22/19 09:00 02/20/20 08:59 Zolpidem Tartrate (Ambien) 5 mg HSPRN PRN GT Insomnia 11/21/19 11:15 11/28/19 11:14 Assessment/Plan Assessment/Plan: Hematology Consultation REQ MD: Donaldo Johnson RFC: Pancytopenia DOS: 11/22/19 HPI Called by Alex 64-year-old male presents ED for evaluation of cough and fever. Coming from [facility] facility. X1 day. Afebrile in triage. No coughing here. Patient nonverbal. History of paranoid schizophrenia. No signs of distress on arrival. No other aggravating relieving factors. No other associated symptoms , has been started on abx, reviewed, pulm and id recs and heme consulted Coded Allergies: NO KNOWN DRUG ALLERGIES (Unverified Allergy, Unknown, 07/16/19) COVID-19 Screening Contact w/high risk pt: Yes Recent Travel to affected area: No Experienced COVID-19 symptoms?: Yes COVID-19 symptoms experienced: Fever (T>100.4F or >38C), Cough Patient History Past Medical History: DM, HTN, COPD, CVA/TIA, psych hx Past Surgical History: none Pertinent Family History: none Social History: Denies: smoking, alcohol use, drug use Immunizations: UTD Reviewed Nursing Documentation: PMH: Agreed; PSxH: Agreed Nursing Documentation-PMH Hx Cardiac Problems: Yes Hx Hypertension: Yes Hx Pacemaker: No Hx Asthma: No Hx COPD: Yes Hx Diabetes: Yes Hx Cancer: No Hx Gastrointestinal Problems: Yes Hx Dialysis: No - BPH Hx Neurological Problems: Yes Hx Cerebrovascular Accident: Yes Hx Parkinson's Disease: Yes Hx Seizures: Yes Hx Epilepsy: Yes Hx Cerebral Palsy: Yes Hx Speech Problem: Yes Hx Aphasia: Yes Hx Weakness: Yes Review of Systems All Other Systems: limited Physical Exam Vitals: reviewed, normal Gen: no apparent distress, GCS 15, non-toxic, other - nonverbal Heent; nc, at, eomi Resp: chest non-tender, lungs clear, normal breath sounds, speaking full sentences CV: rrr, no mgr Gi: normal bs Neuro: nonverbal Lymphatic: no adenopathy Assessment and Recs # Pancytopenia r/o underlying ifnection, may be covid19 related, but need results first, also may be pna related --> hepatitis and hiv are negative --> us of the abdomen has been ordered --> p smear is pending --> remains on abx as per id --> transfuse, given plt as needed # Pneumonia, poa --> CXR - R sided lobe infiltrate --> remains on abx --> EKG - NSR no acute ischemic changes interpreted by me # Psych disorder. --> per Alondra Escudero # Diabetes mellitus. # Hypertension. # Parkinson's. # Dvt ppx heparin sq Appreciate consultation and dw Rn Afshin Curry MD Nov 22, 2019 07:10
[2019-11-22] MEDS: Meropenem 500mg in NS 55ml IVPB SCH ×3 (07:34→22:18)
[2019-11-22] MEDS: NovoLOG Insulin Flexpen SUBQ SCH ×3 (07:38→21:00)
[2019-11-22 08:00] VITALS: BP 95/59
--- NOTE | 2019-11-22 08:34 | General Progress Note ---
Assessment/Plan Problem List: (1) Suspected COVID-19 virus infection ICD Codes: Z20.828 - Contact with and (suspected) exposure to other viral communicable diseases SNOMED: 620670622 (2) Pancytopenia ICD Codes: D61.818 - Other pancytopenia SNOMED: 764305754 (3) Fever ICD Codes: R50.9 - Fever, unspecified SNOMED: 160507475 (4) Cough ICD Codes: R05 - Cough SNOMED: 23018687 (5) Anemia ICD Codes: D64.9 - Anemia, unspecified SNOMED: 757161687 (6) Diabetes ICD Codes: E11.9 - Diabetes SNOMED: 91579812 (7) PEG (percutaneous endoscopic gastrostomy) adjustment/replacement/removal ICD Codes: Z43.1 - Encounter for attention to gastrostomy SNOMED: 271579293 (8) Decubitus ulcer ICD Codes: L89.90 - Pressure ulcer of unspecified site, unspecified stage SNOMED: 213172506 (9) Acute renal failure ICD Codes: N17.9 - Acute renal failure SNOMED: 26477453 (10) Seizure ICD Codes: R56.9 - Seizure SNOMED: 89062568 (11) Weak ICD Codes: R53.1 - Weakness SNOMED: 70453336 (12) UTI (lower urinary tract infection) ICD Codes: N39.0 - UTI (lower urinary tract infection) SNOMED: 9952346 Status: unchanged Assessment/Plan: o2 pulm tx abx pt diet eval cbc bmp am Subjective Constitutional: Reports: weakness Allergies: Coded Allergies: NO KNOWN DRUG ALLERGIES (Unverified Allergy, Unknown, 07/16/19) All Systems: reviewed and negative except above Subjective sleepy calm Objective Last 24 Hour Vital Signs Date Time Temp Pulse Resp B/P (MAP) Pulse Ox O2 Delivery O2 Flow Rate FiO2 11/22/19 08:05 Room Air 11/22/19 04:00 98.2 93 18 95/52 (66) 94 11/22/19 00:00 99.1 95 16 92/60 (71) 94 11/21/19 22:23 110 133/66 11/21/19 21:00 Room Air 11/21/19 20:00 98.2 110 20 133/66 (88) 95 11/21/19 16:47 Room Air 11/21/19 16:00 97.9 103 20 99/64 (76) 93 11/21/19 12:00 99.1 95 18 99/67 (78) 96 11/21/19 10:02 97.7 89 17 96/59 (71) 93 11/21/19 09:45 98.0 81 18 105/74 99 Room Air Intake and Output 11/21/19 11/22/19 19:00 07:00 Intake Total 867.416 ml Output Total 450 ml Balance 417.416 ml Intake IV Total 867.416 ml Output Urine Total 450 ml # Voids 3 # Bowel Movements 1 2 Laboratory Tests 11/22/19 06:30: White Blood Count 3.0L, Red Blood Count 5.72, Hemoglobin 12.4L, Hematocrit 38.5L , Mean Corpuscular Volume 67L, Mean Corpuscular Hemoglobin 21.6L, Mean Corpuscular Hemoglobin Concent 32.1, Red Cell Distribution Width 12.5, Platelet Count 134L, Mean Platelet Volume 11.0H, Neutrophils (%) (Auto) , Lymphocytes (% ) (Auto) , Monocytes (%) (Auto) , Eosinophils (%) (Auto) , Basophils (%) (Auto) , Neutrophils % (Manual) [Pending], Lymphocytes % (Manual) [Pending], Platelet Estimate [Pending], Platelet Morphology [Pending], Activated Partial Thromboplast Time 33, Sodium Level 141, Potassium Level 3.8, Chloride Level 107 , Carbon Dioxide Level 23, Anion Gap 11, Blood Urea Nitrogen 14, Creatinine 0.7 , Estimat Glomerular Filtration Rate > 60, Glucose Level 85, Calcium Level 8.1L Height (Feet): 5 Height (Inches): 10.00 Weight (Pounds): 150 General Appearance: lethargic EENT: normal ENT inspection Neck: normal alignment Cardiovascular: regular rhythm, regularly irregular Respiratory/Chest: no respiratory distress, no accessory muscle use Extremities: normal inspection Skin: normal pigmentation Donaldo Johnson DO Nov 22, 2019 08:34
[2019-11-22] MEDS: Heparin 5000 units/ml inj SUBQ SCH ×2 (09:00→21:00)
[2019-11-22] MEDS: Pantoprazole Inj IV SCH (09:26)
[2019-11-22] MEDS: Zinc Sulfate 220mg cap ORAL SCH (09:26)
[2019-11-22] MEDS: Ascorbic Acid 500mg tab GT SCH ×2 (09:27→22:17)
[2019-11-22] MEDS: Docusate 100mg cap ORAL SCH ×2 (09:27→18:00)
[2019-11-22] MEDS: levETIRAcetam 500mg/5ml Liquid GT SCH ×2 (09:40→22:17)
[2019-11-22 12:00] VITALS: BP 100/62
--- NOTE | 2019-11-22 12:23 | Pulmonology Progress Note ---
Assessment/Plan Assessment/Plan IMPRESSION: 1. Probable pneumonia. 2. Psych disorder. 3. Diabetes mellitus. 4. Hypertension. 5. Parkinson's. 6. Bacteremia; likely contaminant DISCUSSION: Continue home medications. Continue to provide oxygen and pulmonary hygiene. Currently, the patient is saturating well on nasal oxygen 2 L. Await COVID-19. Broad-spectrum antibiotics per ID. I will follow carefully. Abdifatah Carmichael M.D. Subjective Interval Events: None new Constitutional: Reports: no symptoms HEENT: Repors: no symptoms Respiratory: Reports: no symptoms Cardiovascular: Reports: no symptoms Gastrointestinal/Abdominal: Reports: no symptoms Genitourinary: Reports: no symptoms Allergies: Coded Allergies: NO KNOWN DRUG ALLERGIES (Unverified Allergy, Unknown, 07/16/19) All Systems: reviewed and negative except above Objective Last 24 Hour Vital Signs Date Time Temp Pulse Resp B/P (MAP) Pulse Ox O2 Delivery O2 Flow Rate FiO2 11/22/19 09:45 93 95/59 11/22/19 08:05 Room Air 11/22/19 08:00 99.2 93 17 95/59 (71) 95 11/22/19 04:00 98.2 93 18 95/52 (66) 94 11/22/19 00:00 99.1 95 16 92/60 (71) 94 11/21/19 22:23 110 133/66 11/21/19 21:00 Room Air 11/21/19 20:00 98.2 110 20 133/66 (88) 95 11/21/19 16:47 Room Air 11/21/19 16:00 97.9 103 20 99/64 (76) 93 Intake and Output 11/21/19 11/22/19 19:00 07:00 Intake Total 867.416 ml Output Total 450 ml Balance 417.416 ml Intake IV Total 867.416 ml Output Urine Total 450 ml # Voids 3 # Bowel Movements 1 2 General Appearance: no acute distress HEENT: normocephalic Respiratory/Chest: chest wall non-tender, lungs clear Cardiovascular: normal peripheral pulses Abdomen: normal bowel sounds Microbiology Date/Time Source Procedure Growth Status 11/20/19 20:50 Blood Blood Culture - Preliminary Staphylococcus Sp Coag Neg Resulted 11/20/19 20:35 Blood Blood Culture - Preliminary Gram Positive Cocci Resulted 11/21/19 17:45 Urine,Ureter/Kidney Urine Culture - Preliminary NO GROWTH Resulted 11/20/19 20:30 Rectum Received Laboratory Tests 11/22/19 06:30: White Blood Count 3.0L, Red Blood Count 5.72, Hemoglobin 12.4L, Hematocrit 38.5L , Mean Corpuscular Volume 67L, Mean Corpuscular Hemoglobin 21.6L, Mean Corpuscular Hemoglobin Concent 32.1, Red Cell Distribution Width 12.5, Platelet Count 134L, Mean Platelet Volume 11.0H, Neutrophils (%) (Auto) , Lymphocytes (% ) (Auto) , Monocytes (%) (Auto) , Eosinophils (%) (Auto) , Basophils (%) (Auto) , Differential Total Cells Counted 100, Neutrophils % (Manual) 55, Lymphocytes % (Manual) 31, Monocytes % (Manual) 12H, Eosinophils % (Manual) 1, Basophils % ( Manual) 1, Band Neutrophils 0, Platelet Estimate DecreasedL, Platelet Morphology Normal, Anisocytosis 1+, Microcytosis 3+, Activated Partial Thromboplast Time 33, Sodium Level 141, Potassium Level 3.8, Chloride Level 107 , Carbon Dioxide Level 23, Anion Gap 11, Blood Urea Nitrogen 14, Creatinine 0.7 , Estimat Glomerular Filtration Rate > 60, Glucose Level 85, Calcium Level 8.1L Current Medications Medications (Trade) Dose Ordered Sig/Monalisa Route PRN Reason Start Time Stop Time Status Last Admin Dose Admin Acetaminophen (Tylenol) 650 mg Q4H PRN GT Mild Pain (Pain Scale 1-3) 11/21/19 11:30 12/21/19 11:29 Acetaminophen (Tylenol) 650 mg Q4H PRN ORAL FEVER, HEADACHE, MILD PAIN 11/21/19 12:00 12/21/19 11:59 Acetaminophen (Tylenol) 650 mg Q4H PRN RECTAL Temp >100.5 11/21/19 11:15 12/21/19 11:14 Al Hydroxide/Mg Hydroxide (Mylanta) 30 ml Q6HR GT 11/21/19 13:15 12/21/19 13:14 11/22/19 11:04 Albuterol Sulfate (Proventil) 2.5 mg Q6H PRN HHN Shortness of Breath 11/21/19 11:15 11/26/19 11:14 Ascorbic Acid (Vitamin C) 500 mg TWICE A DAY GT 11/21/19 18:00 12/21/19 17:59 11/22/19 09:27 Bisacodyl (Dulcolax) 10 mg DAILY PRN RECTAL Constipation 11/21/19 12:00 02/19/20 11:59 Dextrose (Dextrose 50%) 25 ml Q30M PRN IV Hypoglycemia 11/21/19 12:00 02/19/20 11:59 Dextrose (Dextrose 50%) 50 ml Q30M PRN IV Hypoglycemia 11/21/19 12:00 02/19/20 11:59 Docusate Sodium (Colace) 100 mg TWICE A DAY ORAL 11/21/19 18:00 12/21/19 17:59 11/22/19 09:27 Enoxaparin Sodium (Lovenox) 40 mg Q24H SUBQ 11/21/19 13:00 02/19/20 12:59 Famotidine (Pepcid) 20 mg BEDTIME ORAL 11/21/19 21:00 02/19/20 20:59 11/21/19 22:22 Finasteride (Proscar) 5 mg DAILY ORAL 11/22/19 09:00 02/20/20 08:59 11/22/19 09:27 Heparin Sodium (Porcine) (Heparin 5000 units/ml) 5,000 units EVERY 12 HOURS SUBQ 11/21/19 21:00 01/05/20 20:59 Hydromorphone HCl (Dilaudid) 1 mg Q8H PRN IVP Moderate Pain (Pain Scale 4-6) 11/21/19 11:15 11/28/19 11:14 Insulin Aspart (NovoLOG) BEFORE MEALS AND HS SUBQ 11/21/19 16:30 02/19/20 16:29 11/22/19 11:06 Insulin Detemir (Levemir) 6 units BEDTIME SUBQ 11/21/19 21:00 02/19/20 20:59 Levetiracetam (Keppra) 2,000 mg BID GT 11/21/19 18:00 12/21/19 17:59 11/22/19 09:40 Lorazepam (Ativan) 1 mg Q6H PRN GT For Anxiety 11/21/19 16:00 11/28/19 15:59 Magnesium Hydroxide (Mom) 30 ml BEDTIME GT 11/21/19 21:00 12/21/19 20:59 Meropenem 500 mg/ Sodium Chloride 55 ml @ 110 mls/hr EVERY 8 HOURS IVPB 11/21/19 14:00 11/26/19 13:59 11/22/19 07:34 Metoprolol Tartrate (Lopressor) 25 mg EVERY 12 HOURS GT 11/21/19 21:00 02/19/20 20:59 11/21/19 22:23 Ondansetron HCl (Zofran) 4 mg Q6H PRN GT Nausea & Vomiting 11/21/19 12:00 12/21/19 11:59 Pantoprazole (Protonix) 40 mg DAILY IV 11/21/19 12:00 12/21/19 11:59 11/22/19 09:26 Polyethylene Glycol (Miralax) 17 gm DAILY PRN GT Constipation 11/21/19 12:00 12/21/19 11:59 Risperidone (RisperDAL) 1 mg DAILY GT 11/22/19 09:00 01/06/20 08:59 11/22/19 09:26 Temazepam (Restoril) 15 mg BEDTIME PRN ORAL Insomnia 11/21/19 12:00 11/28/19 11:59 Vancomycin HCl (Vanco rx to dose) 1 ea DAILY PRN MISC Per rx protocol 11/21/19 16:15 12/21/19 16:14 Vancomycin HCl 1 gm/Dextrose 275 ml @ 183.708 mls/hr Q8H IVPB 11/21/19 18:00 11/26/19 17:59 11/22/19 09:27 Zinc Sulfate (Zinc Sulfate) 220 mg DAILY ORAL 11/22/19 09:00 02/20/20 08:59 11/22/19 09:26 Zolpidem Tartrate (Ambien) 5 mg HSPRN PRN GT Insomnia 11/21/19 11:15 11/28/19 11:14 Abdifatah Carmichael MD Nov 22, 2019 12:23
--- NOTE | 2019-11-22 12:24 | NUR ---
RD ASSESSMENT & RECOMMENDATIONS SEE CARE ACTIVITY FOR COMPLETE ASSESSMENT DAILY ESTIMATED NEEDS: Needs based on DM, 69kg 25-30 kcals/kg 8866-0165 total kcals 1.25-1.5 g protein/kg 86-104 g total protein 25-30 mL/kg 7192-1712 total fluid mLs NUTRITION DIAGNOSIS: Swallowing difficulty R/T dysphagia, hx CVA as evidenced by pt h/o PEG, now used for meds, pt on oral diet. CURRENT DIET:CCHO high PO DIET RECOMMENDATIONS: With poor po intake, rec liberalized Regular diet ADDITIONAL RECOMMENDATIONS: 1) Calibrated bed scale for accurate wts 2) Poor po intake, consider GT feeds temporarily 3) CLERK CARRIER eval for appropriate texture-> H/o GT 4) F/up w/ WC eval 5) Monitor BG w/ poor po intake, consider D5 to prevent hypoglycemia . .
[2019-11-22] MEDS: Enoxaparin 40mg Inj SUBQ SCH (12:27)
--- NOTE | 2019-11-22 13:03 | NUR ---
HAND-OFF: Report given to EDU Schmidt.
--- NOTE | 2019-11-22 16:45 | Progress Note ---
NOTE: NO DICTATION Enrrique Escudero M.D. DR: VANITA JOB#: [id number] CC:
--- NOTE | 2019-11-22 16:59 | Progress Note ---
DATE: 11/22/2019 SUBJECTIVE: This is a 64-year-old patient, still very confused, disorganized, flat affect, very disorganized. Cognition has declined below his baseline. He is here in the hospital to fever, cough, rule out COVID-19. MENTAL STATUS EXAMINATION: This is a 64-year-old male. Appearance is disheveled. Attitude is irritable and agitated. Affect is guarded and restricted. Intellect, poor. Mood depressed and anxious. Motor activity, psychomotor agitation. Attention span is poor. Orientation x2. Speech is low volume and slurred. Thought process, disorganized and illogical. Insight and judgement is poor. DIAGNOSIS: Paranoid schizophrenia with acute exacerbation. PLAN: Treat him with a medication regimen consisting of Risperdal 1 mg per G-tube daily and Ativan 1 mg every 6 hours p.r.n. anxiety and agitation. A 20 minutes of insight-oriented psychotherapy to help him recognize his psychiatric and medical condition so that he has better impulse control and understanding on the unit and better recognition of his psychiatric and condition to improve his mood. Chart reviewed and discussed with staff. The patient was seen and assessed in the room. A 20-minutes of insight-oriented psychotherapy provided. Enrrique Escudero M.D. DR: Divya JOB#: [id number] CC:
--- NOTE | 2019-11-22 19:20 | NUR ---
NURSE NOTES: RECEIVED REPORT FROM CHARGE NURSE. PATIENT IS ASLEEP, ON ROOM AIR, NO ACUTE DISTRESS NOTED. CONDOM CATH IN PLACE, DRAINING WELL, NO IRRITATIONS NOTED. WOUND DRESSINGS INTACT AND DRY. IV ON RIGHT HAND IS INTACT AND PATENT. G-TUBE IN PLACE, FLUSHING WELL, WILL USE FOR MEDICATION ADMINISTRATION. ASPIRATION PRECAUTION, HOB >30. BED IS LOCKED AND LOW, BED ALARMS NOTED. SIDE RAILS UPX2 AND CALL LIGHT IS WITHIN REACH. WILL CONTINUE TO MONITOR.
--- NOTE | 2019-11-22 19:30 | NUR ---
NURSE NOTES: 1800 WAS NOT GIVEN, CONSULTED WITH PHARMACY AND WAS INFORMED THAT IT WAS OK TO GIVE WITH 2100 MEDS.
[2019-11-22 20:00] VITALS: BP 101/68
[2019-11-22] MEDS: Milk of Magnesia 30ml Ud GT SCH (21:00)
[2019-11-22] MEDS: Levemir Flexpen SUBQ SCH (21:00)
[2019-11-23] VITALS: BP 100/66
[2019-11-23] MEDS: Vancomycin 1gm in Dextrose 275ml IVPB SCH ×3 (01:42→17:13)
[2019-11-23 04:00] VITALS: BP 97/59
[2019-11-23] MEDS: Meropenem 500mg in NS 55ml IVPB SCH ×2 (06:18→13:24)
[2019-11-23] MEDS: NovoLOG Insulin Flexpen SUBQ SCH ×4 (06:30→21:00)
--- NOTE | 2019-11-23 06:56 | Hematology/Onc Progress Note ---
Assessment/Plan Assessment/Plan Assessment and Recs # Pancytopenia r/o underlying ifnection, may be covid19 related, but need results first, also may be pna related --> hepatitis and hiv are negative --> us of the abdomen has been ordered--> ct recently neg --> p smear is pending--> nos chistocytes seen --> remains on abx as per id --> transfuse, given plt as needed # Pneumonia, poa --> CXR - R sided lobe infiltrate --> remains on abx # Psych disorder. --> per Alondra Escudero # Diabetes mellitus. # Hypertension. # Parkinson's. # Dvt ppx heparin sq Appreciate consultation and dw Rn Subjective Constitutional: Denies: no symptoms, chills, fever, malaise, weakness, other Cardiovascular: Denies: no symptoms, chest pain, edema, irregular heart rate, lightheadedness, palpitations, syncope, other Respiratory: Denies: no symptoms, cough, shortness of breath, SOB with excertion, SOB at rest, sputum, wheezing, other Gastrointestinal/Abdominal: Denies: no symptoms, abdomen distended, abdominal pain, black stools, tarry stools, blood in stool, constipated, diarrhea, difficulty swallowing, nausea, poor appetite, poor fluid intake, rectal bleeding , vomiting, other Genitourinary: Denies: no symptoms, burning, discharge, frequency, flank pain, hematuria, incontinence, pain, urgency, other Neurologic/Psychiatric: Denies: no symptoms, anxiety, depressed, emotional problems, headache, numbness, paresthesia, pre-existing deficit, seizure, tingling, tremors, weakness, other Endocrine: Denies: no symptoms, excessive sweating, flushing, intolerance to cold, intolerance to heat, increased hunger, increased thirst, increased urine, unexplained weight gain, unexplained weight loss, other Allergies: Coded Allergies: NO KNOWN DRUG ALLERGIES (Unverified Allergy, Unknown, 07/16/19) Subjective 11/22 asleep, no complaints, gtube flushing well, without issue, no bleeding Objective Objective Current Medications Medications (Trade) Dose Ordered Sig/Monalisa Route PRN Reason Start Time Stop Time Status Last Admin Dose Admin Acetaminophen (Tylenol) 650 mg Q4H PRN GT Mild Pain (Pain Scale 1-3) 11/21/19 11:30 12/21/19 11:29 Acetaminophen (Tylenol) 650 mg Q4H PRN ORAL FEVER, HEADACHE, MILD PAIN 11/21/19 12:00 12/21/19 11:59 Acetaminophen (Tylenol) 650 mg Q4H PRN RECTAL Temp >100.5 11/21/19 11:15 12/21/19 11:14 Al Hydroxide/Mg Hydroxide (Mylanta) 30 ml Q6HR GT 11/21/19 13:15 12/21/19 13:14 11/23/19 06:18 Albuterol Sulfate (Proventil) 2.5 mg Q6H PRN HHN Shortness of Breath 11/21/19 11:15 11/26/19 11:14 Ascorbic Acid (Vitamin C) 500 mg TWICE A DAY GT 11/21/19 18:00 12/21/19 17:59 11/22/19 22:17 Bisacodyl (Dulcolax) 10 mg DAILY PRN RECTAL Constipation 11/21/19 12:00 02/19/20 11:59 Dextrose (Dextrose 50%) 25 ml Q30M PRN IV Hypoglycemia 11/21/19 12:00 02/19/20 11:59 Dextrose (Dextrose 50%) 50 ml Q30M PRN IV Hypoglycemia 11/21/19 12:00 02/19/20 11:59 Docusate Sodium (Colace) 100 mg TWICE A DAY ORAL 11/21/19 18:00 12/21/19 17:59 11/22/19 09:27 Enoxaparin Sodium (Lovenox) 40 mg Q24H SUBQ 11/21/19 13:00 02/19/20 12:59 Famotidine (Pepcid) 20 mg BEDTIME ORAL 11/21/19 21:00 02/19/20 20:59 11/22/19 22:17 Finasteride (Proscar) 5 mg DAILY ORAL 11/22/19 09:00 02/20/20 08:59 11/22/19 09:27 Heparin Sodium (Porcine) (Heparin 5000 units/ml) 5,000 units EVERY 12 HOURS SUBQ 11/21/19 21:00 01/05/20 20:59 Hydromorphone HCl (Dilaudid) 1 mg Q8H PRN IVP Moderate Pain (Pain Scale 4-6) 11/21/19 11:15 11/28/19 11:14 Insulin Aspart (NovoLOG) BEFORE MEALS AND HS SUBQ 11/21/19 16:30 02/19/20 16:29 11/22/19 11:06 Insulin Detemir (Levemir) 6 units BEDTIME SUBQ 11/21/19 21:00 02/19/20 20:59 Levetiracetam (Keppra) 2,000 mg BID GT 11/21/19 18:00 12/21/19 17:59 11/22/19 22:17 Lorazepam (Ativan) 1 mg Q6H PRN GT For Anxiety 11/21/19 16:00 11/28/19 15:59 Magnesium Hydroxide (Mom) 30 ml BEDTIME GT 11/21/19 21:00 12/21/19 20:59 Meropenem 500 mg/ Sodium Chloride 55 ml @ 110 mls/hr EVERY 8 HOURS IVPB 11/21/19 14:00 11/26/19 13:59 11/23/19 06:18 Metoprolol Tartrate (Lopressor) 25 mg EVERY 12 HOURS GT 11/21/19 21:00 02/19/20 20:59 11/21/19 22:23 Ondansetron HCl (Zofran) 4 mg Q6H PRN GT Nausea & Vomiting 11/21/19 12:00 12/21/19 11:59 Pantoprazole (Protonix) 40 mg DAILY IV 11/21/19 12:00 12/21/19 11:59 11/22/19 09:26 Polyethylene Glycol (Miralax) 17 gm DAILY PRN GT Constipation 11/21/19 12:00 12/21/19 11:59 Risperidone (RisperDAL) 1 mg DAILY GT 11/22/19 09:00 01/06/20 08:59 11/22/19 09:26 Temazepam (Restoril) 15 mg BEDTIME PRN ORAL Insomnia 11/21/19 12:00 11/28/19 11:59 Vancomycin HCl (Vanco rx to dose) 1 ea DAILY PRN MISC Per rx protocol 11/21/19 16:15 12/21/19 16:14 Vancomycin HCl 1 gm/Dextrose 275 ml @ 183.708 mls/hr Q8H IVPB 11/21/19 18:00 11/26/19 17:59 11/23/19 01:42 Zinc Sulfate (Zinc Sulfate) 220 mg DAILY ORAL 11/22/19 09:00 02/20/20 08:59 11/22/19 09:26 Zolpidem Tartrate (Ambien) 5 mg HSPRN PRN GT Insomnia 11/21/19 11:15 11/28/19 11:14 Last 24 Hour Vital Signs Date Time Temp Pulse Resp B/P (MAP) Pulse Ox O2 Delivery O2 Flow Rate FiO2 11/23/19 04:00 97.8 92 20 97/59 (72) 94 11/23/19 00:00 98.6 87 20 100/66 (77) 95 11/22/19 21:00 90 101/68 11/22/19 21:00 Room Air 11/22/19 20:00 98.4 90 19 101/68 (79) 94 11/22/19 12:00 98.9 90 16 100/62 (75) 96 11/22/19 09:45 93 95/59 11/22/19 08:05 Room Air 11/22/19 08:00 99.2 93 17 95/59 (71) 95 11/22/19 04:00 98.2 93 18 95/52 (66) 94 11/22/19 00:00 99.1 95 16 92/60 (71) 94 11/21/19 22:23 110 133/66 11/21/19 21:00 Room Air 11/21/19 20:00 98.2 110 20 133/66 (88) 95 11/21/19 16:47 Room Air 11/21/19 16:00 97.9 103 20 99/64 (76) 93 11/21/19 12:00 99.1 95 18 99/67 (78) 96 11/21/19 10:02 97.7 89 17 96/59 (71) 93 11/21/19 09:45 98.0 81 18 105/74 99 Room Air 11/21/19 07:06 86 16 103/71 100 Room Air Intake and Output 11/22/19 11/23/19 19:00 07:00 Intake Total 620 ml 477.416 ml Output Total 800 ml Balance -180 ml 477.416 ml Intake Oral 620 ml IV Total 477.416 ml Output Urine Total 800 ml # Voids 1 # Bowel Movements 1 Labs Test 11/20/19 20:00 11/21/19 04:50 11/21/19 06:15 11/22/19 06:30 White Blood Count 2.6 K/UL (4.8-10.8) 3.6 K/UL (4.8-10.8) 3.0 K/UL (4.8-10.8) Red Blood Count 7.19 M/UL (4.70-6.10) 5.45 M/UL (4.70-6.10) 5.72 M/UL (4.70-6.10) Hemoglobin 15.3 G/DL (14.2-18.0) 12.0 G/DL (14.2-18.0) 12.4 G/DL (14.2-18.0) Hematocrit 50.6 % (42.0-52.0) 37.0 % (42.0-52.0) 38.5 % (42.0-52.0) Mean Corpuscular Volume 70 FL (80-99) 68 FL (80-99) 67 FL (80-99) Mean Corpuscular Hemoglobin 21.2 PG (27.0-31.0) 22.1 PG (27.0-31.0) 21.6 PG (27.0-31.0) Mean Corpuscular Hemoglobin Concent 30.2 G/DL (32.0-36.0) 32.5 G/DL (32.0-36.0) 32.1 G/DL (32.0-36.0) Red Cell Distribution Width 14.4 % (11.6-14.8) 12.6 % (11.6-14.8) 12.5 % (11.6-14.8) Platelet Count 118 K/UL (150-450) 125 K/UL (150-450) 134 K/UL (150-450) Mean Platelet Volume 13.1 FL (6.5-10.1) 16.5 FL (6.5-10.1) 11.0 FL (6.5-10.1) Neutrophils (%) (Auto) % (45.0-75.0) 52.4 % (45.0-75.0) % (45.0-75.0) Lymphocytes (%) (Auto) % (20.0-45.0) 31.1 % (20.0-45.0) % (20.0-45.0) Monocytes (%) (Auto) % (1.0-10.0) 14.2 % (1.0-10.0) % (1.0-10.0) Eosinophils (%) (Auto) % (0.0-3.0) 1.5 % (0.0-3.0) % (0.0-3.0) Basophils (%) (Auto) % (0.0-2.0) 0.8 % (0.0-2.0) % (0.0-2.0) Differential Total Cells Counted 100 100 Neutrophils % (Manual) 45 % (45-75) 55 % (45-75) Lymphocytes % (Manual) 43 % (20-45) 31 % (20-45) Monocytes % (Manual) 11 % (1-10) 12 % (1-10) Eosinophils % (Manual) 0 % (0-3) 1 % (0-3) Basophils % (Manual) 1 % (0-2) 1 % (0-2) Band Neutrophils 0 % (0-8) 0 % (0-8) Platelet Estimate Adequate Decreased Platelet Morphology Normal Normal Polychromasia 1+ Anisocytosis 1+ 1+ Microcytosis 1+ 3+ Sodium Level 143 MMOL/L (136-145) 140 MMOL/L (136-145) 141 MMOL/L (136-145) Potassium Level 4.3 MMOL/L (3.5-5.1) 4.2 MMOL/L (3.5-5.1) 3.8 MMOL/L (3.5-5.1) Chloride Level 103 MMOL/L (98-107) 106 MMOL/L (98-107) 107 MMOL/L (98-107) Carbon Dioxide Level 29 MMOL/L (21-32) 26 MMOL/L (21-32) 23 MMOL/L (21-32) Anion Gap 12 mmol/L (5-15) 8 mmol/L (5-15) 11 mmol/L (5-15) Blood Urea Nitrogen 19 mg/dL (7-18) 20 mg/dL (7-18) 14 mg/dL (7-18) Creatinine 0.8 MG/DL (0.55-1.30) 0.6 MG/DL (0.55-1.30) 0.7 MG/DL (0.55-1.30) Estimat Glomerular Filtration Rate > 60 mL/min (>60) > 60 mL/min (>60) > 60 mL/min (>60) Glucose Level 107 MG/DL (74-106) 86 MG/DL (74-106) 85 MG/DL (74-106) Lactic Acid Level 1.70 mmol/L (0.4-2.0) Calcium Level 9.1 MG/DL (8.5-10.1) 8.2 MG/DL (8.5-10.1) 8.1 MG/DL (8.5-10.1) Total Bilirubin 0.4 MG/DL (0.2-1.0) Aspartate Amino Transf (AST/SGOT) 28 U/L (15-37) Alanine Aminotransferase (ALT/SGPT) 31 U/L (12-78) Alkaline Phosphatase 102 U/L (46-116) Total Protein 8.3 G/DL (6.4-8.2) Albumin 3.6 G/DL (3.4-5.0) Globulin 4.7 g/dL Albumin/Globulin Ratio 0.8 (1.0-2.7) Urine Color Yellow Urine Appearance Clear Urine pH 6 (4.5-8.0) Urine Specific [place] 1.015 (1.005-1.035) Urine Protein 1+ (NEGATIVE) Urine Glucose (UA) Negative (NEGATIVE) Urine Ketones 2+ (NEGATIVE) Urine Blood 2+ (NEGATIVE) Urine Nitrite Negative (NEGATIVE) Urine Bilirubin Negative (NEGATIVE) Urine Urobilinogen Normal MG/DL (0.0-1.0) Urine Leukocyte Esterase 1+ (NEGATIVE) Urine RBC 10-15 /HPF (0 - 0) Urine WBC 5-10 /HPF (0 - 0) Urine Squamous Epithelial Cells Occasional /LPF Urine Bacteria Occasional /HPF (NONE) Urine Mucus Few /LPF (NONE/OCC) Activated Partial Thromboplast Time 33 SEC (23-33) Test 11/22/19 17:45 Vancomycin Level Trough 14.8 ug/mL (5.0-12.0) Height (Feet): 5 Height (Inches): 10.00 Weight (Pounds): 150 Objective Physical Exam Vitals: reviewed, normal Gen: no apparent distress, GCS 15, non-toxic, other - nonverbal Heent; nc, at, eomi Resp: chest non-tender, lungs clear, normal breath sounds, speaking full sentences CV: rrr, no mgr Gi: normal bs Neuro: nonverbal Lymphatic: no adenopathy Afshin Curry MD Nov 23, 2019 06:56
--- NOTE | 2019-11-23 07:39 | NUR ---
HAND-OFF: Report given to EDU Neal. Patient is in stable condition. Endorsed plan of care.
[2019-11-23 08:00] VITALS: BP 99/62
[2019-11-23 08:13] LABS: HEMATOCRIT 39.5 % (42.0-52.0); HEMOGLOBIN 12.6 G/DL (14.2-18.0); MEAN CORPUSCULAR VOLUME 68 FL (80-99); PLATELET COUNT 136 K/UL (150-450); RED BLOOD COUNT 5.84 M/UL (4.70-6.10); RED CELL DISTRIBUTION WIDTH 12.8 % (11.6-14.8); WHITE BLOOD COUNT 3.2 K/UL (4.8-10.8)
[2019-11-23 08:23] LABS: ANION GAP 9 mmol/L (5-15); BLOOD UREA NITROGEN 16 mg/dL (7-18); CALCIUM 8.3 MG/DL (8.5-10.1); CARBON DIOXIDE 26 MMOL/L (21-32); CHLORIDE 108 MMOL/L (98-107); CREATININE 0.7 MG/DL (0.55-1.30); POTASSIUM 3.9 MMOL/L (3.5-5.1); SODIUM 143 MMOL/L (136-145)
--- NOTE | 2019-11-23 08:42 | NUR ---
NURSE NOTES: received report from Maya,RN. patient in bed. verbally responsive. limited communication d/t impaired cognition. repeated motion. no respiratory distress noted on room air. no facial grimacing noted. IV on Right hand saline lock wrapped kerlix. Gt for medications intact. no s/sx of infection. droplet + contact isolation d/t positive covid19. test resulted with positive. notified Dr. jones. bed in the lowest position and locked. call light within reach. will continue to provide plan of care.
--- NOTE | 2019-11-23 08:53 | General Progress Note ---
Assessment/Plan Problem List: (1) Pancytopenia ICD Codes: D61.818 - Other pancytopenia SNOMED: 700626815 (2) Fever ICD Codes: R50.9 - Fever, unspecified SNOMED: 419328614 (3) Cough ICD Codes: R05 - Cough SNOMED: 68494350 (4) Anemia ICD Codes: D64.9 - Anemia, unspecified SNOMED: 949017021 (5) Diabetes ICD Codes: E11.9 - Diabetes SNOMED: 56255662 (6) PEG (percutaneous endoscopic gastrostomy) adjustment/replacement/removal ICD Codes: Z43.1 - Encounter for attention to gastrostomy SNOMED: 934269838 (7) Decubitus ulcer ICD Codes: L89.90 - Pressure ulcer of unspecified site, unspecified stage SNOMED: 720026904 (8) Acute renal failure ICD Codes: N17.9 - Acute renal failure SNOMED: 17353479 (9) Seizure ICD Codes: R56.9 - Seizure SNOMED: 66617839 (10) Weak ICD Codes: R53.1 - Weakness SNOMED: 99970491 (11) UTI (lower urinary tract infection) ICD Codes: N39.0 - UTI (lower urinary tract infection) SNOMED: 4625877 (12) Suspected COVID-19 virus infection ICD Codes: Z20.828 - Contact with and (suspected) exposure to other viral communicable diseases SNOMED: 769284473 Status: unchanged Assessment/Plan: o2 pulm tx abx pt diet eval cbc bmp am Subjective Constitutional: Reports: weakness Allergies: Coded Allergies: NO KNOWN DRUG ALLERGIES (Unverified Allergy, Unknown, 07/16/19) All Systems: reviewed and negative except above Subjective sleepy calm Objective Last 24 Hour Vital Signs Date Time Temp Pulse Resp B/P (MAP) Pulse Ox O2 Delivery O2 Flow Rate FiO2 11/23/19 08:00 97.6 98 19 99/62 (74) 96 11/23/19 04:00 97.8 92 20 97/59 (72) 94 11/23/19 00:00 98.6 87 20 100/66 (77) 95 11/22/19 21:00 90 101/68 11/22/19 21:00 Room Air 11/22/19 20:00 98.4 90 19 101/68 (79) 94 11/22/19 12:00 98.9 90 16 100/62 (75) 96 11/22/19 09:45 93 95/59 Intake and Output 11/22/19 11/23/19 19:00 07:00 Intake Total 620 ml 844.832 ml Output Total 800 ml Balance -180 ml 844.832 ml Intake Oral 620 ml IV Total 844.832 ml Output Urine Total 800 ml # Voids 1 # Bowel Movements 1 Laboratory Tests 11/22/19 17:45: Vancomycin Level Trough 14.8H 11/23/19 07:45: White Blood Count 3.2L, Red Blood Count 5.84, Hemoglobin 12.6L, Hematocrit 39.5L , Mean Corpuscular Volume 68L, Mean Corpuscular Hemoglobin 21.6L, Mean Corpuscular Hemoglobin Concent 31.9L, Red Cell Distribution Width 12.8, Platelet Count 136L, Mean Platelet Volume 9.9, Neutrophils (%) (Auto) , Lymphocytes (%) (Auto) , Monocytes (%) (Auto) , Eosinophils (%) (Auto) , Basophils (%) (Auto) , Neutrophils % (Manual) [Pending], Lymphocytes % (Manual) [Pending], Platelet Estimate [Pending], Platelet Morphology [Pending], Sodium Level 143, Potassium Level 3.9, Chloride Level 108H, Carbon Dioxide Level 26, Anion Gap 9, Blood Urea Nitrogen 16, Creatinine 0.7, Estimat Glomerular Filtration Rate > 60, Glucose Level 99, Calcium Level 8.3L Height (Feet): 5 Height (Inches): 10.00 Weight (Pounds): 150 General Appearance: lethargic EENT: normal ENT inspection Neck: normal alignment Cardiovascular: normal rate, regular rhythm Respiratory/Chest: no respiratory distress, no accessory muscle use Extremities: normal inspection Skin: normal pigmentation Donaldo Johnson DO Nov 23, 2019 08:53
[2019-11-23] MEDS: Heparin 5000 units/ml inj SUBQ SCH ×2 (09:00→21:00)
--- NOTE | 2019-11-23 09:08 | NUR ---
Elective order. CT done 10/05/19. Discussed w/Dr. Curry by text at 07:[address] Curry advises no need to do this study as CT will suffice for purposes of answering clinical question. 08:31 hrs. Discussed w/EDU Neal at 08:33 hrs regarding no need for NPO. RN will speak w/physician to confirm. MNK. Addendum: 11/23/19 at 0913 by ADA BAUTISTA ABDOMINAL ULTRASOUND ORDER CANCELLED
[2019-11-23] MEDS: Docusate 100mg cap ORAL SCH ×2 (09:17→17:13)
[2019-11-23] MEDS: Ascorbic Acid 500mg tab GT SCH ×2 (09:17→17:13)
[2019-11-23] MEDS: levETIRAcetam 500mg/5ml Liquid GT SCH ×2 (09:17→17:13)
[2019-11-23] MEDS: Zinc Sulfate 220mg cap ORAL SCH (09:17)
[2019-11-23] MEDS: Pantoprazole Inj IV SCH (09:17)
--- NOTE | 2019-11-23 11:50 | Pulmonology Progress Note ---
Assessment/Plan Assessment/Plan IMPRESSION: 1. COVID 19 pneumonia. 2. Psych disorder. 3. Diabetes mellitus. 4. Hypertension. 5. Parkinson's. 6. Bacteremia; likely contaminant DISCUSSION: Continue home medications. Continue to provide oxygen and pulmonary hygiene. Currently, the patient is saturating well on nasal oxygen 2 L. Is positive COVID-19. Broad-spectrum antibiotics per ID. I will follow carefully. Abdifatah Carmichael M.D. Subjective Interval Events: None new Constitutional: Reports: no symptoms HEENT: Repors: no symptoms Respiratory: Reports: no symptoms Cardiovascular: Reports: no symptoms Gastrointestinal/Abdominal: Reports: no symptoms Genitourinary: Reports: no symptoms Allergies: Coded Allergies: NO KNOWN DRUG ALLERGIES (Unverified Allergy, Unknown, 07/16/19) All Systems: reviewed and negative except above Objective Last 24 Hour Vital Signs Date Time Temp Pulse Resp B/P (MAP) Pulse Ox O2 Delivery O2 Flow Rate FiO2 11/23/19 09:00 98 99/62 11/23/19 09:00 Room Air 11/23/19 08:00 97.6 98 19 99/62 (74) 96 11/23/19 04:00 97.8 92 20 97/59 (72) 94 11/23/19 00:00 98.6 87 20 100/66 (77) 95 11/22/19 21:00 90 101/68 11/22/19 21:00 Room Air 11/22/19 20:00 98.4 90 19 101/68 (79) 94 11/22/19 12:00 98.9 90 16 100/62 (75) 96 Intake and Output 11/22/19 11/23/19 19:00 07:00 Intake Total 620 ml 844.832 ml Output Total 800 ml Balance -180 ml 844.832 ml Intake Oral 620 ml IV Total 844.832 ml Output Urine Total 800 ml # Voids 1 # Bowel Movements 1 General Appearance: no acute distress HEENT: normocephalic Respiratory/Chest: chest wall non-tender, lungs clear Cardiovascular: normal peripheral pulses Abdomen: normal bowel sounds Microbiology Date/Time Source Procedure Growth Status 11/20/19 20:50 Blood Blood Culture - Preliminary Staphylococcus Saprophyticus Resulted 11/20/19 20:35 Blood Blood Culture - Preliminary Gram Positive Cocci Resulted 11/20/19 20:30 Nose MRSA Culture - Final Staphylococcus Aureus - Mrsa Complete 11/20/19 20:00 Nasopharynx Coronavirus COVID-19 PCR ([facility]) - Final Complete 11/21/19 17:45 Urine,Ureter/Kidney Urine Culture - Preliminary NO GROWTH AFTER 24 HOURS Resulted 11/20/19 20:45 Rectum VRE Culture - Final NO VANCOMYCIN RESISTANT ENTEROCOCCUS ... Complete 11/20/19 20:30 Rectum - Final NO CARBAPENEM-RESISTANT ENTEROBACTERI... Complete Laboratory Tests 11/22/19 17:45: Vancomycin Level Trough 14.8H 11/23/19 07:45: White Blood Count 3.2L, Red Blood Count 5.84, Hemoglobin 12.6L, Hematocrit 39.5L , Mean Corpuscular Volume 68L, Mean Corpuscular Hemoglobin 21.6L, Mean Corpuscular Hemoglobin Concent 31.9L, Red Cell Distribution Width 12.8, Platelet Count 136L, Mean Platelet Volume 9.9, Neutrophils (%) (Auto) , Lymphocytes (%) (Auto) , Monocytes (%) (Auto) , Eosinophils (%) (Auto) , Basophils (%) (Auto) , Differential Total Cells Counted 100, Neutrophils % ( Manual) 55, Lymphocytes % (Manual) 35, Monocytes % (Manual) 8, Eosinophils % ( Manual) 2, Basophils % (Manual) 0, Band Neutrophils 0, Platelet Estimate DecreasedL, Platelet Morphology Normal, Hypochromasia 1+, Anisocytosis , Microcytosis 1+, Sodium Level 143, Potassium Level 3.9, Chloride Level 108H, Carbon Dioxide Level 26, Anion Gap 9, Blood Urea Nitrogen 16, Creatinine 0.7, Estimat Glomerular Filtration Rate > 60, Glucose Level 99, Calcium Level 8.3L Current Medications Medications (Trade) Dose Ordered Sig/Monalisa Route PRN Reason Start Time Stop Time Status Last Admin Dose Admin Acetaminophen (Tylenol) 650 mg Q4H PRN GT Mild Pain (Pain Scale 1-3) 11/21/19 11:30 12/21/19 11:29 Acetaminophen (Tylenol) 650 mg Q4H PRN ORAL FEVER, HEADACHE, MILD PAIN 11/21/19 12:00 12/21/19 11:59 Acetaminophen (Tylenol) 650 mg Q4H PRN RECTAL Temp >100.5 11/21/19 11:15 12/21/19 11:14 Al Hydroxide/Mg Hydroxide (Mylanta) 30 ml Q6HR GT 11/21/19 13:15 12/21/19 13:14 11/23/19 06:18 Albuterol Sulfate (Proventil) 2.5 mg Q6H PRN HHN Shortness of Breath 11/21/19 11:15 11/26/19 11:14 Ascorbic Acid (Vitamin C) 500 mg TWICE A DAY GT 11/21/19 18:00 12/21/19 17:59 11/23/19 09:17 Bisacodyl (Dulcolax) 10 mg DAILY PRN RECTAL Constipation 11/21/19 12:00 02/19/20 11:59 Dextrose (Dextrose 50%) 25 ml Q30M PRN IV Hypoglycemia 11/21/19 12:00 02/19/20 11:59 Dextrose (Dextrose 50%) 50 ml Q30M PRN IV Hypoglycemia 11/21/19 12:00 02/19/20 11:59 Docusate Sodium (Colace) 100 mg TWICE A DAY ORAL 11/21/19 18:00 12/21/19 17:59 11/23/19 09:17 Enoxaparin Sodium (Lovenox) 40 mg Q24H SUBQ 11/21/19 13:00 02/19/20 12:59 Famotidine (Pepcid) 20 mg BEDTIME ORAL 11/21/19 21:00 02/19/20 20:59 11/22/19 22:17 Finasteride (Proscar) 5 mg DAILY ORAL 11/22/19 09:00 02/20/20 08:59 11/23/19 09:17 Heparin Sodium (Porcine) (Heparin 5000 units/ml) 5,000 units EVERY 12 HOURS SUBQ 11/21/19 21:00 01/05/20 20:59 Hydromorphone HCl (Dilaudid) 1 mg Q8H PRN IVP Moderate Pain (Pain Scale 4-6) 11/21/19 11:15 11/28/19 11:14 Insulin Aspart (NovoLOG) BEFORE MEALS AND HS SUBQ 11/21/19 16:30 02/19/20 16:29 11/23/19 11:45 Insulin Detemir (Levemir) 6 units BEDTIME SUBQ 11/21/19 21:00 02/19/20 20:59 Levetiracetam (Keppra) 2,000 mg BID GT 11/21/19 18:00 12/21/19 17:59 11/23/19 09:17 Lorazepam (Ativan) 1 mg Q6H PRN GT For Anxiety 11/21/19 16:00 11/28/19 15:59 Magnesium Hydroxide (Mom) 30 ml BEDTIME GT 11/21/19 21:00 12/21/19 20:59 Meropenem 500 mg/ Sodium Chloride 55 ml @ 110 mls/hr EVERY 8 HOURS IVPB 11/21/19 14:00 11/26/19 13:59 11/23/19 06:18 Metoprolol Tartrate (Lopressor) 25 mg EVERY 12 HOURS GT 11/21/19 21:00 02/19/20 20:59 11/21/19 22:23 Ondansetron HCl (Zofran) 4 mg Q6H PRN GT Nausea & Vomiting 11/21/19 12:00 12/21/19 11:59 Pantoprazole (Protonix) 40 mg DAILY IV 11/21/19 12:00 12/21/19 11:59 11/23/19 09:17 Polyethylene Glycol (Miralax) 17 gm DAILY PRN GT Constipation 11/21/19 12:00 12/21/19 11:59 Risperidone (RisperDAL) 1 mg DAILY GT 11/22/19 09:00 01/06/20 08:59 11/23/19 09:17 Temazepam (Restoril) 15 mg BEDTIME PRN ORAL Insomnia 11/21/19 12:00 11/28/19 11:59 Vancomycin HCl (Vanco rx to dose) 1 ea DAILY PRN MISC Per rx protocol 11/21/19 16:15 12/21/19 16:14 Vancomycin HCl 1 gm/Dextrose 275 ml @ 183.708 mls/hr Q8H IVPB 11/21/19 18:00 11/26/19 17:59 11/23/19 09:18 Zinc Sulfate (Zinc Sulfate) 220 mg DAILY ORAL 11/22/19 09:00 02/20/20 08:59 11/23/19 09:17 Zolpidem Tartrate (Ambien) 5 mg HSPRN PRN GT Insomnia 11/21/19 11:15 11/28/19 11:14 Abdifatah Carmichael MD Nov 23, 2019 11:50
[2019-11-23 12:00] VITALS: BP 106/59
--- NOTE | 2019-11-23 12:04 | NUR ---
NURSE NOTES: Notified and [facility] that patient is positive covid19. spoke to GAIL Blanco nurse at [facility].
[2019-11-23] MEDS: Enoxaparin 40mg Inj SUBQ SCH (12:24)
--- NOTE | 2019-11-23 12:25 | NUR ---
NURSE NOTES: patient has new order of lovenox sq daily. notified DR. casanova that patient plt [id number] today and received order ok to give lovenox sq for dvt ppx.
--- NOTE | 2019-11-23 13:42 | Infectious Diseases Prog Note ---
Assessment/Plan Assessment/Plan Assessment: Pnuemonia- currently at [facility]- 2ry to COVID19 (resident at [facility] w/ multiple confirmed cases) -CXR: Patchy areas of mild increased hazy opacity of suspected in the right lung. This appears most prominent at the right apex. An acute infectious/ inflammatory process should be considered. There is question of a vertebral body compression fracture of the lower thoracic spine. Gram positive bacteremia- real vs contaminant -11/19 Bcx 08/01 S. saprophyticus, 09/01 GPC clusters; 11/20 Bcx p Probable UTI -u/a wbc 5-10, nit neg, leuk +1; ucx NTD Afebrile (reported Fever [employer]) Leukopenia/pancytopenia Dm2 HTN seizure disorder dysphagia s/p GT decubitus ulcer FTT cerebral palsy COPD CVA/TIA paranoid schizophrenia non verbal SNF resident (Z[facility] Good) Plan: -Cont empiric IV Vancomycin #3 for gram positive bacteremia -Switch empiric Meropenem #3 to Ceftriaxone urine cultures -11/19 SP CEftriaxone x1, Azithromycin x1 -f/u cx -Monitor CBC/CMP, temperatures -f/u repeat Bcx x2 -COVID 19 isolation -PEG care -aspiration precautions Thank you for consulting [facility]. Will continue to follow along with you. Discussed with RN. Subjective Allergies: Coded Allergies: NO KNOWN DRUG ALLERGIES (Unverified Allergy, Unknown, 07/16/19) Subjective afebrile at [facility] repeat bx p COVID positive Objective Vital Signs Last 24 Hour Vital Signs Date Time Temp Pulse Resp B/P (MAP) Pulse Ox O2 Delivery O2 Flow Rate FiO2 11/23/19 12:00 97.7 108 18 106/59 (75) 93 11/23/19 09:00 98 99/62 11/23/19 09:00 Room Air 11/23/19 08:00 97.6 98 19 99/62 (74) 96 11/23/19 04:00 97.8 92 20 97/59 (72) 94 11/23/19 00:00 98.6 87 20 100/66 (77) 95 11/22/19 21:00 90 101/68 11/22/19 21:00 Room Air 11/22/19 20:00 98.4 90 19 101/68 (79) 94 Height (Feet): 5 Height (Inches): 10.00 Weight (Pounds): 150 Objective not examined to limit COVID19 exposure Microbiology Date/Time Source Procedure Growth Status 11/20/19 20:50 Blood Blood Culture - Preliminary Staphylococcus Saprophyticus Resulted 11/20/19 20:35 Blood Blood Culture - Preliminary Gram Positive Cocci Resulted 11/20/19 20:30 Nose MRSA Culture - Final Staphylococcus Aureus - Mrsa Complete 11/20/19 20:00 Nasopharynx Coronavirus COVID-19 PCR ([facility]) - Final Complete 11/21/19 17:45 Urine,Ureter/Kidney Urine Culture - Preliminary NO GROWTH AFTER 24 HOURS Resulted 11/20/19 20:45 Rectum VRE Culture - Final NO VANCOMYCIN RESISTANT ENTEROCOCCUS ... Complete 11/20/19 20:30 Rectum - Final NO CARBAPENEM-RESISTANT ENTEROBACTERI... Complete Laboratory Tests Test 11/22/19 17:45 11/23/19 07:45 Vancomycin Level Trough 14.8 ug/mL (5.0-12.0) H White Blood Count 3.2 K/UL (4.8-10.8) L Red Blood Count 5.84 M/UL (4.70-6.10) Hemoglobin 12.6 G/DL (14.2-18.0) L Hematocrit 39.5 % (42.0-52.0) L Mean Corpuscular Volume 68 FL (80-99) L Mean Corpuscular Hemoglobin 21.6 PG (27.0-31.0) L Mean Corpuscular Hemoglobin Concent 31.9 G/DL (32.0-36.0) L Red Cell Distribution Width 12.8 % (11.6-14.8) Platelet Count 136 K/UL (150-450) L Mean Platelet Volume 9.9 FL (6.5-10.1) Neutrophils (%) (Auto) % (45.0-75.0) Lymphocytes (%) (Auto) % (20.0-45.0) Monocytes (%) (Auto) % (1.0-10.0) Eosinophils (%) (Auto) % (0.0-3.0) Basophils (%) (Auto) % (0.0-2.0) Differential Total Cells Counted 100 Neutrophils % (Manual) 55 % (45-75) Lymphocytes % (Manual) 35 % (20-45) Monocytes % (Manual) 8 % (1-10) Eosinophils % (Manual) 2 % (0-3) Basophils % (Manual) 0 % (0-2) Band Neutrophils 0 % (0-8) Platelet Estimate Decreased L Platelet Morphology Normal Hypochromasia 1+ Anisocytosis Microcytosis 1+ Sodium Level 143 MMOL/L (136-145) Potassium Level 3.9 MMOL/L (3.5-5.1) Chloride Level 108 MMOL/L (98-107) H Carbon Dioxide Level 26 MMOL/L (21-32) Anion Gap 9 mmol/L (5-15) Blood Urea Nitrogen 16 mg/dL (7-18) Creatinine 0.7 MG/DL (0.55-1.30) Estimat Glomerular Filtration Rate > 60 mL/min (>60) Glucose Level 99 MG/DL (74-106) Calcium Level 8.3 MG/DL (8.5-10.1) L Current Medications Medications (Trade) Dose Ordered Sig/Monalisa Route PRN Reason Start Time Stop Time Status Last Admin Dose Admin Acetaminophen (Tylenol) 650 mg Q4H PRN GT Mild Pain (Pain Scale 1-3) 11/21/19 11:30 12/21/19 11:29 Acetaminophen (Tylenol) 650 mg Q4H PRN ORAL FEVER, HEADACHE, MILD PAIN 11/21/19 12:00 12/21/19 11:59 Acetaminophen (Tylenol) 650 mg Q4H PRN RECTAL Temp >100.5 11/21/19 11:15 12/21/19 11:14 Al Hydroxide/Mg Hydroxide (Mylanta) 30 ml Q6HR GT 11/21/19 13:15 12/21/19 13:14 11/23/19 12:22 Albuterol Sulfate (Proventil) 2.5 mg Q6H PRN HHN Shortness of Breath 11/21/19 11:15 11/26/19 11:14 Ascorbic Acid (Vitamin C) 500 mg TWICE A DAY GT 11/21/19 18:00 12/21/19 17:59 11/23/19 09:17 Bisacodyl (Dulcolax) 10 mg DAILY PRN RECTAL Constipation 11/21/19 12:00 02/19/20 11:59 Dextrose (Dextrose 50%) 25 ml Q30M PRN IV Hypoglycemia 11/21/19 12:00 02/19/20 11:59 Dextrose (Dextrose 50%) 50 ml Q30M PRN IV Hypoglycemia 11/21/19 12:00 02/19/20 11:59 Docusate Sodium (Colace) 100 mg TWICE A DAY ORAL 11/21/19 18:00 12/21/19 17:59 11/23/19 09:17 Enoxaparin Sodium (Lovenox) 40 mg Q24H SUBQ 11/21/19 13:00 02/19/20 12:59 11/23/19 12:24 Famotidine (Pepcid) 20 mg BEDTIME ORAL 11/21/19 21:00 02/19/20 20:59 11/22/19 22:17 Finasteride (Proscar) 5 mg DAILY ORAL 11/22/19 09:00 02/20/20 08:59 11/23/19 09:17 Heparin Sodium (Porcine) (Heparin 5000 units/ml) 5,000 units EVERY 12 HOURS SUBQ 11/21/19 21:00 01/05/20 20:59 Hydromorphone HCl (Dilaudid) 1 mg Q8H PRN IVP Moderate Pain (Pain Scale 4-6) 11/21/19 11:15 11/28/19 11:14 Insulin Aspart (NovoLOG) BEFORE MEALS AND HS SUBQ 11/21/19 16:30 02/19/20 16:29 11/23/19 11:45 Insulin Detemir (Levemir) 6 units BEDTIME SUBQ 11/21/19 21:00 02/19/20 20:59 Levetiracetam (Keppra) 2,000 mg BID GT 11/21/19 18:00 12/21/19 17:59 11/23/19 09:17 Lorazepam (Ativan) 1 mg Q6H PRN GT For Anxiety 11/21/19 16:00 11/28/19 15:59 Magnesium Hydroxide (Mom) 30 ml BEDTIME GT 11/21/19 21:00 12/21/19 20:59 Meropenem 500 mg/ Sodium Chloride 55 ml @ 110 mls/hr EVERY 8 HOURS IVPB 11/21/19 14:00 11/26/19 13:59 11/23/19 13:24 Metoprolol Tartrate (Lopressor) 25 mg EVERY 12 HOURS GT 11/21/19 21:00 02/19/20 20:59 11/21/19 22:23 Ondansetron HCl (Zofran) 4 mg Q6H PRN GT Nausea & Vomiting 11/21/19 12:00 12/21/19 11:59 Pantoprazole (Protonix) 40 mg DAILY IV 11/21/19 12:00 12/21/19 11:59 11/23/19 09:17 Polyethylene Glycol (Miralax) 17 gm DAILY PRN GT Constipation 11/21/19 12:00 12/21/19 11:59 Risperidone (RisperDAL) 1 mg DAILY GT 11/22/19 09:00 01/06/20 08:59 11/23/19 09:17 Temazepam (Restoril) 15 mg BEDTIME PRN ORAL Insomnia 11/21/19 12:00 11/28/19 11:59 Vancomycin HCl (Vanco rx to dose) 1 ea DAILY PRN MISC Per rx protocol 11/21/19 16:15 12/21/19 16:14 Vancomycin HCl 1 gm/Dextrose 275 ml @ 183.708 mls/hr Q8H IVPB 11/21/19 18:00 11/26/19 17:59 11/23/19 09:18 Zinc Sulfate (Zinc Sulfate) 220 mg DAILY ORAL 11/22/19 09:00 02/20/20 08:59 11/23/19 09:17 Zolpidem Tartrate (Ambien) 5 mg HSPRN PRN GT Insomnia 11/21/19 11:15 11/28/19 11:14 Dilma Chand M.D. Nov 23, 2019 13:42
[2019-11-23 16:00] VITALS: BP 123/61
--- NOTE | 2019-11-23 19:05 | NUR ---
NURSE NOTES: Received report from EDU Neal. Pt awake, on room air. No respiratory distress noted on room air. IV on Right hand intact. Gt for medications intact. Isolation maintained. Bed locked, lowest position, alarm on, side rails up, call light within reach. Will continue to monitor
--- NOTE | 2019-11-23 19:16 | NUR ---
HAND-OFF: Report given to EDU Hernandez.
--- NOTE | 2019-11-23 19:30 | Progress Note ---
DATE: 11/23/2019 SUBJECTIVE: This is a 64-year-old male patient with fever confusion, disorganized thought process, and mood lability. Also, he is very confused and significant decline in cognition below his baseline. That is why, his attending has requested daily psychiatric consultation. MENTAL STATUS EXAMINATION: This is a 64-year-old male. Appearance is disheveled. Attitude, irritable and agitated. Affect, guarded and restricted. Intellect poor. Mood, depressed and anxious. Motor activity, psychomotor agitation. Insight and judgement is poor. DIAGNOSIS: Paranoid schizophrenia with acute exacerbation. PLAN: Treat him with Risperdal 1 mg per G-tube daily and Ativan 1 mg every 6 hours p.r.n. anxiety and agitation. Twenty minutes of insight-oriented psychotherapy to help him recognize his medical and psychiatric condition, so he has better recognition and impulse control on the unit. Chart reviewed. Discussed with staff. Seen and assessed at bedside. Enrrique Escudero M.D. DR: ANGELI JOB#: [id number] CC:
[2019-11-23 20:00] VITALS: BP 128/60
[2019-11-23] MEDS: Levemir Flexpen SUBQ SCH (21:00)
[2019-11-23] MEDS ORDERED: cefTRIAXone 1 GM in D5W 55 ML IVPB SCH (21:00)
[2019-11-23] MEDS: Milk of Magnesia 30ml Ud GT SCH (21:21)
[2019-11-24] VITALS: BP 107/65
[2019-11-24] MEDS: Vancomycin 1gm in Dextrose 275ml IVPB SCH ×3 (01:00→18:05)
[2019-11-24 04:00] VITALS: BP 91/64
[2019-11-24] MEDS: NovoLOG Insulin Flexpen SUBQ SCH ×4 (06:19→21:00)
[2019-11-24 06:42] LABS: HEMATOCRIT 42.8 % (42.0-52.0); HEMOGLOBIN 13.7 G/DL (14.2-18.0); MEAN CORPUSCULAR VOLUME 68 FL (80-99); PLATELET COUNT 151 K/UL (150-450); RED BLOOD COUNT 6.32 M/UL (4.70-6.10); RED CELL DISTRIBUTION WIDTH 12.6 % (11.6-14.8); WHITE BLOOD COUNT 3.4 K/UL (4.8-10.8)
--- NOTE | 2019-11-24 06:52 | Hematology/Onc Progress Note ---
Assessment/Plan Assessment/Plan Assessment and Recs # Pancytopenia r/o underlying ifnection, may be covid19 related, but need results first, also may be pna related --> hepatitis and hiv are negative --> us of the abdomen has been ordered--> ct recently neg --> p smear is pending--> nos Shistocytes seen --> remains on abx as per id --> transfuse, given plt as needed # Pneumonia, poa --> CXR - R sided lobe infiltrate --> remains on abx # Psych disorder. --> per G Kota # Diabetes mellitus. # Hypertension. # Parkinson's. # Dvt ppx heparin sq Appreciate consultation and antonio Rn Subjective Cardiovascular: Denies: no symptoms, chest pain, edema, irregular heart rate, lightheadedness, palpitations, syncope, other Gastrointestinal/Abdominal: Denies: no symptoms, abdomen distended, abdominal pain, black stools, tarry stools, blood in stool, constipated, diarrhea, difficulty swallowing, nausea, poor appetite, poor fluid intake, rectal bleeding , vomiting, other Genitourinary: Denies: no symptoms, burning, discharge, frequency, flank pain, hematuria, incontinence, pain, urgency, other Neurologic/Psychiatric: Denies: no symptoms, anxiety, depressed, emotional problems, headache, numbness, paresthesia, pre-existing deficit, seizure, tingling, tremors, weakness, other Endocrine: Denies: no symptoms, excessive sweating, flushing, intolerance to cold, intolerance to heat, increased hunger, increased thirst, increased urine, unexplained weight gain, unexplained weight loss, other Allergies: Coded Allergies: NO KNOWN DRUG ALLERGIES (Unverified Allergy, Unknown, 07/16/19) Subjective 11/22 asleep, no complaints, gtube flushing well, without issue, no bleeding 11/23 remains confused, is awake, no bleeding, labs reviewed Objective Objective Current Medications Medications (Trade) Dose Ordered Sig/Monalisa Route PRN Reason Start Time Stop Time Status Last Admin Dose Admin Acetaminophen (Tylenol) 650 mg Q4H PRN GT Mild Pain (Pain Scale 1-3) 11/21/19 11:30 12/21/19 11:29 Acetaminophen (Tylenol) 650 mg Q4H PRN ORAL FEVER, HEADACHE, MILD PAIN 11/21/19 12:00 12/21/19 11:59 Acetaminophen (Tylenol) 650 mg Q4H PRN RECTAL Temp >100.5 11/21/19 11:15 12/21/19 11:14 Al Hydroxide/Mg Hydroxide (Mylanta) 30 ml Q6HR GT 11/21/19 13:15 12/21/19 13:14 11/24/19 06:19 Albuterol Sulfate (Proventil) 2.5 mg Q6H PRN HHN Shortness of Breath 11/21/19 11:15 11/26/19 11:14 Ascorbic Acid (Vitamin C) 500 mg TWICE A DAY GT 11/21/19 18:00 12/21/19 17:59 11/23/19 17:13 Bisacodyl (Dulcolax) 10 mg DAILY PRN RECTAL Constipation 11/21/19 12:00 02/19/20 11:59 Ceftriaxone Sodium 1 gm/ Dextrose 55 ml @ 110 mls/hr Q24H IVPB 11/23/19 21:00 11/30/19 20:59 11/23/19 21:22 Dextrose (Dextrose 50%) 25 ml Q30M PRN IV Hypoglycemia 11/21/19 12:00 02/19/20 11:59 Dextrose (Dextrose 50%) 50 ml Q30M PRN IV Hypoglycemia 11/21/19 12:00 02/19/20 11:59 Docusate Sodium (Colace) 100 mg TWICE A DAY ORAL 11/21/19 18:00 12/21/19 17:59 11/23/19 17:13 Enoxaparin Sodium (Lovenox) 40 mg Q24H SUBQ 11/21/19 13:00 02/19/20 12:59 11/23/19 12:24 Famotidine (Pepcid) 20 mg BEDTIME ORAL 11/21/19 21:00 02/19/20 20:59 11/23/19 21:21 Finasteride (Proscar) 5 mg DAILY ORAL 11/22/19 09:00 02/20/20 08:59 11/23/19 09:17 Heparin Sodium (Porcine) (Heparin 5000 units/ml) 5,000 units EVERY 12 HOURS SUBQ 11/21/19 21:00 01/05/20 20:59 Hydromorphone HCl (Dilaudid) 1 mg Q8H PRN IVP Moderate Pain (Pain Scale 4-6) 11/21/19 11:15 11/28/19 11:14 Insulin Aspart (NovoLOG) BEFORE MEALS AND HS SUBQ 11/21/19 16:30 02/19/20 16:29 11/23/19 11:45 Insulin Detemir (Levemir) 6 units BEDTIME SUBQ 11/21/19 21:00 02/19/20 20:59 Levetiracetam (Keppra) 2,000 mg BID GT 11/21/19 18:00 12/21/19 17:59 11/23/19 17:13 Lorazepam (Ativan) 1 mg Q6H PRN GT For Anxiety 11/21/19 16:00 11/28/19 15:59 Magnesium Hydroxide (Mom) 30 ml BEDTIME GT 11/21/19 21:00 12/21/19 20:59 11/23/19 21:21 Metoprolol Tartrate (Lopressor) 25 mg EVERY 12 HOURS GT 11/21/19 21:00 02/19/20 20:59 11/23/19 21:21 Ondansetron HCl (Zofran) 4 mg Q6H PRN GT Nausea & Vomiting 11/21/19 12:00 12/21/19 11:59 Pantoprazole (Protonix) 40 mg DAILY IV 11/21/19 12:00 12/21/19 11:59 11/23/19 09:17 Polyethylene Glycol (Miralax) 17 gm DAILY PRN GT Constipation 11/21/19 12:00 12/21/19 11:59 Risperidone (RisperDAL) 1 mg DAILY GT 11/22/19 09:00 01/06/20 08:59 11/23/19 09:17 Temazepam (Restoril) 15 mg BEDTIME PRN ORAL Insomnia 11/21/19 12:00 11/28/19 11:59 Vancomycin HCl (Vanco rx to dose) 1 ea DAILY PRN MISC Per rx protocol 11/21/19 16:15 12/21/19 16:14 Vancomycin HCl 1 gm/Dextrose 275 ml @ 183.708 mls/hr Q8H IVPB 11/21/19 18:00 11/26/19 17:59 11/24/19 01:00 Zinc Sulfate (Zinc Sulfate) 220 mg DAILY ORAL 11/22/19 09:00 02/20/20 08:59 11/23/19 09:17 Zolpidem Tartrate (Ambien) 5 mg HSPRN PRN GT Insomnia 11/21/19 11:15 11/28/19 11:14 Last 24 Hour Vital Signs Date Time Temp Pulse Resp B/P (MAP) Pulse Ox O2 Delivery O2 Flow Rate FiO2 11/24/19 04:00 98.1 83 19 91/64 (73) 98 11/24/19 00:00 97.7 109 19 107/65 (79) 93 11/23/19 21:21 80 128/60 11/23/19 21:00 Room Air 11/23/19 20:26 82 18 95 Room Air 21 11/23/19 20:00 98.0 80 21 128/60 (82) 98 11/23/19 16:00 96.3 98 18 123/61 (81) 96 11/23/19 12:00 97.7 108 18 106/59 (75) 93 11/23/19 09:00 98 99/62 11/23/19 09:00 Room Air 11/23/19 08:00 97.6 98 19 99/62 (74) 96 11/23/19 04:00 97.8 92 20 97/59 (72) 94 11/23/19 00:00 98.6 87 20 100/66 (77) 95 11/22/19 21:00 90 101/68 11/22/19 21:00 Room Air 11/22/19 20:00 98.4 90 19 101/68 (79) 94 11/22/19 12:00 98.9 90 16 100/62 (75) 96 11/22/19 09:45 93 95/59 11/22/19 08:05 Room Air 11/22/19 08:00 99.2 93 17 95/59 (71) 95 Intake and Output 11/23/19 11/24/19 19:00 07:00 Intake Total 790 ml Output Total 600 ml Balance 190 ml Intake Oral 680 ml IV Total 110 ml Output Urine Total 600 ml # Bowel Movements 1 Labs Test 11/22/19 06:30 11/22/19 17:45 11/23/19 07:45 11/24/19 04:00 White Blood Count 3.0 K/UL (4.8-10.8) 3.2 K/UL (4.8-10.8) Red Blood Count 5.72 M/UL (4.70-6.10) 5.84 M/UL (4.70-6.10) Hemoglobin 12.4 G/DL (14.2-18.0) 12.6 G/DL (14.2-18.0) Hematocrit 38.5 % (42.0-52.0) 39.5 % (42.0-52.0) Mean Corpuscular Volume 67 FL (80-99) 68 FL (80-99) Mean Corpuscular Hemoglobin 21.6 PG (27.0-31.0) 21.6 PG (27.0-31.0) Mean Corpuscular Hemoglobin Concent 32.1 G/DL (32.0-36.0) 31.9 G/DL (32.0-36.0) Red Cell Distribution Width 12.5 % (11.6-14.8) 12.8 % (11.6-14.8) Platelet Count 134 K/UL (150-450) 136 K/UL (150-450) Mean Platelet Volume 11.0 FL (6.5-10.1) 9.9 FL (6.5-10.1) Neutrophils (%) (Auto) % (45.0-75.0) % (45.0-75.0) Lymphocytes (%) (Auto) % (20.0-45.0) % (20.0-45.0) Monocytes (%) (Auto) % (1.0-10.0) % (1.0-10.0) Eosinophils (%) (Auto) % (0.0-3.0) % (0.0-3.0) Basophils (%) (Auto) % (0.0-2.0) % (0.0-2.0) Differential Total Cells Counted 100 100 Neutrophils % (Manual) 55 % (45-75) 55 % (45-75) Lymphocytes % (Manual) 31 % (20-45) 35 % (20-45) Monocytes % (Manual) 12 % (1-10) 8 % (1-10) Eosinophils % (Manual) 1 % (0-3) 2 % (0-3) Basophils % (Manual) 1 % (0-2) 0 % (0-2) Band Neutrophils 0 % (0-8) 0 % (0-8) Platelet Estimate Decreased Decreased Platelet Morphology Normal Normal Anisocytosis 1+ Microcytosis 3+ 1+ Activated Partial Thromboplast Time 33 SEC (23-33) Sodium Level 141 MMOL/L (136-145) 143 MMOL/L (136-145) Potassium Level 3.8 MMOL/L (3.5-5.1) 3.9 MMOL/L (3.5-5.1) Chloride Level 107 MMOL/L (98-107) 108 MMOL/L (98-107) Carbon Dioxide Level 23 MMOL/L (21-32) 26 MMOL/L (21-32) Anion Gap 11 mmol/L (5-15) 9 mmol/L (5-15) Blood Urea Nitrogen 14 mg/dL (7-18) 16 mg/dL (7-18) Creatinine 0.7 MG/DL (0.55-1.30) 0.7 MG/DL (0.55-1.30) Estimat Glomerular Filtration Rate > 60 mL/min (>60) > 60 mL/min (>60) Glucose Level 85 MG/DL (74-106) 99 MG/DL (74-106) Calcium Level 8.1 MG/DL (8.5-10.1) 8.3 MG/DL (8.5-10.1) Vancomycin Level Trough 14.8 ug/mL (5.0-12.0) Hypochromasia 1+ Height (Feet): 5 Height (Inches): 10.00 Weight (Pounds): 150 Objective Physical Exam Vitals: reviewed, normal Gen: no apparent distress, GCS 15, non-toxic, other - nonverbal Heent; nc, at, eomi Resp: chest non-tender, lungs clear, normal breath sounds, speaking full sentences CV: rrr, no mgr Gi: normal bs Neuro: nonverbal Lymphatic: no adenopathy Afshin Curry MD Nov 24, 2019 06:52
--- NOTE | 2019-11-24 07:15 | NUR ---
NURSE NOTES: Report received from Mary SORENSEN. Patient is asleep, no acute distress noted. Patient is positive for COVID 19. Bed is low and locked, side rails up x2, call light within reach.
[2019-11-24 07:27] LABS: ANION GAP 12 mmol/L (5-15); BLOOD UREA NITROGEN 14 mg/dL (7-18); CARBON DIOXIDE 24 MMOL/L (21-32); CHLORIDE 107 MMOL/L (98-107); CREATININE 0.6 MG/DL (0.55-1.30); SODIUM 143 MMOL/L (136-145)
[2019-11-24 08:00] VITALS: BP 89/59
--- NOTE | 2019-11-24 08:02 | NUR ---
HAND-OFF: Report given to EDU Mendez.
--- NOTE | 2019-11-24 09:23 | NUR ---
CHARGE NURSE NOTE: BP 89/59, hr 83. notified, message left.
[2019-11-24] MEDS: Ascorbic Acid 500mg tab GT SCH ×2 (09:30→18:05)
[2019-11-24] MEDS: Heparin 5000 units/ml inj SUBQ SCH (09:30)
[2019-11-24] MEDS: Docusate 100mg cap ORAL SCH ×2 (09:31→17:27)
[2019-11-24] MEDS: Pantoprazole Inj IV SCH (09:31)
[2019-11-24] MEDS: Zinc Sulfate 220mg cap ORAL SCH (09:31)
[2019-11-24] MEDS: levETIRAcetam 500mg/5ml Liquid GT SCH ×2 (09:31→18:06)
--- NOTE | 2019-11-24 10:30 | NUR ---
NURSE NOTES: Patient pulled out left hand IV, several attempts to place IV with charge nurse Thelma were unsuccessful.
--- NOTE | 2019-11-24 11:43 | Pulmonology Progress Note ---
Assessment/Plan Assessment/Plan IMPRESSION: 1. COVID 19 pneumonia. 2. Psych disorder. 3. Diabetes mellitus. 4. Hypertension. 5. Parkinson's. 6. Bacteremia; likely contaminant DISCUSSION: Continue home medications. Continue to provide oxygen and pulmonary hygiene. Currently, the patient is saturating well on nasal oxygen 2 L alternating with RA. Is positive COVID-19. Broad-spectrum antibiotics per ID. I will follow carefully. Abdifatah Carmichael M.D. Subjective Interval Events: None new Constitutional: Reports: no symptoms HEENT: Repors: no symptoms Respiratory: Reports: no symptoms Cardiovascular: Reports: no symptoms Gastrointestinal/Abdominal: Reports: no symptoms Genitourinary: Reports: no symptoms Allergies: Coded Allergies: NO KNOWN DRUG ALLERGIES (Unverified Allergy, Unknown, 07/16/19) All Systems: reviewed and negative except above Objective Last 24 Hour Vital Signs Date Time Temp Pulse Resp B/P (MAP) Pulse Ox O2 Delivery O2 Flow Rate FiO2 11/24/19 09:00 83 89/59 11/24/19 08:00 97.2 83 18 89/59 (69) 94 11/24/19 04:00 98.1 83 19 91/64 (73) 98 11/24/19 00:00 97.7 109 19 107/65 (79) 93 11/23/19 21:21 80 128/60 11/23/19 21:00 Room Air 11/23/19 20:26 82 18 95 Room Air 21 11/23/19 20:00 98.0 80 21 128/60 (82) 98 11/23/19 16:00 96.3 98 18 123/61 (81) 96 11/23/19 12:00 97.7 108 18 106/59 (75) 93 Intake and Output 11/23/19 11/24/19 19:00 07:00 Intake Total 790 ml Output Total 600 ml Balance 190 ml Intake Oral 680 ml IV Total 110 ml Output Urine Total 600 ml # Bowel Movements 1 General Appearance: no acute distress HEENT: normocephalic Respiratory/Chest: chest wall non-tender, lungs clear Cardiovascular: normal peripheral pulses Abdomen: normal bowel sounds Microbiology Date/Time Source Procedure Growth Status 11/22/19 06:30 Blood Blood Culture - Preliminary NO GROWTH AFTER 24 HOURS Resulted 11/22/19 06:30 Blood Blood Culture - Preliminary NO GROWTH AFTER 24 HOURS Resulted 11/21/19 17:45 Urine,Ureter/Kidney Urine Culture - Final NO GROWTH AFTER 48 HOURS Complete Laboratory Tests 11/24/19 04:00: White Blood Count 3.4L, Red Blood Count 6.32H, Hemoglobin 13.7L, Hematocrit 42.8 , Mean Corpuscular Volume 68L, Mean Corpuscular Hemoglobin 21.6L, Mean Corpuscular Hemoglobin Concent 32.0, Red Cell Distribution Width 12.6, Platelet Count 151, Mean Platelet Volume 8.0, Neutrophils (%) (Auto) , Lymphocytes (%) ( Auto) , Monocytes (%) (Auto) , Eosinophils (%) (Auto) , Basophils (%) (Auto) , Differential Total Cells Counted 100, Neutrophils % (Manual) 60, Lymphocytes % ( Manual) 29, Monocytes % (Manual) 8, Eosinophils % (Manual) 2, Basophils % ( Manual) 1, Band Neutrophils 0, Platelet Estimate Adequate, Platelet Morphology Normal, Anisocytosis 1+, Microcytosis 3+, Sodium Level 143, Potassium Level 4.0 , Chloride Level 107, Carbon Dioxide Level 24, Anion Gap 12, Blood Urea Nitrogen 14, Creatinine 0.6, Estimat Glomerular Filtration Rate > 60, Glucose Level 88, Calcium Level 8.0L Current Medications Medications (Trade) Dose Ordered Sig/Monalisa Route PRN Reason Start Time Stop Time Status Last Admin Dose Admin Acetaminophen (Tylenol) 650 mg Q4H PRN GT Mild Pain (Pain Scale 1-3) 11/21/19 11:30 12/21/19 11:29 Acetaminophen (Tylenol) 650 mg Q4H PRN ORAL FEVER, HEADACHE, MILD PAIN 11/21/19 12:00 12/21/19 11:59 Acetaminophen (Tylenol) 650 mg Q4H PRN RECTAL Temp >100.5 11/21/19 11:15 12/21/19 11:14 Al Hydroxide/Mg Hydroxide (Mylanta) 30 ml Q6HR GT 11/21/19 13:15 12/21/19 13:14 11/24/19 06:19 Albuterol Sulfate (Proventil) 2.5 mg Q6H PRN HHN Shortness of Breath 11/21/19 11:15 11/26/19 11:14 Ascorbic Acid (Vitamin C) 500 mg TWICE A DAY GT 11/21/19 18:00 12/21/19 17:59 11/24/19 09:30 Bisacodyl (Dulcolax) 10 mg DAILY PRN RECTAL Constipation 11/21/19 12:00 02/19/20 11:59 Ceftriaxone Sodium 1 gm/ Dextrose 55 ml @ 110 mls/hr Q24H IVPB 11/23/19 21:00 11/30/19 20:59 11/23/19 21:22 Dextrose (Dextrose 50%) 25 ml Q30M PRN IV Hypoglycemia 11/21/19 12:00 02/19/20 11:59 Dextrose (Dextrose 50%) 50 ml Q30M PRN IV Hypoglycemia 11/21/19 12:00 02/19/20 11:59 Docusate Sodium (Colace) 100 mg TWICE A DAY ORAL 11/21/19 18:00 12/21/19 17:59 11/24/19 09:31 Enoxaparin Sodium (Lovenox) 40 mg Q24H SUBQ 11/21/19 13:00 02/19/20 12:59 11/23/19 12:24 Famotidine (Pepcid) 20 mg BEDTIME ORAL 11/21/19 21:00 02/19/20 20:59 11/23/19 21:21 Finasteride (Proscar) 5 mg DAILY ORAL 11/22/19 09:00 02/20/20 08:59 11/24/19 09:31 Heparin Sodium (Porcine) (Heparin 5000 units/ml) 5,000 units EVERY 12 HOURS SUBQ 11/21/19 21:00 01/05/20 20:59 11/24/19 09:30 Hydromorphone HCl (Dilaudid) 1 mg Q8H PRN IVP Moderate Pain (Pain Scale 4-6) 11/21/19 11:15 11/28/19 11:14 Insulin Aspart (NovoLOG) BEFORE MEALS AND HS SUBQ 11/21/19 16:30 02/19/20 16:29 11/23/19 11:45 Insulin Detemir (Levemir) 6 units BEDTIME SUBQ 11/21/19 21:00 02/19/20 20:59 Levetiracetam (Keppra) 2,000 mg BID GT 11/21/19 18:00 12/21/19 17:59 11/24/19 09:31 Lorazepam (Ativan) 1 mg Q6H PRN GT For Anxiety 11/21/19 16:00 11/28/19 15:59 Magnesium Hydroxide (Mom) 30 ml BEDTIME GT 11/21/19 21:00 12/21/19 20:59 11/23/19 21:21 Metoprolol Tartrate (Lopressor) 25 mg EVERY 12 HOURS GT 11/21/19 21:00 02/19/20 20:59 11/23/19 21:21 Ondansetron HCl (Zofran) 4 mg Q6H PRN GT Nausea & Vomiting 11/21/19 12:00 12/21/19 11:59 Pantoprazole (Protonix) 40 mg DAILY IV 11/21/19 12:00 12/21/19 11:59 11/24/19 09:31 Polyethylene Glycol (Miralax) 17 gm DAILY PRN GT Constipation 11/21/19 12:00 12/21/19 11:59 Risperidone (RisperDAL) 1 mg DAILY GT 11/22/19 09:00 01/06/20 08:59 11/24/19 09:31 Temazepam (Restoril) 15 mg BEDTIME PRN ORAL Insomnia 11/21/19 12:00 11/28/19 11:59 Vancomycin HCl (Vanco rx to dose) 1 ea DAILY PRN MISC Per rx protocol 11/21/19 16:15 12/21/19 16:14 Vancomycin HCl 1 gm/Dextrose 275 ml @ 183.708 mls/hr Q8H IVPB 11/21/19 18:00 11/26/19 17:59 11/24/19 01:00 Zinc Sulfate (Zinc Sulfate) 220 mg DAILY ORAL 11/22/19 09:00 02/20/20 08:59 11/24/19 09:31 Zolpidem Tartrate (Ambien) 5 mg HSPRN PRN GT Insomnia 11/21/19 11:15 11/28/19 11:14 Abdifatah Carmichael MD Nov 24, 2019 11:43
[2019-11-24 12:00] VITALS: BP 88/59
--- NOTE | 2019-11-24 12:40 | General Progress Note ---
Assessment/Plan Problem List: (1) Pancytopenia ICD Codes: D61.818 - Other pancytopenia SNOMED: 850595136 (2) Fever ICD Codes: R50.9 - Fever, unspecified SNOMED: 736701153 (3) Cough ICD Codes: R05 - Cough SNOMED: 53854603 (4) Anemia ICD Codes: D64.9 - Anemia, unspecified SNOMED: 285438933 (5) Diabetes ICD Codes: E11.9 - Diabetes SNOMED: 15628850 (6) PEG (percutaneous endoscopic gastrostomy) adjustment/replacement/removal ICD Codes: Z43.1 - Encounter for attention to gastrostomy SNOMED: 606014604 (7) Decubitus ulcer ICD Codes: L89.90 - Pressure ulcer of unspecified site, unspecified stage SNOMED: 950724028 (8) Acute renal failure ICD Codes: N17.9 - Acute renal failure SNOMED: 66421366 (9) Seizure ICD Codes: R56.9 - Seizure SNOMED: 88215306 (10) Weak ICD Codes: R53.1 - Weakness SNOMED: 26437077 (11) UTI (lower urinary tract infection) ICD Codes: N39.0 - UTI (lower urinary tract infection) SNOMED: 4985720 (12) Suspected COVID-19 virus infection ICD Codes: Z20.828 - Contact with and (suspected) exposure to other viral communicable diseases SNOMED: 785420471 Status: unchanged Assessment/Plan: o2 pulm tx abx pt diet eval cbc bmp am Subjective Constitutional: Reports: weakness Allergies: Coded Allergies: NO KNOWN DRUG ALLERGIES (Unverified Allergy, Unknown, 07/16/19) All Systems: reviewed and negative except above Subjective sleepy calm Objective Last 24 Hour Vital Signs Date Time Temp Pulse Resp B/P (MAP) Pulse Ox O2 Delivery O2 Flow Rate FiO2 11/24/19 12:00 96.1 93 18 88/59 (69) 95 11/24/19 09:00 83 89/59 11/24/19 08:00 97.2 83 18 89/59 (69) 94 11/24/19 04:00 98.1 83 19 91/64 (73) 98 11/24/19 00:00 97.7 109 19 107/65 (79) 93 11/23/19 21:21 80 128/60 11/23/19 21:00 Room Air 11/23/19 20:26 82 18 95 Room Air 21 11/23/19 20:00 98.0 80 21 128/60 (82) 98 11/23/19 16:00 96.3 98 18 123/61 (81) 96 Intake and Output 11/23/19 11/24/19 19:00 07:00 Intake Total 790 ml Output Total 600 ml Balance 190 ml Intake Oral 680 ml IV Total 110 ml Output Urine Total 600 ml # Bowel Movements 1 Laboratory Tests 11/24/19 04:00: White Blood Count 3.4L, Red Blood Count 6.32H, Hemoglobin 13.7L, Hematocrit 42.8 , Mean Corpuscular Volume 68L, Mean Corpuscular Hemoglobin 21.6L, Mean Corpuscular Hemoglobin Concent 32.0, Red Cell Distribution Width 12.6, Platelet Count 151, Mean Platelet Volume 8.0, Neutrophils (%) (Auto) , Lymphocytes (%) ( Auto) , Monocytes (%) (Auto) , Eosinophils (%) (Auto) , Basophils (%) (Auto) , Differential Total Cells Counted 100, Neutrophils % (Manual) 60, Lymphocytes % ( Manual) 29, Monocytes % (Manual) 8, Eosinophils % (Manual) 2, Basophils % ( Manual) 1, Band Neutrophils 0, Platelet Estimate Adequate, Platelet Morphology Normal, Anisocytosis 1+, Microcytosis 3+, Sodium Level 143, Potassium Level 4.0 , Chloride Level 107, Carbon Dioxide Level 24, Anion Gap 12, Blood Urea Nitrogen 14, Creatinine 0.6, Estimat Glomerular Filtration Rate > 60, Glucose Level 88, Calcium Level 8.0L Height (Feet): 5 Height (Inches): 10.00 Weight (Pounds): 150 General Appearance: lethargic EENT: PERRL/EOMI Neck: normal alignment Cardiovascular: normal rate, regular rhythm Respiratory/Chest: no respiratory distress, no accessory muscle use Extremities: normal inspection Skin: normal pigmentation Donaldo Johnson DO Nov 24, 2019 12:40
--- NOTE | 2019-11-24 12:47 | Cardiac Electrophysiology PN ---
Subjective Subjective [id number] Objective Last 24 Hour Vital Signs Date Time Temp Pulse Resp B/P (MAP) Pulse Ox O2 Delivery O2 Flow Rate FiO2 11/24/19 12:00 96.1 93 18 88/59 (69) 95 11/24/19 09:00 83 89/59 11/24/19 08:00 97.2 83 18 89/59 (69) 94 11/24/19 04:00 98.1 83 19 91/64 (73) 98 11/24/19 00:00 97.7 109 19 107/65 (79) 93 11/23/19 21:21 80 128/60 11/23/19 21:00 Room Air 11/23/19 20:26 82 18 95 Room Air 21 11/23/19 20:00 98.0 80 21 128/60 (82) 98 11/23/19 16:00 96.3 98 18 123/61 (81) 96 Intake and Output 11/23/19 11/24/19 19:00 07:00 Intake Total 790 ml Output Total 600 ml Balance 190 ml Intake Oral 680 ml IV Total 110 ml Output Urine Total 600 ml # Bowel Movements 1 Laboratory Tests Test 11/24/19 04:00 White Blood Count 3.4 K/UL (4.8-10.8) L Red Blood Count 6.32 M/UL (4.70-6.10) H Hemoglobin 13.7 G/DL (14.2-18.0) L Hematocrit 42.8 % (42.0-52.0) Mean Corpuscular Volume 68 FL (80-99) L Mean Corpuscular Hemoglobin 21.6 PG (27.0-31.0) L Mean Corpuscular Hemoglobin Concent 32.0 G/DL (32.0-36.0) Red Cell Distribution Width 12.6 % (11.6-14.8) Platelet Count 151 K/UL (150-450) Mean Platelet Volume 8.0 FL (6.5-10.1) Neutrophils (%) (Auto) % (45.0-75.0) Lymphocytes (%) (Auto) % (20.0-45.0) Monocytes (%) (Auto) % (1.0-10.0) Eosinophils (%) (Auto) % (0.0-3.0) Basophils (%) (Auto) % (0.0-2.0) Differential Total Cells Counted 100 Neutrophils % (Manual) 60 % (45-75) Lymphocytes % (Manual) 29 % (20-45) Monocytes % (Manual) 8 % (1-10) Eosinophils % (Manual) 2 % (0-3) Basophils % (Manual) 1 % (0-2) Band Neutrophils 0 % (0-8) Platelet Estimate Adequate Platelet Morphology Normal Anisocytosis 1+ Microcytosis 3+ Sodium Level 143 MMOL/L (136-145) Potassium Level 4.0 MMOL/L (3.5-5.1) Chloride Level 107 MMOL/L (98-107) Carbon Dioxide Level 24 MMOL/L (21-32) Anion Gap 12 mmol/L (5-15) Blood Urea Nitrogen 14 mg/dL (7-18) Creatinine 0.6 MG/DL (0.55-1.30) Estimat Glomerular Filtration Rate > 60 mL/min (>60) Glucose Level 88 MG/DL (74-106) Calcium Level 8.0 MG/DL (8.5-10.1) L Microbiology Date/Time Source Procedure Growth Status 11/22/19 06:30 Blood Blood Culture - Preliminary NO GROWTH AFTER 24 HOURS Resulted 11/22/19 06:30 Blood Blood Culture - Preliminary NO GROWTH AFTER 24 HOURS Resulted 11/21/19 17:45 Urine,Ureter/Kidney Urine Culture - Final NO GROWTH AFTER 48 HOURS Complete Sage Araujo MD Nov 24, 2019 12:47
[2019-11-24] MEDS: Enoxaparin 40mg Inj SUBQ SCH (13:00)
--- NOTE | 2019-11-24 13:05 | Infectious Diseases Prog Note ---
Assessment/Plan Assessment/Plan Assessment: Pnuemonia- currently at [facility]- 2ry to COVID19 (resident at [place] w/ multiple confirmed cases) -CXR: Patchy areas of mild increased hazy opacity of suspected in the right lung. This appears most prominent at the right apex. An acute infectious/ inflammatory process should be considered. There is question of a vertebral body compression fracture of the lower thoracic spine. Gram positive bacteremia- likely contaminant -11/19 Bcx 08/01 S. saprophyticus, / S.epi; 11/20 Bcx NTD Probable UTI -u/a wbc 5-10, nit neg, leuk +1; ucx Neg Afebrile (reported Fever [employer]) Leukopenia/pancytopenia -thrombocytopenia resolved Dm2 HTN seizure disorder dysphagia s/p GT decubitus ulcer FTT cerebral palsy COPD CVA/TIA paranoid schizophrenia non verbal SNF resident (Z[facility] Good) Plan: -Cont empiric IV Vancomycin #4 for gram positive bacteremia -Dc Ceftriaxone #2 (abx d #4) -11/22 SP Meropenem #3 -11/19 SP CEftriaxone x1, Azithromycin x1 -f/u cx -Monitor CBC/CMP, temperatures -f/u repeat Bcx x2 -COVID 19 isolation -PEG care -aspiration precautions -CXR am Thank you for consulting [facility]. Will continue to follow along with you. Discussed with RN. Subjective Allergies: Coded Allergies: NO KNOWN DRUG ALLERGIES (Unverified Allergy, Unknown, 07/16/19) Subjective afebrile at [facility] repeat bx NTD Objective Vital Signs Last 24 Hour Vital Signs Date Time Temp Pulse Resp B/P (MAP) Pulse Ox O2 Delivery O2 Flow Rate FiO2 11/24/19 12:00 96.1 93 18 88/59 (69) 95 11/24/19 09:00 83 89/59 11/24/19 09:00 Room Air 11/24/19 08:00 97.2 83 18 89/59 (69) 94 11/24/19 04:00 98.1 83 19 91/64 (73) 98 11/24/19 00:00 97.7 109 19 107/65 (79) 93 11/23/19 21:21 80 128/60 11/23/19 21:00 Room Air 11/23/19 20:26 82 18 95 Room Air 21 11/23/19 20:00 98.0 80 21 128/60 (82) 98 11/23/19 16:00 96.3 98 18 123/61 (81) 96 Height (Feet): 5 Height (Inches): 10.00 Weight (Pounds): 150 Objective not examined to limit COVID19 exposure Microbiology Date/Time Source Procedure Growth Status 11/22/19 06:30 Blood Blood Culture - Preliminary NO GROWTH AFTER 24 HOURS Resulted 11/22/19 06:30 Blood Blood Culture - Preliminary NO GROWTH AFTER 24 HOURS Resulted 11/21/19 17:45 Urine,Ureter/Kidney Urine Culture - Final NO GROWTH AFTER 48 HOURS Complete Laboratory Tests Test 11/24/19 04:00 White Blood Count 3.4 K/UL (4.8-10.8) L Red Blood Count 6.32 M/UL (4.70-6.10) H Hemoglobin 13.7 G/DL (14.2-18.0) L Hematocrit 42.8 % (42.0-52.0) Mean Corpuscular Volume 68 FL (80-99) L Mean Corpuscular Hemoglobin 21.6 PG (27.0-31.0) L Mean Corpuscular Hemoglobin Concent 32.0 G/DL (32.0-36.0) Red Cell Distribution Width 12.6 % (11.6-14.8) Platelet Count 151 K/UL (150-450) Mean Platelet Volume 8.0 FL (6.5-10.1) Neutrophils (%) (Auto) % (45.0-75.0) Lymphocytes (%) (Auto) % (20.0-45.0) Monocytes (%) (Auto) % (1.0-10.0) Eosinophils (%) (Auto) % (0.0-3.0) Basophils (%) (Auto) % (0.0-2.0) Differential Total Cells Counted 100 Neutrophils % (Manual) 60 % (45-75) Lymphocytes % (Manual) 29 % (20-45) Monocytes % (Manual) 8 % (1-10) Eosinophils % (Manual) 2 % (0-3) Basophils % (Manual) 1 % (0-2) Band Neutrophils 0 % (0-8) Platelet Estimate Adequate Platelet Morphology Normal Anisocytosis 1+ Microcytosis 3+ Sodium Level 143 MMOL/L (136-145) Potassium Level 4.0 MMOL/L (3.5-5.1) Chloride Level 107 MMOL/L (98-107) Carbon Dioxide Level 24 MMOL/L (21-32) Anion Gap 12 mmol/L (5-15) Blood Urea Nitrogen 14 mg/dL (7-18) Creatinine 0.6 MG/DL (0.55-1.30) Estimat Glomerular Filtration Rate > 60 mL/min (>60) Glucose Level 88 MG/DL (74-106) Calcium Level 8.0 MG/DL (8.5-10.1) L Current Medications Medications (Trade) Dose Ordered Sig/Monalisa Route PRN Reason Start Time Stop Time Status Last Admin Dose Admin Acetaminophen (Tylenol) 650 mg Q4H PRN GT Mild Pain (Pain Scale 1-3) 11/21/19 11:30 12/21/19 11:29 Acetaminophen (Tylenol) 650 mg Q4H PRN ORAL FEVER, HEADACHE, MILD PAIN 11/21/19 12:00 12/21/19 11:59 Acetaminophen (Tylenol) 650 mg Q4H PRN RECTAL Temp >100.5 11/21/19 11:15 12/21/19 11:14 Al Hydroxide/Mg Hydroxide (Mylanta) 30 ml Q6HR GT 11/21/19 13:15 12/21/19 13:14 11/24/19 11:51 Albuterol Sulfate (Proventil) 2.5 mg Q6H PRN HHN Shortness of Breath 11/21/19 11:15 11/26/19 11:14 Ascorbic Acid (Vitamin C) 500 mg TWICE A DAY GT 11/21/19 18:00 12/21/19 17:59 11/24/19 09:30 Bisacodyl (Dulcolax) 10 mg DAILY PRN RECTAL Constipation 11/21/19 12:00 02/19/20 11:59 Ceftriaxone Sodium 1 gm/ Dextrose 55 ml @ 110 mls/hr Q24H IVPB 11/23/19 21:00 11/30/19 20:59 11/23/19 21:22 Dextrose (Dextrose 50%) 25 ml Q30M PRN IV Hypoglycemia 11/21/19 12:00 02/19/20 11:59 Dextrose (Dextrose 50%) 50 ml Q30M PRN IV Hypoglycemia 11/21/19 12:00 02/19/20 11:59 Docusate Sodium (Colace) 100 mg TWICE A DAY ORAL 11/21/19 18:00 12/21/19 17:59 11/24/19 09:31 Enoxaparin Sodium (Lovenox) 40 mg Q24H SUBQ 11/21/19 13:00 02/19/20 12:59 11/23/19 12:24 Famotidine (Pepcid) 20 mg BEDTIME ORAL 11/21/19 21:00 02/19/20 20:59 11/23/19 21:21 Finasteride (Proscar) 5 mg DAILY ORAL 11/22/19 09:00 02/20/20 08:59 11/24/19 09:31 Heparin Sodium (Porcine) (Heparin 5000 units/ml) 5,000 units EVERY 12 HOURS SUBQ 11/21/19 21:00 01/05/20 20:59 11/24/19 09:30 Hydromorphone HCl (Dilaudid) 1 mg Q8H PRN IVP Moderate Pain (Pain Scale 4-6) 11/21/19 11:15 11/28/19 11:14 Insulin Aspart (NovoLOG) BEFORE MEALS AND HS SUBQ 11/21/19 16:30 02/19/20 16:29 11/23/19 11:45 Insulin Detemir (Levemir) 6 units BEDTIME SUBQ 11/21/19 21:00 02/19/20 20:59 Levetiracetam (Keppra) 2,000 mg BID GT 11/21/19 18:00 12/21/19 17:59 11/24/19 09:31 Lorazepam (Ativan) 1 mg Q6H PRN GT For Anxiety 11/21/19 16:00 11/28/19 15:59 Magnesium Hydroxide (Mom) 30 ml BEDTIME GT 11/21/19 21:00 12/21/19 20:59 11/23/19 21:21 Ondansetron HCl (Zofran) 4 mg Q6H PRN GT Nausea & Vomiting 11/21/19 12:00 12/21/19 11:59 Pantoprazole (Protonix) 40 mg DAILY IV 11/21/19 12:00 12/21/19 11:59 11/24/19 09:31 Polyethylene Glycol (Miralax) 17 gm DAILY PRN GT Constipation 11/21/19 12:00 12/21/19 11:59 Risperidone (RisperDAL) 1 mg DAILY GT 11/22/19 09:00 01/06/20 08:59 11/24/19 09:31 Temazepam (Restoril) 15 mg BEDTIME PRN ORAL Insomnia 11/21/19 12:00 11/28/19 11:59 Vancomycin HCl (Vanco rx to dose) 1 ea DAILY PRN MISC Per rx protocol 11/21/19 16:15 12/21/19 16:14 Vancomycin HCl 1 gm/Dextrose 275 ml @ 183.708 mls/hr Q8H IVPB 11/21/19 18:00 11/26/19 17:59 11/24/19 01:00 Zinc Sulfate (Zinc Sulfate) 220 mg DAILY ORAL 11/22/19 09:00 02/20/20 08:59 11/24/19 09:31 Zolpidem Tartrate (Ambien) 5 mg HSPRN PRN GT Insomnia 11/21/19 11:15 11/28/19 11:14 Dilma Chand M.D. Nov 24, 2019 13:05
--- NOTE | 2019-11-24 13:40 | NUR ---
NURSE NOTES: IV placed by Edward, left upper arm 20g. VAncomycin administered at 1400 after stat order for NS 500ml bolus.
[2019-11-24 16:00] VITALS: BP 94/67
--- NOTE | 2019-11-24 18:59 | Consultation ---
DATE OF CONSULTATION: 11/24/2019 CARDIOLOGY CONSULTATION CONSULTING PHYSICIAN: Sage Araujo MD. REFERRING PHYSICIAN: Donaldo Johnson DO. REASON FOR CONSULTATION: Hypotension. HISTORY OF PRESENT ILLNESS: The patient is a 64-year-old gentleman with history of diabetes, hypertension, seizure disorder, and decubitus ulcer, who was admitted to the hospital for cough and fever. The patient was ruled in for COVID-19 infection x2. Today, the patient was found to be hypotensive with blood pressure in the 80s and Cardiology consultation was obtained for further evaluation. REVIEW OF SYSTEMS: Negative other than what was mentioned in the history of present illness. PAST MEDICAL HISTORY: As mentioned above. ALLERGIES: He has no known drug allergies. MEDICATIONS: Per reconciliation. PHYSICAL EXAMINATION: VITAL SIGNS: Blood pressure of 88/59, pulse 93, respirations 18, and temperature 96.1. HEAD AND NECK: No JVD. LUNGS: Clear. CARDIOVASCULAR: Regular S1 and S2 with no gallop. ABDOMEN: Soft. EXTREMITIES: No pitting edema. LABORATORY AND DIAGNOSTIC DATA: His EKG showed normal sinus rhythm and normal electrocardiogram. Labs showed white count 3.4, hematocrit 13.7, hematocrit 42.8, and platelet count of 151,000. Sodium 142, potassium 4.0, BUN of 14, creatinine 0.6. His COVID-19 is positive on November 19. ASSESSMENT AND PLAN: 1. Hypotension, likely dehydrated especially in view of sepsis. I will discontinue metoprolol and give the patient IV fluids and watch the patient closely. 2. History of hypertension. Again, discontinue metoprolol. 3. COVID-19 pneumonia, on oxygen and pulmonary hygiene. Further evaluation by Dr. Carmichael, on 2 L nasal cannula. 4. Psych disorder. 5. Diabetes. 6. Parkinson's. 7. , likely contaminant. Thank you very much for allowing me to participate in the care of this patient. Please do not hesitate to contact me for any questions regarding my evaluation. Sage Araujo M.D. DR: ELIZABETH JOB#: [id number] CC:
--- NOTE | 2019-11-24 19:30 | NUR ---
NURSE NOTES: Report received from German SORENSEN. Patient is nonverbal and alert and oriented x 0. Patient noted to be on room air, does not appear to be in respiratory distress at this time. Patient noted to have a g tube, but is to be used for medications only per MD orders. Patient is able to eat via PO. Patient noted to have IV in left upper arm 20 jennifer saline lock. Zosyn noted to be running at this time though. Endorsed to Dimas SORENSEN that patients blood pressure was low today, Liter of fluid given per German SORENSEN, Doctor Antoinette aware per German SORENSEN. Patient currently on droplet precautions due to positive covid 19 test. Bed locked, alarmed, and in lowest position. Will continue to follow plan of care.
--- NOTE | 2019-11-24 19:33 | NUR ---
HAND-OFF: Report given to ALEXA SORENSEN.
[2019-11-24 20:00] VITALS: BP 107/61
[2019-11-24] MEDS: Levemir Flexpen SUBQ SCH (21:00)
[2019-11-24] MEDS: Milk of Magnesia 30ml Ud GT SCH (21:05)
--- NOTE | 2019-11-24 22:14 | Progress Note ---
DATE: 11/24/2019 SUBJECTIVE: Gee Leach is a 64-year-old male patient. The patient has fever, cough, respiratory insufficiency, cognitive decline and cognition below his baseline and does require daily psychiatric consultation. He has feelings of hopeless, helpless, low energy, poor appetite, loss of interest in activity, and does require inpatient treatment at this time. He has some mood lability, confusion, disorganized thought process. DIAGNOSIS: Major depressive disorder, mild, recurrent with psychotic features. PLAN: Treat him with Risperdal 1 mg daily. Twenty minutes of reality-based supportive psychotherapy. I encouraged him to interact appropriately with staff and other patients. Twenty minutes of insight-oriented psychotherapy was provided to improve this patient's awareness of his psychiatric symptoms and physical symptoms so he has better awareness and impulse control on the unit. Chart reviewed. Discussed with staff. Seen and assessed at the bedside. Enrrique Escudero M.D. DR: Sofie JOB#: [id number] CC:
[2019-11-25] VITALS: BP 104/64
[2019-11-25] MEDS: Vancomycin 1gm in Dextrose 275ml IVPB SCH ×2 (01:33→10:00)
[2019-11-25 04:00] VITALS: BP 100/60
[2019-11-25] MEDS: NovoLOG Insulin Flexpen SUBQ SCH ×4 (06:30→20:57)
--- NOTE | 2019-11-25 07:20 | NUR ---
HAND-OFF: Report given to Martina SORENSEN.
--- NOTE | 2019-11-25 07:39 | Hematology/Onc Progress Note ---
Assessment/Plan Assessment/Plan Assessment and Recs # Pancytopenia r/o underlying ifnection, may be covid19 related, but need results first, also may be pna related --> hepatitis and hiv are negative --> us of the abdomen has been ordered--> ct recently neg --> p smear is pending--> nos Shistocytes seen --> remains on abx as per id --> transfuse, given plt as needed --> wbc 3.4 -> hgb 13 # Pneumonia, poa --> CXR - R sided lobe infiltrate --> remains on abx # Psych disorder. --> per G Kota # Diabetes mellitus. # Hypertension. # Parkinson's. # Dvt ppx lovenox sq Appreciate consultation and antonio Baez Subjective Constitutional: Denies: no symptoms, chills, fever, malaise, weakness, other HEENT: Denies: no symptoms, eye pain, blurred vision, tearing, double vision, ear pain, ear discharge, nose pain, nose congestion, throat pain, throat swelling, mouth pain, mouth swelling, other Cardiovascular: Denies: no symptoms, chest pain, edema, irregular heart rate, lightheadedness, palpitations, syncope, other Allergies: Coded Allergies: NO KNOWN DRUG ALLERGIES (Unverified Allergy, Unknown, 07/16/19) Subjective 11/22 asleep, no complaints, gtube flushing well, without issue, no bleeding 11/23 remains confused, is awake, no bleeding, labs reviewed\ 11/24 remains very confused, labs ordered, antonio baez Objective Objective Current Medications Medications (Trade) Dose Ordered Sig/Monalisa Route PRN Reason Start Time Stop Time Status Last Admin Dose Admin Acetaminophen (Tylenol) 650 mg Q4H PRN GT Mild Pain (Pain Scale 1-3) 11/21/19 11:30 12/21/19 11:29 Acetaminophen (Tylenol) 650 mg Q4H PRN ORAL FEVER, HEADACHE, MILD PAIN 11/21/19 12:00 12/21/19 11:59 Acetaminophen (Tylenol) 650 mg Q4H PRN RECTAL Temp >100.5 11/21/19 11:15 12/21/19 11:14 Al Hydroxide/Mg Hydroxide (Mylanta) 30 ml Q6HR GT 11/21/19 13:15 12/21/19 13:14 11/25/19 06:00 Albuterol Sulfate (Proventil) 2.5 mg Q6H PRN HHN Shortness of Breath 11/21/19 11:15 11/26/19 11:14 Ascorbic Acid (Vitamin C) 500 mg TWICE A DAY GT 11/21/19 18:00 12/21/19 17:59 11/24/19 18:05 Bisacodyl (Dulcolax) 10 mg DAILY PRN RECTAL Constipation 11/21/19 12:00 02/19/20 11:59 Dextrose (Dextrose 50%) 25 ml Q30M PRN IV Hypoglycemia 11/21/19 12:00 02/19/20 11:59 Dextrose (Dextrose 50%) 50 ml Q30M PRN IV Hypoglycemia 11/21/19 12:00 02/19/20 11:59 Docusate Sodium (Colace) 100 mg TWICE A DAY ORAL 11/21/19 18:00 12/21/19 17:59 11/24/19 09:31 Enoxaparin Sodium (Lovenox) 40 mg Q24H SUBQ 11/21/19 13:00 02/19/20 12:59 11/23/19 12:24 Famotidine (Pepcid) 20 mg BEDTIME ORAL 11/21/19 21:00 02/19/20 20:59 11/24/19 21:05 Finasteride (Proscar) 5 mg DAILY ORAL 11/22/19 09:00 02/20/20 08:59 11/24/19 09:31 Hydromorphone HCl (Dilaudid) 1 mg Q8H PRN IVP Moderate Pain (Pain Scale 4-6) 11/21/19 11:15 11/28/19 11:14 Insulin Aspart (NovoLOG) BEFORE MEALS AND HS SUBQ 11/21/19 16:30 02/19/20 16:29 11/23/19 11:45 Insulin Detemir (Levemir) 6 units BEDTIME SUBQ 11/21/19 21:00 02/19/20 20:59 Levetiracetam (Keppra) 2,000 mg BID GT 11/21/19 18:00 12/21/19 17:59 11/24/19 18:06 Lorazepam (Ativan) 1 mg Q6H PRN GT For Anxiety 11/21/19 16:00 11/28/19 15:59 Magnesium Hydroxide (Mom) 30 ml BEDTIME GT 11/21/19 21:00 12/21/19 20:59 11/24/19 21:05 Ondansetron HCl (Zofran) 4 mg Q6H PRN GT Nausea & Vomiting 11/21/19 12:00 12/21/19 11:59 Pantoprazole (Protonix) 40 mg DAILY IV 11/21/19 12:00 12/21/19 11:59 11/24/19 09:31 Polyethylene Glycol (Miralax) 17 gm DAILY PRN GT Constipation 11/21/19 12:00 12/21/19 11:59 Risperidone (RisperDAL) 1 mg DAILY GT 11/22/19 09:00 01/06/20 08:59 11/24/19 09:31 Temazepam (Restoril) 15 mg BEDTIME PRN ORAL Insomnia 11/21/19 12:00 11/28/19 11:59 Vancomycin HCl (Vanco rx to dose) 1 ea DAILY PRN MISC Per rx protocol 11/21/19 16:15 12/21/19 16:14 Vancomycin HCl 1 gm/Dextrose 275 ml @ 183.708 mls/hr Q8H IVPB 11/21/19 18:00 11/26/19 17:59 11/25/19 01:33 Zinc Sulfate (Zinc Sulfate) 220 mg DAILY ORAL 11/22/19 09:00 02/20/20 08:59 11/24/19 09:31 Zolpidem Tartrate (Ambien) 5 mg HSPRN PRN GT Insomnia 11/21/19 11:15 11/28/19 11:14 Last 24 Hour Vital Signs Date Time Temp Pulse Resp B/P (MAP) Pulse Ox O2 Delivery O2 Flow Rate FiO2 11/25/19 04:00 98.2 84 16 100/60 (73) 94 11/25/19 00:00 98.1 89 17 104/64 (77) 94 11/24/19 21:00 Room Air 11/24/19 20:00 86 18 94 Room Air 21 11/24/19 20:00 98.3 86 16 107/61 (76) 94 11/24/19 16:00 97.9 91 19 94/67 (76) 94 11/24/19 13:43 97 20 93 Room Air 21 11/24/19 12:00 96.1 93 18 88/59 (69) 95 11/24/19 09:00 83 89/59 11/24/19 09:00 Room Air 11/24/19 08:00 97.2 83 18 89/59 (69) 94 11/24/19 04:00 98.1 83 19 91/64 (73) 98 11/24/19 00:00 97.7 109 19 107/65 (79) 93 11/23/19 21:21 80 128/60 11/23/19 21:00 Room Air 11/23/19 20:26 82 18 95 Room Air 21 11/23/19 20:00 98.0 80 21 128/60 (82) 98 11/23/19 16:00 96.3 98 18 123/61 (81) 96 11/23/19 12:00 97.7 108 18 106/59 (75) 93 11/23/19 09:00 98 99/62 11/23/19 09:00 Room Air 11/23/19 08:00 97.6 98 19 99/62 (74) 96 Intake and Output 11/24/19 11/25/19 19:00 07:00 Intake Total 820 ml 515.000 ml Balance 820 ml 515.000 ml Intake Oral 820 ml 240 ml IV Total 275.000 ml # Voids 8 3 # Bowel Movements 1 Labs Test 11/22/19 17:45 11/23/19 07:45 11/24/19 04:00 Vancomycin Level Trough 14.8 ug/mL (5.0-12.0) White Blood Count 3.2 K/UL (4.8-10.8) 3.4 K/UL (4.8-10.8) Red Blood Count 5.84 M/UL (4.70-6.10) 6.32 M/UL (4.70-6.10) Hemoglobin 12.6 G/DL (14.2-18.0) 13.7 G/DL (14.2-18.0) Hematocrit 39.5 % (42.0-52.0) 42.8 % (42.0-52.0) Mean Corpuscular Volume 68 FL (80-99) 68 FL (80-99) Mean Corpuscular Hemoglobin 21.6 PG (27.0-31.0) 21.6 PG (27.0-31.0) Mean Corpuscular Hemoglobin Concent 31.9 G/DL (32.0-36.0) 32.0 G/DL (32.0-36.0) Red Cell Distribution Width 12.8 % (11.6-14.8) 12.6 % (11.6-14.8) Platelet Count 136 K/UL (150-450) 151 K/UL (150-450) Mean Platelet Volume 9.9 FL (6.5-10.1) 8.0 FL (6.5-10.1) Neutrophils (%) (Auto) % (45.0-75.0) % (45.0-75.0) Lymphocytes (%) (Auto) % (20.0-45.0) % (20.0-45.0) Monocytes (%) (Auto) % (1.0-10.0) % (1.0-10.0) Eosinophils (%) (Auto) % (0.0-3.0) % (0.0-3.0) Basophils (%) (Auto) % (0.0-2.0) % (0.0-2.0) Differential Total Cells Counted 100 100 Neutrophils % (Manual) 55 % (45-75) 60 % (45-75) Lymphocytes % (Manual) 35 % (20-45) 29 % (20-45) Monocytes % (Manual) 8 % (1-10) 8 % (1-10) Eosinophils % (Manual) 2 % (0-3) 2 % (0-3) Basophils % (Manual) 0 % (0-2) 1 % (0-2) Band Neutrophils 0 % (0-8) 0 % (0-8) Platelet Estimate Decreased Adequate Platelet Morphology Normal Normal Hypochromasia 1+ Anisocytosis 1+ Microcytosis 1+ 3+ Sodium Level 143 MMOL/L (136-145) 143 MMOL/L (136-145) Potassium Level 3.9 MMOL/L (3.5-5.1) 4.0 MMOL/L (3.5-5.1) Chloride Level 108 MMOL/L (98-107) 107 MMOL/L (98-107) Carbon Dioxide Level 26 MMOL/L (21-32) 24 MMOL/L (21-32) Anion Gap 9 mmol/L (5-15) 12 mmol/L (5-15) Blood Urea Nitrogen 16 mg/dL (7-18) 14 mg/dL (7-18) Creatinine 0.7 MG/DL (0.55-1.30) 0.6 MG/DL (0.55-1.30) Estimat Glomerular Filtration Rate > 60 mL/min (>60) > 60 mL/min (>60) Glucose Level 99 MG/DL (74-106) 88 MG/DL (74-106) Calcium Level 8.3 MG/DL (8.5-10.1) 8.0 MG/DL (8.5-10.1) Height (Feet): 5 Height (Inches): 10.00 Weight (Pounds): 160 Objective Physical Exam Vitals: reviewed, normal Gen: no apparent distress, GCS 15, non-toxic, other - nonverbal Heent; nc, at, eomi Resp: chest non-tender, lungs clear, normal breath sounds, speaking full sentences CV: rrr, no mgr Gi: normal bs Neuro: nonverbal Lymphatic: no adenopathy Afshin Curry MD Nov 25, 2019 07:39
--- NOTE | 2019-11-25 07:45 | NUR ---
NURSE NOTES: Report received from EDU Cochran. Patient is nonverbal in room air, No respiratory distress at this time. g tubeused for medications only per MD orders. IV site intact and patent. Bed locked, alarmed, and in lowest position. Will continue to follow plan of care.
[2019-11-25 08:00] VITALS: BP 91/61
--- NOTE | 2019-11-25 08:38 | General Progress Note ---
Assessment/Plan Problem List: (1) Pancytopenia ICD Codes: D61.818 - Other pancytopenia SNOMED: 559265636 (2) Fever ICD Codes: R50.9 - Fever, unspecified SNOMED: 742419310 (3) Cough ICD Codes: R05 - Cough SNOMED: 52426476 (4) Anemia ICD Codes: D64.9 - Anemia, unspecified SNOMED: 831265082 (5) Diabetes ICD Codes: E11.9 - Diabetes SNOMED: 88944931 (6) PEG (percutaneous endoscopic gastrostomy) adjustment/replacement/removal ICD Codes: Z43.1 - Encounter for attention to gastrostomy SNOMED: 580204303 (7) Decubitus ulcer ICD Codes: L89.90 - Pressure ulcer of unspecified site, unspecified stage SNOMED: 516691425 (8) Acute renal failure ICD Codes: N17.9 - Acute renal failure SNOMED: 91442208 (9) Seizure ICD Codes: R56.9 - Seizure SNOMED: 81130455 (10) Weak ICD Codes: R53.1 - Weakness SNOMED: 45719978 (11) UTI (lower urinary tract infection) ICD Codes: N39.0 - UTI (lower urinary tract infection) SNOMED: 9690604 (12) Suspected COVID-19 virus infection ICD Codes: Z20.828 - Contact with and (suspected) exposure to other viral communicable diseases SNOMED: 724272416 Status: unchanged Assessment/Plan: o2 pulm tx abx pt diet eval cbc bmp am Subjective Constitutional: Reports: weakness Allergies: Coded Allergies: NO KNOWN DRUG ALLERGIES (Unverified Allergy, Unknown, 07/16/19) All Systems: reviewed and negative except above Subjective sleepy calm Objective Last 24 Hour Vital Signs Date Time Temp Pulse Resp B/P (MAP) Pulse Ox O2 Delivery O2 Flow Rate FiO2 11/25/19 04:00 98.2 84 16 100/60 (73) 94 11/25/19 00:00 98.1 89 17 104/64 (77) 94 11/24/19 21:00 Room Air 11/24/19 20:00 86 18 94 Room Air 21 11/24/19 20:00 98.3 86 16 107/61 (76) 94 11/24/19 16:00 97.9 91 19 94/67 (76) 94 11/24/19 13:43 97 20 93 Room Air 21 11/24/19 12:00 96.1 93 18 88/59 (69) 95 11/24/19 09:00 83 89/59 11/24/19 09:00 Room Air Intake and Output 11/24/19 11/25/19 19:00 07:00 Intake Total 820 ml 515.000 ml Balance 820 ml 515.000 ml Intake Oral 820 ml 240 ml IV Total 275.000 ml # Voids 8 3 # Bowel Movements 1 Height (Feet): 5 Height (Inches): 10.00 Weight (Pounds): 160 General Appearance: lethargic EENT: normal ENT inspection Neck: normal alignment Cardiovascular: normal rate, regular rhythm Respiratory/Chest: no respiratory distress, no accessory muscle use Extremities: normal inspection Skin: normal pigmentation Donaldo Johnson DO Nov 25, 2019 08:38
--- NOTE | 2019-11-25 08:51 | NUR ---
CASE MANAGEMENT: INITIAL REVIEW 64YR OLD MALE BIBA FROM [facility] CC: FEVER; COUGH SI:PNA . FEVER . COUGH 98.2 84 16 112/50 94% ON RA WBC 2.6 RBC 7.19 PLT 118 IS:IV CEFEPIME X1 IV ZITHROMAX X1 IVF NS BOLUS X2 CHEST N-TGR-Ngzgry areas of mild increased hazy opacity of suspected in the right lung. This appears most prominent at the right apex. An acute infectious/inflammatory process \:4E MED SURG UNIT DCP: [facility] WHEN STABLE PLAN: (+) BLOOD CX- STAPH EPIDERMIDIS/SAPROPHYTICUS CASE MANAGEMENT: REVIEW 11/23/19 SI:COVID-19 (+) . PNA . UTI . MRSA(+) 96.3 98 18 123/61 96% ON RA WBC 3.2 PLT 136 IS:IV VANCOMYCIN Q8HR IV KEPPRA PO QD IV PROTONIX QD PROSCAR PO QD RISPERDAL GT QD \:4E MED SURG UNIT DCP: [facility] / [facility] WHEN STABLE PLAN: 2D ECHO CASE MANAGEMENT: REVIEW 11/25/19 SI:COVID-19 (+) . PNA . UTI . MRSA(+) 98.2 84 16 100/60 94% ON RA WBC 3.5 CA+8.0 IS:IV VANCOMYCIN Q8HR IV KEPPRA PO QD IV PROTONIX QD PROSCAR PO QD RISPERDAL GT QD \:4E MED SURG UNIT DCP: [facility] / [facility] WHEN STABLE PLAN: REPEAT BLOOD CX- POSSIBLE CONTAMINATED CHEST X-RAY THIS AM
[2019-11-25] MEDS: levETIRAcetam 500mg/5ml Liquid GT SCH ×2 (09:03→17:28)
[2019-11-25] MEDS: Ascorbic Acid 500mg tab GT SCH ×2 (09:03→17:28)
[2019-11-25] MEDS: Pantoprazole Inj IV SCH (09:03)
[2019-11-25] MEDS: Zinc Sulfate 220mg cap ORAL SCH (09:03)
[2019-11-25] MEDS: Docusate 100mg cap ORAL SCH ×2 (09:03→17:28)
[2019-11-25 09:58] LABS: BASOPHILS % (AUTO) 0.8 % (0.0-2.0); EOSINOPHILS % (AUTO) 3.6 % (0.0-3.0); HEMATOCRIT 41.2 % (42.0-52.0); LYMPHOCYTES % (AUTO) 31.5 % (20.0-45.0); MEAN CORPUSCULAR VOLUME 68 FL (80-99); MONOCYTES % (AUTO) 12.2 % (1.0-10.0); PLATELET COUNT 190 K/UL (150-450); RED CELL DISTRIBUTION WIDTH 12.6 % (11.6-14.8); WHITE BLOOD COUNT 3.5 K/UL (4.8-10.8)
--- NOTE | 2019-11-25 10:06 | Pulmonology Progress Note ---
Assessment/Plan Assessment/Plan IMPRESSION: 1. COVID 19 pneumonia. 2. Psych disorder. 3. Diabetes mellitus. 4. Hypertension. 5. Parkinson's. 6. Bacteremia; likely contaminant DISCUSSION: Continue home medications. Continue to provide oxygen and pulmonary hygiene. Currently, the patient is saturating well on nasal oxygen 2 L alternating with RA. Is positive COVID-19. Broad-spectrum antibiotics per ID. I will follow carefully. Abdifatah Carmichael M.D. Subjective Interval Events: None new Constitutional: Reports: no symptoms HEENT: Repors: no symptoms Respiratory: Reports: no symptoms Cardiovascular: Reports: no symptoms Gastrointestinal/Abdominal: Reports: no symptoms Genitourinary: Reports: no symptoms Allergies: Coded Allergies: NO KNOWN DRUG ALLERGIES (Unverified Allergy, Unknown, 07/16/19) All Systems: reviewed and negative except above Objective Last 24 Hour Vital Signs Date Time Temp Pulse Resp B/P (MAP) Pulse Ox O2 Delivery O2 Flow Rate FiO2 11/25/19 04:00 98.2 84 16 100/60 (73) 94 11/25/19 00:00 98.1 89 17 104/64 (77) 94 11/24/19 21:00 Room Air 11/24/19 20:00 86 18 94 Room Air 21 11/24/19 20:00 98.3 86 16 107/61 (76) 94 11/24/19 16:00 97.9 91 19 94/67 (76) 94 11/24/19 13:43 97 20 93 Room Air 21 11/24/19 12:00 96.1 93 18 88/59 (69) 95 Intake and Output 11/24/19 11/25/19 19:00 07:00 Intake Total 820 ml 515.000 ml Balance 820 ml 515.000 ml Intake Oral 820 ml 240 ml IV Total 275.000 ml # Voids 8 3 # Bowel Movements 1 General Appearance: no acute distress HEENT: normocephalic Respiratory/Chest: chest wall non-tender, lungs clear Cardiovascular: normal peripheral pulses Abdomen: normal bowel sounds Laboratory Tests 11/25/19 09:35: White Blood Count 3.5L, Red Blood Count 6.10, Hemoglobin 13.0L, Hematocrit 41.2L , Mean Corpuscular Volume 68L, Mean Corpuscular Hemoglobin 21.4L, Mean Corpuscular Hemoglobin Concent 31.6L, Red Cell Distribution Width 12.6, Platelet Count 190, Mean Platelet Volume 9.2, Neutrophils (%) (Auto) 52.0, Lymphocytes (%) (Auto) 31.5, Monocytes (%) (Auto) 12.2H, Eosinophils (%) (Auto) 3.6H, Basophils (%) (Auto) 0.8, Sodium Level [Pending], Potassium Level [Pending ], Chloride Level [Pending], Carbon Dioxide Level [Pending], Blood Urea Nitrogen [Pending], Creatinine [Pending], Estimat Glomerular Filtration Rate [ Pending], Glucose Level [Pending], Calcium Level [Pending] Current Medications Medications (Trade) Dose Ordered Sig/Monalisa Route PRN Reason Start Time Stop Time Status Last Admin Dose Admin Acetaminophen (Tylenol) 650 mg Q4H PRN GT Mild Pain (Pain Scale 1-3) 11/21/19 11:30 12/21/19 11:29 Acetaminophen (Tylenol) 650 mg Q4H PRN ORAL FEVER, HEADACHE, MILD PAIN 11/21/19 12:00 12/21/19 11:59 Acetaminophen (Tylenol) 650 mg Q4H PRN RECTAL Temp >100.5 11/21/19 11:15 12/21/19 11:14 Al Hydroxide/Mg Hydroxide (Mylanta) 30 ml Q6HR GT 11/21/19 13:15 12/21/19 13:14 11/25/19 06:00 Albuterol Sulfate (Proventil) 2.5 mg Q6H PRN HHN Shortness of Breath 11/21/19 11:15 11/26/19 11:14 Ascorbic Acid (Vitamin C) 500 mg TWICE A DAY GT 11/21/19 18:00 12/21/19 17:59 11/25/19 09:03 Bisacodyl (Dulcolax) 10 mg DAILY PRN RECTAL Constipation 11/21/19 12:00 02/19/20 11:59 Dextrose (Dextrose 50%) 25 ml Q30M PRN IV Hypoglycemia 11/21/19 12:00 02/19/20 11:59 Dextrose (Dextrose 50%) 50 ml Q30M PRN IV Hypoglycemia 11/21/19 12:00 02/19/20 11:59 Docusate Sodium (Colace) 100 mg TWICE A DAY ORAL 11/21/19 18:00 12/21/19 17:59 11/25/19 09:03 Enoxaparin Sodium (Lovenox) 40 mg Q24H SUBQ 11/21/19 13:00 02/19/20 12:59 11/23/19 12:24 Famotidine (Pepcid) 20 mg BEDTIME ORAL 11/21/19 21:00 02/19/20 20:59 11/24/19 21:05 Finasteride (Proscar) 5 mg DAILY ORAL 11/22/19 09:00 02/20/20 08:59 11/25/19 09:03 Hydromorphone HCl (Dilaudid) 1 mg Q8H PRN IVP Moderate Pain (Pain Scale 4-6) 11/21/19 11:15 11/28/19 11:14 Insulin Aspart (NovoLOG) BEFORE MEALS AND HS SUBQ 11/21/19 16:30 02/19/20 16:29 11/23/19 11:45 Insulin Detemir (Levemir) 6 units BEDTIME SUBQ 11/21/19 21:00 02/19/20 20:59 Levetiracetam (Keppra) 2,000 mg BID GT 11/21/19 18:00 12/21/19 17:59 11/25/19 09:03 Lorazepam (Ativan) 1 mg Q6H PRN GT For Anxiety 11/21/19 16:00 11/28/19 15:59 Magnesium Hydroxide (Mom) 30 ml BEDTIME GT 11/21/19 21:00 12/21/19 20:59 11/24/19 21:05 Memantine (Namenda) 5 mg DAILY GT 11/26/19 09:00 12/26/19 08:59 Ondansetron HCl (Zofran) 4 mg Q6H PRN GT Nausea & Vomiting 11/21/19 12:00 12/21/19 11:59 Pantoprazole (Protonix) 40 mg DAILY IV 11/21/19 12:00 12/21/19 11:59 11/25/19 09:03 Polyethylene Glycol (Miralax) 17 gm DAILY PRN GT Constipation 11/21/19 12:00 12/21/19 11:59 Risperidone (RisperDAL) 1 mg DAILY GT 11/22/19 09:00 01/06/20 08:59 11/25/19 09:03 Temazepam (Restoril) 15 mg BEDTIME PRN ORAL Insomnia 11/21/19 12:00 11/28/19 11:59 Vancomycin HCl (Vanco rx to dose) 1 ea DAILY PRN MISC Per rx protocol 11/21/19 16:15 12/21/19 16:14 Vancomycin HCl 1 gm/Dextrose 275 ml @ 183.708 mls/hr Q8H IVPB 11/21/19 18:00 11/26/19 17:59 11/25/19 01:33 Zinc Sulfate (Zinc Sulfate) 220 mg DAILY ORAL 11/22/19 09:00 02/20/20 08:59 11/25/19 09:03 Zolpidem Tartrate (Ambien) 5 mg HSPRN PRN GT Insomnia 11/21/19 11:15 11/28/19 11:14 Abdifatah Carmichael MD Nov 25, 2019 10:06
[2019-11-25 10:14] LABS: ANION GAP 9 mmol/L (5-15); BLOOD UREA NITROGEN 11 mg/dL (7-18); CARBON DIOXIDE 24 MMOL/L (21-32); CHLORIDE 112 MMOL/L (98-107); CREATININE 0.7 MG/DL (0.55-1.30); POTASSIUM 4.4 MMOL/L (3.5-5.1); SODIUM 145 MMOL/L (136-145)
[2019-11-25 12:00] VITALS: BP 99/66
--- NOTE | 2019-11-25 12:14 | NUR ---
RD ASSESSMENT & RECOMMENDATIONS SEE CARE ACTIVITY FOR COMPLETE ASSESSMENT DAILY ESTIMATED NEEDS: Needs based on DM, 69kg 25-30 kcals/kg 9303-7668 total kcals 1.25-1.5 g protein/kg 86-104 g total protein 25-30 mL/kg 6651-5400 total fluid mLs NUTRITION DIAGNOSIS: Swallowing difficulty R/T dysphagia, hx CVA as evidenced by pt h/o PEG, now used for meds, pt on oral diet. CURRENT DIET:CCHO high PO DIET RECOMMENDATIONS: With poor po intake, rec liberalized Regular diet ADDITIONAL RECOMMENDATIONS: 1) Calibrated bed scale for accurate wts 2) Poor po intake, consider GT feeds temporarily-> intake now improved 3) WINDERMAN eval for appropriate texture-> H/o GT 4) Rec WC eval for wound photo 5) Monitor BG w/ poor po intake, consider D5 to prevent hypoglycemia . .
--- NOTE | 2019-11-25 12:21 | Diagnostic Imaging Report ---
Indication: Chest pain, cough Technique: XRAY Chest 1v Comparison: 11/20/2019 Findings: Heart size and mediastinal contours are stable. Unchanged minimal linear atelectasis or scarring in the perihilar right lung. No new focal airspace consolidation.. No pleural effusion, pneumothorax or radiographic evidence to suggest pulmonary edema. No acute osseous abnormality appreciated. IMPRESSION: No significant interval change compared to exam of 11/20/2019. No new focal airspace consolidation.
[2019-11-25] MEDS: Enoxaparin 40mg Inj SUBQ SCH (13:00)
--- NOTE | 2019-11-25 13:34 | NUR ---
NURSE NOTES:WOUND CARE NOTES:Pt presented on admission with Historical surgical scar sacrum with scattered areas of hyperpigmentation from previous wound. Non-blanching erythema christiana cleft. R heel boggy with non-blanching erythema. L heel Boggy with non-blanching erythema. Tx.Plan:Apply Moisture Barrier Paste to Buttocks. Cover with Optifoam drsg. Change every 3 days and prn. Apply Cavilon Skin Barrier to both heels. Cover each heel with Optifoam drsg. Change every 7 days and prn. Reposition at least every 2hours or as tolerated. Off-load heels with pillow. APM/EDELMIRA Mattress overlay.
--- NOTE | 2019-11-25 14:07 | Cardiac Electrophysiology PN ---
Assessment/Plan Assessment/Plan 1. Hypotension, likely dehydrated especially in view of sepsis. Better on IV fluids 2. History of hypertension. Off metoprolol. 3. COVID-19 pneumonia, on oxygen and pulmonary hygiene. Further evaluation by Dr. Carmichael, on 2 L nasal cannula. 4. Psych disorder. 5. Diabetes. 6. Parkinson's. DIXON RN Subjective Subjective No new events. In Covid isolation Objective Last 24 Hour Vital Signs Date Time Temp Pulse Resp B/P (MAP) Pulse Ox O2 Delivery O2 Flow Rate FiO2 11/25/19 09:00 Room Air 11/25/19 08:00 97.7 79 16 91/61 (71) 96 11/25/19 04:00 98.2 84 16 100/60 (73) 94 11/25/19 00:00 98.1 89 17 104/64 (77) 94 11/24/19 21:00 Room Air 11/24/19 20:00 86 18 94 Room Air 21 11/24/19 20:00 98.3 86 16 107/61 (76) 94 11/24/19 16:00 97.9 91 19 94/67 (76) 94 Intake and Output 11/24/19 11/25/19 19:00 07:00 Intake Total 820 ml 515.000 ml Balance 820 ml 515.000 ml Intake Oral 820 ml 240 ml IV Total 275.000 ml # Voids 8 3 # Bowel Movements 1 Laboratory Tests Test 11/25/19 09:35 White Blood Count 3.5 K/UL (4.8-10.8) L Red Blood Count 6.10 M/UL (4.70-6.10) Hemoglobin 13.0 G/DL (14.2-18.0) L Hematocrit 41.2 % (42.0-52.0) L Mean Corpuscular Volume 68 FL (80-99) L Mean Corpuscular Hemoglobin 21.4 PG (27.0-31.0) L Mean Corpuscular Hemoglobin Concent 31.6 G/DL (32.0-36.0) L Red Cell Distribution Width 12.6 % (11.6-14.8) Platelet Count 190 K/UL (150-450) Mean Platelet Volume 9.2 FL (6.5-10.1) Neutrophils (%) (Auto) 52.0 % (45.0-75.0) Lymphocytes (%) (Auto) 31.5 % (20.0-45.0) Monocytes (%) (Auto) 12.2 % (1.0-10.0) H Eosinophils (%) (Auto) 3.6 % (0.0-3.0) H Basophils (%) (Auto) 0.8 % (0.0-2.0) Sodium Level 145 MMOL/L (136-145) Potassium Level 4.4 MMOL/L (3.5-5.1) Chloride Level 112 MMOL/L (98-107) H Carbon Dioxide Level 24 MMOL/L (21-32) Anion Gap 9 mmol/L (5-15) Blood Urea Nitrogen 11 mg/dL (7-18) Creatinine 0.7 MG/DL (0.55-1.30) Estimat Glomerular Filtration Rate > 60 mL/min (>60) Glucose Level 117 MG/DL (74-106) H Calcium Level 8.0 MG/DL (8.5-10.1) L Objective HEAD AND NECK: No JVD. LUNGS: Clear. CARDIOVASCULAR: Regular S1 and S2 with no gallop. ABDOMEN: Soft. EXTREMITIES: No pitting edema. Sage Araujo MD Nov 25, 2019 14:07
[2019-11-25 16:00] VITALS: BP 108/69
--- NOTE | 2019-11-25 17:00 | Progress Note ---
DATE: 11/25/2019 SUBJECTIVE: This is a 64-year-old male patient who is confused and disorganized. He has got mood lability. He has got no logical plan for his own self-care. He has got feelings of helplessness, hopelessness, low energy, poor appetite but basically he has significant decline in cognition below his baseline, lot of psychomotor retardation reason why he is in the hospital right now is because of fever, cough, severe dehydration, sinus tachycardia, , diabetes, respiratory insufficiency, and number of other medical problems, sepsis. He has altered mental status, confusion, and history of paranoid schizophrenia so his attending has requested daily psychiatric consultation to help stabilize his mood to prevent any further decline in his cognition below his baseline, also rule out COVID-19. MENTAL STATUS EXAMINATION: This is a 64-year-old male. Appearance is disheveled. Attitude, irritable and agitated. Affect, guarded and restricted. Intellect poor. Mood, depressed and anxious. Motor activity, psychomotor agitation. Attention span is poor. Orientation x2. Speech is nonsensical. Thought process, disorganized and illogical. Insight and judgment is poor. DIAGNOSIS: Major depressive disorder, mild, recurrent with psychotic features rule out dementia with psychosis. PLAN: Treat with Risperdal 1 mg per G-tube a day, Ativan 1 mg per G-tube q.6 hours p.r.n. anxiety and agitation, and also I am going to add dose of Namenda at a dose of 5 mg per G-tube twice a day to try to prevent any further decline in his cognition and he will continued to be followed by Psychiatry throughout hospital course. A 20-minutes of insight-oriented psychotherapy to help him have a better understanding of his cognitive and physical conditions so overall he have better impulse control, behavior and understanding of the unit. Chart reviewed and discussed with staff. Seen and assessed at bedside. Enrrique Escudero M.D. DR: Divya JOB#: [id number] CC:
--- NOTE | 2019-11-25 17:45 | Infectious Diseases Prog Note ---
Assessment/Plan Assessment/Plan Assessment: Pnuemonia- currently at [facility]- [facility]ry to COVID19 (resident at [place] w/ multiple confirmed cases) -11/24 CXR: No significant interval change compared to exam of 11/20/2019. No new focal airspace consolidation. -CXR: Patchy areas of mild increased hazy opacity of suspected in the right lung. This appears most prominent at the right apex. An acute infectious/ inflammatory process should be considered. There is question of a vertebral body compression fracture of the lower thoracic spine. Gram positive bacteremia- contaminant -11/19 Bcx / S. saprophyticus, / S.epi; 11/20 Bcx NTD Probable UTI -u/a wbc 5-10, nit neg, leuk +1; ucx Neg Afebrile (reported Fever [employer]IST) Leukopenia/pancytopenia -thrombocytopenia resolved Dm2 HTN seizure disorder dysphagia s/p GT decubitus ulcer FTT cerebral palsy COPD CVA/TIA paranoid schizophrenia non verbal SNF resident (Zaria Good) Plan: -Dc empiric IV Vancomycin #5 and monitor off abx -11/23 SP Ceftriaxone #2 -11/22 SP Meropenem #3 -11/19 SP CEftriaxone x1, Azithromycin x1 -f/u cx -Monitor CBC/CMP, temperatures -f/u repeat Bcx x2 -COVID 19 isolation -PEG care -aspiration precautions -CXR am Thank you for consulting [facility]. Will continue to follow along with you. Discussed with RN. Subjective Allergies: Coded Allergies: NO KNOWN DRUG ALLERGIES (Unverified Allergy, Unknown, 07/16/19) Subjective afebrile at repeat bx NTD Objective Vital Signs Last 24 Hour Vital Signs Date Time Temp Pulse Resp B/P (MAP) Pulse Ox O2 Delivery O2 Flow Rate FiO2 11/25/19 12:00 96.4 93 17 99/66 (77) 94 11/25/19 09:42 82 18 95 Room Air 21 11/25/19 09:00 Room Air 11/25/19 08:00 97.7 79 16 91/61 (71) 96 11/25/19 04:00 98.2 84 16 100/60 (73) 94 11/25/19 00:00 98.1 89 17 104/64 (77) 94 11/24/19 21:00 Room Air 11/24/19 20:00 86 18 94 Room Air 21 11/24/19 20:00 98.3 86 16 107/61 (76) 94 Height (Feet): 5 Height (Inches): 10.00 Weight (Pounds): 160 Objective not examined to limit COVID19 exposure Laboratory Tests Test 11/25/19 09:35 White Blood Count 3.5 K/UL (4.8-10.8) L Red Blood Count 6.10 M/UL (4.70-6.10) Hemoglobin 13.0 G/DL (14.2-18.0) L Hematocrit 41.2 % (42.0-52.0) L Mean Corpuscular Volume 68 FL (80-99) L Mean Corpuscular Hemoglobin 21.4 PG (27.0-31.0) L Mean Corpuscular Hemoglobin Concent 31.6 G/DL (32.0-36.0) L Red Cell Distribution Width 12.6 % (11.6-14.8) Platelet Count 190 K/UL (150-450) Mean Platelet Volume 9.2 FL (6.5-10.1) Neutrophils (%) (Auto) 52.0 % (45.0-75.0) Lymphocytes (%) (Auto) 31.5 % (20.0-45.0) Monocytes (%) (Auto) 12.2 % (1.0-10.0) H Eosinophils (%) (Auto) 3.6 % (0.0-3.0) H Basophils (%) (Auto) 0.8 % (0.0-2.0) Sodium Level 145 MMOL/L (136-145) Potassium Level 4.4 MMOL/L (3.5-5.1) Chloride Level 112 MMOL/L (98-107) H Carbon Dioxide Level 24 MMOL/L (21-32) Anion Gap 9 mmol/L (5-15) Blood Urea Nitrogen 11 mg/dL (7-18) Creatinine 0.7 MG/DL (0.55-1.30) Estimat Glomerular Filtration Rate > 60 mL/min (>60) Glucose Level 117 MG/DL (74-106) H Calcium Level 8.0 MG/DL (8.5-10.1) L Current Medications Medications (Trade) Dose Ordered Sig/Monalisa Route PRN Reason Start Time Stop Time Status Last Admin Dose Admin Acetaminophen (Tylenol) 650 mg Q4H PRN GT Mild Pain (Pain Scale 1-3) 11/21/19 11:30 12/21/19 11:29 Acetaminophen (Tylenol) 650 mg Q4H PRN ORAL FEVER, HEADACHE, MILD PAIN 11/21/19 12:00 12/21/19 11:59 Acetaminophen (Tylenol) 650 mg Q4H PRN RECTAL Temp >100.5 11/21/19 11:15 12/21/19 11:14 Al Hydroxide/Mg Hydroxide (Mylanta) 30 ml Q6HR GT 11/21/19 13:15 12/21/19 13:14 11/25/19 12:00 Albuterol Sulfate (Proventil) 2.5 mg Q6H PRN HHN Shortness of Breath 11/21/19 11:15 11/26/19 11:14 Ascorbic Acid (Vitamin C) 500 mg TWICE A DAY GT 11/21/19 18:00 12/21/19 17:59 11/25/19 09:03 Bisacodyl (Dulcolax) 10 mg DAILY PRN RECTAL Constipation 11/21/19 12:00 02/19/20 11:59 Dextrose (Dextrose 50%) 25 ml Q30M PRN IV Hypoglycemia 11/21/19 12:00 02/19/20 11:59 Dextrose (Dextrose 50%) 50 ml Q30M PRN IV Hypoglycemia 11/21/19 12:00 02/19/20 11:59 Docusate Sodium (Colace) 100 mg TWICE A DAY ORAL 11/21/19 18:00 12/21/19 17:59 11/25/19 09:03 Enoxaparin Sodium (Lovenox) 40 mg Q24H SUBQ 11/21/19 13:00 02/19/20 12:59 11/25/19 13:00 Famotidine (Pepcid) 20 mg BEDTIME ORAL 11/21/19 21:00 02/19/20 20:59 11/24/19 21:05 Finasteride (Proscar) 5 mg DAILY ORAL 11/22/19 09:00 02/20/20 08:59 11/25/19 09:03 Hydromorphone HCl (Dilaudid) 1 mg Q8H PRN IVP Moderate Pain (Pain Scale 4-6) 11/21/19 11:15 11/28/19 11:14 Insulin Aspart (NovoLOG) BEFORE MEALS AND HS SUBQ 11/21/19 16:30 02/19/20 16:29 11/23/19 11:45 Insulin Detemir (Levemir) 6 units BEDTIME SUBQ 11/21/19 21:00 02/19/20 20:59 Levetiracetam (Keppra) 2,000 mg BID GT 11/21/19 18:00 12/21/19 17:59 11/25/19 09:03 Lorazepam (Ativan) 1 mg Q6H PRN GT For Anxiety 11/21/19 16:00 11/28/19 15:59 Magnesium Hydroxide (Mom) 30 ml BEDTIME GT 11/21/19 21:00 12/21/19 20:59 11/24/19 21:05 Memantine (Namenda) 5 mg DAILY GT 11/26/19 09:00 12/26/19 08:59 Ondansetron HCl (Zofran) 4 mg Q6H PRN GT Nausea & Vomiting 11/21/19 12:00 12/21/19 11:59 Pantoprazole (Protonix) 40 mg DAILY IV 11/21/19 12:00 12/21/19 11:59 11/25/19 09:03 Polyethylene Glycol (Miralax) 17 gm DAILY PRN GT Constipation 11/21/19 12:00 12/21/19 11:59 Risperidone (RisperDAL) 1 mg DAILY GT 11/22/19 09:00 01/06/20 08:59 11/25/19 09:03 Temazepam (Restoril) 15 mg BEDTIME PRN ORAL Insomnia 11/21/19 12:00 11/28/19 11:59 Vancomycin HCl (Vanco rx to dose) 1 ea DAILY PRN MISC Per rx protocol 11/21/19 16:15 12/21/19 16:14 Vancomycin HCl 1 gm/Dextrose 275 ml @ 183.708 mls/hr Q8H IVPB 11/21/19 18:00 11/26/19 17:59 11/25/19 10:00 Zinc Sulfate (Zinc Sulfate) 220 mg DAILY ORAL 11/22/19 09:00 02/20/20 08:59 4/29/20 09:03 Zolpidem Tartrate (Ambien) 5 mg HSPRN PRN GT Insomnia 11/21/19 11:15 11/28/19 11:14 Dilma Chand M.D. Nov 25, 2019 17:45
--- NOTE | 2019-11-25 19:36 | NUR ---
HAND-OFF: Report given to EDU Cai.
--- NOTE | 2019-11-25 19:37 | NUR ---
NURSE NOTES: Patient in bed, awake and confused. No distress or SOB. IV in place and patent. Bed locked and in lowest position. Will continue to monitor.
[2019-11-25 20:00] VITALS: BP 83/47
[2019-11-25] MEDS: Milk of Magnesia 30ml Ud GT SCH (20:49)
[2019-11-25] MEDS: Levemir Flexpen SUBQ SCH (20:57)
--- NOTE | 2019-11-25 20:57 | NUR ---
NURSE NOTES: BS noted to be 83/47. Left message for Dr. Johnson. Awaiting orders.
--- NOTE | 2019-11-25 22:21 | NUR ---
NURSE NOTES: Spoke with Dr. Araujo regarding patient's BP. 500cc NS bolus ordered. Will continue plan of care as ordered.
--- NOTE | 2019-11-25 23:20 | NUR ---
HAND-OFF: Report given to EDU Chapman.
--- NOTE | 2019-11-25 23:21 | NUR ---
NURSE NOTES: Received patient in bed. A&OX1, confused. IV site patent and intact. G-tube in place and clamped. Bed in lowest position. Call light within reach. Will continue to monitor.
[2019-11-26] VITALS: BP 103/65
[2019-11-26 04:00] VITALS: BP 100/71
[2019-11-26 06:01] LABS: BASOPHILS % (AUTO) 1.5 % (0.0-2.0); EOSINOPHILS % (AUTO) 5.3 % (0.0-3.0); HEMATOCRIT 37.9 % (42.0-52.0); HEMOGLOBIN 12.1 G/DL (14.2-18.0); LYMPHOCYTES % (AUTO) 48.2 % (20.0-45.0); MEAN CORPUSCULAR VOLUME 67 FL (80-99); MONOCYTES % (AUTO) 11.9 % (1.0-10.0); NEUTROPHILS % (AUTO) 33.2 % (45.0-75.0); PLATELET COUNT 166 K/UL (150-450); RED BLOOD COUNT 5.66 M/UL (4.70-6.10); RED CELL DISTRIBUTION WIDTH 12.5 % (11.6-14.8); WHITE BLOOD COUNT 3.5 K/UL (4.8-10.8)
[2019-11-26] MEDS: NovoLOG Insulin Flexpen SUBQ SCH ×4 (06:30→21:00)
[2019-11-26 06:40] LABS: ANION GAP 9 mmol/L (5-15); BLOOD UREA NITROGEN 11 mg/dL (7-18); CALCIUM 8.2 MG/DL (8.5-10.1); CARBON DIOXIDE 24 MMOL/L (21-32); CHLORIDE 108 MMOL/L (98-107); CREATININE 0.7 MG/DL (0.55-1.30); POTASSIUM 3.9 MMOL/L (3.5-5.1); SODIUM 141 MMOL/L (136-145)
--- NOTE | 2019-11-26 07:25 | NUR ---
NURSE NOTES: Received patient in bed. Awake, nonverbal. On room, air, respirations unlabored. IV in the Left upper arm, site is intact. No signs of pain noted. Bed at the lowest position, bed alarm on, call light within reach.
--- NOTE | 2019-11-26 07:30 | NUR ---
HAND-OFF: Report given to Herrera SORENSEN.
[2019-11-26 08:00] VITALS: BP 93/67
[2019-11-26] MEDS: Docusate 100mg cap ORAL SCH ×2 (08:58→17:00)
[2019-11-26] MEDS: Zinc Sulfate 220mg cap ORAL SCH (08:58)
[2019-11-26] MEDS: levETIRAcetam 500mg/5ml Liquid GT SCH ×2 (08:58→17:00)
[2019-11-26] MEDS: Ascorbic Acid 500mg tab GT SCH ×2 (08:58→17:00)
[2019-11-26] MEDS: Memantine 5 MG TAB GT SCH (08:58)
[2019-11-26] MEDS: Pantoprazole Inj IV SCH (08:58)
--- NOTE | 2019-11-26 11:00 | General Progress Note ---
Assessment/Plan Problem List: (1) Pancytopenia ICD Codes: D61.818 - Other pancytopenia SNOMED: 272077705 (2) Fever ICD Codes: R50.9 - Fever, unspecified SNOMED: 471524795 (3) Cough ICD Codes: R05 - Cough SNOMED: 18912458 (4) Anemia ICD Codes: D64.9 - Anemia, unspecified SNOMED: 093654511 (5) Diabetes ICD Codes: E11.9 - Diabetes SNOMED: 71273195 (6) PEG (percutaneous endoscopic gastrostomy) adjustment/replacement/removal ICD Codes: Z43.1 - Encounter for attention to gastrostomy SNOMED: 692685053 (7) Decubitus ulcer ICD Codes: L89.90 - Pressure ulcer of unspecified site, unspecified stage SNOMED: 405286709 (8) Acute renal failure ICD Codes: N17.9 - Acute renal failure SNOMED: 74433481 (9) Seizure ICD Codes: R56.9 - Seizure SNOMED: 13535362 (10) Weak ICD Codes: R53.1 - Weakness SNOMED: 84847523 (11) UTI (lower urinary tract infection) ICD Codes: N39.0 - UTI (lower urinary tract infection) SNOMED: 9862573 (12) Suspected COVID-19 virus infection ICD Codes: Z20.828 - Contact with and (suspected) exposure to other viral communicable diseases SNOMED: 133686097 Status: unchanged Assessment/Plan: o2 pulm tx abx pt diet eval cbc bmp am Subjective Constitutional: Reports: weakness Allergies: Coded Allergies: NO KNOWN DRUG ALLERGIES (Unverified Allergy, Unknown, 07/16/19) All Systems: reviewed and negative except above Subjective sleepy calm Objective Last 24 Hour Vital Signs Date Time Temp Pulse Resp B/P (MAP) Pulse Ox O2 Delivery O2 Flow Rate FiO2 11/26/19 09:00 Room Air 11/26/19 08:00 97.3 81 20 93/67 (76) 95 11/26/19 04:00 97.6 80 20 100/71 (81) 95 11/26/19 00:00 97.9 84 20 103/65 (78) 97 11/25/19 21:00 Room Air 11/25/19 20:00 98.3 90 18 83/47 (59) 94 11/25/19 19:38 88 18 94 Room Air 21 11/25/19 16:00 97.2 88 17 108/69 (82) 94 11/25/19 12:00 96.4 93 17 99/66 (77) 94 Intake and Output 11/25/19 11/26/19 19:00 07:00 Intake Total 480 ml Balance 480 ml Intake Oral 480 ml # Voids 3 2 Laboratory Tests 11/26/19 03:45: White Blood Count 3.5L, Red Blood Count 5.66, Hemoglobin 12.1L, Hematocrit 37.9L , Mean Corpuscular Volume 67L, Mean Corpuscular Hemoglobin 21.4L, Mean Corpuscular Hemoglobin Concent 31.9L, Red Cell Distribution Width 12.5, Platelet Count 166, Mean Platelet Volume 7.0, Neutrophils (%) (Auto) 33.2L, Lymphocytes (%) (Auto) 48.2H, Monocytes (%) (Auto) 11.9H, Eosinophils (%) (Auto ) 5.3H, Basophils (%) (Auto) 1.5, Sodium Level 141, Potassium Level 3.9, Chloride Level 108H, Carbon Dioxide Level 24, Anion Gap 9, Blood Urea Nitrogen 11, Creatinine 0.7, Estimat Glomerular Filtration Rate > 60, Glucose Level 86, Calcium Level 8.2L Height (Feet): 5 Height (Inches): 10.00 Weight (Pounds): 160 General Appearance: lethargic EENT: normal ENT inspection Neck: normal alignment Cardiovascular: normal rate, regular rhythm Respiratory/Chest: no respiratory distress, no accessory muscle use Extremities: normal inspection Skin: normal pigmentation Donaldo Johnson DO Nov 26, 2019 11:00
[2019-11-26 12:00] VITALS: BP 95/58
[2019-11-26] MEDS: Enoxaparin 40mg Inj SUBQ SCH (12:13)
--- NOTE | 2019-11-26 12:16 | Pulmonology Progress Note ---
Assessment/Plan Assessment/Plan IMPRESSION: 1. COVID 19 pneumonia. 2. Psych disorder. 3. Diabetes mellitus. 4. Hypertension. 5. Parkinson's. 6. Bacteremia; likely contaminant DISCUSSION: Continue home medications. Continue to provide oxygen and pulmonary hygiene. Currently, the patient is saturating well on nasal oxygen 2 L alternating with RA. Is positive COVID-19. Broad-spectrum antibiotics per ID. I will follow carefully. Abdifatah Carmichael M.D. Subjective Interval Events: None new Constitutional: Reports: no symptoms HEENT: Repors: no symptoms Respiratory: Reports: no symptoms Cardiovascular: Reports: no symptoms Gastrointestinal/Abdominal: Reports: no symptoms Genitourinary: Reports: no symptoms Allergies: Coded Allergies: NO KNOWN DRUG ALLERGIES (Unverified Allergy, Unknown, 07/16/19) All Systems: reviewed and negative except above Objective Last 24 Hour Vital Signs Date Time Temp Pulse Resp B/P (MAP) Pulse Ox O2 Delivery O2 Flow Rate FiO2 11/26/19 09:00 Room Air 11/26/19 08:00 97.3 81 20 93/67 (76) 95 11/26/19 04:00 97.6 80 20 100/71 (81) 95 11/26/19 00:00 97.9 84 20 103/65 (78) 97 11/25/19 21:00 Room Air 11/25/19 20:00 98.3 90 18 83/47 (59) 94 11/25/19 19:38 88 18 94 Room Air 21 11/25/19 16:00 97.2 88 17 108/69 (82) 94 Intake and Output 11/25/19 11/26/19 19:00 07:00 Intake Total 480 ml Balance 480 ml Intake Oral 480 ml # Voids 3 2 General Appearance: no acute distress HEENT: normocephalic Respiratory/Chest: chest wall non-tender, lungs clear Cardiovascular: normal peripheral pulses Abdomen: normal bowel sounds Laboratory Tests 11/26/19 03:45: White Blood Count 3.5L, Red Blood Count 5.66, Hemoglobin 12.1L, Hematocrit 37.9L , Mean Corpuscular Volume 67L, Mean Corpuscular Hemoglobin 21.4L, Mean Corpuscular Hemoglobin Concent 31.9L, Red Cell Distribution Width 12.5, Platelet Count 166, Mean Platelet Volume 7.0, Neutrophils (%) (Auto) 33.2L, Lymphocytes (%) (Auto) 48.2H, Monocytes (%) (Auto) 11.9H, Eosinophils (%) (Auto ) 5.3H, Basophils (%) (Auto) 1.5, Sodium Level 141, Potassium Level 3.9, Chloride Level 108H, Carbon Dioxide Level 24, Anion Gap 9, Blood Urea Nitrogen 11, Creatinine 0.7, Estimat Glomerular Filtration Rate > 60, Glucose Level 86, Calcium Level 8.2L Current Medications Medications (Trade) Dose Ordered Sig/Monalisa Route PRN Reason Start Time Stop Time Status Last Admin Dose Admin Acetaminophen (Tylenol) 650 mg Q4H PRN GT Mild Pain (Pain Scale 1-3) 11/21/19 11:30 12/21/19 11:29 Acetaminophen (Tylenol) 650 mg Q4H PRN ORAL FEVER, HEADACHE, MILD PAIN 11/21/19 12:00 12/21/19 11:59 Acetaminophen (Tylenol) 650 mg Q4H PRN RECTAL Temp >100.5 11/21/19 11:15 12/21/19 11:14 Al Hydroxide/Mg Hydroxide (Mylanta) 30 ml Q6HR GT 11/21/19 13:15 12/21/19 13:14 11/26/19 11:57 Ascorbic Acid (Vitamin C) 500 mg TWICE A DAY GT 11/21/19 18:00 12/21/19 17:59 11/26/19 08:58 Bisacodyl (Dulcolax) 10 mg DAILY PRN RECTAL Constipation 11/21/19 12:00 02/19/20 11:59 Dextrose (Dextrose 50%) 25 ml Q30M PRN IV Hypoglycemia 11/21/19 12:00 02/19/20 11:59 Dextrose (Dextrose 50%) 50 ml Q30M PRN IV Hypoglycemia 11/21/19 12:00 02/19/20 11:59 Docusate Sodium (Colace) 100 mg TWICE A DAY ORAL 11/21/19 18:00 12/21/19 17:59 11/26/19 08:58 Enoxaparin Sodium (Lovenox) 40 mg Q24H SUBQ 11/21/19 13:00 02/19/20 12:59 11/26/19 12:13 Famotidine (Pepcid) 20 mg BEDTIME ORAL 11/21/19 21:00 02/19/20 20:59 11/25/19 20:49 Finasteride (Proscar) 5 mg DAILY ORAL 11/22/19 09:00 02/20/20 08:59 11/26/19 08:58 Hydromorphone HCl (Dilaudid) 1 mg Q8H PRN IVP Moderate Pain (Pain Scale 4-6) 11/21/19 11:15 11/28/19 11:14 Insulin Aspart (NovoLOG) BEFORE MEALS AND HS SUBQ 11/21/19 16:30 02/19/20 16:29 11/23/19 11:45 Insulin Detemir (Levemir) 6 units BEDTIME SUBQ 11/21/19 21:00 02/19/20 20:59 Levetiracetam (Keppra) 2,000 mg BID GT 11/21/19 18:00 12/21/19 17:59 11/26/19 08:58 Lorazepam (Ativan) 1 mg Q6H PRN GT For Anxiety 11/21/19 16:00 11/28/19 15:59 Magnesium Hydroxide (Mom) 30 ml BEDTIME GT 11/21/19 21:00 12/21/19 20:59 11/24/19 21:05 Memantine (Namenda) 5 mg DAILY GT 11/26/19 09:00 12/26/19 08:59 11/26/19 08:58 Ondansetron HCl (Zofran) 4 mg Q6H PRN GT Nausea & Vomiting 11/21/19 12:00 12/21/19 11:59 Pantoprazole (Protonix) 40 mg DAILY IV 11/21/19 12:00 12/21/19 11:59 11/26/19 08:58 Polyethylene Glycol (Miralax) 17 gm DAILY PRN GT Constipation 11/21/19 12:00 12/21/19 11:59 Risperidone (RisperDAL) 1 mg DAILY GT 11/22/19 09:00 01/06/20 08:59 11/26/19 08:58 Temazepam (Restoril) 15 mg BEDTIME PRN ORAL Insomnia 11/21/19 12:00 11/28/19 11:59 Zinc Sulfate (Zinc Sulfate) 220 mg DAILY ORAL 11/22/19 09:00 02/20/20 08:59 11/26/19 08:58 Zolpidem Tartrate (Ambien) 5 mg HSPRN PRN GT Insomnia 11/21/19 11:15 11/28/19 11:14 Abdifatah Carmichael MD Nov 26, 2019 12:16
--- NOTE | 2019-11-26 12:40 | Hematology/Onc Progress Note ---
Assessment/Plan Assessment/Plan Assessment and Recs # Pancytopenia r/o underlying ifnection, may be covid19 related, but need results first, also may be pna related --> hepatitis and hiv are negative --> us of the abdomen has been ordered--> ct recently neg --> p smear is pending--> nos Shistocytes seen --> remains on abx as per id --> transfuse, given plt as needed --> wbc 3.4->3.5 -> hgb 13-->12 # Pneumonia, poa --> CXR - R sided lobe infiltrate --> remains on abx # Psych disorder. --> per G Kota # Diabetes mellitus. # Hypertension. # Parkinson's. # Dvt ppx lovenox sq Appreciate consultation and antonio Rn Subjective HEENT: Denies: no symptoms, eye pain, blurred vision, tearing, double vision, ear pain, ear discharge, nose pain, nose congestion, throat pain, throat swelling, mouth pain, mouth swelling, other Cardiovascular: Denies: no symptoms, chest pain, edema, irregular heart rate, lightheadedness, palpitations, syncope, other Respiratory: Denies: no symptoms, cough, shortness of breath, SOB with excertion, SOB at rest, sputum, wheezing, other Gastrointestinal/Abdominal: Denies: no symptoms, abdomen distended, abdominal pain, black stools, tarry stools, blood in stool, constipated, diarrhea, difficulty swallowing, nausea, poor appetite, poor fluid intake, rectal bleeding , vomiting, other Genitourinary: Denies: no symptoms, burning, discharge, frequency, flank pain, hematuria, incontinence, pain, urgency, other Neurologic/Psychiatric: Denies: no symptoms, anxiety, depressed, emotional problems, headache, numbness, paresthesia, pre-existing deficit, seizure, tingling, tremors, weakness, other Endocrine: Denies: no symptoms, excessive sweating, flushing, intolerance to cold, intolerance to heat, increased hunger, increased thirst, increased urine, unexplained weight gain, unexplained weight loss, other Hematologic/Lymphatic: Denies: no symptoms, anemia, easy bleeding, easy bruising, adenopathy, other Allergies: Coded Allergies: NO KNOWN DRUG ALLERGIES (Unverified Allergy, Unknown, 07/16/19) Subjective 11/22 nonverbal, asleep, no complaints, gtube flushing well, without issue, no bleeding 11/23 remains confused, is awake, no bleeding, labs reviewed\ 11/24 remains very confused, labs ordered, dw rn 11/25 no major events, bp was low last night, fluids given Objective Objective Current Medications Medications (Trade) Dose Ordered Sig/Monalisa Route PRN Reason Start Time Stop Time Status Last Admin Dose Admin Acetaminophen (Tylenol) 650 mg Q4H PRN GT Mild Pain (Pain Scale 1-3) 11/21/19 11:30 12/21/19 11:29 Acetaminophen (Tylenol) 650 mg Q4H PRN ORAL FEVER, HEADACHE, MILD PAIN 11/21/19 12:00 12/21/19 11:59 Acetaminophen (Tylenol) 650 mg Q4H PRN RECTAL Temp >100.5 11/21/19 11:15 12/21/19 11:14 Al Hydroxide/Mg Hydroxide (Mylanta) 30 ml Q6HR GT 11/21/19 13:15 12/21/19 13:14 11/26/19 11:57 Ascorbic Acid (Vitamin C) 500 mg TWICE A DAY GT 11/21/19 18:00 12/21/19 17:59 11/26/19 08:58 Bisacodyl (Dulcolax) 10 mg DAILY PRN RECTAL Constipation 11/21/19 12:00 02/19/20 11:59 Dextrose (Dextrose 50%) 25 ml Q30M PRN IV Hypoglycemia 11/21/19 12:00 02/19/20 11:59 Dextrose (Dextrose 50%) 50 ml Q30M PRN IV Hypoglycemia 11/21/19 12:00 02/19/20 11:59 Docusate Sodium (Colace) 100 mg TWICE A DAY ORAL 11/21/19 18:00 12/21/19 17:59 11/26/19 08:58 Enoxaparin Sodium (Lovenox) 40 mg Q24H SUBQ 11/21/19 13:00 02/19/20 12:59 11/26/19 12:13 Famotidine (Pepcid) 20 mg BEDTIME ORAL 11/21/19 21:00 02/19/20 20:59 11/25/19 20:49 Finasteride (Proscar) 5 mg DAILY ORAL 11/22/19 09:00 02/20/20 08:59 11/26/19 08:58 Hydromorphone HCl (Dilaudid) 1 mg Q8H PRN IVP Moderate Pain (Pain Scale 4-6) 11/21/19 11:15 11/28/19 11:14 Insulin Aspart (NovoLOG) BEFORE MEALS AND HS SUBQ 11/21/19 16:30 02/19/20 16:29 11/23/19 11:45 Insulin Detemir (Levemir) 6 units BEDTIME SUBQ 11/21/19 21:00 02/19/20 20:59 Levetiracetam (Keppra) 2,000 mg BID GT 11/21/19 18:00 12/21/19 17:59 11/26/19 08:58 Lorazepam (Ativan) 1 mg Q6H PRN GT For Anxiety 11/21/19 16:00 11/28/19 15:59 Magnesium Hydroxide (Mom) 30 ml BEDTIME GT 11/21/19 21:00 12/21/19 20:59 11/24/19 21:05 Memantine (Namenda) 5 mg DAILY GT 11/26/19 09:00 12/26/19 08:59 11/26/19 08:58 Ondansetron HCl (Zofran) 4 mg Q6H PRN GT Nausea & Vomiting 11/21/19 12:00 12/21/19 11:59 Pantoprazole (Protonix) 40 mg DAILY IV 11/21/19 12:00 12/21/19 11:59 11/26/19 08:58 Polyethylene Glycol (Miralax) 17 gm DAILY PRN GT Constipation 11/21/19 12:00 12/21/19 11:59 Risperidone (RisperDAL) 1 mg DAILY GT 11/22/19 09:00 01/06/20 08:59 11/26/19 08:58 Temazepam (Restoril) 15 mg BEDTIME PRN ORAL Insomnia 11/21/19 12:00 11/28/19 11:59 Zinc Sulfate (Zinc Sulfate) 220 mg DAILY ORAL 11/22/19 09:00 02/20/20 08:59 11/26/19 08:58 Zolpidem Tartrate (Ambien) 5 mg HSPRN PRN GT Insomnia 11/21/19 11:15 11/28/19 11:14 Last 24 Hour Vital Signs Date Time Temp Pulse Resp B/P (MAP) Pulse Ox O2 Delivery O2 Flow Rate FiO2 11/26/19 12:00 97.8 100 20 95/58 (70) 95 11/26/19 09:00 Room Air 11/26/19 08:00 97.3 81 20 93/67 (76) 95 11/26/19 04:00 97.6 80 20 100/71 (81) 95 11/26/19 00:00 97.9 84 20 103/65 (78) 97 11/25/19 21:00 Room Air 11/25/19 20:00 98.3 90 18 83/47 (59) 94 11/25/19 19:38 88 18 94 Room Air 21 11/25/19 16:00 97.2 88 17 108/69 (82) 94 11/25/19 12:00 96.4 93 17 99/66 (77) 94 11/25/19 09:42 82 18 95 Room Air 21 11/25/19 09:00 Room Air 11/25/19 08:00 97.7 79 16 91/61 (71) 96 11/25/19 04:00 98.2 84 16 100/60 (73) 94 11/25/19 00:00 98.1 89 17 104/64 (77) 94 11/24/19 21:00 Room Air 11/24/19 20:00 86 18 94 Room Air 21 11/24/19 20:00 98.3 86 16 107/61 (76) 94 11/24/19 16:00 97.9 91 19 94/67 (76) 94 11/24/19 13:43 97 20 93 Room Air 21 Intake and Output 11/25/19 11/26/19 19:00 07:00 Intake Total 480 ml Balance 480 ml Intake Oral 480 ml # Voids 3 2 Labs Test 11/24/19 04:00 11/25/19 09:35 11/26/19 03:45 White Blood Count 3.4 K/UL (4.8-10.8) 3.5 K/UL (4.8-10.8) 3.5 K/UL (4.8-10.8) Red Blood Count 6.32 M/UL (4.70-6.10) 6.10 M/UL (4.70-6.10) 5.66 M/UL (4.70-6.10) Hemoglobin 13.7 G/DL (14.2-18.0) 13.0 G/DL (14.2-18.0) 12.1 G/DL (14.2-18.0) Hematocrit 42.8 % (42.0-52.0) 41.2 % (42.0-52.0) 37.9 % (42.0-52.0) Mean Corpuscular Volume 68 FL (80-99) 68 FL (80-99) 67 FL (80-99) Mean Corpuscular Hemoglobin 21.6 PG (27.0-31.0) 21.4 PG (27.0-31.0) 21.4 PG (27.0-31.0) Mean Corpuscular Hemoglobin Concent 32.0 G/DL (32.0-36.0) 31.6 G/DL (32.0-36.0) 31.9 G/DL (32.0-36.0) Red Cell Distribution Width 12.6 % (11.6-14.8) 12.6 % (11.6-14.8) 12.5 % (11.6-14.8) Platelet Count 151 K/UL (150-450) 190 K/UL (150-450) 166 K/UL (150-450) Mean Platelet Volume 8.0 FL (6.5-10.1) 9.2 FL (6.5-10.1) 7.0 FL (6.5-10.1) Neutrophils (%) (Auto) % (45.0-75.0) 52.0 % (45.0-75.0) 33.2 % (45.0-75.0) Lymphocytes (%) (Auto) % (20.0-45.0) 31.5 % (20.0-45.0) 48.2 % (20.0-45.0) Monocytes (%) (Auto) % (1.0-10.0) 12.2 % (1.0-10.0) 11.9 % (1.0-10.0) Eosinophils (%) (Auto) % (0.0-3.0) 3.6 % (0.0-3.0) 5.3 % (0.0-3.0) Basophils (%) (Auto) % (0.0-2.0) 0.8 % (0.0-2.0) 1.5 % (0.0-2.0) Differential Total Cells Counted 100 Neutrophils % (Manual) 60 % (45-75) Lymphocytes % (Manual) 29 % (20-45) Monocytes % (Manual) 8 % (1-10) Eosinophils % (Manual) 2 % (0-3) Basophils % (Manual) 1 % (0-2) Band Neutrophils 0 % (0-8) Platelet Estimate Adequate Platelet Morphology Normal Anisocytosis 1+ Microcytosis 3+ Sodium Level 143 MMOL/L (136-145) 145 MMOL/L (136-145) 141 MMOL/L (136-145) Potassium Level 4.0 MMOL/L (3.5-5.1) 4.4 MMOL/L (3.5-5.1) 3.9 MMOL/L (3.5-5.1) Chloride Level 107 MMOL/L (98-107) 112 MMOL/L (98-107) 108 MMOL/L (98-107) Carbon Dioxide Level 24 MMOL/L (21-32) 24 MMOL/L (21-32) 24 MMOL/L (21-32) Anion Gap 12 mmol/L (5-15) 9 mmol/L (5-15) 9 mmol/L (5-15) Blood Urea Nitrogen 14 mg/dL (7-18) 11 mg/dL (7-18) 11 mg/dL (7-18) Creatinine 0.6 MG/DL (0.55-1.30) 0.7 MG/DL (0.55-1.30) 0.7 MG/DL (0.55-1.30) Estimat Glomerular Filtration Rate > 60 mL/min (>60) > 60 mL/min (>60) > 60 mL/min (>60) Glucose Level 88 MG/DL (74-106) 117 MG/DL (74-106) 86 MG/DL (74-106) Calcium Level 8.0 MG/DL (8.5-10.1) 8.0 MG/DL (8.5-10.1) 8.2 MG/DL (8.5-10.1) Height (Feet): 5 Height (Inches): 10.00 Weight (Pounds): 160 Objective Physical Exam Vitals: reviewed, normal Gen: no apparent distress, GCS 15, non-toxic, other - nonverbal Heent; nc, at, eomi Resp: chest non-tender, lungs clear, normal breath sounds, speaking full sentences CV: rrr, no mgr Gi: normal bs Neuro: nonverbal Lymphatic: no adenopathy Afshin Curry MD Nov 26, 2019 12:40
--- NOTE | 2019-11-26 14:44 | Cardiac Electrophysiology PN ---
Assessment/Plan Assessment/Plan 1. Hypotension, likely dehydrated especially in view of sepsis. Better after IV fluids 2. Hypertension. Off metoprolol. 3. COVID-19 pneumonia, on oxygen and pulmonary hygiene. Fu by Dr. Carmichael 4. Psych disorder. 5. Diabetes. 6. Parkinson's. DIXON RN Subjective Subjective Comfortable in NAD. Had lunch earlier. In Covid isolation Objective Last 24 Hour Vital Signs Date Time Temp Pulse Resp B/P (MAP) Pulse Ox O2 Delivery O2 Flow Rate FiO2 11/26/19 12:00 97.8 100 20 95/58 (70) 95 11/26/19 09:00 Room Air 11/26/19 08:15 81 18 95 Room Air 21 11/26/19 08:00 97.3 81 20 93/67 (76) 95 11/26/19 04:00 97.6 80 20 100/71 (81) 95 11/26/19 00:00 97.9 84 20 103/65 (78) 97 11/25/19 21:00 Room Air 11/25/19 20:00 98.3 90 18 83/47 (59) 94 11/25/19 19:38 88 18 94 Room Air 21 11/25/19 16:00 97.2 88 17 108/69 (82) 94 Intake and Output 11/25/19 11/26/19 19:00 07:00 Intake Total 480 ml Balance 480 ml Intake Oral 480 ml # Voids 3 2 Laboratory Tests Test 11/26/19 03:45 White Blood Count 3.5 K/UL (4.8-10.8) L Red Blood Count 5.66 M/UL (4.70-6.10) Hemoglobin 12.1 G/DL (14.2-18.0) L Hematocrit 37.9 % (42.0-52.0) L Mean Corpuscular Volume 67 FL (80-99) L Mean Corpuscular Hemoglobin 21.4 PG (27.0-31.0) L Mean Corpuscular Hemoglobin Concent 31.9 G/DL (32.0-36.0) L Red Cell Distribution Width 12.5 % (11.6-14.8) Platelet Count 166 K/UL (150-450) Mean Platelet Volume 7.0 FL (6.5-10.1) Neutrophils (%) (Auto) 33.2 % (45.0-75.0) L Lymphocytes (%) (Auto) 48.2 % (20.0-45.0) H Monocytes (%) (Auto) 11.9 % (1.0-10.0) H Eosinophils (%) (Auto) 5.3 % (0.0-3.0) H Basophils (%) (Auto) 1.5 % (0.0-2.0) Sodium Level 141 MMOL/L (136-145) Potassium Level 3.9 MMOL/L (3.5-5.1) Chloride Level 108 MMOL/L (98-107) H Carbon Dioxide Level 24 MMOL/L (21-32) Anion Gap 9 mmol/L (5-15) Blood Urea Nitrogen 11 mg/dL (7-18) Creatinine 0.7 MG/DL (0.55-1.30) Estimat Glomerular Filtration Rate > 60 mL/min (>60) Glucose Level 86 MG/DL (74-106) Calcium Level 8.2 MG/DL (8.5-10.1) L Objective HEAD AND NECK: No JVD. LUNGS: Clear. CARDIOVASCULAR: Regular S1 and S2 with no gallop. ABDOMEN: Soft. EXTREMITIES: No pitting edema. Sage Araujo MD Nov 26, 2019 14:44
[2019-11-26] MEDS ORDERED: Varibar Thin Liquid powder 148gm MC PRN (15:45)
[2019-11-26] MEDS ORDERED: Varibar Pudding 230ml MC PRN (15:45)
[2019-11-26] MEDS ORDERED: Varibar Honey 250ml MC PRN (15:45)
[2019-11-26] MEDS ORDERED: Varibar Nectar 240ml MC PRN (15:45)
[2019-11-26 15:50] VITALS: BP 91/62
--- NOTE | 2019-11-26 17:29 | Progress Note ---
DATE: 11/26/2019 SUBJECTIVE: This is a 64-year-old male patient who has confusion, disorganized thought process, feelings of helplessness, hopelessness. He has altered mental status, confusion, significant decline in cognition below his baseline. He has cough, dehydration, sinus tachycardia, diabetes, respiratory insufficiency, sepsis, number of other medical problems but also paranoid schizophrenia, rule out COVID-19. MENTAL STATUS EXAMINATION: This is a 64-year-old male. Appearance is disheveled. Attitude, irritable and agitated. Affect, guarded and restricted. Intellect poor. Mood, depressed and anxious. Motor activity, psychomotor agitation. Attention span is poor. Orientation x2. Speech is low volume and slurred. Thought process, disorganized and illogical. Insight and judgment is poor. DIAGNOSIS: Major depressive disorder, mild, recurrent with psychotic features. PLAN: Risperdal 1 mg per G-tube daily, Ativan 1 per G-tube q.6 hours p.r.n. anxiety and agitation, Namenda 5 mg per G-tube twice a day. A 20 minutes of insight-oriented psychotherapy to help better insight of his cognitive medical condition so that he have better impulse control and behavior overall on the unit. Chart reviewed and discussed with staff. Seen and assessed at bedside. Enrrique Escudero M.D. DR: Divya JOB#: [id number] CC:
--- NOTE | 2019-11-26 19:11 | NUR ---
HAND-OFF: Report given to Augusta SORENSEN.
[2019-11-26 20:00] VITALS: BP 96/66
--- NOTE | 2019-11-26 20:00 | NUR ---
NURSE NOTES: Received patient awake, non-verbal, no SOB, resting in bed, comfortable.
[2019-11-26] MEDS: Levemir Flexpen SUBQ SCH (21:00)
[2019-11-26] MEDS: Milk of Magnesia 30ml Ud GT SCH (21:09)
[2019-11-27] VITALS: BP 108/69
[2019-11-27 04:07] VITALS: BP 93/55
[2019-11-27] MEDS: NovoLOG Insulin Flexpen SUBQ SCH ×4 (06:07→21:00)
--- NOTE | 2019-11-27 07:04 | Hematology/Onc Progress Note ---
Assessment/Plan Assessment/Plan Assessment and Recs # Pancytopenia r/o underlying ifnection, may be covid19 related, but need results first, also may be pna related --> hepatitis and hiv are negative --> us of the abdomen has been ordered--> ct recently neg --> p smear is pending--> nos Shistocytes seen --> remains on abx as per id --> transfuse, given plt as needed --> wbc 3.4->3.5 -> hgb 13-->12 # Pneumonia, poa --> CXR - R sided lobe infiltrate --> remains on abx # Psych disorder. --> per G Kota via gtube # Diabetes mellitus. # Hypertension. # Parkinson's. # Dvt ppx lovenox sq Appreciate consultation and antonio Rn Subjective HEENT: Denies: no symptoms, eye pain, blurred vision, tearing, double vision, ear pain, ear discharge, nose pain, nose congestion, throat pain, throat swelling, mouth pain, mouth swelling, other Cardiovascular: Denies: no symptoms, chest pain, edema, irregular heart rate, lightheadedness, palpitations, syncope, other Genitourinary: Denies: no symptoms, burning, discharge, frequency, flank pain, hematuria, incontinence, pain, urgency, other Neurologic/Psychiatric: Denies: no symptoms, anxiety, depressed, emotional problems, headache, numbness, paresthesia, pre-existing deficit, seizure, tingling, tremors, weakness, other Allergies: Coded Allergies: NO KNOWN DRUG ALLERGIES (Unverified Allergy, Unknown, 07/16/19) All Systems: reviewed and negative except above Subjective 11/22 nonverbal, asleep, no complaints, gtube flushing well, without issue, no bleeding 11/23 remains confused, is awake, no bleeding, labs reviewed\ 11/24 remains very confused, labs ordered, antonio rn 11/25 no major events, bp was low last night, fluids given 11/26 agitated, no major changes, labs pending Objective Objective Current Medications Medications (Trade) Dose Ordered Sig/Monalisa Route PRN Reason Start Time Stop Time Status Last Admin Dose Admin Acetaminophen (Tylenol) 650 mg Q4H PRN GT Mild Pain (Pain Scale 1-3) 11/21/19 11:30 12/21/19 11:29 Acetaminophen (Tylenol) 650 mg Q4H PRN ORAL FEVER, HEADACHE, MILD PAIN 11/21/19 12:00 12/21/19 11:59 Acetaminophen (Tylenol) 650 mg Q4H PRN RECTAL Temp >100.5 11/21/19 11:15 12/21/19 11:14 Al Hydroxide/Mg Hydroxide (Mylanta) 30 ml Q6HR GT 11/21/19 13:15 12/21/19 13:14 11/27/19 05:15 Ascorbic Acid (Vitamin C) 500 mg TWICE A DAY GT 11/21/19 18:00 12/21/19 17:59 11/26/19 17:00 Barium Sulfate (Varibar Honey) 250 ml NOW PRN MC RAD 11/26/19 15:45 11/29/19 18:00 Barium Sulfate (Varibar [place]) 240 ml NOW PRN MC RAD 11/26/19 15:45 11/29/19 15:44 Barium Sulfate (Varibar Pudding) 230 ml NOW PRN MC RAD 11/26/19 15:45 11/29/19 15:44 Barium Sulfate (Varibar Thin Liquid powder) 148 gm NOW PRN MC RAD 11/26/19 15:45 11/29/19 15:44 Bisacodyl (Dulcolax) 10 mg DAILY PRN RECTAL Constipation 11/21/19 12:00 02/19/20 11:59 Dextrose (Dextrose 50%) 25 ml Q30M PRN IV Hypoglycemia 11/21/19 12:00 02/19/20 11:59 Dextrose (Dextrose 50%) 50 ml Q30M PRN IV Hypoglycemia 11/21/19 12:00 02/19/20 11:59 Docusate Sodium (Colace) 100 mg TWICE A DAY ORAL 11/21/19 18:00 12/21/19 17:59 11/26/19 17:00 Enoxaparin Sodium (Lovenox) 40 mg Q24H SUBQ 11/21/19 13:00 02/19/20 12:59 11/26/19 12:13 Famotidine (Pepcid) 20 mg BEDTIME ORAL 11/21/19 21:00 02/19/20 20:59 11/26/19 21:09 Finasteride (Proscar) 5 mg DAILY ORAL 11/22/19 09:00 02/20/20 08:59 11/26/19 08:58 Hydromorphone HCl (Dilaudid) 1 mg Q8H PRN IVP Moderate Pain (Pain Scale 4-6) 11/21/19 11:15 11/28/19 11:14 Insulin Aspart (NovoLOG) BEFORE MEALS AND HS SUBQ 11/21/19 16:30 02/19/20 16:29 11/23/19 11:45 Insulin Detemir (Levemir) 6 units BEDTIME SUBQ 11/21/19 21:00 02/19/20 20:59 Levetiracetam (Keppra) 2,000 mg BID GT 11/21/19 18:00 12/21/19 17:59 11/26/19 17:00 Lorazepam (Ativan) 1 mg Q6H PRN GT For Anxiety 11/21/19 16:00 11/28/19 15:59 Magnesium Hydroxide (Mom) 30 ml BEDTIME GT 11/21/19 21:00 12/21/19 20:59 11/26/19 21:09 Memantine (Namenda) 5 mg DAILY GT 11/26/19 09:00 12/26/19 08:59 11/26/19 08:58 Ondansetron HCl (Zofran) 4 mg Q6H PRN GT Nausea & Vomiting 11/21/19 12:00 12/21/19 11:59 Pantoprazole (Protonix) 40 mg DAILY IV 11/21/19 12:00 12/21/19 11:59 11/26/19 08:58 Polyethylene Glycol (Miralax) 17 gm DAILY PRN GT Constipation 11/21/19 12:00 12/21/19 11:59 Risperidone (RisperDAL) 1 mg DAILY GT 11/22/19 09:00 01/06/20 08:59 11/26/19 08:58 Temazepam (Restoril) 15 mg BEDTIME PRN ORAL Insomnia 11/21/19 12:00 11/28/19 11:59 Zinc Sulfate (Zinc Sulfate) 220 mg DAILY ORAL 11/22/19 09:00 02/20/20 08:59 11/26/19 08:58 Zolpidem Tartrate (Ambien) 5 mg HSPRN PRN GT Insomnia 11/21/19 11:15 11/28/19 11:14 Last 24 Hour Vital Signs Date Time Temp Pulse Resp B/P (MAP) Pulse Ox O2 Delivery O2 Flow Rate FiO2 11/27/19 04:07 96.8 73 16 93/55 (68) 96 11/27/19 00:00 97.0 88 16 108/69 (82) 95 11/26/19 20:09 Room Air 11/26/19 20:08 88 18 94 Room Air 21 11/26/19 20:00 96.8 82 16 96/66 (76) 94 11/26/19 15:50 97.3 92 19 91/62 (72) 96 11/26/19 12:00 97.8 100 20 95/58 (70) 95 11/26/19 09:00 Room Air 11/26/19 08:15 81 18 95 Room Air 21 11/26/19 08:00 97.3 81 20 93/67 (76) 95 11/26/19 04:00 97.6 80 20 100/71 (81) 95 11/26/19 00:00 97.9 84 20 103/65 (78) 97 11/25/19 21:00 Room Air 11/25/19 20:00 98.3 90 18 83/47 (59) 94 11/25/19 19:38 88 18 94 Room Air 21 11/25/19 16:00 97.2 88 17 108/69 (82) 94 11/25/19 12:00 96.4 93 17 99/66 (77) 94 11/25/19 09:42 82 18 95 Room Air 21 11/25/19 09:00 Room Air 11/25/19 08:00 97.7 79 16 91/61 (71) 96 Intake and Output 11/26/19 11/27/19 19:00 07:00 Intake Total 240 ml Output Total 300 ml Balance -60 ml Intake Oral 240 ml Output Urine Total 300 ml Labs Test 11/25/19 09:35 11/26/19 03:45 11/27/19 05:15 White Blood Count 3.5 K/UL (4.8-10.8) 3.5 K/UL (4.8-10.8) Red Blood Count 6.10 M/UL (4.70-6.10) 5.66 M/UL (4.70-6.10) Hemoglobin 13.0 G/DL (14.2-18.0) 12.1 G/DL (14.2-18.0) Hematocrit 41.2 % (42.0-52.0) 37.9 % (42.0-52.0) Mean Corpuscular Volume 68 FL (80-99) 67 FL (80-99) Mean Corpuscular Hemoglobin 21.4 PG (27.0-31.0) 21.4 PG (27.0-31.0) Mean Corpuscular Hemoglobin Concent 31.6 G/DL (32.0-36.0) 31.9 G/DL (32.0-36.0) Red Cell Distribution Width 12.6 % (11.6-14.8) 12.5 % (11.6-14.8) Platelet Count 190 K/UL (150-450) 166 K/UL (150-450) Mean Platelet Volume 9.2 FL (6.5-10.1) 7.0 FL (6.5-10.1) Neutrophils (%) (Auto) 52.0 % (45.0-75.0) 33.2 % (45.0-75.0) Lymphocytes (%) (Auto) 31.5 % (20.0-45.0) 48.2 % (20.0-45.0) Monocytes (%) (Auto) 12.2 % (1.0-10.0) 11.9 % (1.0-10.0) Eosinophils (%) (Auto) 3.6 % (0.0-3.0) 5.3 % (0.0-3.0) Basophils (%) (Auto) 0.8 % (0.0-2.0) 1.5 % (0.0-2.0) Sodium Level 145 MMOL/L (136-145) 141 MMOL/L (136-145) Potassium Level 4.4 MMOL/L (3.5-5.1) 3.9 MMOL/L (3.5-5.1) Chloride Level 112 MMOL/L (98-107) 108 MMOL/L (98-107) Carbon Dioxide Level 24 MMOL/L (21-32) 24 MMOL/L (21-32) Anion Gap 9 mmol/L (5-15) 9 mmol/L (5-15) Blood Urea Nitrogen 11 mg/dL (7-18) 11 mg/dL (7-18) Creatinine 0.7 MG/DL (0.55-1.30) 0.7 MG/DL (0.55-1.30) Estimat Glomerular Filtration Rate > 60 mL/min (>60) > 60 mL/min (>60) Glucose Level 117 MG/DL (74-106) 86 MG/DL (74-106) Calcium Level 8.0 MG/DL (8.5-10.1) 8.2 MG/DL (8.5-10.1) Height (Feet): 5 Height (Inches): 10.00 Weight (Pounds): 160 Objective Physical Exam Vitals: reviewed, normal, nonverbal Gen: no apparent distress, GCS 15, non-toxic, other - nonverbal Heent; nc, at, eomi Resp: chest non-tender, lungs clear, normal breath sounds, speaking full sentences CV: rrr, no mgr Gi: normal bs Neuro: nonverbal Lymphatic: no adenopathy Afshin Curry MD November 27, 2019 07:04
--- NOTE | 2019-11-27 07:10 | NUR ---
NURSE NOTES: Received patient in bed. Awake, mostly nonverbal, opens eyes when name is stated. On room air, respirations unlabored. No signs of pain at this time. Gt patent and flushed. Iv in the Left upper arm, site is intact. Condom catheter in place. Bed low and locked, call light within reach.
[2019-11-27 07:16] LABS: BASOPHILS % (AUTO) 1.3 % (0.0-2.0); EOSINOPHILS % (AUTO) 4.5 % (0.0-3.0); HEMATOCRIT 41.1 % (42.0-52.0); HEMOGLOBIN 12.9 G/DL (14.2-18.0); LYMPHOCYTES % (AUTO) 41.9 % (20.0-45.0); MEAN CORPUSCULAR VOLUME 68 FL (80-99); MONOCYTES % (AUTO) 15.3 % (1.0-10.0); NEUTROPHILS % (AUTO) 37.1 % (45.0-75.0); PLATELET COUNT 231 K/UL (150-450); RED BLOOD COUNT 6.08 M/UL (4.70-6.10); RED CELL DISTRIBUTION WIDTH 12.7 % (11.6-14.8); WHITE BLOOD COUNT 3.8 K/UL (4.8-10.8)
--- NOTE | 2019-11-27 07:20 | NUR ---
HAND-OFF: Report given to Herrera Rodriguez RN.
[2019-11-27 07:32] LABS: ANION GAP 9 mmol/L (5-15); BLOOD UREA NITROGEN 12 mg/dL (7-18); CALCIUM 8.7 MG/DL (8.5-10.1); CARBON DIOXIDE 25 MMOL/L (21-32); CHLORIDE 109 MMOL/L (98-107); POTASSIUM 4.4 MMOL/L (3.5-5.1); SODIUM 142 MMOL/L (136-145)
[2019-11-27 08:00] VITALS: BP 107/67
[2019-11-27 08:01] LABS: CREATININE 0.6 MG/DL (0.55-1.30)
[2019-11-27] MEDS: Docusate 100mg cap ORAL SCH ×2 (08:26→17:39)
[2019-11-27] MEDS: Ascorbic Acid 500mg tab GT SCH ×2 (08:26→17:39)
[2019-11-27] MEDS: Memantine 5 MG TAB GT SCH (08:26)
[2019-11-27] MEDS: levETIRAcetam 500mg/5ml Liquid GT SCH ×2 (08:26→17:39)
[2019-11-27] MEDS: Zinc Sulfate 220mg cap ORAL SCH (08:26)
[2019-11-27] MEDS: Pantoprazole Inj IV SCH (08:27)
--- NOTE | 2019-11-27 09:00 | Progress Note ---
DATE: 11/27/2019 SUBJECTIVE: This is a 64-year-old male patient with fever and cough. This patient continues to have altered mental status, confusion, decline in cognition below his baseline. That is why, the attending has requested daily psychiatric consultation. DIAGNOSIS: Major depressive disorder, mild, recurrent with psychotic features. PLAN: Risperdal 1 mg per G-tube daily, Ativan 1 per G-tube q.6 hours p.r.n. anxiety and agitation, Namenda 5 mg per G-tube twice a day. Twenty minutes of insight-oriented psychotherapy to help him have understanding of his medical cognitive condition so that he have better impulse control and behavior on the unit. Chart reviewed and discussed with staff. Seen and assessed in his room. Enrrique Escudero M.D. DR: ANGELI JOB#: [id number] CC:
--- NOTE | 2019-11-27 09:08 | General Progress Note ---
Assessment/Plan Problem List: (1) Pancytopenia ICD Codes: D61.818 - Other pancytopenia SNOMED: 765846968 (2) Fever ICD Codes: R50.9 - Fever, unspecified SNOMED: 443221923 (3) Cough ICD Codes: R05 - Cough SNOMED: 87875005 (4) Anemia ICD Codes: D64.9 - Anemia, unspecified SNOMED: 544674892 (5) Diabetes ICD Codes: E11.9 - Diabetes SNOMED: 05708941 (6) PEG (percutaneous endoscopic gastrostomy) adjustment/replacement/removal ICD Codes: Z43.1 - Encounter for attention to gastrostomy SNOMED: 451143369 (7) Decubitus ulcer ICD Codes: L89.90 - Pressure ulcer of unspecified site, unspecified stage SNOMED: 477901427 (8) Acute renal failure ICD Codes: N17.9 - Acute renal failure SNOMED: 21843303 (9) Seizure ICD Codes: R56.9 - Seizure SNOMED: 19505159 (10) Weak ICD Codes: R53.1 - Weakness SNOMED: 10340858 (11) UTI (lower urinary tract infection) ICD Codes: N39.0 - UTI (lower urinary tract infection) SNOMED: 0665840 (12) Suspected COVID-19 virus infection ICD Codes: Z20.828 - Contact with and (suspected) exposure to other viral communicable diseases SNOMED: 159693142 Status: unchanged Assessment/Plan: o2 pulm tx abx pt diet eval cbc bmp am Subjective Constitutional: Reports: weakness Allergies: Coded Allergies: NO KNOWN DRUG ALLERGIES (Unverified Allergy, Unknown, 07/16/19) All Systems: reviewed and negative except above Subjective sleepy calm Objective Last 24 Hour Vital Signs Date Time Temp Pulse Resp B/P (MAP) Pulse Ox O2 Delivery O2 Flow Rate FiO2 11/27/19 04:07 96.8 73 16 93/55 (68) 96 11/27/19 00:00 97.0 88 16 108/69 (82) 95 11/26/19 20:09 Room Air 11/26/19 20:08 88 18 94 Room Air 21 11/26/19 20:00 96.8 82 16 96/66 (76) 94 11/26/19 15:50 97.3 92 19 91/62 (72) 96 11/26/19 12:00 97.8 100 20 95/58 (70) 95 Intake and Output 11/26/19 11/27/19 19:00 07:00 Intake Total 240 ml Output Total 300 ml 800 ml Balance -60 ml -800 ml Intake Oral 240 ml Output Urine Total 300 ml 800 ml # Bowel Movements 1 Laboratory Tests 11/27/19 05:15: White Blood Count 3.8L, Red Blood Count 6.08, Hemoglobin 12.9L, Hematocrit 41.1L , Mean Corpuscular Volume 68L, Mean Corpuscular Hemoglobin 21.2L, Mean Corpuscular Hemoglobin Concent 31.4L, Red Cell Distribution Width 12.7, Platelet Count 231, Mean Platelet Volume 7.1, Neutrophils (%) (Auto) 37.1L, Lymphocytes (%) (Auto) 41.9, Monocytes (%) (Auto) 15.3H, Eosinophils (%) (Auto) 4.5H, Basophils (%) (Auto) 1.3, Sodium Level 142, Potassium Level 4.4, Chloride Level 109H, Carbon Dioxide Level 25, Anion Gap 9, Blood Urea Nitrogen 12, Creatinine 0.6, Estimat Glomerular Filtration Rate > 60, Glucose Level 82, Calcium Level 8.7 Height (Feet): 5 Height (Inches): 10.00 Weight (Pounds): 160 General Appearance: lethargic EENT: normal ENT inspection Neck: normal inspection Cardiovascular: normal rate, regular rhythm Respiratory/Chest: no respiratory distress, no accessory muscle use Extremities: normal inspection Skin: normal pigmentation Donaldo Johnson DO November 27, 2019 09:07
--- NOTE | 2019-11-27 11:07 | NUR ---
MANAGED SERVICES SALES CONSULTANT Bedside Swallow Evaluation: PT REFERRED FOR BEDSIDE SWALLOW EVALUATION BY: Dr. Johnson (see care activity section for complete report) DYSPHAGIA RISK FACTORS FOR THIS 64 Y.O. MALE ACUTE ISSUES Adult failure to thrive, Epilepsy, Other viral PNA, Sepsis, UTI, Covid 19 POSITIVE, confusion, hypotension likely dehydration in view of sepsis, Acute Renal failure, Pancytopenia, fever, cough, respiratory insufficiency COMORBIDITIES Major Depressive Disorder (mild, recurrent w/ psychotic features), Parkinson's, HTN, dysphagia s/p PEG, Cerebral Palsy POLST Pt has G-Tube and is full code. RELEVANT MEDICATIONS PROTONIX (GERD), PEPCID (GERD), ZOFRAN (NASEAU), RESTORIL, AMBIEN PRIOR FUNCTION: Per RN at [facility], Pt was previously NPO w/ PEG as primary nutrition/hydration (Glucerna 1.2 @ 60 cc). Per Pt's sister, Pt consumed a Diabetic diet. VITALS: HR 87 bpm; RESPIRATORY RATE 19 bpm; SPO2 98% SPEECH/LANGUAGE Per HPI, Pt is nonverbal. However, during the evaluation, Pt was able to verbally communicate (speech characterized by 1-word output, w/ stuttering of initial sound. Pt is intelligible; vocal quality/pitch is WFL, however, expressive language lacks content and is difficult to determine meaning of Pt's output due to lack of context) Pt states "Tomato" "soup" and "milk." Pt's yes/no responses typically via head nods are inconsistently accurate. Pt is alert, has natural dentition w/ missing teeth. Pt is on room air. Movements are slow, able to reposition self more upright in bed. Oral motor ROM and coordination is reduced and appear slightly weak. Pt appearing to have some oral apraxia. Oral secretion management is functional. Per RN, Pt observed coughing w/ food (regular texture), no overt s/s of aspiration w/ thin liquids observed during breakfast meal. INITIAL IMPRESSIONS: Mild Oral Phase Dysphagia and probable Moderate Pharyngeal Phase dysphagia compounded by respiratory status (per CXR on 11/20/19 R side lobe infiltrate) and concurrent w/ Pt's hx of Cerebral Palsy and Parkinson's w/ increased oral prep and transit time, prolonged and inefficient rotary mastication, fair laryngeal elevation per palpation. PO Trials: -Thin liquids via cup and teaspoon w/ no immediate overt s/s of aspiration -Puree via teaspoon w/ no overt s/s of aspiration (suspect oral apraxic due to Pt observed to masticate puree solids) -Finely chopped Mech Soft: Prolonged and inefficient rotary mastication w/ no bolus formulation observed, trials remaining throughout oral cavity, immediate overt s/s of aspiration w/ solid consistencies PATIENT IS AT A HIGH RISK FOR SILENT ASPIRATION AND PERSISTENT AND WORSENED OROPHARYNGEAL DYSPHAGIA DUE TO HX OF PARKINSON'S AND CEREBRAL PALSY. RECOMMENDATIONS: 1. DOWNGRADE DIET TO FULL THIN LIQUID DIET. NO STRAWS W/ 1:1 CAREFUL HAND FEEDING. MEDS VIA PEG. 2. STRICT ORAL CARE W/ SUCTION BID 3. SKILLED ST SERVICES TO F/U 3X A WEEK X1 WEEK 4. COG COMM EVAL/TX FOR COMMUNICATION TIPS. 5. MBSS OBJECTIVE SWALLOW EVALUATION IP OR OP (IF D/C) 6. MD TO CONSIDER 24-HOUR CALORIE COUNT 7. MD TO CONSIDER REFERRAL TO RD TO DETERMINE NEED TO SUPPLEMENTARY FEEDING VIA PEG (@ SNF Pt was receiving Glucerna 1.2 @ 60 cc).
--- NOTE | 2019-11-27 11:37 | Pulmonology Progress Note ---
Assessment/Plan Assessment/Plan IMPRESSION: 1. COVID 19 pneumonia. 2. Psych disorder. 3. Diabetes mellitus. 4. Hypertension. 5. Parkinson's. 6. Bacteremia; likely contaminant DISCUSSION: Continue home medications. Continue to provide oxygen and pulmonary hygiene. Currently, the patient is saturating well on nasal oxygen 2 L alternating with RA. Is positive COVID-19. Broad-spectrum antibiotics per ID. I will follow carefully. Abdifatah Carmichael M.D. Subjective Interval Events: None new Constitutional: Reports: no symptoms HEENT: Repors: no symptoms Respiratory: Reports: no symptoms Cardiovascular: Reports: no symptoms Gastrointestinal/Abdominal: Reports: no symptoms Genitourinary: Reports: no symptoms Allergies: Coded Allergies: NO KNOWN DRUG ALLERGIES (Unverified Allergy, Unknown, 07/16/19) All Systems: reviewed and negative except above Objective Last 24 Hour Vital Signs Date Time Temp Pulse Resp B/P (MAP) Pulse Ox O2 Delivery O2 Flow Rate FiO2 11/27/19 09:00 Room Air 11/27/19 08:00 98.1 87 19 107/67 (80) 98 11/27/19 04:07 96.8 73 16 93/55 (68) 96 11/27/19 00:00 97.0 88 16 108/69 (82) 95 11/26/19 20:09 Room Air 11/26/19 20:08 88 18 94 Room Air 21 11/26/19 20:00 96.8 82 16 96/66 (76) 94 11/26/19 15:50 97.3 92 19 91/62 (72) 96 11/26/19 12:00 97.8 100 20 95/58 (70) 95 Intake and Output 11/26/19 11/27/19 19:00 07:00 Intake Total 240 ml Output Total 300 ml 800 ml Balance -60 ml -800 ml Intake Oral 240 ml Output Urine Total 300 ml 800 ml # Bowel Movements 1 General Appearance: no acute distress HEENT: normocephalic Respiratory/Chest: chest wall non-tender, lungs clear Cardiovascular: normal peripheral pulses Abdomen: normal bowel sounds Laboratory Tests 11/27/19 05:15: White Blood Count 3.8L, Red Blood Count 6.08, Hemoglobin 12.9L, Hematocrit 41.1L , Mean Corpuscular Volume 68L, Mean Corpuscular Hemoglobin 21.2L, Mean Corpuscular Hemoglobin Concent 31.4L, Red Cell Distribution Width 12.7, Platelet Count 231, Mean Platelet Volume 7.1, Neutrophils (%) (Auto) 37.1L, Lymphocytes (%) (Auto) 41.9, Monocytes (%) (Auto) 15.3H, Eosinophils (%) (Auto) 4.5H, Basophils (%) (Auto) 1.3, Sodium Level 142, Potassium Level 4.4, Chloride Level 109H, Carbon Dioxide Level 25, Anion Gap 9, Blood Urea Nitrogen 12, Creatinine 0.6, Estimat Glomerular Filtration Rate > 60, Glucose Level 82, Calcium Level 8.7 Current Medications Medications (Trade) Dose Ordered Sig/Monalisa Route PRN Reason Start Time Stop Time Status Last Admin Dose Admin Acetaminophen (Tylenol) 650 mg Q4H PRN GT Mild Pain (Pain Scale 1-3) 11/21/19 11:30 12/21/19 11:29 Acetaminophen (Tylenol) 650 mg Q4H PRN ORAL FEVER, HEADACHE, MILD PAIN 11/21/19 12:00 12/21/19 11:59 Acetaminophen (Tylenol) 650 mg Q4H PRN RECTAL Temp >100.5 11/21/19 11:15 12/21/19 11:14 Al Hydroxide/Mg Hydroxide (Mylanta) 30 ml Q6HR GT 11/21/19 13:15 12/21/19 13:14 11/27/19 11:06 Ascorbic Acid (Vitamin C) 500 mg TWICE A DAY GT 11/21/19 18:00 12/21/19 17:59 11/27/19 08:26 Barium Sulfate (Varibar Honey) 250 ml NOW PRN MC RAD 11/26/19 15:45 11/29/19 18:00 Barium Sulfate (Varibar [place]) 240 ml NOW PRN MC RAD 11/26/19 15:45 11/29/19 15:44 Barium Sulfate (Varibar Pudding) 230 ml NOW PRN MC RAD 11/26/19 15:45 11/29/19 15:44 Barium Sulfate (Varibar Thin Liquid powder) 148 gm NOW PRN MC RAD 11/26/19 15:45 11/29/19 15:44 Bisacodyl (Dulcolax) 10 mg DAILY PRN RECTAL Constipation 11/21/19 12:00 02/19/20 11:59 Dextrose (Dextrose 50%) 25 ml Q30M PRN IV Hypoglycemia 11/21/19 12:00 02/19/20 11:59 Dextrose (Dextrose 50%) 50 ml Q30M PRN IV Hypoglycemia 11/21/19 12:00 02/19/20 11:59 Docusate Sodium (Colace) 100 mg TWICE A DAY ORAL 11/21/19 18:00 12/21/19 17:59 11/27/19 08:26 Enoxaparin Sodium (Lovenox) 40 mg Q24H SUBQ 11/21/19 13:00 02/19/20 12:59 11/26/19 12:13 Famotidine (Pepcid) 20 mg BEDTIME ORAL 11/21/19 21:00 02/19/20 20:59 11/26/19 21:09 Finasteride (Proscar) 5 mg DAILY ORAL 11/22/19 09:00 02/20/20 08:59 11/27/19 08:26 Hydromorphone HCl (Dilaudid) 1 mg Q8H PRN IVP Moderate Pain (Pain Scale 4-6) 11/21/19 11:15 11/28/19 11:14 Insulin Aspart (NovoLOG) BEFORE MEALS AND HS SUBQ 11/21/19 16:30 02/19/20 16:29 11/23/19 11:45 Insulin Detemir (Levemir) 6 units BEDTIME SUBQ 11/21/19 21:00 02/19/20 20:59 Levetiracetam (Keppra) 2,000 mg BID GT 11/21/19 18:00 12/21/19 17:59 11/27/19 08:26 Lorazepam (Ativan) 1 mg Q6H PRN GT For Anxiety 11/21/19 16:00 11/28/19 15:59 Magnesium Hydroxide (Mom) 30 ml BEDTIME GT 11/21/19 21:00 12/21/19 20:59 11/26/19 21:09 Memantine (Namenda) 5 mg DAILY GT 11/26/19 09:00 12/26/19 08:59 11/27/19 08:26 Ondansetron HCl (Zofran) 4 mg Q6H PRN GT Nausea & Vomiting 11/21/19 12:00 12/21/19 11:59 Pantoprazole (Protonix) 40 mg DAILY IV 11/21/19 12:00 12/21/19 11:59 11/27/19 08:27 Polyethylene Glycol (Miralax) 17 gm DAILY PRN GT Constipation 11/21/19 12:00 12/21/19 11:59 Risperidone (RisperDAL) 1 mg DAILY GT 11/22/19 09:00 01/06/20 08:59 11/27/19 08:26 Temazepam (Restoril) 15 mg BEDTIME PRN ORAL Insomnia 11/21/19 12:00 11/28/19 11:59 Zinc Sulfate (Zinc Sulfate) 220 mg DAILY ORAL 11/22/19 09:00 02/20/20 08:59 11/27/19 08:26 Zolpidem Tartrate (Ambien) 5 mg HSPRN PRN GT Insomnia 11/21/19 11:15 11/28/19 11:14 Abdifatah Carmichael MD November 27, 2019 11:37
--- NOTE | 2019-11-27 11:58 | Cardiac Electrophysiology PN ---
Assessment/Plan Assessment/Plan 1. Hypotension, likely dehydrated especially in view of sepsis. Resolved Better after IV fluids 2. Hypertension. Off metoprolol. 3. COVID-19 pneumonia, on pulmonary hygiene. Fu by Dr. Carmichael 4. Psych disorder. 5. Diabetes. 6. Parkinson's. DIXON RN Subjective Subjective Comfortable in NAD. In Covid isolation. Laying flat in bed off supplemental oxygen Objective Last 24 Hour Vital Signs Date Time Temp Pulse Resp B/P (MAP) Pulse Ox O2 Delivery O2 Flow Rate FiO2 11/27/19 09:00 Room Air 11/27/19 08:00 98.1 87 19 107/67 (80) 98 11/27/19 04:07 96.8 73 16 93/55 (68) 96 11/27/19 00:00 97.0 88 16 108/69 (82) 95 11/26/19 20:09 Room Air 11/26/19 20:08 88 18 94 Room Air 21 11/26/19 20:00 96.8 82 16 96/66 (76) 94 11/26/19 15:50 97.3 92 19 91/62 (72) 96 11/26/19 12:00 97.8 100 20 95/58 (70) 95 Intake and Output 11/26/19 11/27/19 19:00 07:00 Intake Total 240 ml Output Total 300 ml 800 ml Balance -60 ml -800 ml Intake Oral 240 ml Output Urine Total 300 ml 800 ml # Bowel Movements 1 Laboratory Tests Test 11/27/19 05:15 White Blood Count 3.8 K/UL (4.8-10.8) L Red Blood Count 6.08 M/UL (4.70-6.10) Hemoglobin 12.9 G/DL (14.2-18.0) L Hematocrit 41.1 % (42.0-52.0) L Mean Corpuscular Volume 68 FL (80-99) L Mean Corpuscular Hemoglobin 21.2 PG (27.0-31.0) L Mean Corpuscular Hemoglobin Concent 31.4 G/DL (32.0-36.0) L Red Cell Distribution Width 12.7 % (11.6-14.8) Platelet Count 231 K/UL (150-450) Mean Platelet Volume 7.1 FL (6.5-10.1) Neutrophils (%) (Auto) 37.1 % (45.0-75.0) L Lymphocytes (%) (Auto) 41.9 % (20.0-45.0) Monocytes (%) (Auto) 15.3 % (1.0-10.0) H Eosinophils (%) (Auto) 4.5 % (0.0-3.0) H Basophils (%) (Auto) 1.3 % (0.0-2.0) Sodium Level 142 MMOL/L (136-145) Potassium Level 4.4 MMOL/L (3.5-5.1) Chloride Level 109 MMOL/L (98-107) H Carbon Dioxide Level 25 MMOL/L (21-32) Anion Gap 9 mmol/L (5-15) Blood Urea Nitrogen 12 mg/dL (7-18) Creatinine 0.6 MG/DL (0.55-1.30) Estimat Glomerular Filtration Rate > 60 mL/min (>60) Glucose Level 82 MG/DL (74-106) Calcium Level 8.7 MG/DL (8.5-10.1) Objective HEAD AND NECK: No JVD. LUNGS: Clear. CARDIOVASCULAR: Regular S1 and S2 with no gallop. ABDOMEN: Soft. EXTREMITIES: No pitting edema. aSge Araujo MD November 27, 2019 11:58
[2019-11-27 12:00] VITALS: BP 110/68
[2019-11-27] MEDS: Enoxaparin 40mg Inj SUBQ SCH (13:24)
--- NOTE | 2019-11-27 14:39 | NUR ---
CASE MANAGEMENT: REVIEW 11/27/19 SI:COVID-19 (+) . PNA . UTI . MRSA(+) . PSYCH DISORDER 98.1 87 19 107/67 98% ON RA WBC 3.8 IS:IV VANCOMYCIN Q8HR KEPPRA GT QD IV PROTONIX QD PROSCAR PO QD RISPERDAL GT QD LOVENOX SQ QD ZINC SULFATE PO QD NAMENDA GT QD \:4E MED SURG UNIT DCP: LEXII MURO WHEN STABLE PLAN: CHEST X-RAY - Unchanged minimal linear atelectasis or scarring in the perihilar right lung. SPEECH EVAL
--- NOTE | 2019-11-27 14:44 | Infectious Diseases Prog Note ---
Assessment/Plan Assessment/Plan Assessment: Pnuemonia- currently at [facility]- 2ry to COVID19 (resident at [facility] w/ multiple confirmed cases) -11/24 CXR: No significant interval change compared to exam of 11/20/2019. No new focal airspace consolidation. -CXR: Patchy areas of mild increased hazy opacity of suspected in the right lung. This appears most prominent at the right apex. An acute infectious/ inflammatory process should be considered. There is question of a vertebral body compression fracture of the lower thoracic spine. Gram positive bacteremia- contaminant -11/19 Bcx / S. saprophyticus, / S.epi; 11/20 Bcx NTD Probable UTI -u/a wbc 5-10, nit neg, leuk +1; ucx Neg Afebrile (reported Fever [employer]) Leukopenia/pancytopenia -thrombocytopenia resolved Dm2 HTN seizure disorder dysphagia s/p GT decubitus ulcer FTT cerebral palsy COPD CVA/TIA paranoid schizophrenia non verbal SNF resident (Zaria Good) Plan: -COnt to monitor off abx -11/24 SP IV Vancomycin #5 -11/23 SP Ceftriaxone #2 -11/22 SP Meropenem #3 -11/19 SP CEftriaxone x1, Azithromycin x1 -f/u cx -Monitor CBC/CMP, temperatures -f/u repeat Bcx x2 -COVID 19 isolation -PEG care -aspiration precautions Thank you for consulting [facility]. Will continue to follow along with you. Discussed with RN. Subjective Allergies: Coded Allergies: NO KNOWN DRUG ALLERGIES (Unverified Allergy, Unknown, 07/16/19) Subjective afebrile at repeat bx NTD Objective Vital Signs Last 24 Hour Vital Signs Date Time Temp Pulse Resp B/P (MAP) Pulse Ox O2 Delivery O2 Flow Rate FiO2 11/27/19 09:00 Room Air 11/27/19 08:00 98.1 87 19 107/67 (80) 98 11/27/19 04:07 96.8 73 16 93/55 (68) 96 11/27/19 00:00 97.0 88 16 108/69 (82) 95 11/26/19 20:09 Room Air 11/26/19 20:08 88 18 94 Room Air 21 11/26/19 20:00 96.8 82 16 96/66 (76) 94 11/26/19 15:50 97.3 92 19 91/62 (72) 96 Height (Feet): 5 Height (Inches): 10.00 Weight (Pounds): 160 Objective not examined to limit COVID19 exposure Laboratory Tests Test 11/27/19 05:15 White Blood Count 3.8 K/UL (4.8-10.8) L Red Blood Count 6.08 M/UL (4.70-6.10) Hemoglobin 12.9 G/DL (14.2-18.0) L Hematocrit 41.1 % (42.0-52.0) L Mean Corpuscular Volume 68 FL (80-99) L Mean Corpuscular Hemoglobin 21.2 PG (27.0-31.0) L Mean Corpuscular Hemoglobin Concent 31.4 G/DL (32.0-36.0) L Red Cell Distribution Width 12.7 % (11.6-14.8) Platelet Count 231 K/UL (150-450) Mean Platelet Volume 7.1 FL (6.5-10.1) Neutrophils (%) (Auto) 37.1 % (45.0-75.0) L Lymphocytes (%) (Auto) 41.9 % (20.0-45.0) Monocytes (%) (Auto) 15.3 % (1.0-10.0) H Eosinophils (%) (Auto) 4.5 % (0.0-3.0) H Basophils (%) (Auto) 1.3 % (0.0-2.0) Sodium Level 142 MMOL/L (136-145) Potassium Level 4.4 MMOL/L (3.5-5.1) Chloride Level 109 MMOL/L (98-107) H Carbon Dioxide Level 25 MMOL/L (21-32) Anion Gap 9 mmol/L (5-15) Blood Urea Nitrogen 12 mg/dL (7-18) Creatinine 0.6 MG/DL (0.55-1.30) Estimat Glomerular Filtration Rate > 60 mL/min (>60) Glucose Level 82 MG/DL (74-106) Calcium Level 8.7 MG/DL (8.5-10.1) Current Medications Medications (Trade) Dose Ordered Sig/Mnoalisa Route PRN Reason Start Time Stop Time Status Last Admin Dose Admin Acetaminophen (Tylenol) 650 mg Q4H PRN GT Mild Pain (Pain Scale 1-3) 11/21/19 11:30 12/21/19 11:29 Acetaminophen (Tylenol) 650 mg Q4H PRN ORAL FEVER, HEADACHE, MILD PAIN 11/21/19 12:00 12/21/19 11:59 Acetaminophen (Tylenol) 650 mg Q4H PRN RECTAL Temp >100.5 11/21/19 11:15 12/21/19 11:14 Al Hydroxide/Mg Hydroxide (Mylanta) 30 ml Q6HR GT 11/21/19 13:15 12/21/19 13:14 11/27/19 11:06 Ascorbic Acid (Vitamin C) 500 mg TWICE A DAY GT 11/21/19 18:00 12/21/19 17:59 11/27/19 08:26 Barium Sulfate (Varibar Honey) 250 ml NOW PRN MC RAD 11/26/19 15:45 11/29/19 18:00 Barium Sulfate (Varibar [place]) 240 ml NOW PRN MC RAD 11/26/19 15:45 11/29/19 15:44 Barium Sulfate (Varibar Pudding) 230 ml NOW PRN MC RAD 11/26/19 15:45 11/29/19 15:44 Barium Sulfate (Varibar Thin Liquid powder) 148 gm NOW PRN MC RAD 11/26/19 15:45 11/29/19 15:44 Bisacodyl (Dulcolax) 10 mg DAILY PRN RECTAL Constipation 11/21/19 12:00 02/19/20 11:59 Dextrose (Dextrose 50%) 25 ml Q30M PRN IV Hypoglycemia 11/21/19 12:00 02/19/20 11:59 Dextrose (Dextrose 50%) 50 ml Q30M PRN IV Hypoglycemia 11/21/19 12:00 02/19/20 11:59 Docusate Sodium (Colace) 100 mg TWICE A DAY ORAL 11/21/19 18:00 12/21/19 17:59 11/27/19 08:26 Enoxaparin Sodium (Lovenox) 40 mg Q24H SUBQ 11/21/19 13:00 02/19/20 12:59 11/27/19 13:24 Famotidine (Pepcid) 20 mg BEDTIME ORAL 11/21/19 21:00 02/19/20 20:59 11/26/19 21:09 Finasteride (Proscar) 5 mg DAILY ORAL 11/22/19 09:00 02/20/20 08:59 11/27/19 08:26 Hydromorphone HCl (Dilaudid) 1 mg Q8H PRN IVP Moderate Pain (Pain Scale 4-6) 11/21/19 11:15 11/28/19 11:14 Insulin Aspart (NovoLOG) BEFORE MEALS AND HS SUBQ 11/21/19 16:30 02/19/20 16:29 11/23/19 11:45 Insulin Detemir (Levemir) 6 units BEDTIME SUBQ 11/21/19 21:00 02/19/20 20:59 Levetiracetam (Keppra) 2,000 mg BID GT 11/21/19 18:00 12/21/19 17:59 11/27/19 08:26 Lorazepam (Ativan) 1 mg Q6H PRN GT For Anxiety 11/21/19 16:00 11/28/19 15:59 Magnesium Hydroxide (Mom) 30 ml BEDTIME GT 11/21/19 21:00 12/21/19 20:59 11/26/19 21:09 Memantine (Namenda) 5 mg DAILY GT 11/26/19 09:00 12/26/19 08:59 11/27/19 08:26 Ondansetron HCl (Zofran) 4 mg Q6H PRN GT Nausea & Vomiting 11/21/19 12:00 12/21/19 11:59 Pantoprazole (Protonix) 40 mg DAILY IV 11/21/19 12:00 12/21/19 11:59 11/27/19 08:27 Polyethylene Glycol (Miralax) 17 gm DAILY PRN GT Constipation 11/21/19 12:00 12/21/19 11:59 Risperidone (RisperDAL) 1 mg DAILY GT 11/22/19 09:00 01/06/20 08:59 11/27/19 08:26 Temazepam (Restoril) 15 mg BEDTIME PRN ORAL Insomnia 11/21/19 12:00 11/28/19 11:59 Zinc Sulfate (Zinc Sulfate) 220 mg DAILY ORAL 11/22/19 09:00 02/20/20 08:59 11/27/19 08:26 Zolpidem Tartrate (Ambien) 5 mg HSPRN PRN GT Insomnia 11/21/19 11:15 11/28/19 11:14 Dilma Chand M.D. November 27, 2019 14:44
[2019-11-27 16:00] VITALS: BP 109/70
--- NOTE | 2019-11-27 19:10 | NUR ---
HAND-OFF: Report given to Augusta SORENSEN.
[2019-11-27 20:00] VITALS: BP 99/70
--- NOTE | 2019-11-27 20:00 | NUR ---
NURSE NOTES: Received patient awake, confused, non-verbal, resting in bed, comfortable.
[2019-11-27] MEDS: Levemir Flexpen SUBQ SCH (21:00)
[2019-11-27] MEDS: Milk of Magnesia 30ml Ud GT SCH (21:00)
[2019-11-28 00:06] VITALS: BP 95/66
[2019-11-28 04:00] VITALS: BP 107/68
[2019-11-28] MEDS: NovoLOG Insulin Flexpen SUBQ SCH ×4 (06:08→21:00)
--- NOTE | 2019-11-28 07:20 | NUR ---
NURSE NOTES: Received patient in bed. Awake, alert x1. On room air, respirations unlabored. No signs of pain at this time. IV in the Left upper arm, site is intact. GT in place, flushed and patent. Condom catheter in place. Bed low and locked, call light within reach.
--- NOTE | 2019-11-28 07:22 | NUR ---
HAND-OFF: Report given to Herrera Rodriguez RN.
[2019-11-28 07:29] LABS: ANION GAP 7 mmol/L (5-15); BLOOD UREA NITROGEN 12 mg/dL (7-18); CALCIUM 8.9 MG/DL (8.5-10.1); CARBON DIOXIDE 25 MMOL/L (21-32); CHLORIDE 109 MMOL/L (98-107); CREATININE 0.7 MG/DL (0.55-1.30); POTASSIUM 4.2 MMOL/L (3.5-5.1); SODIUM 141 MMOL/L (136-145)
[2019-11-28 08:00] VITALS: BP 119/61
--- NOTE | 2019-11-28 08:20 | NUR ---
RD ASSESSMENT & RECOMMENDATIONS SEE CARE ACTIVITY FOR COMPLETE ASSESSMENT DAILY ESTIMATED NEEDS: Needs based on DM, 69kg 25-30 kcals/kg 3009-2723 total kcals 1.25-1.5 g protein/kg 86-104 g total protein 25-30 mL/kg 5056-8457 total fluid mLs NUTRITION DIAGNOSIS: * Swallowing difficulty R/T dysphagia, hx CVA as evidenced by pt h/o PEG, now used for meds, pt on oral diet of full liquid per HOSPICE ADMINISTRATOR rec, w/ variable and poor PO intake. CURRENT DIET:CCHO high, FULL LIQUID PO DIET RECOMMENDATIONS: With poor po intake, rec liberalized Regular diet ADDITIONAL RECOMMENDATIONS: 1) Calibrated bed scale for accurate wts 2) Poor po intake, consider GT feeds temporarily -> consider keanu count x 48 hrs 3) Monitor BG closely for hypoglycemia w/ poor po intake -> consider DC qhs Levemir to prevent hypoglycemia, monitor need for D5 IVF 4) Wound care: add MVI, continue vit C DC ZnSO4 (prolonged use of znso4 not indicated)
[2019-11-28] MEDS: Memantine 5 MG TAB GT SCH (08:30)
[2019-11-28] MEDS: Ascorbic Acid 500mg tab GT SCH ×2 (08:30→17:37)
[2019-11-28] MEDS: levETIRAcetam 500mg/5ml Liquid GT SCH ×2 (08:30→17:37)
[2019-11-28] MEDS: Pantoprazole Inj IV SCH (08:30)
[2019-11-28] MEDS: Zinc Sulfate 220mg cap ORAL SCH (08:30)
[2019-11-28 08:40] LABS: MEAN CORPUSCULAR VOLUME 67 FL (80-99); PLATELET COUNT 280 K/UL (150-450); RED BLOOD COUNT 6.13 M/UL (4.70-6.10); RED CELL DISTRIBUTION WIDTH 12.4 % (11.6-14.8); WHITE BLOOD COUNT 3.3 K/UL (4.8-10.8)
--- NOTE | 2019-11-28 08:58 | Pulmonology Progress Note ---
Assessment/Plan Assessment/Plan IMPRESSION: 1. COVID 19 pneumonia. 2. Psych disorder. 3. Diabetes mellitus. 4. Hypertension. 5. Parkinson's. 6. Bacteremia; likely contaminant DISCUSSION: Continue home medications. Continue to provide oxygen and pulmonary hygiene. The patient is saturating well on RA Is positive COVID-19. Broad-spectrum antibiotics per ID. I will follow carefully. Abdifatah Carmichael M.D. Subjective Interval Events: None new Constitutional: Reports: no symptoms HEENT: Repors: no symptoms Respiratory: Reports: no symptoms Cardiovascular: Reports: no symptoms Gastrointestinal/Abdominal: Reports: no symptoms Genitourinary: Reports: no symptoms Allergies: Coded Allergies: NO KNOWN DRUG ALLERGIES (Unverified Allergy, Unknown, 07/16/19) All Systems: reviewed and negative except above Objective Last 24 Hour Vital Signs Date Time Temp Pulse Resp B/P (MAP) Pulse Ox O2 Delivery O2 Flow Rate FiO2 11/28/19 04:00 96.8 79 18 107/68 (81) 95 11/28/19 00:06 97.0 75 16 95/66 (76) 94 11/27/19 21:43 Room Air 11/27/19 20:04 80 18 95 Room Air 21 11/27/19 20:00 97.3 91 18 99/70 (80) 94 11/27/19 16:00 98.1 73 19 109/70 (83) 96 11/27/19 12:00 97.5 87 18 110/68 (82) 97 11/27/19 09:00 Room Air Intake and Output 11/27/19 11/28/19 19:00 07:00 Intake Total 400 ml Output Total 600 ml Balance -200 ml Other 400 ml Output Urine Total 600 ml General Appearance: no acute distress HEENT: normocephalic Respiratory/Chest: chest wall non-tender, lungs clear Cardiovascular: normal peripheral pulses Abdomen: normal bowel sounds Laboratory Tests 11/28/19 06:00: White Blood Count 3.3L, Red Blood Count 6.13H, Hemoglobin 13.0L, Hematocrit 41.0L, Mean Corpuscular Volume 67L, Mean Corpuscular Hemoglobin 21.2L, Mean Corpuscular Hemoglobin Concent 31.7L, Red Cell Distribution Width 12.4, Platelet Count 280, Mean Platelet Volume 7.4, Neutrophils (%) (Auto) , Lymphocytes (%) (Auto) , Monocytes (%) (Auto) , Eosinophils (%) (Auto) , Basophils (%) (Auto) , Neutrophils % (Manual) [Pending], Lymphocytes % (Manual) [Pending], Platelet Estimate [Pending], Platelet Morphology [Pending], Sodium Level 141, Potassium Level 4.2, Chloride Level 109H, Carbon Dioxide Level 25, Anion Gap 7, Blood Urea Nitrogen 12, Creatinine 0.7, Estimat Glomerular Filtration Rate > 60, Glucose Level 105, Calcium Level 8.9 Current Medications Medications (Trade) Dose Ordered Sig/Monalisa Route PRN Reason Start Time Stop Time Status Last Admin Dose Admin Acetaminophen (Tylenol) 650 mg Q4H PRN GT Mild Pain (Pain Scale 1-3) 11/21/19 11:30 12/21/19 11:29 Acetaminophen (Tylenol) 650 mg Q4H PRN ORAL FEVER, HEADACHE, MILD PAIN 11/21/19 12:00 12/21/19 11:59 Acetaminophen (Tylenol) 650 mg Q4H PRN RECTAL Temp >100.5 11/21/19 11:15 12/21/19 11:14 Al Hydroxide/Mg Hydroxide (Mylanta) 30 ml Q6HR GT 11/21/19 13:15 12/21/19 13:14 11/27/19 17:39 Ascorbic Acid (Vitamin C) 500 mg TWICE A DAY GT 11/21/19 18:00 12/21/19 17:59 11/28/19 08:30 Barium Sulfate (Varibar Honey) 250 ml NOW PRN MC RAD 11/26/19 15:45 11/29/19 18:00 Barium Sulfate (Varibar [place]) 240 ml NOW PRN MC RAD 11/26/19 15:45 11/29/19 15:44 Barium Sulfate (Varibar Pudding) 230 ml NOW PRN MC RAD 11/26/19 15:45 11/29/19 15:44 Barium Sulfate (Varibar Thin Liquid powder) 148 gm NOW PRN MC RAD 11/26/19 15:45 11/29/19 15:44 Bisacodyl (Dulcolax) 10 mg DAILY PRN RECTAL Constipation 11/21/19 12:00 02/19/20 11:59 Dextrose (Dextrose 50%) 25 ml Q30M PRN IV Hypoglycemia 11/21/19 12:00 02/19/20 11:59 Dextrose (Dextrose 50%) 50 ml Q30M PRN IV Hypoglycemia 11/21/19 12:00 02/19/20 11:59 Docusate Sodium (Colace) 100 mg TWICE A DAY ORAL 11/21/19 18:00 12/21/19 17:59 11/27/19 17:39 Enoxaparin Sodium (Lovenox) 40 mg Q24H SUBQ 11/21/19 13:00 02/19/20 12:59 11/27/19 13:24 Famotidine (Pepcid) 20 mg BEDTIME ORAL 11/21/19 21:00 02/19/20 20:59 11/27/19 21:25 Finasteride (Proscar) 5 mg DAILY ORAL 11/22/19 09:00 02/20/20 08:59 11/28/19 08:30 Hydromorphone HCl (Dilaudid) 1 mg Q8H PRN IVP Moderate Pain (Pain Scale 4-6) 11/21/19 11:15 11/28/19 11:14 Insulin Aspart (NovoLOG) BEFORE MEALS AND HS SUBQ 11/21/19 16:30 02/19/20 16:29 11/23/19 11:45 Insulin Detemir (Levemir) 6 units BEDTIME SUBQ 11/21/19 21:00 02/19/20 20:59 Levetiracetam (Keppra) 2,000 mg BID GT 11/21/19 18:00 12/21/19 17:59 11/28/19 08:30 Lorazepam (Ativan) 1 mg Q6H PRN GT For Anxiety 11/21/19 16:00 11/28/19 15:59 Magnesium Hydroxide (Mom) 30 ml BEDTIME GT 11/21/19 21:00 12/21/19 20:59 11/26/19 21:09 Memantine (Namenda) 5 mg DAILY GT 11/26/19 09:00 12/26/19 08:59 11/28/19 08:30 Ondansetron HCl (Zofran) 4 mg Q6H PRN GT Nausea & Vomiting 11/21/19 12:00 12/21/19 11:59 Pantoprazole (Protonix) 40 mg DAILY IV 11/21/19 12:00 12/21/19 11:59 11/28/19 08:30 Polyethylene Glycol (Miralax) 17 gm DAILY PRN GT Constipation 11/21/19 12:00 12/21/19 11:59 Risperidone (RisperDAL) 1 mg DAILY GT 11/22/19 09:00 01/06/20 08:59 11/28/19 08:30 Temazepam (Restoril) 15 mg BEDTIME PRN ORAL Insomnia 11/21/19 12:00 11/28/19 11:59 Zinc Sulfate (Zinc Sulfate) 220 mg DAILY ORAL 11/22/19 09:00 02/20/20 08:59 11/28/19 08:30 Zolpidem Tartrate (Ambien) 5 mg HSPRN PRN GT Insomnia 11/21/19 11:15 11/28/19 11:14 Abdifatah Carmichael MD November 28, 2019 08:58
[2019-11-28] MEDS: Docusate 100mg cap ORAL SCH ×2 (09:00→17:57)
--- NOTE | 2019-11-28 09:00 | General Progress Note ---
Assessment/Plan Problem List: (1) Pancytopenia ICD Codes: D61.818 - Other pancytopenia SNOMED: 733516855 (2) Fever ICD Codes: R50.9 - Fever, unspecified SNOMED: 902504943 (3) Cough ICD Codes: R05 - Cough SNOMED: 89384675 (4) Anemia ICD Codes: D64.9 - Anemia, unspecified SNOMED: 874485762 (5) Diabetes ICD Codes: E11.9 - Diabetes SNOMED: 38739922 (6) PEG (percutaneous endoscopic gastrostomy) adjustment/replacement/removal ICD Codes: Z43.1 - Encounter for attention to gastrostomy SNOMED: 771609733 (7) Decubitus ulcer ICD Codes: L89.90 - Pressure ulcer of unspecified site, unspecified stage SNOMED: 525397934 (8) Acute renal failure ICD Codes: N17.9 - Acute renal failure SNOMED: 72120324 (9) Seizure ICD Codes: R56.9 - Seizure SNOMED: 65001269 (10) Weak ICD Codes: R53.1 - Weakness SNOMED: 06374160 (11) UTI (lower urinary tract infection) ICD Codes: N39.0 - UTI (lower urinary tract infection) SNOMED: 5078077 (12) Suspected COVID-19 virus infection ICD Codes: Z20.828 - Contact with and (suspected) exposure to other viral communicable diseases SNOMED: 487555502 Status: unchanged Assessment/Plan: o2 pulm tx abx pt diet eval cbc bmp am Subjective Constitutional: Reports: weakness Allergies: Coded Allergies: NO KNOWN DRUG ALLERGIES (Unverified Allergy, Unknown, 07/16/19) All Systems: reviewed and negative except above Subjective sleepy calm Objective Last 24 Hour Vital Signs Date Time Temp Pulse Resp B/P (MAP) Pulse Ox O2 Delivery O2 Flow Rate FiO2 11/28/19 04:00 96.8 79 18 107/68 (81) 95 11/28/19 00:06 97.0 75 16 95/66 (76) 94 11/27/19 21:43 Room Air 11/27/19 20:04 80 18 95 Room Air 21 11/27/19 20:00 97.3 91 18 99/70 (80) 94 11/27/19 16:00 98.1 73 19 109/70 (83) 96 11/27/19 12:00 97.5 87 18 110/68 (82) 97 Intake and Output 11/27/19 11/28/19 19:00 07:00 Intake Total 400 ml Output Total 600 ml Balance -200 ml Other 400 ml Output Urine Total 600 ml Laboratory Tests 11/28/19 06:00: White Blood Count 3.3L, Red Blood Count 6.13H, Hemoglobin 13.0L, Hematocrit 41.0L, Mean Corpuscular Volume 67L, Mean Corpuscular Hemoglobin 21.2L, Mean Corpuscular Hemoglobin Concent 31.7L, Red Cell Distribution Width 12.4, Platelet Count 280, Mean Platelet Volume 7.4, Neutrophils (%) (Auto) , Lymphocytes (%) (Auto) , Monocytes (%) (Auto) , Eosinophils (%) (Auto) , Basophils (%) (Auto) , Neutrophils % (Manual) [Pending], Lymphocytes % (Manual) [Pending], Platelet Estimate [Pending], Platelet Morphology [Pending], Sodium Level 141, Potassium Level 4.2, Chloride Level 109H, Carbon Dioxide Level 25, Anion Gap 7, Blood Urea Nitrogen 12, Creatinine 0.7, Estimat Glomerular Filtration Rate > 60, Glucose Level 105, Calcium Level 8.9 Height (Feet): 5 Height (Inches): 10.00 Weight (Pounds): 160 General Appearance: lethargic EENT: normal ENT inspection Neck: normal alignment Cardiovascular: normal rate, regular rhythm Respiratory/Chest: no respiratory distress, no accessory muscle use Extremities: normal inspection Skin: normal pigmentation Donaldo Johnson DO November 28, 2019 09:00
[2019-11-28 12:00] VITALS: BP 112/70
[2019-11-28] MEDS: Enoxaparin 40mg Inj SUBQ SCH (13:23)
--- NOTE | 2019-11-28 14:24 | Cardiac Electrophysiology PN ---
Assessment/Plan Assessment/Plan 1. Hypotension, likely dehydrated especially in view of sepsis. Resolved after IV fluids 2. Hypertension. Off metoprolol. 3. COVID-[address] Carmichael 4. Psych disorder. 5. Diabetes. 6. Parkinson's. DIXON RN Subjective Subjective Comfortable in NAD. In Covid isolation. No events Objective Last 24 Hour Vital Signs Date Time Temp Pulse Resp B/P (MAP) Pulse Ox O2 Delivery O2 Flow Rate FiO2 11/28/19 12:00 97.5 115 19 112/70 (84) 96 11/28/19 10:58 78 20 94 Room Air 21 11/28/19 09:00 Room Air 11/28/19 08:00 98.8 81 18 119/61 (80) 97 11/28/19 04:00 96.8 79 18 107/68 (81) 95 11/28/19 00:06 97.0 75 16 95/66 (76) 94 11/27/19 21:43 Room Air 11/27/19 20:04 80 18 95 Room Air 21 11/27/19 20:00 97.3 91 18 99/70 (80) 94 11/27/19 16:00 98.1 73 19 109/70 (83) 96 Intake and Output 11/27/19 11/28/19 19:00 07:00 Intake Total 400 ml Output Total 600 ml Balance -200 ml Other 400 ml Output Urine Total 600 ml Laboratory Tests Test 11/28/19 06:00 White Blood Count 3.3 K/UL (4.8-10.8) L Red Blood Count 6.13 M/UL (4.70-6.10) H Hemoglobin 13.0 G/DL (14.2-18.0) L Hematocrit 41.0 % (42.0-52.0) L Mean Corpuscular Volume 67 FL (80-99) L Mean Corpuscular Hemoglobin 21.2 PG (27.0-31.0) L Mean Corpuscular Hemoglobin Concent 31.7 G/DL (32.0-36.0) L Red Cell Distribution Width 12.4 % (11.6-14.8) Platelet Count 280 K/UL (150-450) Mean Platelet Volume 7.4 FL (6.5-10.1) Neutrophils (%) (Auto) % (45.0-75.0) Lymphocytes (%) (Auto) % (20.0-45.0) Monocytes (%) (Auto) % (1.0-10.0) Eosinophils (%) (Auto) % (0.0-3.0) Basophils (%) (Auto) % (0.0-2.0) Differential Total Cells Counted 100 Neutrophils % (Manual) 45 % (45-75) Lymphocytes % (Manual) 46 % (20-45) H Monocytes % (Manual) 7 % (1-10) Eosinophils % (Manual) 2 % (0-3) Basophils % (Manual) 0 % (0-2) Band Neutrophils 0 % (0-8) Platelet Estimate Adequate Platelet Morphology Normal Red Blood Cell Morphology Normal Sodium Level 141 MMOL/L (136-145) Potassium Level 4.2 MMOL/L (3.5-5.1) Chloride Level 109 MMOL/L (98-107) H Carbon Dioxide Level 25 MMOL/L (21-32) Anion Gap 7 mmol/L (5-15) Blood Urea Nitrogen 12 mg/dL (7-18) Creatinine 0.7 MG/DL (0.55-1.30) Estimat Glomerular Filtration Rate > 60 mL/min (>60) Glucose Level 105 MG/DL (74-106) Calcium Level 8.9 MG/DL (8.5-10.1) Objective HEAD AND NECK: No JVD. LUNGS: Clear. CARDIOVASCULAR: Regular S1 and S2 with no gallop. ABDOMEN: Soft. EXTREMITIES: No pitting edema. Sage Araujo MD November 28, 2019 14:24
[2019-11-28 16:00] VITALS: BP 109/76
--- NOTE | 2019-11-28 19:20 | NUR ---
NURSE NOTES: Received pt from EDU Silverman. Pt awake, nonverbal, on room air. IV site and Gtube intact. HOB elevated. Isolation maintained. Bed locked, lowest position, call light within reach, side rails up, alarm on. Will continue to monitor.
--- NOTE | 2019-11-28 19:29 | NUR ---
HAND-OFF: Report given to Mary SORENSEN.
--- NOTE | 2019-11-28 19:59 | Progress Note ---
DATE: 11/28/2019 SUBJECTIVE: This is a 64-year-old male. He has fever, cough, respiratory insufficiency cognitive decline in cognition below his baseline. That is why, his attending has requested daily psychiatric consultation. DIAGNOSIS: Major depressive disorder, mild, recurrent with psychotic features. PLAN: Risperdal 1 mg per G-tube daily, Ativan 1 per G-tube q.6 hours p.r.n. anxiety and agitation, Namenda 5 mg per G-tube twice a day. Twenty minutes of insight-oriented psychotherapy to help him have understanding of his medical cognitive condition, better impulse control and behavior on the unit. Chart reviewed and discussed with staff. Seen and assessed at bedside. Enrrique Escudero M.D. DR: Sofie JOB#: [id number] CC:
[2019-11-28 20:00] VITALS: BP 94/69
[2019-11-28] MEDS: Levemir Flexpen SUBQ SCH (21:00)
[2019-11-28] MEDS: Milk of Magnesia 30ml Ud GT SCH (21:26)
[2019-11-29] VITALS: BP 100/68
[2019-11-29 04:00] VITALS: BP 104/75
[2019-11-29 05:38] LABS: BASOPHILS % (AUTO) 0.9 % (0.0-2.0); EOSINOPHILS % (AUTO) 2.9 % (0.0-3.0); HEMATOCRIT 40.1 % (42.0-52.0); MEAN CORPUSCULAR VOLUME 67 FL (80-99); MONOCYTES % (AUTO) 9.5 % (1.0-10.0); NEUTROPHILS % (AUTO) 42.7 % (45.0-75.0); PLATELET COUNT 324 K/UL (150-450); RED BLOOD COUNT 5.95 M/UL (4.70-6.10); RED CELL DISTRIBUTION WIDTH 12.6 % (11.6-14.8)
[2019-11-29 05:39] LABS: ANION GAP 12 mmol/L (5-15); BLOOD UREA NITROGEN 16 mg/dL (7-18); CALCIUM 8.8 MG/DL (8.5-10.1); CARBON DIOXIDE 23 MMOL/L (21-32); CHLORIDE 105 MMOL/L (98-107); POTASSIUM 4.2 MMOL/L (3.5-5.1); SODIUM 140 MMOL/L (136-145)
[2019-11-29] MEDS: NovoLOG Insulin Flexpen SUBQ SCH ×4 (05:53→20:26)
--- NOTE | 2019-11-29 07:59 | NUR ---
NURSE NOTES: Upcoming AM nurse unable to take a report. Left SBAR paper to LEXUS Renee.
--- NOTE | 2019-11-29 09:33 | General Progress Note ---
Assessment/Plan Problem List: (1) Pancytopenia ICD Codes: D61.818 - Other pancytopenia SNOMED: 258757446 (2) Fever ICD Codes: R50.9 - Fever, unspecified SNOMED: 204204561 (3) Cough ICD Codes: R05 - Cough SNOMED: 45932586 (4) Anemia ICD Codes: D64.9 - Anemia, unspecified SNOMED: 808316552 (5) Diabetes ICD Codes: E11.9 - Diabetes SNOMED: 01367262 (6) PEG (percutaneous endoscopic gastrostomy) adjustment/replacement/removal ICD Codes: Z43.1 - Encounter for attention to gastrostomy SNOMED: 621448044 (7) Decubitus ulcer ICD Codes: L89.90 - Pressure ulcer of unspecified site, unspecified stage SNOMED: 269423697 (8) Acute renal failure ICD Codes: N17.9 - Acute renal failure SNOMED: 09193907 (9) Seizure ICD Codes: R56.9 - Seizure SNOMED: 00473933 (10) Weak ICD Codes: R53.1 - Weakness SNOMED: 69751788 (11) UTI (lower urinary tract infection) ICD Codes: N39.0 - UTI (lower urinary tract infection) SNOMED: 5563617 (12) Suspected COVID-19 virus infection ICD Codes: Z20.828 - Contact with and (suspected) exposure to other viral communicable diseases SNOMED: 699509613 Status: unchanged Assessment/Plan: o2 pulm tx abx pt diet eval cbc bmp am Subjective Constitutional: Reports: weakness Allergies: Coded Allergies: NO KNOWN DRUG ALLERGIES (Unverified Allergy, Unknown, 07/16/19) All Systems: reviewed and negative except above Subjective sleepy calm Objective Last 24 Hour Vital Signs Date Time Temp Pulse Resp B/P (MAP) Pulse Ox O2 Delivery O2 Flow Rate FiO2 11/29/19 04:00 97.2 95 20 104/75 (85) 99 11/29/19 00:00 96.8 89 20 100/68 (79) 95 11/28/19 21:00 Room Air 11/28/19 20:00 90 18 93 Room Air 21 11/28/19 20:00 96.8 98 20 94/69 (77) 93 11/28/19 16:00 98.8 82 19 109/76 (87) 97 11/28/19 12:00 97.5 115 19 112/70 (84) 96 11/28/19 10:58 78 20 94 Room Air 21 Intake and Output 11/28/19 11/29/19 19:00 07:00 Intake Total 600 ml Output Total 300 ml Balance 600 ml -300 ml Other 600 ml Output Urine Total 300 ml Laboratory Tests 11/29/19 04:00: White Blood Count 5.0#, Red Blood Count 5.95, Hemoglobin 13.0L, Hematocrit 40.1L , Mean Corpuscular Volume 67L, Mean Corpuscular Hemoglobin 21.8L, Mean Corpuscular Hemoglobin Concent 32.4, Red Cell Distribution Width 12.6, Platelet Count 324, Mean Platelet Volume 6.6, Neutrophils (%) (Auto) 42.7L, Lymphocytes ( %) (Auto) 44.0, Monocytes (%) (Auto) 9.5, Eosinophils (%) (Auto) 2.9, Basophils (%) (Auto) 0.9, Sodium Level 140, Potassium Level 4.2, Chloride Level 105, Carbon Dioxide Level 23, Anion Gap 12, Blood Urea Nitrogen 16, Creatinine 1.0, Estimat Glomerular Filtration Rate > 60, Glucose Level 89, Calcium Level 8.8 Height (Feet): 5 Height (Inches): 10.00 Weight (Pounds): 160 General Appearance: lethargic EENT: normal ENT inspection Neck: normal alignment Cardiovascular: normal rate, regular rhythm Respiratory/Chest: no respiratory distress, no accessory muscle use Extremities: normal inspection Skin: normal pigmentation Donaldo Johnson DO November 29, 2019 09:33
[2019-11-29] MEDS: levETIRAcetam 500mg/5ml Liquid GT SCH ×2 (12:02→17:59)
[2019-11-29] MEDS: Pantoprazole Inj IV SCH (12:02)
[2019-11-29] MEDS: Ascorbic Acid 500mg tab GT SCH ×2 (12:02→17:59)
[2019-11-29] MEDS: Memantine 5 MG TAB GT SCH (12:03)
[2019-11-29] MEDS: Docusate 100mg cap ORAL SCH ×2 (12:03→17:59)
[2019-11-29] MEDS: Zinc Sulfate 220mg cap ORAL SCH (12:03)
[2019-11-29] MEDS: Enoxaparin 40mg Inj SUBQ SCH (12:15)
--- NOTE | 2019-11-29 12:59 | NUR ---
HAND-OFF: Report given to EDU Handy.
--- NOTE | 2019-11-29 13:00 | NUR ---
NURSE NOTES: received report from EDU Ospina. patient in bed. sleeping. easily awake. no respiratory distress noted. no facial grimacing. contact droplet isolation d/t positive covid19. IV on Jared saline lock. bed in the lowest position and locked. call light within reach, alarm on. will continue to provide plan of care.
--- NOTE | 2019-11-29 15:03 | Infectious Diseases Prog Note ---
Assessment/Plan Assessment/Plan Assessment: Pnuemonia- currently at [facility]- 2ry to COVID19 (resident at [facility] w/ multiple confirmed cases) -11/24 CXR: No significant interval change compared to exam of 11/20/2019. No new focal airspace consolidation. -CXR: Patchy areas of mild increased hazy opacity of suspected in the right lung. This appears most prominent at the right apex. An acute infectious/ inflammatory process should be considered. There is question of a vertebral body compression fracture of the lower thoracic spine. Gram positive bacteremia- contaminant -11/19 Bcx 1/ S. saprophyticus, / S.epi; 11/20 Bcx Neg Probable UTI -u/a wbc 5-10, nit neg, leuk +1; ucx Neg Afebrile (reported Fever [employer]) Leukopenia/pancytopenia -thrombocytopenia resolved Dm2 HTN seizure disorder dysphagia s/p GT decubitus ulcer FTT cerebral palsy COPD CVA/TIA paranoid schizophrenia non verbal SNF resident (Zaria Good) Plan: -COnt to monitor off abx -11/24 SP IV Vancomycin #5 -11/23 SP Ceftriaxone #2 -11/22 SP Meropenem #3 -11/19 SP CEftriaxone x1, Azithromycin x1 -f/u cx -Monitor CBC/CMP, temperatures -f/u repeat Bcx x2 -COVID 19 isolation -PEG care -aspiration precautions -CXR am Thank you for consulting [facility]. Will continue to follow along with you. Discussed with RN. Subjective Allergies: Coded Allergies: NO KNOWN DRUG ALLERGIES (Unverified Allergy, Unknown, 07/16/19) Subjective afebrile at repeat bx Neg Objective Vital Signs Last 24 Hour Vital Signs Date Time Temp Pulse Resp B/P (MAP) Pulse Ox O2 Delivery O2 Flow Rate FiO2 11/29/19 04:00 97.2 95 20 104/75 (85) 99 11/29/19 00:00 96.8 89 20 100/68 (79) 95 11/28/19 21:00 Room Air 11/28/19 20:00 90 18 93 Room Air 21 11/28/19 20:00 96.8 98 20 94/69 (77) 93 11/28/19 16:00 98.8 82 19 109/76 (87) 97 Height (Feet): 5 Height (Inches): 10.00 Weight (Pounds): 160 Objective not examined to limit COVID19 exposure Laboratory Tests Test 11/29/19 04:00 White Blood Count 5.0 K/UL (4.8-10.8) # Red Blood Count 5.95 M/UL (4.70-6.10) Hemoglobin 13.0 G/DL (14.2-18.0) L Hematocrit 40.1 % (42.0-52.0) L Mean Corpuscular Volume 67 FL (80-99) L Mean Corpuscular Hemoglobin 21.8 PG (27.0-31.0) L Mean Corpuscular Hemoglobin Concent 32.4 G/DL (32.0-36.0) Red Cell Distribution Width 12.6 % (11.6-14.8) Platelet Count 324 K/UL (150-450) Mean Platelet Volume 6.6 FL (6.5-10.1) Neutrophils (%) (Auto) 42.7 % (45.0-75.0) L Lymphocytes (%) (Auto) 44.0 % (20.0-45.0) Monocytes (%) (Auto) 9.5 % (1.0-10.0) Eosinophils (%) (Auto) 2.9 % (0.0-3.0) Basophils (%) (Auto) 0.9 % (0.0-2.0) Sodium Level 140 MMOL/L (136-145) Potassium Level 4.2 MMOL/L (3.5-5.1) Chloride Level 105 MMOL/L (98-107) Carbon Dioxide Level 23 MMOL/L (21-32) Anion Gap 12 mmol/L (5-15) Blood Urea Nitrogen 16 mg/dL (7-18) Creatinine 1.0 MG/DL (0.55-1.30) Estimat Glomerular Filtration Rate > 60 mL/min (>60) Glucose Level 89 MG/DL (74-106) Calcium Level 8.8 MG/DL (8.5-10.1) Current Medications Medications (Trade) Dose Ordered Sig/Monalisa Route PRN Reason Start Time Stop Time Status Last Admin Dose Admin Acetaminophen (Tylenol) 650 mg Q4H PRN GT Mild Pain (Pain Scale 1-3) 11/21/19 11:30 12/21/19 11:29 Acetaminophen (Tylenol) 650 mg Q4H PRN ORAL FEVER, HEADACHE, MILD PAIN 11/21/19 12:00 12/21/19 11:59 Acetaminophen (Tylenol) 650 mg Q4H PRN RECTAL Temp >100.5 11/21/19 11:15 12/21/19 11:14 Al Hydroxide/Mg Hydroxide (Mylanta) 30 ml Q6HR GT 11/21/19 13:15 12/21/19 13:14 11/29/19 12:11 Ascorbic Acid (Vitamin C) 500 mg TWICE A DAY GT 11/21/19 18:00 12/21/19 17:59 11/29/19 12:02 Barium Sulfate (Varibar Honey) 250 ml NOW PRN MC RAD 11/26/19 15:45 11/29/19 18:00 Barium Sulfate (Varibar [place]) 240 ml NOW PRN MC RAD 11/26/19 15:45 11/29/19 15:44 Barium Sulfate (Varibar Pudding) 230 ml NOW PRN MC RAD 11/26/19 15:45 11/29/19 15:44 Barium Sulfate (Varibar Thin Liquid powder) 148 gm NOW PRN MC RAD 11/26/19 15:45 11/29/19 15:44 Bisacodyl (Dulcolax) 10 mg DAILY PRN RECTAL Constipation 11/21/19 12:00 02/19/20 11:59 Dextrose (Dextrose 50%) 25 ml Q30M PRN IV Hypoglycemia 11/21/19 12:00 02/19/20 11:59 Dextrose (Dextrose 50%) 50 ml Q30M PRN IV Hypoglycemia 11/21/19 12:00 02/19/20 11:59 Docusate Sodium (Colace) 100 mg TWICE A DAY ORAL 11/21/19 18:00 12/21/19 17:59 11/29/19 12:03 Enoxaparin Sodium (Lovenox) 40 mg Q24H SUBQ 11/21/19 13:00 02/19/20 12:59 11/29/19 12:15 Famotidine (Pepcid) 20 mg BEDTIME ORAL 11/21/19 21:00 02/19/20 20:59 11/28/19 21:26 Finasteride (Proscar) 5 mg DAILY ORAL 11/22/19 09:00 02/20/20 08:59 11/29/19 12:03 Insulin Aspart (NovoLOG) BEFORE MEALS AND HS SUBQ 11/21/19 16:30 02/19/20 16:29 11/23/19 11:45 Insulin Detemir (Levemir) 6 units BEDTIME SUBQ 11/21/19 21:00 02/19/20 20:59 Levetiracetam (Keppra) 2,000 mg BID GT 11/21/19 18:00 12/21/19 17:59 11/29/19 12:02 Magnesium Hydroxide (Mom) 30 ml BEDTIME GT 11/21/19 21:00 12/21/19 20:59 11/28/19 21:26 Memantine (Namenda) 5 mg DAILY GT 11/26/19 09:00 12/26/19 08:59 11/29/19 12:03 Ondansetron HCl (Zofran) 4 mg Q6H PRN GT Nausea & Vomiting 11/21/19 12:00 12/21/19 11:59 Pantoprazole (Protonix) 40 mg DAILY IV 11/21/19 12:00 12/21/19 11:59 11/29/19 12:02 Polyethylene Glycol (Miralax) 17 gm DAILY PRN GT Constipation 11/21/19 12:00 12/21/19 11:59 Risperidone (RisperDAL) 1 mg DAILY GT 11/22/19 09:00 01/06/20 08:59 11/28/19 08:30 Zinc Sulfate (Zinc Sulfate) 220 mg DAILY ORAL 11/22/19 09:00 02/20/20 08:59 11/29/19 12:03 Dilma Chand M.D. November 29, 2019 15:03
[2019-11-29 16:00] VITALS: BP 96/58
--- NOTE | 2019-11-29 17:18 | Pulmonology Progress Note ---
Assessment/Plan Assessment/Plan IMPRESSION: 1. COVID 19 pneumonia. 2. Psych disorder. 3. Diabetes mellitus. 4. Hypertension. 5. Parkinson's. 6. Bacteremia; likely contaminant DISCUSSION: Continue home medications. Continue to provide oxygen and pulmonary hygiene. The patient is saturating well on RA Is positive COVID-19. Broad-spectrum antibiotics per ID. I will follow carefully. Abdifatah Carmichael M.D. Subjective Interval Events: None new Constitutional: Reports: no symptoms HEENT: Repors: no symptoms Respiratory: Reports: no symptoms Cardiovascular: Reports: no symptoms Gastrointestinal/Abdominal: Reports: no symptoms Genitourinary: Reports: no symptoms Allergies: Coded Allergies: NO KNOWN DRUG ALLERGIES (Unverified Allergy, Unknown, 07/16/19) All Systems: reviewed and negative except above Objective Last 24 Hour Vital Signs Date Time Temp Pulse Resp B/P (MAP) Pulse Ox O2 Delivery O2 Flow Rate FiO2 11/29/19 16:00 98.3 82 20 96/58 (71) 98 11/29/19 09:00 Room Air 11/29/19 04:00 97.2 95 20 104/75 (85) 99 11/29/19 00:00 96.8 89 20 100/68 (79) 95 11/28/19 21:00 Room Air 11/28/19 20:00 90 18 93 Room Air 21 11/28/19 20:00 96.8 98 20 94/69 (77) 93 Intake and Output 11/28/19 11/29/19 19:00 07:00 Intake Total 600 ml Output Total 300 ml Balance 600 ml -300 ml Other 600 ml Output Urine Total 300 ml General Appearance: no acute distress HEENT: normocephalic Respiratory/Chest: chest wall non-tender, lungs clear Cardiovascular: normal peripheral pulses Abdomen: normal bowel sounds Laboratory Tests 11/29/19 04:00: White Blood Count 5.0#, Red Blood Count 5.95, Hemoglobin 13.0L, Hematocrit 40.1L , Mean Corpuscular Volume 67L, Mean Corpuscular Hemoglobin 21.8L, Mean Corpuscular Hemoglobin Concent 32.4, Red Cell Distribution Width 12.6, Platelet Count 324, Mean Platelet Volume 6.6, Neutrophils (%) (Auto) 42.7L, Lymphocytes ( %) (Auto) 44.0, Monocytes (%) (Auto) 9.5, Eosinophils (%) (Auto) 2.9, Basophils (%) (Auto) 0.9, Sodium Level 140, Potassium Level 4.2, Chloride Level 105, Carbon Dioxide Level 23, Anion Gap 12, Blood Urea Nitrogen 16, Creatinine 1.0, Estimat Glomerular Filtration Rate > 60, Glucose Level 89, Calcium Level 8.8 Current Medications Medications (Trade) Dose Ordered Sig/Monalisa Route PRN Reason Start Time Stop Time Status Last Admin Dose Admin Acetaminophen (Tylenol) 650 mg Q4H PRN GT Mild Pain (Pain Scale 1-3) 11/21/19 11:30 12/21/19 11:29 Acetaminophen (Tylenol) 650 mg Q4H PRN ORAL FEVER, HEADACHE, MILD PAIN 11/21/19 12:00 12/21/19 11:59 Acetaminophen (Tylenol) 650 mg Q4H PRN RECTAL Temp >100.5 11/21/19 11:15 12/21/19 11:14 Al Hydroxide/Mg Hydroxide (Mylanta) 30 ml Q6HR GT 11/21/19 13:15 12/21/19 13:14 11/29/19 12:11 Ascorbic Acid (Vitamin C) 500 mg TWICE A DAY GT 11/21/19 18:00 12/21/19 17:59 11/29/19 12:02 Barium Sulfate (Varibar Honey) 250 ml NOW PRN MC RAD 11/26/19 15:45 11/29/19 18:00 Bisacodyl (Dulcolax) 10 mg DAILY PRN RECTAL Constipation 11/21/19 12:00 02/19/20 11:59 Dextrose (Dextrose 50%) 25 ml Q30M PRN IV Hypoglycemia 11/21/19 12:00 02/19/20 11:59 Dextrose (Dextrose 50%) 50 ml Q30M PRN IV Hypoglycemia 11/21/19 12:00 02/19/20 11:59 Docusate Sodium (Colace) 100 mg TWICE A DAY ORAL 11/21/19 18:00 12/21/19 17:59 11/29/19 12:03 Enoxaparin Sodium (Lovenox) 40 mg Q24H SUBQ 11/21/19 13:00 02/19/20 12:59 11/29/19 12:15 Famotidine (Pepcid) 20 mg BEDTIME ORAL 11/21/19 21:00 02/19/20 20:59 11/28/19 21:26 Finasteride (Proscar) 5 mg DAILY ORAL 11/22/19 09:00 02/20/20 08:59 11/29/19 12:03 Insulin Aspart (NovoLOG) BEFORE MEALS AND HS SUBQ 11/21/19 16:30 02/19/20 16:29 11/23/19 11:45 Insulin Detemir (Levemir) 6 units BEDTIME SUBQ 11/21/19 21:00 02/19/20 20:59 Levetiracetam (Keppra) 2,000 mg BID GT 11/21/19 18:00 12/21/19 17:59 11/29/19 12:02 Magnesium Hydroxide (Mom) 30 ml BEDTIME GT 11/21/19 21:00 12/21/19 20:59 11/28/19 21:26 Memantine (Namenda) 5 mg DAILY GT 11/26/19 09:00 12/26/19 08:59 11/29/19 12:03 Ondansetron HCl (Zofran) 4 mg Q6H PRN GT Nausea & Vomiting 11/21/19 12:00 12/21/19 11:59 Pantoprazole (Protonix) 40 mg DAILY IV 11/21/19 12:00 12/21/19 11:59 11/29/19 12:02 Polyethylene Glycol (Miralax) 17 gm DAILY PRN GT Constipation 11/21/19 12:00 12/21/19 11:59 Risperidone (RisperDAL) 1 mg DAILY GT 11/22/19 09:00 01/06/20 08:59 11/28/19 08:30 Zinc Sulfate (Zinc Sulfate) 220 mg DAILY ORAL 11/22/19 09:00 02/20/20 08:59 11/29/19 12:03 Abdifatah Carmichael MD November 29, 2019 17:18
--- NOTE | 2019-11-29 17:45 | Progress Note ---
DATE: 11/29/2019 SUBJECTIVE: This is a 64-year-old male patient with fever and cough. He has also altered mental status and confusion. He has got decline in cognition below his baseline MENTAL STATUS EXAMINATION: This is a 64-year-old male. Appearance is disheveled. Attitude, irritable and agitated. Affect, guarded and restricted. Intellect poor. Mood, depressed and anxious. Motor activity, psychomotor agitation. Insight and judgment is poor. DIAGNOSIS: Major depressive disorder, mild, recurrent with psychotic features. PLAN: Ativan 1 per G-tube every 6 hours p.r.n. anxiety and agitation, Risperdal 1 mg per G-tube daily, Namenda 5 mg per G-tube twice a day. A 20-minutes of insight-oriented psychotherapy to help him understand his medical and cognitive conditions so he have better impulse control and behavior on the unit and understanding of his medical and psychiatric condition. Chart reviewed and discussed with staff. Seen and assessed in the room. Enrrique Escudero M.D. DR: Divya JOB#: [id number] CC:
--- NOTE | 2019-11-29 18:51 | Hematology/Onc Progress Note ---
Assessment/Plan Assessment/Plan Assessment and Recs # Pancytopenia r/o underlying infection, may be covid19 related, but need results first, also may be pna related --> covid 19++ --> hepatitis and hiv are negative --> us of the abdomen has been ordered--> ct recently neg --> p smear is pending--> nos Shistocytes seen --> remains on abx as per id --> transfuse, given plt as needed --> wbc 3.4->3.5-->5 -> hgb 13-->12-->13 # Pneumonia, poa --> CXR - R sided lobe infiltrate --> remains on abx # Psych disorder. --> per G Kota via gtube # Diabetes mellitus. # Hypertension. # Parkinson's. # Dvt ppx lovenox sq Appreciate consultation and antonio Rn Subjective Allergies: Coded Allergies: NO KNOWN DRUG ALLERGIES (Unverified Allergy, Unknown, 07/16/19) Subjective 11/22 nonverbal, asleep, no complaints, gtube flushing well, without issue, no bleeding 11/23 remains confused, is awake, no bleeding, labs reviewed\ 11/24 remains very confused, labs ordered, antonio rn 11/25 no major events, bp was low last night, fluids given 11/26 agitated, no major changes, labs pending 11/28 covid 19++, labs reviewed, on room air, no acute distress Objective Objective Current Medications Medications (Trade) Dose Ordered Sig/Monalisa Route PRN Reason Start Time Stop Time Status Last Admin Dose Admin Acetaminophen (Tylenol) 650 mg Q4H PRN GT Mild Pain (Pain Scale 1-3) 11/21/19 11:30 12/21/19 11:29 Acetaminophen (Tylenol) 650 mg Q4H PRN ORAL FEVER, HEADACHE, MILD PAIN 11/21/19 12:00 12/21/19 11:59 Acetaminophen (Tylenol) 650 mg Q4H PRN RECTAL Temp >100.5 11/21/19 11:15 12/21/19 11:14 Al Hydroxide/Mg Hydroxide (Mylanta) 30 ml Q6HR GT 11/21/19 13:15 12/21/19 13:14 11/29/19 17:59 Ascorbic Acid (Vitamin C) 500 mg TWICE A DAY GT 11/21/19 18:00 12/21/19 17:59 11/29/19 17:59 Bisacodyl (Dulcolax) 10 mg DAILY PRN RECTAL Constipation 11/21/19 12:00 02/19/20 11:59 Dextrose (Dextrose 50%) 25 ml Q30M PRN IV Hypoglycemia 11/21/19 12:00 02/19/20 11:59 Dextrose (Dextrose 50%) 50 ml Q30M PRN IV Hypoglycemia 11/21/19 12:00 02/19/20 11:59 Docusate Sodium (Colace) 100 mg TWICE A DAY ORAL 11/21/19 18:00 12/21/19 17:59 11/29/19 17:59 Enoxaparin Sodium (Lovenox) 40 mg Q24H SUBQ 11/21/19 13:00 02/19/20 12:59 11/29/19 12:15 Famotidine (Pepcid) 20 mg BEDTIME ORAL 11/21/19 21:00 02/19/20 20:59 11/28/19 21:26 Finasteride (Proscar) 5 mg DAILY ORAL 11/22/19 09:00 02/20/20 08:59 11/29/19 12:03 Insulin Aspart (NovoLOG) BEFORE MEALS AND HS SUBQ 11/21/19 16:30 02/19/20 16:29 11/23/19 11:45 Insulin Detemir (Levemir) 6 units BEDTIME SUBQ 11/21/19 21:00 02/19/20 20:59 Levetiracetam (Keppra) 2,000 mg BID GT 11/21/19 18:00 12/21/19 17:59 11/29/19 17:59 Magnesium Hydroxide (Mom) 30 ml BEDTIME GT 11/21/19 21:00 12/21/19 20:59 11/28/19 21:26 Memantine (Namenda) 5 mg DAILY GT 11/26/19 09:00 12/26/19 08:59 11/29/19 12:03 Ondansetron HCl (Zofran) 4 mg Q6H PRN GT Nausea & Vomiting 11/21/19 12:00 12/21/19 11:59 Pantoprazole (Protonix) 40 mg DAILY IV 11/21/19 12:00 12/21/19 11:59 11/29/19 12:02 Polyethylene Glycol (Miralax) 17 gm DAILY PRN GT Constipation 11/21/19 12:00 12/21/19 11:59 Risperidone (RisperDAL) 1 mg DAILY GT 11/22/19 09:00 01/06/20 08:59 11/28/19 08:30 Zinc Sulfate (Zinc Sulfate) 220 mg DAILY ORAL 11/22/19 09:00 02/20/20 08:59 11/29/19 12:03 Last 24 Hour Vital Signs Date Time Temp Pulse Resp B/P (MAP) Pulse Ox O2 Delivery O2 Flow Rate FiO2 11/29/19 16:00 98.3 82 20 96/58 (71) 98 11/29/19 09:00 Room Air 11/29/19 04:00 97.2 95 20 104/75 (85) 99 11/29/19 00:00 96.8 89 20 100/68 (79) 95 11/28/19 21:00 Room Air 11/28/19 20:00 90 18 93 Room Air 21 11/28/19 20:00 96.8 98 20 94/69 (77) 93 11/28/19 16:00 98.8 82 19 109/76 (87) 97 11/28/19 12:00 97.5 115 19 112/70 (84) 96 11/28/19 10:58 78 20 94 Room Air 21 11/28/19 09:00 Room Air 11/28/19 08:00 98.8 81 18 119/61 (80) 97 11/28/19 04:00 96.8 79 18 107/68 (81) 95 11/28/19 00:06 97.0 75 16 95/66 (76) 94 11/27/19 21:43 Room Air 11/27/19 20:04 80 18 95 Room Air 21 11/27/19 20:00 97.3 91 18 99/70 (80) 94 Intake and Output 11/28/19 11/29/19 19:00 07:00 Intake Total 600 ml Output Total 300 ml Balance 600 ml -300 ml Other 600 ml Output Urine Total 300 ml Labs Test 11/27/19 05:15 11/28/19 06:00 11/29/19 04:00 White Blood Count 3.8 K/UL (4.8-10.8) 3.3 K/UL (4.8-10.8) 5.0 K/UL (4.8-10.8) Red Blood Count 6.08 M/UL (4.70-6.10) 6.13 M/UL (4.70-6.10) 5.95 M/UL (4.70-6.10) Hemoglobin 12.9 G/DL (14.2-18.0) 13.0 G/DL (14.2-18.0) 13.0 G/DL (14.2-18.0) Hematocrit 41.1 % (42.0-52.0) 41.0 % (42.0-52.0) 40.1 % (42.0-52.0) Mean Corpuscular Volume 68 FL (80-99) 67 FL (80-99) 67 FL (80-99) Mean Corpuscular Hemoglobin 21.2 PG (27.0-31.0) 21.2 PG (27.0-31.0) 21.8 PG (27.0-31.0) Mean Corpuscular Hemoglobin Concent 31.4 G/DL (32.0-36.0) 31.7 G/DL (32.0-36.0) 32.4 G/DL (32.0-36.0) Red Cell Distribution Width 12.7 % (11.6-14.8) 12.4 % (11.6-14.8) 12.6 % (11.6-14.8) Platelet Count 231 K/UL (150-450) 280 K/UL (150-450) 324 K/UL (150-450) Mean Platelet Volume 7.1 FL (6.5-10.1) 7.4 FL (6.5-10.1) 6.6 FL (6.5-10.1) Neutrophils (%) (Auto) 37.1 % (45.0-75.0) % (45.0-75.0) 42.7 % (45.0-75.0) Lymphocytes (%) (Auto) 41.9 % (20.0-45.0) % (20.0-45.0) 44.0 % (20.0-45.0) Monocytes (%) (Auto) 15.3 % (1.0-10.0) % (1.0-10.0) 9.5 % (1.0-10.0) Eosinophils (%) (Auto) 4.5 % (0.0-3.0) % (0.0-3.0) 2.9 % (0.0-3.0) Basophils (%) (Auto) 1.3 % (0.0-2.0) % (0.0-2.0) 0.9 % (0.0-2.0) Sodium Level 142 MMOL/L (136-145) 141 MMOL/L (136-145) 140 MMOL/L (136-145) Potassium Level 4.4 MMOL/L (3.5-5.1) 4.2 MMOL/L (3.5-5.1) 4.2 MMOL/L (3.5-5.1) Chloride Level 109 MMOL/L (98-107) 109 MMOL/L (98-107) 105 MMOL/L (98-107) Carbon Dioxide Level 25 MMOL/L (21-32) 25 MMOL/L (21-32) 23 MMOL/L (21-32) Anion Gap 9 mmol/L (5-15) 7 mmol/L (5-15) 12 mmol/L (5-15) Blood Urea Nitrogen 12 mg/dL (7-18) 12 mg/dL (7-18) 16 mg/dL (7-18) Creatinine 0.6 MG/DL (0.55-1.30) 0.7 MG/DL (0.55-1.30) 1.0 MG/DL (0.55-1.30) Estimat Glomerular Filtration Rate > 60 mL/min (>60) > 60 mL/min (>60) > 60 mL/min (>60) Glucose Level 82 MG/DL (74-106) 105 MG/DL (74-106) 89 MG/DL (74-106) Calcium Level 8.7 MG/DL (8.5-10.1) 8.9 MG/DL (8.5-10.1) 8.8 MG/DL (8.5-10.1) Differential Total Cells Counted 100 Neutrophils % (Manual) 45 % (45-75) Lymphocytes % (Manual) 46 % (20-45) Monocytes % (Manual) 7 % (1-10) Eosinophils % (Manual) 2 % (0-3) Basophils % (Manual) 0 % (0-2) Band Neutrophils 0 % (0-8) Platelet Estimate Adequate Platelet Morphology Normal Red Blood Cell Morphology Normal Height (Feet): 5 Height (Inches): 10.00 Weight (Pounds): 160 Objective Physical Exam Vitals: reviewed, normal, nonverbal Gen: no apparent distress, GCS 15, non-toxic, other - nonverbal Heent; nc, at, eomi Resp: chest non-tender, lungs clear, normal breath sounds, speaking full sentences CV: rrr, no mgr Gi: normal bs Neuro: nonverbal Lymphatic: no adenopathy Afshin Curry MD November 29, 2019 18:51
--- NOTE | 2019-11-29 19:30 | NUR ---
HAND-OFF: Report given to EDU Hernandez.
[2019-11-29 20:00] VITALS: BP 101/62
[2019-11-29] MEDS: Levemir Flexpen SUBQ SCH (20:26)
[2019-11-29] MEDS: Milk of Magnesia 30ml Ud GT SCH (20:26)
[2019-11-30] VITALS: BP 93/56
[2019-11-30 04:48] LABS: BASOPHILS % (AUTO) 1.2 % (0.0-2.0); EOSINOPHILS % (AUTO) 2.8 % (0.0-3.0); HEMATOCRIT 41.5 % (42.0-52.0); HEMOGLOBIN 13.4 G/DL (14.2-18.0); LYMPHOCYTES % (AUTO) 34.2 % (20.0-45.0); MEAN CORPUSCULAR VOLUME 67 FL (80-99); MONOCYTES % (AUTO) 8.4 % (1.0-10.0); NEUTROPHILS % (AUTO) 53.4 % (45.0-75.0); PLATELET COUNT 368 K/UL (150-450); RED BLOOD COUNT 6.17 M/UL (4.70-6.10); RED CELL DISTRIBUTION WIDTH 12.7 % (11.6-14.8); WHITE BLOOD COUNT 4.6 K/UL (4.8-10.8)
[2019-11-30 05:23] LABS: ANION GAP 6 mmol/L (5-15); BLOOD UREA NITROGEN 17 mg/dL (7-18); CALCIUM 9.2 MG/DL (8.5-10.1); CARBON DIOXIDE 27 MMOL/L (21-32); CHLORIDE 106 MMOL/L (98-107); CREATININE 0.9 MG/DL (0.55-1.30); FERRITIN 279 NG/ML (8-388); POTASSIUM 4.2 MMOL/L (3.5-5.1); SODIUM 139 MMOL/L (136-145)
[2019-11-30] MEDS: NovoLOG Insulin Flexpen SUBQ SCH ×3 (05:58→16:30)
--- NOTE | 2019-11-30 07:30 | NUR ---
HAND-OFF: Report given to EDU Vallejo.
--- NOTE | 2019-11-30 07:55 | NUR ---
NURSE NOTES: Report received from Mary SORENSEN. Seen pt on rounds, awake, nonverbal responsive, on room air. IV site and Gtube intact. HOB elevated. Isolation maintained. Bed locked, lowest position, call light within reach, side rails up, alarm on. Will continue to monitor.
[2019-11-30 08:00] VITALS: BP 96/58
[2019-11-30] MEDS: Pantoprazole Inj IV SCH (09:34)
[2019-11-30] MEDS: levETIRAcetam 500mg/5ml Liquid GT SCH ×2 (09:35→18:47)
[2019-11-30] MEDS: Zinc Sulfate 220mg cap ORAL SCH (09:35)
[2019-11-30] MEDS: Ascorbic Acid 500mg tab GT SCH ×2 (09:35→18:47)
[2019-11-30] MEDS: Memantine 5 MG TAB GT SCH (09:35)
[2019-11-30] MEDS: Docusate 100mg cap ORAL SCH ×2 (09:35→18:47)
--- NOTE | 2019-11-30 09:51 | General Progress Note ---
Assessment/Plan Problem List: (1) Pancytopenia ICD Codes: D61.818 - Other pancytopenia SNOMED: 063510081 (2) Fever ICD Codes: R50.9 - Fever, unspecified SNOMED: 461179147 (3) Cough ICD Codes: R05 - Cough SNOMED: 14267543 (4) Anemia ICD Codes: D64.9 - Anemia, unspecified SNOMED: 612412698 (5) Diabetes ICD Codes: E11.9 - Diabetes SNOMED: 15933105 (6) PEG (percutaneous endoscopic gastrostomy) adjustment/replacement/removal ICD Codes: Z43.1 - Encounter for attention to gastrostomy SNOMED: 561076044 (7) Decubitus ulcer ICD Codes: L89.90 - Pressure ulcer of unspecified site, unspecified stage SNOMED: 168083538 (8) Acute renal failure ICD Codes: N17.9 - Acute renal failure SNOMED: 60820010 (9) Seizure ICD Codes: R56.9 - Seizure SNOMED: 15464336 (10) Weak ICD Codes: R53.1 - Weakness SNOMED: 52603766 (11) UTI (lower urinary tract infection) ICD Codes: N39.0 - UTI (lower urinary tract infection) SNOMED: 2786541 (12) Suspected COVID-19 virus infection ICD Codes: Z20.828 - Contact with and (suspected) exposure to other viral communicable diseases SNOMED: 749608215 Status: unchanged Assessment/Plan: o2 pulm tx abx pt diet eval cbc bmp am Subjective Constitutional: Reports: weakness Allergies: Coded Allergies: NO KNOWN DRUG ALLERGIES (Unverified Allergy, Unknown, 07/16/19) All Systems: reviewed and negative except above Subjective sleepy calm Objective Last 24 Hour Vital Signs Date Time Temp Pulse Resp B/P (MAP) Pulse Ox O2 Delivery O2 Flow Rate FiO2 11/30/19 00:00 97.6 73 16 93/56 (68) 94 11/29/19 21:00 Room Air 11/29/19 20:02 89 20 96 Room Air 21 11/29/19 20:00 97.9 89 20 101/62 (75) 96 11/29/19 16:00 98.3 82 20 96/58 (71) 98 Intake and Output 11/29/19 11/30/19 19:00 07:00 Intake Total 240 ml Output Total 350 ml Balance -110 ml Intake Oral 240 ml Output Urine Total 350 ml # Voids 2 # Bowel Movements 1 Laboratory Tests 11/30/19 04:00: White Blood Count 4.6L, Red Blood Count 6.17H, Hemoglobin 13.4L, Hematocrit 41.5L, Mean Corpuscular Volume 67L, Mean Corpuscular Hemoglobin 21.7L, Mean Corpuscular Hemoglobin Concent 32.3, Red Cell Distribution Width 12.7, Platelet Count 368, Mean Platelet Volume 7.6, Neutrophils (%) (Auto) 53.4, Lymphocytes (% ) (Auto) 34.2, Monocytes (%) (Auto) 8.4, Eosinophils (%) (Auto) 2.8, Basophils ( %) (Auto) 1.2, Sodium Level 139, Potassium Level 4.2, Chloride Level 106, Carbon Dioxide Level 27, Anion Gap 6, Blood Urea Nitrogen 17, Creatinine 0.9, Estimat Glomerular Filtration Rate > 60, Glucose Level 101, Calcium Level 9.2, Ferritin 279, C-Reactive Protein, Quantitative 1.1H Height (Feet): 5 Height (Inches): 10.00 Weight (Pounds): 160 General Appearance: lethargic EENT: normal ENT inspection Neck: normal alignment Cardiovascular: normal rate, regular rhythm Respiratory/Chest: no respiratory distress, no accessory muscle use Extremities: normal inspection Skin: normal pigmentation Donaldo Johnson DO November 30, 2019 09:51
--- NOTE | 2019-11-30 10:34 | Diagnostic Imaging Report ---
Indication: Cough Technique: One view of the chest Comparison: 11/25/2019 Findings: Minimal atelectasis or scarring is seen in the right perihilar region, unchanged. No new infiltrates. Heart size is normal. Pleural spaces are clear. Impression: No acute process
--- NOTE | 2019-11-30 11:06 | Hematology/Onc Progress Note ---
Assessment/Plan Assessment/Plan Assessment and Recs # Pancytopenia r/o underlying infection, may be covid19 related, but need results first, also may be pna related --> covid 19++ --> hepatitis and hiv are negative --> us of the abdomen has been ordered--> ct recently neg --> p smear is pending--> nos Shistocytes seen --> remains on abx as per id --> transfuse, given plt as needed --> wbc 3.4->3.5-->5->4.6 -> hgb 13-->12-->13-->13 # Pneumonia, poa --> CXR - R sided lobe infiltrate --> remains on abx # Psych disorder. --> per G Kota via gtube # Diabetes mellitus. # Hypertension. # Parkinson's. # Dvt ppx lovenox sq Appreciate consultation and antonio Rn Subjective Constitutional: Denies: no symptoms, chills, fever, malaise, weakness, other HEENT: Denies: no symptoms, eye pain, blurred vision, tearing, double vision, ear pain, ear discharge, nose pain, nose congestion, throat pain, throat swelling, mouth pain, mouth swelling, other Cardiovascular: Denies: no symptoms, chest pain, edema, irregular heart rate, lightheadedness, palpitations, syncope, other Respiratory: Denies: no symptoms, cough, shortness of breath, SOB with excertion, SOB at rest, sputum, wheezing, other Gastrointestinal/Abdominal: Denies: no symptoms, abdomen distended, abdominal pain, black stools, tarry stools, blood in stool, constipated, diarrhea, difficulty swallowing, nausea, poor appetite, poor fluid intake, rectal bleeding , vomiting, other Genitourinary: Denies: no symptoms, burning, discharge, frequency, flank pain, hematuria, incontinence, pain, urgency, other Neurologic/Psychiatric: Denies: no symptoms, anxiety, depressed, emotional problems, headache, numbness, paresthesia, pre-existing deficit, seizure, tingling, tremors, weakness, other Endocrine: Denies: no symptoms, excessive sweating, flushing, intolerance to cold, intolerance to heat, increased hunger, increased thirst, increased urine, unexplained weight gain, unexplained weight loss, other Hematologic/Lymphatic: Denies: no symptoms, anemia, easy bleeding, easy bruising, adenopathy, other Allergies: Coded Allergies: NO KNOWN DRUG ALLERGIES (Unverified Allergy, Unknown, 07/16/19) Subjective 11/22 nonverbal, asleep, no complaints, gtube flushing well, without issue, no bleeding 11/23 remains confused, is awake, no bleeding, labs reviewed\ 11/24 remains very confused, labs ordered, dw rn 11/25 no major events, bp was low last night, fluids given 11/26 agitated, no major changes, labs pending 11/28 covid 19++, labs reviewed, on room air, no acute distress 11/29 the wbc slightly lower, no bleeding, nonverbal, no night sweats Objective Objective Current Medications Medications (Trade) Dose Ordered Sig/Monalisa Route PRN Reason Start Time Stop Time Status Last Admin Dose Admin Acetaminophen (Tylenol) 650 mg Q4H PRN GT Mild Pain (Pain Scale 1-3) 11/21/19 11:30 12/21/19 11:29 Acetaminophen (Tylenol) 650 mg Q4H PRN ORAL FEVER, HEADACHE, MILD PAIN 11/21/19 12:00 12/21/19 11:59 Acetaminophen (Tylenol) 650 mg Q4H PRN RECTAL Temp >100.5 11/21/19 11:15 12/21/19 11:14 Al Hydroxide/Mg Hydroxide (Mylanta) 30 ml Q6HR GT 11/21/19 13:15 12/21/19 13:14 11/30/19 06:03 Ascorbic Acid (Vitamin C) 500 mg TWICE A DAY GT 11/21/19 18:00 12/21/19 17:59 11/30/19 09:35 Bisacodyl (Dulcolax) 10 mg DAILY PRN RECTAL Constipation 11/21/19 12:00 02/19/20 11:59 Dextrose (Dextrose 50%) 25 ml Q30M PRN IV Hypoglycemia 11/21/19 12:00 02/19/20 11:59 Dextrose (Dextrose 50%) 50 ml Q30M PRN IV Hypoglycemia 11/21/19 12:00 02/19/20 11:59 Docusate Sodium (Colace) 100 mg TWICE A DAY ORAL 11/21/19 18:00 12/21/19 17:59 11/30/19 09:35 Enoxaparin Sodium (Lovenox) 40 mg Q24H SUBQ 11/21/19 13:00 02/19/20 12:59 11/29/19 12:15 Famotidine (Pepcid) 20 mg BEDTIME ORAL 11/21/19 21:00 02/19/20 20:59 11/29/19 20:26 Finasteride (Proscar) 5 mg DAILY ORAL 11/22/19 09:00 02/20/20 08:59 11/30/19 09:00 Insulin Aspart (NovoLOG) BEFORE MEALS AND HS SUBQ 11/21/19 16:30 02/19/20 16:29 11/23/19 11:45 Insulin Detemir (Levemir) 6 units BEDTIME SUBQ 11/21/19 21:00 02/19/20 20:59 Levetiracetam (Keppra) 2,000 mg BID GT 11/21/19 18:00 12/21/19 17:59 11/30/19 09:35 Magnesium Hydroxide (Mom) 30 ml BEDTIME GT 11/21/19 21:00 12/21/19 20:59 11/29/19 20:26 Memantine (Namenda) 5 mg DAILY GT 11/26/19 09:00 12/26/19 08:59 11/30/19 09:35 Ondansetron HCl (Zofran) 4 mg Q6H PRN GT Nausea & Vomiting 11/21/19 12:00 12/21/19 11:59 Pantoprazole (Protonix) 40 mg DAILY IV 11/21/19 12:00 12/21/19 11:59 11/30/19 09:34 Polyethylene Glycol (Miralax) 17 gm DAILY PRN GT Constipation 11/21/19 12:00 12/21/19 11:59 Risperidone (RisperDAL) 1 mg DAILY GT 11/22/19 09:00 01/06/20 08:59 11/30/19 09:35 Zinc Sulfate (Zinc Sulfate) 220 mg DAILY ORAL 11/22/19 09:00 02/20/20 08:59 11/30/19 09:35 Last 24 Hour Vital Signs Date Time Temp Pulse Resp B/P (MAP) Pulse Ox O2 Delivery O2 Flow Rate FiO2 11/30/19 09:00 Room Air 11/30/19 08:00 97.8 77 17 96/58 (71) 95 11/30/19 00:00 97.6 73 16 93/56 (68) 94 11/29/19 21:00 Room Air 11/29/19 20:02 89 20 96 Room Air 21 11/29/19 20:00 97.9 89 20 101/62 (75) 96 11/29/19 16:00 98.3 82 20 96/58 (71) 98 11/29/19 09:00 Room Air 11/29/19 04:00 97.2 95 20 104/75 (85) 99 11/29/19 00:00 96.8 89 20 100/68 (79) 95 11/28/19 21:00 Room Air 11/28/19 20:00 90 18 93 Room Air 21 11/28/19 20:00 96.8 98 20 94/69 (77) 93 11/28/19 16:00 98.8 82 19 109/76 (87) 97 11/28/19 12:00 97.5 115 19 112/70 (84) 96 Intake and Output 11/29/19 11/30/19 19:00 07:00 Intake Total 240 ml Output Total 350 ml Balance -110 ml Intake Oral 240 ml Output Urine Total 350 ml # Voids 2 # Bowel Movements 1 Labs Test 11/28/19 06:00 11/29/19 04:00 11/30/19 04:00 White Blood Count 3.3 K/UL (4.8-10.8) 5.0 K/UL (4.8-10.8) 4.6 K/UL (4.8-10.8) Red Blood Count 6.13 M/UL (4.70-6.10) 5.95 M/UL (4.70-6.10) 6.17 M/UL (4.70-6.10) Hemoglobin 13.0 G/DL (14.2-18.0) 13.0 G/DL (14.2-18.0) 13.4 G/DL (14.2-18.0) Hematocrit 41.0 % (42.0-52.0) 40.1 % (42.0-52.0) 41.5 % (42.0-52.0) Mean Corpuscular Volume 67 FL (80-99) 67 FL (80-99) 67 FL (80-99) Mean Corpuscular Hemoglobin 21.2 PG (27.0-31.0) 21.8 PG (27.0-31.0) 21.7 PG (27.0-31.0) Mean Corpuscular Hemoglobin Concent 31.7 G/DL (32.0-36.0) 32.4 G/DL (32.0-36.0) 32.3 G/DL (32.0-36.0) Red Cell Distribution Width 12.4 % (11.6-14.8) 12.6 % (11.6-14.8) 12.7 % (11.6-14.8) Platelet Count 280 K/UL (150-450) 324 K/UL (150-450) 368 K/UL (150-450) Mean Platelet Volume 7.4 FL (6.5-10.1) 6.6 FL (6.5-10.1) 7.6 FL (6.5-10.1) Neutrophils (%) (Auto) % (45.0-75.0) 42.7 % (45.0-75.0) 53.4 % (45.0-75.0) Lymphocytes (%) (Auto) % (20.0-45.0) 44.0 % (20.0-45.0) 34.2 % (20.0-45.0) Monocytes (%) (Auto) % (1.0-10.0) 9.5 % (1.0-10.0) 8.4 % (1.0-10.0) Eosinophils (%) (Auto) % (0.0-3.0) 2.9 % (0.0-3.0) 2.8 % (0.0-3.0) Basophils (%) (Auto) % (0.0-2.0) 0.9 % (0.0-2.0) 1.2 % (0.0-2.0) Differential Total Cells Counted 100 Neutrophils % (Manual) 45 % (45-75) Lymphocytes % (Manual) 46 % (20-45) Monocytes % (Manual) 7 % (1-10) Eosinophils % (Manual) 2 % (0-3) Basophils % (Manual) 0 % (0-2) Band Neutrophils 0 % (0-8) Platelet Estimate Adequate Platelet Morphology Normal Red Blood Cell Morphology Normal Sodium Level 141 MMOL/L (136-145) 140 MMOL/L (136-145) 139 MMOL/L (136-145) Potassium Level 4.2 MMOL/L (3.5-5.1) 4.2 MMOL/L (3.5-5.1) 4.2 MMOL/L (3.5-5.1) Chloride Level 109 MMOL/L (98-107) 105 MMOL/L (98-107) 106 MMOL/L (98-107) Carbon Dioxide Level 25 MMOL/L (21-32) 23 MMOL/L (21-32) 27 MMOL/L (21-32) Anion Gap 7 mmol/L (5-15) 12 mmol/L (5-15) 6 mmol/L (5-15) Blood Urea Nitrogen 12 mg/dL (7-18) 16 mg/dL (7-18) 17 mg/dL (7-18) Creatinine 0.7 MG/DL (0.55-1.30) 1.0 MG/DL (0.55-1.30) 0.9 MG/DL (0.55-1.30) Estimat Glomerular Filtration Rate > 60 mL/min (>60) > 60 mL/min (>60) > 60 mL/min (>60) Glucose Level 105 MG/DL (74-106) 89 MG/DL (74-106) 101 MG/DL (74-106) Calcium Level 8.9 MG/DL (8.5-10.1) 8.8 MG/DL (8.5-10.1) 9.2 MG/DL (8.5-10.1) Ferritin 279 NG/ML (8-388) C-Reactive Protein, Quantitative 1.1 mg/dL (0.00-0.90) Height (Feet): 5 Height (Inches): 10.00 Weight (Pounds): 160 Objective Physical Exam Vitals: reviewed, normal, nonverbal Gen: no apparent distress, GCS 15, non-toxic, other - nonverbal Heent; nc, at, eomi Resp: chest non-tender, lungs clear, normal breath sounds, speaking full sentences CV: rrr, no mgr Gi: normal bs Neuro: nonverbal Lymphatic: no adenopathy Afshin Curry MD November 30, 2019 11:06
--- NOTE | 2019-11-30 11:57 | Pulmonology Progress Note ---
Assessment/Plan Assessment/Plan IMPRESSION: 1. COVID 19 pneumonia. 2. Psych disorder. 3. Diabetes mellitus. 4. Hypertension. 5. Parkinson's. 6. Bacteremia; likely contaminant DISCUSSION: Continue home medications. Continue to provide oxygen and pulmonary hygiene. The patient is saturating well on RA Is positive COVID-19. Broad-spectrum antibiotics per ID. I will follow carefully. Abdifatah Carmichael M.D. Subjective Interval Events: None new Constitutional: Reports: no symptoms HEENT: Repors: no symptoms Respiratory: Reports: no symptoms Cardiovascular: Reports: no symptoms Gastrointestinal/Abdominal: Reports: no symptoms Genitourinary: Reports: no symptoms Allergies: Coded Allergies: NO KNOWN DRUG ALLERGIES (Unverified Allergy, Unknown, 07/16/19) All Systems: reviewed and negative except above Objective Last 24 Hour Vital Signs Date Time Temp Pulse Resp B/P (MAP) Pulse Ox O2 Delivery O2 Flow Rate FiO2 11/30/19 09:00 Room Air 11/30/19 08:00 97.8 77 17 96/58 (71) 95 11/30/19 00:00 97.6 73 16 93/56 (68) 94 11/29/19 21:00 Room Air 11/29/19 20:02 89 20 96 Room Air 21 11/29/19 20:00 97.9 89 20 101/62 (75) 96 11/29/19 16:00 98.3 82 20 96/58 (71) 98 Intake and Output 11/29/19 11/30/19 19:00 07:00 Intake Total 240 ml Output Total 350 ml Balance -110 ml Intake Oral 240 ml Output Urine Total 350 ml # Voids 2 # Bowel Movements 1 General Appearance: no acute distress HEENT: normocephalic Respiratory/Chest: chest wall non-tender, lungs clear Cardiovascular: normal peripheral pulses Abdomen: normal bowel sounds Laboratory Tests 11/30/19 04:00: White Blood Count 4.6L, Red Blood Count 6.17H, Hemoglobin 13.4L, Hematocrit 41.5L, Mean Corpuscular Volume 67L, Mean Corpuscular Hemoglobin 21.7L, Mean Corpuscular Hemoglobin Concent 32.3, Red Cell Distribution Width 12.7, Platelet Count 368, Mean Platelet Volume 7.6, Neutrophils (%) (Auto) 53.4, Lymphocytes (% ) (Auto) 34.2, Monocytes (%) (Auto) 8.4, Eosinophils (%) (Auto) 2.8, Basophils ( %) (Auto) 1.2, Sodium Level 139, Potassium Level 4.2, Chloride Level 106, Carbon Dioxide Level 27, Anion Gap 6, Blood Urea Nitrogen 17, Creatinine 0.9, Estimat Glomerular Filtration Rate > 60, Glucose Level 101, Calcium Level 9.2, Ferritin 279, C-Reactive Protein, Quantitative 1.1H Current Medications Medications (Trade) Dose Ordered Sig/Monalisa Route PRN Reason Start Time Stop Time Status Last Admin Dose Admin Acetaminophen (Tylenol) 650 mg Q4H PRN GT Mild Pain (Pain Scale 1-3) 11/21/19 11:30 12/21/19 11:29 Acetaminophen (Tylenol) 650 mg Q4H PRN ORAL FEVER, HEADACHE, MILD PAIN 11/21/19 12:00 12/21/19 11:59 Acetaminophen (Tylenol) 650 mg Q4H PRN RECTAL Temp >100.5 11/21/19 11:15 12/21/19 11:14 Al Hydroxide/Mg Hydroxide (Mylanta) 30 ml Q6HR GT 11/21/19 13:15 12/21/19 13:14 11/30/19 06:03 Ascorbic Acid (Vitamin C) 500 mg TWICE A DAY GT 11/21/19 18:00 12/21/19 17:59 11/30/19 09:35 Bisacodyl (Dulcolax) 10 mg DAILY PRN RECTAL Constipation 11/21/19 12:00 02/19/20 11:59 Dextrose (Dextrose 50%) 25 ml Q30M PRN IV Hypoglycemia 11/21/19 12:00 02/19/20 11:59 Dextrose (Dextrose 50%) 50 ml Q30M PRN IV Hypoglycemia 11/21/19 12:00 02/19/20 11:59 Docusate Sodium (Colace) 100 mg TWICE A DAY ORAL 11/21/19 18:00 12/21/19 17:59 11/30/19 09:35 Enoxaparin Sodium (Lovenox) 40 mg Q24H SUBQ 11/21/19 13:00 02/19/20 12:59 11/29/19 12:15 Famotidine (Pepcid) 20 mg BEDTIME ORAL 11/21/19 21:00 02/19/20 20:59 11/29/19 20:26 Finasteride (Proscar) 5 mg DAILY ORAL 11/22/19 09:00 02/20/20 08:59 11/30/19 09:00 Insulin Aspart (NovoLOG) BEFORE MEALS AND HS SUBQ 11/21/19 16:30 02/19/20 16:29 11/23/19 11:45 Insulin Detemir (Levemir) 6 units BEDTIME SUBQ 11/21/19 21:00 02/19/20 20:59 Levetiracetam (Keppra) 2,000 mg BID GT 11/21/19 18:00 12/21/19 17:59 11/30/19 09:35 Magnesium Hydroxide (Mom) 30 ml BEDTIME GT 11/21/19 21:00 12/21/19 20:59 11/29/19 20:26 Memantine (Namenda) 5 mg DAILY GT 11/26/19 09:00 12/26/19 08:59 11/30/19 09:35 Ondansetron HCl (Zofran) 4 mg Q6H PRN GT Nausea & Vomiting 11/21/19 12:00 12/21/19 11:59 Pantoprazole (Protonix) 40 mg DAILY IV 11/21/19 12:00 12/21/19 11:59 11/30/19 09:34 Polyethylene Glycol (Miralax) 17 gm DAILY PRN GT Constipation 11/21/19 12:00 12/21/19 11:59 Risperidone (RisperDAL) 1 mg DAILY GT 11/22/19 09:00 01/06/20 08:59 11/30/19 09:35 Zinc Sulfate (Zinc Sulfate) 220 mg DAILY ORAL 11/22/19 09:00 02/20/20 08:59 11/30/19 09:35 Abdifatah Carmichael MD November 30, 2019 11:57
[2019-11-30 12:00] VITALS: BP 99/67
[2019-11-30] MEDS: Enoxaparin 40mg Inj SUBQ SCH (12:31)
--- NOTE | 2019-11-30 13:24 | NUR ---
CASE MANAGEMENT: REVIEW 11/30/19 SI:COVID-19 (+) . PNA . UTI . MRSA(+) . PSYCH DISORDER 97.7 90 16 99/67 96% ON RA WBC 4.6 RBC 6.17 IS:IV VANCOMYCIN Q8HR KEPPRA GT QD IV PROTONIX QD PROSCAR PO QD RISPERDAL GT QD LOVENOX SQ QD ZINC SULFATE PO QD NAMENDA GT QD CHEST X-RAY- NO ACUTE PROCESS \:4E MED SURG UNIT DCP: LEXII MURO WHEN STABLE PLAN: DC PLANNING
--- NOTE | 2019-11-30 13:47 | Cardiac Electrophysiology PN ---
Assessment/Plan Assessment/Plan 1. Hypotension, likely dehydrated especially in view of sepsis. Resolved after IV fluids 2. Hypertension. Off metoprolol. 3. COVID-[address] Carmichael 4. Psych disorder. 5. Diabetes. 6. Parkinson's. DIXON RN OK to DC from cardiac stand point Subjective Subjective Comfortable in NAD. In Covid isolation. No events off oxygen Objective Last 24 Hour Vital Signs Date Time Temp Pulse Resp B/P (MAP) Pulse Ox O2 Delivery O2 Flow Rate FiO2 11/30/19 12:00 97.7 90 16 99/67 (78) 96 11/30/19 09:00 Room Air 11/30/19 08:00 97.8 77 17 96/58 (71) 95 11/30/19 00:00 97.6 73 16 93/56 (68) 94 11/29/19 21:00 Room Air 11/29/19 20:02 89 20 96 Room Air 21 11/29/19 20:00 97.9 89 20 101/62 (75) 96 11/29/19 16:00 98.3 82 20 96/58 (71) 98 Intake and Output 11/29/19 11/30/19 19:00 07:00 Intake Total 240 ml Output Total 350 ml Balance -110 ml Intake Oral 240 ml Output Urine Total 350 ml # Voids 2 # Bowel Movements 1 Laboratory Tests Test 11/30/19 04:00 White Blood Count 4.6 K/UL (4.8-10.8) L Red Blood Count 6.17 M/UL (4.70-6.10) H Hemoglobin 13.4 G/DL (14.2-18.0) L Hematocrit 41.5 % (42.0-52.0) L Mean Corpuscular Volume 67 FL (80-99) L Mean Corpuscular Hemoglobin 21.7 PG (27.0-31.0) L Mean Corpuscular Hemoglobin Concent 32.3 G/DL (32.0-36.0) Red Cell Distribution Width 12.7 % (11.6-14.8) Platelet Count 368 K/UL (150-450) Mean Platelet Volume 7.6 FL (6.5-10.1) Neutrophils (%) (Auto) 53.4 % (45.0-75.0) Lymphocytes (%) (Auto) 34.2 % (20.0-45.0) Monocytes (%) (Auto) 8.4 % (1.0-10.0) Eosinophils (%) (Auto) 2.8 % (0.0-3.0) Basophils (%) (Auto) 1.2 % (0.0-2.0) Sodium Level 139 MMOL/L (136-145) Potassium Level 4.2 MMOL/L (3.5-5.1) Chloride Level 106 MMOL/L (98-107) Carbon Dioxide Level 27 MMOL/L (21-32) Anion Gap 6 mmol/L (5-15) Blood Urea Nitrogen 17 mg/dL (7-18) Creatinine 0.9 MG/DL (0.55-1.30) Estimat Glomerular Filtration Rate > 60 mL/min (>60) Glucose Level 101 MG/DL (74-106) Calcium Level 9.2 MG/DL (8.5-10.1) Ferritin 279 NG/ML (8-388) C-Reactive Protein, Quantitative 1.1 mg/dL (0.00-0.90) H Objective HEAD AND NECK: No JVD. LUNGS: Clear. CARDIOVASCULAR: Regular S1 and S2 with no gallop. ABDOMEN: Soft. EXTREMITIES: No pitting edema. Sage Araujo MD November 30, 2019 13:47
--- NOTE | 2019-11-30 14:10 | Infectious Diseases Prog Note ---
Assessment/Plan Assessment/Plan Assessment: Pnuemonia- currently at [facility]- 2ry to COVID19 (resident at [facility] w/ multiple confirmed cases) -11/29 CXR: no acute disease -11/24 CXR: No significant interval change compared to exam of 11/20/2019. No new focal airspace consolidation. -CXR: Patchy areas of mild increased hazy opacity of suspected in the right lung. This appears most prominent at the right apex. An acute infectious/ inflammatory process should be considered. There is question of a vertebral body compression fracture of the lower thoracic spine. Gram positive bacteremia- contaminant -11/19 Bcx 08/01 S. saprophyticus, 09/01 S.epi; 11/20 Bcx Neg Probable UTI -u/a wbc 5-10, nit neg, leuk +1; ucx Neg Afebrile (reported Fever RN FLOAT) Leukopenia/pancytopenia -thrombocytopenia resolved Dm2 HTN seizure disorder dysphagia s/p GT decubitus ulcer FTT cerebral palsy COPD CVA/TIA paranoid schizophrenia non verbal SNF resident ([facility] Good) Plan: -COnt to monitor off abx -ok to dc back to SNF- per DPH need to continue COVID isolation for 4 more days at SNF (to complete 14 days from day of admission; has been afebrile >72hrs ) -11/24 SP IV Vancomycin #5 -11/23 SP Ceftriaxone #2 -11/22 SP Meropenem #3 -11/19 SP CEftriaxone x1, Azithromycin x1 -f/u cx -Monitor CBC/CMP, temperatures -f/u repeat Bcx x2 -COVID 19 isolation -PEG care -aspiration precautions -CXR am Thank you for consulting [facility]. Will continue to follow along with you. Discussed with RN. Subjective Allergies: Coded Allergies: NO KNOWN DRUG ALLERGIES (Unverified Allergy, Unknown, 07/16/19) Subjective afebrile at RA repeat bx Neg Objective Vital Signs Last 24 Hour Vital Signs Date Time Temp Pulse Resp B/P (MAP) Pulse Ox O2 Delivery O2 Flow Rate FiO2 11/30/19 12:00 97.7 90 16 99/67 (78) 96 11/30/19 09:00 Room Air 11/30/19 08:00 97.8 77 17 96/58 (71) 95 11/30/19 00:00 97.6 73 16 93/56 (68) 94 11/29/19 21:00 Room Air 11/29/19 20:02 89 20 96 Room Air 21 11/29/19 20:00 97.9 89 20 101/62 (75) 96 11/29/19 16:00 98.3 82 20 96/58 (71) 98 Height (Feet): 5 Height (Inches): 10.00 Weight (Pounds): 160 Objective not examined to limit COVID19 exposure Laboratory Tests Test 11/30/19 04:00 White Blood Count 4.6 K/UL (4.8-10.8) L Red Blood Count 6.17 M/UL (4.70-6.10) H Hemoglobin 13.4 G/DL (14.2-18.0) L Hematocrit 41.5 % (42.0-52.0) L Mean Corpuscular Volume 67 FL (80-99) L Mean Corpuscular Hemoglobin 21.7 PG (27.0-31.0) L Mean Corpuscular Hemoglobin Concent 32.3 G/DL (32.0-36.0) Red Cell Distribution Width 12.7 % (11.6-14.8) Platelet Count 368 K/UL (150-450) Mean Platelet Volume 7.6 FL (6.5-10.1) Neutrophils (%) (Auto) 53.4 % (45.0-75.0) Lymphocytes (%) (Auto) 34.2 % (20.0-45.0) Monocytes (%) (Auto) 8.4 % (1.0-10.0) Eosinophils (%) (Auto) 2.8 % (0.0-3.0) Basophils (%) (Auto) 1.2 % (0.0-2.0) Sodium Level 139 MMOL/L (136-145) Potassium Level 4.2 MMOL/L (3.5-5.1) Chloride Level 106 MMOL/L (98-107) Carbon Dioxide Level 27 MMOL/L (21-32) Anion Gap 6 mmol/L (5-15) Blood Urea Nitrogen 17 mg/dL (7-18) Creatinine 0.9 MG/DL (0.55-1.30) Estimat Glomerular Filtration Rate > 60 mL/min (>60) Glucose Level 101 MG/DL (74-106) Calcium Level 9.2 MG/DL (8.5-10.1) Ferritin 279 NG/ML (8-388) C-Reactive Protein, Quantitative 1.1 mg/dL (0.00-0.90) H Current Medications Medications (Trade) Dose Ordered Sig/Monalisa Route PRN Reason Start Time Stop Time Status Last Admin Dose Admin Acetaminophen (Tylenol) 650 mg Q4H PRN GT Mild Pain (Pain Scale 1-3) 11/21/19 11:30 12/21/19 11:29 Acetaminophen (Tylenol) 650 mg Q4H PRN ORAL FEVER, HEADACHE, MILD PAIN 11/21/19 12:00 12/21/19 11:59 Acetaminophen (Tylenol) 650 mg Q4H PRN RECTAL Temp >100.5 11/21/19 11:15 12/21/19 11:14 Al Hydroxide/Mg Hydroxide (Mylanta) 30 ml Q6HR GT 11/21/19 13:15 12/21/19 13:14 11/30/19 12:30 Ascorbic Acid (Vitamin C) 500 mg TWICE A DAY GT 11/21/19 18:00 12/21/19 17:59 11/30/19 09:35 Bisacodyl (Dulcolax) 10 mg DAILY PRN RECTAL Constipation 11/21/19 12:00 02/19/20 11:59 Dextrose (Dextrose 50%) 25 ml Q30M PRN IV Hypoglycemia 11/21/19 12:00 02/19/20 11:59 Dextrose (Dextrose 50%) 50 ml Q30M PRN IV Hypoglycemia 11/21/19 12:00 02/19/20 11:59 Docusate Sodium (Colace) 100 mg TWICE A DAY ORAL 11/21/19 18:00 12/21/19 17:59 11/30/19 09:35 Enoxaparin Sodium (Lovenox) 40 mg Q24H SUBQ 11/21/19 13:00 02/19/20 12:59 11/30/19 12:31 Famotidine (Pepcid) 20 mg BEDTIME ORAL 11/21/19 21:00 02/19/20 20:59 11/29/19 20:26 Finasteride (Proscar) 5 mg DAILY ORAL 11/22/19 09:00 02/20/20 08:59 11/30/19 09:00 Insulin Aspart (NovoLOG) BEFORE MEALS AND HS SUBQ 11/21/19 16:30 02/19/20 16:29 11/23/19 11:45 Insulin Detemir (Levemir) 6 units BEDTIME SUBQ 11/21/19 21:00 02/19/20 20:59 Levetiracetam (Keppra) 2,000 mg BID GT 11/21/19 18:00 12/21/19 17:59 11/30/19 09:35 Magnesium Hydroxide (Mom) 30 ml BEDTIME GT 11/21/19 21:00 12/21/19 20:59 11/29/19 20:26 Memantine (Namenda) 5 mg DAILY GT 11/26/19 09:00 12/26/19 08:59 11/30/19 09:35 Ondansetron HCl (Zofran) 4 mg Q6H PRN GT Nausea & Vomiting 11/21/19 12:00 12/21/19 11:59 Pantoprazole (Protonix) 40 mg DAILY IV 11/21/19 12:00 12/21/19 11:59 11/30/19 09:34 Polyethylene Glycol (Miralax) 17 gm DAILY PRN GT Constipation 11/21/19 12:00 12/21/19 11:59 Risperidone (RisperDAL) 1 mg DAILY GT 11/22/19 09:00 01/06/20 08:59 11/30/19 09:35 Zinc Sulfate (Zinc Sulfate) 220 mg DAILY ORAL 11/22/19 09:00 02/20/20 08:59 11/30/19 09:35 Dilma Chand M.D. November 30, 2019 14:10
--- NOTE | 2019-11-30 14:48 | NUR ---
NOTES: SWALLOW STATUS: PER PRIMARY ST, Demetri NOVEMBER, SHE WAS UNABLE TO GET THE SNF INFORMATION REGARDING THE PRIOR DIET/TF ON SATURDAY (HELD ON PHONE FOR A VERY LONG TIME). PER SNF NOTES, PT ONLY RECEIVING GT FEEDINGS OF GLUCERNA 1.2 @ 60 CC. PER [facility] NOTES IN 01/2018 PT DX WITH PNA BUT CXR CLEAR. PATIENT IS SEEN FOR DYSPHAGIA, SEE SWALLOW EVAL REPORT ON 11/27/19. PER SNF, THE PATIENT IS ONLY GETTING PEG FEEDINGS (NO PO). PER NOTES FROM SNF, THE PATIENT WAS SEEN BY FOR PO TRIALS AND DYSPHAGIA MANAGEMENT AND TX. SINCE THE PATIENT WAS ADMITTED AND HAS A PNA DX (VIRAL BUT HAS RISK OF ASPIRATION-RELATED PNA) AND HAS A SILENT ASPIRATION RISK DUE TO PD, CVA, CP AND RESP-SWALLOW COORDINATION ASP RISK (HAZY OPACITY R LUNG THOUGH NO NEW INFILTRATES ON MOST RECENT CXR), WILL HOLD ON PO INTAKE UNTIL HE IS CLEARED OF COVID 19 (POSITIVE NOW). WILL HOLD ON PO TRIALS FOR NOW GIVEN HIGH RISK FOR SILENT ASPIRATION. PATIENT SHOULD BE NPO AND BEGIN PEG TUBE FEEDINGS (PER RD ON 11/25/19 NOTE NEEDS GLUCERNA 1.2 @65 ML/HR X 24 HOURS. INTAKE ON FULL LIQUID THIN LIQUIDS DIET POOR (REFUSED OR ONLY 25% PER RD AND DISPATCH MANAGER NOTES). CONTINUE WITH ORAL CARE FOR NOW. EDUCATED/TRAINED RN (DANY) IN POSTED ORAL CARE AND ASPIRATION PRECAUTIONS WHEN PEG FEEDINGS ARE RUNNING. PLAN: HOLD PO AND MAKE NPO INITIATE TUBE FEEDINGS PER RD NOTE ON 11/25/19 IN CARE ACTIVITY SECTION. CONTINUE WITH ORAL CARE MOD BARIUM SWALLOW STUDY IP OR OP IF D/C TO FURTHER ASSESS SWALLOW, DETERMINE SILENT ASP RISK AND ATTEMPT TRIAL TX TECHNIQUES. Addendum: 11/30/19 at 1502 by SOLA [employer] OPERATOR date correction and updates: PATIENT SHOULD BE NPO AND BEGIN PEG TUBE FEEDINGS (PER RD NOTE 10/09/19 NEEDS GLUCERNA 1.2 @65 ML/HR X 24 HOURS. Enteral Nutrition Comment * Advance as able by 5ml to goal of 65ml/hr x24 hrs. * HOB>30 degrees * Water flush of 120ml q 4 hrs Addendum: 11/30/19 at 1505 by SOLA [employer] OPERATOR ST COULD NOT LOCATE TF REC FROM RD FROM MOST RECENT REPORT (SINCE PT WAS PLACED ON ORAL DIET)
--- NOTE | 2019-11-30 15:44 | NUR ---
DISCHARGE PLANNING: PATIENT ACCEPTED BACK TO: [facility] SKILLED (ON ISOLATION X4DAYS) [facility] CALLED FOR 6PM PICKUP TIME DINORAH (SISTER) MADE AWARE OF TRANSFER BACK TO FACILITY
[2019-11-30 16:00] VITALS: BP 97/62
--- NOTE | 2019-11-30 16:00 | NUR ---
DISCHARGE PLANNING: PATIENT ACCEPTED BACK TO: [facility] T:[phone]~~ FOR NURSE TO NURSE REPORT ROOM#11A SKILLED (ON ISOLATION X4DAYS) [facility] CALLED FOR 6PM PICKUP TIME DINORAH (SISTER) MADE AWARE OF TRANSFER BACK TO FACILITY
--- NOTE | 2019-11-30 17:15 | Progress Note ---
DATE: 11/30/2019 SUBJECTIVE: This is a 64-year-old male patient. He continues to have some confusion, some disorganized thought process, decline in cognition below his baseline. He has fever, cough. He also has , lactic acidosis, dehydration, pressure ulcers, sinus tachycardia, diabetes, history of urinary tract infection, and multiple other medical problems. altered mental status and psychomotor agitation that is why his attending has requested daily psychiatric consultation. MENTAL STATUS EXAMINATION: This is a 64-year-old male. Appearance is disheveled. Attitude, irritable and agitated. Affect, guarded and restricted. Intellect poor. Mood, depressed and anxious. Motor activity, psychomotor agitation. Insight and judgment is poor. DIAGNOSIS: Major depressive disorder, mild, recurrent with psychotic features. PLAN: Ativan 1 every 6 hours p.r.n. anxiety and agitation, Risperdal 1 mg per G-tube daily, Namenda 5 mg per G-tube twice a day. Twenty minutes of insight-oriented psychotherapy to help him recognize his cognitive and physical condition so that he have better understanding and impulse control on the unit. Twenty minutes of insight-oriented psychotherapy. Chart reviewed and discussed with staff. Seen and assessed at bedside. Enrrique Escudero M.D. DR: Divya JOB#: [id number] CC:
--- NOTE | 2019-11-30 19:17 | NUR ---
NURSE NOTES: Patient being discharged to [facility] [place] [facility], AxOx1, non-verbal, not in distress, tolerating room air, vitals stable. Redness on sacrum but no open wounds or pressure injuries. GT is patent and intact. Report given to Courtney SORENSEN from [facility] [place]. Paperwork and discharge medications done and endorsed to incoming nurse. Awaiting ambulance transport.
--- NOTE | 2019-11-30 19:19 | NUR ---
HAND-OFF: Report given to Mary SORENSEN.
--- NOTE | 2019-11-30 19:37 | NUR ---
NURSE NOTES: Received pt from [facility]. Pt awake, nonverbal responsive, on room air. IV site and Gtube intact. HOB elevated. Isolation maintained. Bed locked, lowest position, call light within reach, side rails up, alarm on. Will continue to monitor.
--- NOTE | 2019-11-30 20:20 | NUR ---
NURSE NOTES: Pt discharged to [facility]. [facility] picked up the pt with stable condition. No belongings noted. ID band and IV removed. Packet sent with the pt.
--- NOTE | 2019-12-01 12:44 | Discharge Summary ---
Discharge Summary Discharge Summary _ DATE OF ADMISSION: 11/20/2019 DATE OF DISCHARGE: 11/30/2019 DISCHARGED BY: Dr Johnson REASON FOR ADMISSION: 64 years old male with past medical history of diabetes mellitus, pretension, COPD, CVA/TIA, paranoid schizophrenia,, resented for evaluation due to cough and fever. For 1 day. In triage patient was afebrile no cough. Patient nonverbal unable to provide any history. No signs of respiratory distress on arrival. Upon evaluation vital signs are stable. Chest x-ray demonstrated patchy areas of mild increased hazy opacity in the right. Most prominent at the right aspect. Laboratory work-up revealed leukopenia WBC 2.6, hemoglobin 15.3 hematocrit 50.6. Platelet count 118. Lactic acid 1.7. Stable electrolytes and renal parameters. Glucose 107. Stable LFT. Albumin 3.6. EKG revealed sinus rhythm no acute ischemic changes. Patient admitted for pneumonia patient was swab for COVID-19 emergency department patient received IV fluids pancultured started on empiric antibiotics. COVID swab was sent. Patient subsequently admitted for further management. CONSULTANTS: biomedical equipment tech Dr. Santos pulmonary Dr. Carmichael ID specialist Dr. Chand watermaster/oncologist Dr. Curry psychiatrist Dr. Escudero [facility]: Patient admitted and started on empiric antibiotics. Patient initially was kept in isolation. SARS-CoV-2 by PCR on was detected. Isolation continued. Blood culture revealed Staph epidermidis. Urinalysis revealed pyuria , + leukocyte esterase. Urine culture was negative. Patient probably had UTI as per ID specialist. Repeated blood culture on 11/21 were negative. Per ID specialist, initial gram-positive bacteremia was most likely contaminant. Patient was on antibiotics, completed while in the hospital. Strict aspiration precaution maintained. Tube feeding continued. Supplemental oxygen provided and titrated to keep oximetry above 92%. Pulmonary hygiene provided . DVT prophylaxis provided Pulse oximetry remained stable on room air. Patient was followed-up with chest x-ra. Last chest x-ray demonstrated no acute process. Echocardiogram demonstrated preserved ejection fraction of 65% with no evidence of pericardial effusion. No evidence of wall motion abnormality. Right ventricular systolic pressure of 13. Patient showed hypotension most likely due to dehydration , especially in view of recent infection. Hypotension resolved with IV fluid. Interface Control Officer followed. Pancytopenia was likely due to underlying infection/COVID-19 related. Hepatitis panel was negative . HIV status was nonreactive. Recent CT scan of abdomen was negative. Counts were closely monitored . WBC up to 4.6 from initial 2.6. Platelet count normal 368. Per psychiatrist patient had major depressive disorder, mild, recurrent with psychotic features. Psychiatric medication regimen was optimized. P Supportive care provided. Patient completed antibiotic while in the hospital. Per ID specialist okay to discharge back to nursing facility . Patient need to continue isolation for 4 more days to complete 14 days from date of admission . He had been afebrile for over 72 hours. Patient subsequently was discharged to the long term facility for continuation of care. . FINAL DIAGNOSES: Confirmed COVID-19 pneumonia Probable UTI Hypotension -resolved History of hypertension Pancytopenia Diabetes mellitus Parkinson disease Major depressive disorder, mild, recurrent with psychotic features DISCHARGE MEDICATIONS: See Medication Reconciliation list. DISCHARGE INSTRUCTIONS: Patient was discharged to the long term facility. Follow up with medical doctor at the facility. I have been assigned to dictate discharge summary for this account. I was not involved in the patient's management. Lia Desir NP December 01, 2019 12:44
== END 2019-11-30 20:20 | DRG 177 ==
LOC: EDBD 19:31 → EMR 19:54 → EDBEDREQ 20:04 → 4E 20:10 → EDBEDREQ 11-21 09:12 → 4E 11-21 10:26
DX: U07.1 COVID-19 (principal); J12.89 Other viral pneumonia; N39.0 Urinary tract infection, site not specified; N17.9 Acute kidney failure, unspecified; D61.818 Other pancytopenia; F33.0 Major depressive disorder, recurrent, mild; F20.0 Paranoid schizophrenia; Z43.1 Encounter for attention to gastrostomy; R62.7 Adult failure to thrive; Z68.21 Body mass index [BMI] 21.0-21.9, adult; G40.909 Epilepsy, unspecified, not intractable, without status epilepticus; E11.9 Type 2 diabetes mellitus without complications; G20 Parkinson's disease; Z79.4 Long term (current) use of insulin; G80.9 Cerebral palsy, unspecified; L89.90 Pressure ulcer of unspecified site, unspecified stage; E86.0 Dehydration
CPT/HCPCS: 36415; 71045; 80048; 80053; 80202; 81003; 82728; 82962; 83605; 85007; 85025; 85730; 86140; 87040; 87081; 87086; 87181; 87635; 92610; 93005; 93306; 94664; 96361; 96365; 96367; 97803; 99285; J1815; J7030; S5561

== ENCOUNTER 2019-12-21 03:53 | Inpatient (IN) | payer MEDICARE, MEDICAID ==
[~2019-12-21] VITALS: Ht 188 cm; Wt 72.6 kg
[2019-12-21] VITALS (11 sets, daily range): BP systolic 104–133; BP diastolic 19–89
--- NOTE | 2019-12-21 04:16 | Emergency Room Report ---
History of Present Illness General Chief Complaint: Altered Mental Status Source: Patient (Angel Luis Mcfarland MD) Present Illness HPI This is a 64-year-old man from [facility]. He has multiple medical problem. He presents with chief complaint of altered mental status. At baseline he is altered but more so today. Also with a fever. He was just discharged from this hospital about 3 weeks ago. He was admitted for COVID pneumonia and recovered. Unable get any history because of his condition. History is through [facility] note and EMS. He had a fever tonight and was sent here by 911. 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 COVID-19 Screening: Positive COVID-19 COVID-19 Testing Source: NASOPHARYNGEAL (Angel Luis Mcfarland MD) Patient History Past Medical History: see triage record, old chart reviewed Past Surgical History: other Pertinent Family History: none Social History: Denies: smoking Immunizations: other Reviewed Nursing Documentation: PMH: Agreed; PSxH: Agreed (Angel Luis Mcfarland MD) Nursing Documentation-PMH Past Medical History: No History, Except For Hx Cardiac Problems: Yes Hx Hypertension: Yes Hx Pacemaker: No Hx Asthma: No Hx COPD: Yes Hx Diabetes: Yes Hx Cancer: No Hx Gastrointestinal Problems: Yes Hx Dialysis: No - BPH Hx Neurological Problems: Yes Hx Cerebrovascular Accident: Yes Hx Parkinson's Disease: Yes Hx Seizures: Yes Hx Epilepsy: Yes Hx Cerebral Palsy: Yes Hx Speech Problem: Yes Hx Aphasia: Yes Hx Weakness: Yes (Angel Luis Mcfarland MD) Review of Systems Constitutional: Reports: fever, malaise Eye: Denies: eye pain, blurred vision ENT: Denies: ear pain, nose congestion, throat swelling Respiratory: Denies: cough, shortness of breath Cardiovascular: Denies: chest pain, palpitations Gastrointestinal: Denies: abdominal pain, diarrhea, nausea, vomiting Musculoskeletal: Denies: back pain, joint pain Skin: Denies: rash Neurological: Denies: headache, numbness Endocrine: Denies: increased thirst, increased urine Hematologic/Lymphatic: Denies: easy bruising All Other Systems: negative except mentioned in HPI (Angel Luis Mcfarland MD) Physical Exam Vital Signs Date Time Temp Pulse Resp B/P (MAP) Pulse Ox O2 Delivery O2 Flow Rate FiO2 12/21/19 03:56 100.0 106 20 127/72 (90) 94 Nasal Cannula 4.0 Vitals with fever Sp02 EP Interpretation: reviewed, normal General Appearance: Chronically Ill Head: normocephalic, atraumatic Eyes: bilateral eye PERRL, bilateral eye EOMI ENT: hearing grossly normal, normal pharynx, dry mucus membranes Neck: full range of motion, supple, no meningismus Respiratory: chest non-tender, lungs clear, normal breath sounds Cardiovascular #1: regular rate, rhythm, no murmur Gastrointestinal: normal bowel sounds, non tender, no mass, no organomegaly, no bruit, non-distended Musculoskeletal: back normal, other - Contracted Psychiatric: mood/affect normal (Angel Luis Mcfarland MD) Medical Decision Making Diagnostic Impression: Primary Impression: Sepsis Qualified Codes: A41.9 - Sepsis, unspecified organism Additional Impression: Acute metabolic encephalopathy ER Course This patient presents with sepsis with unknown source. Urinalysis still pending however. Chest x-ray is unremarkable. Patient was here a month ago and was positive for COVID. Patient is otherwise amiably stable. Will admit for further work-up and monitoring. I contacted Dr. Johnson for admission. (Angel Luis Mcfarland MD) ER Course Please see above note. Patient HR increased prior to admission. Review of labs and x-ray. Patient afebrile and glucose normal. Repeat EKG ordered. NS bolus ordered. EKG ST, no acute injury. Improved after bolus with decreased tachycardia. (Alex Renee MD) EKG Diagnostic Results Rate: normal Rhythm: NSR ST Segments: no acute changes (Angel Luis Mcfarland MD) Rate: tachycardiac Rhythm: NSR ST Segments: no acute changes (Alex Renee MD) Rhythm Strip Diag. Results EP Interpretation: yes Rate: 94 Rhythm: NSR, no PVC's, no ectopy (Angel Luis Mcfarland MD) EP Interpretation: yes Rhythm: no PVC's, no ectopy, other - ST (Alex Renee MD) Chest X-Ray Diagnostic Results Chest X-Ray Diagnostic Results : Chest X-Ray Ordered: Yes # of Views/Limited/Complete: 1 View Indication: Shortness of Breath EP Interpretation: Yes Interpretation: no consolidation, no effusion, no pneumothorax, no acute cardiopulmonary disease Impression: No acute disease Electronically Signed by: Angel Luis Mcfarland MD (Angel Luis Mcfarland MD) Last Vital Signs Date Time Temp Pulse Resp B/P (MAP) Pulse Ox O2 Delivery O2 Flow Rate FiO2 12/21/19 03:56 100.0 106 20 127/72 (90) 94 Nasal Cannula 4.0 Status: improved (Angel Luis Mcfarland MD) Disposition: ADMITTED INPATIENT Condition: Serious Angel Luis Mcfarland MD December 21, 2019 04:16 Alex Renee MD December 21, 2019 10:34
[2019-12-21 04:51] LABS: BASOPHILS % (AUTO) 0.5 % (0.0-2.0); EOSINOPHILS % (AUTO) 0.2 % (0.0-3.0); HEMATOCRIT 46.5 % (42.0-52.0); HEMOGLOBIN 14.9 G/DL (14.2-18.0); LYMPHOCYTES % (AUTO) 13.1 % (20.0-45.0); MEAN CORPUSCULAR VOLUME 67 FL (80-99); MONOCYTES % (AUTO) 11.1 % (1.0-10.0); NEUTROPHILS % (AUTO) 75.1 % (45.0-75.0); PLATELET COUNT 217 K/UL (150-450); RED BLOOD COUNT 6.91 M/UL (4.70-6.10); RED CELL DISTRIBUTION WIDTH 13.7 % (11.6-14.8); WHITE BLOOD COUNT 9.1 K/UL (4.8-10.8)
[2019-12-21 05:08] LABS: ANION GAP 12 mmol/L (5-15); BLOOD UREA NITROGEN 20 mg/dL (7-18); CALCIUM 9.6 MG/DL (8.5-10.1); CARBON DIOXIDE 26 MMOL/L (21-32); CHLORIDE 105 MMOL/L (98-107); CREATININE 0.9 MG/DL (0.55-1.30); POTASSIUM 4.3 MMOL/L (3.5-5.1); SODIUM 142 MMOL/L (136-145)
[2019-12-21 05:11] LABS: INR 0.9 (0.9-1.1)
[2019-12-21 05:26] LABS: ALANINE AMINOTRANSFERASE 22 U/L (12-78); ALBUMIN/GLOBULIN RATIO 0.9 (1.0-2.7); ALKALINE PHOSPHATASE 193 U/L (46-116); ASPARTATE AMINO TRANSFERASE 19 U/L (15-37); BILIRUBIN,TOTAL 0.4 MG/DL (0.2-1.0); CKMB 1.4 NG/ML (0.0-3.6); CREATINE KINASE 77 U/L (26-308); FERRITIN 190 NG/ML (8-388)
--- NOTE | 2019-12-21 05:37 | Diagnostic Imaging Report ---
EXAM: XR Chest, 1 View CLINICAL HISTORY: SOB TECHNIQUE: Frontal view of the chest. COMPARISON: Chest x-ray 11/30/2019. FINDINGS: There are low lung volumes with resultant bronchovascular crowding. No focal consolidation is identified. Mild interstitial pulmonary edema cannot be excluded. There is no large pleural effusion or pneumothorax. The heart size is within normal limits. Nonspecific prominent air-filled loops of bowel are identified. IMPRESSION: Low lung volume with resultant bronchovascular crowding. No focal consolidation. Mild interstitial pulmonary edema cannot be excluded. If there is persistent concern for acute intrathoracic pathology, chest CT can be performed. Nonspecific prominent air-filled loops of bowel of the partially visualized abdomen. Correlate with CT of the abdomen pelvis as clinically warranted.
[2019-12-21] MEDS ORDERED: Cefepime HCl 1 GM in D5W 55 ML IVPB ONE (05:45)
[2019-12-21 06:51] LABS: APPEARANCE,URINE CLEAR; BILIRUBIN, URINE NEGATIVE (NEGATIVE); GLUCOSE, URINE (UA) NEGATIVE (NEGATIVE); KETONES,URINE 2+ (NEGATIVE); LEUKOCYTE ESTERASE ,URINE 1+ (NEGATIVE); NITRITE,URINE NEGATIVE (NEGATIVE); PH,URINE 5 (4.5-8.0); PROTEIN,URINE 2+ (NEGATIVE); UROBILINOGEN,URINE NORMAL MG/DL (0.0-1.0)
[2019-12-21 07:11] LABS: COLOR,URINE YELLOW
[2019-12-21] MEDS ORDERED: Albuterol/Ipratropium 3ml neb HHN PRN (08:30)
[2019-12-21] MEDS ORDERED: RISPERDAL1 MG/1 ML GT (09:11)
[2019-12-21] MEDS ORDERED: VITAMIN C250 MG GT (09:11)
[2019-12-21] MEDS ORDERED: FLEET ENEMA133 ML RECTAL (09:11)
[2019-12-21] MEDS ORDERED: KEPPRA1000 MG GT (09:11)
[2019-12-21] MEDS ORDERED: MOM30 ML GT (09:11)
[2019-12-21] MEDS ORDERED: ZOFRAN4 M1 GT (09:11)
[2019-12-21] MEDS ORDERED: ACETAMINOPHEN325 M1 ORAL (09:11)
[2019-12-21] MEDS ORDERED: Nitroglycerin Subl 0.4mg tab SL PRN (09:15)
[2019-12-21] MEDS: Heparin 5000 units/ml inj SUBQ SCH ×2 (09:15→20:25)
[2019-12-21] MEDS ORDERED: Vancomycin 1.5gm/NS Premix IVPB SCH (09:15)
--- NOTE | 2019-12-21 10:13 | Consultation ---
History of Present Illness General Date patient seen: December 21, 2019 Time patient seen: 08:30 Chief Complaint: Altered Mental Status Referring physician: Dr Johnson Reason for Consultation: recent COVID PNA, fevers, Present Illness HPI 64 years old male, resident of [facility] facility, with past medical history of CVA, seizure disorder, cerebral palsy, hypertension, COPD, dysphagia , feeding by G-tube, schizophrenia, was sent for evaluation due to altered mental status and fever. Patient recently discharged from this hospital about 3 weeks ago. At that time he was diagnosed with COVID pneumonia, stabilized and was sent back to [facility] facility. Apparently at the facility he had fever and was altered. Patient subsequently was sent back for evaluation. In ER patient had low-grade fever 100. Laboratory work-up revealed no leukocytosis, stable hemoglobin, hematocrit and platelet count. Lactic acid 3.2. BUN 20, creatinine 0.9. Stable electrolytes. Stable LFT. Troponin negative. Urinalysis revealed no evidence of urinary tract infection , +2 protein. Influenza swab test was negative. Chest x-ray revealed low lung volumes with resultant bronchovascular crowding. No focal consolidation. Mild interstitial pulmonary edema cannot be excluded. In emergency department patient pancultured, started on IV fluids and broad- spectrum antibiotics and currently waiting for transfer to the floor to isolation room for further management. Allergies: Coded Allergies: NO KNOWN DRUG ALLERGIES (Unverified Allergy, Unknown, 07/16/19) Medication History Scheduled Al Hydroxide/mg Hydroxide (Mag-Al Liquid), 30 ML GT Q6HR, (Reported) Ascorbic Acid* (Vitamin C*), 500 MG GT TWICE A DAY, (Reported) Ascorbic Acid* (Vitamin C*), 250 MG GT DAILY, (Reported) Clotrimazole* (Lotrimin*), 1 APPLIC TOPIC TWICE A DAY, (Reported) Docusate Sodium (Docusate Sodium), 100 MG GT TWICE A DAY, (Reported) Famotidine (Pepcid), 20 MG ORAL BEDTIME, (Reported) Finasteride* (Proscar*), 5 MG GT DAILY, (Reported) Insulin Detemir (Levemir Flextouch), 15 UNIT SQ ACBREAKFAST, (Reported) Lacosamide (Vimpat), 100 MG GT EVERY 12 HOURS, (Reported) Levetiracetam (Keppra), 1,000 MG GT DAILY, (Reported) Magnesium Hydroxide (Milk of Magnesia), 30 ML GT BEDTIME, (Reported) Magnesium Hydroxide (Milk of Magnesia), 30 ML GT DAILY, (Reported) Metoprolol Tartrate* (Metoprolol Tartrate*), 25 MG GT EVERY 12 HOURS, (Reported) Multivitamin Liquid* (Multi-Delyn*), 5 ML GT DAILY, (Reported) Na Phos,M-B/Na Phos,Di-Ba* (Fleet Enema*), 133 ML RECTAL DAILY, (Reported) Omeprazole (Omeprazole), 20 MG GT DAILY, (Reported) Potassium Chloride (Potassium Chloride), 40 MEQ GT BID, (Reported) Risperidone* (Risperdal*), 1 MG GT DAILY, (Reported) Sennosides/Docusate Sodium (Senna Laxative Tablet), 2 EACH GT QHS, (Reported) Zinc Sulfate (Zinc Sulfate*), 220 MG ORAL DAILY, (Reported) Scheduled PRN Acetaminophen* (Acetaminophen 325MG Tablet*), 650 MG GT Q4H PRN for Fever/ Headache/Mild Pain, (Reported) Acetaminophen* (Acetaminophen 325MG Tablet*), 325 MG ORAL Q4H PRN for , ( Reported) Bisacodyl (Dulcolax), 10 MG RC DAILY PRN for Constipation, (Reported) Ipratropium/Albuterol Sulfate (DuoNeb 0.5-3(2.5)mg/3ml), 3 ML HHN Q4HR PRN for Shortness of Breath, (Reported) Na Phos,M-B/Na Phos,Di-Ba* (Fleet Enema*), 133 ML RECTAL DAILY PRN for Constipation, (Reported) Nitroglycerin (Nitroglycerin), 0.4 MG SL q5mns x three doses PRN for chest pain, (Reported) Ondansetron (Zofran), 4 MG GT Q6H PRN for Nausea & Vomiting, (Reported) Ondansetron* (Zofran*), 4 MG GT Q6H PRN for Nausea & Vomiting, (Reported) Polyethylene Glycol 3350* (Miralax*), 17 GM GT DAILY PRN for Constipation, ( Reported) Temazepam* (Restoril*), 15 MG ORAL BEDTIME PRN for Insomnia, (Reported) Miscellaneous Medications Insulin Aspart (Novolog Flexpen), (Reported) Magnesium Hydroxide* (Milk Of Magnesia*), 30 ML GT, (Reported) Risperidone (Risperdal), 1 MG GT, (Reported) Patient History Healthcare decision maker Resuscitation status full code Advanced Directive on File Past Medical/Surgical History Past Medical/Surgical History: (1) Diabetes (2) Schizophrenia (3) Seizure disorder (4) Hypertension (5) ARF (acute renal failure) (6) Feeding by G-tube Review of Systems ROS Narrative unable to obtain due to patient's medical condition Physical Exam General Appearance: no apparent distress, other - bedridden chronically ill looking male in NAD Lines, tubes and drains: peripheral HEENT: normocephalic, atraumatic, anicteric Respiratory/Chest: lungs clear - with moderate air exchange Cardiovascular/Chest: normal rate Abdomen: normal bowel sounds, non tender, soft, feeding tube - G tube Skin Exam: warm/dry Neurologic: abnormal gait, other - eyes open, npot repsosnive to verbal commands, paraplegia Musculoskeletal: atrophy - BLE Last 24 Hour Vital Signs Date Time Temp Pulse Resp B/P (MAP) Pulse Ox O2 Delivery O2 Flow Rate FiO2 12/21/19 06:40 98.8 102 17 124/78 100 Nasal Cannula 4.0 12/21/19 05:41 98.8 98 20 124/70 99 Nasal Cannula 4.0 12/21/19 04:30 98.8 115 20 124/70 99 Nasal Cannula 4.0 12/21/19 04:00 106 20 Nasal Cannula 4.0 12/21/19 04:00 100.0 125 20 127/72 94 Nasal Cannula 4.0 12/21/19 03:56 100.0 106 20 127/72 (90) 94 Nasal Cannula 4.0 Intake and Output 12/20/19 12/21/19 18:59 06:59 Intake Total 1275 ml Balance 1275 ml Intake Oral 0 ml IV Total 1275 ml Laboratory Tests Test 12/21/19 04:44 12/21/19 06:43 12/21/19 07:00 White Blood Count 9.1 K/UL (4.8-10.8) Red Blood Count 6.91 M/UL (4.70-6.10) H Hemoglobin 14.9 G/DL (14.2-18.0) Hematocrit 46.5 % (42.0-52.0) Mean Corpuscular Volume 67 FL (80-99) L Mean Corpuscular Hemoglobin 21.6 PG (27.0-31.0) L Mean Corpuscular Hemoglobin Concent 32.0 G/DL (32.0-36.0) Red Cell Distribution Width 13.7 % (11.6-14.8) Platelet Count 217 K/UL (150-450) Mean Platelet Volume 12.0 FL (6.5-10.1) H Neutrophils (%) (Auto) 75.1 % (45.0-75.0) H Lymphocytes (%) (Auto) 13.1 % (20.0-45.0) L Monocytes (%) (Auto) 11.1 % (1.0-10.0) H Eosinophils (%) (Auto) 0.2 % (0.0-3.0) Basophils (%) (Auto) 0.5 % (0.0-2.0) Prothrombin Time 10.3 SEC (9.30-11.50) Prothromb Time International Ratio 0.9 (0.9-1.1) Activated Partial Thromboplast Time 21 SEC (23-33) L D-Dimer 7.69 mg/L FEU (0.00-0.49) H Sodium Level 142 MMOL/L (136-145) Potassium Level 4.3 MMOL/L (3.5-5.1) Chloride Level 105 MMOL/L (98-107) Carbon Dioxide Level 26 MMOL/L (21-32) Anion Gap 12 mmol/L (5-15) Blood Urea Nitrogen 20 mg/dL (7-18) H Creatinine 0.9 MG/DL (0.55-1.30) Estimat Glomerular Filtration Rate > 60 mL/min (>60) Glucose Level 123 MG/DL (74-106) H Lactic Acid Level 3.20 mmol/L (0.4-2.0) H 0.90 mmol/L (0.66-2.22) Calcium Level 9.6 MG/DL (8.5-10.1) Ferritin 190 NG/ML (8-388) Total Bilirubin 0.4 MG/DL (0.2-1.0) Aspartate Amino Transf (AST/SGOT) 19 U/L (15-37) Alanine Aminotransferase (ALT/SGPT) 22 U/L (12-78) Alkaline Phosphatase 193 U/L (46-116) H Total Creatine Kinase 77 U/L (26-308) Creatine Kinase MB 1.4 NG/ML (0.0-3.6) Creatine Kinase MB Relative Index 1.8 Troponin I 0.000 ng/mL (0.000-0.056) C-Reactive Protein, Quantitative 2.4 mg/dL (0.00-0.90) H Total Protein 8.5 G/DL (6.4-8.2) H Albumin 4.0 G/DL (3.4-5.0) Globulin 4.5 g/dL Albumin/Globulin Ratio 0.9 (1.0-2.7) L Urine Color Yellow Urine Appearance Clear Urine pH 5 (4.5-8.0) Urine Specific Antlers 1.025 (1.005-1.035) Urine Protein 2+ (NEGATIVE) H Urine Glucose (UA) Negative (NEGATIVE) Urine Ketones 2+ (NEGATIVE) H Urine Blood 5+ (NEGATIVE) H Urine Nitrite Negative (NEGATIVE) Urine Bilirubin Negative (NEGATIVE) Urine Urobilinogen Normal MG/DL (0.0-1.0) Urine Leukocyte Esterase 1+ (NEGATIVE) H Urine RBC 10-15 /HPF (0 - 0) H Urine WBC 0-2 /HPF (0 - 0) Urine Squamous Epithelial Cells Occasional /LPF Urine Bacteria Occasional /HPF (NONE) Urine Mucus Moderate /LPF (NONE/OCC) H Microbiology Date/Time Source Procedure Growth Status 12/21/19 05:00 Nasal Nares - Final Complete 12/21/19 05:00 Nasal Nares - Final Complete Height (Feet): 6 Height (Inches): 2.00 Weight (Pounds): 160 Medications Current Medications Medications (Trade) Dose Ordered Sig/Monalisa Route PRN Reason Start Time Stop Time Status Last Admin Dose Admin Acetaminophen (Tylenol) 650 mg Q4H PRN ORAL T>100.5 12/21/19 08:30 01/20/20 08:29 Albuterol/ Ipratropium (Albuterol/ Ipratropium) 3 ml Q4H PRN HHN Shortness of Breath 12/21/19 08:30 12/26/19 08:29 Cefepime HCl 2 gm/ Dextrose 110 ml @ 220 mls/hr EVERY 12 HOURS IV 12/21/19 09:00 12/28/19 08:59 UNV Dextrose (Dextrose 50%) 25 ml Q30M PRN IV Hypoglycemia 12/21/19 08:30 03/20/20 08:29 Dextrose (Dextrose 50%) 50 ml Q30M PRN IV Hypoglycemia 12/21/19 08:30 03/20/20 08:29 Finasteride (Proscar) 5 mg DAILY ORAL 12/21/19 09:30 03/20/20 09:29 12/21/19 09:16 Heparin Sodium (Porcine) (Heparin 5000 units/ml) 5,000 units EVERY 12 HOURS SUBQ 12/21/19 09:00 02/04/20 08:59 12/21/19 09:15 Insulin Aspart (NovoLOG) BEFORE MEALS AND HS SUBQ 12/21/19 11:30 03/20/20 11:29 Nitroglycerin (Ntg) 0.4 mg Q5MIN X 3 DOSES PRN SL Prn Chest Pain 12/21/19 09:15 01/20/20 09:14 Ondansetron HCl (Zofran) 4 mg Q6H PRN IVP Nausea & Vomiting 12/21/19 08:30 01/20/20 08:29 Polyethylene Glycol (Miralax) 17 gm DAILYPRN PRN ORAL Constipation 12/21/19 08:30 01/20/20 08:29 Risperidone (RisperDAL) 1 mg DAILY GT 12/21/19 09:30 02/04/20 09:29 12/21/19 09:16 Temazepam (Restoril) 15 mg HSPRN PRN ORAL Insomnia 12/21/19 21:00 12/28/19 20:59 Vancomycin HCl (Vanco rx to dose) 1 ea DAILY PRN MISC . 12/21/19 09:15 01/20/20 09:14 Vancomycin HCl 1 gm/Dextrose 275 ml @ 183.708 mls/hr Q8HR@0200,1000,1800 IVPB 12/21/19 18:00 12/26/19 17:59 Vancomycin/Sodium Chloride 275 ml @ 137.5 mls/ hr ONCE IVPB 12/21/19 09:15 12/21/19 12:00 12/21/19 09:16 Assessment/Plan Assessment/Plan: ASSESSMENT Sepsis (with fevers, elevated lactic acid, recent COVID infection) Confirmed recent COVID PNA Acute toxic metabolic encephalopathy Dysphagia , feeding by G-tube High aspiration risk COPD Hx of CVA Seizure disorder Schizophrenia PLAN OF CARE admit to isolation room empiric abx , f/up with cx will get another COVID 19 inflammatory markers O2 titrate to keep sat above 92% pulm toilet, aspiration precautions DVT prophylaxis fup with CXR in am gentle IVF BS management resume SNF meds seizure precautions, continue antiepileptic from the facility supportive care case discussed and evaluated by supervising physician Lia Desir NP December 21, 2019 10:13
[2019-12-21] MEDS: NovoLOG Insulin Flexpen SUBQ SCH ×3 (11:30→20:25)
[2019-12-21] MEDS ORDERED: NovoLOG Insulin Flexpen SUBQ SCH (11:30)
--- NOTE | 2019-12-21 15:19 | Consultation ---
History of Present Illness General Date patient seen: December 21, 2019 Chief Complaint: Altered Mental Status Referring physician: Dr Johnson Reason for Consultation: recent COVID PNA, fevers, Present Illness HPI 64 y/o M with hx of Dm2, HTN, seizure disorder, dysphagia s/p GT, decubitus ulcer, FTT, cerebral palsy, COPD, CVA/TIA, paranoid schizophrenia, non verbal, SNF resident (Zaira Good), recent COVID19 pneumonia (dx 11/19) presented to ED on 12/20 with altered mental status and fever. Of note, was admitted here from 11/19-11/29 for COVID19 pneumonia. Allergies: Coded Allergies: NO KNOWN DRUG ALLERGIES (Unverified Allergy, Unknown, 07/16/19) Medication History Scheduled Al Hydroxide/mg Hydroxide (Mag-Al Liquid), 30 ML GT Q6HR, (Reported) Ascorbic Acid* (Vitamin C*), 500 MG GT TWICE A DAY, (Reported) Ascorbic Acid* (Vitamin C*), 250 MG GT DAILY, (Reported) Clotrimazole* (Lotrimin*), 1 APPLIC TOPIC TWICE A DAY, (Reported) Docusate Sodium (Docusate Sodium), 100 MG GT TWICE A DAY, (Reported) Famotidine (Pepcid), 20 MG ORAL BEDTIME, (Reported) Finasteride* (Proscar*), 5 MG GT DAILY, (Reported) Insulin Detemir (Levemir Flextouch), 15 UNIT SQ ACBREAKFAST, (Reported) Lacosamide (Vimpat), 100 MG GT EVERY 12 HOURS, (Reported) Levetiracetam (Keppra), 1,000 MG GT DAILY, (Reported) Magnesium Hydroxide (Milk of Magnesia), 30 ML GT BEDTIME, (Reported) Magnesium Hydroxide (Milk of Magnesia), 30 ML GT DAILY, (Reported) Metoprolol Tartrate* (Metoprolol Tartrate*), 25 MG GT EVERY 12 HOURS, (Reported) Multivitamin Liquid* (Multi-Delyn*), 5 ML GT DAILY, (Reported) Na Phos,M-B/Na Phos,Di-Ba* (Fleet Enema*), 133 ML RECTAL DAILY, (Reported) Omeprazole (Omeprazole), 20 MG GT DAILY, (Reported) Potassium Chloride (Potassium Chloride), 40 MEQ GT BID, (Reported) Risperidone* (Risperdal*), 1 MG GT DAILY, (Reported) Sennosides/Docusate Sodium (Senna Laxative Tablet), 2 EACH GT QHS, (Reported) Zinc Sulfate (Zinc Sulfate*), 220 MG ORAL DAILY, (Reported) Scheduled PRN Acetaminophen* (Acetaminophen 325MG Tablet*), 650 MG GT Q4H PRN for Fever/ Headache/Mild Pain, (Reported) Acetaminophen* (Acetaminophen 325MG Tablet*), 325 MG ORAL Q4H PRN for , ( Reported) Bisacodyl (Dulcolax), 10 MG RC DAILY PRN for Constipation, (Reported) Ipratropium/Albuterol Sulfate (DuoNeb 0.5-3(2.5)mg/3ml), 3 ML HHN Q4HR PRN for Shortness of Breath, (Reported) Na Phos,M-B/Na Phos,Di-Ba* (Fleet Enema*), 133 ML RECTAL DAILY PRN for Constipation, (Reported) Nitroglycerin (Nitroglycerin), 0.4 MG SL q5mns x three doses PRN for chest pain, (Reported) Ondansetron (Zofran), 4 MG GT Q6H PRN for Nausea & Vomiting, (Reported) Ondansetron* (Zofran*), 4 MG GT Q6H PRN for Nausea & Vomiting, (Reported) Polyethylene Glycol 3350* (Miralax*), 17 GM GT DAILY PRN for Constipation, ( Reported) Temazepam* (Restoril*), 15 MG ORAL BEDTIME PRN for Insomnia, (Reported) Miscellaneous Medications Insulin Aspart (Novolog Flexpen), (Reported) Magnesium Hydroxide* (Milk Of Magnesia*), 30 ML GT, (Reported) Risperidone (Risperdal), 1 MG GT, (Reported) Patient History Healthcare decision maker Resuscitation status Advanced Directive on File Patient History Narrative Pmhx: as above SHx: reviewed Fhx: non contributory Review of Systems All Other Systems: negative except mentioned in HPI Physical Exam Physical Exam Narrative General Appearance: no apparent distress, other - bedridden chronically ill looking male in NAD Lines, tubes and drains: peripheral HEENT: normocephalic, atraumatic, anicteric Respiratory/Chest: lungs clear - with moderate air exchange Cardiovascular/Chest: normal rate Abdomen: normal bowel sounds, non tender, soft, feeding tube - G tube Skin Exam: warm/dry Neurologic: abnormal gait, other - eyes open, npot repsosnive to verbal commands, paraplegia Musculoskeletal: atrophy - BLE Last 24 Hour Vital Signs Date Time Temp Pulse Resp B/P (MAP) Pulse Ox O2 Delivery O2 Flow Rate FiO2 12/21/19 12:00 97.9 98 18 133/19 (57) 100 12/21/19 11:49 Room Air 12/21/19 11:20 98.9 104 15 117/89 100 Nasal Cannula 4.0 12/21/19 11:20 98.9 104 15 117/89 100 Nasal Cannula 4.0 12/21/19 10:20 98.9 120 17 123/70 100 Nasal Cannula 4.0 12/21/19 10:07 98.8 112 15 119/76 96 Nasal Cannula 4.0 12/21/19 08:00 98.8 110 16 117/80 99 Nasal Cannula 4.0 12/21/19 06:40 98.8 102 17 124/78 100 Nasal Cannula 4.0 12/21/19 05:41 98.8 98 20 124/70 99 Nasal Cannula 4.0 12/21/19 04:30 98.8 115 20 124/70 99 Nasal Cannula 4.0 12/21/19 04:00 106 20 Nasal Cannula 4.0 12/21/19 04:00 100.0 125 20 127/72 94 Nasal Cannula 4.0 12/21/19 03:56 100.0 106 20 127/72 (90) 94 Nasal Cannula 4.0 Intake and Output 12/20/19 12/21/19 19:00 07:00 Intake Total 1275 ml Balance 1275 ml Intake Oral 0 ml IV Total 1275 ml Laboratory Tests Test 12/21/19 04:44 12/21/19 06:43 12/21/19 07:00 White Blood Count 9.1 K/UL (4.8-10.8) Red Blood Count 6.91 M/UL (4.70-6.10) H Hemoglobin 14.9 G/DL (14.2-18.0) Hematocrit 46.5 % (42.0-52.0) Mean Corpuscular Volume 67 FL (80-99) L Mean Corpuscular Hemoglobin 21.6 PG (27.0-31.0) L Mean Corpuscular Hemoglobin Concent 32.0 G/DL (32.0-36.0) Red Cell Distribution Width 13.7 % (11.6-14.8) Platelet Count 217 K/UL (150-450) Mean Platelet Volume 12.0 FL (6.5-10.1) H Neutrophils (%) (Auto) 75.1 % (45.0-75.0) H Lymphocytes (%) (Auto) 13.1 % (20.0-45.0) L Monocytes (%) (Auto) 11.1 % (1.0-10.0) H Eosinophils (%) (Auto) 0.2 % (0.0-3.0) Basophils (%) (Auto) 0.5 % (0.0-2.0) Prothrombin Time 10.3 SEC (9.30-11.50) Prothromb Time International Ratio 0.9 (0.9-1.1) Activated Partial Thromboplast Time 21 SEC (23-33) L D-Dimer 7.69 mg/L FEU (0.00-0.49) H Sodium Level 142 MMOL/L (136-145) Potassium Level 4.3 MMOL/L (3.5-5.1) Chloride Level 105 MMOL/L (98-107) Carbon Dioxide Level 26 MMOL/L (21-32) Anion Gap 12 mmol/L (5-15) Blood Urea Nitrogen 20 mg/dL (7-18) H Creatinine 0.9 MG/DL (0.55-1.30) Estimat Glomerular Filtration Rate > 60 mL/min (>60) Glucose Level 123 MG/DL (74-106) H Lactic Acid Level 3.20 mmol/L (0.4-2.0) H 0.90 mmol/L (0.66-2.22) Calcium Level 9.6 MG/DL (8.5-10.1) Ferritin 190 NG/ML (8-388) Total Bilirubin 0.4 MG/DL (0.2-1.0) Aspartate Amino Transf (AST/SGOT) 19 U/L (15-37) Alanine Aminotransferase (ALT/SGPT) 22 U/L (12-78) Alkaline Phosphatase 193 U/L (46-116) H Total Creatine Kinase 77 U/L (26-308) Creatine Kinase MB 1.4 NG/ML (0.0-3.6) Creatine Kinase MB Relative Index 1.8 Troponin I 0.000 ng/mL (0.000-0.056) C-Reactive Protein, Quantitative 2.4 mg/dL (0.00-0.90) H Total Protein 8.5 G/DL (6.4-8.2) H Albumin 4.0 G/DL (3.4-5.0) Globulin 4.5 g/dL Albumin/Globulin Ratio 0.9 (1.0-2.7) L Urine Color Yellow Urine Appearance Clear Urine pH 5 (4.5-8.0) Urine Specific [place] 1.025 (1.005-1.035) Urine Protein 2+ (NEGATIVE) H Urine Glucose (UA) Negative (NEGATIVE) Urine Ketones 2+ (NEGATIVE) H Urine Blood 5+ (NEGATIVE) H Urine Nitrite Negative (NEGATIVE) Urine Bilirubin Negative (NEGATIVE) Urine Urobilinogen Normal MG/DL (0.0-1.0) Urine Leukocyte Esterase 1+ (NEGATIVE) H Urine RBC 10-15 /HPF (0 - 0) H Urine WBC 0-2 /HPF (0 - 0) Urine Squamous Epithelial Cells Occasional /LPF Urine Bacteria Occasional /HPF (NONE) Urine Mucus Moderate /LPF (NONE/OCC) H Microbiology Date/Time Source Procedure Growth Status 12/21/19 05:00 Nasal Nares - Final Complete 12/21/19 05:00 Nasal Nares - Final Complete Height (Feet): 6 Height (Inches): 2.00 Weight (Pounds): 160 Medications Current Medications Medications (Trade) Dose Ordered Sig/Monalisa Route PRN Reason Start Time Stop Time Status Last Admin Dose Admin Acetaminophen (Tylenol) 650 mg Q4H PRN ORAL T>100.5 12/21/19 08:30 01/20/20 08:29 Albuterol/ Ipratropium (Albuterol/ Ipratropium) 3 ml Q4H PRN HHN Shortness of Breath 12/21/19 08:30 12/26/19 08:29 Cefepime HCl 2 gm/ Dextrose 110 ml @ 220 mls/hr EVERY 12 HOURS IV 12/21/19 21:00 12/28/19 20:59 Dextrose (Dextrose 50%) 25 ml Q30M PRN IV Hypoglycemia 12/21/19 08:30 03/20/20 08:29 Dextrose (Dextrose 50%) 50 ml Q30M PRN IV Hypoglycemia 12/21/19 08:30 03/20/20 08:29 Finasteride (Proscar) 5 mg DAILY ORAL 12/21/19 09:30 03/20/20 09:29 12/21/19 09:16 Heparin Sodium (Porcine) (Heparin 5000 units/ml) 5,000 units EVERY 12 HOURS SUBQ 12/21/19 09:00 02/04/20 08:59 12/21/19 09:15 Insulin Aspart (NovoLOG) BEFORE MEALS AND HS SUBQ 12/21/19 11:30 03/20/20 11:29 Nitroglycerin (Ntg) 0.4 mg Q5MIN X 3 DOSES PRN SL Prn Chest Pain 12/21/19 09:15 01/20/20 09:14 Ondansetron HCl (Zofran) 4 mg Q6H PRN IVP Nausea & Vomiting 12/21/19 08:30 01/20/20 08:29 Polyethylene Glycol (Miralax) 17 gm DAILYPRN PRN ORAL Constipation 12/21/19 08:30 01/20/20 08:29 Risperidone (RisperDAL) 1 mg DAILY GT 12/21/19 09:30 02/04/20 09:29 12/21/19 09:16 Sodium Chloride 1,000 ml @ 50 mls/hr Q20H IV 12/21/19 10:15 01/20/20 10:14 12/21/19 10:30 Temazepam (Restoril) 15 mg HSPRN PRN ORAL Insomnia 12/21/19 21:00 12/28/19 20:59 Vancomycin HCl (Vanco rx to dose) 1 ea DAILY PRN MISC . 12/21/19 09:15 01/20/20 09:14 Vancomycin HCl 1 gm/Dextrose 275 ml @ 183.708 mls/hr Q8HR@0200,1000,1800 IVPB 12/21/19 18:00 12/26/19 17:59 Assessment/Plan Assessment/Plan: Abx: IV Vancomycin 12/20- Cefepime 12/20- Levaquin x1 12/20 Assessment: Sepsis- ?source R/o probable bacteremia Low grade fever- No obvious PNA on CXR No leukocytosis -12/20 CXR: Low lung volume with resultant bronchovascular crowding. No focal consolidation. Mild interstitial pulmonary edema cannot be excluded. Nonspecific prominent air-filled loops of bowel of the partially visualized abdomen. -Influenza PCR neg -u/a no pyuria Lactic acidosis, SP Recent COVID19 pneumonia (dx 11/19) Dm2 HTN seizure disorder dysphagia s/p GT decubitus ulcer FTT cerebral palsy COPD CVA/TIA paranoid schizophrenia non verbal SNF resident (Zaria Good) Plan: -Continue empiric IV Vancomycin and Cefepime #1 for now pending cultures -f/u cx -Monitor CBC/CMP, temperature -COVID19 isolation and testing Thank you for consulting [facility]. Will continue to follow along with you. Dilma Chand M.D. December 21, 2019 15:19
[2019-12-21] MEDS: Vancomycin 1gm/D5W 275ml IVPB SCH ×2 (17:11)
[2019-12-21] MEDS ORDERED: Vancomycin 1gm/D5W 275ml IVPB SCH ×2 (18:00)
--- NOTE | 2019-12-21 18:15 | History and Physical Report ---
DATE OF ADMISSION: 12/21/2019 DATE AND TIME SEEN: 12/21/2019 at 3 p.m. CONSULTANTS: 1. Pito Song MD 2. Lucie Gracia MD CHIEF COMPLAINT: Fever, sepsis, history of COVID positive. BRIEF HISTORY: This is a 64-year-old male from [facility], presented with increased fever. He does have history of positive COVID and sepsis, so he was brought to [place], diagnosed with the above, admitted to medical floor for further treatment. Currently sleeping in bed, confused, which is baseline. REVIEW OF SYSTEMS: Unavailable. PAST MEDICAL HISTORY: Schizophrenia, GERD, renal failure, COPD, Parkinson's, hypertension, seizure, diabetes, BPH, cerebral palsy. PAST SURGICAL HISTORY: Unknown. ALLERGIES: Denied. SOCIAL HISTORY: Unable to obtain secondary to the patient's condition. OBJECTIVE: GENERAL: Lethargic, sleeping in bed, not talking much. VITAL SIGNS: Temperature is 98, pulse 98, respirations 18, blood pressure 117/89. HEENT: Normocephalic, atraumatic. NECK: Trachea midline. CARDIOVASCULAR: No peripheral edema. PULMONARY: Breathing comfortably in room air. ABDOMEN: No apparent wound extension. No cyanosis or clubbing. LAB EXAM: CBC is normal. BMP show BUN 20, glucose 123, lactic acid 3.2, then 0.9. Alk phos 193, troponin less than 0.00. INR is 0.9. Urinalysis show 1+ leukocyte esterase. MEDICATIONS: Cefepime, temazepam, vancomycin, insulin, risperidone, heparin, Zofran. ASSESSMENT: Fever, UTI, sepsis, COVID infection, schizophrenia, GERD, renal failure, COPD, Parkinson's, hypertension, diabetes, seizure, BPH, cerebral palsy. PLAN: 1. Resume home meds. 2. Antibiotics per Infectious Disease. 3. PT/OT. 4. Dietary followup. 5. CBC, BMP in the morning. 6. We will continue to follow the patient. Donaldo Johnson D.O. DR: TALAT JOB#: [id number] CC:
[2019-12-21] MEDS: Cefepime HCl 2 GM in D5W 110 ML IV SCH (20:24)
[2019-12-22] VITALS: BP 107/59
[2019-12-22] MEDS ORDERED: Vancomycin 1 GM in D5W 275 ML IV SCH (00:30)
[2019-12-22] MEDS: Vancomycin 1gm/D5W 275ml IVPB SCH ×6 (01:28→18:03)
[2019-12-22 04:31] VITALS: BP 113/71
[2019-12-22] MEDS: NovoLOG Insulin Flexpen SUBQ SCH ×4 (06:04→21:00)
[2019-12-22 08:00] VITALS: BP 126/80
[2019-12-22] MEDS: Cefepime HCl 2 GM in D5W 110 ML IV SCH ×2 (08:59→20:40)
[2019-12-22] MEDS: Heparin 5000 units/ml inj SUBQ SCH ×2 (09:02→20:41)
[2019-12-22 09:15] LABS: BASOPHILS % (AUTO) 2.2 % (0.0-2.0); EOSINOPHILS % (AUTO) 2.1 % (0.0-3.0); HEMATOCRIT 39.5 % (42.0-52.0); HEMOGLOBIN 12.6 G/DL (14.2-18.0); LYMPHOCYTES % (AUTO) 18.7 % (20.0-45.0); MEAN CORPUSCULAR VOLUME 67 FL (80-99); MONOCYTES % (AUTO) 6.2 % (1.0-10.0); NEUTROPHILS % (AUTO) 70.8 % (45.0-75.0); PLATELET COUNT 206 K/UL (150-450); RED BLOOD COUNT 5.87 M/UL (4.70-6.10); RED CELL DISTRIBUTION WIDTH 13.4 % (11.6-14.8); WHITE BLOOD COUNT 6.4 K/UL (4.8-10.8)
--- NOTE | 2019-12-22 09:29 | Diagnostic Imaging Report ---
Indication: Shortness of breath Technique: One view of the chest Comparison: 12/21/2019 Findings: Left hemidiaphragm is elevated. Subsegmental atelectatic bands are seen at the left lung base and right perihilar region. Previously demonstrated interstitial prominence is no longer evident, was probably artifactual due to low lung volumes, as there is better inspiration on the current study. No focal airspace consolidation currently. Pleural spaces are clear. The heart size is normal. Impression: Bilateral subsegmental atelectatic changes. No acute process otherwise
[2019-12-22 09:36] LABS: ALANINE AMINOTRANSFERASE 18 U/L (12-78); ALBUMIN 3.6 G/DL (3.4-5.0); ALKALINE PHOSPHATASE 153 U/L (46-116); ANION GAP 11 mmol/L (5-15); ASPARTATE AMINO TRANSFERASE 22 U/L (15-37); BILIRUBIN,TOTAL 0.9 MG/DL (0.2-1.0); BLOOD UREA NITROGEN 8 mg/dL (7-18); CALCIUM 9.2 MG/DL (8.5-10.1); CARBON DIOXIDE 24 MMOL/L (21-32); CHLORIDE 109 MMOL/L (98-107); CREATININE 0.9 MG/DL (0.55-1.30); POTASSIUM 4.1 MMOL/L (3.5-5.1); SODIUM 144 MMOL/L (136-145)
[2019-12-22 12:00] VITALS: BP 116/81
--- NOTE | 2019-12-22 13:17 | General Progress Note ---
Assessment/Plan Problem List: (1) Fever ICD Codes: R50.9 - Fever, unspecified SNOMED: 473539570 (2) COPD (chronic obstructive pulmonary disease) ICD Codes: J44.9 - Chronic obstructive pulmonary disease, unspecified SNOMED: 14860041 (3) Parkinson disease ICD Codes: G20 - Parkinson's disease SNOMED: 05666175 (4) Diabetes ICD Codes: E11.9 - Type 2 diabetes mellitus without complications SNOMED: 75764154 (5) BPH (benign prostatic hyperplasia) ICD Codes: N40.0 - Benign prostatic hyperplasia without lower urinary tract symptoms SNOMED: 507911258 (6) Cerebral palsy ICD Codes: G80.9 - Cerebral palsy, unspecified SNOMED: 536996919 (7) UTI (urinary tract infection) ICD Codes: N39.0 - Urinary tract infection, site not specified SNOMED: 33065858 (8) Sepsis ICD Codes: A41.9 - Sepsis, unspecified organism SNOMED: 90786261 Qualifiers: Qualified Codes: A41.9 - Sepsis, unspecified organism (9) Suspected COVID-19 virus infection ICD Codes: Z20.828 - Contact with and (suspected) exposure to other viral communicable diseases SNOMED: 796963459 (10) Hypertension ICD Codes: I10 - Hypertension SNOMED: 44796277 (11) ARF (acute renal failure) ICD Codes: N17.9 - Acute kidney failure, unspecified SNOMED: 27084684 (12) Schizophrenia ICD Codes: F20.9 - Schizophrenia, unspecified SNOMED: 65712963 (13) Seizure disorder ICD Codes: G40.909 - Epilepsy, unspecified, not intractable,without status epilepticus SNOMED: 591870630 Status: unchanged Assessment/Plan: o2 pulm tx abx pt diet cbc bmp am Subjective Constitutional: Reports: weakness Allergies: Coded Allergies: NO KNOWN DRUG ALLERGIES (Unverified Allergy, Unknown, 07/16/19) All Systems: reviewed and negative except above Subjective sleepy calm Objective Last 24 Hour Vital Signs Date Time Temp Pulse Resp B/P (MAP) Pulse Ox O2 Delivery O2 Flow Rate FiO2 12/22/19 09:00 Nasal Cannula 2.0 12/22/19 08:00 97.4 105 18 126/80 (95) 95 105 12/22/19 06:40 94 Nasal Cannula 2.0 28 12/22/19 06:40 98 18 94 Nasal Cannula 2.0 28 12/22/19 04:31 96.6 99 24 113/71 (85) 95 99 12/22/19 00:00 97.9 114 26 107/59 (75) 95 114 12/21/19 21:48 Nasal Cannula 2.0 12/21/19 20:04 95 Nasal Cannula 2.0 28 12/21/19 20:00 98.4 103 18 104/67 (79) 94 12/21/19 16:00 97.5 119 18 116/72 (87) 94 Intake and Output 12/21/19 12/22/19 19:00 07:00 Intake Total 340 ml Output Total 1625 ml 1200 ml Balance -1625 ml -860 ml Free Water 100 ml Tube Feeding 240 ml Output Urine Total 1625 ml 1200 ml # Bowel Movements 1 Laboratory Tests 12/22/19 09:10: White Blood Count 6.4, Red Blood Count 5.87, Hemoglobin 12.6L, Hematocrit 39.5L , Mean Corpuscular Volume 67L, Mean Corpuscular Hemoglobin 21.4L, Mean Corpuscular Hemoglobin Concent 31.8L, Red Cell Distribution Width 13.4, Platelet Count 206, Mean Platelet Volume 9.5, Neutrophils (%) (Auto) 70.8, Lymphocytes (%) (Auto) 18.7L, Monocytes (%) (Auto) 6.2, Eosinophils (%) (Auto) 2.1, Basophils (%) (Auto) 2.2H, Sodium Level 144, Potassium Level 4.1, Chloride Level 109H, Carbon Dioxide Level 24, Anion Gap 11, Blood Urea Nitrogen 8, Creatinine 0.9, Estimat Glomerular Filtration Rate > 60, Glucose Level 113H, Calcium Level 9.2, Total Bilirubin 0.9, Aspartate Amino Transf (AST/SGOT) 22, Alanine Aminotransferase (ALT/SGPT) 18, Alkaline Phosphatase 153H, Total Protein 7.2, Albumin 3.6, Globulin 3.6, Albumin/Globulin Ratio 1.0, Vancomycin Level Trough 17.3H Height (Feet): 6 Height (Inches): 2.00 Weight (Pounds): 160 General Appearance: lethargic EENT: normal ENT inspection Neck: normal alignment Cardiovascular: normal rate, regular rhythm Respiratory/Chest: no respiratory distress, no accessory muscle use Extremities: normal inspection Skin: normal pigmentation Donaldo Johnson DO December 22, 2019 13:17
--- NOTE | 2019-12-22 13:42 | Pulmonology Progress Note ---
Subjective ROS Limited/Unobtainable: No Constitutional: Reports: no symptoms HEENT: Repors: no symptoms Allergies: Coded Allergies: NO KNOWN DRUG ALLERGIES (Unverified Allergy, Unknown, 07/16/19) All Systems: reviewed and negative except above Objective Last 24 Hour Vital Signs Date Time Temp Pulse Resp B/P (MAP) Pulse Ox O2 Delivery O2 Flow Rate FiO2 12/22/19 12:00 97.4 107 18 116/81 (93) 94 107 12/22/19 09:00 Nasal Cannula 2.0 12/22/19 08:00 97.4 105 18 126/80 (95) 95 105 12/22/19 06:40 94 Nasal Cannula 2.0 28 12/22/19 06:40 98 18 94 Nasal Cannula 2.0 28 12/22/19 04:31 96.6 99 24 113/71 (85) 95 99 12/22/19 00:00 97.9 114 26 107/59 (75) 95 114 12/21/19 21:48 Nasal Cannula 2.0 12/21/19 20:04 95 Nasal Cannula 2.0 28 12/21/19 20:00 98.4 103 18 104/67 (79) 94 12/21/19 16:00 97.5 119 18 116/72 (87) 94 Intake and Output 12/21/19 12/22/19 19:00 07:00 Intake Total 340 ml Output Total 1625 ml 1200 ml Balance -1625 ml -860 ml Free Water 100 ml Tube Feeding 240 ml Output Urine Total 1625 ml 1200 ml # Bowel Movements 1 General Appearance: cachetic HEENT: normocephalic, atraumatic Respiratory: chest wall non-tender, rhonchi - left, rhonchi - right Cardiovascular: normal peripheral pulses, normal rate Abdomen: normal bowel sounds, soft, non tender Genitourinary: normal external genitalia Extremities: no cyanosis Skin: no rash Lymphatic: no neck adenopathy Microbiology Date/Time Source Procedure Growth Status 12/21/19 04:30 Blood Blood Culture - Preliminary Resulted 12/21/19 04:15 Blood Blood Culture - Preliminary Resulted 12/21/19 05:00 Nasal Nares - Final Complete 12/21/19 05:00 Nasal Nares - Final Complete Laboratory Tests 12/22/19 09:10: White Blood Count 6.4, Red Blood Count 5.87, Hemoglobin 12.6L, Hematocrit 39.5L , Mean Corpuscular Volume 67L, Mean Corpuscular Hemoglobin 21.4L, Mean Corpuscular Hemoglobin Concent 31.8L, Red Cell Distribution Width 13.4, Platelet Count 206, Mean Platelet Volume 9.5, Neutrophils (%) (Auto) 70.8, Lymphocytes (%) (Auto) 18.7L, Monocytes (%) (Auto) 6.2, Eosinophils (%) (Auto) 2.1, Basophils (%) (Auto) 2.2H, Sodium Level 144, Potassium Level 4.1, Chloride Level 109H, Carbon Dioxide Level 24, Anion Gap 11, Blood Urea Nitrogen 8, Creatinine 0.9, Estimat Glomerular Filtration Rate > 60, Glucose Level 113H, Calcium Level 9.2, Total Bilirubin 0.9, Aspartate Amino Transf (AST/SGOT) 22, Alanine Aminotransferase (ALT/SGPT) 18, Alkaline Phosphatase 153H, Total Protein 7.2, Albumin 3.6, Globulin 3.6, Albumin/Globulin Ratio 1.0, Vancomycin Level Trough 17.3H Current Medications Medications (Trade) Dose Ordered Sig/Monalisa Route PRN Reason Start Time Stop Time Status Last Admin Dose Admin Acetaminophen (Tylenol) 650 mg Q4H PRN ORAL T>100.5 12/21/19 08:30 01/20/20 08:29 Albuterol/ Ipratropium (Albuterol/ Ipratropium) 3 ml Q4H PRN HHN Shortness of Breath 12/21/19 08:30 12/26/19 08:29 Cefepime HCl 2 gm/ Dextrose 110 ml @ 220 mls/hr EVERY 12 HOURS IV 12/21/19 21:00 12/28/19 20:59 12/22/19 08:59 Dextrose (Dextrose 50%) 25 ml Q30M PRN IV Hypoglycemia 12/21/19 08:30 03/20/20 08:29 Dextrose (Dextrose 50%) 50 ml Q30M PRN IV Hypoglycemia 12/21/19 08:30 03/20/20 08:29 Finasteride (Proscar) 5 mg DAILY ORAL 12/21/19 09:30 03/20/20 09:29 12/22/19 09:01 Heparin Sodium (Porcine) (Heparin 5000 units/ml) 5,000 units EVERY 12 HOURS SUBQ 12/21/19 09:00 02/04/20 08:59 12/22/19 09:02 Insulin Aspart (NovoLOG) BEFORE MEALS AND HS SUBQ 12/21/19 11:30 03/20/20 11:29 12/22/19 12:08 Nitroglycerin (Ntg) 0.4 mg Q5MIN X 3 DOSES PRN SL Prn Chest Pain 12/21/19 09:15 01/20/20 09:14 Ondansetron HCl (Zofran) 4 mg Q6H PRN IVP Nausea & Vomiting 12/21/19 08:30 01/20/20 08:29 Polyethylene Glycol (Miralax) 17 gm DAILYPRN PRN ORAL Constipation 12/21/19 08:30 01/20/20 08:29 Risperidone (RisperDAL) 1 mg DAILY GT 12/21/19 09:30 02/04/20 09:29 12/22/19 09:01 Sodium Chloride 1,000 ml @ 50 mls/hr Q20H IV 12/21/19 10:15 01/20/20 10:14 12/21/19 10:30 Temazepam (Restoril) 15 mg HSPRN PRN ORAL Insomnia 12/21/19 21:00 12/28/19 20:59 Vancomycin HCl (Vanco rx to dose) 1 ea DAILY PRN MISC . 12/21/19 09:15 01/20/20 09:14 Vancomycin HCl 1 gm/Dextrose 275 ml @ 183.708 mls/hr Q8HR@0200,1000,1800 IVPB 12/21/19 18:00 12/26/19 17:59 12/22/19 10:07 Assessment/Plan Problems: (1) Acute metabolic encephalopathy (2) COPD (chronic obstructive pulmonary disease) (3) Suspected COVID-19 virus infection (4) Diabetes (5) Parkinson disease (6) Feeding by G-tube (7) assisted resident (8) OBS (organic brain syndrome) (9) Hypertension (10) BPH (benign prostatic hyperplasia) Assessment/Plan check cultures iv abx check COVID tolerating feeding Gtube site care respiratory treatment sliding scale dvt prophylaxis check labs luc all meds reviewed. Lucie Gracia MD December 22, 2019 13:42
[2019-12-22] MEDS ORDERED: LORazepam 1mg tab GT PRN (14:48)
[2019-12-22 16:00] VITALS: BP 114/76
--- NOTE | 2019-12-22 18:04 | Infectious Diseases Prog Note ---
Assessment/Plan Assessment/Plan Assessment: Sepsis- Gram positive bacteremia- r/o S. aureus Low grade fever- No obvious PNA on CXR No leukocytosis -12/20 CXR: Low lung volume with resultant bronchovascular crowding. No focal consolidation. Mild interstitial pulmonary edema cannot be excluded. Nonspecific prominent air-filled loops of bowel of the partially visualized abdomen. -Influenza PCR neg -u/a no pyuria Lactic acidosis, SP Recent COVID19 pneumonia (dx 11/19) Dm2 HTN seizure disorder dysphagia s/p GT decubitus ulcer FTT cerebral palsy COPD CVA/TIA paranoid schizophrenia non verbal SNF resident (Zaria Good) Plan: -Continue empiric IV Vancomycin and Cefepime #2 for now pending cultures -12/20 SP Levaquin x1 -f/u cx -Monitor CBC/CMP, temperature -COVID19 isolation and testing -Bcx x2 -CXR am Thank you for consulting [facility]. Will continue to follow along with you. Subjective Allergies: Coded Allergies: NO KNOWN DRUG ALLERGIES (Unverified Allergy, Unknown, 07/16/19) Subjective afebrile >24hrs at 2l NC no leukocytosis bacteremic Objective Vital Signs Last 24 Hour Vital Signs Date Time Temp Pulse Resp B/P (MAP) Pulse Ox O2 Delivery O2 Flow Rate FiO2 12/22/19 16:00 97.9 94 18 114/76 (89) 100 94 12/22/19 12:00 97.4 107 18 116/81 (93) 94 107 12/22/19 09:00 Nasal Cannula 2.0 12/22/19 08:00 97.4 105 18 126/80 (95) 95 105 12/22/19 06:40 94 Nasal Cannula 2.0 28 12/22/19 06:40 98 18 94 Nasal Cannula 2.0 28 12/22/19 04:31 96.6 99 24 113/71 (85) 95 99 12/22/19 00:00 97.9 114 26 107/59 (75) 95 114 12/21/19 21:48 Nasal Cannula 2.0 12/21/19 20:04 95 Nasal Cannula 2.0 28 12/21/19 20:00 98.4 103 18 104/67 (79) 94 Height (Feet): 6 Height (Inches): 2.00 Weight (Pounds): 160 Objective GEn:no distress Head: atraumatic Lungs: no use of accessory muscle., no tachypnea Abd: not distended Microbiology Date/Time Source Procedure Growth Status 12/21/19 04:30 Blood Blood Culture - Preliminary Resulted 12/21/19 04:15 Blood Blood Culture - Preliminary Resulted 12/21/19 05:00 Nasal Nares - Final Complete 12/21/19 05:00 Nasal Nares - Final Complete Laboratory Tests Test 12/22/19 09:10 White Blood Count 6.4 K/UL (4.8-10.8) Red Blood Count 5.87 M/UL (4.70-6.10) Hemoglobin 12.6 G/DL (14.2-18.0) L Hematocrit 39.5 % (42.0-52.0) L Mean Corpuscular Volume 67 FL (80-99) L Mean Corpuscular Hemoglobin 21.4 PG (27.0-31.0) L Mean Corpuscular Hemoglobin Concent 31.8 G/DL (32.0-36.0) L Red Cell Distribution Width 13.4 % (11.6-14.8) Platelet Count 206 K/UL (150-450) Mean Platelet Volume 9.5 FL (6.5-10.1) Neutrophils (%) (Auto) 70.8 % (45.0-75.0) Lymphocytes (%) (Auto) 18.7 % (20.0-45.0) L Monocytes (%) (Auto) 6.2 % (1.0-10.0) Eosinophils (%) (Auto) 2.1 % (0.0-3.0) Basophils (%) (Auto) 2.2 % (0.0-2.0) H Sodium Level 144 MMOL/L (136-145) Potassium Level 4.1 MMOL/L (3.5-5.1) Chloride Level 109 MMOL/L (98-107) H Carbon Dioxide Level 24 MMOL/L (21-32) Anion Gap 11 mmol/L (5-15) Blood Urea Nitrogen 8 mg/dL (7-18) Creatinine 0.9 MG/DL (0.55-1.30) Estimat Glomerular Filtration Rate > 60 mL/min (>60) Glucose Level 113 MG/DL (74-106) H Calcium Level 9.2 MG/DL (8.5-10.1) Total Bilirubin 0.9 MG/DL (0.2-1.0) Aspartate Amino Transf (AST/SGOT) 22 U/L (15-37) Alanine Aminotransferase (ALT/SGPT) 18 U/L (12-78) Alkaline Phosphatase 153 U/L (46-116) H Total Protein 7.2 G/DL (6.4-8.2) Albumin 3.6 G/DL (3.4-5.0) Globulin 3.6 g/dL Albumin/Globulin Ratio 1.0 (1.0-2.7) Vancomycin Level Trough 17.3 ug/mL (5.0-12.0) H Current Medications Medications (Trade) Dose Ordered Sig/Monalisa Route PRN Reason Start Time Stop Time Status Last Admin Dose Admin Acetaminophen (Tylenol) 650 mg Q4H PRN ORAL T>100.5 12/21/19 08:30 01/20/20 08:29 Albuterol/ Ipratropium (Albuterol/ Ipratropium) 3 ml Q4H PRN HHN Shortness of Breath 12/21/19 08:30 12/26/19 08:29 Cefepime HCl 2 gm/ Dextrose 110 ml @ 220 mls/hr EVERY 12 HOURS IV 12/21/19 21:00 12/28/19 20:59 12/22/19 08:59 Dextrose (Dextrose 50%) 25 ml Q30M PRN IV Hypoglycemia 12/21/19 08:30 03/20/20 08:29 Dextrose (Dextrose 50%) 50 ml Q30M PRN IV Hypoglycemia 12/21/19 08:30 03/20/20 08:29 Finasteride (Proscar) 5 mg DAILY ORAL 12/21/19 09:30 03/20/20 09:29 12/22/19 09:01 Heparin Sodium (Porcine) (Heparin 5000 units/ml) 5,000 units EVERY 12 HOURS SUBQ 12/21/19 09:00 02/04/20 08:59 12/22/19 09:02 Insulin Aspart (NovoLOG) BEFORE MEALS AND HS SUBQ 12/21/19 11:30 03/20/20 11:29 12/22/19 12:08 Lorazepam (Ativan) 1 mg Q6H PRN GT For Anxiety 12/22/19 14:48 12/29/19 14:47 Nitroglycerin (Ntg) 0.4 mg Q5MIN X 3 DOSES PRN SL Prn Chest Pain 12/21/19 09:15 01/20/20 09:14 Ondansetron HCl (Zofran) 4 mg Q6H PRN IVP Nausea & Vomiting 12/21/19 08:30 01/20/20 08:29 Polyethylene Glycol (Miralax) 17 gm DAILYPRN PRN ORAL Constipation 12/21/19 08:30 01/20/20 08:29 Risperidone (RisperDAL) 1 mg DAILY GT 12/21/19 09:30 02/04/20 09:29 12/22/19 09:01 Sodium Chloride 1,000 ml @ 50 mls/hr Q20H IV 12/21/19 10:15 01/20/20 10:14 12/21/19 10:30 Temazepam (Restoril) 15 mg HSPRN PRN ORAL Insomnia 12/21/19 21:00 12/28/19 20:59 Vancomycin HCl (Vanco rx to dose) 1 ea DAILY PRN MISC . 12/21/19 09:15 01/20/20 09:14 Vancomycin HCl 1 gm/Dextrose 275 ml @ 183.708 mls/hr Q8HR@0200,1000,1800 IVPB 12/21/19 18:00 12/26/19 17:59 12/22/19 10:07 Dilma Chand M.D. December 22, 2019 18:04
[2019-12-22 20:24] VITALS: BP 106/73
[2019-12-23] MEDS: Vancomycin 1gm/D5W 275ml IVPB SCH ×6 (00:58→17:32)
--- NOTE | 2019-12-23 01:45 | Consultation ---
DATE OF CONSULTATION: 12/22/2019 HISTORY OF PRESENT ILLNESS: This is a 64-year-old male patient who has sepsis and he has got confusion and this patient has some decline in cognition below his baseline. This patient came into the hospital. This is a 64-year-old male, and the reason why he was admitted to the hospital is because the patient has fever, history of sepsis, COVID positive, came from [facility] and he came in with confusion, altered mental status. Cognition has declined below his baseline. PAST MEDICAL HISTORY: He has history of renal failure, COPD, Parkinson disease, hypertension, seizure disorder, and diabetes. ALLERGIES: No known drug allergies. PSYCHOTROPIC MEDICATIONS ON ADMISSION: He is on a psychotropic medication regimen consisting of Risperdal 1 mg per G-tube daily. SUBSTANCE ABUSE HISTORY: No known history of any drug or alcohol use. PAIN ASSESSMENT: 10/05 pain. DEVELOPMENTAL PROBLEMS: Denies. SOCIAL HISTORY: The patient lives in [facility]. He is financially supported by [employer] and Medicare. He is financially supported by [employer] and Medicare. No legal problems. As far as family support, minimal family support. PSYCHIATRIC HISTORY: History of paranoid schizophrenia. He has had multiple psychiatric admissions and psychiatric consultations in the hospital. STRENGTHS: He is motivated to get better and he is healthy. WEAKNESSES: He is impulsive. He has got no support system. MENTAL STATUS EXAMINATION: This is a 64-year-old male. Appearance is disheveled. Attitude, irritable and agitated. Affect, guarded and restricted. Intellect poor because he does not know current events and does not know the last four presidents. Mood, depressed and anxious. Motor activity, psychomotor agitation. Attention span is poor because he cannot do serial sevens, spell world backwards. Orientation x1, person, but not to place, time, or situation. Speech is nonsensical. Thought process, disorganized and illogical. Thought content, auditory hallucinations and paranoid delusions. Perception is poor because of auditory hallucinations and paranoid delusions. Abstract reasoning is poor because he does not understand proverbs, only has cognitive thinking. Insight is poor because he does not recognize having any psychiatric disorder. Judgment is poor because he does not accept consequences for his actions. Short-term memory, 0/3 recall after 5 minutes delay with poor short-term memory. Long-term memory is poor because he cannot recall long-term events in his life such as high school that he went to. His gait is normal limits. No abnormal movements. No signs of any suicidal or homicidal thoughts. DIAGNOSES: 1. Major depressive disorder, severe, recurrent, without psychotic features, rule out bipolar II, rule out dementia with psychosis. 2. Secondary medical diagnoses include fever, sepsis, COVID-19 positive, diabetes, BPH, hypertension, Parkinson disease, . 3. Psychosocial stressors, financial. 4. Functional impairment is severe. PLAN: Treat this patient with psychotropic medication regimen consisting of Risperdal 1 mg per G-tube daily and also I am going to adjust as p.r.n., add Ativan 1 mg every 6 hours per G-tube p.r.n. anxiety and agitation. He will continue to be followed by Psychiatry throughout the hospital course. Twenty minutes of insight-oriented psychotherapy provided for help the patient recognize his psychiatric and physical impairments. He has better impulse control and less depression and anxiety. Twenty minutes of insight-oriented psychotherapy. Chart was reviewed and discussed with staff. The patient was seen and assessed at bedside. Enrrique Escudero M.D. DR: Sofie JOB#: [id number] CC:
[2019-12-23 04:00] VITALS: BP 116/80
[2019-12-23] MEDS: NovoLOG Insulin Flexpen SUBQ SCH ×4 (05:44→21:00)
[2019-12-23 06:53] LABS: BASOPHILS % (AUTO) 1.5 % (0.0-2.0); EOSINOPHILS % (AUTO) 3.4 % (0.0-3.0); HEMATOCRIT 39.7 % (42.0-52.0); HEMOGLOBIN 12.7 G/DL (14.2-18.0); LYMPHOCYTES % (AUTO) 16.6 % (20.0-45.0); MEAN CORPUSCULAR VOLUME 67 FL (80-99); MONOCYTES % (AUTO) 10.8 % (1.0-10.0); NEUTROPHILS % (AUTO) 67.7 % (45.0-75.0); PLATELET COUNT 202 K/UL (150-450); RED CELL DISTRIBUTION WIDTH 13.4 % (11.6-14.8)
[2019-12-23 07:39] LABS: ALANINE AMINOTRANSFERASE 20 U/L (12-78); ALBUMIN 3.6 G/DL (3.4-5.0); ALBUMIN/GLOBULIN RATIO 0.9 (1.0-2.7); ALKALINE PHOSPHATASE 152 U/L (46-116); ANION GAP 14 mmol/L (5-15); ASPARTATE AMINO TRANSFERASE 25 U/L (15-37); BILIRUBIN,TOTAL 0.8 MG/DL (0.2-1.0); BLOOD UREA NITROGEN 8 mg/dL (7-18); CALCIUM 9.1 MG/DL (8.5-10.1); CARBON DIOXIDE 23 MMOL/L (21-32); CHLORIDE 107 MMOL/L (98-107); CREATININE 0.7 MG/DL (0.55-1.30); POTASSIUM 3.6 MMOL/L (3.5-5.1); SODIUM 144 MMOL/L (136-145)
[2019-12-23 08:00] VITALS: BP 122/73
--- NOTE | 2019-12-23 08:43 | General Progress Note ---
Assessment/Plan Problem List: (1) Fever ICD Codes: R50.9 - Fever, unspecified SNOMED: 871598448 (2) COPD (chronic obstructive pulmonary disease) ICD Codes: J44.9 - Chronic obstructive pulmonary disease, unspecified SNOMED: 30396535 (3) Parkinson disease ICD Codes: G20 - Parkinson's disease SNOMED: 41281467 (4) BPH (benign prostatic hyperplasia) ICD Codes: N40.0 - Benign prostatic hyperplasia without lower urinary tract symptoms SNOMED: 192673915 (5) UTI (urinary tract infection) ICD Codes: N39.0 - Urinary tract infection, site not specified SNOMED: 77832539 (6) Suspected COVID-19 virus infection ICD Codes: Z20.828 - Contact with and (suspected) exposure to other viral communicable diseases SNOMED: 533470074 (7) Hypertension ICD Codes: I10 - Hypertension SNOMED: 35151939 (8) ARF (acute renal failure) ICD Codes: N17.9 - Acute kidney failure, unspecified SNOMED: 52745287 (9) Schizophrenia ICD Codes: F20.9 - Schizophrenia, unspecified SNOMED: 70358071 (10) Seizure disorder ICD Codes: G40.909 - Epilepsy, unspecified, not intractable,without status epilepticus SNOMED: 088426212 Status: unchanged Assessment/Plan: o2 pulm tx abx pt diet cbc bmp am Subjective Constitutional: Reports: weakness Allergies: Coded Allergies: NO KNOWN DRUG ALLERGIES (Unverified Allergy, Unknown, 07/16/19) All Systems: reviewed and negative except above Subjective sleepy calm Objective Last 24 Hour Vital Signs Date Time Temp Pulse Resp B/P (MAP) Pulse Ox O2 Delivery O2 Flow Rate FiO2 12/23/19 08:00 96.3 92 19 122/73 (89) 100 12/23/19 04:00 96.8 90 19 116/80 (92) 97 12/22/19 20:24 97.3 99 16 106/73 (84) 95 12/22/19 20:13 Nasal Cannula 2.0 12/22/19 18:48 98 Nasal Cannula 2.0 28 12/22/19 18:48 91 16 98 Nasal Cannula 2.0 28 12/22/19 16:00 97.9 94 18 114/76 (89) 100 94 5/26/20 12:00 97.4 107 18 116/81 (93) 94 107 12/22/19 09:00 Nasal Cannula 2.0 Intake and Output 12/22/19 12/23/19 19:00 07:00 Intake Total 643.708 ml 1716.292 ml Output Total 800 ml Balance -156.292 ml 1716.292 ml Free Water 120 ml IV Total 583.708 ml 876.292 ml Tube Feeding 60 ml 720 ml Output Urine Total 800 ml Laboratory Tests 12/22/19 09:10: White Blood Count 6.4, Red Blood Count 5.87, Hemoglobin 12.6L, Hematocrit 39.5L , Mean Corpuscular Volume 67L, Mean Corpuscular Hemoglobin 21.4L, Mean Corpuscular Hemoglobin Concent 31.8L, Red Cell Distribution Width 13.4, Platelet Count 206, Mean Platelet Volume 9.5, Neutrophils (%) (Auto) 70.8, Lymphocytes (%) (Auto) 18.7L, Monocytes (%) (Auto) 6.2, Eosinophils (%) (Auto) 2.1, Basophils (%) (Auto) 2.2H, Sodium Level 144, Potassium Level 4.1, Chloride Level 109H, Carbon Dioxide Level 24, Anion Gap 11, Blood Urea Nitrogen 8, Creatinine 0.9, Estimat Glomerular Filtration Rate > 60, Glucose Level 113H, Calcium Level 9.2, Total Bilirubin 0.9, Aspartate Amino Transf (AST/SGOT) 22, Alanine Aminotransferase (ALT/SGPT) 18, Alkaline Phosphatase 153H, Total Protein 7.2, Albumin 3.6, Globulin 3.6, Albumin/Globulin Ratio 1.0, Vancomycin Level Trough 17.3H 12/23/19 05:00: White Blood Count 7.0, Red Blood Count 5.90, Hemoglobin 12.7L, Hematocrit 39.7L , Mean Corpuscular Volume 67L, Mean Corpuscular Hemoglobin 21.5L, Mean Corpuscular Hemoglobin Concent 31.9L, Red Cell Distribution Width 13.4, Platelet Count 202, Mean Platelet Volume 8.9, Neutrophils (%) (Auto) 67.7, Lymphocytes (%) (Auto) 16.6L, Monocytes (%) (Auto) 10.8H, Eosinophils (%) (Auto ) 3.4H, Basophils (%) (Auto) 1.5, Sodium Level 144, Potassium Level 3.6, Chloride Level 107, Carbon Dioxide Level 23, Anion Gap 14, Blood Urea Nitrogen 8 , Creatinine 0.7, Estimat Glomerular Filtration Rate > 60, Glucose Level 98, Calcium Level 9.1, Total Bilirubin 0.8, Aspartate Amino Transf (AST/SGOT) 25, Alanine Aminotransferase (ALT/SGPT) 20, Alkaline Phosphatase 152H, Total Protein 7.5, Albumin 3.6, Globulin 3.9, Albumin/Globulin Ratio 0.9L, Erythrocyte Sedimentation Rate [Pending], Phosphorus Level 3.0, Magnesium Level 2.2, C-Reactive Protein, Quantitative 1.7H Height (Feet): 6 Height (Inches): 2.00 Weight (Pounds): 160 General Appearance: lethargic EENT: normal ENT inspection Neck: normal alignment Cardiovascular: normal rate, regular rhythm Respiratory/Chest: no respiratory distress, no accessory muscle use Extremities: normal inspection Edema: no edema noted Arm (L), no edema noted Arm (R), no edema noted Leg (L), no edema noted Leg (R), no edema noted Pedal (L), no edema noted Pedal (R), no edema noted Generalized Skin: normal pigmentation Donaldo Johnson DO December 23, 2019 08:43
[2019-12-23] MEDS: Cefepime HCl 2 GM in D5W 110 ML IV SCH ×2 (08:49→21:24)
[2019-12-23] MEDS: Heparin 5000 units/ml inj SUBQ SCH ×2 (08:50→22:05)
--- NOTE | 2019-12-23 11:45 | Diagnostic Imaging Report ---
Indication: Cough Technique: One view of the chest Comparison: 12/22/2019 Findings: Lungs and pleural spaces are clear except for some perihilar atelectatic bands. Heart size is normal. No significant change Impression: No acute process
[2019-12-23 12:00] VITALS: BP 121/69
--- NOTE | 2019-12-23 15:22 | Pulmonology Progress Note ---
Subjective ROS Limited/Unobtainable: No Constitutional: Reports: no symptoms HEENT: Repors: no symptoms Allergies: Coded Allergies: NO KNOWN DRUG ALLERGIES (Unverified Allergy, Unknown, 07/16/19) All Systems: reviewed and negative except above Objective Last 24 Hour Vital Signs Date Time Temp Pulse Resp B/P (MAP) Pulse Ox O2 Delivery O2 Flow Rate FiO2 12/23/19 14:29 Nasal Cannula 2.0 12/23/19 12:00 97.7 116 19 121/69 (86) 97 12/23/19 09:00 Nasal Cannula 2.0 12/23/19 08:00 96.3 92 19 122/73 (89) 100 12/23/19 04:00 96.8 90 19 116/80 (92) 97 12/22/19 20:24 97.3 99 16 106/73 (84) 95 12/22/19 20:13 Nasal Cannula 2.0 12/22/19 18:48 98 Nasal Cannula 2.0 28 12/22/19 18:48 91 16 98 Nasal Cannula 2.0 28 12/22/19 16:00 97.9 94 18 114/76 (89) 100 94 Intake and Output 12/22/19 12/23/19 19:00 07:00 Intake Total 643.708 ml 1716.292 ml Output Total 800 ml Balance -156.292 ml 1716.292 ml Free Water 120 ml IV Total 583.708 ml 876.292 ml Tube Feeding 60 ml 720 ml Output Urine Total 800 ml General Appearance: cachetic HEENT: normocephalic, atraumatic Respiratory: chest wall non-tender, rhonchi - left, rhonchi - right Cardiovascular: normal peripheral pulses, normal rate Abdomen: normal bowel sounds, soft, non tender Genitourinary: normal external genitalia Extremities: no cyanosis Skin: no rash Lymphatic: no neck adenopathy Musculoskeletal: normal muscle bulk Microbiology Date/Time Source Procedure Growth Status 12/21/19 04:30 Blood Blood Culture - Preliminary Resulted 12/21/19 04:15 Blood Blood Culture - Preliminary Resulted 12/21/19 05:00 Nasal Nares - Final Complete 12/21/19 05:00 Nasal Nares - Final Complete 12/21/19 04:15 Nasal Nares MRSA Culture - Final NO METHICILLIN RESISTANT STAPH AUREUS... Complete 12/22/19 16:55 Indwelling Cath Urine Culture - Preliminary NO GROWTH Resulted 12/21/19 04:15 Rectum - Final NO CARBAPENEM-RESISTANT ENTEROBACTERI... Complete 12/21/19 04:15 Rectum VRE Culture - Final Enterococcus Faecalis - Vre Complete Laboratory Tests 12/23/19 05:00: White Blood Count 7.0, Red Blood Count 5.90, Hemoglobin 12.7L, Hematocrit 39.7L , Mean Corpuscular Volume 67L, Mean Corpuscular Hemoglobin 21.5L, Mean Corpuscular Hemoglobin Concent 31.9L, Red Cell Distribution Width 13.4, Platelet Count 202, Mean Platelet Volume 8.9, Neutrophils (%) (Auto) 67.7, Lymphocytes (%) (Auto) 16.6L, Monocytes (%) (Auto) 10.8H, Eosinophils (%) (Auto ) 3.4H, Basophils (%) (Auto) 1.5, Erythrocyte Sedimentation Rate 20, Sodium Level 144, Potassium Level 3.6, Chloride Level 107, Carbon Dioxide Level 23, Anion Gap 14, Blood Urea Nitrogen 8, Creatinine 0.7, Estimat Glomerular Filtration Rate > 60, Glucose Level 98, Calcium Level 9.1, Phosphorus Level 3.0 , Magnesium Level 2.2, Total Bilirubin 0.8, Aspartate Amino Transf (AST/SGOT) 25 , Alanine Aminotransferase (ALT/SGPT) 20, Alkaline Phosphatase 152H, C-Reactive Protein, Quantitative 1.7H, Total Protein 7.5, Albumin 3.6, Globulin 3.9, Albumin/Globulin Ratio 0.9L Current Medications Medications (Trade) Dose Ordered Sig/Monalisa Route PRN Reason Start Time Stop Time Status Last Admin Dose Admin Acetaminophen (Tylenol) 650 mg Q4H PRN ORAL T>100.5 12/21/19 08:30 01/20/20 08:29 Albuterol/ Ipratropium (Albuterol/ Ipratropium) 3 ml Q4H PRN HHN Shortness of Breath 12/21/19 08:30 12/26/19 08:29 Cefepime HCl 2 gm/ Dextrose 110 ml @ 220 mls/hr EVERY 12 HOURS IV 12/21/19 21:00 12/28/19 20:59 12/23/19 08:49 Dextrose (Dextrose 50%) 25 ml Q30M PRN IV Hypoglycemia 12/21/19 08:30 03/20/20 08:29 Dextrose (Dextrose 50%) 50 ml Q30M PRN IV Hypoglycemia 12/21/19 08:30 03/20/20 08:29 Finasteride (Proscar) 5 mg DAILY ORAL 12/21/19 09:30 03/20/20 09:29 12/23/19 08:48 Heparin Sodium (Porcine) (Heparin 5000 units/ml) 5,000 units EVERY 12 HOURS SUBQ 12/21/19 09:00 02/04/20 08:59 12/23/19 08:50 Insulin Aspart (NovoLOG) BEFORE MEALS AND HS SUBQ 12/21/19 11:30 03/20/20 11:29 12/23/19 13:04 Lorazepam (Ativan) 1 mg Q6H PRN GT For Anxiety 12/22/19 14:48 12/29/19 14:47 Nitroglycerin (Ntg) 0.4 mg Q5MIN X 3 DOSES PRN SL Prn Chest Pain 12/21/19 09:15 01/20/20 09:14 Ondansetron HCl (Zofran) 4 mg Q6H PRN IVP Nausea & Vomiting 12/21/19 08:30 01/20/20 08:29 Polyethylene Glycol (Miralax) 17 gm DAILYPRN PRN ORAL Constipation 12/21/19 08:30 01/20/20 08:29 Risperidone (RisperDAL) 1 mg DAILY GT 12/21/19 09:30 02/04/20 09:29 12/23/19 08:48 Sodium Chloride 1,000 ml @ 50 mls/hr Q20H IV 12/21/19 10:15 01/20/20 10:14 12/21/19 10:30 Temazepam (Restoril) 15 mg HSPRN PRN ORAL Insomnia 12/21/19 21:00 12/28/19 20:59 Vancomycin HCl (Vanco rx to dose) 1 ea DAILY PRN MISC . 12/21/19 09:15 01/20/20 09:14 Vancomycin HCl 1 gm/Dextrose 275 ml @ 183.708 mls/hr Q8HR@0200,1000,1800 IVPB 12/21/19 18:00 12/26/19 17:59 12/23/19 10:54 Assessment/Plan Problems: (1) Acute metabolic encephalopathy (2) COPD (chronic obstructive pulmonary disease) (3) Suspected COVID-19 virus infection (4) Diabetes (5) Parkinson disease (6) Feeding by G-tube (7) correction resident (8) OBS (organic brain syndrome) (9) Hypertension (10) BPH (benign prostatic hyperplasia) Assessment/Plan looks better check cultures iv abx check COVID tolerating feeding Gtube site care respiratory treatment sliding scale dvt prophylaxis check labs luc all meds reviewed. Lucie Gracia MD December 23, 2019 15:22
[2019-12-23 16:00] VITALS: BP 138/79
--- NOTE | 2019-12-23 17:30 | Progress Note ---
DATE: 12/23/2019 SUBJECTIVE: This is a 64-year-old male patient, still has some confusion, some disorganized thought process, and overall decline in cognition below his baseline. The reason why he was admitted to the hospital is secondary to respiratory insufficiency, diabetes, seizure disorder, , sepsis, CVA, rule out COVID-19 but he has also diagnosis of paranoid schizophrenia that is why daily psychiatric consultation requested. MENTAL STATUS EXAMINATION: This is a 64-year-old male. Appearance is disheveled. Attitude, irritable and agitated. Affect, guarded and restricted. Intellect poor. Mood, depressed and anxious. Motor activity, psychomotor agitation. Insight and judgment is poor. DIAGNOSIS: Paranoid schizophrenia with acute exacerbation. PLAN: Treat with Risperdal 1 mg per G-tube daily. A 20 minutes of cognitive behavioral therapy to help him identify his automatic negative thoughts and help him convert his negative thoughts to more positive thoughts to reduce depression, anxiety, mood lability. Chart was reviewed and discussed with staff. Enrrique Escudero M.D. DR: Divya JOB#: [id number] CC:
[2019-12-23] MEDS ORDERED: PRO-STAT LIQUID30 ML ORAL (19:28)
[2019-12-23] MEDS ORDERED: PRO-STAT LIQUID30 ML GT (19:28)
[2019-12-23] MEDS ORDERED: QUERCETIN DIHYDR1 GM GT (19:28)
[2019-12-23 20:00] VITALS: BP 131/59
[2019-12-24] VITALS: BP 99/69
[2019-12-24] MEDS: Vancomycin 1gm/D5W 275ml IVPB SCH ×6 (02:38→17:25)
[2019-12-24 04:00] VITALS: BP 105/63
[2019-12-24] MEDS: NovoLOG Insulin Flexpen SUBQ SCH ×4 (06:08→21:00)
[2019-12-24 06:20] LABS: BASOPHILS % (AUTO) 1.5 % (0.0-2.0); EOSINOPHILS % (AUTO) 1.3 % (0.0-3.0); HEMATOCRIT 39.6 % (42.0-52.0); HEMOGLOBIN 12.6 G/DL (14.2-18.0); MEAN CORPUSCULAR VOLUME 68 FL (80-99); MONOCYTES % (AUTO) 6.5 % (1.0-10.0); NEUTROPHILS % (AUTO) 82.7 % (45.0-75.0); PLATELET COUNT 218 K/UL (150-450); RED BLOOD COUNT 5.82 M/UL (4.70-6.10); RED CELL DISTRIBUTION WIDTH 13.6 % (11.6-14.8); WHITE BLOOD COUNT 11.6 K/UL (4.8-10.8)
[2019-12-24 06:57] LABS: ANION GAP 12 mmol/L (5-15); BLOOD UREA NITROGEN 14 mg/dL (7-18); CALCIUM 8.7 MG/DL (8.5-10.1); CARBON DIOXIDE 22 MMOL/L (21-32); CHLORIDE 107 MMOL/L (98-107); CREATININE 0.8 MG/DL (0.55-1.30); POTASSIUM 4.9 MMOL/L (3.5-5.1); SODIUM 140 MMOL/L (136-145)
[2019-12-24 08:00] VITALS: BP 131/74
[2019-12-24] MEDS: Cefepime HCl 2 GM in D5W 110 ML IV SCH ×2 (08:22→20:48)
[2019-12-24] MEDS: Heparin 5000 units/ml inj SUBQ SCH ×2 (08:23→20:46)
--- NOTE | 2019-12-24 12:23 | General Progress Note ---
Assessment/Plan Problem List: (1) Fever ICD Codes: R50.9 - Fever, unspecified SNOMED: 300750991 (2) COPD (chronic obstructive pulmonary disease) ICD Codes: J44.9 - Chronic obstructive pulmonary disease, unspecified SNOMED: 98036953 (3) Parkinson disease ICD Codes: G20 - Parkinson's disease SNOMED: 18512000 (4) BPH (benign prostatic hyperplasia) ICD Codes: N40.0 - Benign prostatic hyperplasia without lower urinary tract symptoms SNOMED: 546974239 (5) UTI (urinary tract infection) ICD Codes: N39.0 - Urinary tract infection, site not specified SNOMED: 24349198 (6) Suspected COVID-19 virus infection ICD Codes: Z20.828 - Contact with and (suspected) exposure to other viral communicable diseases SNOMED: 825503146 (7) Hypertension ICD Codes: I10 - Hypertension SNOMED: 07196729 (8) ARF (acute renal failure) ICD Codes: N17.9 - Acute kidney failure, unspecified SNOMED: 54665657 (9) Schizophrenia ICD Codes: F20.9 - Schizophrenia, unspecified SNOMED: 66642024 (10) Seizure disorder ICD Codes: G40.909 - Epilepsy, unspecified, not intractable,without status epilepticus SNOMED: 039420446 Status: unchanged Assessment/Plan: o2 pulm tx abx pt diet cbc bmp am Subjective Constitutional: Reports: weakness Allergies: Coded Allergies: NO KNOWN DRUG ALLERGIES (Unverified Allergy, Unknown, 07/16/19) All Systems: reviewed and negative except above Subjective sleepy calm Objective Last 24 Hour Vital Signs Date Time Temp Pulse Resp B/P (MAP) Pulse Ox O2 Delivery O2 Flow Rate FiO2 12/24/19 11:54 97.5 76 18 97 12/24/19 09:00 Nasal Cannula 2.0 12/24/19 08:00 97.9 103 20 131/74 (93) 96 12/24/19 04:00 97.8 88 16 105/63 (77) 96 12/24/19 00:00 98.8 98 18 99/69 (79) 95 12/23/19 21:00 Nasal Cannula 2.0 12/23/19 20:00 99.0 115 16 131/59 (83) 94 12/23/19 16:30 104 12/23/19 16:00 96.8 127 18 138/79 (98) 98 12/23/19 14:29 Nasal Cannula 2.0 Intake and Output 12/23/19 12/24/19 19:00 07:00 Intake Total 940 ml 2087.416 ml Output Total 1000 ml Balance -60 ml 2087.416 ml Free Water 350 ml 120 ml IV Total 50 ml 1187.416 ml Tube Feeding 540 ml 780 ml Output Urine Total 1000 ml Laboratory Tests 12/24/19 05:00: White Blood Count 11.6#H, Red Blood Count 5.82, Hemoglobin 12.6L, Hematocrit 39.6L, Mean Corpuscular Volume 68L, Mean Corpuscular Hemoglobin 21.7L, Mean Corpuscular Hemoglobin Concent 31.9L, Red Cell Distribution Width 13.6, Platelet Count 218, Mean Platelet Volume 7.8, Neutrophils (%) (Auto) 82.7H, Lymphocytes (%) (Auto) 8.0L, Monocytes (%) (Auto) 6.5, Eosinophils (%) (Auto) 1.3, Basophils (%) (Auto) 1.5, Sodium Level 140, Potassium Level 4.9, Chloride Level 107, Carbon Dioxide Level 22, Anion Gap 12, Blood Urea Nitrogen 14, Creatinine 0.8, Estimat Glomerular Filtration Rate > 60, Glucose Level 118H, Calcium Level 8.7 Height (Feet): 6 Height (Inches): 2.00 Weight (Pounds): 160 General Appearance: lethargic EENT: normal ENT inspection Neck: normal alignment Cardiovascular: normal rate, regular rhythm Respiratory/Chest: no respiratory distress, no accessory muscle use Extremities: normal inspection Skin: normal pigmentation Donaldo Johnson DO December 24, 2019 12:23
--- NOTE | 2019-12-24 12:59 | Pulmonology Progress Note ---
Subjective ROS Limited/Unobtainable: No Constitutional: Reports: no symptoms HEENT: Repors: no symptoms Allergies: Coded Allergies: NO KNOWN DRUG ALLERGIES (Unverified Allergy, Unknown, 07/16/19) All Systems: reviewed and negative except above Objective Last 24 Hour Vital Signs Date Time Temp Pulse Resp B/P (MAP) Pulse Ox O2 Delivery O2 Flow Rate FiO2 12/24/19 11:54 97.5 76 18 97 12/24/19 09:00 Nasal Cannula 2.0 12/24/19 08:00 97.9 103 20 131/74 (93) 96 12/24/19 04:00 97.8 88 16 105/63 (77) 96 12/24/19 00:00 98.8 98 18 99/69 (79) 95 12/23/19 21:00 Nasal Cannula 2.0 12/23/19 20:00 99.0 115 16 131/59 (83) 94 12/23/19 16:30 104 12/23/19 16:00 96.8 127 18 138/79 (98) 98 12/23/19 14:29 Nasal Cannula 2.0 Intake and Output 12/23/19 12/24/19 18:59 06:59 Intake Total 770 ml 2137.416 ml Output Total 1000 ml Balance -230 ml 2137.416 ml Free Water 230 ml 180 ml IV Total 1237.416 ml Tube Feeding 540 ml 720 ml Output Urine Total 1000 ml General Appearance: cachetic HEENT: normocephalic, atraumatic Respiratory: chest wall non-tender, rhonchi - left, rhonchi - right Cardiovascular: normal peripheral pulses, normal rate Abdomen: normal bowel sounds, soft, non tender Genitourinary: normal external genitalia Extremities: no cyanosis Skin: no rash Lymphatic: no neck adenopathy Musculoskeletal: normal muscle bulk Microbiology Date/Time Source Procedure Growth Status 12/22/19 11:20 Blood Blood Culture - Preliminary NO GROWTH AFTER 24 HOURS Resulted 12/22/19 11:10 Blood Blood Culture - Preliminary NO GROWTH AFTER 24 HOURS Resulted 12/21/19 17:00 Nasopharynx Coronavirus COVID-19 PCR ([facility]) - Final Complete 12/22/19 16:55 Indwelling Cath Urine Culture - Preliminary NO GROWTH AFTER 24 HOURS Resulted Laboratory Tests 12/24/19 05:00: White Blood Count 11.6#H, Red Blood Count 5.82, Hemoglobin 12.6L, Hematocrit 39.6L, Mean Corpuscular Volume 68L, Mean Corpuscular Hemoglobin 21.7L, Mean Corpuscular Hemoglobin Concent 31.9L, Red Cell Distribution Width 13.6, Platelet Count 218, Mean Platelet Volume 7.8, Neutrophils (%) (Auto) 82.7H, Lymphocytes (%) (Auto) 8.0L, Monocytes (%) (Auto) 6.5, Eosinophils (%) (Auto) 1.3, Basophils (%) (Auto) 1.5, Sodium Level 140, Potassium Level 4.9, Chloride Level 107, Carbon Dioxide Level 22, Anion Gap 12, Blood Urea Nitrogen 14, Creatinine 0.8, Estimat Glomerular Filtration Rate > 60, Glucose Level 118H, Calcium Level 8.7 Current Medications Medications (Trade) Dose Ordered Sig/Monalisa Route PRN Reason Start Time Stop Time Status Last Admin Dose Admin Acetaminophen (Tylenol) 650 mg Q4H PRN ORAL T>100.5 12/21/19 08:30 01/20/20 08:29 Albuterol/ Ipratropium (Albuterol/ Ipratropium) 3 ml Q4H PRN HHN Shortness of Breath 12/21/19 08:30 12/26/19 08:29 Cefepime HCl 2 gm/ Dextrose 110 ml @ 220 mls/hr EVERY 12 HOURS IV 12/21/19 21:00 12/28/19 20:59 12/24/19 08:22 Dextrose (Dextrose 50%) 25 ml Q30M PRN IV Hypoglycemia 12/21/19 08:30 03/20/20 08:29 Dextrose (Dextrose 50%) 50 ml Q30M PRN IV Hypoglycemia 12/21/19 08:30 03/20/20 08:29 Finasteride (Proscar) 5 mg DAILY ORAL 12/21/19 09:30 03/20/20 09:29 12/24/19 08:21 Heparin Sodium (Porcine) (Heparin 5000 units/ml) 5,000 units EVERY 12 HOURS SUBQ 12/21/19 09:00 02/04/20 08:59 12/24/19 08:23 Insulin Aspart (NovoLOG) BEFORE MEALS AND HS SUBQ 12/21/19 11:30 03/20/20 11:29 12/23/19 13:04 Lorazepam (Ativan) 1 mg Q6H PRN GT For Anxiety 12/22/19 14:48 12/29/19 14:47 Nitroglycerin (Ntg) 0.4 mg Q5MIN X 3 DOSES PRN SL Prn Chest Pain 12/21/19 09:15 01/20/20 09:14 Ondansetron HCl (Zofran) 4 mg Q6H PRN IVP Nausea & Vomiting 12/21/19 08:30 01/20/20 08:29 Polyethylene Glycol (Miralax) 17 gm DAILYPRN PRN ORAL Constipation 12/21/19 08:30 01/20/20 08:29 Risperidone (RisperDAL) 1 mg DAILY GT 12/21/19 09:30 02/04/20 09:29 12/24/19 08:21 Sodium Chloride 1,000 ml @ 50 mls/hr Q20H IV 12/21/19 10:15 01/20/20 10:14 12/23/19 21:24 Temazepam (Restoril) 15 mg HSPRN PRN ORAL Insomnia 12/21/19 21:00 12/28/19 20:59 Vancomycin HCl (Vanco rx to dose) 1 ea DAILY PRN MISC . 12/21/19 09:15 01/20/20 09:14 Vancomycin HCl 1 gm/Dextrose 275 ml @ 183.708 mls/hr Q8HR@0200,1000,1800 IVPB 12/21/19 18:00 12/26/19 17:59 12/24/19 10:25 Assessment/Plan Problems: (1) Acute metabolic encephalopathy (2) COPD (chronic obstructive pulmonary disease) (3) Suspected COVID-19 virus infection (4) Diabetes (5) Parkinson disease (6) Feeding by G-tube (7) alf resident (8) OBS (organic brain syndrome) (9) Hypertension (10) BPH (benign prostatic hyperplasia) Assessment/Plan looks better check cultures iv abx check COVID, one test is negative tolerating feeding Gtube site care respiratory treatment sliding scale dvt prophylaxis check labs luc all meds reviewed. Lucie Gracia MD December 24, 2019 12:59
--- NOTE | 2019-12-24 13:45 | Infectious Diseases Prog Note ---
Assessment/Plan Assessment/Plan Assessment: Sepsis- ?source CONS bacteremia-likely contaminant -12/20 Bcx 2/ CONS; 12/21 BCx NTD Low grade fever,SP- No obvious PNA on CXR Mild leukocytosis -12/22 CXR: No acute process -12/20 CXR: Low lung volume with resultant bronchovascular crowding. No focal consolidation. Mild interstitial pulmonary edema cannot be excluded. Nonspecific prominent air-filled loops of bowel of the partially visualized abdomen. -Influenza PCR neg -u/a no pyuria; ux NTD Lactic acidosis, SP Recent COVID19 pneumonia (dx 11/19) -12/20 SARS-COV2 PCR neg Dm2 HTN seizure disorder dysphagia s/p GT decubitus ulcer FTT cerebral palsy COPD CVA/TIA paranoid schizophrenia non verbal SNF resident (Zaria Good) Plan: -Continue empiric IV Vancomycin and Cefepime #10/31 -12/20 SP Levaquin x1 -f/u cx -Monitor CBC/CMP, temperature -COVID19 isolation and testing; 1st repeat COVID neg; will order 2nd for removal of isolation -f/u repeat Bcx x2 Thank you for consulting [facility]. Will continue to follow along with you. Subjective Allergies: Coded Allergies: NO KNOWN DRUG ALLERGIES (Unverified Allergy, Unknown, 07/16/19) Subjective afebrile >72hrs at 2l NC mild leukocytosis repaet Bcx NTD Objective Vital Signs Last 24 Hour Vital Signs Date Time Temp Pulse Resp B/P (MAP) Pulse Ox O2 Delivery O2 Flow Rate FiO2 12/24/19 11:54 97.5 76 18 97 12/24/19 09:00 Nasal Cannula 2.0 12/24/19 08:00 97.9 103 20 131/74 (93) 96 12/24/19 04:00 97.8 88 16 105/63 (77) 96 12/24/19 00:00 98.8 98 18 99/69 (79) 95 12/23/19 21:00 Nasal Cannula 2.0 12/23/19 20:00 99.0 115 16 131/59 (83) 94 12/23/19 16:30 104 12/23/19 16:00 96.8 127 18 138/79 (98) 98 12/23/19 14:29 Nasal Cannula 2.0 Height (Feet): 6 Height (Inches): 2.00 Weight (Pounds): 160 Objective GEn:no distress Head: atraumatic Lungs: no use of accessory muscle., no tachypnea Abd: not distended Microbiology Date/Time Source Procedure Growth Status 12/22/19 11:20 Blood Blood Culture - Preliminary NO GROWTH AFTER 24 HOURS Resulted 12/22/19 11:10 Blood Blood Culture - Preliminary NO GROWTH AFTER 24 HOURS Resulted 12/21/19 17:00 Nasopharynx Coronavirus COVID-19 PCR ([facility]) - Final Complete 12/22/19 16:55 Indwelling Cath Urine Culture - Preliminary NO GROWTH AFTER 24 HOURS Resulted Laboratory Tests Test 12/24/19 05:00 White Blood Count 11.6 K/UL (4.8-10.8) #H Red Blood Count 5.82 M/UL (4.70-6.10) Hemoglobin 12.6 G/DL (14.2-18.0) L Hematocrit 39.6 % (42.0-52.0) L Mean Corpuscular Volume 68 FL (80-99) L Mean Corpuscular Hemoglobin 21.7 PG (27.0-31.0) L Mean Corpuscular Hemoglobin Concent 31.9 G/DL (32.0-36.0) L Red Cell Distribution Width 13.6 % (11.6-14.8) Platelet Count 218 K/UL (150-450) Mean Platelet Volume 7.8 FL (6.5-10.1) Neutrophils (%) (Auto) 82.7 % (45.0-75.0) H Lymphocytes (%) (Auto) 8.0 % (20.0-45.0) L Monocytes (%) (Auto) 6.5 % (1.0-10.0) Eosinophils (%) (Auto) 1.3 % (0.0-3.0) Basophils (%) (Auto) 1.5 % (0.0-2.0) Sodium Level 140 MMOL/L (136-145) Potassium Level 4.9 MMOL/L (3.5-5.1) Chloride Level 107 MMOL/L (98-107) Carbon Dioxide Level 22 MMOL/L (21-32) Anion Gap 12 mmol/L (5-15) Blood Urea Nitrogen 14 mg/dL (7-18) Creatinine 0.8 MG/DL (0.55-1.30) Estimat Glomerular Filtration Rate > 60 mL/min (>60) Glucose Level 118 MG/DL (74-106) H Calcium Level 8.7 MG/DL (8.5-10.1) Current Medications Medications (Trade) Dose Ordered Sig/Monalisa Route PRN Reason Start Time Stop Time Status Last Admin Dose Admin Acetaminophen (Tylenol) 650 mg Q4H PRN ORAL T>100.5 12/21/19 08:30 01/20/20 08:29 Albuterol/ Ipratropium (Albuterol/ Ipratropium) 3 ml Q4H PRN HHN Shortness of Breath 12/21/19 08:30 12/26/19 08:29 Cefepime HCl 2 gm/ Dextrose 110 ml @ 220 mls/hr EVERY 12 HOURS IV 12/21/19 21:00 12/28/19 20:59 12/24/19 08:22 Dextrose (Dextrose 50%) 25 ml Q30M PRN IV Hypoglycemia 12/21/19 08:30 03/20/20 08:29 Dextrose (Dextrose 50%) 50 ml Q30M PRN IV Hypoglycemia 12/21/19 08:30 03/20/20 08:29 Finasteride (Proscar) 5 mg DAILY ORAL 12/21/19 09:30 03/20/20 09:29 12/24/19 08:21 Heparin Sodium (Porcine) (Heparin 5000 units/ml) 5,000 units EVERY 12 HOURS SUBQ 12/21/19 09:00 02/04/20 08:59 12/24/19 08:23 Insulin Aspart (NovoLOG) BEFORE MEALS AND HS SUBQ 12/21/19 11:30 03/20/20 11:29 12/23/19 13:04 Lorazepam (Ativan) 1 mg Q6H PRN GT For Anxiety 12/22/19 14:48 12/29/19 14:47 Nitroglycerin (Ntg) 0.4 mg Q5MIN X 3 DOSES PRN SL Prn Chest Pain 12/21/19 09:15 01/20/20 09:14 Ondansetron HCl (Zofran) 4 mg Q6H PRN IVP Nausea & Vomiting 12/21/19 08:30 01/20/20 08:29 Polyethylene Glycol (Miralax) 17 gm DAILYPRN PRN ORAL Constipation 12/21/19 08:30 01/20/20 08:29 Risperidone (RisperDAL) 1 mg DAILY GT 12/21/19 09:30 02/04/20 09:29 12/24/19 08:21 Sodium Chloride 1,000 ml @ 50 mls/hr Q20H IV 12/21/19 10:15 01/20/20 10:14 12/23/19 21:24 Temazepam (Restoril) 15 mg HSPRN PRN ORAL Insomnia 12/21/19 21:00 12/28/19 20:59 Vancomycin HCl (Vanco rx to dose) 1 ea DAILY PRN MISC . 12/21/19 09:15 01/20/20 09:14 Vancomycin HCl 1 gm/Dextrose 275 ml @ 183.708 mls/hr Q8HR@0200,1000,1800 IVPB 12/21/19 18:00 12/26/19 17:59 12/24/19 10:25 Dilma Chand M.D. December 24, 2019 13:45
[2019-12-24 16:25] VITALS: BP 95/63
[2019-12-24 16:49] VITALS: BP 130/95
[2019-12-24 20:00] VITALS: BP 113/69
--- NOTE | 2019-12-24 20:30 | Progress Note ---
DATE: 12/24/2019 SUBJECTIVE: This is a 64-year-old male patient who has COVID positive sepsis. He has confusion, altered mental status, decline in cognition below his baseline. That is why, his attending has requested daily psychiatric consultation for this patient. MENTAL STATUS EXAMINATION: This is a 64-year-old male. Appearance is disheveled. Attitude, irritable and agitated. Affect, guarded and restricted. Intellect poor. Mood, depressed and anxious. Motor activity, psychomotor agitation. Attention span is poor. Orientation x2. Speech is low volume, slurred. Thought process, disorganized and illogical. Insight and judgment is poor. DIAGNOSIS: Major depressive disorder, severe, recurrent with psychotic features, rule out bipolar 2. PLAN: For this patient is to treat him with a psychotropic medication regimen consisting of Risperdal 1 mg per G-tube daily and Ativan 1 mg every 6 hours p.r.n. anxiety and agitation. Twenty minutes of reality-based supportive psychotherapy. Chart reviewed. Discussed with staff. Seen and assessed at bedside. Enrrique Escudero M.D. DR: VANITA JOB#: [id number] CC:
[2019-12-25] VITALS (7 sets, daily range): BP systolic 109–127; BP diastolic 60–77
[2019-12-25] MEDS: Vancomycin 1gm/D5W 275ml IVPB SCH ×6 (02:00→18:17)
[2019-12-25 05:31] LABS: BASOPHILS % (AUTO) 1.7 % (0.0-2.0); EOSINOPHILS % (AUTO) 3.5 % (0.0-3.0); HEMOGLOBIN 12.2 G/DL (14.2-18.0); LYMPHOCYTES % (AUTO) 16.4 % (20.0-45.0); MEAN CORPUSCULAR VOLUME 67 FL (80-99); MONOCYTES % (AUTO) 7.7 % (1.0-10.0); NEUTROPHILS % (AUTO) 70.7 % (45.0-75.0); PLATELET COUNT 219 K/UL (150-450); RED BLOOD COUNT 5.64 M/UL (4.70-6.10); RED CELL DISTRIBUTION WIDTH 13.4 % (11.6-14.8)
[2019-12-25 06:19] LABS: PHOSPHORUS 3.2 MG/DL (2.5-4.9)
[2019-12-25 06:23] LABS: ALANINE AMINOTRANSFERASE 18 U/L (12-78); ALBUMIN 3.1 G/DL (3.4-5.0); ALBUMIN/GLOBULIN RATIO 0.8 (1.0-2.7); ALKALINE PHOSPHATASE 154 U/L (46-116); ANION GAP 10 mmol/L (5-15); ASPARTATE AMINO TRANSFERASE 24 U/L (15-37); BILIRUBIN,TOTAL 0.3 MG/DL (0.2-1.0); BLOOD UREA NITROGEN 10 mg/dL (7-18); CALCIUM 8.9 MG/DL (8.5-10.1); CARBON DIOXIDE 23 MMOL/L (21-32); CHLORIDE 107 MMOL/L (98-107); CREATININE 0.7 MG/DL (0.55-1.30); POTASSIUM 4.5 MMOL/L (3.5-5.1); SODIUM 140 MMOL/L (136-145)
[2019-12-25] MEDS: NovoLOG Insulin Flexpen SUBQ SCH ×4 (06:30→20:41)
[2019-12-25] MEDS: Miralax 17gm pkt ORAL PRN (06:55)
[2019-12-25] MEDS: Cefepime HCl 2 GM in D5W 110 ML IV SCH ×2 (09:20→20:31)
[2019-12-25] MEDS: Heparin 5000 units/ml inj SUBQ SCH ×2 (09:20→20:41)
--- NOTE | 2019-12-25 09:21 | General Progress Note ---
Assessment/Plan Problem List: (1) Fever ICD Codes: R50.9 - Fever, unspecified SNOMED: 169661661 (2) COPD (chronic obstructive pulmonary disease) ICD Codes: J44.9 - Chronic obstructive pulmonary disease, unspecified SNOMED: 27081048 (3) Parkinson disease ICD Codes: G20 - Parkinson's disease SNOMED: 64080507 (4) BPH (benign prostatic hyperplasia) ICD Codes: N40.0 - Benign prostatic hyperplasia without lower urinary tract symptoms SNOMED: 119604048 (5) UTI (urinary tract infection) ICD Codes: N39.0 - Urinary tract infection, site not specified SNOMED: 70736317 (6) Suspected COVID-19 virus infection ICD Codes: Z20.828 - Contact with and (suspected) exposure to other viral communicable diseases SNOMED: 921246591 (7) Hypertension ICD Codes: I10 - Hypertension SNOMED: 03343664 (8) ARF (acute renal failure) ICD Codes: N17.9 - Acute kidney failure, unspecified SNOMED: 56496580 (9) Schizophrenia ICD Codes: F20.9 - Schizophrenia, unspecified SNOMED: 62883760 (10) Seizure disorder ICD Codes: G40.909 - Epilepsy, unspecified, not intractable,without status epilepticus SNOMED: 683552954 Status: unchanged Assessment/Plan: o2 pulm tx abx pt diet cbc bmp am Subjective Allergies: Coded Allergies: NO KNOWN DRUG ALLERGIES (Unverified Allergy, Unknown, 07/16/19) All Systems: reviewed and negative except above Subjective sleepy calm Objective Last 24 Hour Vital Signs Date Time Temp Pulse Resp B/P (MAP) Pulse Ox O2 Delivery O2 Flow Rate FiO2 12/25/19 08:00 98.1 95 20 117/77 (90) 100 12/25/19 04:00 97.3 100 20 109/73 (85) 100 12/25/19 00:00 97.7 112 24 109/67 (81) 98 12/24/19 21:00 Nasal Cannula 2.0 12/24/19 20:18 97 Nasal Cannula 2.0 28 12/24/19 20:18 94 18 97 Nasal Cannula 2.0 28 12/24/19 20:00 97.0 104 20 113/69 (84) 99 12/24/19 16:49 96 130/95 (107) 12/24/19 16:25 98.4 109 19 95/63 (74) 100 12/24/19 11:54 97.5 76 18 97 Intake and Output 12/24/19 12/25/19 19:00 07:00 Intake Total 1665.000 ml 1917.416 ml Output Total 1450 ml 500 ml Balance 215.000 ml 1417.416 ml Free Water 210 ml 120 ml IV Total 735.000 ml 1137.416 ml Tube Feeding 720 ml 660 ml Output Urine Total 1450 ml 500 ml Laboratory Tests 12/25/19 05:00: White Blood Count 7.0, Red Blood Count 5.64, Hemoglobin 12.2L, Hematocrit 38.0L , Mean Corpuscular Volume 67L, Mean Corpuscular Hemoglobin 21.6L, Mean Corpuscular Hemoglobin Concent 32.0, Red Cell Distribution Width 13.4, Platelet Count 219, Mean Platelet Volume 9.4, Neutrophils (%) (Auto) 70.7, Lymphocytes (% ) (Auto) 16.4L, Monocytes (%) (Auto) 7.7, Eosinophils (%) (Auto) 3.5H, Basophils (%) (Auto) 1.7, Erythrocyte Sedimentation Rate 14, Sodium Level 140, Potassium Level 4.5, Chloride Level 107, Carbon Dioxide Level 23, Anion Gap 10, Blood Urea Nitrogen 10, Creatinine 0.7, Estimat Glomerular Filtration Rate > 60 , Glucose Level 118H, Calcium Level 8.9, Phosphorus Level 3.2, Magnesium Level 2.2, Total Bilirubin 0.3, Aspartate Amino Transf (AST/SGOT) 24, Alanine Aminotransferase (ALT/SGPT) 18, Alkaline Phosphatase 154H, C-Reactive Protein, Quantitative 2.6H, Total Protein 7.0, Albumin 3.1L, Globulin 3.9, Albumin/ Globulin Ratio 0.8L Height (Feet): 6 Height (Inches): 2.00 Weight (Pounds): 160 General Appearance: lethargic EENT: normal ENT inspection Neck: normal alignment Cardiovascular: normal rate, regular rhythm Respiratory/Chest: no respiratory distress, no accessory muscle use Extremities: normal inspection Skin: normal pigmentation Donaldo Johnson DO December 25, 2019 09:21
--- NOTE | 2019-12-25 10:15 | Progress Note ---
DATE: 12/25/2019 SUBJECTIVE: The patient is a 64-year-old male. He has sepsis, rule out COVID-19. He is still confused, disorganized anxiety, and altered mental status. MENTAL STATUS EXAMINATION: This is a 64-year-old male. Appearance is disheveled. Attitude, irritable and agitated. Affect, guarded and restricted. Intellect poor. Mood, depressed and anxious. Motor activity, psychomotor agitation. Insight and judgment are poor. DIAGNOSIS: Paranoid schizophrenia with acute exacerbation, rule out depression with psychotic features. PLAN: Continue titrating up on this patient's antipsychotic medications to stabilize his mood. Twenty minutes of insight-oriented psychotherapy will help this patient to improve his understanding of his medical and psychiatric condition so he has better impulse control and behavior on the unit and to reduce depression and anxiety. Chart was reviewed. Discussed with staff. The patient was seen and assessed in his room. Enrrique Escudero M.D. DR: ANGELI JOB#: [id number] CC:
--- NOTE | 2019-12-25 15:20 | Pulmonology Progress Note ---
Subjective ROS Limited/Unobtainable: No Constitutional: Reports: no symptoms HEENT: Repors: no symptoms Allergies: Coded Allergies: NO KNOWN DRUG ALLERGIES (Unverified Allergy, Unknown, 07/16/19) All Systems: reviewed and negative except above Objective Last 24 Hour Vital Signs Date Time Temp Pulse Resp B/P (MAP) Pulse Ox O2 Delivery O2 Flow Rate FiO2 12/25/19 12:00 98.3 96 19 122/73 (89) 100 12/25/19 09:00 Nasal Cannula 2.0 12/25/19 08:00 98.1 95 20 117/77 (90) 100 12/25/19 04:00 97.3 100 20 109/73 (85) 100 12/25/19 00:00 97.7 112 24 109/67 (81) 98 12/24/19 21:00 Nasal Cannula 2.0 12/24/19 20:18 97 Nasal Cannula 2.0 28 12/24/19 20:18 94 18 97 Nasal Cannula 2.0 28 12/24/19 20:00 97.0 104 20 113/69 (84) 99 12/24/19 16:49 96 130/95 (107) 12/24/19 16:25 98.4 109 19 95/63 (74) 100 Intake and Output 12/24/19 12/25/19 19:00 07:00 Intake Total 1665.000 ml 1917.416 ml Output Total 1450 ml 500 ml Balance 215.000 ml 1417.416 ml Free Water 210 ml 120 ml IV Total 735.000 ml 1137.416 ml Tube Feeding 720 ml 660 ml Output Urine Total 1450 ml 500 ml General Appearance: cachetic HEENT: normocephalic, atraumatic Respiratory: chest wall non-tender, rhonchi - left, rhonchi - right Cardiovascular: normal peripheral pulses, normal rate Abdomen: normal bowel sounds, soft, non tender Genitourinary: normal external genitalia Extremities: no cyanosis Skin: no rash Lymphatic: no neck adenopathy Musculoskeletal: normal muscle bulk Microbiology Date/Time Source Procedure Growth Status 12/22/19 16:55 Indwelling Cath Urine Culture - Final NO GROWTH AFTER 48 HOURS Complete Laboratory Tests 12/25/19 05:00: White Blood Count 7.0, Red Blood Count 5.64, Hemoglobin 12.2L, Hematocrit 38.0L , Mean Corpuscular Volume 67L, Mean Corpuscular Hemoglobin 21.6L, Mean Corpuscular Hemoglobin Concent 32.0, Red Cell Distribution Width 13.4, Platelet Count 219, Mean Platelet Volume 9.4, Neutrophils (%) (Auto) 70.7, Lymphocytes (% ) (Auto) 16.4L, Monocytes (%) (Auto) 7.7, Eosinophils (%) (Auto) 3.5H, Basophils (%) (Auto) 1.7, Erythrocyte Sedimentation Rate 14, Sodium Level 140, Potassium Level 4.5, Chloride Level 107, Carbon Dioxide Level 23, Anion Gap 10, Blood Urea Nitrogen 10, Creatinine 0.7, Estimat Glomerular Filtration Rate > 60 , Glucose Level 118H, Calcium Level 8.9, Phosphorus Level 3.2, Magnesium Level 2.2, Total Bilirubin 0.3, Aspartate Amino Transf (AST/SGOT) 24, Alanine Aminotransferase (ALT/SGPT) 18, Alkaline Phosphatase 154H, C-Reactive Protein, Quantitative 2.6H, Total Protein 7.0, Albumin 3.1L, Globulin 3.9, Albumin/ Globulin Ratio 0.8L Current Medications Medications (Trade) Dose Ordered Sig/Monalisa Route PRN Reason Start Time Stop Time Status Last Admin Dose Admin Acetaminophen (Tylenol) 650 mg Q4H PRN ORAL T>100.5 12/21/19 08:30 01/20/20 08:29 Albuterol/ Ipratropium (Albuterol/ Ipratropium) 3 ml Q4H PRN HHN Shortness of Breath 12/21/19 08:30 12/26/19 08:29 Cefepime HCl 2 gm/ Dextrose 110 ml @ 220 mls/hr EVERY 12 HOURS IV 12/21/19 21:00 12/28/19 20:59 12/25/19 09:20 Dextrose (Dextrose 50%) 25 ml Q30M PRN IV Hypoglycemia 12/21/19 08:30 03/20/20 08:29 Dextrose (Dextrose 50%) 50 ml Q30M PRN IV Hypoglycemia 12/21/19 08:30 03/20/20 08:29 Finasteride (Proscar) 5 mg DAILY ORAL 12/21/19 09:30 03/20/20 09:29 12/25/19 09:20 Heparin Sodium (Porcine) (Heparin 5000 units/ml) 5,000 units EVERY 12 HOURS SUBQ 12/21/19 09:00 02/04/20 08:59 12/25/19 09:20 Insulin Aspart (NovoLOG) BEFORE MEALS AND HS SUBQ 12/21/19 11:30 03/20/20 11:29 12/23/19 13:04 Lorazepam (Ativan) 1 mg Q6H PRN GT For Anxiety 12/22/19 14:48 12/29/19 14:47 Nitroglycerin (Ntg) 0.4 mg Q5MIN X 3 DOSES PRN SL Prn Chest Pain 12/21/19 09:15 01/20/20 09:14 Ondansetron HCl (Zofran) 4 mg Q6H PRN IVP Nausea & Vomiting 12/21/19 08:30 01/20/20 08:29 Polyethylene Glycol (Miralax) 17 gm DAILYPRN PRN ORAL Constipation 12/21/19 08:30 01/20/20 08:29 12/25/19 06:55 Risperidone (RisperDAL) 1 mg DAILY GT 12/21/19 09:30 02/04/20 09:29 12/25/19 09:20 Sodium Chloride 1,000 ml @ 50 mls/hr Q20H IV 12/21/19 10:15 01/20/20 10:14 12/24/19 15:59 Temazepam (Restoril) 15 mg HSPRN PRN ORAL Insomnia 12/21/19 21:00 12/28/19 20:59 Vancomycin HCl (Vanco rx to dose) 1 ea DAILY PRN MISC . 12/21/19 09:15 01/20/20 09:14 Vancomycin HCl 1 gm/Dextrose 275 ml @ 183.708 mls/hr Q8HR@0200,1000,1800 IVPB 12/21/19 18:00 12/26/19 17:59 12/25/19 10:27 Assessment/Plan Problems: (1) Acute metabolic encephalopathy (2) COPD (chronic obstructive pulmonary disease) (3) Suspected COVID-19 virus infection (4) Diabetes (5) Parkinson disease (6) Feeding by G-tube (7) [facility] resident (8) OBS (organic brain syndrome) (9) Hypertension (10) BPH (benign prostatic hyperplasia) Assessment/Plan looks better check cultures iv abx check COVID, one test is negative tolerating feeding Gtube site care respiratory treatment sliding scale dvt prophylaxis check labs luc all notes reviewed Lucie Gracia MD December 25, 2019 15:20
--- NOTE | 2019-12-25 17:14 | Infectious Diseases Prog Note ---
Assessment/Plan Assessment/Plan Assessment: Sepsis- ?source CONS bacteremia-likely contaminant -12/20 Bcx 2/ CONS; 12/21 BCx NTD Low grade fever,SP- No obvious PNA on CXR Mild leukocytosis, SP -12/22 CXR: No acute process -12/20 CXR: Low lung volume with resultant bronchovascular crowding. No focal consolidation. Mild interstitial pulmonary edema cannot be excluded. Nonspecific prominent air-filled loops of bowel of the partially visualized abdomen. -Influenza PCR neg -u/a no pyuria; ux NTD Lactic acidosis, SP Recent COVID19 pneumonia (dx 11/19) -12/20 SARS-COV2 PCR neg Dm2 HTN seizure disorder dysphagia s/p GT decubitus ulcer FTT cerebral palsy COPD CVA/TIA paranoid schizophrenia non verbal SNF resident (Zaria Good) Plan: -Continue empiric IV Vancomycin and Cefepime #11/30 -12/20 SP Levaquin x1 -f/u cx -Monitor CBC/CMP, temperature -COVID19 isolation and testing; 1st repeat COVID neg; will order 2nd for removal of isolation -f/u repeat Bcx x2 Thank you for consulting [facility]. Will continue to follow along with you. Subjective Allergies: Coded Allergies: NO KNOWN DRUG ALLERGIES (Unverified Allergy, Unknown, 07/16/19) Subjective afebrile at 2l NC mild leukocytosis resolved repaet Bcx NTD Objective Vital Signs Last 24 Hour Vital Signs Date Time Temp Pulse Resp B/P (MAP) Pulse Ox O2 Delivery O2 Flow Rate FiO2 12/25/19 12:00 98.3 96 19 122/73 (89) 100 12/25/19 09:00 Nasal Cannula 2.0 12/25/19 08:00 98.1 95 20 117/77 (90) 100 12/25/19 04:00 97.3 100 20 109/73 (85) 100 12/25/19 00:00 97.7 112 24 109/67 (81) 98 12/24/19 21:00 Nasal Cannula 2.0 12/24/19 20:18 97 Nasal Cannula 2.0 28 12/24/19 20:18 94 18 97 Nasal Cannula 2.0 28 12/24/19 20:00 97.0 104 20 113/69 (84) 99 Height (Feet): 6 Height (Inches): 2.00 Weight (Pounds): 160 Objective GEn:no distress Head: atraumatic Lungs: no use of accessory muscle., no tachypnea Abd: not distended Laboratory Tests Test 12/25/19 05:00 White Blood Count 7.0 K/UL (4.8-10.8) Red Blood Count 5.64 M/UL (4.70-6.10) Hemoglobin 12.2 G/DL (14.2-18.0) L Hematocrit 38.0 % (42.0-52.0) L Mean Corpuscular Volume 67 FL (80-99) L Mean Corpuscular Hemoglobin 21.6 PG (27.0-31.0) L Mean Corpuscular Hemoglobin Concent 32.0 G/DL (32.0-36.0) Red Cell Distribution Width 13.4 % (11.6-14.8) Platelet Count 219 K/UL (150-450) Mean Platelet Volume 9.4 FL (6.5-10.1) Neutrophils (%) (Auto) 70.7 % (45.0-75.0) Lymphocytes (%) (Auto) 16.4 % (20.0-45.0) L Monocytes (%) (Auto) 7.7 % (1.0-10.0) Eosinophils (%) (Auto) 3.5 % (0.0-3.0) H Basophils (%) (Auto) 1.7 % (0.0-2.0) Erythrocyte Sedimentation Rate 14 MM/HR (0-20) Sodium Level 140 MMOL/L (136-145) Potassium Level 4.5 MMOL/L (3.5-5.1) Chloride Level 107 MMOL/L (98-107) Carbon Dioxide Level 23 MMOL/L (21-32) Anion Gap 10 mmol/L (5-15) Blood Urea Nitrogen 10 mg/dL (7-18) Creatinine 0.7 MG/DL (0.55-1.30) Estimat Glomerular Filtration Rate > 60 mL/min (>60) Glucose Level 118 MG/DL (74-106) H Calcium Level 8.9 MG/DL (8.5-10.1) Phosphorus Level 3.2 MG/DL (2.5-4.9) Magnesium Level 2.2 MG/DL (1.8-2.4) Total Bilirubin 0.3 MG/DL (0.2-1.0) Aspartate Amino Transf (AST/SGOT) 24 U/L (15-37) Alanine Aminotransferase (ALT/SGPT) 18 U/L (12-78) Alkaline Phosphatase 154 U/L (46-116) H C-Reactive Protein, Quantitative 2.6 mg/dL (0.00-0.90) H Total Protein 7.0 G/DL (6.4-8.2) Albumin 3.1 G/DL (3.4-5.0) L Globulin 3.9 g/dL Albumin/Globulin Ratio 0.8 (1.0-2.7) L Current Medications Medications (Trade) Dose Ordered Sig/Monalisa Route PRN Reason Start Time Stop Time Status Last Admin Dose Admin Acetaminophen (Tylenol) 650 mg Q4H PRN ORAL T>100.5 12/21/19 08:30 01/20/20 08:29 Albuterol/ Ipratropium (Albuterol/ Ipratropium) 3 ml Q4H PRN HHN Shortness of Breath 12/21/19 08:30 12/26/19 08:29 Cefepime HCl 2 gm/ Dextrose 110 ml @ 220 mls/hr EVERY 12 HOURS IV 12/21/19 21:00 12/28/19 20:59 12/25/19 09:20 Dextrose (Dextrose 50%) 25 ml Q30M PRN IV Hypoglycemia 12/21/19 08:30 03/20/20 08:29 Dextrose (Dextrose 50%) 50 ml Q30M PRN IV Hypoglycemia 12/21/19 08:30 03/20/20 08:29 Finasteride (Proscar) 5 mg DAILY ORAL 12/21/19 09:30 03/20/20 09:29 12/25/19 09:20 Heparin Sodium (Porcine) (Heparin 5000 units/ml) 5,000 units EVERY 12 HOURS SUBQ 12/21/19 09:00 02/04/20 08:59 12/25/19 09:20 Insulin Aspart (NovoLOG) BEFORE MEALS AND HS SUBQ 12/21/19 11:30 03/20/20 11:29 12/23/19 13:04 Lorazepam (Ativan) 1 mg Q6H PRN GT For Anxiety 12/22/19 14:48 12/29/19 14:47 Nitroglycerin (Ntg) 0.4 mg Q5MIN X 3 DOSES PRN SL Prn Chest Pain 12/21/19 09:15 01/20/20 09:14 Ondansetron HCl (Zofran) 4 mg Q6H PRN IVP Nausea & Vomiting 12/21/19 08:30 01/20/20 08:29 Polyethylene Glycol (Miralax) 17 gm DAILYPRN PRN ORAL Constipation 12/21/19 08:30 01/20/20 08:29 12/25/19 06:55 Risperidone (RisperDAL) 1 mg DAILY GT 12/21/19 09:30 02/04/20 09:29 12/25/19 09:20 Sodium Chloride 1,000 ml @ 50 mls/hr Q20H IV 12/21/19 10:15 01/20/20 10:14 12/25/19 15:22 Temazepam (Restoril) 15 mg HSPRN PRN ORAL Insomnia 12/21/19 21:00 12/28/19 20:59 Vancomycin HCl (Vanco rx to dose) 1 ea DAILY PRN MISC . 12/21/19 09:15 01/20/20 09:14 Vancomycin HCl 1 gm/Dextrose 275 ml @ 183.708 mls/hr Q8HR@0200,1000,1800 IVPB 12/21/19 18:00 12/26/19 17:59 12/25/19 10:27 Dilma Chand M.D. December 25, 2019 17:14
[2019-12-26] MEDS: Vancomycin 1gm/D5W 275ml IVPB SCH ×4 (02:38→09:04)
[2019-12-26 04:00] VITALS: BP 109/72
[2019-12-26] MEDS: NovoLOG Insulin Flexpen SUBQ SCH ×4 (05:36→21:00)
[2019-12-26 07:05] LABS: BASOPHILS % (AUTO) 1.4 % (0.0-2.0); EOSINOPHILS % (AUTO) 3.1 % (0.0-3.0); HEMOGLOBIN 12.2 G/DL (14.2-18.0); LYMPHOCYTES % (AUTO) 14.2 % (20.0-45.0); MEAN CORPUSCULAR VOLUME 68 FL (80-99); MONOCYTES % (AUTO) 5.7 % (1.0-10.0); NEUTROPHILS % (AUTO) 75.6 % (45.0-75.0); PLATELET COUNT 183 K/UL (150-450); RED BLOOD COUNT 5.59 M/UL (4.70-6.10); RED CELL DISTRIBUTION WIDTH 13.6 % (11.6-14.8); WHITE BLOOD COUNT 8.8 K/UL (4.8-10.8)
--- NOTE | 2019-12-26 07:24 | Pulmonology Progress Note ---
Subjective Allergies: Coded Allergies: NO KNOWN DRUG ALLERGIES (Unverified Allergy, Unknown, 07/16/19) All Systems: reviewed and negative except above Subjective no leuk, no fevers pulse ox stable on O2 via NC 2 nd COVID result pending Objective Last 24 Hour Vital Signs Date Time Temp Pulse Resp B/P (MAP) Pulse Ox O2 Delivery O2 Flow Rate FiO2 12/26/19 04:00 97.9 100 20 109/72 (84) 96 12/25/19 23:59 97.3 82 20 120/67 (84) 95 12/25/19 21:00 Nasal Cannula 2.0 12/25/19 20:00 97.0 94 20 119/60 (79) 96 12/25/19 16:00 97.5 110 19 127/77 (94) 98 12/25/19 12:00 98.3 96 19 122/73 (89) 100 12/25/19 09:00 Nasal Cannula 2.0 12/25/19 08:00 98.1 95 20 117/77 (90) 100 Intake and Output 12/25/19 12/26/19 19:00 07:00 Intake Total 1435 ml 900 ml Output Total 2700 ml 850 ml Balance -1265 ml 50 ml Free Water 120 ml 240 ml IV Total 835 ml Tube Feeding 480 ml 660 ml Output Urine Total 2700 ml 850 ml Objective General Appearance: no apparent distress, bedridden chronically ill looking male in NAD Lines, tubes and drains: peripheral HEENT: normocephalic, atraumatic, anicteric Respiratory/Chest: lungs clear - with moderate air exchange Cardiovascular/Chest: normal rate Abdomen: normal bowel sounds, non tender, soft, feeding tube - G tube Skin Exam: warm/dry Neurologic: abnormal gait, eyes open, not repsosnive to verbal commands, paraplegia Musculoskeletal: atrophy - BLE Laboratory Tests 12/26/19 06:10: White Blood Count 8.8, Red Blood Count 5.59, Hemoglobin 12.2L, Hematocrit 38.0L , Mean Corpuscular Volume 68L, Mean Corpuscular Hemoglobin 21.9L, Mean Corpuscular Hemoglobin Concent 32.1, Red Cell Distribution Width 13.6, Platelet Count 183, Mean Platelet Volume 7.0, Neutrophils (%) (Auto) 75.6H, Lymphocytes ( %) (Auto) 14.2L, Monocytes (%) (Auto) 5.7, Eosinophils (%) (Auto) 3.1H, Basophils (%) (Auto) 1.4, Sodium Level [Pending], Potassium Level [Pending], Chloride Level [Pending], Carbon Dioxide Level [Pending], Blood Urea Nitrogen [ Pending], Creatinine [Pending], Estimat Glomerular Filtration Rate [Pending], Glucose Level [Pending], Calcium Level [Pending] Current Medications Medications (Trade) Dose Ordered Sig/Monalisa Route PRN Reason Start Time Stop Time Status Last Admin Dose Admin Acetaminophen (Tylenol) 650 mg Q4H PRN ORAL T>100.5 12/21/19 08:30 01/20/20 08:29 Albuterol/ Ipratropium (Albuterol/ Ipratropium) 3 ml Q4H PRN HHN Shortness of Breath 12/21/19 08:30 12/26/19 08:29 Dextrose (Dextrose 50%) 25 ml Q30M PRN IV Hypoglycemia 12/21/19 08:30 03/20/20 08:29 Dextrose (Dextrose 50%) 50 ml Q30M PRN IV Hypoglycemia 12/21/19 08:30 03/20/20 08:29 Finasteride (Proscar) 5 mg DAILY ORAL 12/21/19 09:30 03/20/20 09:29 12/25/19 09:20 Heparin Sodium (Porcine) (Heparin 5000 units/ml) 5,000 units EVERY 12 HOURS SUBQ 12/21/19 09:00 02/04/20 08:59 12/25/19 20:41 Insulin Aspart (NovoLOG) BEFORE MEALS AND HS SUBQ 12/21/19 11:30 03/20/20 11:29 12/23/19 13:04 Lorazepam (Ativan) 1 mg Q6H PRN GT For Anxiety 12/22/19 14:48 12/29/19 14:47 Nitroglycerin (Ntg) 0.4 mg Q5MIN X 3 DOSES PRN SL Prn Chest Pain 12/21/19 09:15 01/20/20 09:14 Ondansetron HCl (Zofran) 4 mg Q6H PRN IVP Nausea & Vomiting 12/21/19 08:30 01/20/20 08:29 Polyethylene Glycol (Miralax) 17 gm DAILYPRN PRN ORAL Constipation 12/21/19 08:30 01/20/20 08:29 12/25/19 06:55 Risperidone (RisperDAL) 1 mg DAILY GT 12/21/19 09:30 02/04/20 09:29 12/25/19 09:20 Sodium Chloride 1,000 ml @ 50 mls/hr Q20H IV 12/21/19 10:15 01/20/20 10:14 12/25/19 15:22 Temazepam (Restoril) 15 mg HSPRN PRN ORAL Insomnia 12/21/19 21:00 12/28/19 20:59 Vancomycin HCl 1 gm/Dextrose 275 ml @ 183.708 mls/hr Q8HR@0200,1000,1800 IVPB 12/21/19 18:00 12/26/19 17:59 12/26/19 02:38 Assessment/Plan Assessment/Plan ASSESSMENT Sepsis (with fevers, elevated lactic acid, recent COVID infection) Confirmed recent COVID PNA Acute toxic metabolic encephalopathy Dysphagia , feeding by G-tube High aspiration risk COPD Hx of CVA Seizure disorder Schizophrenia [facility]AN [facility] CARE [facility] SARS COV 2 by PCR 12/20 not detected, fup with another one 12/23 ( need 2 negative for facility) UCX 12/21 NGT BCX 12/21 NGTD prior BCX 12/20 Staph capitis, Staph epidermidis, likely contamination inflammatory markers noted : CRP not impressive, elevated D dimer will get Venous Duplex O2 titrate to keep sat above 92% pulm toilet, aspiration precautions DVT prophylaxis CXR stable gentle IVF BS management SNF meds resumed seizure precautions, continue antiepileptic from the facility supportive care case discussed and evaluated by supervising physician Lia Desir NP December 26, 2019 07:24
[2019-12-26 07:31] LABS: ANION GAP 13 mmol/L (5-15); BLOOD UREA NITROGEN 11 mg/dL (7-18); CALCIUM 9.1 MG/DL (8.5-10.1); CARBON DIOXIDE 24 MMOL/L (21-32); CHLORIDE 105 MMOL/L (98-107); POTASSIUM 4.3 MMOL/L (3.5-5.1); SODIUM 142 MMOL/L (136-145)
[2019-12-26 08:00] VITALS: BP 127/76
[2019-12-26] MEDS: Heparin 5000 units/ml inj SUBQ SCH ×2 (09:00→23:20)
--- NOTE | 2019-12-26 09:37 | General Progress Note ---
Assessment/Plan Problem List: (1) Fever ICD Codes: R50.9 - Fever, unspecified SNOMED: 198254097 (2) COPD (chronic obstructive pulmonary disease) ICD Codes: J44.9 - Chronic obstructive pulmonary disease, unspecified SNOMED: 59632037 (3) Parkinson disease ICD Codes: G20 - Parkinson's disease SNOMED: 02089455 (4) BPH (benign prostatic hyperplasia) ICD Codes: N40.0 - Benign prostatic hyperplasia without lower urinary tract symptoms SNOMED: 529277322 (5) UTI (urinary tract infection) ICD Codes: N39.0 - Urinary tract infection, site not specified SNOMED: 82773695 (6) Suspected COVID-19 virus infection ICD Codes: Z20.828 - Contact with and (suspected) exposure to other viral communicable diseases SNOMED: 944761857 (7) Hypertension ICD Codes: I10 - Hypertension SNOMED: 16906645 (8) ARF (acute renal failure) ICD Codes: N17.9 - Acute kidney failure, unspecified SNOMED: 47475771 (9) Schizophrenia ICD Codes: F20.9 - Schizophrenia, unspecified SNOMED: 02631930 (10) Seizure disorder ICD Codes: G40.909 - Epilepsy, unspecified, not intractable,without status epilepticus SNOMED: 103180802 Status: unchanged Assessment/Plan: o2 pulm tx abx pt diet cbc bmp am dc plan if clear Subjective Constitutional: Reports: weakness Allergies: Coded Allergies: NO KNOWN DRUG ALLERGIES (Unverified Allergy, Unknown, 07/16/19) All Systems: reviewed and negative except above Subjective sleepy calm Objective Last 24 Hour Vital Signs Date Time Temp Pulse Resp B/P (MAP) Pulse Ox O2 Delivery O2 Flow Rate FiO2 12/26/19 04:00 97.9 100 20 109/72 (84) 96 12/25/19 23:59 97.3 82 20 120/67 (84) 95 12/25/19 21:00 Nasal Cannula 2.0 12/25/19 20:00 97.0 94 20 119/60 (79) 96 12/25/19 16:00 97.5 110 19 127/77 (94) 98 12/25/19 12:00 98.3 96 19 122/73 (89) 100 Intake and Output 12/25/19 12/26/19 19:00 07:00 Intake Total 1435 ml 900 ml Output Total 2700 ml 850 ml Balance -1265 ml 50 ml Free Water 120 ml 240 ml IV Total 835 ml Tube Feeding 480 ml 660 ml Output Urine Total 2700 ml 850 ml Laboratory Tests 12/26/19 06:10: White Blood Count 8.8, Red Blood Count 5.59, Hemoglobin 12.2L, Hematocrit 38.0L , Mean Corpuscular Volume 68L, Mean Corpuscular Hemoglobin 21.9L, Mean Corpuscular Hemoglobin Concent 32.1, Red Cell Distribution Width 13.6, Platelet Count 183, Mean Platelet Volume 7.0, Neutrophils (%) (Auto) 75.6H, Lymphocytes ( %) (Auto) 14.2L, Monocytes (%) (Auto) 5.7, Eosinophils (%) (Auto) 3.1H, Basophils (%) (Auto) 1.4, Sodium Level 142, Potassium Level 4.3, Chloride Level 105, Carbon Dioxide Level 24, Anion Gap 13, Blood Urea Nitrogen 11, Creatinine 1.0, Estimat Glomerular Filtration Rate > 60, Glucose Level 129H, Calcium Level 9.1 Height (Feet): 6 Height (Inches): 2.00 Weight (Pounds): 160 General Appearance: lethargic EENT: normal ENT inspection Neck: normal alignment Cardiovascular: normal rate, regular rhythm Respiratory/Chest: no respiratory distress, no accessory muscle use Extremities: normal inspection Skin: normal pigmentation Donaldo Johnson DO December 26, 2019 09:37
[2019-12-26 12:00] VITALS: BP 142/70
[2019-12-26] MEDS: Miralax 17gm pkt ORAL PRN (12:01)
[2019-12-26 16:00] VITALS: BP 128/66
[2019-12-26 16:46] VITALS: BP 127/68
[2019-12-26 20:00] VITALS: BP 105/73
--- NOTE | 2019-12-26 23:00 | Progress Note ---
DATE: 12/26/2019 HISTORY OF PRESENT ILLNESS: This is a 64-year-old male patient with sepsis and he is COVID-19 positive, but he still has some altered mental status and decline in cognition below his baseline, worsened by stress of medical illnesses, diabetes, seizure disorder, hyperosmolar coma, insufficiency, hypertension, acute renal failure, BPH, and COPD. He has a significant decline in cognition below his baseline, altered mental status. That is why, his attending has requested daily psychiatric consultation. MENTAL STATUS EXAMINATION: This is a 64-year-old male. Appearance is disheveled. Attitude, irritable and agitated. Affect, guarded and restricted. Intellect poor. Mood, depressed and anxious. Motor activity, psychomotor agitation. Attention is poor. Orientation x2. Speech is low volume, slurred. Thought process, disorganized and illogical. Insight and judgment are poor. DIAGNOSIS: Paranoid schizophrenia with acute exacerbation. PLAN: Plan for this patient is to treat him with medication regimen consisting of Risperdal 1 mg per G-tube daily, Ativan 1 mg per G-tube every 6 hours p.r.n. anxiety and agitation. A 20 minutes of cognitive behavioral therapy to help him identify his automatic negative thoughts and help him convert his negative thoughts to more positive thoughts to reduce depression, anxiety, and mood lability. Chart reviewed. Discussed with staff. Seen and assessed in his room. Enrrique Escudero M.D. DR: Sofie JOB#: [id number] CC:
[2019-12-27] VITALS (7 sets, daily range): BP systolic 9–123; BP diastolic 58–79
[2019-12-27] MEDS: NovoLOG Insulin Flexpen SUBQ SCH ×4 (05:53→20:41)
--- NOTE | 2019-12-27 07:36 | Pulmonology Progress Note ---
Subjective Allergies: Coded Allergies: NO KNOWN DRUG ALLERGIES (Unverified Allergy, Unknown, 07/16/19) All Systems: reviewed and negative except above Subjective no leuk, no fevers pulse ox stable on O2 via NC 2 nd COVID result pending chemistry still pending for this am Objective Last 24 Hour Vital Signs Date Time Temp Pulse Resp B/P (MAP) Pulse Ox O2 Delivery O2 Flow Rate FiO2 12/27/19 04:00 97.8 84 20 98/62 (74) 96 12/27/19 00:00 98.0 100 21 118/79 (92) 96 12/26/19 21:00 Nasal Cannula 2.0 12/26/19 20:00 98.6 109 20 105/73 (84) 98 12/26/19 19:39 90 18 97 Nasal Cannula 2.0 28 12/26/19 19:39 97 Nasal Cannula 2.0 28 12/26/19 16:46 98.4 119 20 127/68 (87) 98 12/26/19 16:00 98.4 120 20 128/66 (86) 98 12/26/19 12:00 98.0 115 20 142/70 (94) 98 12/26/19 09:00 Nasal Cannula 2.0 12/26/19 08:00 98.6 112 20 127/76 (93) 98 Intake and Output 12/26/19 12/27/19 18:59 06:59 Intake Total 1230 ml 1340 ml Output Total 3550 ml Balance -2320 ml 1340 ml Free Water 180 ml 120 ml IV Total 450 ml 500 ml Tube Feeding 600 ml 720 ml Output Urine Total 3550 ml Objective General Appearance: no apparent distress, bedridden chronically ill looking male in NAD Lines, tubes and drains: peripheral HEENT: normocephalic, atraumatic, anicteric Respiratory/Chest: lungs clear - with moderate air exchange Cardiovascular/Chest: normal rate Abdomen: normal bowel sounds, non tender, soft, feeding tube - G tube Skin Exam: warm/dry Neurologic: abnormal gait, eyes open, not repsosnive to verbal commands, paraplegia Musculoskeletal: atrophy - BLE Current Medications Medications (Trade) Dose Ordered Sig/Monalisa Route PRN Reason Start Time Stop Time Status Last Admin Dose Admin Acetaminophen (Tylenol) 650 mg Q4H PRN ORAL T>100.5 12/21/19 08:30 01/20/20 08:29 Dextrose (Dextrose 50%) 25 ml Q30M PRN IV Hypoglycemia 12/21/19 08:30 03/20/20 08:29 Dextrose (Dextrose 50%) 50 ml Q30M PRN IV Hypoglycemia 12/21/19 08:30 03/20/20 08:29 Finasteride (Proscar) 5 mg DAILY ORAL 12/21/19 09:30 03/20/20 09:29 12/26/19 08:59 Heparin Sodium (Porcine) (Heparin 5000 units/ml) 5,000 units EVERY 12 HOURS SUBQ 12/21/19 09:00 02/04/20 08:59 12/26/19 23:20 Insulin Aspart (NovoLOG) BEFORE MEALS AND HS SUBQ 12/21/19 11:30 03/20/20 11:29 12/23/19 13:04 Lorazepam (Ativan) 1 mg Q6H PRN GT For Anxiety 12/22/19 14:48 12/29/19 14:47 Nitroglycerin (Ntg) 0.4 mg Q5MIN X 3 DOSES PRN SL Prn Chest Pain 12/21/19 09:15 01/20/20 09:14 Ondansetron HCl (Zofran) 4 mg Q6H PRN IVP Nausea & Vomiting 12/21/19 08:30 01/20/20 08:29 Polyethylene Glycol (Miralax) 17 gm DAILYPRN PRN ORAL Constipation 12/21/19 08:30 01/20/20 08:29 12/26/19 12:01 Risperidone (RisperDAL) 1 mg DAILY GT 12/21/19 09:30 02/04/20 09:29 12/26/19 08:59 Sodium Chloride 1,000 ml @ 50 mls/hr Q20H IV 12/21/19 10:15 01/20/20 10:14 12/27/19 05:56 Temazepam (Restoril) 15 mg HSPRN PRN ORAL Insomnia 12/21/19 21:00 12/28/19 20:59 12/26/19 23:23 Assessment/Plan Assessment/Plan ASSESSMENT Sepsis (with fevers, elevated lactic acid, recent COVID infection) Confirmed recent COVID PNA Acute toxic metabolic encephalopathy Dysphagia , feeding by G-tube High aspiration risk COPD Hx of CVA Seizure disorder Schizophrenia [facility]AN [facility] CARE [facility] SARS COV 2 by PCR 12/20 not detected, fup with another one 12/23 ( need 2 negative for facility) UCX 12/21 NGT BCX 12/21 NGTD prior BCX 12/20 Staph capitis, Staph epidermidis, likely contamination inflammatory markers noted : CRP not impressive, elevated D dimer will get Venous Duplex O2 titrate to keep sat above 92% pulm toilet, aspiration precautions DVT prophylaxis CXR stable gentle IVF BS management SNF meds resumed seizure precautions, continue antiepileptic from the facility supportive care stable for discharge from pulmonary standpoint 2 nd CoVID still pending, first was not detected, if facility agrees to take with one negative - he can go case discussed and evaluated by supervising physician Lia Desir NP December 27, 2019 07:36
[2019-12-27 08:47] LABS: HEMATOCRIT 39.9 % (42.0-52.0); HEMOGLOBIN 12.4 G/DL (14.2-18.0); MEAN CORPUSCULAR VOLUME 68 FL (80-99); PLATELET COUNT 256 K/UL (150-450); RED BLOOD COUNT 5.83 M/UL (4.70-6.10); RED CELL DISTRIBUTION WIDTH 14.1 % (11.6-14.8); WHITE BLOOD COUNT 7.1 K/UL (4.8-10.8)
--- NOTE | 2019-12-27 08:48 | General Progress Note ---
Assessment/Plan Problem List: (1) Fever ICD Codes: R50.9 - Fever, unspecified SNOMED: 487091812 (2) COPD (chronic obstructive pulmonary disease) ICD Codes: J44.9 - Chronic obstructive pulmonary disease, unspecified SNOMED: 56350935 (3) Parkinson disease ICD Codes: G20 - Parkinson's disease SNOMED: 13478918 (4) BPH (benign prostatic hyperplasia) ICD Codes: N40.0 - Benign prostatic hyperplasia without lower urinary tract symptoms SNOMED: 998273546 (5) UTI (urinary tract infection) ICD Codes: N39.0 - Urinary tract infection, site not specified SNOMED: 45058230 (6) Suspected COVID-19 virus infection ICD Codes: Z20.828 - Contact with and (suspected) exposure to other viral communicable diseases SNOMED: 126023010 (7) Hypertension ICD Codes: I10 - Hypertension SNOMED: 89146858 (8) ARF (acute renal failure) ICD Codes: N17.9 - Acute kidney failure, unspecified SNOMED: 15453621 (9) Schizophrenia ICD Codes: F20.9 - Schizophrenia, unspecified SNOMED: 12917122 (10) Seizure disorder ICD Codes: G40.909 - Epilepsy, unspecified, not intractable,without status epilepticus SNOMED: 690863274 Status: unchanged Assessment/Plan: o2 pulm tx abx pt diet cbc bmp am dc plan if clear Subjective Constitutional: Reports: weakness Allergies: Coded Allergies: NO KNOWN DRUG ALLERGIES (Unverified Allergy, Unknown, 07/16/19) All Systems: reviewed and negative except above Subjective sleepy calm Objective Last 24 Hour Vital Signs Date Time Temp Pulse Resp B/P (MAP) Pulse Ox O2 Delivery O2 Flow Rate FiO2 12/27/19 04:00 97.8 84 20 98/62 (74) 96 12/27/19 00:00 98.0 100 21 118/79 (92) 96 12/26/19 21:00 Nasal Cannula 2.0 12/26/19 20:00 98.6 109 20 105/73 (84) 98 12/26/19 19:39 90 18 97 Nasal Cannula 2.0 28 12/26/19 19:39 97 Nasal Cannula 2.0 28 12/26/19 16:46 98.4 119 20 127/68 (87) 98 12/26/19 16:00 98.4 120 20 128/66 (86) 98 12/26/19 12:00 98.0 115 20 142/70 (94) 98 12/26/19 09:00 Nasal Cannula 2.0 Intake and Output 12/26/19 12/27/19 19:00 07:00 Intake Total 1230 ml 1340 ml Output Total 3550 ml Balance -2320 ml 1340 ml Free Water 180 ml 120 ml IV Total 450 ml 500 ml Tube Feeding 600 ml 720 ml Output Urine Total 3550 ml Laboratory Tests 12/27/19 05:30: White Blood Count [Pending], Red Blood Count [Pending], Hemoglobin [Pending], Hematocrit [Pending], Mean Corpuscular Volume [Pending], Mean Corpuscular Hemoglobin [Pending], Mean Corpuscular Hemoglobin Concent [Pending], Red Cell Distribution Width [Pending], Platelet Count [Pending], Mean Platelet Volume [ Pending], Neutrophils (%) (Auto) [Pending], Lymphocytes (%) (Auto) [Pending], Monocytes (%) (Auto) [Pending], Eosinophils (%) (Auto) [Pending], Basophils (%) (Auto) [Pending], Sodium Level [Pending], Potassium Level [Pending], Chloride Level [Pending], Carbon Dioxide Level [Pending], Blood Urea Nitrogen [Pending], Creatinine [Pending], Estimat Glomerular Filtration Rate [Pending], Glucose Level [Pending], Calcium Level [Pending] Height (Feet): 6 Height (Inches): 2.00 Weight (Pounds): 160 General Appearance: lethargic EENT: normal ENT inspection Neck: normal alignment Cardiovascular: normal rate, regular rhythm Respiratory/Chest: no respiratory distress, no accessory muscle use Extremities: normal inspection Skin: normal pigmentation Donaldo Johnson DO December 27, 2019 08:48
[2019-12-27] MEDS: Heparin 5000 units/ml inj SUBQ SCH ×2 (08:55→20:41)
[2019-12-27 09:07] LABS: ANION GAP 9 mmol/L (5-15); BLOOD UREA NITROGEN 14 mg/dL (7-18); CALCIUM 9.1 MG/DL (8.5-10.1); CARBON DIOXIDE 28 MMOL/L (21-32); CHLORIDE 106 MMOL/L (98-107); CREATININE 0.8 MG/DL (0.55-1.30); POTASSIUM 4.4 MMOL/L (3.5-5.1); SODIUM 143 MMOL/L (136-145)
[2019-12-27] MEDS ORDERED: Lactulose 20gm/30ml UDC GT SCH (11:45)
--- NOTE | 2019-12-27 16:59 | Infectious Diseases Prog Note ---
Assessment/Plan Assessment/Plan Assessment: Sepsis- ?source- SP CONS bacteremia-likely contaminant -12/20 Bcx 2/4 S. capitis, S. epidermis; 12/21 BCx NTD Low grade fever,SP- No obvious PNA on CXR Mild leukocytosis, SP -12/22 CXR: No acute process -12/20 CXR: Low lung volume with resultant bronchovascular crowding. No focal consolidation. Mild interstitial pulmonary edema cannot be excluded. Nonspecific prominent air-filled loops of bowel of the partially visualized abdomen. -Influenza PCR neg -u/a no pyuria; ux NTD Lactic acidosis, SP Recent COVID19 pneumonia (dx 11/19) -12/20 SARS-COV2 PCR neg Dm2 HTN seizure disorder dysphagia s/p GT decubitus ulcer FTT cerebral palsy COPD CVA/TIA paranoid schizophrenia non verbal SNF resident (Zaria Good) Plan: -Continue to monitor off abx -12/24 SP IV Vancomycin and Cefepime #5 -12/20 SP Levaquin x1 -f/u cx -Monitor CBC/CMP, temperature -COVID19 isolation and testing; 1st repeat COVID neg; awaiting 2nd test for removal of isolation -f/u repeat Bcx x2 Thank you for consulting [facility]. Will continue to follow along with you. Subjective Allergies: Coded Allergies: NO KNOWN DRUG ALLERGIES (Unverified Allergy, Unknown, 07/16/19) Subjective afebrile at 2l NC mild leukocytosis resolved repaet Bcx NTD Objective Vital Signs Last 24 Hour Vital Signs Date Time Temp Pulse Resp B/P (MAP) Pulse Ox O2 Delivery O2 Flow Rate FiO2 12/27/19 16:00 97.9 103 18 123/59 (80) 100 12/27/19 12:31 101 98/65 (76) 12/27/19 12:00 97.2 101 18 88/58 (68) 96 12/27/19 09:00 Nasal Cannula 2.0 12/27/19 08:00 97.7 93 18 9/63 (45) 98 12/27/19 04:00 97.8 84 20 98/62 (74) 96 12/27/19 00:00 98.0 100 21 118/79 (92) 96 12/26/19 21:00 Nasal Cannula 2.0 12/26/19 20:00 98.6 109 20 105/73 (84) 98 12/26/19 19:39 90 18 97 Nasal Cannula 2.0 28 12/26/19 19:39 97 Nasal Cannula 2.0 28 Height (Feet): 6 Height (Inches): 2.00 Weight (Pounds): 160 Objective GEn:no distress Head: atraumatic Lungs: no use of accessory muscle., no tachypnea Abd: not distended Laboratory Tests Test 12/27/19 05:30 White Blood Count 7.1 K/UL (4.8-10.8) Red Blood Count 5.83 M/UL (4.70-6.10) Hemoglobin 12.4 G/DL (14.2-18.0) L Hematocrit 39.9 % (42.0-52.0) L Mean Corpuscular Volume 68 FL (80-99) L Mean Corpuscular Hemoglobin 21.2 PG (27.0-31.0) L Mean Corpuscular Hemoglobin Concent 31.0 G/DL (32.0-36.0) L Red Cell Distribution Width 14.1 % (11.6-14.8) Platelet Count 256 K/UL (150-450) Mean Platelet Volume 8.1 FL (6.5-10.1) Neutrophils (%) (Auto) % (45.0-75.0) Lymphocytes (%) (Auto) % (20.0-45.0) Monocytes (%) (Auto) % (1.0-10.0) Eosinophils (%) (Auto) % (0.0-3.0) Basophils (%) (Auto) % (0.0-2.0) Differential Total Cells Counted 100 Neutrophils % (Manual) 57 % (45-75) Lymphocytes % (Manual) 26 % (20-45) Monocytes % (Manual) 12 % (1-10) H Eosinophils % (Manual) 4 % (0-3) H Basophils % (Manual) 1 % (0-2) Band Neutrophils 0 % (0-8) Platelet Estimate Adequate Platelet Morphology Normal Hypochromasia 1+ Anisocytosis 1+ Microcytosis 1+ Sodium Level 143 MMOL/L (136-145) Potassium Level 4.4 MMOL/L (3.5-5.1) Chloride Level 106 MMOL/L (98-107) Carbon Dioxide Level 28 MMOL/L (21-32) Anion Gap 9 mmol/L (5-15) Blood Urea Nitrogen 14 mg/dL (7-18) Creatinine 0.8 MG/DL (0.55-1.30) Estimat Glomerular Filtration Rate > 60 mL/min (>60) Glucose Level 109 MG/DL (74-106) H Calcium Level 9.1 MG/DL (8.5-10.1) Current Medications Medications (Trade) Dose Ordered Sig/Monalisa Route PRN Reason Start Time Stop Time Status Last Admin Dose Admin Acetaminophen (Tylenol) 650 mg Q4H PRN ORAL T>100.5 12/21/19 08:30 01/20/20 08:29 Dextrose (Dextrose 50%) 25 ml Q30M PRN IV Hypoglycemia 12/21/19 08:30 03/20/20 08:29 Dextrose (Dextrose 50%) 50 ml Q30M PRN IV Hypoglycemia 12/21/19 08:30 03/20/20 08:29 Finasteride (Proscar) 5 mg DAILY ORAL 12/21/19 09:30 03/20/20 09:29 12/27/19 08:54 Heparin Sodium (Porcine) (Heparin 5000 units/ml) 5,000 units EVERY 12 HOURS SUBQ 12/21/19 09:00 02/04/20 08:59 12/27/19 08:55 Insulin Aspart (NovoLOG) BEFORE MEALS AND HS SUBQ 12/21/19 11:30 03/20/20 11:29 12/23/19 13:04 Lorazepam (Ativan) 1 mg Q6H PRN GT For Anxiety 12/22/19 14:48 12/29/19 14:47 Nitroglycerin (Ntg) 0.4 mg Q5MIN X 3 DOSES PRN SL Prn Chest Pain 12/21/19 09:15 01/20/20 09:14 Ondansetron HCl (Zofran) 4 mg Q6H PRN IVP Nausea & Vomiting 12/21/19 08:30 01/20/20 08:29 Polyethylene Glycol (Miralax) 17 gm DAILYPRN PRN ORAL Constipation 12/21/19 08:30 01/20/20 08:29 12/26/19 12:01 Risperidone (RisperDAL) 1 mg DAILY GT 12/21/19 09:30 02/04/20 09:29 12/27/19 08:54 Sodium Chloride 1,000 ml @ 50 mls/hr Q20H IV 12/21/19 10:15 01/20/20 10:14 12/27/19 05:56 Temazepam (Restoril) 15 mg HSPRN PRN ORAL Insomnia 12/21/19 21:00 12/28/19 20:59 12/26/19 23:23 Dilma Chand M.D. December 27, 2019 16:59
--- NOTE | 2019-12-27 18:15 | Progress Note ---
DATE: 12/27/2019 SUBJECTIVE: This is a 64-year-old patient with sepsis, COVID positive, but the patient continues to have altered mental status, confusion, and decline in cognition below his baseline. He has altered mental status, confusion, seizure disorder, hyperosmolar coma, diabetes, hypertension, renal failure, BPH, COPD decline in cognition below his baseline. MENTAL STATUS EXAMINATION: This is a 64-year-old male. Appearance is disheveled. Attitude, irritable and agitated. Affect, guarded and restricted. Intellect poor. Mood, depressed and anxious. Motor activity, psychomotor agitation. Attention span is poor. Orientation x2. Speech is low volume, slurred. Thought process, disorganized and illogical. Insight and judgement poor. DIAGNOSIS: Paranoid schizophrenia with acute exacerbation. PLAN: Treat him with Risperdal 1 mg per G-tube daily, Ativan 1 per G-tube every 6 hours p.r.n. anxiety and agitation. A 20 minutes of cognitive behavioral therapy to help him identify his automatic negative thoughts, help him convert negative thoughts to more positive thoughts to reduce depression, anxiety, and mood lability. Chart reviewed and discussed with staff. Seen and assessed at bedside. Enrrique Escudero M.D. DR: Divya JOB#: [id number] CC:
[2019-12-28] VITALS: BP 100/65
[2019-12-28 04:00] VITALS: BP 102/75
[2019-12-28] MEDS: NovoLOG Insulin Flexpen SUBQ SCH ×3 (05:51→16:30)
[2019-12-28 06:27] LABS: BASOPHILS % (AUTO) 1.4 % (0.0-2.0); EOSINOPHILS % (AUTO) 4.9 % (0.0-3.0); HEMOGLOBIN 12.7 G/DL (14.2-18.0); LYMPHOCYTES % (AUTO) 32.1 % (20.0-45.0); MEAN CORPUSCULAR VOLUME 69 FL (80-99); MONOCYTES % (AUTO) 7.4 % (1.0-10.0); NEUTROPHILS % (AUTO) 54.2 % (45.0-75.0); PLATELET COUNT 259 K/UL (150-450); RED BLOOD COUNT 5.84 M/UL (4.70-6.10); RED CELL DISTRIBUTION WIDTH 13.9 % (11.6-14.8); WHITE BLOOD COUNT 6.8 K/UL (4.8-10.8)
[2019-12-28 06:46] LABS: ANION GAP 7 mmol/L (5-15); BLOOD UREA NITROGEN 14 mg/dL (7-18); CALCIUM 9.2 MG/DL (8.5-10.1); CARBON DIOXIDE 30 MMOL/L (21-32); CHLORIDE 107 MMOL/L (98-107); CREATININE 0.7 MG/DL (0.55-1.30); POTASSIUM 4.4 MMOL/L (3.5-5.1); SODIUM 144 MMOL/L (136-145)
[2019-12-28 08:00] VITALS: BP 108/77
[2019-12-28] MEDS: Heparin 5000 units/ml inj SUBQ SCH (08:52)
--- NOTE | 2019-12-28 09:08 | General Progress Note ---
Assessment/Plan Problem List: (1) Fever ICD Codes: R50.9 - Fever, unspecified SNOMED: 184098158 (2) COPD (chronic obstructive pulmonary disease) ICD Codes: J44.9 - Chronic obstructive pulmonary disease, unspecified SNOMED: 71012565 (3) Parkinson disease ICD Codes: G20 - Parkinson's disease SNOMED: 64164451 (4) BPH (benign prostatic hyperplasia) ICD Codes: N40.0 - Benign prostatic hyperplasia without lower urinary tract symptoms SNOMED: 951583120 (5) UTI (urinary tract infection) ICD Codes: N39.0 - Urinary tract infection, site not specified SNOMED: 89399967 (6) Suspected COVID-19 virus infection ICD Codes: Z20.828 - Contact with and (suspected) exposure to other viral communicable diseases SNOMED: 588374769 (7) Hypertension ICD Codes: I10 - Hypertension SNOMED: 01913226 (8) ARF (acute renal failure) ICD Codes: N17.9 - Acute kidney failure, unspecified SNOMED: 29151342 (9) Schizophrenia ICD Codes: F20.9 - Schizophrenia, unspecified SNOMED: 15832482 (10) Seizure disorder ICD Codes: G40.909 - Epilepsy, unspecified, not intractable,without status epilepticus SNOMED: 301679937 Status: unchanged Assessment/Plan: o2 pulm tx abx pt diet cbc bmp am ltach eval Subjective Constitutional: Reports: weakness Allergies: Coded Allergies: NO KNOWN DRUG ALLERGIES (Unverified Allergy, Unknown, 07/16/19) All Systems: reviewed and negative except above Subjective sleepy calm Objective Last 24 Hour Vital Signs Date Time Temp Pulse Resp B/P (MAP) Pulse Ox O2 Delivery O2 Flow Rate FiO2 12/28/19 04:00 96.6 98 24 102/75 (84) 99 12/28/19 00:00 97.3 101 24 100/65 (77) 99 12/27/19 21:00 Nasal Cannula 2.0 12/27/19 20:06 98 18 95 Nasal Cannula 2.0 28 12/27/19 20:06 95 Nasal Cannula 2.0 28 12/27/19 20:00 97.3 99 24 101/60 (74) 95 12/27/19 16:00 97.9 103 18 123/59 (80) 100 12/27/19 12:31 101 98/65 (76) 12/27/19 12:00 97.2 101 18 88/58 (68) 96 Intake and Output 12/27/19 12/28/19 19:00 07:00 Intake Total 1560 ml 840 ml Output Total 1625 ml 1300 ml Balance -65 ml -460 ml Free Water 180 ml 180 ml IV Total 600 ml Tube Feeding 780 ml 660 ml Output Urine Total 1625 ml 1300 ml Laboratory Tests 12/28/19 04:00: White Blood Count 6.8, Red Blood Count 5.84, Hemoglobin 12.7L, Hematocrit 40.0L , Mean Corpuscular Volume 69L, Mean Corpuscular Hemoglobin 21.7L, Mean Corpuscular Hemoglobin Concent 31.6L, Red Cell Distribution Width 13.9, Platelet Count 259, Mean Platelet Volume 8.2, Neutrophils (%) (Auto) 54.2, Lymphocytes (%) (Auto) 32.1, Monocytes (%) (Auto) 7.4, Eosinophils (%) (Auto) 4.9H, Basophils (%) (Auto) 1.4, Sodium Level 144, Potassium Level 4.4, Chloride Level 107, Carbon Dioxide Level 30, Anion Gap 7, Blood Urea Nitrogen 14, Creatinine 0.7, Estimat Glomerular Filtration Rate > 60, Glucose Level 85, Calcium Level 9.2 Height (Feet): 6 Height (Inches): 2.00 Weight (Pounds): 160 General Appearance: lethargic EENT: normal ENT inspection Neck: normal alignment Cardiovascular: normal rate, regular rhythm Respiratory/Chest: no respiratory distress, no accessory muscle use Skin: normal pigmentation Donaldo Johnson DO Dec 28, 2019 09:08
[2019-12-28 12:00] VITALS: BP 109/69
--- NOTE | 2019-12-28 12:45 | Progress Note ---
DATE: 12/28/2019 SUBJECTIVE: This is a 64-year-old male patient. He has sepsis, diabetes, COVID-19 infection, metabolic encephalopathy, COPD, BPH, possibly , and seizure disorder. Cognitive decline in cognition below his baseline. That is why, his attending has requested daily psychiatric consultation. He has increased mood lability and agitation. MENTAL STATUS EXAMINATION: This is a 64-year-old male. Appearance is disheveled. Attitude, irritable and agitated. Affect, guarded and restricted. Intellect poor. Mood, depressed and anxious. Motor activity, psychomotor agitation. Attention span is poor. Orientation x2. Speech is low volume, slurred. Thought process, disorganized and illogical. Insight and judgment is poor. DIAGNOSIS: Paranoid schizophrenia with acute exacerbation. PLAN: Treat him on Risperdal 1 mg per G-tube daily, Ativan 1 mg per G-tube every 6 hours p.r.n. anxiety and agitation. A 20 minutes of reality-based supportive psychotherapy provided. Chart reviewed. Discussed with staff. Seen and assessed at bedside. Enrrique Escudero M.D. DR: ANGELI JOB#: [id number] CC:
--- NOTE | 2019-12-28 14:08 | Pulmonology Progress Note ---
Subjective ROS Limited/Unobtainable: No Constitutional: Reports: no symptoms HEENT: Repors: no symptoms Allergies: Coded Allergies: NO KNOWN DRUG ALLERGIES (Unverified Allergy, Unknown, 07/16/19) All Systems: reviewed and negative except above Objective Last 24 Hour Vital Signs Date Time Temp Pulse Resp B/P (MAP) Pulse Ox O2 Delivery O2 Flow Rate FiO2 12/28/19 12:00 97.0 100 22 109/69 (82) 98 12/28/19 09:00 Nasal Cannula 2.0 12/28/19 08:00 97.0 100 22 108/77 (87) 100 12/28/19 04:00 96.6 98 24 102/75 (84) 99 12/28/19 00:00 97.3 101 24 100/65 (77) 99 12/27/19 21:00 Nasal Cannula 2.0 12/27/19 20:06 98 18 95 Nasal Cannula 2.0 28 12/27/19 20:06 95 Nasal Cannula 2.0 28 12/27/19 20:00 97.3 99 24 101/60 (74) 95 12/27/19 16:00 97.9 103 18 123/59 (80) 100 Intake and Output 12/27/19 12/28/19 19:00 07:00 Intake Total 1560 ml 840 ml Output Total 1625 ml 1300 ml Balance -65 ml -460 ml Free Water 180 ml 180 ml IV Total 600 ml Tube Feeding 780 ml 660 ml Output Urine Total 1625 ml 1300 ml General Appearance: WD/WN, no acute distress Respiratory: chest wall non-tender, lungs clear Cardiovascular: normal peripheral pulses, normal rate Abdomen: normal bowel sounds, soft, non tender Genitourinary: normal external genitalia Extremities: no clubbing Skin: no rash Neurologic: family medicine physician II-XII grossly normal Laboratory Tests 12/28/19 04:00: White Blood Count 6.8, Red Blood Count 5.84, Hemoglobin 12.7L, Hematocrit 40.0L , Mean Corpuscular Volume 69L, Mean Corpuscular Hemoglobin 21.7L, Mean Corpuscular Hemoglobin Concent 31.6L, Red Cell Distribution Width 13.9, Platelet Count 259, Mean Platelet Volume 8.2, Neutrophils (%) (Auto) 54.2, Lymphocytes (%) (Auto) 32.1, Monocytes (%) (Auto) 7.4, Eosinophils (%) (Auto) 4.9H, Basophils (%) (Auto) 1.4, Sodium Level 144, Potassium Level 4.4, Chloride Level 107, Carbon Dioxide Level 30, Anion Gap 7, Blood Urea Nitrogen 14, Creatinine 0.7, Estimat Glomerular Filtration Rate > 60, Glucose Level 85, Calcium Level 9.2 Current Medications Medications (Trade) Dose Ordered Sig/Monalisa Route PRN Reason Start Time Stop Time Status Last Admin Dose Admin Acetaminophen (Tylenol) 650 mg Q4H PRN ORAL T>100.5 12/21/19 08:30 01/20/20 08:29 Dextrose (Dextrose 50%) 25 ml Q30M PRN IV Hypoglycemia 12/21/19 08:30 03/20/20 08:29 Dextrose (Dextrose 50%) 50 ml Q30M PRN IV Hypoglycemia 12/21/19 08:30 03/20/20 08:29 Finasteride (Proscar) 5 mg DAILY ORAL 12/21/19 09:30 03/20/20 09:29 12/28/19 08:50 Heparin Sodium (Porcine) (Heparin 5000 units/ml) 5,000 units EVERY 12 HOURS SUBQ 12/21/19 09:00 02/04/20 08:59 12/28/19 08:52 Insulin Aspart (NovoLOG) BEFORE MEALS AND HS SUBQ 12/21/19 11:30 03/20/20 11:29 12/23/19 13:04 Lorazepam (Ativan) 1 mg Q6H PRN GT For Anxiety 12/22/19 14:48 12/29/19 14:47 Nitroglycerin (Ntg) 0.4 mg Q5MIN X 3 DOSES PRN SL Prn Chest Pain 12/21/19 09:15 01/20/20 09:14 Ondansetron HCl (Zofran) 4 mg Q6H PRN IVP Nausea & Vomiting 12/21/19 08:30 01/20/20 08:29 Polyethylene Glycol (Miralax) 17 gm DAILYPRN PRN ORAL Constipation 12/21/19 08:30 01/20/20 08:29 12/26/19 12:01 Risperidone (RisperDAL) 1 mg DAILY GT 12/21/19 09:30 02/04/20 09:29 6/1/20 08:50 Sodium Chloride 1,000 ml @ 50 mls/hr Q20H IV 12/21/19 10:15 01/20/20 10:14 12/28/19 02:39 Temazepam (Restoril) 15 mg HSPRN PRN ORAL Insomnia 12/21/19 21:00 12/28/19 20:59 12/26/19 23:23 Assessment/Plan Problems: (1) Acute metabolic encephalopathy (2) COPD (chronic obstructive pulmonary disease) (3) Suspected COVID-19 virus infection (4) Diabetes (5) Parkinson disease (6) Feeding by G-tube (7) long-term resident (8) OBS (organic brain syndrome) (9) Hypertension (10) BPH (benign prostatic hyperplasia) Assessment/Plan dc iv fluids looks better check cultures iv abx COVID, negative twice tolerating feeding Gtube site care respiratory treatment sliding scale dvt prophylaxis all notes reviewed Lucie Gracia MD Dec 28, 2019 14:08
--- NOTE | 2019-12-28 15:22 | Infectious Diseases Prog Note ---
Assessment/Plan Assessment/Plan Assessment: Sepsis- ?source- SP CONS bacteremia-likely contaminant -12/20 Bcx 2/4 S. capitis, S. epidermis; 12/21 BCx Neg Low grade fever,SP- No obvious PNA on CXR Mild leukocytosis, SP -12/22 CXR: No acute process -12/20 CXR: Low lung volume with resultant bronchovascular crowding. No focal consolidation. Mild interstitial pulmonary edema cannot be excluded. Nonspecific prominent air-filled loops of bowel of the partially visualized abdomen. -Influenza PCR neg -u/a no pyuria; ux NTD Lactic acidosis, SP Recent COVID19 pneumonia (dx 11/19)- repeat test neg x2 -12/20 SARS-COV2 PCR neg; 12/23 neg Dm2 HTN seizure disorder dysphagia s/p GT decubitus ulcer FTT cerebral palsy COPD CVA/TIA paranoid schizophrenia non verbal SNF resident ([facility] Good) Plan: -Continue to monitor off abx -ok to dc to SNF off antibiotics and off isolation -12/24 SP IV Vancomycin and Cefepime #5 -12/20 SP Levaquin x1 -f/u cx -Monitor CBC/CMP, temperature -Repeat COVID neg x2; can dc isolation Thank you for consulting [facility]. Will continue to follow along with you. Subjective Allergies: Coded Allergies: NO KNOWN DRUG ALLERGIES (Unverified Allergy, Unknown, 07/16/19) Subjective afebrile at 2l NC Objective Vital Signs Last 24 Hour Vital Signs Date Time Temp Pulse Resp B/P (MAP) Pulse Ox O2 Delivery O2 Flow Rate FiO2 12/28/19 12:00 97.0 100 22 109/69 (82) 98 12/28/19 09:00 Nasal Cannula 2.0 12/28/19 08:00 97.0 100 22 108/77 (87) 100 12/28/19 04:00 96.6 98 24 102/75 (84) 99 12/28/19 00:00 97.3 101 24 100/65 (77) 99 12/27/19 21:00 Nasal Cannula 2.0 12/27/19 20:06 98 18 95 Nasal Cannula 2.0 28 12/27/19 20:06 95 Nasal Cannula 2.0 28 12/27/19 20:00 97.3 99 24 101/60 (74) 95 5/31/20 16:00 97.9 103 18 123/59 (80) 100 Height (Feet): 6 Height (Inches): 2.00 Weight (Pounds): 160 Objective GEn:no distress Head: atraumatic Lungs: no use of accessory muscle., no tachypnea Abd: not distended Laboratory Tests Test 12/28/19 04:00 White Blood Count 6.8 K/UL (4.8-10.8) Red Blood Count 5.84 M/UL (4.70-6.10) Hemoglobin 12.7 G/DL (14.2-18.0) L Hematocrit 40.0 % (42.0-52.0) L Mean Corpuscular Volume 69 FL (80-99) L Mean Corpuscular Hemoglobin 21.7 PG (27.0-31.0) L Mean Corpuscular Hemoglobin Concent 31.6 G/DL (32.0-36.0) L Red Cell Distribution Width 13.9 % (11.6-14.8) Platelet Count 259 K/UL (150-450) Mean Platelet Volume 8.2 FL (6.5-10.1) Neutrophils (%) (Auto) 54.2 % (45.0-75.0) Lymphocytes (%) (Auto) 32.1 % (20.0-45.0) Monocytes (%) (Auto) 7.4 % (1.0-10.0) Eosinophils (%) (Auto) 4.9 % (0.0-3.0) H Basophils (%) (Auto) 1.4 % (0.0-2.0) Sodium Level 144 MMOL/L (136-145) Potassium Level 4.4 MMOL/L (3.5-5.1) Chloride Level 107 MMOL/L (98-107) Carbon Dioxide Level 30 MMOL/L (21-32) Anion Gap 7 mmol/L (5-15) Blood Urea Nitrogen 14 mg/dL (7-18) Creatinine 0.7 MG/DL (0.55-1.30) Estimat Glomerular Filtration Rate > 60 mL/min (>60) Glucose Level 85 MG/DL (74-106) Calcium Level 9.2 MG/DL (8.5-10.1) Current Medications Medications (Trade) Dose Ordered Sig/Monalisa Route PRN Reason Start Time Stop Time Status Last Admin Dose Admin Acetaminophen (Tylenol) 650 mg Q4H PRN ORAL T>100.5 12/21/19 08:30 01/20/20 08:29 Dextrose (Dextrose 50%) 25 ml Q30M PRN IV Hypoglycemia 12/21/19 08:30 03/20/20 08:29 Dextrose (Dextrose 50%) 50 ml Q30M PRN IV Hypoglycemia 12/21/19 08:30 03/20/20 08:29 Finasteride (Proscar) 5 mg DAILY ORAL 12/21/19 09:30 03/20/20 09:29 12/28/19 08:50 Heparin Sodium (Porcine) (Heparin 5000 units/ml) 5,000 units EVERY 12 HOURS SUBQ 12/21/19 09:00 02/04/20 08:59 12/28/19 08:52 Insulin Aspart (NovoLOG) BEFORE MEALS AND HS SUBQ 12/21/19 11:30 03/20/20 11:29 12/23/19 13:04 Lorazepam (Ativan) 1 mg Q6H PRN GT For Anxiety 12/22/19 14:48 12/29/19 14:47 Nitroglycerin (Ntg) 0.4 mg Q5MIN X 3 DOSES PRN SL Prn Chest Pain 12/21/19 09:15 01/20/20 09:14 Ondansetron HCl (Zofran) 4 mg Q6H PRN IVP Nausea & Vomiting 12/21/19 08:30 01/20/20 08:29 Polyethylene Glycol (Miralax) 17 gm DAILYPRN PRN ORAL Constipation 12/21/19 08:30 01/20/20 08:29 12/26/19 12:01 Risperidone (RisperDAL) 1 mg DAILY GT 12/21/19 09:30 02/04/20 09:29 12/28/19 08:50 Temazepam (Restoril) 15 mg HSPRN PRN ORAL Insomnia 12/21/19 21:00 12/28/19 20:59 12/26/19 23:23 Dilma Chand M.D. Dec 28, 2019 15:22
[2019-12-28] MEDS ORDERED: HEPARIN SO5000 UNIT2 SUBQ ×3 (15:24→15:26)
[2019-12-28] MEDS ORDERED: ATIVAN1 MG ORAL (15:30)
[2019-12-28] MEDS ORDERED: RESTORIL15 MG ORAL (15:33)
[2019-12-28 16:00] VITALS: BP 110/73
[2019-12-28] MEDS: Miralax 17gm pkt ORAL PRN (16:46)
--- NOTE | 2019-12-29 07:33 | Discharge Summary ---
Discharge Summary Discharge Summary _ DATE OF ADMISSION: 12/21/2019 DATE OF DISCHARGE: 12/28/2019 DISCHARGED BY: Dr. Johnson REASON FOR ADMISSION: 64 years old male, resident of group home facility, with past medical history of CVA, seizure disorder, cerebral palsy, COPD, hypertension, dysphagia , feeding by G-tube, schizophrenia, was sent for evaluation due to altered mental status and fever. Patient recently discharged from this hospital, about 3 weeks ago. At that time he was diagnosed with COVID pneumonia, stabilized and was sent back to group home facility. Apparently in the facility he developed fever and was altered. Patient subsequently was sent back for evaluation. In emergency room patient had low-grade fever 100. Laboratory work-up revealed no leukocytosis, stable hemoglobin ,hematocrit and platelet count. Lactic acid 3.2 BUN 20, creatinine 0.9 Stable electrolytes and LFT. Troponin negative. Urinalysis revealed no evidence of urinary tract infection, +2 protein. Influenza swab test was negative. Chest x-ray revealed low lung volumes with resultant bronchovascular crowding. No focal consolidation. In emergency department patient pancultured, started on IV fluids, broad- spectrum antibiotics and transferred to isolation room for further management. CONSULTANTS: pulmonary Dr. Gracia ID specialist Dr. Chand psychiatrist Dr. Escudero [facility]RSE: Patient admitted to isolation room and started on empiric antibiotics. Initial blood culture revealed Staph capitis and Staph epidermidis. Repeated blood culture on 12/21 were negative. Initial blood culture was likely contaminant. SARS COV 2 by PCR on 12/20 and 12/23 was not detected. Sedation discontinued. Urine culture was negative. Patient completed 5 days of antibiotic. Patient remained afebrile, no leukocytosis. Follow-up chest x-ray revealed no acute process. Infectious disease specialist recommended to monitor temperature and keep patient off antibiotics. Supplemental oxygen provided and titrated to keep pulse oximetry above 92%. Pulmonary toilet provided as needed. DVT prophylaxis provided. Strict aspiration precaution maintained. G-tube feeding continued. Patient was on gentle IV hydration. Blood sugar was managed with sliding scale of insulin. SNF medication resumed. Seizure precaution maintained. Antiepileptic from the facility resumed. No evidence of seizure activity while in the hospital. Supportive care provided. Per psychiatrist , patient had paranoid schizophrenia with acute exacerbation. Psychiatric medication regimen was optimized. Patient clinically stabilized and was ready for transfer back to group home [facility] for continuation of care. FINAL DIAGNOSES: Sepsis (with fevers , elevated lactic acid , recent COVID PNA) of unclear source Acute toxic metabolic encephalopathy Paranoid schizophrenia with acute exacerbation Recent confirmed COVID pneumonia Dysphagia feeding by G-tube High aspiration risk COPD History of CVA Seizure disorder BPH Organic brain syndrome Hypertension DISCHARGE MEDICATIONS: See Medication Reconciliation list. DISCHARGE INSTRUCTIONS: Patient was discharged to the group home facility. Follow up with medical doctor at the facility. Lia Desir NP Dec 29, 2019 07:33
== END 2019-12-28 18:48 | DRG 871 ==
LOC: EDBD 03:53 → EMR 04:18 → 4E 05:21 → EDBEDREQ 09:35
DX: A41.9 Sepsis, unspecified organism (principal); G92 Toxic encephalopathy; F20.0 Paranoid schizophrenia; Z43.1 Encounter for attention to gastrostomy; F33.2 Major depressive disorder, recurrent severe without psychotic features; N17.9 Acute kidney failure, unspecified; Z86.19 Personal history of other infectious and parasitic diseases; R13.10 Dysphagia, unspecified; J44.9 Chronic obstructive pulmonary disease, unspecified; Z86.73 Personal history of transient ischemic attack (TIA), and cerebral infarction without residual deficits; G40.909 Epilepsy, unspecified, not intractable, without status epilepticus; N40.0 Benign prostatic hyperplasia without lower urinary tract symptoms; F09 Unspecified mental disorder due to known physiological condition; I10 Essential (primary) hypertension; Z79.4 Long term (current) use of insulin; E11.9 Type 2 diabetes mellitus without complications; G80.9 Cerebral palsy, unspecified; G20 Parkinson's disease; L89.90 Pressure ulcer of unspecified site, unspecified stage; R62.7 Adult failure to thrive
CPT/HCPCS: 36415; 71045; 80048; 80053; 80202; 81003; 82550; 82553; 82728; 82962; 83605; 83735; 84100; 84484; 85007; 85025; 85379; 85610; 85651; 85730; 86140; 86710; 87040; 87081; 87086; 87181; 87635; 93005; 94664; 96361; 96365; 96368; 99285; J1815; J7030

== ENCOUNTER 2020-03-12 19:27 | Inpatient (IN) | payer MEDICARE, MEDICAID ==
[~2020-03-12] VITALS: Ht 170.2 cm; Wt 77.7 kg
[~2020-03-12 19:27] MED LIST changes: +PRO-STAT LIQUID30 ML GT; +PRO-STAT LIQUID30 ML ORAL; +QUERCETIN DIHYDR1 GM GT; +VITAMIN C250 MG GT; +ZOFRAN4 M1 GT
[2020-03-12 19:30] VITALS: BP 117/77
[2020-03-12] MEDS ORDERED: SANTYL TOPIC (19:34)
--- NOTE | 2020-03-12 19:39 | Emergency Room Report ---
History of Present Illness General Chief Complaint: Abnormal Labs Source: Patient Present Illness HPI 64-year-old male with history of schizophrenia, COPD, diabetes, bedbound and G- tube dependent, history of COVID-19 infection 3 months ago, here with tachycardia and hyperglycemia. Per the group home report patient had a blood glucose level of greater than 400. He was given 12 units of insulin and repeat glucose was around 350. Paramedics were called and on arrival the patient was coughing and was tachycardic in the 130s. This appeared to be sinus tachycardia according to the paramedics. The group home reports that the patient is normally on 2 L nasal cannula. He had normal oxygen saturation. The patient is alert and oriented x0 at his baseline and nursing reports as the patient does not appear to be any more confused than usual. Patient unable to participate in review of systems. Allergies: Coded Allergies: NO KNOWN DRUG ALLERGIES (Unverified Allergy, Unknown, 07/16/19) COVID-19 Screening Contact w/high risk pt: Yes Recent Travel to affected area: No Experienced COVID-19 symptoms?: Yes COVID-19 symptoms experienced: Flu-Like Symptoms COVID-19 Testing performed BUSBOY: Yes - MAY COVID-19 Screening: PUI COVID-19 COVID-19 Testing Source: [employer] [employer] Nursing Documentation-PMH Hx Cardiac Problems: Yes - ANEMIA Hx Hypertension: Yes Hx Pacemaker: No Hx Asthma: No Hx COPD: Yes Hx Diabetes: Yes Hx Cancer: No Hx Gastrointestinal Problems: Yes Hx Dialysis: No - AKF History Of Psychiatric Problem: Yes - SCHIZOPHREMIA Hx Neurological Problems: Yes - CEREBRAL PALSY; MUSCLE WEAKNESS Hx Cerebrovascular Accident: Yes Hx Parkinson's Disease: Yes Hx Seizures: Yes - EPILEPSY Hx Epilepsy: Yes Hx Cerebral Palsy: Yes Hx Speech Problem: Yes Hx Aphasia: Yes Hx Weakness: Yes Review of Systems All Other Systems: limited Narrative Patient unable to participate in review of systems secondary to baseline altered mental status Physical Exam Vital Signs Date Time Temp Pulse Resp B/P (MAP) Pulse Ox O2 Delivery O2 Flow Rate FiO2 03/12/20 19:20 98.6 134 18 117/77 (90) 96 Nasal Cannula 2.0 Sp02 EP Interpretation: reviewed General Appearance: other - Patient appears cachectic, chronically ill. Unresponsive and unable to participate in examination Head: normocephalic, atraumatic Eyes: bilateral eye normal inspection, bilateral eye PERRL ENT: normal pharynx, no angioedema Neck: full range of motion, supple/symm/no masses Respiratory: chest non-tender, other - Rales in all lung [place]. Occasionally actively coughing Cardiovascular #1: no edema, other - Tachycardic 130 bpm, regular rhythm Cardiovascular #2: 2+ carotid (R), 2+ carotid (L), 2+ radial (R), 2+ radial (L) , 2+ dorsalis pedis (R), 2+ dorsalis pedis (L) Gastrointestinal: normal bowel sounds, non tender, soft, non-distended, no guarding, no rebound, other - G-tube in place without any surrounding erythema or induration Rectal: deferred Genitourinary: normal inspection, no CVA tenderness Musculoskeletal: normal range of motion, non-tender, other - Cachectic, diffuse muscle atrophy Neurologic: oriented x3, sensory intact, other - Unresponsive, does not follow commands. Withdraws from pain Lymphatic: no adenopathy Medical Decision Making Diagnostic Impression: Primary Impression: JULIO CÉSRA (acute kidney injury) Additional Impression: Sepsis ER Course Laboratory Tests Test 03/12/20 19:15 03/12/20 21:55 White Blood Count 13.9 K/UL (4.8-10.8) H Red Blood Count 5.39 M/UL (4.70-6.10) Hemoglobin 11.3 G/DL (14.2-18.0) L Hematocrit 36.5 % (42.0-52.0) L Mean Corpuscular Volume 68 FL (80-99) L Mean Corpuscular Hemoglobin 20.9 PG (27.0-31.0) L Mean Corpuscular Hemoglobin Concent 30.9 G/DL (32.0-36.0) L Red Cell Distribution Width 13.4 % (11.6-14.8) Platelet Count 411 K/UL (150-450) Mean Platelet Volume 8.2 FL (6.5-10.1) Neutrophils (%) (Auto) 83.3 % (45.0-75.0) H Lymphocytes (%) (Auto) 10.9 % (20.0-45.0) L Monocytes (%) (Auto) 4.9 % (1.0-10.0) Eosinophils (%) (Auto) 0.1 % (0.0-3.0) Basophils (%) (Auto) 0.8 % (0.0-2.0) Prothrombin Time 11.5 SEC (9.30-11.50) Prothrombin Time INR 1.0 (0.9-1.1) Activated Partial Thromboplast Time 28 SEC (23-33) D-Dimer 1.61 mg/L FEU (0.00-0.49) H Sodium Level 144 MMOL/L (136-145) Potassium Level 3.6 MMOL/L (3.5-5.1) Chloride Level 107 MMOL/L (98-107) Carbon Dioxide Level 25 MMOL/L (21-32) Anion Gap 12 mmol/L (5-15) Blood Urea Nitrogen 45 mg/dL (7-18) H Creatinine 2.0 MG/DL (0.55-1.30) H Estimated Glomerular Filtration Rate 34.0 mL/min (>60) Glucose Level 328 MG/DL (74-106) H Lactic Acid Level 2.70 mmol/L (0.4-2.0) H Pending Calcium Level 10.0 MG/DL (8.5-10.1) Magnesium Level 2.2 MG/DL (1.8-2.4) Ferritin 689 NG/ML (8-388) H Total Bilirubin 0.4 MG/DL (0.2-1.0) Aspartate Amino Transferase (AST) 12 U/L (15-37) L Alanine Aminotransferase (ALT) 22 U/L (12-78) Alkaline Phosphatase 97 U/L (46-116) Lactate Dehydrogenase 230 U/L (81-234) Troponin I 0.000 ng/mL (0.000-0.056) Pro-B-Type Natriuretic Peptide 791 pg/mL (0-125) H Total Protein 9.6 G/DL (6.4-8.2) H Albumin 2.6 G/DL (3.4-5.0) L Globulin 7.0 g/dL Albumin/Globulin Ratio 0.4 (1.0-2.7) L Microbiology Date/Time Source Procedure Growth Status 03/12/20 19:50 Nasopharynx SARS-CoV-2 RdRp Gene Assay - Final Complete 64-year-old male here with tachycardia and elevated blood glucose. On arrival the patient was tachycardic at around 130 to 135 bpm. EKG did not show any acute abnormalities aside from sinus tachycardia. He was given a 30 cc/kg fluid bolus on arrival and heart rate improved to around 115 bpm. Blood pressure was normal throughout his stay in the emergency department. He had a normal oxygen saturation on 2 L nasal cannula. CBC revealed a leukocytosis. CMP showed acute kidney injury with a creatinine of 2.0. Patient records showed that he at baseline has a normal creatinine. Chest x-ray unremarkable. Attempts to place a Alexander catheter and a coud catheter were unsuccessful multiple times by myself and the nursing staff. I discussed this with the patient's primary care provider and the admitting physician were aware and will possibly get urology consultation for catheter placement. Current source of sepsis presumed to be patient possible urinary tract infection in the setting of urinary retention. He received broad-spectrum antibiotics. Patient admitted to telemetry. EKG Diagnostic Results Other Impression Rate 134 bpm. Regular. Normal axis. 1 PAC. Sinus tach. No ST or T wave abnormalities Last Vital Signs Date Time Temp Pulse Resp B/P (MAP) Pulse Ox O2 Delivery O2 Flow Rate FiO2 03/12/20 19:20 98.6 134 18 117/77 (90) 96 Nasal Cannula 2.0 Christopher Connelly M.D. Mar 12, 2020 19:39
[2020-03-12 20:38] LABS: BASOPHILS % (AUTO) 0.8 % (0.0-2.0); EOSINOPHILS % (AUTO) 0.1 % (0.0-3.0); HEMATOCRIT 36.5 % (42.0-52.0); HEMOGLOBIN 11.3 G/DL (14.2-18.0); LYMPHOCYTES % (AUTO) 10.9 % (20.0-45.0); MEAN CORPUSCULAR VOLUME 68 FL (80-99); MONOCYTES % (AUTO) 4.9 % (1.0-10.0); NEUTROPHILS % (AUTO) 83.3 % (45.0-75.0); PLATELET COUNT 411 K/UL (150-450); RED BLOOD COUNT 5.39 M/UL (4.70-6.10); RED CELL DISTRIBUTION WIDTH 13.4 % (11.6-14.8); WHITE BLOOD COUNT 13.9 K/UL (4.8-10.8)
--- NOTE | 2020-03-12 20:43 | Diagnostic Imaging Report ---
EXAM: XR Chest, 1 View CLINICAL HISTORY: SOB TECHNIQUE: Frontal view of the chest. COMPARISON: 12/23/2019 FINDINGS: Lungs: Low lung volumes with bronchovascular crowding. No consolidation, pleural effusion, or pneumothorax. Pleural space: See above. Heart: Unremarkable. No cardiomegaly. Mediastinum: Unremarkable. Bones/joints: No acute abnormality IMPRESSION: 1. Low lung volumes with bronchovascular crowding. 2. Otherwise no acute cardiopulmonary disease. 3. If there is further concern, recommend additional imaging such as CT.
[2020-03-12 20:54] LABS: ANION GAP 12 mmol/L (5-15); BLOOD UREA NITROGEN 45 mg/dL (7-18); CARBON DIOXIDE 25 MMOL/L (21-32); CHLORIDE 107 MMOL/L (98-107); POTASSIUM 3.6 MMOL/L (3.5-5.1); SODIUM 144 MMOL/L (136-145)
[2020-03-12] MEDS ORDERED: Piperacillin/Tazobactam 3.375 GM in NS 110 ML IVPB ONE (21:00)
[2020-03-12 21:10] LABS: ALANINE AMINOTRANSFERASE 22 U/L (12-78); ALBUMIN 2.6 G/DL (3.4-5.0); ALBUMIN/GLOBULIN RATIO 0.4 (1.0-2.7); ALKALINE PHOSPHATASE 97 U/L (46-116); ASPARTATE AMINO TRANSFERASE 12 U/L (15-37); BILIRUBIN,TOTAL 0.4 MG/DL (0.2-1.0); FERRITIN 689 NG/ML (8-388)
[2020-03-12 21:15] VITALS: BP 108/74
[2020-03-12 23:00] VITALS: BP 114/79
[2020-03-13] VITALS: BP 105/73
[2020-03-13 04:00] VITALS: BP 111/66
[2020-03-13 06:07] LABS: APPEARANCE,URINE SLIGHTLY CLOUDY; BILIRUBIN, URINE NEGATIVE (NEGATIVE); COLOR,URINE YELLOW; GLUCOSE, URINE (UA) 2+ (NEGATIVE); KETONES,URINE NEGATIVE (NEGATIVE); LEUKOCYTE ESTERASE ,URINE 2+ (NEGATIVE); NITRITE,URINE POSITIVE (NEGATIVE); PROTEIN,URINE 1+ (NEGATIVE); UROBILINOGEN,URINE NORMAL MG/DL (0.0-1.0)
[2020-03-13] MEDS: NovoLOG Insulin Flexpen SUBQ SCH ×3 (06:41→18:07)
[2020-03-13 08:00] VITALS: BP 103/66
--- NOTE | 2020-03-13 11:52 | Consultation ---
History of Present Illness General Date patient seen: Mar 13, 2020 Time patient seen: 10:00 Chief Complaint: hyperglycemia Referring physician: Dr Johnson Reason for Consultation: COPD sepsis, poss PNA Present Illness HPI 64 years old male, [facility], with PMH of CVA, seizure disorder, cerebral palsy, COPD, hypertension, dysphagia, feeding by G- tube, schizophrenia, was sent for evaluation due to tachycardia and hyperglycemia. Patient had confirmed COVID infection prior, about 3 months, ago. COVID test x 2 in November was negative , the last time he was hospitalized. Per snf staff, blood sugar was above 400. Patient received 12 units of insulin , and repeat blood glucose level was 350. Paramedics were called. Upon arrival patient was coughing and was tachycardic with heart rate in 130s. It appeared to be sinus tachycardia , according to paramedics. Patient normally on 2 L of oxygen via nasal cannula. Pulse oximetry was stable. Upon evaluation in emergency department patient was tachycardic with heart rate 134 , pulse oximetry on 2 L of oxygen was 96% . Patient was afebrile . Laboratory work-up revealed leukocytosis WBC 13.9, hemoglobin 11.3, hematocrit 36.5 ,platelet count 411. Sodium 144, potassium 3.6 ,anion gap 12. BUN 45, creatinine 2.0. Glucose 328. Lactic acid 2.7. Ferritin 689. LDH 230. D-dimer 1.61 Stable LFT. Troponin negative, pro BNP 791 . EKG revealed sinus tachycardia. Albumin 2.6. Rapid COVID 19 NGT. Chest x-ray revealed low lung volumes with bronchovascular crowding. Otherwise no acute cardiopulmonary disease. Urinalysis revealed pyuria , moderate bacteria, +1 protein. Pulmonary consult was requested to assist in management of this patient. Allergies: Coded Allergies: NO KNOWN DRUG ALLERGIES (Unverified Allergy, Unknown, 07/16/19) Medication History Scheduled Amino Acids/Protein Hydrolys (Pro-Stat Liquid), 30 ML ORAL DAILY, (Reported) Amino Acids/Protein Hydrolys (Pro-Stat Liquid), 30 ML GT DAILY, (Reported) Ascorbic Acid* (Vitamin C*), 500 MG GT TWICE A DAY, (Reported) Ascorbic Acid* (Vitamin C*), 250 MG GT DAILY, (Reported) Clotrimazole* (Lotrimin*), 1 APPLIC TOPIC TWICE A DAY, (Reported) Docusate Sodium (Docusate Sodium), 100 MG GT TWICE A DAY, (Reported) Famotidine (Pepcid), 20 MG ORAL BEDTIME, (Reported) Finasteride* (Proscar*), 5 MG GT DAILY, (Reported) Heparin Sod (Porcine) (Heparin Sodium*), 5,000 UNITS SUBQ EVERY 12 HOURS, ( Reported) Heparin Sod (Porcine) (Heparin Sodium*), 5,000 UNITS SUBQ EVERY 12 HOURS, ( Reported) Heparin Sod (Porcine) (Heparin Sodium*), 5,000 UNITS SUBQ EVERY 12 HOURS, ( Reported) Insulin Detemir (Levemir Flextouch), 15 UNIT SQ ACBREAKFAST, (Reported) Lacosamide (Vimpat), 100 MG GT EVERY 12 HOURS, (Reported) Levetiracetam (Keppra), 1,000 MG GT TID, (Reported) Magnesium Hydroxide (Milk of Magnesia), 30 ML GT BEDTIME, (Reported) Magnesium Hydroxide (Milk of Magnesia), 30 ML GT DAILY, (Reported) Metoprolol Tartrate* (Metoprolol Tartrate*), 25 MG GT EVERY 12 HOURS, (Reported) Multivitamin Liquid* (Multi-Delyn*), 5 ML GT DAILY, (Reported) Na Phos,M-B/Na Phos,Di-Ba* (Fleet Enema*), 133 ML RECTAL DAILY, (Reported) Omeprazole (Omeprazole), 20 MG GT DAILY, (Reported) Potassium Chloride (Potassium Chloride), 40 MEQ GT BID, (Reported) Quercetin Dihydrate (Quercetin Dihydrate), 500 MG GT BEFORE BREAKFAST, (Reported ) Risperidone* (Risperdal*), 1 MG GT DAILY, (Reported) Sennosides/Docusate Sodium (Senna Laxative Tablet), 2 EACH GT QHS, (Reported) Temazepam* (Restoril*), 15 MG ORAL BEDTIME, (Reported) Zinc Sulfate (Zinc Sulfate*), 220 MG ORAL DAILY, (Reported) Scheduled PRN Acetaminophen* (Acetaminophen 325MG Tablet*), 650 MG GT Q4H PRN for Fever/ Headache/Mild Pain, (Reported) Acetaminophen* (Acetaminophen 325MG Tablet*), 325 MG ORAL Q4H PRN for , ( Reported) Bisacodyl (Dulcolax), 10 MG RC DAILY PRN for Constipation, (Reported) Ipratropium/Albuterol Sulfate (DuoNeb 0.5-3(2.5)mg/3ml), 3 ML HHN Q4HR PRN for Shortness of Breath, (Reported) Lorazepam* (Ativan*), 1 MG ORAL EVERY 6 HOURS PRN for Agitation, (Reported) Na Phos,M-B/Na Phos,Di-Ba* (Fleet Enema*), 133 ML RECTAL DAILY PRN for Constipation, (Reported) Nitroglycerin (Nitroglycerin), 0.4 MG SL q5mns x three doses PRN for chest pain, (Reported) Ondansetron (Zofran), 4 MG GT Q6H PRN for Nausea & Vomiting, (Reported) Ondansetron* (Zofran*), 4 MG GT Q6H PRN for Nausea & Vomiting, (Reported) Polyethylene Glycol 3350* (Miralax*), 17 GM GT DAILY PRN for Constipation, ( Reported) Miscellaneous Medications Insulin Aspart (Novolog Flexpen), (Reported) Magnesium Hydroxide* (Milk Of Magnesia*), 30 ML GT, (Reported) Risperidone (Risperdal), 1 MG GT, (Reported) [Santyl], 250 GM TOPIC, (Reported) Patient History Healthcare decision maker Resuscitation status Full code Advanced Directive on File Past Medical/Surgical History Past Medical/Surgical History: (1) Diabetes (2) Schizophrenia (3) Seizure disorder (4) Hypertension (5) Feeding by G-tube (6) C. difficile colitis (7) Decubitus ulcer (8) Parkinson disease (9) COPD (chronic obstructive pulmonary disease) Review of Systems ROS Narrative unable to obtain 2 to aptient's mental status Physical Exam General Appearance: other - chroncially ill looking, bed ridden poorly responsive male in NAD Lines, tubes and drains: peripheral HEENT: normocephalic, atraumatic, anicteric Neck: normal alignment Respiratory/Chest: lungs clear, no respiratory distress Cardiovascular/Chest: normal peripheral pulses, tachycardia - ST on tele Abdomen: normal bowel sounds, non tender, soft, feeding tube - G tube Neurologic: abnormal gait - bedridden , other - poorly responsive, nonverbal, Musculoskeletal: atrophy Last 24 Hour Vital Signs Date Time Temp Pulse Resp B/P (MAP) Pulse Ox O2 Delivery O2 Flow Rate FiO2 03/13/20 08:00 125 03/13/20 08:00 97.5 125 20 103/66 (78) 98 03/13/20 04:00 98.8 110 22 111/66 (81) 98 03/13/20 04:00 127 03/13/20 00:00 99.1 120 20 105/73 (84) 97 03/13/20 00:00 121 03/12/20 23:49 Nasal Cannula 2.0 03/12/20 23:12 122 03/12/20 23:00 99.5 122 21 114/79 (91) 100 03/12/20 22:30 98.6 116 30 102/71 99 Nasal Cannula 2.0 03/12/20 21:15 98.6 119 30 108/74 99 Nasal Cannula 2.0 03/12/20 19:30 98.6 134 18 117/77 96 Nasal Cannula 2.0 03/12/20 19:20 98.6 134 18 117/77 (90) 96 Nasal Cannula 2.0 Intake and Output 03/12/20 03/13/20 19:00 07:00 Intake Total 3030 ml Balance 3030 ml Intake Free Water 250 ml IV Total 2700 ml Tube Feeding 80 ml # Bowel Movements 1 Laboratory Tests Test 03/12/20 19:15 03/12/20 21:55 03/13/20 05:30 03/13/20 06:11 White Blood Count 13.9 K/UL (4.8-10.8) H Red Blood Count 5.39 M/UL (4.70-6.10) Hemoglobin 11.3 G/DL (14.2-18.0) L Hematocrit 36.5 % (42.0-52.0) L Mean Corpuscular Volume 68 FL (80-99) L Mean Corpuscular Hemoglobin 20.9 PG (27.0-31.0) L Mean Corpuscular Hemoglobin Concent 30.9 G/DL (32.0-36.0) L Red Cell Distribution Width 13.4 % (11.6-14.8) Platelet Count 411 K/UL (150-450) Mean Platelet Volume 8.2 FL (6.5-10.1) Neutrophils (%) (Auto) 83.3 % (45.0-75.0) H Lymphocytes (%) (Auto) 10.9 % (20.0-45.0) L Monocytes (%) (Auto) 4.9 % (1.0-10.0) Eosinophils (%) (Auto) 0.1 % (0.0-3.0) Basophils (%) (Auto) 0.8 % (0.0-2.0) Prothrombin Time 11.5 SEC (9.30-11.50) Prothromb Time International Ratio 1.0 (0.9-1.1) Activated Partial Thromboplast Time 28 SEC (23-33) D-Dimer 1.61 mg/L FEU (0.00-0.49) H Sodium Level 144 MMOL/L (136-145) Potassium Level 3.6 MMOL/L (3.5-5.1) Chloride Level 107 MMOL/L (98-107) Carbon Dioxide Level 25 MMOL/L (21-32) Anion Gap 12 mmol/L (5-15) Blood Urea Nitrogen 45 mg/dL (7-18) H Creatinine 2.0 MG/DL (0.55-1.30) H Estimat Glomerular Filtration Rate 34.0 mL/min (>60) Glucose Level 328 MG/DL (74-106) H Lactic Acid Level 2.70 mmol/L (0.4-2.0) H 1.90 mmol/L (0.66-2.22) Calcium Level 10.0 MG/DL (8.5-10.1) Magnesium Level 2.2 MG/DL (1.8-2.4) Ferritin 689 NG/ML (8-388) H Total Bilirubin 0.4 MG/DL (0.2-1.0) Aspartate Amino Transf (AST/SGOT) 12 U/L (15-37) L Alanine Aminotransferase (ALT/SGPT) 22 U/L (12-78) Alkaline Phosphatase 97 U/L (46-116) Lactate Dehydrogenase 230 U/L (81-234) Troponin I 0.000 ng/mL (0.000-0.056) Pro-B-Type Natriuretic Peptide 791 pg/mL (0-125) H Total Protein 9.6 G/DL (6.4-8.2) H Albumin 2.6 G/DL (3.4-5.0) L Globulin 7.0 g/dL Albumin/Globulin Ratio 0.4 (1.0-2.7) L Urine Color Yellow Urine Appearance Slightly cloudy Urine pH 6.0 (4.5-8.0) Urine Specific [place] 1.005 (1.005-1.035) Urine Protein 1+ (NEGATIVE) H Urine Glucose (UA) 2+ (NEGATIVE) H Urine Ketones Negative (NEGATIVE) Urine Blood 2+ (NEGATIVE) H Urine Nitrite Positive (NEGATIVE) H Urine Bilirubin Negative (NEGATIVE) Urine Urobilinogen Normal MG/DL (0.0-1.0) Urine Leukocyte Esterase 2+ (NEGATIVE) H Urine RBC 20-30 /HPF (0 - 0) H Urine WBC Tntc /HPF (0 - 0) H Urine Squamous Epithelial Cells Occasional /LPF Urine Bacteria Moderate /HPF (NONE) H POC Whole Blood Glucose 255 MG/DL (74-106) H Microbiology Date/Time Source Procedure Growth Status 03/12/20 19:50 Nasopharynx SARS-CoV-2 RdRp Gene Assay - Final Complete Height (Feet): 5 Height (Inches): 7.00 Weight (Pounds): 146 Medications Current Medications Medications (Trade) Dose Ordered Sig/Monalisa Route PRN Reason Start Time Stop Time Status Last Admin Dose Admin Dextrose (Dextrose 50%) 25 ml Q30M PRN IV Hypoglycemia 03/13/20 00:30 06/11/20 00:29 Dextrose (Dextrose 50%) 50 ml Q30M PRN IV Hypoglycemia 03/13/20 00:30 06/11/20 00:29 Docusate Sodium (Colace) 100 mg TWICE A DAY GT 03/13/20 18:00 04/12/20 17:59 Famotidine (Pepcid) 20 mg BEDTIME GT 03/13/20 21:00 06/11/20 20:59 UNV Finasteride (Proscar) 5 mg DAILY ORAL 03/14/20 09:00 06/12/20 08:59 UNV Insulin Aspart (NovoLOG) Q6HR SUBQ 03/13/20 06:00 06/11/20 05:59 03/13/20 06:41 Levetiracetam (Keppra) 1,000 mg TID GT 03/13/20 13:00 04/27/20 12:59 UNV Metoprolol Tartrate (Lopressor) 25 mg Q12HR GT 03/13/20 21:00 06/11/20 20:59 UNV Ondansetron HCl (Zofran) 4 mg Q6H PRN GT Nausea & Vomiting 03/13/20 11:30 04/12/20 11:29 UNV Assessment/Plan Assessment/Plan: ASSESSMENT sepsis UTI JULIO CÉSAR Hyperglycemia associated with DM COPD Aspiration risk HTN Sinus tachycardia Cerebral palsy hx of CVA Seizure disorder Protein calorie malnutrition PLAN OF CARE tele start empiric abx : Zosyn and Vanco fup with cx ID consult pending O2 prn ,titrate to keep sat above 92 % pulm toilet fup with CXR in am DVT and GI prophayxlsi venous Dupelx BLE aspirations precautions start TF slow dietary eval re protein supplements and TF formula and goal rate resume BB, BP management ST likely due to sepsis , ECHO IVF cardio eval pending with further recommendations check TSH, lipid panel BS management with SSI, check HgA1c seizure precautions, continue Keppra supportive care case discussed and evaluated by supervising physician Lia Desir NP Mar 13, 2020 11:52
[2020-03-13 12:00] VITALS: BP 104/64
[2020-03-13] MEDS ORDERED: Albuterol/Ipratropium 3ml neb HHN PRN (12:00)
[2020-03-13] MEDS: levETIRAcetam 500mg/5ml Liquid GT SCH ×2 (12:11→17:47)
[2020-03-13] MEDS ORDERED: Acetaminophen 650mg/20.3ml GT PRN (12:45)
[2020-03-13] MEDS ORDERED: Acetaminophen 650mg/20.3ml ORAL PRN (12:45)
[2020-03-13] MEDS: Piperacillin/Tazobactam 3.375 GM in NS 110 ML IVPB SCH ×2 (13:39→22:03)
--- NOTE | 2020-03-13 13:41 | Cardiac Electrophysiology PN ---
Subjective Subjective [id number] Objective Last 24 Hour Vital Signs Date Time Temp Pulse Resp B/P (MAP) Pulse Ox O2 Delivery O2 Flow Rate FiO2 03/13/20 08:00 125 03/13/20 08:00 97.5 125 20 103/66 (78) 98 03/13/20 04:00 98.8 110 22 111/66 (81) 98 03/13/20 04:00 127 03/13/20 00:00 99.1 120 20 105/73 (84) 97 03/13/20 00:00 121 03/12/20 23:49 Nasal Cannula 2.0 03/12/20 23:12 122 03/12/20 23:00 99.5 122 21 114/79 (91) 100 03/12/20 22:30 98.6 116 30 102/71 99 Nasal Cannula 2.0 03/12/20 21:15 98.6 119 30 108/74 99 Nasal Cannula 2.0 03/12/20 19:30 98.6 134 18 117/77 96 Nasal Cannula 2.0 03/12/20 19:20 98.6 134 18 117/77 (90) 96 Nasal Cannula 2.0 Intake and Output 03/12/20 03/13/20 19:00 07:00 Intake Total 3030 ml Balance 3030 ml Intake Free Water 250 ml IV Total 2700 ml Tube Feeding 80 ml # Bowel Movements 1 Laboratory Tests Test 03/12/20 19:15 03/12/20 21:55 03/13/20 05:30 03/13/20 06:11 White Blood Count 13.9 K/UL (4.8-10.8) H Red Blood Count 5.39 M/UL (4.70-6.10) Hemoglobin 11.3 G/DL (14.2-18.0) L Hematocrit 36.5 % (42.0-52.0) L Mean Corpuscular Volume 68 FL (80-99) L Mean Corpuscular Hemoglobin 20.9 PG (27.0-31.0) L Mean Corpuscular Hemoglobin Concent 30.9 G/DL (32.0-36.0) L Red Cell Distribution Width 13.4 % (11.6-14.8) Platelet Count 411 K/UL (150-450) Mean Platelet Volume 8.2 FL (6.5-10.1) Neutrophils (%) (Auto) 83.3 % (45.0-75.0) H Lymphocytes (%) (Auto) 10.9 % (20.0-45.0) L Monocytes (%) (Auto) 4.9 % (1.0-10.0) Eosinophils (%) (Auto) 0.1 % (0.0-3.0) Basophils (%) (Auto) 0.8 % (0.0-2.0) Prothrombin Time 11.5 SEC (9.30-11.50) Prothromb Time International Ratio 1.0 (0.9-1.1) Activated Partial Thromboplast Time 28 SEC (23-33) D-Dimer 1.61 mg/L FEU (0.00-0.49) H Sodium Level 144 MMOL/L (136-145) Potassium Level 3.6 MMOL/L (3.5-5.1) Chloride Level 107 MMOL/L (98-107) Carbon Dioxide Level 25 MMOL/L (21-32) Anion Gap 12 mmol/L (5-15) Blood Urea Nitrogen 45 mg/dL (7-18) H Creatinine 2.0 MG/DL (0.55-1.30) H Estimat Glomerular Filtration Rate 34.0 mL/min (>60) Glucose Level 328 MG/DL (74-106) H Lactic Acid Level 2.70 mmol/L (0.4-2.0) H 1.90 mmol/L (0.66-2.22) Calcium Level 10.0 MG/DL (8.5-10.1) Magnesium Level 2.2 MG/DL (1.8-2.4) Ferritin 689 NG/ML (8-388) H Total Bilirubin 0.4 MG/DL (0.2-1.0) Aspartate Amino Transf (AST/SGOT) 12 U/L (15-37) L Alanine Aminotransferase (ALT/SGPT) 22 U/L (12-78) Alkaline Phosphatase 97 U/L (46-116) Lactate Dehydrogenase 230 U/L (81-234) Troponin I 0.000 ng/mL (0.000-0.056) Pro-B-Type Natriuretic Peptide 791 pg/mL (0-125) H Total Protein 9.6 G/DL (6.4-8.2) H Albumin 2.6 G/DL (3.4-5.0) L Globulin 7.0 g/dL Albumin/Globulin Ratio 0.4 (1.0-2.7) L Urine Color Yellow Urine Appearance Slightly cloudy Urine pH 6.0 (4.5-8.0) Urine Specific [place] 1.005 (1.005-1.035) Urine Protein 1+ (NEGATIVE) H Urine Glucose (UA) 2+ (NEGATIVE) H Urine Ketones Negative (NEGATIVE) Urine Blood 2+ (NEGATIVE) H Urine Nitrite Positive (NEGATIVE) H Urine Bilirubin Negative (NEGATIVE) Urine Urobilinogen Normal MG/DL (0.0-1.0) Urine Leukocyte Esterase 2+ (NEGATIVE) H Urine RBC 20-30 /HPF (0 - 0) H Urine WBC Tntc /HPF (0 - 0) H Urine Squamous Epithelial Cells Occasional /LPF Urine Bacteria Moderate /HPF (NONE) H POC Whole Blood Glucose 255 MG/DL (74-106) H Test 03/13/20 12:05 POC Whole Blood Glucose 216 MG/DL (74-106) H Microbiology Date/Time Source Procedure Growth Status 03/12/20 19:50 Nasopharynx SARS-CoV-2 RdRp Gene Assay - Final Complete Sage Araujo MD Mar 13, 2020 13:41
[2020-03-13] MEDS ORDERED: Vancomycin 1.5gm/NS Premix IVPB ONE (14:00)
[2020-03-13 16:00] VITALS: BP 108/63
[2020-03-13] MEDS: Docusate 100mg/10ml Liq GT SCH (17:47)
[2020-03-13] MEDS: Ascorbic Acid 500mg tab GT SCH (17:47)
[2020-03-13] MEDS ORDERED: Docusate 100mg cap ORAL SCH (18:00)
[2020-03-13] MEDS ORDERED: LORazepam 1mg tab ORAL PRN (19:30)
--- NOTE | 2020-03-13 19:45 | Consultation ---
DATE OF CONSULTATION: 03/13/2020 CARDIOLOGY CONSULTATION CONSULTING PHYSICIAN: Sage Araujo MD. REFERRING PHYSICIAN: Donaldo Johnson DO. REASON FOR CONSULTATION: Tachycardia. HISTORY OF PRESENT ILLNESS: Patient is a 64-year-old gentleman with history of hypertension and confirmed COVID pneumonia about 3 months ago, who is resident of a retirement facility with history of CVA, seizure disorder, cerebral palsy, dysphagia status post G-tube, and schizophrenia who was sent for evaluation of tachycardia and hyperglycemia. Per halfway staff, patient's blood sugar was above 400. Patient received 12 units of insulin. Upon arrival of the paramedics, patient was tachycardic, heart rate in the 130s, sinus tachycardia. Patient is on 2 liters of nasal cannula. Pulse oximeter was stable. In the ER, patient's heart rate was still 130s. Patient's BUN was 45 and creatinine of 2.0. Lactic acid of 2.7. Initial troponin was negative with BNP of 791. REVIEW OF SYSTEMS: Negative other than what was mentioned in history of present illness though at this time patient is primarily nonverbal. PAST MEDICAL HISTORY: As mentioned above. FAMILY HISTORY: Noncontributory. SOCIAL HISTORY: custodial resident. Does not smoke or drink alcohol. ALLERGIES: No known drug allergies. PHYSICAL EXAMINATION: VITAL SIGNS: Show blood pressure of 102/66, pulse is 125, respirations 18, temperature is 97.5. HEAD AND NECK: Shows no JVD. LUNGS: Decreased breath sounds. CARDIOVASCULAR: Shows regular S1 and S2. Tachycardic. ABDOMEN: Soft. The G-tube is intact. EXTREMITIES: No pitting edema. LABORATORY AND DIAGNOSTIC DATA: His EKG shows sinus tachycardia with a rate of 134. His labs show white count of 13.9, hemoglobin 11.7, hematocrit 36.5, and platelet count is 411. Sodium is 144, potassium 3.6, BUN of 45, creatinine of 2.0, and glucose of 328. Troponin is negative. ASSESSMENT AND PLAN: 1. Sinus tachycardia, likely due to sepsis and respiratory failure. Patient has lactic acidosis. His first troponin is negative. We will repeat a troponin and get an echocardiogram for further evaluation. 2. Hypertension. Patient is on metoprolol 25 mg b.i.d. that would be continued that will help with patient's tachycardia as well. 3. Lactic acidosis and sepsis, on IV antibiotic. 4. Dysphagia, status post G-tube placement. 5. Uncontrolled diabetes and glucose. 6. History of COVID-19 pneumonia, currently off isolation. Thank you very much for allowing me to participate in the care of this patient. Please do not hesitate to contact me for any questions regarding my evaluation. Sgae Araujo M.D. DR: ELIZABETH JOB#: [id number] CC:
[2020-03-13 20:00] VITALS: BP 99/65
[2020-03-13] MEDS: Heparin 5000 units/ml inj SUBQ SCH (20:30)
--- NOTE | 2020-03-13 21:30 | Consultation ---
DATE OF CONSULTATION: 03/13/2020 INITIAL PSYCHIATRIC CONSULTATION CONSULTING PHYSICIAN: Enrrique Escudero MD. HISTORY OF PRESENT ILLNESS: This is a 64-year-old male patient. This patient was admitted to [facility] secondary to tachycardia, hyperglycemia as well as other medical complications such as sepsis and seizure disorder, but he has overlying diagnosis of paranoid schizophrenia. That is why, daily psychiatric consultation requested for this patient to be seen by Psychiatry. This patient basically came in. He is at [place] [facility] [place]. Had a blood glucose level that was elevated, so he came in to get his hyperglycemic episode taken care of, but he has altered mental status, confusion, and decline in cognition below his baseline. That is why, his attending has requested daily psychiatric consultation. He is confused, disorganized. He is relatively poor historian. That is why, a lot of information had been obtained through chart review. I do see this patient in [place] as well. PSYCHOTROPIC MEDICATIONS ON ADMISSION: Patient is currently on a psychotropic medication regimen of Risperdal 1 mg per G-tube daily as well as Ativan 1 mg every 6 hours p.r.n. anxiety, agitation. ALLERGIES: No known drug allergies. MEDICAL HISTORY: He has a history of sepsis, acute renal disease, diabetes, seizure disorder, urinary tract infection, C. diff colitis. SUBSTANCE ABUSE HISTORY: Denies. PAIN ASSESSMENT: 0/10 pain. DEVELOPMENTAL PROBLEMS: Denies. FAMILY PSYCHIATRIC HISTORY: Denies. SOCIAL HISTORY: Patient lives in a [place] [facility] [place] [facility]. He is financially supported by [email or web address] and Medicare. No legal problems. Family interaction and relationships are poor. PSYCHIATRIC HISTORY: Paranoid schizophrenia. He has been seen by my psychiatric group multiple times in the [place] [facility] [place] as well as in the hospital. STRENGTHS: He is motivated to get better and he has a place to live. WEAKNESSES: Impulsive, minimal support system. MENTAL STATUS EXAMINATION: This is a 64-year-old male. His appearance is disheveled. Attitude, irritable and agitated. Affect, guarded and restricted. Intellect poor. He does know current events, does not know last four presidents. Mood, depressed and anxious. Motor activity, psychomotor agitation. Attention span is poor because he cannot do serial sevens and spell world backwards. Orientation x2 person and place, not time and situation. Speech is nonsensical. Thought process, disorganized and illogical. Thought content, paranoid delusions. Perception is poor because of perceptual disturbance such as paranoid delusions. Abstract reasoning is poor because he does not understand proverbs and only has concrete thinking. Insight is poor because he does not recognize having a psych disorder. Judgment is poor because he cannot make medical decisions for himself. He has no signs of any suicidal or homicidal thoughts. Short-term memory, 0 out of 3 after 3-word recall, so poor short-term memory. Long-term memory is intact based on his knowledge of long-term events in his life such as high school he went to. DIAGNOSES: 1. Paranoid schizophrenia with acute exacerbation. 2. There is no secondary. 3. Medical, sepsis, acute renal disease, diabetes, tachycardia, urinary tract infection. 4. Psychosocial stressors financial. 5. Functional impairment is mild. PLAN: My plan for this patient, I am going to continue to treat this patient with psychotropic medication regimen consisting of Risperdal at a dose of 1 mg p.o. at bedtime and also I am going to treat this patient with a medication regimen of Ativan at a dose of 1 mg every 6 hours p.r.n. anxiety and agitation. Encouraged him to interact appropriately with staff and other patients. Twenty minutes of insight-oriented psychotherapy was provided to help with this patient to improve his concentration and his awareness with physical and psychiatric condition, so he has better impulse control, less anxiety and depression. Twenty minutes of insight-oriented psychotherapy. Chart reviewed. Discussed with staff. Patient is seen and assessed at bedside. Enrrique Escudero M.D. DR: VANITA JOB#: [id number] CC:
[2020-03-14] VITALS: BP 101/67
[2020-03-14] MEDS: NovoLOG Insulin Flexpen SUBQ SCH ×4 (00:26→17:56)
--- NOTE | 2020-03-14 01:00 | History and Physical Report ---
DATE OF ADMISSION: 03/12/[address] Donaldo Johnson. HISTORY OF PRESENT ILLNESS: The patient is nonverbal, very poor historian, cannot get any history from the patient. The patient is being admitted for tachycardia, sepsis, leukocytosis. The patient is nonverbal. Chest x-ray according to the ER doctor does not show any acute pneumonia on the preliminary report. The patient has history of COVID about 3 months ago. The patient also has elevated sugar. Comes from a assisted. He was also tachycardic initially. The patient was on 2 liters of oxygen and cannot get any history from the patient. PAST MEDICAL HISTORY: Does have history of COVID pneumonia, history of hypertension, history of anemia, history of COPD, history of diabetes, history of GERD, history of cerebral palsy, muscle weakness, schizophrenia, history of seizures, history of aphasia, weakness, and also had BPH. PAST SURGICAL HISTORY: PEG. ALLERGIES: No known allergies. FAMILY HISTORY: Noncontributory. SOCIAL HISTORY: No history of smoking, alcohol, or illicit drugs. Comes from a facility. MEDICATIONS: Vitamin C, bisacodyl, Pepcid, finasteride, lorazepam, insulin, risperidone, Senokot. REVIEW OF SYSTEMS: Unable to obtain, poor historian. PHYSICAL EXAMINATION: VITAL SIGNS: Temperature is 97.9, pulse is 128, blood pressure 108/63. HEENT: PERRLA. NECK: Supple. No lymphadenopathy. CHEST: Clear to auscultation. CARDIOVASCULAR: The patient is tachycardic. ABDOMEN: Soft, nontender. No organomegaly EXTREMITIES: No edema. NEUROLOGIC: Nonverbal. Generalized weakness. Reflexes equal on both sides. LABORATORY AND DIAGNOSTIC DATA: WBC of 13.9, hemoglobin of 11.3, platelets of 411. Glucose of 255. Chest x-ray does not show any acute signs of pneumonia. ASSESSMENT AND PLAN: Tachycardia, sepsis, leukocytosis, and tachycardia. I have asked Dr. Song, Dr. Gracia, Dr. Araujo, and Dr. Patrick to see the patient because Dr. Patrick needs to place a Alexander and not for urinary retention and BPH, and also Dr. Araujo for tachycardia and Dr. Gracia and Dr. Song have been consulted for the pneumonia and sepsis. Antibiotics per Dr. Song. Amy Martínez M.D. DR: ARTEMIO JOB#: [id number] CC:
[2020-03-14 04:00] VITALS: BP 104/71
[2020-03-14] MEDS: Piperacillin/Tazobactam 3.375 GM in NS 110 ML IVPB SCH ×3 (05:42→22:00)
--- NOTE | 2020-03-14 07:00 | Consultation ---
History of Present Illness General Date patient seen: Mar 14, 2020 Chief Complaint: Abnormal Labs Referring physician: Dr Johnson Reason for Consultation: Sepsis Present Illness HPI 64yo M, non-verbal, who presents from SNF with tachycardia and hyperglycmia, ID c/s given c/f sepsis. Pt is non-verbal. History obtained via chart review. Pt has been AF and HDS, started on IV abx and fluids. Urinary catheter had difficult placement, but achieved, and UA w/ pyuria. Pt has h/o COVID infection 3mo ago. PMH/PSH: CVA, seizure disorder, cerebral palsy, COPD, hypertension, dysphagia, feeding by G-tube, schizophrenia NKDA Fam hx: Non-contributory Social hx: Resides at [facility] Allergies: Coded Allergies: NO KNOWN DRUG ALLERGIES (Unverified Allergy, Unknown, 07/16/19) Medication History Scheduled Amino Acids/Protein Hydrolys (Pro-Stat Liquid), 30 ML ORAL DAILY, (Reported) Amino Acids/Protein Hydrolys (Pro-Stat Liquid), 30 ML GT DAILY, (Reported) Ascorbic Acid* (Vitamin C*), 500 MG GT TWICE A DAY, (Reported) Ascorbic Acid* (Vitamin C*), 250 MG GT DAILY, (Reported) Clotrimazole* (Lotrimin*), 1 APPLIC TOPIC TWICE A DAY, (Reported) Docusate Sodium (Docusate Sodium), 100 MG GT TWICE A DAY, (Reported) Famotidine (Pepcid), 20 MG ORAL BEDTIME, (Reported) Finasteride* (Proscar*), 5 MG GT DAILY, (Reported) Heparin Sod (Porcine) (Heparin Sodium*), 5,000 UNITS SUBQ EVERY 12 HOURS, ( Reported) Heparin Sod (Porcine) (Heparin Sodium*), 5,000 UNITS SUBQ EVERY 12 HOURS, ( Reported) Heparin Sod (Porcine) (Heparin Sodium*), 5,000 UNITS SUBQ EVERY 12 HOURS, ( Reported) Insulin Detemir (Levemir Flextouch), 15 UNIT SQ ACBREAKFAST, (Reported) Lacosamide (Vimpat), 100 MG GT EVERY 12 HOURS, (Reported) Levetiracetam (Keppra), 1,000 MG GT TID, (Reported) Magnesium Hydroxide (Milk of Magnesia), 30 ML GT BEDTIME, (Reported) Magnesium Hydroxide (Milk of Magnesia), 30 ML GT DAILY, (Reported) Metoprolol Tartrate* (Metoprolol Tartrate*), 25 MG GT EVERY 12 HOURS, (Reported) Multivitamin Liquid* (Multi-Delyn*), 5 ML GT DAILY, (Reported) Na Phos,M-B/Na Phos,Di-Ba* (Fleet Enema*), 133 ML RECTAL DAILY, (Reported) Omeprazole (Omeprazole), 20 MG GT DAILY, (Reported) Potassium Chloride (Potassium Chloride), 40 MEQ GT BID, (Reported) Quercetin Dihydrate (Quercetin Dihydrate), 500 MG GT BEFORE BREAKFAST, (Reported ) Risperidone* (Risperdal*), 1 MG GT DAILY, (Reported) Sennosides/Docusate Sodium (Senna Laxative Tablet), 2 EACH GT QHS, (Reported) Temazepam* (Restoril*), 15 MG ORAL BEDTIME, (Reported) Zinc Sulfate (Zinc Sulfate*), 220 MG ORAL DAILY, (Reported) Scheduled PRN Acetaminophen* (Acetaminophen 325MG Tablet*), 650 MG GT Q4H PRN for Fever/ Headache/Mild Pain, (Reported) Acetaminophen* (Acetaminophen 325MG Tablet*), 325 MG ORAL Q4H PRN for , ( Reported) Bisacodyl (Dulcolax), 10 MG RC DAILY PRN for Constipation, (Reported) Ipratropium/Albuterol Sulfate (DuoNeb 0.5-3(2.5)mg/3ml), 3 ML HHN Q4HR PRN for Shortness of Breath, (Reported) Lorazepam* (Ativan*), 1 MG ORAL EVERY 6 HOURS PRN for Agitation, (Reported) Na Phos,M-B/Na Phos,Di-Ba* (Fleet Enema*), 133 ML RECTAL DAILY PRN for Constipation, (Reported) Nitroglycerin (Nitroglycerin), 0.4 MG SL q5mns x three doses PRN for chest pain, (Reported) Ondansetron (Zofran), 4 MG GT Q6H PRN for Nausea & Vomiting, (Reported) Ondansetron* (Zofran*), 4 MG GT Q6H PRN for Nausea & Vomiting, (Reported) Polyethylene Glycol 3350* (Miralax*), 17 GM GT DAILY PRN for Constipation, ( Reported) Miscellaneous Medications Insulin Aspart (Novolog Flexpen), (Reported) Magnesium Hydroxide* (Milk Of Magnesia*), 30 ML GT, (Reported) Risperidone (Risperdal), 1 MG GT, (Reported) [Santyl], 250 GM TOPIC, (Reported) Patient History Healthcare decision maker Resuscitation status Advanced Directive on File Review of Systems ROS Narrative Unable to obtain 2/2 pt condition Physical Exam Physical Exam Narrative Gen: Older man, laying in bed, NAD HEENT: EOMI, PERRL, OP clear CV: RRR Pulm: CTAB anteriorly Abd: Soft, NTND, +PEG Ext: No c/c/e Neuro: Non-verbal Last 24 Hour Vital Signs Date Time Temp Pulse Resp B/P (MAP) Pulse Ox O2 Delivery O2 Flow Rate FiO2 03/14/20 04:00 117 03/14/20 04:00 98.8 117 24 104/71 (82) 97 03/14/20 00:00 98.1 114 23 101/67 (78) 97 03/14/20 00:00 116 03/13/20 21:00 Nasal Cannula 1.0 03/13/20 20:31 122 111/69 03/13/20 20:00 118 03/13/20 20:00 96.6 121 26 99/65 (76) 99 03/13/20 16:00 98.1 128 20 108/63 (78) 96 03/13/20 16:00 127 03/13/20 12:00 97.9 128 20 104/64 (77) 95 03/13/20 12:00 126 03/13/20 09:00 Nasal Cannula 2.0 03/13/20 08:00 125 03/13/20 08:00 97.5 125 20 103/66 (78) 98 Intake and Output 03/13/20 03/14/20 19:00 07:00 Intake Total 125 ml 1800 ml Output Total 1850 ml Balance 125 ml -50 ml Intake Free Water 500 ml IV Total 75 ml 750 ml Tube Feeding 50 ml 550 ml Output Urine Total 1850 ml Laboratory Tests Test 03/13/20 12:05 03/13/20 17:59 03/14/20 00:04 POC Whole Blood Glucose 216 MG/DL (74-106) H Pending 223 MG/DL (74-106) H Height (Feet): 5 Height (Inches): 7.00 Weight (Pounds): 149 Medications Current Medications Medications (Trade) Dose Ordered Sig/Monalisa Route PRN Reason Start Time Stop Time Status Last Admin Dose Admin Acetaminophen (Tylenol) 325 mg Q4H PRN GT MILD PAIN/FEVER 03/13/20 12:45 04/12/20 11:59 Albuterol/ Ipratropium (Albuterol/ Ipratropium) 3 ml QIDRT PRN HHN Shortness of Breath 03/13/20 12:00 03/18/20 11:59 Ascorbic Acid (Vitamin C) 500 mg TWICE A DAY GT 03/13/20 18:00 04/12/20 17:59 03/13/20 17:47 Dextrose (Dextrose 50%) 25 ml Q30M PRN IV Hypoglycemia 03/13/20 00:30 06/11/20 00:29 Dextrose (Dextrose 50%) 25 ml Q30M PRN IV Hypoglycemia 03/13/20 12:00 06/11/20 11:59 Dextrose (Dextrose 50%) 50 ml Q30M PRN IV Hypoglycemia 03/13/20 00:30 06/11/20 00:29 Dextrose (Dextrose 50%) 50 ml Q30M PRN IV Hypoglycemia 03/13/20 12:00 06/11/20 11:59 Docusate Sodium (Colace) 100 mg TWICE A DAY GT 03/13/20 18:00 04/12/20 17:59 03/13/20 17:47 Famotidine (Pepcid) 20 mg BEDTIME GT 03/13/20 21:00 06/11/20 20:59 03/13/20 20:30 Finasteride (Proscar) 5 mg DAILY ORAL 03/14/20 09:00 06/12/20 08:59 Heparin Sodium (Porcine) (Heparin 5000 units/ml) 5,000 units EVERY 12 HOURS SUBQ 03/13/20 21:00 04/27/20 20:59 03/13/20 20:30 Insulin Aspart (NovoLOG) Q6HR SUBQ 03/13/20 06:00 06/11/20 05:59 03/14/20 05:41 Levetiracetam (Keppra) 1,000 mg TID GT 03/13/20 13:00 04/27/20 12:59 03/13/20 17:47 Lorazepam (Ativan) 1 mg Q6H PRN ORAL For Anxiety 03/13/20 19:30 03/20/20 19:29 Metoprolol Tartrate (Lopressor) 25 mg Q12HR GT 03/13/20 21:00 06/11/20 20:59 03/13/20 20:31 Ondansetron HCl (Zofran) 4 mg Q6H PRN GT Nausea & Vomiting 03/13/20 11:30 04/12/20 11:29 Piperacillin Sod/ Tazobactam Sod 3.375 gm/Sodium Chloride 110 ml @ 27.5 mls/hr EVERY 8 HOURS IVPB 03/13/20 14:00 03/18/20 13:59 03/14/20 05:42 Risperidone (RisperDAL) 1 mg QHS ORAL 03/13/20 21:00 04/27/20 20:59 03/13/20 20:31 Sodium Chloride 1,000 ml @ 75 mls/hr [id number] IV 03/13/20 12:18 04/12/20 12:17 03/14/20 05:42 Vancomycin HCl (Vanco pharmacy to dose) 1 ea DAILY PRN MISC Per rx protocol 03/13/20 12:00 04/12/20 11:59 Assessment/Plan Assessment/Plan: 64yo with: Afebrile Tachycardia Hyperglycemia R/o sepsis Leukocytosis to 13 Pyuria 03/12 BCx p 03/12 CXR w/ low long volumes and bronchovascular crowding 03/13 UA +WBC, UCx +GNR COVID rapid Ag neg 03/12 CKD, Cr 2.0 ?Heart failure vs vol OL, BNP 791 PMH/PSH: CVA, seizure disorder, cerebral palsy, COPD, hypertension, dysphagia, feeding by G-tube, schizophrenia Plan: Cont empiric vanc/Zosyn #2 for now, f/u cx F/u BCx, UCx, MRSA nares, will narrow abx pending these results Trend WBC Trend Cr Monitor CBC/BMP Monitor resp status Monitor hemodynamics D/w RN Thank you for this consult. [facility] will continue to follow. Joy Vang M.D. Mar 14, 2020 07:00
[2020-03-14 08:00] VITALS: BP 94/50
[2020-03-14 08:40] LABS: BASOPHILS % (AUTO) 0.5 % (0.0-2.0); EOSINOPHILS % (AUTO) 1.7 % (0.0-3.0); HEMATOCRIT 30.9 % (42.0-52.0); HEMOGLOBIN 9.4 G/DL (14.2-18.0); LYMPHOCYTES % (AUTO) 12.2 % (20.0-45.0); MEAN CORPUSCULAR VOLUME 69 FL (80-99); MONOCYTES % (AUTO) 5.1 % (1.0-10.0); NEUTROPHILS % (AUTO) 80.5 % (45.0-75.0); PLATELET COUNT 342 K/UL (150-450); WHITE BLOOD COUNT 9.6 K/UL (4.8-10.8)
[2020-03-14 09:09] LABS: ANION GAP 12 mmol/L (5-15); BLOOD UREA NITROGEN 33 mg/dL (7-18); CALCIUM 8.8 MG/DL (8.5-10.1); CARBON DIOXIDE 27 MMOL/L (21-32); CHLORIDE 116 MMOL/L (98-107); CHOLESTEROL 52 MG/DL (< 200); CREATININE 1.5 MG/DL (0.55-1.30); HDL CHOLESTEROL 16 MG/DL (40-60); POTASSIUM 3.1 MMOL/L (3.5-5.1); SODIUM 155 MMOL/L (136-145); TRIGLYCERIDES 132 MG/DL (30-150)
[2020-03-14] MEDS: Ascorbic Acid 500mg tab GT SCH ×2 (09:10→17:55)
[2020-03-14] MEDS: Docusate 100mg/10ml Liq GT SCH ×2 (09:11→17:55)
[2020-03-14] MEDS: levETIRAcetam 500mg/5ml Liquid GT SCH ×3 (09:11→21:37)
[2020-03-14] MEDS: Heparin 5000 units/ml inj SUBQ SCH ×2 (09:12→21:37)
--- NOTE | 2020-03-14 10:02 | Diagnostic Imaging Report ---
Indication: Reason For Exam: SOB Technique: One view of the chest Comparison: 03/12/2020 Findings: There is bilateral perihilar interstitial prominence and central bronchial wall thickening. This is slightly more prominent than on the prior study The heart size is normal. Pleural spaces are clear. Impression: Nonspecific bilateral perihilar interstitial prominence and central bronchial wall thickening. Equivocally slightly more prominent than on the prior study. This could be chronic, could indicate acute edema, or infectious interstitial pneumonia. Correlate with clinical findings
[2020-03-14 11:55] VITALS: BP 103/66
[2020-03-14] MEDS ORDERED: Vancomycin 1gm/D5W 275ml IVPB ONE ×2 (12:00)
--- NOTE | 2020-03-14 12:00 | Progress Note ---
DATE: 03/14/2020 SUBJECTIVE: This is a 64-year-old male patient with tachycardia and hyperglycemia. This patient continues to have some altered mental status, confusion, and decline in cognition below his baseline. He is in the hospital because he had sepsis, acute renal disorder, tachycardia, diabetes, seizure disorder, urinary tract infection, acute renal disease, sepsis, and diabetes, but also has history of paranoid schizophrenia. That is why his attending has requested daily psychiatric consultation because of his mood lability due to the sepsis and medical problems. MENTAL STATUS EXAMINATION: This is a 64-year-old male. Appearance is disheveled. Attitude, irritable and agitated. Affect, guarded and restricted. Intellect, poor. Mood, depressed and anxious. Motor activity, psychomotor agitation. Attention span is poor. Orientation x2. Speech is low volume and slurred. Thought process, disorganized and illogical. Insight and judgment is poor. DIAGNOSIS: Paranoid schizophrenia with acute exacerbation. PLAN: Treat him with a medication regimen consisting of Risperdal 1 mg nightly and Ativan 1 mg every 6 hours p.r.n. anxiety or agitation. Twenty minutes of insight-oriented psychotherapy will help this patient to have better understanding of his psychiatric and physical condition so that he has better impulse control on the unit. Chart reviewed. Discussed with staff. Seen and assessed at bedside. Enrrique Escudero M.D. DR: FRANSISCO JOB#: [id number] CC:
--- NOTE | 2020-03-14 12:07 | Pulmonology Progress Note ---
Subjective Constitutional: Reports: no symptoms HEENT: Repors: no symptoms Allergies: Coded Allergies: NO KNOWN DRUG ALLERGIES (Unverified Allergy, Unknown, 07/16/19) Objective Last 24 Hour Vital Signs Date Time Temp Pulse Resp B/P (MAP) Pulse Ox O2 Delivery O2 Flow Rate FiO2 03/14/20 11:55 98.2 109 20 103/66 (78) 95 03/14/20 09:00 Room Air 03/14/20 09:00 115 94/50 03/14/20 08:00 97.9 115 20 94/50 (65) 96 03/14/20 07:36 112 03/14/20 04:00 117 03/14/20 04:00 98.8 117 24 104/71 (82) 97 03/14/20 00:00 98.1 114 23 101/67 (78) 97 03/14/20 00:00 116 03/13/20 21:00 Nasal Cannula 1.0 03/13/20 20:31 122 111/69 03/13/20 20:00 118 03/13/20 20:00 96.6 121 26 99/65 (76) 99 03/13/20 16:00 98.1 128 20 108/63 (78) 96 03/13/20 16:00 127 Intake and Output 03/13/20 03/14/20 19:00 07:00 Intake Total 125 ml 1800 ml Output Total 1850 ml Balance 125 ml -50 ml Intake Free Water 500 ml IV Total 75 ml 750 ml Tube Feeding 50 ml 550 ml Output Urine Total 1850 ml General Appearance: WD/WN HEENT: normocephalic, atraumatic Respiratory: chest wall non-tender, lungs clear Cardiovascular: normal peripheral pulses, normal rate Abdomen: normal bowel sounds, soft, non tender Extremities: no cyanosis Neurologic: block feeder II-XII grossly normal Microbiology Date/Time Source Procedure Growth Status 03/12/20 19:50 Nasopharynx SARS-CoV-2 RdRp Gene Assay - Final Complete 03/13/20 05:30 Urine,Clean Catch Urine Culture - Preliminary Gram Negative Bacillus 1 Resulted 03/12/20 19:30 Rectum Received Laboratory Tests 03/13/20 12:05: POC Whole Blood Glucose 216H 03/13/20 17:59: POC Whole Blood Glucose [Pending] 03/14/20 00:04: POC Whole Blood Glucose 223H 03/14/20 07:45: White Blood Count 9.6, Red Blood Count 4.50L, Hemoglobin 9.4L, Hematocrit 30.9L , Mean Corpuscular Volume 69L, Mean Corpuscular Hemoglobin 20.8L, Mean Corpuscular Hemoglobin Concent 30.4L, Red Cell Distribution Width 13.0, Platelet Count 342, Mean Platelet Volume 7.9, Neutrophils (%) (Auto) 80.5H, Lymphocytes (%) (Auto) 12.2L, Monocytes (%) (Auto) 5.1, Eosinophils (%) (Auto) 1.7, Basophils (%) (Auto) 0.5, Sodium Level 155H, Potassium Level 3.1L, Chloride Level 116H, Carbon Dioxide Level 27, Anion Gap 12, Blood Urea Nitrogen 33H, Creatinine 1.5H, Estimat Glomerular Filtration Rate 47.4, Glucose Level 206H, Hemoglobin A1c 7.8H, Calcium Level 8.8, Troponin I 0.000, Triglycerides Level 132, Cholesterol Level 52, LDL Cholesterol 23, HDL Cholesterol 16L, Cholesterol/HDL Ratio 3.3, Thyroid Stimulating Hormone (TSH) 1.252, Free Thyroxine 1.13, Random Vancomycin Level 11.0 03/14/20 11:45: POC Whole Blood Glucose [Pending] Current Medications Medications (Trade) Dose Ordered Sig/Monalisa Route PRN Reason Start Time Stop Time Status Last Admin Dose Admin Acetaminophen (Tylenol) 325 mg Q4H PRN GT MILD PAIN/FEVER 03/13/20 12:45 04/12/20 11:59 Albuterol/ Ipratropium (Albuterol/ Ipratropium) 3 ml QIDRT PRN HHN Shortness of Breath 03/13/20 12:00 03/18/20 11:59 Ascorbic Acid (Vitamin C) 500 mg TWICE A DAY GT 03/13/20 18:00 04/12/20 17:59 03/14/20 09:10 Dextrose (Dextrose 50%) 25 ml Q30M PRN IV Hypoglycemia 03/13/20 00:30 06/11/20 00:29 Dextrose (Dextrose 50%) 25 ml Q30M PRN IV Hypoglycemia 03/13/20 12:00 06/11/20 11:59 Dextrose (Dextrose 50%) 50 ml Q30M PRN IV Hypoglycemia 03/13/20 00:30 06/11/20 00:29 Dextrose (Dextrose 50%) 50 ml Q30M PRN IV Hypoglycemia 03/13/20 12:00 06/11/20 11:59 Docusate Sodium (Colace) 100 mg TWICE A DAY GT 03/13/20 18:00 04/12/20 17:59 03/14/20 09:11 Famotidine (Pepcid) 20 mg BEDTIME GT 03/13/20 21:00 06/11/20 20:59 03/13/20 20:30 Finasteride (Proscar) 5 mg DAILY ORAL 03/14/20 09:00 06/12/20 08:59 03/14/20 09:11 Heparin Sodium (Porcine) (Heparin 5000 units/ml) 5,000 units EVERY 12 HOURS SUBQ 03/13/20 21:00 04/27/20 20:59 03/14/20 09:12 Insulin Aspart (NovoLOG) Q6HR SUBQ 03/13/20 06:00 06/11/20 05:59 03/14/20 11:47 Levetiracetam (Keppra) 1,000 mg TID GT 03/13/20 13:00 04/27/20 12:59 03/14/20 11:59 Lorazepam (Ativan) 1 mg Q6H PRN ORAL For Anxiety 03/13/20 19:30 03/20/20 19:29 Metoprolol Tartrate (Lopressor) 25 mg Q12HR GT 03/13/20 21:00 06/11/20 20:59 03/13/20 20:31 Ondansetron HCl (Zofran) 4 mg Q6H PRN GT Nausea & Vomiting 03/13/20 11:30 04/12/20 11:29 Piperacillin Sod/ Tazobactam Sod 3.375 gm/Sodium Chloride 110 ml @ 27.5 mls/hr EVERY 8 HOURS IVPB 03/13/20 14:00 03/18/20 13:59 03/14/20 05:42 Potassium Chloride (K-Dur) 40 meq ONCE ORAL 03/14/20 11:15 03/14/20 12:15 03/14/20 11:47 Risperidone (RisperDAL) 1 mg QHS ORAL 03/13/20 21:00 9/30/20 20:59 03/13/20 20:31 Sodium Chloride 1,000 ml @ 75 mls/hr [id number] IV 03/13/20 12:18 04/12/20 12:17 03/14/20 05:42 Vancomycin HCl (Vanco pharmacy to dose) 1 ea DAILY PRN MISC Per rx protocol 03/13/20 12:00 04/12/20 11:59 Vancomycin HCl 1 gm/Dextrose 275 ml @ 183.708 mls/hr ONCE ONCE IVPB 03/14/20 12:00 03/14/20 13:29 03/14/20 11:51 Assessment/Plan Problems: (1) Sepsis (2) JULIO CÉSAR (acute kidney injury) (3) Suspected COVID-19 virus infection (4) COPD (chronic obstructive pulmonary disease) (5) Seizure disorder (6) Schizophrenia (7) BPH (benign prostatic hyperplasia) (8) Parkinson disease (9) Feeding by G-tube (10) Hypertension Assessment/Plan covid negative times one Urine has >100K GNB continue iv abx check sensitivity of GNB iv fluids check electrolytes dvt prophylaxis Lucie Gracia MD Mar 14, 2020 12:07
--- NOTE | 2020-03-14 12:14 | Diagnostic Imaging Report ---
Indication: Bilateral leg pain and bilateral leg edema Technique: Grayscale and duplex images of the bilateral lower extremity veins Comparison: Findings: Bilaterally, grayscale and duplex images demonstrate no evidence of intraluminal thrombus. Normal phasic Doppler waveforms, demonstrating normal augmentation response and no evidence of valvular insufficiency. Greater saphenous vein(s) and tibial veins are patent. Normal compressibility. Impression: Negative for evidence of lower extremity deep venous thrombosis bilaterally
--- NOTE | 2020-03-14 13:34 | Consultation ---
Consult Note Consult Note I am asked to evaluate the patient at the request of Dr. Orozco who is covering for Dr. Johnson for renal failure and fluid and electrolyte management. Patient known to me from his previous admissions here at [facility] 64 years old male, resident of [facility] facility, with PMH of : CVA, seizure disorder, cerebral palsy, COPD, hypertension, dysphagia, feeding by G-tube, schizophrenia, was sent for evaluation due to tachycardia and hyperglycemia. Patient had confirmed COVID infection prior, about 3 months, ago. COVID test x 2 in November was negative , the last time he was hospitalized. Per correction staff, blood sugar was above 400. Allergies: NO KNOWN DRUG ALLERGIES (Unverified Allergy, Unknown, 07/16/19) COVID-19 Screening Contact w/high risk pt: Yes Recent Travel to affected area: No Experienced COVID-19 symptoms?: Yes COVID-19 symptoms experienced: Flu-Like Symptoms COVID-19 Testing performed [employer]: Yes - NOVEMBER COVID-19 Screening: PUI COVID-19 COVID-19 Testing Source: [employer] Hx Cardiac Problems: Yes - ANEMIA Hx Hypertension: Yes Hx COPD: Yes Hx Diabetes: Yes Hx Gastrointestinal Problems: Yes Hx Dialysis: No - AKF History Of Psychiatric Problem: Yes - SCHIZOPHREMIA Hx Neurological Problems: Yes - CEREBRAL PALSY; MUSCLE WEAKNESS Hx Cerebrovascular Accident: Yes Hx Parkinson's Disease: Yes Hx Seizures: Yes - EPILEPSY Hx Epilepsy: Yes Hx Cerebral Palsy: Yes Hx Speech Problem: Yes Hx Aphasia: Yes Hx Weakness: Yes Last 24 Hour Vital Signs Date Time Temp Pulse Resp B/P (MAP) Pulse Ox O2 Delivery O2 Flow Rate FiO2 03/14/20 11:55 98.2 109 20 103/66 (78) 95 03/14/20 09:00 Room Air 03/14/20 09:00 115 94/50 03/14/20 08:00 97.9 115 20 94/50 (65) 96 03/14/20 07:36 112 03/14/20 04:00 117 03/14/20 04:00 98.8 117 24 104/71 (82) 97 03/14/20 00:00 98.1 114 23 101/67 (78) 97 03/14/20 00:00 116 03/13/20 21:00 Nasal Cannula 1.0 03/13/20 20:31 122 111/69 03/13/20 20:00 118 03/13/20 20:00 96.6 121 26 99/65 (76) 99 03/13/20 16:00 98.1 128 20 108/63 (78) 96 03/13/20 16:00 127 General Appearance: other - chroncially ill looking, bed ridden poorly responsive male in NAD Lines, tubes and drains: peripheral HEENT: normocephalic, atraumatic, anicteric Neck: normal alignment Respiratory/Chest: lungs clear, no respiratory distress Cardiovascular/Chest: normal peripheral pulses, tachycardia - ST on tele Abdomen: normal bowel sounds, non tender, soft, feeding tube - G tube Neurologic: abnormal gait - bedridden , other - poorly responsive, nonverbal, Musculoskeletal: atrophy . . Assessment/Plan Acute renal failure, patient presents with serum creatinine of 2 Dehydration, electrolyte imbalances Sepsis, UTI Diabetes mellitus [id number] Hypertension COPD, aspiration risk History of CVA, seizure disorder Cerebral palsy Protein calorie malnutrition Suspected COVID-19 virus infection Schizophrenia BPH G-tube feeding History of Parkinson's disease Suggestions: Hydrate, free water via GT for hypernatremia Potassium supplement Adjust blood pressure medication as the patient is hypotensive Albumin bolus Anemia work-up Monitor renal parameters Avoid nephrotoxic's Per orders Patient had multiple admissions and ER visits previously at [facility]. I spent an additional 36 minutes on review of medical records including prior hospital records,consult notes, progress notes, procedures , imaging labs, hemodynamics, and other clinical documentation. Over 35 min Xander Lake MD Mar 14, 2020 13:34
--- NOTE | 2020-03-14 15:34 | Cardiac Electrophysiology PN ---
Assessment/Plan Assessment/Plan 1. Sinus tachycardia, due to sepsis, anemia, respiratory failure and lactic acidosis. Ruled out for NC. Echocardiogram showed Nl EF 65% 2. Hypertension.Stable on metoprolol 25 mg b.i.d. 3. Lactic acidosis and sepsis, on IV antibiotic. 4. Dysphagia, status post G-tube placement. 5. Uncontrolled diabetes . 6. History of COVID-19 pneumonia, currently off isolation. DIXON RN Subjective Subjective In Sinus tach. K replaced. RN at bedside. Confused Objective Last 24 Hour Vital Signs Date Time Temp Pulse Resp B/P (MAP) Pulse Ox O2 Delivery O2 Flow Rate FiO2 03/14/20 11:55 98.2 109 20 103/66 (78) 95 03/14/20 11:33 107 03/14/20 09:00 Room Air 03/14/20 09:00 115 94/50 03/14/20 08:00 97.9 115 20 94/50 (65) 96 03/14/20 07:36 112 03/14/20 04:00 117 03/14/20 04:00 98.8 117 24 104/71 (82) 97 03/14/20 00:00 98.1 114 23 101/67 (78) 97 03/14/20 00:00 116 03/13/20 21:00 Nasal Cannula 1.0 03/13/20 20:31 122 111/69 03/13/20 20:00 118 03/13/20 20:00 96.6 121 26 99/65 (76) 99 03/13/20 16:00 98.1 128 20 108/63 (78) 96 03/13/20 16:00 127 Intake and Output 03/13/20 03/14/20 19:00 07:00 Intake Total 125 ml 1875 ml Output Total 1850 ml Balance 125 ml 25 ml Intake Free Water 500 ml IV Total 75 ml 825 ml Tube Feeding 50 ml 550 ml Output Urine Total 1850 ml Laboratory Tests Test 03/13/20 17:59 03/14/20 00:04 03/14/20 05:39 03/14/20 07:45 POC Whole Blood Glucose Pending 223 MG/DL (74-106) H Pending White Blood Count 9.6 K/UL (4.8-10.8) Red Blood Count 4.50 M/UL (4.70-6.10) L Hemoglobin 9.4 G/DL (14.2-18.0) L Hematocrit 30.9 % (42.0-52.0) L Mean Corpuscular Volume 69 FL (80-99) L Mean Corpuscular Hemoglobin 20.8 PG (27.0-31.0) L Mean Corpuscular Hemoglobin Concent 30.4 G/DL (32.0-36.0) L Red Cell Distribution Width 13.0 % (11.6-14.8) Platelet Count 342 K/UL (150-450) Mean Platelet Volume 7.9 FL (6.5-10.1) Neutrophils (%) (Auto) 80.5 % (45.0-75.0) H Lymphocytes (%) (Auto) 12.2 % (20.0-45.0) L Monocytes (%) (Auto) 5.1 % (1.0-10.0) Eosinophils (%) (Auto) 1.7 % (0.0-3.0) Basophils (%) (Auto) 0.5 % (0.0-2.0) Sodium Level 155 MMOL/L (136-145) H Potassium Level 3.1 MMOL/L (3.5-5.1) L Chloride Level 116 MMOL/L (98-107) H Carbon Dioxide Level 27 MMOL/L (21-32) Anion Gap 12 mmol/L (5-15) Blood Urea Nitrogen 33 mg/dL (7-18) H Creatinine 1.5 MG/DL (0.55-1.30) H Estimat Glomerular Filtration Rate 47.4 mL/min (>60) Glucose Level 206 MG/DL (74-106) H Hemoglobin A1c 7.8 % (4.3-6.0) H Calcium Level 8.8 MG/DL (8.5-10.1) Troponin I 0.000 ng/mL (0.000-0.056) Triglycerides Level 132 MG/DL (30-150) Cholesterol Level 52 MG/DL (< 200) LDL Cholesterol 23 mg/dL (<100) HDL Cholesterol 16 MG/DL (40-60) L Cholesterol/HDL Ratio 3.3 (3.3-4.4) Thyroid Stimulating Hormone (TSH) 1.252 uiU/mL (0.358-3.740) Free Thyroxine 1.13 NG/DL (0.76-1.46) Random Vancomycin Level 11.0 ug/mL Test 03/14/20 11:45 POC Whole Blood Glucose Pending Microbiology Date/Time Source Procedure Growth Status 03/12/20 19:50 Nasopharynx SARS-CoV-2 RdRp Gene Assay - Final Complete 03/13/20 05:30 Urine,Clean Catch Urine Culture - Preliminary Gram Negative Bacillus 1 Resulted 03/12/20 19:30 Rectum Received Objective HEAD AND NECK: Shows no JVD. LUNGS: Decreased breath sounds. CARDIOVASCULAR: Shows regular S1 and S2. Tachycardic. ABDOMEN: Soft. The G-tube is intact. EXTREMITIES: No pitting edema. Sage Araujo MD Mar 14, 2020 15:33
[2020-03-14 15:58] VITALS: BP 108/68
[2020-03-14 20:00] VITALS: BP 109/70
[2020-03-14] MEDS ORDERED: KEPPRA LIQ100 MG/1 M GT (21:02)
--- NOTE | 2020-03-14 22:08 | General Progress Note ---
Assessment/Plan Problem List: (1) JULIO CÉSAR (acute kidney injury) ICD Codes: N17.9 - Acute kidney failure, unspecified SNOMED: 21479388, 0305048 (2) Sepsis ICD Codes: A41.9 - Sepsis, unspecified organism SNOMED: 48789563 (3) Tachycardia ICD Codes: R00.0 - Tachycardia, unspecified SNOMED: 6437125 (4) Diabetes ICD Codes: E11.9 - Type 2 diabetes mellitus without complications SNOMED: 14559091 (5) Schizophrenia ICD Codes: F20.9 - Schizophrenia, unspecified SNOMED: 72799622 (6) Seizure disorder ICD Codes: G40.909 - Epilepsy, unspecified, not intractable,without status epilepticus SNOMED: 594049473 (7) UTI (urinary tract infection) ICD Codes: N39.0 - Urinary tract infection, site not specified SNOMED: 57315597 (8) Hypertension ICD Codes: I10 - Hypertension SNOMED: 27719022 (9) ARF (acute renal failure) ICD Codes: N17.9 - Acute kidney failure, unspecified SNOMED: 54385315 (10) Diabetes mellitus out of control ICD Codes: E11.65 - Diabetes mellitus out of control SNOMED: 727360661 (11) Feeding by G-tube ICD Codes: Z93.1 - Feeding by G-tube SNOMED: 834583468 (12) Decubitus ulcer ICD Codes: L89.90 - Pressure ulcer of unspecified site, unspecified stage SNOMED: 448807384 Status: progressing Assessment/Plan: htn poor historian reviewed chart and labs dm reviewed chat and labs dysphagia Subjective ROS Limited/Unobtainable: Yes Allergies: Coded Allergies: NO KNOWN DRUG ALLERGIES (Unverified Allergy, Unknown, 07/16/19) Objective Last 24 Hour Vital Signs Date Time Temp Pulse Resp B/P (MAP) Pulse Ox O2 Delivery O2 Flow Rate FiO2 03/14/20 21:35 100 109/70 03/14/20 15:58 98.5 102 20 108/68 (81) 98 03/14/20 15:12 105 03/14/20 11:55 98.2 109 20 103/66 (78) 95 03/14/20 11:33 107 03/14/20 09:00 Room Air 03/14/20 09:00 115 94/50 03/14/20 08:00 97.9 115 20 94/50 (65) 96 03/14/20 07:36 112 03/14/20 04:00 117 03/14/20 04:00 98.8 117 24 104/71 (82) 97 03/14/20 00:00 98.1 114 23 101/67 (78) 97 03/14/20 00:00 116 Intake and Output 03/13/20 03/14/20 19:00 07:00 Intake Total 125 ml 1875 ml Output Total 1850 ml Balance 125 ml 25 ml Intake Free Water 500 ml IV Total 75 ml 825 ml Tube Feeding 50 ml 550 ml Output Urine Total 1850 ml Laboratory Tests 03/14/20 00:04: POC Whole Blood Glucose 223H 03/14/20 05:39: POC Whole Blood Glucose [Pending] 03/14/20 07:45: White Blood Count 9.6, Red Blood Count 4.50L, Hemoglobin 9.4L, Hematocrit 30.9L , Mean Corpuscular Volume 69L, Mean Corpuscular Hemoglobin 20.8L, Mean Corpuscular Hemoglobin Concent 30.4L, Red Cell Distribution Width 13.0, Platelet Count 342, Mean Platelet Volume 7.9, Neutrophils (%) (Auto) 80.5H, Lymphocytes (%) (Auto) 12.2L, Monocytes (%) (Auto) 5.1, Eosinophils (%) (Auto) 1.7, Basophils (%) (Auto) 0.5, Sodium Level 155H, Potassium Level 3.1L, Chloride Level 116H, Carbon Dioxide Level 27, Anion Gap 12, Blood Urea Nitrogen 33H, Creatinine 1.5H, Estimat Glomerular Filtration Rate 47.4, Glucose Level 206H, Hemoglobin A1c 7.8H, Calcium Level 8.8, Troponin I 0.000, Triglycerides Level 132, Cholesterol Level 52, LDL Cholesterol 23, HDL Cholesterol 16L, Cholesterol/HDL Ratio 3.3, Thyroid Stimulating Hormone (TSH) 1.252, Free Thyroxine 1.13, Random Vancomycin Level 11.0 03/14/20 11:45: POC Whole Blood Glucose [Pending] Height (Feet): 5 Height (Inches): 7.00 Weight (Pounds): 149 Amy Martínez MD Mar 14, 2020 22:08
[2020-03-15] VITALS: BP 113/69
[2020-03-15] MEDS: NovoLOG Insulin Flexpen SUBQ SCH ×4 (00:22→17:56)
[2020-03-15 04:00] VITALS: BP 118/67
[2020-03-15] MEDS: Piperacillin/Tazobactam 3.375 GM in NS 110 ML IVPB SCH (05:51)
--- NOTE | 2020-03-15 06:51 | Infectious Diseases Prog Note ---
Assessment/Plan 64yo with: Afebrile Tachycardia Hyperglycemia R/o sepsis Leukocytosis to 13, improving Pyuria 03/12 BCx NTD 03/12 CXR w/ low long volumes and bronchovascular crowding 03/13 UA +WBC, UCx +ESBL E.coli MRSA nares neg COVID rapid Ag neg 03/12 H/o COVID 3 months ago CKD, Cr 2.0 ?Heart failure vs vol OL, BNP 791 PMH/PSH: CVA, seizure disorder, cerebral palsy, COPD, hypertension, dysphagia, feeding by G-tube, schizophrenia Plan: Stop vanco given GNRs on UCx and BCx NTD Stop Zosyn #2 Start meropenem #1 given ESBL E.coli on UCx Trend WBC Trend Cr Monitor CBC/BMP Monitor resp status Monitor hemodynamics D/w RN Thank you for this consult. [facility] will continue to follow. Subjective Allergies: Coded Allergies: NO KNOWN DRUG ALLERGIES (Unverified Allergy, Unknown, 07/16/19) AF WBC 8, JULIO CÉSAR improving On RA, calm, NAD Objective Last 24 Hour Vital Signs Date Time Temp Pulse Resp B/P (MAP) Pulse Ox O2 Delivery O2 Flow Rate FiO2 03/15/20 04:00 98.2 98 18 118/67 (84) 97 03/15/20 03:51 96 03/15/20 00:00 97.8 104 18 113/69 (84) 97 03/14/20 23:34 108 03/14/20 21:35 100 109/70 03/14/20 21:00 Room Air 03/14/20 20:19 98 18 97 Room Air 21 03/14/20 20:00 98.1 100 19 109/70 (83) 97 03/14/20 19:03 101 03/14/20 15:58 98.5 102 20 108/68 (81) 98 03/14/20 15:12 105 03/14/20 11:55 98.2 109 20 103/66 (78) 95 03/14/20 11:33 107 03/14/20 09:00 Room Air 03/14/20 09:00 115 94/50 03/14/20 08:00 97.9 115 20 94/50 (65) 96 03/14/20 07:36 112 Height (Feet): 5 Height (Inches): 7.00 Weight (Pounds): 134 Gen: Older man, laying in bed, NAD CV: RRR Pulm: CTAB anteriorly Abd: Soft, NTND, +PEG Ext: No c/c/e Neuro: Non-verbal Microbiology Date/Time Source Procedure Growth Status 03/12/20 19:15 Blood Blood Culture - Preliminary NO GROWTH AFTER 48 HOURS Resulted 03/12/20 19:00 Blood Blood Culture - Preliminary NO GROWTH AFTER 48 HOURS Resulted 03/12/20 19:50 Nasopharynx SARS-CoV-2 RdRp Gene Assay - Final Complete 03/13/20 05:30 Urine,Clean Catch Urine Culture - Preliminary Gram Negative Bacillus 1 Resulted 03/12/20 19:30 Rectum Received Laboratory Tests Test 03/14/20 07:45 03/14/20 11:45 03/15/20 00:19 White Blood Count 9.6 K/UL (4.8-10.8) Red Blood Count 4.50 M/UL (4.70-6.10) L Hemoglobin 9.4 G/DL (14.2-18.0) L Hematocrit 30.9 % (42.0-52.0) L Mean Corpuscular Volume 69 FL (80-99) L Mean Corpuscular Hemoglobin 20.8 PG (27.0-31.0) L Mean Corpuscular Hemoglobin Concent 30.4 G/DL (32.0-36.0) L Red Cell Distribution Width 13.0 % (11.6-14.8) Platelet Count 342 K/UL (150-450) Mean Platelet Volume 7.9 FL (6.5-10.1) Neutrophils (%) (Auto) 80.5 % (45.0-75.0) H Lymphocytes (%) (Auto) 12.2 % (20.0-45.0) L Monocytes (%) (Auto) 5.1 % (1.0-10.0) Eosinophils (%) (Auto) 1.7 % (0.0-3.0) Basophils (%) (Auto) 0.5 % (0.0-2.0) Sodium Level 155 MMOL/L (136-145) H Potassium Level 3.1 MMOL/L (3.5-5.1) L Chloride Level 116 MMOL/L (98-107) H Carbon Dioxide Level 27 MMOL/L (21-32) Anion Gap 12 mmol/L (5-15) Blood Urea Nitrogen 33 mg/dL (7-18) H Creatinine 1.5 MG/DL (0.55-1.30) H Estimat Glomerular Filtration Rate 47.4 mL/min (>60) Glucose Level 206 MG/DL (74-106) H Hemoglobin A1c 7.8 % (4.3-6.0) H Calcium Level 8.8 MG/DL (8.5-10.1) Troponin I 0.000 ng/mL (0.000-0.056) Triglycerides Level 132 MG/DL (30-150) Cholesterol Level 52 MG/DL (< 200) LDL Cholesterol 23 mg/dL (<100) HDL Cholesterol 16 MG/DL (40-60) L Cholesterol/HDL Ratio 3.3 (3.3-4.4) Thyroid Stimulating Hormone (TSH) 1.252 uiU/mL (0.358-3.740) Free Thyroxine 1.13 NG/DL (0.76-1.46) Random Vancomycin Level 11.0 ug/mL POC Whole Blood Glucose Pending 173 MG/DL (74-106) H Current Medications Medications (Trade) Dose Ordered Sig/Monalisa Route PRN Reason Start Time Stop Time Status Last Admin Dose Admin Acetaminophen (Tylenol) 325 mg Q4H PRN GT MILD PAIN/FEVER 03/13/20 12:45 04/12/20 11:59 Albuterol/ Ipratropium (Albuterol/ Ipratropium) 3 ml QIDRT PRN HHN Shortness of Breath 03/13/20 12:00 03/18/20 11:59 Ascorbic Acid (Vitamin C) 500 mg TWICE A DAY GT 03/13/20 18:00 04/12/20 17:59 03/14/20 17:55 Dextrose (Dextrose 50%) 25 ml Q30M PRN IV Hypoglycemia 03/13/20 00:30 06/11/20 00:29 Dextrose (Dextrose 50%) 25 ml Q30M PRN IV Hypoglycemia 03/13/20 12:00 06/11/20 11:59 Dextrose (Dextrose 50%) 50 ml Q30M PRN IV Hypoglycemia 03/13/20 00:30 06/11/20 00:29 Dextrose (Dextrose 50%) 50 ml Q30M PRN IV Hypoglycemia 03/13/20 12:00 06/11/20 11:59 Docusate Sodium (Colace) 100 mg TWICE A DAY GT 03/13/20 18:00 04/12/20 17:59 03/14/20 17:55 Finasteride (Proscar) 5 mg DAILY ORAL 03/14/20 09:00 06/12/20 08:59 03/14/20 09:11 Heparin Sodium (Porcine) (Heparin 5000 units/ml) 5,000 units EVERY 12 HOURS SUBQ 03/13/20 21:00 04/27/20 20:59 03/14/20 21:37 Insulin Aspart (NovoLOG) Q6HR SUBQ 03/13/20 06:00 06/11/20 05:59 03/15/20 05:52 Lansoprazole (Prevacid) 30 mg Q12HR GT 03/14/20 21:00 04/13/20 20:59 03/14/20 21:35 Levetiracetam (Keppra) 1,000 mg Q12HR GT 03/14/20 21:00 04/27/20 12:59 03/14/20 21:37 Lorazepam (Ativan) 1 mg Q6H PRN ORAL For Anxiety 03/13/20 19:30 03/20/20 19:29 03/14/20 21:35 Metoprolol Tartrate (Lopressor) 25 mg Q12HR GT 03/13/20 21:00 06/11/20 20:59 03/13/20 20:31 Ondansetron HCl (Zofran) 4 mg Q6H PRN GT Nausea & Vomiting 03/13/20 11:30 04/12/20 11:29 Piperacillin Sod/ Tazobactam Sod 3.375 gm/Sodium Chloride 110 ml @ 27.5 mls/hr EVERY 8 HOURS IVPB 03/13/20 14:00 03/18/20 13:59 03/15/20 05:51 Risperidone (RisperDAL) 1 mg QHS ORAL 03/13/20 21:00 04/27/20 20:59 03/14/20 21:35 Sodium Chloride 1,000 ml @ 75 mls/hr [id number] IV 03/13/20 12:18 04/12/20 12:17 03/14/20 17:55 Vancomycin HCl ([facility] pharmacy to dose) 1 ea DAILY PRN MISC Per rx protocol 8/16/20 12:00 04/12/20 11:59 Joy Vang M.D. Mar 15, 2020 06:51
[2020-03-15 07:01] LABS: BASOPHILS % (AUTO) 0.5 % (0.0-2.0); EOSINOPHILS % (AUTO) 2.1 % (0.0-3.0); HEMOGLOBIN 9.1 G/DL (14.2-18.0); LYMPHOCYTES % (AUTO) 20.4 % (20.0-45.0); MEAN CORPUSCULAR VOLUME 68 FL (80-99); MONOCYTES % (AUTO) 4.3 % (1.0-10.0); NEUTROPHILS % (AUTO) 72.7 % (45.0-75.0); PLATELET COUNT 316 K/UL (150-450); RED CELL DISTRIBUTION WIDTH 12.8 % (11.6-14.8); WHITE BLOOD COUNT 7.4 K/UL (4.8-10.8)
[2020-03-15 07:21] LABS: % IRON SATURATION 56 % (15-50); IRON 66 ug/dL (50-175); TOTAL IRON BINDING CAPACITY 117 ug/dL (250-450)
[2020-03-15 07:30] LABS: GAMMA GLUTAMYL TRANSPEPTIDASE 34 U/L (5-85); LACTATE DEHYDROGENASE 121 U/L (81-234); PHOSPHORUS 2.3 MG/DL (2.5-4.9)
[2020-03-15 07:48] LABS: ALANINE AMINOTRANSFERASE 14 U/L (12-78); ALBUMIN 2.3 G/DL (3.4-5.0); ALBUMIN/GLOBULIN RATIO 0.4 (1.0-2.7); ALKALINE PHOSPHATASE 69 U/L (46-116); ANION GAP 13 mmol/L (5-15); ASPARTATE AMINO TRANSFERASE 7 U/L (15-37); BILIRUBIN,TOTAL 0.2 MG/DL (0.2-1.0); BLOOD UREA NITROGEN 27 mg/dL (7-18); CALCIUM 8.7 MG/DL (8.5-10.1); CARBON DIOXIDE 27 MMOL/L (21-32); CHLORIDE 114 MMOL/L (98-107); CREATININE 1.3 MG/DL (0.55-1.30); FERRITIN 461 NG/ML (8-388); POTASSIUM 3.2 MMOL/L (3.5-5.1); SODIUM 154 MMOL/L (136-145)
[2020-03-15 08:00] VITALS: BP 101/67
--- NOTE | 2020-03-15 09:28 | Consultation ---
History of Present Illness General Date patient seen: Mar 15, 2020 Chief Complaint: Abnormal Labs Referring physician: Dr Johnson Reason for Consultation: Sepsis Present Illness HPI 64-year-old male with history of schizophrenia, COPD, diabetes, bedbound and G- tube dependent, history of COVID-19 infection 3 months ago who is well known to me from prior hospitalizations and care plans who presented to [facility] ED for evaluation of tachycardia and hyperglycemia. Per the shelter report patient had a blood glucose level of greater than 400. He was given 12 units of insulin and repeat glucose was around 350. Paramedics were called and on arrival the patient was coughing and was tachycardic in the 130s. This appeared to be sinus tachycardia according to the paramedics. The shelter reports that the patient is normally on 2 L nasal cannula. The patient is alert and oriented x0 at his baseline and nursing reports as the patient does not appear to be any more confused than usual. Patient unable to participate in review of systems. on admission noted to have abnormal labs, ftt, malnutrition, and multiple wounds. surgery called to evaluate and assist with care. Allergies: Coded Allergies: NO KNOWN DRUG ALLERGIES (Unverified Allergy, Unknown, 07/16/19) Medication History Scheduled Amino Acids/Protein Hydrolys (Pro-Stat Liquid), 30 ML GT DAILY, (Reported) Ascorbic Acid* (Vitamin C*), 250 MG GT DAILY, (Reported) Docusate Sodium (Docusate Sodium), 100 MG GT TWICE A DAY, (Reported) Famotidine (Pepcid), 20 MG ORAL BEDTIME, (Reported) Finasteride* (Proscar*), 5 MG GT DAILY, (Reported) Lacosamide (Vimpat), 100 MG GT BID, (Reported) Levetiracetam (Keppra), 20 ML GT BID, (Reported) Magnesium Hydroxide (Milk of Magnesia), 30 ML GT BEDTIME, (Reported) Multivitamin Liquid* (Multi-Delyn*), 5 ML GT DAILY, (Reported) Risperidone* (Risperdal*), 1 MG GT BID, (Reported) Scheduled PRN Acetaminophen* (Acetaminophen 325MG Tablet*), 650 MG GT Q4H PRN for Fever/ Headache/Mild Pain, (Reported) Na Phos,M-B/Na Phos,Di-Ba* (Fleet Enema*), 133 ML RECTAL DAILY PRN for Constipation, (Reported) Nitroglycerin (Nitroglycerin), 0.4 MG SL q5mns x three doses PRN for chest pain, (Reported) Ondansetron* (Zofran*), 4 MG GT Q6H PRN for Nausea & Vomiting, (Reported) Polyethylene Glycol 3350* (Miralax*), 17 GM GT DAILY PRN for Constipation, ( Reported) Miscellaneous Medications [Santyl], 250 GM TOPIC, (Reported) Discontinued Medications Bisacodyl (Dulcolax), 10 MG RC DAILY PRN for Constipation, (Reported) Discontinued Reason: Pt stopped taking med Clotrimazole* (Lotrimin*), 1 APPLIC TOPIC TWICE A DAY, (Reported) Discontinued Reason: Pt stopped taking med Heparin Sod (Porcine) (Heparin Sodium*), 5,000 UNITS SUBQ EVERY 12 HOURS, ( Reported) Discontinued Reason: Pt stopped taking med Insulin Aspart (Novolog Flexpen), (Reported) Discontinued Reason: Pt stopped taking med Insulin Detemir (Levemir Flextouch), 15 UNIT SQ ACBREAKFAST, (Reported) Discontinued Reason: Pt stopped taking med Ipratropium/Albuterol Sulfate (DuoNeb 0.5-3(2.5)mg/3ml), 3 ML HHN Q4HR PRN for Shortness of Breath, (Reported) Discontinued Reason: Pt stopped taking med Levetiracetam (Keppra), 1,000 MG GT TID, (Reported) Discontinued Reason: Prescription changed Lorazepam* (Ativan*), 1 MG ORAL EVERY 6 HOURS PRN for Agitation, (Reported) Discontinued Reason: Pt stopped taking med Metoprolol Tartrate* (Metoprolol Tartrate*), 25 MG GT EVERY 12 HOURS, (Reported) Discontinued Reason: Pt stopped taking med Omeprazole (Omeprazole), 20 MG GT DAILY, (Reported) Discontinued Reason: Pt stopped taking med Potassium Chloride (Potassium Chloride), 40 MEQ GT BID, (Reported) Discontinued Reason: Pt stopped taking med Quercetin Dihydrate (Quercetin Dihydrate), 500 MG GT BEFORE BREAKFAST, (Reported ) Discontinued Reason: Pt stopped taking med Sennosides/Docusate Sodium (Senna Laxative Tablet), 2 EACH GT QHS, (Reported) Discontinued Reason: Pt stopped taking med Temazepam* (Restoril*), 15 MG ORAL BEDTIME, (Reported) Discontinued Reason: Pt stopped taking med Zinc Sulfate (Zinc Sulfate*), 220 MG ORAL DAILY, (Reported) Discontinued Reason: Pt stopped taking med Patient History Limited by: medical condition History Provided By: IDANIA Healthcare decision maker Resuscitation status Advanced Directive on File Past Medical/Surgical History Past Medical/Surgical History: (1) Sepsis (2) JULIO CÉSAR (acute kidney injury) (3) Tachycardia (4) Diabetes (5) Schizophrenia (6) Seizure disorder (7) Hyperosmolar coma (8) OBS (organic brain syndrome) (9) UTI (urinary tract infection) (10) Adrenal insufficiency (11) Hypertension (12) ARF (acute renal failure) (13) Severe sepsis (14) Diabetes mellitus out of control (15) Feeding by G-tube (16) C. 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) (18) Decubitus ulcer (19) Suspected COVID-19 virus infection (20) COPD (chronic obstructive pulmonary disease) (21) Fever (22) Parkinson disease (23) BPH (benign prostatic hyperplasia) Review of Systems ROS Narrative unable to obtain given medical condition Physical Exam General Appearance: no apparent distress Lines, tubes and drains: peripheral HEENT: mucous membranes moist Neck: supple, normal inspection Respiratory/Chest: chest wall non-tender, no respiratory distress, no accessory muscle use, decreased breath sounds Cardiovascular/Chest: normal peripheral pulses, tachycardia Abdomen: soft, no organomegaly, no mass, feeding tube Genitourinary/Rectal: normal rectal exam Extremities: inflammation, slow capillary refill, other Skin Exam: warm/dry Neurologic: unresponsiveness Last 24 Hour Vital Signs Date Time Temp Pulse Resp B/P (MAP) Pulse Ox O2 Delivery O2 Flow Rate FiO2 03/15/20 08:00 96.4 78 20 101/67 (78) 99 03/15/20 04:00 98.2 98 18 118/67 (84) 97 03/15/20 03:51 96 03/15/20 00:00 97.8 104 18 113/69 (84) 97 03/14/20 23:34 108 03/14/20 21:35 100 109/70 03/14/20 21:00 Room Air 03/14/20 20:19 98 18 97 Room Air 21 03/14/20 20:00 98.1 100 19 109/70 (83) 97 03/14/20 19:03 101 03/14/20 15:58 98.5 102 20 108/68 (81) 98 03/14/20 15:12 105 03/14/20 11:55 98.2 109 20 103/66 (78) 95 03/14/20 11:33 107 Intake and Output 03/14/20 03/15/20 19:00 07:00 Intake Total 1635.000 ml 1577.5 ml Output Total 650 ml Balance 985.000 ml 1577.5 ml Intake Free Water 250 ml IV Total 1585.000 ml 777.5 ml Tube Feeding 50 ml 550 ml Output Urine Total 650 ml Laboratory Tests Test 03/14/20 11:45 03/15/20 00:19 03/15/20 05:41 POC Whole Blood Glucose Pending 173 MG/DL (74-106) H White Blood Count 7.4 K/UL (4.8-10.8) Red Blood Count 4.40 M/UL (4.70-6.10) L Hemoglobin 9.1 G/DL (14.2-18.0) L Hematocrit 30.0 % (42.0-52.0) L Mean Corpuscular Volume 68 FL (80-99) L Mean Corpuscular Hemoglobin 20.8 PG (27.0-31.0) L Mean Corpuscular Hemoglobin Concent 30.4 G/DL (32.0-36.0) L Red Cell Distribution Width 12.8 % (11.6-14.8) Platelet Count 316 K/UL (150-450) Mean Platelet Volume 7.8 FL (6.5-10.1) Neutrophils (%) (Auto) 72.7 % (45.0-75.0) Lymphocytes (%) (Auto) 20.4 % (20.0-45.0) Monocytes (%) (Auto) 4.3 % (1.0-10.0) Eosinophils (%) (Auto) 2.1 % (0.0-3.0) Basophils (%) (Auto) 0.5 % (0.0-2.0) Sodium Level 154 MMOL/L (136-145) H Potassium Level 3.2 MMOL/L (3.5-5.1) L Chloride Level 114 MMOL/L (98-107) H Carbon Dioxide Level 27 MMOL/L (21-32) Anion Gap 13 mmol/L (5-15) Blood Urea Nitrogen 27 mg/dL (7-18) H Creatinine 1.3 MG/DL (0.55-1.30) Estimat Glomerular Filtration Rate 55.9 mL/min (>60) Glucose Level 191 MG/DL (74-106) H Uric Acid 2.7 MG/DL (2.6-7.2) Calcium Level 8.7 MG/DL (8.5-10.1) Phosphorus Level 2.3 MG/DL (2.5-4.9) L Magnesium Level 1.8 MG/DL (1.8-2.4) Iron Level 66 ug/dL (50-175) Total Iron Binding Capacity 117 ug/dL (250-450) L Percent Iron Saturation 56 % (15-50) H Unsaturated Iron Binding 51 ug/dL (112-346) L Ferritin 461 NG/ML (8-388) H Total Bilirubin 0.2 MG/DL (0.2-1.0) Gamma Glutamyl Transpeptidase 34 U/L (5-85) Aspartate Amino Transf (AST/SGOT) 7 U/L (15-37) L Alanine Aminotransferase (ALT/SGPT) 14 U/L (12-78) Alkaline Phosphatase 69 U/L (46-116) Lactate Dehydrogenase 121 U/L (81-234) Troponin I 0.000 ng/mL (0.000-0.056) C-Reactive Protein, Quantitative 12.6 mg/dL (0.00-0.90) H Pro-B-Type Natriuretic Peptide 1054 pg/mL (0-125) H Total Protein 7.6 G/DL (6.4-8.2) Albumin 2.3 G/DL (3.4-5.0) L Globulin 5.3 g/dL Albumin/Globulin Ratio 0.4 (1.0-2.7) L Vitamin B12 Level 868 PG/ML (193-986) Folate 17.3 NG/ML (8.6-58.9) Cortisol AM Sample Pending Random Vancomycin Level 10.8 ug/mL Height (Feet): 5 Height (Inches): 7.00 Weight (Pounds): 134 Medications Current Medications Medications (Trade) Dose Ordered Sig/Monalisa Route PRN Reason Start Time Stop Time Status Last Admin Dose Admin Acetaminophen (Tylenol) 325 mg Q4H PRN GT MILD PAIN/FEVER 03/13/20 12:45 04/12/20 11:59 Albuterol/ Ipratropium (Albuterol/ Ipratropium) 3 ml QIDRT PRN HHN Shortness of Breath 03/13/20 12:00 03/18/20 11:59 Ascorbic Acid (Vitamin C) 500 mg TWICE A DAY GT 03/13/20 18:00 04/12/20 17:59 03/14/20 17:55 Dextrose (Dextrose 50%) 25 ml Q30M PRN IV Hypoglycemia 03/13/20 00:30 06/11/20 00:29 Dextrose (Dextrose 50%) 25 ml Q30M PRN IV Hypoglycemia 03/13/20 12:00 06/11/20 11:59 Dextrose (Dextrose 50%) 50 ml Q30M PRN IV Hypoglycemia 03/13/20 00:30 06/11/20 00:29 Dextrose (Dextrose 50%) 50 ml Q30M PRN IV Hypoglycemia 03/13/20 12:00 06/11/20 11:59 Docusate Sodium (Colace) 100 mg TWICE A DAY GT 03/13/20 18:00 04/12/20 17:59 03/14/20 17:55 Finasteride (Proscar) 5 mg DAILY ORAL 03/14/20 09:00 06/12/20 08:59 03/14/20 09:11 Heparin Sodium (Porcine) (Heparin 5000 units/ml) 5,000 units EVERY 12 HOURS SUBQ 03/13/20 21:00 04/27/20 20:59 03/14/20 21:37 Insulin Aspart (NovoLOG) Q6HR SUBQ 03/13/20 06:00 06/11/20 05:59 03/15/20 05:52 Lansoprazole (Prevacid) 30 mg Q12HR GT 03/14/20 21:00 04/13/20 20:59 03/14/20 21:35 Levetiracetam (Keppra) 1,000 mg Q12HR GT 03/14/20 21:00 04/27/20 12:59 03/14/20 21:37 Lorazepam (Ativan) 1 mg Q6H PRN ORAL For Anxiety 03/13/20 19:30 03/20/20 19:29 03/14/20 21:35 Metoprolol Tartrate (Lopressor) 25 mg Q12HR GT 03/13/20 21:00 06/11/20 20:59 03/13/20 20:31 Ondansetron HCl (Zofran) 4 mg Q6H PRN GT Nausea & Vomiting 03/13/20 11:30 04/12/20 11:29 Piperacillin Sod/ Tazobactam Sod 3.375 gm/Sodium Chloride 110 ml @ 27.5 mls/hr EVERY 8 HOURS IVPB 03/13/20 14:00 03/18/20 13:59 03/15/20 05:51 Potassium Phosphate 20 mm/ Sodium Chloride 281.6667 ml @ 46.944 m... ONCE IV 03/15/20 10:30 03/15/20 15:00 Risperidone (RisperDAL) 1 mg QHS ORAL 03/13/20 21:00 04/27/20 20:59 03/14/20 21:35 Sodium Chloride 1,000 ml @ 75 mls/hr [id number] IV 03/13/20 12:18 04/12/20 12:17 03/14/20 17:55 Assessment/Plan Problem List: (1) Sepsis ICD Codes: A41.9 - Sepsis, unspecified organism SNOMED: 13209889 (2) JULIO CÉSAR (acute kidney injury) ICD Codes: N17.9 - Acute kidney failure, unspecified SNOMED: 51070982, 1171321 (3) Tachycardia ICD Codes: R00.0 - Tachycardia, unspecified SNOMED: 4807111 (4) Diabetes ICD Codes: E11.9 - Type 2 diabetes mellitus without complications SNOMED: 83145793 (5) Schizophrenia ICD Codes: F20.9 - Schizophrenia, unspecified SNOMED: 47641006 (6) Seizure disorder ICD Codes: G40.909 - Epilepsy, unspecified, not intractable,without status epilepticus SNOMED: 278570770 (7) Hyperosmolar coma ICD Codes: E11.01 - Hyperosmolar coma SNOMED: 03529208 (8) OBS (organic brain syndrome) ICD Codes: F09 - Unspecified mental disorder due to known physiological condition SNOMED: 596803854 (9) UTI (urinary tract infection) ICD Codes: N39.0 - Urinary tract infection, site not specified SNOMED: 77662375 (10) Adrenal insufficiency ICD Codes: E27.40 - Adrenal insufficiency SNOMED: 887883004 (11) Hypertension ICD Codes: I10 - Hypertension SNOMED: 77641350 (12) ARF (acute renal failure) ICD Codes: N17.9 - Acute kidney failure, unspecified SNOMED: 99589001 (13) Severe sepsis ICD Codes: A41.9 - Sepsis, unspecified organism; R65.20 - Severe sepsis without septicshock SNOMED: 89700154 (14) Diabetes mellitus out of control ICD Codes: E11.65 - Diabetes mellitus out of control SNOMED: 552104584 (15) Feeding by G-tube ICD Codes: Z93.1 - Feeding by G-tube SNOMED: 738524156 (16) C. 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 An Area of non-Blanchable erythema without induration noted to R trochanter.(L) 5.5cm x (W)4.4cm. Scattered areas of hyperpigmentation with hypertrophic scar noted to sacrum and buttocks. Darker skin tone without erythema noted to scrotum and perineum. Contractures bilat lower extremities. Non-Blanchable erythema lateral L Tibia(L) 11.5cm x (W)1cm. Two small partial thickness wounds noted to web space of L 2nd metatarsal. Full Thickness Pressure injury R Heel (L)4cm x (W)5.2cm x (D)0.1cm. Base of wound is 40% necrotic ,60% pink with scattered Biofilm.No odor noted. Small amt serous exudate noted. Non-blanchable erythema periwound with dry loose skin. Unstageable Pressure injury Dorsal R 2nd Metatarsal.1.2cm x (W)1.5cm. Base of wound is 100% slough with erythematous borders and periwound. No odor or exudate noted. Tx.Plan: Apply Moisture Barrier Paste to Sacrum. Cover with Optifoam drsg. Change every 3 days and prn. Apply Moisture Barrier Paste to Scrotum and Perineum with each incontinence care. Apply Cavilon Skin Barrier to Bilat Hips/Trochanteric areas. Cover each site with Optifoam drsg. Change every 7 days and prn. Apply Betadine to R and L Foot wounds. Cover with Optifoam drsgs every 3 days and prn. Reposition at least every 2hours or as tolerated. Place Pillow between knees. Off-load heel with Pillow. APM/EDELMIRA Mattress. ICD Codes: L89.90 - Pressure ulcer of unspecified site, unspecified stage SNOMED: 421674085 (19) Suspected COVID-19 virus infection ICD Codes: Z20.828 - Contact with and (suspected) exposure to other viral communicable diseases SNOMED: 732260853 (20) COPD (chronic obstructive pulmonary disease) ICD Codes: J44.9 - Chronic obstructive pulmonary disease, unspecified SNOMED: 19090727 (21) Fever ICD Codes: R50.9 - Fever, unspecified SNOMED: 658556063 (22) Parkinson disease ICD Codes: G20 - Parkinson's disease SNOMED: 21618388 (23) BPH (benign prostatic hyperplasia) ICD Codes: N40.0 - Benign prostatic hyperplasia without lower urinary tract symptoms SNOMED: 662968594 Ziyad Bolaños Mar 15, 2020 09:27
[2020-03-15] MEDS: Docusate 100mg/10ml Liq GT SCH ×2 (09:46→17:56)
[2020-03-15] MEDS: Ascorbic Acid 500mg tab GT SCH ×2 (09:47→17:56)
[2020-03-15] MEDS: levETIRAcetam 500mg/5ml Liquid GT SCH ×2 (09:48→21:49)
[2020-03-15] MEDS: Heparin 5000 units/ml inj SUBQ SCH ×2 (09:49→21:50)
[2020-03-15] MEDS ORDERED: Potassium Phosphate 20 MM in NS 275 ML IV SCH (10:30)
--- NOTE | 2020-03-15 11:15 | Progress Note ---
DATE: 03/15/2020 SUBJECTIVE: This is a 64-year-old male patient. He has history of tachycardia, hyperglycemia, difficulties with sepsis, acute renal disease, diabetes, seizure disorder, hyperosmolar coma, urinary tract infection, acute renal failure causing him to have decline in cognition below his baseline that is why the attending has requested daily psychiatric consultation. MENTAL STATUS EXAMINATION: This is a 64-year-old male. Appearance is disheveled. Attitude, irritable and agitated. Affect, guarded and restricted. Intellect, poor. Mood, depressed and anxious. Motor activity, psychomotor agitation. Attention span is poor. Orientation x2. Speech is low volume and slurred. Thought process, disorganized and illogical. Insight and judgment is poor. DIAGNOSIS: Paranoid schizophrenia with acute exacerbation. PLAN: Treat him with Risperdal 1 mg nightly and Ativan 1 every 6 hours p.r.n. anxiety or agitation. Twenty minutes of insight-oriented psychotherapy to help this patient improve his understanding and recognition of his physical and psychiatric condition so he has better impulse control and less depression, anxiety. Chart reviewed and discussed with staff. Seen and assessed at bedside. Enrrique Escudero M.D. DR: Divya JOB#: [id number] CC:
[2020-03-15 12:00] VITALS: BP 113/69
--- NOTE | 2020-03-15 12:28 | Pulmonology Progress Note ---
Subjective ROS Limited/Unobtainable: Yes Constitutional: Reports: no symptoms HEENT: Repors: no symptoms Allergies: Coded Allergies: NO KNOWN DRUG ALLERGIES (Unverified Allergy, Unknown, 07/16/19) Objective Last 24 Hour Vital Signs Date Time Temp Pulse Resp B/P (MAP) Pulse Ox O2 Delivery O2 Flow Rate FiO2 03/15/20 09:48 78 101/67 03/15/20 09:00 Room Air 03/15/20 08:00 96.4 78 20 101/67 (78) 99 03/15/20 08:00 95 03/15/20 07:00 97 18 93 Room Air 21 03/15/20 04:00 98.2 98 18 118/67 (84) 97 03/15/20 03:51 96 03/15/20 00:00 97.8 104 18 113/69 (84) 97 03/14/20 23:34 108 03/14/20 21:35 100 109/70 03/14/20 21:00 Room Air 03/14/20 20:19 98 18 97 Room Air 21 03/14/20 20:00 98.1 100 19 109/70 (83) 97 03/14/20 19:03 101 03/14/20 15:58 98.5 102 20 108/68 (81) 98 03/14/20 15:12 105 Intake and Output 03/14/20 03/15/20 19:00 07:00 Intake Total 1635.000 ml 1577.5 ml Output Total 650 ml Balance 985.000 ml 1577.5 ml Intake Free Water 250 ml IV Total 1585.000 ml 777.5 ml Tube Feeding 50 ml 550 ml Output Urine Total 650 ml General Appearance: WD/WN HEENT: normocephalic, atraumatic Respiratory: chest wall non-tender, lungs clear Cardiovascular: normal peripheral pulses, normal rate Abdomen: normal bowel sounds, soft, non tender Extremities: no cyanosis 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 Complete 03/13/20 05:30 Urine,Clean Catch Urine Culture - Final Escherichia Coli - Esbl Complete 03/12/20 19:30 Rectum - Final NO CARBAPENEM-RESISTANT ENTEROBACTERI... Complete 03/12/20 19:30 Rectum VRE Culture - Final NO VANCOMYCIN RESISTANT ENTEROCOCCUS ... Complete Laboratory Tests 03/15/20 00:19: POC Whole Blood Glucose 173H 03/15/20 05:41: White Blood Count 7.4, Red Blood Count 4.40L, Hemoglobin 9.1L, Hematocrit 30.0L , Mean Corpuscular Volume 68L, Mean Corpuscular Hemoglobin 20.8L, Mean Corpuscular Hemoglobin Concent 30.4L, Red Cell Distribution Width 12.8, Platelet Count 316, Mean Platelet Volume 7.8, Neutrophils (%) (Auto) 72.7, Lymphocytes (%) (Auto) 20.4, Monocytes (%) (Auto) 4.3, Eosinophils (%) (Auto) 2.1, Basophils (%) (Auto) 0.5, Sodium Level 154H, Potassium Level 3.2L, Chloride Level 114H, Carbon Dioxide Level 27, Anion Gap 13, Blood Urea Nitrogen 27H, Creatinine 1.3, Estimat Glomerular Filtration Rate 55.9, Glucose Level 191H , Uric Acid 2.7, Calcium Level 8.7, Phosphorus Level 2.3L, Magnesium Level 1.8, Iron Level 66, Total Iron Binding Capacity 117L, Percent Iron Saturation 56H, Unsaturated Iron Binding 51L, Ferritin 461H, Total Bilirubin 0.2, Gamma Glutamyl Transpeptidase 34, Aspartate Amino Transf (AST/SGOT) 7L, Alanine Aminotransferase (ALT/SGPT) 14, Alkaline Phosphatase 69, Lactate Dehydrogenase 121, Troponin I 0.000, C-Reactive Protein, Quantitative 12.6H, Pro-B-Type Natriuretic Peptide 1054H, Total Protein 7.6, Albumin 2.3L, Globulin 5.3, Albumin/Globulin Ratio 0.4L, Vitamin B12 Level 868, Folate 17.3, Cortisol AM Sample [Pending], Random Vancomycin Level 10.8 Current Medications Medications (Trade) Dose Ordered Sig/Monalisa Route PRN Reason Start Time Stop Time Status Last Admin Dose Admin Acetaminophen (Tylenol) 325 mg Q4H PRN GT MILD PAIN/FEVER 03/13/20 12:45 04/12/20 11:59 Albuterol/ Ipratropium (Albuterol/ Ipratropium) 3 ml QIDRT PRN HHN Shortness of Breath 03/13/20 12:00 03/18/20 11:59 Ascorbic Acid (Vitamin C) 500 mg TWICE A DAY GT 03/13/20 18:00 04/12/20 17:59 03/15/20 09:47 Dextrose (Dextrose 50%) 25 ml Q30M PRN IV Hypoglycemia 03/13/20 00:30 06/11/20 00:29 Dextrose (Dextrose 50%) 25 ml Q30M PRN IV Hypoglycemia 03/13/20 12:00 06/11/20 11:59 Dextrose (Dextrose 50%) 50 ml Q30M PRN IV Hypoglycemia 03/13/20 00:30 06/11/20 00:29 Dextrose (Dextrose 50%) 50 ml Q30M PRN IV Hypoglycemia 03/13/20 12:00 06/11/20 11:59 Docusate Sodium (Colace) 100 mg TWICE A DAY GT 03/13/20 18:00 04/12/20 17:59 03/15/20 09:46 Finasteride (Proscar) 5 mg DAILY ORAL 03/14/20 09:00 06/12/20 08:59 03/15/20 09:46 Heparin Sodium (Porcine) (Heparin 5000 units/ml) 5,000 units EVERY 12 HOURS SUBQ 03/13/20 21:00 04/27/20 20:59 03/15/20 09:49 Insulin Aspart (NovoLOG) Q6HR SUBQ 03/13/20 06:00 06/11/20 05:59 03/15/20 05:52 Lansoprazole (Prevacid) 30 mg Q12HR GT 03/14/20 21:00 04/13/20 20:59 03/15/20 09:47 Levetiracetam (Keppra) 1,000 mg Q12HR GT 03/14/20 21:00 04/27/20 12:59 03/15/20 09:48 Lorazepam (Ativan) 1 mg Q6H PRN ORAL For Anxiety 03/13/20 19:30 03/20/20 19:29 03/14/20 21:35 Meropenem 1 gm/ Sodium Chloride 55 ml @ 110 mls/hr Q8HR IVPB 03/15/20 14:00 03/20/20 13:59 Metoprolol Tartrate (Lopressor) 25 mg Q12HR GT 03/13/20 21:00 06/11/20 20:59 03/15/20 09:48 Ondansetron HCl (Zofran) 4 mg Q6H PRN GT Nausea & Vomiting 03/13/20 11:30 04/12/20 11:29 Potassium Phosphate 20 mm/ Sodium Chloride 281.6667 ml @ 46.944 m... ONCE IV 03/15/20 10:30 03/15/20 15:00 03/15/20 10:42 Risperidone (RisperDAL) 1 mg QHS ORAL 03/13/20 21:00 04/27/20 20:59 03/14/20 21:35 Sodium Chloride 1,000 ml @ 75 mls/hr [id number] IV 03/13/20 12:18 04/12/20 12:17 03/14/20 17:55 Assessment/Plan Problems: (1) Sepsis (2) JULIO CÉSAR (acute kidney injury) (3) Suspected COVID-19 virus infection (4) COPD (chronic obstructive pulmonary disease) (5) Seizure disorder (6) Schizophrenia (7) BPH (benign prostatic hyperplasia) (8) Parkinson disease (9) Feeding by G-tube (10) Hypertension Assessment/Plan doing better, K supplement covid negative times one Urine has >100K GNB continue iv abx check sensitivity of GNB iv fluids check electrolytes dvt prophylaxis Lucie Gracia MD Mar 15, 2020 12:28
--- NOTE | 2020-03-15 13:17 | General Progress Note ---
Assessment/Plan Problem List: (1) JULIO CÉSAR (acute kidney injury) ICD Codes: N17.9 - Acute kidney failure, unspecified SNOMED: 08409094, 5012102 (2) Sepsis ICD Codes: A41.9 - Sepsis, unspecified organism SNOMED: 88832931 (3) Tachycardia ICD Codes: R00.0 - Tachycardia, unspecified SNOMED: 9004986 (4) Diabetes ICD Codes: E11.9 - Type 2 diabetes mellitus without complications SNOMED: 30644904 (5) Schizophrenia ICD Codes: F20.9 - Schizophrenia, unspecified SNOMED: 09490999 (6) Seizure disorder ICD Codes: G40.909 - Epilepsy, unspecified, not intractable,without status epilepticus SNOMED: 341682832 (7) UTI (urinary tract infection) ICD Codes: N39.0 - Urinary tract infection, site not specified SNOMED: 50271366 (8) Hypertension ICD Codes: I10 - Hypertension SNOMED: 29899975 (9) ARF (acute renal failure) ICD Codes: N17.9 - Acute kidney failure, unspecified SNOMED: 00782677 (10) Diabetes mellitus out of control ICD Codes: E11.65 - Diabetes mellitus out of control SNOMED: 953225328 (11) Feeding by G-tube ICD Codes: Z93.1 - Feeding by G-tube SNOMED: 045407992 (12) Decubitus ulcer ICD Codes: L89.90 - Pressure ulcer of unspecified site, unspecified stage SNOMED: 928766493 Status: progressing Assessment/Plan: htn elevated na and low k.consulted dr antoine for that sugar improving dm reviewed chat and labs dysphagia Subjective ROS Limited/Unobtainable: Yes Allergies: Coded Allergies: NO KNOWN DRUG ALLERGIES (Unverified Allergy, Unknown, 07/16/19) Objective Last 24 Hour Vital Signs Date Time Temp Pulse Resp B/P (MAP) Pulse Ox O2 Delivery O2 Flow Rate FiO2 03/15/20 12:00 85 03/15/20 12:00 97.7 84 20 113/69 (84) 100 03/15/20 09:48 78 101/67 03/15/20 09:00 Room Air 03/15/20 08:00 96.4 78 20 101/67 (78) 99 03/15/20 08:00 95 8/18/20 07:00 97 18 93 Room Air 21 03/15/20 04:00 98.2 98 18 118/67 (84) 97 03/15/20 03:51 96 03/15/20 00:00 97.8 104 18 113/69 (84) 97 03/14/20 23:34 108 03/14/20 21:35 100 109/70 03/14/20 21:00 Room Air 03/14/20 20:19 98 18 97 Room Air 21 03/14/20 20:00 98.1 100 19 109/70 (83) 97 03/14/20 19:03 101 03/14/20 15:58 98.5 102 20 108/68 (81) 98 03/14/20 15:12 105 Intake and Output 03/14/20 03/15/20 19:00 07:00 Intake Total 1635.000 ml 1577.5 ml Output Total 650 ml Balance 985.000 ml 1577.5 ml Intake Free Water 250 ml IV Total 1585.000 ml 777.5 ml Tube Feeding 50 ml 550 ml Output Urine Total 650 ml Laboratory Tests 03/15/20 00:19: POC Whole Blood Glucose 173H 03/15/20 05:41: White Blood Count 7.4, Red Blood Count 4.40L, Hemoglobin 9.1L, Hematocrit 30.0L , Mean Corpuscular Volume 68L, Mean Corpuscular Hemoglobin 20.8L, Mean Corpuscular Hemoglobin Concent 30.4L, Red Cell Distribution Width 12.8, Platelet Count 316, Mean Platelet Volume 7.8, Neutrophils (%) (Auto) 72.7, Lymphocytes (%) (Auto) 20.4, Monocytes (%) (Auto) 4.3, Eosinophils (%) (Auto) 2.1, Basophils (%) (Auto) 0.5, Sodium Level 154H, Potassium Level 3.2L, Chloride Level 114H, Carbon Dioxide Level 27, Anion Gap 13, Blood Urea Nitrogen 27H, Creatinine 1.3, Estimat Glomerular Filtration Rate 55.9, Glucose Level 191H , Uric Acid 2.7, Calcium Level 8.7, Phosphorus Level 2.3L, Magnesium Level 1.8, Iron Level 66, Total Iron Binding Capacity 117L, Percent Iron Saturation 56H, Unsaturated Iron Binding 51L, Ferritin 461H, Total Bilirubin 0.2, Gamma Glutamyl Transpeptidase 34, Aspartate Amino Transf (AST/SGOT) 7L, Alanine Aminotransferase (ALT/SGPT) 14, Alkaline Phosphatase 69, Lactate Dehydrogenase 121, Troponin I 0.000, C-Reactive Protein, Quantitative 12.6H, Pro-B-Type Natriuretic Peptide 1054H, Total Protein 7.6, Albumin 2.3L, Globulin 5.3, Albumin/Globulin Ratio 0.4L, Vitamin B12 Level 868, Folate 17.3, Cortisol AM Sample [Pending], Random Vancomycin Level 10.8 Height (Feet): 5 Height (Inches): 7.00 Weight (Pounds): 134 Amy Martínez MD Mar 15, 2020 13:17
[2020-03-15] MEDS: Meropenem 1 GM in NS 55 ML IVPB SCH ×2 (13:26→21:50)
--- NOTE | 2020-03-15 15:07 | Nephrology Progress Note ---
Assessment/Plan Problem List: (1) JULIO CÉSAR (acute kidney injury) (2) Dehydration (3) UTI (urinary tract infection) (4) Severe sepsis (5) Feeding by G-tube (6) Diabetes mellitus out of control (7) Seizure disorder Assessment Acute renal failure, patient presents with serum creatinine of 2 Dehydration, electrolyte imbalances Sepsis, UTI Diabetes mellitus [id number] Hypertension COPD, aspiration risk History of CVA, seizure disorder Cerebral palsy Protein calorie malnutrition Suspected COVID-19 virus infection Schizophrenia BPH G-tube feeding History of Parkinson's disease Plan March 15: Serum creatinine to baseline. Labs reviewed. Sodium remains elevated and potassium remains low. Continue half-normal saline hypotonic IV fluid hydration with IV potassium chloride. Per orders. Previous suggestions: Hydrate, free water via GT for hypernatremia Potassium supplement Adjust blood pressure medication as the patient is hypotensive Albumin bolus Anemia work-up Monitor renal parameters Avoid nephrotoxic's Per orders Subjective ROS Limited/Unobtainable: Yes Objective Objective Last 24 Hour Vital Signs Date Time Temp Pulse Resp B/P (MAP) Pulse Ox O2 Delivery O2 Flow Rate FiO2 03/15/20 12:00 85 03/15/20 12:00 97.7 84 20 113/69 (84) 100 03/15/20 09:48 78 101/67 03/15/20 09:00 Room Air 03/15/20 08:00 96.4 78 20 101/67 (78) 99 03/15/20 08:00 95 03/15/20 07:00 97 18 93 Room Air 21 03/15/20 04:00 98.2 98 18 118/67 (84) 97 03/15/20 03:51 96 03/15/20 00:00 97.8 104 18 113/69 (84) 97 03/14/20 23:34 108 03/14/20 21:35 100 109/70 03/14/20 21:00 Room Air 03/14/20 20:19 98 18 97 Room Air 21 03/14/20 20:00 98.1 100 19 109/70 (83) 97 03/14/20 19:03 101 03/14/20 15:58 98.5 102 20 108/68 (81) 98 03/14/20 15:12 105 Intake and Output 03/14/20 03/15/20 19:00 07:00 Intake Total 1635.000 ml 1577.5 ml Output Total 650 ml Balance 985.000 ml 1577.5 ml Intake Free Water 250 ml IV Total 1585.000 ml 777.5 ml Tube Feeding 50 ml 550 ml Output Urine Total 650 ml Current Medications Medications (Trade) Dose Ordered Sig/Monalisa Route PRN Reason Start Time Stop Time Status Last Admin Dose Admin Acetaminophen (Tylenol) 325 mg Q4H PRN GT MILD PAIN/FEVER 03/13/20 12:45 04/12/20 11:59 Albuterol/ Ipratropium (Albuterol/ Ipratropium) 3 ml QIDRT PRN HHN Shortness of Breath 03/13/20 12:00 03/18/20 11:59 Ascorbic Acid (Vitamin C) 500 mg TWICE A DAY GT 03/13/20 18:00 04/12/20 17:59 03/15/20 09:47 Dextrose (Dextrose 50%) 25 ml Q30M PRN IV Hypoglycemia 03/13/20 00:30 06/11/20 00:29 Dextrose (Dextrose 50%) 25 ml Q30M PRN IV Hypoglycemia 03/13/20 12:00 06/11/20 11:59 Dextrose (Dextrose 50%) 50 ml Q30M PRN IV Hypoglycemia 03/13/20 00:30 06/11/20 00:29 Dextrose (Dextrose 50%) 50 ml Q30M PRN IV Hypoglycemia 03/13/20 12:00 06/11/20 11:59 Docusate Sodium (Colace) 100 mg TWICE A DAY GT 03/13/20 18:00 04/12/20 17:59 03/15/20 09:46 Finasteride (Proscar) 5 mg DAILY ORAL 03/14/20 09:00 06/12/20 08:59 03/15/20 09:46 Heparin Sodium (Porcine) (Heparin 5000 units/ml) 5,000 units EVERY 12 HOURS SUBQ 03/13/20 21:00 04/27/20 20:59 03/15/20 09:49 Insulin Aspart (NovoLOG) Q6HR SUBQ 03/13/20 06:00 06/11/20 05:59 03/15/20 12:26 Lansoprazole (Prevacid) 30 mg Q12HR GT 03/14/20 21:00 04/13/20 20:59 03/15/20 09:47 Levetiracetam (Keppra) 1,000 mg Q12HR GT 03/14/20 21:00 04/27/20 12:59 03/15/20 09:48 Lorazepam (Ativan) 1 mg Q6H PRN ORAL For Anxiety 03/13/20 19:30 03/20/20 19:29 03/14/20 21:35 Meropenem 1 gm/ Sodium Chloride 55 ml @ 110 mls/hr Q8HR IVPB 03/15/20 14:00 03/20/20 13:59 03/15/20 13:26 Metoprolol Tartrate (Lopressor) 25 mg Q12HR GT 03/13/20 21:00 06/11/20 20:59 03/15/20 09:48 Ondansetron HCl (Zofran) 4 mg Q6H PRN GT Nausea & Vomiting 03/13/20 11:30 04/12/20 11:29 Risperidone (RisperDAL) 1 mg QHS ORAL 03/13/20 21:00 04/27/20 20:59 03/14/20 21:35 Sodium Chloride 1,000 ml @ 75 mls/hr [id number] IV 03/13/20 12:18 04/12/20 12:17 03/14/20 17:55 Laboratory Tests 03/15/20 00:19: POC Whole Blood Glucose 173H 03/15/20 05:41: White Blood Count 7.4, Red Blood Count 4.40L, Hemoglobin 9.1L, Hematocrit 30.0L , Mean Corpuscular Volume 68L, Mean Corpuscular Hemoglobin 20.8L, Mean Corpuscular Hemoglobin Concent 30.4L, Red Cell Distribution Width 12.8, Platelet Count 316, Mean Platelet Volume 7.8, Neutrophils (%) (Auto) 72.7, Lymphocytes (%) (Auto) 20.4, Monocytes (%) (Auto) 4.3, Eosinophils (%) (Auto) 2.1, Basophils (%) (Auto) 0.5, Sodium Level 154H, Potassium Level 3.2L, Chloride Level 114H, Carbon Dioxide Level 27, Anion Gap 13, Blood Urea Nitrogen 27H, Creatinine 1.3, Estimat Glomerular Filtration Rate 55.9, Glucose Level 191H , Uric Acid 2.7, Calcium Level 8.7, Phosphorus Level 2.3L, Magnesium Level 1.8, Iron Level 66, Total Iron Binding Capacity 117L, Percent Iron Saturation 56H, Unsaturated Iron Binding 51L, Ferritin 461H, Total Bilirubin 0.2, Gamma Glutamyl Transpeptidase 34, Aspartate Amino Transf (AST/SGOT) 7L, Alanine Aminotransferase (ALT/SGPT) 14, Alkaline Phosphatase 69, Lactate Dehydrogenase 121, Troponin I 0.000, C-Reactive Protein, Quantitative 12.6H, Pro-B-Type Natriuretic Peptide 1054H, Total Protein 7.6, Albumin 2.3L, Globulin 5.3, Albumin/Globulin Ratio 0.4L, Vitamin B12 Level 868, Folate 17.3, Cortisol AM Sample 17.1, Random Vancomycin Level 10.8 Height (Feet): 5 Height (Inches): 7.00 Weight (Pounds): 134 General Appearance: no apparent distress, lethargic Cardiovascular: normal rate Respiratory/Chest: decreased breath sounds Abdomen: distended, other - G-tube feeding Xander Lake MD Mar 15, 2020 15:07
[2020-03-15 16:00] VITALS: BP 106/71
--- NOTE | 2020-03-15 16:00 | Diagnostic Imaging Report ---
Indication: Abdominal distention Technique: Supine view of the abdomen Comparison: 10/08/2019 Findings: Again demonstrated is distention of the rectum with feces. The more proximal colon is much less distended with gas than on the prior exam. It contains considerable dense stool, however. Small bowel gas pattern is unremarkable. Surgical clips are seen in the left side of the pelvis. There is an old healed fracture deformity of the left hip. There are degenerative changes of the left hip. There are also degenerative spondylosis changes. No masses or unusual calcifications. There appears to be a compression fracture deformity of the L1 vertebral body. This was probably evident previously. Impression: Evidence of rectal fecal impaction and proximal constipation No definite acute process Incidental findings as noted
--- NOTE | 2020-03-15 17:10 | Cardiac Electrophysiology PN ---
Assessment/Plan Assessment/Plan 1. Sinus tachycardia, due to sepsis, anemia, respiratory failure and lactic acidosis. Ruled out for SC. Echocardiogram showed Nl EF 65% 2. Hypertension.Stable on metoprolol 25 mg b.i.d. 3. Lactic acidosis and sepsis, on IV antibiotic. 4. Dysphagia, status post G-tube placement. 5. Uncontrolled diabetes . 6. History of COVID-19 pneumonia, currently off isolation. DW RN DC tele Subjective Subjective RN at bedside. Confused. GT feeding ongoing Objective Last 24 Hour Vital Signs Date Time Temp Pulse Resp B/P (MAP) Pulse Ox O2 Delivery O2 Flow Rate FiO2 03/15/20 16:00 97.7 81 19 106/71 (83) 98 03/15/20 16:00 89 03/15/20 12:00 85 03/15/20 12:00 97.7 84 20 113/69 (84) 100 03/15/20 09:48 78 101/67 03/15/20 09:00 Room Air 03/15/20 08:00 96.4 78 20 101/67 (78) 99 03/15/20 08:00 95 03/15/20 07:00 97 18 93 Room Air 21 03/15/20 04:00 98.2 98 18 118/67 (84) 97 03/15/20 03:51 96 03/15/20 00:00 97.8 104 18 113/69 (84) 97 03/14/20 23:34 108 03/14/20 21:35 100 109/70 03/14/20 21:00 Room Air 03/14/20 20:19 98 18 97 Room Air 21 03/14/20 20:00 98.1 100 19 109/70 (83) 97 03/14/20 19:03 101 Intake and Output 03/14/20 03/15/20 19:00 07:00 Intake Total 1635.000 ml 1577.5 ml Output Total 650 ml Balance 985.000 ml 1577.5 ml Intake Free Water 250 ml IV Total 1585.000 ml 777.5 ml Tube Feeding 50 ml 550 ml Output Urine Total 650 ml Laboratory Tests Test 03/15/20 00:19 03/15/20 05:41 POC Whole Blood Glucose 173 MG/DL (74-106) H White Blood Count 7.4 K/UL (4.8-10.8) Red Blood Count 4.40 M/UL (4.70-6.10) L Hemoglobin 9.1 G/DL (14.2-18.0) L Hematocrit 30.0 % (42.0-52.0) L Mean Corpuscular Volume 68 FL (80-99) L Mean Corpuscular Hemoglobin 20.8 PG (27.0-31.0) L Mean Corpuscular Hemoglobin Concent 30.4 G/DL (32.0-36.0) L Red Cell Distribution Width 12.8 % (11.6-14.8) Platelet Count 316 K/UL (150-450) Mean Platelet Volume 7.8 FL (6.5-10.1) Neutrophils (%) (Auto) 72.7 % (45.0-75.0) Lymphocytes (%) (Auto) 20.4 % (20.0-45.0) Monocytes (%) (Auto) 4.3 % (1.0-10.0) Eosinophils (%) (Auto) 2.1 % (0.0-3.0) Basophils (%) (Auto) 0.5 % (0.0-2.0) Sodium Level 154 MMOL/L (136-145) H Potassium Level 3.2 MMOL/L (3.5-5.1) L Chloride Level 114 MMOL/L (98-107) H Carbon Dioxide Level 27 MMOL/L (21-32) Anion Gap 13 mmol/L (5-15) Blood Urea Nitrogen 27 mg/dL (7-18) H Creatinine 1.3 MG/DL (0.55-1.30) Estimat Glomerular Filtration Rate 55.9 mL/min (>60) Glucose Level 191 MG/DL (74-106) H Uric Acid 2.7 MG/DL (2.6-7.2) Calcium Level 8.7 MG/DL (8.5-10.1) Phosphorus Level 2.3 MG/DL (2.5-4.9) L Magnesium Level 1.8 MG/DL (1.8-2.4) Iron Level 66 ug/dL (50-175) Total Iron Binding Capacity 117 ug/dL (250-450) L Percent Iron Saturation 56 % (15-50) H Unsaturated Iron Binding 51 ug/dL (112-346) L Ferritin 461 NG/ML (8-388) H Total Bilirubin 0.2 MG/DL (0.2-1.0) Gamma Glutamyl Transpeptidase 34 U/L (5-85) Aspartate Amino Transf (AST/SGOT) 7 U/L (15-37) L Alanine Aminotransferase (ALT/SGPT) 14 U/L (12-78) Alkaline Phosphatase 69 U/L (46-116) Lactate Dehydrogenase 121 U/L (81-234) Troponin I 0.000 ng/mL (0.000-0.056) C-Reactive Protein, Quantitative 12.6 mg/dL (0.00-0.90) H Pro-B-Type Natriuretic Peptide 1054 pg/mL (0-125) H Total Protein 7.6 G/DL (6.4-8.2) Albumin 2.3 G/DL (3.4-5.0) L Globulin 5.3 g/dL Albumin/Globulin Ratio 0.4 (1.0-2.7) L Vitamin B12 Level 868 PG/ML (193-986) Folate 17.3 NG/ML (8.6-58.9) Cortisol AM Sample 17.1 UG/DL Random Vancomycin Level 10.8 ug/mL Microbiology Date/Time Source Procedure Growth Status 03/12/20 19:15 Blood Blood Culture - Preliminary NO GROWTH AFTER 48 HOURS Resulted 03/12/20 19:00 Blood Blood Culture - Preliminary NO GROWTH AFTER 48 HOURS Resulted 03/12/20 19:50 Nasopharynx SARS-CoV-2 RdRp Gene Assay - Final Complete 03/12/20 19:30 Nasal Nares MRSA Culture - Final NO METHICILLIN RESISTANT STAPH AUREUS... Complete 03/13/20 05:30 Urine,Clean Catch Urine Culture - Final Escherichia Coli - Esbl Complete 03/12/20 19:30 Rectum - Final NO CARBAPENEM-RESISTANT ENTEROBACTERI... Complete 03/12/20 19:30 Rectum VRE Culture - Final NO VANCOMYCIN RESISTANT ENTEROCOCCUS ... Complete Objective HEAD AND NECK: Shows no JVD. LUNGS: Decreased breath sounds. CARDIOVASCULAR: Shows regular S1 and S2. Tachycardic. ABDOMEN: Soft. The G-tube is intact. EXTREMITIES: No pitting edema. Sage Araujo MD Mar 15, 2020 17:10
[2020-03-15 20:00] VITALS: BP 106/68
[2020-03-16] VITALS: BP 97/66
[2020-03-16] MEDS: NovoLOG Insulin Flexpen SUBQ SCH ×5 (00:21→23:25)
[2020-03-16 04:00] VITALS: BP 105/72
[2020-03-16] MEDS: Meropenem 1 GM in NS 55 ML IVPB SCH ×3 (05:12→21:03)
--- NOTE | 2020-03-16 07:20 | Infectious Diseases Prog Note ---
Assessment/Plan 64yo with: Afebrile Tachycardia Hyperglycemia R/o sepsis Leukocytosis to 13, improving Pyuria, UTI 03/12 BCx NTD 03/12 CXR w/ low long volumes and bronchovascular crowding 03/13 UA +WBC, UCx +ESBL E.coli (R-levoflox, R-bactrim) MRSA nares neg COVID rapid Ag neg 03/12 H/o COVID 3 months ago CKD, Cr 2.0 ?Heart failure vs vol OL, BNP 791 PMH/PSH: CVA, seizure disorder, cerebral palsy, COPD, hypertension, dysphagia, feeding by G-tube, schizophrenia Plan: Cont meropenem #2/5 (abx day #4/7) for ESBL E.coli UTI 03/15 SP vanco #1, Zosyn #2 Trend WBC Trend Cr Monitor CBC/BMP Monitor resp status Monitor hemodynamics D/w RN Thank you for this consult. [facility] will continue to follow. Subjective Allergies: Coded Allergies: NO KNOWN DRUG ALLERGIES (Unverified Allergy, Unknown, 07/16/19) AF On RA, calm, NAD Objective Last 24 Hour Vital Signs Date Time Temp Pulse Resp B/P (MAP) Pulse Ox O2 Delivery O2 Flow Rate FiO2 03/16/20 04:00 97.6 92 19 105/72 (83) 96 03/16/20 00:00 97.0 93 16 97/66 (76) 96 03/15/20 21:00 Room Air 03/15/20 20:46 76 106/68 03/15/20 20:00 98.0 76 19 106/68 (81) 96 03/15/20 19:34 97 18 97 Room Air 21 03/15/20 16:00 97.7 81 19 106/71 (83) 98 03/15/20 16:00 89 03/15/20 12:00 85 03/15/20 12:00 97.7 84 20 113/69 (84) 100 03/15/20 09:48 78 101/67 03/15/20 09:00 Room Air 03/15/20 08:00 96.4 78 20 101/67 (78) 99 03/15/20 08:00 95 Height (Feet): 5 Height (Inches): 7.00 Weight (Pounds): 134 Gen: Older man, laying in bed, NAD CV: RRR Pulm: CTAB anteriorly Abd: Soft, NTND, +PEG Ext: No c/c/e Neuro: Non-verbal Current Medications Medications (Trade) Dose Ordered Sig/Monalisa Route PRN Reason Start Time Stop Time Status Last Admin Dose Admin Acetaminophen (Tylenol) 325 mg Q4H PRN GT MILD PAIN/FEVER 03/13/20 12:45 04/12/20 11:59 Albuterol/ Ipratropium (Albuterol/ Ipratropium) 3 ml QIDRT PRN HHN Shortness of Breath 03/13/20 12:00 03/18/20 11:59 Ascorbic Acid (Vitamin C) 500 mg TWICE A DAY GT 03/13/20 18:00 04/12/20 17:59 03/15/20 17:56 Dextrose (Dextrose 50%) 25 ml Q30M PRN IV Hypoglycemia 03/13/20 00:30 06/11/20 00:29 Dextrose (Dextrose 50%) 25 ml Q30M PRN IV Hypoglycemia 03/13/20 12:00 06/11/20 11:59 Dextrose (Dextrose 50%) 50 ml Q30M PRN IV Hypoglycemia 03/13/20 00:30 06/11/20 00:29 Dextrose (Dextrose 50%) 50 ml Q30M PRN IV Hypoglycemia 03/13/20 12:00 06/11/20 11:59 Docusate Sodium (Colace) 100 mg TWICE A DAY GT 03/13/20 18:00 04/12/20 17:59 03/15/20 17:56 Finasteride (Proscar) 5 mg DAILY ORAL 03/14/20 09:00 06/12/20 08:59 03/15/20 09:46 Heparin Sodium (Porcine) (Heparin 5000 units/ml) 5,000 units EVERY 12 HOURS SUBQ 03/13/20 21:00 04/27/20 20:59 03/15/20 21:50 Insulin Aspart (NovoLOG) Q6HR SUBQ 03/13/20 06:00 06/11/20 05:59 03/16/20 00:21 Lansoprazole (Prevacid) 30 mg Q12HR GT 03/14/20 21:00 04/13/20 20:59 03/15/20 21:49 Levetiracetam (Keppra) 1,000 mg Q12HR GT 03/14/20 21:00 04/27/20 12:59 03/15/20 21:49 Lorazepam (Ativan) 1 mg Q6H PRN ORAL For Anxiety 03/13/20 19:30 03/20/20 19:29 03/14/20 21:35 Meropenem 1 gm/ Sodium Chloride 55 ml @ 110 mls/hr Q8HR IVPB 03/15/20 14:00 03/20/20 13:59 03/16/20 05:12 Metoprolol Tartrate (Lopressor) 25 mg Q12HR GT 03/13/20 21:00 06/11/20 20:59 03/15/20 09:48 Ondansetron HCl (Zofran) 4 mg Q6H PRN GT Nausea & Vomiting 03/13/20 11:30 04/12/20 11:29 Risperidone (RisperDAL) 1 mg QHS ORAL 03/13/20 21:00 04/27/20 20:59 03/15/20 21:49 Sodium Chloride 1,000 ml @ 75 mls/hr [id number] IV 03/13/20 12:18 04/12/20 12:17 03/15/20 17:56 Joy Vang M.D. Mar 16, 2020 07:20
[2020-03-16 08:00] VITALS: BP 110/71
[2020-03-16] MEDS ORDERED: Albuterol/Ipratropium 3ml neb HHN PRN (09:00)
[2020-03-16] MEDS ORDERED: LORazepam 1mg tab ORAL PRN (09:00)
[2020-03-16] MEDS ORDERED: LORazepam 1mg tab GT PRN (09:00)
[2020-03-16] MEDS ORDERED: Acetaminophen 650mg/20.3ml GT PRN (09:00)
[2020-03-16] MEDS: Docusate 100mg/10ml Liq GT SCH ×2 (09:31→17:42)
[2020-03-16] MEDS: levETIRAcetam 500mg/5ml Liquid GT SCH ×2 (09:31→20:53)
[2020-03-16] MEDS: Ascorbic Acid 500mg tab GT SCH ×2 (09:32→17:41)
[2020-03-16] MEDS: Heparin 5000 units/ml inj SUBQ SCH ×2 (09:44→20:52)
[2020-03-16 12:00] VITALS: BP 112/75
--- NOTE | 2020-03-16 13:18 | Pulmonology Progress Note ---
Subjective ROS Limited/Unobtainable: Yes Constitutional: Reports: no symptoms HEENT: Repors: no symptoms Allergies: Coded Allergies: NO KNOWN DRUG ALLERGIES (Unverified Allergy, Unknown, 07/16/19) Objective Last 24 Hour Vital Signs Date Time Temp Pulse Resp B/P (MAP) Pulse Ox O2 Delivery O2 Flow Rate FiO2 03/16/20 12:00 96.4 98 16 112/75 (87) 99 03/16/20 09:32 95 110/71 03/16/20 09:00 Room Air 03/16/20 08:00 97.3 95 15 110/71 (84) 97 03/16/20 04:00 97.6 92 19 105/72 (83) 96 03/16/20 00:00 97.0 93 16 97/66 (76) 96 03/15/20 21:00 Room Air 03/15/20 20:46 76 106/68 03/15/20 20:00 98.0 76 19 106/68 (81) 96 03/15/20 19:34 97 18 97 Room Air 21 03/15/20 16:00 97.7 81 19 106/71 (83) 98 03/15/20 16:00 89 Intake and Output 03/15/20 03/16/20 19:00 07:00 Intake Total 125 ml 2180 ml Output Total 700 ml Balance -575 ml 2180 ml Intake Free Water 500 ml IV Total 75 ml 1030 ml Tube Feeding 50 ml 650 ml Output Urine Total 700 ml General Appearance: WD/WN HEENT: normocephalic, atraumatic Respiratory: chest wall non-tender, lungs clear Cardiovascular: normal peripheral pulses, normal rate Abdomen: normal bowel sounds, soft, non tender, hyperactive bowel sounds Extremities: no cyanosis Neurologic: cream dumper II-XII grossly normal Lymphatic: no neck adenopathy Current Medications Medications (Trade) Dose Ordered Sig/Monalisa Route PRN Reason Start Time Stop Time Status Last Admin Dose Admin Acetaminophen (Tylenol) 325 mg Q4H PRN GT Mild Pain(Pain Scale1-3)/fever 03/16/20 09:00 04/12/20 08:59 Albuterol/ Ipratropium (Albuterol/ Ipratropium) 3 ml QIDRT PRN HHN Shortness of Breath 03/16/20 09:00 8/21/20 08:59 Ascorbic Acid (Vitamin C) 500 mg TWICE A DAY GT 03/16/20 09:00 04/12/20 17:59 03/16/20 09:32 Dextrose 1,000 ml @ 75 mls/hr [id number] IV 03/16/20 10:00 04/15/20 09:59 03/16/20 10:34 Dextrose (Dextrose 50%) 25 ml Q30M PRN IV Hypoglycemia 03/16/20 09:00 06/11/20 08:59 Dextrose (Dextrose 50%) 50 ml Q30M PRN IV Hypoglycemia 03/16/20 09:00 06/11/20 08:59 Docusate Sodium (Colace) 100 mg TWICE A DAY GT 03/16/20 09:00 04/12/20 17:59 03/16/20 09:31 Finasteride (Proscar) 5 mg DAILY ORAL 03/16/20 13:00 06/12/20 12:59 03/16/20 12:54 Heparin Sodium (Porcine) (Heparin 5000 units/ml) 5,000 units EVERY 12 HOURS SUBQ 03/16/20 09:00 04/27/20 20:59 03/16/20 09:44 Insulin Aspart (NovoLOG) Q6HR SUBQ 03/16/20 12:00 06/11/20 05:59 03/16/20 12:55 Lansoprazole (Prevacid) 30 mg Q12HR GT 03/16/20 09:30 04/13/20 09:29 03/16/20 10:35 Levetiracetam (Keppra) 1,000 mg Q12HR GT 03/16/20 09:00 04/27/20 12:59 03/16/20 09:31 Lorazepam (Ativan) 1 mg Q6H PRN GT For Anxiety 03/16/20 09:00 03/20/20 08:59 03/16/20 09:32 Meropenem 1 gm/ Sodium Chloride 55 ml @ 110 mls/hr Q8HR IVPB 03/16/20 14:00 03/20/20 13:59 Metoprolol Tartrate (Lopressor) 25 mg Q12HR GT 03/16/20 09:00 06/11/20 20:59 03/16/20 09:32 Ondansetron HCl (Zofran) 4 mg Q6H PRN GT Nausea & Vomiting 03/16/20 09:00 04/12/20 08:59 Potassium Chloride 100 ml @ 100 mls/hr Q1H IVPB 03/16/20 10:30 03/16/20 14:29 03/16/20 12:58 Risperidone (RisperDAL) 1 mg QHS GT 03/16/20 21:00 04/27/20 20:59 Assessment/Plan Problems: (1) Sepsis (2) JULIO CÉSAR (acute kidney injury) (3) Suspected COVID-19 virus infection (4) COPD (chronic obstructive pulmonary disease) (5) Seizure disorder (6) Schizophrenia (7) BPH (benign prostatic hyperplasia) (8) Parkinson disease (9) Feeding by G-tube (10) Hypertension Assessment/Plan doing better, K supplement covid negative times one Urine has >100K GNB continue iv abx check sensitivity of GNB iv fluids check electrolytes dvt prophylaxis Lucie Gracia MD Mar 16, 2020 13:18
--- NOTE | 2020-03-16 13:30 | Nephrology Progress Note ---
Assessment/Plan Problem List: (1) JULIO CÉSAR (acute kidney injury) (2) Dehydration (3) UTI (urinary tract infection) (4) Severe sepsis (5) Feeding by G-tube (6) Diabetes mellitus out of control (7) Seizure disorder Assessment Acute renal failure, patient presents with serum creatinine of 2 Dehydration, electrolyte imbalances Sepsis, UTI Diabetes mellitus [id number] Hypertension COPD, aspiration risk History of CVA, seizure disorder Cerebral palsy Protein calorie malnutrition Suspected COVID-19 virus infection Schizophrenia BPH G-tube feeding History of Parkinson's disease Plan March 16: No labs drawn today. Patient on D5W IV fluid. Will check labs tomorrow. Continue per consultants. March 15: Serum creatinine to baseline. Labs reviewed. Sodium remains elevated and potassium remains low. Continue half-normal saline hypotonic IV fluid hydration with IV potassium chloride. Per orders. Previous suggestions: Hydrate, free water via GT for hypernatremia Potassium supplement Adjust blood pressure medication as the patient is hypotensive Albumin bolus Anemia work-up Monitor renal parameters Avoid nephrotoxic's Per orders Subjective ROS Limited/Unobtainable: No Constitutional: Reports: malaise Objective Objective Last 24 Hour Vital Signs Date Time Temp Pulse Resp B/P (MAP) Pulse Ox O2 Delivery O2 Flow Rate FiO2 03/16/20 12:00 96.4 98 16 112/75 (87) 99 03/16/20 09:32 95 110/71 03/16/20 09:00 Room Air 03/16/20 08:00 97.3 95 15 110/71 (84) 97 03/16/20 04:00 97.6 92 19 105/72 (83) 96 03/16/20 00:00 97.0 93 16 97/66 (76) 96 03/15/20 21:00 Room Air 03/15/20 20:46 76 106/68 03/15/20 20:00 98.0 76 19 106/68 (81) 96 03/15/20 19:34 97 18 97 Room Air 21 03/15/20 16:00 97.7 81 19 106/71 (83) 98 03/15/20 16:00 89 Intake and Output 03/15/20 03/16/20 19:00 07:00 Intake Total 125 ml 2180 ml Output Total 700 ml Balance -575 ml 2180 ml Intake Free Water 500 ml IV Total 75 ml 1030 ml Tube Feeding 50 ml 650 ml Output Urine Total 700 ml Height (Feet): 5 Height (Inches): 7.00 Weight (Pounds): 134 General Appearance: no apparent distress, lethargic Cardiovascular: tachycardia - Rate mid 90s Respiratory/Chest: decreased breath sounds Abdomen: other - PEG in place Xander Lake MD Mar 16, 2020 13:30
--- NOTE | 2020-03-16 13:31 | Cardiac Electrophysiology PN ---
Assessment/Plan Assessment/Plan 1. Sinus tachycardia, due to sepsis, anemia, respiratory failure and lactic acidosis. Ruled out for CT. Echo Nl EF 65%. DCed tele 2. Hypertension. Stable on metoprolol 25 mg b.i.d. 3. Lactic acidosis and sepsis, on IV antibiotic. 4. Dysphagia, status post G-tube placement. 5. Uncontrolled diabetes . 6. History of COVID-19 pneumonia, currently off isolation. DIXON RN Subjective Subjective . Confused. GT feeding ongoing in NAD off restraints Objective Last 24 Hour Vital Signs Date Time Temp Pulse Resp B/P (MAP) Pulse Ox O2 Delivery O2 Flow Rate FiO2 03/16/20 12:00 96.4 98 16 112/75 (87) 99 03/16/20 09:32 95 110/71 03/16/20 09:00 Room Air 03/16/20 08:00 97.3 95 15 110/71 (84) 97 03/16/20 04:00 97.6 92 19 105/72 (83) 96 03/16/20 00:00 97.0 93 16 97/66 (76) 96 03/15/20 21:00 Room Air 03/15/20 20:46 76 106/68 03/15/20 20:00 98.0 76 19 106/68 (81) 96 03/15/20 19:34 97 18 97 Room Air 21 03/15/20 16:00 97.7 81 19 106/71 (83) 98 03/15/20 16:00 89 Intake and Output 03/15/20 03/16/20 19:00 07:00 Intake Total 125 ml 2180 ml Output Total 700 ml Balance -575 ml 2180 ml Intake Free Water 500 ml IV Total 75 ml 1030 ml Tube Feeding 50 ml 650 ml Output Urine Total 700 ml Objective HEAD AND NECK: Shows no JVD. LUNGS: Decreased breath sounds. CARDIOVASCULAR: Shows regular S1 and S2. Tachycardic. ABDOMEN: Soft. The G-tube is intact. EXTREMITIES: No pitting edema. Sage Araujo MD Mar 16, 2020 13:31
--- NOTE | 2020-03-16 14:21 | Surgery Progress Note ---
Surgery Progress Note Subjective Additional Comments tolerating tube feeds comfortable no n/v/f/c on mattress dressings going well Objective Last 24 Hour Vital Signs Date Time Temp Pulse Resp B/P (MAP) Pulse Ox O2 Delivery O2 Flow Rate FiO2 03/16/20 12:00 96.4 98 16 112/75 (87) 99 03/16/20 09:32 95 110/71 03/16/20 09:00 Room Air 03/16/20 08:00 97.3 95 15 110/71 (84) 97 03/16/20 04:00 97.6 92 19 105/72 (83) 96 03/16/20 00:00 97.0 93 16 97/66 (76) 96 03/15/20 21:00 Room Air 03/15/20 20:46 76 106/68 03/15/20 20:00 98.0 76 19 106/68 (81) 96 03/15/20 19:34 97 18 97 Room Air 21 03/15/20 16:00 97.7 81 19 106/71 (83) 98 03/15/20 16:00 89 I&O Intake and Output 03/15/20 03/16/20 19:00 07:00 Intake Total 125 ml 2180 ml Output Total 700 ml Balance -575 ml 2180 ml Intake Free Water 500 ml IV Total 75 ml 1030 ml Tube Feeding 50 ml 650 ml Output Urine Total 700 ml Dressing: dry Wound: clean Cardiovascular: RSR Respiratory: clear Abdomen: soft, non-tender, present bowel sounds Extremities: no tenderness, no cyanosis Plan Problems: (1) Sepsis (2) JULIO CÉSAR (acute kidney injury) (3) Tachycardia (4) Diabetes (5) Schizophrenia (6) Seizure disorder (7) Hyperosmolar coma (8) OBS (organic brain syndrome) (9) UTI (urinary tract infection) (10) Adrenal insufficiency (11) Hypertension (12) ARF (acute renal failure) (13) Severe sepsis (14) Diabetes mellitus out of control (15) Feeding by G-tube (16) C. 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
[2020-03-16 16:00] VITALS: BP 118/74
--- NOTE | 2020-03-16 19:49 | IOP Physician Progress Note ---
IOP Physician Progress Note Date: Mar 16, 2020 Description of Symptoms: This is a 64-year-old male patient confused disorganized mood labile is got altered mental status and confusion he has an overall decline in cognition below his baseline. 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 20 minutes of cognitive behavioral therapy was provided while helping him identify his arm and negative thoughts help him convert his negative thoughts to more positive thoughts to reduce depression anxiety mood lability date of service is March 16 chart been reviewed discussed thank you Diagnosis (1) JULIO CÉSAR (acute kidney injury) (2) Sepsis Keene I: Keene: II Keene: III Keene: IV Keene: V Home Meds: Reported Medications Levetiracetam (Keppra) 100 Mg/1 Ml Solution, 20 ML GT BID for SEIZURE, #300 ML 0 Refills 03/14/20 [Santyl] No Conflict Check, 250 GM TOPIC APPLY TO 2ND TOW TP QD FOR ARTERIAL ULCER FOR 30 DAY CLEANSE 03/12/20 Amino Acids/Protein Hydrolys (PRO-STAT LIQUID) 30 Ml Liquid.pkt, 30 ML GT DAILY for Wound management, ML 12/23/19 Ascorbic Acid* (VITAMIN C*) 250 Mg Tablet, 250 MG GT DAILY for , #30 TAB 0 Refills 12/21/19 Ondansetron* (ZOFRAN*) 4 Mg Tablet, 4 MG GT Q6H PRN for Nausea & Vomiting, TAB 11/10/17 Acetaminophen* (ACETAMINOPHEN 325MG TABLET*) 325 Mg Tablet, 650 MG GT Q4H PRN for Fever/Headache/Mild Pain, TAB 11/10/17 Risperidone* (RISPERDAL*) 1 Mg Tablet, 1 MG GT BID for SEIZURE, TAB 11/10/17 Magnesium Hydroxide (Milk of Magnesia) 400 Mg/5 Ml Oral.susp, 30 ML GT BEDTIME, ML 11/10/17 Na Phos,M-B/Na Phos,Di-Ba* (FLEET ENEMA*) 133 Ml Enema, 133 ML RECTAL DAILY PRN for Constipation, ML 0 Refills 07/20/17 Multivitamin Liquid* (MULTI-DELYN*) 237 Ml Liquid, 5 ML GT DAILY, ML 03/24/17 Lacosamide (VIMPAT) 100 Mg Tablet, 100 MG GT BID for SEIZURE, TAB 03/24/17 Nitroglycerin (NITROGLYCERIN) 0.4 Mg Tab.subl, 0.4 MG SL q5mns x three doses PRN for chest pain, TAB 08/23/16 Finasteride* (PROSCAR*) 5 Mg Tablet, 5 MG GT DAILY, #30 TAB 0 Refills 08/23/16 Famotidine (PEPCID) 20 Mg Tablet, 20 MG ORAL BEDTIME, #7 TAB 0 Refills 03/09/16 Polyethylene Glycol 3350* (MIRALAX*) 17 Gm Powd.pack, 17 GM GT DAILY PRN for Constipation, PACKET 11/21/15 Docusate Sodium (DOCUSATE SODIUM) 100 Mg Tablet, 100 MG GT TWICE A DAY, #30 TAB 0 Refills 08/13/15 Discontinued Reported Medications Temazepam* (RESTORIL*) 15 Mg Capsule, 15 MG ORAL BEDTIME for insomnia, CAP 12/28/19 Lorazepam* (ATIVAN*) 1 Mg Tablet, 1 MG ORAL EVERY 6 HOURS PRN for Agitation, TAB 12/28/19 Heparin Sod (Porcine) (HEPARIN SODIUM*) 5 000/1 Ml Vial, 5000 UNITS SUBQ EVERY 12 HOURS for DVT PPX, VIAL 12/28/19 Quercetin Dihydrate (QUERCETIN DIHYDRATE) 1 Gm Powder, 500 MG GT BEFORE BREAKFAST for supplement, GM 12/23/19 Levetiracetam (KEPPRA) 1,000 Mg Tablet, 1000 MG GT TID for for siezures, #30 TAB 0 Refills 12/21/19 Insulin Aspart (Novolog Flexpen) 100 Unit/1 Ml Insuln.pen, for DM 10/05/19 Bisacodyl (DULCOLAX) 10 Mg Supp.rect, 10 MG RC DAILY PRN for Constipation, SUPP 11/10/17 Zinc Sulfate (ZINC SULFATE*) 220 Mg Capsule, 220 MG ORAL DAILY, CAP 0 Refills 07/20/17 Sennosides/Docusate Sodium (SENNA LAXATIVE TABLET) 1 Each Tablet, 2 EACH GT QHS , TAB 07/20/17 Insulin Detemir (Levemir Flextouch) 100 Unit/1 Ml Insuln.pen, 15 UNIT SQ ACBREAKFAST, EA 07/20/17 Omeprazole (OMEPRAZOLE) 20 Mg Tablet.dr, 20 MG GT DAILY, TAB 03/24/17 Clotrimazole* (LOTRIMIN*) 15 Gm Cream..g., 1 APPLIC TOPIC TWICE A DAY for gt site, GM 08/23/16 Ipratropium/Albuterol Sulfate (DuoNeb 0.5-3(2.5)mg/3ml) 3 Ml Ampul.neb, 3 ML HHN Q4HR PRN for Shortness of Breath, EA 11/21/15 Potassium Chloride (Potassium Chloride) 20 Meq/15 Ml Liqd, 40 MEQ GT BID, ML 04/09/15 Metoprolol Tartrate* (METOPROLOL TARTRATE*) 25 Mg Tablet, 25 MG GT EVERY 12 HOURS, TAB 04/09/15 Enrrique Escudero MD Mar 16, 2020 19:49
[2020-03-16 20:00] VITALS: BP 123/66
--- NOTE | 2020-03-16 22:19 | General Progress Note ---
Assessment/Plan Problem List: (1) JULIO CÉSAR (acute kidney injury) ICD Codes: N17.9 - Acute kidney failure, unspecified SNOMED: 72661037, 6956415 (2) Sepsis ICD Codes: A41.9 - Sepsis, unspecified organism SNOMED: 66465302 (3) Tachycardia ICD Codes: R00.0 - Tachycardia, unspecified SNOMED: 7916134 (4) Diabetes ICD Codes: E11.9 - Type 2 diabetes mellitus without complications SNOMED: 96006871 (5) Schizophrenia ICD Codes: F20.9 - Schizophrenia, unspecified SNOMED: 61837405 (6) Seizure disorder ICD Codes: G40.909 - Epilepsy, unspecified, not intractable,without status epilepticus SNOMED: 420725674 (7) UTI (urinary tract infection) ICD Codes: N39.0 - Urinary tract infection, site not specified SNOMED: 46677232 (8) Hypertension ICD Codes: I10 - Hypertension SNOMED: 97591950 (9) ARF (acute renal failure) ICD Codes: N17.9 - Acute kidney failure, unspecified SNOMED: 68297770 (10) Diabetes mellitus out of control ICD Codes: E11.65 - Diabetes mellitus out of control SNOMED: 674529545 (11) Feeding by G-tube ICD Codes: Z93.1 - Feeding by G-tube SNOMED: 861878665 (12) Decubitus ulcer ICD Codes: L89.90 - Pressure ulcer of unspecified site, unspecified stage SNOMED: 296979193 Status: progressing Assessment/Plan: htn elevated na and low k.consulted dr antoine for that sugar improving dm reviewed chat and labs dysphagia htn azotemia check bp peg dm check sugar afebrile malnutrition Subjective ROS Limited/Unobtainable: Yes Allergies: Coded Allergies: NO KNOWN DRUG ALLERGIES (Unverified Allergy, Unknown, 07/16/19) Objective Last 24 Hour Vital Signs Date Time Temp Pulse Resp B/P (MAP) Pulse Ox O2 Delivery O2 Flow Rate FiO2 03/16/20 21:00 Room Air 03/16/20 20:50 87 125/66 03/16/20 20:00 97.7 97 16 123/66 (85) 97 03/16/20 19:51 99 18 98 Room Air 21 03/16/20 16:00 98.1 99 16 118/74 (89) 99 03/16/20 12:00 96.4 98 16 112/75 (87) 99 03/16/20 09:32 95 110/71 03/16/20 09:00 Room Air 03/16/20 08:00 97.3 95 15 110/71 (84) 97 03/16/20 04:00 97.6 92 19 105/72 (83) 96 03/16/20 00:00 97.0 93 16 97/66 (76) 96 Intake and Output 03/15/20 03/16/20 19:00 07:00 Intake Total 125 ml 2180 ml Output Total 700 ml Balance -575 ml 2180 ml Intake Free Water 500 ml IV Total 75 ml 1030 ml Tube Feeding 50 ml 650 ml Output Urine Total 700 ml Height (Feet): 5 Height (Inches): 7.00 Weight (Pounds): 178 Amy Martínez MD Mar 16, 2020 22:19
[2020-03-17] VITALS: BP 119/71
[2020-03-17 04:00] VITALS: BP 132/62
[2020-03-17] MEDS: Meropenem 1 GM in NS 55 ML IVPB SCH ×3 (05:29→21:19)
[2020-03-17] MEDS: NovoLOG Insulin Flexpen SUBQ SCH ×3 (05:38→19:03)
--- NOTE | 2020-03-17 06:52 | Infectious Diseases Prog Note ---
Assessment/Plan 64yo with: Afebrile Tachycardia Hyperglycemia R/o sepsis Leukocytosis to 13, improving Pyuria, UTI 03/12 BCx NTD 03/12 CXR w/ low long volumes and bronchovascular crowding 03/13 UA +WBC, UCx +ESBL E.coli (R-levoflox, R-bactrim) MRSA nares neg COVID rapid Ag neg 03/12 H/o COVID 3 months ago CKD, Cr 2.0 ?Heart failure vs vol OL, BNP 791 PMH/PSH: CVA, seizure disorder, cerebral palsy, COPD, hypertension, dysphagia, feeding by G-tube, schizophrenia Plan: Cont meropenem #3/5 (abx day #5/7) for ESBL E.coli UTI 03/15 SP vanco #1, Zosyn #2 Trend WBC Trend Cr Monitor CBC/BMP Monitor resp status Monitor hemodynamics D/w RN Thank you for this consult. [facility] will continue to follow. Subjective Allergies: Coded Allergies: NO KNOWN DRUG ALLERGIES (Unverified Allergy, Unknown, 07/16/19) AF On RA, calm, NAD WBC 10 Na 151, Cr 1.5, up slightly Objective Last 24 Hour Vital Signs Date Time Temp Pulse Resp B/P (MAP) Pulse Ox O2 Delivery O2 Flow Rate FiO2 03/17/20 04:00 98.0 95 16 132/62 (85) 97 03/17/20 00:00 97.2 92 16 119/71 (87) 95 03/16/20 21:00 Room Air 03/16/20 20:50 87 125/66 03/16/20 20:00 97.7 97 16 123/66 (85) 97 03/16/20 19:51 99 18 98 Room Air 21 03/16/20 16:00 98.1 99 16 118/74 (89) 99 03/16/20 12:00 96.4 98 16 112/75 (87) 99 03/16/20 09:32 95 110/71 03/16/20 09:00 Room Air 03/16/20 08:00 97.3 95 15 110/71 (84) 97 Height (Feet): 5 Height (Inches): 7.00 Weight (Pounds): 178 Gen: Older man, laying in bed, NAD CV: RRR Pulm: CTAB anteriorly Abd: Soft, NTND, +PEG Ext: No c/c/e Neuro: Non-verbal Laboratory Tests Test 03/17/20 05:05 White Blood Count Pending Red Blood Count Pending Hemoglobin Pending Hematocrit Pending Mean Corpuscular Volume Pending Mean Corpuscular Hemoglobin Pending Mean Corpuscular Hemoglobin Concent Pending Red Cell Distribution Width Pending Platelet Count Pending Mean Platelet Volume Pending Neutrophils (%) (Auto) Pending Lymphocytes (%) (Auto) Pending Monocytes (%) (Auto) Pending Eosinophils (%) (Auto) Pending Basophils (%) (Auto) Pending Sodium Level Pending Potassium Level Pending Chloride Level Pending Carbon Dioxide Level Pending Blood Urea Nitrogen Pending Creatinine Pending Estimat Glomerular Filtration Rate Pending Glucose Level Pending Calcium Level Pending Phosphorus Level Pending Magnesium Level Pending Total Bilirubin Pending Aspartate Amino Transf (AST/SGOT) Pending Alanine Aminotransferase (ALT/SGPT) Pending Alkaline Phosphatase Pending Total Protein Pending Albumin Pending Globulin Pending Current Medications Medications (Trade) Dose Ordered Sig/Monalisa Route PRN Reason Start Time Stop Time Status Last Admin Dose Admin Acetaminophen (Tylenol) 325 mg Q4H PRN GT Mild Pain(Pain Scale1-3)/fever 03/16/20 09:00 04/12/20 08:59 Albuterol/ Ipratropium (Albuterol/ Ipratropium) 3 ml QIDRT PRN HHN Shortness of Breath 03/16/20 09:00 03/18/20 08:59 Ascorbic Acid (Vitamin C) 500 mg TWICE A DAY GT 03/16/20 09:00 04/12/20 17:59 03/16/20 17:41 Dextrose 1,000 ml @ 75 mls/hr [id number] IV 03/16/20 10:00 04/15/20 09:59 03/16/20 23:24 Dextrose (Dextrose 50%) 25 ml Q30M PRN IV Hypoglycemia 03/16/20 09:00 06/11/20 08:59 Dextrose (Dextrose 50%) 50 ml Q30M PRN IV Hypoglycemia 03/16/20 09:00 06/11/20 08:59 Docusate Sodium (Colace) 100 mg TWICE A DAY GT 03/16/20 09:00 04/12/20 17:59 03/16/20 17:42 Finasteride (Proscar) 5 mg DAILY ORAL 03/16/20 13:00 06/12/20 12:59 03/16/20 12:54 Heparin Sodium (Porcine) (Heparin 5000 units/ml) 5,000 units EVERY 12 HOURS SUBQ 03/16/20 09:00 04/27/20 20:59 03/16/20 20:52 Insulin Aspart (NovoLOG) Q6HR SUBQ 03/16/20 12:00 06/11/20 05:59 03/17/20 05:38 Lansoprazole (Prevacid) 30 mg Q12HR GT 03/16/20 09:30 04/13/20 09:29 03/16/20 20:50 Levetiracetam (Keppra) 1,000 mg Q12HR GT 03/16/20 09:00 04/27/20 12:59 03/16/20 20:53 Lorazepam (Ativan) 1 mg Q6H PRN GT For Anxiety 03/16/20 09:00 03/20/20 08:59 03/16/20 09:32 Meropenem 1 gm/ Sodium Chloride 55 ml @ 110 mls/hr Q8HR IVPB 03/16/20 14:00 03/20/20 13:59 03/17/20 05:29 Metoprolol Tartrate (Lopressor) 25 mg Q12HR GT 03/16/20 09:00 06/11/20 20:59 03/16/20 20:50 Ondansetron HCl (Zofran) 4 mg Q6H PRN GT Nausea & Vomiting 03/16/20 09:00 04/12/20 08:59 Risperidone (RisperDAL) 1 mg QHS GT 03/16/20 21:00 04/27/20 20:59 03/16/20 20:50 Joy Vang M.D. Mar 17, 2020 06:52
[2020-03-17 07:13] LABS: ALANINE AMINOTRANSFERASE 14 U/L (12-78); ALBUMIN 2.2 G/DL (3.4-5.0); ALBUMIN/GLOBULIN RATIO 0.4 (1.0-2.7); ALKALINE PHOSPHATASE 74 U/L (46-116); ANION GAP 9 mmol/L (5-15); ASPARTATE AMINO TRANSFERASE 17 U/L (15-37); BILIRUBIN,TOTAL 0.3 MG/DL (0.2-1.0); BLOOD UREA NITROGEN 27 mg/dL (7-18); CALCIUM 8.6 MG/DL (8.5-10.1); CARBON DIOXIDE 25 MMOL/L (21-32); CHLORIDE 117 MMOL/L (98-107); CREATININE 1.5 MG/DL (0.55-1.30); PHOSPHORUS 3.4 MG/DL (2.5-4.9); POTASSIUM 3.3 MMOL/L (3.5-5.1); SODIUM 151 MMOL/L (136-145)
[2020-03-17 07:24] LABS: BASOPHILS % (AUTO) 0.4 % (0.0-2.0); EOSINOPHILS % (AUTO) 3.1 % (0.0-3.0); HEMATOCRIT 28.7 % (42.0-52.0); LYMPHOCYTES % (AUTO) 15.8 % (20.0-45.0); MEAN CORPUSCULAR VOLUME 66 FL (80-99); MONOCYTES % (AUTO) 3.9 % (1.0-10.0); NEUTROPHILS % (AUTO) 76.8 % (45.0-75.0); PLATELET COUNT 305 K/UL (150-450); RED BLOOD COUNT 4.31 M/UL (4.70-6.10); RED CELL DISTRIBUTION WIDTH 13.7 % (11.6-14.8)
[2020-03-17 08:00] VITALS: BP 130/65
--- NOTE | 2020-03-17 09:03 | Nephrology Progress Note ---
Assessment/Plan Problem List: (1) JULIO CÉSAR (acute kidney injury) (2) Dehydration (3) UTI (urinary tract infection) (4) Severe sepsis (5) Feeding by G-tube (6) Diabetes mellitus out of control (7) Seizure disorder Assessment Acute renal failure, patient presents with serum creatinine of 2 Dehydration, electrolyte imbalances Sepsis, UTI Diabetes mellitus [id number] Hypertension COPD, aspiration risk History of CVA, seizure disorder Cerebral palsy Protein calorie malnutrition Suspected COVID-19 virus infection Schizophrenia BPH G-tube feeding History of Parkinson's disease Plan March 17: Labs reviewed. Serum sodium declining. Potassium supplement given. Continue per consultants. Serum creatinine is higher to 1.5 today. Will continue to monitor renal parameters March 16: No labs drawn today. Patient on D5W IV fluid. Will check labs tomorrow. Continue per consultants. March 15: Serum creatinine to baseline. Labs reviewed. Sodium remains elevated and potassium remains low. Continue half-normal saline hypotonic IV fluid hydration with IV potassium chloride. Per orders. Previous suggestions: Hydrate, free water via GT for hypernatremia Potassium supplement Adjust blood pressure medication as the patient is hypotensive Albumin bolus Anemia work-up Monitor renal parameters Avoid nephrotoxic's Per orders Subjective ROS Limited/Unobtainable: No Constitutional: Reports: malaise, weakness Objective Objective Last 24 Hour Vital Signs Date Time Temp Pulse Resp B/P (MAP) Pulse Ox O2 Delivery O2 Flow Rate FiO2 03/17/20 08:00 98.2 90 17 130/65 (86) 98 03/17/20 07:37 97 18 97 Room Air 21 03/17/20 04:00 98.0 95 16 132/62 (85) 97 03/17/20 00:00 97.2 92 16 119/71 (87) 95 03/16/20 21:00 Room Air 03/16/20 20:50 87 125/66 03/16/20 20:00 97.7 97 16 123/66 (85) 97 03/16/20 19:51 99 18 98 Room Air 21 03/16/20 16:00 98.1 99 16 118/74 (89) 99 03/16/20 12:00 96.4 98 16 112/75 (87) 99 03/16/20 09:32 95 110/71 Intake and Output 03/16/20 03/17/20 19:00 07:00 Intake Total 1815 ml 1795 ml Output Total 750 ml 650 ml Balance 1065 ml 1145 ml Intake Free Water 560 ml 250 ml IV Total 655 ml 1045 ml Tube Feeding 600 ml 500 ml Output Urine Total 750 ml 650 ml # Bowel Movements 2 Laboratory Tests 03/17/20 05:05: White Blood Count 10.0, Red Blood Count 4.31L, Hemoglobin 9.0L, Hematocrit 28.7L , Mean Corpuscular Volume 66L, Mean Corpuscular Hemoglobin 20.9L, Mean Corpuscular Hemoglobin Concent 31.5L, Red Cell Distribution Width 13.7, Platelet Count 305, Mean Platelet Volume 8.8, Neutrophils (%) (Auto) 76.8H, Lymphocytes (%) (Auto) 15.8L, Monocytes (%) (Auto) 3.9, Eosinophils (%) (Auto) 3.1H, Basophils (%) (Auto) 0.4, Sodium Level 151H, Potassium Level 3.3L, Chloride Level 117H, Carbon Dioxide Level 25, Anion Gap 9, Blood Urea Nitrogen 27H, Creatinine 1.5H, Estimat Glomerular Filtration Rate 47.4, Glucose Level 202H, Calcium Level 8.6, Phosphorus Level 3.4, Magnesium Level 2.1, Total Bilirubin 0.3, Aspartate Amino Transf (AST/SGOT) 17, Alanine Aminotransferase ( ALT/SGPT) 14, Alkaline Phosphatase 74, Total Protein 7.6, Albumin 2.2L, Globulin 5.4, Albumin/Globulin Ratio 0.4L Height (Feet): 5 Height (Inches): 7.00 Weight (Pounds): 178 General Appearance: no apparent distress, lethargic Cardiovascular: tachycardia - Rate in 90s Respiratory/Chest: decreased breath sounds Abdomen: soft Xander Lake MD Mar 17, 2020 09:03
[2020-03-17] MEDS: Docusate 100mg/10ml Liq GT SCH ×2 (09:56→18:21)
[2020-03-17] MEDS: levETIRAcetam 500mg/5ml Liquid GT SCH ×2 (09:57→21:18)
[2020-03-17] MEDS: Ascorbic Acid 500mg tab GT SCH ×2 (09:57→18:21)
[2020-03-17] MEDS: Heparin 5000 units/ml inj SUBQ SCH ×2 (10:18→21:41)
--- NOTE | 2020-03-17 10:46 | Initial Psychiatric Evaluation ---
Psychiatry Consultation Psychiatry Consultation Chief Complaint: Abnormal Labs History of Present Illness: Gee JONES is a 65-year-old male patient he has anemia diabetes chronic renal insufficiency he is got altered also has confusion and also psychosis in the setting of frontal motorization as well as attending his request daily psychiatry consultation MSE:64-year-old male. Facility reports that affect paratrabecular for mood depression is moderately psychoeducation medication regimen orientation x3 speech is low volume start the process organized logical judgment was poor Allergies: Coded Allergies: NO KNOWN DRUG ALLERGIES (Unverified Allergy, Unknown, 07/16/19) Medication History Scheduled Amino Acids/Protein Hydrolys (Pro-Stat Liquid), 30 ML GT DAILY, (Reported) Ascorbic Acid* (Vitamin C*), 250 MG GT DAILY, (Reported) Docusate Sodium (Docusate Sodium), 100 MG GT TWICE A DAY, (Reported) Famotidine (Pepcid), 20 MG ORAL BEDTIME, (Reported) Finasteride* (Proscar*), 5 MG GT DAILY, (Reported) Lacosamide (Vimpat), 100 MG GT BID, (Reported) Levetiracetam (Keppra), 20 ML GT BID, (Reported) Magnesium Hydroxide (Milk of Magnesia), 30 ML GT BEDTIME, (Reported) Multivitamin Liquid* (Multi-Delyn*), 5 ML GT DAILY, (Reported) Risperidone* (Risperdal*), 1 MG GT BID, (Reported) Scheduled PRN Acetaminophen* (Acetaminophen 325MG Tablet*), 650 MG GT Q4H PRN for Fever/ Headache/Mild Pain, (Reported) Na Phos,M-B/Na Phos,Di-Ba* (Fleet Enema*), 133 ML RECTAL DAILY PRN for Constipation, (Reported) Nitroglycerin (Nitroglycerin), 0.4 MG SL q5mns x three doses PRN for chest pain, (Reported) Ondansetron* (Zofran*), 4 MG GT Q6H PRN for Nausea & Vomiting, (Reported) Polyethylene Glycol 3350* (Miralax*), 17 GM GT DAILY PRN for Constipation, ( Reported) Miscellaneous Medications [Santyl], 250 GM TOPIC, (Reported) Discontinued Medications Bisacodyl (Dulcolax), 10 MG RC DAILY PRN for Constipation, (Reported) Discontinued Reason: Pt stopped taking med Clotrimazole* (Lotrimin*), 1 APPLIC TOPIC TWICE A DAY, (Reported) Discontinued Reason: Pt stopped taking med Heparin Sod (Porcine) (Heparin Sodium*), 5,000 UNITS SUBQ EVERY 12 HOURS, ( Reported) Discontinued Reason: Pt stopped taking med Insulin Aspart (Novolog Flexpen), (Reported) Discontinued Reason: Pt stopped taking med Insulin Detemir (Levemir Flextouch), 15 UNIT SQ ACBREAKFAST, (Reported) Discontinued Reason: Pt stopped taking med Ipratropium/Albuterol Sulfate (DuoNeb 0.5-3(2.5)mg/3ml), 3 ML HHN Q4HR PRN for Shortness of Breath, (Reported) Discontinued Reason: Pt stopped taking med Levetiracetam (Keppra), 1,000 MG GT TID, (Reported) Discontinued Reason: Prescription changed Lorazepam* (Ativan*), 1 MG ORAL EVERY 6 HOURS PRN for Agitation, (Reported) Discontinued Reason: Pt stopped taking med Metoprolol Tartrate* (Metoprolol Tartrate*), 25 MG GT EVERY 12 HOURS, (Reported) Discontinued Reason: Pt stopped taking med Omeprazole (Omeprazole), 20 MG GT DAILY, (Reported) Discontinued Reason: Pt stopped taking med Potassium Chloride (Potassium Chloride), 40 MEQ GT BID, (Reported) Discontinued Reason: Pt stopped taking med Quercetin Dihydrate (Quercetin Dihydrate), 500 MG GT BEFORE BREAKFAST, (Reported ) Discontinued Reason: Pt stopped taking med Sennosides/Docusate Sodium (Senna Laxative Tablet), 2 EACH GT QHS, (Reported) Discontinued Reason: Pt stopped taking med Temazepam* (Restoril*), 15 MG ORAL BEDTIME, (Reported) Discontinued Reason: Pt stopped taking med Zinc Sulfate (Zinc Sulfate*), 220 MG ORAL DAILY, (Reported) Discontinued Reason: Pt stopped taking med Objective Data Height (Feet): 5 Height (Inches): 7.00 Weight (Pounds): 178 Assessment/Plan Assessment/Plan: Plan for this patient is to treatment Risperdal 1 mg nightly Ativan 1 every 6 hours as needed anxiety station 20 minutes of cognitive behavioral therapy well mother positive mundane thoughts (negative thus more positive thus reduced breath anxiety mood lability, chart review discussed with staff Enrrique Escudero MD Mar 17, 2020 10:46
--- NOTE | 2020-03-17 11:32 | Pulmonology Progress Note ---
Subjective ROS Limited/Unobtainable: No Constitutional: Reports: no symptoms HEENT: Repors: no symptoms Respiratory: Reports: no symptoms Cardiovascular: Reports: no symptoms Allergies: Coded Allergies: NO KNOWN DRUG ALLERGIES (Unverified Allergy, Unknown, 07/16/19) Objective Last 24 Hour Vital Signs Date Time Temp Pulse Resp B/P (MAP) Pulse Ox O2 Delivery O2 Flow Rate FiO2 03/17/20 09:56 90 130/65 03/17/20 08:00 98.2 90 17 130/65 (86) 98 03/17/20 07:37 97 18 97 Room Air 21 03/17/20 04:00 98.0 95 16 132/62 (85) 97 03/17/20 00:00 97.2 92 16 119/71 (87) 95 03/16/20 21:00 Room Air 03/16/20 20:50 87 125/66 03/16/20 20:00 97.7 97 16 123/66 (85) 97 03/16/20 19:51 99 18 98 Room Air 21 03/16/20 16:00 98.1 99 16 118/74 (89) 99 03/16/20 12:00 96.4 98 16 112/75 (87) 99 Intake and Output 03/16/20 03/17/20 19:00 07:00 Intake Total 1815 ml 1795 ml Output Total 750 ml 650 ml Balance 1065 ml 1145 ml Intake Free Water 560 ml 250 ml IV Total 655 ml 1045 ml Tube Feeding 600 ml 500 ml Output Urine Total 750 ml 650 ml # Bowel Movements 2 General Appearance: WD/WN HEENT: normocephalic, atraumatic Respiratory: chest wall non-tender, lungs clear Cardiovascular: normal peripheral pulses, normal rate Abdomen: normal bowel sounds, soft, non tender, hyperactive bowel sounds Extremities: no cyanosis Neurologic: container finisher II-XII grossly normal Lymphatic: no neck adenopathy Laboratory Tests 03/17/20 05:05: White Blood Count 10.0, Red Blood Count 4.31L, Hemoglobin 9.0L, Hematocrit 28.7L , Mean Corpuscular Volume 66L, Mean Corpuscular Hemoglobin 20.9L, Mean Corpuscular Hemoglobin Concent 31.5L, Red Cell Distribution Width 13.7, Platelet Count 305, Mean Platelet Volume 8.8, Neutrophils (%) (Auto) 76.8H, Lymphocytes (%) (Auto) 15.8L, Monocytes (%) (Auto) 3.9, Eosinophils (%) (Auto) 3.1H, Basophils (%) (Auto) 0.4, Sodium Level 151H, Potassium Level 3.3L, Chloride Level 117H, Carbon Dioxide Level 25, Anion Gap 9, Blood Urea Nitrogen 27H, Creatinine 1.5H, Estimat Glomerular Filtration Rate 47.4, Glucose Level 202H, Calcium Level 8.6, Phosphorus Level 3.4, Magnesium Level 2.1, Total Bilirubin 0.3, Aspartate Amino Transf (AST/SGOT) 17, Alanine Aminotransferase ( ALT/SGPT) 14, Alkaline Phosphatase 74, Total Protein 7.6, Albumin 2.2L, Globulin 5.4, Albumin/Globulin Ratio 0.4L Current Medications Medications (Trade) Dose Ordered Sig/Monalisa Route PRN Reason Start Time Stop Time Status Last Admin Dose Admin Acetaminophen (Tylenol) 325 mg Q4H PRN GT Mild Pain(Pain Scale1-3)/fever 03/16/20 09:00 04/12/20 08:59 Albuterol/ Ipratropium (Albuterol/ Ipratropium) 3 ml QIDRT PRN HHN Shortness of Breath 03/16/20 09:00 03/18/20 08:59 Ascorbic Acid (Vitamin C) 500 mg TWICE A DAY GT 03/16/20 09:00 04/12/20 17:59 03/17/20 09:57 Dextrose 1,000 ml @ 75 mls/hr [id number] IV 03/16/20 10:00 04/15/20 09:59 03/16/20 23:24 Dextrose (Dextrose 50%) 25 ml Q30M PRN IV Hypoglycemia 03/16/20 09:00 06/11/20 08:59 Dextrose (Dextrose 50%) 50 ml Q30M PRN IV Hypoglycemia 03/16/20 09:00 06/11/20 08:59 Docusate Sodium (Colace) 100 mg TWICE A DAY GT 03/16/20 09:00 04/12/20 17:59 03/17/20 09:56 Finasteride (Proscar) 5 mg DAILY ORAL 03/16/20 13:00 06/12/20 12:59 03/17/20 09:57 Heparin Sodium (Porcine) (Heparin 5000 units/ml) 5,000 units EVERY 12 HOURS SUBQ 03/16/20 09:00 04/27/20 20:59 03/17/20 10:18 Insulin Aspart (NovoLOG) Q6HR SUBQ 03/16/20 12:00 06/11/20 05:59 03/17/20 05:38 Lansoprazole (Prevacid) 30 mg Q12HR GT 03/16/20 09:30 04/13/20 09:29 03/17/20 09:56 Levetiracetam (Keppra) 1,000 mg Q12HR GT 03/16/20 09:00 04/27/20 12:59 03/17/20 09:57 Lorazepam (Ativan) 1 mg Q6H PRN GT For Anxiety 03/16/20 09:00 03/20/20 08:59 03/16/20 09:32 Meropenem 1 gm/ Sodium Chloride 55 ml @ 110 mls/hr Q8HR IVPB 03/16/20 14:00 03/20/20 13:59 03/17/20 05:29 Metoprolol Tartrate (Lopressor) 25 mg Q12HR GT 03/16/20 09:00 06/11/20 20:59 03/17/20 09:56 Ondansetron HCl (Zofran) 4 mg Q6H PRN GT Nausea & Vomiting 03/16/20 09:00 04/12/20 08:59 Potassium Chloride (K-Dur) 20 meq TWICE A DAY GT 03/17/20 09:00 06/15/20 08:59 03/17/20 09:56 Risperidone (RisperDAL) 1 mg QHS GT 03/16/20 21:00 04/27/20 20:59 03/16/20 20:50 Assessment/Plan Problems: (1) Sepsis (2) JULIO CÉSAR (acute kidney injury) (3) Suspected COVID-19 virus infection (4) COPD (chronic obstructive pulmonary disease) (5) Seizure disorder (6) Schizophrenia (7) BPH (benign prostatic hyperplasia) (8) Parkinson disease (9) Feeding by G-tube (10) Hypertension Assessment/Plan looks good doing better, covid negative times one Urine has >100K GNB continue iv abx check sensitivity of GNB iv fluids check electrolytes dvt prophylaxis Lucie Gracia MD Mar 17, 2020 11:32
[2020-03-17 12:00] VITALS: BP 123/75
[2020-03-17 16:00] VITALS: BP 118/69
--- NOTE | 2020-03-17 16:25 | Surgery Progress Note ---
Surgery Progress Note Subjective Additional Comments leukocytosis improved labs noted exam stable comfortable no n/v/f/c Objective Last 24 Hour Vital Signs Date Time Temp Pulse Resp B/P (MAP) Pulse Ox O2 Delivery O2 Flow Rate FiO2 03/17/20 12:00 98.4 86 18 123/75 (91) 99 03/17/20 09:56 90 130/65 03/17/20 09:00 Room Air 03/17/20 08:00 98.2 90 17 130/65 (86) 98 03/17/20 07:37 97 18 97 Room Air 21 03/17/20 04:00 98.0 95 16 132/62 (85) 97 03/17/20 00:00 97.2 92 16 119/71 (87) 95 03/16/20 21:00 Room Air 03/16/20 20:50 87 125/66 03/16/20 20:00 97.7 97 16 123/66 (85) 97 03/16/20 19:51 99 18 98 Room Air 21 I&O Intake and Output 03/16/20 03/17/20 19:00 07:00 Intake Total 1815 ml 1795 ml Output Total 750 ml 650 ml Balance 1065 ml 1145 ml Intake Free Water 560 ml 250 ml IV Total 655 ml 1045 ml Tube Feeding 600 ml 500 ml Output Urine Total 750 ml 650 ml # Bowel Movements 2 Dressing: other Wound: other Drains: other Cardiovascular: RSR Respiratory: decreased breath sounds Abdomen: soft, non-tender, present bowel sounds Extremities: no cyanosis Laboratory Tests Test 03/17/20 05:05 White Blood Count 10.0 K/UL (4.8-10.8) Red Blood Count 4.31 M/UL (4.70-6.10) L Hemoglobin 9.0 G/DL (14.2-18.0) L Hematocrit 28.7 % (42.0-52.0) L Mean Corpuscular Volume 66 FL (80-99) L Mean Corpuscular Hemoglobin 20.9 PG (27.0-31.0) L Mean Corpuscular Hemoglobin Concent 31.5 G/DL (32.0-36.0) L Red Cell Distribution Width 13.7 % (11.6-14.8) Platelet Count 305 K/UL (150-450) Mean Platelet Volume 8.8 FL (6.5-10.1) Neutrophils (%) (Auto) 76.8 % (45.0-75.0) H Lymphocytes (%) (Auto) 15.8 % (20.0-45.0) L Monocytes (%) (Auto) 3.9 % (1.0-10.0) Eosinophils (%) (Auto) 3.1 % (0.0-3.0) H Basophils (%) (Auto) 0.4 % (0.0-2.0) Sodium Level 151 MMOL/L (136-145) H Potassium Level 3.3 MMOL/L (3.5-5.1) L Chloride Level 117 MMOL/L (98-107) H Carbon Dioxide Level 25 MMOL/L (21-32) Anion Gap 9 mmol/L (5-15) Blood Urea Nitrogen 27 mg/dL (7-18) H Creatinine 1.5 MG/DL (0.55-1.30) H Estimat Glomerular Filtration Rate 47.4 mL/min (>60) Glucose Level 202 MG/DL (74-106) H Calcium Level 8.6 MG/DL (8.5-10.1) Phosphorus Level 3.4 MG/DL (2.5-4.9) Magnesium Level 2.1 MG/DL (1.8-2.4) Total Bilirubin 0.3 MG/DL (0.2-1.0) Aspartate Amino Transf (AST/SGOT) 17 U/L (15-37) Alanine Aminotransferase (ALT/SGPT) 14 U/L (12-78) Alkaline Phosphatase 74 U/L (46-116) Total Protein 7.6 G/DL (6.4-8.2) Albumin 2.2 G/DL (3.4-5.0) L Globulin 5.4 g/dL Albumin/Globulin Ratio 0.4 (1.0-2.7) L Plan Problems: (1) Sepsis (2) JULIO CÉSAR (acute kidney injury) (3) Tachycardia (4) Diabetes (5) Schizophrenia (6) Seizure disorder (7) Hyperosmolar coma (8) OBS (organic brain syndrome) (9) UTI (urinary tract infection) (10) Adrenal insufficiency (11) Hypertension (12) ARF (acute renal failure) (13) Severe sepsis (14) Diabetes mellitus out of control (15) Feeding by G-tube Assessment & Plan: DAILY ESTIMATED NEEDS: Needs based on DM, 69.5kg 25-30 kcals/kg 5270-8541 total kcals 1.25-1.5 g protein/kg 87-104 g total protein 25-30 mL/kg 2662-7207 total fluid mLs NUTRITION DIAGNOSIS: * Swallowing difficulty R/T dysphagia, hx CVA as evidenced by pt h/o PEG, now on GT feeds without oral grat. CURRENT TF:Glucerna 1.2 @50ml/hr x 24 hrs ENTERAL NUTRITION RECOMMENDATIONS: Glucerna 1.2 @65ml/hr x24 hrs to provide 1560ml, 1872 kcal, 94g pro, 1256ml free H20 - Rec to increase goal rate and run time to better meet est needs - Flush per MD. HOB over 30 degrees ADDITIONAL RECOMMENDATIONS: 1) Calibrated bed scale for accurate wts 2) TF recs as above, pt would benefit from increased insulin coverage Continue to monitor BG, lytes (K low 3.3) 3) Increase water flushes (elev na and BUN) -> rec increased water flushes instead of D5 IVF for BG control. 4) Wound Care: continue Vit C, add Rashid BID via GT (mix w/ 4oz H2O) (16) C. 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 An Area of non-Blanchable erythema without induration noted to R trochanter.(L) 5.5cm x (W)4.4cm. Scattered areas of hyperpigmentation with hypertrophic scar noted to sacrum and buttocks. Darker skin tone without erythema noted to scrotum and perineum. Contractures bilat lower extremities. Non-Blanchable erythema lateral L Tibia(L) 11.5cm x (W)1cm. Two small partial thickness wounds noted to web space of L 2nd metatarsal. Full Thickness Pressure injury R Heel (L)4cm x (W)5.2cm x (D)0.1cm. Base of wound is 40% necrotic ,60% pink with scattered Biofilm.No odor noted. Small amt serous exudate noted. Non-blanchable erythema periwound with dry loose skin. Unstageable Pressure injury Dorsal R 2nd Metatarsal.1.2cm x (W)1.5cm. Base of wound is 100% slough with erythematous borders and periwound. No odor or exudate noted. Tx.Plan: Apply Moisture Barrier Paste to Sacrum. Cover with Optifoam drsg. Change every 3 days and prn. Apply Moisture Barrier Paste to Scrotum and Perineum with each incontinence care. Apply Cavilon Skin Barrier to Bilat Hips/Trochanteric areas. Cover each site with Optifoam drsg. Change every 7 days and prn. Apply Betadine to R and L Foot wounds. Cover with Optifoam drsgs every 3 days and prn. Reposition at least every 2hours or as tolerated. Place Pillow between knees. Off-load heel with Pillow. APM/EDELMIRA Mattress. (19) Suspected COVID-19 virus infection (20) COPD (chronic obstructive pulmonary disease) (21) Fever (22) Parkinson disease (23) BPH (benign prostatic hyperplasia) Ziyad Bolaños Mar 17, 2020 16:25
--- NOTE | 2020-03-17 16:26 | Cardiac Electrophysiology PN ---
Assessment/Plan Assessment/Plan 1. Sinus tachycardia, due to sepsis, anemia, respiratory failure and lactic acidosis. Ruled out for TX. Nl EF 65%. Off tele 2. Hypertension. Stable on metoprolol 25 mg b.i.d. 3. Lactic acidosis and sepsis, on IV antibiotic. 4. Dysphagia, status post G-tube placement. 5. Uncontrolled diabetes . 6. History of COVID-19 pneumonia, currently off isolation. DW RN Subjective Subjective Confused in NAD. GT feeding ongoing in NAD off restraints Objective Last 24 Hour Vital Signs Date Time Temp Pulse Resp B/P (MAP) Pulse Ox O2 Delivery O2 Flow Rate FiO2 03/17/20 12:00 98.4 86 18 123/75 (91) 99 03/17/20 09:56 90 130/65 03/17/20 09:00 Room Air 03/17/20 08:00 98.2 90 17 130/65 (86) 98 03/17/20 07:37 97 18 97 Room Air 21 03/17/20 04:00 98.0 95 16 132/62 (85) 97 03/17/20 00:00 97.2 92 16 119/71 (87) 95 03/16/20 21:00 Room Air 03/16/20 20:50 87 125/66 03/16/20 20:00 97.7 97 16 123/66 (85) 97 03/16/20 19:51 99 18 98 Room Air 21 Intake and Output 03/16/20 03/17/20 19:00 07:00 Intake Total 1815 ml 1795 ml Output Total 750 ml 650 ml Balance 1065 ml 1145 ml Intake Free Water 560 ml 250 ml IV Total 655 ml 1045 ml Tube Feeding 600 ml 500 ml Output Urine Total 750 ml 650 ml # Bowel Movements 2 Laboratory Tests Test 03/17/20 05:05 White Blood Count 10.0 K/UL (4.8-10.8) Red Blood Count 4.31 M/UL (4.70-6.10) L Hemoglobin 9.0 G/DL (14.2-18.0) L Hematocrit 28.7 % (42.0-52.0) L Mean Corpuscular Volume 66 FL (80-99) L Mean Corpuscular Hemoglobin 20.9 PG (27.0-31.0) L Mean Corpuscular Hemoglobin Concent 31.5 G/DL (32.0-36.0) L Red Cell Distribution Width 13.7 % (11.6-14.8) Platelet Count 305 K/UL (150-450) Mean Platelet Volume 8.8 FL (6.5-10.1) Neutrophils (%) (Auto) 76.8 % (45.0-75.0) H Lymphocytes (%) (Auto) 15.8 % (20.0-45.0) L Monocytes (%) (Auto) 3.9 % (1.0-10.0) Eosinophils (%) (Auto) 3.1 % (0.0-3.0) H Basophils (%) (Auto) 0.4 % (0.0-2.0) Sodium Level 151 MMOL/L (136-145) H Potassium Level 3.3 MMOL/L (3.5-5.1) L Chloride Level 117 MMOL/L (98-107) H Carbon Dioxide Level 25 MMOL/L (21-32) Anion Gap 9 mmol/L (5-15) Blood Urea Nitrogen 27 mg/dL (7-18) H Creatinine 1.5 MG/DL (0.55-1.30) H Estimat Glomerular Filtration Rate 47.4 mL/min (>60) Glucose Level 202 MG/DL (74-106) H Calcium Level 8.6 MG/DL (8.5-10.1) Phosphorus Level 3.4 MG/DL (2.5-4.9) Magnesium Level 2.1 MG/DL (1.8-2.4) Total Bilirubin 0.3 MG/DL (0.2-1.0) Aspartate Amino Transf (AST/SGOT) 17 U/L (15-37) Alanine Aminotransferase (ALT/SGPT) 14 U/L (12-78) Alkaline Phosphatase 74 U/L (46-116) Total Protein 7.6 G/DL (6.4-8.2) Albumin 2.2 G/DL (3.4-5.0) L Globulin 5.4 g/dL Albumin/Globulin Ratio 0.4 (1.0-2.7) L Objective HEAD AND NECK: Shows no JVD. LUNGS: Decreased breath sounds. CARDIOVASCULAR: Shows regular S1 and S2. Tachycardic. ABDOMEN: Soft. The G-tube is intact. EXTREMITIES: No pitting edema. Sage Araujo MD Mar 17, 2020 16:26
[2020-03-17 20:00] VITALS: BP 113/79
--- NOTE | 2020-03-17 22:36 | General Progress Note ---
Assessment/Plan Problem List: (1) JULIO CÉSAR (acute kidney injury) ICD Codes: N17.9 - Acute kidney failure, unspecified SNOMED: 99953833, 2404165 (2) Sepsis ICD Codes: A41.9 - Sepsis, unspecified organism SNOMED: 97741470 (3) Tachycardia ICD Codes: R00.0 - Tachycardia, unspecified SNOMED: 1890180 (4) Diabetes ICD Codes: E11.9 - Type 2 diabetes mellitus without complications SNOMED: 57490347 (5) Schizophrenia ICD Codes: F20.9 - Schizophrenia, unspecified SNOMED: 91035904 (6) Seizure disorder ICD Codes: G40.909 - Epilepsy, unspecified, not intractable,without status epilepticus SNOMED: 168921492 (7) UTI (urinary tract infection) ICD Codes: N39.0 - Urinary tract infection, site not specified SNOMED: 52049869 (8) Hypertension ICD Codes: I10 - Hypertension SNOMED: 92109012 (9) ARF (acute renal failure) ICD Codes: N17.9 - Acute kidney failure, unspecified SNOMED: 04811393 (10) Diabetes mellitus out of control ICD Codes: E11.65 - Diabetes mellitus out of control SNOMED: 907430232 (11) Feeding by G-tube ICD Codes: Z93.1 - Feeding by G-tube SNOMED: 075905884 (12) Decubitus ulcer ICD Codes: L89.90 - Pressure ulcer of unspecified site, unspecified stage SNOMED: 854153344 Status: progressing Assessment/Plan: htn afebrile reviewed chart and labs no acute change peg dm check sugar is improving Subjective ROS Limited/Unobtainable: Yes Allergies: Coded Allergies: NO KNOWN DRUG ALLERGIES (Unverified Allergy, Unknown, 07/16/19) Objective Last 24 Hour Vital Signs Date Time Temp Pulse Resp B/P (MAP) Pulse Ox O2 Delivery O2 Flow Rate FiO2 03/17/20 21:18 109 113/79 03/17/20 20:00 97.0 109 21 113/79 (90) 98 03/17/20 19:16 92 18 96 Room Air 21 03/17/20 16:00 98.2 80 19 118/69 (85) 100 03/17/20 12:00 98.4 86 18 123/75 (91) 99 03/17/20 09:56 90 130/65 03/17/20 09:00 Room Air 03/17/20 08:00 98.2 90 17 130/65 (86) 98 03/17/20 07:37 97 18 97 Room Air 21 03/17/20 04:00 98.0 95 16 132/62 (85) 97 03/17/20 00:00 97.2 92 16 119/71 (87) 95 Intake and Output 03/16/20 03/17/20 19:00 07:00 Intake Total 1815 ml 1795 ml Output Total 750 ml 650 ml Balance 1065 ml 1145 ml Intake Free Water 560 ml 250 ml IV Total 655 ml 1045 ml Tube Feeding 600 ml 500 ml Output Urine Total 750 ml 650 ml # Bowel Movements 2 Laboratory Tests 03/17/20 05:05: White Blood Count 10.0, Red Blood Count 4.31L, Hemoglobin 9.0L, Hematocrit 28.7L , Mean Corpuscular Volume 66L, Mean Corpuscular Hemoglobin 20.9L, Mean Corpuscular Hemoglobin Concent 31.5L, Red Cell Distribution Width 13.7, Platelet Count 305, Mean Platelet Volume 8.8, Neutrophils (%) (Auto) 76.8H, Lymphocytes (%) (Auto) 15.8L, Monocytes (%) (Auto) 3.9, Eosinophils (%) (Auto) 3.1H, Basophils (%) (Auto) 0.4, Sodium Level 151H, Potassium Level 3.3L, Chloride Level 117H, Carbon Dioxide Level 25, Anion Gap 9, Blood Urea Nitrogen 27H, Creatinine 1.5H, Estimat Glomerular Filtration Rate 47.4, Glucose Level 202H, Calcium Level 8.6, Phosphorus Level 3.4, Magnesium Level 2.1, Total Bilirubin 0.3, Aspartate Amino Transf (AST/SGOT) 17, Alanine Aminotransferase ( ALT/SGPT) 14, Alkaline Phosphatase 74, Total Protein 7.6, Albumin 2.2L, Globulin 5.4, Albumin/Globulin Ratio 0.4L Height (Feet): 5 Height (Inches): 7.00 Weight (Pounds): 179 Amy Martínez MD Mar 17, 2020 22:36
[2020-03-18] VITALS: BP 107/64
[2020-03-18] MEDS: NovoLOG Insulin Flexpen SUBQ SCH ×4 (00:15→18:00)
[2020-03-18 04:00] VITALS: BP 92/63
[2020-03-18] MEDS: Meropenem 1 GM in NS 55 ML IVPB SCH ×3 (05:38→21:41)
--- NOTE | 2020-03-18 07:38 | Infectious Diseases Prog Note ---
Assessment/Plan 64yo with: Afebrile Tachycardia Hyperglycemia R/o sepsis Leukocytosis to 13, improving Pyuria, UTI 03/12 BCx NTD 03/12 CXR w/ low long volumes and bronchovascular crowding 03/13 UA +WBC, UCx +ESBL E.coli (R-levoflox, R-bactrim) MRSA nares neg COVID rapid Ag neg 03/12 H/o COVID 3 months ago CKD, Cr 2.0 ?Heart failure vs vol OL, BNP 791 PMH/PSH: CVA, seizure disorder, cerebral palsy, COPD, hypertension, dysphagia, feeding by G-tube, schizophrenia Plan: Cont meropenem #4/5 (abx day #6/7) for ESBL E.coli UTI 03/15 SP vanco #1, Zosyn #2 Trend WBC Trend Cr Monitor CBC/BMP Monitor resp status Monitor hemodynamics D/w RN Thank you for this consult. [facility] will continue to follow. Subjective Allergies: Coded Allergies: NO KNOWN DRUG ALLERGIES (Unverified Allergy, Unknown, 07/16/19) AF On RA, calm, NAD No labs today Objective Last 24 Hour Vital Signs Date Time Temp Pulse Resp B/P (MAP) Pulse Ox O2 Delivery O2 Flow Rate FiO2 03/18/20 04:00 97.9 107 22 92/63 (73) 97 03/18/20 00:00 97.9 104 22 107/64 (78) 99 03/17/20 21:18 109 113/79 03/17/20 21:00 Room Air 03/17/20 20:00 97.0 109 21 113/79 (90) 98 03/17/20 19:16 92 18 96 Room Air 21 03/17/20 16:00 98.2 80 19 118/69 (85) 100 03/17/20 12:00 98.4 86 18 123/75 (91) 99 03/17/20 09:56 90 130/65 03/17/20 09:00 Room Air 03/17/20 08:00 98.2 90 17 130/65 (86) 98 Height (Feet): 5 Height (Inches): 7.00 Weight (Pounds): 179 Unchanged Gen: Older man, laying in bed, NAD CV: RRR Pulm: CTAB anteriorly Abd: Soft, NTND, +PEG Ext: No c/c/e Neuro: Non-verbal Current Medications Medications (Trade) Dose Ordered Sig/Monalisa Route PRN Reason Start Time Stop Time Status Last Admin Dose Admin Acetaminophen (Tylenol) 325 mg Q4H PRN GT Mild Pain(Pain Scale1-3)/fever 03/16/20 09:00 04/12/20 08:59 Albuterol/ Ipratropium (Albuterol/ Ipratropium) 3 ml QIDRT PRN HHN Shortness of Breath 03/16/20 09:00 03/18/20 08:59 Ascorbic Acid (Vitamin C) 500 mg TWICE A DAY GT 03/16/20 09:00 04/12/20 17:59 03/17/20 18:21 Dextrose 1,000 ml @ 75 mls/hr [id number] IV 03/16/20 10:00 04/15/20 09:59 03/18/20 02:32 Dextrose (Dextrose 50%) 25 ml Q30M PRN IV Hypoglycemia 03/16/20 09:00 06/11/20 08:59 Dextrose (Dextrose 50%) 50 ml Q30M PRN IV Hypoglycemia 03/16/20 09:00 06/11/20 08:59 Docusate Sodium (Colace) 100 mg TWICE A DAY GT 03/16/20 09:00 04/12/20 17:59 03/17/20 18:21 Finasteride (Proscar) 5 mg DAILY ORAL 03/16/20 13:00 06/12/20 12:59 03/17/20 09:57 Heparin Sodium (Porcine) (Heparin 5000 units/ml) 5,000 units EVERY 12 HOURS SUBQ 03/16/20 09:00 04/27/20 20:59 03/17/20 21:41 Insulin Aspart (NovoLOG) Q6HR SUBQ 03/16/20 12:00 06/11/20 05:59 03/18/20 06:03 Lansoprazole (Prevacid) 30 mg Q12HR GT 03/16/20 09:30 04/13/20 09:29 03/17/20 21:18 Levetiracetam (Keppra) 1,000 mg Q12HR GT 03/16/20 09:00 04/27/20 12:59 03/17/20 21:18 Lorazepam (Ativan) 1 mg Q6H PRN GT For Anxiety 03/16/20 09:00 03/20/20 08:59 03/16/20 09:32 Meropenem 1 gm/ Sodium Chloride 55 ml @ 110 mls/hr Q8HR IVPB 03/16/20 14:00 03/20/20 13:59 03/18/20 05:38 Metoprolol Tartrate (Lopressor) 25 mg Q12HR GT 03/16/20 09:00 06/11/20 20:59 03/17/20 21:18 Ondansetron HCl (Zofran) 4 mg Q6H PRN GT Nausea & Vomiting 03/16/20 09:00 04/12/20 08:59 Potassium Chloride (K-Dur) 20 meq TWICE A DAY GT 03/17/20 09:00 06/15/20 08:59 03/17/20 18:21 Risperidone (RisperDAL) 1 mg QHS GT 03/16/20 21:00 04/27/20 20:59 03/17/20 21:18 Joy Vang M.D. Mar 18, 2020 07:38
--- NOTE | 2020-03-18 07:45 | Initial Psychiatric Evaluation ---
Psychiatry Consultation Psychiatry Consultation Chief Complaint: Abnormal Labs History of Present Illness: Division for Gee Lozano left a 64-year-old male patient started last process he has sepsis altered on status diabetes which is causing a metabolic status with confusion" plus baseline he also has abnormal lab values Medicine examination 64-year-old male whose appearance showed what is anterior lightheaded affect cardioselective intellect poor mood depressed anxious moderately psychomotor agitation attention events for orientation x2 speech is low volume slurred thought process organized logical Insight judgment is poor Allergies: Coded Allergies: NO KNOWN DRUG ALLERGIES (Unverified Allergy, Unknown, 07/16/19) Medication History Scheduled Amino Acids/Protein Hydrolys (Pro-Stat Liquid), 30 ML GT DAILY, (Reported) Ascorbic Acid* (Vitamin C*), 250 MG GT DAILY, (Reported) Docusate Sodium (Docusate Sodium), 100 MG GT TWICE A DAY, (Reported) Famotidine (Pepcid), 20 MG ORAL BEDTIME, (Reported) Finasteride* (Proscar*), 5 MG GT DAILY, (Reported) Lacosamide (Vimpat), 100 MG GT BID, (Reported) Levetiracetam (Keppra), 20 ML GT BID, (Reported) Magnesium Hydroxide (Milk of Magnesia), 30 ML GT BEDTIME, (Reported) Multivitamin Liquid* (Multi-Delyn*), 5 ML GT DAILY, (Reported) Risperidone* (Risperdal*), 1 MG GT BID, (Reported) Scheduled PRN Acetaminophen* (Acetaminophen 325MG Tablet*), 650 MG GT Q4H PRN for Fever/ Headache/Mild Pain, (Reported) Na Phos,M-B/Na Phos,Di-Ba* (Fleet Enema*), 133 ML RECTAL DAILY PRN for Constipation, (Reported) Nitroglycerin (Nitroglycerin), 0.4 MG SL q5mns x three doses PRN for chest pain, (Reported) Ondansetron* (Zofran*), 4 MG GT Q6H PRN for Nausea & Vomiting, (Reported) Polyethylene Glycol 3350* (Miralax*), 17 GM GT DAILY PRN for Constipation, ( Reported) Miscellaneous Medications [Santyl], 250 GM TOPIC, (Reported) Discontinued Medications Bisacodyl (Dulcolax), 10 MG RC DAILY PRN for Constipation, (Reported) Discontinued Reason: Pt stopped taking med Clotrimazole* (Lotrimin*), 1 APPLIC TOPIC TWICE A DAY, (Reported) Discontinued Reason: Pt stopped taking med Heparin Sod (Porcine) (Heparin Sodium*), 5,000 UNITS SUBQ EVERY 12 HOURS, ( Reported) Discontinued Reason: Pt stopped taking med Insulin Aspart (Novolog Flexpen), (Reported) Discontinued Reason: Pt stopped taking med Insulin Detemir (Levemir Flextouch), 15 UNIT SQ ACBREAKFAST, (Reported) Discontinued Reason: Pt stopped taking med Ipratropium/Albuterol Sulfate (DuoNeb 0.5-3(2.5)mg/3ml), 3 ML HHN Q4HR PRN for Shortness of Breath, (Reported) Discontinued Reason: Pt stopped taking med Levetiracetam (Keppra), 1,000 MG GT TID, (Reported) Discontinued Reason: Prescription changed Lorazepam* (Ativan*), 1 MG ORAL EVERY 6 HOURS PRN for Agitation, (Reported) Discontinued Reason: Pt stopped taking med Metoprolol Tartrate* (Metoprolol Tartrate*), 25 MG GT EVERY 12 HOURS, (Reported) Discontinued Reason: Pt stopped taking med Omeprazole (Omeprazole), 20 MG GT DAILY, (Reported) Discontinued Reason: Pt stopped taking med Potassium Chloride (Potassium Chloride), 40 MEQ GT BID, (Reported) Discontinued Reason: Pt stopped taking med Quercetin Dihydrate (Quercetin Dihydrate), 500 MG GT BEFORE BREAKFAST, (Reported ) Discontinued Reason: Pt stopped taking med Sennosides/Docusate Sodium (Senna Laxative Tablet), 2 EACH GT QHS, (Reported) Discontinued Reason: Pt stopped taking med Temazepam* (Restoril*), 15 MG ORAL BEDTIME, (Reported) Discontinued Reason: Pt stopped taking med Zinc Sulfate (Zinc Sulfate*), 220 MG ORAL DAILY, (Reported) Discontinued Reason: Pt stopped taking med Objective Data Height (Feet): 5 Height (Inches): 7.00 Weight (Pounds): 179 Assessment/Plan Assessment/Plan: Plan for this patient is to treatment Risperdal 1 mg nightly Ativan 1 every 6 hours as needed anxiety station 20 minutes of cognitive behavioral therapy well mother positive mundane thoughts (negative thus more positive thus reduced breath anxiety mood lability, chart review discussed with staff Enrrique Escudero MD Mar 18, 2020 07:45
[2020-03-18 08:00] VITALS: BP 99/61
[2020-03-18] MEDS: Ascorbic Acid 500mg tab GT SCH ×2 (09:26→18:00)
[2020-03-18] MEDS: levETIRAcetam 500mg/5ml Liquid GT SCH ×2 (09:26→21:45)
[2020-03-18] MEDS: Docusate 100mg/10ml Liq GT SCH ×2 (09:26→18:00)
[2020-03-18] MEDS: Heparin 5000 units/ml inj SUBQ SCH ×2 (09:28→21:56)
--- NOTE | 2020-03-18 11:04 | General Progress Note ---
Assessment/Plan Problem List: (1) Urine retention ICD Codes: R33.9 - Retention of urine, unspecified SNOMED: 406282939 (2) BPH (benign prostatic hyperplasia) ICD Codes: N40.0 - Benign prostatic hyperplasia without lower urinary tract symptoms SNOMED: 043905455 (3) BPH (benign prostatic hyperplasia) ICD Codes: N40.0 - Benign prostatic hyperplasia without lower urinary tract symptoms SNOMED: 381078764 (4) Sepsis ICD Codes: A41.9 - Sepsis, unspecified organism SNOMED: 04076784 Status: unchanged Assessment/Plan: pt diet abx cbc bmp Subjective Constitutional: Reports: weakness Allergies: Coded Allergies: NO KNOWN DRUG ALLERGIES (Unverified Allergy, Unknown, 07/16/19) All Systems: reviewed and negative except above Subjective calm in bed sleepy Objective Last 24 Hour Vital Signs Date Time Temp Pulse Resp B/P (MAP) Pulse Ox O2 Delivery O2 Flow Rate FiO2 03/18/20 09:00 115 99/61 03/18/20 08:00 97.4 115 18 99/61 (74) 97 03/18/20 07:20 116 18 95 Room Air 21 03/18/20 04:00 97.9 107 22 92/63 (73) 97 03/18/20 00:00 97.9 104 22 107/64 (78) 99 03/17/20 21:18 109 113/79 03/17/20 21:00 Room Air 03/17/20 20:00 97.0 109 21 113/79 (90) 98 03/17/20 19:16 92 18 96 Room Air 21 03/17/20 16:00 98.2 80 19 118/69 (85) 100 03/17/20 12:00 98.4 86 18 123/75 (91) 99 Intake and Output 03/17/20 03/18/20 19:00 07:00 Intake Total 75 ml 525 ml Output Total 600 ml Balance -525 ml 525 ml IV Total 75 ml 525 ml Output Urine Total 600 ml # Voids 1 2 Height (Feet): 5 Height (Inches): 7.00 Weight (Pounds): 179 General Appearance: lethargic EENT: normal ENT inspection Neck: normal alignment Cardiovascular: normal peripheral pulses, normal rate, regular rhythm Respiratory/Chest: chest wall non-tender, lungs clear, normal breath sounds Abdomen: normal bowel sounds, non tender, soft Extremities: normal inspection Edema: no edema noted Arm (L), no edema noted Arm (R), no edema noted Leg (L), no edema noted Leg (R), no edema noted Pedal (L), no edema noted Pedal (R), no edema noted Generalized Neurologic: motor weakness Skin: normal pigmentation, warm/dry Donaldo Johnson Mar 18, 2020 11:04
--- NOTE | 2020-03-18 11:37 | Surgery Progress Note ---
Surgery Progress Note Subjective Additional Comments no acute events improving no n/v/f/c comfortable Objective Last 24 Hour Vital Signs Date Time Temp Pulse Resp B/P (MAP) Pulse Ox O2 Delivery O2 Flow Rate FiO2 03/18/20 09:00 Room Air 03/18/20 09:00 115 99/61 03/18/20 08:00 97.4 115 18 99/61 (74) 97 03/18/20 07:20 116 18 95 Room Air 21 03/18/20 04:00 97.9 107 22 92/63 (73) 97 03/18/20 00:00 97.9 104 22 107/64 (78) 99 03/17/20 21:18 109 113/79 03/17/20 21:00 Room Air 03/17/20 20:00 97.0 109 21 113/79 (90) 98 03/17/20 19:16 92 18 96 Room Air 21 03/17/20 16:00 98.2 80 19 118/69 (85) 100 03/17/20 12:00 98.4 86 18 123/75 (91) 99 I&O Intake and Output 03/17/20 03/18/20 19:00 07:00 Intake Total 75 ml 525 ml Output Total 600 ml Balance -525 ml 525 ml IV Total 75 ml 525 ml Output Urine Total 600 ml # Voids 1 2 Dressing: saturated Cardiovascular: RSR Respiratory: decreased breath sounds Abdomen: soft, non-tender, present bowel sounds Extremities: no edema, no tenderness, no cyanosis Plan Problems: (1) Sepsis (2) JULIO CÉSAR (acute kidney injury) (3) Tachycardia (4) Diabetes (5) Schizophrenia (6) Seizure disorder (7) Hyperosmolar coma (8) OBS (organic brain syndrome) (9) UTI (urinary tract infection) (10) Adrenal insufficiency (11) Hypertension (12) ARF (acute renal failure) (13) Severe sepsis (14) Diabetes mellitus out of control (15) Feeding by G-tube Assessment & Plan: DAILY ESTIMATED NEEDS: Needs based on DM, 69.5kg 25-30 kcals/kg 2930-8925 total kcals 1.25-1.5 g protein/kg 87-104 g total protein 25-30 mL/kg 8938-5563 total fluid mLs NUTRITION DIAGNOSIS: * Swallowing difficulty R/T dysphagia, hx CVA as evidenced by pt h/o PEG, now on GT feeds without oral grat. CURRENT TF:Glucerna 1.2 @50ml/hr x 24 hrs ENTERAL NUTRITION RECOMMENDATIONS: Glucerna 1.2 @65ml/hr x24 hrs to provide 1560ml, 1872 kcal, 94g pro, 1256ml free H20 - Rec to increase goal rate and run time to better meet est needs - Flush per MD. HOB over 30 degrees ADDITIONAL RECOMMENDATIONS: 1) Calibrated bed scale for accurate wts 2) TF recs as above, pt would benefit from increased insulin coverage Continue to monitor BG, lytes (K low 3.3) 3) Increase water flushes (elev na and BUN) -> rec increased water flushes instead of D5 IVF for BG control. 4) Wound Care: continue Vit C, add Rashid BID via GT (mix w/ 4oz H2O) (16) C. 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 An Area of non-Blanchable erythema without induration noted to R trochanter.(L) 5.5cm x (W)4.4cm. Scattered areas of hyperpigmentation with hypertrophic scar noted to sacrum and buttocks. Darker skin tone without erythema noted to scrotum and perineum. Contractures bilat lower extremities. Non-Blanchable erythema lateral L Tibia(L) 11.5cm x (W)1cm. Two small partial thickness wounds noted to web space of L 2nd metatarsal. Full Thickness Pressure injury R Heel (L)4cm x (W)5.2cm x (D)0.1cm. Base of wound is 40% necrotic ,60% pink with scattered Biofilm.No odor noted. Small amt serous exudate noted. Non-blanchable erythema periwound with dry loose skin. Unstageable Pressure injury Dorsal R 2nd Metatarsal.1.2cm x (W)1.5cm. Base of wound is 100% slough with erythematous borders and periwound. No odor or exudate noted. Tx.Plan: Apply Moisture Barrier Paste to Sacrum. Cover with Optifoam drsg. Change every 3 days and prn. Apply Moisture Barrier Paste to Scrotum and Perineum with each incontinence care. Apply Cavilon Skin Barrier to Bilat Hips/Trochanteric areas. Cover each site with Optifoam drsg. Change every 7 days and prn. Apply Betadine to R and L Foot wounds. Cover with Optifoam drsgs every 3 days and prn. Reposition at least every 2hours or as tolerated. Place Pillow between knees. Off-load heel with Pillow. APM/EDELMIRA Mattress. (19) Suspected COVID-19 virus infection (20) COPD (chronic obstructive pulmonary disease) (21) Fever (22) Parkinson disease (23) BPH (benign prostatic hyperplasia) Ziyad Bolaños Mar 18, 2020 11:37
--- NOTE | 2020-03-18 11:58 | Cardiac Electrophysiology PN ---
Assessment/Plan Assessment/Plan 1. Sinus tachycardia, due to sepsis, anemia, respiratory failure and lactic acidosis. Ruled out for NC. Nl EF 65%. Off tele 2. Hypertension. On metoprolol 25 mg b.i.d. 3. Lactic acidosis and sepsis, on antibiotic. 4. Dysphagia, status post G-tube placement. 5. Uncontrolled diabetes . 6. History of COVID-19 pneumonia, currently off isolation. DW RN Subjective Subjective Confused in NAD. GT feeding ongoing in NAD off restraints. DC to SN[facility] pending Objective Last 24 Hour Vital Signs Date Time Temp Pulse Resp B/P (MAP) Pulse Ox O2 Delivery O2 Flow Rate FiO2 03/18/20 09:00 Room Air 03/18/20 09:00 115 99/61 03/18/20 08:00 97.4 115 18 99/61 (74) 97 03/18/20 07:20 116 18 95 Room Air 21 03/18/20 04:00 97.9 107 22 92/63 (73) 97 03/18/20 00:00 97.9 104 22 107/64 (78) 99 03/17/20 21:18 109 113/79 03/17/20 21:00 Room Air 03/17/20 20:00 97.0 109 21 113/79 (90) 98 03/17/20 19:16 92 18 96 Room Air 21 03/17/20 16:00 98.2 80 19 118/69 (85) 100 03/17/20 12:00 98.4 86 18 123/75 (91) 99 Intake and Output 03/17/20 03/18/20 19:00 07:00 Intake Total 75 ml 525 ml Output Total 600 ml Balance -525 ml 525 ml IV Total 75 ml 525 ml Output Urine Total 600 ml # Voids 1 2 Objective HEAD AND NECK: No JVD. LUNGS: Decreased breath sounds. CARDIOVASCULAR: Shows regular S1 and S2. Tachycardic. ABDOMEN: Soft. The G-tube is intact. EXTREMITIES: No pitting edema. Sage Araujo MD Mar 18, 2020 11:58
[2020-03-18 12:00] VITALS: BP 117/75
--- NOTE | 2020-03-18 13:08 | Nephrology Progress Note ---
Assessment/Plan Problem List: (1) JULIO CÉSAR (acute kidney injury) (2) Dehydration (3) UTI (urinary tract infection) (4) Severe sepsis (5) Feeding by G-tube (6) Diabetes mellitus out of control (7) Seizure disorder Assessment Acute renal failure, patient presents with serum creatinine of 2 Dehydration, electrolyte imbalances Sepsis, UTI Diabetes mellitus [id number] Hypertension COPD, aspiration risk History of CVA, seizure disorder Cerebral palsy Protein calorie malnutrition Suspected COVID-19 virus infection Schizophrenia BPH G-tube feeding History of Parkinson's disease Plan March 18: No labs drawn today. Will check electrolytes and renal parameters tomorrow. Continue per consultants. March 17: Labs reviewed. Serum sodium declining. Potassium supplement given. Continue per consultants. Serum creatinine is higher to 1.5 today. Will continue to monitor renal parameters March 16: No labs drawn today. Patient on D5W IV fluid. Will check labs tomorrow. Continue per consultants. March 15: Serum creatinine to baseline. Labs reviewed. Sodium remains elevated and potassium remains low. Continue half-normal saline hypotonic IV fluid hydration with IV potassium chloride. Per orders. Previous suggestions: Hydrate, free water via GT for hypernatremia Potassium supplement Adjust blood pressure medication as the patient is hypotensive Albumin bolus Anemia work-up Monitor renal parameters Avoid nephrotoxic's Per orders Subjective ROS Limited/Unobtainable: Yes Objective Objective Last 24 Hour Vital Signs Date Time Temp Pulse Resp B/P (MAP) Pulse Ox O2 Delivery O2 Flow Rate FiO2 03/18/20 12:00 98.0 109 18 117/75 (89) 99 03/18/20 09:00 Room Air 03/18/20 09:00 115 99/61 03/18/20 08:00 97.4 115 18 99/61 (74) 97 03/18/20 07:20 116 18 95 Room Air 21 03/18/20 04:00 97.9 107 22 92/63 (73) 97 03/18/20 00:00 97.9 104 22 107/64 (78) 99 03/17/20 21:18 109 113/79 03/17/20 21:00 Room Air 03/17/20 20:00 97.0 109 21 113/79 (90) 98 03/17/20 19:16 92 18 96 Room Air 21 03/17/20 16:00 98.2 80 19 118/69 (85) 100 Intake and Output 03/17/20 03/18/20 19:00 07:00 Intake Total 75 ml 525 ml Output Total 600 ml Balance -525 ml 525 ml IV Total 75 ml 525 ml Output Urine Total 600 ml # Voids 1 2 No labs drawn today Height (Feet): 5 Height (Inches): 7.00 Weight (Pounds): 178 General Appearance: no apparent distress Cardiovascular: tachycardia Respiratory/Chest: decreased breath sounds Abdomen: soft Xander Lake MD Mar 18, 2020 13:08
--- NOTE | 2020-03-18 14:26 | Pulmonology Progress Note ---
Subjective ROS Limited/Unobtainable: Yes Constitutional: Reports: no symptoms HEENT: Repors: no symptoms Respiratory: Reports: no symptoms Cardiovascular: Reports: no symptoms Allergies: Coded Allergies: NO KNOWN DRUG ALLERGIES (Unverified Allergy, Unknown, 07/16/19) All Systems: reviewed and negative except above Objective Last 24 Hour Vital Signs Date Time Temp Pulse Resp B/P (MAP) Pulse Ox O2 Delivery O2 Flow Rate FiO2 03/18/20 12:00 98.0 109 18 117/75 (89) 99 03/18/20 09:00 Room Air 03/18/20 09:00 115 99/61 03/18/20 08:00 97.4 115 18 99/61 (74) 97 03/18/20 07:20 116 18 95 Room Air 21 03/18/20 04:00 97.9 107 22 92/63 (73) 97 03/18/20 00:00 97.9 104 22 107/64 (78) 99 03/17/20 21:18 109 113/79 03/17/20 21:00 Room Air 03/17/20 20:00 97.0 109 21 113/79 (90) 98 03/17/20 19:16 92 18 96 Room Air 21 03/17/20 16:00 98.2 80 19 118/69 (85) 100 Intake and Output 03/17/20 03/18/20 19:00 07:00 Intake Total 75 ml 525 ml Output Total 600 ml Balance -525 ml 525 ml IV Total 75 ml 525 ml Output Urine Total 600 ml # Voids 1 2 General Appearance: WD/WN HEENT: normocephalic, atraumatic Respiratory: chest wall non-tender, lungs clear Cardiovascular: normal peripheral pulses, normal rate Abdomen: normal bowel sounds, soft, non tender, hyperactive bowel sounds Extremities: no cyanosis Neurologic: screening tech II-XII grossly normal Lymphatic: no neck adenopathy Current Medications Medications (Trade) Dose Ordered Sig/Monalisa Route PRN Reason Start Time Stop Time Status Last Admin Dose Admin Acetaminophen (Tylenol) 325 mg Q4H PRN GT Mild Pain(Pain Scale1-3)/fever 03/16/20 09:00 04/12/20 08:59 Ascorbic Acid (Vitamin C) 500 mg TWICE A DAY GT 03/16/20 09:00 04/12/20 17:59 03/18/20 09:26 Dextrose 1,000 ml @ 75 mls/hr [id number] IV 03/16/20 10:00 04/15/20 09:59 03/18/20 02:32 Dextrose (Dextrose 50%) 25 ml Q30M PRN IV Hypoglycemia 03/16/20 09:00 06/11/20 08:59 Dextrose (Dextrose 50%) 50 ml Q30M PRN IV Hypoglycemia 03/16/20 09:00 06/11/20 08:59 Docusate Sodium (Colace) 100 mg TWICE A DAY GT 03/16/20 09:00 04/12/20 17:59 03/18/20 09:26 Finasteride (Proscar) 5 mg DAILY ORAL 03/16/20 13:00 06/12/20 12:59 03/18/20 09:26 Heparin Sodium (Porcine) (Heparin 5000 units/ml) 5,000 units EVERY 12 HOURS SUBQ 03/16/20 09:00 04/27/20 20:59 03/18/20 09:28 Insulin Aspart (NovoLOG) Q6HR SUBQ 03/16/20 12:00 06/11/20 05:59 03/18/20 12:25 Lansoprazole (Prevacid) 30 mg Q12HR GT 03/16/20 09:30 04/13/20 09:29 03/18/20 09:26 Levetiracetam (Keppra) 1,000 mg Q12HR GT 03/16/20 09:00 04/27/20 12:59 03/18/20 09:26 Lorazepam (Ativan) 1 mg Q6H PRN GT For Anxiety 03/16/20 09:00 03/20/20 08:59 03/16/20 09:32 Meropenem 1 gm/ Sodium Chloride 55 ml @ 110 mls/hr Q8HR IVPB 03/16/20 14:00 03/20/20 13:59 03/18/20 05:38 Metoprolol Tartrate (Lopressor) 25 mg Q12HR GT 03/16/20 09:00 06/11/20 20:59 03/17/20 21:18 Ondansetron HCl (Zofran) 4 mg Q6H PRN GT Nausea & Vomiting 03/16/20 09:00 04/12/20 08:59 Potassium Chloride (K-Dur) 20 meq TWICE A DAY GT 03/17/20 09:00 06/15/20 08:59 03/18/20 09:26 Risperidone (RisperDAL) 1 mg QHS GT 03/16/20 21:00 04/27/20 20:59 03/17/20 21:18 Assessment/Plan Problems: (1) Sepsis (2) JULIO CÉSAR (acute kidney injury) (3) Suspected COVID-19 virus infection (4) COPD (chronic obstructive pulmonary disease) (5) Seizure disorder (6) Schizophrenia (7) BPH (benign prostatic hyperplasia) (8) Parkinson disease (9) Feeding by G-tube (10) Hypertension Assessment/Plan looks good doing better, covid negative times one Urine has >100K GNB continue iv abx check sensitivity of GNB iv fluids check electrolytes dvt prophylaxis Lucie Gracia MD Mar 18, 2020 14:26
[2020-03-18 16:00] VITALS: BP 120/79
[2020-03-18 20:00] VITALS: BP 100/62
[2020-03-19] VITALS: BP 97/60
[2020-03-19] MEDS: NovoLOG Insulin Flexpen SUBQ SCH ×4 (00:15→17:24)
[2020-03-19] MEDS ORDERED: Milk of Magnesia 30ml Ud ORAL PRN (03:15)
[2020-03-19 04:00] VITALS: BP 103/69
[2020-03-19] MEDS: Meropenem 1 GM in NS 55 ML IVPB SCH ×3 (06:18→21:52)
[2020-03-19] MEDS: Milk of Magnesia 30ml Ud GT PRN ×2 (06:54→09:27)
[2020-03-19 08:00] VITALS: BP 114/85
[2020-03-19] MEDS ORDERED: LORazepam Inj 2mg/ml 1ml IV PRN (08:00)
[2020-03-19] MEDS ORDERED: Docusate 100mg cap ORAL SCH (09:00)
[2020-03-19] MEDS: Ascorbic Acid 500mg tab GT SCH ×2 (09:27→17:16)
[2020-03-19] MEDS: Docusate 100mg/10ml Liq GT SCH ×2 (09:27→17:16)
[2020-03-19] MEDS: levETIRAcetam 500mg/5ml Liquid GT SCH ×2 (09:27→20:45)
--- NOTE | 2020-03-19 09:40 | Surgery Progress Note ---
Surgery Progress Note Subjective Symptoms: tolerating diet, passing flatus Objective Last 24 Hour Vital Signs Date Time Temp Pulse Resp B/P (MAP) Pulse Ox O2 Delivery O2 Flow Rate FiO2 03/19/20 08:00 98.9 127 22 114/85 (95) 95 03/19/20 07:55 110 18 98 Room Air 21 03/19/20 04:00 97.9 110 22 103/69 (80) 95 03/19/20 00:00 97.8 110 22 97/60 (72) 94 03/18/20 21:44 113 100/62 03/18/20 21:00 Room Air 03/18/20 20:12 110 18 97 Room Air 21 03/18/20 20:00 98.1 113 20 100/62 (75) 96 03/18/20 16:00 97.2 115 18 120/79 (93) 97 03/18/20 12:00 98.0 109 18 117/75 (89) 99 I&O Intake and Output 03/18/20 03/19/20 19:00 07:00 # Voids 4 # Bowel Movements 2 Dressing: other Wound: other Cardiovascular: RSR Respiratory: decreased breath sounds Abdomen: soft, non-tender, present bowel sounds Extremities: no tenderness, no cyanosis Plan Problems: (1) Sepsis (2) JULIO CÉSAR (acute kidney injury) (3) Tachycardia (4) Diabetes (5) Schizophrenia (6) Seizure disorder (7) Hyperosmolar coma (8) OBS (organic brain syndrome) (9) UTI (urinary tract infection) (10) Adrenal insufficiency (11) Hypertension (12) ARF (acute renal failure) (13) Severe sepsis (14) Diabetes mellitus out of control (15) Feeding by G-tube Assessment & Plan: DAILY ESTIMATED NEEDS: Needs based on DM, 69.5kg 25-30 kcals/kg 2364-0555 total kcals 1.25-1.5 g protein/kg 87-104 g total protein 25-30 mL/kg 8820-3979 total fluid mLs NUTRITION DIAGNOSIS: * Swallowing difficulty R/T dysphagia, hx CVA as evidenced by pt h/o PEG, now on GT feeds without oral grat. CURRENT TF:Glucerna 1.2 @50ml/hr x 24 hrs ENTERAL NUTRITION RECOMMENDATIONS: Glucerna 1.2 @65ml/hr x24 hrs to provide 1560ml, 1872 kcal, 94g pro, 1256ml free H20 - Rec to increase goal rate and run time to better meet est needs - Flush per MD. HOB over 30 degrees ADDITIONAL RECOMMENDATIONS: 1) Calibrated bed scale for accurate wts 2) TF recs as above, pt would benefit from increased insulin coverage Continue to monitor BG, lytes (K low 3.3) 3) Increase water flushes (elev na and BUN) -> rec increased water flushes instead of D5 IVF for BG control. 4) Wound Care: continue Vit C, add Rashid BID via GT (mix w/ 4oz H2O) (16) C. 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 An Area of non-Blanchable erythema without induration noted to R trochanter.(L) 5.5cm x (W)4.4cm. Scattered areas of hyperpigmentation with hypertrophic scar noted to sacrum and buttocks. Darker skin tone without erythema noted to scrotum and perineum. Contractures bilat lower extremities. Non-Blanchable erythema lateral L Tibia(L) 11.5cm x (W)1cm. Two small partial thickness wounds noted to web space of L 2nd metatarsal. Full Thickness Pressure injury R Heel (L)4cm x (W)5.2cm x (D)0.1cm. Base of wound is 40% necrotic ,60% pink with scattered Biofilm.No odor noted. Small amt serous exudate noted. Non-blanchable erythema periwound with dry loose skin. Unstageable Pressure injury Dorsal R 2nd Metatarsal.1.2cm x (W)1.5cm. Base of wound is 100% slough with erythematous borders and periwound. No odor or exudate noted. Tx.Plan: Apply Moisture Barrier Paste to Sacrum. Cover with Optifoam drsg. Change every 3 days and prn. Apply Moisture Barrier Paste to Scrotum and Perineum with each incontinence care. Apply Cavilon Skin Barrier to Bilat Hips/Trochanteric areas. Cover each site with Optifoam drsg. Change every 7 days and prn. Apply Betadine to R and L Foot wounds. Cover with Optifoam drsgs every 3 days and prn. Reposition at least every 2hours or as tolerated. Place Pillow between knees. Off-load heel with Pillow. APM/EDELMIRA Mattress. (19) Suspected COVID-19 virus infection (20) COPD (chronic obstructive pulmonary disease) (21) Fever (22) Parkinson disease (23) BPH (benign prostatic hyperplasia) Ziyad Bolaños Mar 19, 2020 09:40
[2020-03-19] MEDS: Heparin 5000 units/ml inj SUBQ SCH ×2 (09:49→20:48)
--- NOTE | 2020-03-19 10:05 | Initial Psychiatric Evaluation ---
Psychiatry Consultation Psychiatry Consultation Chief Complaint: Abnormal Labs History of Present Illness: 64-year-old male today's variable agitated tremendous amount of psychomotor agitation try to pull out his IV lines effectively submaximal level as light as required additional treatment this time Mental Status examination: This is a 64-year-old male whose appearance is disheveled is at future bracket his affect is guarded restricted intellect poor mood depressed anxious motor activity psychomotor agitation attention span is poor orientation x2 speech is pressured nonsensical thought processes organized logical thought content logical is Delusions insight judgment poor Allergies: Coded Allergies: NO KNOWN DRUG ALLERGIES (Unverified Allergy, Unknown, 07/16/19) Medication History Scheduled Amino Acids/Protein Hydrolys (Pro-Stat Liquid), 30 ML GT DAILY, (Reported) Ascorbic Acid* (Vitamin C*), 250 MG GT DAILY, (Reported) Docusate Sodium (Docusate Sodium), 100 MG GT TWICE A DAY, (Reported) Famotidine (Pepcid), 20 MG ORAL BEDTIME, (Reported) Finasteride* (Proscar*), 5 MG GT DAILY, (Reported) Lacosamide (Vimpat), 100 MG GT BID, (Reported) Levetiracetam (Keppra), 20 ML GT BID, (Reported) Magnesium Hydroxide (Milk of Magnesia), 30 ML GT BEDTIME, (Reported) Multivitamin Liquid* (Multi-Delyn*), 5 ML GT DAILY, (Reported) Risperidone* (Risperdal*), 1 MG GT BID, (Reported) Scheduled PRN Acetaminophen* (Acetaminophen 325MG Tablet*), 650 MG GT Q4H PRN for Fever/ Headache/Mild Pain, (Reported) Na Phos,M-B/Na Phos,Di-Ba* (Fleet Enema*), 133 ML RECTAL DAILY PRN for Constipation, (Reported) Nitroglycerin (Nitroglycerin), 0.4 MG SL q5mns x three doses PRN for chest pain, (Reported) Ondansetron* (Zofran*), 4 MG GT Q6H PRN for Nausea & Vomiting, (Reported) Polyethylene Glycol 3350* (Miralax*), 17 GM GT DAILY PRN for Constipation, ( Reported) Miscellaneous Medications [Santyl], 250 GM TOPIC, (Reported) Discontinued Medications Bisacodyl (Dulcolax), 10 MG RC DAILY PRN for Constipation, (Reported) Discontinued Reason: Pt stopped taking med Clotrimazole* (Lotrimin*), 1 APPLIC TOPIC TWICE A DAY, (Reported) Discontinued Reason: Pt stopped taking med Heparin Sod (Porcine) (Heparin Sodium*), 5,000 UNITS SUBQ EVERY 12 HOURS, ( Reported) Discontinued Reason: Pt stopped taking med Insulin Aspart (Novolog Flexpen), (Reported) Discontinued Reason: Pt stopped taking med Insulin Detemir (Levemir Flextouch), 15 UNIT SQ ACBREAKFAST, (Reported) Discontinued Reason: Pt stopped taking med Ipratropium/Albuterol Sulfate (DuoNeb 0.5-3(2.5)mg/3ml), 3 ML HHN Q4HR PRN for Shortness of Breath, (Reported) Discontinued Reason: Pt stopped taking med Levetiracetam (Keppra), 1,000 MG GT TID, (Reported) Discontinued Reason: Prescription changed Lorazepam* (Ativan*), 1 MG ORAL EVERY 6 HOURS PRN for Agitation, (Reported) Discontinued Reason: Pt stopped taking med Metoprolol Tartrate* (Metoprolol Tartrate*), 25 MG GT EVERY 12 HOURS, (Reported) Discontinued Reason: Pt stopped taking med Omeprazole (Omeprazole), 20 MG GT DAILY, (Reported) Discontinued Reason: Pt stopped taking med Potassium Chloride (Potassium Chloride), 40 MEQ GT BID, (Reported) Discontinued Reason: Pt stopped taking med Quercetin Dihydrate (Quercetin Dihydrate), 500 MG GT BEFORE BREAKFAST, (Reported ) Discontinued Reason: Pt stopped taking med Sennosides/Docusate Sodium (Senna Laxative Tablet), 2 EACH GT QHS, (Reported) Discontinued Reason: Pt stopped taking med Temazepam* (Restoril*), 15 MG ORAL BEDTIME, (Reported) Discontinued Reason: Pt stopped taking med Zinc Sulfate (Zinc Sulfate*), 220 MG ORAL DAILY, (Reported) Discontinued Reason: Pt stopped taking med Objective Data Height (Feet): 5 Height (Inches): 7.00 Weight (Pounds): 178 Assessment/Plan Assessment/Plan: Plan for this patient is to increase Risperdal to 1 mg BID Ativan 1 every 6 hours as needed anxiety station 20 minutes of cognitive behavioral therapy well mother positive mundane thoughts (negative thus more positive thus reduced breath anxiety mood lability, chart review discussed with staff Enrrique Escudero MD Mar 19, 2020 10:05
[2020-03-19 11:10] VITALS: BP 131/96
--- NOTE | 2020-03-19 11:26 | General Progress Note ---
Assessment/Plan Problem List: (1) Urine retention ICD Codes: R33.9 - Retention of urine, unspecified SNOMED: 307685126 (2) BPH (benign prostatic hyperplasia) ICD Codes: N40.0 - Benign prostatic hyperplasia without lower urinary tract symptoms SNOMED: 921682049 (3) BPH (benign prostatic hyperplasia) ICD Codes: N40.0 - Benign prostatic hyperplasia without lower urinary tract symptoms SNOMED: 178750380 (4) Sepsis ICD Codes: A41.9 - Sepsis, unspecified organism SNOMED: 36302843 Status: unchanged Assessment/Plan: pt diet abx cbc bmp am Subjective Constitutional: Reports: weakness Allergies: Coded Allergies: NO KNOWN DRUG ALLERGIES (Unverified Allergy, Unknown, 07/16/19) All Systems: reviewed and negative except above Subjective calm in bed sleepy Objective Last 24 Hour Vital Signs Date Time Temp Pulse Resp B/P (MAP) Pulse Ox O2 Delivery O2 Flow Rate FiO2 03/19/20 11:10 97.3 107 20 131/96 (108) 99 03/19/20 09:27 127 114/85 03/19/20 09:00 Room Air 03/19/20 08:00 98.9 127 22 114/85 (95) 95 03/19/20 07:55 110 18 98 Room Air 21 03/19/20 04:00 97.9 110 22 103/69 (80) 95 03/19/20 00:00 97.8 110 22 97/60 (72) 94 03/18/20 21:44 113 100/62 03/18/20 21:00 Room Air 03/18/20 20:12 110 18 97 Room Air 21 03/18/20 20:00 98.1 113 20 100/62 (75) 96 03/18/20 16:00 97.2 115 18 120/79 (93) 97 03/18/20 12:00 98.0 109 18 117/75 (89) 99 Intake and Output 03/18/20 03/19/20 19:00 07:00 Intake Total 135 ml Balance 135 ml IV Total 75 ml Tube Feeding 60 ml # Voids 4 # Bowel Movements 2 Height (Feet): 5 Height (Inches): 7.00 Weight (Pounds): 178 General Appearance: lethargic EENT: normal ENT inspection Neck: normal alignment Cardiovascular: normal peripheral pulses, normal rate, regular rhythm Respiratory/Chest: chest wall non-tender, lungs clear, normal breath sounds Abdomen: normal bowel sounds, non tender, soft Extremities: normal inspection Edema: no edema noted Arm (L), no edema noted Arm (R), no edema noted Leg (L), no edema noted Leg (R), no edema noted Pedal (L), no edema noted Pedal (R), no edema noted Generalized Neurologic: motor weakness Skin: normal pigmentation, warm/dry Donaldo Johnson Mar 19, 2020 11:26
[2020-03-19 11:55] LABS: BASOPHILS % (AUTO) 0.3 % (0.0-2.0); EOSINOPHILS % (AUTO) 1.5 % (0.0-3.0); HEMATOCRIT 29.3 % (42.0-52.0); HEMOGLOBIN 8.9 G/DL (14.2-18.0); LYMPHOCYTES % (AUTO) 10.7 % (20.0-45.0); MEAN CORPUSCULAR VOLUME 68 FL (80-99); MONOCYTES % (AUTO) 4.5 % (1.0-10.0); PLATELET COUNT 290 K/UL (150-450); RED BLOOD COUNT 4.31 M/UL (4.70-6.10); RED CELL DISTRIBUTION WIDTH 13.1 % (11.6-14.8); WHITE BLOOD COUNT 11.7 K/UL (4.8-10.8)
[2020-03-19 12:08] LABS: ALANINE AMINOTRANSFERASE 20 U/L (12-78); ALBUMIN 2.2 G/DL (3.4-5.0); ALBUMIN/GLOBULIN RATIO 0.4 (1.0-2.7); ALKALINE PHOSPHATASE 75 U/L (46-116); ANION GAP 11 mmol/L (5-15); ASPARTATE AMINO TRANSFERASE 21 U/L (15-37); BILIRUBIN,TOTAL 0.4 MG/DL (0.2-1.0); BLOOD UREA NITROGEN 23 mg/dL (7-18); CALCIUM 8.6 MG/DL (8.5-10.1); CARBON DIOXIDE 27 MMOL/L (21-32); CHLORIDE 116 MMOL/L (98-107); CREATININE 1.4 MG/DL (0.55-1.30); PHOSPHORUS 2.5 MG/DL (2.5-4.9); POTASSIUM 3.3 MMOL/L (3.5-5.1); SODIUM 153 MMOL/L (136-145)
--- NOTE | 2020-03-19 12:44 | Nephrology Progress Note ---
Assessment/Plan Problem List: (1) JULIO CÉSAR (acute kidney injury) (2) Dehydration (3) UTI (urinary tract infection) (4) Severe sepsis (5) Feeding by G-tube (6) Diabetes mellitus out of control (7) Seizure disorder Assessment Acute renal failure, patient presents with serum creatinine of 2 Dehydration, electrolyte imbalances Sepsis, UTI Diabetes mellitus [id number] Hypertension COPD, aspiration risk History of CVA, seizure disorder Cerebral palsy Protein calorie malnutrition Suspected COVID-19 virus infection Schizophrenia BPH G-tube feeding History of Parkinson's disease Plan March 19: Labs reviewed. Potassium supplements dosages increased. Continue D5W IV fluid. Continue to monitor electrolytes. March 18: No labs drawn today. Will check electrolytes and renal parameters tomorrow. Continue per consultants. March 17: Labs reviewed. Serum sodium declining. Potassium supplement given. Continue per consultants. Serum creatinine is higher to 1.5 today. Will continue to monitor renal parameters March 16: No labs drawn today. Patient on D5W IV fluid. Will check labs tomorrow. Continue per consultants. March 15: Serum creatinine to baseline. Labs reviewed. Sodium remains elevated and potassium remains low. Continue half-normal saline hypotonic IV fluid hydration with IV potassium chloride. Per orders. Previous suggestions: Hydrate, free water via GT for hypernatremia Potassium supplement Adjust blood pressure medication as the patient is hypotensive Albumin bolus Anemia work-up Monitor renal parameters Avoid nephrotoxic's Per orders Subjective ROS Limited/Unobtainable: No Constitutional: Reports: malaise, weakness Objective Objective Last 24 Hour Vital Signs Date Time Temp Pulse Resp B/P (MAP) Pulse Ox O2 Delivery O2 Flow Rate FiO2 03/19/20 11:10 97.3 107 20 131/96 (108) 99 03/19/20 09:27 127 114/85 03/19/20 09:00 Room Air 03/19/20 08:00 98.9 127 22 114/85 (95) 95 03/19/20 07:55 110 18 98 Room Air 03/19/20 04:00 97.9 110 22 103/69 (80) 95 03/19/20 00:00 97.8 110 22 97/60 (72) 94 03/18/20 21:44 113 100/62 03/18/20 21:00 Room Air 03/18/20 20:12 110 18 97 Room Air 03/18/20 20:00 98.1 113 20 100/62 (75) 96 03/18/20 16:00 97.2 115 18 120/79 (93) 97 Intake and Output 03/18/20 03/19/20 19:00 07:00 Intake Total 135 ml Balance 135 ml IV Total 75 ml Tube Feeding 60 ml # Voids 4 # Bowel Movements 2 Current Medications Medications (Trade) Dose Ordered Sig/Monalisa Route PRN Reason Start Time Stop Time Status Last Admin Dose Admin Acetaminophen (Tylenol) 325 mg Q4H PRN GT Mild Pain(Pain Scale1-3)/fever 03/16/20 09:00 04/12/20 08:59 Ascorbic Acid (Vitamin C) 500 mg TWICE A DAY GT 03/16/20 09:00 04/12/20 17:59 03/19/20 09:27 Bisacodyl (Dulcolax) 10 mg BID PRN RECTAL Constipation 03/19/20 03:15 06/17/20 03:14 Dextrose 1,000 ml @ 75 mls/hr [id number] IV 03/16/20 10:00 04/15/20 09:59 03/19/20 04:02 Dextrose (Dextrose 50%) 25 ml Q30M PRN IV Hypoglycemia 03/16/20 09:00 06/11/20 08:59 Dextrose (Dextrose 50%) 50 ml Q30M PRN IV Hypoglycemia 03/16/20 09:00 06/11/20 08:59 Docusate Sodium (Colace) 100 mg BID GT 03/19/20 09:00 04/18/20 08:59 03/19/20 09:27 Finasteride (Proscar) 5 mg DAILY ORAL 03/16/20 13:00 06/12/20 12:59 03/19/20 09:27 Heparin Sodium (Porcine) (Heparin 5000 units/ml) 5,000 units EVERY 12 HOURS SUBQ 03/16/20 09:00 04/27/20 20:59 03/19/20 09:49 Insulin Aspart (NovoLOG) Q6HR SUBQ 03/16/20 12:00 06/11/20 05:59 03/19/20 11:48 Lansoprazole (Prevacid) 30 mg Q12HR GT 03/16/20 09:30 04/13/20 09:29 03/19/20 09:27 Levetiracetam (Keppra) 1,000 mg Q12HR GT 03/16/20 09:00 04/27/20 12:59 03/19/20 09:27 Lorazepam (Ativan 2mg/ml 1ml) 1 mg Q4H PRN IV Agitation 03/19/20 08:00 03/26/20 07:59 03/19/20 09:28 Magnesium Hydroxide (Mom) 30 ml TID PRN GT Constipation 03/19/20 04:15 04/18/20 04:14 03/19/20 09:27 Meropenem 1 gm/ Sodium Chloride 55 ml @ 110 mls/hr Q8HR IVPB 03/16/20 14:00 03/20/20 13:59 03/19/20 06:18 Metoprolol Tartrate (Lopressor) 25 mg Q12HR GT 03/16/20 09:00 06/11/20 20:59 03/19/20 09:27 Ondansetron HCl (Zofran) 4 mg Q6H PRN GT Nausea & Vomiting 03/16/20 09:00 04/12/20 08:59 Potassium Chloride (K-Dur) 20 meq TWICE A DAY GT 03/17/20 09:00 06/15/20 08:59 03/19/20 09:28 Risperidone (RisperDAL) 1 mg BID GT 03/19/20 18:00 04/27/20 20:59 Laboratory Tests 03/19/20 11:10: White Blood Count 11.7H, Red Blood Count 4.31L, Hemoglobin 8.9L, Hematocrit 29.3L, Mean Corpuscular Volume 68L, Mean Corpuscular Hemoglobin 20.6L, Mean Corpuscular Hemoglobin Concent 30.3L, Red Cell Distribution Width 13.1, Platelet Count 290, Mean Platelet Volume 8.6, Neutrophils (%) (Auto) 83.0H, Lymphocytes (%) (Auto) 10.7L, Monocytes (%) (Auto) 4.5, Eosinophils (%) (Auto) 1.5, Basophils (%) (Auto) 0.3, Sodium Level 153H, Potassium Level 3.3L, Chloride Level 116H, Carbon Dioxide Level 27, Anion Gap 11, Blood Urea Nitrogen 23H, Creatinine 1.4H, Estimat Glomerular Filtration Rate 51.4, Glucose Level 168H, Calcium Level 8.6, Phosphorus Level 2.5, Magnesium Level 2.1, Total Bilirubin 0.4, Aspartate Amino Transf (AST/SGOT) 21, Alanine Aminotransferase ( ALT/SGPT) 20, Alkaline Phosphatase 75, Total Protein 7.6, Albumin 2.2L, Globulin 5.4, Albumin/Globulin Ratio 0.4L Height (Feet): 5 Height (Inches): 7.00 Weight (Pounds): 178 General Appearance: no apparent distress Cardiovascular: tachycardia Respiratory/Chest: decreased breath sounds Abdomen: distended Xander Lake MD Mar 19, 2020 12:43
--- NOTE | 2020-03-19 14:22 | Cardiac Electrophysiology PN ---
Assessment/Plan Assessment/Plan 1. Sinus tachycardia, due to sepsis, anemia, respiratory failure and lactic acidosis. Ruled out for [place]. Nl EF 65%. 2. Hypertension. On metoprolol 25 mg b.i.d. 3. Lactic acidosis and sepsis, on antibiotic. 4. Dysphagia, status post G-tube placement. 5. Uncontrolled diabetes . 6. History of COVID-19 pneumonia, currently off isolation. DIXON RN Subjective Subjective Confused in NAD. GT feeding ongoing in NAD off restraints. Objective Last 24 Hour Vital Signs Date Time Temp Pulse Resp B/P (MAP) Pulse Ox O2 Delivery O2 Flow Rate FiO2 03/19/20 11:10 97.3 107 20 131/96 (108) 99 03/19/20 09:27 127 114/85 03/19/20 09:00 Room Air 03/19/20 08:00 98.9 127 22 114/85 (95) 95 03/19/20 07:55 110 18 98 Room Air 21 03/19/20 04:00 97.9 110 22 103/69 (80) 95 03/19/20 00:00 97.8 110 22 97/60 (72) 94 03/18/20 21:44 113 100/62 03/18/20 21:00 Room Air 03/18/20 20:12 110 18 97 Room Air 21 03/18/20 20:00 98.1 113 20 100/62 (75) 96 03/18/20 16:00 97.2 115 18 120/79 (93) 97 Intake and Output 03/18/20 03/19/20 19:00 07:00 Intake Total 135 ml Balance 135 ml IV Total 75 ml Tube Feeding 60 ml # Voids 4 # Bowel Movements 2 Laboratory Tests Test 03/19/20 11:10 White Blood Count 11.7 K/UL (4.8-10.8) H Red Blood Count 4.31 M/UL (4.70-6.10) L Hemoglobin 8.9 G/DL (14.2-18.0) L Hematocrit 29.3 % (42.0-52.0) L Mean Corpuscular Volume 68 FL (80-99) L Mean Corpuscular Hemoglobin 20.6 PG (27.0-31.0) L Mean Corpuscular Hemoglobin Concent 30.3 G/DL (32.0-36.0) L Red Cell Distribution Width 13.1 % (11.6-14.8) Platelet Count 290 K/UL (150-450) Mean Platelet Volume 8.6 FL (6.5-10.1) Neutrophils (%) (Auto) 83.0 % (45.0-75.0) H Lymphocytes (%) (Auto) 10.7 % (20.0-45.0) L Monocytes (%) (Auto) 4.5 % (1.0-10.0) Eosinophils (%) (Auto) 1.5 % (0.0-3.0) Basophils (%) (Auto) 0.3 % (0.0-2.0) Sodium Level 153 MMOL/L (136-145) H Potassium Level 3.3 MMOL/L (3.5-5.1) L Chloride Level 116 MMOL/L (98-107) H Carbon Dioxide Level 27 MMOL/L (21-32) Anion Gap 11 mmol/L (5-15) Blood Urea Nitrogen 23 mg/dL (7-18) H Creatinine 1.4 MG/DL (0.55-1.30) H Estimat Glomerular Filtration Rate 51.4 mL/min (>60) Glucose Level 168 MG/DL (74-106) H Calcium Level 8.6 MG/DL (8.5-10.1) Phosphorus Level 2.5 MG/DL (2.5-4.9) Magnesium Level 2.1 MG/DL (1.8-2.4) Total Bilirubin 0.4 MG/DL (0.2-1.0) Aspartate Amino Transf (AST/SGOT) 21 U/L (15-37) Alanine Aminotransferase (ALT/SGPT) 20 U/L (12-78) Alkaline Phosphatase 75 U/L (46-116) Total Protein 7.6 G/DL (6.4-8.2) Albumin 2.2 G/DL (3.4-5.0) L Globulin 5.4 g/dL Albumin/Globulin Ratio 0.4 (1.0-2.7) L Objective HEAD AND NECK: No JVD. LUNGS: Decreased breath sounds. CARDIOVASCULAR: Shows regular S1 and S2. Tachycardic. ABDOMEN: Soft. The G-tube is intact. EXTREMITIES: No pitting edema. Sage Araujo MD Mar 19, 2020 14:22
[2020-03-19 16:00] VITALS: BP 131/80
--- NOTE | 2020-03-19 16:48 | Pulmonology Progress Note ---
Subjective ROS Limited/Unobtainable: No Constitutional: Reports: no symptoms HEENT: Repors: no symptoms Respiratory: Reports: no symptoms Cardiovascular: Reports: no symptoms Allergies: Coded Allergies: NO KNOWN DRUG ALLERGIES (Unverified Allergy, Unknown, 07/16/19) All Systems: reviewed and negative except above Objective Last 24 Hour Vital Signs Date Time Temp Pulse Resp B/P (MAP) Pulse Ox O2 Delivery O2 Flow Rate FiO2 03/19/20 16:00 98.8 113 19 131/80 (97) 96 03/19/20 11:10 97.3 107 20 131/96 (108) 99 03/19/20 09:27 127 114/85 03/19/20 09:00 Room Air 03/19/20 08:00 98.9 127 22 114/85 (95) 95 03/19/20 07:55 110 18 98 Room Air 21 03/19/20 04:00 97.9 110 22 103/69 (80) 95 03/19/20 00:00 97.8 110 22 97/60 (72) 94 03/18/20 21:44 113 100/62 03/18/20 21:00 Room Air 03/18/20 20:12 110 18 97 Room Air 21 03/18/20 20:00 98.1 113 20 100/62 (75) 96 Intake and Output 03/18/20 03/19/20 19:00 07:00 Intake Total 135 ml Balance 135 ml IV Total 75 ml Tube Feeding 60 ml # Voids 4 # Bowel Movements 2 General Appearance: WD/WN HEENT: normocephalic, atraumatic Respiratory: chest wall non-tender, lungs clear Cardiovascular: normal peripheral pulses, normal rate Abdomen: normal bowel sounds, soft, non tender, hyperactive bowel sounds Extremities: no cyanosis 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 Lymphatic: no neck adenopathy Laboratory Tests 03/19/20 11:10: White Blood Count 11.7H, Red Blood Count 4.31L, Hemoglobin 8.9L, Hematocrit 29.3L, Mean Corpuscular Volume 68L, Mean Corpuscular Hemoglobin 20.6L, Mean Corpuscular Hemoglobin Concent 30.3L, Red Cell Distribution Width 13.1, Platelet Count 290, Mean Platelet Volume 8.6, Neutrophils (%) (Auto) 83.0H, Lymphocytes (%) (Auto) 10.7L, Monocytes (%) (Auto) 4.5, Eosinophils (%) (Auto) 1.5, Basophils (%) (Auto) 0.3, Sodium Level 153H, Potassium Level 3.3L, Chloride Level 116H, Carbon Dioxide Level 27, Anion Gap 11, Blood Urea Nitrogen 23H, Creatinine 1.4H, Estimat Glomerular Filtration Rate 51.4, Glucose Level 168H, Calcium Level 8.6, Phosphorus Level 2.5, Magnesium Level 2.1, Total Bilirubin 0.4, Aspartate Amino Transf (AST/SGOT) 21, Alanine Aminotransferase ( ALT/SGPT) 20, Alkaline Phosphatase 75, Total Protein 7.6, Albumin 2.2L, Globulin 5.4, Albumin/Globulin Ratio 0.4L Current Medications Medications (Trade) Dose Ordered Sig/Monalisa Route PRN Reason Start Time Stop Time Status Last Admin Dose Admin Acetaminophen (Tylenol) 325 mg Q4H PRN GT Mild Pain(Pain Scale1-3)/fever 03/16/20 09:00 04/12/20 08:59 Ascorbic Acid (Vitamin C) 500 mg TWICE A DAY GT 03/16/20 09:00 04/12/20 17:59 03/19/20 09:27 Bisacodyl (Dulcolax) 10 mg BID PRN RECTAL Constipation 03/19/20 03:15 06/17/20 03:14 Dextrose 1,000 ml @ 75 mls/hr [id number] IV 03/16/20 10:00 04/15/20 09:59 03/19/20 13:45 Dextrose (Dextrose 50%) 25 ml Q30M PRN IV Hypoglycemia 03/16/20 09:00 06/11/20 08:59 Dextrose (Dextrose 50%) 50 ml Q30M PRN IV Hypoglycemia 03/16/20 09:00 06/11/20 08:59 Docusate Sodium (Colace) 100 mg BID GT 03/19/20 09:00 04/18/20 08:59 03/19/20 09:27 Finasteride (Proscar) 5 mg DAILY ORAL 03/16/20 13:00 06/12/20 12:59 03/19/20 09:27 Heparin Sodium (Porcine) (Heparin 5000 units/ml) 5,000 units EVERY 12 HOURS SUBQ 03/16/20 09:00 04/27/20 20:59 03/19/20 09:49 Insulin Aspart (NovoLOG) Q6HR SUBQ 03/16/20 12:00 06/11/20 05:59 03/19/20 11:48 Lansoprazole (Prevacid) 30 mg Q12HR GT 03/16/20 09:30 04/13/20 09:29 03/19/20 09:27 Levetiracetam (Keppra) 1,000 mg Q12HR GT 03/16/20 09:00 04/27/20 12:59 03/19/20 09:27 Lorazepam (Ativan 2mg/ml 1ml) 1 mg Q4H PRN IV Agitation 03/19/20 08:00 03/26/20 07:59 03/19/20 09:28 Magnesium Hydroxide (Mom) 30 ml TID PRN GT Constipation 03/19/20 04:15 04/18/20 04:14 03/19/20 09:27 Meropenem 1 gm/ Sodium Chloride 55 ml @ 110 mls/hr Q8HR IVPB 03/16/20 14:00 03/20/20 13:59 03/19/20 13:45 Metoprolol Tartrate (Lopressor) 25 mg Q12HR GT 03/16/20 09:00 06/11/20 20:59 03/19/20 09:27 Ondansetron HCl (Zofran) 4 mg Q6H PRN GT Nausea & Vomiting 03/16/20 09:00 04/12/20 08:59 Potassium Chloride (K-Dur) 40 meq TWICE A DAY GT 03/19/20 18:00 06/15/20 08:59 Risperidone (RisperDAL) 1 mg BID GT 03/19/20 18:00 04/27/20 20:59 Assessment/Plan Problems: (1) Sepsis (2) JULIO CÉSAR (acute kidney injury) (3) Suspected COVID-19 virus infection (4) COPD (chronic obstructive pulmonary disease) (5) Seizure disorder (6) Schizophrenia (7) BPH (benign prostatic hyperplasia) (8) Parkinson disease (9) Feeding by G-tube (10) Hypertension Assessment/Plan looks good doing better, covid negative times one Urine has >100K GNB continue iv abx check sensitivity of GNB iv fluids check electrolytes dvt prophylaxis Lucie Gracia MD Mar 19, 2020 16:48
[2020-03-19 20:00] VITALS: BP 116/75
[2020-03-20] VITALS: BP 122/75
[2020-03-20] MEDS: NovoLOG Insulin Flexpen SUBQ SCH ×5 (00:13→23:54)
[2020-03-20 04:00] VITALS: BP 114/75
[2020-03-20] MEDS: Meropenem 1 GM in NS 55 ML IVPB SCH ×3 (05:42→21:58)
[2020-03-20 08:00] VITALS: BP 117/88
--- NOTE | 2020-03-20 08:39 | General Progress Note ---
Assessment/Plan Problem List: (1) Urine retention ICD Codes: R33.9 - Retention of urine, unspecified SNOMED: 173781252 (2) BPH (benign prostatic hyperplasia) ICD Codes: N40.0 - Benign prostatic hyperplasia without lower urinary tract symptoms SNOMED: 869922572 (3) BPH (benign prostatic hyperplasia) ICD Codes: N40.0 - Benign prostatic hyperplasia without lower urinary tract symptoms SNOMED: 390366056 (4) Sepsis ICD Codes: A41.9 - Sepsis, unspecified organism SNOMED: 13810175 Status: unchanged Assessment/Plan: pt diet abx cbc bmp am Subjective Constitutional: Reports: weakness Allergies: Coded Allergies: NO KNOWN DRUG ALLERGIES (Unverified Allergy, Unknown, 07/16/19) All Systems: reviewed and negative except above Subjective calm in bed sleepy Objective Last 24 Hour Vital Signs Date Time Temp Pulse Resp B/P (MAP) Pulse Ox O2 Delivery O2 Flow Rate FiO2 03/20/20 04:00 97.9 107 22 114/75 (88) 95 03/20/20 00:00 97.7 107 19 122/75 (91) 98 03/19/20 21:00 Room Air 03/19/20 20:45 120 116/75 03/19/20 20:00 96.8 120 22 116/75 (89) 98 03/19/20 19:11 108 18 97 Room Air 21 03/19/20 16:00 98.8 113 19 131/80 (97) 96 03/19/20 11:10 97.3 107 20 131/96 (108) 99 03/19/20 09:27 127 114/85 03/19/20 09:00 Room Air Intake and Output 03/19/20 03/20/20 19:00 07:00 Intake Total 1815 ml 1705 ml Output Total 1950 ml Balance 1815 ml -245 ml Intake Free Water 190 ml 90 ml IV Total 880 ml 900 ml Tube Feeding 745 ml 715 ml Output Urine Total 1950 ml # Bowel Movements 1 Laboratory Tests 03/19/20 11:10: White Blood Count 11.7H, Red Blood Count 4.31L, Hemoglobin 8.9L, Hematocrit 29.3L, Mean Corpuscular Volume 68L, Mean Corpuscular Hemoglobin 20.6L, Mean Corpuscular Hemoglobin Concent 30.3L, Red Cell Distribution Width 13.1, Platelet Count 290, Mean Platelet Volume 8.6, Neutrophils (%) (Auto) 83.0H, Lymphocytes (%) (Auto) 10.7L, Monocytes (%) (Auto) 4.5, Eosinophils (%) (Auto) 1.5, Basophils (%) (Auto) 0.3, Sodium Level 153H, Potassium Level 3.3L, Chloride Level 116H, Carbon Dioxide Level 27, Anion Gap 11, Blood Urea Nitrogen 23H, Creatinine 1.4H, Estimat Glomerular Filtration Rate 51.4, Glucose Level 168H, Calcium Level 8.6, Phosphorus Level 2.5, Magnesium Level 2.1, Total Bilirubin 0.4, Aspartate Amino Transf (AST/SGOT) 21, Alanine Aminotransferase ( ALT/SGPT) 20, Alkaline Phosphatase 75, Total Protein 7.6, Albumin 2.2L, Globulin 5.4, Albumin/Globulin Ratio 0.4L Height (Feet): 5 Height (Inches): 7.00 Weight (Pounds): 170 General Appearance: lethargic EENT: normal ENT inspection Neck: normal alignment Cardiovascular: normal peripheral pulses, normal rate, regular rhythm Respiratory/Chest: chest wall non-tender, lungs clear, normal breath sounds Abdomen: normal bowel sounds, non tender, soft Extremities: normal inspection Edema: no edema noted Arm (L), no edema noted Arm (R), no edema noted Leg (L), no edema noted Leg (R), no edema noted Pedal (L), no edema noted Pedal (R), no edema noted Generalized Neurologic: motor weakness Skin: normal pigmentation, warm/dry Donaldo Johnson DO Mar 20, 2020 08:39
--- NOTE | 2020-03-20 09:41 | Infectious Diseases Prog Note ---
Assessment/Plan 64yo with: Afebrile Tachycardia Hyperglycemia R/o sepsis Leukocytosis to 13, improving Pyuria, UTI 03/12 BCx NTD 03/12 CXR w/ low long volumes and bronchovascular crowding 03/13 UA +WBC, UCx +ESBL E.coli (R-levoflox, R-bactrim) MRSA nares neg COVID rapid Ag neg 03/12 H/o COVID 3 months ago CKD, Cr 2.0 ?Heart failure vs vol OL, BNP 791 PMH/PSH: CVA, seizure disorder, cerebral palsy, COPD, hypertension, dysphagia, feeding by G-tube, schizophrenia Plan: Cont meropenem # 6/7 for ESBL E.coli UTI 03/15 SP vanco #1, Zosyn #2 Trend WBC Trend Cr Monitor CBC/BMP Monitor resp status Monitor hemodynamics Thank you for this consult. [facility] will continue to follow. Subjective Allergies: Coded Allergies: NO KNOWN DRUG ALLERGIES (Unverified Allergy, Unknown, 07/16/19) afebrile Objective Last 24 Hour Vital Signs Date Time Temp Pulse Resp B/P (MAP) Pulse Ox O2 Delivery O2 Flow Rate FiO2 03/20/20 04:00 97.9 107 22 114/75 (88) 95 03/20/20 00:00 97.7 107 19 122/75 (91) 98 03/19/20 21:00 Room Air 03/19/20 20:45 120 116/75 03/19/20 20:00 96.8 120 22 116/75 (89) 98 03/19/20 19:11 108 18 97 Room Air 21 03/19/20 16:00 98.8 113 19 131/80 (97) 96 03/19/20 11:10 97.3 107 20 131/96 (108) 99 Height (Feet): 5 Height (Inches): 7.00 Weight (Pounds): 170 HEENT: atraumatic Respiratory/Chest: lungs clear Cardiovascular: regular rhythm Abdomen: soft, non tender Laboratory Tests Test 03/19/20 11:10 White Blood Count 11.7 K/UL (4.8-10.8) H Red Blood Count 4.31 M/UL (4.70-6.10) L Hemoglobin 8.9 G/DL (14.2-18.0) L Hematocrit 29.3 % (42.0-52.0) L Mean Corpuscular Volume 68 FL (80-99) L Mean Corpuscular Hemoglobin 20.6 PG (27.0-31.0) L Mean Corpuscular Hemoglobin Concent 30.3 G/DL (32.0-36.0) L Red Cell Distribution Width 13.1 % (11.6-14.8) Platelet Count 290 K/UL (150-450) Mean Platelet Volume 8.6 FL (6.5-10.1) Neutrophils (%) (Auto) 83.0 % (45.0-75.0) H Lymphocytes (%) (Auto) 10.7 % (20.0-45.0) L Monocytes (%) (Auto) 4.5 % (1.0-10.0) Eosinophils (%) (Auto) 1.5 % (0.0-3.0) Basophils (%) (Auto) 0.3 % (0.0-2.0) Sodium Level 153 MMOL/L (136-145) H Potassium Level 3.3 MMOL/L (3.5-5.1) L Chloride Level 116 MMOL/L (98-107) H Carbon Dioxide Level 27 MMOL/L (21-32) Anion Gap 11 mmol/L (5-15) Blood Urea Nitrogen 23 mg/dL (7-18) H Creatinine 1.4 MG/DL (0.55-1.30) H Estimat Glomerular Filtration Rate 51.4 mL/min (>60) Glucose Level 168 MG/DL (74-106) H Calcium Level 8.6 MG/DL (8.5-10.1) Phosphorus Level 2.5 MG/DL (2.5-4.9) Magnesium Level 2.1 MG/DL (1.8-2.4) Total Bilirubin 0.4 MG/DL (0.2-1.0) Aspartate Amino Transf (AST/SGOT) 21 U/L (15-37) Alanine Aminotransferase (ALT/SGPT) 20 U/L (12-78) Alkaline Phosphatase 75 U/L (46-116) Total Protein 7.6 G/DL (6.4-8.2) Albumin 2.2 G/DL (3.4-5.0) L Globulin 5.4 g/dL Albumin/Globulin Ratio 0.4 (1.0-2.7) L Current Medications Medications (Trade) Dose Ordered Sig/Monalisa Route PRN Reason Start Time Stop Time Status Last Admin Dose Admin Acetaminophen (Tylenol) 325 mg Q4H PRN GT Mild Pain(Pain Scale1-3)/fever 03/16/20 09:00 04/12/20 08:59 Ascorbic Acid (Vitamin C) 500 mg TWICE A DAY GT 03/16/20 09:00 04/12/20 17:59 03/19/20 17:16 Bisacodyl (Dulcolax) 10 mg BID PRN RECTAL Constipation 03/19/20 03:15 06/17/20 03:14 03/19/20 17:16 Dextrose 1,000 ml @ 75 mls/hr [id number] IV 03/16/20 10:00 04/15/20 09:59 03/20/20 01:47 Dextrose (Dextrose 50%) 25 ml Q30M PRN IV Hypoglycemia 03/16/20 09:00 06/11/20 08:59 Dextrose (Dextrose 50%) 50 ml Q30M PRN IV Hypoglycemia 03/16/20 09:00 06/11/20 08:59 Docusate Sodium (Colace) 100 mg BID GT 03/19/20 09:00 04/18/20 08:59 03/19/20 17:16 Finasteride (Proscar) 5 mg DAILY ORAL 03/16/20 13:00 06/12/20 12:59 03/19/20 09:27 Heparin Sodium (Porcine) (Heparin 5000 units/ml) 5,000 units EVERY 12 HOURS SUBQ 03/16/20 09:00 04/27/20 20:59 03/19/20 20:48 Insulin Aspart (NovoLOG) Q6HR SUBQ 03/16/20 12:00 06/11/20 05:59 03/20/20 06:26 Lansoprazole (Prevacid) 30 mg Q12HR GT 03/16/20 09:30 04/13/20 09:29 03/19/20 20:45 Levetiracetam (Keppra) 1,000 mg Q12HR GT 03/16/20 09:00 04/27/20 12:59 03/19/20 20:45 Lorazepam (Ativan 2mg/ml 1ml) 1 mg Q4H PRN IV Agitation 03/19/20 08:00 03/26/20 07:59 03/19/20 09:28 Magnesium Hydroxide (Mom) 30 ml TID PRN GT Constipation 03/19/20 04:15 04/18/20 04:14 03/19/20 09:27 Meropenem 1 gm/ Sodium Chloride 55 ml @ 110 mls/hr Q8HR IVPB 03/16/20 14:00 03/20/20 13:59 03/20/20 05:42 Metoprolol Tartrate (Lopressor) 25 mg Q12HR GT 03/16/20 09:00 06/11/20 20:59 03/19/20 20:45 Ondansetron HCl (Zofran) 4 mg Q6H PRN GT Nausea & Vomiting 03/16/20 09:00 04/12/20 08:59 Potassium Chloride (K-Dur) 40 meq TWICE A DAY GT 03/19/20 18:00 06/15/20 08:59 03/19/20 17:16 Risperidone (RisperDAL) 1 mg BID GT 03/19/20 18:00 04/27/20 20:59 03/19/20 17:16 Pito Song MD Mar 20, 2020 09:41
--- NOTE | 2020-03-20 09:49 | Surgery Progress Note ---
Surgery Progress Note Subjective Additional Comments leukocytosis h/h stable no acute events comfortable tube feeds Objective Last 24 Hour Vital Signs Date Time Temp Pulse Resp B/P (MAP) Pulse Ox O2 Delivery O2 Flow Rate FiO2 03/20/20 04:00 97.9 107 22 114/75 (88) 95 03/20/20 00:00 97.7 107 19 122/75 (91) 98 03/19/20 21:00 Room Air 03/19/20 20:45 120 116/75 03/19/20 20:00 96.8 120 22 116/75 (89) 98 03/19/20 19:11 108 18 97 Room Air 21 03/19/20 16:00 98.8 113 19 131/80 (97) 96 03/19/20 11:10 97.3 107 20 131/96 (108) 99 I&O Intake and Output 03/19/20 03/20/20 19:00 07:00 Intake Total 1815 ml 1705 ml Output Total 1950 ml Balance 1815 ml -245 ml Intake Free Water 190 ml 90 ml IV Total 880 ml 900 ml Tube Feeding 745 ml 715 ml Output Urine Total 1950 ml # Bowel Movements 1 Dressing: other Wound: other Drains: other Cardiovascular: RSR Respiratory: decreased breath sounds Abdomen: soft, non-tender, present bowel sounds Extremities: no tenderness, no cyanosis Laboratory Tests Test 03/19/20 11:10 White Blood Count 11.7 K/UL (4.8-10.8) H Red Blood Count 4.31 M/UL (4.70-6.10) L Hemoglobin 8.9 G/DL (14.2-18.0) L Hematocrit 29.3 % (42.0-52.0) L Mean Corpuscular Volume 68 FL (80-99) L Mean Corpuscular Hemoglobin 20.6 PG (27.0-31.0) L Mean Corpuscular Hemoglobin Concent 30.3 G/DL (32.0-36.0) L Red Cell Distribution Width 13.1 % (11.6-14.8) Platelet Count 290 K/UL (150-450) Mean Platelet Volume 8.6 FL (6.5-10.1) Neutrophils (%) (Auto) 83.0 % (45.0-75.0) H Lymphocytes (%) (Auto) 10.7 % (20.0-45.0) L Monocytes (%) (Auto) 4.5 % (1.0-10.0) Eosinophils (%) (Auto) 1.5 % (0.0-3.0) Basophils (%) (Auto) 0.3 % (0.0-2.0) Sodium Level 153 MMOL/L (136-145) H Potassium Level 3.3 MMOL/L (3.5-5.1) L Chloride Level 116 MMOL/L (98-107) H Carbon Dioxide Level 27 MMOL/L (21-32) Anion Gap 11 mmol/L (5-15) Blood Urea Nitrogen 23 mg/dL (7-18) H Creatinine 1.4 MG/DL (0.55-1.30) H Estimat Glomerular Filtration Rate 51.4 mL/min (>60) Glucose Level 168 MG/DL (74-106) H Calcium Level 8.6 MG/DL (8.5-10.1) Phosphorus Level 2.5 MG/DL (2.5-4.9) Magnesium Level 2.1 MG/DL (1.8-2.4) Total Bilirubin 0.4 MG/DL (0.2-1.0) Aspartate Amino Transf (AST/SGOT) 21 U/L (15-37) Alanine Aminotransferase (ALT/SGPT) 20 U/L (12-78) Alkaline Phosphatase 75 U/L (46-116) Total Protein 7.6 G/DL (6.4-8.2) Albumin 2.2 G/DL (3.4-5.0) L Globulin 5.4 g/dL Albumin/Globulin Ratio 0.4 (1.0-2.7) L Plan Problems: (1) Sepsis (2) JULIO CÉSAR (acute kidney injury) (3) Tachycardia (4) Diabetes (5) Schizophrenia (6) Seizure disorder (7) Hyperosmolar coma (8) OBS (organic brain syndrome) (9) UTI (urinary tract infection) (10) Adrenal insufficiency (11) Hypertension (12) ARF (acute renal failure) (13) Severe sepsis (14) Diabetes mellitus out of control (15) Feeding by G-tube Assessment & Plan: DAILY ESTIMATED NEEDS: Needs based on DM, 69.5kg 25-30 kcals/kg 7413-2501 total kcals 1.25-1.5 g protein/kg 87-104 g total protein 25-30 mL/kg 1442-1830 total fluid mLs NUTRITION DIAGNOSIS: * Swallowing difficulty R/T dysphagia, hx CVA as evidenced by pt h/o PEG, now on GT feeds without oral grat. CURRENT TF:Glucerna 1.2 @50ml/hr x 24 hrs ENTERAL NUTRITION RECOMMENDATIONS: Glucerna 1.2 @65ml/hr x24 hrs to provide 1560ml, 1872 kcal, 94g pro, 1256ml free H20 - Rec to increase goal rate and run time to better meet est needs - Flush per MD. HOB over 30 degrees ADDITIONAL RECOMMENDATIONS: 1) Calibrated bed scale for accurate wts 2) TF recs as above, pt would benefit from increased insulin coverage Continue to monitor BG, lytes (K low 3.3) 3) Increase water flushes (elev na and BUN) -> rec increased water flushes instead of D5 IVF for BG control. 4) Wound Care: continue Vit C, add Rashid BID via GT (mix w/ 4oz H2O) (16) C. 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 An Area of non-Blanchable erythema without induration noted to R trochanter.(L) 5.5cm x (W)4.4cm. Scattered areas of hyperpigmentation with hypertrophic scar noted to sacrum and buttocks. Darker skin tone without erythema noted to scrotum and perineum. Contractures bilat lower extremities. Non-Blanchable erythema lateral L Tibia(L) 11.5cm x (W)1cm. Two small partial thickness wounds noted to web space of L 2nd metatarsal. Full Thickness Pressure injury R Heel (L)4cm x (W)5.2cm x (D)0.1cm. Base of wound is 40% necrotic ,60% pink with scattered Biofilm.No odor noted. Small amt serous exudate noted. Non-blanchable erythema periwound with dry loose skin. Unstageable Pressure injury Dorsal R 2nd Metatarsal.1.2cm x (W)1.5cm. Base of wound is 100% slough with erythematous borders and periwound. No odor or exudate noted. Tx.Plan: Apply Moisture Barrier Paste to Sacrum. Cover with Optifoam drsg. Change every 3 days and prn. Apply Moisture Barrier Paste to Scrotum and Perineum with each incontinence care. Apply Cavilon Skin Barrier to Bilat Hips/Trochanteric areas. Cover each site with Optifoam drsg. Change every 7 days and prn. Apply Betadine to R and L Foot wounds. Cover with Optifoam drsgs every 3 days and prn. Reposition at least every 2hours or as tolerated. Place Pillow between knees. Off-load heel with Pillow. APM/EDELMIRA Mattress. (19) Suspected COVID-19 virus infection (20) COPD (chronic obstructive pulmonary disease) (21) Fever (22) Parkinson disease (23) BPH (benign prostatic hyperplasia) Ziyad Bolaños Mar 20, 2020 09:49
[2020-03-20] MEDS: Docusate 100mg/10ml Liq GT SCH ×2 (09:59→18:03)
[2020-03-20] MEDS: levETIRAcetam 500mg/5ml Liquid GT SCH ×2 (09:59→21:15)
[2020-03-20] MEDS: Ascorbic Acid 500mg tab GT SCH ×2 (09:59→18:03)
[2020-03-20] MEDS: Heparin 5000 units/ml inj SUBQ SCH ×2 (10:05→21:16)
--- NOTE | 2020-03-20 11:08 | Nephrology Progress Note ---
Assessment/Plan Problem List: (1) JULIO CÉSAR (acute kidney injury) (2) Dehydration (3) UTI (urinary tract infection) (4) Severe sepsis (5) Feeding by G-tube (6) Diabetes mellitus out of control (7) Seizure disorder Assessment Acute renal failure, patient presents with serum creatinine of 2 Dehydration, electrolyte imbalances Sepsis, UTI Diabetes mellitus [id number] Hypertension COPD, aspiration risk History of CVA, seizure disorder Cerebral palsy Protein calorie malnutrition Suspected COVID-19 virus infection Schizophrenia BPH G-tube feeding History of Parkinson's disease Plan March 20: No labs done today. Renal parameters stable. Continue to monitor electrolytes. Check labs tomorrow. March 19: Labs reviewed. Potassium supplements dosages increased. Continue D5W IV fluid. Continue to monitor electrolytes. March 18: No labs drawn today. Will check electrolytes and renal parameters tomorrow. Continue per consultants. March 17: Labs reviewed. Serum sodium declining. Potassium supplement given. Continue per consultants. Serum creatinine is higher to 1.5 today. Will continue to monitor renal parameters March 16: No labs drawn today. Patient on D5W IV fluid. Will check labs tomorrow. Continue per consultants. March 15: Serum creatinine to baseline. Labs reviewed. Sodium remains elevated and potassium remains low. Continue half-normal saline hypotonic IV fluid hydration with IV potassium chloride. Per orders. Previous suggestions: Hydrate, free water via GT for hypernatremia Potassium supplement Adjust blood pressure medication as the patient is hypotensive Albumin bolus Anemia work-up Monitor renal parameters Avoid nephrotoxic's Per orders Subjective ROS Limited/Unobtainable: Yes Objective Objective Last 24 Hour Vital Signs Date Time Temp Pulse Resp B/P (MAP) Pulse Ox O2 Delivery O2 Flow Rate FiO2 03/20/20 09:00 117 117/88 03/20/20 08:00 97.8 117 20 117/88 (98) 96 03/20/20 07:45 113 18 97 Room Air 21 03/20/20 04:00 97.9 107 22 114/75 (88) 95 03/20/20 00:00 97.7 107 19 122/75 (91) 98 03/19/20 21:00 Room Air 03/19/20 20:45 120 116/75 03/19/20 20:00 96.8 120 22 116/75 (89) 98 03/19/20 19:11 108 18 97 Room Air 21 03/19/20 16:00 98.8 113 19 131/80 (97) 96 03/19/20 11:10 97.3 107 20 131/96 (108) 99 Intake and Output 03/19/20 03/20/20 19:00 07:00 Intake Total 1815 ml 1705 ml Output Total 1950 ml Balance 1815 ml -245 ml Intake Free Water 190 ml 90 ml IV Total 880 ml 900 ml Tube Feeding 745 ml 715 ml Output Urine Total 1950 ml # Bowel Movements 1 Laboratory Tests 03/19/20 11:10: White Blood Count 11.7H, Red Blood Count 4.31L, Hemoglobin 8.9L, Hematocrit 29.3L, Mean Corpuscular Volume 68L, Mean Corpuscular Hemoglobin 20.6L, Mean Corpuscular Hemoglobin Concent 30.3L, Red Cell Distribution Width 13.1, Platelet Count 290, Mean Platelet Volume 8.6, Neutrophils (%) (Auto) 83.0H, Lymphocytes (%) (Auto) 10.7L, Monocytes (%) (Auto) 4.5, Eosinophils (%) (Auto) 1.5, Basophils (%) (Auto) 0.3, Sodium Level 153H, Potassium Level 3.3L, Chloride Level 116H, Carbon Dioxide Level 27, Anion Gap 11, Blood Urea Nitrogen 23H, Creatinine 1.4H, Estimat Glomerular Filtration Rate 51.4, Glucose Level 168H, Calcium Level 8.6, Phosphorus Level 2.5, Magnesium Level 2.1, Total Bilirubin 0.4, Aspartate Amino Transf (AST/SGOT) 21, Alanine Aminotransferase ( ALT/SGPT) 20, Alkaline Phosphatase 75, Total Protein 7.6, Albumin 2.2L, Globulin 5.4, Albumin/Globulin Ratio 0.4L Height (Feet): 5 Height (Inches): 7.00 Weight (Pounds): 170 General Appearance: no apparent distress, lethargic Cardiovascular: tachycardia Respiratory/Chest: decreased breath sounds Abdomen: distended Xander Lake MD Mar 20, 2020 11:08
[2020-03-20 12:00] VITALS: BP 97/61
--- NOTE | 2020-03-20 14:10 | Initial Psychiatric Evaluation ---
Psychiatry Consultation Psychiatry Consultation Chief Complaint: Abnormal Labs History of Present Illness: 64 yo male who is confused and continues to be agitated. Seems less angry on the increase in his Risperdal. Seen and assessed at bedside. Allergies: Coded Allergies: NO KNOWN DRUG ALLERGIES (Unverified Allergy, Unknown, 07/16/19) Medication History Scheduled Amino Acids/Protein Hydrolys (Pro-Stat Liquid), 30 ML GT DAILY, (Reported) Ascorbic Acid* (Vitamin C*), 250 MG GT DAILY, (Reported) Docusate Sodium (Docusate Sodium), 100 MG GT TWICE A DAY, (Reported) Famotidine (Pepcid), 20 MG ORAL BEDTIME, (Reported) Finasteride* (Proscar*), 5 MG GT DAILY, (Reported) Lacosamide (Vimpat), 100 MG GT BID, (Reported) Levetiracetam (Keppra), 20 ML GT BID, (Reported) Magnesium Hydroxide (Milk of Magnesia), 30 ML GT BEDTIME, (Reported) Multivitamin Liquid* (Multi-Delyn*), 5 ML GT DAILY, (Reported) Risperidone* (Risperdal*), 1 MG GT BID, (Reported) Scheduled PRN Acetaminophen* (Acetaminophen 325MG Tablet*), 650 MG GT Q4H PRN for Fever/ Headache/Mild Pain, (Reported) Na Phos,M-B/Na Phos,Di-Ba* (Fleet Enema*), 133 ML RECTAL DAILY PRN for Constipation, (Reported) Nitroglycerin (Nitroglycerin), 0.4 MG SL q5mns x three doses PRN for chest pain, (Reported) Ondansetron* (Zofran*), 4 MG GT Q6H PRN for Nausea & Vomiting, (Reported) Polyethylene Glycol 3350* (Miralax*), 17 GM GT DAILY PRN for Constipation, ( Reported) Miscellaneous Medications [Santyl], 250 GM TOPIC, (Reported) Discontinued Medications Bisacodyl (Dulcolax), 10 MG RC DAILY PRN for Constipation, (Reported) Discontinued Reason: Pt stopped taking med Clotrimazole* (Lotrimin*), 1 APPLIC TOPIC TWICE A DAY, (Reported) Discontinued Reason: Pt stopped taking med Heparin Sod (Porcine) (Heparin Sodium*), 5,000 UNITS SUBQ EVERY 12 HOURS, ( Reported) Discontinued Reason: Pt stopped taking med Insulin Aspart (Novolog Flexpen), (Reported) Discontinued Reason: Pt stopped taking med Insulin Detemir (Levemir Flextouch), 15 UNIT SQ ACBREAKFAST, (Reported) Discontinued Reason: Pt stopped taking med Ipratropium/Albuterol Sulfate (DuoNeb 0.5-3(2.5)mg/3ml), 3 ML HHN Q4HR PRN for Shortness of Breath, (Reported) Discontinued Reason: Pt stopped taking med Levetiracetam (Keppra), 1,000 MG GT TID, (Reported) Discontinued Reason: Prescription changed Lorazepam* (Ativan*), 1 MG ORAL EVERY 6 HOURS PRN for Agitation, (Reported) Discontinued Reason: Pt stopped taking med Metoprolol Tartrate* (Metoprolol Tartrate*), 25 MG GT EVERY 12 HOURS, (Reported) Discontinued Reason: Pt stopped taking med Omeprazole (Omeprazole), 20 MG GT DAILY, (Reported) Discontinued Reason: Pt stopped taking med Potassium Chloride (Potassium Chloride), 40 MEQ GT BID, (Reported) Discontinued Reason: Pt stopped taking med Quercetin Dihydrate (Quercetin Dihydrate), 500 MG GT BEFORE BREAKFAST, (Reported ) Discontinued Reason: Pt stopped taking med Sennosides/Docusate Sodium (Senna Laxative Tablet), 2 EACH GT QHS, (Reported) Discontinued Reason: Pt stopped taking med Temazepam* (Restoril*), 15 MG ORAL BEDTIME, (Reported) Discontinued Reason: Pt stopped taking med Zinc Sulfate (Zinc Sulfate*), 220 MG ORAL DAILY, (Reported) Discontinued Reason: Pt stopped taking med Objective Data Height (Feet): 5 Height (Inches): 7.00 Weight (Pounds): 171 Assessment/Plan Assessment/Plan: Plan for this patient is to continue Risperdal 1 mg BID Ativan 1 every 6 hours as needed anxiety station 20 minutes of cognitive behavioral therapy well mother positive mundane thoughts (negative thus more positive thus reduced breath anxiety mood lability, chart review discussed with staff Enrrique Escudero MD Mar 20, 2020 14:10
[2020-03-20 16:00] VITALS: BP 108/71
--- NOTE | 2020-03-20 18:13 | Pulmonology Progress Note ---
Subjective ROS Limited/Unobtainable: Yes Constitutional: Reports: no symptoms HEENT: Repors: no symptoms Respiratory: Reports: no symptoms Cardiovascular: Reports: no symptoms Allergies: Coded Allergies: NO KNOWN DRUG ALLERGIES (Unverified Allergy, Unknown, 07/16/19) All Systems: reviewed and negative except above Objective Last 24 Hour Vital Signs Date Time Temp Pulse Resp B/P (MAP) Pulse Ox O2 Delivery O2 Flow Rate FiO2 03/20/20 16:00 97.7 111 18 108/71 (83) 97 03/20/20 12:00 97.2 112 20 97/61 (73) 94 03/20/20 09:00 Room Air 03/20/20 09:00 117 117/88 03/20/20 08:00 97.8 117 20 117/88 (98) 96 03/20/20 07:45 113 18 97 Room Air 21 03/20/20 04:00 97.9 107 22 114/75 (88) 95 03/20/20 00:00 97.7 107 19 122/75 (91) 98 03/19/20 21:00 Room Air 03/19/20 20:45 120 116/75 03/19/20 20:00 96.8 120 22 116/75 (89) 98 03/19/20 19:11 108 18 97 Room Air 21 Intake and Output 03/19/20 03/20/20 19:00 07:00 Intake Total 1815 ml 1875 ml Output Total 1950 ml Balance 1815 ml -75 ml Intake Free Water 190 ml 120 ml IV Total 880 ml 975 ml Tube Feeding 745 ml 780 ml Output Urine Total 1950 ml # Bowel Movements 1 General Appearance: WD/WN HEENT: normocephalic, atraumatic Respiratory: chest wall non-tender, lungs clear Cardiovascular: normal peripheral pulses, normal rate Abdomen: normal bowel sounds, soft, non tender, hyperactive bowel sounds Extremities: no cyanosis 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 Lymphatic: no neck adenopathy Laboratory Tests 03/20/20 05:37: POC Whole Blood Glucose [Pending] Current Medications Medications (Trade) Dose Ordered Sig/Monalisa Route PRN Reason Start Time Stop Time Status Last Admin Dose Admin Acetaminophen (Tylenol) 325 mg Q4H PRN GT Mild Pain(Pain Scale1-3)/fever 03/16/20 09:00 04/12/20 08:59 Ascorbic Acid (Vitamin C) 500 mg TWICE A DAY GT 03/16/20 09:00 04/12/20 17:59 03/20/20 18:03 Bisacodyl (Dulcolax) 10 mg BID PRN RECTAL Constipation 03/19/20 03:15 06/17/20 03:14 03/19/20 17:16 Dextrose 1,000 ml @ 75 mls/hr [id number] IV 03/16/20 10:00 04/15/20 09:59 03/20/20 15:32 Dextrose (Dextrose 50%) 25 ml Q30M PRN IV Hypoglycemia 03/16/20 09:00 06/11/20 08:59 Dextrose (Dextrose 50%) 50 ml Q30M PRN IV Hypoglycemia 03/16/20 09:00 06/11/20 08:59 Docusate Sodium (Colace) 100 mg BID GT 03/19/20 09:00 04/18/20 08:59 03/20/20 18:03 Finasteride (Proscar) 5 mg DAILY ORAL 03/16/20 13:00 06/12/20 12:59 03/20/20 09:59 Heparin Sodium (Porcine) (Heparin 5000 units/ml) 5,000 units EVERY 12 HOURS SUBQ 03/16/20 09:00 04/27/20 20:59 03/20/20 10:05 Insulin Aspart (NovoLOG) Q6HR SUBQ 03/16/20 12:00 06/11/20 05:59 03/20/20 12:18 Lansoprazole (Prevacid) 30 mg Q12HR GT 03/16/20 09:30 04/13/20 09:29 03/20/20 10:01 Levetiracetam (Keppra) 1,000 mg Q12HR GT 03/16/20 09:00 04/27/20 12:59 03/20/20 09:59 Lorazepam (Ativan 2mg/ml 1ml) 1 mg Q4H PRN IV Agitation 03/19/20 08:00 03/26/20 07:59 03/19/20 09:28 Magnesium Hydroxide (Mom) 30 ml TID PRN GT Constipation 03/19/20 04:15 04/18/20 04:14 03/19/20 09:27 Meropenem 1 gm/ Sodium Chloride 55 ml @ 110 mls/hr Q8HR IVPB 03/20/20 15:00 03/22/20 23:00 03/20/20 15:26 Metoprolol Tartrate (Lopressor) 25 mg Q12HR GT 03/16/20 09:00 06/11/20 20:59 03/19/20 20:45 Ondansetron HCl (Zofran) 4 mg Q6H PRN GT Nausea & Vomiting 03/16/20 09:00 04/12/20 08:59 Potassium Chloride (K-Dur) 40 meq TWICE A DAY GT 03/19/20 18:00 06/15/20 08:59 03/20/20 18:03 Risperidone (RisperDAL) 1 mg BID GT 03/19/20 18:00 04/27/20 20:59 03/20/20 18:03 Assessment/Plan Problems: (1) Sepsis (2) JULIO CÉSAR (acute kidney injury) (3) Suspected COVID-19 virus infection (4) COPD (chronic obstructive pulmonary disease) (5) Seizure disorder (6) Schizophrenia (7) BPH (benign prostatic hyperplasia) (8) Parkinson disease (9) Feeding by G-tube (10) Hypertension Assessment/Plan looks good doing better, covid negative times one Urine has >100K GNB continue iv abx check sensitivity of GNB iv fluids check electrolytes dvt prophylaxis Lucie Gracia MD Mar 20, 2020 18:13
[2020-03-20 20:00] VITALS: BP 104/71
[2020-03-21] VITALS: BP 123/77
[2020-03-21 04:00] VITALS: BP 104/77
[2020-03-21] MEDS: Meropenem 1 GM in NS 55 ML IVPB SCH ×2 (05:12→13:23)
[2020-03-21] MEDS: NovoLOG Insulin Flexpen SUBQ SCH ×3 (06:01→17:17)
[2020-03-21 07:02] LABS: BASOPHILS % (AUTO) 0.6 % (0.0-2.0); HEMATOCRIT 29.3 % (42.0-52.0); HEMOGLOBIN 8.9 G/DL (14.2-18.0); LYMPHOCYTES % (AUTO) 19.9 % (20.0-45.0); MEAN CORPUSCULAR VOLUME 68 FL (80-99); MONOCYTES % (AUTO) 6.5 % (1.0-10.0); PLATELET COUNT 279 K/UL (150-450); RED BLOOD COUNT 4.29 M/UL (4.70-6.10); RED CELL DISTRIBUTION WIDTH 13.2 % (11.6-14.8); WHITE BLOOD COUNT 9.5 K/UL (4.8-10.8)
[2020-03-21 08:00] VITALS: BP 110/70
[2020-03-21 08:03] LABS: ALANINE AMINOTRANSFERASE 12 U/L (12-78); ALBUMIN 2.4 G/DL (3.4-5.0); ALBUMIN/GLOBULIN RATIO 0.4 (1.0-2.7); ALKALINE PHOSPHATASE 86 U/L (46-116); ANION GAP 14 mmol/L (5-15); ASPARTATE AMINO TRANSFERASE 17 U/L (15-37); BILIRUBIN,TOTAL 0.4 MG/DL (0.2-1.0); BLOOD UREA NITROGEN 20 mg/dL (7-18); CALCIUM 9.7 MG/DL (8.5-10.1); CARBON DIOXIDE 26 MMOL/L (21-32); CHLORIDE 115 MMOL/L (98-107); CREATININE 1.3 MG/DL (0.55-1.30); PHOSPHORUS 3.3 MG/DL (2.5-4.9); POTASSIUM 3.8 MMOL/L (3.5-5.1); SODIUM 155 MMOL/L (136-145)
--- NOTE | 2020-03-21 08:09 | Initial Psychiatric Evaluation ---
Psychiatry Consultation Psychiatry Consultation Chief Complaint: Abnormal Labs History of Present Illness: 64-year-old male patient is skeletal psychomotor agitation irritability he was admitted due to abnormal labs but he also has a number of other medical problems this patient is confused disorganized and he has a lot of psychomotor agitation and irritability as well trying to pull out lines very agitated refusing or resistant to treatment at times despite requires further mood stabilization and modification of his medications Mental status examination; this is a 64-year-old male his appearance disheveled he is at his regular agitated affect cardioselective intellect poor mood depressed anxious motor activity psychomotor agitation attention is poor orientation x2 speech is low volume slurred process thought process disorganized and illogical Allergies: Coded Allergies: NO KNOWN DRUG ALLERGIES (Unverified Allergy, Unknown, 07/16/19) Medication History Scheduled Amino Acids/Protein Hydrolys (Pro-Stat Liquid), 30 ML GT DAILY, (Reported) Ascorbic Acid* (Vitamin C*), 250 MG GT DAILY, (Reported) Docusate Sodium (Docusate Sodium), 100 MG GT TWICE A DAY, (Reported) Famotidine (Pepcid), 20 MG ORAL BEDTIME, (Reported) Finasteride* (Proscar*), 5 MG GT DAILY, (Reported) Lacosamide (Vimpat), 100 MG GT BID, (Reported) Levetiracetam (Keppra), 20 ML GT BID, (Reported) Magnesium Hydroxide (Milk of Magnesia), 30 ML GT BEDTIME, (Reported) Multivitamin Liquid* (Multi-Delyn*), 5 ML GT DAILY, (Reported) Risperidone* (Risperdal*), 1 MG GT BID, (Reported) Scheduled PRN Acetaminophen* (Acetaminophen 325MG Tablet*), 650 MG GT Q4H PRN for Fever/ Headache/Mild Pain, (Reported) Na Phos,M-B/Na Phos,Di-Ba* (Fleet Enema*), 133 ML RECTAL DAILY PRN for Constipation, (Reported) Nitroglycerin (Nitroglycerin), 0.4 MG SL q5mns x three doses PRN for chest pain, (Reported) Ondansetron* (Zofran*), 4 MG GT Q6H PRN for Nausea & Vomiting, (Reported) Polyethylene Glycol 3350* (Miralax*), 17 GM GT DAILY PRN for Constipation, ( Reported) Miscellaneous Medications [Santyl], 250 GM TOPIC, (Reported) Discontinued Medications Bisacodyl (Dulcolax), 10 MG RC DAILY PRN for Constipation, (Reported) Discontinued Reason: Pt stopped taking med Clotrimazole* (Lotrimin*), 1 APPLIC TOPIC TWICE A DAY, (Reported) Discontinued Reason: Pt stopped taking med Heparin Sod (Porcine) (Heparin Sodium*), 5,000 UNITS SUBQ EVERY 12 HOURS, ( Reported) Discontinued Reason: Pt stopped taking med Insulin Aspart (Novolog Flexpen), (Reported) Discontinued Reason: Pt stopped taking med Insulin Detemir (Levemir Flextouch), 15 UNIT SQ ACBREAKFAST, (Reported) Discontinued Reason: Pt stopped taking med Ipratropium/Albuterol Sulfate (DuoNeb 0.5-3(2.5)mg/3ml), 3 ML HHN Q4HR PRN for Shortness of Breath, (Reported) Discontinued Reason: Pt stopped taking med Levetiracetam (Keppra), 1,000 MG GT TID, (Reported) Discontinued Reason: Prescription changed Lorazepam* (Ativan*), 1 MG ORAL EVERY 6 HOURS PRN for Agitation, (Reported) Discontinued Reason: Pt stopped taking med Metoprolol Tartrate* (Metoprolol Tartrate*), 25 MG GT EVERY 12 HOURS, (Reported) Discontinued Reason: Pt stopped taking med Omeprazole (Omeprazole), 20 MG GT DAILY, (Reported) Discontinued Reason: Pt stopped taking med Potassium Chloride (Potassium Chloride), 40 MEQ GT BID, (Reported) Discontinued Reason: Pt stopped taking med Quercetin Dihydrate (Quercetin Dihydrate), 500 MG GT BEFORE BREAKFAST, (Reported ) Discontinued Reason: Pt stopped taking med Sennosides/Docusate Sodium (Senna Laxative Tablet), 2 EACH GT QHS, (Reported) Discontinued Reason: Pt stopped taking med Temazepam* (Restoril*), 15 MG ORAL BEDTIME, (Reported) Discontinued Reason: Pt stopped taking med Zinc Sulfate (Zinc Sulfate*), 220 MG ORAL DAILY, (Reported) Discontinued Reason: Pt stopped taking med Objective Data Height (Feet): 5 Height (Inches): 7.00 Weight (Pounds): 171 Assessment/Plan Assessment/Plan: Plan for this patient is to continue Risperdal 1 mg BID Ativan 1 every 6 hours as needed anxiety station 20 minutes of cognitive behavioral therapy well mother positive mundane thoughts (negative thus more positive thus reduced breath anxiety mood lability, chart review discussed with staff Enrrique Escudero MD Mar 21, 2020 08:09
--- NOTE | 2020-03-21 09:39 | General Progress Note ---
Assessment/Plan Problem List: (1) Urine retention ICD Codes: R33.9 - Retention of urine, unspecified SNOMED: 762303273 (2) BPH (benign prostatic hyperplasia) ICD Codes: N40.0 - Benign prostatic hyperplasia without lower urinary tract symptoms SNOMED: 874827783 (3) BPH (benign prostatic hyperplasia) ICD Codes: N40.0 - Benign prostatic hyperplasia without lower urinary tract symptoms SNOMED: 503735450 (4) Sepsis ICD Codes: A41.9 - Sepsis, unspecified organism SNOMED: 32608246 Status: stable, progressing Assessment/Plan: pt diet abx dc if clear Subjective Constitutional: Reports: weakness Allergies: Coded Allergies: NO KNOWN DRUG ALLERGIES (Unverified Allergy, Unknown, 07/16/19) All Systems: reviewed and negative except above Subjective calm in bed sleepy Objective Last 24 Hour Vital Signs Date Time Temp Pulse Resp B/P (MAP) Pulse Ox O2 Delivery O2 Flow Rate FiO2 03/21/20 09:00 100 110/70 03/21/20 08:00 97.3 100 18 110/70 (83) 96 03/21/20 04:00 97.0 106 17 104/77 (86) 95 03/21/20 00:00 97.0 112 18 123/77 (92) 98 03/20/20 21:39 Room Air 03/20/20 21:14 111 108/71 03/20/20 20:00 97.2 114 18 104/71 (82) 97 03/20/20 16:00 97.7 111 18 108/71 (83) 97 03/20/20 12:00 97.2 112 20 97/61 (73) 94 Intake and Output 03/20/20 03/21/20 19:00 07:00 Intake Total 1085 ml 770 ml Output Total 1800 ml 600 ml Balance -715 ml 170 ml Intake Free Water 150 ml 120 ml IV Total 675 ml Tube Feeding 260 ml 650 ml Output Urine Total 1800 ml 600 ml Laboratory Tests 03/21/20 06:05: White Blood Count 9.5, Red Blood Count 4.29L, Hemoglobin 8.9L, Hematocrit 29.3L , Mean Corpuscular Volume 68L, Mean Corpuscular Hemoglobin 20.7L, Mean Corpuscular Hemoglobin Concent 30.3L, Red Cell Distribution Width 13.2, Platelet Count 279, Mean Platelet Volume 8.6, Neutrophils (%) (Auto) 68.0, Lymphocytes (%) (Auto) 19.9L, Monocytes (%) (Auto) 6.5, Eosinophils (%) (Auto) 5.0H, Basophils (%) (Auto) 0.6, Sodium Level 155H, Potassium Level 3.8, Chloride Level 115H, Carbon Dioxide Level 26, Anion Gap 14, Blood Urea Nitrogen 20H, Creatinine 1.3, Estimat Glomerular Filtration Rate 55.9, Glucose Level 181H , Calcium Level 9.7, Phosphorus Level 3.3, Magnesium Level 2.2, Total Bilirubin 0.4, Aspartate Amino Transf (AST/SGOT) 17, Alanine Aminotransferase (ALT/SGPT) 12, Alkaline Phosphatase 86, C-Reactive Protein, Quantitative 11.8H, Total Protein 8.4H, Albumin 2.4L, Globulin 6.0, Albumin/Globulin Ratio 0.4L Height (Feet): 5 Height (Inches): 7.00 Weight (Pounds): 171 General Appearance: lethargic EENT: normal ENT inspection Neck: normal alignment Cardiovascular: normal peripheral pulses, normal rate, regular rhythm Respiratory/Chest: chest wall non-tender, lungs clear, normal breath sounds Abdomen: normal bowel sounds, non tender, soft Extremities: normal inspection Edema: no edema noted Arm (L), no edema noted Arm (R), no edema noted Leg (L), no edema noted Leg (R), no edema noted Pedal (L), no edema noted Pedal (R), no edema noted Generalized Neurologic: motor weakness Skin: normal pigmentation, warm/dry Donaldo Johnson DO Mar 21, 2020 09:39
[2020-03-21] MEDS: Ascorbic Acid 500mg tab GT SCH ×2 (09:45→17:16)
[2020-03-21] MEDS: Docusate 100mg/10ml Liq GT SCH ×2 (09:47→17:15)
[2020-03-21] MEDS: levETIRAcetam 500mg/5ml Liquid GT SCH (09:47)
[2020-03-21] MEDS: Heparin 5000 units/ml inj SUBQ SCH (09:50)
[2020-03-21] MEDS ORDERED: ASCORBIC ACID500 MG GT (10:23)
[2020-03-21] MEDS ORDERED: DULCOLAX10 MG RC (10:24)
[2020-03-21] MEDS ORDERED: HEPARIN SO5000 UNIT2 SUBQ (10:25)
[2020-03-21] MEDS ORDERED: NOVOLOG100 UNITS1 (10:26)
[2020-03-21] MEDS ORDERED: LANSOPRAZOLE30 MG GT (10:28)
[2020-03-21] MEDS ORDERED: KEPPRA1000 MG GT (10:29)
[2020-03-21] MEDS ORDERED: METOPROLOL TART25 MG GT (10:30)
[2020-03-21] MEDS ORDERED: K-TAB ER20 MEQ GT (10:31)
[2020-03-21 12:00] VITALS: BP 114/72
--- NOTE | 2020-03-21 12:18 | Surgery Progress Note ---
Surgery Progress Note Subjective Symptoms: improved, tolerating diet, voiding well, passing flatus Objective Last 24 Hour Vital Signs Date Time Temp Pulse Resp B/P (MAP) Pulse Ox O2 Delivery O2 Flow Rate FiO2 03/21/20 09:46 100 110/70 03/21/20 09:00 Room Air 03/21/20 09:00 100 110/70 03/21/20 08:00 97.3 100 18 110/70 (83) 96 03/21/20 04:00 97.0 106 17 104/77 (86) 95 03/21/20 00:00 97.0 112 18 123/77 (92) 98 03/20/20 21:39 Room Air 03/20/20 21:14 111 108/71 03/20/20 20:00 97.2 114 18 104/71 (82) 97 03/20/20 16:00 97.7 111 18 108/71 (83) 97 I&O Intake and Output 03/20/20 03/21/20 19:00 07:00 Intake Total 1505 ml 835 ml Output Total 1800 ml 600 ml Balance -295 ml 235 ml Intake Free Water 180 ml 120 ml IV Total 675 ml Tube Feeding 650 ml 715 ml Output Urine Total 1800 ml 600 ml Dressing: saturated Wound: clean Cardiovascular: RSR Respiratory: clear, decreased breath sounds Abdomen: soft, non-tender, present bowel sounds, non-distended Extremities: no tenderness, no cyanosis Laboratory Tests Test 03/20/20 18:10 03/21/20 06:05 POC Whole Blood Glucose Pending White Blood Count 9.5 K/UL (4.8-10.8) Red Blood Count 4.29 M/UL (4.70-6.10) L Hemoglobin 8.9 G/DL (14.2-18.0) L Hematocrit 29.3 % (42.0-52.0) L Mean Corpuscular Volume 68 FL (80-99) L Mean Corpuscular Hemoglobin 20.7 PG (27.0-31.0) L Mean Corpuscular Hemoglobin Concent 30.3 G/DL (32.0-36.0) L Red Cell Distribution Width 13.2 % (11.6-14.8) Platelet Count 279 K/UL (150-450) Mean Platelet Volume 8.6 FL (6.5-10.1) Neutrophils (%) (Auto) 68.0 % (45.0-75.0) Lymphocytes (%) (Auto) 19.9 % (20.0-45.0) L Monocytes (%) (Auto) 6.5 % (1.0-10.0) Eosinophils (%) (Auto) 5.0 % (0.0-3.0) H Basophils (%) (Auto) 0.6 % (0.0-2.0) Sodium Level 155 MMOL/L (136-145) H Potassium Level 3.8 MMOL/L (3.5-5.1) Chloride Level 115 MMOL/L (98-107) H Carbon Dioxide Level 26 MMOL/L (21-32) Anion Gap 14 mmol/L (5-15) Blood Urea Nitrogen 20 mg/dL (7-18) H Creatinine 1.3 MG/DL (0.55-1.30) Estimat Glomerular Filtration Rate 55.9 mL/min (>60) Glucose Level 181 MG/DL (74-106) H Calcium Level 9.7 MG/DL (8.5-10.1) Phosphorus Level 3.3 MG/DL (2.5-4.9) Magnesium Level 2.2 MG/DL (1.8-2.4) Total Bilirubin 0.4 MG/DL (0.2-1.0) Aspartate Amino Transf (AST/SGOT) 17 U/L (15-37) Alanine Aminotransferase (ALT/SGPT) 12 U/L (12-78) Alkaline Phosphatase 86 U/L (46-116) C-Reactive Protein, Quantitative 11.8 mg/dL (0.00-0.90) H Total Protein 8.4 G/DL (6.4-8.2) H Albumin 2.4 G/DL (3.4-5.0) L Globulin 6.0 g/dL Albumin/Globulin Ratio 0.4 (1.0-2.7) L Plan Problems: (1) Sepsis (2) JULIO CÉSAR (acute kidney injury) (3) Tachycardia (4) Diabetes (5) Schizophrenia (6) Seizure disorder (7) Hyperosmolar coma (8) OBS (organic brain syndrome) (9) UTI (urinary tract infection) (10) Adrenal insufficiency (11) Hypertension (12) ARF (acute renal failure) (13) Severe sepsis (14) Diabetes mellitus out of control (15) Feeding by G-tube Assessment & Plan: DAILY ESTIMATED NEEDS: Needs based on DM, 69.5kg 25-30 kcals/kg 1615-9705 total kcals 1.25-1.5 g protein/kg 87-104 g total protein 25-30 mL/kg 9432-7974 total fluid mLs NUTRITION DIAGNOSIS: * Swallowing difficulty R/T dysphagia, hx CVA as evidenced by pt h/o PEG, now on GT feeds without oral grat. CURRENT TF:Glucerna 1.2 @65ml/hr x 24 hrs ENTERAL NUTRITION RECOMMENDATIONS: Glucerna 1.2 @65ml/hr x24 hrs to provide 1560ml, 1872 kcal, 94g pro, 1256ml free H20 - Rec to increase goal rate and run time to better meet est needs - Flush per MD. HOB over 30 degrees ADDITIONAL RECOMMENDATIONS: 1) Calibrated bed scale for accurate wts 2) TF recs as above, pt would benefit from increased insulin coverage Continue to monitor BG, lytes (K low 3.3- now wnl, on Kdur) 3) Increase water flushes (elev na and BUN) -> rec increased water flushes instead of D5 IVF for BG control. 4) Wound Care: continue Vit C, add Rashid BID via GT (mix w/ 4oz H2O) (16) C. 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 An Area of non-Blanchable erythema without induration noted to R trochanter.(L) 5.5cm x (W)4.4cm. Scattered areas of hyperpigmentation with hypertrophic scar noted to sacrum and buttocks. Darker skin tone without erythema noted to scrotum and perineum. Contractures bilat lower extremities. Non-Blanchable erythema lateral L Tibia(L) 11.5cm x (W)1cm. Two small partial thickness wounds noted to web space of L 2nd metatarsal. Full Thickness Pressure injury R Heel (L)4cm x (W)5.2cm x (D)0.1cm. Base of wound is 40% necrotic ,60% pink with scattered Biofilm.No odor noted. Small amt serous exudate noted. Non-blanchable erythema periwound with dry loose skin. Unstageable Pressure injury Dorsal R 2nd Metatarsal.1.2cm x (W)1.5cm. Base of wound is 100% slough with erythematous borders and periwound. No odor or exudate noted. Tx.Plan: Apply Moisture Barrier Paste to Sacrum. Cover with Optifoam drsg. Change every 3 days and prn. Apply Moisture Barrier Paste to Scrotum and Perineum with each incontinence care. Apply Cavilon Skin Barrier to Bilat Hips/Trochanteric areas. Cover each site with Optifoam drsg. Change every 7 days and prn. Apply Betadine to R and L Foot wounds. Cover with Optifoam drsgs every 3 days and prn. Reposition at least every 2hours or as tolerated. Place Pillow between knees. Off-load heel with Pillow. APM/EDELMIRA Mattress. (19) Suspected COVID-19 virus infection (20) COPD (chronic obstructive pulmonary disease) (21) Fever (22) Parkinson disease (23) BPH (benign prostatic hyperplasia) Ziyad Bolaños Mar 21, 2020 12:18
--- NOTE | 2020-03-21 12:44 | Nephrology Progress Note ---
Assessment/Plan Problem List: (1) JULIO CÉSAR (acute kidney injury) (2) Dehydration (3) UTI (urinary tract infection) (4) Severe sepsis (5) Feeding by G-tube (6) Diabetes mellitus out of control (7) Seizure disorder Assessment Acute renal failure, patient presents with serum creatinine of 2 Dehydration, electrolyte imbalances Sepsis, UTI Diabetes mellitus [id number] Hypertension COPD, aspiration risk History of CVA, seizure disorder Cerebral palsy Protein calorie malnutrition Suspected COVID-19 virus infection Schizophrenia BPH G-tube feeding History of Parkinson's disease Plan March 21: Lab reviewed. Serum sodium higher. D5W ordered. Otherwise stable from renal standpoint of view. Continue per current plan. March 20: No labs done today. Renal parameters stable. Continue to monitor electrolytes. Check labs tomorrow. March 19: Labs reviewed. Potassium supplements dosages increased. Continue D5W IV fluid. Continue to monitor electrolytes. March 18: No labs drawn today. Will check electrolytes and renal parameters tomorrow. Continue per consultants. March 17: Labs reviewed. Serum sodium declining. Potassium supplement given. Continue per consultants. Serum creatinine is higher to 1.5 today. Will continue to monitor renal parameters March 16: No labs drawn today. Patient on D5W IV fluid. Will check labs tomorrow. Continue per consultants. March 15: Serum creatinine to baseline. Labs reviewed. Sodium remains elevated and potassium remains low. Continue half-normal saline hypotonic IV fluid hydration with IV potassium chloride. Per orders. Previous suggestions: Hydrate, free water via GT for hypernatremia Potassium supplement Adjust blood pressure medication as the patient is hypotensive Albumin bolus Anemia work-up Monitor renal parameters Avoid nephrotoxic's Per orders Subjective ROS Limited/Unobtainable: Yes Objective Objective Last 24 Hour Vital Signs Date Time Temp Pulse Resp B/P (MAP) Pulse Ox O2 Delivery O2 Flow Rate FiO2 03/21/20 09:46 100 110/70 03/21/20 09:00 Room Air 03/21/20 09:00 100 110/70 03/21/20 08:00 97.3 100 18 110/70 (83) 96 03/21/20 04:00 97.0 106 17 104/77 (86) 95 03/21/20 00:00 97.0 112 18 123/77 (92) 98 03/20/20 21:39 Room Air 03/20/20 21:14 111 108/71 03/20/20 20:00 97.2 114 18 104/71 (82) 97 03/20/20 16:00 97.7 111 18 108/71 (83) 97 Intake and Output 03/20/20 03/21/20 19:00 07:00 Intake Total 1505 ml 835 ml Output Total 1800 ml 600 ml Balance -295 ml 235 ml Intake Free Water 180 ml 120 ml IV Total 675 ml Tube Feeding 650 ml 715 ml Output Urine Total 1800 ml 600 ml Current Medications Medications (Trade) Dose Ordered Sig/Monalisa Route PRN Reason Start Time Stop Time Status Last Admin Dose Admin Acetaminophen (Tylenol) 325 mg Q4H PRN GT Mild Pain(Pain Scale1-3)/fever 03/16/20 09:00 04/12/20 08:59 Ascorbic Acid (Vitamin C) 500 mg TWICE A DAY GT 03/16/20 09:00 04/12/20 17:59 03/21/20 09:45 Bisacodyl (Dulcolax) 10 mg BID PRN RECTAL Constipation 03/19/20 03:15 06/17/20 03:14 03/19/20 17:16 Dextrose 1,000 ml @ 75 mls/hr [id number] IV 03/16/20 10:00 04/15/20 09:59 03/21/20 09:56 Dextrose (Dextrose 50%) 25 ml Q30M PRN IV Hypoglycemia 03/16/20 09:00 06/11/20 08:59 Dextrose (Dextrose 50%) 50 ml Q30M PRN IV Hypoglycemia 03/16/20 09:00 06/11/20 08:59 Docusate Sodium (Colace) 100 mg BID GT 03/19/20 09:00 04/18/20 08:59 03/21/20 09:47 Finasteride (Proscar) 5 mg DAILY ORAL 03/16/20 13:00 06/12/20 12:59 03/21/20 09:46 Heparin Sodium (Porcine) (Heparin 5000 units/ml) 5,000 units EVERY 12 HOURS SUBQ 03/16/20 09:00 04/27/20 20:59 03/21/20 09:50 Insulin Aspart (NovoLOG) Q6HR SUBQ 03/16/20 12:00 06/11/20 05:59 03/21/20 06:01 Lansoprazole (Prevacid) 30 mg Q12HR GT 03/16/20 09:30 04/13/20 09:29 03/21/20 09:45 Levetiracetam (Keppra) 1,000 mg Q12HR GT 03/16/20 09:00 04/27/20 12:59 03/21/20 09:47 Lorazepam (Ativan 2mg/ml 1ml) 1 mg Q4H PRN IV Agitation 03/19/20 08:00 03/26/20 07:59 03/19/20 09:28 Magnesium Hydroxide (Mom) 30 ml TID PRN GT Constipation 03/19/20 04:15 04/18/20 04:14 03/19/20 09:27 Meropenem 1 gm/ Sodium Chloride 55 ml @ 110 mls/hr Q8HR IVPB 03/20/20 15:00 03/22/20 23:00 03/21/20 05:12 Metoprolol Tartrate (Lopressor) 25 mg Q12HR GT 03/16/20 09:00 06/11/20 20:59 03/20/20 21:14 Ondansetron HCl (Zofran) 4 mg Q6H PRN GT Nausea & Vomiting 03/16/20 09:00 04/12/20 08:59 Potassium Chloride (K-Dur) 40 meq TWICE A DAY GT 03/19/20 18:00 06/15/20 08:59 03/21/20 09:46 Risperidone (RisperDAL) 1 mg BID GT 03/19/20 18:00 04/27/20 20:59 03/21/20 09:46 Laboratory Tests 03/20/20 18:10: POC Whole Blood Glucose [Pending] 03/21/20 06:05: White Blood Count 9.5, Red Blood Count 4.29L, Hemoglobin 8.9L, Hematocrit 29.3L , Mean Corpuscular Volume 68L, Mean Corpuscular Hemoglobin 20.7L, Mean Corpuscular Hemoglobin Concent 30.3L, Red Cell Distribution Width 13.2, Platelet Count 279, Mean Platelet Volume 8.6, Neutrophils (%) (Auto) 68.0, Lymphocytes (%) (Auto) 19.9L, Monocytes (%) (Auto) 6.5, Eosinophils (%) (Auto) 5.0H, Basophils (%) (Auto) 0.6, Sodium Level 155H, Potassium Level 3.8, Chloride Level 115H, Carbon Dioxide Level 26, Anion Gap 14, Blood Urea Nitrogen 20H, Creatinine 1.3, Estimat Glomerular Filtration Rate 55.9, Glucose Level 181H , Calcium Level 9.7, Phosphorus Level 3.3, Magnesium Level 2.2, Total Bilirubin 0.4, Aspartate Amino Transf (AST/SGOT) 17, Alanine Aminotransferase (ALT/SGPT) 12, Alkaline Phosphatase 86, C-Reactive Protein, Quantitative 11.8H, Total Protein 8.4H, Albumin 2.4L, Globulin 6.0, Albumin/Globulin Ratio 0.4L Height (Feet): 5 Height (Inches): 7.00 Weight (Pounds): 171 General Appearance: no apparent distress Cardiovascular: tachycardia Respiratory/Chest: decreased breath sounds Abdomen: distended Xander Lake MD Mar 21, 2020 12:44
--- NOTE | 2020-03-21 12:56 | Pulmonology Progress Note ---
Subjective ROS Limited/Unobtainable: No Constitutional: Reports: no symptoms HEENT: Repors: no symptoms Respiratory: Reports: no symptoms Cardiovascular: Reports: no symptoms Allergies: Coded Allergies: NO KNOWN DRUG ALLERGIES (Unverified Allergy, Unknown, 07/16/19) All Systems: reviewed and negative except above Objective Last 24 Hour Vital Signs Date Time Temp Pulse Resp B/P (MAP) Pulse Ox O2 Delivery O2 Flow Rate FiO2 03/21/20 09:46 100 110/70 03/21/20 09:00 Room Air 03/21/20 09:00 100 110/70 03/21/20 08:00 97.3 100 18 110/70 (83) 96 03/21/20 04:00 97.0 106 17 104/77 (86) 95 03/21/20 00:00 97.0 112 18 123/77 (92) 98 03/20/20 21:39 Room Air 03/20/20 21:14 111 108/71 03/20/20 20:00 97.2 114 18 104/71 (82) 97 03/20/20 16:00 97.7 111 18 108/71 (83) 97 Intake and Output 03/20/20 03/21/20 19:00 07:00 Intake Total 1505 ml 835 ml Output Total 1800 ml 600 ml Balance -295 ml 235 ml Intake Free Water 180 ml 120 ml IV Total 675 ml Tube Feeding 650 ml 715 ml Output Urine Total 1800 ml 600 ml General Appearance: WD/WN HEENT: normocephalic, atraumatic Respiratory: chest wall non-tender, lungs clear Cardiovascular: normal peripheral pulses, normal rate Abdomen: normal bowel sounds, soft, non tender, hyperactive bowel sounds Extremities: no cyanosis 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 Lymphatic: no neck adenopathy Laboratory Tests 03/20/20 18:10: POC Whole Blood Glucose [Pending] 03/21/20 06:05: White Blood Count 9.5, Red Blood Count 4.29L, Hemoglobin 8.9L, Hematocrit 29.3L , Mean Corpuscular Volume 68L, Mean Corpuscular Hemoglobin 20.7L, Mean Corpuscular Hemoglobin Concent 30.3L, Red Cell Distribution Width 13.2, Platelet Count 279, Mean Platelet Volume 8.6, Neutrophils (%) (Auto) 68.0, Lymphocytes (%) (Auto) 19.9L, Monocytes (%) (Auto) 6.5, Eosinophils (%) (Auto) 5.0H, Basophils (%) (Auto) 0.6, Sodium Level 155H, Potassium Level 3.8, Chloride Level 115H, Carbon Dioxide Level 26, Anion Gap 14, Blood Urea Nitrogen 20H, Creatinine 1.3, Estimat Glomerular Filtration Rate 55.9, Glucose Level 181H , Calcium Level 9.7, Phosphorus Level 3.3, Magnesium Level 2.2, Total Bilirubin 0.4, Aspartate Amino Transf (AST/SGOT) 17, Alanine Aminotransferase (ALT/SGPT) 12, Alkaline Phosphatase 86, C-Reactive Protein, Quantitative 11.8H, Total Protein 8.4H, Albumin 2.4L, Globulin 6.0, Albumin/Globulin Ratio 0.4L Current Medications Medications (Trade) Dose Ordered Sig/Monalisa Route PRN Reason Start Time Stop Time Status Last Admin Dose Admin Acetaminophen (Tylenol) 325 mg Q4H PRN GT Mild Pain(Pain Scale1-3)/fever 03/16/20 09:00 04/12/20 08:59 Ascorbic Acid (Vitamin C) 500 mg TWICE A DAY GT 03/16/20 09:00 04/12/20 17:59 03/21/20 09:45 Bisacodyl (Dulcolax) 10 mg BID PRN RECTAL Constipation 03/19/20 03:15 06/17/20 03:14 03/19/20 17:16 Dextrose 1,000 ml @ 75 mls/hr [id number] IV 03/16/20 10:00 04/15/20 09:59 03/21/20 09:56 Dextrose (Dextrose 50%) 25 ml Q30M PRN IV Hypoglycemia 03/16/20 09:00 06/11/20 08:59 Dextrose (Dextrose 50%) 50 ml Q30M PRN IV Hypoglycemia 03/16/20 09:00 06/11/20 08:59 Docusate Sodium (Colace) 100 mg BID GT 03/19/20 09:00 04/18/20 08:59 03/21/20 09:47 Finasteride (Proscar) 5 mg DAILY ORAL 03/16/20 13:00 06/12/20 12:59 03/21/20 09:46 Heparin Sodium (Porcine) (Heparin 5000 units/ml) 5,000 units EVERY 12 HOURS SUBQ 03/16/20 09:00 04/27/20 20:59 03/21/20 09:50 Insulin Aspart (NovoLOG) Q6HR SUBQ 03/16/20 12:00 06/11/20 05:59 03/21/20 06:01 Lansoprazole (Prevacid) 30 mg Q12HR GT 03/16/20 09:30 04/13/20 09:29 03/21/20 09:45 Levetiracetam (Keppra) 1,000 mg Q12HR GT 03/16/20 09:00 04/27/20 12:59 03/21/20 09:47 Lorazepam (Ativan 2mg/ml 1ml) 1 mg Q4H PRN IV Agitation 03/19/20 08:00 03/26/20 07:59 03/19/20 09:28 Magnesium Hydroxide (Mom) 30 ml TID PRN GT Constipation 03/19/20 04:15 04/18/20 04:14 03/19/20 09:27 Meropenem 1 gm/ Sodium Chloride 55 ml @ 110 mls/hr Q8HR IVPB 03/20/20 15:00 03/22/20 23:00 03/21/20 05:12 Metoprolol Tartrate (Lopressor) 25 mg Q12HR GT 03/16/20 09:00 06/11/20 20:59 03/20/20 21:14 Ondansetron HCl (Zofran) 4 mg Q6H PRN GT Nausea & Vomiting 03/16/20 09:00 04/12/20 08:59 Potassium Chloride (K-Dur) 40 meq TWICE A DAY GT 03/19/20 18:00 06/15/20 08:59 03/21/20 09:46 Risperidone (RisperDAL) 1 mg BID GT 03/19/20 18:00 04/27/20 20:59 03/21/20 09:46 Assessment/Plan Problems: (1) Sepsis (2) JULIO CÉSAR (acute kidney injury) (3) Suspected COVID-19 virus infection (4) COPD (chronic obstructive pulmonary disease) (5) Seizure disorder (6) Schizophrenia (7) BPH (benign prostatic hyperplasia) (8) Parkinson disease (9) Feeding by G-tube (10) Hypertension Assessment/Plan looks good doing better, covid negative times one Urine has >100K GNB continue iv abx check sensitivity of GNB iv fluids check electrolytes dvt prophylaxis Lucie Gracia MD Mar 21, 2020 12:56
--- NOTE | 2020-03-21 14:44 | Cardiac Electrophysiology PN ---
Assessment/Plan Assessment/Plan 1. Sinus tachycardia, due to sepsis, anemia, respiratory failure and lactic acidosis. Ruled out for WA. Nl EF 65%. 2. Hypertension. On metoprolol 25 mg b.i.d. 3. Lactic acidosis and sepsis, on antibiotic. 4. Dysphagia, status post G-tube placement. 5. Uncontrolled diabetes . 6. History of COVID-19 pneumonia, currently off isolation. DIXON RN OK to DC to [facility] from cardiac perspective Subjective Subjective Confused in NAD. GT feeding ongoing in NAD in restraints. DC to SNIF pending Objective Last 24 Hour Vital Signs Date Time Temp Pulse Resp B/P (MAP) Pulse Ox O2 Delivery O2 Flow Rate FiO2 03/21/20 12:00 97.5 98 18 114/72 (86) 97 03/21/20 09:46 100 110/70 03/21/20 09:00 Room Air 03/21/20 09:00 100 110/70 03/21/20 08:00 97.3 100 18 110/70 (83) 96 03/21/20 04:00 97.0 106 17 104/77 (86) 95 03/21/20 00:00 97.0 112 18 123/77 (92) 98 03/20/20 21:39 Room Air 03/20/20 21:14 111 108/71 03/20/20 20:00 97.2 114 18 104/71 (82) 97 03/20/20 16:00 97.7 111 18 108/71 (83) 97 Intake and Output 03/20/20 03/21/20 19:00 07:00 Intake Total 1505 ml 910 ml Output Total 1800 ml 600 ml Balance -295 ml 310 ml Intake Free Water 180 ml 120 ml IV Total 675 ml 75 ml Tube Feeding 650 ml 715 ml Output Urine Total 1800 ml 600 ml Laboratory Tests Test 03/20/20 18:10 03/21/20 06:05 POC Whole Blood Glucose Pending White Blood Count 9.5 K/UL (4.8-10.8) Red Blood Count 4.29 M/UL (4.70-6.10) L Hemoglobin 8.9 G/DL (14.2-18.0) L Hematocrit 29.3 % (42.0-52.0) L Mean Corpuscular Volume 68 FL (80-99) L Mean Corpuscular Hemoglobin 20.7 PG (27.0-31.0) L Mean Corpuscular Hemoglobin Concent 30.3 G/DL (32.0-36.0) L Red Cell Distribution Width 13.2 % (11.6-14.8) Platelet Count 279 K/UL (150-450) Mean Platelet Volume 8.6 FL (6.5-10.1) Neutrophils (%) (Auto) 68.0 % (45.0-75.0) Lymphocytes (%) (Auto) 19.9 % (20.0-45.0) L Monocytes (%) (Auto) 6.5 % (1.0-10.0) Eosinophils (%) (Auto) 5.0 % (0.0-3.0) H Basophils (%) (Auto) 0.6 % (0.0-2.0) Sodium Level 155 MMOL/L (136-145) H Potassium Level 3.8 MMOL/L (3.5-5.1) Chloride Level 115 MMOL/L (98-107) H Carbon Dioxide Level 26 MMOL/L (21-32) Anion Gap 14 mmol/L (5-15) Blood Urea Nitrogen 20 mg/dL (7-18) H Creatinine 1.3 MG/DL (0.55-1.30) Estimat Glomerular Filtration Rate 55.9 mL/min (>60) Glucose Level 181 MG/DL (74-106) H Calcium Level 9.7 MG/DL (8.5-10.1) Phosphorus Level 3.3 MG/DL (2.5-4.9) Magnesium Level 2.2 MG/DL (1.8-2.4) Total Bilirubin 0.4 MG/DL (0.2-1.0) Aspartate Amino Transf (AST/SGOT) 17 U/L (15-37) Alanine Aminotransferase (ALT/SGPT) 12 U/L (12-78) Alkaline Phosphatase 86 U/L (46-116) C-Reactive Protein, Quantitative 11.8 mg/dL (0.00-0.90) H Total Protein 8.4 G/DL (6.4-8.2) H Albumin 2.4 G/DL (3.4-5.0) L Globulin 6.0 g/dL Albumin/Globulin Ratio 0.4 (1.0-2.7) L Objective HEAD AND NECK: No JVD. LUNGS: Decreased breath sounds. CARDIOVASCULAR: Shows regular S1 and S2. Tachycardic. ABDOMEN: Soft. The G-tube is intact. EXTREMITIES: No pitting edema. Sage Araujo MD Mar 21, 2020 14:44
--- NOTE | 2020-03-21 15:18 | Infectious Diseases Prog Note ---
Assessment/Plan 64yo with: Afebrile Tachycardia Hyperglycemia sepsis Leukocytosis to 13, SP Pyuria, UTI 03/12 BCx NTD 03/12 CXR w/ low long volumes and bronchovascular crowding 03/13 UA +WBC, UCx +ESBL E.coli (R-levoflox, R-bactrim) MRSA nares neg COVID rapid Ag neg 03/12 H/o COVID 3 months ago CKD, Cr 2.0 ?Heart failure vs vol OL, BNP 791 PMH/PSH: CVA, seizure disorder, cerebral palsy, COPD, hypertension, dysphagia, feeding by G-tube, schizophrenia Plan: Cont meropenem # 7/ for ESBL E.coli UTI 03/15 SP vanco #1, Zosyn #2 Trend WBC Trend Cr Monitor CBC/BMP Monitor resp status Monitor hemodynamics Thank you for this consult. [facility] will continue to follow. Subjective Allergies: Coded Allergies: NO KNOWN DRUG ALLERGIES (Unverified Allergy, Unknown, 07/16/19) afebrile leukocytosis resolved discharge planning today last day of antibiotics Objective Last 24 Hour Vital Signs Date Time Temp Pulse Resp B/P (MAP) Pulse Ox O2 Delivery O2 Flow Rate FiO2 03/21/20 12:00 97.5 98 18 114/72 (86) 97 03/21/20 09:46 100 110/70 03/21/20 09:00 Room Air 03/21/20 09:00 100 110/70 03/21/20 08:00 97.3 100 18 110/70 (83) 96 03/21/20 04:00 97.0 106 17 104/77 (86) 95 03/21/20 00:00 97.0 112 18 123/77 (92) 98 03/20/20 21:39 Room Air 03/20/20 21:14 111 108/71 03/20/20 20:00 97.2 114 18 104/71 (82) 97 03/20/20 16:00 97.7 111 18 108/71 (83) 97 Height (Feet): 5 Height (Inches): 7.00 Weight (Pounds): 171 HEAD AND NECK: No JVD. LUNGS: Decreased breath sounds. CARDIOVASCULAR: Shows regular S1 and S2. Tachycardic. ABDOMEN: Soft. The G-tube is intact. EXTREMITIES: No pitting edema. Laboratory Tests Test 03/20/20 18:10 8/24/20 06:05 POC Whole Blood Glucose Pending White Blood Count 9.5 K/UL (4.8-10.8) Red Blood Count 4.29 M/UL (4.70-6.10) L Hemoglobin 8.9 G/DL (14.2-18.0) L Hematocrit 29.3 % (42.0-52.0) L Mean Corpuscular Volume 68 FL (80-99) L Mean Corpuscular Hemoglobin 20.7 PG (27.0-31.0) L Mean Corpuscular Hemoglobin Concent 30.3 G/DL (32.0-36.0) L Red Cell Distribution Width 13.2 % (11.6-14.8) Platelet Count 279 K/UL (150-450) Mean Platelet Volume 8.6 FL (6.5-10.1) Neutrophils (%) (Auto) 68.0 % (45.0-75.0) Lymphocytes (%) (Auto) 19.9 % (20.0-45.0) L Monocytes (%) (Auto) 6.5 % (1.0-10.0) Eosinophils (%) (Auto) 5.0 % (0.0-3.0) H Basophils (%) (Auto) 0.6 % (0.0-2.0) Sodium Level 155 MMOL/L (136-145) H Potassium Level 3.8 MMOL/L (3.5-5.1) Chloride Level 115 MMOL/L (98-107) H Carbon Dioxide Level 26 MMOL/L (21-32) Anion Gap 14 mmol/L (5-15) Blood Urea Nitrogen 20 mg/dL (7-18) H Creatinine 1.3 MG/DL (0.55-1.30) Estimat Glomerular Filtration Rate 55.9 mL/min (>60) Glucose Level 181 MG/DL (74-106) H Calcium Level 9.7 MG/DL (8.5-10.1) Phosphorus Level 3.3 MG/DL (2.5-4.9) Magnesium Level 2.2 MG/DL (1.8-2.4) Total Bilirubin 0.4 MG/DL (0.2-1.0) Aspartate Amino Transf (AST/SGOT) 17 U/L (15-37) Alanine Aminotransferase (ALT/SGPT) 12 U/L (12-78) Alkaline Phosphatase 86 U/L (46-116) C-Reactive Protein, Quantitative 11.8 mg/dL (0.00-0.90) H Total Protein 8.4 G/DL (6.4-8.2) H Albumin 2.4 G/DL (3.4-5.0) L Globulin 6.0 g/dL Albumin/Globulin Ratio 0.4 (1.0-2.7) L Current Medications Medications (Trade) Dose Ordered Sig/Monalisa Route PRN Reason Start Time Stop Time Status Last Admin Dose Admin Acetaminophen (Tylenol) 325 mg Q4H PRN GT Mild Pain(Pain Scale1-3)/fever 03/16/20 09:00 04/12/20 08:59 Ascorbic Acid (Vitamin C) 500 mg TWICE A DAY GT 03/16/20 09:00 04/12/20 17:59 03/21/20 09:45 Bisacodyl (Dulcolax) 10 mg BID PRN RECTAL Constipation 03/19/20 03:15 06/17/20 03:14 03/19/20 17:16 Dextrose 1,000 ml @ 75 mls/hr [id number] IV 03/16/20 10:00 04/15/20 09:59 03/21/20 09:56 Dextrose (Dextrose 50%) 25 ml Q30M PRN IV Hypoglycemia 03/16/20 09:00 06/11/20 08:59 Dextrose (Dextrose 50%) 50 ml Q30M PRN IV Hypoglycemia 03/16/20 09:00 06/11/20 08:59 Docusate Sodium (Colace) 100 mg BID GT 03/19/20 09:00 04/18/20 08:59 03/21/20 09:47 Finasteride (Proscar) 5 mg DAILY ORAL 03/16/20 13:00 06/12/20 12:59 03/21/20 09:46 Heparin Sodium (Porcine) (Heparin 5000 units/ml) 5,000 units EVERY 12 HOURS SUBQ 03/16/20 09:00 04/27/20 20:59 03/21/20 09:50 Insulin Aspart (NovoLOG) Q6HR SUBQ 03/16/20 12:00 06/11/20 05:59 03/21/20 13:44 Lansoprazole (Prevacid) 30 mg Q12HR GT 03/16/20 09:30 04/13/20 09:29 03/21/20 09:45 Levetiracetam (Keppra) 1,000 mg Q12HR GT 03/16/20 09:00 04/27/20 12:59 03/21/20 09:47 Lorazepam (Ativan 2mg/ml 1ml) 1 mg Q4H PRN IV Agitation 03/19/20 08:00 03/26/20 07:59 03/19/20 09:28 Magnesium Hydroxide (Mom) 30 ml TID PRN GT Constipation 03/19/20 04:15 04/18/20 04:14 03/19/20 09:27 Meropenem 1 gm/ Sodium Chloride 55 ml @ 110 mls/hr Q8HR IVPB 03/20/20 15:00 03/22/20 23:00 03/21/20 13:23 Metoprolol Tartrate (Lopressor) 25 mg Q12HR GT 03/16/20 09:00 06/11/20 20:59 03/20/20 21:14 Ondansetron HCl (Zofran) 4 mg Q6H PRN GT Nausea & Vomiting 03/16/20 09:00 04/12/20 08:59 Potassium Chloride (K-Dur) 40 meq TWICE A DAY GT 03/19/20 18:00 06/15/20 08:59 03/21/20 09:46 Risperidone (RisperDAL) 1 mg BID GT 03/19/20 18:00 04/27/20 20:59 03/21/20 09:46 Dilma Chand M.D. Mar 21, 2020 15:18
[2020-03-21 16:00] VITALS: BP 120/78
--- NOTE | 2020-03-22 10:41 | Discharge Summary ---
Discharge Summary Discharge Summary _ DATE OF ADMISSION: 03/12/2020 DATE OF DISCHARGE: 03/21/2020 . DISCHARGED BY: Dr Johnson REASON FOR ADMISSION: 64 years old male, resident of senior care facility, with PMH of CVA, seizure disorder, cerebral palsy, COPD, hypertension, dysphagia, feeding by G- tube, schizophrenia, was sent for evaluation due to tachycardia and hyperglycemia. Patient had confirmed COVID infection prior, about 3 months ago. COVID test x 2 in November was negative , the last time he was hospitalized. Per longterm staff, blood sugar was above 400. Patient received 12 units of insulin , and repeat blood glucose level was 350. Paramedics were called. Upon arrival patient was coughing and was tachycardic with heart rate in 130s. It appeared to be sinus tachycardia , according to paramedics. Patient normally on 2 L of oxygen via nasal cannula. Pulse oximetry was stable. Upon evaluation in emergency department patient was tachycardic with heart rate 134 , pulse oximetry on 2 L of oxygen was 96% . Patient was afebrile . Laboratory work-up revealed leukocytosis WBC 13.9, hemoglobin 11.3, hematocrit 36.5 ,platelet count 411. Sodium 144, potassium 3.6 ,anion gap 12. BUN 45, creatinine 2.0. Glucose 328. Lactic acid 2.7. Ferritin 689. LDH 230. D-dimer 1.61 Stable LFT. Troponin negative, pro BNP 791 . EKG revealed sinus tachycardia. Albumin 2.6. Rapid COVID 19 was negative. Chest x-ray revealed low lung volumes with bronchovascular crowding. Otherwise no acute cardiopulmonary disease. Urinalysis revealed pyuria , moderate bacteria, +1 protein. Pulmonary consult was requested to assist in management of this patient. CONSULTANTS: occasional babysitter Dr. Santos pulmonary Dr. Gracia ID specialist Dr. Vang mannequin refinisher Dr. Lake surgery Dr. Bolaños psychiatrist Dr. Escudero [facility] COURSE: Patient initially admitted to telemetry floor and started on empiric antibiotics. Supplemental oxygen provided and titrated to keep pulse oximetry above 92%. Pulmonary toilet provided. DVT and GI prophylaxis provided. G-tube feeding formula with goal rate and protein supplements provided as per registered dietitian recommendation. Venous duplex bilateral lower extremity revealed no evidence of acute DVT. Blood sugar was managed with sliding scale of insulin. Blood sugar improved. Hemoglobin A1c 7.8. Seizure precaution maintained. Keppra continued. SNF medication continued. Blood cultures were negative. Urine culture revealed E. coli ESBL. Antibiotic regimen optimized as per ID specialist recommendation. Rapid COVID-19 antigen was negative. Patient has a history of COVID infection 3 months ago. Leukocytosis resolved. No fevers. Patient completed treatment for E. coli ESBL while in the hospital. Patient initially had sinus tachycardia . Surgical Technology Instructor followed. Serial troponin were negative. EKG revealed no acute ischemic changes. Patein was ruled out for acute myocardial infarction. Echocardiogram revealed preserved ejection fraction of 65%. Sinus tachycardia , which was due to sepsis, anemia , lactic acidosis, resolved. Renal parameters and electrolytes were closely monitored, electrolytes corrected as needed , and nephrotoxic's were avoided. Patient with a history of chronic kidney disease. Creatinine from 2.0 down to 1.3. Acute renal failure was most likely due to dehydration . Free water via G-tube for hypernatremia provided. Potassium was replaced. Albumin boluses provided , and blood pressure medication adjusted as patient initially was hypotensive. Blood pressure was managed with beta mary carmen. Supportive care provided. Patient clinically stabilized and was ready for discharge back to senior care facility for continuation of care. FINAL DIAGNOSES: Sepsis UTI Acute kidney injury Hypernatremia Dehydration Electrolyte imbalance Diabetes mellitus [id number] COPD Aspiration risk Suspected COVID-19 infection -ruled out Seizure disorder Schizophrenia BPH Dysphagia , feeding by G-tube Parkinson disease Hypertension Sinus tachycardia Cerebral palsy Protein calorie malnutrition History of CVA DISCHARGE MEDICATIONS: See Medication Reconciliation list. DISCHARGE INSTRUCTIONS: Patient was discharged to the senior care facility. Follow up with medical doctor at the facility. I have been assigned to dictate discharge summary for this account. Lia Desir NP Mar 22, 2020 10:41
--- NOTE | 2020-03-23 10:00 | Consultation ---
DATE OF CONSULTATION: 03/21/2020 PSYCHOTHERAPY CONSULTATION TREATING ATTENDING: Donaldo Johnson DO HISTORY OF PRESENT ILLNESS: The patient is a male patient. He is 64 years old. This patient was brought into the hospital initially for tachycardia and hypercholesterolemia. The patient is confused and disorganized and has poor frustration tolerance, and for these reasons, he was referred for psychotherapeutic services. The patient is a very poor historian. He remains altered in his mental status. He has disorganized thought process. The patient has no logical or viable plan for self-care and safety. There is no indication of suicidal or homicidal thoughts of ideation for this patient. The patient has a family history of schizophrenia as well. The patient is interested in medical treatment. PAST MEDICAL HISTORY: History of renal disease, seizure disorder, diabetes, sepsis. ALLERGIES: The patient has no known drug allergies. SUBSTANCE ABUSE HISTORY: There is no indication of alcohol use or illicit substance use. PSYCHIATRIC HISTORY: He does have a history of paranoid schizophrenia and has been treated with psychotropic medications in the past. SOCIAL HISTORY: This is a 64-year-old male patient. He is from [facility], financially sustained through [employer]. MENTAL STATUS EXAMINATION: He is alert and oriented to place. Mood is dysphoric. Affect blunted. Thought process is disorganized. At this time, the patient is a very poor historian, and significant amount of information was gathered by the extensive review of records. DIAGNOSES: 1. Paranoid schizophrenia. 2. Sepsis. 3. Renal disease. 4. Tachycardia. 5. Diabetes. 6. Psychosocial stressors are moderate. STRENGTHS: The patient is from a longterm facility. WEAKNESSES: The patient is altered in his mental status at this time. PLAN: I assessed this patient and provided him with reality orientation. person, place, time, and situation. At this time, the patient is a poor historian, slightly disorganized, confused, and helpless. The patient has no logical or viable plan for self-care at this time. Plan is to maintain medication compliance with positive coping skills in the future. This clinician has reviewed the patient's chart and discussed with treatment team. the patient is a poor historian. This clinician has reviewed the patient's chart and discussed treatment with treatment team. Psychotherapy services 45 minutes. Gordo Adams PsyD. DR: ADINA JOB#: [id number] CC:
== END 2020-03-21 18:45 | DRG 871 ==
LOC: EDBD 19:27 → EMR 19:54 → 2E 20:11 → EDBEDREQ 20:50 → 4E 03-16 01:06
DX: A41.9 Sepsis, unspecified organism (principal); J96.90 Respiratory failure, unspecified, unspecified whether with hypoxia or hypercapnia; N17.9 Acute kidney failure, unspecified; N39.0 Urinary tract infection, site not specified; E87.0 Hyperosmolality and hypernatremia; Z43.1 Encounter for attention to gastrostomy; E46 Unspecified protein-calorie malnutrition; F20.0 Paranoid schizophrenia; E27.40 Unspecified adrenocortical insufficiency; R65.20 Severe sepsis without septic shock; E11.65 Type 2 diabetes mellitus with hyperglycemia; Z86.19 Personal history of other infectious and parasitic diseases; K21.9 Gastro-esophageal reflux disease without esophagitis; I10 Essential (primary) hypertension; G80.9 Cerebral palsy, unspecified; Z79.4 Long term (current) use of insulin; E86.0 Dehydration; J44.9 Chronic obstructive pulmonary disease, unspecified; Z86.73 Personal history of transient ischemic attack (TIA), and cerebral infarction without residual deficits; Z20.828 Contact with and (suspected) exposure to other viral communicable diseases; R13.10 Dysphagia, unspecified; G40.909 Epilepsy, unspecified, not intractable, without status epilepticus; G20 Parkinson's disease; F09 Unspecified mental disorder due to known physiological condition; N40.1 Benign prostatic hyperplasia with lower urinary tract symptoms; R33.8 Other retention of urine
CPT/HCPCS: 36415; 71045; 74018; 80048; 80053; 80061; 80202; 81003; 82533; 82607; 82728; 82746; 82962; 82977; 83036; 83540; 83550; 83605; 83615; 83735; 83880; 84100; 84439; 84443; 84484; 84550; 85025; 85379; 85610; 85730; 86140; 87040; 87081; 87086; 87181; 93005; 93306; 93970; 94664; 96361; 96365; 99285; J1815; J7030; J8499; U0002